=== PATIENT | female | born 1950 | race Caucasian/White ===

== ENCOUNTER 2017-05-28 10:41 | Day surgery (SDC) | payer MEDICARE, SELFPAY ==
[2017-05-28 11:19] VITALS: BP 169/75; PULSE 89; RESP 20; TEMP 37.3; O2SAT 96; BMI 43.7
[2017-05-28 11:46] LABS: Bedside Glucose 159 mg/dL (70-110)
--- NOTE | 2017-05-28 13:00 | COLBX_PTH ---
PATIENT: SAEID URBINA LOC: EN U#:[id number] AGE/SX: 66/F ROOM: RE05/28/[address]: Dr. Iona Azevedo MD : [id number] BED: DIS: 05/28/2017 SPEC #: [id number] RECD: 05/28/17 15:38 STATUS: CRYSTAL REMaykel #: [id number] TYLER: 05/28/17 13:[address]: Iona Azevedo DEPT: SURGICAL PATHOLOGY RECD BY: Yomi Carlin ENTERED: 05/29/17 09:26 SP TYPE: COLON BX OTHR DR: Dr. Yasemin Carney MD Tissues: Cecum, NOS Procedures: Surgery Specimen Level IV HEADER OPERATION: Colonoscopy PRE-OP DIAGNOSIS: Screening TISSUE SUBMITTED: Cecum polyp MICROSCOPIC DIAGNOSIS Cecal polyp, biopsy: Fragments of tubular adenoma. Fecal debris. AM:aniket 05/30/17 MICROSCOPIC DESCRIPTION Slides are reviewed. GROSS DESCRIPTION Received in fixative is one container labeled with the patient's name and designated cecal polyp. The specimen consists of multiple irregular fragments of light rodriguez soft tissue that in aggregate measure 1.5 x 0.5 x 0.1 cm. The specimen is totally submitted in one cassette. / AM:aniket 05/29/17 TC:5 CPT: 11209
[2017-05-28 13:31] VITALS: BP 131/66; BP 169/75; PULSE 97; RESP 18; TEMP 36.1; O2SAT 99
[2017-05-28 13:35] VITALS: BP 145/76; BP 169/75; PULSE 94; RESP 16; O2SAT 98
[2017-05-28 13:40] VITALS: BP 138/70; BP 169/75; PULSE 91; RESP 16; O2SAT 97
[2017-05-28 13:42] VITALS: BP 124/80; BP 169/75; PULSE 88; RESP 16; TEMP 36.8; O2SAT 99
[2017-05-28 14:27] VITALS: BP 169/75
--- NOTE | 2017-05-28 15:57 | OP.PCM_ITS ---
Report of Operation Date of Procedure: 05/28/17 Pre-Operative Diagnosis: history of colon polyps, family history of colon cancer in two first degree relatives (father and brother) (last colonoscopy 2012 ) Post-Operative Diagnosis: cecal polyp - pathology pending Surgery/Procedure Performed:: colonoscopy with polypectomy using hot loop cautery device Description of Surgical Findings:: poor colon cleansing preparation, tortuous colon, cecal polyp - 1 cm, diverticulosis, hemorrhoidal disease Type of Anesthesia:: MAC Anesthesiologist: El Cook Specimen's removed: cecal polyp Estimated Blood Loss (mL): minimal Fluids Replaced: see anesthesia note Description of Procedure: After informed consent was given, the patient was brought to the endoscopy suite and placed in the supine position. Appropriate time out protocol was followed. Appropriate cardiac, blood pressure, and pulse oximetry monitoring was placed. After stable vital signs were noted, the patient was given intravenous conscious sedation by the anesthesia provider. The patient was then placed in the left lateral decubitis position. The colonoscope was lubricated and carefully inserted into the patient?s anus. It was then advanced into the rectum, then into the sigmoid colon, then into the left descending colon, past the splenic flexure, into the transverse colon, past the hepatic flexure, then down into the right descending colon and into the cecum. The cecum was identified by: confluence of the tenae coli, identification of the ileocecal valve and appendiceal orifice. There was a semi-pedunculated polyp in the cecum which was removed completely using hot loop cautery device. It was about 1 cm in size. Of note, the colon cleansing preparation was poor. Despite copious lavage and aspiration of retained fecal material which took some time, polyps < 1 cm may be missed. Patient had a redundant, tortuous colon and is morbidly obese, also making reaching the cecum difficult, this required patient repositioning, pressure applied to the left lower quadrant of the abdomen and increased sedation. No further polyps were noted in the colon. There was no evidence of extrinsic compression and no inflammatory changes were noted. No intraluminal obstructing lesions, no strictures, and no ulcers were noted. Retroflex view in the rectum revealed no lesions in the rectal vault except for hemorrhoids. The colonoscope was removed intact. Patient tolerated procedure well. - Complications none noted
== END 2017-05-28 14:29 | disposition home or self-care (01) ==
LOC: EN 10:42 → ACINP 10:44
PROVIDERS: Family Provider Internal Medicine; PCP Internal Medicine; Visit Provider Surgery
PROC: 0DJD8ZZ Inspection of Lower Intestinal Tract, Via Natural or Artificial Opening Endoscopic (ICD-10-PCS; CPT 45378; principal; 2017-05-28 12:25)
DX: Z12.11 Encounter for screening for malignant neoplasm of colon (principal); D12.0 Benign neoplasm of cecum; K57.30 Diverticulosis of large intestine without perforation or abscess without bleeding; K64.9 Unspecified hemorrhoids; Q43.8 Other specified congenital malformations of intestine; Z86.010 Personal history of colon polyps; Z80.0 Family history of malignant neoplasm of digestive organs; E11.22 Type 2 diabetes mellitus with diabetic chronic kidney disease; I13.0 Hypertensive heart and chronic kidney disease with heart failure and stage 1 through stage 4 chronic kidney disease, or unspecified chronic kidney disease; N18.3 Chronic kidney disease, stage 3 (moderate); I50.9 Heart failure, unspecified; E66.01 Morbid (severe) obesity due to excess calories; E78.00 Pure hypercholesterolemia, unspecified; G47.33 Obstructive sleep apnea (adult) (pediatric); M06.9 Rheumatoid arthritis, unspecified; J44.9 Chronic obstructive pulmonary disease, unspecified; G43.909 Migraine, unspecified, not intractable, without status migrainosus; K21.9 Gastro-esophageal reflux disease without esophagitis; N28.1 Cyst of kidney, acquired; Z87.19 Personal history of other diseases of the digestive system; Z86.2 Personal history of diseases of the blood and blood-forming organs and certain disorders involving the immune mechanism; Z85.3 Personal history of malignant neoplasm of breast; Z92.3 Personal history of irradiation; Z90.49 Acquired absence of other specified parts of digestive tract; Z79.84 Long term (current) use of oral hypoglycemic drugs; Z79.82 Long term (current) use of aspirin; Z79.899 Other long term (current) drug therapy
CPT/HCPCS: 45384; 82962; 88305; J7120

== ENCOUNTER → 2017-05-31 12:35 | Outpatient (CLI) | payer MEDICARE, SELFPAY ==
[2017-05-31 13:45] LABS: Amphetamine Urine VISTA NEGATIVE (<1000 ng/mL); Barbiturate Urine VISTA NEGATIVE (< 200 ng/mL); Benzodiazepine Urine VISTA NEGATIVE (< 200 ng/mL); Cocaine Urine VISTA NEGATIVE (< 300 ng/mL); Ecstacy Urine VISTA NEGATIVE (< 500 ng/mL); Methadone Urine VISTA NEGATIVE (< 300 ng/mL); PCP Urine VISTA NEGATIVE (< 25 ng/mL); THC Urine VISTA NEGATIVE (< 50 ng/mL); Vista UDS pH Range 5
== END ==
PROVIDERS: Family Provider Internal Medicine; PCP Internal Medicine; Visit Provider Anesthesiology Pain Medicine
DX: F11.20 Opioid dependence, uncomplicated (principal)
CPT/HCPCS: 80307

== ENCOUNTER → 2017-06-05 15:07 | Outpatient (CLI) | payer MEDICARE, SELFPAY ==
[2017-06-05 18:10] LABS: Absolute Lymphocyte Count 1.25 X10^3/ul (0.83-4.51); Absolute Neutrophil Count 4.9 X10^3/uL (2.0-7.7); Basophil# 0.02 X10^3/uL; Basophil% 0.3 % (0-1); Eosinophil# 0.05 X10^3/uL; Eosinophils% 0.7 % (0-5); Hematocrit 39.6 % (37-47); Hemoglobin 12.9 g/dl (12.0-15.0); Lymphocyte # 1.25 X10^3/ul (4.0); Lymphocyte % 17.2 % (19-41); Mean Corp Hgb Conc 32.6 g/gl (32-36); Mean Corpuscular Hgb 30.6 pg (27.0-32.0); Mean Corpuscular Volume 93.8 fL (81-99); Mean Platelet Vol. 11.6 fl (6.2-12.0); Monocyte# 1.03 X10^3/uL; Monocyte% 14.2 % (0-10); Neutrophil # 4.86 X10^3/uL (2.7-7.7); Neutrophil % 66.8 % (47-70); Platelet Count 225 K/mm3 (150-450); RBC Distribution Width CV 13.4 % (11.6-14.6); RBC Distribution Width SD 44.7 fl (35.1-43.9); Red Blood Count 4.22 M/mm3 (4.2-5.4); White Blood Count 7.3 K/mm3 (4.4-11.0)
[2017-06-05 18:11] LABS: POSITIVE COUNT NO; POSITIVE DIFFERENTIAL NO; POSITIVE MORPHOLOGY NO
[2017-06-05 18:25] LABS: ALB/GLOB Ratio 1.1 RATIO (0.9-2.4); AST(SGOT) 23 U/L (15-37); Alanine Aminotransfer ALT/SGPT 26 U/L (13-56); Albumin, Serum 3.6 g/dL (3.2-5.0); Alkaline Phosphatase 91 U/L (45-117); Anion Gap 7 (5-15); BUN 25 mg/dL (7-18); BUN/Creat Ratio 19.8 RATIO (10-20); Calcium,Total 9.8 mg/dL (8.5-10.1); Chloride 108 mmol/L (98-107); Creatinine, Serum 1.26 mg/dL (0.55-1.02); EST Glomerular Filtration Rate 45 mL/min (>60); Est Glom Filt Rate - Afr Amer 54 mL/min (>60); Globulin 3.4 g/dL (2.2-4.2); Glucose 105 mg/dL (74-106); Potassium 4.2 mmol/L (3.5-5.1); Sodium Level 143 mmol/L (136-145)
== END ==
PROVIDERS: Family Provider Internal Medicine; PCP Internal Medicine; Visit Provider Internal Medicine Rheumatology
DX: M06.4 Inflammatory polyarthropathy (principal); Z79.899 Other long term (current) drug therapy; M79.7 Fibromyalgia; M15.9 Polyosteoarthritis, unspecified; M85.9 Disorder of bone density and structure, unspecified; M47.897 Other spondylosis, lumbosacral region; N18.9 Chronic kidney disease, unspecified; Z85.3 Personal history of malignant neoplasm of breast
CPT/HCPCS: 36415; 80053; 85025

== ENCOUNTER → 2017-07-25 12:51 | Outpatient (CLI) | payer MEDICARE, SELFPAY ==
--- NOTE | 2017-07-25 13:07 | MRI_ITS ---
STUDY: MRI LUMBAR SPINE WITHOUT CONTRAST REASON FOR EXAM: Female, 66 years old. Lower back pain TECHNIQUE: Standardized fat and water weighted pulse sequences were obtained in the sagittal and axial planes. COMPARISON: None FINDINGS: T12-L1: Normal endplates. Normal disc height, hydration and morphology. Normal bilateral facet joints. Normal central canal and bilateral lateral recesses. Normal bilateral intervertebral neural foramina. Normal lumbar lordosis. There is no substantial scoliosis. Normal conus medullaris that terminates at the L1 level. L1-2: Normal endplates. Normal disc height, hydration and morphology. Normal bilateral facet joints. Normal central canal and bilateral lateral recesses. Normal bilateral intervertebral neural foramina. L2-3: Endplate spondylosis. Decreased disc height and moderate circumferential disc bulge. Degenerative changes of the bilateral facet joints. Moderate narrowing of the central canal and bilateral intervertebral neural foramina. L3-4: Endplate spondylosis. Decreased disc height and moderate circumferential disc bulge. Degenerative changes of the bilateral facet joints. Moderate narrowing of the central canal and bilateral intervertebral neural foramina. L4-5: Endplate spondylosis. Decreased disc height and large circumferential disc bulge. Degenerative changes of the bilateral facet joints. 7 mm spondylolisthesis. Severe narrowing of the central canal and bilateral intervertebral neural foramina. L5-S1: Endplate spondylosis. Decreased disc height and moderate circumferential disc bulge. Degenerative changes of the bilateral facet joints. Mild narrowing of the central canal and bilateral intervertebral neural foramina. Normal visualized sacral ala. There are multiple bilateral parapelvic renal cysts. MRI/Spine Lumbar (Routine) IMPRESSION: Multilevel degenerative changes, as described above. Electronically Signed: Dg Marroquin MD at 7:52 EDT Tel , Service support ,
== END ==
PROVIDERS: Family Provider Internal Medicine; PCP Internal Medicine; Visit Provider Anesthesiology Pain Medicine
DX: M54.5 Low back pain (principal); M79.606 Pain in leg, unspecified
CPT/HCPCS: 72148

== ENCOUNTER → 2017-08-24 15:45 | Outpatient (CLI) | payer MEDICARE, SELFPAY ==
[2017-08-24 17:41] LABS: Absolute Lymphocyte Count 1.07 X10^3/ul (0.83-4.51); Absolute Neutrophil Count 8.4 X10^3/uL (2.0-7.7); Basophil# 0.01 X10^3/uL; Basophil% 0.1 % (0-1); Hematocrit 42.5 % (37-47); Hemoglobin 13.7 g/dl (12.0-15.0); Lymphocyte # 1.07 X10^3/ul (4.0); Lymphocyte % 10.2 % (19-41); Mean Corp Hgb Conc 32.2 g/gl (32-36); Mean Corpuscular Hgb 29.8 pg (27.0-32.0); Mean Corpuscular Volume 92.6 fL (81-99); Mean Platelet Vol. 11.1 fl (6.2-12.0); Monocyte# 0.91 X10^3/uL; Monocyte% 8.7 % (0-10); Neutrophil # 8.39 X10^3/uL (2.7-7.7); Neutrophil % 80.4 % (47-70); Platelet Count 253 K/mm3 (150-450); RBC Distribution Width CV 12.9 % (11.6-14.6); RBC Distribution Width SD 43.3 fl (35.1-43.9); Red Blood Count 4.59 M/mm3 (4.2-5.4); White Blood Count 10.4 K/mm3 (4.4-11.0)
[2017-08-24 17:45] LABS: POSITIVE COUNT NO; POSITIVE DIFFERENTIAL NO; POSITIVE MORPHOLOGY NO
[2017-08-24 17:57] LABS: AST(SGOT) 19 U/L (15-37); Alanine Aminotransfer ALT/SGPT 28 U/L (13-56); Alkaline Phosphatase 92 U/L (45-117); Anion Gap 8 (5-15); BUN 25 mg/dL (7-18); BUN/Creat Ratio 19.8 RATIO (10-20); Calcium,Total 10.7 mg/dL (8.5-10.1); Chloride 104 mmol/L (98-107); Creatinine, Serum 1.26 mg/dL (0.55-1.02); EST Glomerular Filtration Rate 45 mL/min (>60); Est Glom Filt Rate - Afr Amer 54 mL/min (>60); Globulin 3.9 g/dL (2.2-4.2); Glucose 128 mg/dL (74-106); Potassium 4.4 mmol/L (3.5-5.1); Protein, Total 7.9 g/dL (6.4-8.2); Sodium Level 140 mmol/L (136-145)
== END ==
PROVIDERS: Family Provider Internal Medicine; PCP Internal Medicine; Visit Provider Internal Medicine Rheumatology
DX: M06.4 Inflammatory polyarthropathy (principal); Z79.899 Other long term (current) drug therapy; M79.7 Fibromyalgia; M15.9 Polyosteoarthritis, unspecified; M85.9 Disorder of bone density and structure, unspecified; M47.897 Other spondylosis, lumbosacral region; N18.9 Chronic kidney disease, unspecified; Z85.3 Personal history of malignant neoplasm of breast
CPT/HCPCS: 36415; 80053; 85025

== ENCOUNTER → 2017-09-10 13:05 | Outpatient (CLI) | payer MEDICARE, SELFPAY ==
[2017-09-10 14:07] LABS: ALB/GLOB Ratio 0.9 RATIO (0.9-2.4); AST(SGOT) 18 U/L (15-37); Alanine Aminotransfer ALT/SGPT 23 U/L (13-56); Albumin, Serum 3.5 g/dL (3.2-5.0); Alkaline Phosphatase 67 U/L (45-117); Anion Gap 5 (5-15); BUN 30 mg/dL (7-18); BUN/Creat Ratio 19.7 RATIO (10-20); Calcium,Total 9.6 mg/dL (8.5-10.1); Chloride 107 mmol/L (98-107); Creatinine, Serum 1.52 mg/dL (0.55-1.02); EST Glomerular Filtration Rate 36 mL/min (>60); Est Glom Filt Rate - Afr Amer 44 mL/min (>60); Globulin 3.7 g/dL (2.2-4.2); Glucose 98 mg/dL (74-106); Potassium 4.4 mmol/L (3.5-5.1); Protein, Total 7.2 g/dL (6.4-8.2); Sodium Level 140 mmol/L (136-145)
[2017-09-10 14:11] LABS: PTHIN 114.8 pg/mL (18.4-80.1)
== END ==
PROVIDERS: Family Provider Internal Medicine; PCP Internal Medicine; Visit Provider Internal Medicine Rheumatology
DX: M06.4 Inflammatory polyarthropathy (principal); Z79.899 Other long term (current) drug therapy; M79.7 Fibromyalgia; M15.9 Polyosteoarthritis, unspecified; M85.9 Disorder of bone density and structure, unspecified; M47.897 Other spondylosis, lumbosacral region; N18.9 Chronic kidney disease, unspecified; Z85.3 Personal history of malignant neoplasm of breast
CPT/HCPCS: 36415; 80053; 83970

== ENCOUNTER → 2017-10-02 14:12 | Outpatient (CLI) | payer MEDICARE, SELFPAY | PROVIDERS: Family Provider Internal Medicine; PCP Internal Medicine; Visit Provider Orthopaedic Surgery | DX: M54.5 Low back pain (principal) | CPT/HCPCS: 72110 ==

== ENCOUNTER → 2017-10-17 16:34 | Outpatient (CLI) | payer MEDICARE, SELFPAY ==
[2017-10-17 17:27] LABS: Absolute Lymphocyte Count 1.38 X10^3/ul (0.83-4.51); Absolute Neutrophil Count 3.5 X10^3/uL (2.0-7.7); Basophil# 0.02 X10^3/uL; Basophil% 0.3 % (0-1); Eosinophil# 0.09 X10^3/uL; Eosinophils% 1.5 % (0-5); Hematocrit 42.2 % (37-47); Hemoglobin 13.7 g/dl (12.0-15.0); Lymphocyte # 1.38 X10^3/ul (4.0); Lymphocyte % 23.4 % (19-41); Mean Corp Hgb Conc 32.5 g/gl (32-36); Mean Corpuscular Hgb 30.2 pg (27.0-32.0); Mean Platelet Vol. 11.4 fl (6.2-12.0); Monocyte# 0.85 X10^3/uL; Monocyte% 14.4 % (0-10); Neutrophil % 59.4 % (47-70); Platelet Count 222 K/mm3 (150-450); RBC Distribution Width CV 13.4 % (11.6-14.6); RBC Distribution Width SD 44.2 fl (35.1-43.9); Red Blood Count 4.54 M/mm3 (4.2-5.4); White Blood Count 5.9 K/mm3 (4.4-11.0)
[2017-10-17 17:31] LABS: POSITIVE COUNT NO; POSITIVE DIFFERENTIAL NO; POSITIVE MORPHOLOGY NO
[2017-10-17 18:23] LABS: AST(SGOT) 27 U/L (15-37); Alanine Aminotransfer ALT/SGPT 35 U/L (13-56); Albumin, Serum 3.6 g/dL (3.2-5.0); Alkaline Phosphatase 82 U/L (45-117); Anion Gap 7 (5-15); BUN 21 mg/dL (7-18); BUN/Creat Ratio 14.8 RATIO (10-20); Calcium,Total 9.8 mg/dL (8.5-10.1); Chloride 106 mmol/L (98-107); Creatinine, Serum 1.42 mg/dL (0.55-1.02); EST Glomerular Filtration Rate 39 mL/min (>60); Est Glom Filt Rate - Afr Amer 47 mL/min (>60); Globulin 3.5 g/dL (2.2-4.2); Glucose 100 mg/dL (74-106); Potassium 3.8 mmol/L (3.5-5.1); Protein, Total 7.1 g/dL (6.4-8.2); Sodium Level 140 mmol/L (136-145)
== END ==
PROVIDERS: Family Provider Internal Medicine; PCP Internal Medicine; Visit Provider Internal Medicine Rheumatology
DX: M06.4 Inflammatory polyarthropathy (principal); Z79.899 Other long term (current) drug therapy; M79.7 Fibromyalgia; M15.9 Polyosteoarthritis, unspecified; M85.9 Disorder of bone density and structure, unspecified; M47.897 Other spondylosis, lumbosacral region; N18.9 Chronic kidney disease, unspecified; Z85.3 Personal history of malignant neoplasm of breast
CPT/HCPCS: 36415; 80053; 85025

== ENCOUNTER 2017-12-26 11:00 | Outpatient (RCR) | payer MEDICARE, SELFPAY ==
--- NOTE | 2017-10-11 13:10 | HP.PTEVAL_ITS ---
Patient's Visit Information SAEID URBINA is a 66 year old F referred to Physical Therapy by Mary Victoria with a diagnosis of LUMBAR SPINAL STENOSIS. Date of Evaluation: 10/11/17 Physical Therapist: Arina Bocanegra - Visit Plan Frequency: 2-3x /Week Duration: 4-6 Weeks Plan: PATIENT REPORTS SHE THINKS SHE CAN MANAGE 2X'S A WEEK RIGHT NOW. AQUATIC THERAPY FOR PAIN RELEIF, POSTURE CORRECTION/STRENGTHENING, INSTRUCTION IN APPROPRIATE BODY MECHANICS AND ACTIVITY MODIFICATIONS. DLS STARTING WITH A NEUTRAL SPINE PROGRESSING ROM TOLERATED. HAKAN LE ROM, STRETCHING AND STRENGTHENING. HEP INSTRUCTION. - Subjective Subjective: Work/Leisure: RETIRED. Disability: NO. Present symptoms: LOW BACK PAIN. HAKAN LE WEAKNESS. Present since: YEARS. Pain Scale: WORST 10/10, LEAST 0/10. Currently: 05/15. Commenced as a result of: ARTHRITIS. Symptoms at onset: BACK. Worse: TWISTING, STANDING UP REALLY STRAIGHT, WALKING, STANDING, PUSHING ON BACK, TRYING TO SLEEP IN THE BED. Better: RECLINER, HEATING PAD, HANGING IN DEEP END IN POOL IN PAST, MORPHINE. Disturbed sleep: YES. Previous history/Previous treatment: POOL THERAPY, LAND PT, PAIN MGMT INJECTIONS WITH ONE PENDING NEXT SUNDAY (SHOT 6-8 WEEKS AGO WTIH ABOUT ONE WEEK OF RELEIF). PATEINT REPORTS THE INSURANCE IS CONSIDERING RADIOFREQUENCY ABLATION. NO BACK SURGERY. CONSULT WITH DR VICTORIA - FOLLOW UP IN TWO MONTHS. PATIENT REPORTS DR. VICTORIA IS CONSIDERING RECOMMENDING SURGERY. SHE WANTS HER TO TRY PT AND WANTS HER TO LOSE MORE WEIGHT. PATIENT REPORTS SHE HAS LOST 20 LBS IN 6 MONTHS. Coughing/sneezing/straining: POSITIVE. Gait: INDEP GAIT SHORT DISTANCES WITH ROLLATOR OR CANE. HAS TO LEAN FORWARD. Difficulty initiating urinatin: NO. Accidents: NO FALLS. NO MAJOR ACCIDENTS. Unexplained weight loss: NO. Imaging: SEE [facility] EMR FOR RECENT LUMBAR X-RAYS AND MRI. PMH/Recent major surgery: SEE RECENT HISTORY AND PHYSICAL WITH DR. VICTORIA IN [facility] EMR AND INFO BELOW. OTHER: PATIENT REPORTS SHE REALLY ISN'T GETTING OUT MUCH OTHER THAN GOING TO MEDICAL APPOINTMENTS. - Objective Sitting/Standing Posture: POOR. SLOUCHED. FORWARD HEAD. ROUNDED SHOULDERS. Lordosis: REDUCED. Lateral shift: NO. Relevant shift: N/A. Active Correction of posture: WORSE. Other Observations: INDEP GAIT INTO PT WITH A ROLLATOR X APPROX 300 FEET. PATIENT WALKS WITH INCREASED TRUNK FLEXION AND STARTS TO REALLY LEAN OVER ON THE WALKER ABOUT 1/2 WAY BACK TO PT. SHE WALKS WITH DECREASED CADANCE AND DECREASED HAKAN STRIDE LENGTH. SHE WALKED A LITTLE BIT IN THE TREATMENT ROOM WITHOUT HER WALKER AND SHE COULD BEARELY PUT ONE FOOT IN FRONT OF THE OTHER. Motor deficit: HAKAN LE STRENGTH 5/5 WITH MMT'ING EXCEPT HIPS GRADED 4-/5. Sensory deficit: HAKAN LE LIGHT TOUCH SENSATION APPEARS TO BE INTACT AND SYMMETRICAL BUT FEET NT. ROM deficit: TIGHT HAKAN HIP FLEXORS, HAMSTRINGS AND GASTROC SOLEUS COMPLEX'S. Reflexes: UNABLE TO ELICIT HAKAN LE DTR 'S. Dural Signs: NEGATIVE HAKAN LE DURAL SIGNS. Lumbar mvmt loss: flex - MIN. ext - RADHA. R SG - RADHA. L SG - RADHA. PATIENT HAS C/O INCRASED PAIN WITH LUMBAR ROM TESTING ALL PLANES. Core strength: POOR. Palpation: TENDERNESS WITH LIGHT PALPATION OF LOWER THORACIC, LUMBAR AND SACRAL AREAS CENTRALLY AND INTO PARASPINALS. OTHER: GOOD RESPONSE TO LUMBAR SUPPORT IN SITTING IN CLINIC TODAY. - Goals Goal 1:: DECREASE C/O LBP Goal Time Frame: 4-6 Weeks Goal 2:: IMPROVE STANDING AND WALKING AND SLEEPING IN THE BED FUNCTION Goal Time Frame: 4-6 Weeks Goal 3:: INSTRUCT IN PROPHYLAXIS Goal Time Frame: 4-6 Weeks - Rehabilitation Potential Rehabilitation Potential: Fair - Anticipated Interventions Patient/Client Instruction: Educate patient on: Condition, Plan of Care, Risk Factors, Benefits of Fitness Program For the Purpose of:: To improve self management Therapeutic Exercise to Include: Strength training, Body mechanics, Postural training, Flexibilty training, Gait and locomotor training, In an aquatic setting, Active ROM, Dynamic Lumbar Stabilization For the Purpose of:: To decrease pain, To increase ROM, To improve muscle performance and motor function, To increase tolerance to activity/condition/ position, To improve performance and independence with ADL's, To improve ability of physical actions for home/community/work/leisure, To improve gait and locomotor functions Thank you for the opportunity to evaluate your patient. For Medicare and Medicare HMO plans, please review the plan of care and approve it. It will need to be FAXED BACK to us at [phone] for Medicare purposes. Please let me know if there are questions or concerns regarding this plan of care. Physician Signature: Date:
--- NOTE | 2017-11-19 16:38 | HP.PTREVAL_ITS ---
Mary Amin, It has been my pleasure to treat SAEID URBINA over the last 10 visits for LUMBAR SPINAL STENOSIS. Please see the progress note below for an update on the physical therapy plan of care! Subjective: PATIENT REPORTS RADIOFREQUENCY ABLATION HAS BEEN APPROVED AND SHE IS SCHEDULED TO HAVE IT DONE TOMORROW. PATIENT REPORTS THE WATER THERAPY HAS ABSOLUTELY BEEN HELPING. SHE REPORTS HER LAST SHOT HELPED A GOOD TWO WEEKS. IF SHE COMES TO PT FEELING BAD AND HAVING A HARD TIME MOVING ONCE SHE COMPLETED AN AQUATIC SESSION HER PAIN WAS LESS AND SHE COULD MOVE BETTER. PATIENT REPORTS SHE CAN GET TO THE BATHROOM QUICKER NOW. ALSO STATES SHE HAS EVEN BEEN ABLE TO DO A LITTLE LAUNDRY AND EVEN STRAIGHTEN UP AROUND THE HOUSE A LITTLE BIT. SHE REPORTS HER DAUGHTER WAS HELPING HER WITH THE LAUNDRY BEFORE BUT SHE WAS ABLE TO DO IT. HAS ALSO DONE SOME DRIVING. GETTING IN AND OUT OF THE CAR IS EASIER TO FAR GETTING HER LEGS IN/OUT. I ACTUALLY GOT OUT AND GOT THE MAIL A COUPLE TIMES. PATIENT REPORTS SHE ALSO ACTUALLY HAS STARTED TO BE ABLE TO ATTEND SOME REUNION MEETINGS SINCE STARTING PT AND ABLE TO DO THE STEPS AT THE HOUSE THE MEETING WAS HELD. BACK PAIN IS RANGING 2/10 TO 8/10 NOW. Objective/Function: PATIENT IS MAKING SLOW PROGRESS TOWARD ALL PT GOALS. PATIENT AGAIN DEMONSTRATES INDEP GAIT INTO PT WITH A ROLLATOR X APPROX 300 FEET. PATIENT WALKS WITH INCREASED TRUNK FLEXION BUT SHE IS NOW MORE ERECT THAN AT INITIAL EVAL, AND STARTS TO REALLY LEAN OVER ON THE WALKER ABOUT 1/2 WAY BACK TO PT. SHE WALKS WITH DECREASED CADANCE AND DECREASED HAKAN STRIDE LENGTH. SHE STILL HAS GREAT DIFFICULTY ADVANCING LE'S WITHOUT AD BUT THIS HAS ALSO IMPROVED SINCE EVAL. Motor deficit: HAKAN LE STRENGTH 5/5 WITH MMT'ING EXCEPT HIPS GRADED 4-/5. Sensory deficit: HAKAN LE LIGHT TOUCH SENSATION APPEARS TO BE INTACT AND SYMMETRICAL BUT FEET NT. ROM deficit: TIGHT HAKAN HIP FLEXORS, HAMSTRINGS AND GASTROC SOLEUS COMPLEX'S. Dural Signs: NEGATIVE HAKAN LE DURAL SIGNS. Lumbar mvmt loss: flex - NIL. ext - RADHA. R SG - RADHA. L SG - RADHA. PATIENT HAS C/O INCRASED PAIN WITH LUMBAR ROM TESTING INTO HAKAN SB AND A LITTLE BIT WITH POSTURE CORRECTION BUT NOT FLEX. Core strength: POOR. Palpation: NO ACUTE TENDERNESS WITH PALPATION OF THORACIC OR LUMBAR REGION NOW. PATIENT IS NOW ABLE TO TRANSFER INDEP'LY FROM SIT TO STAND WITHOUT UE ASSIST. OSWESTRY SCORE HAS ALSO IMPROVED Plan Plan: DECREASE AQUATIC THERAPY TO 1X/WEEK WITH PATIENT TRANSITIONING TO INDEP WATER EX 1-2 TIMES A WEEK ON HER OWN HERE AT [facility] WITH KARINA NELSON. CONT PER ORIGINAL POC WORKING TOWARD SAME GOALS. Goals Goal 1:: DECREASE C/O LBP Goal Time Frame: 4-6 Weeks Goal 2:: IMPROVE STANDING AND WALKING AND SLEEPING IN THE BED FUNCTION Goal Time Frame: 4-6 Weeks Goal 3:: INSTRUCT IN PROPHYLAXIS Goal Time Frame: 4-6 Weeks Anticipated Interventions Patient/Client Instruction: Educate patient on: Condition, Plan of Care, Risk Factors, Benefits of Fitness Program For the Purpose of:: To improve self management Therapeutic Exercise to Include: Strength training, Body mechanics, Postural training, Flexibilty training, Gait and locomotor training, In an aquatic setting, Active ROM, Dynamic Lumbar Stabilization For the Purpose of:: To decrease pain, To increase ROM, To improve muscle performance and motor function, To increase tolerance to activity/condition/position, To improve performance and independence with ADL's, To improve ability of physical actions for home/community/work/leisure, To improve gait and locomotor functions Please do not hesitate to contact me at [phone] by phone or if you have questions or concerns regarding this new plan of care! Sincerely, Arina Bocanegra
--- NOTE | 2017-12-26 11:33 | HP.PTDCSUM_ITS ---
HP - PT D/C Summary It has been my pleasure to treat SAEID URBINA under orders from Mary Amin, for the diagnosis of LUMBAR SPINAL STENOSIS for a total of 15 visit(s). Discharge Date: 12/26/17 Please see the following information for a summary of their discharge status. - Subjective Subjective: PATIENT REPORTS SHE IS A LOT BETTER. REPORTS SHE HAS BENEFITED FROM THE NEW EX'S SHE HAS BEEN ABLE TO LEARN OVER THE LAST FEW SESSIONS. AT FOLLOW UP WITH DR. AMIN PATIENT STATES DR. AMIN WAS REALLY PLEASED WITH THE PROGRESS SHE HAS MADE AND TOLD HER SHE LOOKS REALLY GOOD. DR. AMIN TOLD HER TO CONTINUE WITH HER WATER EX'S AND SEE HER AGAIN ONLY IF NEEDED. PATIENT REPORTS SHE WAS ABLE TO DO A WATER EX SESSION ON HER OWN WITH HER [employer] MEMBERSHIP AND IT WENT WELL. SAW DR. BROWN YESTERDAY AND WAS PRESCRIBED A CREAM FOR HER KNEES. LOW BACK PAIN NOW RANGES FROM 0/10 TO 4/10. - Pain Lumbar Spine Pain Intensity (Out of 10): 2 BLAT knees Pain Intensity (Out of 10): 6 - Overall Improvement % Improvement: 90 - Objective Objective/Function: ALL GOALS MET. PATIENT NOW HAS SOME PAINFREE TIME WITH HER BACK AND HER FUNCTION HAS IMPROVED. SHE ACTUALLY HAS SOME INCREASED LUMBAR ROM WHICH IS SOMEWHAT A SURPRISE. SHE IS INDEP WITH A POOL PROGRAM THAT SHE PLANS TO CONTINUE INDEP'LY WITH HER [employer] MEMBERSHIP. PATIENT DEMONSTRATES INDEP GAIT INTO PT WITH A FWW TODAY X APPROX 300 FEET. THIS IS NOT THE USUAL WALKER SHE COMES TO PT WITH AND IT IS A LITTLE TO HIGH. ADJUSTED FOR APPROPRIATE FIT. PATIENT WALKS WITH INCREASED TRUNK FLEXION BUT SHE IS NOW MORE ERECT THAN AT INITIAL EVAL, BUT STILL STARTS TO REALLY LEAN OVER ON THE WALKER ABOUT 1/2 WAY BACK TO PT. SHE WALKS WITH DECREASED CADANCE AND DECREASED HAKAN S TRIDE LENGTH. SHE STILL HAS DIFFICULTY ADVANCING LE'S WITHOUT AD BUT THIS HAS IMPROVED EVEN SINCE LAST RE-CHECK. Motor deficit: HAKAN LE STRENGTH 5/5 WITH MMT'ING EXCEPT HIPS GRADED 4/5. Sensory deficit: HAKAN LE LIGHT TOUCH SENSATION APPEARS TO BE INTACT AND SYMMETRICAL BUT FEET NT. Dural Signs: NEGATIVE HAKAN LE DURAL SIGNS. Lumbar mvmt loss: flex - NIL. ext - MOD TO RADHA. R SG - MOD TO RADHA. L SG - MOD TO RADHA. PATIENT HAS DENIES INCRASED PAIN WITH LUMBAR ROM TESTING ALL PLANES BUT SHE JUST FEELS MORE OF A STRETCH. Core strength: POOR. Palpation: NO ACUTE TENDERNESS WITH PALPATION OF THORACIC OR LUMBAR REGION NOW. INDEP TRANSFER FROM SIT TO STAND WITHOUT UE ASSIST. OSWESTRY SCORE HAS ALSO IMPROVED FROM 32 AT EVAL THEN 28 LAST RE-CHECK NOW IT IS 23. - Goals Goal 1:: DECREASE C/O LBP Goal Progress: Goal Met Goal 2:: IMPROVE STANDING AND WALKING AND SLEEPING IN THE BED FUNCTION Goal Progress: Goal Met Goal 3:: INSTRUCT IN PROPHYLAXIS Goal Progress: Goal Met - Plan Plan: D/C - D/C Information If there are questions or concerns regarding this patient's physical therapy, please feel free to call me at [phone]. Thank you for the referral of this patient. Sincerely, Arina Bocanegra
== END 2017-12-26 18:50 | disposition home or self-care (01) ==
LOC: PT 11:00
PROVIDERS: Family Provider Internal Medicine; PCP Internal Medicine; Visit Provider Orthopaedic Surgery
DX: M48.061 Spinal stenosis, lumbar region without neurogenic claudication (principal); M06.4 Inflammatory polyarthropathy; M79.7 Fibromyalgia; M15.9 Polyosteoarthritis, unspecified; M85.9 Disorder of bone density and structure, unspecified; M47.897 Other spondylosis, lumbosacral region; N18.9 Chronic kidney disease, unspecified; Z85.3 Personal history of malignant neoplasm of breast; Z79.899 Other long term (current) drug therapy
CPT/HCPCS: 36415; 80053; 85025; 97113; 97163; 97164; 97530

== ENCOUNTER → 2018-01-11 14:23 | Outpatient (CLI) | payer MEDICARE, SELFPAY ==
[2018-01-11 16:14] LABS: Absolute Lymphocyte Count 1.19 X10^3/ul (0.83-4.51); Absolute Neutrophil Count 2.8 X10^3/uL (2.0-7.7); Basophil# 0.03 X10^3/uL; Basophil% 0.6 % (0-1); Eosinophil# 0.11 X10^3/uL; Eosinophils% 2.2 % (0-5); Hematocrit 44.2 % (37-47); Hemoglobin 14.4 g/dl (12.0-15.0); Lymphocyte # 1.19 X10^3/ul (4.0); Lymphocyte % 23.7 % (19-41); Mean Corp Hgb Conc 32.6 g/gl (32-36); Mean Corpuscular Hgb 30.1 pg (27.0-32.0); Mean Corpuscular Volume 92.3 fL (81-99); Mean Platelet Vol. 11.8 fl (6.2-12.0); Monocyte# 0.82 X10^3/uL; Monocyte% 16.3 % (0-10); Neutrophil # 2.84 X10^3/uL (2.7-7.7); Neutrophil % 56.4 % (47-70); Platelet Count 216 K/mm3 (150-450); RBC Distribution Width CV 13.7 % (11.6-14.6); RBC Distribution Width SD 45.3 fl (35.1-43.9); Red Blood Count 4.79 M/mm3 (4.2-5.4)
[2018-01-11 16:28] LABS: POSITIVE COUNT NO; POSITIVE DIFFERENTIAL NO; POSITIVE MORPHOLOGY NO
[2018-01-11 16:47] LABS: AST(SGOT) 28 U/L (15-37); Alanine Aminotransfer ALT/SGPT 27 U/L (13-56); Albumin, Serum 3.5 g/dL (3.2-5.0); Alkaline Phosphatase 86 U/L (45-117); Anion Gap 8 (5-15); BUN 23 mg/dL (7-18); BUN/Creat Ratio 17.8 RATIO (10-20); Calcium,Total 9.5 mg/dL (8.5-10.1); Chloride 105 mmol/L (98-107); Creatinine, Serum 1.29 mg/dL (0.55-1.02); EST Glomerular Filtration Rate 44 mL/min (>60); Est Glom Filt Rate - Afr Amer 53 mL/min (>60); Globulin 3.6 g/dL (2.2-4.2); Glucose 104 mg/dL (74-106); Potassium 4.1 mmol/L (3.5-5.1); Protein, Total 7.1 g/dL (6.4-8.2); Sodium Level 142 mmol/L (136-145); T4 Free Direct 1.06 ng/dL (0.76-1.46); Thyroid Stim Hormone (TSH) 1.65 uIU/mL (0.358-3.74)
== END ==
PROVIDERS: Family Provider Internal Medicine; PCP Internal Medicine; Referring Provider Internal Medicine Rheumatology; Visit Provider Internal Medicine Rheumatology
DX: M06.4 Inflammatory polyarthropathy (principal); Z79.899 Other long term (current) drug therapy; M79.7 Fibromyalgia; M15.9 Polyosteoarthritis, unspecified; M47.897 Other spondylosis, lumbosacral region
CPT/HCPCS: 36415; 80053; 84439; 84443; 85025

== ENCOUNTER → 2018-02-18 14:38 | Outpatient (CLI) | payer MEDICARE, SELFPAY ==
[2018-02-18 16:01] LABS: Amphetamine Urine VISTA NEGATIVE (<1000 ng/mL); Barbiturate Urine VISTA NEGATIVE (< 200 ng/mL); Benzodiazepine Urine VISTA NEGATIVE (< 200 ng/mL); Cocaine Urine VISTA NEGATIVE (< 300 ng/mL); Ecstacy Urine VISTA NEGATIVE (< 500 ng/mL); Methadone Urine VISTA NEGATIVE (< 300 ng/mL); PCP Urine VISTA NEGATIVE (< 25 ng/mL); THC Urine VISTA NEGATIVE (< 50 ng/mL); Vista UDS pH Range 5
== END ==
PROVIDERS: Family Provider Internal Medicine; PCP Internal Medicine; Referring Provider Anesthesiology Pain Medicine; Visit Provider Anesthesiology Pain Medicine
DX: F11.20 Opioid dependence, uncomplicated (principal)
CPT/HCPCS: 80307

== ENCOUNTER → 2018-04-15 15:44 | Outpatient (CLI) | payer MEDICARE, SELFPAY ==
[2018-04-15 17:31] LABS: Absolute Neutrophil Count 3.3 X10^3/uL (2.0-7.7); Basophil# 0.03 X10^3/uL; Basophil% 0.6 % (0-1); Eosinophil# 0.11 X10^3/uL; Hematocrit 40.5 % (37-47); Hemoglobin 12.7 g/dl (12.0-15.0); Lymphocyte % 20.3 % (19-41); Mean Corp Hgb Conc 31.4 g/gl (32-36); Mean Corpuscular Hgb 29.1 pg (27.0-32.0); Mean Corpuscular Volume 92.9 fL (81-99); Mean Platelet Vol. 11.2 fl (6.2-12.0); Monocyte# 0.88 X10^3/uL; Monocyte% 16.2 % (0-10); Neutrophil # 3.26 X10^3/uL (2.7-7.7); Neutrophil % 60.2 % (47-70); Platelet Count 207 K/mm3 (150-450); RBC Distribution Width CV 14.2 % (11.6-14.6); RBC Distribution Width SD 46.6 fl (35.1-43.9); Red Blood Count 4.36 M/mm3 (4.2-5.4); White Blood Count 5.4 K/mm3 (4.4-11.0)
[2018-04-15 17:33] LABS: POSITIVE COUNT NO; POSITIVE DIFFERENTIAL NO; POSITIVE MORPHOLOGY NO
[2018-04-15 17:43] LABS: AST(SGOT) 27 U/L (15-37); Alanine Aminotransfer ALT/SGPT 32 U/L (13-56); Albumin, Serum 3.4 g/dL (3.2-5.0); Alkaline Phosphatase 82 U/L (45-117); Anion Gap 5 (5-15); BUN 26 mg/dL (7-18); Chloride 110 mmol/L (98-107); Creatinine, Serum 1.18 mg/dL (0.55-1.02); EST Glomerular Filtration Rate 48 mL/min (>60); Est Glom Filt Rate - Afr Amer 58 mL/min (>60); Globulin 3.4 g/dL (2.2-4.2); Glucose 121 mg/dL (74-106); Potassium 4.3 mmol/L (3.5-5.1); Protein, Total 6.8 g/dL (6.4-8.2); Sodium Level 142 mmol/L (136-145)
== END ==
PROVIDERS: Family Provider Internal Medicine; PCP Internal Medicine; Referring Provider Internal Medicine Rheumatology; Visit Provider Internal Medicine Rheumatology
DX: M06.4 Inflammatory polyarthropathy (principal); Z79.899 Other long term (current) drug therapy; M79.7 Fibromyalgia; M15.9 Polyosteoarthritis, unspecified
CPT/HCPCS: 36415; 80053; 85025

== ENCOUNTER → 2018-07-15 | Outpatient (CLI) | payer MEDICARE, SELFPAY ==
[2018-07-15 17:20] LABS: Absolute Lymphocyte Count 1.34 X10^3/ul (0.83-4.51); Absolute Neutrophil Count 4.1 X10^3/uL (2.0-7.7); Basophil# 0.04 X10^3/uL; Basophil% 0.6 % (0-1); Eosinophils% 1.5 % (0-5); Hemoglobin 13.1 g/dl (12.0-15.0); Lymphocyte # 1.34 X10^3/ul (4.0); Lymphocyte % 20.2 % (19-41); Mean Corpuscular Hgb 28.8 pg (27.0-32.0); Mean Corpuscular Volume 90.1 fL (81-99); Mean Platelet Vol. 11.5 fl (6.2-12.0); Monocyte# 1.01 X10^3/uL; Monocyte% 15.2 % (0-10); Neutrophil # 4.09 X10^3/uL (2.7-7.7); Neutrophil % 61.7 % (47-70); Platelet Count 196 K/mm3 (150-450); RBC Distribution Width SD 46.1 fl (35.1-43.9); Red Blood Count 4.55 M/mm3 (4.2-5.4); White Blood Count 6.6 K/mm3 (4.4-11.0)
[2018-07-15 17:31] LABS: POSITIVE COUNT NO; POSITIVE DIFFERENTIAL NO; POSITIVE MORPHOLOGY NO
[2018-07-15 17:39] LABS: ALB/GLOB Ratio 0.9 RATIO (0.9-2.4); AST(SGOT) 33 U/L (15-37); Alanine Aminotransfer ALT/SGPT 37 U/L (13-56); Albumin, Serum 3.3 g/dL (3.2-5.0); Alkaline Phosphatase 79 U/L (45-117); Anion Gap 10 (5-15); BUN 27 mg/dL (7-18); Calcium,Total 9.4 mg/dL (8.5-10.1); Chloride 107 mmol/L (98-107); Creatinine, Serum 1.59 mg/dL (0.55-1.02); EST Glomerular Filtration Rate 34 mL/min (>60); Est Glom Filt Rate - Afr Amer 41 mL/min (>60); Globulin 3.6 g/dL (2.2-4.2); Glucose 165 mg/dL (74-106); Potassium 4.4 mmol/L (3.5-5.1); Protein, Total 6.9 g/dL (6.4-8.2); Sodium Level 142 mmol/L (136-145)
== END | disposition home or self-care (01) ==
LOC: MTLAB 16:24
PROVIDERS: Family Provider Internal Medicine; PCP Internal Medicine; Referring Provider Internal Medicine Rheumatology; Visit Provider Internal Medicine Rheumatology
DX: M06.4 Inflammatory polyarthropathy (principal); Z79.899 Other long term (current) drug therapy; M79.7 Fibromyalgia; M15.9 Polyosteoarthritis, unspecified; M47.897 Other spondylosis, lumbosacral region; N18.9 Chronic kidney disease, unspecified; Z85.3 Personal history of malignant neoplasm of breast
CPT/HCPCS: 36415; 80053; 85025

== ENCOUNTER → 2018-10-01 | Outpatient (CLI) | payer MEDICARE, SELFPAY ==
[2018-10-01 17:39] LABS: Absolute Lymphocyte Count 0.89 X10^3/uL (0.83-4.51); Absolute Neutrophil Count 3.8 X10^3/uL (2.0-7.7); Basophil# 0.04 X10^3/uL; Basophil% 0.7 % (0-1); Eosinophil# 0.08 X10^3/uL; Eosinophils% 1.4 % (0-5); Hemoglobin 13.3 g/dL (12.0-15.0); Lymphocyte # 0.89 X10^3/ul (4.0); Lymphocyte % 15.4 % (19-41); Mean Corp Hgb Conc 31.7 g/dL (32-36); Mean Corpuscular Hgb 29.5 pg (27.0-32.0); Mean Corpuscular Volume 93.1 fL (81-99); Mean Platelet Vol. 11.9 fl (6.2-12.0); Monocyte# 0.92 X10^3/uL; Monocyte% 15.9 % (0-10); NRBC Flagged by Analyzer 0 % (0-5); Neutrophil % 65.6 % (47-70); Platelet Count 176 K/mm3 (150-450); RBC Distribution Width CV 13.8 % (11.6-14.6); RBC Distribution Width SD 47.5 fl (35.1-43.9); Red Blood Count 4.51 M/mm3 (4.2-5.4); White Blood Count 5.8 K/mm3 (4.4-11.0)
[2018-10-01 17:58] LABS: ALB/GLOB Ratio 0.9 RATIO (0.9-2.4); AST(SGOT) 32 U/L (15-37); Alanine Aminotransfer ALT/SGPT 37 U/L (13-56); Albumin, Serum 3.2 g/dL (3.2-5.0); Alkaline Phosphatase 77 U/L (45-117); Anion Gap 7 (5-15); BUN 21 mg/dL (7-18); Chloride 107 mmol/L (98-107); Creatinine, Serum 1.62 mg/dL (0.55-1.02); EST Glomerular Filtration Rate 33 mL/min (>60); Est Glom Filt Rate - Afr Amer 40 mL/min (>60); Globulin 3.5 g/dL (2.2-4.2); Glucose 159 mg/dL (74-106); Potassium 3.9 mmol/L (3.5-5.1); Protein, Total 6.7 g/dL (6.4-8.2); Sodium Level 143 mmol/L (136-145)
== END | disposition home or self-care (01) ==
LOC: MTLAB 14:49
PROVIDERS: Family Provider Internal Medicine; PCP Internal Medicine; Referring Provider Internal Medicine Rheumatology; Visit Provider Internal Medicine Rheumatology
DX: M06.4 Inflammatory polyarthropathy (principal); Z79.899 Other long term (current) drug therapy; M79.7 Fibromyalgia; M15.9 Polyosteoarthritis, unspecified; M47.897 Other spondylosis, lumbosacral region; N18.9 Chronic kidney disease, unspecified; Z85.3 Personal history of malignant neoplasm of breast
CPT/HCPCS: 36415; 80053; 85025

== ENCOUNTER → 2018-10-31 10:41 | Outpatient (CLI) | payer MEDICARE, SELFPAY ==
[2018-10-16 14:51] VITALS: BMI 43.4
--- NOTE | 2018-10-31 10:43 | ECHOD_ITS ---
Reason For Study: HYPERTENSION Procedure This was a 2D Doppler, Color Flow transthoracic echocardiogram. The study was technically difficult. Due to body habitus. Exam performed in department. Left Ventricle Normal LV size. The estimated ejection fraction is 60 %. Stage 1 diastolic dysfunction. No regional wall motion abnormalities noted. Right Ventricle Normal RV size. Normal systolic function. Atria Normal left atrium. Normal right atrium. Mitral Valve Normal mitral valve. Tricuspid Valve Normal tricuspid valve. Aortic Valve The aortic valve is not well visualized. Pulmonic Valve The pulmonic valve is not well visualized. Great Vessels Normal aortic root. Pericardium/Pleural No pericardial effusion. MMode/2D Measurements & Calculations LVIDd: 4.3 cm IVSd: 1.0 cm Ao root diam: 2.7 cm LVIDs: 2.8 cm LVPWd: 1.1 cm RVDd: 2.7 cm FS: 33.5 % LAV(MOD-bp): 52.8 ml LA A4 area: 17.4 cm2 LA dimension(2D): 4.3 cm LAV(MOD-bp) Indexed: 25.0 ml/m2 LAV(MOD-sp2): 45.3 ml LAV(MOD-sp4): 53.1 ml RA A4 area: 16.8 cm2 Time Measurements MV dec time: 0.14 sec Doppler Measurements & Calculations MV E max arturo: 69.9 cm/sec Lat Peak E' Arturo: 7.7 cm/sec Med Peak E' Arturo: 7.3 cm/sec MV A max arturo: 115.3 cm/sec E/E' lat: 9.0 E/E' med: 9.6 MV E/A: 0.61 Ao V2 max: 133.2 cm/sec LV V1 max: 119.4 cm/sec PA V2 max: 121.2 cm/sec Ao max P.1 mmHg LV V1 max P.7 mmHg TR max arturo: 221.3 cm/sec TR max P.6 mmHg Interpretation Summary Normal LV size. The estimated ejection fraction is 60 %. Stage 1 diastolic dysfunction. The global longitudinal strain is normal. The global longitudinal strain = -17.2 % (normal). Ordering Physician: Shailesh Thompson Referring Physician: Yasemin Carney Performed By: Lucy Vargas, NORMA, RVT
== END ==
PROVIDERS: Family Provider Internal Medicine; PCP Internal Medicine; Referring Provider Internal Medicine Cardiovascular Disease; Visit Provider Internal Medicine Cardiovascular Disease
DX: I50.32 Chronic diastolic (congestive) heart failure (principal)
CPT/HCPCS: 93306

== ENCOUNTER → 2019-01-01 13:57 | Outpatient (CLI) | payer MEDICARE, SELFPAY ==
[2018-10-16 14:51] VITALS: BMI 43.4
[2019-01-01 15:43] LABS: Absolute Neutrophil Count 3.3 X10^3/uL (2.0-7.7); Basophil# 0.05 X10^3/uL; Eosinophil# 0.08 X10^3/uL; Eosinophils% 1.5 % (0-5); Hematocrit 44.5 % (37-47); Lymphocyte % 17.3 % (19-41); Mean Corp Hgb Conc 31.5 g/dL (32-36); Mean Corpuscular Hgb 28.9 pg (27.0-32.0); Mean Corpuscular Volume 91.9 fL (81-99); Mean Platelet Vol. 12.2 fl (6.2-12.0); Monocyte% 15.4 % (0-10); NRBC Flagged by Analyzer 0 % (0-5); Neutrophil # 3.34 X10^3/uL (2.7-7.7); Platelet Count 204 K/mm3 (150-450); RBC Distribution Width CV 13.8 % (11.6-14.6); RBC Distribution Width SD 46.7 fl (35.1-43.9); Red Blood Count 4.84 M/mm3 (4.2-5.4); White Blood Count 5.2 K/mm3 (4.4-11.0)
[2019-01-01 16:22] LABS: ALB/GLOB Ratio 0.9 RATIO (0.9-2.4); AST(SGOT) 25 U/L (15-37); Alanine Aminotransfer ALT/SGPT 33 U/L (13-56); Albumin, Serum 3.6 g/dL (3.2-5.0); Alkaline Phosphatase 80 U/L (45-117); Anion Gap 6 (5-15); BUN 20 mg/dL (7-18); BUN/Creat Ratio 14.5 RATIO (10-20); Calcium,Total 10.1 mg/dL (8.5-10.1); Chloride 105 mmol/L (98-107); Creatinine, Serum 1.38 mg/dL (0.55-1.02); EST Glomerular Filtration Rate 40 mL/min (>60); Est Glom Filt Rate - Afr Amer 49 mL/min (>60); Globulin 3.8 g/dL (2.2-4.2); Glucose 117 mg/dL (74-106); Protein, Total 7.4 g/dL (6.4-8.2); Sodium Level 139 mmol/L (136-145)
== END ==
PROVIDERS: Family Provider Internal Medicine; PCP Internal Medicine; Referring Provider Internal Medicine Rheumatology; Visit Provider Internal Medicine Rheumatology
DX: M06.4 Inflammatory polyarthropathy (principal); Z79.899 Other long term (current) drug therapy; M79.7 Fibromyalgia; M15.9 Polyosteoarthritis, unspecified; M47.897 Other spondylosis, lumbosacral region; N18.9 Chronic kidney disease, unspecified; Z85.3 Personal history of malignant neoplasm of breast
CPT/HCPCS: 36415; 80053; 85025

== ENCOUNTER → 2019-03-26 16:03 | Outpatient (CLI) | payer MEDICARE, SELFPAY ==
[2018-10-16 14:51] VITALS: BMI 43.4
[2019-03-26 18:03] LABS: Absolute Lymphocyte Count 1.21 X10^3/uL (0.83-4.51); Absolute Neutrophil Count 3.9 X10^3/uL (2.0-7.7); Basophil# 0.04 X10^3/uL; Basophil% 0.6 % (0-1); Eosinophils% 1.6 % (0-5); Hematocrit 41.5 % (37-47); Hemoglobin 12.9 g/dL (12.0-15.0); Lymphocyte # 1.21 X10^3/ul (4.0); Lymphocyte % 19.2 % (19-41); Mean Corp Hgb Conc 31.1 g/dL (32-36); Mean Corpuscular Hgb 28.2 pg (27.0-32.0); Mean Corpuscular Volume 90.8 fL (81-99); Mean Platelet Vol. 12.2 fl (6.2-12.0); Monocyte# 0.97 X10^3/uL; Monocyte% 15.4 % (0-10); NRBC Flagged by Analyzer 0 % (0-5); Neutrophil # 3.93 X10^3/uL (2.7-7.7); Neutrophil % 62.4 % (47-70); Platelet Count 206 K/mm3 (150-450); RBC Distribution Width CV 13.7 % (11.6-14.6); RBC Distribution Width SD 45.5 fl (35.1-43.9); Red Blood Count 4.57 M/mm3 (4.2-5.4); White Blood Count 6.3 K/mm3 (4.4-11.0)
[2019-03-26 18:17] LABS: ALB/GLOB Ratio 0.9 RATIO (0.9-2.4); AST(SGOT) 37 U/L (15-37); Alanine Aminotransfer ALT/SGPT 34 U/L (13-56); Albumin, Serum 3.4 g/dL (3.2-5.0); Alkaline Phosphatase 78 U/L (45-117); Anion Gap 4 (5-15); BUN 25 mg/dL (7-18); BUN/Creat Ratio 17.5 RATIO (10-20); Calcium,Total 9.6 mg/dL (8.5-10.1); Chloride 109 mmol/L (98-107); Creatinine, Serum 1.43 mg/dL (0.55-1.02); EST Glomerular Filtration Rate 39 mL/min (>60); Est Glom Filt Rate - Afr Amer 47 mL/min (>60); Globulin 3.6 g/dL (2.2-4.2); Glucose 122 mg/dL (74-106); Potassium 4.1 mmol/L (3.5-5.1); Sodium Level 141 mmol/L (136-145)
== END ==
PROVIDERS: PCP Internal Medicine; Referring Provider Internal Medicine Rheumatology; Visit Provider Internal Medicine Rheumatology
DX: M06.4 Inflammatory polyarthropathy (principal); Z79.899 Other long term (current) drug therapy; M79.7 Fibromyalgia; M15.9 Polyosteoarthritis, unspecified; M47.897 Other spondylosis, lumbosacral region; N18.9 Chronic kidney disease, unspecified; Z85.3 Personal history of malignant neoplasm of breast
CPT/HCPCS: 36415; 80053; 85025

== ENCOUNTER → 2019-06-19 11:36 | Outpatient (CLI) | payer MEDICARE, SELFPAY ==
[2018-10-16 14:51] VITALS: BMI 43.4
[2019-06-19 15:17] LABS: Absolute Lymphocyte Count 1.16 X10^3/uL (0.83-4.51); Absolute Neutrophil Count 3.7 X10^3/uL (2.0-7.7); Basophil# 0.05 X10^3/uL; Basophil% 0.8 % (0-1); Eosinophil# 0.13 X10^3/uL; Eosinophils% 2.2 % (0-5); Hematocrit 39.6 % (37-47); Hemoglobin 12.9 g/dL (12.0-15.0); Lymphocyte # 1.16 X10^3/ul (4.0); Lymphocyte % 19.4 % (19-41); Mean Corp Hgb Conc 32.6 g/dL (32-36); Mean Corpuscular Volume 92.1 fL (81-99); Mean Platelet Vol. 11.8 fl (6.2-12.0); Monocyte# 0.85 X10^3/uL; Monocyte% 14.2 % (0-10); NRBC Flagged by Analyzer 0 % (0-5); Neutrophil # 3.74 X10^3/uL (2.7-7.7); Neutrophil % 62.7 % (47-70); Platelet Count 197 K/mm3 (150-450); RBC Distribution Width CV 14.1 % (11.6-14.6); RBC Distribution Width SD 47.1 fl (35.1-43.9)
[2019-06-19 15:34] LABS: ALB/GLOB Ratio 0.9 RATIO (0.9-2.4); AST(SGOT) 24 U/L (15-37); Alanine Aminotransfer ALT/SGPT 27 U/L (13-56); Albumin, Serum 3.4 g/dL (3.2-5.0); Alkaline Phosphatase 83 U/L (45-117); Anion Gap 8 (5-15); BUN 33 mg/dL (7-18); BUN/Creat Ratio 21.9 RATIO (10-20); Calcium,Total 9.6 mg/dL (8.5-10.1); Chloride 107 mmol/L (98-107); Creatinine, Serum 1.51 mg/dL (0.55-1.02); EST Glomerular Filtration Rate 36 mL/min (>60); Est Glom Filt Rate - Afr Amer 44 mL/min (>60); Globulin 3.7 g/dL (2.2-4.2); Glucose 127 mg/dL (74-106); Potassium 4.1 mmol/L (3.5-5.1); Protein, Total 7.1 g/dL (6.4-8.2); Sodium Level 141 mmol/L (136-145); Uric Acid 7.3 mg/dL (2.6-6.0)
== END ==
PROVIDERS: PCP Internal Medicine; Referring Provider Internal Medicine Rheumatology; Visit Provider Internal Medicine Rheumatology
DX: M06.4 Inflammatory polyarthropathy (principal); M79.7 Fibromyalgia; M15.9 Polyosteoarthritis, unspecified; M47.897 Other spondylosis, lumbosacral region; N18.9 Chronic kidney disease, unspecified; Z79.899 Other long term (current) drug therapy; Z85.3 Personal history of malignant neoplasm of breast
CPT/HCPCS: 36415; 80053; 84550; 85025

== ENCOUNTER → 2019-09-18 15:34 | Outpatient (CLI) | payer MEDICARE, SELFPAY ==
[2018-10-16 14:51] VITALS: BMI 43.4
[2019-09-18 17:57] LABS: Absolute Lymphocyte Count 0.87 X10^3/uL (0.83-4.51); Absolute Neutrophil Count 3.3 X10^3/uL (2.0-7.7); Basophil# 0.05 X10^3/uL; Eosinophil# 0.12 X10^3/uL; Eosinophils% 2.4 % (0-5); Hematocrit 38.8 % (37-47); Hemoglobin 12.2 g/dL (12.0-15.0); Lymphocyte # 0.87 X10^3/ul (4.0); Lymphocyte % 17.3 % (19-41); Mean Corp Hgb Conc 31.4 g/dL (32-36); Mean Corpuscular Volume 92.4 fL (81-99); Monocyte# 0.66 X10^3/uL; Monocyte% 13.1 % (0-10); NRBC Flagged by Analyzer 0 % (0-5); Neutrophil # 3.27 X10^3/uL (2.7-7.7); Platelet Count 217 K/mm3 (150-450); RBC Distribution Width CV 13.6 % (11.6-14.6); RBC Distribution Width SD 46.2 fl (35.1-43.9)
[2019-09-18 18:19] LABS: ALB/GLOB Ratio 0.9 RATIO (0.9-2.4); AST(SGOT) 28 U/L (15-37); Alanine Aminotransfer ALT/SGPT 25 U/L (13-56); Alkaline Phosphatase 73 U/L (45-117); Anion Gap 5 (5-15); BUN 24 mg/dL (7-18); BUN/Creat Ratio 17.9 RATIO (10-20); Calcium,Total 8.8 mg/dL (8.5-10.1); Chloride 108 mmol/L (98-107); Creatinine, Serum 1.34 mg/dL (0.55-1.02); EST Glomerular Filtration Rate 42 mL/min (>60); Est Glom Filt Rate - Afr Amer 50 mL/min (>60); Globulin 3.4 g/dL (2.2-4.2); Glucose 131 mg/dL (74-106); Potassium 4.5 mmol/L (3.5-5.1); Protein, Total 6.4 g/dL (6.4-8.2); Sodium Level 141 mmol/L (136-145); Uric Acid 7.1 mg/dL (2.6-6.0)
== END ==
LOC: LAB.FUTURE 15:35 → MTLAB 15:59
PROVIDERS: PCP Internal Medicine; Referring Provider Internal Medicine Rheumatology; Visit Provider Internal Medicine Rheumatology
DX: M06.4 Inflammatory polyarthropathy (principal); M15.9 Polyosteoarthritis, unspecified; M47.897 Other spondylosis, lumbosacral region; N18.9 Chronic kidney disease, unspecified; Z79.899 Other long term (current) drug therapy; Z85.3 Personal history of malignant neoplasm of breast
CPT/HCPCS: 36415; 80053; 84550; 85025

== ENCOUNTER → 2019-11-12 12:56 | Outpatient (CLI) | payer MEDICARE, SELFPAY ==
[2019-10-16 12:50] VITALS: BMI 39.8
[2019-11-12 13:37] LABS: Amphetamine Urine VISTA NEGATIVE (<1000 ng/mL); Barbiturate Urine VISTA NEGATIVE (< 200 ng/mL); Benzodiazepine Urine VISTA NEGATIVE (< 200 ng/mL); Cocaine Urine VISTA NEGATIVE (< 300 ng/mL); Ecstacy Urine VISTA NEGATIVE (< 500 ng/mL); Methadone Urine VISTA NEGATIVE (< 300 ng/mL); PCP Urine VISTA NEGATIVE (< 25 ng/mL); THC Urine VISTA NEGATIVE (< 50 ng/mL); Vista UDS pH Range 5
== END ==
PROVIDERS: PCP Internal Medicine; Referring Provider Anesthesiology Pain Medicine; Visit Provider Anesthesiology Pain Medicine
DX: F11.20 Opioid dependence, uncomplicated (principal)
CPT/HCPCS: 80307

== ENCOUNTER → 2019-11-26 14:53 | Outpatient (CLI) | payer MEDICARE, SELFPAY ==
[2019-10-16 12:50] VITALS: BMI 39.8
[2019-11-26 18:41] LABS: Absolute Lymphocyte Count 0.77 X10^3/uL (0.83-4.51); Absolute Neutrophil Count 3.6 X10^3/uL (2.0-7.7); Basophil# 0.03 X10^3/uL; Basophil% 0.6 % (0-1); Eosinophil# 0.09 X10^3/uL; Eosinophils% 1.7 % (0-5); Hemoglobin 11.7 g/dL (12.0-15.0); Lymphocyte # 0.77 X10^3/ul (4.0); Lymphocyte % 14.4 % (19-41); Mean Corpuscular Hgb 27.8 pg (27.0-32.0); Mean Corpuscular Volume 92.6 fL (81-99); Mean Platelet Vol. 11.8 fl (6.2-12.0); Monocyte# 0.74 X10^3/uL; Monocyte% 13.9 % (0-10); NRBC Flagged by Analyzer 0 % (0-5); Neutrophil # 3.64 X10^3/uL (2.7-7.7); Neutrophil % 68.3 % (47-70); Platelet Count 240 K/mm3 (150-450); RBC Distribution Width CV 14.4 % (11.6-14.6); RBC Distribution Width SD 48.8 fl (35.1-43.9); Red Blood Count 4.21 M/mm3 (4.2-5.4); White Blood Count 5.3 K/mm3 (4.4-11.0)
[2019-11-26 18:52] LABS: ALB/GLOB Ratio 0.9 RATIO (0.9-2.4); AST(SGOT) 37 U/L (15-37); Alanine Aminotransfer ALT/SGPT 32 U/L (13-56); Albumin, Serum 3.1 g/dL (3.2-5.0); Alkaline Phosphatase 84 U/L (45-117); Anion Gap 6 (5-15); BUN 26 mg/dL (7-18); BUN/Creat Ratio 22.6 RATIO (10-20); Calcium,Total 9.1 mg/dL (8.5-10.1); Chloride 108 mmol/L (98-107); Creatinine, Serum 1.15 mg/dL (0.55-1.02); EST Glomerular Filtration Rate 49 mL/min (>60); Est Glom Filt Rate - Afr Amer 60 mL/min (>60); Globulin 3.6 g/dL (2.2-4.2); Glucose 149 mg/dL (74-106); Protein, Total 6.7 g/dL (6.4-8.2); Sodium Level 141 mmol/L (136-145); Uric Acid 5.7 mg/dL (2.6-6.0)
== END ==
PROVIDERS: PCP Internal Medicine; Referring Provider Internal Medicine Rheumatology; Visit Provider Internal Medicine Rheumatology
DX: M06.4 Inflammatory polyarthropathy (principal); N18.9 Chronic kidney disease, unspecified; M79.7 Fibromyalgia; M15.9 Polyosteoarthritis, unspecified; M47.897 Other spondylosis, lumbosacral region; Z79.899 Other long term (current) drug therapy; Z85.3 Personal history of malignant neoplasm of breast
CPT/HCPCS: 36415; 80053; 84550; 85025

== ENCOUNTER 2020-01-16 13:16 | Day surgery (SDC) | payer MEDICARE, SELFPAY ==
[2019-10-16 12:50] VITALS: BMI 39.8
--- NOTE | 2020-01-10 15:37 | PCM.HP.BLA ---
History and Physical Date of Admission: 01/16/20 HISTORY AND PHYSICAL ? Nkechi Wong 1950 ? REFERRING PHYSICIAN: Melvin Reyes (Artificial Teeth Inspector), AP* ? CHIEF COMPLAINT: colon/EGD consult ? HPI: The patient is a 69 year old female referred for endoscopy. Nkechi notes early satiety, weight loss, nausea with bowel movements, epigastric pain x 6 monts. Patient denies any blood in stools or black tarry stools. NOTES family history of colon issues-mother. Patient also has a personal history of polyps. ? Nkechi has undergone prior endoscopy. Most recent endoscopy performed by Dr. Iona Azevedo at [facility] 05/28/17. She was noted to have a cecal polyp and retained stool at that time. ? Past medical history significant for chronic kidney disease, obesity, breast cancer, hypertension. Patient follows with Dr. Carney for her chronic medical conditions. ? ? PAST MEDICAL HISTORY PAST MEDICAL HISTORY Diagnosis Date ? Benign neoplasm of colon ? ? Benign polyps. ? Diaphragmatic hernia without mention of obstruction or gangrene ? ? Esophageal reflux ? ? Essential hypertension, benign ? ? Generalized osteoarthrosis, involving hand ? ? knees, hips ? Kidney disease ? ? CKDIII ? 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 Right. Lumpectomy, completed radiation 06/27/10. No chemotherapy. ? Myalgia and myositis, unspecified ? ? Obesity, unspecified ? ? Obesity ? Obstructive sleep apnea syndrome 05/24/2015 ? Pain in joint of right shoulder 09/03/2014 ? Plantar fascial fibromatosis ? ? Seborrheic dermatitis, unspecified ? ? Shortness of breath ? ? Type II or unspecified type diabetes mellitus without mention of complication, not stated as uncontrolled ? ? Unspecified hemorrhoids without mention of complication ? ? Hemorrhoids ? ? PAST SURGICAL HISTORY PAST SURGICAL HISTORY Procedure Laterality Date ? BX BREAST PERC NEED W/GUID ? 02/11/10 ? U/S Needle core UOQ right breast bx ? BX/REMV,LYMPH NODE,DEEP AXILL ? 03-16-10 ? RIGHT - [facility] Dr. Dung Mayo ? DELIVERY ONLY ? ? ? , low cervical x4 ? COLONOSCOP W/ OR W/O [facility] SPEC ? 08/30/01 ? Colonoscopy ? COLONOSCOP W/ OR W/O BRS SPEC ? 07/17/2012 ? Colonoscopy ? COLONOSCOP W/ OR W/O [facility] SPEC ? 12/02/15 ? Colonoscopy (Needs MAC next time) ? COLONOSCOPY W/BX ? 06/01/06 ? EGD W REM POLYP-HOT BX /CAUTERY ? 08/30/01 ? EGD W/O [facility] SPECIMEN W/BX ? 06/01/06 ? EGD W/O [facility] SPECIMEN W/BX ? 12/23/09 ? EGD W/O OR W/BRUSH/WASH ? 12/02/15 ? EGD ? LIGATE FALLOPIAN TUBE ? ? ? Tubal ligation ? MASTECTOMY, PARTIAL ? 03-16-10 ? RIGHT - [facility] Dr. Dung Mayo ? PREOP PLACEMENT NEEDLE LOC ? 03/16/10 ? U/S wire loc UOQ right breast ? PULMONARY FUNCTION TEST ? 05/22/05 ? REMOVAL ADENOIDS,PRIMARY,<12 Y/O ? age 3 ? Adenoidectomy ? REMOVAL GALLBLADDER ? 01/11/1981 ? Cholecystectomy ? REMOVAL OF TONSILS,<12 Y/O ? age 3 ? Tonsillectomy ? SIGMOIDOSCOPY FLEX DIAG ? 04/1999 ? Sigmoidoscopy, flexible ? ? ? CURRENT MEDICATIONS Current Outpatient Medications Medication Sig ? magnesium oxide (MAG-OX) 400 mg (241.3 mg magnesium) tablet Take 1 tablet by mouth once daily. ? blood sugar diagnostic (TupaloUCH ULTRA TEST) test strip TEST GLUCOSE 1 X DAILY, DX: E11.9, INSULIN USE: NO ? lancets (ONE TOUCH DELICA) 33 gauge Test blood sugar(s) 1 daily. Dx: Type 2 DM - Controlled E11.9 Insulin: No ? furosemide (LASIX) 20 mg tablet Take 0.5 tablets by mouth once daily. ? omeprazole (PRILOSEC) 20 mg capsule Take 1 capsule by mouth daily before breakfast. ? zoster vaccine, recombinant, adjuvanted, (SHINGRIX, PF,) 50 mcg/0.5 mL injection Inject 0.5 mL intramuscularly now and repeat 2nd dose in 2-6 months ? metoprolol succinate ER (TOPROL XL) 50 mg 24 hr tablet Take 1 tablet by mouth once daily. ? amLODIPine (NORVASC) 10 mg tablet Take 1 tablet by mouth once daily. ? valsartan (DIOVAN) 160 mg tablet Take 1 tablet by mouth once daily. ? metFORMIN ER (GLUCOPHAGE XR) 500 mg 24 hr tablet Take 2 tablets by mouth daily with breakfast. ? lovastatin (MEVACOR) 10 mg tablet Take 1 tablet by mouth once daily. ? Diclofenac Sodium (SOLARAZE) 3 % gel Apply to affected area three times daily as needed. ? tiotropium-olodaterol (STIOLTO RESPIMAT) 2.5-2.5 mcg/actuation mist Inhale 2 Puffs as instructed once daily. ? [place]-3 Fatty Acids (FISH OIL) 500 mg cap Take 1 capsule by mouth once daily. ? alpha tocopheryl acetate (VITAMIN E) 400 unit capsule Take 1 capsule by mouth twice daily. ? LEFLUNOMIDE (ARAVA ORAL) Take by mouth. ? morphine SR (MS CONTIN, ORAMORPH SR) 15 mg 12 hr tablet Take 15 mg by mouth every 8 hours as needed. ? CPAP Replace CPAP equipment: Cpap @ 11 cm of water without heated humidification. New Mask (per patient preference) optional chin strap (if indicated), head gear, filters, tubing, humidifier and other supplies. Length of need 12 months, or lifetime if able. Dx: G47.33 ? cyanocobalamin (VITAMIN B-12) 1,000 mcg tab Take 1,000 mcg by mouth once daily. ? COMPOUNDED PRESCRIPTION Wheeled Seated Walker. Dx: Chronic back pain M54.5, and RA M06.9 ? acetaminophen (TYLENOL EXTRA STRENGTH) 500 mg tablet Take 500 mg by mouth every 8 hours as needed. ? FOLIC ACID 800 MCG TAB Take one(1) tablet every other day ? ASPIRIN 81 MG TAB Take one (1) tablet daily . ? No current facility-administered medications for this visit. ? ? ALLERGIES: Ciprofloxacin, Claritin [Loratadine], Dicyclomine, E-Mycin [Erythromycin], Naproxen, Oruvail [Ketoprofen], Relafen [Nabumetone], and Statin [Other] ? PERSONAL HISTORY: SOCIAL HISTORY Social History ? Tobacco Use ? Smoking status: Never Smoker ? Smokeless tobacco: Never Used ? Tobacco comment: Household ETS for 50 years. Substance Use Topics ? Alcohol use: No ? Drug use: No ? FAMILY HISTORY: FAMILY HISTORY FAMILY HISTORY Problem Relation Age of Onset ? Diabetes Mother ? ? Colon Cancer Mother ? ? PASSED FROM THIS AT THE AGE OF 62 ? Heart Father ? ? HAD AN CA IN MID TO LATE 50s, FROM THIS. ? other (Other) Sister ? ? MVA ? Cancer Brother ? ? Lymphoma. Cancer free for 10 years. ? Coronary Artery Disease Brother ? ? Stent ? Arthritis Daughter ? ? Psoriactic ? Colon Cancer Brother ? ? No Known Problems Sister ? ? Hypertension Sister ? ? other (RHUMATOID ARTHRITIS) Sister ? ? SAME SISTER HYPERTENSION ? Asthma No Family History ? ? Emphysema No Family History ? ? Blood Clots No Family History ? ? No PE. ? ? REVIEW OF SYMPTOMS: The review of systems data was entered by the nurse and reviewed by me ? Nursing Notes: Melvin Cazares 12/22/2019 4:52 PM Signed REVIEW OF SYSTEMS: General: The patient NOTES fatigue, NOTES weight loss, denies weight gain, denies feeling hot, and denies feelings of cold. Eyes: The patient denies glaucoma, denies eye injury/surgery, wears glasses or contacts. Ear/Nose/Throat: The patient denies allergies, denies hayfever, denies ear infections, and denies bloody noses. Cardiovascular: The patient denies chest pain, denies heart disease, NOTES high blood pressure,denies cardiac stent, denies prior heart attack, denies irregular heart beat, NOTES high cholesterol, denies poor circulation, denies heart failure, other cardiac issues, denies claudication, denies cold feet, denies peripheral arterial stent. Respiratory: The patient denies tuberculosis, denies pneumonia, denies frequent cough, denies pulmonary embolism, NOTES shortness of breath, and denies coughing up blood. Gastrointestinal: The patient denies difficulty swallowing, NOTES acid reflux, denies ulcers, denies vomiting, denies jaundice/hepatitis, denies gallbladder problems, denies black or tarry stools, NOTES hemorrhoids, denies bleeding from rectum, denies diverticulitis, NOTES constipation, denies diarrhea, denies loss of stool control, and denies hernias. Kidney/Bladder: The patient denies kidney stones, denies urine infections, and denies bloody urine. Skin: The patient denies a history of skin cancer, denies bleeding/changing moles, and denies a history of skin rash. Neurologic: The patient denies a history of epilepsy/convulsions, denies headaches, denies head/spinal injuries, and denies stroke/TIA. Psychiatric: The patient denies psychiatric medications, denies depression, and denies voices, denies substance abuse. Endocrine: The patient denies thyroid disorders, NOTES diabetes, and denies hormonal problems. Hematologic: The patient denies a history of bruising, denies bleeding, and NOTES anemia, denies blood clots. Infections: The patient denies a history of measles and mumps, denies rheumatic fever, and denies sexually transmitted diseases. Musculoskeletal: The patient denies back pain/injury, NOTES back problems, NOTES sciatica, denies knee/foot trouble, NOTES arthritis, or denies gout. ? ? When was patient's last Mammogram screening? ? Last Colonoscopy: ? Melvin Cazares ? PHYSICAL EXAMINATION: ? General: The patient is 69 year old female, well nourished, well hydrated in no acute distress. The patient is oriented to time, place, and person. ? VITALS: Blood pressure 138/70, pulse 84, temperature 36.6 ?C (97.8 ?F), temperature source Tympanic, resp. rate 18, weight 101.2 kg (223 lb), SpO2 97 %. Body mass index is 41.45 kg/m?. ? HEENT: Normal cephalic, ataumatic, pupils are equally round, sclera are anicteric, mucous membranes are moist, oropharynx is clear. Neck has no masses, asymmetry or lymphadenopathy. ? Respiratory: Clear to auscultation and percussion. Normal respiratory excursion and pattern. ? Cardiac: Examination is regular rate and rhythm. Normal S1/S2 ? Abdominal exam: Soft, nontender, with no palpable masses. No hepatosplenomegaly. No palpable hernias. ? Extremities: no clubbing, cyanosis or edema. No adenopathy. ? LABORATORY VALUES: As Noted ? RADIOLOGIC STUDIES: As Noted ? ? IMPRESSION: history of colon polyps and poor bowel prep, epigastric and LUQ pain, nausea, hiatal hernia ? PLAN: I have reviewed my findings with the surgeon. Will plan for upper and lower endoscopy. We discussed the risks and benefits of the planned endoscopy. I have informed the patient that complications can occur including failure to complete the endoscopy and perforation. The patient had the opportunity to ask questions concerning the planned endoscopy. My staff has also explained the procedure to the patient in understandable terms and has given the patient printed material concerning the procedure. The patient freely consents to surgery. ? The patient was offered a surgery/procedure at a [facility] facility. I have counseled the patient regarding the risk of exposure to and/or potential harm posed by the COVID-19 virus with having a surgery/procedure at this time versus the risk of? delaying the surgery/procedure. It is not possible to know either the risk of delaying the surgery or procedure or chance of getting an infection with perfect accuracy, but a joint decision was made between the patient and myself?to proceed at this time with endoscopy. ? ? I plan to use Miralax/dulcolax bowel preparation ? Patient instructed to contact PCP for instructions regarding diabetic medication, which may require adjustment during bowel preparation and/or day of procedure ? ? We will plan for Monitored Anesthetic Care. ? ? ? Diagnoses: (R10.10) Upper abdominal pain (R63.4) Weight loss (Z80.0) Family hx of colon cancer (Z87.19) Hx of hiatal hernia ? ? Sarah Neumann PA-C
[2020-01-16] VITALS (7 sets, daily range): BP systolic 123–165; BP diastolic 70–89; PULSE 83–106; RESP 16–98; TEMP 36.3–37.1; O2SAT 18–100; BMI 38.1
[2020-01-16] MEDS: Lactated Ringers 1,000 ML 75 ML IV (14:01)
[2020-01-16 14:06] LABS: Bedside Glucose 157 mg/dL (70-110)
--- NOTE | 2020-01-16 14:30 | IMM_PTH ---
PATIENT: SAEID URBINA LOC: EN U#:[id number] AGE/SX: 69/F ROOM: RE01/16/[address]: Dr. Iona Azevedo MD : 1950 BED: DIS: 01/16/2020 SPEC #: [id number] RECD: 01/19/20 10:21 STATUS: CRYSTAL REQ #: [id number] TYLER: 01/16/20 14:[address]: Iona Azevedo DEPT: IMMUNOHISTOCHEMISTRY RECD BY: Roxanne Sandoval ENTERED: 01/19/20 10:21 SP TYPE: IMMUNO OTHR DR: Dr. Yasemin Carney MD Tissues: A - Stomach, NOS Procedures: H Pylori (initial) PHYSICIAN & INSTITUTION [place] [id number] SPECIMEN INFORMATION: Tissue Source: A - Antrum biopsy Clinical Info: Upper abdominal pain; weight loss; hiatal hernia Specimen Number: [id number] CPT code: 39107 METHODOLOGY: Deparaffinized sections of prefer/formalin-fixed tissue or PAP/DQ stained slides are incubated with monoclonal/polyclonal antibodies/oligonucleotide probes. Localization is made via biotin free immunoperoxidase method. Appropriate controls are performed and reacted as expected. Results on target cell population are indicated in the following table: RESULTS: ANTIBODY / CLONE RESULT Block A H Pylori (polyclonal) negative These tests were developed and their performance characteristics determined by [facility]. They may not have been cleared or approved by the U.S. Food and Drug Administration. The FDA has determined that such clearance or approval is not necessary. INTERPRETATION: A. Antrum, biopsy: Negative for Helicobacter pylori organisms. AM:aniket 01/20/20
--- NOTE | 2020-01-16 14:30 | EGD_PTH ---
PATIENT: SAEID URBINA LOC: EN U#:[id number] AGE/SX: 69/F ROOM: RE01/16/[address]: Dr. Iona Azevedo MD : 1950 BED: DIS: 01/16/2020 SPEC #: [id number] RECD: 01/16/20 16:27 STATUS: CRYSTAL REMaykel #: [id number] TYLER: 01/16/20 14:[address]: Iona Azevedo DEPT: SURGICAL PATHOLOGY RECD BY: Deborah Sanchez ENTERED: 01/19/20 09:48 SP TYPE: EGD BIOPSY OT DR: Dr. Yasemin Carney MD [facility] Tissues: A - Gastric mucous membrane B - Gastric mucous membrane C - COLON BIOPSY Procedures: Special Stain Group II Surgery Specimen Level IV Alcian Blue/PAS (control) HEADER OPERATION: Colonoscopy, EGD ([facility]) PRE-OP DIAGNOSIS: Upper abdominal pain; weight loss; hiatal hernia; family history colon cancer TISSUE SUBMITTED: A - Antrum biopsy for histo and H. pylori, B - GE junction biopsy, C - Hepatic flexure biopsy MICROSCOPIC DIAGNOSIS A. Gastric antrum, biopsy: Chronic gastritis. Focal acute gastritis. See comment. B. GE junction, biopsy: Fragment of gastric mucosa with chronic inflammation. No evidence of goblet cell metaplasia. See comment. C. Colon at hepatic flexure, biopsy: No pathologic change. No evidence of colitis. AM:aniket 01/20/20 COMMENT A. The results of immunohistochemistry for Helicobacter pylori will be reported separately ([id number]). B. Alcian blue/PAS stain with matched control supports the above diagnosis. MICROSCOPIC DESCRIPTION Slides are reviewed. GROSS DESCRIPTION A - Received in fixative is one container labeled with the patient's name and designated antrum biopsy. The specimen consists of two irregular fragments of light rodriguez soft tissue that in aggregate measure 0.5 x 0.5 x 0.1 cm. The specimen is totally submitted in one cassette. B - Received in fixative is one container labeled with the patient's name and designated GE junction biopsy. The specimen consists of one irregular fragment of light rodriguez soft tissue that measures 0.3 x 0.2 x 0.1 cm. The specimen is totally submitted in one cassette. C - Received in fixative is one container labeled with the patient's name and designated hepatic flexure biopsy. The specimen consists of multiple irregular fragments of light rodrgiuez soft tissue that in aggregate measure 1 x 0.7 x 0.1 cm. The specimen is totally submitted in one cassette. / AM:aniket 01/19/20 TC:2 CPT: 21782 x3, 00747
--- NOTE | 2020-01-16 15:15 | OP.EGD_ITS ---
Patient Name: Nkechi Wong Procedure Date: 01/16/2020 2:23 PM Date of : 1950 Age: 69 Procedure: Upper GI endoscopy Indications: Upper abdominal pain Providers: Iona Azevedo MD Referring MD: Yasemin Carney Medicines: See the Anesthesia note for documentation of the administered medications Patient Profile: Refer to note in patient chart for documentation of history and physical. Complications: No immediate complications. Procedure: Pre-Anesthesia Assessment: - see anesthesia note After obtaining informed consent, the endoscope was passed under direct vision. Throughout the procedure, the patient's blood pressure, pulse, and oxygen saturations were monitored continuously. The gastroscope was introduced through the mouth, and advanced to the second part of duodenum. The upper GI endoscopy was accomplished without difficulty. The patient tolerated the procedure well. Scope In: 2:47:15 PM Scope Out: 2:52:02 PM Total Procedure Duration Time 0 hours 4 minutes 47 seconds Findings: The first portion of the duodenum and second portion of the duodenum were normal. Striped mildly erythematous mucosa without bleeding was found in the gastric antrum. Biopsies were taken with a cold forceps for histology. Verification of patient identification for the specimen was done by the nurse. Estimated blood loss was minimal. The Z-line was irregular. Biopsies were taken with a cold forceps for histology. Verification of patient identification for the specimen was done by the nurse. Estimated blood loss was minimal. 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 very small hiatal hernia noted Impression: - Normal first portion of the duodenum and second portion of the duodenum. - Erythematous mucosa in the antrum. Biopsied. - Z-line very minimally irregular. Biopsied. Recommendation: - Discharge patient to home (ambulatory). - Resume previous diet. - Continue present medications. - Await pathology results. - My office will telephone with pathology results in 1-2 weeks Procedure Code(s): --- Professional --- 39341, Esophagogastroduodenoscopy, flexible, transoral; with biopsy, single or multiple Diagnosis Code(s): --- Professional --- K31.89, Other diseases of stomach and duodenum K22.8, Other specified diseases of esophagus R10.10, Upper abdominal pain, unspecified CPT copyright 2017 [employer]. All rights reserved. The codes documented in this report are preliminary and upon regional account manager review may be revised to meet current compliance requirements. MD Iona Kimbrough MD 01/16/2020 3:14:50 PM This report has been signed electronically. Number of Addenda: 0 Note Initiated On: 01/16/2020 2:23 PM
--- NOTE | 2020-01-16 15:15 | OP.CCLET_ITS ---
01/16/2020 Yasemin Carney [address] [id number] Re : Upper GI endoscopy procedure for Nkechi Wong Dear Dr. Carney This procedure was performed on Thursday, January 16, 2020. My impressions and recommendations are as follows: Impressions : - Normal first portion of the duodenum and second portion of the duodenum. - Erythematous mucosa in the antrum. Biopsied. - Z-line very minimally irregular. Biopsied. Recommendations : - Discharge patient to home (ambulatory). - Resume previous diet. - Continue present medications. - Await pathology results. - My office will telephone with pathology results in 1-2 weeks My findings are described in the full procedure note, which is enclosed. If I can be of further assistance, please feel free to contact me at Doctor phone number(s): , Work: . Sincerely, MD Iona Kimbrough MD 01/16/2020 3:14:50 PM This report has been signed electronically.
--- NOTE | 2020-01-16 15:20 | OP.CCLET_ITS ---
01/16/2020 Yasemin Carney [address] [phone] Re : Colonoscopy procedure for Nkechi Wong Dear Dr. Carney This procedure was performed on Thursday, January 16, 2020. My impressions and recommendations are as follows: Impressions : - Stricture at the hepatic flexure. Biopsied. Clip (MR conditional) was placed. - Non-bleeding internal hemorrhoids. Recommendations : - Repeat colonoscopy date to be determined after pending pathology results are reviewed for surveillance based on pathology results. - My office will telephone with pathology results in 1-2 weeks - Continue present medications. My findings are described in the full procedure note, which is enclosed. If I can be of further assistance, please feel free to contact me at Doctor phone number(s): , Work: . Sincerely, MD Iona Kimbrough MD 01/16/2020 3:20:14 PM This report has been signed electronically.
--- NOTE | 2020-01-16 15:20 | OP.COLON_ITS ---
Patient Name: Nkechi Wong Procedure Date: 01/16/2020 2:52 PM Date of : 1950 Age: 69 Procedure: Colonoscopy Indications: High risk colon cancer surveillance: Personal history of colonic polyps, Incidental - Upper abdominal pain Providers: Iona Azevedo MD Referring MD: Yasemin Carney Medicines: See the Anesthesia note for documentation of the administered medications Patient Profile: Refer to note in patient chart for documentation of history and physical. Last Colonoscopy: 2017. Complications: No immediate complications. Procedure: Pre-Anesthesia Assessment: - see anesthesia note After I obtained informed consent, the scope was passed under direct vision. Throughout the procedure, the patient's blood pressure, pulse, and oxygen saturations were monitored continuously. The Colonoscope was introduced through the anus and advanced to the hepatic flexure. The colonoscopy was performed without difficulty. The patient tolerated the procedure well. The quality of the bowel preparation was adequate. Scope In: 2:54:33 PM Scope Out: 3:09:04 PM Total Procedure Duration Time 0 hours 14 minutes 31 seconds Findings: The perianal and digital rectal examinations were normal. A no obvious malignant signs but could not traverse severe stenosis measuring of unknown length was found at the hepatic flexure and was non-traversed. Biopsies were taken with a cold forceps for histology. Estimated blood loss was minimal. Biopsies were taken with a cold forceps for histology. Verification of patient identification for the specimen was done by the nurse. Estimated blood loss was minimal. For location marking, one hemostatic clip was successfully placed (MR conditional). There was no bleeding at the end of the procedure. Non-bleeding internal hemorrhoids were found. A few small-mouthed diverticula were found in the sigmoid colon. 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 Biopsied. Clip (MR conditional) was placed. - Non-bleeding internal hemorrhoids. Recommendation: - Repeat colonoscopy date to be determined after pending pathology results are reviewed for surveillance based on pathology results. - My office will telephone with pathology results in 1-2 weeks - Continue present medications. Procedure Code(s): --- Professional --- 21557, 52, Colonoscopy, flexible; with biopsy, single or multiple 75875, Unlisted procedure, colon Diagnosis Code(s): --- Professional --- Z86.010, Personal history of colonic polyps K56.699, Other intestinal obstruction unspecified as to partial versus complete obstruction K64.8, Other hemorrhoids CPT copyright 2017 [employer]. All rights reserved. The codes documented in this report are preliminary and upon pta review may be revised to meet current compliance requirements. MD Iona Kimbrough MD 01/16/2020 3:20:14 PM This report has been signed electronically. Number of Addenda: 0 Note Initiated On: 01/16/2020 2:52 PM
--- NOTE | 2020-01-16 15:21 | RAD_ITS ---
STUDY: X-RAY - ABDOMEN/PELVIS REASON FOR EXAM: Female, 69 years old. CHECK MARKER CLIP POST OP COLONOSCOPY TECHNIQUE: Frontal views COMPARISON: None. FINDINGS: Normal visualized lung bases. There is an unremarkable bowel gas pattern. There is no demonstrated free abdominal air. A radiopaque marker is noted overlying the left lower quadrant. Normal soft tissue structures. Degenerative vertebral changes. RAD/Abdomen Single View (Portable) IMPRESSION: Radiopaque marker is noted over the left lower quadrant. Electronically Signed: Jeffery Low DO at 16:02 EST Tel [phone], Service support ,
== END 2020-01-16 16:22 | disposition home or self-care (01) ==
LOC: EN 13:17 → AC 13:18
PROVIDERS: PCP Internal Medicine; Referring Provider Internal Medicine; Visit Provider Surgery
PROC: 0DJD8ZZ Inspection of Lower Intestinal Tract, Via Natural or Artificial Opening Endoscopic (ICD-10-PCS; CPT 45378; principal; 2020-01-16 14:25)
DX: Z12.11 Encounter for screening for malignant neoplasm of colon (principal); K57.30 Diverticulosis of large intestine without perforation or abscess without bleeding; K29.00 Acute gastritis without bleeding; K29.50 Unspecified chronic gastritis without bleeding; K44.9 Diaphragmatic hernia without obstruction or gangrene; K56.699 Other intestinal obstruction unspecified as to partial versus complete obstruction; Z53.09 Procedure and treatment not carried out because of other contraindication; Z20.828 Contact with and (suspected) exposure to other viral communicable diseases; K21.00 Gastro-esophageal reflux disease with esophagitis, without bleeding; K64.8 Other hemorrhoids; K22.8 Other specified diseases of esophagus; K31.89 Other diseases of stomach and duodenum; E11.22 Type 2 diabetes mellitus with diabetic chronic kidney disease; I13.0 Hypertensive heart and chronic kidney disease with heart failure and stage 1 through stage 4 chronic kidney disease, or unspecified chronic kidney disease; I50.9 Heart failure, unspecified; N18.30 Chronic kidney disease, stage 3 unspecified; M15.9 Polyosteoarthritis, unspecified; M54.9 Dorsalgia, unspecified; G89.29 Other chronic pain; G47.33 Obstructive sleep apnea (adult) (pediatric); E66.9 Obesity, unspecified; Z68.41 Body mass index [BMI] 40.0-44.9, adult; Z78.0 Asymptomatic menopausal state; Z79.84 Long term (current) use of oral hypoglycemic drugs; Z79.82 Long term (current) use of aspirin; Z79.891 Long term (current) use of opiate analgesic; Z79.899 Other long term (current) drug therapy; Z86.010 Personal history of colon polyps; Z87.19 Personal history of other diseases of the digestive system; Z85.3 Personal history of malignant neoplasm of breast; Z92.3 Personal history of irradiation
CPT/HCPCS: 43239; 45380; 74018; 82962; 87426; 88305; 88313; 88342; C9803; J7120; J2405

== ENCOUNTER 2020-02-01 01:40 | Emergency (ER) | payer MEDICARE, SELFPAY ==
[2020-01-16 13:42] VITALS: BMI 38.1
[2020-02-01 01:41] VITALS: BP 132/99; PULSE 86; RESP 17; TEMP 37; O2SAT 97; BMI 38.4
[2020-02-01 01:51] LABS: Bedside Glucose 184 mg/dL (70-110)
[2020-02-01 01:59] LABS: Absolute Lymphocyte Count 0.93 X10^3/uL (0.83-4.51); Absolute Neutrophil Count 3.5 X10^3/uL (2.0-7.7); Basophil# 0.05 X10^3/uL; Basophil% 0.9 % (0-1); Eosinophil# 0.15 X10^3/uL; Eosinophils% 2.7 % (0-5); Hematocrit 35.1 % (37-47); Hemoglobin 10.6 g/dL (12.0-15.0); Lymphocyte # 0.93 X10^3/ul (4.0); Lymphocyte % 16.8 % (19-41); Mean Corp Hgb Conc 30.2 g/dL (32-36); Mean Corpuscular Hgb 25.9 pg (27.0-32.0); Mean Corpuscular Volume 85.6 fL (81-99); Monocyte% 14.4 % (0-10); NRBC Flagged by Analyzer 0 % (0-5); Neutrophil # 3.53 X10^3/uL (2.7-7.7); Neutrophil % 63.8 % (47-70); Platelet Count 213 K/mm3 (150-450); RBC Distribution Width CV 15.7 % (11.6-14.6); RBC Distribution Width SD 48.1 fl (35.1-43.9); White Blood Count 5.5 K/mm3 (4.4-11.0)
--- NOTE | 2020-02-01 02:03 | ED.VIS.GEN ---
History of Present Illness Chief Complaint: Hyperglycemia Narrative: This patient is a 69-year-old female who presents with hyperglycemia. She is a diabetic. She had surgery on Sunday. She had a colon resection for colonic mass pathology is pending. In the postoperative period she was not being given Metformin but has been treated with insulin. She was discharged on . Her blood sugars are usually very well controlled. She was concerned because she was feeling jittery tonight and when she checked her blood sugar was 257. Accu-Chek on arrival here is 180. She denies fevers nausea or vomiting. She does have flatus. Her abdominal pain is well controlled. Past Medical History - Allergies and Home Meds Allergies/Adverse Reactions: Allergies ciprofloxacin [From Cipro] Allergy (Verified 02/01/20 01:41) Rash WELTS ciprofloxacin HCl [From Cipro] Allergy (Verified 02/01/20 01:41) Rash WELTS dicyclomine Allergy (Verified 02/01/20 01:41) Rash erythromycin base [From E-Mycin] Allergy (Verified 02/01/20 01:41) Rash ketoprofen [From Oruvail] Allergy (Verified 02/01/20 01:41) Itching loratadine [From Claritin] Allergy (Verified 02/01/20 01:41) Rash nabumetone [From Relafen] Allergy (Verified 02/01/20 01:41) Rash naproxen Allergy (Verified 02/01/20 01:41) Swelling Iyjmtml-Qma-Qxr Reductase Inhibitor Allergy (Verified 02/01/20 01:41) Itching Primary Care Physician: Yasemin Carney MD [Primary Care Provider] - Past Medical History: - - Diabetes, hypertension Smoking Status: Never smoker - Family History Maternal Family History: Family History (Last Reviewed 10/16/19 @ 15:[address] Shailesh Thompson MD) Father Heart disease Myocardial infarction Mother Cancer Brother Cancer Sister Lupus Family History: Reports: No pertinent history Paternal Family History: Family History (Last Reviewed 10/16/19 @ 15:[address] Shailesh Thompson MD) Father Heart disease Myocardial infarction Mother Cancer Brother Cancer Sister Lupus Family History: Reports: No pertinent history Review of Systems All systems negative except as indicated General: Denies: Fever Eyes: Denies: Visual changes - bilaterally ENT: Denies: Bilateral ear pain Cardiovascular: Denies: Chest pain Respiratory: Denies: Dyspnea Gastrointestinal: Denies: Abdominal pain, Vomiting, Diarrhea Musculoskeletal: Denies: Myalgias, Arthralgias Skin: Denies: Rash Neurological: Denies: Headache Allergy: Denies: Uticaria Physical Exam Vital Signs/Narrative: Vital Signs Temp Pulse Resp BP Pulse Ox 02/01/20 01:41 98.6 F 86 17 132/99 H 97 Inital Vital Signs reviewed: Yes General: Obese Head: Normocephalic Eyes: EOMI ENT: Moist mucous membranes Neck: Supple Cardiovascular: Regular rate, Regular rhythm Respiratory: No distress, CTA bilaterally Abdomen: Soft, Nontender, - - Surgical wounds clean dry and intact Skin: Normal color Neurological: Alert Psychological: Normal affect Diagnostic/Tx/Re-eval Laboratory Results 02/01/20 02/01/20 02/01/20 01:47 01:55 01:55 WBC 5.5 RBC 4.10 L Hgb 10.6 L Hct 35.1 L MCV 85.6 MCH 25.9 L MCHC 30.2 L RDW Std Deviation 48.1 H RDW Coeff of Julianna 15.7 H Plt Count 213 MPV 11.0 Immature Gran % (Auto) 1.400 H Neut % (Auto) 63.8 Lymph % (Auto) 16.8 L Porter % (Auto) 14.4 H Eos % (Auto) 2.7 Baso % (Auto) 0.9 Absolute Neuts (auto) 3.5 Absolute Lymphs (auto) 0.93 Nucleated RBC % 0 Sodium 142 Potassium 3.9 Chloride 110 H Carbon Dioxide 26.0 Anion Gap 6 BUN 12 Creatinine 0.92 Estim Creat Clear Calc 46.40 Est GFR (MDRD) Af Amer 77 Est GFR (MDRD) Non-Af 64 BUN/Creatinine Ratio 13.0 Glucose 189 H Calcium 8.9 POC Glucose 184 H - Medical Decision Making Labs as above notable for glucose of 189. Patient advised to follow-up with her primary care for physician in regards to her hyperglycemia. Patient was discharged. She does understand to return for new or worsening symptoms. ED Disposition - Plan for ED Patient: Disposition: Home or Assisted Living Diagnosis: Hyperglycemia due to diabetes mellitus Instructions: ED Diabetic Hyperglycemia Referrals: Yasemin Carney MD [Primary Care Provider] -
[2020-02-01 02:42] LABS: Anion Gap 6 (5-15); BUN 12 mg/dL (7-18); Calcium,Total 8.9 mg/dL (8.5-10.1); Chloride 110 mmol/L (98-107); Creatinine, Serum 0.92 mg/dL (0.55-1.02); EST Glomerular Filtration Rate 64 mL/min (>60); Est Glom Filt Rate - Afr Amer 77 mL/min (>60); Glucose 189 mg/dL (74-106); Potassium 3.9 mmol/L (3.5-5.1); Sodium Level 142 mmol/L (136-145)
[2020-02-01 03:00] VITALS: BP 145/81
[2020-02-01 03:06] LABS: Bedside Glucose 174 mg/dL (70-110)
== END 2020-02-01 03:01 | disposition home or self-care (01) ==
PROVIDERS: Emergency Provider Emergency Medicine; PCP Internal Medicine
DX: E11.65 Type 2 diabetes mellitus with hyperglycemia (principal); I10 Essential (primary) hypertension; R10.9 Unspecified abdominal pain; E66.9 Obesity, unspecified; Z79.84 Long term (current) use of oral hypoglycemic drugs; Z79.82 Long term (current) use of aspirin; Z79.899 Other long term (current) drug therapy
CPT/HCPCS: 80048; 82962; 85025; 99283; A4216

== ENCOUNTER → 2020-02-09 15:38 | Outpatient (CLI) | payer MEDICARE, SELFPAY ==
[2020-02-01 01:41] VITALS: BMI 38.4
[2020-02-09 17:51] LABS: Absolute Lymphocyte Count 1.16 X10^3/uL (0.83-4.51); Absolute Neutrophil Count 4.3 X10^3/uL (2.0-7.7); Basophil# 0.04 X10^3/uL; Basophil% 0.6 % (0-1); Eosinophil# 0.12 X10^3/uL; Eosinophils% 1.8 % (0-5); Hematocrit 36.2 % (37-47); Hemoglobin 10.9 g/dL (12.0-15.0); Lymphocyte # 1.16 X10^3/ul (4.0); Lymphocyte % 17.8 % (19-41); Mean Corp Hgb Conc 30.1 g/dL (32-36); Mean Corpuscular Volume 86.2 fL (81-99); Mean Platelet Vol. 11.3 fl (6.2-12.0); Monocyte# 0.81 X10^3/uL; Monocyte% 12.4 % (0-10); NRBC Flagged by Analyzer 0 % (0-5); Neutrophil # 4.32 X10^3/uL (2.7-7.7); Neutrophil % 66.5 % (47-70); Platelet Count 313 K/mm3 (150-450); RBC Distribution Width CV 15.7 % (11.6-14.6); White Blood Count 6.5 K/mm3 (4.4-11.0)
[2020-02-09 18:07] LABS: ALB/GLOB Ratio 0.9 RATIO (0.9-2.4); AST(SGOT) 19 U/L (15-37); Alanine Aminotransfer ALT/SGPT 25 U/L (13-56); Albumin, Serum 3.2 g/dL (3.2-5.0); Alkaline Phosphatase 126 U/L (45-117); Anion Gap 5 (5-15); BUN 17 mg/dL (7-18); BUN/Creat Ratio 17.2 RATIO (10-20); Calcium,Total 9.6 mg/dL (8.5-10.1); Chloride 108 mmol/L (98-107); Creatinine, Serum 0.99 mg/dL (0.55-1.02); EST Glomerular Filtration Rate 59 mL/min (>60); Est Glom Filt Rate - Afr Amer 71 mL/min (>60); Globulin 3.6 g/dL (2.2-4.2); Glucose 96 mg/dL (74-106); Potassium 3.9 mmol/L (3.5-5.1); Protein, Total 6.8 g/dL (6.4-8.2); Sodium Level 141 mmol/L (136-145); Uric Acid 5.2 mg/dL (2.6-6.0)
== END ==
PROVIDERS: PCP Internal Medicine; Referring Provider Internal Medicine Rheumatology; Visit Provider Internal Medicine Rheumatology
DX: M06.4 Inflammatory polyarthropathy (principal); M79.7 Fibromyalgia; M15.9 Polyosteoarthritis, unspecified; M47.897 Other spondylosis, lumbosacral region; N18.9 Chronic kidney disease, unspecified; Z79.899 Other long term (current) drug therapy; Z85.3 Personal history of malignant neoplasm of breast
CPT/HCPCS: 36415; 80053; 84550; 85025

== ENCOUNTER → 2020-04-12 13:46 | Outpatient (CLI) | payer MEDICARE, SELFPAY ==
--- NOTE | 2020-04-12 13:48 | ECHOCS_ITS ---
Reason For Study: CHF Procedure This was a 2D Doppler, Color Flow transthoracic echocardiogram. Contrast injection was performed. Exam performed in department. Left Ventricle Normal LV size. Mild concentric left ventricular hypertrophy. Left ventricular systolic function is normal. The estimated ejection fraction is 60 %. Stage 1 diastolic dysfunction. No regional wall motion abnormalities noted. Right Ventricle Normal RV size. Normal systolic function. Atria Normal left atrium. Normal right atrium. Mitral Valve Normal mitral valve. Tricuspid Valve Normal tricuspid valve. Mild tricuspid valve insufficiency. Pulmonary artery systolic pressure is 34 mmHg. Aortic Valve Normal aortic valve. Pulmonic Valve Normal pulmonic valve. Great Vessels Normal aortic root. The pulmonary artery is normal size. Normal inferior vena cava. Pericardium/Pleural No pericardial effusion. Medication Diluted definity 2ml given slow IV push to enhance endocardial definition. MMode/2D Measurements & Calculations LVIDd: 4.1 cm IVSd: 1.2 cm Ao root diam: 2.7 cm LVIDs: 2.5 cm LVPWd: 1.2 cm RVDd: 3.3 cm FS: 38.6 % LAV(MOD-bp): 45.3 ml LVAd ap4: 30.0 cm2 SV(MOD-sp4): 54.5 ml LAV(MOD-bp) Indexed: 22.4 ml/m2 EDV(MOD-sp4): 80.8 ml LAV(MOD-sp2): 39.2 ml EDV(sp4-el): 84.6 ml LAV(MOD-sp4): 48.1 ml LVAs ap4: 14.0 cm2 ESV(MOD-sp4): 26.4 ml ESV(sp4-el): 26.5 ml EF(MOD-sp4): 67.4 % EF(sp4-el): 68.7 % SV(sp4-el): 58.1 ml LA A4 area: 18.8 cm2 LA dimension(2D): 4.2 cm RA A4 area: 12.4 cm2 Doppler Measurements & Calculations MV E max arturo: 91.0 cm/sec Lat Peak E' Arturo: 8.6 cm/sec Med Peak E' Arturo: 9.3 cm/sec MV A max arturo: 116.9 cm/sec E/E' lat: 10.6 E/E' med: 9.8 MV E/A: 0.78 Ao V2 max: 169.9 cm/sec LV V1 max: 133.0 cm/sec PA V2 max: 119.3 cm/sec Ao max P.5 mmHg LV V1 max P.1 mmHg Ao V2 mean: 116.3 cm/sec Ao mean P.0 mmHg Ao V2 VTI: 38.4 cm TR max arturo: 270.1 cm/sec TR max P.2 mmHg Interpretation Summary Normal LV size. Mild concentric left ventricular hypertrophy. Left ventricular systolic function is normal. The estimated ejection fraction is 60 %. Pulmonary artery systolic pressure is 34 mmHg. Stage 1 diastolic dysfunction. Ordering Physician: Chaparro Travis Referring Physician: Yasemin Carney Performed By: Leslye Travis, RDCS, RVT
== END ==
PROVIDERS: PCP Internal Medicine; Referring Provider Nurse Practitioner Family; Visit Provider Nurse Practitioner Family
DX: Z01.810 Encounter for preprocedural cardiovascular examination (principal); I11.0 Hypertensive heart disease with heart failure; I50.32 Chronic diastolic (congestive) heart failure; E78.5 Hyperlipidemia, unspecified
CPT/HCPCS: 93306; Q9957; A4216; C8929

== ENCOUNTER 2020-07-01 11:20 | Emergency (ER) | payer MEDICARE, SELFPAY ==
[2020-04-12 14:54] VITALS: BMI 43.0
[2020-07-01 11:20] VITALS: BP 150/70; PULSE 71; RESP 16; TEMP 36.3; O2SAT 96; BMI 40.8
--- NOTE | 2020-07-01 11:51 | CT_ITS ---
STUDY: CT ABDOMEN AND PELVIS WITH CONTRAST REASON FOR EXAM: Female, 69 years old. Upper abd pain. Recent liver ablation procedure for metastatic breast cancer. RADIATION DOSAGE (If Supplied By Facility): CTDIvol = ( 18.19 ) mGy, DLP = ( 1618.71 ) mGycm TECHNIQUE: Transaxial images were obtained from the dome of the diaphragm to the symphysis pubis without oral contrast. IV 100mL Isovue-300 was administered. Sagittal and coronal images were reconstructed. Individualized dose optimization techniques were used for this CT. COMPARISON: None. FINDINGS: Minimal increased linear markings at the right lung base suggestive of scarring. The visualized portions of the heart are within normal limits. There is decreased attenuation of the liver consistent with steatosis. There is a 6.7 cm x 6.3 cm predominantly cystic mass in the inferior aspect of the right lobe liver. Increased signal intensity is seen within the central portion of the mass. This may represent either a small amount of the blood or related to the ablation procedure. There is also evidence of a 3.2 cm x 1.9 cm cystic structure in the subcapsular region of the right lobe of the liver inferiorly. Normal gallbladder and extrahepatic biliary system. Normal spleen. Normal pancreas. Normal bilateral adrenal glands. Normal right kidney. Normal left kidney. Normal visualized stomach. Normal small intestine. Normal colon. The appendix is visualized and appears normal. There is scattered atherosclerotic calcification of the abdominal aorta and its major visceral branches, without a demonstrated aneurysm. Normal inferior vena cava. Normal retroperitoneum. Normal urinary bladder. Normal abdominal wall. There are diffuse degenerative changes of the visualized lumbar spine. CT/Abdomen/Pelvis W IV Cont ONLY IMPRESSION: 6.7 cm x 6.3 cm from the cystic mass in the inferior aspect of the right lobe of liver as described. 3.2 cm x 1.9 cm cystic structure in the subcapsular region of the right lobe of the liver inferiorly most likely related to the ablation procedure. Electronically Signed: Moses Orozco MD at 14:21 EDT , Service support ,
[2020-07-01 12:12] LABS: Absolute Lymphocyte Count 0.96 X10^3/uL (0.83-4.51); Absolute Neutrophil Count 5.9 X10^3/uL (2.0-7.7); Basophil# 0.04 X10^3/uL; Basophil% 0.5 % (0-1); Eosinophil# 0.06 X10^3/uL; Eosinophils% 0.8 % (0-5); Hemoglobin 12.8 g/dL (12.0-15.0); Lymphocyte # 0.96 X10^3/ul (0.83-4.51); Lymphocyte % 12.1 % (19-41); Mean Corpuscular Hgb 28.4 pg (27.0-32.0); Mean Corpuscular Volume 88.7 fL (81-99); Mean Platelet Vol. 10.1 fl (6.2-12.0); Monocyte# 0.89 X10^3/uL; Monocyte% 11.2 % (0-10); NRBC Flagged by Analyzer 0 % (0-5); Neutrophil # 5.93 X10^3/uL (2.7-7.7); Neutrophil % 74.5 % (47-70); Platelet Count 273 K/mm3 (150-450); RBC Distribution Width CV 14.4 % (11.6-14.6); RBC Distribution Width SD 45.9 fl (35.1-43.9); Red Blood Count 4.51 M/mm3 (4.2-5.4)
[2020-07-01 12:28] LABS: Bacteria 0 SEEN /hpf (None Seen); Mucous, Urine 0 SEEN /hpf (<or=2+); Red Blood Cells-Urine 0 SEEN /hpf (0-5)
[2020-07-01 12:29] LABS: ALB/GLOB Ratio 0.6 RATIO (0.9-2.4); AST(SGOT) 22 U/L (15-37); Alanine Aminotransfer ALT/SGPT 21 U/L (13-56); Albumin, Serum 2.9 g/dL (3.2-5.0); Alkaline Phosphatase 143 U/L (45-117); Anion Gap 7 (5-15); BUN 14 mg/dL (7-18); BUN/Creat Ratio 10.9 RATIO (10-20); Calcium,Total 10.4 mg/dL (8.5-10.1); Chloride 103 mmol/L (98-107); Creatinine, Serum 1.29 mg/dL (0.55-1.02); EST Glomerular Filtration Rate 43 mL/min (>60); Est Glom Filt Rate - Afr Amer 52 mL/min (>60); Estimated Creatinine Clearance 31.64 ml/min; Globulin 4.7 g/dL (2.2-4.2); Glucose 148 mg/dL (74-106); Lipase 30 U/L (73-393); Potassium 4.2 mmol/L (3.5-5.1); Protein, Total 7.6 g/dL (6.4-8.2); Sodium Level 136 mmol/L (136-145)
[2020-07-01 12:30] LABS: Color, Urine Yellow (Yellow); Glucose, Dipstick Normal (Normal); Ketone-Dipstick Negative (Negative); Leukocyte Esterase-Dipstick 25 /ul (Negative); Nitrite-Dipstick Negative (Negative); Occult Blood-Urine Negative /ul (Negative); Protein-Dipstick Negative (Negative); Specific Gravity, Urine 1.005 (1.002-1.030); Urine Bilirubin Dipstick Negative (Negative); Urine Clarity Sl. Cloudy (Clear); Urine Urobilinogen Normal (Normal)
[2020-07-01 12:36] LABS: Squamous Epithelial Cells - UA 0-5 SEEN /hpf (5-10); White Blood Cells 0-5 SEEN /hpf (0-5)
[2020-07-01 12:46] LABS: Lactic Acid 2.1 mmol/L (0.4-1.9)
[2020-07-01 13:23] VITALS: BP 134/70; PULSE 76; RESP 16; TEMP 36.7; O2SAT 97
[2020-07-01 14:08] VITALS: BP 134/70; PULSE 76; RESP 16; TEMP 36.7; O2SAT 97
--- NOTE | 2020-07-01 14:27 | EDS_ITS ---
HPI HPI - GI History of Present Illness Chief Complaint: Abd Pain Narrative Narrative: 69-year-old female patient of Dr. Vallejo. She has a history of colorectal cancer with a hemicolectomy in January. She began chemo this month and her last dose was June 21. Patient reports that she has right upper quad abdominal pain that began yesterday. Is a sharp pain stent and worse at 510 currently. Is worsened by movement or pushing on it. She taken morphine with relief. She is had nausea without vomiting. No diarrhea. Last bowel was yesterday. She is passing flatus. Denies any dysuria or frequency. Patient reports that this is similar to the pain she had prior to having a an ablation to a mass in her liver. [facility] Medical History Breast cancer Chronic diastolic (congestive) heart failure Chronic low back pain CKD (chronic kidney disease), stage III Colon cancer COPD (chronic obstructive pulmonary disease) Essential hypertension Fibromyalgia Gastroesophageal reflux disease Hyperlipidemia Morbid obesity Obstructive sleep apnea syndrome Rheumatoid arthritis Type 2 diabetes mellitus Home Medications amlodipine 10 mg PO QHS 05/10/14 [History Last Taken 05/09/14 22:00] aspirin 81 mg PO DAILY@0800 05/10/14 [History Last Taken 05/20/17] metformin 1,000 mg PO DAILY 05/10/14 [History Last Taken 05/09/14 22:00] metoprolol succinate 50 mg PO QHS 05/10/14 [History Last Taken 05/09/14 22:00] cyanocobalamin (vitamin B-12) 500 mcg PO DAILY 09/02/15 [History Last Taken Unknown] acetaminophen 1,000 mg PO TID PRN 10/29/15 [History Last Taken Unknown] folic acid 800 mg PO DAILY 05/23/17 [History Last Taken Unknown] omega-3 fatty acids-fish oil 1 ea PO QHS 05/23/17 [History Last Taken 05/20/17] morphine 30 mg capsule,extended release 24 hr multiphase 15 mg PO TID cap 10/09/18 [History Last Taken 01/16/20 09:30 15 MG] fenofibrate 54 mg tablet 54 mg PO DAILY #90 tab 10/16/19 [Rx Last Taken Unknown] hydroxychloroquine 200 mg tablet 200 mg PO DAILY tab 10/16/19 [History Last Taken Unknown] magnesium oxide 400 mg PO DAILY #90 tab 10/16/19 [Rx Last Taken Unknown] valsartan 160 mg tablet 160 mg PO DAILY tab 10/16/19 [History Last Taken 01/16/20 09:30 160 MG] furosemide 20 mg tablet 10 mg PO DAILY #45 tab 12/03/19 [Rx Last Taken Unknown] dquqjwztcg-ytrjyqcifyw-nolnuo 30 gm TP TID PRN 01/14/20 [History Last Taken Unknown] omeprazole 40 mg PO DAILY 01/14/20 [History Last Taken 01/16/20 09:30 20 MG] sennosides-docusate sodium 1 tab PO DAILY 01/14/20 [History Last Taken Unknown] promethazine [Phenergan] 25 mg PO Q6H PRN 07/01/20 [History Last Taken Unknown] Allergy/AdvReac Type Severity Reaction Status Date / Time ciprofloxacin [From Cipro] Allergy Rash Verified 07/01/20 11:24 ciprofloxacin HCl Allergy Rash Verified 07/01/20 11:24 [From Cipro] dicyclomine Allergy Rash Verified 07/01/20 11:24 erythromycin base Allergy Rash Verified 07/01/20 11:24 [From E-Mycin] ketoprofen [From Oruvail] Allergy Itching Verified 07/01/20 11:24 loratadine [From Claritin] Allergy Rash Verified 07/01/20 11:24 nabumetone [From Relafen] Allergy Rash Verified 07/01/20 11:24 naproxen Allergy Swelling Verified 07/01/20 11:24 Zomccbx-Rtn-Sfz Reductase Allergy Itching Verified 07/01/20 11:24 Inhibitor Family History Father Heart disease Myocardial infarction late 50's Mother Cancer Brother Cancer Sister Lupus Surgical History Ablation to lumbar spine (07/2017) History of History of cholecystectomy History of lumpectomy of right breast (2010) History of tonsillectomy History of tonsillectomy and adenoidectomy History of tubal ligation Hx of cholecystectomy Social History Smoking Status: Never smoker ROS ROS ED Constitutional Constitutional ED: Denies chills, fever(s) or sweats Eyes Eyes: Denies change in vision ENT ENT ED: Denies sore throat Cardiovascular Cardiovascular: Denies chest pain Respiratory/Chest Respiratory/Chest: Denies cough, dyspnea or dyspnea on exertion Gastrointestinal Gastrointestinal: Reports abdominal pain and nausea; Denies diarrhea, melena or vomiting Genitourinary Genitourinary ED: Denies dysuria or urinary frequency Musculoskeletal Musculoskeletal: Denies myalgias Integumentary Denies rash Neurologic Neurologic: Denies headache(s), paresthesias or weakness EXAM Physical Exam Const Vital Signs: 07/01/20 11:20 07/01/20 13:23 07/01/20 14:08 Temperature 97.3 F L 98.1 F 98.1 F Temperature Source Temporal Oral Oral Pulse Rate 71 76 76 Respiratory Rate 16 16 16 Blood Pressure 150/70 H 134/70 H 134/70 H Blood Pressure Mean 96 91 91 Pulse Ox 96 97 97 Oxygen Delivery Method Room Air Room Air Room Air Positive well nourished and well developed General Appearance ED: well developed HEENT Reports normocephalic and head/scalp atraumatic Eyes PERRL Neck no lymphadenopathy, supple and no JVD General: Negative for tenderness Resp normal respiratory effort and clear to auscultation bilaterally Cardio regular rate, regular rhythm and no murmurs GI normal to inspection, nondistended, normoactive bowel sounds and non-distended GI Narrative: No guarding, rebound, or peritoneal signs. Moderate tenderness palpation in the right upper quadrant epigastric regions. Auscultation: normoactive bowel sounds Palpation: soft Back/Spine Back/Spine Narrative: Nontender. Extremity General Extremety ED: Negative for edema or tenderness General Extremity: Negative for edema Neuro oriented x3, CN's II-XII intact bilaterally and no sensory deficits noted Sensorium / Orientation: alert Motor Exam: strength 5/5 throughout Psych mental status grossly normal Skin no rashes or lesions noted MDM MDM Lab Data Labs: Laboratory Results - last 24 hr 07/01/20 07/01/20 07/01/20 11:35 12:00 12:00 WBC 8.0 RBC 4.51 Hgb 12.8 Hct 40.0 MCV 88.7 MCH 28.4 MCHC 32.0 RDW Std Deviation 45.9 H RDW Coeff of Julianna 14.4 Plt Count 273 MPV 10.1 Immature Gran % (Auto) 0.900 Neut % (Auto) 74.5 H Lymph % (Auto) 12.1 L Dent % (Auto) 11.2 H Eos % (Auto) 0.8 Baso % (Auto) 0.5 Absolute Neuts (auto) 5.9 Absolute Lymphs (auto) 0.96 Nucleated RBC % 0 Sodium 136 Potassium 4.2 Chloride 103 Carbon Dioxide 26.0 Anion Gap 7 BUN 14 Creatinine 1.29 H Estim Creat Clear Calc 31.64 Est GFR (MDRD) Af Amer 52 L Est GFR (MDRD) Non-Af 43 L BUN/Creatinine Ratio 10.9 Glucose 148 H Lactic Acid Calcium 10.4 H Total Bilirubin 0.40 AST 22 ALT 21 Alkaline Phosphatase 143 H Total Protein 7.6 Albumin 2.9 L Globulin 4.7 H Albumin/Globulin Ratio 0.6 L Lipase 30 L Urine Color Yellow Urine Clarity Sl. Cloudy Urine pH 7.0 Ur Specific [place] 1.005 Urine Protein Negative Urine Glucose (UA) Normal Urine Ketones Negative Urine Occult Blood Negative Urine Nitrite Negative Urine Bilirubin Negative Urine Urobilinogen Normal Ur Leukocyte Esterase 25 H Urine RBC 0 SEEN Urine WBC 0-5 SEEN Ur Squamous Epith Cells 0-5 SEEN Urine Bacteria 0 SEEN Urine Mucus 0 SEEN 07/01/20 12:00 WBC RBC Hgb Hct MCV MCH MCHC RDW Std Deviation RDW Coeff of Julianna Plt Count MPV Immature Gran % (Auto) Neut % (Auto) Lymph % (Auto) Dent % (Auto) Eos % (Auto) Baso % (Auto) Absolute Neuts (auto) Absolute Lymphs (auto) Nucleated RBC % Sodium Potassium Chloride Carbon Dioxide Anion Gap BUN Creatinine Estim Creat Clear Calc Est GFR (MDRD) Af Amer Est GFR (MDRD) Non-Af BUN/Creatinine Ratio Glucose Lactic Acid 2.1 H* Calcium Total Bilirubin AST ALT Alkaline Phosphatase Total Protein Albumin Globulin Albumin/Globulin Ratio Lipase Urine Color Urine Clarity Urine pH Ur Specific [place] Urine Protein Urine Glucose (UA) Urine Ketones Urine Occult Blood Urine Nitrite Urine Bilirubin Urine Urobilinogen Ur Leukocyte Esterase Urine RBC Urine WBC Ur Squamous Epith Cells Urine Bacteria Urine Mucus Radiography Diagnostic Testing: Radiology Impression Abdomen/Pelvis CT 07/01/20 11:51 IMPRESSION: 6.7 cm x 6.3 cm from the cystic mass in the inferior aspect of the right lobe of liver as described. 3.2 cm x 1.9 cm cystic structure in the subcapsular region of the right lobe of the liver inferiorly most likely related to the ablation procedure. Electronically Signed: Moses Orozco MD at 14:21 EDT , Service support , Treatment and Re-Evaluation Comments:: Emergency department course: Patient had an IV placed. She was given a liter normal saline. She took her home Phenergan while here. She is resting comfortably. Treatment plan: The patient was discussed with Dr. Vallejo. She will be discharged with instructions to follow-up with him for further evaluation and treatment. He is going to send her CT onto the physician who did her liver ablation. Return to the emergency department for any worsening symptoms. Disposition: To home in improved and stable condition. This note was generated with [employer] dictation software. It may contain incorrect words, spelling, and punctuation that were not noted in review of the chart prior to signing. Discharge Plan Triage Chief Complaint: Abd Pain ED Provider: Edi Gray Dx/Rx/DC Orders Clinical Impression: Malignant neoplasm of colon metastatic to liver Instructions: ED Abdominal Pain Unkn Cause Fem Prescriptions: No Action morphine 30 mg capsule, ER multiphase 24 hr 15 mg PO TID RF: 0 valsartan 160 mg tablet 160 mg PO DAILY RF: 0 hydroxychloroquine 200 mg tablet 200 mg PO DAILY RF: 0 fenofibrate 54 mg tablet 54 mg PO DAILY Qty: 90 RF: 4 magnesium oxide 400 mg magnesium tablet 400 mg PO DAILY Qty: 90 RF: 4 metoprolol succinate 50 MG tablet 50 mg PO QHS RF: 0 amlodipine 10 MG tablet 10 mg PO QHS RF: 0 aspirin 81 MG tablet,chewable 81 mg PO DAILY@0800 RF: 0 metformin 500 MG tablet 1,000 mg PO DAILY RF: 0 cyanocobalamin (vitamin B-12) 2,000 MCG tablet 500 mcg PO DAILY RF: 0 acetaminophen 500 MG tablet 1,000 mg PO TID PRN (Reason: Pain 1-10 Or Fever) RF: 0 folic acid 0.8 MG tablet 800 mg PO DAILY RF: 0 omega-3 fatty acids-fish oil 1 EACH capsule 1 ea PO QHS RF: 0 sennosides-docusate sodium 1 TABLET tablet 1 tab PO DAILY RF: 0 omeprazole 20 MG capsule 40 mg PO DAILY RF: 0 umyrgsrdhi-zmrqhjbzsxu-vwxxhh 30 GM gel 30 gm TP TID PRN (Reason: arthritis pain) RF: 0 promethazine [Phenergan] 25 mg Tablet 25 mg PO Q6H PRN (Reason: Nausea) RF: 0 furosemide 20 mg tablet 10 mg PO DAILY Qty: 45 RF: 4 Primary Care Provider: Yasemin Carney Referrals: Yasemin Carney MD [Primary Care Provider] - Jerry Vallejo DO [STAFF PHYSICIAN] - 3-5 Days Disposition Disposition: Home, self care Discharge Date/Time: 07/01/20 16:08
[2020-07-01 16:08] LABS: Reflex Lactate? Y
== END 2020-07-01 16:08 | disposition home or self-care (01) ==
LOC: ED 12:02
PROVIDERS: Emergency Provider Emergency Medicine; PCP Internal Medicine
DX: C18.9 Malignant neoplasm of colon, unspecified (principal); C78.7 Secondary malignant neoplasm of liver and intrahepatic bile duct; E66.01 Morbid (severe) obesity due to excess calories; I13.0 Hypertensive heart and chronic kidney disease with heart failure and stage 1 through stage 4 chronic kidney disease, or unspecified chronic kidney disease; E11.22 Type 2 diabetes mellitus with diabetic chronic kidney disease; I50.32 Chronic diastolic (congestive) heart failure; N18.30 Chronic kidney disease, stage 3 unspecified; K21.9 Gastro-esophageal reflux disease without esophagitis; Z79.899 Other long term (current) drug therapy; Z79.84 Long term (current) use of oral hypoglycemic drugs; Z79.82 Long term (current) use of aspirin
CPT/HCPCS: 36591; 74177; 80053; 81001; 83605; 83690; 85025; 87040; 87086; 87088; 99284; Q9967; A4216

== ENCOUNTER 2020-08-02 21:41 | Emergency (ER) | payer MEDICARE, SELFPAY ==
[2020-08-02 21:43] VITALS: BP 120/66; PULSE 79; RESP 18; TEMP 37.5; O2SAT 97; BMI 37.9
--- NOTE | 2020-08-02 23:52 | EX.ED.DYSGE1 ---
HPI History of Present Illness Chief Complaint: Flank Pain Informant: patient Onset/Context/Timing Onset: Yesterday Context: Gradual Onset Timing: Continuous Current Severity: Moderate Maximum Severity: Severe Narrative Narrative: Patient is a 69-year-old female with medical history significant for colon cancer with liver metastasis. The patient states that she underwent colon resection last year. She was found to have liver mets. She states that they have been following it with CTs and ultrasounds over the past 3 months. She had a liver ablation in April. She states from time to time, she will get a burning pain in her right upper quadrant. She states that it started yesterday. Patient is on chronic pain medication for back pain. She states normally, this does help with her symptoms. She denies nausea or vomiting. She denies fevers or chills. Her last chemo was 6 weeks ago. Prior similar symptoms: No Recent Illness/Hospitalization: No PFSH PFSH Medical History Breast cancer Chronic diastolic (congestive) heart failure Chronic low back pain CKD (chronic kidney disease), stage III Colon cancer COPD (chronic obstructive pulmonary disease) Essential hypertension Fibromyalgia Gastroesophageal reflux disease Hyperlipidemia Morbid obesity Obstructive sleep apnea syndrome Rheumatoid arthritis Type 2 diabetes mellitus Home Medications amlodipine 10 mg PO QHS 05/10/14 [History Last Taken 05/09/14 22:00] aspirin 81 mg PO DAILY@0800 05/10/14 [History Last Taken 05/20/17] metformin 1,000 mg PO DAILY 05/10/14 [History Last Taken 05/09/14 22:00] metoprolol succinate 50 mg PO QHS 05/10/14 [History Last Taken 05/09/14 22:00] cyanocobalamin (vitamin B-12) 500 mcg PO DAILY 09/02/15 [History Last Taken Unknown] acetaminophen 1,000 mg PO TID PRN 10/29/15 [History Last Taken Unknown] folic acid 800 mg PO DAILY 05/23/17 [History Last Taken Unknown] omega-3 fatty acids-fish oil 1 ea PO QHS 05/23/17 [History Last Taken 05/20/17] morphine 30 mg capsule,extended release 24 hr multiphase 15 mg PO TID cap 10/09/18 [History Last Taken 01/16/20 09:30 15 MG] fenofibrate 54 mg tablet 54 mg PO DAILY #90 tab 10/16/19 [Rx Last Taken Unknown] hydroxychloroquine 200 mg tablet 200 mg PO DAILY tab 10/16/19 [History Last Taken Unknown] magnesium oxide 400 mg PO DAILY #90 tab 10/16/19 [Rx Last Taken Unknown] valsartan 160 mg tablet 160 mg PO DAILY tab 10/16/19 [History Last Taken 01/16/20 09:30 160 MG] furosemide 20 mg tablet 10 mg PO DAILY #45 tab 12/03/19 [Rx Last Taken Unknown] qeblswfnsc-cmvrqklratq-bhmugi 30 gm TP TID PRN 01/14/20 [History Last Taken Unknown] omeprazole 40 mg PO DAILY 01/14/20 [History Last Taken 01/16/20 09:30 20 MG] sennosides-docusate sodium 1 tab PO DAILY 01/14/20 [History Last Taken Unknown] promethazine [Phenergan] 25 mg PO Q6H PRN 07/01/20 [History Last Taken Unknown] Allergy/AdvReac Type Severity Reaction Status Date / Time ciprofloxacin [From Cipro] Allergy Rash Verified 07/01/20 11:24 ciprofloxacin HCl Allergy Rash Verified 07/01/20 11:24 [From Cipro] dicyclomine Allergy Rash Verified 07/01/20 11:24 erythromycin base Allergy Rash Verified 07/01/20 11:24 [From E-Mycin] ketoprofen [From Oruvail] Allergy Itching Verified 07/01/20 11:24 loratadine [From Claritin] Allergy Rash Verified 07/01/20 11:24 nabumetone [From Relafen] Allergy Rash Verified 07/01/20 11:24 naproxen Allergy Swelling Verified 07/01/20 11:24 Qgxhpdz-Yca-Xtf Reductase Allergy Itching Verified 07/01/20 11:24 Inhibitor Family History Father Heart disease Myocardial infarction late 50's Mother Cancer Brother Cancer Sister Lupus Surgical History (Updated 08/03/20 @ 00:25 by Ghassan Dan) Ablation to lumbar spine (07/2017) History of History of cholecystectomy History of lumpectomy of right breast (2010) History of tonsillectomy and adenoidectomy History of tubal ligation Social History Smoking Status: Never smoker ROS ROS ED Constitutional Constitutional ED: Denies chills or fever(s) Eyes Eyes: Denies blurry vision or change in vision ENT ENT ED: Denies ear pain or sore throat Cardiovascular Cardiovascular: Denies chest pain or palpitations Respiratory/Chest Respiratory/Chest: Denies cough, dyspnea or dyspnea on exertion Gastrointestinal Gastrointestinal: Reports abdominal pain; Denies nausea or vomiting Genitourinary Genitourinary ED: Denies dysuria or urinary frequency Musculoskeletal Musculoskeletal: Denies arthralgias or myalgias Integumentary Denies rash Neurologic Neurologic: Denies headache(s) or paresthesias Psychiatric Psychiatric: Denies anxiety or depression Endocrine Endocrinology: Denies polydipsia or polyuria Allergic/Immunologic Allergic/Immunologic ED: Denies urticaria EXAM Physical Exam Const Vital Signs: 08/02/20 21:43 08/03/20 00:11 08/03/20 00:27 Temperature 99.5 F H Temperature Source Temporal Pulse Rate 79 69 Respiratory Rate 18 15 Respiratory Effort Normal Respiratory Pattern Normal Blood Pressure 120/66 146/72 H Blood Pressure Mean 84 96 Pulse Ox 97 97 Oxygen Delivery Method Room Air Room Air Positive well nourished and well developed General Appearance ED: well developed HEENT Reports normocephalic, head/scalp atraumatic and moist mucous membranes Eyes PERRL and EOMs intact bilaterally Neck no lymphadenopathy and supple General: Negative for tenderness Chest Wall inspection of chest normal Resp normal respiratory effort and clear to auscultation bilaterally Cardio regular rate, regular rhythm and no murmurs GI normal to inspection, nondistended, normoactive bowel sounds GI Narrative: Tender in right upper quadrant without rebound or guarding Palpation: tender; Negative for guarding or rebound tenderness present Back/Spine no CVA tenderness Cervical Spine: Negative for cervical spine tenderness Thoracic Spine / Upper Back: Negative for thoracic spinal tenderness Extremity normal to inspection General Extremety ED: Negative for tenderness Neuro oriented x3 and CN's II-XII intact bilaterally Neuro Narrative: No focal deficits appreciated. Sensorium / Orientation: alert Psych mental status grossly normal Skin no rashes or lesions noted, no wounds and skin turgor normal MDM MDM MDM Narrative Medical decision making narrative: Patient presents with right upper quadrant pain. She has known hematoma and has had recent ablation a few months ago. I was able to review her ultrasound from 4 days ago. Lesions: Unchanged ablation defect in the right lobe measures approximately 7.4 x 7.5 x 4.6 cm. Hematoma along the lateral right lobe of the liver measures 5.5 x 3.2 x 4.9 cm and has not appreciably changed in size given differences in technique. Patient's port was accessed. She was given fluids and analgesics. She had marked improvement of her pain. She does have a mild leukocytosis however, her rest of her labs are at her baseline. I did obtain CT imaging which shows questionable enlargement of the ablation defect and hematoma. However, when I compare this to her ultrasound from 4 days ago based on technique, the size is the same. She is had no infectious symptoms. She is had no fever. Her pain is controlled. At this point, I do feel that she is safe to follow-up with her oncologist. She will be discharged home. Impression 1. Right upper quadrant abdominal pain secondary to hematoma Lab Data Attestation: I reviewed the patient's lab results. Labs: Laboratory Results - last 24 hr 08/02/20 08/02/20 23:58 23:58 WBC 13.2 H RBC 3.79 L Hgb 10.9 L Hct 34.3 L MCV 90.5 MCH 28.8 MCHC 31.8 L RDW Std Deviation 54.2 H RDW Coeff of Julianna 16.4 H Plt Count 282 MPV 10.1 Immature Gran % (Auto) 2.600 H Neut % (Auto) 70.4 H Lymph % (Auto) 12.3 L [place] % (Auto) 13.5 H Eos % (Auto) 0.5 Baso % (Auto) 0.7 Absolute Neuts (auto) 9.3 H Absolute Lymphs (auto) 1.62 Nucleated RBC % 0 Diff Path Review May foll Sodium 136 Potassium 4.3 Chloride 101 Carbon Dioxide 28.0 Anion Gap 7 BUN 14 Creatinine 1.22 H Estim Creat Clear Calc 34.99 Est GFR (MDRD) Af Amer 56 L Est GFR (MDRD) Non-Af 46 L BUN/Creatinine Ratio 11.5 Glucose 144 H Calcium 9.5 Total Bilirubin 0.30 AST 23 ALT 19 Alkaline Phosphatase 118 H Total Protein 6.9 Albumin 2.6 L Globulin 4.3 H Albumin/Globulin Ratio 0.6 L Lipase 23 L Radiography Diagnostic Testing: Radiology Impression Abdomen/Pelvis CT 08/03/20 23:49 IMPRESSION: Right liver lobe intraparenchymal cystic/fluid collection essentially stable in the interval currently measuring approximately 6.1 x 5.4 x 7.0 cm which may represent postprocedural changes. Interval enlargement of a second fluid collection now seen in the right abdominal wall with peripheral enhancement, cannot exclude an abscess. Clinical correlation recommended. Electronically Signed: Mary Palmer MD at 1:32 EDT , Service support , ADDENDUM: 08/03/20 0141 IMPRESSION: Right liver lobe intraparenchymal cystic/fluid collection essentially stable in the interval currently measuring approximately 6.1 x 5.4 x 7.0 cm which may represent postprocedural changes. Interval enlargement of a second fluid collection now seen in the right abdominal wall with peripheral enhancement, cannot exclude an abscess. Clinical correlation recommended. N.B. : The above Results were Read Back by Mary Palmer MD to Russel Colon MD, and understanding confirmed on 08/03/2020 01:34:42 (ET). Electronically Signed: Mary Palmer MD at 1:32 EDT , Service support , Discharge Plan Triage Chief Complaint: Flank Pain ED Provider: Russel Colon Dx/Rx/DC Orders Instructions: ED Abdominal Pain, Adhesions Prescriptions: No Action morphine 30 mg capsule, ER multiphase 24 hr 15 mg PO TID RF: 0 valsartan 160 mg tablet 160 mg PO DAILY RF: 0 hydroxychloroquine 200 mg tablet 200 mg PO DAILY RF: 0 fenofibrate 54 mg tablet 54 mg PO DAILY Qty: 90 RF: 4 magnesium oxide 400 mg magnesium tablet 400 mg PO DAILY Qty: 90 RF: 4 metoprolol succinate 50 MG tablet 50 mg PO QHS RF: 0 amlodipine 10 MG tablet 10 mg PO QHS RF: 0 aspirin 81 MG tablet,chewable 81 mg PO DAILY@0800 RF: 0 metformin 500 MG tablet 1,000 mg PO DAILY RF: 0 cyanocobalamin (vitamin B-12) 2,000 MCG tablet 500 mcg PO DAILY RF: 0 acetaminophen 500 MG tablet 1,000 mg PO TID PRN (Reason: Pain 1-10 Or Fever) RF: 0 folic acid 0.8 MG tablet 800 mg PO DAILY RF: 0 omega-3 fatty acids-fish oil 1 EACH capsule 1 ea PO QHS RF: 0 sennosides-docusate sodium 1 TABLET tablet 1 tab PO DAILY RF: 0 omeprazole 20 MG capsule 40 mg PO DAILY RF: 0 mlvkjbgszk-hdivanvgztc-bqafqn 30 GM gel 30 gm TP TID PRN (Reason: arthritis pain) RF: 0 promethazine [Phenergan] 25 mg Tablet 25 mg PO Q6H PRN (Reason: Nausea) RF: 0 furosemide 20 mg tablet 10 mg PO DAILY Qty: 45 RF: 4 Primary Care Provider: Yasemin Carney Referrals: Yasemin Carney MD [Primary Care Provider] -
[2020-08-03 00:02] LABS: Absolute Lymphocyte Count 1.62 X10^3/uL (0.83-4.51); Absolute Neutrophil Count 9.3 X10^3/uL (2.0-7.7); Basophil# 0.09 X10^3/uL; Basophil% 0.7 % (0-1); Differential Indicated SCAN CRITERIA MET; Eosinophil# 0.07 X10^3/uL; Eosinophils% 0.5 % (0-5); Hematocrit 34.3 % (37-47); Hemoglobin 10.9 g/dL (12.0-15.0); Lymphocyte # 1.62 X10^3/ul (0.83-4.51); Lymphocyte % 12.3 % (19-41); Mean Corp Hgb Conc 31.8 g/dL (32-36); Mean Corpuscular Hgb 28.8 pg (27.0-32.0); Mean Corpuscular Volume 90.5 fL (81-99); Mean Platelet Vol. 10.1 fl (6.2-12.0); Monocyte# 1.79 X10^3/uL; Monocyte% 13.5 % (0-10); NRBC Flagged by Analyzer 0 % (0-5); Neutrophil # 9.31 X10^3/uL (2.7-7.7); Neutrophil % 70.4 % (47-70); POSITIVE DIFFERENTIAL YES; Platelet Count 282 K/mm3 (150-450); RBC Distribution Width CV 16.4 % (11.6-14.6); RBC Distribution Width SD 54.2 fl (35.1-43.9); Red Blood Count 3.79 M/mm3 (4.2-5.4); White Blood Count 13.2 K/mm3 (4.4-11.0)
[2020-08-03 00:11] VITALS: BP 146/72; PULSE 69; RESP 15; O2SAT 97
[2020-08-03] MEDS: Ondansetron 4 MG/2 ML Vial IV (00:13)
[2020-08-03] MEDS: HYDROmorphone 1 MG/ML Syringe IV (00:14)
[2020-08-03 00:19] LABS: ALB/GLOB Ratio 0.6 RATIO (0.9-2.4); AST(SGOT) 23 U/L (15-37); Alanine Aminotransfer ALT/SGPT 19 U/L (13-56); Albumin, Serum 2.6 g/dL (3.2-5.0); Alkaline Phosphatase 118 U/L (45-117); Anion Gap 7 (5-15); BUN 14 mg/dL (7-18); BUN/Creat Ratio 11.5 RATIO (10-20); Calcium,Total 9.5 mg/dL (8.5-10.1); Chloride 101 mmol/L (98-107); Creatinine, Serum 1.22 mg/dL (0.55-1.02); EST Glomerular Filtration Rate 46 mL/min (>60); Est Glom Filt Rate - Afr Amer 56 mL/min (>60); Estimated Creatinine Clearance 34.99 ml/min; Globulin 4.3 g/dL (2.2-4.2); Glucose 144 mg/dL (74-106); Lipase 23 U/L (73-393); Potassium 4.3 mmol/L (3.5-5.1); Protein, Total 6.9 g/dL (6.4-8.2); Sodium Level 136 mmol/L (136-145)
[2020-08-03 01:59] VITALS: BP 118/57; PULSE 68; RESP 17; O2SAT 95
[2020-08-03 13:04] LABS: Pathologist Review Reviewed
--- NOTE | 2020-08-03 23:49 | CT_ITS ---
We are attempting to reach an attending provider to discuss findings. An addendum with communication details will be sent when the communication is complete. STUDY: CT ABDOMEN AND PELVIS WITH CONTRAST REASON FOR EXAM: Female, 69 years old. ruq pain, h/o hemangioma RADIATION DOSAGE (If Supplied By Facility): CTDIvol = ( 20.53 ) mGy, DLP = ( 1793.78 ) mGycm TECHNIQUE: Transaxial images were obtained from the dome of the diaphragm to the symphysis pubis without oral contrast. IV 100mL Isovue-370 was administered. Sagittal and coronal images were reconstructed. Individualized dose optimization techniques were used for this CT. COMPARISON: None. FINDINGS: Mild bilateral lower lobe, right middle lobe atelectasis. No pleural effusion or pneumothorax. Normal cardiac size. Redemonstrated is right liver lobe fluid collection currently measuring 6.1 x 5.4 cm in axial dimension by 7.0 cm in craniocaudal dimension, not significantly changed in the interval. This connects through a tract with a second fluid collection identified in the right lateral abdominal wall measuring approximately 3.9 x 3.5 cm in axial dimension by 4.0 cm in craniocaudal dimension. There is surrounding peripheral enhancement and concerning for an abscess. There are surrounding stranding/inflammatory changes with thickening of the abdominal wall. Gallbladder is not visualized suggestive of previous cholecystectomy. Normal spleen. Normal pancreas. Normal bilateral adrenal glands. Normal right kidney. Normal left kidney. Normal visualized stomach. Normal small intestine. Normal colon. There is non-visualization of the appendix. There is diffuse atherosclerotic calcification of the abdominal aorta, without a demonstrated aneurysm. Normal inferior vena cava. Normal retroperitoneum. Normal urinary bladder. There is atrophy of the uterus. Normal abdominal wall. There are diffuse degenerative changes of the visualized lumbar spine. CT/Abdomen/Pelvis W IV Cont ONLY IMPRESSION: Right liver lobe intraparenchymal cystic/fluid collection essentially stable in the interval currently measuring approximately 6.1 x 5.4 x 7.0 cm which may represent postprocedural changes. Interval enlargement of a second fluid collection now seen in the right abdominal wall with peripheral enhancement, cannot exclude an abscess. Clinical correlation recommended. Electronically Signed: Mary Palmer MD at 1:32 EDT , Service support ,
== END 2020-08-03 02:45 | disposition home or self-care (01) ==
LOC: ED 08-03 02:05
PROVIDERS: Emergency Provider Emergency Medicine; PCP Internal Medicine
DX: K76.89 Other specified diseases of liver (principal); R10.11 Right upper quadrant pain; M54.5 Low back pain; G89.29 Other chronic pain; I13.0 Hypertensive heart and chronic kidney disease with heart failure and stage 1 through stage 4 chronic kidney disease, or unspecified chronic kidney disease; I50.32 Chronic diastolic (congestive) heart failure; N18.30 Chronic kidney disease, stage 3 unspecified; E11.22 Type 2 diabetes mellitus with diabetic chronic kidney disease; J44.9 Chronic obstructive pulmonary disease, unspecified; M06.9 Rheumatoid arthritis, unspecified; M79.7 Fibromyalgia; E78.5 Hyperlipidemia, unspecified; K21.9 Gastro-esophageal reflux disease without esophagitis; G47.33 Obstructive sleep apnea (adult) (pediatric); E66.01 Morbid (severe) obesity due to excess calories; Z79.82 Long term (current) use of aspirin; Z79.84 Long term (current) use of oral hypoglycemic drugs; Z79.899 Other long term (current) drug therapy; Z85.038 Personal history of other malignant neoplasm of large intestine; Z85.05 Personal history of malignant neoplasm of liver
CPT/HCPCS: 36591; 74177; 80053; 83690; 85025; 96361; 96374; 96375; 99283; J7040; Q9967; A4216; J2405

== ENCOUNTER → 2020-08-10 15:41 | Outpatient (CLI) | payer MEDICARE, SELFPAY ==
[2020-08-02 21:43] VITALS: BMI 37.9
[2020-08-10 18:13] LABS: Basophil# 0.06 X10^3/uL; Basophil% 0.4 % (0-1); Eosinophil# 0.06 X10^3/uL; Eosinophils% 0.4 % (0-5); Hematocrit 36.7 % (37-47); Hemoglobin 11.3 g/dL (12.0-15.0); Lymphocyte % 7.3 % (19-41); Mean Corp Hgb Conc 30.8 g/dL (32-36); Mean Corpuscular Hgb 28.4 pg (27.0-32.0); Mean Corpuscular Volume 92.2 fL (81-99); Mean Platelet Vol. 10.7 fl (6.2-12.0); Monocyte# 1.55 X10^3/uL; Monocyte% 10.3 % (0-10); NRBC Flagged by Analyzer 0 % (0-5); Neutrophil % 79.4 % (47-70); POSITIVE DIFFERENTIAL YES; Platelet Count 361 K/mm3 (150-450); RBC Distribution Width CV 16.9 % (11.6-14.6); RBC Distribution Width SD 57.5 fl (35.1-43.9); Red Blood Count 3.98 M/mm3 (4.2-5.4); White Blood Count 15.1 K/mm3 (4.4-11.0)
[2020-08-10 18:28] LABS: ALB/GLOB Ratio 0.6 RATIO (0.9-2.4); AST(SGOT) 21 U/L (15-37); Alanine Aminotransfer ALT/SGPT 17 U/L (13-56); Albumin, Serum 2.7 g/dL (3.2-5.0); Alkaline Phosphatase 107 U/L (45-117); Anion Gap 6 (5-15); BUN 17 mg/dL (7-18); BUN/Creat Ratio 14.5 RATIO (10-20); Calcium,Total 9.7 mg/dL (8.5-10.1); Chloride 103 mmol/L (98-107); Creatinine, Serum 1.17 mg/dL (0.55-1.02); EST Glomerular Filtration Rate 48 mL/min (>60); Est Glom Filt Rate - Afr Amer 59 mL/min (>60); Globulin 4.4 g/dL (2.2-4.2); Glucose 122 mg/dL (74-106); Protein, Total 7.1 g/dL (6.4-8.2); Sodium Level 136 mmol/L (136-145); Uric Acid 5.6 mg/dL (2.6-6.0)
[2020-08-10 18:50] LABS: Differential Indicated SCAN CRITERIA MET
[2020-08-10 19:03] LABS: Differential Comment SCANNED
[2020-08-11 12:09] LABS: Pathologist Review Reviewed
== END ==
PROVIDERS: PCP Internal Medicine; Referring Provider Internal Medicine Rheumatology; Visit Provider Internal Medicine Rheumatology
DX: M06.4 Inflammatory polyarthropathy (principal); M79.7 Fibromyalgia; M15.9 Polyosteoarthritis, unspecified; M47.897 Other spondylosis, lumbosacral region; N18.9 Chronic kidney disease, unspecified; Z79.899 Other long term (current) drug therapy; Z85.3 Personal history of malignant neoplasm of breast
CPT/HCPCS: 36415; 80053; 84550; 85025

== ENCOUNTER 2020-09-28 20:36 | Emergency (ER) | payer MEDICARE, SELFPAY ==
[2020-09-28 20:39] VITALS: BP 162/92; PULSE 100; RESP 18; TEMP 36.6; O2SAT 97; BMI 38.6
--- NOTE | 2020-09-28 22:09 | EX.ED.DYSGE1 ---
HPI History of Present Illness Chief Complaint: Edema Informant: patient Narrative Narrative: Patient presents with discern for reaction to her third Maderna vaccine that she got today at about 230. She states she got the third shot in her left arm this afternoon. Few hours later she started get some itching of her eyes and then she noted that she had edema of her eyelids. She took a Benadryl at home but she now recalls that it could be many years old. She never had any reaction after taking it. She did not get tired or sleepy. She denies any chest pain palpitations shortness of breath nausea vomiting or abdominal cramping or diarrhea. She has no history of anaphylaxis. She does have multiple medication allergies that cause rashes. She has not developed a rash. She is on an ARB for high blood pressure. However she never had angioedema to JEFFREY inhibitors. She has been on valsartan for a long time. Cold compress on the eyes made it better. Nothing made it worse. [facility] Medical History Breast cancer Chronic diastolic (congestive) heart failure Chronic low back pain CKD (chronic kidney disease), stage III Colon cancer COPD (chronic obstructive pulmonary disease) Essential hypertension Fibromyalgia Gastroesophageal reflux disease Hyperlipidemia Morbid obesity Obstructive sleep apnea syndrome Rheumatoid arthritis Type 2 diabetes mellitus Home Medications amlodipine 10 mg PO QHS 05/10/14 [History Last Taken 05/09/14 22:00] aspirin 81 mg PO DAILY@0800 05/10/14 [History Last Taken 05/20/17] metformin 1,000 mg PO DAILY 05/10/14 [History Last Taken 05/09/14 22:00] metoprolol succinate 50 mg PO QHS 05/10/14 [History Last Taken 05/09/14 22:00] cyanocobalamin (vitamin B-12) 500 mcg PO DAILY 09/02/15 [History Last Taken Unknown] acetaminophen 1,000 mg PO TID PRN 10/29/15 [History Last Taken Unknown] folic acid 800 mg PO DAILY 05/23/17 [History Last Taken Unknown] omega-3 fatty acids-fish oil 1 ea PO QHS 05/23/17 [History Last Taken 05/20/17] morphine 30 mg capsule,extended release 24 hr multiphase 15 mg PO TID cap 09/04/19 [History Last Taken 01/16/20 09:30 15 MG] fenofibrate 54 mg tablet 54 mg PO DAILY #90 tab 10/16/19 [Rx Last Taken Unknown] hydroxychloroquine 200 mg tablet 200 mg PO DAILY tab 10/16/19 [History Last Taken Unknown] magnesium oxide 400 mg PO DAILY #90 tab 10/16/19 [Rx Last Taken Unknown] valsartan 160 mg tablet 160 mg PO DAILY tab 10/16/19 [History Last Taken 01/16/20 09:30 160 MG] furosemide 20 mg tablet 10 mg PO DAILY #45 tab 12/03/19 [Rx Last Taken Unknown] lgrtvmofhl-qktjonhvpif-jofpvo 30 gm TP TID PRN 01/14/20 [History Last Taken Unknown] omeprazole 40 mg PO DAILY 01/14/20 [History Last Taken 01/16/20 09:30 20 MG] sennosides-docusate sodium 1 tab PO DAILY 01/14/20 [History Last Taken Unknown] promethazine [Phenergan] 25 mg PO Q6H PRN 07/01/20 [History Last Taken Unknown] Allergy/AdvReac Type Severity Reaction Status Date / Time ciprofloxacin [From Cipro] Allergy Rash Verified 09/28/20 20:39 ciprofloxacin HCl Allergy Rash Verified 09/28/20 20:39 [From Cipro] dicyclomine Allergy Rash Verified 09/28/20 20:39 erythromycin base Allergy Rash Verified 09/28/20 20:39 [From E-Mycin] ketoprofen [From Oruvail] Allergy Itching Verified 09/28/20 20:39 loratadine [From Claritin] Allergy Rash Verified 09/28/20 20:39 nabumetone [From Relafen] Allergy Rash Verified 09/28/20 20:39 naproxen Allergy Swelling Verified 09/28/20 20:39 Efjjjpr-Umm-Bmz Reductase Allergy Itching Verified 09/28/20 20:39 Inhibitor Family History Father Heart disease Myocardial infarction late 50's Mother Cancer Brother Cancer Sister Lupus Surgical History Ablation to lumbar spine (07/2017) History of History of cholecystectomy History of lumpectomy of right breast (2010) History of tonsillectomy and adenoidectomy History of tubal ligation Social History Smoking Status: Never smoker ROS ROS ED Constitutional Constitutional ED: Denies chills or fever(s) Eyes Eyes: Reports other Details: Swollen eyelids as above. ; Denies blurry vision, change in vision or diplopia ENT ENT ED: Denies ear pain or rhinorrhea Cardiovascular Cardiovascular: Denies chest pain or palpitations Respiratory/Chest Respiratory/Chest: Denies cough, dyspnea or dyspnea on exertion Gastrointestinal Gastrointestinal: Denies diarrhea or vomiting Genitourinary Genitourinary ED: Denies dysuria Musculoskeletal Musculoskeletal: Denies arthralgias, back pain, myalgias or neck pain Integumentary Reports other Details: See history of present illness. No development of hives or rash. ; Denies rash Neurologic Neurologic: Denies headache(s) or weakness Endocrine Endocrinology: Denies polydipsia or polyuria Allergic/Immunologic Allergic/Immunologic ED: Denies mouth swelling, tongue swelling or urticaria EXAM Physical Exam Const Vital Signs: 09/28/20 20:39 09/28/20 22:00 Temperature 97.8 F Temperature Source Temporal Pulse Rate 100 Respiratory Rate 18 Respiratory Effort Normal Non-Labored Respiratory Pattern Normal Blood Pressure 162/92 H Blood Pressure Mean 115 Pulse Ox 97 Oxygen Delivery Method Room Air Positive well nourished General Appearance ED: NAD HEENT Reports moist mucous membranes HEENT Narrative: No intraoral swelling. No change in voice. Negative for trauma or tenderness Eyes PERRL and EOMs intact bilaterally Eyes Narrative: Mild swelling of the lower eyelid on the right. There may be a minimal amount on the left. No erythema. The eye itself is not injected or inflamed. No pain with motion. No proptosis. General Eye ED: Negative for pale conjunctiva or scleral icterus Neck no lymphadenopathy and supple Neck Narrative: No lymph nodes or stridor. Chest Wall inspection of chest normal Resp normal respiratory effort and clear to auscultation bilaterally Cardio regular rate, regular rhythm and no murmurs GI normal to inspection, nondistended, normoactive bowel sounds and non-tender Palpation: soft Back/Spine no CVA tenderness Extremity normal to inspection General Extremety ED: Negative for edema or tenderness General Extremity: Negative for edema Neuro oriented x3 Sensorium / Orientation: alert Psych mental status grossly normal Skin no rashes or lesions noted MDM MDM MDM Narrative Medical decision making narrative: Patient has a local reaction of her eyes. Temporally, this matches her new vaccine she got today. She is on an ARB but I think this is highly unlikely as a source. Her symptoms improved with 1 Benadryl and ice packs. I don't think she needs a further work-up. We did discuss things to watch for specifically further swelling, systemic reaction, trouble breathing or other concerns. Discharge Plan Triage Chief Complaint: Edema ED Provider: Gerry Lopez Dx/Rx/DC Orders Clinical Impression: Adverse effect of COVID-19 vaccine Instructions: ED Drug Reaction, Other Prescriptions: No Action morphine 30 mg capsule, ER multiphase 24 hr 15 mg PO TID RF: 0 valsartan 160 mg tablet 160 mg PO DAILY RF: 0 hydroxychloroquine 200 mg tablet 200 mg PO DAILY RF: 0 fenofibrate 54 mg tablet 54 mg PO DAILY Qty: 90 RF: 4 magnesium oxide 400 mg magnesium tablet 400 mg PO DAILY Qty: 90 RF: 4 metoprolol succinate 50 MG tablet 50 mg PO QHS RF: 0 amlodipine 10 MG tablet 10 mg PO QHS RF: 0 aspirin 81 MG tablet,chewable 81 mg PO DAILY@0800 RF: 0 metformin 500 MG tablet 1,000 mg PO DAILY RF: 0 cyanocobalamin (vitamin B-12) 2,000 MCG tablet 500 mcg PO DAILY RF: 0 acetaminophen 500 MG tablet 1,000 mg PO TID PRN (Reason: Pain 1-10 Or Fever) RF: 0 folic acid 0.8 MG tablet 800 mg PO DAILY RF: 0 omega-3 fatty acids-fish oil 1 EACH capsule 1 ea PO QHS RF: 0 sennosides-docusate sodium 1 TABLET tablet 1 tab PO DAILY RF: 0 omeprazole 20 MG capsule 40 mg PO DAILY RF: 0 dowsnbmdfm-dcmzdjbfwsf-yzymum 30 GM gel 30 gm TP TID PRN (Reason: arthritis pain) RF: 0 promethazine [Phenergan] 25 mg Tablet 25 mg PO Q6H PRN (Reason: Nausea) RF: 0 furosemide 20 mg tablet 10 mg PO DAILY Qty: 45 RF: 4 Primary Care Provider: Yasemin Carney Referrals: Yasemin Carney MD [Primary Care Provider] - 3-5 Days if not improving
== END 2020-09-28 22:57 | disposition home or self-care (01) ==
PROVIDERS: Emergency Provider Emergency Medicine; PCP Internal Medicine
DX: R22.0 Localized swelling, mass and lump, head (principal); T50.B95A Adverse effect of other viral vaccines, initial encounter; Y92.9 Unspecified place or not applicable; I13.0 Hypertensive heart and chronic kidney disease with heart failure and stage 1 through stage 4 chronic kidney disease, or unspecified chronic kidney disease; I50.32 Chronic diastolic (congestive) heart failure; E11.22 Type 2 diabetes mellitus with diabetic chronic kidney disease; N18.30 Chronic kidney disease, stage 3 unspecified; J44.9 Chronic obstructive pulmonary disease, unspecified; E78.5 Hyperlipidemia, unspecified; M06.9 Rheumatoid arthritis, unspecified; M79.7 Fibromyalgia; M54.5 Low back pain; G89.29 Other chronic pain; K21.9 Gastro-esophageal reflux disease without esophagitis; G47.33 Obstructive sleep apnea (adult) (pediatric); E66.01 Morbid (severe) obesity due to excess calories; Z79.82 Long term (current) use of aspirin; Z79.84 Long term (current) use of oral hypoglycemic drugs; Z79.899 Other long term (current) drug therapy
CPT/HCPCS: 99282

== ENCOUNTER → 2020-10-27 12:25 | Outpatient (CLI) | payer MEDICARE, SELFPAY ==
[2020-10-27 15:35] LABS: Amphetamine Urine VISTA NEGATIVE (<1000 ng/mL); Barbiturate Urine VISTA NEGATIVE (< 200 ng/mL); Benzodiazepine Urine VISTA NEGATIVE (< 200 ng/mL); Cocaine Urine VISTA NEGATIVE (< 300 ng/mL); Ecstacy Urine VISTA NEGATIVE (< 500 ng/mL); Methadone Urine VISTA NEGATIVE (< 300 ng/mL); PCP Urine VISTA NEGATIVE (< 25 ng/mL); THC Urine VISTA NEGATIVE (< 50 ng/mL); Vista UDS pH Range 6
== END ==
PROVIDERS: PCP Internal Medicine; Referring Provider Anesthesiology Pain Medicine; Visit Provider Anesthesiology Pain Medicine
DX: F11.20 Opioid dependence, uncomplicated (principal)
CPT/HCPCS: 80307

== ENCOUNTER → 2020-11-11 15:43 | Outpatient (CLI) | payer MEDICARE, SELFPAY ==
[2020-11-11 18:03] LABS: Absolute Neutrophil Count 2.5 X10^3/uL (2.0-7.7); Basophil# 0.03 X10^3/uL; Basophil% 0.6 % (0-1); Eosinophil# 0.05 X10^3/uL; Eosinophils% 1.1 % (0-5); Hematocrit 36.5 % (37-47); Hemoglobin 11.8 g/dL (12.0-15.0); Mean Corp Hgb Conc 32.3 g/dL (32-36); Mean Corpuscular Hgb 29.8 pg (27.0-32.0); Mean Corpuscular Volume 92.2 fL (81-99); Mean Platelet Vol. 10.5 fl (6.2-12.0); Monocyte# 0.66 X10^3/uL; Monocyte% 14.2 % (0-10); NRBC Flagged by Analyzer 0 % (0-5); Neutrophil # 2.51 X10^3/uL (2.7-7.7); Neutrophil % 53.9 % (47-70); Platelet Count 212 K/mm3 (150-450); RBC Distribution Width CV 14.8 % (11.6-14.6); RBC Distribution Width SD 49.7 fl (35.1-43.9); Red Blood Count 3.96 M/mm3 (4.2-5.4); White Blood Count 4.7 K/mm3 (4.4-11.0)
[2020-11-11 18:21] LABS: ALB/GLOB Ratio 0.9 RATIO (0.9-2.4); AST(SGOT) 28 U/L (15-37); Alanine Aminotransfer ALT/SGPT 32 U/L (13-56); Albumin, Serum 3.1 g/dL (3.2-5.0); Alkaline Phosphatase 110 U/L (45-117); Anion Gap 7 (5-15); BUN 23 mg/dL (7-18); BUN/Creat Ratio 19.5 RATIO (10-20); Calcium,Total 9.8 mg/dL (8.5-10.1); Chloride 106 mmol/L (98-107); Creatinine, Serum 1.18 mg/dL (0.55-1.02); EST Glomerular Filtration Rate 48 mL/min (>60); Est Glom Filt Rate - Afr Amer 58 mL/min (>60); Globulin 3.6 g/dL (2.2-4.2); Glucose 155 mg/dL (74-106); Potassium 3.7 mmol/L (3.5-5.1); Protein, Total 6.7 g/dL (6.4-8.2); Sodium Level 141 mmol/L (136-145); Uric Acid 5.6 mg/dL (2.6-6.0)
== END ==
PROVIDERS: PCP Internal Medicine; Referring Provider Internal Medicine Rheumatology; Visit Provider Internal Medicine Rheumatology
DX: M06.4 Inflammatory polyarthropathy (principal); M79.7 Fibromyalgia; M15.9 Polyosteoarthritis, unspecified; M47.897 Other spondylosis, lumbosacral region; N18.9 Chronic kidney disease, unspecified; Z79.899 Other long term (current) drug therapy; Z85.3 Personal history of malignant neoplasm of breast
CPT/HCPCS: 36415; 80053; 84550; 85025

== ENCOUNTER 2021-03-08 12:03 | Outpatient (CLI) | payer MEDICARE, SELFPAY ==
[2021-03-08 15:29] LABS: Absolute Lymphocyte Count 1.25 X10^3/uL (0.83-4.51); Absolute Neutrophil Count 4.1 X10^3/uL (2.0-7.7); Basophil# 0.05 X10^3/uL; Basophil% 0.8 % (0-1); Eosinophil# 0.12 X10^3/uL; Eosinophils% 1.9 % (0-5); Hematocrit 37.6 % (37-47); Hemoglobin 12.1 g/dL (12.0-15.0); Lymphocyte # 1.25 X10^3/ul (0.83-4.51); Lymphocyte % 19.6 % (19-41); Mean Corp Hgb Conc 32.2 g/dL (32-36); Mean Corpuscular Hgb 31.7 pg (27.0-32.0); Mean Corpuscular Volume 98.4 fL (81-99); Mean Platelet Vol. 11.6 fl (6.2-12.0); Monocyte# 0.78 X10^3/uL; Monocyte% 12.2 % (0-10); NRBC Flagged by Analyzer 0 % (0-5); Neutrophil % 64.2 % (47-70); Platelet Count 186 K/mm3 (150-450); RBC Distribution Width CV 13.2 % (11.6-14.6); Red Blood Count 3.82 M/mm3 (4.2-5.4); White Blood Count 6.4 K/mm3 (4.4-11.0)
[2021-03-08 15:40] LABS: AST(SGOT) 58 U/L (15-37); Alanine Aminotransfer ALT/SGPT 54 U/L (13-56); Albumin, Serum 3.3 g/dL (3.2-5.0); Alkaline Phosphatase 145 U/L (45-117); Anion Gap 4 (5-15); BUN 22 mg/dL (7-18); BUN/Creat Ratio 23.7 RATIO (10-20); Calcium,Total 10.1 mg/dL (8.5-10.1); Chloride 107 mmol/L (98-107); Creatinine, Serum 0.93 mg/dL (0.55-1.02); EST Glomerular Filtration Rate 63 mL/min (>60); Est Glom Filt Rate - Afr Amer 76 mL/min (>60); Globulin 3.4 g/dL (2.2-4.2); Glucose 106 mg/dL (74-106); Potassium 3.8 mmol/L (3.5-5.1); Protein, Total 6.7 g/dL (6.4-8.2); Sodium Level 140 mmol/L (136-145)
== END 2021-03-08 23:59 | disposition short-term general hospital (02) ==
LOC: MTLAB 12:05
PROVIDERS: PCP Internal Medicine; Referring Provider Internal Medicine Rheumatology; Visit Provider Internal Medicine Rheumatology
DX: M06.4 Inflammatory polyarthropathy (principal); C18.9 Malignant neoplasm of colon, unspecified; M79.7 Fibromyalgia; M15.9 Polyosteoarthritis, unspecified; M47.897 Other spondylosis, lumbosacral region; N18.9 Chronic kidney disease, unspecified; Z79.899 Other long term (current) drug therapy; Z85.3 Personal history of malignant neoplasm of breast
CPT/HCPCS: 36415; 80053; 85025

== ENCOUNTER → 2021-06-04 | Outpatient (CLI) | payer MEDICARE, SELFPAY ==
[2021-06-04 11:44] LABS: Absolute Lymphocyte Count 1.35 X10^3/uL (0.83-4.51); Basophil# 0.03 X10^3/uL; Basophil% 0.6 % (0-1); Eosinophils% 1.9 % (0-5); Hematocrit 40.5 % (37-47); Hemoglobin 12.9 g/dL (12.0-15.0); Lymphocyte # 1.35 X10^3/ul (0.83-4.51); Lymphocyte % 25.5 % (19-41); Mean Corp Hgb Conc 31.9 g/dL (32-36); Mean Corpuscular Hgb 29.3 pg (27.0-32.0); Mean Corpuscular Volume 91.8 fL (81-99); Mean Platelet Vol. 10.5 fl (6.2-12.0); Monocyte# 0.76 X10^3/uL; Monocyte% 14.3 % (0-10); NRBC Flagged by Analyzer 0 % (0-5); Neutrophil # 3.03 X10^3/uL (2.7-7.7); Neutrophil % 57.1 % (47-70); Platelet Count 168 K/mm3 (150-450); RBC Distribution Width CV 13.2 % (11.6-14.6); Red Blood Count 4.41 M/mm3 (4.2-5.4); White Blood Count 5.3 K/mm3 (4.4-11.0)
[2021-06-04 12:08] LABS: ALB/GLOB Ratio 1.1 RATIO (0.9-2.4); AST(SGOT) 25 U/L (15-37); Alanine Aminotransfer ALT/SGPT 34 U/L (13-56); Albumin, Serum 3.4 g/dL (3.2-5.0); Alkaline Phosphatase 92 U/L (45-117); Anion Gap 3 (5-15); BUN 24 mg/dL (7-18); BUN/Creat Ratio 20.5 RATIO (10-20); Calcium,Total 9.4 mg/dL (8.5-10.1); Chloride 107 mmol/L (98-107); Creatinine, Serum 1.17 mg/dL (0.55-1.02); EST Glomerular Filtration Rate 48 mL/min (>60); Est Glom Filt Rate - Afr Amer 58 mL/min (>60); Globulin 3.2 g/dL (2.2-4.2); Glucose 125 mg/dL (74-106); Protein, Total 6.6 g/dL (6.4-8.2); Sodium Level 140 mmol/L (136-145)
== END | disposition home or self-care (01) ==
LOC: LAB 11:30
PROVIDERS: PCP Internal Medicine; Visit Provider Internal Medicine Rheumatology
DX: M06.4 Inflammatory polyarthropathy (principal); C18.9 Malignant neoplasm of colon, unspecified; M79.7 Fibromyalgia; M15.9 Polyosteoarthritis, unspecified; M47.897 Other spondylosis, lumbosacral region; N18.9 Chronic kidney disease, unspecified; Z79.899 Other long term (current) drug therapy; Z85.3 Personal history of malignant neoplasm of breast
CPT/HCPCS: 36415; 80053; 85025

== ENCOUNTER 2021-06-15 13:39 | Outpatient (CLI) | payer MEDICARE, SELFPAY ==
[2021-06-15 15:37] LABS: Amphetamine Urine VISTA NEGATIVE (<1000 ng/mL); Barbiturate Urine VISTA NEGATIVE (< 200 ng/mL); Benzodiazepine Urine VISTA NEGATIVE (< 200 ng/mL); Cocaine Urine VISTA NEGATIVE (< 300 ng/mL); Ecstacy Urine VISTA NEGATIVE (< 500 ng/mL); Methadone Urine VISTA NEGATIVE (< 300 ng/mL); PCP Urine VISTA NEGATIVE (< 25 ng/mL); THC Urine VISTA NEGATIVE (< 50 ng/mL); Vista UDS pH Range 4
== END 2021-06-15 23:59 | disposition home or self-care (01) ==
LOC: LAB 13:40
PROVIDERS: PCP Internal Medicine; Referring Provider Anesthesiology Pain Medicine; Visit Provider Anesthesiology Pain Medicine
DX: F11.20 Opioid dependence, uncomplicated (principal)
CPT/HCPCS: 80307

== ENCOUNTER → 2021-09-02 | Outpatient (CLI) | payer MEDICARE, SELFPAY ==
[2021-09-02 18:15] LABS: Absolute Lymphocyte Count 1.17 X10^3/uL (0.83-4.51); Absolute Neutrophil Count 3.8 X10^3/uL (2.0-7.7); Basophil# 0.03 X10^3/uL; Basophil% 0.5 % (0-1); Eosinophil# 0.06 X10^3/uL; Eosinophils% 1.1 % (0-5); Hematocrit 38.9 % (37-47); Hemoglobin 13.1 g/dL (12.0-15.0); Lymphocyte # 1.17 X10^3/ul (0.83-4.51); Lymphocyte % 20.6 % (19-41); Mean Corp Hgb Conc 33.7 g/dL (32-36); Mean Corpuscular Hgb 30.9 pg (27.0-32.0); Mean Corpuscular Volume 91.7 fL (81-99); Mean Platelet Vol. 10.9 fl (6.2-12.0); Monocyte# 0.62 X10^3/uL; Monocyte% 10.9 % (0-10); NRBC Flagged by Analyzer 0 % (0-5); Neutrophil # 3.75 X10^3/uL (2.7-7.7); Platelet Count 160 K/mm3 (150-450); RBC Distribution Width CV 13.2 % (11.6-14.6); RBC Distribution Width SD 44.2 fl (35.1-43.9); Red Blood Count 4.24 M/mm3 (4.2-5.4); White Blood Count 5.7 K/mm3 (4.4-11.0)
[2021-09-02 18:47] LABS: AST(SGOT) 21 U/L (15-37); Alanine Aminotransfer ALT/SGPT 31 U/L (13-56); Albumin, Serum 3.3 g/dL (3.2-5.0); Alkaline Phosphatase 99 U/L (45-117); Anion Gap 5 (5-15); BUN 25 mg/dL (7-18); BUN/Creat Ratio 22.1 RATIO (10-20); Chloride 109 mmol/L (98-107); Creatinine, Serum 1.13 mg/dL (0.55-1.02); EST Glomerular Filtration Rate 50 mL/min (>60); Est Glom Filt Rate - Afr Amer 61 mL/min (>60); Globulin 3.2 g/dL (2.2-4.2); Glucose 140 mg/dL (74-106); Protein, Total 6.5 g/dL (6.4-8.2); Sodium Level 141 mmol/L (136-145)
== END | disposition home or self-care (01) ==
LOC: MTLAB 16:48
PROVIDERS: PCP Internal Medicine; Referring Provider Internal Medicine Rheumatology; Visit Provider Internal Medicine Rheumatology
DX: M06.4 Inflammatory polyarthropathy (principal); C18.9 Malignant neoplasm of colon, unspecified; M79.7 Fibromyalgia; M15.9 Polyosteoarthritis, unspecified; M47.897 Other spondylosis, lumbosacral region; N18.9 Chronic kidney disease, unspecified; Z85.3 Personal history of malignant neoplasm of breast; Z79.899 Other long term (current) drug therapy
CPT/HCPCS: 36415; 80053; 85025

== ENCOUNTER → 2021-11-11 | Outpatient (CLI) | payer MEDICARE, SELFPAY | END | disposition home or self-care (01) | LOC: SL 22:14 | PROVIDERS: PCP Internal Medicine; Visit Provider Psychiatry & Neurology Sleep Medicine | DX: G47.33 Obstructive sleep apnea (adult) (pediatric) (principal) | CPT/HCPCS: 95810 ==

== ENCOUNTER 2022-02-22 16:46 | Emergency (ER) | payer MEDICARE, SELFPAY ==
[2022-02-22 16:46] VITALS: BP 163/93; PULSE 67; RESP 16; TEMP 36.6; O2SAT 96; BMI 42.0
--- NOTE | 2022-02-22 17:58 | CT_ITS ---
INDICATION: headache EXAMINATION: CT BRAIN - CT Head or Brain W/O Contrast Injection TECHNIQUE: Multiple axial images were obtained of the head without intravenous contrast. A radiation dose optimization technique was used for this scan. IV Contrast dosage and agent: None. COMPARISON: None. FINDINGS: BRAIN PARENCHYMA: No intra- or extra-axial hemorrhage. No evidence of acute infarct. No intracranial mass or mass effect. There is preservation of the mcclelland/white matter interface. Posterior fossa structures are unremarkable. CSF SPACES: Appropriate for age. No hydrocephalus. Basal cisterns are patent. CALVARIUM, SKULL BASE, PARANASAL SINUSES AND MASTOID AIR CELLS: Clear. No discrete lytic or blastic abnormalities. ORBITS: Both globes, extraocular muscles, optic nerves and retrobulbar fat appear unremarkable. ASPECTS Score for Acute Strokes: 10 CT/Brain/Head without Contrast IMPRESSION: Negative Brain CT without contrast. Electronically Signed: Jerry Ward MD at 18:47 EST ,
--- NOTE | 2022-02-22 18:00 | EDS_ITS ---
HPI History of Present Illness Chief Complaint: Headache Informant: patient Onset/Context/Timing Onset: Month(s) Timing: Intermittent Current Severity: Moderate Maximum Severity: Moderate Narrative Narrative: Patient presents secondary to headache with nausea and vomiting. She states has had frequent headaches with occasional nausea and vomiting since having COVID in December. Today the headache was worse and she did not want to do so she came to the emergency room. She states the pain is always located just above and behind the left eye. She did take Tylenol 6+ hours ago with only minimal improvement. She was seen by her PCP yesterday secondary to headache and painful tongue. She states she had multiple blood tests drawn that were all unremarkable. [facility] Medical History Adverse effect of COVID-19 vaccine Breast cancer Chronic diastolic (congestive) heart failure Chronic low back pain CKD (chronic kidney disease), stage III Colon cancer COPD (chronic obstructive pulmonary disease) Essential hypertension Fibromyalgia Gastroesophageal reflux disease Hyperlipidemia Morbid obesity Obstructive sleep apnea syndrome Rheumatoid arthritis Type 2 diabetes mellitus Home Medications amlodipine 10 mg tablet 10 mg PO QHS 05/10/14 [History Last Taken 05/09/14 22:00] metformin 500 mg tablet,extended release 24 hr 1,000 mg PO DAILY 05/10/14 [H istory Last Taken 05/09/14 22:00] metoprolol succinate 50 mg tablet,extended release 24 hr 50 mg PO QHS 05/10/14 [History Last Taken 05/09/14 22:00] cyanocobalamin (vitamin B-12) 2,000 mcg tablet 500 mcg PO DAILY 09/02/15 [History Last Taken Unknown] acetaminophen 500 mg tablet 1,000 mg PO TID PRN Pain 1-10 Or Fever 10/29/15 [History Last Taken Unknown] folic acid 800 mcg tablet 800 mg PO DAILY 05/23/17 [History Last Taken Unknown] omega-3 fatty acids-fish oil 340 mg-1,000 mg capsule 1 ea PO QHS 05/23/17 [History Last Taken 05/20/17] morphine 30 mg capsule,extended release 24 hr multiphase 15 mg PO TID 10/09/18 [History Last Taken 01/16/20 09:30 15 MG] hydroxychloroquine 200 mg tablet 200 mg PO DAILY 10/16/19 [History Last Taken Unknown] magnesium oxide 400 mg PO DAILY #90 tabs 10/16/19 [Rx Last Taken Unknown] valsartan 160 mg tablet 160 mg PO DAILY 10/16/19 [History Last Taken 01/16/20 09:30 160 MG] furosemide 20 mg tablet 10 mg PO DAILY #45 tabs 12/03/19 [Rx Last Taken Unknown] omeprazole 20 mg capsule,delayed release 40 mg PO DAILY 01/14/20 [History Last Taken 01/16/20 09:30 20 MG] promethazine 25 mg tablet 25 mg PO Q6H PRN Nausea 07/01/20 [History Last Taken Unknown] ergocalciferol (vitamin D2) 1,250 mcg (50,000 unit) capsule (Vitamin D2) 1,250 mcg PO QWEEK 10/15/20 [History Last Taken Unknown] loperamide 2 mg capsule (Anti-Diarrheal (loperamide)) 2 mg PO Q4H PRN Diarrhea 0 10/15/20 [History Last Taken Unknown] insulin lispro 100 unit/mL subcutaneous solution 1 sliding scale dose subcut USEASDIRECTD 10/20/21 [History Last Taken Unknown] vibegron 75 mg tablet (Gemtesa) 75 mg PO DAILY 10/20/21 [History Last Taken Unknown] fenofibrate 54 mg tablet 54 mg PO DAILY #90 tabs 02/09/22 [Rx Last Taken Unknown] ondansetron 4 mg disintegrating tablet 4 mg PO BID PRN nausea and vomiting #10 tabs 02/22/22 [Rx Last Taken Unknown] Allergy/AdvReac Type Severity Reaction Status Date / Time ciprofloxacin [From Cipro] Allergy Rash Verified 02/22/22 16:50 ciprofloxacin HCl Allergy Rash Verified 02/22/22 16:50 [From Cipro] dicyclomine Allergy Rash Verified 02/22/22 16:50 erythromycin base Allergy Rash Verified 02/22/22 16:50 [From E-Mycin] ketoprofen [From Oruvail] Allergy Itching Verified 02/22/22 16:50 loratadine [From Claritin] Allergy Rash Verified 02/22/22 16:50 nabumetone [From Relafen] Allergy Rash Verified 02/22/22 16:50 naproxen Allergy Swelling Verified 02/22/22 16:50 Jcipqwv-FBL-PlU Reductase Allergy Itching Verified 02/22/22 16:50 Inhibitor [Gkkmwuy-Cea-Dyb Reductase Inhibitor] Family History Father Heart disease Myocardial infarction late 50's Mother Cancer Brother Cancer Sister Lupus Surgical History Ablation to lumbar spine (07/2017) History of History of cholecystectomy History of lumpectomy of right breast (2010) History of tonsillectomy and adenoidectomy History of tubal ligation Social History Smoking Status: Never smoker ROS ROS ED Constitutional Constitutional ED: Denies chills or fever(s) Eyes Eyes: Denies change in vision or discharge from eye(s) ENT ENT ED: Reports rhinorrhea and other Details: Sinus pressure ; Denies discharge from eye(s) or sore throat Cardiovascular Cardiovascular: Denies chest pain or palpitations Respiratory/Chest Respiratory/Chest: Denies cough or dyspnea Gastrointestinal Gastrointestinal: Reports nausea and vomiting; Denies abdominal pain or diarrhea Genitourinary Genitourinary ED: Denies difficulty urinating or dysuria Musculoskeletal Musculoskeletal: Denies back pain or extremity pain Integumentary Denies Abrasions or rash Neurologic Neurologic: Reports headache(s); Denies weakness Psychiatric Psychiatric: Denies anxiety or depression Allergic/Immunologic Allergic/Immunologic ED: Denies lip swelling or urticaria EXAM Physical Exam Const Vital Signs: 02/22/22 16:46 Temperature 97.8 F Temperature Source Temporal Pulse Rate 67 Respiratory Rate 16 Blood Pressure 163/93 H Blood Pressure Mean 116 Pulse Ox 96 Oxygen Delivery Method Room Air Positive well nourished and well developed General Appearance ED: well developed HEENT Reports normocephalic and head/scalp atraumatic HEENT Narrative: Tenderness of the left frontal and maxillary sinus. Eyes PERRL and EOMs intact bilaterally Neck supple Chest Wall inspection of chest normal and palpation of chest normal Resp normal respiratory effort and clear to auscultation bilaterally Cardio regular rate and regular rhythm GI normal to inspection, nondistended, normoactive bowel sounds Palpation: soft Back/Spine no CVA tenderness Extremity normal to inspection Neuro oriented x3 and no sensory deficits noted Sensorium / Orientation: alert Motor Exam: strength 5/5 throughout Psych mental status grossly normal Skin no rashes or lesions noted MDM MDM MDM Narrative Medical decision making narrative: Patient was given oral Tylenol, Benadryl, Zofran. CT of the head is obtained. Radiography Diagnostic Testing: Clinical Impression(s) from Imaging Studies Brain CT 02/22/22 17:58 IMPRESSION: Negative Brain CT without contrast. Electronically Signed: Jerry Ward MD at 18:47 EST , Treatment and Re-Evaluation Narrative: CT head reveals no acute findings. Sinuses are clear on imaging. Repeat evaluation patient does report improvement in her symptoms. I did discuss with her using Benadryl at home to help when she takes Tylenol as this does seem to help cephalgia. She has Phenergan at home but I will also write her for some Zofran to have during the day to help with nausea. Neuro exam remains normal. Discharge Plan Triage Chief Complaint: Headache ED Provider: Vi Quevedo Dx/Rx/DC Orders Clinical Impression: Cephalgia Instructions: ED Headache Unspecified Prescriptions: New ondansetron 4 mg tablet,disintegrating 4 mg PO BID PRN (Reason: nausea and vomiting) Qty: 10 0RF No Action morphine 30 mg capsule, ER multiphase 24 hr 15 mg PO TID valsartan 160 mg tablet 160 mg PO DAILY Label Comments: TAKE 1 TABLET BY MOUTH EVERY DAY hydroxychloroquine 200 mg tablet 200 mg PO DAILY magnesium oxide 400 mg magnesium tablet 400 mg PO DAILY Qty: 90 4RF ergocalciferol (vitamin D2) [Vitamin D2] 1,250 mcg (50,000 unit) capsule 1,250 mcg PO QWEEK loperamide [Anti-Diarrheal (loperamide)] 2 mg capsule 2 mg PO Q4H PRN (Reason: Diarrhea) Rx Instructions: administer after each loose stool until symptoms controlled; do not exceed 8 mg per 24 hrs insulin lispro 100 unit/mL solution 1 sliding scale dose subcut USEASDIRECTD Gemtesa 75 mg tablet 75 mg PO DAILY metoprolol succinate 50 MG tablet 50 mg PO QHS Label Comments: HEART/BLOOD PRESSURE amlodipine 10 MG tablet 10 mg PO QHS Label Comments: BLOOD PRESSURE metformin 500 MG tablet 1,000 mg PO DAILY Label Comments: DIABETES cyanocobalamin (vitamin B-12) 2,000 MCG tablet 500 mcg PO DAILY acetaminophen 500 MG tablet 1,000 mg PO TID PRN (Reason: Pain 1-10 Or Fever) folic acid 0.8 MG tablet 800 mg PO DAILY omega-3 fatty acids-fish oil 1 EACH capsule 1 ea PO QHS omeprazole 20 MG capsule 40 mg PO DAILY promethazine [Phenergan] 25 mg Tablet 25 mg PO Q6H PRN (Reason: Nausea) furosemide 20 mg tablet 10 mg PO DAILY Qty: 45 4RF fenofibrate 54 mg tablet 54 mg PO DAILY Qty: 90 4RF Primary Care Provider: Yasemin Carney Referrals: Yasemin Carney MD [Primary Care Provider] - 1-2 Weeks Disposition Disposition: Home, Self Care
[2022-02-22] MEDS: Acetaminophen 500 MG Tablet 1000 MG PO (18:05)
[2022-02-22] MEDS: Ondansetron ODT 4 MG Tablet PO (18:05)
[2022-02-22] MEDS: DiphenhydrAMINE 25 MG Capsule PO (18:05)
[2022-02-22 19:04] VITALS: RESP 18; O2SAT 99
== END 2022-02-22 19:04 | disposition home or self-care (01) ==
PROVIDERS: Emergency Provider Emergency Medicine; PCP Internal Medicine; Visit Provider Emergency Medicine
DX: R51.9 Headache, unspecified (principal); J44.9 Chronic obstructive pulmonary disease, unspecified; I13.0 Hypertensive heart and chronic kidney disease with heart failure and stage 1 through stage 4 chronic kidney disease, or unspecified chronic kidney disease; I50.32 Chronic diastolic (congestive) heart failure; E11.22 Type 2 diabetes mellitus with diabetic chronic kidney disease; N18.30 Chronic kidney disease, stage 3 unspecified; E78.5 Hyperlipidemia, unspecified; R11.2 Nausea with vomiting, unspecified
CPT/HCPCS: 70450; 99283

== ENCOUNTER → 2022-02-28 | Outpatient (CLI) | payer MEDICARE, SELFPAY ==
[2022-02-28 17:57] LABS: Absolute Lymphocyte Count 1.32 X10^3/uL (0.83-4.51); Basophil# 0.04 X10^3/uL; Basophil% 0.8 % (0-1); Eosinophil# 0.08 X10^3/uL; Eosinophils% 1.6 % (0-5); Hematocrit 41.8 % (37-47); Hemoglobin 13.6 g/dL (12.0-15.0); Lymphocyte # 1.32 X10^3/ul (0.83-4.51); Lymphocyte % 25.9 % (19-41); Mean Corp Hgb Conc 32.5 g/dL (32-36); Mean Corpuscular Hgb 29.8 pg (27.0-32.0); Mean Corpuscular Volume 91.5 fL (81-99); Mean Platelet Vol. 10.8 fl (6.2-12.0); Monocyte# 0.63 X10^3/uL; Monocyte% 12.4 % (0-10); NRBC Flagged by Analyzer 0 % (0-5); Neutrophil # 2.98 X10^3/uL (2.7-7.7); Neutrophil % 58.3 % (47-70); Platelet Count 177 K/mm3 (150-450); RBC Distribution Width CV 12.9 % (11.6-14.6); RBC Distribution Width SD 42.5 fl (35.1-43.9); Red Blood Count 4.57 M/mm3 (4.2-5.4); White Blood Count 5.1 K/mm3 (4.4-11.0)
[2022-02-28 19:00] LABS: ALB/GLOB Ratio 1.1 RATIO (0.9-2.4); AST(SGOT) 25 U/L (15-37); Alanine Aminotransfer ALT/SGPT 34 U/L (13-56); Albumin, Serum 3.5 g/dL (3.2-5.0); Alkaline Phosphatase 95 U/L (45-117); Anion Gap 5 (5-15); BUN 24 mg/dL (7-18); BUN/Creat Ratio 23.1 RATIO (10-20); Chloride 105 mmol/L (98-107); Creatinine, Serum 1.04 mg/dL (0.55-1.02); EST Glomerular Filtration Rate 55 mL/min (>60); Est Glom Filt Rate - Afr Amer 67 mL/min (>60); Globulin 3.2 g/dL (2.2-4.2); Glucose 108 mg/dL (74-106); Protein, Total 6.7 g/dL (6.4-8.2); Sodium Level 140 mmol/L (136-145)
== END | disposition home or self-care (01) ==
LOC: MTLAB 15:39
PROVIDERS: PCP Internal Medicine; Referring Provider Internal Medicine Rheumatology; Visit Provider Internal Medicine Rheumatology
DX: M06.4 Inflammatory polyarthropathy (principal); C18.9 Malignant neoplasm of colon, unspecified; M79.7 Fibromyalgia; M15.9 Polyosteoarthritis, unspecified; M47.897 Other spondylosis, lumbosacral region; N18.9 Chronic kidney disease, unspecified; Z85.3 Personal history of malignant neoplasm of breast; Z79.899 Other long term (current) drug therapy
CPT/HCPCS: 36415; 80053; 85025

== ENCOUNTER → 2022-04-14 | Outpatient (CLI) | payer MEDICARE, SELFPAY ==
--- NOTE | 2022-04-14 09:30 | TELEMED_ITS ---
[facility] has confirmed receipt of a request for visit. This document confirms receipt of the order initiating the consult. To find the results of the consultation, please view the patient's reports for the scanned Telemed Consult.
== END | disposition home or self-care (01) ==
LOC: PSN 08:17
PROVIDERS: PCP Internal Medicine
DX: R44.1 Visual hallucinations (principal)
CPT/HCPCS: 95819

== ENCOUNTER 2022-04-15 06:16 | Emergency (ER) | payer MEDICARE, SELFPAY ==
[2022-04-15 06:17] VITALS: BP 111/73; PULSE 131; RESP 20; TEMP 36.3; O2SAT 94; BMI 40.8
--- NOTE | 2022-04-15 06:30 | EDS_ITS ---
HPI HPI - GI History of Present Illness Chief Complaint: Nausea/Vomiting/Diarrhea Informant: patient Nausea/Vomiting/Emesis GI Symptom: Positive for Nausea and Vomiting Onset: Yesterday Quality: Positive for Nonbilious; Negative for Blood streaks, Coffee ground or Hematemesis Severity: Severe Diarrhea/Melena/Hematochezia GI Symptom: Positive for Diarrhea; Negative for Melena or Hematochezia Onset: Yesterday Stool Quality: Positive for Watery Severity: Severe Associated Symptoms Associated Symptoms: Negative for Dysuria, Frequency or Hematuria Narrative Narrative: Patient with about 12 hours of vomiting and diarrhea, she is having trouble keeping any fluids down and feeling malaised and ill. She has had some occasional lower abdominal cramping, it has been mild and brief right before she has diarrhea and then it resolves, no other abdominal pains. 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 She is scheduled to see Dr. Christina with neurology this coming week after having had those tests for consultation. She denies any history of C. difficile that she knows of in the past. No recent antibiotics. No travel out of the area or camping or suspicious food/water ingestion that could have caused this. [facility] Medical History Adverse effect of COVID-19 vaccine Breast cancer Chronic diastolic (congestive) heart failure Chronic low back pain CKD (chronic kidney disease), stage III Colon cancer COPD (chronic obstructive pulmonary disease) Essential hypertension Fibromyalgia Gastroesophageal reflux disease Hyperlipidemia Morbid obesity Obstructive sleep apnea syndrome Rheumatoid arthritis Type 2 diabetes mellitus Home Medications amlodipine 10 mg tablet 10 mg PO QHS 05/10/14 [History Last Taken 05/09/14 22:00] metformin 500 mg tablet,extended release 24 hr 1,000 mg PO DAILY 05/10/14 [History Last Taken 05/09/14 22:00] metoprolol succinate 50 mg tablet,extended release 24 hr 50 mg PO QHS 05/10/14 [History Last Taken 05/09/14 22:00] cyanocobalamin (vitamin B-12) 2,000 mcg tablet 500 mcg PO DAILY 09/02/15 [History Last Taken Unknown] acetaminophen 500 mg tablet 1,000 mg PO TID PRN Pain 1-10 Or Fever 10/29/15 [History Last Taken Unknown] folic acid 800 mcg tablet 800 mg PO DAILY 05/23/17 [History Last Taken Unknown] omega-3 fatty acids-fish oil 340 mg-1,000 mg capsule 1 ea PO QHS 05/23/17 [History Last Taken 05/20/17] morphine 30 mg capsule,extended release 24 hr multiphase 15 mg PO TID 10/09/18 [History Last Taken 01/16/20 09:30 15 MG] hydroxychloroquine 200 mg tablet 200 mg PO DAILY 10/16/19 [History Last Taken Unknown] magnesium oxide 400 mg PO DAILY #90 tabs 10/16/19 [Rx Last Taken Unknown] valsartan 160 mg tablet 160 mg PO DAILY 10/16/19 [History Last Taken 01/16/20 09:30 160 MG] furosemide 20 mg tablet 10 mg PO DAILY #45 tabs 12/03/19 [Rx Last Taken Unknown] omeprazole 20 mg capsule,delayed release 40 mg PO DAILY 01/14/20 [History Last Taken 01/16/20 09:30 20 MG] promethazine 25 mg tablet 25 mg PO Q6H PRN Nausea 07/01/20 [History Last Taken Unknown] ergocalciferol (vitamin D2) 1,250 mcg (50,000 unit) capsule (Vitamin D2) 1,250 mcg PO QWEEK 10/15/20 [History Last Taken Unknown] loperamide 2 mg capsule (Anti-Diarrheal (loperamide)) 2 mg PO Q4H PRN Diarrhea 10/15/20 [History Last Taken Unknown] insulin lispro 100 unit/mL subcutaneous solution 1 sliding scale dose subcut USEASDIRECTD 10/20/21 [History Last Taken Unknown] vibegron 75 mg tablet (Gemtesa) 75 mg PO DAILY 10/20/21 [History Last Taken Unknown] fenofibrate 54 mg tablet 54 mg PO DAILY #90 tabs 02/09/22 [Rx Last Taken Unknown] ondansetron 4 mg disintegrating tablet 4 mg PO BID PRN nausea and vomiting #10 tabs 02/22/22 [Rx Last Taken Unknown] ondansetron 4 mg disintegrating tablet 8 mg PO Q8H PRN PRN Nausea #12 tabs 04/15/22 [Rx Last Taken Unknown] Allergy/AdvReac Type Severity Reaction Status Date / Time ciprofloxacin [From Cipro] Allergy Rash Verified 04/15/22 06:17 ciprofloxacin HCl Allergy Rash Verified 04/15/22 06:17 [From Cipro] dicyclomine Allergy Rash Verified 04/15/22 06:17 erythromycin base Allergy Rash Verified 04/15/22 06:17 [From E-Mycin] ketoprofen [From Oruvail] Allergy Itching Verified 04/15/22 06:17 loratadine [From Claritin] Allergy Rash Verified 04/15/22 06:17 nabumetone [From Relafen] Allergy Rash Verified 04/15/22 06:17 naproxen Allergy Swelling Verified 04/15/22 06:17 Abvblwv-RVH-MzL Reductase Allergy Itching Verified 04/15/22 06:17 Inhibitor [Xzcnewz-Htp-Sni Reductase Inhibitor] Family History Father Heart disease Myocardial infarction late 50's Mother Cancer Brother Cancer Sister Lupus Surgical History Ablation to lumbar spine (07/2017) History of History of cholecystectomy History of lumpectomy of right breast (2010) History of tonsillectomy and adenoidectomy History of tubal ligation Social History Smoking Status: Never smoker ROS ROS ED Constitutional Constitutional ED: Reports weakness; Denies chills or fever(s) Eyes Eyes: Reports change in vision right; Denies diplopia ENT ENT ED: Denies rhinorrhea or sore throat Cardiovascular Cardiovascular: Denies chest pain or palpitations Respiratory/Chest Respiratory/Chest: Denies cough or dyspnea Gastrointestinal Gastrointestinal: Reports abdominal pain, diarrhea, nausea and vomiting; Denies hematemesis, hematochezia or melena Genitourinary Genitourinary ED: Denies dysuria, hematuria or urinary frequency Musculoskeletal Musculoskeletal: Denies back pain or neck pain Integumentary Denies abscess or rash Neurologic Neurologic: Denies headache(s), paresthesias or weakness Psychiatric Psychiatric: Denies anxiety or suicidal thoughts EXAM Physical Exam Const Vital Signs: 04/15/22 06:17 04/15/22 06:17 Temperature 97.4 F L 97.4 F L Temperature Source Temporal Temporal Pulse Rate 131 H 131 H Respiratory Rate 20 H 20 H Blood Pressure 111/73 111/73 Blood Pressure Mean 85 85 Pulse Ox 94 94 Oxygen Delivery Method Room Air Room Air Positive well nourished, well developed and obese General Appearance ED: well developed and NAD Nutritional Appearance: obese HEENT Reports moist mucous membranes normocephalic and atraumatic Eyes PERRL and EOMs intact bilaterally Neck full ROM and supple Resp normal respiratory effort and clear to auscultation bilaterally Cardio regular rate, regular rhythm and no murmurs Rate: tachycardic GI non-tender and non-distended Auscultation: normoactive bowel sounds Palpation: soft Back/Spine no CVA tenderness General Back: other FROM Extremity normal to inspection General Extremety ED: Negative for pulses abnormal or tenderness General Extremity: Negative for pulses abnormal Neuro oriented x3, CN's II-XII intact bilaterally, no sensory deficits noted and gait normal Sensorium / Orientation: awake and alert Motor Exam: strength 5/5 throughout Psych mental status grossly normal and thought process normal Skin no rashes or lesions noted and no wounds MDM MDM MDM Narrative Medical decision making narrative: Suspecting infectious etiology here, patient was treated with IV fluids and Zofran and felt much better on reevaluation. She is a little prerenal, her h eart rate went from 130 down to 95 with the IV fluids almost finished. I offered admission she declines and feels like she would be better to go home. We did send diarrhea for stool studies, those are all pending at this time but they should come back within the next 1 or 2 hours including a fecal white blood cell smear, C. difficile PCR, and enteric bacterial panel. She would like to wait for those. She usually takes morphine 15 mg orally every morning for her chronic low back pain, she did not get to take it last night because of the vomiting and she is asking for that if she can, so I am ordering her a dose of morphine 2 mg IV while she waits. Lab Data Attestation: I reviewed the patient's lab results. Labs: Laboratory Results - last 24 hr 04/15/22 04/15/22 06:40 06:40 WBC 7.4 RBC 4.80 Hgb 14.5 Hct 44.0 MCV 91.7 MCH 30.2 MCHC 33.0 RDW Std Deviation 42.5 RDW Coeff of Julianna 12.6 Plt Count 145 L MPV 10.7 Immature Gran % (Auto) 0.500 Neut % (Auto) 85.3 H Lymph % (Auto) 5.0 L [place] % (Auto) 8.6 Eos % (Auto) 0.3 Baso % (Auto) 0.3 Absolute Neuts (auto) 6.3 Absolute Lymphs (auto) 0.37 L Nucleated RBC % 0 Differential Comment SCANNED Sodium 138 Potassium 3.5 Chloride 106 Carbon Dioxide 21.0 Anion Gap 11 BUN 25 H Creatinine 1.06 H Estim Creat Clear Calc 33.95 Est GFR (MDRD) Af Amer 65 Est GFR (MDRD) Non-Af 54 L BUN/Creatinine Ratio 23.6 H Glucose 175 H Calcium 9.4 Total Bilirubin 0.50 AST 57 H ALT 52 Alkaline Phosphatase 95 Total Protein 6.6 Albumin 3.3 Globulin 3.3 Albumin/Globulin Ratio 1.0 Discharge Plan Triage Chief Complaint: Nausea/Vomiting/Diarrhea ED Provider: Luis Angel Smart Dx/Rx/DC Orders Clinical Impression: Gastroenteritis, Mild dehydration Instructions: ED FOOD POIS or G-ENTERITIS [id number] Prescriptions: New ondansetron [ondansetron] 4 mg tablet,disintegrating 8 mg PO Q8H PRN PRN (Reason: Nausea) Qty: 12 0RF No Action morphine 30 mg capsule, ER multiphase 24 hr 15 mg PO TID valsartan 160 mg tablet 160 mg PO DAILY Label Comments: TAKE 1 TABLET BY MOUTH EVERY DAY hydroxychloroquine 200 mg tablet 200 mg PO DAILY magnesium oxide 400 mg magnesium tablet 400 mg PO DAILY Qty: 90 4RF ergocalciferol (vitamin D2) [Vitamin D2] 1,250 mcg (50,000 unit) capsule 1,250 mcg PO QWEEK loperamide [Anti-Diarrheal (loperamide)] 2 mg capsule 2 mg PO Q4H PRN (Reason: Diarrhea) Rx Instructions: administer after each loose stool until symptoms controlled; do not exceed 8 mg per 24 hrs insulin lispro 100 unit/mL solution 1 sliding scale dose subcut USEASDIRECTD Gemtesa 75 mg tablet 75 mg PO DAILY metoprolol succinate 50 MG tablet 50 mg PO QHS Label Comments: HEART/BLOOD PRESSURE amlodipine 10 MG tablet 10 mg PO QHS Label Comments: BLOOD PRESSURE metformin 500 MG tablet 1,000 mg PO DAILY Label Comments: DIABETES cyanocobalamin (vitamin B-12) 2,000 MCG tablet 500 mcg PO DAILY acetaminophen 500 MG tablet 1,000 mg PO TID PRN (Reason: Pain 1-10 Or Fever) folic acid 0.8 MG tablet 800 mg PO DAILY omega-3 fatty acids-fish oil 1 EACH capsule 1 ea PO QHS omeprazole 20 MG capsule 40 mg PO DAILY promethazine [Phenergan] 25 mg Tablet 25 mg PO Q6H PRN (Reason: Nausea) ondansetron 4 mg tablet,disintegrating 4 mg PO BID PRN (Reason: nausea and vomiting) Qty: 10 0RF furosemide 20 mg tablet 10 mg PO DAILY Qty: 45 4RF fenofibrate 54 mg tablet 54 mg PO DAILY Qty: 90 4RF Primary Care Provider: Yasemin Carney Referrals: Yasemin Carney MD [Primary Care Provider] - 3-5 Days if not improving (or may return to ER if worse or trouble keeping down fluids) Disposition Disposition: Home, Self Care
[2022-04-15] MEDS: Ondansetron 4 MG/2 ML Vial IV (06:42)
[2022-04-15] MEDS: 0.9% Normal Saline 1,000 ML 999 ML IV (06:42)
[2022-04-15 06:53] LABS: Absolute Lymphocyte Count 0.37 X10^3/uL (0.83-4.51); Absolute Neutrophil Count 6.3 X10^3/uL (2.0-7.7); Basophil# 0.02 X10^3/uL; Basophil% 0.3 % (0-1); Eosinophil# 0.02 X10^3/uL; Eosinophils% 0.3 % (0-5); Hemoglobin 14.5 g/dL (12.0-15.0); Lymphocyte # 0.37 X10^3/ul (0.83-4.51); Mean Corpuscular Hgb 30.2 pg (27.0-32.0); Mean Corpuscular Volume 91.7 fL (81-99); Mean Platelet Vol. 10.7 fl (6.2-12.0); Monocyte# 0.63 X10^3/uL; Monocyte% 8.6 % (0-10); NRBC Flagged by Analyzer 0 % (0-5); Neutrophil # 6.27 X10^3/uL (2.7-7.7); Neutrophil % 85.3 % (47-70); POSITIVE DIFFERENTIAL YES; Platelet Count 145 K/mm3 (150-450); RBC Distribution Width CV 12.6 % (11.6-14.6); RBC Distribution Width SD 42.5 fl (35.1-43.9); White Blood Count 7.4 K/mm3 (4.4-11.0)
[2022-04-15 07:07] LABS: Differential Comment SCANNED; Differential Indicated SCAN CRITERIA MET
[2022-04-15 07:10] LABS: AST(SGOT) 57 U/L (15-37); Alanine Aminotransfer ALT/SGPT 52 U/L (13-56); Albumin, Serum 3.3 g/dL (3.2-5.0); Alkaline Phosphatase 95 U/L (45-117); Anion Gap 11 (5-15); BUN 25 mg/dL (7-18); BUN/Creat Ratio 23.6 RATIO (10-20); Calcium,Total 9.4 mg/dL (8.5-10.1); Chloride 106 mmol/L (98-107); Creatinine, Serum 1.06 mg/dL (0.55-1.02); EST Glomerular Filtration Rate 54 mL/min (>60); Est Glom Filt Rate - Afr Amer 65 mL/min (>60); Estimated Creatinine Clearance 33.95 ml/min; Globulin 3.3 g/dL (2.2-4.2); Glucose 175 mg/dL (74-106); Potassium 3.5 mmol/L (3.5-5.1); Protein, Total 6.6 g/dL (6.4-8.2); Sodium Level 138 mmol/L (136-145)
[2022-04-15] MEDS: Morphine 2 MG/ML Syringe IV (07:38)
[2022-04-15 07:42] VITALS: BP 150/79; PULSE 94; RESP 18; O2SAT 98
[2022-04-15 09:00] VITALS: BP 149/83; PULSE 92; RESP 16; O2SAT 96
[2022-04-15] MEDS: Acetaminophen 325 MG Tablet 650 MG PO (10:19)
[2022-04-15] MEDS: DiphenhydrAMINE 25 MG Capsule PO (10:19)
[2022-04-15 10:21] VITALS: BP 147/75; PULSE 99; RESP 18; TEMP 36.8; O2SAT 98
[2022-04-15 11:08] VITALS: BP 147/74; PULSE 103; RESP 18; O2SAT 96
[2022-04-15] MEDS: Vancomycin HCl 250 MG Capsule 500 MG PO (11:24)
== END 2022-04-15 10:40 | disposition home or self-care (01) ==
PROVIDERS: Emergency Provider Emergency Medicine; PCP Internal Medicine; Visit Provider Emergency Medicine
DX: K52.9 Noninfective gastroenteritis and colitis, unspecified (principal); J44.9 Chronic obstructive pulmonary disease, unspecified; I13.0 Hypertensive heart and chronic kidney disease with heart failure and stage 1 through stage 4 chronic kidney disease, or unspecified chronic kidney disease; I50.32 Chronic diastolic (congestive) heart failure; E11.22 Type 2 diabetes mellitus with diabetic chronic kidney disease; E66.01 Morbid (severe) obesity due to excess calories; N18.30 Chronic kidney disease, stage 3 unspecified; E78.5 Hyperlipidemia, unspecified; E86.0 Dehydration; M54.9 Dorsalgia, unspecified; G89.29 Other chronic pain
CPT/HCPCS: 36591; 80053; 83630; 85025; 87493; 87506; 96361; 96374; 96375; 99283; J7030; A4216; J2405

== ENCOUNTER 2022-06-29 21:15 | Emergency (ER) | payer MEDICARE, SELFPAY ==
[2022-06-29 21:16] VITALS: BP 183/91; PULSE 87; RESP 16; TEMP 36.7; O2SAT 98; BMI 37.8
--- NOTE | 2022-06-29 22:03 | CT_ITS ---
EXAM: CT ABDOMEN AND PELVIS WITHOUT INTRAVENOUS CONTRAST CLINICAL INDICATION: abdominal pain TECHNIQUE: Helically acquired images were obtained of the abdomen and pelvis without intravenous contrast. This CT exam was performed using one or more of the following dose reduction techniques: automated exposure control, adjustment of the mA and/or kV according to patient size, and/or use of iterative reconstruction technique. COMPARISON: 08/03/2020 FINDINGS: LOWER THORAX: Unremarkable. Lung bases are clear. No cardiomegaly. No significant pericardial effusion. ABDOMEN: LIVER: Fatty infiltration. Homogeneous. GALLBLADDER AND BILE DUCTS: The gallbladder is not identified and may be contracted or surgically absent.. No intra- or extrahepatic biliary ductal dilation. PANCREAS: Atrophy of the pancreas. No focal cystic mass. SPLEEN: Unremarkable. Normal size without focal cystic or solid mass. ADRENALS: Unremarkable. No nodules. KIDNEYS AND URETERS: Unremarkable. Normal renal size and position. No hydronephrosis. 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 No resulting obstruction. PELVIS: APPENDIX: Probable appendectomy changes. BLADDER: Unremarkable. REPRODUCTIVE: Unremarkable as visualized. No mass. ABDOMEN and PELVIS: INTRAPERITONEAL SPACE: Stranding in the omentum in the epigastric region surrounding an area of fat density, adjacent to the colon and anterior to the left hepatic lobe. No ascites or other fluid collection. BONES/JOINTS: Degenerative changes of the spine. Diffuse degenerative changes of the spine. No suspicious lytic or blastic abnormality. SOFT TISSUES: Diastases of the abdominal rectus muscles with bowel loops extending into a low ventral abdominal wall hernia. No resulting bowel obstruction. VASCULATURE: Unremarkable. Abdominal aorta is non-dilated. LYMPH NODES: Unremarkable. No enlarged lymph nodes. CT/Abdomen/Pelvis without Cont IMPRESSION: 1. Stranding in the omentum in the epigastric region surrounding an area of fat density, adjacent to the colon and anterior to the left hepatic lobe. This may indicate a small omental infarct or epiploic appendagitis. 2. Diastases of the abdominal rectus muscles with bowel loops extending into a low ventral abdominal wall hernia. No resulting bowel obstruction. Electronically Signed: Gerardo Saul MD at 23:13 EDT ,
--- NOTE | 2022-06-29 22:04 | EX.ED.DYSGE1 ---
HPI History of Present Illness Chief Complaint: Abd Pain Narrative Narrative: Patient presents with with epigastric pain since yesterday in fact its the entire upper abdomen. She has no lower abdominal pain the pain does not radiate to her back she has some nausea. No diarrhea. No recent fevers or chills. No chest pain. [facility] Medical History Adverse effect of COVID-19 vaccine Breast cancer Chronic diastolic (congestive) heart failure Chronic low back pain CKD (chronic kidney disease), stage III Colon cancer COPD (chronic obstructive pulmonary disease) Essential hypertension Fibromyalgia Gastroesophageal reflux disease Hyperlipidemia Morbid obesity Obstructive sleep apnea syndrome Rheumatoid arthritis Type 2 diabetes mellitus Home Medications metformin 500 mg tablet,extended release 24 hr 1,000 mg PO DAILY 05/10/14 [History Last Taken 05/09/14 22:00] cyanocobalamin (vitamin B-12) 2,000 mcg tablet 500 mcg PO DAILY 09/02/15 [History Last Taken Unknown] acetaminophen 500 mg tablet 1,000 mg PO TID PRN Pain 1-10 Or Fever 10/29/15 [History Last Taken Unknown] folic acid 800 mcg tablet 800 mg PO DAILY 05/23/17 [History Last Taken Unknown] omega-3 fatty acids-fish oil 340 mg-1,000 mg capsule 1 ea PO QHS 05/23/17 [History Last Taken 05/20/17] morphine 30 mg capsule,extended release 24 hr multiphase 15 mg PO TID 10/09/18 [History Last Taken 01/16/20 09:30 15 MG] hydroxychloroquine 200 mg tablet 200 mg PO DAILY 10/16/19 [History Last Taken Unknown] magnesium oxide 400 mg PO DAILY #90 tabs 10/16/19 [Rx Last Taken Unknown] valsartan 160 mg tablet 160 mg PO DAILY 10/16/19 [History Last Taken 01/16/20 09:30 160 MG] furosemide 20 mg tablet 10 mg PO DAILY #45 tabs 12/03/19 [Rx Last Taken Unknown] omeprazole 20 mg capsule,delayed release 40 mg PO DAILY 01/14/20 [History Last Taken 01/16/20 09:30 20 MG] promethazine 25 mg tablet 25 mg PO Q6H PRN Nausea 07/01/20 [History Last Taken Unknown] ergocalciferol (vitamin D2) 1,250 mcg (50,000 unit) capsule (Vitamin D2) 1,250 mcg PO QWEEK 10/15/20 [History Last Taken Unknown] loperamide 2 mg capsule (Anti-Diarrheal (loperamide)) 2 mg PO Q4H PRN Diarrhea 10/15/20 [History Last Taken Unknown] insulin lispro 100 unit/mL subcutaneous solution 1 sliding scale dose subcut USEASDIRECTD 10/20/21 [History Last Taken Unknown] vibegron 75 mg tablet (Gemtesa) 75 mg PO DAILY 10/20/21 [History Last Taken Unknown] fenofibrate 54 mg tablet 54 mg PO DAILY #90 tabs 02/09/22 [Rx Last Taken Unknown] ondansetron 4 mg disintegrating tablet 4 mg PO BID PRN nausea and vomiting #10 tabs 02/22/22 [Rx Last Taken Unknown] ondansetron 4 mg disintegrating tablet 8 mg PO Q8H PRN PRN Nausea #12 tabs 04/15/22 [Rx Last Taken Unknown] vancomycin 125 mg capsule 125 mg PO Q6H 10 days #40 caps 04/15/22 [Rx Last Taken Unknown] amlodipine 10 mg tablet 10 mg PO QHS #90 tabs 05/11/22 [Rx Last Taken Unknown] metoprolol succinate 50 mg tablet,extended release 24 hr 50 mg PO QHS #90 tabs 05/11/22 [Rx Last Taken Unknown] Allergy/AdvReac Type Severity Reaction Status Date / Time ciprofloxacin [From Cipro] Allergy Rash Verified 06/29/22 21:18 ciprofloxacin HCl Allergy Rash Verified 06/29/22 21:18 [From Cipro] dicyclomine Allergy Rash Verified 06/29/22 21:18 erythromycin base Allergy Rash Verified 06/29/22 21:18 [From E-Mycin] ketoprofen [From Oruvail] Allergy Itching Verified 06/29/22 21:18 loratadine [From Claritin] Allergy Rash Verified 06/29/22 21:18 nabumetone [From Relafen] Allergy Rash Verified 06/29/22 21:18 naproxen Allergy Swelling Verified 06/29/22 21:18 Tbepoom-WVI-CkF Reductase Allergy Itching Verified 06/29/22 21:18 Inhibitor [Geraifj-Wvh-Lvn Reductase Inhibitor] Family History Father Heart disease Myocardial infarction late 50's Mother Cancer Brother Cancer Sister Lupus Surgical History Ablation to lumbar spine (07/2017) History of History of cholecystectomy History of lumpectomy of right breast (2010) History of tonsillectomy and adenoidectomy History of tubal ligation Social History Smoking Status: Never smoker ROS ROS ED ROS Narrative Past medical history: Reviewed Medications: Reviewed Social history: Noncontributory Review of systems: All systems negative except as indicated General: No fever Cardiovascular: No chest pain Respiratory: No shortness of breath or cough Gastrointestinal: As in HPI Genitourinary: No dysuria Musculoskeletal: Denies myalgias no difficulty with ambulation Skin: No rash Neurological: No memory loss, confusion or any focal weakness EXAM Physical Exam Narrative Exam Narrative: Physical exam General: Patient appears somewhat uncomfortable Head: Normocephalic, Atraumatic Eyes: Conjunctiva not pale ENT: Slightly dry mucous membranes Neck: Supple, Nontender, No lymphadenopathy Cardiovascular: Regular rate, Regular rhythm Respiratory: No distress, CTA bilaterally Abdomen: Soft, mostly epigastric pain also some slight right upper quadrant and some left upper quadrant pain. She has multiple old scars from prior surgeries. There is no guarding or rebound no lower abdominal pain no pain at McBurney's. Back: Nontender, Normal Inspection. Negative for: CVA tenderness Extremities: Nontender, No edema Skin: Normal color, No rash l Const Vital Signs: 06/29/22 21:16 Temperature 98.0 F Temperature Source Temporal Pulse Rate 87 Respiratory Rate 16 Blood Pressure 183/91 H Blood Pressure Mean 121 Pulse Ox 98 Oxygen Delivery Method Room Air MDM MDM MDM Narrative Medical decision making narrative: Patient has a normal white count, no evidence of a UTI, no evidence of obstruction. CT is unremarkable except for possible epiploic appendagitis, she also has an abdominal wall defect which is likely chronic. There is no evidence of appendicitis, she already had her gallbladder out therefore I do not believe she needs an ultrasound of her gallbladder. No evidence of bowel obstruction. She received analgesia and improved. I believe she can be safely discharged home. There is no indication for admission at this time. She has an appoint with her surgeon she can discuss some of these findings. He is likely self-limited. I thought about analgesia for home but she gets morphine 3 times a day from her pain management doctor. Lab Data Labs: Laboratory Results - last 24 hr 06/29/22 06/29/22 06/29/22 21:34 22:25 22:25 WBC 7.6 RBC 3.91 L Hgb 11.9 L Hct 36.0 L MCV 92.1 MCH 30.4 MCHC 33.1 RDW Std Deviation 43.3 RDW Coeff of Julianna 12.9 Plt Count 147 L MPV 10.7 Immature Gran % (Auto) 0.500 Neut % (Auto) 71.8 H Lymph % (Auto) 13.4 L [place] % (Auto) 12.9 H Eos % (Auto) 0.9 Baso % (Auto) 0.5 Absolute Neuts (auto) 5.4 Absolute Lymphs (auto) 1.02 Nucleated RBC % 0 Sodium 142 Potassium 3.7 Chloride 110 H Carbon Dioxide 27.0 Anion Gap 5 BUN 22 H Creatinine 1.08 H Estim Creat Clear Calc 38.38 Est GFR (MDRD) Af Amer 64 Est GFR (MDRD) Non-Af 53 L BUN/Creatinine Ratio 20.4 H Glucose 155 H Calcium 9.5 Total Bilirubin 0.30 AST 18 ALT 25 Alkaline Phosphatase 85 Total Protein 6.2 L Albumin 3.0 L Globulin 3.2 Albumin/Globulin Ratio 0.9 Lipase 10 L Urine Color Yellow Urine Clarity Clear Urine pH 5.0 Ur Specific [place] 1.025 Urine Protein 30 H Urine Glucose (UA) Normal Urine Ketones Negative Urine Occult Blood 10 H Urine Nitrite Negative Urine Bilirubin Negative Urine Urobilinogen 1 H Ur Leukocyte Esterase 25 H Urine RBC 0-5 SEEN Urine WBC 0-5 SEEN Ur Squamous Epith Cells 0-5 SEEN Urine Bacteria RARE Urine Mucus 0 SEEN Radiography Diagnostic Testing: Clinical Impression(s) from Imaging Studies Abdomen/Pelvis CT 06/29/22 22:03 IMPRESSION: 1. Stranding in the omentum in the epigastric region surrounding an area of fat density, adjacent to the colon and anterior to the left hepatic lobe. This may indicate a small omental infarct or epiploic appendagitis. 2. Diastases of the abdominal rectus muscles with bowel loops extending into a low ventral abdominal wall hernia. No resulting bowel obstruction. Electronically Signed: Gerardo Saul MD at 23:13 EDT , Discharge Plan Triage Chief Complaint: Abd Pain ED Provider: Jerry Oliveira Dx/Rx/DC Orders Clinical Impression: Epiploic appendagitis, Abdominal pain Instructions: Abdominal Pain Prescriptions: No Action morphine 30 mg capsule, ER multiphase 24 hr 15 mg PO TID valsartan 160 mg tablet 160 mg PO DAILY Label Comments: TAKE 1 TABLET BY MOUTH EVERY DAY hydroxychloroquine 200 mg tablet 200 mg PO DAILY magnesium oxide 400 mg magnesium tablet 400 mg PO DAILY Qty: 90 4RF ergocalciferol (vitamin D2) [Vitamin D2] 1,250 mcg (50,000 unit) capsule 1,250 mcg PO QWEEK loperamide [Anti-Diarrheal (loperamide)] 2 mg capsule 2 mg PO Q4H PRN (Reason: Diarrhea) Rx Instructions: administer after each loose stool until symptoms controlled; do not exceed 8 mg per 24 hrs insulin lispro 100 unit/mL solution 1 sliding scale dose subcut USEASDIRECTD Gemtesa 75 mg tablet 75 mg PO DAILY metformin 500 MG tablet 1,000 mg PO DAILY Label Comments: DIABETES cyanocobalamin (vitamin B-12) 2,000 MCG tablet 500 mcg PO DAILY acetaminophen 500 MG tablet 1,000 mg PO TID PRN (Reason: Pain 1-10 Or Fever) folic acid 0.8 MG tablet 800 mg PO DAILY omega-3 fatty acids-fish oil 1 EACH capsule 1 ea PO QHS omeprazole 20 MG capsule 40 mg PO DAILY promethazine [Phenergan] 25 mg Tablet 25 mg PO Q6H PRN (Reason: Nausea) ondansetron 4 mg tablet,disintegrating 4 mg PO BID PRN (Reason: nausea and vomiting) Qty: 10 0RF ondansetron [ondansetron] 4 mg tablet,disintegrating 8 mg PO Q8H PRN PRN (Reason: Nausea) Qty: 12 0RF vancomycin 125 mg capsule 125 mg PO Q6H 10 Days Qty: 40 0RF furosemide 20 mg tablet 10 mg PO DAILY Qty: 45 4RF fenofibrate 54 mg tablet 54 mg PO DAILY Qty: 90 4RF amlodipine 10 mg tablet 10 mg PO QHS Qty: 90 3RF metoprolol succinate 50 mg tablet extended release 24 hr 50 mg PO QHS Qty: 90 3RF Primary Care Provider: Yasemin Carney Referrals: Yasemin Carney MD [Primary Care Provider] - 3-5 Days Disposition Disposition: Home, Self Care
[2022-06-29] MEDS: Ondansetron 4 MG/2 ML Vial IV (22:33)
[2022-06-29] MEDS: Morphine 4 MG/ML Syringe IV (22:33)
[2022-06-29 22:34] LABS: Mucous, Urine 0 SEEN /hpf (<or=2+)
[2022-06-29 22:35] LABS: Absolute Lymphocyte Count 1.02 X10^3/uL (0.83-4.51); Absolute Neutrophil Count 5.4 X10^3/uL (2.0-7.7); Basophil# 0.04 X10^3/uL; Basophil% 0.5 % (0-1); Eosinophil# 0.07 X10^3/uL; Eosinophils% 0.9 % (0-5); Hemoglobin 11.9 g/dL (12.0-15.0); Lymphocyte # 1.02 X10^3/ul (0.83-4.51); Lymphocyte % 13.4 % (19-41); Mean Corp Hgb Conc 33.1 g/dL (32-36); Mean Corpuscular Hgb 30.4 pg (27.0-32.0); Mean Corpuscular Volume 92.1 fL (81-99); Mean Platelet Vol. 10.7 fl (6.2-12.0); Monocyte# 0.98 X10^3/uL; Monocyte% 12.9 % (0-10); NRBC Flagged by Analyzer 0 % (0-5); Neutrophil # 5.44 X10^3/uL (2.7-7.7); Neutrophil % 71.8 % (47-70); Platelet Count 147 K/mm3 (150-450); RBC Distribution Width CV 12.9 % (11.6-14.6); RBC Distribution Width SD 43.3 fl (35.1-43.9); Red Blood Count 3.91 M/mm3 (4.2-5.4); White Blood Count 7.6 K/mm3 (4.4-11.0)
[2022-06-29 22:35] LABS: Color, Urine Yellow (Yellow); Glucose, Dipstick Normal (Normal); Ketone-Dipstick Negative (Negative); Leukocyte Esterase-Dipstick 25 /ul (Negative); Nitrite-Dipstick Negative (Negative); Occult Blood-Urine 10 /ul (Negative); Protein-Dipstick 30 mg/dl (Negative); Specific Gravity, Urine 1.025 (1.002-1.030); Urine Bilirubin Dipstick Negative (Negative); Urine Clarity Clear (Clear); Urine Urobilinogen 1 mg/dl (Normal)
[2022-06-29 22:44] LABS: Bacteria RARE /hpf (None Seen); Squamous Epithelial Cells - UA 0-5 SEEN /hpf (5-10); White Blood Cells 0-5 SEEN /hpf (0-5)
[2022-06-29 22:45] LABS: Red Blood Cells-Urine 0-5 SEEN /hpf (0-5)
[2022-06-29 22:55] LABS: ALB/GLOB Ratio 0.9 RATIO (0.9-2.4); AST(SGOT) 18 U/L (15-37); Alanine Aminotransfer ALT/SGPT 25 U/L (13-56); Alkaline Phosphatase 85 U/L (45-117); Anion Gap 5 (5-15); BUN 22 mg/dL (7-18); BUN/Creat Ratio 20.4 RATIO (10-20); Calcium,Total 9.5 mg/dL (8.5-10.1); Chloride 110 mmol/L (98-107); Creatinine, Serum 1.08 mg/dL (0.55-1.02); EST Glomerular Filtration Rate 53 mL/min (>60); Est Glom Filt Rate - Afr Amer 64 mL/min (>60); Estimated Creatinine Clearance 38.38 ml/min; Globulin 3.2 g/dL (2.2-4.2); Glucose 155 mg/dL (74-106); Lipase 10 U/L (13-75); Potassium 3.7 mmol/L (3.5-5.1); Protein, Total 6.2 g/dL (6.4-8.2); Sodium Level 142 mmol/L (136-145)
[2022-06-29] MEDS: Famotidine 200 MG/20 ML MDV 20 MG in 0.9% Normal Saline (Pres. free 8 ML 300 MG IV (23:32)
[2022-06-29] MEDS: Mag Hydrox/Al Hydrox/Simeth 30 ML UDC PO (23:33)
[2022-06-29] MEDS: oxyCODONE 5 MG Tablet PO (23:33)
[2022-06-29 23:48] VITALS: BP 157/89; PULSE 87; RESP 18; O2SAT 97
== END 2022-06-30 | disposition home or self-care (01) ==
PROVIDERS: Emergency Provider Emergency Medicine; PCP Internal Medicine; Visit Provider Emergency Medicine
DX: K63.89 Other specified diseases of intestine (principal); I50.32 Chronic diastolic (congestive) heart failure; I13.0 Hypertensive heart and chronic kidney disease with heart failure and stage 1 through stage 4 chronic kidney disease, or unspecified chronic kidney disease; E11.22 Type 2 diabetes mellitus with diabetic chronic kidney disease; N18.30 Chronic kidney disease, stage 3 unspecified; E78.5 Hyperlipidemia, unspecified; Q43.8 Other specified congenital malformations of intestine
CPT/HCPCS: 74176; 80053; 81001; 83690; 85025; 96361; 96374; 96375; 99285; J7040; A4216; J2405; J3490

== ENCOUNTER → 2022-08-10 | Outpatient (CLI) | payer MEDICARE, SELFPAY ==
[2022-08-10 17:41] LABS: Absolute Lymphocyte Count 0.97 X10^3/uL (0.83-4.51); Absolute Neutrophil Count 4.6 X10^3/uL (2.0-7.7); Basophil# 0.03 X10^3/uL; Basophil% 0.5 % (0-1); Eosinophil# 0.07 X10^3/uL; Eosinophils% 1.1 % (0-5); Hematocrit 40.6 % (37-47); Lymphocyte # 0.97 X10^3/ul (0.83-4.51); Lymphocyte % 15.2 % (19-41); Mean Corpuscular Hgb 30.1 pg (27.0-32.0); Mean Platelet Vol. 10.7 fl (6.2-12.0); Monocyte# 0.63 X10^3/uL; Monocyte% 9.9 % (0-10); NRBC Flagged by Analyzer 0 % (0-5); Neutrophil # 4.64 X10^3/uL (2.7-7.7); Neutrophil % 72.7 % (47-70); Platelet Count 185 K/mm3 (150-450); RBC Distribution Width CV 12.8 % (11.6-14.6); RBC Distribution Width SD 44.1 fl (35.1-43.9); Red Blood Count 4.32 M/mm3 (4.2-5.4); White Blood Count 6.4 K/mm3 (4.4-11.0)
[2022-08-10 18:23] LABS: AST(SGOT) 23 U/L (15-37); Alanine Aminotransfer ALT/SGPT 32 U/L (13-56); Albumin, Serum 3.3 g/dL (3.2-5.0); Alkaline Phosphatase 85 U/L (45-117); Anion Gap 5 (5-15); BUN 26 mg/dL (7-18); BUN/Creat Ratio 25.2 RATIO (10-20); Calcium,Total 9.8 mg/dL (8.5-10.1); Chloride 109 mmol/L (98-107); Creatinine, Serum 1.03 mg/dL (0.55-1.02); EST Glomerular Filtration Rate 56 mL/min (>60); Est Glom Filt Rate - Afr Amer 67 mL/min (>60); Globulin 3.3 g/dL (2.2-4.2); Glucose 130 mg/dL (74-106); Potassium 4.3 mmol/L (3.5-5.1); Protein, Total 6.6 g/dL (6.4-8.2); Sodium Level 140 mmol/L (136-145)
== END | disposition home or self-care (01) ==
LOC: MTLAB 15:55
PROVIDERS: PCP Internal Medicine; Referring Provider Internal Medicine Rheumatology; Visit Provider Internal Medicine Rheumatology
DX: M06.4 Inflammatory polyarthropathy (principal); Z79.899 Other long term (current) drug therapy
CPT/HCPCS: 36415; 80053; 85025

== ENCOUNTER → 2023-02-02 | Outpatient (CLI) | payer MEDICARE, SELFPAY ==
[2023-02-02 15:18] LABS: Absolute Lymphocyte Count 1.01 X10^3/uL (0.83-4.51); Absolute Neutrophil Count 3.4 X10^3/uL (2.0-7.7); Basophil# 0.03 X10^3/uL; Basophil% 0.6 % (0-1); Eosinophil# 0.09 X10^3/uL; Eosinophils% 1.8 % (0-5); Hematocrit 39.6 % (37-47); Hemoglobin 12.5 g/dL (12.0-15.0); Lymphocyte # 1.01 X10^3/ul (0.83-4.51); Lymphocyte % 20.2 % (19-41); Mean Corp Hgb Conc 31.6 g/dL (32-36); Mean Corpuscular Hgb 29.9 pg (27.0-32.0); Mean Corpuscular Volume 94.7 fL (81-99); Mean Platelet Vol. 10.7 fl (6.2-12.0); Monocyte# 0.47 X10^3/uL; Monocyte% 9.4 % (0-10); NRBC Flagged by Analyzer 0 % (0-5); Neutrophil # 3.37 X10^3/uL (2.7-7.7); Neutrophil % 67.4 % (47-70); Platelet Count 177 K/mm3 (150-450); RBC Distribution Width CV 13.4 % (11.6-14.6); RBC Distribution Width SD 47.2 fl (35.1-43.9); Red Blood Count 4.18 M/mm3 (4.2-5.4)
[2023-02-02 15:45] LABS: ALB/GLOB Ratio 0.9 RATIO (0.9-2.4); AST(SGOT) 19 U/L (15-37); Alanine Aminotransfer ALT/SGPT 20 U/L (13-56); Albumin, Serum 3.2 g/dL (3.2-5.0); Alkaline Phosphatase 80 U/L (45-117); Anion Gap 3 (5-15); BUN 25 mg/dL (7-18); BUN/Creat Ratio 26.2 RATIO (10-20); Chloride 108 mmol/L (98-107); Creatinine, Serum 0.95 mg/dL (0.55-1.02); EST Glomerular Filtration Rate 61 mL/min (>60); Est Glom Filt Rate - Afr Amer 74 mL/min (>60); Globulin 3.6 g/dL (2.2-4.2); Glucose 142 mg/dL (74-106); Protein, Total 6.8 g/dL (6.4-8.2); Sodium Level 140 mmol/L (136-145)
== END | disposition home or self-care (01) ==
LOC: MTLAB 13:15
PROVIDERS: PCP Internal Medicine; Referring Provider Internal Medicine Rheumatology; Visit Provider Internal Medicine Rheumatology
DX: M06.09 Rheumatoid arthritis without rheumatoid factor, multiple sites (principal); M79.7 Fibromyalgia; Z79.899 Other long term (current) drug therapy
CPT/HCPCS: 36415; 80053; 85025

== ENCOUNTER → 2023-03-07 | Outpatient (CLI) | payer MEDICARE, SELFPAY ==
[2023-03-07 15:19] LABS: Amphetamine Urine VISTA NEGATIVE (<1000 ng/mL); Barbiturate Urine VISTA NEGATIVE (< 200 ng/mL); Benzodiazepine Urine VISTA NEGATIVE (< 200 ng/mL); Cocaine Urine VISTA NEGATIVE (< 300 ng/mL); Ecstacy Urine VISTA NEGATIVE (< 500 ng/mL); Methadone Urine VISTA NEGATIVE (< 300 ng/mL); PCP Urine VISTA NEGATIVE (< 25 ng/mL); THC Urine VISTA NEGATIVE (< 50 ng/mL); Vista UDS pH Range 6
== END | disposition home or self-care (01) ==
LOC: LAB 14:24
PROVIDERS: PCP Internal Medicine; Referring Provider Anesthesiology Pain Medicine; Visit Provider Anesthesiology Pain Medicine
DX: F11.20 Opioid dependence, uncomplicated (principal)
CPT/HCPCS: 80307

== ENCOUNTER 2023-06-07 11:30 | Outpatient (RCR) | payer MEDICARE, SELFPAY ==
--- NOTE | 2023-05-10 14:30 | HP.PTEVAL_ITS ---
Patient's Visit Information Visit Information Visit Information: SAEID URBINA is a 72 year old F referred to Physical Therapy by Dr. Cesilia Brown MD with a diagnosis of BACK AND LEG PAIN. Date of Evaluation: 05/10/23 Physical Therapist: Arina Bocanegra PT, Cert MDT Visit Plan Frequency: 2-3x /Week Duration: 4-6 Weeks Plan: Gait training with progression to cane or LRD to help patient return to PLOF. Neutral Spine Core Stability Exercises and Hamstring and Calf Stretching to help reduce stress to the Lumbar Spine with all Daily Activities. Hakan LE Strengthening. Instruction in Proper Posture Control, Body Mechanics, and Appropriate Activity Modifications. HEP Instruction. Subjective Subjective: Work/Leisure: RETIRED. DAUGHTER LIVES WITH HER. Present symptoms: HAKAN LOW BACK PAIN. HAKAN BUTTOCK PAIN. H/O L THIGH PAIN ABOUT A MONTH AGO. HAKAN KNEE PAIN (PATIENT REPORTS SHE NEEDS KNEE REPLACEMENTS). HAKAN FOOT PAIN (PATIENT REPORTS SHE HAS NEUROPATHY). PATIENT DENIES HAKAN LE NUMBNESS AND TINGLING. Present since: CHRONIC LBP. BUTTOCK PAIN STARTED ABOUT 3 MONTHS AGO. Pain Scale: WORST 9/10, LEAST 4/10 Currently: 6/10 Is it getting better, worse or staying the same: STAYING THE SAME. Commenced as a result of: LIXB-GROEC-FE WITH PURGING, LIFTING, WASHING AC, CLEANING. Symptoms at onset: INCREASED BACK PAIN Worse: BENDING OVER WRONG, STANDING ON FEET TOO LONG, SITTING STRAIGHT TOO LONG, WALKING TOO LONG Better: HEATING PAD, TYLONOL, MORPHINE, SITTING Disturbed sleep: SLEEPING IN RECLINER FOR SEVERAL YEARS. 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 AQUATIC THERAPY A LONG TIME AGO. LAST BACK INJECTION WAS JAN 2023 AND THEY USUALLY HELP FOR A FEW MONTHS. NO LOW BACK SURGERY. Treatment this episode: PATIENT REPORTS WHEN SHE SAW DR. BROWN SHE ASKED ABOUT AQUATIC THERAPY BUT NOW SHE REALIZES SHE ISN'T STRONG ENOUGH AND DOESN'T FEEL CAPABLE OF DOING IT. IN ADDITION SHE IS INCONTINENT. Coughing/sneezing/straining: NEGATIVE FOR INCREASED BACK PAIN. Gait: USING FWW ALL THE TIME NOW THAT SHE OVER-DID IT. Bowel or Bladder Dysfunction: URINARY INCONTINENCE. Accidents: NO Unexplained weight loss: NO Imaging: PATIENT REPORTS RECENT CAT SCAN FOR CANCER IN MAR 2023 SHOWS INCREASED LUMBAR DEGENERATION. PMH/Recent major surgery: DX'D WITH COLON CANCER 2020 - TREATED WITH SURGERY, LIVER ABLASION, AND CHEMO. CURRENTLY HAS A NODULES IN LUNGS BEING MONITORED. H/O 6TH NERVE PALSY. Objective Objective: Sitting/Standing Posture: POOR. INCREASED TRUNK FLEXION. NO RELEVANT LATERAL SHIFT. Active Correction of posture: INCREASES BACK PAIN. ONLY ABLE TO PARTIALLY CORRECT AND DOES NOT MAINTAIN. LEANS ON WALKER FREQUENTLY IN STANDING AND WALKING. Other Observations: UNABLE TO TRANSFER SIT TO STAND WITHOUT UE ASSIST. DIFFICULTY INITIATING GAIT AFTER SITTING. AMBULATED INDEP'LY FROM LOBBY TO TREATMENT ROOM FOR EVAL AND BACK OUT AFTER EVAL TODAY BUT STOPS TO REST ON WALKER PERIODICALLY AND LEANDS FORWARD ON WALKER TO GET PAIN RELIEF. Sensory deficit: HAKAN LE LIGHT TOUCH SENSATION IS GROSSLY INTACT AND SYMM ETRICAL. FEET NT. ROM deficit: DECREASED HAKAN HIP ABD, EXTENSION, IR AND ER ROM. DECREASED HAKAN KNEE FLEXION. HAKAN CALF TIGHTNESS. Motor deficit: HAKAN HIPS GROSSLY 4/5, KNEE'S 4/5, ANKLES 5/5. Lumbar mvmt loss: flex - NIL ext - RADHA R SG - RADHA L SG - RADHA PATIENT C/O INCREASED BACK PAIN WITH LUMBAR ROM TESTING ALL PLANES. Core strength: POOR 30 SEC STS TEST: 3 WITH ONE UE ASSIST. TUG TIME: 25.23 SEC WITH FWW. Balance/Special Test Scores Oswestry Low Back Score: 26 Goals Goal 1:: PATIENT WILL REPORT AT LEAST 25% DECREASED BACK AND BUTTOCK PAIN WITH ADL'S. Goal Time Frame: 4-6 Weeks Goal 2:: PATIENT WILL COMPLETE 5 STANDS IN 30 SECS WITH ONE UE ASSIST TO DEMONSTRATE IMPROVED FUNCTIONAL STRENGTH Goal 3:: PATIENT WILL COMPLETE TUG IN < 15 SECS WITH CANE OR LEAST AD TO DEMONSTRATE IMPROVED GAIT STABILITY Goal Time Frame: 4-6 Weeks Goal 4:: PATIENT WILL SCORE AT LEAST 5 POINTS BETTER ON BACK OSWESTRY QUESTIONNAIRE Goal Time Frame: 4-6 Weeks Goal 5:: PATIENT WILL BE INDEP WITH A HEP FOR CONTINUED IMPROVEMENT ONCE FORMAL PHYSICAL THERAPY CONCLUDES. Goal Time Frame: 4-6 Weeks Rehabilitation Potential Physical Therapy Diagnosis: THIS PATIENT PRESENTS TO PT WITH BACK AND LEG PAIN, DIFFICULTY WITH GAIT, TRUNK AND LE WEAKNESS AND STIFFNESS. Rehabilitation Potential: Good Anticipated Interventions Patient/Client Instruction: Educate patient on: Condition, Plan of Care and Risk Factors For the Purpose of:: To improve self management Therapeutic Exercise to Include: Strength training, Body mechanics, Postural training, Flexibilty training, Neuromotor development and Dynamic Lumbar Stabilization For the Purpose of:: To decrease pain, To improve muscle performance and motor function, To increase tolerance to activity/condition/position, To improve ability of physical actions for home/community/work/leisure, To improve gait and locomotor functions and To decrease soft tissue restriction Text: Thank you for the opportunity to evaluate your patient. For Medicare and Medicare HMO plans, please review the plan of care and approve it. It will need to be FAXED BACK to us at [phone] for Medicare purposes. For Medicare only, by signing this I certify the plan of care. Please let me know if there are questions or concerns regarding this plan of care. Physician Signature: Date:
--- NOTE | 2023-06-07 14:25 | HP.PTDCSUM_ITS ---
Discharge Summary D/C summary: It has been my pleasure to treat SAEID URBINA referred by Dr. Cesilia Brown MD, with the diagnosis of BACK AND LEG PAIN for a total of 9 visit(s). Discharge Date: 06/07/23 Please see the following information for a summary of their discharge status. Subjective Subjective: PATIENT REPROTS SHE IS GETTING AROUND MUCH BETTER SINCE STARTING THERAPY. STATES SHE DOESN'T ALWAYS HAVE TO USE THE WALKER IN THE HOUSE NOW. I'M FINDING MYSELF GETTING UP AND GOING WITHOUT THE WALKER MORE AND I'm DOING MORE. PATIENT REPORTS SHE HAS SILVER SNEAKERS AND SHE WANTS TO CONTINUE ON HER OWN NOW. SHE STATES HER SISTER HAS SILVER SNEAKERS TOO AND THEY ARE GOING TO COME TO [facility]. SHE REPORTS SHE SAW DR. BROWN A WEEK AGO AND REC'D HAKAN KNEE INJECTIONS WHICH HAVE HELPED A LOT TOO. PATIENT STATES SHE IS REALLY HAPPY WITH HER PROGRESS. Pain Bilateral Knee: Pain Intensity (Out of 10): 0 LB: Pain Intensity (Out of 10): 0 Overall Improvement % Improvement: 65 Objective Objective/Function: PATIENT WAS SEEN TODAY FOR RE-ASSESSMENT OF PROGRESS TOWARD THE SET PT GOALS AND THE NEED FOR FURTHER PHYSICAL THERAPY VS READINESS FOR DISCHARGE. THIS PATIENT IS MAKING GOOD PROGRESS WITH PT. SHE APPEARS TO BE A GOOD CANDIDATE TO CONTINUE PT BASED ON PROGRESS MADE AND ROOM FOR FURTHER IMPROVEMENT. SHE WOULD PROBABLY ALSO BENEFIT FROM FURTHER INSTRUCTION IN APPROPRIATE GYM EQUIPMENT USE FOR SAFE TRANSITION TO [facility] BUT SHE IS DECLINING AT THIS TIME. SHE STATES SHE WILL JUST START SLOW. UPON EXAM TODAY: Motor deficit: HAKAN HIPS GROSSLY 4/5, KNEE'S 4/5, ANKLES 5/5. Lumbar mvmt loss: flex - NIL ext - RADHA R SG - MOD L SG - MOD PATIENT DENIES INCREASED PAIN WITH LUMBAR ROM TESTING ALL PLANES TODAY. Core strength: FAIR 30 SEC STS TEST: 7 WITHOUT UE ASSIST. TUG TIME: 14.91 SEC WITH ROLLATOR. Goals Goal 1:: PATIENT WILL REPORT AT LEAST 25% DECREASED BACK AND BUTTOCK PAIN WITH ADL'S. Goal Progress: Goal Met Goal 2:: PATIENT WILL COMPLETE 5 STANDS IN 30 SECS WITH ONE UE ASSIST TO DEMONSTRATE IMPROVED FUNCTIONAL STRENGTH Goal Progress: Goal Met Goal 3:: PATIENT WILL COMPLETE TUG IN < 15 SECS WITH CANE OR LEAST AD TO DEMONSTRATE IMPROVED GAIT STABILITY Goal Progress: Goal Met Goal 4:: PATIENT WILL SCORE AT LEAST 5 POINTS BETTER ON BACK OSWESTRY QUESTIONNAIRE Goal Progress: Goal Met Goal 5:: PATIENT WILL BE INDEP WITH A HEP FOR CONTINUED IMPROVEMENT ONCE FORMAL PHYSICAL THERAPY CONCLUDES. Goal Progress: Progressing Plan Plan: D/C AT PATIENTS REQUEST D/C Information d/c sentence: If there are questions or concerns regarding this patient's physical therapy, please feel free to call me at [phone]. Thank you for the referral of this patient. Sincerely, Arina Bocanegra, PT, Cert MDT Balance/Gait/Functional tests Balance/Special Test Scores Oswestry Low Back Score: 20 Improvement % Improvement: 65
== END 2023-06-07 19:00 | disposition home or self-care (01) ==
LOC: PT 11:30
PROVIDERS: PCP Internal Medicine; Referring Provider Anesthesiology Pain Medicine; Visit Provider Anesthesiology Pain Medicine
DX: M54.9 Dorsalgia, unspecified (principal); M79.606 Pain in leg, unspecified
CPT/HCPCS: 97110; 97162; 97164

== ENCOUNTER → 2023-08-01 | Outpatient (CLI) | payer MEDICARE, SELFPAY ==
[2023-08-01 17:45] LABS: Absolute Lymphocyte Count 1.56 X10^3/uL (0.83-4.51); Absolute Neutrophil Count 4.7 X10^3/uL (2.0-7.7); Basophil# 0.03 X10^3/uL; Basophil% 0.4 % (0-1); Eosinophil# 0.07 X10^3/uL; Hematocrit 41.4 % (37-47); Hemoglobin 13.4 g/dL (12.0-15.0); Lymphocyte # 1.56 X10^3/ul (0.83-4.51); Lymphocyte % 21.5 % (19-41); Mean Corp Hgb Conc 32.4 g/dL (32-36); Mean Corpuscular Hgb 29.8 pg (27.0-32.0); Mean Corpuscular Volume 92.2 fL (81-99); Mean Platelet Vol. 10.4 fl (6.2-12.0); Monocyte# 0.77 X10^3/uL; Monocyte% 10.6 % (0-10); NRBC Flagged by Analyzer 0 % (0-5); Neutrophil # 4.72 X10^3/uL (2.7-7.7); Neutrophil % 65.3 % (47-70); Platelet Count 194 K/mm3 (150-450); RBC Distribution Width CV 13.1 % (11.6-14.6); Red Blood Count 4.49 M/mm3 (4.2-5.4); White Blood Count 7.2 K/mm3 (4.4-11.0)
[2023-08-01 17:58] LABS: AST(SGOT) 18 U/L (15-37); Alanine Aminotransfer ALT/SGPT 22 U/L (13-56); Albumin, Serum 3.4 g/dL (3.2-5.0); Alkaline Phosphatase 69 U/L (45-117); Anion Gap 5 (5-15); BUN 36 mg/dL (7-18); BUN/Creat Ratio 34.6 RATIO (10-20); Calcium,Total 9.9 mg/dL (8.5-10.1); Chloride 106 mmol/L (98-107); Creatinine, Serum 1.04 mg/dL (0.55-1.02); EST Glomerular Filtration Rate 55 mL/min (>60); Est Glom Filt Rate - Afr Amer 67 mL/min (>60); Globulin 3.4 g/dL (2.2-4.2); Glucose 121 mg/dL (74-106); Potassium 4.1 mmol/L (3.5-5.1); Protein, Total 6.8 g/dL (6.4-8.2); Sodium Level 139 mmol/L (136-145)
== END | disposition home or self-care (01) ==
PROVIDERS: PCP Internal Medicine; Referring Provider Internal Medicine Rheumatology; Visit Provider Internal Medicine Rheumatology
DX: M06.09 Rheumatoid arthritis without rheumatoid factor, multiple sites (principal); M79.7 Fibromyalgia; M15.9 Polyosteoarthritis, unspecified; Z79.899 Other long term (current) drug therapy
CPT/HCPCS: 36415; 80053; 85025

== ENCOUNTER → 2023-10-17 | Outpatient (CLI) | payer MEDICARE, SELFPAY ==
[2023-10-17 11:58] LABS: Amphetamine Urine VISTA NEGATIVE (<1000 ng/mL); Barbiturate Urine VISTA NEGATIVE (< 200 ng/mL); Benzodiazepine Urine VISTA NEGATIVE (< 200 ng/mL); Cocaine Urine VISTA NEGATIVE (< 300 ng/mL); Ecstacy Urine VISTA NEGATIVE (< 500 ng/mL); Methadone Urine VISTA NEGATIVE (< 300 ng/mL); PCP Urine VISTA NEGATIVE (< 25 ng/mL); THC Urine VISTA NEGATIVE (< 50 ng/mL); Vista UDS pH Range 6
== END | disposition home or self-care (01) ==
PROVIDERS: PCP Internal Medicine; Referring Provider Anesthesiology Pain Medicine; Visit Provider Anesthesiology Pain Medicine
DX: F11.20 Opioid dependence, uncomplicated (principal)
CPT/HCPCS: 80307

== ENCOUNTER 2024-01-04 06:27 | Emergency (ER) | payer MEDICARE, SELFPAY ==
[2024-01-04 06:28] VITALS: BP 184/105; PULSE 56; RESP 18; TEMP 36.7; O2SAT 100; BMI 37.6
[2024-01-04 06:37] VITALS: O2SAT 98
--- NOTE | 2024-01-04 06:37 | RAD_ITS ---
EXAM: XR CHEST, 1 VIEW CLINICAL INDICATION: chest pain TECHNIQUE: Frontal view of the chest. COMPARISON: 01/23/2012 FINDINGS: LUNGS AND PLEURAL SPACES: Unremarkable. No consolidation or edema. No pneumothorax. No effusion. HEART: Unremarkable. Cardiac silhouette not enlarged. MEDIASTINUM: Central airways and mediastinal contour are unremarkable. BONES/JOINTS: Unremarkable. No acute fracture. SOFT TISSUES: There are surgical clips in the right axilla. TUBES, LINES AND DEVICES: Left-sided Port-A-Cath is in place with the distal tip overlying the superior vena cava. RAD/Chest 1 View (Portable) IMPRESSION: No acute pulmonary abnormality. Electronically Signed: Flavio Robertson MD at 8:14 EST ,
--- NOTE | 2024-01-04 06:37 | EKG12_ITS ---
Test Reason : Blood Pressure : */* mmHG Vent. Rate : 71 BPM Atrial Rate : 71 BPM P-R Int : 224 ms QRS Dur : 86 ms QT Int : 374 ms P-R-T Axes : 52 13 52 degrees QTcB Int : 406 ms Sinus rhythm with 1st degree A-V block Poor R wave progression Abnormal ECG Confirmed by Russel Olivera ([id number]), editorial writer JULIA MAY ([id number]) on 01/07/2024 11:28:15 AM Referred By: Confirmed By: Russel Olivera
--- NOTE | 2024-01-04 06:38 | EDS_ITS ---
HPI History of Present Illness Chief Complaint: Hypertension Narrative Narrative: 73-year-old female past medical history of hypertension, presents with left arm numbness that lasted about a minute. She noticed that her blood pressure was elevated in the 180s to 190s systolic. She denies any headache or chest pain, no shortness of breath. She feels fine currently. She got up because she sleeps in a recliner, and noticed that her hand was a little numb. She states that when she went to get up, her entire arm on the left went numb for approximately 1 minute. It felt more like [id number]. That resolved. They checked her blood pressure and it was elevated. Her blood sugar was acceptable and she states her pulse ox was normal. She is completely asymptomatic currently, but felt she needed checked because of the quick arm numbness. No headaches. She had to call EMS because her daughter was unable to drive her. [facility] Medical History Adverse effect of COVID-19 vaccine Colon cancer COPD (chronic obstructive pulmonary disease) Breast cancer Chronic diastolic (congestive) heart failure Hyperlipidemia Chronic low back pain Rheumatoid arthritis Obstructive sleep apnea syndrome Fibromyalgia Gastroesophageal reflux disease Morbid obesity Essential hypertension Type 2 diabetes mellitus CKD (chronic kidney disease), stage III Home Medications ?Medication ?Instructions ?Recorded ?Last Taken ?Type cyanocobalamin (vitamin B-12) 1,000 mcg PO DAILY 09/02/15 Unknown History 2,000 mcg tablet acetaminophen 500 mg tablet 1,000 mg PO TID PRN Pain 1-10 Or 10/29/15 Unknown History Fever folic acid 800 mcg tablet 800 mg PO DAILY 05/23/17 Unknown History omega-3 fatty acids-fish oil 340 1 ea PO QHS 05/23/17 05/20/17 History mg-1,000 mg capsule hydroxychloroquine 200 mg tablet 200 mg PO DAILY 10/16/19 Unknown History magnesium oxide 400 mg PO DAILY #90 tabs 10/16/19 Unknown Rx valsartan 160 mg tablet 160 mg PO DAILY 10/16/19 01/16/20 09:30 History 160 MG omeprazole 20 mg capsule,delayed 40 mg PO DAILY 01/14/20 01/16/20 09:30 History release 20 MG insulin lispro 100 unit/mL 1 sliding scale dose subcut 10/20/21 Unknown History subcutaneous solution USEASDIRECTD amlodipine 10 mg tablet 10 mg PO QHS #90 tabs 05/11/22 Unknown Rx metoprolol succinate 50 mg 50 mg PO QHS #90 tabs 05/11/22 Unknown Rx tablet,extended release 24 hr aspirin 81 mg tablet,delayed 81 mg PO DAILY 01/12/23 Unknown History release (Adult Low Dose Aspirin) fenofibrate 54 mg tablet 54 mg PO DAILY #90 tabs 01/12/23 Unknown Rx metformin 500 mg tablet,extended 500 mg PO DAILY 01/12/23 Unknown History release 24 hr morphine 30 mg capsule,extended 15 mg PO BID 01/12/23 Unknown History release 24 hr multiphase tiotropium 2.5 mcg-olodaterol 2.5 2 puff inhalation DAILY 01/12/23 Unknown History mcg/actuation mist for inhalation (Stiolto Respimat) amitriptyline 50 mg tablet 50 mg PO QDAY 01/01/24 Unknown History fesoterodine 4 mg tablet,extended 4 mg PO QDAY 01/01/24 Unknown History release 24 hr albuterol sulfate 90 mcg/actuation 2 puff inhalation Q4H PRN 01/04/24 Unknown History aerosol inhaler shortness of breath or wheezing cholecalciferol (vitamin D3) 25 25 mcg PO DAILY 01/04/24 Unknown History mcg (1,000 unit) capsule (Vitamin D3) diclofenac sodium 1 % topical gel 1 - 2 ea topical DAILY 01/04/24 Unknown History diclofenac sodium 3 % topical gel 1 applic topical BID 01/04/24 Unknown History furosemide 20 mg tablet 20 mg PO DAILY PRN edema 01/04/24 Unknown History ondansetron 4 mg disintegrating 4 mg PO Q6H PRN nausea and vomiting 01/04/24 Unknown History tablet Allergy/AdvReac Type Severity Reaction Status Date / Time ciprofloxacin (From Cipro) Allergy Rash Verified 01/04/24 06:41 ciprofloxacin HCl (From Allergy Rash Verified 01/04/24 06:41 Cipro) dicyclomine Allergy Rash Verified 01/04/24 06:41 erythromycin base (From Allergy Rash Verified 01/04/24 06:41 E-Mycin) ketoprofen (From Oruvail) Allergy Itching Verified 01/04/24 06:41 loratadine (From Claritin) Allergy Rash Verified 01/04/24 06:41 nabumetone (From Relafen) Allergy Rash Verified 01/04/24 06:41 naproxen Allergy Swelling Verified 01/04/24 06:41 Vauvqao-VPQ-CnX Reductase Allergy Itching Verified 01/04/24 06:41 Inhibitor (Ehnfnpd-Qst-Gpr Reductase Inhibitor) Family History Father Heart disease Myocardial infarction late 50's Mother Cancer Brother Cancer Sister Lupus Surgical History Ablation to lumbar spine (07/2017) History of tubal ligation History of tonsillectomy and adenoidectomy History of lumpectomy of right breast (2010) History of cholecystectomy History of Social History Smoking Status: Never smoker ROS ROS ED ROS Narrative Constitutional: No fever, no chills. Elevated blood pressure. HEENT: No sore throat. No neck pain. No loss of vision. No rhinorrhea. Cardiovascular: No chest pain. No palpitations. No pedal edema. Respiratory: No cough, no shortness of breath. Abdominal: No abdominal pain. No nausea. No vomiting. Genitourinary: No dysuria. No hematuria. Musculoskeletal: No myalgias. No arthralgias. Neurologic: No headaches. No dizziness. No lightheadedness. Positive paresthesia of left arm x 1 minute. Started in hand and traveled upward. Skin: No rash. No change in color. Psychiatric: No depression. No anxiety. EXAM Physical Exam Narrative Exam Narrative: Afebrile. Vital signs noted. Blood pressure 184/105. Cardiovascular examination reveals a bradycardia in the 50s. Lungs clear to auscultation bilaterally. Abdomen is soft, nontender, with positive bowel sounds. Neurological examination nonfocal and nonlateralizing. Neurovascular intact left upper extremity with palpable radial pulse. Full range of motion of left upper extremity. Const Vital Signs: 01/04/24 06:28 01/04/24 06:37 01/04/24 06:42 Temperature 98.1 F Temperature Source Oral Pulse Rate 56 L Respiratory Rate 18 Respiratory Effort Normal Respiratory Pattern Normal Blood Pressure 184/105 H Blood Pressure Mean 131 Pulse Ox 100 98 Oxygen Delivery Method Room Air Room Air MDM MDM MDM Narrative Medical decision making narrative: Differential diagnosis includes but not limited to ACS versus paresthesia from positioning versus TIA. I have very low suspicion for TIA based on the history and physical. I do not feel CT of the brain is indicated. EKG was obtained and interpreted by myself independently as normal sinus rhythm at 71 bpm with first- degree AV block, no acute ST changes. No STEMI. Hydralazine 5 mg was ordered although she is currently asymptomatic. I reviewed her laboratory work that has returned and she has a normal white count of 5.0, hemoglobin 13.2, hematocrit 39.2, platelet count low at 132. In review of her prior laboratories she has had intermittent thrombocytopenia in the past. I do not feel she requires platelet transfusion. In review of her remaining laboratories, chloride elevated at 111 with BUN of 24 and creatinine 0.86. Initial high-sensitivity troponin 6. At this point in time, patient will be signed out to the oncoming physician, Dr. Wilner Vu, to check a second troponin and ensure that the patient's blood pressure is adequately controlled. Disposition is pending. She is in stable condition. History & Record Review Discussion w/independent historian: Patient Lab Data Attestation: I reviewed the patient's lab results. Labs: Laboratory Results - last 24 hr 01/04/24 07:10 WBC 5.0 RBC 4.31 Hgb 13.2 Hct 39.2 MCV 91.0 MCH 30.6 MCHC 33.7 RDW Std Deviation 42.6 RDW Coeff of Julian[place] 12.9 Plt Count 132 L MPV 11.9 Immature Gran % (Auto) 0.600 Neut % (Auto) 63.8 Lymph % (Auto) 23.0 [place] % (Auto) 11.0 H Eos % (Auto) 1.2 Baso % (Auto) 0.4 Absolute Neuts (auto) 3.2 Absolute Lymphs (auto) 1.15 Nucleated RBC % 0 Sodium 143 Potassium 3.8 Chloride 111 H Carbon Dioxide 26.0 Anion Gap 6 BUN 24 H Creatinine 0.86 Estim Creat Clear Calc 62.46 Est GFR (MDRD) Af Amer 83 Est GFR (MDRD) Non-Af 69 BUN/Creatinine Ratio 27.9 H Glucose 143 H Calcium 9.5 Troponin I High Sens 6 Discharge Plan Triage Chief Complaint: Hypertension ED Provider: Dustin Newton Dx/Rx/DC Orders Prescriptions: No Action morphine 30 mg capsule, ER multiphase 24 hr 15 mg PO BID valsartan 160 mg tablet 160 mg PO DAILY Patient Comments: TAKE 1 TABLET BY MOUTH EVERY DAY hydroxychloroquine 200 mg tablet 200 mg PO DAILY magnesium oxide 400 mg magnesium tablet 400 mg PO DAILY Qty: 90 4RF insulin lispro 100 unit/mL solution 1 sliding scale dose subcut USEASDIRECTD aspirin [Adult Low Dose Aspirin] 81 mg tablet,delayed release (DR/EC) 81 mg PO DAILY Stiolto Respimat 2.5-2.5 mcg/actuation mist 2 puff inhalation DAILY amitriptyline 50 mg tablet 50 mg PO QDAY fesoterodine 4 mg tablet extended release 24 hr 4 mg PO QDAY metformin 500 mg tablet extended release 24 hr 500 mg PO DAILY Patient Comments: DIABETES cyanocobalamin (vitamin B-12) 2,000 MCG tablet 1,000 mcg PO DAILY acetaminophen 500 MG tablet 1,000 mg PO TID PRN (Reason: Pain 1-10 Or Fever) folic acid 0.8 MG tablet 800 mg PO DAILY omega-3 fatty acids-fish oil 1 EACH capsule 1 ea PO QHS omeprazole 20 MG capsule 40 mg PO DAILY cholecalciferol (vitamin D3) [Vitamin D3] 25 mcg (1,000 unit) capsule 25 mcg PO DAILY albuterol sulfate 90 mcg/actuation HFA aerosol inhaler 2 puff inhalation Q4H PRN (Reason: shortness of breath or wheezing) diclofenac sodium 1 % gel 1 - 2 ea topical DAILY diclofenac sodium 3 % gel 1 applic topical BID furosemide 20 mg tablet 20 mg PO DAILY PRN (Reason: edema) ondansetron 4 mg tablet,disintegrating 4 mg PO Q6H PRN (Reason: nausea and vomiting) amlodipine 10 mg tablet 10 mg PO QHS Qty: 90 3RF metoprolol succinate 50 mg tablet extended release 24 hr 50 mg PO QHS Qty: 90 3RF fenofibrate 54 mg tablet 54 mg PO DAILY Qty: 90 3RF Primary Care Provider: Yasemin Carney Referrals: Yasemin Carney MD [Primary Care Provider] - Print Language: Uzbek
[2024-01-04] MEDS: hydrALAZINE 20 MG/ML Vial 5 MG IV (07:13)
[2024-01-04 07:39] LABS: Absolute Lymphocyte Count 1.15 X10^3/uL (0.83-4.51); Absolute Neutrophil Count 3.2 X10^3/uL (2.0-7.7); Basophil# 0.02 X10^3/uL; Basophil% 0.4 % (0-1); Eosinophil# 0.06 X10^3/uL; Eosinophils% 1.2 % (0-5); Hematocrit 39.2 % (37-47); Hemoglobin 13.2 g/dL (12.0-15.0); Lymphocyte # 1.15 X10^3/ul (0.83-4.51); Mean Corp Hgb Conc 33.7 g/dL (32-36); Mean Corpuscular Hgb 30.6 pg (27.0-32.0); Mean Platelet Vol. 11.9 fl (6.2-12.0); Monocyte# 0.55 X10^3/uL; NRBC Flagged by Analyzer 0 % (0-5); Neutrophil # 3.18 X10^3/uL (2.7-7.7); Neutrophil % 63.8 % (47-70); Platelet Count 132 K/mm3 (150-450); RBC Distribution Width CV 12.9 % (11.6-14.6); RBC Distribution Width SD 42.6 fl (35.1-43.9); Red Blood Count 4.31 M/mm3 (4.2-5.4)
[2024-01-04 08:05] LABS: Anion Gap 6 (5-15); BUN 24 mg/dL (7-18); BUN/Creat Ratio 27.9 RATIO (10-20); Calcium,Total 9.5 mg/dL (8.5-10.1); Chloride 111 mmol/L (98-107); Creatinine, Serum 0.86 mg/dL (0.55-1.02); EST Glomerular Filtration Rate 69 mL/min (>60); Est Glom Filt Rate - Afr Amer 83 mL/min (>60); Estimated Creatinine Clearance 62.46 ml/min; Glucose 143 mg/dL (74-106); Potassium 3.8 mmol/L (3.5-5.1); Sodium Level 143 mmol/L (136-145); Troponin-I HS (w/2H Reflex) 6 pg/mL (3.0-54.0)
[2024-01-04 08:35] VITALS: BP 156/83; PULSE 71; RESP 16; O2SAT 97
[2024-01-04 09:31] LABS: Reflex Troponin-HS? (from REC) Y
[2024-01-04 10:40] LABS: Troponin-I HS 7 pg/mL (3.0-54.0)
[2024-01-04 10:41] VITALS: BP 151/75; PULSE 69; RESP 17; TEMP 36.4; O2SAT 99
--- NOTE | 2024-01-04 10:49 | EX.ED.DYSGE1 ---
HPI <Dr. Wilner Vu DO - Last Filed: 01/04/24 10:52> History of Present Illness Chief Complaint: Hypertension PFSH <Dr. Wilner Vu DO - Last Filed: 01/04/24 10:52> [facility] Medical History Adverse effect of COVID-19 vaccine Colon cancer COPD (chronic obstructive pulmonary disease) Breast cancer Chronic diastolic (congestive) heart failure Hyperlipidemia Chronic low back pain Rheumatoid arthritis Obstructive sleep apnea syndrome Fibromyalgia Gastroesophageal reflux disease Morbid obesity Essential hypertension Type 2 diabetes mellitus CKD (chronic kidney disease), stage III Home Medications ?Medication ?Instructions ?Recorded ?Last Taken ?Type cyanocobalamin (vitamin B-12) 1,000 mcg PO DAILY 09/02/15 Unknown History 2,000 mcg tablet acetaminophen 500 mg tablet 1,000 mg PO TID PRN Pain 1-10 Or 10/29/15 Unknown History Fever folic acid 800 mcg tablet 800 mg PO DAILY 05/23/17 Unknown History omega-3 fatty acids-fish oil 340 1 ea PO QHS 05/23/17 05/20/17 History mg-1,000 mg capsule hydroxychloroquine 200 mg tablet 200 mg PO DAILY 10/16/19 Unknown History magnesium oxide 400 mg PO DAILY #90 tabs 10/16/19 Unknown Rx valsartan 160 mg tablet 160 mg PO DAILY 10/16/19 01/16/20 09:30 History 160 MG omeprazole 20 mg capsule,delayed 40 mg PO DAILY 01/14/20 01/16/20 09:30 History release 20 MG insulin lispro 100 unit/mL 1 sliding scale dose subcut 10/20/21 Unknown History subcutaneous solution USEASDIRECTD amlodipine 10 mg tablet 10 mg PO QHS #90 tabs 05/11/22 Unknown Rx metoprolol succinate 50 mg 50 mg PO QHS #90 tabs 05/11/22 Unknown Rx tablet,extended release 24 hr aspirin 81 mg tablet,delayed 81 mg PO DAILY 01/12/23 Unknown History release (Adult Low Dose Aspirin) fenofibrate 54 mg tablet 54 mg PO DAILY #90 tabs 01/12/23 Unknown Rx metformin 500 mg tablet,extended 500 mg PO DAILY 01/12/23 Unknown History release 24 hr morphine 30 mg capsule,extended 15 mg PO BID 01/12/23 Unknown History release 24 hr multiphase tiotropium 2.5 mcg-olodaterol 2.5 2 puff inhalation DAILY 01/12/23 Unknown History mcg/actuation mist for inhalation (Stiolto Respimat) amitriptyline 50 mg tablet 50 mg PO QDAY 01/01/24 Unknown History fesoterodine 4 mg tablet,extended 4 mg PO QDAY 01/01/24 Unknown History release 24 hr albuterol sulfate 90 mcg/actuation 2 puff inhalation Q4H PRN 01/04/24 Unknown History aerosol inhaler shortness of breath or wheezing cholecalciferol (vitamin D3) 25 25 mcg PO DAILY 01/04/24 Unknown History mcg (1,000 unit) capsule (Vitamin D3) diclofenac sodium 1 % topical gel 1 - 2 ea topical DAILY 01/04/24 Unknown History diclofenac sodium 3 % topical gel 1 applic topical BID 01/04/24 Unknown History furosemide 20 mg tablet 20 mg PO DAILY PRN edema 01/04/24 Unknown History ondansetron 4 mg disintegrating 4 mg PO Q6H PRN nausea and vomiting 01/04/24 Unknown History tablet Allergy/AdvReac Type Severity Reaction Status Date / Time ciprofloxacin (From Cipro) Allergy Rash Verified 01/04/24 06:41 ciprofloxacin HCl (From Allergy Rash Verified 01/04/24 06:41 Cipro) dicyclomine Allergy Rash Verified 01/04/24 06:41 erythromycin base (From Allergy Rash Verified 01/04/24 06:41 E-Mycin) ketoprofen (From Oruvail) Allergy Itching Verified 01/04/24 06:41 loratadine (From Claritin) Allergy Rash Verified 01/04/24 06:41 nabumetone (From Relafen) Allergy Rash Verified 01/04/24 06:41 naproxen Allergy Swelling Verified 01/04/24 06:41 Kxpctja-VFO-VwI Reductase Allergy Itching Verified 01/04/24 06:41 Inhibitor (Yxhltiz-Dvg-Mbo Reductase Inhibitor) Family History Father Heart disease Myocardial infarction late 50's Mother Cancer Brother Cancer Sister Lupus Surgical History Ablation to lumbar spine (07/2017) History of tubal ligation History of tonsillectomy and adenoidectomy History of lumpectomy of right breast (2010) History of cholecystectomy History of Social History Smoking Status: Never smoker EXAM <Dr. Wilner Vu DO - Last Filed: 01/04/24 10:52> Physical Exam Const Vital Signs: 01/04/24 06:28 01/04/24 06:37 01/04/24 06:42 Temperature 98.1 F Temperature Source Oral Pulse Rate 56 L Respiratory Rate 18 Respiratory Effort Normal Respiratory Pattern Normal Blood Pressure 184/105 H Blood Pressure Mean 131 Pulse Ox 100 98 Oxygen Delivery Method Room Air Room Air 01/04/24 08:35 01/04/24 10:41 Temperature 97.6 F L Temperature Source Oral Pulse Rate 71 69 Respiratory Rate 16 17 Respiratory Effort Respiratory Pattern Blood Pressure 156/83 H 151/75 H Blood Pressure Mean 107 100 Pulse Ox 97 99 Oxygen Delivery Method Room Air Room Air <Dustin Newton MD - Last Filed: 01/12/24 01:46> Physical Exam Const Vital Signs: 01/04/24 06:28 01/04/24 06:37 01/04/24 06:42 Temperature 98.1 F Temperature Source Oral Pulse Rate 56 L Respiratory Rate 18 Respiratory Effort Normal Respiratory Pattern Normal Blood Pressure 184/105 H Blood Pressure Mean 131 Pulse Ox 100 98 Oxygen Delivery Method Room Air Room Air 01/04/24 08:35 01/04/24 10:41 Temperature 97.6 F L Temperature Source Oral Pulse Rate 71 69 Respiratory Rate 16 17 Respiratory Effort Respiratory Pattern Blood Pressure 156/83 H 151/75 H Blood Pressure Mean 107 100 Pulse Ox 97 99 Oxygen Delivery Method Room Air Room Air MDM <Dr. Wilner Vu DO - Last Filed: 01/04/24 10:52> [facility] Narrative Medical decision making narrative: Care of patient turned over to me awaiting results of delta troponin. Delta troponin was negative. Dr. Molina felt as long as patient's troponin was negative that patient could be discharged to home safely. She had received 5 mg of hydralazine IV and her pressure now 160 over 70s. She has not taken her blood pressure medicine yet normally takes around 10 AM. Clinically she feels well. Dr. Molina did not feel patient was having acute coronary syndrome or TIA or strokelike symptoms. Lab Data Attestation: I reviewed the patient's lab results. Labs: Laboratory Results - last 24 hr 01/04/24 01/04/24 07:10 09:23 WBC 5.0 RBC 4.31 Hgb 13.2 Hct 39.2 MCV 91.0 MCH 30.6 MCHC 33.7 RDW Std Deviation 42.6 RDW Coeff of [place] 12.9 Plt Count 132 L MPV 11.9 Immature Gran % (Auto) 0.600 Neut % (Auto) 63.8 Lymph % (Auto) 23.0 [place] % (Auto) 11.0 H Eos % (Auto) 1.2 Baso % (Auto) 0.4 Absolute Neuts (auto) 3.2 Absolute Lymphs (auto) 1.15 Nucleated RBC % 0 Sodium 143 Potassium 3.8 Chloride 111 H Carbon Dioxide 26.0 Anion Gap 6 BUN 24 H Creatinine 0.86 Estim Creat Clear Calc 62.46 Est GFR (MDRD) Af Amer 83 Est GFR (MDRD) Non-Af 69 BUN/Creatinine Ratio 27.9 H Glucose 143 H Calcium 9.5 Troponin I High Sens 6 7 Radiography Diagnostic Testing: Clinical Impression(s) from Imaging Studies Chest X-Ray 01/04/24 06:37 IMPRESSION: No acute pulmonary abnormality. Electronically Signed: Flavio Robertson MD at 8:14 EST , <Dustin Newton MD - Last Filed: 01/12/24 01:46> [facility] Narrative Medical decision making narrative: Care of patient turned over to me awaiting results of delta troponin. Delta troponin was negative. Dr. Newton felt as long as patient's troponin was negative that patient could be discharged to home safely. She had received 5 mg of hydralazine IV and her pressure now 160 over 70s. She has not taken her blood pressure medicine yet normally takes around 10 AM. Clinically she feels well. Dr. Newton did not feel patient was having acute coronary syndrome or TIA or strokelike symptoms. Lab Data Labs: Laboratory Results - last 24 hr 01/04/24 01/04/24 07:10 09:23 WBC 5.0 RBC 4.31 Hgb 13.2 Hct 39.2 MCV 91.0 MCH 30.6 MCHC 33.7 RDW Std Deviation 42.6 RDW Coeff of [place] 12.9 Plt Count 132 L MPV 11.9 Immature Gran % (Auto) 0.600 Neut % (Auto) 63.8 Lymph % (Auto) 23.0 [place] % (Auto) 11.0 H Eos % (Auto) 1.2 Baso % (Auto) 0.4 Absolute Neuts (auto) 3.2 Absolute Lymphs (auto) 1.15 Nucleated RBC % 0 Sodium 143 Potassium 3.8 Chloride 111 H Carbon Dioxide 26.0 Anion Gap 6 BUN 24 H Creatinine 0.86 Estim Creat Clear Calc 62.46 Est GFR (MDRD) Af Amer 83 Est GFR (MDRD) Non-Af 69 BUN/Creatinine Ratio 27.9 H Glucose 143 H Calcium 9.5 Troponin I High Sens 6 7 Radiography Diagnostic Testing: Clinical Impression(s) from Imaging Studies Chest X-Ray 01/04/24 06:37 IMPRESSION: No acute pulmonary abnormality. Electronically Signed: Flavio Robertson MD at 8:14 EST , Discharge Plan Triage Chief Complaint: Hypertension ED Provider: Dustin Newton Dx/Rx/DC Orders Clinical Impression: Hypertension, Paresthesia of left arm Instructions: Hypertension Dc, ED Paraesthesias Prescriptions: No Action morphine 30 mg capsule, ER multiphase 24 hr 15 mg PO BID valsartan 160 mg tablet 160 mg PO DAILY Patient Comments: TAKE 1 TABLET BY MOUTH EVERY DAY hydroxychloroquine 200 mg tablet 200 mg PO DAILY magnesium oxide 400 mg magnesium tablet 400 mg PO DAILY Qty: 90 4RF insulin lispro 100 unit/mL solution 1 sliding scale dose subcut USEASDIRECTD aspirin [Adult Low Dose Aspirin] 81 mg tablet,delayed release (DR/EC) 81 mg PO DAILY Stiolto Respimat 2.5-2.5 mcg/actuation mist 2 puff inhalation DAILY amitriptyline 50 mg tablet 50 mg PO QDAY fesoterodine 4 mg tablet extended release 24 hr 4 mg PO QDAY metformin 500 mg tablet extended release 24 hr 500 mg PO DAILY Patient Comments: DIABETES cyanocobalamin (vitamin B-12) 2,000 MCG tablet 1,000 mcg PO DAILY acetaminophen 500 MG tablet 1,000 mg PO TID PRN (Reason: Pain 1-10 Or Fever) folic acid 0.8 MG tablet 800 mg PO DAILY omega-3 fatty acids-fish oil 1 EACH capsule 1 ea PO QHS omeprazole 20 MG capsule 40 mg PO DAILY cholecalciferol (vitamin D3) [Vitamin D3] 25 mcg (1,000 unit) capsule 25 mcg PO DAILY albuterol sulfate 90 mcg/actuation HFA aerosol inhaler 2 puff inhalation Q4H PRN (Reason: shortness of breath or wheezing) diclofenac sodium 1 % gel 1 - 2 ea topical DAILY diclofenac sodium 3 % gel 1 applic topical BID furosemide 20 mg tablet 20 mg PO DAILY PRN (Reason: edema) ondansetron 4 mg tablet,disintegrating 4 mg PO Q6H PRN (Reason: nausea and vomiting) amlodipine 10 mg tablet 10 mg PO QHS Qty: 90 3RF metoprolol succinate 50 mg tablet extended release 24 hr 50 mg PO QHS Qty: 90 3RF fenofibrate 54 mg tablet 54 mg PO DAILY Qty: 90 3RF Primary Care Provider: Yasemin Carney Referrals: Yasemin Carney MD [Primary Care Provider] - Print Language: Icelandic Disposition Disposition: Home, Self Care Discharge Date/Time: 01/04/24 11:15
== END 2024-01-04 11:15 | disposition home or self-care (01) ==
PROVIDERS: Emergency Medicine; Emergency Provider Emergency Medicine; PCP Internal Medicine; Visit Provider Emergency Medicine
DX: I13.0 Hypertensive heart and chronic kidney disease with heart failure and stage 1 through stage 4 chronic kidney disease, or unspecified chronic kidney disease (principal); M06.9 Rheumatoid arthritis, unspecified; I50.32 Chronic diastolic (congestive) heart failure; J44.9 Chronic obstructive pulmonary disease, unspecified; E11.22 Type 2 diabetes mellitus with diabetic chronic kidney disease; Z79.4 Long term (current) use of insulin; N18.30 Chronic kidney disease, stage 3 unspecified; R20.0 Anesthesia of skin; R20.2 Paresthesia of skin; E78.5 Hyperlipidemia, unspecified; G89.29 Other chronic pain; M54.50 Low back pain, unspecified; G47.33 Obstructive sleep apnea (adult) (pediatric); Z79.82 Long term (current) use of aspirin; Z79.84 Long term (current) use of oral hypoglycemic drugs; Z79.899 Other long term (current) drug therapy
CPT/HCPCS: 36591; 71045; 80048; 84484; 85025; 93005; 96374; 99285; A4216

== ENCOUNTER → 2024-01-15 | Outpatient (CLI) | payer MEDICARE, SELFPAY ==
[2024-01-15 18:11] LABS: Absolute Neutrophil Count 3.2 X10^3/uL (2.0-7.7); Basophil# 0.04 X10^3/uL; Basophil% 0.8 % (0-1); Eosinophil# 0.13 X10^3/uL; Eosinophils% 2.5 % (0-5); Hematocrit 39.1 % (37-47); Hemoglobin 12.9 g/dL (12.0-15.0); Lymphocyte % 21.3 % (19-41); Mean Corpuscular Hgb 30.6 pg (27.0-32.0); Mean Corpuscular Volume 92.9 fL (81-99); Mean Platelet Vol. 11.8 fl (6.2-12.0); Monocyte# 0.62 X10^3/uL; NRBC Flagged by Analyzer 0 % (0-5); Neutrophil # 3.23 X10^3/uL (2.7-7.7); Neutrophil % 62.4 % (47-70); Platelet Count 168 K/mm3 (150-450); RBC Distribution Width CV 13.2 % (11.6-14.6); Red Blood Count 4.21 M/mm3 (4.2-5.4); White Blood Count 5.2 K/mm3 (4.4-11.0)
[2024-01-15 19:00] LABS: Vitamin D,25 Hydroxy 23.5 ng/mL
[2024-01-15 19:27] LABS: AST(SGOT) 53 U/L (15-37); Alanine Aminotransfer ALT/SGPT 56 U/L (13-56); Albumin, Serum 3.2 g/dL (3.2-5.0); Alkaline Phosphatase 99 U/L (45-117); Anion Gap 3 (5-15); BUN 23 mg/dL (7-18); BUN/Creat Ratio 21.5 RATIO (10-20); Calcium,Total 10.2 mg/dL (8.5-10.1); Chloride 108 mmol/L (98-107); Creatinine, Serum 1.07 mg/dL (0.55-1.02); EST Glomerular Filtration Rate 53 mL/min (>60); Est Glom Filt Rate - Afr Amer 64 mL/min (>60); Globulin 3.2 g/dL (2.2-4.2); Glucose 116 mg/dL (74-106); Potassium 4.1 mmol/L (3.5-5.1); Protein, Total 6.4 g/dL (6.4-8.2); Sodium Level 140 mmol/L (136-145)
[2024-01-16 10:46] LABS: PTHIN 95.3 pg/mL (18.4-80.1)
== END | disposition home or self-care (01) ==
LOC: MTLAB 15:38
PROVIDERS: Nurse Practitioner Gerontology; Physician Assistant Medical; PCP Internal Medicine; Referring Provider Internal Medicine Rheumatology; Visit Provider Internal Medicine Rheumatology
DX: M06.9 Rheumatoid arthritis, unspecified (principal); M79.7 Fibromyalgia; M15.9 Polyosteoarthritis, unspecified; Z79.899 Other long term (current) drug therapy; R53.83 Other fatigue; E55.9 Vitamin D deficiency, unspecified
CPT/HCPCS: 36415; 80053; 82306; 83970; 84443; 85025

== ENCOUNTER 2024-03-09 12:38 | Emergency (ER) | payer MEDICARE, SELFPAY ==
[2024-03-09 12:39] VITALS: BP 158/74; PULSE 88; RESP 16; TEMP 37.7; O2SAT 98
--- NOTE | 2024-03-09 13:09 | EX.ED.DYSGE1 ---
HPI <VALERI Garcia - Last Filed: 03/09/24 18:19> History of Present Illness Chief Complaint: Diarrhea Narrative Narrative: 73-year-old female with PMH of HTN, GERD, remote colon cancer s/p resection and chemotherapy, chronic back pain states last night after dinner she felt nauseated and this morning around 6 AM she had a large loose bowel movement. She is concerned she could have C. difficile as she had it about 2 years ago. She has only had 1 episode of nonbloody diarrhea. No fever, chills, or abdominal pain. She has not tried eating or drinking today. She takes p.o. morphine twice daily for chronic back pain but states she was worried about throwing up her medication so she did not try it. PFSH <VALERI Garcia - Last Filed: 03/09/24 18:19> PFSH Medical History Adverse effect of COVID-19 vaccine Colon cancer COPD (chronic obstructive pulmonary disease) Breast cancer Chronic diastolic (congestive) heart failure Hyperlipidemia Chronic low back pain Rheumatoid arthritis Obstructive sleep apnea syndrome Fibromyalgia Gastroesophageal reflux disease Morbid obesity Essential hypertension Type 2 diabetes mellitus CKD (chronic kidney disease), stage III Home Medications ?Medication ?Instructions ?Recorded ?Last Taken ?Type cyanocobalamin (vitamin B-12) 1,000 mcg PO DAILY 09/02/15 Unknown History 2,000 mcg tablet acetaminophen 500 mg tablet 1,000 mg PO TID PRN Pain 1-10 Or 10/29/15 Unknown History Fever folic acid 800 mcg tablet 800 mg PO DAILY 05/23/17 Unknown History omega-3 fatty acids-fish oil 340 1 ea PO QHS 05/23/17 05/20/17 History mg-1,000 mg capsule hydroxychloroquine 200 mg tablet 200 mg PO DAILY 10/16/19 Unknown History magnesium oxide 400 mg PO DAILY #90 tabs 10/16/19 Unknown Rx valsartan 160 mg tablet 160 mg PO DAILY 10/16/19 01/16/20 09:30 History 160 MG omeprazole 20 mg capsule,delayed 40 mg PO DAILY 01/14/20 01/16/20 09:30 History release 20 MG insulin lispro 100 unit/mL 1 sliding scale dose subcut 10/20/21 Unknown History subcutaneous solution USEASDIRECTD amlodipine 10 mg tablet 10 mg PO QHS #90 tabs 05/11/22 Unknown Rx metoprolol succinate 50 mg 50 mg PO QHS #90 tabs 05/11/22 Unknown Rx tablet,extended release 24 hr aspirin 81 mg tablet,delayed 81 mg PO DAILY 01/12/23 Unknown History release (Adult Low Dose Aspirin) fenofibrate 54 mg tablet 54 mg PO DAILY #90 tabs 01/12/23 Unknown Rx metformin 500 mg tablet,extended 500 mg PO DAILY 01/12/23 Unknown History release 24 hr morphine 30 mg capsule,extended 15 mg PO BID 01/12/23 Unknown History release 24 hr multiphase tiotropium 2.5 mcg-olodaterol 2.5 2 puff inhalation DAILY 01/12/23 Unknown History mcg/actuation mist for inhalation (Stiolto Respimat) amitriptyline 50 mg tablet 50 mg PO QDAY 01/01/24 Unknown History fesoterodine 4 mg tablet,extended 4 mg PO QDAY 01/01/24 Unknown History release 24 hr albuterol sulfate 90 mcg/actuation 2 puff inhalation Q4H PRN 01/04/24 Unknown History aerosol inhaler shortness of breath or wheezing cholecalciferol (vitamin D3) 25 25 mcg PO DAILY 01/04/24 Unknown History mcg (1,000 unit) capsule (Vitamin D3) diclofenac sodium 1 % topical gel 1 - 2 ea topical DAILY 01/04/24 Unknown History diclofenac sodium 3 % topical gel 1 applic topical BID 01/04/24 Unknown History furosemide 20 mg tablet 20 mg PO DAILY PRN edema 01/04/24 Unknown History ondansetron 4 mg disintegrating 4 mg PO Q8H PRN PRN Nausea #12 tabs 03/09/24 Unknown Rx tablet vancomycin 125 mg capsule 125 mg PO Q6H 10 days #40 caps 03/09/24 Unknown Rx (Vancocin) Allergy/AdvReac Type Severity Reaction Status Date / Time ciprofloxacin (From Cipro) Allergy Rash Verified 03/09/24 12:43 ciprofloxacin HCl (From Allergy Rash Verified 03/09/24 12:43 Cipro) dicyclomine Allergy Rash Verified 03/09/24 12:43 erythromycin base (From Allergy Rash Verified 03/09/24 12:43 E-Mycin) ketoprofen (From Oruvail) Allergy Itching Verified 03/09/24 12:43 loratadine (From Claritin) Allergy Rash Verified 03/09/24 12:43 nabumetone (From Relafen) Allergy Rash Verified 03/09/24 12:43 naproxen Allergy Swelling Verified 03/09/24 12:43 [id number]-DEV-[id number] Reductase Allergy Itching Verified 03/09/24 12:43 Inhibitor (Ayljikj-Gnj-Xtw Reductase Inhibitor) Family History Father Heart disease Myocardial infarction late 50's Mother Cancer Brother Cancer Sister Lupus Surgical History Ablation to lumbar spine (07/2017) History of tubal ligation History of tonsillectomy and adenoidectomy History of lumpectomy of right breast (2010) History of cholecystectomy History of Social History Smoking Status: Never smoker ROS <VALERI Garcia - Last Filed: 03/09/24 18:19> ROS ED ROS Narrative Constitutional: Negative for fever, chills, malaise. CVS: Negative for chest pain, syncope. Respiratory: Negative for shortness of breath, cough. GI: Positive for nausea, diarrhea. Negative for abdominal pain, vomiting, constipation, melena, hematochezia. : Negative for dysuria, hematuria or frequency. EXAM <VALERI Garcia - Last Filed: 03/09/24 18:19> Physical Exam Narrative Exam Narrative: CONST: Patient sitting in no acute distress. EYES: Normal inspection. ENT: Normal inspection, moist mucous membranes. NECK: Normal inspection. RESP: No respiratory distress, CTAB. CVS: Regular rate and rhythm, no murmur, no gallop. ABD: Soft and nontender, no guarding or rebound, nondistended. SKIN: Color normal, no rash, warm, dry, intact. EXTREMITIES: Normal appearance, no pedal edema. NEURO: Alert and answering questions appropriately. PSYCH: Normal affect. Const Vital Signs: 03/09/24 12:39 03/09/24 15:00 Temperature 99.9 F H Temperature Source Oral Pulse Rate 88 77 Respiratory Rate 16 18 Blood Pressure 158/74 H Blood Pressure Mean 102 Pulse Ox 98 97 Oxygen Delivery Method Room Air <Dr. Luis Angel Haynes DO - Last Filed: 03/09/24 22:02> Physical Exam Const Vital Signs: 03/09/24 12:39 03/09/24 15:00 Temperature 99.9 F H Temperature Source Oral Pulse Rate 88 77 Respiratory Rate 16 18 Blood Pressure 158/74 H Blood Pressure Mean 102 Pulse Ox 98 97 Oxygen Delivery Method Room Air MDM <VALERI Garcia - Last Filed: 03/09/24 18:19> [facility] Narrative Medical decision making narrative: History gathered from: Patient and her daughter Differential: Viral illness, C. difficile, less likely diverticulitis without pain 73-year-old female presents with nausea that started last night and 1 large episode of nonbloody diarrhea this morning. She denies fever, chills, abdominal pain. She is concerned about the diarrhea because she has had C. difficile in the past. She has had no recent risk factors for C. difficile. She is awake alert in no distress. Afebrile with stable vital signs. She has a benign exam and a soft, nontender abdomen. CBC and CMP are unremarkable. Stool sample is positive for C. difficile. Based on her vital signs and normal blood work and ability to tolerate p.o. intake she is appropriate for outpatient management with p.o. vancomycin. She states she has Zofran at home. I discussed return precautions and she was discharged in stable condition. Lab Data Attestation: I reviewed the patient's lab results. Labs: Laboratory Results - last 24 hr 03/09/24 13:30 WBC 6.0 RBC 4.05 L Hgb 12.3 Hct 37.4 MCV 92.3 MCH 30.4 MCHC 32.9 RDW Std Deviation 44.4 H RDW Coeff of Julianna 13.2 Plt Count 115 L MPV 11.3 Immature Gran % (Auto) 0.500 Neut % (Auto) 86.5 H Lymph % (Auto) 4.8 L Sampson % (Auto) 7.8 Eos % (Auto) 0.2 Baso % (Auto) 0.2 Absolute Neuts (auto) 5.2 Absolute Lymphs (auto) 0.29 L Nucleated RBC % 0 Sodium 141 Potassium 3.8 Chloride 112 H Carbon Dioxide 23.0 Anion Gap 6 BUN 22 H Creatinine 0.81 Est GFR (MDRD) Af Amer 88 Est GFR (MDRD) Non-Af 73 BUN/Creatinine Ratio 27.0 H Glucose 135 H Calcium 8.5 Total Bilirubin 0.40 AST 57 H ALT 45 Alkaline Phosphatase 85 Total Protein 5.7 L Albumin 2.7 L Globulin 3.0 Albumin/Globulin Ratio 0.9 <Dr. Luis Angel Haynes, DO - Last Filed: 03/09/24 22:02> [facility] Lab Data Labs: Laboratory Results - last 24 hr 03/09/24 13:30 WBC 6.0 RBC 4.05 L Hgb 12.3 Hct 37.4 MCV 92.3 MCH 30.4 MCHC 32.9 RDW Std Deviation 44.4 H RDW Coeff of Julianna 13.2 Plt Count 115 L MPV 11.3 Immature Gran % (Auto) 0.500 Neut % (Auto) 86.5 H Lymph % (Auto) 4.8 L Sampson % (Auto) 7.8 Eos % (Auto) 0.2 Baso % (Auto) 0.2 Absolute Neuts (auto) 5.2 Absolute Lymphs (auto) 0.29 L Nucleated RBC % 0 Sodium 141 Potassium 3.8 Chloride 112 H Carbon Dioxide 23.0 Anion Gap 6 BUN 22 H Creatinine 0.81 Est GFR (MDRD) Af Amer 88 Est GFR (MDRD) Non-Af 73 BUN/Creatinine Ratio 27.0 H Glucose 135 H Calcium 8.5 Total Bilirubin 0.40 AST 57 H ALT 45 Alkaline Phosphatase 85 Total Protein 5.7 L Albumin 2.7 L Globulin 3.0 Albumin/Globulin Ratio 0.9 Treatment and Re-Evaluation :: I have personally performed a face to face assessment of the patient and have reviewed the BOAZ Note. I performed a substantive portion of the visit including all aspects of the following. My mae findings include: History: Patient presents with diarrhea that began today. Patient states she had 1 episode of watery diarrhea. Patient states it was foul-smelling. Patient states it was similar to symptoms she had with C. difficile in the past. Patient denies any recent antibiotic use. Patient denies any abdominal pain. Patient denies any fevers or chills. Patient denies any recent hospitalization. Exam: Vital signs are stable. Patient is afebrile. Patient is in no acute distress. Oral mucosa is pink and moist. Neck is supple. Trachea is midline. There is no JVD noted. Heart was regular rate and rhythm. Lungs are clear and equal bilaterally. Abdomen is soft. Bowel sounds are normal. There is no tenderness. There is no rebound or guarding noted. Cranial nerves II through XII are intact. There are no focal motor or sensory deficits noted. Medical Decision Making: Differential diagnosis includes C. difficile colitis, dehydration, electrolyte abnormality, and viral illness. CBC will be obtained to assess for leukocytosis and anemia. Comprehensive metabolic profile will be obtained to assess for electrolyte abnormality, hepatic function, and renal function. C. difficile will be obtained to assess for C. difficile colitis. Patient was given Zofran. CBC was reviewed and showed a mild thrombocytopenia of 115. The remainder is within normal limits. Comprehensive metabolic profile was reviewed. BUN was slightly elevated at 22. Glucose slightly elevated at 135. The remainder was essentially within normal limits. C. difficile toxin was reviewed and was positive. Patient was advised of her findings. Patient was given prescriptions for oral vancomycin and Zofran. Patient was instructed to drink plenty of fluids. Patient was instructed to follow-up with her primary care physician in 5 to 7 days. Patient understood and was agreeable with the plan. All questions were answered. Discharge Plan Triage Chief Complaint: Diarrhea ED Midlevel Provider: Meghan Velez ED Provider: Luis Angel Haynes Dx/Rx/DC Orders Clinical Impression: C. difficile diarrhea, Nausea Instructions: Clostridium Difficile Infection Prescriptions: New vancomycin [Vancocin] 125 mg capsule 125 mg PO Q6H 10 Days Qty: 40 0RF ondansetron 4 mg tablet,disintegrating 4 mg PO Q8H PRN PRN (Reason: Nausea) Qty: 12 0RF Discontinued ondansetron 4 mg tablet,disintegrating 4 mg PO Q6H PRN (Reason: nausea and vomiting) No Action morphine 30 mg capsule, ER multiphase 24 hr 15 mg PO BID valsartan 160 mg tablet 160 mg PO DAILY Patient Comments: TAKE 1 TABLET BY MOUTH EVERY DAY hydroxychloroquine 200 mg tablet 200 mg PO DAILY magnesium oxide 400 mg magnesium tablet 400 mg PO DAILY Qty: 90 4RF insulin lispro 100 unit/mL solution 1 sliding scale dose subcut USEASDIRECTD aspirin [Adult Low Dose Aspirin] 81 mg tablet,delayed release (DR/EC) 81 mg PO DAILY Stiolto Respimat 2.5-2.5 mcg/actuation mist 2 puff inhalation DAILY amitriptyline 50 mg tablet 50 mg PO QDAY fesoterodine 4 mg tablet extended release 24 hr 4 mg PO QDAY metformin 500 mg tablet extended release 24 hr 500 mg PO DAILY Patient Comments: DIABETES cyanocobalamin (vitamin B-12) 2,000 MCG tablet 1,000 mcg PO DAILY acetaminophen 500 MG tablet 1,000 mg PO TID PRN (Reason: Pain 1-10 Or Fever) folic acid 0.8 MG tablet 800 mg PO DAILY omega-3 fatty acids-fish oil 1 EACH capsule 1 ea PO QHS omeprazole 20 MG capsule 40 mg PO DAILY cholecalciferol (vitamin D3) [Vitamin D3] 25 mcg (1,000 unit) capsule 25 mcg PO DAILY albuterol sulfate 90 mcg/actuation HFA aerosol inhaler 2 puff inhalation Q4H PRN (Reason: shortness of breath or wheezing) diclofenac sodium 1 % gel 1 - 2 ea topical DAILY diclofenac sodium 3 % gel 1 applic topical BID furosemide 20 mg tablet 20 mg PO DAILY PRN (Reason: edema) amlodipine 10 mg tablet 10 mg PO QHS Qty: 90 3RF metoprolol succinate 50 mg tablet extended release 24 hr 50 mg PO QHS Qty: 90 3RF fenofibrate 54 mg tablet 54 mg PO DAILY Qty: 90 3RF Primary Care Provider: Yasemin Carney Referrals: Yasemin Carney MD [Primary Care Provider] - Activity Restrictions/Additional Instructions: Your stool is positive for C. difficile. Please take all of the antibiotics as instructed. I prescribed Zofran as needed for nausea and vomiting. Follow-up with your PCP or GI doctor. If symptoms worsen or you develop a fever, are unable to keep down your medication, have severe abdominal pain, or blood in your bowel movements please come back to the ER. Print Language: Gambian Disposition Disposition: Home, Self Care
[2024-03-09 13:38] LABS: Absolute Lymphocyte Count 0.29 X10^3/uL (0.83-4.51); Absolute Neutrophil Count 5.2 X10^3/uL (2.0-7.7); Basophil# 0.01 X10^3/uL; Basophil% 0.2 % (0-1); Eosinophil# 0.01 X10^3/uL; Eosinophils% 0.2 % (0-5); Hematocrit 37.4 % (37-47); Hemoglobin 12.3 g/dL (12.0-15.0); Lymphocyte # 0.29 X10^3/ul (0.83-4.51); Lymphocyte % 4.8 % (19-41); Mean Corp Hgb Conc 32.9 g/dL (32-36); Mean Corpuscular Hgb 30.4 pg (27.0-32.0); Mean Corpuscular Volume 92.3 fL (81-99); Mean Platelet Vol. 11.3 fl (6.2-12.0); Monocyte# 0.47 X10^3/uL; Monocyte% 7.8 % (0-10); NRBC Flagged by Analyzer 0 % (0-5); Neutrophil # 5.19 X10^3/uL (2.7-7.7); Neutrophil % 86.5 % (47-70); POSITIVE DIFFERENTIAL YES; Platelet Count 115 K/mm3 (150-450); RBC Distribution Width CV 13.2 % (11.6-14.6); RBC Distribution Width SD 44.4 fl (35.1-43.9); Red Blood Count 4.05 M/mm3 (4.2-5.4)
[2024-03-09 13:53] LABS: ALB/GLOB Ratio 0.9 RATIO (0.9-2.4); AST(SGOT) 57 U/L (15-37); Alanine Aminotransfer ALT/SGPT 45 U/L (13-56); Albumin, Serum 2.7 g/dL (3.2-5.0); Alkaline Phosphatase 85 U/L (45-117); Anion Gap 6 (5-15); BUN 22 mg/dL (7-18); Calcium,Total 8.5 mg/dL (8.5-10.1); Chloride 112 mmol/L (98-107); Creatinine, Serum 0.81 mg/dL (0.55-1.02); EST Glomerular Filtration Rate 73 mL/min (>60); Est Glom Filt Rate - Afr Amer 88 mL/min (>60); Glucose 135 mg/dL (74-106); Potassium 3.8 mmol/L (3.5-5.1); Protein, Total 5.7 g/dL (6.4-8.2); Sodium Level 141 mmol/L (136-145)
[2024-03-09] MEDS: Ondansetron 4 MG/2 ML Vial IV (14:06)
[2024-03-09 15:00] VITALS: PULSE 77; RESP 18; O2SAT 97
[2024-03-09] MEDS: 0.9% Saline Lock 10 ML Syringe IV (16:05)
== END 2024-03-09 16:23 | disposition home or self-care (01) ==
PROVIDERS: Physician Assistant; Emergency Provider Emergency Medicine; PCP Internal Medicine; Visit Provider Emergency Medicine
DX: A04.71 Enterocolitis due to Clostridium difficile, recurrent (principal); M06.9 Rheumatoid arthritis, unspecified; I50.32 Chronic diastolic (congestive) heart failure; I13.0 Hypertensive heart and chronic kidney disease with heart failure and stage 1 through stage 4 chronic kidney disease, or unspecified chronic kidney disease; J44.9 Chronic obstructive pulmonary disease, unspecified; E11.22 Type 2 diabetes mellitus with diabetic chronic kidney disease; E11.65 Type 2 diabetes mellitus with hyperglycemia; N18.30 Chronic kidney disease, stage 3 unspecified; M54.50 Low back pain, unspecified; G89.29 Other chronic pain; E78.5 Hyperlipidemia, unspecified; G47.33 Obstructive sleep apnea (adult) (pediatric); Z79.82 Long term (current) use of aspirin; Z79.84 Long term (current) use of oral hypoglycemic drugs; Z79.899 Other long term (current) drug therapy; Z92.21 Personal history of antineoplastic chemotherapy; Z85.038 Personal history of other malignant neoplasm of large intestine
CPT/HCPCS: 36591; 80053; 85025; 87493; 96374; 99284; A4216; J2405

== ENCOUNTER → 2024-05-26 | Outpatient (CLI) | payer MEDICARE, SELFPAY ==
[2024-05-26 21:25] LABS: Amphetamine Urine NEGATIVE (<1000 ng/mL); Barbiturate Urine NEGATIVE (< 200 ng/mL); Benzodiazepine Urine NEGATIVE (< 200 ng/mL); Buprenorphine Urine NEGATIVE (< 200 ng/mL); Cocaine Urine NEGATIVE (< 300 ng/mL); Fentanyl, Urine NEGATIVE; Methadone Urine NEGATIVE (< 300 ng/mL); Opiates Urine PRESUMPTIVE POSITIVE (< 300 ng/mL); Oxycodone, Urine NEGATIVE (< 100 ng/mL); PCP Urine NEGATIVE (< 25 ng/mL); THC Urine NEGATIVE (< 50 ng/mL)
== END | disposition home or self-care (01) ==
LOC: LAB 13:35
PROVIDERS: PCP Internal Medicine; Referring Provider Anesthesiology Pain Medicine; Visit Provider Anesthesiology Pain Medicine
DX: F11.20 Opioid dependence, uncomplicated (principal)
CPT/HCPCS: 80307

== ENCOUNTER → 2024-07-07 | Outpatient (CLI) | payer MEDICARE, SELFPAY ==
[2024-07-07 18:02] LABS: Absolute Lymphocyte Count 1.74 X10^3/uL (0.83-4.51); Basophil# 0.03 X10^3/uL; Basophil% 0.4 % (0-1); Eosinophil# 0.07 X10^3/uL; Eosinophils% 0.9 % (0-5); Hematocrit 40.4 % (37-47); Hemoglobin 13.6 g/dL (12.0-15.0); Lymphocyte # 1.74 X10^3/ul (0.83-4.51); Lymphocyte % 22.8 % (19-41); Mean Corp Hgb Conc 33.7 g/dL (32-36); Mean Corpuscular Hgb 30.6 pg (27.0-32.0); Monocyte# 0.78 X10^3/uL; Monocyte% 10.2 % (0-10); NRBC Flagged by Analyzer 0 % (0-5); Neutrophil # 4.96 X10^3/uL (2.7-7.7); Neutrophil % 65.2 % (47-70); Platelet Count 184 K/mm3 (150-450); RBC Distribution Width CV 12.6 % (11.6-14.6); RBC Distribution Width SD 41.9 fl (35.1-43.9); Red Blood Count 4.44 M/mm3 (4.2-5.4); White Blood Count 7.6 K/mm3 (4.4-11.0)
[2024-07-07 18:48] LABS: Hemoglobin A1c 6.3 % (<=5.6)
[2024-07-07 18:50] LABS: ALB/GLOB Ratio 1.5 RATIO (0.9-2.4); AST(SGOT) 28 U/L (<=31); Alanine Aminotransfer ALT/SGPT 21 U/L (<=34); Alkaline Phosphatase 91 U/L (35-104); Anion Gap 8 (5-15); BUN 29 mg/dL (4-19); BUN/Creat Ratio 24.1 RATIO (10-20); Calcium,Total 10.1 mg/dL (7.6-11.0); Carbon Dioxide 29.2 mmol/L (21.0-32.0); Chloride 101 mmol/L (98-108); EST Glomerular Filtration Rate 47 (>60); Globulin 2.6 g/dL (2.2-4.2); Glucose 93 mg/dL (70-99); Potassium 4.6 mmol/L (3.3-5.1); Protein, Total 6.5 g/dL (5.9-8.4); Sodium Level 138 mmol/L (133-145); Total Bilirubin 0.37 mg/dL (0.00-1.30)
== END | disposition home or self-care (01) ==
PROVIDERS: PCP Internal Medicine; Referring Provider Nurse Practitioner; Visit Provider Nurse Practitioner
DX: M06.09 Rheumatoid arthritis without rheumatoid factor, multiple sites (principal); E11.40 Type 2 diabetes mellitus with diabetic neuropathy, unspecified; Z79.4 Long term (current) use of insulin; Z79.899 Other long term (current) drug therapy
CPT/HCPCS: 36415; 80053; 83036; 85025

== ENCOUNTER 2024-12-27 01:39 | Emergency (ER) | payer MEDICARE, SELFPAY ==
[2024-12-27] VITALS (14 sets, daily range): BP systolic 107–167; BP diastolic 59–100; PULSE 77–97; RESP 15–29; TEMP 36.6–37.5; O2SAT 92–98; BMI 37.9
--- NOTE | 2024-12-27 02:03 | EKG12_ITS ---
Test Reason : CP Blood Pressure : */* mmHG Vent. Rate : 97 BPM Atrial Rate : 97 BPM P-R Int : 188 ms QRS Dur : 92 ms QT Int : 348 ms P-R-T Axes : 57 39 53 degrees QTcB Int : 441 ms Normal sinus rhythm Nonspecific ST abnormality Abnormal ECG Confirmed by BEE HAMILTON, VINCENT ([id number]), editorial director JULIA MAY ([id number]) on 12/29/2024 1:36:46 PM Referred By: RASHAAD Confirmed By: VINCENT GAMBOA MD
--- NOTE | 2024-12-27 02:12 | RAD_ITS ---
PROCEDURE: CHEST 1 VIEW (PORTABLE) 12/27/2024 REASON FOR EXAM: CHEST PAIN TECHNIQUE: Frontal view of the chest. COMPARISON: 12-25 [facility] UPRIGHT PORTABLE CHEST RADIOGRAPH FINDINGS: Hardware: THERE ARE EKG LEADS PROJECTED AT THE ANTERIOR CHEST. Heart: Cardiac and mediastinal contours are stable. Lungs: No significant change in the appearance of the lungs. Bones: The bones are unremarkable. Other: There are vascular clips at the left axilla. RAD/Chest 1 View (Portable) IMPRESSION: Negative Chest. Reading Location: [id number]
[2024-12-27 02:15] LABS: Hematocrit 38.1 % (37-47); Hemoglobin 12.5 g/dL (12.0-15.0); Immature Granulocytes Count 0.050 X10^3/uL (0.0-0.0); Mean Corp Hgb Conc 32.8 g/dL (32-36); Mean Corpuscular Volume 90.9 fL (81-99); Mean Platelet Vol. 10.5 fl (6.2-12.0); NRBC Flagged by Analyzer 0 % (0-5); Platelet Count 221 K/mm3 (150-450); RBC Distribution Width CV 12.6 % (11.6-14.6); RBC Distribution Width SD 41.6 fl (35.1-43.9); Red Blood Count 4.19 M/mm3 (4.2-5.4); White Blood Count 11.7 K/mm3 (4.4-11.0)
[2024-12-27 02:35] LABS: D-Dimer Quantitative (DVT/PE) 1.14 FEU/ug/m (0.27-0.49)
--- OUTSIDE RECORDS SUMMARY | 2024-12-27 02:35 | XMS RPT_ITS | CCD ---
Author Organization [facility] CliniSyde Care Team Providers Care Informaticist Name Role Phone PRIETO WASHINGTON Unavailable Unavailable PRIETO WASHINGTON Unavailable Unavailable Yasemin Connors MD Primary Care Provider Alta RN, Rina Unavailable Unavailable Yasemin Connors MD Primary Care Provider Alta RN, Rina Unavailable Unavailable Yasemin Connors MD Primary Care Provider Dolisa RN, Rina Unavailable Unavailable Rachid RN, Leann Unavailable Unavailable YASEMIN CONNORS Primary Care Unavailable SUSY GOMEZADDHA Admitting Unavailable PATRICIA REJI Attending Unavailable VENTURA SCOTT Consulting Unavailable Yasemin Connors MD Primary Care Provider Alta RN, Rina Unavailable Unavailable Rachel CASH ANALYST.Geneva ARAGON Unavailable Dr. Yasemin Connors Primary Care Provider Dr. Yasemin Connors Referring Provider Guy VAZQUEZ, ABHISHEK Fernandez Attending Provider Yasemin Connors MD Primary Care Provider Older CASH ANALYST.MARGO Estefani Unavailable Leslye Galindo PA-C Unavailable Older CASH ANALYST.MARGO Estefani Unavailable Lisa Henderson PA-C Unavailable Dr. Yasemin Connors MD Primary Care Provider Dr. Luis Angel Haynes DO Attending Provider Dr. Luis Angel Haynes DO Emergency Provider Autumn HAMILTON Dr. Lomas Attending Provider Autumn HAMILTON, Dr. Lomas Referring Provider Josie QUIROZ, Leslye Casey Unavailable [phone] Lisa Henderson PA-C Unavailable Waylon HAMILTON, Dr. Hazel Primary Care Provider OLDER FITTER TACKER-C, ESTEFANI Attending Provider OLDER FITTER TACKER-C, ESTEFANI Referring Provider Felipe HAMILTON, Dr. Sullivan Other Provider OLDER, ESTEFANI Referring Unavailable ESTEFANI WILLARD Attending Unavailable Vellanki, Laurie Consulting Unavailable Ganta, Yasemin Primary Care Unavailable Cesilia Brown Referring Unavailable BasalCesilia wilder Attending Unavailable Ganta, Yasemin Primary Care Unavailable Ganta, Yasemin Primary Care Unavailable Ganta, Yasemin Referring Unavailable Guy VAZQUEZ, Rebecca Attending Unavailable Ganta, Yasemin Primary Care Unavailable Luis Angel Haynes Attending Unavailable Ganta, Yasemin Primary Care Unavailable Dustin Newton Attending Unavailable Ganta, Yasemin Primary Care Unavailable Vellanki, Laurie Referring Unavailable Felipe, Laurie Attending Unavailable Guy FITTER TACKER, Rebecca Consulting Unavailable Ganta, Yasemin Primary Care Unavailable Cesilia Brown Attending Unavailable Cesilia Brown Referring Unavailable Vellanki, Laurie Referring Unavailable Vellanki, Laurie Attending Unavailable Ganta, Yasemin Primary Care Unavailable GANTA, YASEMIN Primary Care Unavailable ORANTES, DANUTA Referring Unavailable RAMOS, GENEVA Referring Unavailable GANTA, YASEMIN Primary Care Unavailable GENEVA RAMOS Attending Unavailable RAMOS, GENEVA Referring Unavailable GANTA, YASEMIN Primary Care Unavailable GANTA, YASEMIN Primary Care Unavailable DAYAN SILVERMAN Referring Unavailable BRAULIO MAHIN T Attending Unavailable GANTA, YASEMIN Primary Care Unavailable DAYAN SILVERMAN Attending Unavailable BRAULIO, MAHIN T Referring Unavailable ORANTES, DANUTA Referring Unavailable GANTA, YASEMIN Primary Care Unavailable ESTEFANI WILLARD Attending Unavailable RAMOS, GENEVA Referring Unavailable GANTA, YASEMIN Primary Care Unavailable RAMOS, GENEVA Referring Unavailable GANTA, YASEMIN Primary Care Unavailable GANTA, YASEMIN Primary Care Unavailable SHANTELL LORENZANA Attending Unavailable GANTA, YASEMIN Primary Care Unavailable MAUREEN CLIFTON Referring Unavailable GANTA, YASEMIN Primary Care Unavailable RAMOS, GENEVA Attending Unavailable RAMOS, GENEVA Referring Unavailable GANTA, YASEMIN Primary Care Unavailable RAMOS, GENEVA Referring Unavailable GANTA, YASEMIN Primary Care Unavailable OLDER, ESTEFANI Referring Unavailable ORANTES, DANUTA Referring Unavailable GANTA, YASEMIN Primary Care Unavailable BRAULIOMAHIN LOCKWOOD Attending Unavailable GANTA, YASEMIN Primary Care Unavailable SHANTELL LORENZANA Attending Unavailable GANTA, YASEMIN Primary Care Unavailable OLDER, ESTEFANI Attending Unavailable GANTA, YASEMIN Primary Care Unavailable OLDER, ESTEFANI Referring Unavailable GANTA, YASEMIN Attending Unavailable GANTA, YASEMIN Primary Care Unavailable TESTRAKE, PATRICIA Referring Unavailable TESTRAKE, PATRICIA Attending Unavailable GANTA, YASEMIN Primary Care Unavailable GANTA, YASEMIN Primary Care Unavailable RAMOS, GENEVA Referring Unavailable GANTA, YASEMIN Primary Care Unavailable RAMOS, GENEVA Referring Unavailable GANTA, YASEMIN Primary Care Unavailable RAMOS, GENEVA Referring Unavailable GANTA, YASEMIN Primary Care Unavailable OLDER, ESTEFANI Attending Unavailable RAMOS, GENEVA Referring Unavailable GANTA, YASEMIN Primary Care Unavailable RAMOS, GENEVA Referring Unavailable GANTA, YASEMIN Primary Care Unavailable GANTA, YASEMIN Referring Unavailable GANTA, YASEMIN Primary Care Unavailable BRAULIO, MAHIN T Attending Unavailable GANTA, YASEMIN Primary Care Unavailable ORANTES, DANUTA Referring Unavailable Allergies Allergy Classification Reported Allergen(s) Allergy Type Date of Onset Reaction(s) Facility (20 sources) ciprofloxacin; Translations: [CIPROFLOXACIN] Drug Allergy 6 Hives [facility] Repository Comment on above: WELTS (20 sources) dicyclomine; Translations: [DICYCLOMINE] Drug Allergy 4 Other: See Comments, Unknown [facility] (20 sources) erythromycin; Translations: [ERYTHROMYCIN] Drug Allergy 5 GI Upset, Itching [facility] (20 sources) ketoprofen; Translations: [KETOPROFEN] Drug Allergy 5 Rash [facility] (20 sources) loratadine; Translations: [LORATADINE] Drug Allergy 5 Intolerance [facility] (20 sources) nabumetone; Translations: [NABUMETONE] Drug Allergy 8 Rash [facility] (20 sources) naproxen; Translations: [NAPROXEN] Drug Allergy 8 Swelling [facility] (2 sources) OTHER; Translations: [OTHER] Propensity to adverse reactions (disorder) 5 AOF [facility] (20 sources) statin [Other] Propensity to adverse reactions 5 Intolerance [facility] Work Phone: (13 sources) Ciprofloxacin; Translations: [ciprofloxacin HCl] Drug Allergy 1 [facility] Comment on above: WELTS (12 sources) Erythromycin Drug Allergy 1 Rash [facility] (13 sources) Hyyyesh-Irp-Dce Reductase Inhibitor; Translations: [Dnenuby-Oly-Ycl Reductase Inhibitor] Allergy to substance 1 Itching [facility] (20 sources) mirabegron; Translations: [MIRABEGRON] Drug Allergy 2 Swelling [facility] Work Phone: (20 sources) Vibegron; Translations: [VIBEGRON] Drug Allergy 2 Swelling [facility] (20 sources) NITROFURANTOIN, MACROCRYSTALS / Nitrofurantoin, Monohydrate; Translations: [NITROFURANTOIN MONOHYD/M-CRYST] Drug Allergy 3 Swelling, Itching [facility] Work Phone: (1 source) Erythromycin Drug Allergy 5 [facility] Repository Medications Current Medications Medication Drug Class(es) Dates Sig (Normalized) Sig (Original) [id number] 200 actuat albuterol 0.09 mg/actuat metered dose inhaler (20 sources) beta2-Adrenergic Agonist Start: 01-04-2024 Albuterol Sulfate 90 mcg/actuation HFA aerosol inhaler Active 2 NMA INHALATION Q4H as needed for shortness of breath or wheezing January 04, 2024 1:00am Start: 07-27-2023 take 2 puff(s) by in halation every four hours as needed albuterol HFA (PROVENTIL HFA, VENTOLIN HFA) 90 mcg/actuation inhaler Indications: COPD, mild (HCC) Inhale 2 Puffs as instructed every 4 hours as needed. 1 Each 5 07/27/2023 Active amitriptyline hydrochloride 50 mg oral tablet (20 sources) Tricyclic Antidepressant Start: 05-04-2023 take 1 tablet by mouth once daily at bedtime amitriptyline (ELAVIL) 50 mg tablet Take 50 mg by mouth daily at bedtime. 05/04/2023 Active Start: 05-04-2023 take 2 tablets by mo uth once daily at bedtime amitriptyline (ELAVIL) 25 mg tablet Take 50 mg by mouth daily at bedtime. 0 05/04/2023 Active Start: 05-04-2023 take 1 tablet by pillo th once daily at bedtime amitriptyline (ELAVIL) 25 mg tablet Take 25 mg by mouth daily at bedtime. 0 05/04/2023 Active amLODIPine 10 mg oral tablet (20 sources) Dihydropyridine Calcium Channel Bjorn Start: 08-14-2024 take 1 tablet by mouth once daily amLODIPine (NORVASC) 10 mg tablet Take 1 tablet by mouth once daily. 90 tablet 3 08/14/2024 Active Start: 07-18-2023 End: 08-09-2024 take 1 tablet by mouth once daily amLODIPine (NORVASC) 10 mg tablet Take 1 tablet by mouth once daily. 90 tablet 3 07/18/2023 08/09/2024 Discontinued Start: 05-10-2014 End: 07-16-2023 take 1 tablet by mouth once daily amLODIPine (NORVASC) 10 mg tablet Take 1 tablet by mouth once daily. 90 tablet 3 07/18/2023 Active Comment on above: Take 1 tablet by pillo th once daily. Take 10 mg by mouth once daily. aspirin 81 mg delayed release oral tablet (20 sources) Platelet Aggregation Inhibitor, Nonsteroidal Anti-inflammatory Drug Start: 06-09-2022 take 1 tablet by mouth once daily aspirin, enteric coated (ASPIRIN, ENTERIC COATED) 81 mg EC tablet Take 1 tablet by mouth once daily. 06/09/2022 Active Start: 05-10-2014 End: 10-15-2020 take 1 tablet by mouth once daily Aspirin 81 MG tablet,chewable Discontinued 81 mg PO DAILY@0800 May 10, 2014 12:00am October 15, 2020 1:07pm Comment on above: Take 1 tablet by pillo th once daily. cholecalciferol 0.025 mg oral capsule (20 sources) Vitamin D Start: 05-28-2024 take 1 capsule by mouth once daily Cholecalciferol, Vitamin D3, 25 mcg (1,000 unit) cap Take 1 capsule by mouth once daily. 90 capsule 3 05/28/2024 Active Start: 01-04-2024 take 1 capsule by [facility] once daily Cholecalciferol (Vitamin D3) (Vitamin D3) 25 mcg (1,000 unit) capsule Active 25 ug PO DAILY January 04, 2024 1:00am Start: 05-30-2023 take 1 capsule by [facility] once daily Cholecalciferol, Vitamin D3, 25 mcg (1,000 unit) cap Take 1 capsule by mouth once daily. 90 capsule 3 05/30/2023 Active diclofenac sodium 0.01 mg/mg topical gel (20 sources) Nonsteroidal Anti-inflammatory Drug Start: 01-04-2024 Diclofenac Sodium 1 % gel Active 1 - 2 NMA TOPICAL DAILY January 04, 2024 1:00am Start: 01-04-2024 Diclofenac Sod ium 3 % gel Active 1 NMA TOPICAL TWICE A DAY January 04, 2024 1:00am Start: 12-08-2022 End: 12-08-2023 diclofenac (VOLTAREN ARTHRIT IS PAIN) 1 % topical gel Apply 2 g to affected area four times daily. 240 g 11 12/08/2022 04/06/2023 Discontinued Start: 12-08-2021 diclofenac (VO LTAREN ARTHRITIS PAIN) 1 % topical gel Apply 2 g to affected area once daily. 200 g 11 12/08/2021 Active Start: 10-16-2018 End: 10-16-2019 Diclofenac Sodium 1 % gel Di scontinued TOPICAL 400 October 16, 2018 12:00am October 16, 2019 2:35pm Start: 10-16-2018 End: 10-16-2019 Diclofenac Sodium Discontinu ed TOPICAL 400 October 16, 2018 12:00am October 16, 2019 2:35pm Start: 06-12-2018 End: 03-03-2024 Diclofenac Sodium (SOLARAZE) 3 % gel Apply to affected area two times a day. 06/12/2018 03/03/2024 Discontinued Start: 06-12-2018 Diclofenac Sod ium (SOLARAZE) 3 % gel Apply to affected area three times daily as needed. 0 06/12/2018 Active Comment on above: Apply to affected ar ea three times daily as needed. Apply 2 g to affecte d area once daily. Apply 2 g to affecte d area four times daily. Apply to affected ar ea two times a day. Diclofenac-Hyaluronate -Niacin (10 sources) Start: 01-14-2020 Diclofenac-Hyaluronate- Niacin Active 30 GM TP THREE TIMES A DAY January 14, 2020 11:17am Start: 01-14-2020 End: 10-20-2021 Yrdpcbwzrr-Ltdceinkwue-Bcoin n Discontinued 30 GM TP THREE TIMES A DAY January 14, 2020 1:00am October 20, 2021 2:02pm Start: 01-14-2020 End: 10-20-2021 Rpwyciwupt-Xqdkaogzfdo-Nlcky n Discontinued 30 GM TP THREE TIMES A DAY January 14, 2020 12:00am October 20, 2021 1:02pm Start: 01-14-2020 Diclofenac-Hya luronate-Niacin Active 30 GM TP THREE TIMES A DAY January 14, 2020 1:00am enteric contrast (will be provided with radiology test) (20 sources) Start: 10-13-2024 End: 10-14-2024 enteric contrast (will be provided with radiology test) Indications: Encounter for follow-up surveillance of colon cancer , Metastases to the liver (HCC) , S/P laparoscopic surgery , Status post right hemicolectomy , Cancer of transverse colon (HCC) For CT CHESTABD/PEL W IVCON Routine order Administer, As Directed One Time Only, via Oral, Rectal, both Oral and Rectal, Enteric Tube, Stoma or Indwelling Catheter, Enteric Contrast as designated per enteric contrast guidelines 1 each 10/13/2024 10/14/2024 Active Start: 04-08-2024 End: 04-09-2024 enteric contrast (will be pr ovided with radiology test) Indications: Cancer of transverse colon (HCC) , Metastases to the liver (HCC) For CT CHESTABD/PEL W IVCON Routine order Administer, As Directed One Time Only, via Oral, Rectal, both Oral and Rectal, Enteric Tube, Stoma or Indwelling Catheter, Enteric Contrast as designated per enteric contrast guidelines 1 Each 04/08/2024 04/09/2024 Active Start: 10-02-2023 End: 10-03-2023 enteric contrast (will be pr ovided with radiology test) Indications: Cancer of transverse colon (HCC) , Lung nodules , Metastases to the liver (HCC) For CT CHESTABD/PEL W IVCON Routine order Administer, As Directed One Time Only, via Oral, Rectal, both Oral and Rectal, Enteric Tube, Stoma or Indwelling Catheter, Enteric Contrast as designated per enteric contrast guidelines 1 Each 10/02/2023 10/03/2023 Active Start: 04-06-2023 End: 04-07-2023 enteric contrast (will be pr ovided with radiology test) For CT CHESTABD/PEL W IVCON Routine order Administer, As Directed One Time Only, via Oral, Rectal, both Oral and Rectal, Enteric Tube, Stoma or Indwelling Catheter, Enteric Contrast as designated per enteric contrast guidelines 1 Each 0 04/06/2023 04/07/2023 Active Start: 01-10-2023 End: 01-11-2023 enteric contrast (will be pr ovided with radiology test) Indications: Lung nodules , Cancer of transverse colon (HCC) , Metastases to the liver (HCC) For CT CHESTABD/PEL W IVCON Routine order Administer, As Directed One Time Only, via Oral, Rectal, both Oral and Rectal, Enteric Tube, Stoma or Indwelling Catheter, Enteric Contrast as designated per enteric contrast guidelines 1 Each 0 01/10/2023 01/11/2023 Active Start: 10-05-2022 End: 10-06-2022 enteric contrast (will be pr ovided with radiology test) Indications: Malignant neoplasm of transverse colon (HCC) , Metastases to the liver (HCC) , Lung nodules For CT CHESTABD/PEL W IVCON Routine order Administer, As Directed One Time Only, via Oral, Rectal, both Oral and Rectal, Enteric Tube, Stoma or Indwelling Catheter, Enteric Contrast as designated per enteric contrast guidelines 1 Each 0 10/05/2022 10/06/2022 Start: 10-05-2022 End: 10-06-2022 enteric contrast (will be pr ovided with radiology test) Indications: Malignant neoplasm of transverse colon (HCC) , Metastases to the liver (HCC) , Lung nodules For CT CHESTABD/PEL W IVCON Routine order Administer, As Directed One Time Only, via Oral, Rectal, both Oral and Rectal, Enteric Tube, Stoma or Indwelling Catheter, Enteric Contrast as designated per enteric contrast guidelines 1 Each 0 10/05/2022 10/06/2022 Active Start: 04-03-2022 End: 04-04-2022 enteric contrast (will be pr ovided with radiology test) Indications: Malignant neoplasm of transverse colon (HCC) , Metastases to the liver (HCC) , Lung nodules For CT CHESTABD/PEL W IVCON Routine order Administer, As Directed One Time Only, via Oral, Rectal, both Oral and Rectal, Enteric Tube, Stoma or Indwelling Catheter, Enteric Contrast as designated per enteric contrast guidelines 1 Each 0 04/03/2022 04/04/2022 Active Start: 12-01-2021 End: 12-02-2021 enteric contrast (will be pr ovided with radiology test) Indications: Malignant neoplasm of transverse colon (HCC) , Metastases to the liver (HCC) , Lung nodules For CT CHESTABD/PEL W IVCON Routine order Administer, As Directed One Time Only, via Oral, Rectal, both Oral and Rectal, Enteric Tube, Stoma or Indwelling Catheter, Enteric Contrast as designated per enteric contrast guidelines 1 Each 0 12/01/2021 12/02/2021 Active Start: 03-30-2021 End: 06-09-2022 enteric contrast (will be pr ovided with radiology test) Indications: Secondary malignant neoplasm of chest wall (HCC) , Cancer of transverse colon (HCC) , Metastases to the liver (HCC) , Lung nodules For CT ABD/PEL W IVCON Routine order Administer, As Directed One Time Only, via Oral, Rectal, both Oral and Rectal, Enteric Tube, Stoma or Indwelling Catheter, Enteric Contrast as designated per enteric contrast guidelines 1 Each 0 03/30/2021 06/09/2022 Discontinued Start: 03-30-[address] (will be provided with radiology test) Indications: Secondary malignant neoplasm of chest wall (HCC) , Cancer of transverse colon (HCC) , Metastases to the liver (HCC) , Lung nodules For CT ABD/PEL W IVCON Routine order Administer, As Directed One Time Only, via Oral, Rectal, both Oral and Rectal, Enteric Tube, Stoma or Indwelling Catheter, Enteric Contrast as designated per enteric contrast guidelines 1 Each 0 03/30/2021 Active Comment on above: For CT ABD/PEL W IVC ON Routine order Administer, As Directed One Time Only, via Oral, Rectal, both Oral and Rectal, Enteric Tube, Stoma or Indwelling Catheter, Enteric Contrast as designated per enteric contrast guidelines For CT CHESTABD/PEL W IVCON Routine order Administer, As Directed One Time Only, via Oral, Rectal, both Oral and Rectal, Enteric Tube, Stoma or Indwelling Catheter, Enteric Contrast as designated per enteric contrast guidelines fenofibrate 54 mg oral tablet (20 sources) Peroxisome Proliferator Receptor alpha Agonist Start: 6 End: 4 take 1 tablet by mouth once daily Fenofibrate (LOFIBRA) 54 mg tablet Take 1 tablet by mouth once daily. 90 tablet 3 01/23/2024 Active Comment on above: Take 54 mg by mouth once daily. 24 hr fesoterodine fumarate 4 mg extended release oral tablet (20 sources) Start: 4 End: 5 take 1 tablet by mouth once daily Fesoterodine 4 mg tablet extended release 24 hr Active 4 mg PO daily January 01, 2024 1:00am folic acid 0.8 mg oral tablet (20 sources) Start: 8 Folic Acid 0.8 MG tablet Active 800 mg PO DAILY May 23, 2017 12:00am Start: 05-23-2017 take 800 mg by mouth once camila y Folic Acid Active 800 MG PO DAILY May 23, 2017 12:00am Start: 09-02-2015 End: 01-17-2017 take 1 tablet by mouth every other day Folic Acid 0.8 MG tablet Discontinued 0.8 mg PO EVERY OTHER DAY September 02, 2015 12:00am January 17, 2017 11:09am Start: 02-21-2005 FOLIC ACID 800 MCG TAB Take by mouth once daily. 0 02/21/2005 Active Comment on above: Take by mouth once d aily. furosemide 20 mg oral tablet (20 sources) Loop Diuretic Start: 01-01-2024 End: 01-04-2024 take 1 tablet by mouth once daily as needed for edema Furosemide 20 mg tablet Active 20 mg PO DAILY as needed for edema January 04, 2024 1:00am Start: 01-12-2023 End: 01-01-2024 take 10 mg by mouth every other day Furosemide 20 mg tablet Discontinued 10 mg PO every other day January 12, 2023 12:39pm January 12, 2023 1:13pm Start: 01-12-2023 End: 01-12-2023 take 10 mg by mouth every other day Furosemide Discontinued 10 MG PO every other day January 12, 2023 12:39pm January 12, 2023 1:13pm Start: 12-18-2019 End: 05-28-2023 take 0.5 tablet by mouth once daily furosemide (LASIX) 20 mg tablet Indications: Bilateral lower extremity edema Take 0.5 tablets by mouth once daily. 45 tablet 3 05/28/2023 Active Start: 12-03-2019 End: 01-12-2023 take 10 mg by mouth once daily Furosemide 20 mg tablet Discontinued 10 mg PO DAILY December 03, 2019 3:17pm January 12, 2023 12:26pm Start: 12-03-2019 End: 01-12-2023 take 10 mg by mouth once daily Furosemide Discontinued 10 MG PO DAILY December 03, 2019 3:17pm January 12, 2023 12:26pm Start: 05-10-2014 End: 12-03-2019 take 1 tablet by mouth once daily Furosemide 20 mg tablet Discontinued 20 mg PO DAILY October 16, 2019 2:36pm December 03, 2019 3:16pm Comment on above: Take 0.5 tablets by mouth once daily. hydroxychloroquine sulfate 200 mg oral tablet (20 sources) Antimalarial, Antirheumatic Agent Start: 2019 take 1 tablet by mouth once daily Hydroxychloroquine 200 mg tablet Active 200 mg PO DAILY October 16, 2019 12:00am Start: 05-10-2014 End: 10-09-2018 take 1 tablet by mouth once daily at mealtime Hydroxychloroquine 200 MG tablet Discontinued 200 mg PO DAILY WITH MEALS May 10, 2014 12:00am October 09, 2018 9:47am Comment on above: Take by mouth once d aily. Take 200 mg by mouth once daily. 3 ml insulin lispro 100 unt/ml pen injector (20 sources) Insulin Analog Start: 10-20-2021 Insulin Lispro 100 unit/mL solution Active 1 sliding scale dose SC Use as Directed October 20, 2021 12:00am Start: 10-20-2021 Insulin Lispro Active 1 sliding scale dose SC Use as Directed October 20, 2021 12:00am Start: 06-22-2020 End: 09-18-2022 insulin lispro (HUMALOG KWIK PEN INSULIN) 100 unit/mL Indications: 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) Sliding scale during chemotherapy for glucose readings with meals 151 - 200 2 units 201 - 250 4 units 251 - 300 6 units 301 - 350 8 units 351-400 10 units >400 contact office 1 Each 3 09/18/2022 Active Comment on above: Sliding scale during chemotherapy for glucose readings with meals 151 - 200 2 units 201 - 250 4 units 251 - 300 6 units 301 - 350 8 units 351-400 10 units >400 contact office iv contrast (will be provided with radiology test) (20 sources) Start: 10-13-2024 End: 10-14-2024 iv contrast (will be provided with radiology test) Indications: Encounter for follow-up surveillance of colon cancer , Metastases to the liver (HCC) , S/P laparoscopic surgery , Status post right hemicolectomy , Cancer of transverse colon (HCC) CT Chest ABD/PEL-Inject, intravenously, once for 1 dose.No IV access, insert saline lock prior to the beginning of sedation, infusion, injection of imaging exam. Discontinue saline lock post exam. If Pt. has a central line or IVAD, may access for administration according to line specific nursing protocol. Once exam is complete flush line and de-access according to line specific nursing protocol in the CT contrast administration guidelines link. 1 each 10/13/2024 10/14/2024 Active Start: 04-08-2024 End: 04-09-2024 iv contrast (will be provide d with radiology test) Indications: Cancer of transverse colon (HCC) , Metastases to the liver (HCC) CT Chest ABD/PEL-Inject, intravenously, once for 1 dose.No IV access, insert saline lock prior to the beginning of sedation, infusion, injection of imaging exam. Discontinue saline lock post exam. If Pt. has a central line or IVAD, may access for administration according to line specific nursing protocol. Once exam is complete flush line and de-access according to line specific nursing protocol in the CT contrast administration guidelines link. 1 Each 04/08/2024 04/09/2024 Active Start: 10-02-2023 End: 10-03-2023 iv contrast (will be provide d with radiology test) Indications: Cancer of transverse colon (HCC) , Lung nodules , Metastases to the liver (HCC) CT Chest ABD/PEL-Inject, intravenously, once for 1 dose.No IV access, insert saline lock prior to the beginning of sedation, infusion, injection of imaging exam. Discontinue saline lock post exam. If Pt. has a central line or IVAD, may access for administration according to line specific nursing protocol. Once exam is complete flush line and de-access according to line specific nursing protocol in the CT contrast administration guidelines link. 1 Each 10/02/2023 10/03/2023 Active Start: 04-06-2023 End: 04-07-2023 iv contrast (will be provide d with radiology test) CT Chest ABD/PEL-Inject, intravenously, once for 1 dose.No IV access, insert saline lock prior to the beginning of sedation, infusion, injection of imaging exam. Discontinue saline lock post exam. If Pt. has a central line or IVAD, may access for administration according to line specific nursing protocol. Once exam is complete flush line and de-access according to line specific nursing protocol in the CT contrast administration guidelines link. 1 Each 0 04/06/2023 04/07/2023 Active Start: 01-10-2023 End: 01-11-2023 iv contrast (will be provide d with radiology test) Indications: Lung nodules , Cancer of transverse colon (HCC) , Metastases to the liver (HCC) CT Chest ABD/PEL-Inject, intravenously, once for 1 dose.No IV access, insert saline lock prior to the beginning of sedation, infusion, injection of imaging exam. Discontinue saline lock post exam. If Pt. has a central line or IVAD, may access for administration according to line specific nursing protocol. Once exam is complete flush line and de-access according to line specific nursing protocol in the CT contrast administration guidelines link. 1 Each 0 01/10/2023 01/11/2023 Active Start: 10-05-2022 End: 10-06-2022 iv contrast (will be provide d with radiology test) Indications: Malignant neoplasm of transverse colon (HCC) , Metastases to the liver (HCC) , Lung nodules CT Chest ABD/PEL-Inject, intravenously, once for 1 dose.No IV access, insert saline lock prior to the beginning of sedation, infusion, injection of imaging exam. Discontinue saline lock post exam. If Pt. has a central line or IVAD, may access for administration according to line specific nursing protocol. Once exam is complete flush line and de-access according to line specific nursing protocol in the CT contrast administration guidelines link. 1 Each 0 10/05/2022 10/06/2022 Start: 10-05-2022 End: 10-06-2022 iv contrast (will be provide d with radiology test) Indications: Malignant neoplasm of transverse colon (HCC) , Metastases to the liver (HCC) , Lung nodules CT Chest ABD/PEL-Inject, intravenously, once for 1 dose.No IV access, insert saline lock prior to the beginning of sedation, infusion, injection of imaging exam. Discontinue saline lock post exam. If Pt. has a central line or IVAD, may access for administration according to line specific nursing protocol. Once exam is complete flush line and de-access according to line specific nursing protocol in the CT contrast administration guidelines link. 1 Each 0 10/05/2022 10/06/2022 Active Start: 04-07-2022 End: 04-08-2022 inject 1 dose intravenously once iv contrast (will be provided with radiology test) MRI Brain Inject, intravenously, once for 1 dose.No IV access, insert saline lock prior to beginning of sedation, infusion, injection of imaging exam.Discontinue saline lock post exam. If Pt. has a central line or IVAD, may access for administration according to line specific nursing protocol.Once exam is complete flush line and de-access according to line specific nursing protocol in the MR contrast administration guidelines link 1 Each 0 04/07/2022 04/08/2022 Active Start: 04-03-2022 End: 04-04-2022 iv contrast (will be provide d with radiology test) Indications: Malignant neoplasm of transverse colon (HCC) , Metastases to the liver (HCC) , Lung nodules CT Chest ABD/PEL-Inject, intravenously, once for 1 dose.No IV access, insert saline lock prior to the beginning of sedation, infusion, injection of imaging exam. Discontinue saline lock post exam. If Pt. has a central line or IVAD, may access for administration according to line specific nursing protocol. Once exam is complete flush line and de-access according to line specific nursing protocol in the CT contrast administration guidelines link. 1 Each 0 04/03/2022 04/04/2022 Active Start: 12-01-2021 End: 10-28-2022 iv contrast (will be provide d with radiology test) Indications: Malignant neoplasm of transverse colon (HCC) , Metastases to the liver (HCC) , Lung nodules CT Chest ABD/PEL-Inject, intravenously, once for 1 dose.No IV access, insert saline lock prior to the beginning of sedation, infusion, injection of imaging exam. Discontinue saline lock post exam. If Pt. has a central line or IVAD, may access for administration according to line specific nursing protocol. Once exam is complete flush line and de-access according to line specific nursing protocol in the CT contrast administration guidelines link. 1 Each 0 12/01/2021 12/02/2021 Active Start: 03-30-2021 End: 06-09-2022 iv contrast (will be provide d with radiology test) Indications: Secondary malignant neoplasm of chest wall (HCC) , Cancer of transverse colon (HCC) , Metastases to the liver (HCC) , Lung nodules CT Chest W -Inject, intravenously, once for 1 dose.No IV access, insert saline lock prior to the beginning of sedation, infusion, injection of imaging exam. Discontinue saline lock post exam. If Pt. has a central line or IVAD, may access for administration according to line specific nursing protocol. Once exam is complete flush line and de-access according to line specific nursing protocol in the CT contrast administration guidelines link. 1 Each 0 03/30/2021 06/09/2022 Discontinued Start: 03-30-2021 End: 06-09-2022 iv contrast (will be provide d with radiology test) Indications: Secondary malignant neoplasm of chest wall (HCC) , Cancer of transverse colon (HCC) , Metastases to the liver (HCC) , Lung nodules CT ABD/PEL -Inject, intravenously, once for 1 dose.No IV access, insert saline lock prior to the beginning of sedation, infusion, injection of imaging exam. Discontinue saline lock post exam. If Pt. has a central line or IVAD, may access for administration according to line specific nursing protocol. Once exam is complete flush line and de-access according to line specific nursing protocol in the CT contrast administration guidelines link. 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 Discontinue saline lock post exam. If Pt. has a central line or IVAD, may access for administration according to line specific nursing protocol. Once exam is complete flush line and de-access according to line specific nursing protocol in the CT contrast administration guidelines link. 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 Discontinue saline lock post exam. If Pt. has a central line or IVAD, may access for administration according to line specific nursing protocol. Once exam is complete flush line and de-access according to line specific nursing protocol in the CT contrast administration guidelines link. 1 Each 0 03/30/2021 Active Comment on above: CT Chest W -Inject, intravenously, once for 1 dose.No IV access, insert saline lock prior to the beginning of sedation, infusion, injection of imaging exam. Discontinue saline lock post exam. If Pt. has a central line or IVAD, may access for administration according to line specific nursing protocol. Once exam is complete flush line and de-access according to line specific nursing protocol in the CT contrast administration guidelines link. CT ABD/PEL -Inject, intravenously, once for 1 dose.No IV access, insert saline lock prior to the beginning of sedation, infusion, injection of imaging exam. Discontinue saline lock post exam. If Pt. has a central line or IVAD, may access for administration according to line specific nursing protocol. Once exam is complete flush line and de-access according to line specific nursing protocol in the CT contrast administration guidelines link. CT Chest ABD/PEL-Inj ect, intravenously, once for 1 dose.No IV access, insert saline lock prior to the beginning of sedation, infusion, injection of imaging exam. Discontinue saline lock post exam. If Pt. has a central line or IVAD, may access for administration according to line specific nursing protocol. Once exam is complete flush line and de-access according to line specific nursing protocol in the CT contrast administration guidelines link. MRI Brain Inject, in travenously, once for 1 dose.No IV access, insert saline lock prior to beginning of sedation, infusion, injection of imaging exam.Discontinue saline lock post exam. If Pt. has a central line or IVAD, may access for administration according to line specific nursing protocol.Once exam is complete flush line and de-access according to line specific nursing protocol in the MR contrast administration guidelines link lactobacillus comb no.10 (PROBIOTIC) 20 billion cell cap (13 sources) take 1 capsule by mouth once daily lactobacillus comb no.10 (PROBIOTIC) 20 billion cell cap Take 1 capsule by mouth once daily. Active magnesium oxide 400 mg oral tablet (20 sources) Start: 018 End: take 1 tablet by mouth once daily magnesium oxide (MAG-OX) 400 mg (241.3 mg magnesium) tablet Indications: Hypomagnesemia Take 1 tablet by mouth once daily. 90 tablet 3 12/19/2023 Active Comment on above: Take 1 tablet by pillo th once daily. 24 hr metFORMIN hydrochloride 500 mg extended release oral tablet (20 sources) Biguanide Start: 023 End: take 1 tablet by mouth once daily at breakfast metFORMIN ER (GLUCOPHAGE XR) 500 mg 24 hr tablet Take 1 tablet by mouth daily with breakfast. 90 tablet 3 10/25/2023 Active Start: 05-10-2014 End: 01-12-2023 take 2 tablets by mouth once daily Metformin 500 MG tablet Discontinued 1000 mg PO DAILY May 10, 2014 12:00am January 12, 2023 12:11pm Start: 05-10-2014 End: 01-12-2023 take 1000 mg by mouth once daily Metformin Discontinued 1000 MG PO DAILY May 10, 2014 12:00am January 12, 2023 12:11pm Comment on above: Take 2 tablets by mo uth daily with breakfast. TAKE 2 TABLETS DAILY WITH BREAKFAST Take 1 tablet by pillo th daily with breakfast. 24 hr metoprolol succinate 50 mg extended release oral tablet (20 sources) beta-Adrenergic Bjorn Start: 1 End: 5 take 1 tablet by mouth once daily metoprolol succinate ER (TOPROL XL) 50 mg 24 hr tablet Indications: Primary hypertension Take 1 tablet by mouth once daily. 90 tablet 3 06/02/2024 Active Start: 05-10-2014 End: 05-11-2022 take 1 tablet by mouth every twenty-four hours at bedtime Metoprolol Succinate 50 mg tablet extended release 24 hr Active 50 mg PO AT BEDTIME 90 May 11, 2022 3:37pm Comment on above: Take 1 tablet by pillo th once daily. mometasone furoate 1 mg/ml topical cream (3 sources) Corticosteroid Start: 3 End: 3 mometasone (ELOCON) 0.1 % cream Indications: Localized dermatitis Apply to affected area once daily for 14 days. 15 g 0 06/09/2022 06/23/2022 Active Comment on above: Apply to affected ar ea once daily for 14 days. 24 hr morphine sulfate 30 mg extended release oral capsule (20 sources) Opioid Agonist Start: 3 take 1 capsule by mouth twice daily Morphine 30 mg capsule, ER multiphase 24 hr Active 15 mg PO TWICE A DAY January 12, 2023 12:22pm Start: 10-09-2018 End: 01-12-2023 take 1 capsule by mouth three times daily Morphine 30 mg capsule, ER multiphase 24 hr Discontinued 15 mg PO THREE TIMES A DAY October 09, 2018 9:42am January 12, 2023 12:23pm Start: 01-17-2017 End: 10-09-2018 take 1 capsule by mouth three times daily Morphine 30 mg capsule, ER multiphase 24 hr Discontinued 30 mg PO THREE TIMES A DAY January 17, 2017 1:00am October 09, 2018 9:48am take 1 tablet by pillo th twice daily, then take 1 tablet by mouth every twelve hours morphine SR (MS CONTIN, ORAMORPH SR) 15 mg 12 hr tablet Take 15 mg by mouth two times a day. Active take 1 tablet by pillo th every eight hours as needed, then take 1 tablet by mouth every twelve hours as needed morphine SR (MS CONTIN, ORAMORPH SR) 15 mg 12 hr tablet Take 15 mg by mouth every 8 hours as needed. 0 Active Comment on above: Take 15 mg by mouth every 8 hours as needed. Take 15 mg by mouth two times a day. Tiotropium-Olodaterol (20 sources) Anticholinergic, beta2-Adrenergic Agonist Start: 01-12-2023 Tiotropium-Olodaterol (Stiolto Respimat) 2.5-2.5 mcg/actuation mist Active 2 NMA INHALATION DAILY January 12, 2023 1:00am Start: 01-12-2023 Tiotropium-Olo daterol (Stiolto Respimat) 2.5-2.5 mcg/actuation mist Active 2 PUFF INHALATION DAILY January 12, 2023 1:00am Start: 01-12-2023 Tiotropium-Olo daterol (Stiolto Respimat) 2.5-2.5 mcg/actuation mist Active 2 PUFF INHALATION DAILY January 12, 2023 12:00am Start: 01-01-2023 End: 04-06-2023 take 2 puff(s) by inhalation once daily tiotropium 2.5 mcg-olodateroL 2.5 mcg/actuation mist for inhalation (STIOLTO RESPIMAT) Indications: COPD (chronic obstructive pulmonary disease) with chronic bronchitis (HCC) Inhale 2 Puffs as instructed once daily. 4 g 5 01/01/2023 04/06/2023 Discontinued Start: 01-24-2021 End: 05-09-2022 take 2 puff(s) by inhalation once daily tiotropium 2.5 mcg-olodateroL 2.5 mcg/actuation mist for inhalation (STIOLTO RESPIMAT) Indications: COPD (chronic obstructive pulmonary disease) with chronic bronchitis Inhale 2 Puffs as instructed once daily. 4 g 5 05/09/2022 Active Start: 10-09-2018 End: 10-16-2019 Tiotropium-Olodaterol 2.5-2. 5 mcg/actuation mist Discontinued 2 NMA INHALATION DAILY October 09, 2018 12:00am October 16, 2019 2:35pm Start: 10-09-2018 End: 10-16-2019 take 1 puff(s) by inhalation once daily Tiotropium-Olodaterol Discontinued 2 PUFF INHALATION DAILY October 09, 2018 12:00am October 16, 2019 2:35pm Start: 10-09-2018 End: 10-16-2019 take 1 puff(s) by inhalation once daily Tiotropium-Olodaterol Discontinued 2 PUFF INHALATION DAILY October 08, 2018 11:00pm October 16, 2019 1:35pm Comment on above: Inhale 2 Puffs as in structed once daily. [place]-3 Fatty Acids 500 mg cap (20 sources) Start: 03-09-2017 take 1 capsule by mouth once daily [place]-3 Fatty Acids 500 mg cap Indications: Sciatica of right side Take 1 capsule by mouth once daily. 03/09/2017 Active Start: 03-09-2017 take 1 capsule by mo ut once daily [place]-3 Fatty Acids 500 mg cap Indications: Sciatica of right side Take 1 capsule by mouth once daily. 0 03/09/2017 Active Comment on above: Take 1 capsule by mo ut once daily. [place]-3 Fatty Acids-Fish Oil (10 sources) Start: 05-23-2017 [place]-3 Fatty Acids-Fish Oil Active 1 EACH PO AT BEDTIME May 23, 2017 9:30am Start: 05-23-2017 [place]-3 Fatty Acids-Fish Oil Active 1 EACH PO AT BEDTIME May 22, 2017 11:00pm Start: 05-23-2017 [place]-3 Fatty Acids-Fish Oil Active 1 EACH PO AT BEDTIME May 23, 2017 12:00am [place]-3 Fatty Acids-Fish Oil 1 EACH capsule (2 sources) Start: 05-23-2017 [place]-3 Fatty Acids-Fish Oil 1 EACH capsule Active 1 NMA PO AT BEDTIME May 23, 2017 12:00am omeprazole 40 mg delayed release oral capsule (20 sources) Proton Pump Inhibitor Start: 2021 End: 05-21-2025 take 1 capsule by mouth once daily omeprazole (PRILOSEC) 40 mg capsule Take 1 capsule by mouth once daily. 90 capsule 3 05/21/2024 05/21/2025 Active Start: 03-21-2021 End: 09-22-2021 take 1 capsule by mouth once daily omeprazole (PRILOSEC) 40 mg capsule Take 1 capsule by mouth once daily. 30 capsule 2 09/22/2021 Active Start: 01-14-2020 take 2 capsules by m out once daily Omeprazole 20 MG capsule Active 40 mg PO DAILY January 14, 2020 1:00am Start: 01-14-2020 take 40 mg by mouth once daily Omeprazole Active 40 MG PO DAILY January 14, 2020 1:00am Comment on above: TAKE 1 CAPSULE BY MO UT EVERY DAY Take 1 capsule by mo [facility] once daily. Take 1 capsule by mo uth once daily ondansetron 4 mg disintegrating oral tablet (20 sources) Serotonin-3 Receptor Antagonist Start: take 1 tablet by mouth every eight hours as needed for nausea Ondansetron 4 mg tablet,disintegrati ng Active 4 mg PO EVERY 8 HOURS NEEDED as needed for Nausea March 09, 2024 1:00am Start: 04-19-2022 End: 03-09-2024 take 1 tablet by mouth every six hours as needed ondansetron orally disintegrating (ZOFRAN ODT) 4 mg disintegrating tablet Take 1 tablet by mouth every 6 hours as needed for nausea/vomiting. 30 tablet 1 01/23/2024 Active Start: 04-15-2022 End: 01-12-2023 take 2 tablets by mouth every eight hours as needed for nausea Ondansetron 4 mg tablet,disintegrating Discontinued 8 mg PO EVERY 8 HOURS NEEDED as needed for Nausea April 15, 2022 1:00am January 12, 2023 12:10pm Start: 04-15-2022 End: 01-12-2023 take 8 mg by mouth every eight hours as needed Ondansetron Discontinued 8 MG PO EVERY 8 HOURS NEEDED April 15, 2022 1:00am January 12, 2023 12:10pm Start: 02-22-2022 End: 01-04-2024 take 1 tablet by mouth twice daily as needed for nausea and vomiting Ondansetron 4 mg tablet,disintegrating Discontinued 4 mg PO TWICE A DAY as needed for nausea and vomiting February 22, 2022 7:54pm January 04, 2024 7:40am Comment on above: Take 1 tablet by [facility] every 6 hours as needed for nausea/vomiting. perflutren lipid microspheres 1.3 mL in NaCl (PF) 0.9% 10 mL injection (DEFINITY) (10 sources) Start: 021 End: 022 perflutren lipid microspheres 1.3 mL in NaCl (PF) 0.9% 10 mL injection (DEFINITY) sulfamethoxazole 800 mg / trimethoprim 160 mg oral tablet (1 source) Dihydrofolate Reductase Inhibitor Antibacterial, Sulfonamide Antimicrobial Start: 023 End: 023 take 1 tablet by mouth twice daily sulfamethoxazole-tr imethoprim (BACTRIM DS) 800-160 mg per tablet Take 1 tablet by mouth twice daily for 10 days. 20 tablet 0 10/07/2022 10/17/2022 Active Comment on above: Take 1 tablet by pillo twice daily for 10 days. valsartan 160 mg oral tablet (20 sources) Angiotensin 2 Receptor Bjorn Start: 020 End: 025 take 1 tablet by mouth once daily valsartan (DIOVAN) 160 mg tablet Indications: Primary hypertension Take 1 tablet by mouth once daily. 90 tablet 3 06/02/2024 Active Start: 09-02-2015 End: 10-09-2018 take 1 tablet by mouth once daily Valsartan 320 MG tablet Discontinued 320 mg PO DAILY September 02, 2015 12:00am October 09, 2018 9:40am Comment on above: Take 1 tablet by pillo once daily. TAKE 1 TABLET DAILY vancomycin 125 mg oral capsule (9 sources) Glycopeptide Antibacterial Start: take 1 capsule by mouth every six hours Vancomycin (Vancocin) 125 mg capsule Active 125 mg PO EVERY 6 HOURS 40 March 09, 2024 1:00am Start: 04-15-2022 End: 01-12-2023 take 1 capsule by mouth every six hours Vancomycin 125 mg capsule Discontinued 125 mg PO EVERY 6 HOURS 40 April 15, 2022 1:00am January 12, 2023 12:10pm vitamin b12 2 mg oral tablet (20 sources) Vitamin B12 Start: 09-02-2015 Cyanocobalamin (Vitamin B-12) 2,000 MCG tablet Active 1000 ug PO DAILY September 02, 2015 12:00am Start: 09-02-2015 take 500 ug by mouth once daily Cyanocobalamin (Vitamin B-12) Active 500 MCG PO DAILY September 02, 2015 12:00am take 1 tablet by pillo once daily cyanocobalamin (VITAMIN B-12) 1,000 mcg tab Take 1,000 mcg by mouth once daily. Active Comment on above: Take 1,000 mcg by mo [facility] once daily. Completed/Discontinued Medications Medication Drug Class(es) Dates Sig (Normalized) Sig (Original) acetaminophen 500 mg oral tablet (20 sources) Start: 04-24-2020 End: 04-03-2022 take 500-1000 mg by mouth every six hours as needed acetaminophen (TYLENOL) 500 mg tablet Take 1-2 tablets by mouth every 6 hours as needed. 0 04/24/2020 04/03/2022 Discontinued Start: 10-29-2015 take 1-10 tablets by mouth three times daily as needed for pain Acetaminophen 500 MG tablet Active 1000 mg PO THREE TIMES A DAY as needed for Pain 1-10 Or Fever October 29, 2015 12:00am Start: 10-29-2015 take 1000 mg by mout h three times daily Acetaminophen Active 1000 MG PO THREE TIMES A DAY October 29, 2015 12:00am take 1 tablet by pillo th every eight hours as needed acetaminophen (TYLENOL) 500 mg tablet Take 500 mg by mouth every 8 hours as needed. Active Comment on above: Take 1-2 tablets by mouth every 6 hours as needed. Take 500 mg by mouth every 8 hours as needed. Benzocaine (1 source) Standardized Chemical Allergen Start: 01-09-2024 End: 01-09-[address] [place], TOPICAL, DIRECTED, Starting on Sun01/09/24 at 0930, Until Sun01/09/24 at 1329, Dosing as directed for intraprocedural use only - Pharmaceutical Waste: Aerosol -, Intraprocedure biotin 2.5 mg oral capsule (12 sources) Start: 05-10-2014 End: 10-16-2018 Biotin 2,500 MCG capsule Discontinued 1000 ug PO EVERY OTHER DAY May 10, 2014 12:00am October 16, 2018 2:54pm Start: 05-10-2014 End: 10-16-2018 take 1000 ug by mouth every other day Biotin Discontinued 1000 MCG PO EVERY OTHER DAY May 10, 2014 12:00am October 16, 2018 2:54pm bisacodyl 5 mg delayed release oral tablet (20 sources) Stimulant Laxative Start: 04-06-2021 End: 12-01-2021 Bisacodyl (DULCOLAX) 5 mg tab Use as directed for Miralax / Gatorade Bowel Prep Kit 4 tablet 0 04/06/2021 12/01/2021 Discontinued Comment on above: Use as directed for Miralax / Gatorade Bowel Prep Kit calcium chloride 0.0014 meq/ml / potassium chloride 0.004 meq/ml / sodium chloride 0.103 meq/ml / sodium lactate 0.028 meq/ml injectable solution (1 source) Start: 01-09-2024 End: 01-09-2024 take 30 mL intravenously every hour 30 mL/hr, INTRAVENOUS, CONTINUOUS, Starting on Sun01/09/24 at 0900, Until Sun01/09/24 at 0953, Preprocedure clotrimazole 10 mg oral lozenge (3 sources) Azole Antifungal Start: 06-09-2022 End: 06-16-2022 clotrimazole (MYCELEX) 10 mg mark Indications: Thrush Use 1 Mark as instructed four times daily for 7 days. 28 tablet 0 06/09/2022 06/16/2022 Discontinued Comment on above: Use 1 Mark as inst ructed four times daily for 7 days. CPAP (20 sources) Start: 11-10-2015 End: 04-03-2022 CPAP Indications: SHILPA on CPAP Replace CPAP equipment: Cpap @ 11 cm of water without heated humidification. New Mask (per patient preference) optional chin strap (if indicated), head gear, filters, tubing, humidifier and other supplies. Length of need 12 months, or lifetime if able. Dx: G47.33 1 Device 0 11/10/2015 04/03/2022 Discontinued Start: 11-10-2015 CPAP Indicatio ns: SHILPA on CPAP Replace CPAP equipment: Cpap @ 11 cm of water without heated humidification. New Mask (per patient preference) optional chin strap (if indicated), head gear, filters, tubing, humidifier and other supplies. Length of need 12 months, or lifetime if able. Dx: G47.33 1 Device 0 11/10/2015 Active Comment on above: Replace CPAP equipme nt: Cpap @ 11 cm of water without heated humidification. New Mask (per patient preference) optional chin strap (if indicated), head gear, filters, tubing, humidifier and other supplies. Length of need 12 months, or lifetime if able. Dx: G47.33 [id number] 2 mg oral tablet (12 sources) Benzodiazepine Start: End: take 1 tablet by mouth three times daily as needed for muscle spasms Diazepam 2 MG tablet Discontinued 2 mg PO 3 TIMES DAILY NEEDED as needed for Spasms May 10, 2014 12:00am May 11, 2014 1:11pm diphenhydrAMINE (20 sources) Histamine-1 Receptor Antagonist Start: End: 12.5-50 mg, INTRAVENOUS, DIRECTED, Starting on Sun01/09/24 at 0930, Until Sun01/09/24 at 1329, DOSING DIRECTED BY PHYSICIAN FOR PROCEDURAL SEDATION ONLY, Intraprocedure take 1 capsule by mo [facility] every six hours as needed diphenhydrAMINE (BENADRYL) 25 mg capsule Take 25 mg by mouth every 6 hours as needed. Active Comment on above: Take 25 mg by mouth every 6 hours as needed. docusate sodium 100 mg oral capsule (20 sources) Start: 07-01-2022 End: 03-03-2024 take 1 capsule by mouth twice daily as needed Docusate Sodium (Colace) 100 mg capsule Discontinued 100 mg PO TWICE A DAY as needed January 12, 2023 1:00am January 04, 2024 7:40am Comment on above: Take 1 capsule by mo ut twice daily as needed for constipation. Take 1 capsule by mo ut two times a day. Take 100 mg by mouth two times a day. docusate sodium 50 mg / sennosides, senior care 8.6 mg oral tablet (20 sources) Start: 01-14-2020 End: 10-15-2020 Sennosides-Docusate Sodium 1 TABLET tablet Discontinued 1 {tbl} PO DAILY January 14, 2020 1:00am October 15, 2020 1:08pm Start: 01-14-2020 End: 10-15-2020 take 1 tablet by mouth once daily Sennosides-Docusate Sodium Discontinued 1 TABLET PO DAILY January 14, 2020 1:00am October 15, 2020 1:08pm Start: 05-23-2017 End: 10-16-2019 Sennosides-Docusate Sodium 1 TABLET tablet Discontinued 1 {tbl} PO DAILY as needed for Constipation May 23, 2017 12:00am October 16, 2019 2:35pm Start: 05-23-2017 End: 10-16-2019 take 1 tablet by mouth once daily Sennosides-Docusate Sodium Discontinued 1 TABLET PO DAILY May 23, 2017 12:00am October 16, 2019 2:35pm DULoxetine 30 mg delayed release oral capsule (12 sources) Serotonin and Norepinephrine Reuptake Inhibitor Start: 01-17-2017 End: 10-16-2018 take 1 capsule by mouth every other day Duloxetine 30 mg capsule,delayed release(DR/EC) Discontinued 30 mg PO EVERY OTHER DAY January 17, 2017 1:00am October 16, 2018 2:55pm EPINEPHrine 0.01 mg/ml / lidocaine hydrochloride 10 mg/ml injectable solution (1 source) Antiarrhythmic, alpha-Adrenergic Agonist, beta-Adrenergic Agonist, Catecholamine, Amide Local Anesthetic Start: 04-03-2024 End: 04-03-2024 SUBCUTANEOUS, X (OR/PROCEDURE) PRN, Starting on Anai 04/03/24 at 1214, Until Anai 04/03/24 at 1214, Intraprocedure ergocalciferol 1.25 mg oral capsule (20 sources) Provitamin D2 Compound Start: 10-15-2020 End: 01-12-2023 Ergocalciferol (Vitamin D2) (Vitamin D2) 1,250 mcg (50,000 unit) capsule Discontinued 1250 ug PO EVERY WEEK October 15, 2020 12:00am January 12, 2023 12:11pm Comment on above: TAKE 2 CAPSULES A WE EK FOR 8 WEEKS. THEN 1 CAPSULE WEEKLY THEREAFTER. 1 ml fentaNYL 0.05 mg/ml injection (1 source) Opioid Agonist Start: 01-09-2024 End: 01-09-2024 25-100 mcg, INTRAVENOUS, DIRECTED, Starting on Sun01/09/24 at 0930, Until Sun01/09/24 at 1329, DOSING DIRECTED BY PHYSICIAN FOR PROCEDURAL SEDATION ONLY, Intraprocedure fluconazole 150 mg oral tablet (1 source) Azole Antifungal Start: 12-11-2022 End: 12-11-2022 fluconazole (DIFLUCAN) 150 mg tablet Take 1 tablet by mouth one time only for 1 dose. Repeat in 3 days as needed. 2 tablet 0 12/11/2022 12/11/2022 Comment on above: Take 1 tablet by [facility] one time only for 1 dose. Repeat in 3 days as needed. 120 actuat formoterol fumarate 0.005 mg/actuat / mometasone furoate 0.1 mg/actuat metered dose inhaler (12 sources) Corticosteroid, beta2-Adrenergic Agonist Start: 05-10-2014 End: 10-09-2018 Mometasone-Formotero l 8.8 GM HFA aerosol inhaler Discontinued 2 NMA IH DAILY May 10, 2014 12:00am October 09, 2018 9:43am Start: 05-10-2014 End: 10-09-2018 take 1 puff(s) by inhalation once daily Mometasone-Formoterol Discontinued 2 PUFF IH DAILY May 10, 2014 12:00am October 09, 2018 9:43am gabapentin 300 mg oral capsule (19 sources) Anti-epileptic Agent Start: 11-15-2022 End: 01-01-2024 take 1 capsule by mouth once daily Gabapentin 300 mg capsule Discontinued 300 mg PO DAILY January 12, 2023 1:00am January 01, 2024 2:39pm Comment on above: Take 300 mg by mouth once daily. Gatorade Sports Drink (15 sources) Start: 04-06-2021 Gatorade Sports Drink Use as directed for Miralax / Gatorade Bowel Prep Kit 0 04/06/2021 Active Comment on above: Use as directed for Miralax / Gatorade Bowel Prep Kit leflunomide 10 mg oral tablet (12 sources) Antirheumatic Agent Start: 10-16-2019 End: 04-12-2020 take 1 tablet by mouth once daily Leflunomide 10 mg tablet Discontinued 10 mg PO DAILY October 16, 2019 12:00am April 12, 2020 3:57pm 10 ml lidocaine hydrochloride 10 mg/ml injection (1 source) Antiarrhythmic, Amide Local Anesthetic Start: 04-03-2024 End: 04-03-2024 SUBCUTANEOUS, X (OR/PROCEDURE) PRN, Starting on Anai 04/03/24 at 1213, Until Anai 04/03/24 at 1213, Intraprocedure lidocaine 25 mg/ml / prilocaine 25 mg/ml topical cream (20 sources) Antiarrhythmic, Amide Local Anesthetic Start: 03-04-2020 End: 04-06-2023 lidocaine-prilocain e (EMLA) 2.5-2.5 % cream Apple to port site 60 minutes prior to accessing 15 g 2 03/04/2020 04/06/2023 Discontinued Comment on above: Apple to port site 6 0 minutes prior to accessing loperamide hydrochloride 2 mg oral capsule (20 sources) Opioid Agonist Start: 10-15-2020 End: 01-01-2024 Loperamide (Anti-Diarrheal (Loperamide)) 2 mg capsule Discontinued 2 mg PO Q4H as needed for Diarrhea October 15, 2020 12:00am January 01, 2024 2:40pm administer after each loose stool until symptoms controlled; do not exceed 8 mg per 24 hrs End: 06-16-2022 loperamide HCl (IMODIUM A-D ORAL) Take by mouth. Prn 0 06/16/2022 Discontinued loperamide HCl ( IMODIUM A-D ORAL) Take by mouth. Prn 0 Active Comment on above: Take by mouth. Prn losartan potassium 100 mg oral tablet (12 sources) Angiotensin 2 Receptor Bjorn Start: 10-10-19 End: 10-16-19 take 1 tablet by mouth once daily Losartan 100 mg tablet Discontinued 100 mg PO DAILY October 09, 2018 12:00am October 16, 2019 2:31pm 5 ml midazolam 1 mg/ml injection (1 source) Benzodiazepine Start: 01-09-20 End: 01-09-20 1-5 mg, INTRAVENOUS, DIRECTED, Starting on Sun01/09/24 at 0930, Until Sun01/09/24 at 1329, DOSING DIRECTED BY PHYSICIAN FOR PROCEDURAL SEDATION ONLY, Intraprocedure Multivitamin With Folic Acid (10 sources) Start: 05-11-19 End: 10-17-19 take 1 tablet by mouth twice daily Multivitamin With Folic Acid Discontinued 1 TABLET PO TWICE A DAY May 10, 2014 1:46am October 16, 2018 2:54pm Start: 05-10-2014 End: 10-16-2018 take 1 tablet by mouth twice daily Multivitamin With Folic Acid Discontinued 1 TABLET PO TWICE A DAY May 09, 2014 11:00pm October 16, 2018 1:54pm Start: 05-10-2014 End: 10-16-2018 take 1 tablet by mouth twice daily Multivitamin With Folic Acid Discontinued 1 TABLET PO TWICE A DAY May 10, 2014 12:00am October 16, 2018 2:54pm Multivitamin With Folic Acid 1 TABLET tablet (2 sources) Start: 05-10-2014 End: 10-16-2018 take 1 tablet by mouth twice daily Multivitamin With Folic Acid 1 TABLET tablet Discontinued 1 {tbl} PO TWICE A DAY May 10, 2014 12:00am October 16, 2018 2:54pm nitrofurantoin, macrocrystals 25 mg / nitrofurantoin, monohydrate 75 mg oral capsule (2 sources) Nitrofuran Antibacterial Start: 09-21-2022 End: 09-26-2022 take 1 capsule by mouth twice daily at mealtime nitrofurantoin monohydrate and macrocrystal (MACROBID) 100 mg capsule Take 1 capsule by mouth twice daily with meals for 5 days. 10 capsule 0 09/21/2022 09/22/2022 Discontinued Comment on above: Take 1 capsule by [facility] twice daily with meals for 5 days. [place]-3 Fatty Acids (FISH OIL) 500 mg cap (20 sources) Start: 03-09-2017 take 1 capsule by mouth once daily [place]-3 Fatty Acids (FISH OIL) 500 mg cap Indications: Sciatica of right side Take 1 capsule by mouth once daily. 0 03/09/2017 Active Comment on above: Take 1 capsule by [facility] once daily. polyethylene glycol 3350 80318 mg powder for oral solution (15 sources) Osmotic Laxative Start: 04-06-2021 polyethylene glycol 3350 (MIRALAX, GLYCOLAX) 17 gram/dose powder Use as directed for Miralax / Gatorade Bowel Prep Kit 238 g 0 04/06/2021 Active Comment on above: Use as directed for Miralax / Gatorade Bowel Prep Kit promethazine hydrochloride 25 mg oral tablet (20 sources) Phenothiazine Start: 07-01-2020 End: 01-01-2024 take 1 tablet by mouth every six hours as needed for nausea Promethazine (Phenergan) 25 mg Tablet Discontinued 25 mg PO EVERY 6 HOURS as needed for Nausea July 01, 2020 12:00am January 01, 2024 2:40pm Comment on above: Take 1 tablet by [facility] every 6 hours as needed (For chemotherapy induced nausea). FOR NAUSEA raNITIdine 150 mg oral tablet (12 sources) Histamine-2 Receptor Antagonist Start: 09-02-2015 End: 10-16-2019 take 1 tablet by mouth twice daily Ranitidine Hcl 150 MG tablet Discontinued 150 mg PO TWICE A DAY September 02, 2015 12:00am October 16, 2019 2:32pm Vibegron (9 sources) Start: 10-20-2021 End: 01-12-2023 take 1 tablet by mouth once daily Vibegron (Gemtesa) 75 mg tablet Discontinued 75 mg PO DAILY October 20, 2021 12:00am January 12, 2023 12:11pm Start: 10-20-2021 End: 01-12-2023 take 1 tablet by mouth once daily Vibegron (Gemtesa) 75 mg tablet Discontinued 75 MG PO DAILY October 20, 2021 12:00am January 12, 2023 12:11pm Start: 10-20-2021 End: 01-12-2023 take 1 tablet by mouth once daily Vibegron (Gemtesa) 75 mg tablet Discontinued 75 MG PO DAILY October 19, 2021 11:00pm January 12, 2023 11:11am Start: 10-20-2021 take 1 tablet by pillo th once daily Vibegron (Gemtesa) 75 mg tablet Active 75 MG PO DAILY October 20, 2021 12:00am Start: 10-20-2021 take 1 tablet by pillo th once daily Vibegron (Gemtesa) 75 mg tablet Active 75 MG PO DAILY October 19, 2021 11:00pm vibegron (GEMTESA) 75 mg tablet (20 sources) End: 12-01-2021 take 1 tablet by mouth once daily vibegron (GEMTESA) 75 mg tablet Take 75 mg by mouth once daily. 0 12/01/2021 Discontinued take 1 tablet by mouth once camila y vibegron (GEMTESA) 75 mg tablet Take 75 mg by mouth once daily. 0 Active Comment on above: Take 75 mg by mouth once daily. vitamin e 100 unt oral tablet (12 sources) Start: 05-23-2017 End: 10-16-2019 take 1 tablet by mouth once daily Vitamin E Succinate 100 UNIT tablet Discontinued 100 U PO DAILY May 23, 2017 12:00am October 16, 2019 2:35pm Problems Active Problems Problem Classification Problem Date Documented Da te Episodic/Chronic Acquired foot deformities (2 sources) Talipes planus; Translations: [Flat foot [pes planus] (acquired), right foot] Episodic Allergic reactions (1 source) Eczema; Translations: [Dermatitis, unspecified] Episodic Cancer of colon (20 sources) Malignant tumor of transverse colon; Translations: [Malignant neoplasm of transverse colon] Onset: Chronic Cancer of colon (10 sources) History of malignant neoplasm of colon; Translations: [Personal history of other malignant neoplasm of large intestine] Onset: 4 Episodic Chronic kidney disease (20 sources) Chronic kidney disease stage 3; Translations: [CKD (chronic kidney disease) stage 3, GFR 30-59 ml/min] Onset: 0 04-23-2020 Chronic Chronic kidney disease (2 sources) Chronic kidney disease; Translations: [Stage 3 chronic kidney disease, unspecified whether stage 3a or 3b CKD (HCC)] Onset: 3 Chronic obstructive pulmonary disease and bronchiectasis (20 sources) Chronic bronchitis; Translations: [Unspecified chronic bronchitis] Onset: 9 Resolved: 2 03-13-2018 Chronic Conditions associated with dizziness or vertigo (3 sources) Dizziness; Translations: [Dizziness and giddiness] Onset: 3 Episodic Congestive heart failure; nonhypertensive (20 sources) Acute exacerbation of chronic congestive heart failure; Translations: [Heart failure, unspecified] Onset: 6 Resolved: 2 08-12-2015 Chronic Coronary atherosclerosis and other heart disease (1 source) Atherosclerotic heart disease of [place] coronary artery without angina pectoris; Translations: [Atherosclerotic heart disease of [place] coronary artery without angina pectoris] Onset: 8 Chronic Deficiency and other anemia (20 sources) Iron deficiency anemia due to blood loss; Translations: [Iron deficiency anemia secondary to blood loss (chronic)] Onset: 1 03-01-2020 Chronic Diabetes mellitus with complications (20 sources) Chronic kidney disease stage 3 due to type 2 diabetes mellitus; Translations: [Type 2 diabetes mellitus with diabetic chronic kidney disease] Onset: 5 03-09-2017 Chronic Diabetes mellitus without complication (2 sources) Diabetes mellitus without complication; Translations: [Type 2 diabetes mellitus with stage 3b chronic kidney disease, with long-term current use of insulin ([facility])] Onset: 3 Diseases of mouth; excluding dental (1 source) Glossopyrosis ; Translations: [Glossodynia] Episodic E Codes: Adverse effects of medical drugs (12 sources) Adverse effect of other viral vaccines, initial encounter; Translations: [Adverse effect of COVID-19 vaccine] 10-19-2021 Episodic Esophageal disorders (20 sources) Gastroesophageal reflux disease; Translations: [Gastro-esophageal reflux disease without esophagitis] Onset: 0 12-23-2009 Chronic Essential hypertension (20 sources) Essential (primary) hypertension; Translations: [Hypertensive disorder] Onset: 5 01-31-2021 Chronic Fluid and electrolyte disorders (7 sources) Mild dehydration; Translations: [Dehydration] 04-15-2022 Episodic Gastritis and duodenitis (1 source) Chronic gastritis; Translations: [Unspecified chronic gastritis without bleeding] 01-17-2024 Chronic Genitourinary symptoms and ill-defined conditions (1 source) Total urinary incontinence; Translations: [Continuous leakage] 09-21-2023 Chronic Genitourinary symptoms and ill-defined conditions (5 sources) Dysuria; Translations: [Dysuria] Episodic Hypertension with complications and secondary hypertension (20 sources) 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 failure; Translations: [Hypertensive heart and chronic kidney disease with heart failure and stage 1 through stage 4 chronic kidney disease, or unspecified chronic kidney disease] Onset: 2 06-02-2021 Chronic Inflammation; infection of eye (except that caused by tuberculosis or sexually transmitteddisease) (1 source) Bilateral optic papillitis; 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, 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 Intestinal infection (17 sources) Clostridium difficile diarrhea; Translations: [Enterocolitis due to Clostridium difficile, not specified as recurrent] 04-15-2022 Episodic Menopausal disorders (3 sources) Postmenopausal bleeding; Translations: [Postmenopausal bleeding] 12-14-2022 Chronic Mycoses (1 source) Candidiasis of mouth; Translations: [Candidal stomatitis] Episodic Noninfectious gastroenteritis (7 sources) Gastroenteritis; Translations: [Noninfective gastroenteritis and colitis, unspecified] 04-15-2022 Episodic Nonmalignant breast conditions (2 sources) Heterogeneously dense breast composition; Translations: [Mammographic heterogeneous density, bilateral breasts] 05-22-2023 Episodic Nutritional deficiencies (2 sources) Cobalamin deficiency; Translations: [Deficiency of other specified B group vitamins] Episodic Osteoarthritis (3 sources) Arthritis of knee; Translations: [Unilateral primary osteoarthritis, unspecified knee] Chronic Other aftercare (1 source) Post-discharge follow-up; Translations: [Encounter for follow-up examination after completed treatment for conditions other than malignant neoplasm] Episodic Other aftercare (1 source) Encounter for follow-up examination after completed treatment for malignant neoplasm; Translations: [Encounter for follow-up surveillance of colon cancer] Onset: Episodic Other diseases of kidney and ureters (1 source) Abnormal renal function; Translations: [Disorder of kidney and ureter, unspecified] 07-25-2023 Episodic Other diseases of veins and lymphatics (1 source) Vascular insufficiency; Translations: [Venous insufficiency (chronic) (peripheral)] 12-18-2023 Episodic Other eye disorders (1 source) Abducens nerve palsy; Translations: [Sixth [abducent] nerve palsy, left eye] Episodic Other female genital disorders (1 source) Vaginal bleeding; Translations: [Abnormal uterine and vaginal bleeding, unspecified] 12-11-2022 Chronic Other female genital disorders (3 sources) Vaginal discharge; Translations: [Other specified noninflammatory disorders of vagina] 12-11-2022 Episodic Other female genital disorders (1 source) Finding of contents of uterus; Translations: [Noninflammatory disorder of uterus, unspecified] 12-19-2022 Episodic Other gastrointestinal disorders (20 sources) Malabsorption - iron; Translations: [Intestinal malabsorption, unspecified] Onset: 1 03-01-2020 Chronic Other gastrointestinal disorders (6 sources) Epiploic appendagitis; Translations: [Other specified diseases of intestine] Episodic Other gastrointestinal disorders (1 source) Constipation; Translations: [Constipation, unspecified] 09-21-2023 Episodic Other gastrointestinal disorders (2 sources) Altered bowel function; Translations: [Change in bowel habit] 11-29-2023 Episodic Other hereditary and degenerative nervous system conditions (2 sources) Restless legs; Translations: [Restless legs syndrome] 05-29-2023 Chronic Other liver diseases (1 source) Aspartate aminotransferase serum level raised; Translations: [Elevated AST (SGOT)] 01-23-2024 Episodic Other liver diseases (1 source) Elevated liver enzymes level; Translations: [Abnormal levels of other serum enzymes] 03-03-2024 Episodic Other lower respiratory disease (20 sources) Multiple nodules of lung; Translations: [Other nonspecific abnormal finding of lung field] Episodic Other lower respiratory disease (3 sources) Nodule of lung; Translations: [Solitary pulmonary nodule] Episodic Other nervous system disorders (20 sources) Chronic pain syndrome; Translations: [Chronic pain syndrome] Onset: 0 01-29-2020 Chronic Other nervous system disorders (1 source) Chronic pain syndrome; Translations: [Chronic pain syndrome] Onset: 3 Chronic Other nervous system disorders (1 source) H/O: respiratory disease; Translations: [Personal history of other diseases of the nervous system and sense organs] Episodic Other nervous system disorders (1 source) Numbness of upper limb; Translations: [Anesthesia of skin] 01-23-2024 Episodic Other nervous system disorders (2 sources) Paresthesia of left upper limb; Translations: [Paresthesia of skin] 01-12-2024 Episodic Other non-traumatic joint disorders (12 sources) Hip pain; Translations: [Pain in right hip] 01-10-2020 Episodic Other nutritional; endocrine; and metabolic disorders (20 sources) Metabolic syndrome X; Translations: [Metabolic syndrome] Onset: 6 08-22-2005 Chronic Other nutritional; endocrine; and metabolic disorders (20 sources) Hypercalcemia; Translations: [Hypercalcemia] Onset: 6 03-09-2017 Chronic Other nutritional; endocrine; and metabolic disorders (1 source) Hypercalcemia; Translations: [Hypercalcemia] Onset: 3 Chronic Other nutritional; endocrine; and metabolic disorders (3 sources) Obese class II; Translations: [Obesity, unspecified] 07-27-2023 Chronic Other nutritional; endocrine; and metabolic disorders (1 source) History of iron deficiency; Translations: [Personal history of other endocrine, nutritional and metabolic disease] 05-28-2023 Episodic Other screening for suspected conditions (not mental disorders or infectious disease) (20 sources) Endometrium thickened; Translations: [Abnormal findings on diagnostic imaging of other specified body structures] Onset: 6 12-10-2015 Chronic Other skin disorders (1 source) Eruption; Translations: [Rash and other nonspecific skin eruption] Episodic Residual codes; unclassified (1 source) Upper airway resistance syndrome; Translations: [Other sleep disorders] Chronic Residual codes; unclassified (20 sources) History of partial resection of colon; Translations: [Acquired absence of other specified parts of digestive tract] Onset: 0 01-27-2020 Episodic Residual codes; unclassified (20 sources) History of laparoscopy; Translations: [Other specified postprocedural states] Onset: 1 04-23-2020 Episodic Residual codes; unclassified (2 sources) Bilateral lower limb edema; Translations: [Localized edema] Episodic Rheumatoid arthritis and related disease (20 sources) Rheumatoid arthritis; Translations: [Rheumatoid arthritis, unspecified] Onset: 0 03-26-2009 Chronic Secondary malignancies (20 sources) Secondary malignant neoplasm of liver; Translations: [Secondary malignant neoplasm of liver and intrahepatic bile duct] Onset: 1 04-23-2020 Chronic Secondary malignancies (3 sources) Secondary malignant neoplasm of chest wall; Translations: [Secondary malignant neoplasm of other specified sites] Chronic Secondary malignancies (3 sources) Secondary malignant neoplasm of liver and intrahepatic bile duct; Translations: [Metastases to the liver (HCC)] Onset: 3 Chronic Substance-related disorders (1 source) Opioid dependence, uncomplicated; Translations: [Opioid dependence, uncomplicated] Onset: 5 Chronic Unclassified (1 source) Headaches; Translations: [Headaches] Onset: 3 Unclassified (1 source) Patient encounter status 04-23-2024 Unclassified (1 source) Class 2 obesity; Translations: [Class 2 obesity] Onset: 5 Past or Other Problems Problem Classification Problem Date Documented Da te Episodic/Chronic Abdominal hernia (20 sources) Diaphragmatic hernia; Translations: [Diaphragmatic hernia without obstruction or gangrene] Resolved: 2 02-26-2006 Episodic Abdominal pain (20 sources) Left inguinal pain; Translations: [Left lower quadrant pain] Onset: 1 Resolved: 2 02-17-2020 Episodic Asthma (20 sources) Allergic asthma; Translations: [Unspecified asthma, uncomplicated] Onset: 7 Resolved: 2 12-10-2015 Chronic Blindness and vision defects (20 sources) Diplopia; Translations: [Diplopia] Onset: 3 Episodic Cancer of breast (20 sources) Malignant tumor of breast ; Translations: [Malignant neoplasm of unspecified site of unspecified female breast] Onset: 1 Resolved: 2 02-17-2010 Chronic Comment on above: right breast, lumpec keena and radiation 2011 Cancer of breast (20 sources) History of malignant neoplasm of breast; Translations: [Personal history of malignant neoplasm of breast] Onset: 1 06-02-2021 Episodic Diabetes mellitus without complication (20 sources) Type 2 diabetes mellitus; Translations: [Type 2 diabetes mellitus without complications] Onset: 5 Resolved: 2 01-27-2020 Chronic Diabetes mellitus without complication (20 sources) Impaired fasting glycemia; Translations: [Impaired fasting glucose] Onset: 6 Resolved: 5 09-28-2014 Episodic Disorders of lipid metabolism (20 sources) Pure hypercholesterolemia; Translations: [Pure hypercholesterolemia, unspecified] Onset: 6 Resolved: 2 04-16-2020 Chronic Gastritis and duodenitis (20 sources) Acute gastritis; Translations: [Acute gastritis without bleeding] Onset: 7 Resolved: 2 06-01-2006 Episodic Headache; including migraine (20 sources) Headache; Translations: [Headache] Onset: 3 02-22-2022 Episodic Immunizations and screening for infectious disease (20 sources) Vaccination needed; Translations: [Encounter for immunization] Onset: 9 Resolved: 2 03-13-2018 Episodic Malaise and fatigue (3 sources) Fatigue; Translations: [Other fatigue] Onset: 4 01-01-2024 Episodic Nausea and vomiting (5 sources) Nausea; Translations: [Nausea] Onset: 4 11-29-2023 Episodic Nutritional deficiencies (20 sources) Undernutrition; Translations: [Mild protein-calorie malnutrition] Onset: 0 Resolved: 2 01-27-2020 Chronic Other aftercare (3 sources) long term care social worker (current) use of insulin; Translations: [Type 2 diabetes mellitus with stage 3b chronic kidney disease, with long-term current use of insulin (HCC)] Onset: 2 Episodic Other and unspecified benign neoplasm (20 sources) History of polyp of colon; Translations: [Personal history of colonic polyps] Onset: 6 Resolved: 6 12-02-2015 Episodic Other connective tissue disease (20 sources) Muscle pain; Translations: [Myalgia and myositis, unspecified] Onset: 5 Resolved: 2 01-21-2005 Episodic Other connective tissue disease (20 sources) Left rotator cuff syndrome; Translations: [Unspecified rotator cuff tear or rupture of left shoulder, not specified as traumatic] Onset: 8 Resolved: 2 05-14-2017 Episodic Other diseases of kidney and ureters (20 sources) Cyst of kidney; Translations: [Cyst of kidney, acquired] Onset: 1 04-16-2020 Episodic Other gastrointestinal disorders (1 source) Diarrhea, unspecified; Translations: [Diarrhea, unspecified] Onset: 5 Episodic Other gastrointestinal disorders (1 source) Change in bowel habit; Translations: [Change in bowel habits] Onset: 4 Episodic Other liver diseases (1 source) Abnormal levels of other serum enzymes; Translations: [Elevated liver enzymes] Onset: 5 Episodic Other lower respiratory disease (20 sources) Dyspnea; Translations: [Shortness of breath] Resolved: 5 01-25-2015 Episodic Other lower respiratory disease (1 source) Solitary pulmonary nodule; Translations: [Lung nodule] Onset: 5 Episodic Other lower respiratory disease (2 sources) Other nonspecific abnormal finding of lung field; Translations: [Pulmonary nodules] Onset: 4 Episodic Other nutritional; endocrine; and metabolic disorders (20 sources) Morbid obesity; Translations: [Morbid (severe) obesity due to excess calories] Onset: 0 Resolved: 2 01-27-2020 Chronic Other nutritional; endocrine; and metabolic disorders (20 sources) Hypomagnesemia; Translations: [Hypomagnesemia] Onset: 5 Resolved: 2 01-25-2015 Chronic Other nutritional; endocrine; and metabolic disorders (20 sources) Body mass index 40+ - severely obese; Translations: [Morbid (severe) obesity due to excess calories] Onset: 4 Resolved: 7 04-23-2020 Chronic Other nutritional; endocrine; and metabolic disorders (20 sources) Severe obesity; Translations: [Morbid (severe) obesity due to excess calories] Onset: 1 Resolved: 4 06-02-2021 Chronic Other screening for suspected conditions (not mental disorders or infectious disease) (20 sources) Patient encounter status; Translations: [Encounter for screening mammogram for malignant neoplasm of breast] Onset: 1 Resolved: 6 Episodic Residual codes; unclassified (20 sources) Obstructive sleep apnea syndrome; Translations: [Obstructive sleep apnea (adult) (pediatric)] Onset: 6 Resolved: 2 04-23-2020 Chronic Residual codes; unclassified (20 sources) Family history of malignant neoplasm of gastrointestinal tract; Translations: [Family history of malignant neoplasm of digestive organs] Resolved: 2 02-26-2006 Episodic Residual codes; unclassified (20 sources) Edema; Translations: [Edema, unspecified] Onset: 3 Resolved: 2 03-22-2012 Episodic Residual codes; unclassified (2 sources) Other specified postprocedural states; Translations: [S/P laparoscopic surgery] Onset: 3 Episodic Residual codes; unclassified (2 sources) Acquired absence of other specified parts of digestive tract; Translations: [Status post right hemicolectomy] Onset: 3 Episodic Residual codes; unclassified (20 sources) Family history of cancer of colon; Translations: [Family history of malignant neoplasm of digestive organs] Onset: 6 Resolved: 6 12-02-2015 Episodic Spondylosis; intervertebral disc disorders; other back problems (20 sources) Low back pain; Translations: [Lumbago] Onset: 7 Resolved: 2 08-21-2006 Episodic Results Test Name Value Interpretation Reference Range Facility Basic metabolic 2000 panelOr dered By: Jannet Ledesma on 10-09-2024 Anion gap [Moles/Vol] 6 mmol/L Low 8 - 15 mmol/L [facility] Calcium [Mass/Vol] 10.0 mg/dL 8.5 - 10. 2 mg/dL [facility] Chloride [Moles/Vol] 106 mmol/L 98 - 10 7 mmol/L [facility] CO2 [Moles/Vol] 25 mmol/L 22 - 30 mmol/L [facility] Creatinine [Mass/Vol] 0.93 mg/dL 0.58 - 0.96 mg/dL [facility] GFR/1.73 sq M.predicted among non-blacks MDRD (S/P/Bld) [Vol rate/Area] 64 mL/min/{1.73_m2} - PINF [facility] Comment on above: Estimated Glomerular Filtration Rate (eGFR) is calculated using the 2020 CKD-EPI creatinine equation. This equation utilizes serum creatinine, sex, and age as parameters. The creatinine assay has traceable calibration to isotope dilution-mass spectrometry. Refer to KDIGO guidelines for clinical interpretation. In patients with unstable renal function, e.g. those with acute kidney injury, the eGFR may not accurately reflect actual GFR. Glucose [Mass/Vol] 110 mg/dL High 74 - 99 mg/dL [facility] Comment on above: The [place] [employer] (ADA) provides guidance for cutoff values for fasting glucose and random glucose. The ADA defines fasting as no caloric intake for at least 8 hours. Fasting plasma glucose results between 100 to 125 mg/dL indicate increased risk for diabetes (prediabetes). Fasting plasma glucose results greater than or equal to 126 mg/dL meet the criteria for diagnosis of diabetes. In the absence of unequivocal hyperglycemia, results should be confirmed by repeat testing. In a patient with classic symptoms of hyperglycemia or hyperglycemic crisis, random plasma glucose results greater than or equal to 200 mg/dL meet the criteria for diagnosis of diabetes. Reference: Standards of Medical Care in Diabetes 2016, [employer]. Diabetes Care. 2016.39(Suppl 1). Interpretation and review of laboratory results Abnormal [facility] Potassium [Moles/Vol] 4.4 mmol/L 3.7 - 5.1 mmol/L [facility] Sodium [Moles/Vol] 137 mmol/L 136 - 144 mmol/L [facility] Urea nitrogen [Mass/Vol] 20 mg/dL 7 - 21 mg/dL [facility] CBC W Auto Differential pane l (Bld)on 10-09-2024 Basophils (Bld) [#/Vol] 0.03 10*3/uL NINF [facility] Basophils/100 WBC (Bld) 0.7 % [facility] Differential cell count method Nom (Bld) Auto [facility] Eosinophils (Bld) [#/Vol] 0.07 10*3/uL [facility] Eosinophils/100 WBC (Bld) 1.5 % [facility] Erythrocyte distribution width (RBC) [Ratio] 13.0 % 11.5 - 15.0 % [facility] Hematocrit (Bld) [Volume fraction] 38.3 % 36.0 - 46.0 % [facility] Hemoglobin (Bld) [Mass/Vol] 12.8 g/dL 11.5 - 15.5 g/dL [facility] Immature granulocytes (Bld) [#/Vol] 0.07 10*3/uL [facility] Immature granulocytes/100 WBC (Bld) 1.5 % [facility] Lymphocytes (Bld) [#/Vol] 1.18 10*3/uL [facility] Lymphocytes/100 WBC (Bld) 25.9 % [facility] MCH (RBC) [Entitic mass] 30.4 pg 26.0 - 34.0 pg [facility] MCHC (RBC) [Mass/Vol] 33.4 g/dL 30.5 - 36.0 g/dL [facility] MCV (RBC) [Entitic vol] 91.0 fL 80.0 - 100.0 fL [facility] Monocytes (Bld) [#/Vol] 0.65 10*3/uL [facility] Monocytes/100 WBC (Bld) 14.3 % [facility] Neutrophils (Bld) [#/Vol] 2.55 10*3/uL [facility] Neutrophils/100 WBC (Bld) 56.1 % [facility] Nucleated RBC (Bld) [#/Vol] [facility] Nucleated RBC/100 WBC (Bld) [Ratio] 0.0 % /100 WBC [facility] Platelet mean volume (Bld) [Entitic vol] 10.5 fL 9.0 - 12.7 fL [facility] Platelets (Bld) [#/Vol] 151 10*3/uL [facility] RBC (Bld) [#/Vol] 4.21 10*6/uL 3.90 - 5.20 m/uL [facility] WBC (Bld) [#/Vol] 4.55 10*3/uL [facility] Hepatic function 2000 panelo n 10-09-2024 Albumin [Mass/Vol] 3.9 g/dL 3.9 - 4.9 g/dL [facility] ALP [Catalytic activity/Vol] 85 U/L 34 - 123 U/L [facility] ALT [Catalytic activity/Vol] 17 U/L 7 - 38 U/L [facility] AST [Catalytic activity/Vol] 26 U/L 13 - 35 U/L [facility] Bilirubin [Mass/Vol] 0.3 mg/dL 0.2 - 1 .3 mg/dL [facility] Bilirubin.conjugated [Mass/Vol] 0.1 mg/dL NINF - 0.3 mg/dL [facility] Interpretation and review of laboratory results Normal [facility] Protein [Mass/Vol] 6.3 g/dL 6.3 - 8.0 g/dL [facility] No Panel InformationOrdered By: Jannet Ledesma on 10-09-2024 [facility] Creatinine and Glomerular fi ltration rate.predicted panel (S/P/Bld)Ordered By: Jojo Yang on 07-16-2024 Creatinine [Mass/Vol] 0.97 mg/dL High 0.58 - 0.96 mg/dL [facility] GFR/1.73 sq M.predicted among non-blacks MDRD (S/P/Bld) [Vol rate/Area] 61 mL/min/{1.73_m2} - PINF [facility] Comment on above: Estimated Glomerular Filtration Rate (eGFR) is calculated using the 2020 CKD-EPI creatinine equation. This equation utilizes serum creatinine, sex, and age as parameters. The creatinine assay has traceable calibration to isotope dilution-mass spectrometry. Refer to KDIGO guidelines for clinical interpretation. In patients with unstable renal function, e.g. those with acute kidney injury, the eGFR may not accurately reflect actual GFR. Interpretation and review of laboratory results Abnormal [facility] Absolute lymphocyte countOrd ered By: ESTEFANI WILLARD on 07-07-2024 Lymphocytes Auto (Unsp spec) [#/Vol] 1.74 10*3/uL 0.83-4.51 [facility] Absolute neutrophil countOrd ered By: ESTEFANI WILLARD on 07-07-2024 Neutrophils (Bld) [#/Vol] 5.0 10*3/uL 2.0-7.7 [facility] Anion gap in Serum or Plasma Ordered By: ESTEFANI WILLARD on 07-07-2024 Anion gap [Moles/Vol] 8 mmol/L 5-15 [facility] Automated lymphocyte count a s percentage of total leukocytesOrdered By: ESTEFANI WILLARD on 07-07-2024 Lymphocytes/100 WBC Auto (Unsp spec) 22.8 % 19- [facility] BUN/creatinine ratioOrdered By: ESTEFANI WILLARD on 07-07-2024 Urea nitrogen/Creatinine [Mass ratio] 24.1 mg/mg High 10-20 [facility] Basophil percentageOrdered B y: ESTEFANI WILLARD on 07-07-2024 Basophils/100 WBC (Bld) 0.4 % 0-1 [facility] Bilirubin, totalOrdered By: ESTEFANI WILLARD on 07-07-2024 Bilirubin [Mass/Vol] 0.37 mg/dL 0.00-1.30 [facility] CBC W/Diff, Automatedon Absolute Lymph 1.74 X10 3/uL Normal 0.83-4.51 [facility] Comment on above: Order Comment: RUN L OWEST TEST UNK Performed By: #### L 3410.9992, L505.5000 #### [facility] [address] [place], [address] Absolute Neut 5.0 X10 3/uL Normal 2.0-7.7 [facility] Comment on above: Order Comment: RUN L OWEST TEST UNK Performed By: #### L 3410.9992, L505.5000 #### [facility] [address] [place], [address] Basophils/100 WBC (Bld) 0.4 % Normal 0-1 [facility] Comment on above: Order Comment: RUN L OWEST TEST UNK Performed By: #### L 3410.9992, L505.5000 #### [facility] [address] [place], [address] Eosinophils/100 WBC (Bld) 0.9 % Normal 0-5 [facility] Comment on above: Order Comment: RUN L OWEST TEST UNK Performed By: #### L 3410.9992, L505.5000 #### [facility] [address] [place], [address] Erythrocyte distribution width (RBC) [Ratio] 12.6 % Normal 11.6-14.6 [facility] Comment on above: Order Comment: RUN L OWEST TEST UNK Performed By: #### L 3410.9992, L505.5000 #### [facility] [address] [place], [address] Hematocrit (Bld) [Volume fraction] 40.4 % Normal 37-47 [facility] Comment on above: Order Comment: RUN L OWEST TEST UNK Performed By: #### L 3410.9992, L505.5000 #### [facility] [address] [place], [address] Hemoglobin (Bld) [Mass/Vol] 13.6 g/dL Normal 12.0-15.0 [facility] Comment on above: Order Comment: RUN L OWEST TEST UNK Performed By: #### L 3410.9992, L505.5000 #### [facility] [address] [place], [address] IG% 0.500 Normal 0.0-0.9 [facility] Comment on above: Order Comment: RUN L OWEST TEST UNK Result Comment: IG% - Immature Granulocytes (promyelocytes, myelocytes and metamyelocytes) > 1% indicates that a LEFT SHIFT is Present. Performed By: #### L 3410.9992, L505.5000 #### [facility] [address] [place], [address] Lymphocytes/100 WBC (Bld) 22.8 % Normal 19-41 [facility] Comment on above: Order Comment: RUN L OWEST TEST UNK Performed By: #### L 3410.9992, L505.5000 #### [facility] [address] [place], [address] MCH (RBC) [Entitic mass] 30.6 pg Normal 27.0-32.0 [facility] Comment on above: Order Comment: RUN L OWEST TEST UNK Performed By: #### L 3410.9992, L505.5000 #### [facility] [address] [place], [address] MCHC (RBC) [Mass/Vol] 33.7 g/dL Normal 32-36 [facility] Comment on above: Order Comment: RUN L OWEST TEST UNK Performed By: #### L 3410.9992, L505.5000 #### [facility] [address] [place], [address] MCV (RBC) [Entitic vol] 91.0 fL Normal 81-99 [facility] Comment on above: Order Comment: RUN L OWEST TEST UNK Performed By: #### L 3410.9992, L505.5000 #### [facility] [address] [place], [address] Monocytes/100 WBC (Bld) 10.2 % High 0-10 [facility] Comment on above: Order Comment: RUN L OWEST TEST UNK Performed By: #### L 3410.9992, L505.5000 #### [facility] [address] [place], [address] Neutrophils/100 WBC (Bld) 65.2 % Normal 47-70 [facility] Comment on above: Order Comment: RUN L OWEST TEST UNK Performed By: #### L 3410.9992, L505.5000 #### [facility] [address] [place], [address] Nucleated RBC (Bld) [#/Vol] 0 10*3/uL Normal 0-5 [facility] Comment on above: Order Comment: RUN L OWEST TEST UNK Performed By: #### L 3410.9992, L505.5000 #### [facility] [address] [place], [address] Platelet mean volume (Bld) [Entitic vol] 11.0 fL Normal 6.2-12.0 [facility] Comment on above: Order Comment: RUN L OWEST TEST UNK Performed By: #### L 3410.9992, L505.5000 #### [facility] [address] [place], [address] Platelets (Bld) [#/Vol] 184 10*3/uL Normal 150-450 [facility] Comment on above: Order Comment: RUN L OWEST TEST UNK Performed By: #### L 3410.9992, L505.5000 #### [facility] [address] [place], [address] RBC (Bld) [#/Vol] 4.44 10*6/uL Normal 4.2-5.4 [facility] Comment on above: Order Comment: RUN L OWEST TEST UNK Performed By: #### L 3410.9992, L505.5000 #### [facility] [address] [place], [address] RDW SD 41.9 fl Normal 35.1-43.9 [facility] Comment on above: Order Comment: RUN L OWEST TEST UNK Performed By: #### L 3410.9992, L505.5000 #### [facility] [address] [place], [address] WBC (Bld) [#/Vol] 7.6 10*3/uL Normal 4.4-11.0 [facility] Comment on above: Order Comment: RUN L OWEST TEST UNK Performed By: #### L 3410.9992, L505.5000 #### [facility] [address] [place], [address] Carbon dioxide, total [Moles /volume] in Central venous bloodOrdered By: ESTEFANI WILLARD on 07-07-2024 CO2 [Moles/Vol] 29.2 mmol/L 21.0-32.0 [facility] Chloride assayOrdered By: SIENA WILLARD on 07-07-2024 Chloride [Moles/Vol] 101 mmol/L 98-108 [facility] Comprehensive Metabolic Prof ilon 07-07-2024 Albumin [Mass/Vol] 4.0 g/dL Normal 3.4-4.8 [facility] Comment on above: Order Comment: RUN L OWEST TEST UNK Performed By: #### L 3410.9992, L505.5000 #### [facility] [address] [place], [address] Albumin/Globulin [Mass ratio] 1.5 {ratio} Normal 0.9-2.4 [facility] Comment on above: Order Comment: RUN L OWEST TEST UNK Performed By: #### L 3410.9992, L505.5000 #### [facility] [address] [place], [address] ALK PHOS 91 U/L Normal 35-104 [facility] Comment on above: Order Comment: RUN L OWEST TEST UNK Performed By: #### L 3410.9992, L505.5000 #### [facility] [address] [place], [address] ALT [Catalytic activity/Vol] 21 U/L Normal <=34 [facility] Comment on above: Order Comment: RUN L OWEST TEST UNK Performed By: #### L 3410.9992, L505.5000 #### [facility] [address] [place], [address] AST [Catalytic activity/Vol] 28 U/L Normal <=31 [facility] Comment on above: Order Comment: RUN L OWEST TEST UNK Performed By: #### L 3410.9992, L505.5000 #### [facility] [address] [place], [address] Bilirubin [Mass/Vol] 0.37 mg/dL Normal 0.00-1.30 [facility] Comment on above: Order Comment: RUN L OWEST TEST UNK Performed By: #### L 3410.9992, L505.5000 #### [facility] [address] [place], [address] BUN/CRE 24.1 RATIO High 10-20 [facility] Comment on above: Order Comment: RUN L OWEST TEST UNK Performed By: #### L 3410.9992, L505.5000 #### [facility] [address] [place], [address] Calcium [Mass/Vol] 10.1 mg/dL Normal 7.6-11.0 [facility] Comment on above: Order Comment: RUN L OWEST TEST UNK Performed By: #### L 3410.9992, L505.5000 #### [facility] [address] [place], [address] Chloride [Moles/Vol] 101 mmol/L Normal 98-108 [facility] Comment on above: Order Comment: RUN L OWEST TEST UNK Performed By: #### L 3410.9992, L505.5000 #### [facility] [address] [place], [address] CO2 [Moles/Vol] 29.2 mmol/L Normal 21.0-32.0 [facility] Comment on above: Order Comment: RUN L OWEST TEST UNK Performed By: #### L 3410.9992, L505.5000 #### [facility] [address] [place], [address] Creatinine [Mass/Vol] 1.20 mg/dL Normal 0.70-1.20 [facility] Comment on above: Order Comment: RUN L OWEST TEST UNK Performed By: #### L 3410.9992, L505.5000 #### [facility] [address] [place], [address] GAP 8 Normal 5-15 [facility] Comment on above: Order Comment: RUN L OWEST TEST UNK Performed By: #### L 3410.9992, L505.5000 #### [facility] [address] [place], [address] GFR/1.73 sq M.predicted among non-blacks MDRD (S/P/Bld) [Vol rate/Area] 47 mL/min/{1.73_m2} Low >60 [facility] Comment on above: Order Comment: RUN L OWEST TEST UNK Result Comment: mL/m in/1.73m2 CKD-EPI Creatinine Equation (2020) Performed By: #### L 3410.9992, L505.5000 #### [facility] [address] [place], [address] Globulin (S) [Mass/Vol] 2.6 g/dL Normal 2.2-4.2 [facility] Comment on above: Order Comment: RUN L OWEST TEST UNK Performed By: #### L 3410.9992, L505.5000 #### [facility] [address] [place], [address] Glucose [Mass/Vol] 93 mg/dL Normal 70-99 [facility] Comment on above: Order Comment: RUN L OWEST TEST UNK Performed By: #### L 3410.9992, L505.5000 #### [facility] [address] [place], [address] Potassium [Moles/Vol] 4.6 mmol/L Normal 3.3-5.1 [facility] Comment on above: Order Comment: RUN L OWEST TEST UNK Performed By: #### L 3410.9992, L505.5000 #### [facility] [address] [place], [address] Sodium [Moles/Vol] 138 mmol/L Normal 133-145 [facility] Comment on above: Order Comment: RUN L OWEST TEST UNK Performed By: #### L 3410.9992, L505.5000 #### [facility] [address] [place], [address] T PROT 6.5 g/dL Normal 5.9-8.4 [facility] Comment on above: Order Comment: RUN L OWEST TEST UNK Performed By: #### L 3410.9992, L505.5000 #### [facility] [address] [place], [address] Urea nitrogen [Mass/Vol] 29 mg/dL High 4-19 [facility] Comment on above: Order Comment: RUN L OWEST TEST UNK Performed By: #### L 3410.9992, L505.5000 #### [facility] [address] [place], [address] Eosinophil percentageOrdered By: ESTEFANI WILLARD on 07-07-2024 Eosinophils/100 WBC (Bld) 0.9 % 0-5 [facility] Erythrocyte distribution wid th ratioOrdered By: ESTEFANI WILLARD on 07-07-2024 Erythrocyte distribution width (RBC) [Ratio] 12.6 % 11.6-14.6 [facility] Erythrocyte distribution wid th standard deviationOrdered By: ESTEFANI WILLARD on 07-07-2024 Erythrocyte distribution width (RBC) [Ratio] 41.9 fl 35.1-43.9 [facility] Glomerular filtration rate ( GFR) estimation/1.73 sq m using serum, plasma, or whole bOrdered By: ESTEFANI WILLARD on 07-07-2024 GFR/1.73 sq M.predicted among non-blacks MDRD (S/P/Bld) [Vol rate/Area] 47 mL/min/{1.73_m2} Low >60 [facility] Comment on above: mL/min/1.73m2 CKD-EP I Creatinine Equation (2020) Hematocrit Auto (Bld) [Volum e fraction]Ordered By: ESTEFANI WILLARD on 07-07-2024 Hematocrit (Bld) [Volume fraction] 40.4 % 37-47 [facility] Hemoglobin A1con 07-07-2024 HbA1c (Bld) [Mass fraction] 6.3 % High <=5.6 [facility] Comment on above: Order Comment: RUN L OWEST TEST UNK Result Comment: Norm al < 5.7 % Prediabetic 5.7 - 6.4 % Diabetic >or= 6.5 % Please note range changes. Performed By: #### L 3410.9992, L505.5000 #### [facility] [address] [place], [address] Hemoglobin A1c percentageOrd ered By: ESTEFANI WILLRAD on 07-07-2024 HbA1c (Bld) [Mass fraction] 6.3 % High <5.7 [facility] Comment on above: Normal < 5.7 % Predi abetic 5.7 - 6.4 % Diabetic >or= 6.5 % Please note range changes. Hemoglobin measurementOrdere d By: ESTEFANI WILLARD on 07-07-2024 Hemoglobin (Bld) [Mass/Vol] 13.6 g/dL 12.0-15.0 [facility] Immature granulocytes/100 WB C Auto (Bld)Ordered By: ESTEFANI WILLARD on 07-07-2024 Immature granulocytes/100 WBC (Bld) 0.500 % 0.0-0.9 [facility] Comment on above: IG% - Immature Granu locytes (promyelocytes, myelocytes and metamyelocytes) > 1% indicates that a LEFT SHIFT is Present. Laboratory - Chemistry and C hemistry - challengeOrdered By: ESTEFANI WILLARD on 07-07-2024 AST [Catalytic activity/Vol] 28 U/L <32 [facility] MCV (mean corpuscular volume ) determinationOrdered By: ESTEFANI WILLARD on 07-07-2024 MCV (RBC) [Entitic vol] 91.0 fL 81-99 [facility] Mean corpuscular hemoglobin (MCH) determinationOrdered By: ESTEFANI WILLARD on 07-07-2024 MCH (RBC) [Entitic mass] 30.6 pg 27.0-32.0 [facility] Mean corpuscular hemoglobin concentration (MCHC) determinationOrdered By: ESTEFANI WILLARD on 07-07-2024 MCHC (RBC) [Mass/Vol] 33.7 g/dL 32-36 [facility] Mean platelet volume determi nationOrdered By: ESTEFANI WILLARD on 07-07-2024 Platelet mean volume (Bld) [Entitic vol] 11.0 fL 6.2-12.0 [facility] Monocyte percentageOrdered B y: ESTEFANI WILLARD on 07-07-2024 Monocytes/100 WBC (Bld) 10.2 % High 0-10 [facility] Neutrophil percentageOrdered By: ESTEFANI WILLARD on 07-07-2024 Neutrophils/100 WBC (Bld) 65.2 % 47-70 [facility] Nucleated red blood cell per centageOrdered By: ESTEFANI WILLARD on 07-07-2024 Nucleated RBC/100 WBC (Bld) [Ratio] 0 % 0-5 [facility] Platelet countOrdered By: SIENA WILLARD on 07-07-2024 Platelets (Bld) [#/Vol] 184 10*3/uL 150-450 [facility] Potassium measurement (mass/ volume)Ordered By: ESTEFANI WILLARD on 07-07-2024 Potassium (Unsp spec) [Mass/Vol] 4.6 mmol/L 3.3-5.1 [facility] RBC Auto (Bld) [#/Vol]Ordere d By: ESTEFANI WILLARD on 07-07-2024 RBC (Bld) [#/Vol] 4.44 10*6/uL 4.2-5.4 [facility] Serum creatinine measurement (mass/volume)Ordered By: ESTEFANI WILLARD on 07-07-2024 Creatinine [Mass/Vol] 1.20 mg/dL 0.70-1.20 [facility] Serum globulin measurementOr dered By: ESTEFANI WILLARD on 07-07-2024 Globulin (S) [Mass/Vol] 2.6 g/dL 2.2-4.2 [facility] Serum glucose measurement (m ass/volume)Ordered By: ESTEFANI WILLARD on 07-07-2024 Glucose [Mass/Vol] 93 mg/dL 70-99 [facility] Serum or plasma alanine cox otransferase (ALT) measurementOrdered By: ESTEFANI WILLARD on 07-07-2024 ALT [Catalytic activity/Vol] 21 U/L <35 [facility] Serum or plasma albumin fredrick urement (mass/volume)Ordered By: ESTEFANI WILLARD on 07-07-2024 Albumin [Mass/Vol] 4.0 g/dL 3.4-4.8 [facility] Serum or plasma albumin/glob ulin mass ratioOrdered By: ESTEFANI SHEYLA on 07-07-2024 Albumin/Globulin [Mass ratio] 1.5 {ratio} 0.9-2.4 [facility] Serum or plasma alkaline maynor sphatase measurementOrdered By: ESTEFANI SHEYLA on 07-07-2024 ALP [Catalytic activity/Vol] 91 U/L 35-104 [facility] Serum or plasma calcium fredrick urement (mass/volume)Ordered By: ESTEFANI WILLARD on 07-07-2024 Calcium [Mass/Vol] 10.1 mg/dL 7.6-11.0 [facility] Serum or plasma urea nitroge n measurement (mass/volume)Ordered By: ESTEFANI WILLARD on 07-07-2024 Urea nitrogen [Mass/Vol] 29 mg/dL High 4-19 [facility] Sodium levelOrdered By: ESTEFANI WILLARD on 07-07-2024 Sodium [Moles/Vol] 138 mmol/L 133-145 [facility] Total proteinOrdered By: ESTEFANI WILLARD on 07-07-2024 Protein [Mass/Vol] 6.5 g/dL 5.9-8.4 [facility] White blood cell (WBC) count Ordered By: ESTEFANIAnuja WILLARD on 07-07-2024 WBC (Bld) [#/Vol] 7.6 10*3/uL 4.4-11.0 [facility] [id number] 05-28-2024 [facility] Misc. COMMENT Normal . [facility] Comment on above: Order Comment: [id number] URINE TOX Result Comment: Perf ormed at: - [facility] [address] [id number] Supervisor Photostat: Herman Goodwin PhD, Phone: [phone] Performed By: #### L 7087.9665, E855.8622 #### [facility] [place], [address] Amphetamine detection with 1 000 ng/mL as cutoffOrdered By: Cesilia Brown on 05-26-2024 Amphetamines Screen method >1000 ng/mL Ql (U) Negative < 200 ng/mL [facility] Amphetamines Screen method > 1000 ng/mL Ql (U)Ordered By: Cesilia Brown on 05-26-2024 Amphetamines Ql (U) Negative <1000 ng/mL [facility] Urine Barbiturates Screen Negative < 200 ng/mL [facility] Methadone, urineOrdered By: Cesilia Brown on 05-26-2024 Urine Methadone Screen Negative < 300 ng/mL [facility] Miscellaneous procedureOrder ed By: Cesilia Brown on 05-26-2024 Miscellaneous Test COMMENT . [facility] Comment on above: Performed at: [address] [id number] Director: Herman Goodwin PhD, Phone: [phone] No Panel InformationOrdered By: Cesilia Brown on 05-26-2024 Urine Buprenorphine Qualitative Negative < 200 ng/mL [facility] Urine Oxycodone Screen Negative < 100 ng/mL [facility] Quantitative urine opiates m easurementOrdered By: Cseilia Brown on 05-26-2024 Opiates Ql (U) Positive < 300 ng/mL [facility] Comment on above: If confirmation test ing is needed, a separate order will be required to send out testing to the reference laboratory. Screening urine fentanyl tereza surementOrdered By: Cesilia Brown on 05-26-2024 fentaNYL Screen Ql (U) Negative [facility] Urine Drug Screen (VIST[facility])on 05-26-2024 AMPHETAMINES Negative Normal <1000 ng/mL [facility] Comment on above: Order Comment: RUN L OWEST TEST UNK Performed By: #### L 3410.9992, L505.5000 #### [facility] [address] [facility] [address] BARBITIURATES Negative Normal < 200 ng/mL [facility] Comment on above: Order Comment: RUN L OWEST TEST UNK Performed By: #### L 3410.9992, L505.5000 #### [facility] [address] [place], [address] BENZODIAZIPINE Negative Normal < 200 ng/mL [facility] Comment on above: Order Comment: RUN L OWEST TEST UNK Performed By: #### L 3410.9992, L505.5000 #### [facility] [address] [facility] [address] BUP Ur Drug Scr Negative Normal < 200 ng/mL [facility] Comment on above: Order Comment: RUN L OWEST TEST UNK Performed By: #### L 3410.9992, L505.5000 #### [facility] [address] [place] [address] COCAINE Negative Normal < 300 ng/mL [facility] Comment on above: Order Comment: RUN L OWEST TEST UNK Performed By: #### L 3410.9992, L505.5000 #### [facility] [address] [place] [address] Fentanyl Negative Normal [facility] Comment on above: Order Comment: RUN L OWEST TEST UNK Performed By: #### L 3410.9992, L505.5000 #### [facility] [address] [place] [address] METHADONE Negative Normal < 300 ng/mL [facility] Comment on above: Order Comment: RUN L OWEST TEST UNK Performed By: #### L 3410.9992, L505.5000 #### [facility] [address] [facility] [address] OPIATES Positive Normal < 300 ng/mL [facility] Comment on above: Order Comment: RUN L OWEST TEST UNK Result Comment: If c onfirmation testing is needed, a separate order will be required to send out testing to the reference laboratory. Performed By: #### L 3410.9992, L505.5000 #### [facility] [address] [facility] [address] OXYCODONE Negative Normal < 100 ng/mL [facility] Comment on above: Order Comment: RUN L OWEST TEST UNK Performed By: #### L 3410.9992, L505.5000 #### [facility] [address] [place], [address] PCP Negative Normal < 25 ng/mL [facility] Comment on above: Order Comment: RUN L OWEST TEST UNK Performed By: #### L 3410.9992, L505.5000 #### [facility] [address] [place], [address] THC Negative Normal < 50 ng/mL [facility] Comment on above: Order Comment: RUN L OWEST TEST UNK Performed By: #### L 3410.9992, L505.5000 #### [facility] [address] [place], [address] Urine benzodiazepine levelOr dered By: Cesilia Brown on 05-26-2024 Benzodiazepines Ql (U) Negative < 200 ng/mL [facility] Urine cocaine levelOrdered B y: Cesilia Brown on 05-26-2024 Cocaine Ql (U) Negative < 300 ng/mL [facility] Urine [id number] abinol (THC) measurementOrdered By: Cesilia Brown on 05-26-2024 Cannabinoids Screen Ql (U) Negative < 50 ng/mL [facility] Urine phencyclidine (PCP) de tectionOrdered By: Cesilia Brown on 05-26-2024 Phencyclidine Ql (U) Negative < 25 ng/mL [facility] fentaNYL Screen Ql (U)Ordere d By: Cesilia Brown on 05-26-2024 Urine Fentanyl Screen Negative [facility] Basic metabolic 2000 panelOr dered By: Jojo Yang on 04-08-2024 Anion gap [Moles/Vol] 7 mmol/L Low 8 - 15 mmol/L [facility] Calcium [Mass/Vol] 9.9 mg/dL 8.5 - 10. 2 mg/dL [facility] Chloride [Moles/Vol] 105 mmol/L 98 - 10 7 mmol/L [facility] CO2 [Moles/Vol] 26 mmol/L 22 - 30 mmol/L [facility] Creatinine [Mass/Vol] 0.94 mg/dL 0.58 - 0.96 mg/dL [facility] GFR/1.73 sq M.predicted among non-blacks MDRD (S/P/Bld) [Vol rate/Area] 63 mL/min/{1.73_m2} - PINF [facility] Comment on above: Estimated Glomerular Filtration Rate (eGFR) is calculated using the 2020 CKD-EPI creatinine equation. This equation utilizes serum creatinine, sex, and age as parameters. The creatinine assay has traceable calibration to isotope dilution-mass spectrometry. Refer to KDIGO guidelines for clinical interpretation. In patients with unstable renal function, e.g. those with acute kidney injury, the eGFR may not accurately reflect actual GFR. Glucose [Mass/Vol] 94 mg/dL 74 - 99 mg/dL [facility] Comment on above: The [place] [employer] Association (ADA) provides guidance for cutoff values for fasting glucose and random glucose. The ADA defines fasting as no caloric intake for at least 8 hours. Fasting plasma glucose results between 100 to 125 mg/dL indicate increased risk for diabetes (prediabetes). Fasting plasma glucose results greater than or equal to 126 mg/dL meet the criteria for diagnosis of diabetes. In the absence of unequivocal hyperglycemia, results should be confirmed by repeat testing. In a patient with classic symptoms of hyperglycemia or hyperglycemic crisis, random plasma glucose results greater than or equal to 200 mg/dL meet the criteria for diagnosis of diabetes. Reference: Standards of Medical Care in Diabetes 2016, [employer]. Diabetes Care. 2016.39(Suppl 1). Interpretation and review of laboratory results Abnormal [facility] Potassium [Moles/Vol] 4.4 mmol/L 3.7 - 5.1 mmol/L [facility] Sodium [Moles/Vol] 138 mmol/L 136 - 144 mmol/L [facility] Urea nitrogen [Mass/Vol] 34 mg/dL High 7 - 21 mg/dL [facility] CBC W Auto Differential pane l (Bld)on 04-08-2024 Basophils (Bld) [#/Vol] 0.04 10*3/uL [facility] Basophils/100 WBC (Bld) 0.7 % [facility] Differential cell count method Nom (Bld) Auto [facility] Eosinophils (Bld) [#/Vol] 0.11 10*3/uL [facility] Eosinophils/100 WBC (Bld) 1.8 % [facility] Erythrocyte distribution width (RBC) [Ratio] 13.1 % 11.5 - 15.0 % [facility] Hematocrit (Bld) [Volume fraction] 37.9 % 36.0 - 46.0 % [facility] Hemoglobin (Bld) [Mass/Vol] 12.6 g/dL 11.5 - 15.5 g/dL [facility] Immature granulocytes (Bld) [#/Vol] 0.1 10*3/uL [facility] Immature granulocytes/100 WBC (Bld) 1.6 % [facility] Interpretation and review of laboratory results Abnormal [facility] Lymphocytes (Bld) [#/Vol] 1.62 10*3/uL [facility] Lymphocytes/100 WBC (Bld) 26.5 % [facility] MCH (RBC) [Entitic mass] 30.4 pg 26.0 - 34.0 pg [facility] MCHC (RBC) [Mass/Vol] 33.2 g/dL 30.5 - 36.0 g/dL [facility] MCV (RBC) [Entitic vol] 91.3 fL 80.0 - 100.0 fL [facility] Monocytes (Bld) [#/Vol] 0.64 10*3/uL [facility] Monocytes/100 WBC (Bld) 10.5 % [facility] Neutrophils (Bld) [#/Vol] 3.61 10*3/uL [facility] Neutrophils/100 WBC (Bld) 58.9 % [facility] Nucleated RBC (Bld) [#/Vol] [facility] Nucleated RBC/100 WBC (Bld) [Ratio] 0 % /100 WBC [facility] Platelet mean volume (Bld) [Entitic vol] 10.8 fL 9.0 - 12.7 fL [facility] Platelets (Bld) [#/Vol] 170 10*3/uL [facility] RBC (Bld) [#/Vol] 4.15 10*6/uL 3.90 - 5.20 m/uL [facility] WBC (Bld) [#/Vol] 6.12 10*3/uL [facility] Hepatic function 2000 panelo n 04-08-2024 Albumin [Mass/Vol] 3.8 g/dL Low 3.9 - 4.9 g/dL [facility] ALP [Catalytic activity/Vol] 96 U/L 34 - 123 U/L [facility] ALT [Catalytic activity/Vol] 29 U/L 7 - 38 U/L [facility] AST [Catalytic activity/Vol] 31 U/L 13 - 35 U/L [facility] Bilirubin [Mass/Vol] 0.3 mg/dL 0.2 - 1 .3 mg/dL [facility] Bilirubin.conjugated [Mass/Vol] 0.1 mg/dL NINF - 0.3 mg/dL [facility] Interpretation and review of laboratory results Abnormal [facility] Protein [Mass/Vol] 6.4 g/dL 6.3 - 8.0 g/dL [facility] MG stereo Guidance for biops y of Breast - righton 04-03-2024 IMPRESSION: STEREOTA CTIC GUIDED BIOPSY Site 1: Stereotactic biopsy of calcifications located in the right breast in the upper outer quadrant with placement of a stoplight biopsy marker. Procedure was successful. Waiting for pathology result. An amendment will be issued to this report when pathology results become available. The stoplight biopsy marker is displaced 5 cm lateral and 2 cm superior to the calcifications. The specimen radiograph includes calcifications. Interpreting Radiologist: Zoë Parry M.D. Electronically signed on: 04/03/2024 Pairer Inspector: JESSICA Transcribe Date/Time: Apr 03 2024 11:42A Dictated by : ZOË PARRY MD This examination was interpreted and the report reviewed and electronically signed by: ZOË PARRY MD on Apr 03 2024 1:41PM [facility] DIVISION OF RADIOLOGY * * *Final Report* * * DATE OF EXAM: Apr 03 2024 1:35PM [facility] [place] 0631 - TRENT STEREO BX BREAST RT / PROCEDURE REASON: Abnormal finding on radiology exam * * * * Physician Interpretation * * * * RESULT: [place] [address] #[id number] - TRENT STEREO BX BREAST RT HISTORY: 73 year old patient presents for a stereotactic biopsy of the following: Site 1: Calcifications located in the right breast in the upper outer quadrant PATIENT CONSENT: A time out was performed immediately prior to procedure start with the radiology team, correctly identifying the patient name, date of , procedure, anatomy (including marking of site and side), patient position, relevant diagnostic and radiology test results, safety precautions, and procedure-specific equipment needs. The procedure, along with the risks (including, but not limited to, infection and bleeding), benefits, and alternatives, was explained to the patient by the performing physician. The patient agreed to undergo the procedure. Medications and allergies were also reviewed. The radiologist and technologist were present throughout the entire procedure. PROCEDURE: Correlation is made to exams dated: 06/01/2021 (mammogram), 06/09/2022 (mammogram), 06/12/2023 (mammogram), 07/11/2023 (mammogram) and 01/15/2024 (mammogram). Site 1: Calcifications located in the right breast in the upper outer quadrant Audible Time Out: 1212 Procedure Start: 1213 Procedure End: 1217 A stereotactic biopsy was performed for the calcifications located in the right breast in the upper outer quadrant. This was described on the previous mammography report. The skin was prepped in the usual manner. The abnormality was approached from the lateral aspect using a prone table. 15 ml of local anesthetic agent was administered. A skin aime was made in the breast. A 9 gauge biopsy needle was placed adjacent to the calcifications under computer guidance and confirmatory stereotactic mammography images were obtained to document needle placement. Once the needle was documented to be in the correct location, 6 samples were obtained using the vacuum-assisted system. A stoplight biopsy marker was then placed under mammogram guidance. A skin closure strip and a sterile dressing were applied to the access site. There were no biopsy complications observed. The specimen was sent to the laboratory for pathological analysis. Post-procedure mammogram: The stoplight biopsy marker is displaced 5 cm lateral and 2 cm superior to the calcifications. There are few residual calcifications at site of biopsy. Post-procedure mammogram density: The breasts are heterogeneously dense, which may obscure small masses. DIVISION OF RADIOLOGY Provider, [facility] - 04/03/2024 * * *Final Report* * * DATE OF EXAM: Apr 03 2024 1:35PM [facility] 0631 - TRENT STEREO BX BREAST RT / PROCEDURE REASON: Abnormal finding on radiology exam * * * * Physician Interpretation * * * * RESULT: [address] [place] [address] #[id number] - [facility] STEREO BX BREAST RT HISTORY: 73 year old patient presents for a stereotactic biopsy of the following: Site 1: Calcifications located in the right breast in the upper outer quadrant PATIENT CONSENT: A time out was performed immediately prior to procedure start with the radiology team, correctly identifying the patient name, date of , procedure, anatomy (including marking of site and side), patient position, relevant diagnostic and radiology test results, safety precautions, and procedure-specific equipment needs. The procedure, along with the risks (including, but not limited to, infection and bleeding), benefits, and alternatives, was explained to the patient by the performing physician. The patient agreed to undergo the procedure. Medications and allergies were also reviewed. The radiologist and technologist were present throughout the entire procedure. PROCEDURE: Correlation is made to exams dated: 06/01/2021 (mammogram), 06/09/2022 (mammogram), 06/12/2023 (mammogram), 07/11/2023 (mammogram) and 01/15/2024 (mammogram). Site 1: Calcifications located in the right breast in the upper outer quadrant Audible Time Out: 1212 Procedure Start: 1213 Procedure End: 1217 A stereotactic biopsy was performed for the calcifications located in the right breast in the upper outer quadrant. This was described on the previous mammography report. The skin was prepped in the usual manner. The abnormality was approached from the lateral aspect using a prone table. 15 ml of local anesthetic agent was administered. A skin aime was made in the breast. A 9 gauge biopsy needle was placed adjacent to the calcifications under computer guidance and confirmatory stereotactic mammography images were obtained to document needle placement. Once the needle was documented to be in the correct location, 6 samples were obtained using the vacuum-assisted system. A stoplight biopsy marker was then placed under mammogram guidance. A skin closure strip and a sterile dressing were applied to the access site. There were no biopsy complications observed. The specimen was sent to the laboratory for pathological analysis. Post-procedure mammogram: The stoplight biopsy marker is displaced 5 cm lateral and 2 cm superior to the calcifications. There are few residual calcifications at site of biopsy. Post-procedure mammogram density: The breasts are heterogeneously dense, which may obscure small masses. IMPRESSION IMPRESSION: STEREOTACTIC GUIDED BIOPSY Site 1: Stereotactic biopsy of calcifications located in the right breast in the upper outer quadrant with placement of a stoplight biopsy marker. Procedure was successful. Waiting for pathology result. An amendment will be issued to this report when pathology results become available. The stoplight biopsy marker is displaced 5 cm lateral and 2 cm superior to the calcifications. The specimen radiograph includes calcifications. Interpreting Radiologist: Zoë Parry M.D. Electronically signed on: 04/03/2024 Pairer Inspector: JESSICA Transcribe Date/Time: Apr 03 2024 11:42A Dictated by : ZOË PARRY MD This examination was interpreted and the report reviewed and electronically signed by: ZOË PARRY MD on Apr 03 2024 1:41PM EST [facility] Radiology Study observation (narrative) [facility] MG stereo Guidance for biops y of Breast - rightOrdered By: [facility] Provider on 04-03-2024 [facility] Absolute neutrophil countOrd ered By: Meghan Velez on 03-09-2024 Neutrophils (Bld) [#/Vol] 5.2 10*3/uL 2.0-7.7 [facility] Albumin to globulin ratioOrd ered By: Meghan Velez on 03-09-2024 Albumin/Globulin [Mass ratio] 0.9 {ratio} 0.9-2.4 [facility] Basophil percentageOrdered B y: Meghan Velez on 03-09-2024 Basophils/100 WBC (Bld) 0.2 % 0-1 [facility] Bilirubin, totalOrdered By: Meghan Velez on 03-09-2024 Bilirubin [Mass/Vol] 0.40 mg/dL 0.20-1.00 [facility] Comment on above: For patients on eltr ombopag therapy, use of Dimension [place] TBIL is not recommended. Blood urea nitrogen (BUN)/cr eatinine ratioOrdered By: Meghan Velez on 03-09-2024 Urea nitrogen/Creatinine [Mass ratio] 27.0 mg/mg High 10-20 [facility] C. difficile DNA GUNNER+probe Q l (Unsp spec)Ordered By: Meghan Velez on 03-09-2024 Clostridioides difficile (PCR) [facility] C. difficile Ql (Stl)Ordered By: Meghan Velez on 03-09-2024 C. difficile GDH Antigen & Toxins [facility] CBC W/Diff, Automatedon 02-0 2-2024 Absolute Lymph 0.29 X10 3/uL Low 0.83-4.51 [facility] Comment on above: Performed By: #### L 3410.9992, L505.5000 #### [facility] [address] [place], [address] Absolute Neut 5.2 X10 3/uL Normal 2.0-7.7 [facility] Comment on above: Performed By: #### L 3410.9992, L505.5000 #### [facility] [address] [place], [address] Basophils/100 WBC (Bld) 0.2 % Normal 0-1 [facility] Comment on above: Performed By: #### L 3410.9992, L505.5000 #### [facility] [address] [place], [address] Eosinophils/100 WBC (Bld) 0.2 % Normal 0-5 [facility] Comment on above: Performed By: #### L 3410.9992, L505.5000 #### [facility] [address] [place], [address] Erythrocyte distribution width (RBC) [Ratio] 13.2 % Normal 11.6-14.6 [facility] Comment on above: Performed By: #### L 3410.9992, L505.5000 #### [facility] [address] [place], [address] Hematocrit (Bld) [Volume fraction] 37.4 % Normal 37-47 [facility] Comment on above: Performed By: #### L 3410.9992, L505.5000 #### [facility] [address] [place], [address] Hemoglobin (Bld) [Mass/Vol] 12.3 g/dL Normal 12.0-15.0 [facility] Comment on above: Performed By: #### L 3410.9992, L505.5000 #### [facility] [address] [place], [address] IG% 0.500 Normal 0.0-0.9 [facility] Comment on above: Result Comment: IG% - Immature Granulocytes (promyelocytes, myelocytes and metamyelocytes) > 1% indicates that a LEFT SHIFT is Present. Performed By: #### L 3410.9992, L505.5000 #### [facility] [address] [place], [address] Lymphocytes/100 WBC (Bld) 4.8 % Low 19-41 [facility] Comment on above: Performed By: #### L 3410.9992, L505.5000 #### [facility] [address] [place], [address] MCH (RBC) [Entitic mass] 30.4 pg Normal 27.0-32.0 [facility] Comment on above: Performed By: #### L 3410.9992, L505.5000 #### [facility] [address] [place], [address] MCHC (RBC) [Mass/Vol] 32.9 g/dL Normal 32-36 [facility] Comment on above: Performed By: #### L 3410.9992, L505.5000 #### [facility] [address] [place], [address] MCV (RBC) [Entitic vol] 92.3 fL Normal 81-99 [facility] Comment on above: Performed By: #### L 3410.9992, L505.5000 #### [facility] [address] [place], [address] Monocytes/100 WBC (Bld) 7.8 % Normal 0-10 [facility] Comment on above: Performed By: #### L 3410.9992, L505.5000 #### [facility] [address] [place], [address] Neutrophils/100 WBC (Bld) 86.5 % High 47-70 [facility] Comment on above: Performed By: #### L 3410.9992, L505.5000 #### [facility] [address] [place], [address] Nucleated RBC (Bld) [#/Vol] 0 10*3/uL Normal 0-5 [facility] Comment on above: Performed By: #### L 3410.9992, L505.5000 #### [facility] [address] [place], [address] Platelet mean volume (Bld) [Entitic vol] 11.3 fL Normal 6.2-12.0 [facility] Comment on above: Performed By: #### L 3410.9992, L505.5000 #### [facility] [address] [place], [address] Platelets (Bld) [#/Vol] 115 10*3/uL Low 150-450 [facility] Comment on above: Performed By: #### L 3410.9992, L505.5000 #### [facility] [address] [place], [address] RBC (Bld) [#/Vol] 4.05 10*6/uL Low 4.2-5.4 [facility] Comment on above: Performed By: #### L 3410.9992, L505.5000 #### [facility] [address] [place], [address] RDW SD 44.4 fl High 35.1-43.9 [facility] Comment on above: Performed By: #### L 3410.9992, L505.5000 #### [facility] [address] [place], [address] WBC (Bld) [#/Vol] 6.0 10*3/uL Normal 4.4-11.0 [facility] Comment on above: Performed By: #### L 3410.9992, L505.5000 #### [facility] [address] [place], [place], [id number] CDIFF (PCR)on 03-09-2024 CDIFF Is the patient recei ving laxatives? N New/unexplained onset of 3 or more stools in past 24 hrs? N A positive C. difficile molecular test does not differentiate between an active C. difficile infection and C. difficile colonization. Use clinical judgement and paired toxin/antigen testing to identify true infection and need for treatment. C diff DNA Spec Ql GUNNER+probe Reference Range: Negative [employer] GeneXpert: polymerase chain reaction (PCR) 027 027 NAP1-B1 Presumptive Negative *for epidemiolologic???use C. Diff PCR A Positive-Toxigenic C. Difficile Detected A Normal [facility] Comment on above: Performed By: #### L 3410.9992, L505.5000 #### [facility] [address] [place], [place], [id number] Carbon dioxide measurementOr dered By: Meghan Velez on 03-09-2024 CO2 [Moles/Vol] 23.0 mmol/L 21.0-32.0 [facility] Chloride measurementOrdered By: Meghan Velez on 03-09-2024 Chloride [Moles/Vol] 112 mmol/L High 98-107 [facility] Clostridium Diff Toxin/Agon 03-09-2024 CDIFF (EIA) Is the patient recei ving laxatives? N New/unexplained onset of 3 or more stools in past 24 hrs? N Interpretation of C. diff by EIA Method C diff Stl Ql POS for Antigen and NEG for Toxin = Positive for toxigenic C. Difficile gene but the active toxin production NOT detected. May be a colonized carrier or toxin level is below limit of detection. C. difficile Antigen A Positive C. diff A/B Antigen A C. difficile Toxin Negative C. diff Toxin Normal [facility] Comment on above: Performed By: #### L 3410.9992, L505.5000 #### [facility] [address] [place], [address] Comprehensive Metabolic Prof ilon 03-09-2024 Albumin [Mass/Vol] 2.7 g/dL Low 3.2-5.0 [facility] Comment on above: Performed By: #### L 3410.9992, L505.5000 #### [facility] [address] [place], [address] Albumin/Globulin [Mass ratio] 0.9 {ratio} Normal 0.9-2.4 [facility] Comment on above: Performed By: #### L 3410.9992, L505.5000 #### [facility] [address] [place], [address] ALK P 85 U/L Normal 45-117 [facility] Comment on above: Performed By: #### L 3410.9992, L505.5000 #### [facility] [address] [place], [address] ALT [Catalytic activity/Vol] 45 U/L Normal 13-56 [facility] Comment on above: Performed By: #### L 3410.9992, L505.5000 #### [facility] [address] [place], [address] AST [Catalytic activity/Vol] 57 U/L High 15-37 [facility] Comment on above: Performed By: #### L 3410.9992, L505.5000 #### [facility] [address] [place], [address] Bilirubin [Mass/Vol] 0.40 mg/dL Normal 0.20-1.00 [facility] Comment on above: Result Comment: For patients on eltrombopag therapy, use of Dimension [place] TBIL is not recommended. Performed By: #### L 3410.9992, L505.5000 #### [facility] [address] [place], [address] BUN/CRE 27.0 RATIO High 10-20 [facility] Comment on above: Performed By: #### L 3410.9992, L505.5000 #### [facility] [address] [place], [address] CA,Total 8.5 mg/dL Normal 8.5-10.1 [facility] Comment on above: Performed By: #### L 3410.9992, L505.5000 #### [facility] [address] [place], [address] Chloride [Moles/Vol] 112 mmol/L High 98-107 [facility] Comment on above: Performed By: #### L 3410.9992, L505.5000 #### [facility] [address] [place], [address] CO2 [Moles/Vol] 23.0 mmol/L Normal 21.0-32.0 [facility] Comment on above: Performed By: #### L 3410.9992, L505.5000 #### [facility] [address] [place], [address] Creatinine [Mass/Vol] 0.81 mg/dL Normal 0.55-1.02 [facility] Comment on above: Result Comment: The validity of the calculated GFR GFRAA in patients over 70 years has not been determined. Clinical correlation is essential. Performed By: #### L 3410.9992, L505.5000 #### [facility] [address] [place], [address] EST GFR - AA 88 mL/min Normal >60 [facility] Comment on above: Result Comment: Afri can [place] GFR Calc Performed By: #### L 3410.9992, L505.5000 #### [facility] [address] [place], [address] GAP 6 Normal 5-15 [facility] Comment on above: Performed By: #### L 3410.9992, L505.5000 #### [facility] [address] [place], [address] GFR/1.73 sq M.predicted among non-blacks MDRD (S/P/Bld) [Vol rate/Area] 73 mL/min/{1.73_m2} Normal >60 [facility] Comment on above: Result Comment: Non- GFR Calc Performed By: #### L 3410.9992, L505.5000 #### [facility] [address] [place], [address] Globulin (S) [Mass/Vol] 3.0 g/dL Normal 2.2-4.2 [facility] Comment on above: Performed By: #### L 3410.9992, L505.5000 #### [facility] [address] [place], [address] Glucose [Mass/Vol] 135 mg/dL High 74-106 [facility] Comment on above: Result Comment: Fast ing Glucose result greater than or equal to 126 mg/dL suggests DIABETES MELLITUS per A.D.A. criteria. Performed By: #### L 3410.9992, L505.5000 #### [facility] [address] [place], [address] Potassium [Moles/Vol] 3.8 mmol/L Normal 3.5-5.1 [facility] Comment on above: Performed By: #### L 3410.9992, L505.5000 #### [facility] [address] [place], [address] Sodium [Moles/Vol] 141 mmol/L Normal 136-145 [facility] Comment on above: Performed By: #### L 3410.9992, L505.5000 #### [facility] [address] [place], [address] T PROT 5.7 g/dL Low 6.4-8.2 [facility] Comment on above: Performed By: #### L 3410.9992, L505.5000 #### [facility] [address] [place], [address] Urea nitrogen [Mass/Vol] 22 mg/dL High 7-18 [facility] Comment on above: Performed By: #### L 3410.9992, L505.5000 #### [facility] [address] [place], [address] Emergency Department Summary on 03-09-2024 Emergency Department Summary [facility] Medical Records Department [address] [place] [address] Emergency Department Summary 03/09/24 MR#: [id number] Acct: [id number] Name: SAEID URBINA Rep #: [id number] : 1950 73 From: Meghan TRAMMELL PCP: Dr. Yasemin Connors MD Status:DEP ER Location: ED HPI History of Present Illness Chief Complaint: Diarrhea Narrative Narrative: 73-year-old female with PMH of HTN, GERD, remote colon cancer s/p resection and chemotherapy, chronic back pain states last night after dinner she felt nauseated and this morning around 6 AM she had a large loose bowel movement. She is concerned she could have C. difficile as she had it about 2 years ago. She has only had 1 episode of nonbloody diarrhea. No fever, chills, or abdominal pain. She has not tried eating or drinking today. She takes p.o. morphine twice daily for chronic back pain but states she was worried about throwing up her medication so she did not try it. [facility] Medical History Adverse effect of COVID-19 vaccine Colon cancer COPD (chronic obstructive pulmonary disease) Breast cancer Chronic diastolic (congestive) heart failure Hyperlipidemia Chronic low back pain Rheumatoid arthritis Obstructive sleep apnea syndrome Fibromyalgia Gastroesophageal reflux disease Morbid obesity Essential hypertension Type 2 diabetes mellitus CKD (chronic kidney disease), stage III Home Medications ???Medication ???Instructions ???Recorded ???Last Taken ???Type cyanocobalamin (vitamin B-12) 1,000 mcg PO DAILY 09/02/15 Unknow n History 2,000 mcg tablet acetaminophen 500 mg tablet 1,000 mg PO TID PRN Pain 1-10 Or 0 10/29/15 Unknown History Fever folic acid 800 mcg tablet 800 mg PO DAILY 05/23/17 Unknown H istory omega-3 fatty acids-fish oil 340 1 ea PO QHS 05/23/17 05/20/17 Hist ory mg-1,000 mg capsule hydroxychloroquine 200 mg tablet 200 mg PO DAILY 10/16/19 Unknown H istory magnesium oxide 400 mg PO DAILY #90 tabs 10/16/19 Unknown Rx valsartan 160 mg tablet 160 mg PO DAILY 10/16/19 01/16/20 09:30 History 160 MG omeprazole 20 mg capsule,delayed 40 mg PO DAILY 01/14/20 01/16/20 0 9:30 History release 20 MG insulin lispro 100 unit/mL 1 sliding scale dose subcut Unknown History subcutaneous solution USEASDIRECTD amlodipine 10 mg tablet 10 mg PO QHS #90 tabs 05/11/22 Unk nown Rx metoprolol succinate 50 mg 50 mg PO QHS #90 tabs 05/11/22 Unk nown Rx tablet,extended release 24 hr aspirin 81 mg tablet,delayed 81 mg PO DAILY 01/12/23 Unknown Hi story release (Adult Low Dose Aspirin) fenofibrate 54 mg tablet 54 mg PO DAILY #90 tabs 01/12/23 U nknown Rx metformin 500 mg tablet,extended 500 mg PO DAILY 01/12/23 Unknown H istory release 24 hr morphine 30 mg capsule,extended 15 mg PO BID 01/12/23 Unknown Hist ory release 24 hr multiphase tiotropium 2.5 mcg-olodaterol 2.5 2 puff inhalation DAILY 01/12/23 Unknown History mcg/actuation mist for inhalation (Stiolto Respimat) amitriptyline 50 mg tablet 50 mg PO QDAY 01/01/24 Unknown His tory fesoterodine 4 mg tablet,extended 4 mg PO QDAY 01/01/24 Unknown His tory release 24 hr albuterol sulfate 90 mcg/actuation 2 puff inhalation Q4H PRN Unknown History aerosol inhaler shortness of breath or wheezing cholecalciferol (vitamin D3) 25 25 mcg PO DAILY 01/04/24 Unknown H istory mcg (1,000 unit) capsule (Vitamin D3) diclofenac sodium 1 % topical gel 1 - 2 ea topical DAILY 01/04/24 U nknown History diclofenac sodium 3 % topical gel 1 applic topical BID 01/04/24 Unk nown History furosemide 20 mg tablet 20 mg PO DAILY PRN edema 01/04/24 Unknown History ondansetron 4 mg disintegrating 4 mg PO Q8H PRN PRN Nausea #12 tab s 03/09/24 Unknown Rx tablet vancomycin 125 mg capsule 125 mg PO Q6H 10 days #40 caps 04/01 Unknown Rx (Vancocin) Allergy/AdvReac Type Severity Reaction Status Date / Time ciprofloxacin (From Cipro) Allergy Rash Verified 03/09/24 12:43 ciprofloxacin HCl (From Allergy Rash Verified 03/09/24 12:43 Cipro) dicyclomine Allergy Rash Verified 03/09/24 12:43 erythromycin base (From Allergy Rash Verified 03/09/24 12:43 E-Mycin) ketoprofen (From Oruvail) Allergy Itching Verified 03/09/24 12:43 loratadine (From Claritin) Allergy Rash Verified 03/09/24 12:43 nabumetone (From Relafen) Allergy Rash Verified 03/09/24 12:43 naproxen Allergy Swelling Verified 03/09/24 12:43 Tqzuufn-[id number]-[id number] Reductase Allergy Itching Verified 03/09/24 12:43 Inhibitor (Zwdtbnq-Cdb-Vdl Reductase Inhibitor) Family History Father Heart disease Myocardial infarction late 50's Mother Cancer Brother (more content not included)... Normal [facility] Eosinophil percentageOrdered By: Meghan Velez on 03-09-2024 Eosinophils/100 WBC (Bld) 0.2 % 0-5 [facility] Erythrocyte distribution wid th (RBC) [Ratio]Ordered By: Meghan Velez on 03-09-2024 Erythrocyte distribution width (RBC) [Entitic vol] 44.4 fL High 35.1-43.9 [facility] Erythrocyte distribution wid th ratioOrdered By: Meghan Velez on 03-09-2024 Erythrocyte distribution width (RBC) [Ratio] 13.2 % 11.6-14.6 [facility] Estimated glomerular filtrat ion rate (GFR) AmericanOrdered By: Meghan Velez on 03-09-2024 Estimated GFR (MDRD) Amer 88 mL/min >60 [facility] Comment on above: GFR Calc Glomerular filtration rate ( GFR) estimationOrdered By: Meghan Velez on 03-09-2024 Estimated GFR (MDRD) Non-Af Amer 73 mL/min >60 [facility] Comment on above: Non- GFR Calc Glucose measurementOrdered B y: Meghan Velez on 03-09-2024 Glucose [Mass/Vol] 135 mg/dL High 74-106 [facility] Comment on above: Fasting Glucose resu lt greater than or equal to 126 mg/dL suggests DIABETES MELLITUS per A.D.A. criteria. Hematocrit Auto (Bld) [Volum e fraction]Ordered By: Meghan Velez on 03-09-2024 Hematocrit (Bld) [Volume fraction] 37.4 % 37-47 [facility] Hemoglobin measurementOrdere d By: Meghan Velez on 03-09-2024 Hemoglobin (Bld) [Mass/Vol] 12.3 g/dL 12.0-15.0 [facility] Immature granulocytes/100 WB C Auto (Bld)Ordered By: Meghan Velez on 03-09-2024 Immature granulocytes/100 WBC (Bld) 0.500 % 0.0-0.9 [facility] Comment on above: IG% - Immature Granu locytes (promyelocytes, myelocytes and metamyelocytes) > 1% indicates that a LEFT SHIFT is Present. Laboratory - Chemistry and C hemistry - challengeOrdered By: Meghan Velez on 03-09-2024 AST [Catalytic activity/Vol] 57 U/L High 15-37 [facility] Lymphocytes Auto (Unsp spec) [#/Vol]Ordered By: Meghan Velez on 03-09-2024 Lymphocytes (Bld) [#/Vol] 0.29 10*3/uL Low 0.83-4.51 [facility] Lymphocytes/100 WBC Auto (Un sp spec)Ordered By: Meghan Velez on 03-09-2024 Lymphocytes/100 WBC (Bld) 4.8 % Low 19-41 [facility] MCV (mean corpuscular volume ) determinationOrdered By: Meghan Velez on 03-09-2024 MCV (RBC) [Entitic vol] 92.3 fL 81-99 [facility] Mean corpuscular hemoglobin (MCH) determinationOrdered By: Meghan Velez on 03-09-2024 MCH (RBC) [Entitic mass] 30.4 pg 27.0-32.0 [facility] Mean corpuscular hemoglobin concentration (MCHC) determinationOrdered By: Meghan Velez on 03-09-2024 MCHC (RBC) [Mass/Vol] 32.9 g/dL 32-36 [facility] Mean platelet volume determi nationOrdered By: Meghan Velez on 03-09-2024 Platelet mean volume (Bld) [Entitic vol] 11.3 fL 6.2-12.0 [facility] Monocyte percentageOrdered B y: Meghan Velez on 03-09-2024 Monocytes/100 WBC (Bld) 7.8 % 0-10 [facility] Neutrophil percentageOrdered By: Meghan Velez on 03-09-2024 Neutrophils/100 WBC (Bld) 86.5 % High 47-70 [facility] Nucleated red blood cell per centageOrdered By: Meghan Velez on 03-09-2024 Nucleated RBC/100 WBC (Bld) [Ratio] 0 % 0-5 [facility] Platelet countOrdered By: Amy Velez on 03-09-2024 Platelets (Bld) [#/Vol] 115 10*3/uL Low 150-450 [facility] Potassium measurementOrdered By: Meghan Velez on 03-09-2024 Potassium [Moles/Vol] 3.8 mmol/L 3.5-5.1 [facility] RBC Auto (Bld) [#/Vol]Ordere d By: Meghan Velez on 03-09-2024 RBC (Bld) [#/Vol] 4.05 10*6/uL Low 4.2-5.4 [facility] Serum anion gap measurementO rdered By: Meghan Velez on 03-09-2024 Anion gap [Moles/Vol] 6 mmol/L 5-15 [facility] Serum globulin measurementOr dered By: Meghan Velez on 03-09-2024 Globulin (S) [Mass/Vol] 3.0 g/dL 2.2-4.2 [facility] Serum or plasma alanine cox otransferase (ALT) measurementOrdered By: Meghan Velez on 03-09-2024 ALT [Catalytic activity/Vol] 45 U/L 13-56 [facility] Serum or plasma albumin fredrick urement (mass/volume)Ordered By: Meghan Velez on 03-09-2024 Albumin [Mass/Vol] 2.7 g/dL Low 3.2-5.0 [facility] Serum or plasma alkaline maynor sphatase measurementOrdered By: Meghan Velez on 03-09-2024 ALP [Catalytic activity/Vol] 85 U/L 45-117 [facility] Serum or plasma calcium fredrick urement (mass/volume)Ordered By: Meghan Velez on 03-09-2024 Calcium [Mass/Vol] 8.5 mg/dL 8.5-10.1 [facility] Serum or plasma creatinine m easurement (mass/volume)Ordered By: Meghan Velez on 03-09-2024 Creatinine [Mass/Vol] 0.81 mg/dL 0.55-1.02 [facility] Comment on above: The validity of the calculated GFR & GFRAA in patients over 70 years has not been determined. Clinical correlation is essential. Serum or plasma urea nitroge n measurement (mass/volume)Ordered By: Meghan Velez on 03-09-2024 Urea nitrogen [Mass/Vol] 22 mg/dL High 7-18 [facility] Sodium levelOrdered By: Megahn Velez on 03-09-2024 Sodium [Moles/Vol] 141 mmol/L 136-145 [facility] Total proteinOrdered By: Ana Velez on 03-09-2024 Protein [Mass/Vol] 5.7 g/dL Low 6.4-8.2 [facility] White blood cell (WBC) count Ordered By: Meghan Velez on 03-09-2024 WBC (Bld) [#/Vol] 6.0 10*3/uL 4.4-11.0 [facility] PTHINon 01-16-2024 PTH 95.3 pg/mL High 18.4-80.1 [facility] Comment on above: Performed By: #### L 509.1000 #### [facility] [address] [place], [address] CBC W/Diff, Automatedon - 0-2023 Absolute Lymph 1.10 X10 3/uL Normal 0.83-4.51 [facility] Comment on above: Performed By: #### L 3410.9992, L505.5000 #### [facility] [address] [place], [address] Absolute Neut 3.2 X10 3/uL Normal 2.0-7.7 [facility] Comment on above: Performed By: #### L 3410.9992, L505.5000 #### [facility] [address] [place], [address] Basophils/100 WBC (Bld) 0.8 % Normal 0-1 [facility] Comment on above: Performed By: #### L 3410.9992, L505.5000 #### [facility] [address] [place], [address] Eosinophils/100 WBC (Bld) 2.5 % Normal 0-5 [facility] Comment on above: Performed By: #### L 3410.9992, L505.5000 #### [facility] [address] [place], [address] Erythrocyte distribution width (RBC) [Ratio] 13.2 % Normal 11.6-14.6 [facility] Comment on above: Performed By: #### L 3410.9992, L505.5000 #### [facility] [address] [place], [address] Hematocrit (Bld) [Volume fraction] 39.1 % Normal 37-47 [facility] Comment on above: Performed By: #### L 3410.9992, L505.5000 #### [facility] [address] [place], [address] Hemoglobin (Bld) [Mass/Vol] 12.9 g/dL Normal 12.0-15.0 [facility] Comment on above: Performed By: #### L 3410.9992, L505.5000 #### [facility] [address] [place], [address] IG% 1.000 High 0.0-0.9 [facility] Comment on above: Result Comment: IG% - Immature Granulocytes (promyelocytes, myelocytes and metamyelocytes) > 1% indicates that a LEFT SHIFT is Present. Performed By: #### L 3410.9992, L505.5000 #### [facility] [address] [place], [address] Lymphocytes/100 WBC (Bld) 21.3 % Normal 19-41 [facility] Comment on above: Performed By: #### L 3410.9992, L505.5000 #### [facility] [address] [place], [address] MCH (RBC) [Entitic mass] 30.6 pg Normal 27.0-32.0 [facility] Comment on above: Performed By: #### L 3410.9992, L505.5000 #### [facility] [address] [place], [address] MCHC (RBC) [Mass/Vol] 33.0 g/dL Normal 32-36 [facility] Comment on above: Performed By: #### L 3410.9992, L505.5000 #### [facility] [address] [place], [address] MCV (RBC) [Entitic vol] 92.9 fL Normal 81-99 [facility] Comment on above: Performed By: #### L 3410.9992, L505.5000 #### [facility] [address] [place], [address] Monocytes/100 WBC (Bld) 12.0 % High 0-10 [facility] Comment on above: Performed By: #### L 3410.9992, L505.5000 #### [facility] [address] [place], [address] Neutrophils/100 WBC (Bld) 62.4 % Normal 47-70 [facility] Comment on above: Performed By: #### L 3410.9992, L505.5000 #### [facility] [address] [place], [address] Nucleated RBC (Bld) [#/Vol] 0 10*3/uL Normal 0-5 [facility] Comment on above: Performed By: #### L 3410.9992, L505.5000 #### [facility] [address] [place], [address] Platelet mean volume (Bld) [Entitic vol] 11.8 fL Normal 6.2-12.0 [facility] Comment on above: Performed By: #### L 3410.9992, L505.5000 #### [facility] [address] [place], [address] Platelets (Bld) [#/Vol] 168 10*3/uL Normal 150-450 [facility] Comment on above: Performed By: #### L 3410.9992, L505.5000 #### [facility] [address] [place], [address] RBC (Bld) [#/Vol] 4.21 10*6/uL Normal 4.2-5.4 [facility] Comment on above: Performed By: #### L 3410.9992, L505.5000 #### [facility] [address] [place], [address] RDW SD 45.0 fl High 35.1-43.9 [facility] Comment on above: Performed By: #### L 3410.9992, L505.5000 #### [facility] [address] [place], [address] WBC (Bld) [#/Vol] 5.2 10*3/uL Normal 4.4-11.0 [facility] Comment on above: Performed By: #### L 3410.9992, L505.5000 #### [facility] [address] [place], [address] Comprehensive Metabolic Prof ilon 01-15-2024 Albumin [Mass/Vol] 3.2 g/dL Normal 3.2-5.0 [facility] Comment on above: Performed By: #### L 3410.9992, L505.5000 #### [facility] [address] [place], [address] Albumin/Globulin [Mass ratio] 1.0 {ratio} Normal 0.9-2.4 [facility] Comment on above: Performed By: #### L 3410.9992, L505.5000 #### [facility] [address] [place], [address] ALK P 99 U/L Normal 45-117 [facility] Comment on above: Performed By: #### L 3410.9992, L505.5000 #### [facility] [address] [place], [address] ALT [Catalytic activity/Vol] 56 U/L Normal 13-56 [facility] Comment on above: Performed By: #### L 3410.9992, L505.5000 #### [facility] [address] [place], [address] AST [Catalytic activity/Vol] 53 U/L High 15-37 [facility] Comment on above: Performed By: #### L 3410.9992, L505.5000 #### [facility] [address] [place], [address] Bilirubin [Mass/Vol] 0.30 mg/dL Normal 0.20-1.00 [facility] Comment on above: Result Comment: For patients on eltrombopag therapy, use of Dimension [place] TBIL is not recommended. Performed By: #### L 3410.9992, L505.5000 #### [facility] [address] [place], [address] BUN/CRE 21.5 RATIO High 10-20 [facility] Comment on above: Performed By: #### L 3410.9992, L505.5000 #### [facility] [address] [place], [address] CA,Total 10.2 mg/dL High 8.5-10.1 [facility] Comment on above: Performed By: #### L 3410.9992, L505.5000 #### [facility] [address] [place], [address] Chloride [Moles/Vol] 108 mmol/L High 98-107 [facility] Comment on above: Performed By: #### L 3410.9992, L505.5000 #### [facility] [address] [place], [address] CO2 [Moles/Vol] 30.0 mmol/L Normal 21.0-32.0 [facility] Comment on above: Performed By: #### L 3410.9992, L505.5000 #### [facility] [address] [place], [address] Creatinine [Mass/Vol] 1.07 mg/dL High 0.55-1.02 [facility] Comment on above: Result Comment: The validity of the calculated GFR GFRAA in patients over 70 years has not been determined. Clinical correlation is essential. Performed By: #### L 3410.9992, L505.5000 #### [facility] [address] [place], [address] EST GFR - AA 64 mL/min Normal >60 [facility] Comment on above: Result Comment: Afri can Iranian GFR Calc Performed By: #### L 3410.9992, L505.5000 #### [facility] [address] [place], [address] GAP 3 Low 5-15 [facility] Comment on above: Performed By: #### L 3410.9992, L505.5000 #### [facility] [address] [place], [address] GFR/1.73 sq M.predicted among non-blacks MDRD (S/P/Bld) [Vol rate/Area] 53 mL/min/{1.73_m2} Low >60 [facility] Comment on above: Result Comment: Non- GFR Calc Performed By: #### L 3410.9992, L505.5000 #### [facility] [address] [place], [address] Globulin (S) [Mass/Vol] 3.2 g/dL Normal 2.2-4.2 [facility] Comment on above: Performed By: #### L 3410.9992, L505.5000 #### [facility] [address] [place], [address] Glucose [Mass/Vol] 116 mg/dL High 74-106 [facility] Comment on above: Result Comment: Fast ing Glucose result from 100 to 125 mg/dL suggests IMPAIRED HOMEOSTASIS per A.D.A. criteria. Performed By: #### L 3410.9992, L505.5000 #### [facility] [address] [place], [address] Potassium [Moles/Vol] 4.1 mmol/L Normal 3.5-5.1 [facility] Comment on above: Performed By: #### L 3410.9992, L505.5000 #### [facility] [address] [place], [address] Sodium [Moles/Vol] 140 mmol/L Normal 136-145 [facility] Comment on above: Performed By: #### L 3410.9992, L505.5000 #### [facility] [address] [place], [address] T PROT 6.4 g/dL Normal 6.4-8.2 [facility] Comment on above: Performed By: #### L 3410.9992, L505.5000 #### [facility] [address] [place], [address] Urea nitrogen [Mass/Vol] 23 mg/dL High 7-18 [facility] Comment on above: Performed By: #### L 3410.9992, L505.5000 #### [facility] [address] [place], [address] DBT Breast - right diagnosti c for implanton 01-15-2024 IMPRESSION: Calcifications in the right breast are suspicious for malignancy. Stereotactic biopsy is recommended. BI-RADS Category 4: Suspicious Interpreting Radiologist: Ashlyn Siddiqui M.D. Electronically signed on: 01/15/2024 Pairer Inspector: JESSICA Transcribe Date/Time: Jan 15 2024 1:56P Dictated by: ASHLYN SIDDIQUI MD This examination was interpreted and the report reviewed and electronically signed by: ASHLYN SIDDIQUI MD on Jan 15 2024 2:41PM [facility] DIVISION OF RADIOLOGY * * *Final Report* * * DATE OF EXAM: Jan 15 2024 2:19PM W 0629 - TRENT OSITO BILL RT / PROCEDURE REASON: Abnormal mammogram * * * * Physician Interpretation * * * * RESULT: [facility] [address] [place] [address] #[id number] - TRENT OSITO BILL RT HISTORY: Patient is 73 years old and is seen for diagnostic evaluation of short term follow-up from a previous mammogram in the right breast. The patient has a history of colon cancer in 2019 and right breast cancer in 2010. COMPARISON STUDIES: The present examination has been compared to prior imaging studies dated 06/01/2021 (mammogram), 06/09/2022 (mammogram), 06/12/2023 (mammogram) and 07/11/2023 (mammogram). MAMMOGRAM TECHNIQUE: The study was acquired using full field digital technology and interpreted from soft copy. Digital Breast Tomosynthesis (DBT) images were obtained and used to assist in the interpretation of this examination. Computer-aided detection was utilized by the radiologist in the interpretation of this examination. MAMMOGRAM FINDINGS: The breast is heterogeneously dense, which may obscure small masses. There are grouped fine pleomorphic calcifications in the right breast at 10 o'clock, posterior depth. There are chronic and post operative findings. The area seen previously is not evident currently. DIVISION OF RADIOLOGY Provider, [facility] - 01/15/2024 * * *Final Report* * * DATE OF EXAM: Jan 15 2024 2:19PM [facility] 0629 - TRENT DIAG W FLY RT / PROCEDURE REASON: Abnormal mammogram * * * * Physician Interpretation * * * * RESULT: [place] [address] #[id number] - TRENT DIAG W FLY RT HISTORY: Patient is 73 years old and is seen for diagnostic evaluation of short term follow-up from a previous mammogram in the right breast. The patient has a history of colon cancer in 2019 and right breast cancer in 2010. COMPARISON STUDIES: The present examination has been compared to prior imaging studies dated 06/01/2021 (mammogram), 06/09/2022 (mammogram), 06/12/2023 (mammogram) and 07/11/2023 (mammogram). MAMMOGRAM TECHNIQUE: The study was acquired using full field digital technology and interpreted from soft copy. Digital Breast Tomosynthesis (DBT) images were obtained and used to assist in the interpretation of this examination. Computer-aided detection was utilized by the radiologist in the interpretation of this examination. MAMMOGRAM FINDINGS: The breast is heterogeneously dense, which may obscure small masses. There are grouped fine pleomorphic calcifications in the right breast at 10 o'clock, posterior depth. There are chronic and post operative findings. The area seen previously is not evident currently. IMPRESSION IMPRESSION: Calcifications in the right breast are suspicious for malignancy. Stereotactic biopsy is recommended. BI-RADS Category 4: Suspicious Interpreting Radiologist: Ashlyn Siddiqui M.D. Electronically signed on: 01/15/2024 Pairer Inspector: JESSICA Transcribe Date/Time: Jan 15 2024 1:56P Dictated by: ASHLYN SIDDIQUI MD This examination was interpreted and the report reviewed and electronically signed by: ASHLYN SIDDIQUI MD on Jan 15 2024 2:41PM EST [facility] Radiology Study observation (narrative) [facility] DBT Breast - right diagnosti c for implantOrdered By: [facility] Provider on 01-15-2024 [facility] Thyroid Stim Hormone (TSH)on 01-15-2024 TSH 1.960 uIU/mL Normal 0.358-3.74 0 [facility] Comment on above: Performed By: #### L 3410.9992, L505.5000 #### [facility] [address] [place], [address] Vitamin D,25 Hydroxyon 01-14 Vitamin D 25-OH 23.5 ng/mL Normal [facility] Comment on above: Result Comment: Briana min D 25(OH) Status Range Deficiency <20 ng/mL (50nmol/L) Insufficiency 20 - 30 ng/mL (50 - 75 nmol/L) Sufficiency 30 - 100 ng/mL (75 - 250 nmol/L) Toxicity >100 ng/mL (>250 nmol/L) Performed By: #### L 3410.9992, L505.5000 #### [facility] [address] [place], [place], [address] EGD Study observation Narrat iveon 01-09-2024 [facility] Gastrointestinal Endoscopy Patient Name: Saeid Urbina Procedure Date: 01/09/2024 8:41 AM Date of : 1950 Admit Type: Outpatient Age: 73 Gender: Female Note Status: Finalized Procedure: Upper GI endoscopy Indications: Epigastric abdominal pain Providers: Mahin Pérez MD Patient Profile: This is a 73 year old female. Refer to note in patient chart for documentation of history and physical. Patient has symptoms of acute epigastric abdominal pain. Referring Physician: Dayan Silverman (Referring MD) Medicines: Midazolam 5 mg IV, Fentanyl 75 micrograms IV, Diphenhydramine 50 mg IV Complications: No immediate complications. Requesting Provider: Procedure: Pre-Anesthesia Assessment: - Prior to the procedure, a History and Physical was performed, and patient medications and allergies were reviewed. The patient is competent. The risks and benefits of the procedure and the sedation options and risks were discussed with the patient. All questions were answered and informed consent was obtained. Patient identification and proposed procedure were verified by the physician and the nurse in the procedure room. Mental Status Examination: normal. Airway Examination: normal oropharyngeal airway and neck mobility. Respiratory Examination: clear to auscultation. Prophylactic Antibiotics: The patient does not require prophylactic antibiotics. Prior Anticoagulants: The patient has taken no anticoagulant or antiplatelet agents. ASA Grade Assessment: II - A patient with mild systemic disease. After reviewing the risks and benefits, the patient was deemed in satisfactory condition to undergo the procedure. The anesthesia plan was to use moderate sedation / analgesia (conscious sedation). Immediately prior to administration of medications, the patient was re-assessed for adequacy to receive sedatives. The heart rate, respiratory rate, oxygen saturations, blood pressure, adequacy of pulmonary ventilation, and response to care were monitored throughout the procedure. The physical status of the patient was re-assessed after the procedure. After obtaining informed consent, the endoscope was passed under direct vision. Throughout the procedure, the patient's blood pressure, pulse, and oxygen saturations were monitored continuously. The Endoscope was introduced through the mouth, and advanced to the jejunum. The upper GI endoscopy was accomplished without difficulty. The patient tolerated the procedure well. Moderate Sedation: Moderate (conscious) sedation was personally administered by the endoscopist. The following parameters were monitored: oxygen saturation, heart rate, blood pressure, and response to care. Total physician intraservice time was 23 minutes. The administration of moderate sedation was initiated at 09:13. Findings: The examined jejunum was normal. Biopsies for histology were taken with a cold forceps for evaluation of celiac disease. The examined duodenum was normal. Scattered moderate inflammation characterized by erythema, friability and nodularity was found in the entire examined stomach. Biopsies were taken with a cold forceps for histology. The examined esophagus was normal. Impression: - Normal examined jejunum. Biopsied. - Normal examined duodenum. - Gastritis, characterized by erythema, friability and nodularity. Biopsied. - Normal esophagus. Recommendation: - Discharge patient to home. - Resume previous diet. - Continue present medications. - Return to nurse practitioner in 1 week. Procedure Code(s): --- Professional --- 26293, Esophagogastroduodenoscopy, flexible, transoral; with biopsy, single or multipl (more content not included)... [facility]ATION [facility] [place] [facility] Flexible sigmoidoscopy study on 01-09-2024 [facility] Gastrointestinal Endoscopy Patient Name: Saeid Urbina Procedure Date: 01/09/2024 8:42 AM Date of : 1950 Admit Type: Outpatient Age: 73 Gender: Female Note Status: Finalized Procedure: Colonoscopy Indications: High risk colon cancer surveillance: Personal history of colon cancer Providers: Mahin Pérez MD Patient Profile: This is a 73 year old female. Refer to note in patient chart for documentation of history and physical. Last Colonoscopy: 3 years ago. Referring Physician: Dayan Silverman (Referring MD) Medicines: See the other procedure note for documentation of the administered medications Complications: No immediate complications. Requesting Provider: Procedure: Pre-Anesthesia Assessment: - Prior to the procedure, a History and Physical was performed, and patient medications and allergies were reviewed. The patient is competent. The risks and benefits of the procedure and the sedation options and risks were discussed with the patient. All questions were answered and informed consent was obtained. Patient identification and proposed procedure were verified by the physician and the nurse in the procedure room. Mental Status Examination: alert and oriented. Airway Examination: normal oropharyngeal airway and neck mobility. Respiratory Examination: clear to auscultation. CV Examination: normal. Prophylactic Antibiotics: The patient does not require prophylactic antibiotics. Prior Anticoagulants: The patient has taken no anticoagulant or antiplatelet agents. ASA Grade Assessment: II - A patient with mild systemic disease. After reviewing the risks and benefits, the patient was deemed in satisfactory condition to undergo the procedure. The anesthesia plan was to use moderate sedation / analgesia (conscious sedation). Immediately prior to administration of medications, the patient was re-assessed for adequacy to receive sedatives. The heart rate, respiratory rate, oxygen saturations, blood pressure, adequacy of pulmonary ventilation, and response to care were monitored throughout the procedure. The physical status of the patient was re-assessed after the procedure. After I obtained informed consent, the scope was passed under direct vision. Throughout the procedure, the patient's blood pressure, pulse, and oxygen saturations were monitored continuously. The Colonoscope was introduced through the anus and advanced to the cecum, identified by the appendiceal orifice, ileocecal valve and palpation. The colonoscopy was performed without difficulty. The patient tolerated the procedure well. The quality of the bowel preparation was good. The terminal ileum and the rectum were photographed. The ileocolonic anastomosis was photographed. Moderate Sedation: Moderate (conscious) sedation was personally administered by the endoscopist. The following parameters were monitored: oxygen saturation, heart rate, blood pressure, and response to care. Total physician intraservice time was 23 minutes. The administration of moderate sedation was initiated at 09:13. Findings: The perianal and digital rectal examinations were normal. There was evidence of a prior functional end-to-end ileo-colonic anastomosis in the mid transverse colon. This was patent and was characterized by healthy appearing mucosa. The anastomosis was traversed. The distal ileum appeared normal. A few small-mouthed diverticula were found in the sigmoid colon. The exam was otherwise without abnormality on direct and retroflexion views. Impression: - Patent functional end-to-end ileo-colonic anastomosis, characterized by healthy appearing mucosa. - The examined portion of the ileum (more content not included)... [facility] [place] [facility] GLUCOSE, BLOOD (POC)on 01-08 Glucose [Mass/Vol] 81 mg/dL 74 - 99 mg/dL [facility] [place] [facility] Comment on above: Location:[facility] [address] [place], [place], [address] The Accu-Chek Inform II glucose meter has not been approved for testing on patients receiving intensive medical intervention or therapy and results from this point of care glucose test should not be used for patient management decisions in these cases. Inaccurate results may also occur from other interfering factors, such as N-acetylcysteine (blood concentrations of greater than 5mg/dL), galactose, extremes of hematocrit (<10 or >65), or high doses of ascorbic acid (vitamin C) greater than 3mg/dL. Consider alternate testing mechanisms (e.g. core lab, blood gas instrument) in the above situations. [facility] [place] [facility] Glucose [Mass/Vol] 90 mg/dL 74 - 99 mg/dL [facility] [place] [facility] Comment on above: [facility], [address], [place], [place], [address] The Accu-Chek Inform II glucose meter has not been approved for testing on patients receiving intensive medical intervention or therapy and results from this point of care glucose test should not be used for patient management decisions in these cases. Inaccurate results may also occur from other interfering factors, such as N-acetylcysteine (blood concentrations of greater than 5mg/dL), galactose, extremes of hematocrit (<10 or >65), or high doses of ascorbic acid (vitamin C) greater than 3mg/dL. Consider alternate testing mechanisms (e.g. core lab, blood gas instrument) in the above situations. [facility] [place] [facility] No Panel Informationon 01-08 Radiology Study observation (narrative) [facility] [place] [facility] CREATININE BLDOrdered By: Nikolay Flores on 01-07-2024 Creatinine [Mass/Vol] 1.01 mg/dL High 0.58 - 0.96 mg/dL [facility] [place] [facility] GFR/1.73 sq M.predicted among non-blacks MDRD (S/P/Bld) [Vol rate/Area] 58 mL/min/{1.73_m2} Low - PINF [facility] [place] [facility] Comment on above: Estimated Glomerular Filtration Rate (eGFR) is calculated using the 2020 CKD-EPI creatinine equation. This equation utilizes serum creatinine, sex, and age as parameters. The creatinine assay has traceable calibration to isotope dilution-mass spectrometry. Refer to KDIGO guidelines for clinical interpretation. In patients with unstable renal function, e.g. those with acute kidney injury, the eGFR may not accurately reflect actual GFR. Interpretation and review of laboratory results Abnormal [facility] 12 Lead EKGon 01-04-2024 12 Lead EKG [facility] Cardiovascular Services [address] [place] [address] 12 Lead EKG 01/04/24 0658 MR#: [id number] Acct: [id number] Name: SAEID URBINA Rep #: [id number] : 1950 73 From: Russel Olivera MD Attending Dr: Status: DEP ER Ordering Dr: Dustin Newton MD Date: 01/04/24 Location: ED Sex: F C Admitted: Test Reason : Blood Pressure : */* mmHG Vent. Rate : 71 BPM Atrial Rate : 71 BPM P-R Int : 224 ms QRS Dur : 86 ms QT Int : 374 ms P-R-T Axes : 52 13 52 degrees QTcB Int : 406 ms Sinus rhythm with 1st degree A-V block Poor R wave progression Abnormal ECG Confirmed by Russel Olivera ([id number]), market editor JULIA MAY ([id number]) on 01/07/2024 11:28:15 AM Referred By: Confirmed By: Russel Olivera 01/07/24 1128 Date Russel Olivera MD CC: Dr. Dustin Newton MD; Dr. Yasemin Connors MD Signed Normal [facility] Basic Metabolic Profile (BMP )on 01-04-2024 BUN/CRE 27.9 RATIO High 10-20 [facility] Comment on above: Order Comment: 1 Y Performed By: #### L 500.2500, L501.5425, L100.0100 #### [facility] [address] [place], [address] CA,Total 9.5 mg/dL Normal 8.5-10.1 [facility] Comment on above: Order Comment: 1 Y Performed By: #### L 500.2500, L501.5425, L100.0100 #### [facility] [address] [place], [address] Chloride [Moles/Vol] 111 mmol/L High 98-107 [facility] Comment on above: Order Comment: 1 Y Performed By: #### L 500.2500, L501.5425, L100.0100 #### [facility] [address] [place], [address] CO2 [Moles/Vol] 26.0 mmol/L Normal 21.0-32.0 [facility] Comment on above: Order Comment: 1 Y Performed By: #### L 500.2500, L501.5425, L100.0100 #### [facility] [address] [place], [address] Creatinine [Mass/Vol] 0.86 mg/dL Normal 0.55-1.02 [facility] Comment on above: Order Comment: 1 Y Result Comment: The validity of the calculated GFR GFRAA in patients over 70 years has not been determined. Clinical correlation is essential. Performed By: #### L 500.2500, L501.5425, L100.0100 #### [facility] [address] [place], [address] ECRCL 62.46 ml/min Normal [facility] Comment on above: Order Comment: 1 Y Performed By: #### L 500.2500, L501.5425, L100.0100 #### [facility] [address] [place], [address] EST GFR - AA 83 mL/min Normal >60 [facility] Comment on above: Order Comment: 1 Y Result Comment: Afri can Iranian GFR Calc Performed By: #### L 500.2500, L501.5425, L100.0100 #### [facility] [address] [place], [address] GAP 6 Normal 5-15 [facility] Comment on above: Order Comment: 1 Y Performed By: #### L 500.2500, L501.5425, L100.0100 #### [facility] [address] [place], [address] GFR/1.73 sq M.predicted among non-blacks MDRD (S/P/Bld) [Vol rate/Area] 69 mL/min/{1.73_m2} Normal >60 [facility] Comment on above: Order Comment: 1 Y Result Comment: Non- GFR Calc Performed By: #### L 500.2500, L501.5425, L100.0100 #### [facility] [address] [place], [address] Glucose [Mass/Vol] 143 mg/dL High 74-106 [facility] Comment on above: Order Comment: 1 Y Result Comment: Fast ing Glucose result greater than or equal to 126 mg/dL suggests DIABETES MELLITUS per A.D.A. criteria. Performed By: #### L 500.2500, L501.5425, L100.0100 #### [facility] [address] [place], [address] Potassium [Moles/Vol] 3.8 mmol/L Normal 3.5-5.1 [facility] Comment on above: Order Comment: 1 Y Performed By: #### L 500.2500, L501.5425, L100.0100 #### [facility] [address] [place], [address] Sodium [Moles/Vol] 143 mmol/L Normal 136-145 [facility] Comment on above: Order Comment: 1 Y Performed By: #### L 500.2500, L501.5425, L100.0100 #### [facility] [address] [place], [address] Urea nitrogen [Mass/Vol] 24 mg/dL High 7-18 [facility] Comment on above: Order Comment: 1 Y Performed By: #### L 500.2500, L501.5425, L100.0100 #### [facility] [address] [place], [address] CBC W/Diff, Automatedon 11-2 Absolute Lymph 1.15 X10 3/uL Normal 0.83-4.51 [facility] Comment on above: Performed By: #### L 500.2500, L501.5425, L100.0100 #### [facility] [address] [place], [address] Absolute Neut 3.2 X10 3/uL Normal 2.0-7.7 [facility] Comment on above: Performed By: #### L 500.2500, L501.5425, L100.0100 #### [facility] [address] [place], [address] Basophils/100 WBC (Bld) 0.4 % Normal 0-1 [facility] Comment on above: Performed By: #### L 500.2500, L501.5425, L100.0100 #### [facility] [address] [place], [address] Eosinophils/100 WBC (Bld) 1.2 % Normal 0-5 [facility] Comment on above: Performed By: #### L 500.2500, L501.5425, L100.0100 #### [facility] [address] [place], [address] Erythrocyte distribution width (RBC) [Ratio] 12.9 % Normal 11.6-14.6 [facility] Comment on above: Performed By: #### L 500.2500, L501.5425, L100.0100 #### [facility] [address] [place], [address] Hematocrit (Bld) [Volume fraction] 39.2 % Normal 37-47 [facility] Comment on above: Performed By: #### L 500.2500, L501.5425, L100.0100 #### [facility] [address] [place], [address] Hemoglobin (Bld) [Mass/Vol] 13.2 g/dL Normal 12.0-15.0 [facility] Comment on above: Performed By: #### L 500.2500, L501.5425, L100.0100 #### [facility] [address] [place], [address] IG% 0.600 Normal 0.0-0.9 [facility] Comment on above: Result Comment: IG% - Immature Granulocytes (promyelocytes, myelocytes and metamyelocytes) > 1% indicates that a LEFT SHIFT is Present. Performed By: #### L 500.2500, L501.5425, L100.0100 #### [facility] [address] [place], [address] Lymphocytes/100 WBC (Bld) 23.0 % Normal 19-41 [facility] Comment on above: Performed By: #### L 500.2500, L501.5425, L100.0100 #### [facility] [address] [place], [address] MCH (RBC) [Entitic mass] 30.6 pg Normal 27.0-32.0 [facility] Comment on above: Performed By: #### L 500.2500, L501.5425, L100.0100 #### [facility] [address] [place], [address] MCHC (RBC) [Mass/Vol] 33.7 g/dL Normal 32-36 [facility] Comment on above: Performed By: #### L 500.2500, L501.5425, L100.0100 #### [facility] [address] [place], [address] MCV (RBC) [Entitic vol] 91.0 fL Normal 81-99 [facility] Comment on above: Performed By: #### L 500.2500, L501.5425, L100.0100 #### [facility] [address] [place], [address] Monocytes/100 WBC (Bld) 11.0 % High 0-10 [facility] Comment on above: Performed By: #### L 500.2500, L501.5425, L100.0100 #### [facility] [address] [place], [address] Neutrophils/100 WBC (Bld) 63.8 % Normal 47-70 [facility] Comment on above: Performed By: #### L 500.2500, L501.5425, L100.0100 #### [facility] [address] [place], [address] Nucleated RBC (Bld) [#/Vol] 0 10*3/uL Normal 0-5 [facility] Comment on above: Performed By: #### L 500.2500, L501.5425, L100.0100 #### [facility] [address] [place], [address] Platelet mean volume (Bld) [Entitic vol] 11.9 fL Normal 6.2-12.0 [facility] Comment on above: Performed By: #### L 500.2500, L501.5425, L100.0100 #### [facility] [address] [place], [address] Platelets (Bld) [#/Vol] 132 10*3/uL Low 150-450 [facility] Comment on above: Performed By: #### L 500.2500, L501.5425, L100.0100 #### [facility] [address] [place], [address] RBC (Bld) [#/Vol] 4.31 10*6/uL Normal 4.2-5.4 [facility] Comment on above: Performed By: #### L 500.2500, L501.5425, L100.0100 #### [facility] [address] [place], [address] RDW SD 42.6 fl Normal 35.1-43.9 [facility] Comment on above: Performed By: #### L 500.2500, L501.5425, L100.0100 #### [facility] [address] [place], [address] WBC (Bld) [#/Vol] 5.0 10*3/uL Normal 4.4-11.0 [facility] Comment on above: Performed By: #### L 500.2500, L501.5425, L100.0100 #### [facility] [address] [place], [address] Chest 1 View (Portable)on Chest 1 View (Portable) [facility] Imaging Services [address] [place] [address] Chest 1 View (Portable) MR#: [id number] Acct: [id number] Name: SAEID URBINA Rep #: [id number] : 1950 F 73 From: Flavio Robertson MD PCP: Dr. Yasemin Connors MD Status: REG ER Study: Chest 1 View (Portable) Date of Exam: 01/04/24 Exam# [id number] Ordering Dr: Dustin Newton MD [id number] EXAM: XR CHEST, 1 VIEW CLINICAL INDICATION: chest pain TECHNIQUE: Frontal view of the chest. COMPARISON: 01/23/2012 FINDINGS: LUNGS AND PLEURAL SPACES: Unremarkable. No consolidation or edema. No pneumothorax. No effusion. HEART: Unremarkable. Cardiac silhouette not enlarged. MEDIASTINUM: Central airways and mediastinal contour are unremarkable. BONES/JOINTS: Unremarkable. No acute fracture. SOFT TISSUES: There are surgical clips in the right axilla. TUBES, LINES AND DEVICES: Left-sided Port-A-Cath is in place with the distal tip overlying the superior vena cava. RAD/Chest 1 View (Portable) IMPRESSION: No acute pulmonary abnormality. Electronically Signed: Flavio Robertson MD at 8:14 EST , CC: Dr. Dustin Newton MD; Dr. Yasemin Connors MD Pairer Inspector: Signed Normal [facility] Emergency Department Summary on 01-04-2024 Emergency Department Summary [facility] Medical Records Department [address] [place] [address] Emergency Department Summary 01/04/24 MR#: [id number] Acct: [id number] Name: SAEID URBINA Rep #: [id number] : 1950 73 From: Dustin Newton MD PCP: Dr. Yasemin Connors MD Status:DEP ER Location: ED HPI History of Present Illness Chief Complaint: Hypertension [facility] Medical History Adverse effect of COVID-19 vaccine Colon cancer COPD (chronic obstructive pulmonary disease) Breast cancer Chronic diastolic (congestive) heart failure Hyperlipidemia Chronic low back pain Rheumatoid arthritis Obstructive sleep apnea syndrome Fibromyalgia Gastroesophageal reflux disease Morbid obesity Essential hypertension Type 2 diabetes mellitus CKD (chronic kidney disease), stage III Home Medications ???Medication ???Instructions ???Recorded ???Last Taken ???Type cyanocobalamin (vitamin B-12) 1,000 mcg PO DAILY 09/02/15 Unknown History 2,000 mcg tablet acetaminophen 500 mg tablet 1,000 mg PO TID PRN Pain 1- Or 10/29/15 Unknown History Fever folic acid 800 mcg tablet 800 mg PO DAILY 05/23/17 Unknown History omega-3 fatty acids-fish oil 340 1 ea PO QHS 05/23/17 05/20/17 History mg-1,000 mg capsule hydroxychloroquine 200 mg tablet 200 mg PO DAILY 10/16/19 Unknown History magnesium oxide 400 mg PO DAILY #90 tabs 10/16/19 Unknown Rx valsartan 160 mg tablet 160 mg PO DAILY 10/16/19 01/16/20 09:30 History 160 MG omeprazole 20 mg capsule,delayed 40 mg PO DAILY 01/14/20 01/16/20 09:30 History release 20 MG insulin lispro 100 unit/mL 1 sliding scale dose subcut 10/20/21 Unknown History subcutaneous solution USEASDIRECTD amlodipine 10 mg tablet 10 mg PO QHS #90 tabs 05/11/22 Unknown Rx metoprolol succinate 50 mg 50 mg PO QHS #90 tabs 05/11/22 Unknown Rx tablet,extended release 24 hr aspirin 81 mg tablet,delayed 81 mg PO DAILY 01/12/23 Unknown History release (Adult Low Dose Aspirin) fenofibrate 54 mg tablet 54 mg PO DAILY #90 tabs 01/12/23 Unknown Rx metformin 500 mg tablet,extended 500 mg PO DAILY 01/12/23 Unknown History release 24 hr morphine 30 mg capsule,extended 15 mg PO BID 01/12/23 Unknown History release 24 hr multiphase tiotropium 2.5 mcg-olodaterol 2.5 2 puff inhalation DAILY 01/12/23 Unknown History mcg/actuation mist for inhalation (Stiolto Respimat) amitriptyline 50 mg tablet 50 mg PO QDAY 01/01/24 Unknown History fesoterodine 4 mg tablet,extended 4 mg PO QDAY 01/01/24 Unknown History release 24 hr albuterol sulfate 90 mcg/actuation 2 puff inhalation Q4H PRN 01/04/24 Unknown History aerosol inhaler shortness of breath or wheezing cholecalciferol (vitamin D3) 25 25 mcg PO DAILY 01/04/24 Unknown History mcg (1,000 unit) capsule (Vitamin D3) diclofenac sodium 1 % topical gel 1 - 2 ea topical DAILY 01/04/24 Unknown History diclofenac sodium 3 % topical gel 1 applic topical BID 01/04/24 Unknown History furosemide 20 mg tablet 20 mg PO DAILY PRN edema 01/04/24 Unknown History ondansetron 4 mg disintegrating 4 mg PO Q6H PRN nausea and vomiting 01/04/24 Unknown History tablet Allergy/AdvReac Type Severity Reaction Status Date / Time ciprofloxacin (From Cipro) Allergy Rash Verified 01/04/24 06:41 ciprofloxacin HCl (From Allergy Rash Verified 01/04/24 06:41 Cipro) dicyclomine Allergy Rash Verified 01/04/24 06:41 erythromycin base (From Allergy Rash Verified 01/04/24 06:41 E-Mycin) ketoprofen (From Oruvail) Allergy Itching Verified 01/04/24 06:41 loratadine (From Claritin) Allergy Rash Verified 01/04/24 06:41 nabumetone (From Relafen) Allergy Rash Verified 01/04/24 06:41 naproxen Allergy Swelling Verified 01/04/24 06:41 Qsmbkmi-YUP-RuJ Reductase Allergy Itching Verified 01/04/24 06:41 Inhibitor (Doyafrq-Drj-Yle Reductase Inhibitor) Family History Father Heart disease Myocardial infarction late 50's Mother Cancer Brother Cancer Sister Lupus Surgical History Ablation to lumbar spine (07/2017) History of tubal ligation History of tonsillectomy and adenoidectomy History of lumpectomy of right breast (2010) History of cholecystectomy History of Social History Smoking Status: Never smoker EXAM Physical Exam Const Vital Signs: 01/04/24 06:28 01/04/24 06:37 01/04/24 06:42 Temperature 98.1 F Temperature Source Oral Pulse Rate 56 L Respiratory Rate 18 Respiratory Effort Normal Respiratory Pattern Normal Blood Pressure 184/105 H Blood Pressure Mean 131 Pulse Ox 100 98 Oxygen Delivery Me (more content not included)... Normal [facility] Emergency Department Summary [facility] Medical Records Department [address] [place] [address] Emergency Department Summary 01/04/24 MR#: [id number] Acct: [id number] Name: SAEID URBINA Rep #: [id number] : 1950 73 From: Dustin Newton MD PCP: Dr. Yasemin Connors MD Status:REG ER Location: ED HPI History of Present Illness Chief Complaint: Hypertension Narrative Narrative: 73-year-old female past medical history of hypertension, presents with left arm numbness that lasted about a minute. She noticed that her blood pressure was elevated in the 180s to 190s systolic. She denies any headache or chest pain, no shortness of breath. She feels fine currently. She got up because she sleeps in a recliner, and noticed that her hand was a little numb. She states that when she went to get up, her entire arm on the left went numb for approximately 1 minute. It felt more like [id number]. That resolved. They checked her blood pressure and it was elevated. Her blood sugar was acceptable and she states her pulse ox was normal. She is completely asymptomatic currently, but felt she needed checked because of the quick arm numbness. No headaches. She had to call EMS because her daughter was unable to drive her. [facility] Medical History Adverse effect of COVID-19 vaccine Colon cancer COPD (chronic obstructive pulmonary disease) Breast cancer Chronic diastolic (congestive) heart failure Hyperlipidemia Chronic low back pain Rheumatoid arthritis Obstructive sleep apnea syndrome Fibromyalgia Gastroesophageal reflux disease Morbid obesity Essential hypertension Type 2 diabetes mellitus CKD (chronic kidney disease), stage III Home Medications ???Medication ???Instructions ???Recorded ???Last Taken ???Type cyanocobalamin (vitamin B-12) 1,000 mcg PO DAILY 09/02/15 Unknown History 2,000 mcg tablet acetaminophen 500 mg tablet 1,000 mg PO TID PRN Pain 1- Or 10/29/15 Unknown History Fever folic acid 800 mcg tablet 800 mg PO DAILY 05/23/17 Unknown History omega-3 fatty acids-fish oil 340 1 ea PO QHS 05/23/17 05/20/17 History mg-1,000 mg capsule hydroxychloroquine 200 mg tablet 200 mg PO DAILY 10/16/19 Unknown History magnesium oxide 400 mg PO DAILY #90 tabs 10/16/19 Unknown Rx valsartan 160 mg tablet 160 mg PO DAILY 10/16/19 01/16/20 09:30 History 160 MG omeprazole 20 mg capsule,delayed 40 mg PO DAILY 01/14/20 01/16/20 09:30 History release 20 MG insulin lispro 100 unit/mL 1 sliding scale dose subcut 10/20/21 Unknown History subcutaneous solution USEASDIRECTD amlodipine 10 mg tablet 10 mg PO QHS #90 tabs 05/11/22 Unknown Rx metoprolol succinate 50 mg 50 mg PO QHS #90 tabs 05/11/22 Unknown Rx tablet,extended release 24 hr aspirin 81 mg tablet,delayed 81 mg PO DAILY 01/12/23 Unknown History release (Adult Low Dose Aspirin) fenofibrate 54 mg tablet 54 mg PO DAILY #90 tabs 01/12/23 Unknown Rx metformin 500 mg tablet,extended 500 mg PO DAILY 01/12/23 Unknown History release 24 hr morphine 30 mg capsule,extended 15 mg PO BID 01/12/23 Unknown History release 24 hr multiphase tiotropium 2.5 mcg-olodaterol 2.5 2 puff inhalation DAILY 01/12/23 Unknown History mcg/actuation mist for inhalation (Stiolto Respimat) amitriptyline 50 mg tablet 50 mg PO QDAY 01/01/24 Unknown History fesoterodine 4 mg tablet,extended 4 mg PO QDAY 01/01/24 Unknown History release 24 hr albuterol sulfate 90 mcg/actuation 2 puff inhalation Q4H PRN 01/04/24 Unknown History aerosol inhaler shortness of breath or wheezing cholecalciferol (vitamin D3) 25 25 mcg PO DAILY 01/04/24 Unknown History mcg (1,000 unit) capsule (Vitamin D3) diclofenac sodium 1 % topical gel 1 - 2 ea topical DAILY 01/04/24 Unknown History diclofenac sodium 3 % topical gel 1 applic topical BID 01/04/24 Unknown History furosemide 20 mg tablet 20 mg PO DAILY PRN edema 01/04/24 Unknown History ondansetron 4 mg disintegrating 4 mg PO Q6H PRN nausea and vomiting 01/04/24 Unknown History tablet Allergy/AdvReac Type Severity Reaction Status Date / Time ciprofloxacin (From Cipro) Allergy Rash Verified 01/04/24 06:41 ciprofloxacin HCl (From Allergy Rash Verified 01/04/24 06:41 Cipro) dicyclomine Allergy Rash Verified 01/04/24 06:41 erythromycin base (From Allergy Rash Verified 01/04/24 06:41 E-Mycin) ketoprofen (From Oruvail) Allergy Itching Verified 01/04/24 06:41 loratadine (From Claritin) Allergy Rash Verified 01/04/24 06:41 nabumetone (From Relafen) Allergy Rash Verified 01/04/24 06:41 naproxen Allergy Swelling Verified 01/04/24 06:41 Mfcaxcs-NXR-FbY Reductase Allergy Itching Verified 01/04/24 06:41 Inhibitor (Xshhlbx-Eks-Lpb Reductase Inhibitor) Family History ... Normal [facility] L501.4020on 01-04-2024 TROPONIN-I HS 7 pg/mL Normal 3.0-54.0 [facility] Comment on above: Order Comment: RUN L OWEST TEST UNK Result Comment: Plea Note: New Test Units and Gender Specific Reference Ranges. For more information see Policy Stat Procedure [place] High Sensitivity Troponin (TNIH) and attachments. Performed By: #### L 3410.9992, L505.5000 #### [facility] [address] [place], [address] L501.5495on 01-04-2024 TROPONIN-I HS 6 pg/mL Normal 3.0-54.0 [facility] Comment on above: Order Comment: 1 Y Result Comment: [place] Note: New Test Units and Gender Specific Reference Ranges. For more information see Policy Stat Procedure [place] High Sensitivity Troponin (TNIH) and attachments. Performed By: #### L 500.2500, L501.5425, L100.0100 #### [facility] [address] [place], [place], [address] Cardiology Visit Reporton Cardiology Visit Report [facility] [address] [place], [place] [address] OFFICE VISIT Date of Service: 01/01/24 MR#: [id number] Acct: [id number] Name: SAEID URBINA Rep #: [id number] : 1950 Provider: ABHISHEK Mcintyre rts Age/Sex: 73/F Location: [facility] [place] Status: Signed HPI HPI History of Present Illness Details: This is a pleasant 73-year-old lady who presents to the office today for a cardiovascular follow-up visit. She has a history of hypertension, diabetes mellitus, obesity, obstructive sleep apnea with CPAP therapy, chronic renal insufficiency, and diastolic heart failure. You also do remember that she underwent surgery for colon cancer and is a breast cancer survivor. Her most recent echocardiogram demonstrated an ejection fraction of 60% with stage I diastolic dysfunction. From a cardiac standpoint, the patient is doing well. She does use a walker to help with ambulation. She denies any palpitations, chest pain, pressure or heaviness. She does have occasional SOB with walking longer distances. This is nothing new or worsening. She denies Orthopnea, and PND. She does not have bleeding issues; no blood in urine, stool or nosebleeds. She does acknowledge fatigue. She denies myalgias, or claudication. She does have occasional edema on her left side. She denies sudden weight gain. She denies dizziness, lightheadedness, syncopal or near syncopal episodes, and headaches. 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 Is patient in pain?: No Allergies ciprofloxacin (From Cipro) Allergy (Verified 01/01/24 13:52) Rash ciprofloxacin HCl (From Cipro) Allergy (Verified 01/01/24 13:52) Rash dicyclomine Allergy (Verified 01/01/24 13:52) Rash erythromycin base (From E-Mycin) Allergy (Verified 01/01/24 13:52) Rash ketoprofen (From Oruvail) Allergy (Verified 01/01/24 13:52) Itching loratadine (From Claritin) Allergy (Verified 01/01/24 13:52) Rash nabumetone (From Relafen) Allergy (Verified 01/01/24 13:52) Rash naproxen Allergy (Verified 01/01/24 13:52) Swelling Kdegrth-XIW-AnB Reductase Inhibitor (Hftucpk-Lur-Iiv Reductase Inhibitor) Allergy (Verified 01/01/24 13:52) Itching Medications ???Medication ???Instructions ???Recorded ???Confirmed ???Type cyanocobalamin (vitamin B-12) 500 mcg PO DAILY 09/02/15 01/01/24 History 2,000 mcg tablet acetaminophen 500 mg tablet 1,000 mg PO TID PRN Pain 1-10 Or 10/29/15 01/01/24 History Fever folic acid 800 mcg tablet 800 mg PO DAILY 05/23/17 01/01/24 History omega-3 fatty acids-fish oil 340 1 ea PO QHS 05/23/17 01/01/24 History mg-1,000 mg capsule hydroxychloroquine 200 mg tablet 200 mg PO DAILY 10/16/19 01/01/24 History magnesium oxide 400 mg PO DAILY #90 tabs 10/16/19 01/01/24 Rx valsartan 160 mg tablet 160 mg PO DAILY 10/16/19 01/01/24 History omeprazole 20 mg capsule,delayed 40 mg PO DAILY 01/14/20 01/01/24 History release insulin lispro 100 unit/mL 1 sliding scale dose subcut 10/20/21 01/01/24 History subcutaneous solution USEASDIRECTD ondansetron 4 mg disintegrating 4 mg PO BID PRN nausea and 02/22/22 01/01/24 Rx tablet vomiting #10 tabs amlodipine 10 mg tablet 10 mg PO QHS #90 tabs 05/11/22 01/01/24 Rx metoprolol succinate 50 mg 50 mg PO QHS #90 tabs 05/11/22 01/01/24 Rx tablet,extended release 24 hr aspirin 81 mg tablet,delayed 81 mg PO DAILY 01/12/23 01/01/24 History release (Adult Low Dose Aspirin) docusate sodium 100 mg capsule 100 mg PO BID PRN 01/12/23 01/01/24 History (Colace) fenofibrate 54 mg tablet 54 mg PO DAILY #90 tabs 01/12/23 01/01/24 Rx metformin 500 mg tablet,extended 500 mg PO DAILY 01/12/23 01/01/24 History release 24 hr morphine 30 mg capsule,extended 15 mg PO BID 01/12/23 01/01/24 History release 24 hr multiphase tiotropium 2.5 mcg-olodaterol 2.5 2 puff inhalation DAILY 01/12/23 01/01/24 History mcg/actuation mist for inhalation (Stiolto Respimat) amitriptyline 50 mg tablet 50 mg PO QDAY 01/01/24 01/01/24 History fesoterodine 4 mg tablet,extended 4 mg PO QDAY 01/01/24 01/01/24 History release 24 hr furosemide 20 mg tablet 20 mg PO .PRN #45 tabs 01/01/24 01/01/24 Rx Have you fallen in the past year?: No PFSH Medical History Adverse effect of COVID-19 vaccine Colon cancer COPD (chronic obstructive pulmonary disease) Breast cancer Chronic diastolic (congestive) heart failure Hyperlipidemia Chronic low back pain Rheumatoid arthritis Obstructive (more content not included)... Normal [facility] Miscellaneous Lab Procedureo n 10-22-2023 MISC LAB TEST Normal [facility] Comment on above: Order Comment: [id number] URINE TOX Result Comment: [id number] 6+OXYCODONE-BUND (ng/mL) DRUG RESULT SCREEN CUTOFF ____ Amphetamines,Urine Negative ng/mL 1000 Amphetamine test includes Amphetamine and Methamphetamine. Barbiturates Negative ng/mL 200 Benzodiazepines Negative ng/mL 200 Cannabinoid Negative ng/mL 20 Cocaine (Metab) Negative ng/mL 300 Opiates Positive ng/mL 300 Opiates test includes Codeine, Morphine, Hydromorphone, Hydrocodone. Codeine Negative 300 Morphine Positive Morphine Conf,MS,UR >3000 ng/mL 300 Hydromorphone Negative 300 Hydrocodone Negative 300 Oxycodone/Oxymorphone,Urine Negative ng/mL 300 Test includes Oxycodone and Oxymorphone. TESTING PERFORMED AT [facility]. ORIGINAL REPORT ON FILE IN LAB CONTAINS ADDITIONAL TEST SITE INFORMATION. Performed By: #### L 801.1541, L505.4999 #### [facility] [address] [place], [place], [address] Urine Drug Screen (VISTA)on 10-17-2023 AMPHETAMINES Negative Normal <1000 ng/mL [facility] Comment on above: Order Comment: RUN L OWEST TEST MED TOX Performed By: #### L 801.1541, L505.5000 #### [facility] [address] [place], [place], [address] BARBITIURATES Negative Normal < 200 ng/mL [facility] Comment on above: Order Comment: RUN L OWEST TEST MED TOX Performed By: #### L 801.1541, L505.5000 #### [facility] [address] [place], [address] BENZODIAZIPINE Negative Normal < 200 ng/mL [facility] Comment on above: Order Comment: RUN L OWEST TEST MED TOX Performed By: #### L 801.1541, L505.5000 #### [facility] [address] [place], [address] COCAINE Negative Normal < 300 ng/mL [facility] Comment on above: Order Comment: RUN L OWEST TEST MED TOX Performed By: #### L 801.1541, L505.5000 #### [facility] [address] [place], [address] ECSTACY Negative Normal < 500 ng/mL [facility] Comment on above: Order Comment: RUN L OWEST TEST MED TOX Performed By: #### L 801.1541, L505.5000 #### [facility] [address] [place], [address] METHADONE Negative Normal < 300 ng/mL [facility] Comment on above: Order Comment: RUN L OWEST TEST MED TOX Performed By: #### L 801.1541, L505.5000 #### [facility] [address] [place], [address] OPIATES Positive Abnormal < 300 ng/mL [facility] Comment on above: Order Comment: RUN L OWEST TEST MED TOX Performed By: #### L 801.1541, L505.5000 #### [facility] [address] [place], [address] PCP Negative Normal < 25 ng/mL [facility] Comment on above: Order Comment: RUN L OWEST TEST MED TOX Performed By: #### L 801.1541, L505.5000 #### [facility] [address] [place], [address] THC Negative Normal < 50 ng/mL [facility] Comment on above: Order Comment: RUN L OWEST TEST MED TOX Performed By: #### L 801.1541, L505.5000 #### [facility] [address] [place], [address] VISTA UDS PH 6 Normal [facility] Comment on above: Order Comment: RUN L OWEST TEST MED TOX Performed By: #### L 801.1541, L505.5000 #### [facility] [address] [place], [address] Basic metabolic 2000 panelOr dered By: Jannet Ledesma on 10-02-2023 Anion gap [Moles/Vol] 10 mmol/L 8 - 15 mmol/L [facility] Calcium [Mass/Vol] 10.5 mg/dL High 8.5 - 10. 2 mg/dL [facility] Chloride [Moles/Vol] 105 mmol/L 98 - 10 7 mmol/L [facility] CO2 [Moles/Vol] 23 mmol/L 22 - 30 mmol/L [facility] Creatinine [Mass/Vol] 1.07 mg/dL High 0.58 - 0.96 mg/dL [facility] GFR/1.73 sq M.predicted among non-blacks MDRD (S/P/Bld) [Vol rate/Area] 55 mL/min/{1.73_m2} Low - PINF [facility] Comment on above: Estimated Glomerular Filtration Rate (eGFR) is calculated using the 2020 CKD-EPI creatinine equation. This equation utilizes serum creatinine, sex, and age as parameters. The creatinine assay has traceable calibration to isotope dilution-mass spectrometry. Refer to KDIGO guidelines for clinical interpretation. In patients with unstable renal function, e.g. those with acute kidney injury, the eGFR may not accurately reflect actual GFR. Glucose [Mass/Vol] 100 mg/dL High 74 - 99 mg/dL [facility] Comment on above: The [place] [employer] Association (ADA) provides guidance for cutoff values for fasting glucose and random glucose. The ADA defines fasting as no caloric intake for at least 8 hours. Fasting plasma glucose results between 100 to 125 mg/dL indicate increased risk for diabetes (prediabetes). Fasting plasma glucose results greater than or equal to 126 mg/dL meet the criteria for diagnosis of diabetes. In the absence of unequivocal hyperglycemia, results should be confirmed by repeat testing. In a patient with classic symptoms of hyperglycemia or hyperglycemic crisis, random plasma glucose results greater than or equal to 200 mg/dL meet the criteria for diagnosis of diabetes. Reference: Standards of Medical Care in Diabetes 2016, [employer]. Diabetes Care. 2016.39(Suppl 1). Potassium [Moles/Vol] 4.4 mmol/L 3.7 - 5.1 mmol/L [facility] Sodium [Moles/Vol] 138 mmol/L 136 - 144 mmol/L [facility] Urea nitrogen [Mass/Vol] 25 mg/dL High 7 - 21 mg/dL [facility] CBC W Auto Differential pane l (Bld)on 10-02-2023 Basophils (Bld) [#/Vol] 0.04 10*3/uL [facility] Basophils/100 WBC (Bld) 0.7 % [facility] Differential cell count method Nom (Bld) Auto [facility] Eosinophils (Bld) [#/Vol] 0.11 10*3/uL [facility] Eosinophils/100 WBC (Bld) 2.0 % [facility] Erythrocyte distribution width (RBC) [Ratio] 13.1 % 11.5 - 15.0 % [facility] Hematocrit (Bld) [Volume fraction] 38.4 % 36.0 - 46.0 % [facility] Hemoglobin (Bld) [Mass/Vol] 12.7 g/dL 11.5 - 15.5 g/dL [facility] Immature granulocytes (Bld) [#/Vol] 0.06 10*3/uL [facility] Immature granulocytes/100 WBC (Bld) 1.1 % [facility] Lymphocytes (Bld) [#/Vol] 1.18 10*3/uL [facility] Lymphocytes/100 WBC (Bld) 21.1 % [facility] MCH (RBC) [Entitic mass] 30.1 pg 26.0 - 34.0 pg [facility] MCHC (RBC) [Mass/Vol] 33.1 g/dL 30.5 - 36.0 g/dL [facility] MCV (RBC) [Entitic vol] 91.0 fL 80.0 - 100.0 fL [facility] Monocytes (Bld) [#/Vol] 0.61 10*3/uL NINF [facility] Monocytes/100 WBC (Bld) 10.9 % [facility] Neutrophils (Bld) [#/Vol] 3.60 10*3/uL [facility] Neutrophils/100 WBC (Bld) 64.2 % [facility] Nucleated RBC (Bld) [#/Vol] NINF [facility] Nucleated RBC/100 WBC (Bld) [Ratio] 0.0 % /100 WBC [facility] Platelet mean volume (Bld) [Entitic vol] 10.5 fL 9.0 - 12.7 fL [facility] Platelets (Bld) [#/Vol] 178 10*3/uL [facility] RBC (Bld) [#/Vol] 4.22 10*6/uL 3.90 - 5.20 m/uL [facility] WBC (Bld) [#/Vol] 5.60 10*3/uL [facility] Hepatic function 2000 panelo n 10-02-2023 Albumin [Mass/Vol] 4.2 g/dL 3.9 - 4.9 g/dL [facility] ALP [Catalytic activity/Vol] 103 U/L 34 - 123 U/L [facility] ALT [Catalytic activity/Vol] 26 U/L 7 - 38 U/L [facility] AST [Catalytic activity/Vol] 33 U/L 13 - 35 U/L [facility] Bilirubin [Mass/Vol] 0.4 mg/dL 0.2 - 1 .3 mg/dL [facility] Bilirubin.conjugated [Mass/Vol] 0.2 mg/dL High NINF - 0.2 mg/dL [facility] Protein [Mass/Vol] 6.9 g/dL 6.3 - 8.0 g/dL [facility] No Panel InformationOrdered By: Jannet Ledesma on 10-02-2023 Interpretation and review of laboratory results Abnormal [facility] CBC W/Diff, Automatedon 07-07 Absolute Lymph 1.56 X10 3/uL Normal 0.83-4.51 [facility] Comment on above: Performed By: #### L 500.4050, L100.0100 #### [facility] [address] [place], [address] Absolute Neut 4.7 X10 3/uL Normal 2.0-7.7 [facility] Comment on above: Performed By: #### L 500.4050, L100.0100 #### [facility] [address] [place], [address] Basophils/100 WBC (Bld) 0.4 % Normal 0-1 [facility] Comment on above: Performed By: #### L 500.4050, L100.0100 #### [facility] [address] [place], [address] Eosinophils/100 WBC (Bld) 1.0 % Normal 0-5 [facility] Comment on above: Performed By: #### L 500.4050, L100.0100 #### [facility] [address] [place], [address] Erythrocyte distribution width (RBC) [Ratio] 13.1 % Normal 11.6-14.6 [facility] Comment on above: Performed By: #### L 500.4050, L100.0100 #### [facility] [address] [place], [address] Hematocrit (Bld) [Volume fraction] 41.4 % Normal 37-47 [facility] Comment on above: Performed By: #### L 500.4050, L100.0100 #### [facility] [address] [place], [address] Hemoglobin (Bld) [Mass/Vol] 13.4 g/dL Normal 12.0-15.0 [facility] Comment on above: Performed By: #### L 500.4050, L100.0100 #### [facility] [address] [place], [address] IG% 1.200 High 0.0-0.9 [facility] Comment on above: Result Comment: IG% - Immature Granulocytes (promyelocytes, myelocytes and metamyelocytes) > 1% indicates that a LEFT SHIFT is Present. Performed By: #### L 500.4050, L100.0100 #### [facility] [address] [place], [address] Lymphocytes/100 WBC (Bld) 21.5 % Normal 19-41 [facility] Comment on above: Performed By: #### L 500.4050, L100.0100 #### [facility] [address] [place], [address] MCH (RBC) [Entitic mass] 29.8 pg Normal 27.0-32.0 [facility] Comment on above: Performed By: #### L 500.4050, L100.0100 #### [facility] [address] [place], [address] MCHC (RBC) [Mass/Vol] 32.4 g/dL Normal 32-36 [facility] Comment on above: Performed By: #### L 500.4050, L100.0100 #### [facility] [address] [place], [address] MCV (RBC) [Entitic vol] 92.2 fL Normal 81-99 [facility] Comment on above: Performed By: #### L 500.4050, L100.0100 #### [facility] [address] [place], [address] Monocytes/100 WBC (Bld) 10.6 % High 0-10 [facility] Comment on above: Performed By: #### L 500.4050, L100.0100 #### [facility] [address] [place], [address] Neutrophils/100 WBC (Bld) 65.3 % Normal 47-70 [facility] Comment on above: Performed By: #### L 500.4050, L100.0100 #### [facility] [address] [place], [address] Nucleated RBC (Bld) [#/Vol] 0 10*3/uL Normal 0-5 [facility] Comment on above: Performed By: #### L 500.4050, L100.0100 #### [facility] [address] [place], [address] Platelet mean volume (Bld) [Entitic vol] 10.4 fL Normal 6.2-12.0 [facility] Comment on above: Performed By: #### L 500.4050, L100.0100 #### [facility] [address] [place], [address] Platelets (Bld) [#/Vol] 194 10*3/uL Normal 150-450 [facility] Comment on above: Performed By: #### L 500.4050, L100.0100 #### [facility] [address] [place], [address] RBC (Bld) [#/Vol] 4.49 10*6/uL Normal 4.2-5.4 [facility] Comment on above: Performed By: #### L 500.4050, L100.0100 #### [facility] [address] [place], [address] RDW SD 44.0 fl High 35.1-43.9 [facility] Comment on above: Performed By: #### L 500.4050, L100.0100 #### [facility] [address] [place], [address] WBC (Bld) [#/Vol] 7.2 10*3/uL Normal 4.4-11.0 [facility] Comment on above: Performed By: #### L 500.4050, L100.0100 #### [facility] [address] [place], [address] Comprehensive Metabolic Prof [facility] 08-01-2023 Albumin [Mass/Vol] 3.4 g/dL Normal 3.2-5.0 [facility] Comment on above: Performed By: #### L 500.4050, L100.0100 #### [facility] [address] [place], [address] Albumin/Globulin [Mass ratio] 1.0 {ratio} Normal 0.9-2.4 [facility] Comment on above: Performed By: #### L 500.4050, L100.0100 #### [facility] [address] [place], [address] ALK P 69 U/L Normal 45-117 [facility] Comment on above: Performed By: #### L 500.4050, L100.0100 #### [facility] [address] [place], [address] ALT [Catalytic activity/Vol] 22 U/L Normal 13-56 [facility] Comment on above: Performed By: #### L 500.4050, L100.0100 #### [facility] [address] [place], [address] AST [Catalytic activity/Vol] 18 U/L Normal 15-37 [facility] Comment on above: Performed By: #### L 500.4050, L100.0100 #### [facility] [address] [place], [address] Bilirubin [Mass/Vol] 0.20 mg/dL Normal 0.20-1.00 [facility] Comment on above: Result Comment: For patients on eltrombopag therapy, use of Dimension [place] TBIL is not recommended. Performed By: #### L 500.4050, L100.0100 #### [facility] [address] [place], [address] BUN/CRE 34.6 RATIO High 10-20 [facility] Comment on above: Performed By: #### L 500.4050, L100.0100 #### [facility] [address] [place], [address] CA,Total 9.9 mg/dL Normal 8.5-10.1 [facility] Comment on above: Performed By: #### L 500.4050, L100.0100 #### [facility] [address] [place], [address] Chloride [Moles/Vol] 106 mmol/L Normal 98-107 [facility] Comment on above: Performed By: #### L 500.4050, L100.0100 #### [facility] [address] [place], [address] CO2 [Moles/Vol] 28.0 mmol/L Normal 21.0-32.0 [facility] Comment on above: Performed By: #### L 500.4050, L100.0100 #### [facility] [address] [place], [address] Creatinine [Mass/Vol] 1.04 mg/dL High 0.55-1.02 [facility] Comment on above: Result Comment: The validity of the calculated GFR GFRAA in patients over 70 years has not been determined. Clinical correlation is essential. Performed By: #### L 500.4050, L100.0100 #### [facility] [address] [place], [address] EST GFR - AA 67 mL/min Normal >60 [facility] Comment on above: Result Comment: Afri can [place] GFR Calc Performed By: #### L 500.4050, L100.0100 #### [facility] [address] [place], [address] GAP 5 Normal 5-15 [facility] Comment on above: Performed By: #### L 500.4050, L100.0100 #### [facility] [address] [place], [address] GFR/1.73 sq M.predicted among non-blacks MDRD (S/P/Bld) [Vol rate/Area] 55 mL/min/{1.73_m2} Low >60 [facility] Comment on above: Result Comment: Non- GFR Calc Performed By: #### L 500.4050, L100.0100 #### [facility] [address] [place], [address] Globulin (S) [Mass/Vol] 3.4 g/dL Normal 2.2-4.2 [facility] Comment on above: Performed By: #### L 500.4050, L100.0100 #### [facility] [address] [place], [address] Glucose [Mass/Vol] 121 mg/dL High 74-106 [facility] Comment on above: Result Comment: Fast ing Glucose result from 100 to 125 mg/dL suggests IMPAIRED HOMEOSTASIS per A.D.A. criteria. Performed By: #### L 500.4050, L100.0100 #### [facility] [address] [place], [address] Potassium [Moles/Vol] 4.1 mmol/L Normal 3.5-5.1 [facility] Comment on above: Performed By: #### L 500.4050, L100.0100 #### [facility] [address] [place], [address] Sodium [Moles/Vol] 139 mmol/L Normal 136-145 [facility] Comment on above: Performed By: #### L 500.4050, L100.0100 #### [facility] [address] [place], [address] T PROT 6.8 g/dL Normal 6.4-8.2 [facility] Comment on above: Performed By: #### L 500.4050, L100.0100 #### [facility] [address] [place], [place], [id number] Urea nitrogen [Mass/Vol] 36 mg/dL High 7-18 [facility] Comment on above: Performed By: #### L 500.4050, L100.0100 #### [facility] [address] [place], [place], [id number] UA DIP, URINE (POC)on 2023 BILIRUBIN UA (POCT) Negative Negative [facility] CLARITY UA (POCT) [facility] COLOR UA (POCT) Yellow [facility] GLUCOSE UA (POCT) Negative Negative mg/dL [facility] Hemoglobin Ql (U) Negative Negative [facility] Interpretation and review of laboratory results Abnormal [facility] KETONE UA (POCT) Negative Negative mg/dL [facility] LEUKOCYTES UA (POCT) Negative Negative [facility] NITRITE UA (POCT) Negative Negative [facility] PH UA (POCT) 5.5 4.5 - 8.0 [facility] Protein Ql (U) Trace Abnormal Negative mg/dL [facility] SPECIFIC GRAVITY UA (POCT) >=1.030 1.005 - 1.030 [facility] UROBILINOGEN UA (POCT) 0.2 Normal E.U./dL [facility] Location:[facility], [address] [place] [address], [place], [address] [facility] POINT OF CARE [facility] DBT Breast - right diagnosti c for implanton 07-11-2023 IMPRESSION: PROBABLY BENIGN - SHORT TERM INTERVAL FOLLOW-UP RECOMMENDED A follow-up mammogram in 6 months is recommended to demonstrate stability. Ashlyn chapman/david:07/11/2023 13:31:48 Road Roller Operator(s): RT Maria Alejandra(R)(M), [place] [facility] BI-RADS: 3 Probably benign finding - short term interval follow-up recommended Multiple national specialty organizations have released breast cancer screening guidelines for women at average risk for developing breast cancer - guidelines that are based on both evidence and opinion, yet differ on when to start and how often to screen for breast cancer. With representation from Breast Imaging, Internal Medicine, Women's Health, Family Medicine, and Medical/Surgical Oncology, the [facility] has carefully reviewed the data and reached the following consensus: 1) All women should engage in shared decision-making with their providers to decide when to start and how often to screen; 2) All women should have the opportunity to start screening mammography at age 40; 3) For women ages 45-55, we recommend annual screening mammograms; 4) For women ages 55 and over, we support both the transition from an annual to a biennial interval if this aligns more with patient's values and preferences, or continuation with annual screening; 5) All women should discuss with their providers when to stop screening mammograms. Pairer Inspector: David Transcribe Date/Time: Jul 11 2023 1:04P Dictated by: ASHLYN SIDDIQUI MD This examination was interpreted and the report reviewed and electronically signed by: ASHLYN SIDDIQUI MD on Jul 11 2023 1:31PM [facility] DIVISION OF RADIOLOGY * * *Final Report* * * DATE OF EXAM: Jul 11 2023 1:04PM W 0629 - TRENT OSITO BILL RT / PROCEDURE REASON: Abnormal mammogram * * * * Physician Interpretation * * * * RESULT: #[id number] - TRENT Bryant FLY RT UNILATERAL RIGHT DIGITAL DIAGNOSTIC MAMMOGRAM TOMOSYNTHESIS WITH CAD: 07/11/2023 HISTORY: / Call back/abnormal mamm: Right /priors available for comparison Abnormal Mammogram. RESULT: TECHNIQUE: The study was acquired using full field digital technology and interpreted from soft copy. Digital Breast Tomosynthesis (DBT) images were obtained and used to assist in the interpretation of this examination. Current study was also evaluated with a Computer Aided Detection (CAD). Comparison is made to exams dated: 06/12/2023 mammogram, 06/09/2022 mammogram, 06/01/2021 mammogram, and 05/21/2020 mammogram - [facility]. The right breast is heterogeneously dense, which may obscure small masses. Additional imaging reveals area of interest in the right breast on prior exam is not reproduced and presumably represents superimposed breast tissue. No significant masses, calcifications, or other findings are seen in the breast. DIVISION OF RADIOLOGY Provider, [facility] - 07/11/2023 * * *Final Report* * * DATE OF EXAM: Jul 11 2023 1:04PM WRW 0629 - TRENT OSITO Bryant FLY RT / PROCEDURE REASON: Abnormal mammogram * * * * Physician Interpretation * * * * RESULT: #[id number] - TRENT Bryant FLY RT UNILATERAL RIGHT DIGITAL DIAGNOSTIC MAMMOGRAM TOMOSYNTHESIS WITH CAD: 07/11/2023 HISTORY: / Call back/abnormal mamm: Right /priors available for comparison Abnormal Mammogram. RESULT: TECHNIQUE: The study was acquired using full field digital technology and interpreted from soft copy. Digital Breast Tomosynthesis (DBT) images were obtained and used to assist in the interpretation of this examination. Current study was also evaluated with a Computer Aided Detection (CAD). Comparison is made to exams dated: 06/12/2023 mammogram, 06/09/2022 mammogram, 06/01/2021 mammogram, and 05/21/2020 mammogram - [facility]. The right breast is heterogeneously dense, which may obscure small masses. Additional imaging reveals area of interest in the right breast on prior exam is not reproduced and presumably represents superimposed breast tissue. No significant masses, calcifications, or other findings are seen in the breast. IMPRESSION IMPRESSION: PROBABLY BENIGN - SHORT TERM INTERVAL FOLLOW-UP RECOMMENDED A follow-up mammogram in 6 months is recommended to demonstrate stability. Ashlyn chapman/david:07/11/2023 13:31:48 Road Roller Operator(s): Jackie Pennington RT(R)(M), [facility] Mammogram BI-RADS: 3 Probably benign finding - short term interval follow-up recommended Multiple national specialty organizations have released breast cancer screening guidelines for women at average risk for developing breast cancer - guidelines that are based on both evidence and opinion, yet differ on when to start and how often to screen for breast cancer. With representation from Breast Imaging, Internal Medicine, Women's Health, Family Medicine, and Medical/Surgical Oncology, the [facility] has carefully reviewed the data and reached the following consensus: 1) All women should engage in shared decision-making with their providers to decide when to start and how often to screen; 2) All women should have the opportunity to start screening mammography at age 40; 3) For women ages 45-55, we recommend annual screening mammograms; 4) For women ages 55 and over, we support both the transition from an annual to a biennial interval if this aligns more with patient's values and preferences, or continuation with annual screening; 5) All women should discuss with their providers when to stop screening mammograms. Pairer Inspector: David Transcribe Date/Time: Jul 11 2023 1:04P Dictated by: ASHLYN SIDDIQUI MD This examination was interpreted and the report reviewed and electronically signed by: ASHLYN SIDDIQUI MD on Jul 11 2023 1:31PM EST [facility] Radiology Study observation (narrative) [facility] DBT Breast - right diagnosti c for implantOrdered By: Ccf Provider on 07-11-2023 [facility] CREATININE BLDOrdered By: Nikolay Flores on 07-06-2023 Creatinine [Mass/Vol] 0.91 mg/dL 0.58 - 0.96 mg/dL [facility] GFR/1.73 sq M.predicted among non-blacks MDRD (S/P/Bld) [Vol rate/Area] 66 mL/min/{1.73_m2} - PINF [facility] Comment on above: Estimated Glomerular Filtration Rate (eGFR) is calculated using the 2020 CKD-EPI creatinine equation. This equation utilizes serum creatinine, sex, and age as parameters. The creatinine assay has traceable calibration to isotope dilution-mass spectrometry. Refer to KDIGO guidelines for clinical interpretation. In patients with unstable renal function, e.g. those with acute kidney injury, the eGFR may not accurately reflect actual GFR. Interpretation and review of laboratory results Normal [facility] DBT Breast - bilateral duglas zapientonio 06-12-2023 * * *Final Report* * * DATE OF EXAM: Jun 12 2023 1:19PM [facility] 0582 - TRENT SCREENING W FLY / PROCEDURE REASON: multiple diagnoses * * * * Physician Interpretation * * * * RESULT: #[id number] - TRENT SCREENING W FLY BILATERAL DIGITAL SCREENING MAMMOGRAM TOMOSYNTHESIS WITH CAD: 06/12/2023 HISTORY: Multiple Diagnoses / Screening Mammogram-Patient reports NO symptoms. /priors available for comparison. RESULT: TECHNIQUE: The study was acquired using full field digital technology and interpreted from soft copy. Digital Breast Tomosynthesis (DBT) images were obtained and used to assist in the interpretation of this examination. Current study was also evaluated with a Computer Aided Detection (CAD). Comparison is made to exams dated: 06/09/2022 mammogram, 06/01/2021 mammogram, and 05/21/2020 mammogram - [facility]. The breasts are heterogeneously dense, which may obscure small masses. There is an asymmetry in the right breast middle depth superior region seen on the mediolateral oblique view only. No other significant masses, calcifications, or other findings are seen in either breast. DIVISION OF RADIOLOGY Provider, [facility] - 06/12/2023 * * *Final Report* * * DATE OF EXAM: Jun 12 2023 1:19PM [facility] 0582 - [facility] SCREENING W FLY / PROCEDURE REASON: multiple diagnoses * * * * Physician Interpretation * * * * RESULT: #[id number] - [facility] SCREENING W FLY BILATERAL DIGITAL SCREENING MAMMOGRAM TOMOSYNTHESIS WITH CAD: 06/12/2023 HISTORY: Multiple Diagnoses / Screening Mammogram-Patient reports NO symptoms. /priors available for comparison. RESULT: TECHNIQUE: The study was acquired using full field digital technology and interpreted from soft copy. Digital Breast Tomosynthesis (DBT) images were obtained and used to assist in the interpretation of this examination. Current study was also evaluated with a Computer Aided Detection (CAD). Comparison is made to exams dated: 06/09/2022 mammogram, 06/01/2021 mammogram, and 05/21/2020 mammogram - [facility]. The breasts are heterogeneously dense, which may obscure small masses. There is an asymmetry in the right breast middle depth superior region seen on the mediolateral oblique view only. No other significant masses, calcifications, or other findings are seen in either breast. IMPRESSION IMPRESSION: INCOMPLETE: NEEDS ADDITIONAL IMAGING EVALUATION The asymmetry in the right breast is indeterminate. Additional views are recommended. Paola Guadalupe M.D., mc/david:06/12/2023 22:13:21 Road Roller Operator(s): Jamila Kirkpatrick [facility] letter sent: Additional Imaging Needed Mammogram BI-RADS: 0 Incomplete: needs additional imaging evaluation If this report indicates you need additional imaging, and it has NOT yet been performed, please call , to schedule. We sincerely thank you for choosing the [facility] for your breast imaging needs. Multiple national specialty organizations have released breast cancer screening guidelines for women at average risk for developing breast cancer - guidelines that are based on both evidence and opinion, yet differ on when to start and how often to screen for breast cancer. With representation from Breast Imaging, Internal Medicine, Women's Health, Family Medicine, and Medical/Surgical Oncology, the [facility] has carefully reviewed the data and reached the following consensus: 1) All women should engage in shared decision-making with their providers to decide when to start and how often to screen; 2) All women should have the opportunity to start screening mammography at age 40; 3) For women ages 45-55, we recommend annual screening mammograms; 4) For women ages 55 and over, we support both the transition from an annual to a biennial interval if this aligns more with patient's values and preferences, or continuation with annual screening; 5) All women should discuss with their providers when to stop screening mammograms. Pairer Inspector: David Transcribe Date/Time: Jun 12 2023 1:13P Dictated by: PAOLA GUADALUPE MD This examination was interpreted and the report reviewed and electronically signed by: PAOLA GUADALUPE MD on Jun 12 2023 10:13PM EST [facility] Radiology Study observation (narrative) [facility] DBT Breast - bilateral scree ningOrdered By: [facility]cf Provider on 06-12-2023 [facility] 25-hydroxyvitamin D3 [Mass/V ol]on 05-29-2023 Interpretation and review of laboratory results Abnormal [facility] The reference range interval was based on an analysis of samples from healthy adults and may not pertain to children from 0-18 years old. [facility] VITAMIN D 25 HYDROXYon 05-28 25-hydroxyvitamin D3 [Mass/Vol] 19.3 ng/mL Low 31.0 - 80.0 ng/mL [facility] Comment on above: Classification of 25 [place] Vitamin D status: Deficiency/Insufficiency: < or = 30 ng/ml. Sufficiency/Optimal Levels: 31-80 ng/mL Toxicity: > 100 ng/mL. Test performed by chemiluminescent immunoassay. CBC W Auto Differential pane l (Bld)on 04-22-2024 Basophils (Bld) [#/Vol] 0.03 10*3/uL [facility] Basophils/100 WBC (Bld) 0.6 % [facility] Differential cell count method Nom (Bld) Auto [facility] Eosinophils (Bld) [#/Vol] 0.08 10*3/uL [facility] Eosinophils/100 WBC (Bld) 1.5 % [facility] Erythrocyte distribution width (RBC) [Ratio] 13.0 % 11.5 - 15.0 % [facility] Hematocrit (Bld) [Volume fraction] 41.1 % 36.0 - 46.0 % [facility] Hemoglobin (Bld) [Mass/Vol] 13.5 g/dL 11.5 - 15.5 g/dL [facility] Immature granulocytes (Bld) [#/Vol] 0.06 10*3/uL [facility] Immature granulocytes/100 WBC (Bld) 1.1 % [facility] Lymphocytes (Bld) [#/Vol] 1.23 10*3/uL [facility] Lymphocytes/100 WBC (Bld) 23.3 % [facility] MCH (RBC) [Entitic mass] 30.2 pg 26.0 - 34.0 pg [facility] MCHC (RBC) [Mass/Vol] 32.8 g/dL 30.5 - 36.0 g/dL [facility] MCV (RBC) [Entitic vol] 91.9 fL 80.0 - 100.0 fL [facility] Monocytes (Bld) [#/Vol] 0.73 10*3/uL [facility] Monocytes/100 WBC (Bld) 13.9 % [facility] Neutrophils (Bld) [#/Vol] 3.14 10*3/uL [facility] Neutrophils/100 WBC (Bld) 59.6 % [facility] Nucleated RBC (Bld) [#/Vol] [facility] Nucleated RBC/100 WBC (Bld) [Ratio] 0.0 % /100 WBC [facility] Platelet mean volume (Bld) [Entitic vol] 10.9 fL 9.0 - 12.7 fL [facility] Platelets (Bld) [#/Vol] 170 10*3/uL [facility] RBC (Bld) [#/Vol] 4.47 10*6/uL 3.90 - 5.20 m/uL [facility] WBC (Bld) [#/Vol] 5.27 10*3/uL [facility] Cobalamin (Vitamin B12) [Mas s/Vol]on 05-28-2023 Interpretation and review of laboratory results Abnormal [facility] FERRITINon 05-28-2023 Ferritin [Mass/Vol] 126.0 ng/mL 14.7 - 205.1 ng/mL [facility] Ferritin [Mass/Vol]on 2023 Interpretation and review of laboratory results Normal [facility] Iron and Iron binding capaci ty panelon 05-28-2023 Iron [Mass/Vol] 87 ug/dL 41 - 186 ug/dL [facility] Iron binding capacity [Mass/Vol] 363 ug/dL 232 - 386 ug/dL [facility] Iron/TIBC [Molar ratio] 24.0 % 15.0 - 57.0 % [facility] MAGNESIUMon 05-28-2023 Magnesium [Mass/Vol] 1.8 mg/dL 1.7 - 2 .3 mg/dL [facility] No Panel Informationon 05-27 [facility] Interpretation and review of laboratory results Normal [facility] VITAMIN B12on 05-28-2023 Cobalamin (Vitamin B12) [Mass/Vol] pg/mL High 232 - 1245 pg/mL [facility] Basic metabolic 2000 panelon 04-06-2023 Anion gap [Moles/Vol] 6 mmol/L Low 9 - 18 mmol/L [facility] Calcium [Mass/Vol] 10.1 mg/dL 8.5 - 10. 2 mg/dL [facility] Chloride [Moles/Vol] 105 mmol/L 97 - 10 5 mmol/L [facility] CO2 [Moles/Vol] 27 mmol/L 22 - 30 mmol/L [facility] Creatinine [Mass/Vol] 0.93 mg/dL 0.58 - 0.96 mg/dL [facility] Estimated Glomerular Filtration Rate 65 mL/min/1.73m >=60 mL/min/1.7 3m [facility] Glucose [Mass/Vol] 92 mg/dL 74 - 99 mg/dL [facility] Potassium [Moles/Vol] 4.1 mmol/L 3.7 - 5.1 mmol/L [facility] Sodium [Moles/Vol] 138 mmol/L 136 - 144 mmol/L [facility] Urea nitrogen [Mass/Vol] 27 mg/dL High 7 - 21 mg/dL [facility] CBC W Auto Differential pane l (Bld)on 04-06-2023 Basophils (Bld) [#/Vol] 0.03 10*3/uL <0.11 k/uL [facility] Basophils/100 WBC (Bld) 0.6 % [facility] Differential cell count method Nom (Bld) Auto [facility] Eosinophils (Bld) [#/Vol] 0.10 10*3/uL <0.46 k/uL [facility] Eosinophils/100 WBC (Bld) 2.0 % [facility] Erythrocyte distribution width (RBC) [Ratio] 13.2 % 11.5 - 15.0 % [facility] Hematocrit (Bld) [Volume fraction] 39.4 % 36.0 - 46.0 % [facility] Hemoglobin (Bld) [Mass/Vol] 12.9 g/dL 11.5 - 15.5 g/dL [facility] Immature granulocytes (Bld) [#/Vol] 0.04 10*3/uL <0.10 k/uL [facility] Immature granulocytes/100 WBC (Bld) 0.8 % [facility] Lymphocytes (Bld) [#/Vol] 1.12 10*3/uL 1.00 - 4.00 k/uL [facility] Lymphocytes/100 WBC (Bld) 22.9 % [facility] MCH (RBC) [Entitic mass] 29.5 pg 26.0 - 34.0 pg [facility] MCHC (RBC) [Mass/Vol] 32.7 g/dL 30.5 - 36.0 g/dL [facility] MCV (RBC) [Entitic vol] 90.0 fL 80.0 - 100.0 fL [facility] Monocytes (Bld) [#/Vol] 0.56 10*3/uL <0.87 k/uL [facility] Monocytes/100 WBC (Bld) 11.5 % [facility] Neutrophils (Bld) [#/Vol] 3.04 10*3/uL 1.45 - 7.50 k/uL [facility] Neutrophils/100 WBC (Bld) 62.2 % [facility] Nucleated RBC (Bld) [#/Vol] <0.01 k/uL [facility] Nucleated RBC/100 WBC (Bld) [Ratio] 0.0 /100 WBC [facility] Platelet mean volume (Bld) [Entitic vol] 10.2 fL 9.0 - 12.7 fL [facility] Platelets (Bld) [#/Vol] 144 10*3/uL Low 150 - 400 k/uL [facility] RBC (Bld) [#/Vol] 4.38 10*6/uL 3.90 - 5.20 m/uL [facility] WBC (Bld) [#/Vol] 4.89 10*3/uL 3.70 - 11.00 k/uL [facility] HbA1c (Bld)on 04-06-2023 Average glucose Estimated from glycated hemoglobin (Bld) [Mass/Vol] 126 mg/dL [facility] HbA1c (Bld) [Mass fraction] 6.0 % High 4.3 - 5.6 % [facility] Hepatic function 2000 panelo n 04-06-2023 Albumin [Mass/Vol] 3.8 g/dL Low 3.9 - 4.9 g/dL [facility] ALP [Catalytic activity/Vol] 82 U/L 34 - 123 U/L [facility] ALT [Catalytic activity/Vol] 15 U/L 7 - 38 U/L [facility] AST [Catalytic activity/Vol] 21 U/L 13 - 35 U/L [facility] Bilirubin [Mass/Vol] 0.2 mg/dL 0.2 - 1 .3 mg/dL [facility] Bilirubin.conjugated [Mass/Vol] <0.2 mg/dL [facility] Protein [Mass/Vol] 6.1 g/dL Low 6.3 - 8.0 g/dL [facility] Lipid 1996 panelon Cholesterol [Mass/Vol] 134 mg/dL <200 mg/dL [facility] Cholesterol in HDL [Mass/Vol] 55 mg/dL >39 mg/dL [facility] Cholesterol in LDL [Mass/Vol] 59 mg/dL <100 mg/dL [facility] Cholesterol in LDL/Cholesterol in HDL [Mass ratio] 1.07 {ratio} <2.54 [facility] Cholesterol in VLDL [Mass/Vol] 20 mg/dL <30 mg/dL [facility] Cholesterol non HDL [Mass/Vol] 79 mg/dL <130 mg/dL [facility] Cholesterol.total/Cho lesterol in HDL [Mass ratio] 2.44 {ratio} <5.10 [facility] Fasting Time 15 hrs [facility] Triglyceride [Mass/Vol] 102 mg/dL <150 mg/dL [facility] TSH BLDon 04-06-2023 TSH Qn 2.580 m[IU]/L 0.270 - 4.200 mIU/L [facility] Laboratory - Drug toxicology Ordered By: Cesilia Brown on 03-07-2023 Amphetamines Ql (U) Negative <1000 ng/mL [facility] Benzodiazepines Ql (U) Negative < 200 ng/mL [facility] Cannabinoids Screen Ql (U) Negative < 50 ng/mL [facility] Cocaine Ql (U) Negative < 300 ng/mL [facility] Opiates Ql (U) Positive < 300 ng/mL [facility] No Panel InformationOrdered By: Cesilia Brown on 03-07-2023 MDMA (Ecstasy) Screen Negative < 500 ng/mL [facility] Miscellaneous Test See comment [facility] Comment on above: [id number] 6+OXYCODONE-B UND (ng/mL) DRUG RESULT SCREEN CUTOFF____ Amphetamines,Urine Negative ng/mL 1000 Amphetamine test includes Amphetamine and Methamphetamine.Barbiturates Negative ng/mL 200Benzodiazepines Negative ng/mL 200Cannabinoid Negative ng/mL 20Cocaine (Metab) Negative ng/mL 300Opiates Positive ng/mL 300 Opiates test includes Codeine, Morphine, Hydromorphone, Hydrocodone. Codeine Negative 300 Morphine PositiveMorphine Conf,MS,UR >3000 ng/mL 300 Hydromorphone Negative 300 Hydrocodone Negative 300Oxycodone/Oxymorphone,Urine Negative ng/mL 300 Test includes Oxycodone and Oxymorphone. TESTING PERFORMED AT [facility]. ORIGINAL REPORT ON FILE IN LAB CONTAINS ADDITIONAL TEST SITE INFORMATION. Urine Barbiturates Screen Negative < 200 ng/mL [facility] Urine Drug Screen Comment [facility] Comment on above: CONFIRMATORY TESTING FOR ALL POSITIVE URINE DRUG SCREENRESULTS WILL ONLY BE SENT OUT UPON PHYSICIAN ORDER. VISTA Urine Drug Screen methods provide only preliminaryanalytical test results. A more specific alternate chemicalmethod must be used in order to obtain a confirmedanalytical result. Gas chromatography/mass spectrometery(GC/MS) is the preferred confirmatory method. Clinicalconsideration and professional judgement should be appliedto any drug of abuse test result, particularly whenpreliminary positive results are used. URINE TCA TESTING MUST BE ORDERED SEPARATELY. USE TESTMNEMONIC: [facility] Urine Methadone Screen Negative < 300 ng/mL [facility] Urine phencyclidine (PCP) de tectionOrdered By: Cesilia Brown on 03-07-2023 Phencyclidine Ql (U) Negative < 25 ng/mL [facility] Absolute lymphocyte countOrd ered By: Laurie Wang on 02-02-2023 Lymphocytes Auto (Unsp spec) [#/Vol] 1.01 10*3/uL 0.83-4.51 [facility] Basophil percentageOrdered B y: Laurie Wang on 02-02-2023 Basophils/100 WBC (Bld) 0.6 % 0-1 [facility] Bilirubin [Mass/Vol] 0.20 mg/dL 0.20-1.00 [facility] Comment on above: For patients on eltr ombopag therapy, use of [place] TBIL is not recommended. Chloride [Moles/Vol] 108 mmol/L 98-107 [facility] Eosinophils/100 WBC (Bld) 1.8 % 0-5 [facility] Glucose [Mass/Vol] 142 mg/dL 74-106 [facility] Comment on above: Fasting Glucose resu lt greater than or equal to 126 mg/dL suggests DIABETES MELLITUS per A.D.A. criteria. Neutrophils (Bld) [#/Vol] 3.4 10*3/uL 2.0-7.7 [facility] Neutrophils/100 WBC (Bld) 67.4 % 47-70 [facility] Potassium [Moles/Vol] 4.0 mmol/L 3.5-5.1 [facility] Protein [Mass/Vol] 6.8 g/dL 6.4-8.2 [facility] Sodium [Moles/Vol] 140 mmol/L 136-145 [facility] WBC (Bld) [#/Vol] 5.0 10*3/uL 4.4-11.0 [facility] Blood erythrocytes count (nu mber/volume)Ordered By: Laurie Wang on 02-02-2023 RBC (Bld) [#/Vol] 4.18 10*6/uL 4.2-5.4 [facility] Blood hemoglobin measurement (mass/volume)Ordered By: Laurie Wang on 02-02-2023 Hemoglobin (Bld) [Mass/Vol] 12.5 g/dL 12.0-15.0 [facility] Blood lymphocytes/100 leukoc ytesOrdered By: Laurie Wang on 02-02-2023 Lymphocytes/100 WBC (Bld) 20.2 % 19-41 [facility] Blood monocytes/100 leukocyt esOrdered By: Laurie Wang on 02-02-2023 Monocytes/100 WBC (Bld) 9.4 % 0-10 [facility] Blood platelet mean volumeOr dered By: Laurie Wang on 02-02-2023 Platelet mean volume (Bld) [Entitic vol] 10.7 fL 6.2-12.0 [facility] Determination of erythrocyte mean corpuscular volume (MCV)Ordered By: Laurie Wang on 02-02-2023 MCV (RBC) [Entitic vol] 94.7 fL 81-99 [facility] Hematocrit Auto (Bld) [Volum e fraction]Ordered By: Laurie Wang on 02-02-2023 Hematocrit (Bld) [Volume fraction] 39.6 % 37-47 [facility] - Chemistry and C hemistry - challengeOrdered By: Laurie Wang on 02-02-2023 ALP [Catalytic activity/Vol] 80 U/L 45-117 [facility] ALT [Catalytic activity/Vol] 20 U/L 13-56 [facility] CO2 [Moles/Vol] 29.0 mmol/L 21.0-32.0 [facility] Globulin (S) [Mass/Vol] 3.6 g/dL 2.2-4.2 [facility] Urea nitrogen/Creatinine [Mass ratio] 26.2 mg/mg 10-20 [facility] - Hematology and Cell countsOrdered By: Laurie Wang on 02-02-2023 Erythrocyte distribution width (RBC) [Entitic vol] 47.2 fL 35.1-43.9 [facility] Erythrocyte distribution width (RBC) [Ratio] 13.4 % 11.6-14.6 [facility] Immature granulocytes/100 WBC (Bld) 0.600 % 0.0-0.9 [facility] Comment on above: IG% - Immature Granu locytes (promyelocytes, myelocytes and metamyelocytes) > 1% indicates that a LEFT SHIFT is Present. MCH (RBC) [Entitic mass] 29.9 pg 27.0-32.0 [facility] Nucleated RBC/100 WBC (Bld) [Ratio] 0 % 0-5 [facility] MCHC Auto (RBC) [Mass/Vol]Or dered By: Laurie Wang on 02-02-2023 MCHC (RBC) [Mass/Vol] 31.6 g/dL 32-36 [facility] No Panel InformationOrdered By: Laurie Wang on 02-02-2023 Estimated GFR (MDRD) Amer 74 mL/min >60 [facility] Comment on above: GFR Calc Estimated GFR (MDRD) Non-Af Amer 61 mL/min >60 [facility] Comment on above: Non- GFR Calc Platelets bldOrdered By: Zoë Wang on 02-02-2023 Platelets (Bld) [#/Vol] 177 10*3/uL 150-450 [facility] Serum or plasma albumin fredrick urement (mass/volume)Ordered By: Laurie Wang on 02-02-2023 Albumin [Mass/Vol] 3.2 g/dL 3.2-5.0 [facility] Serum or plasma albumin/glob ulin mass ratioOrdered By: Laurie Wang on 02-02-2023 Albumin/Globulin [Mass ratio] 0.9 {ratio} 0.9-2.4 [facility] Serum or plasma calcium fredrick urement (mass/volume)Ordered By: Laurie Wang on 02-02-2023 Calcium [Mass/Vol] 10.0 mg/dL 8.5-10.1 [facility] Serum or plasma creatinine m easurement (mass/volume)Ordered By: Laurie Wang on 02-02-2023 Creatinine [Mass/Vol] 0.95 mg/dL 0.55-1.02 [facility] Comment on above: The validity of the calculated GFR & GFRAA in patients over 70 years has not been determined. Clinical correlation is essential. Serum or plasma urea nitroge n measurement (mass/volume)Ordered By: Laurie Wang on 02-02-2023 Urea nitrogen [Mass/Vol] 25 mg/dL 7-18 [facility] Thin prep Papanicolaou smear with manual screeningOrdered By: Laurie Wang on 02-02-2023 Thin prep Papanicolaou smear with manual screening 19 U/L 15-37 [facility] Thin prep Papanicolaou smear with manual screening 3 5-15 [facility] CREATININE BLDon 01-04-2023 Creatinine [Mass/Vol] 1.32 mg/dL High 0.58 - 0.96 mg/dL [facility] Estimated Glomerular Filtration Rate 42 mL/min/1.73m Low >=60 mL/min/1.7 3m [facility] ALBUMIN/CREAT RATIO RND URon 12-12-2022 Albumin DL <= 20 mg/L (U) [Mass/Vol] 212.4 mg/L [facility] Albumin/Creatinine (U) [Mass ratio] 180 mg/g High <30 mg/g [facility] Creatinine (U) [Mass/Vol] 117.8 mg/dL 20.0 - 300.0 mg/dL [facility] Urinalysis complete panel (U )on 12-12-2022 Bacteria LM.HPF (Urine sed) [#/Area] Negative Negative /HPF [facility] Bil[facility] Ql (U) Negative [facility] Clarity (Unsp spec) Clear Clear [facility] Color (U) Yellow Yellow [facility] Epithelial cells LM.HPF (Urine sed) [#/Area] None Seen [facility] Glucose Test strip (U) [Mass/Vol] Negative Negative [facility] Hemoglobin Ql (U) Negative Negative [facility] Hyaline casts (Urine sed) [#/Area] 0 /[LPF] 0 /LPF [facility] Ketones Ql (U) Negative Negative [facility] Leukocyte esterase Test strip Ql (U) Trace Abnormal Negative [facility] Nitrite Ql (U) Negative Negative [facility] pH (U) 6.0 [pH] <8.5 [facility] Protein (U) [Mass/Vol] 2+ Abnormal Negative [facility] RBC LM.HPF (Urine sed) [#/Area] 0-2 /HPF 0-2 /HPF [facility] Specific gravity (U) [Rel density] 1.026 1.005 - 1.030 [facility] Urobilinogen Ql (U) 1.0 EU/dL 0.2-1.0 EU/dL [facility] WBC LM.HPF (Urine sed) [#/Area] 0-5 /HPF 0-5 /HPF [facility] Basic metabolic 2000 panelon 10-05-2022 Anion gap [Moles/Vol] 6 mmol/L Low 9 - 18 mmol/L [facility] Calcium [Mass/Vol] 10.2 mg/dL 8.5 - 10. 2 mg/dL [facility] Chloride [Moles/Vol] 108 mmol/L High 97 - 10 5 mmol/L [facility] CO2 [Moles/Vol] 24 mmol/L 22 - 30 mmol/L [facility] Creatinine [Mass/Vol] 1.21 mg/dL High 0.58 - 0.96 mg/dL [facility] Estimated Glomerular Filtration Rate 47 mL/min/1.73m Low >=60 mL/min/1.7 3m [facility] Glucose [Mass/Vol] 126 mg/dL High 74 - 99 mg/dL [facility] Potassium [Moles/Vol] 4.3 mmol/L 3.7 - 5.1 mmol/L [facility] Sodium [Moles/Vol] 138 mmol/L 136 - 144 mmol/L [facility] Urea nitrogen [Mass/Vol] 31 mg/dL High 7 - 21 mg/dL [facility] CBC W Auto Differential pane l (Bld)on 10-05-2022 Basophils (Bld) [#/Vol] <0.11 k/uL [facility] Basophils/100 WBC (Bld) 0.3 % [facility] Differential cell count method Nom (Bld) Auto [facility] Eosinophils (Bld) [#/Vol] 0.07 10*3/uL <0.46 k/uL [facility] Eosinophils/100 WBC (Bld) 1.1 % [facility] Erythrocyte distribution width (RBC) [Ratio] 13.0 % 11.5 - 15.0 % [facility] Hematocrit (Bld) [Volume fraction] 38.3 % 36.0 - 46.0 % [facility] Hemoglobin (Bld) [Mass/Vol] 12.7 g/dL 11.5 - 15.5 g/dL [facility] Immature granulocytes (Bld) [#/Vol] 0.03 10*3/uL <0.10 k/uL [facility] Immature granulocytes/100 WBC (Bld) 0.5 % [facility] Lymphocytes (Bld) [#/Vol] 1.23 10*3/uL 1.00 - 4.00 k/uL [facility] Lymphocytes/100 WBC (Bld) 20.0 % [facility] MCH (RBC) [Entitic mass] 30.1 pg 26.0 - 34.0 pg [facility] MCHC (RBC) [Mass/Vol] 33.2 g/dL 30.5 - 36.0 g/dL [facility] MCV (RBC) [Entitic vol] 90.8 fL 80.0 - 100.0 fL [facility] Monocytes (Bld) [#/Vol] 0.58 10*3/uL <0.87 k/uL [facility] Monocytes/100 WBC (Bld) 9.4 % [facility] Neutrophils (Bld) [#/Vol] 4.23 10*3/uL 1.45 - 7.50 k/uL [facility] Neutrophils/100 WBC (Bld) 68.7 % [facility] Nucleated RBC (Bld) [#/Vol] <0.01 k/uL [facility] Nucleated RBC/100 WBC (Bld) [Ratio] 0.0 /100 WBC [facility] Platelet mean volume (Bld) [Entitic vol] 10.4 fL 9.0 - 12.7 fL [facility] Platelets (Bld) [#/Vol] 154 10*3/uL 150 - 400 k/uL [facility] RBC (Bld) [#/Vol] 4.22 10*6/uL 3.90 - 5.20 m/uL [facility] WBC (Bld) [#/Vol] 6.16 10*3/uL 3.70 - 11.00 k/uL [facility] Hepatic function 2000 panelo n 10-05-2022 Albumin [Mass/Vol] 4.0 g/dL 3.9 - 4.9 g/dL [facility] ALP [Catalytic activity/Vol] 77 U/L 34 - 123 U/L [facility] ALT [Catalytic activity/Vol] 14 U/L 7 - 38 U/L [facility] AST [Catalytic activity/Vol] 17 U/L 13 - 35 U/L [facility] Bilirubin [Mass/Vol] 0.2 mg/dL 0.2 - 1 .3 mg/dL [facility] Bilirubin.conjugated [Mass/Vol] <0.2 mg/dL [facility] Protein [Mass/Vol] 6.4 g/dL 6.3 - 8.0 g/dL [facility] Urinalysis complete panel (U )on 09-19-2022 Bilirubin Ql (U) Negative Negative [facility] Clarity (Unsp spec) Clear Clear [facility] Color (U) Light Yellow Yellow [facility] Epithelial cells LM.HPF (Urine sed) [#/Area] Few [facility] Glucose Test strip (U) [Mass/Vol] Negative Trace, Negative [facility] Hemoglobin Ql (U) Trace Negative, Trace [facility] Ketones Ql (U) Negative Trace, Negative [facility] Leukocyte esterase Test strip Ql (U) 75 Gabriele/uL Abnormal Negative, 25 Gabriele/uL [facility] Nitrite Ql (U) Negative Negative [facility] pH (U) 6.5 [pH] 5.0 - 8.0 [facility] Protein (U) [Mass/Vol] Trace Trace, Negative [facility] RBC LM.HPF (Urine sed) [#/Area] 6-10 /HPF Abnormal 0-3 /HPF [facility] Specific gravity (U) [Rel density] 1.016 1.005 - 1.030 [facility] Urobilinogen Ql (U) Negative Negative [facility] WBC LM.HPF (Urine sed) [#/Area] 11-25 /HPF Abnormal 0-5 /HPF [facility] UA DIP, URINE (POC)on 2022 BILIRUBIN UA (POCT) Negative Negative [facility] CLARITY UA (POCT) Clear [facility] COLOR UA (POCT) Yellow [facility] GLUCOSE UA (POCT) Negative Negative mg/dL [facility] HEMOGLOBIN/BLOOD UA (POCT) Small Abnormal Negative [facility] KETONE UA (POCT) Negative Negative mg/dL [facility] LEUKOCYTES UA (POCT) Small Abnormal Negative [facility] NITRITE UA (POCT) Negative Negative [facility] PH UA (POCT) 6.5 4.5 - 8.0 [facility] Protein Ql (U) Trace Abnormal Negative mg/dL [facility] SPECIFIC GRAVITY UA (POCT) 1.015 1.005 - 1.030 [facility] UROBILINOGEN UA (POCT) 0.2 E.U./dL Normal E.U./dL [facility] Absolute lymphocyte countOrd ered By: Dr. Smart on 04-15-2022 Lymphocytes Auto (Unsp spec) [#/Vol] 0.37 10*3/uL 0.83-4.51 [facility] Basophil percentageOrdered B y: Dr. Smart on 04-15-2022 Basophils/100 WBC (Bld) 0.3 % 0-1 [facility] Bilirubin [Mass/Vol] 0.50 mg/dL 0.20-1.00 [facility] Comment on above: For patients on eltr ombopag therapy, use of [place] TBIL is not recommended. Chloride [Moles/Vol] 106 mmol/L 98-107 [facility] Eosinophils/100 WBC (Bld) 0.3 % 0-5 [facility] Glucose [Mass/Vol] 175 mg/dL 74-106 [facility] Comment on above: Fasting Glucose resu lt greater than or equal to 126 mg/dL suggests DIABETES MELLITUS per A.D.A. criteria. Neutrophils (Bld) [#/Vol] 6.3 10*3/uL 2.0-7.7 [facility] Neutrophils/100 WBC (Bld) 85.3 % 47-70 [facility] Potassium [Moles/Vol] 3.5 mmol/L 3.5-5.1 [facility] Protein [Mass/Vol] 6.6 g/dL 6.4-8.2 [facility] Sodium [Moles/Vol] 138 mmol/L 136-145 [facility] WBC (Bld) [#/Vol] 7.4 10*3/uL 4.4-11.0 [facility] Blood erythrocytes count (nu mber/volume)Ordered By: Dr. Smart on 04-15-2022 RBC (Bld) [#/Vol] 4.80 10*6/uL 4.2-5.4 [facility] Blood hemoglobin measurement (mass/volume)Ordered By: Dr. Smart on 04-15-2022 Hemoglobin (Bld) [Mass/Vol] 14.5 g/dL 12.0-15.0 [facility] Blood lymphocytes/100 leukoc ytesOrdered By: Dr. Smart on 04-15-2022 Lymphocytes/100 WBC (Bld) 5.0 % 19-41 [facility] Blood manual differential co mment interpretation (narrative result)Ordered By: Dr. Smart on 04-15-2022 Manual differential comment Umberto (Bld) [Interp] SCANNED [facility] Blood monocytes/100 leukocyt esOrdered By: Dr. Smart on 04-15-2022 Monocytes/100 WBC (Bld) 8.6 % 0-10 [facility] Blood platelet mean volumeOr dered By: Dr. Smart on 04-15-2022 Platelet mean volume (Bld) [Entitic vol] 10.7 fL 6.2-12.0 [facility] Clostridium difficile detect ion by polymerase chain reactionOrdered By: Dr. Smart on 04-15-2022 C. difficile DNA GUNNER+probe Ql (Unsp spec) [facility] Determination of erythrocyte mean corpuscular volume (MCV)Ordered By: Dr. Smart on 04-15-2022 MCV (RBC) [Entitic vol] 91.7 fL 81-99 [facility] Gastrointestinal pathogens p anshul GUNNER+probe (Stl)Ordered By: Dr. Smart on 04-15-2022 Enteric Bacteriology Rotavirus [facility] Hematocrit Auto (Bld) [Volum e fraction]Ordered By: Dr. Smart on 04-15-2022 Hematocrit (Bld) [Volume fraction] 44.0 % 37-47 [facility] - Chemistry and C hemistry - challengeOrdered By: Dr. Smart on 04-15-2022 ALP [Catalytic activity/Vol] 95 U/L 45-117 [facility] ALT [Catalytic activity/Vol] 52 U/L 13-56 [facility] CO2 [Moles/Vol] 21.0 mmol/L 21.0-32.0 [facility] Globulin (S) [Mass/Vol] 3.3 g/dL 2.2-4.2 [facility] Urea nitrogen/Creatinine [Mass ratio] 23.6 mg/mg 10-20 [facility] - Hematology and Cell countsOrdered By: Dr. Smart on 04-15-2022 Erythrocyte distribution width (RBC) [Entitic vol] 42.5 fL 35.1-43.9 [facility] Erythrocyte distribution width (RBC) [Ratio] 12.6 % 11.6-14.6 [facility] Immature granulocytes/100 WBC (Bld) 0.500 % 0.0-0.9 [facility] Comment on above: IG% - Immature Granu locytes (promyelocytes, myelocytes and metamyelocytes) > 1% indicates that a LEFT SHIFT is Present. MCH (RBC) [Entitic mass] 30.2 pg 27.0-32.0 [facility] Nucleated RBC/100 WBC (Bld) [Ratio] 0 % 0-5 [facility] MCHC Auto (RBC) [Mass/Vol]Or dered By: Dr. Smart on 04-15-2022 MCHC (RBC) [Mass/Vol] 33.0 g/dL 32-36 [facility] No Panel InformationOrdered By: Dr. Smart on 04-15-2022 Estimated Creatinine Clearance Calc 33.95 ml/min [facility] Estimated GFR (MDRD) Amer 65 mL/min >60 [facility] Comment on above: GFR Calc Estimated GFR (MDRD) Non-Af Amer 54 mL/min >60 [facility] Comment on above: Non- GFR Calc Platelets bldOrdered By: Dr. Smart on 04-15-2022 Platelets (Bld) [#/Vol] 145 10*3/uL 150-450 [facility] Serum or plasma albumin fredrick urement (mass/volume)Ordered By: Dr. Smart on 04-15-2022 Albumin [Mass/Vol] 3.3 g/dL 3.2-5.0 [facility] Serum or plasma albumin/glob ulin mass ratioOrdered By: Dr. Smart on 04-15-2022 Albumin/Globulin [Mass ratio] 1.0 {ratio} 0.9-2.4 [facility] Serum or plasma calcium fredrick urement (mass/volume)Ordered By: Dr. Smart on 04-15-2022 Calcium [Mass/Vol] 9.4 mg/dL 8.5-10.1 [facility] Serum or plasma creatinine m easurement (mass/volume)Ordered By: Dr. Smart on 04-15-2022 Creatinine [Mass/Vol] 1.06 mg/dL 0.55-1.02 [facility] Comment on above: The validity of the calculated GFR & GFRAA in patients over 70 years has not been determined. Clinical correlation is essential. Serum or plasma urea nitroge n measurement (mass/volume)Ordered By: Dr. Smart on 04-15-2022 Urea nitrogen [Mass/Vol] 25 mg/dL 7-18 [facility] Stool Clostridium difficile detectionOrdered By: Dr. Smart on 04-15-2022 C. difficile Ql (Stl) [facility] Stool lactoferrin detection by immunoassayOrdered By: Dr. Smart on 04-15-2022 Lactoferrin IA Ql (l) [facility] Thin prep Papanicolaou smear with manual screeningOrdered By: Dr. Smart on 04-15-2022 Thin prep Papanicolaou smear with manual screening 57 U/L 15-37 [facility] Thin prep Papanicolaou smear with manual screening 11 5-15 [facility] 25(OH)D3 SerPl-mCncon 2022 25-hydroxyvitamin D3 [Mass/Vol] 34.6 ng/mL Normal 31.0-80.0 [facility] Comment on above: Order Comment: Speci men Type: BLOOD SPECIMEN Ordering Facility: [facility] Address: [address] [place] [id number] Result Comment: Clas sification of 25 [place] Vitamin D status: Deficiency/Insufficiency: < or = 30 ng/ml. Sufficiency/Optimal Levels: 31-80 ng/mL Toxicity: > 100 ng/mL. Test performed by chemiluminescent immunoassay. Performed By: #### 1 989-3 #### [facility] CLIA [id number] [address] [facility] [address] [id number] [id number] [place] ACETYLCHO R MOD ABon 023 ACETYLCHOLINE RECEPT/MODULATING 0 % Normal <=45 [facility] Comment on above: Order Comment: Speci darren Type: BLOOD SPECIMENOrdering Facility: [facility] Address: [address] [address] Result Comment: INTE RPRETIVE INFORMATION: Acetylcholine Modulating Ab Negative .......... 0-45 percent modulating Positive .......... 46 percent or greater modulating Approximately 85-90 percent of patients with myasthenia gravis (MG) express antibodies to the acetylcholine receptor (AChR), which can be divided into binding, blocking, and modulating antibodies. Binding antibody can activate complement and lead to loss of AChR. Blocking antibody may impair binding of acetylcholine to the receptor, leading to poor muscle contraction. Modulating antibody causes receptor endocytosis resulting in loss of AChR expression, which correlates most closely with clinical severity of disease. Approximately 10-15 percent of individuals with confirmed myasthenia gravis have no measurable binding, blocking, or modulating antibodies. This test was developed and its performance characteristics determined by [facility]. It has not been cleared or approved by the [place] Food and Drug Administration. This test was performed in a CLIA certified laboratory and is intended for clinical purposes. Performed By: [facility] [address] [place] [address] City Bailiff: Jaden Hilton MD, PhD Performed By: #### A CEMOD ####[facility] [id number] [place] [address] ACETYLCHOLINE REC BINDING AB on 04-09-2022 ACETYLCHOLINE BINDING, QUAL Negative Normal Negative [facility] Comment on above: Order Comment: Fly darren Type: BLOOD SPECIMENOrdering Facility: [facility] Address: [address] [phone] Result Comment: Anti -acetylcholine receptor binding antibody test is used as an aid in diagnosis of myasthenia gravis. A negative result cannot exclude myasthenia gravis. Clinical correlation is required. Performed By: #### A CHRAB ####[facility] [id number] [address] Acetylcholine receptor binding Ab (S) [Moles/Vol] <0.02 Normal <0.21 [facility] Comment on above: Order Comment: Fly banks Type: BLOOD SPECIMENOrdering Facility: [facility] Address: [address] [place] [address] Performed By: #### A CHRAB ####[facility] [id number] [address] ACETYLCHOLINE REC BLOCKING A Bon 04-09-2022 ACETYLCHOLINE BLOCKING, QUAL Negative Normal Negative [facility] Comment on above: Order Comment: Fly banks Type: BLOOD SPECIMENOrdering Facility: [facility] Address: [address] [place] [address] Result Comment: Anti -acetylcholine receptor blocking antibody test is used as an aid in diagnosis of myasthenia gravis. A negative result cannot exclude myasthenia gravis. Clinical correlation is required. Performed By: #### A CEBAB ####[facility] [id number] [address] Acetylcholine receptor blocking Ab/Acetylcholine Ab.total (S) [Molar fraction] <13 Normal <21 [facility] Comment on above: Order Comment: Fly banks Type: BLOOD SPECIMENOrdering Facility: [facility] Address: [address] [place] [address] Performed By: #### A CEBAB ####[facility] [id number] [address] [place] CASE MANAGEMon 04-09-2022 CASE MANAGEM HNO ID: [id number] Author: TOMY Reed Service: ? Author Type: Personal Companion Type: Care Mgt Progress Note Filed: 04/09/2022 12:31 PM Note Text: CARE MANAGEMENT DISCHARGE NOTE SERVICE DATE: 04/09/2022 SERVICE TIME: 12:20 pm LOS: 1 day Admission Date: 04/07/2022 DISCHARGE ARRANGEMENT (list agency and phone number) Discharge Arrangement: Home with Relative, Home with Self Care CAREGIVER ASSESSMENT: Caregiver is ready, willing and able to meet the patient's needs as recommended by the inter-professional team:: Yes Patient's transition needs and plan for meeting these needs: Return home with daughter and self care HANDOFF COMMUNICATION: Handoff to: Primary Care Physician Primary Care Physician Name/Phone: Dr. Connors [phone] TRANSPORTATION ARRANGEMENTS: Transportation Arrangements: Car PT rec OP therapy and OT rec HHC. SW met with pt bedside. Pt reported she has numerous upcoming appointments and declined both at this time. Pt confirmed she lives with her 46 year old daughter and has a walker that she uses to help transfer into/out of the car. Discussed that if pt feels she needs OP therapy or HHC pt can call PCP to order. Pt confirmed understanding and confirmed daughter to transport. RN updated. Discharge Time Out Yes Bedside RN present No Does pt have transport home? Yes Did pt use bedside pharmacy? No SIGNATURE: TOMY Reed PATIENT NAME: Saeid Urbina DATE: April 09, 2022 TIME: 12:28 PM PAGER/CONTACT #: [phone] Normal [facility] CBC W Auto Differential pane l (Bld)on 04-09-2022 Basophils (Bld) [#/Vol] 0.04 10*3/uL Normal <0.11 [facility] Comment on above: Order Comment: Speci men Type: BLOOD SPECIMENOrdering Facility: [facility] Address: [address] [address] Performed By: #### 5 7021-8 ####[facility] [id number] [place] [address] [place] Basophils/100 WBC (Bld) 0.7 % Normal [facility] Comment on above: Order Comment: Fly banks Type: BLOOD SPECIMENOrdering Facility: [facility] Address: [address] [address] Performed By: #### 5 7021-8 ####[facility] [id number] [address] Differential cell count method Nom (Bld) Auto Normal [facility] Comment on above: Order Comment: Speci men Type: BLOOD SPECIMENOrdering Facility: [facility] Address: [address] [place] [address] Performed By: #### 5 7021-8 ####[facility] [id number] [place] [address] [place] Eosinophils (Bld) [#/Vol] 0.08 10*3/uL Normal <0.46 [facility] Comment on above: Order Comment: Speci men Type: BLOOD SPECIMENOrdering Facility: [facility] Address: [address] [place] [address] Performed By: #### 5 7021-8 ####[facility] [id number] [address] Eosinophils/100 WBC (Bld) 1.4 % Normal [facility] Comment on above: Order Comment: Speci men Type: BLOOD SPECIMENOrdering Facility: [facility] Address: [address] [place] [address] Performed By: #### 5 7021-8 ####[facility] [id number] [address] [place] Erythrocyte distribution width (RBC) [Ratio] 12.6 % Normal 11.5-15.0 [facility] Comment on above: Order Comment: Speci men Type: BLOOD SPECIMENOrdering Facility: [facility] Address: [address] [place] [address] Performed By: #### 5 7021-8 ####[facility] LABORATORYCLIA [id number] [address] [place] Hematocrit (Bld) [Volume fraction] 36.1 % Normal 36.0-46.0 [facility] Comment on above: Order Comment: Speci men Type: BLOOD SPECIMENOrdering Facility: [facility] Address: [address] [address] Performed By: #### 5 7021-8 ####[facility] LABORATORYCLIA [id number] [place] [address] [place] Hemoglobin (Bld) [Mass/Vol] 12.2 g/dL Normal 11.5-15.5 [facility] Comment on above: Order Comment: Speci men Type: BLOOD SPECIMENOrdering Facility: [facility] Address: [address] [place] [address] Performed By: #### 5 7021-8 ####[facility] LABORATORYCLIA [id number] [place] [address] [place] Immature granulocytes (Bld) [#/Vol] 0.04 10*3/uL Normal <0.10 [facility] Comment on above: Order Comment: Speci men Type: BLOOD SPECIMENOrdering Facility: [facility] Address: [address] [place] [address] Performed By: #### 5 7021-8 ####[facility] LABORATORYCLIA [id number] [address] [place] Immature granulocytes/100 WBC (Bld) 0.7 % Normal [facility] Comment on above: Order Comment: Speci men Type: BLOOD SPECIMENOrdering Facility: [facility] Address: [address] [place] [address] Performed By: #### 5 7021-8 ####[facility] LABORATORYCLIA [id number] [place] [address] [place] Lymphocytes (Bld) [#/Vol] 1.49 10*3/uL Normal 1.00-4.00 [facility] Comment on above: Order Comment: Speci men Type: BLOOD SPECIMENOrdering Facility: [facility] Address: [address] [place] [address] Performed By: #### 5 7021-8 ####[facility] LABORATORYCLIA [id number] [place] [address] [place] Lymphocytes/100 WBC (Bld) 26.7 % Normal [facility] Comment on above: Order Comment: Speci men Type: BLOOD SPECIMENOrdering Facility: [facility] Address: [address] [place] [address] Performed By: #### 5 7021-8 ####[facility] LABORATORYCLIA [id number] [address] MCH (RBC) [Entitic mass] 30.8 pg Normal 26.0-34.0 [facility] Comment on above: Order Comment: Speci men Type: BLOOD SPECIMENOrdering Facility: [facility] Address: [address] [place] [address] Performed By: #### 5 7021-8 ####[facility] LABORATORYCLIA [id number] [address] MCHC (RBC) [Mass/Vol] 33.8 g/dL Normal 30.5-36.0 [facility] Comment on above: Order Comment: Speci men Type: BLOOD SPECIMENOrdering Facility: [facility] Address: [address] [place] [address] Performed By: #### 5 7021-8 ####[facility] LABORATORYCLIA [id number] [address] MCV (RBC) [Entitic vol] 91.2 fL Normal 80.0-100.0 [facility] Comment on above: Order Comment: Speci men Type: BLOOD SPECIMENOrdering Facility: [facility] Address: [address] [place] [address] Performed By: #### 5 7021-8 ####[facility] LABORATORYCLIA [id number] [address] Monocytes (Bld) [#/Vol] 0.80 10*3/uL Normal <0.87 [facility] Comment on above: Order Comment: Speci men Type: BLOOD SPECIMENOrdering Facility: [facility] Address: [address] [place] [address] Performed By: #### 5 7021-8 ####[facility] LABORATORYCLIA [id number] [address] Monocytes/100 WBC (Bld) 14.3 % Normal [facility] Comment on above: Order Comment: Speci men Type: BLOOD SPECIMENOrdering Facility: [facility] Address: [address] [place] [address] Performed By: #### 5 7021-8 ####[facility] LABORATORYCLIA [id number] [place] [address] [place] Neutrophils (Bld) [#/Vol] 3.13 10*3/uL Normal 1.45-7.50 [facility] Comment on above: Order Comment: Speci men Type: BLOOD SPECIMENOrdering Facility: [facility] Address: [address] [place] [address] Performed By: #### 5 7021-8 ####[facility] LABORATORYCLIA [id number] [place] [address] [place] Neutrophils/100 WBC (Bld) 56.2 % Normal [facility] Comment on above: Order Comment: Speci men Type: BLOOD SPECIMENOrdering Facility: [facility] Address: [address] [place] [address] Performed By: #### 5 7021-8 ####[facility] LABORATORYCLIA [id number] [place] [address] [place] Nucleated RBC (Bld) [#/Vol] 10*3/uL Normal <0.01 [facility] Comment on above: Order Comment: Speci men Type: BLOOD SPECIMENOrdering Facility: [facility] Address: [address] [place] [address] Performed By: #### 5 7021-8 ####[facility] LABORATORYCLIA [id number] [address] [place] Nucleated RBC/100 WBC (Bld) [Ratio] 0.0 /100 WBC Normal [facility] Comment on above: Order Comment: Speci men Type: BLOOD SPECIMENOrdering Facility: [facility] Address: [address] [place] [address] Performed By: #### 5 7021-8 ####[facility] LABORATORYCLIA [id number] [place] [address] [place] Platelet mean volume (Bld) [Entitic vol] 10.9 fL Normal 9.0-12.7 [facility] Comment on above: Order Comment: Speci men Type: BLOOD SPECIMENOrdering Facility: [facility] Address: [address] [place] [address] Performed By: #### 5 7021-8 ####[facility] LABORATORYCLIA [id number] [place] [address] [facility] [place] Platelets (Bld) [#/Vol] 142 10*3/uL Low 150-400 [facility] Comment on above: Order Comment: Speci darren Type: BLOOD SPECIMENOrdering Facility: [facility] Address: [address] [place] [address] Performed By: #### 5 7021-8 ####[facility] LABORATORYCLIA [id number] [place] [address] [place] RBC (Bld) [#/Vol] 3.96 10*6/uL Normal 3.90-5.20 [facility] Comment on above: Order Comment: Speci men Type: BLOOD SPECIMENOrdering Facility: [facility] Address: [address] [place] [address] Performed By: #### 5 7021-8 ####JONES LABORATORYCLIA [id number] [place] [address] [place] WBC (Bld) [#/Vol] 5.58 10*3/uL Normal 3.70-11.00 [facility] Comment on above: Order Comment: Tracyi men Type: BLOOD SPECIMENOrdering Facility: [facility] Address: [address] [place] [address] Performed By: #### 5 7021-8 ####[facility] LABORATORYCLIA [id number] [address] [place] [id number] [facility] [place] CNDSon 04-09-2022 CNDS HNO ID: [id number] Author: Reji Gomez DO Service: Hospital Medicine Author Type: Physician Type: Discharge Summary Filed: 04/10/2022 4:02 PM Note Text: DISCHARGE SUMMARY PATIENT NAME: Saeid Urbina ADMISSION DATE: 04/07/2022 DISCHARGE DATE: 04/09/2022 ATTENDING PHYSICIAN: No att. providers found Code Status: Prior Highest Readmission Risk Score: 23 The 30 day readmissions risk score is derived from an internally validated risk model which evaluates patient level characteristics, utilization history, medication orders and lab results up until the day of discharge. Patients with a score of 40 or above are considered highest risk for readmission. Specific patient level drivers will be listed at the bottom of the summary. CONSULTING TEAMS DURING HOSPITALIZATION: Nephrology: Dr. Hayden Patterson Neurology: Dr. 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 * OPERATIONS DURING HOSPITALIZATION: None PROCEDURES DURING HOSPITALIZATION: EKG and MRI Discharge Instructions: -EEG ordered for Outpatient. 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 Christina (Neurology) as Outpatient within one week of discharge -You were seen by Nephrology for Hypercalcemia. -Nephrology recommended to discontinue vitamin D supplementation for now. Follow up with your family doctor regarding hypercalcemia. Nephrology recommended, If calcium level continues to trend higher than 11.5-12 then you need follow up with Nephrology for further work-up. 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 Patient has a history of chronic headaches associated with nausea. Earlier this week patient developed a headache over the left eye which is typical of her headaches associated with nausea. She then developed a headache again on evening that at this time is associated with double vision. Patient was seen by her PCP who recommended she come to the ED for an MRI. EKG showed normal sinus rhythm with nonspecific T wave inversion in leads V1 and V2 and isolated T wave inversion in lead III High sensitivity troponin are 8 > 9 Admitted for, Double vision POA: Yes Headaches POA: Yes -CTA head and neck showed Age expected head CT without any acute intracranial disease. V3 vertebral artery mild changes of uncomplicated fibromuscular dysplasia. Otherwise patent extracranial and intracranial CTA circulation. -3/4:in afternoon, patient complained of seeing colors, sarah, leaves -discussed with Neurology Dr. Mesa who recommended CT brain if MRI brain will be not done today. MRI brain scheduled at 5 pm, cancelled CT brain -MRI brain showed Age-appropriate brain without acute intracranial abnormality. -MG panel pending results- ACh R binding/blocking/modulating Abs, anti- MUSK antibody (not done, $500) and LRP4 ab per Neurology -follow up with ophthalmology upon discharge for possible R 6th nerve palsy and L esotropia -EEG ordered, but unable to get at [facility] over the weekend, Neurology ordered for Outpatient -eye patch -Neurology recommended outpatient follow up with Neurology for fibromuscular dysplasia on CTA -Follow up with neurology Dr. Christina in one week of discharge -patient cleared for discharge from Neurology stand point Hypercalcemia POA: Yes -Nephrology recommended avoid giving her vitamin D and If calcium lev (more content not included)... Normal [facility] CONSULT PROGon 04-09-2022 CONSULT PROG HNO ID: [id number] Author: Vi Mesa MD Service: Neurology General Author Type: Physician Type: Consult Progress Note Filed: 04/09/2022 1:09 PM Note Text: TELENEUROLOGY CONSULT PROGRESS NOTE Patient seen using [facility]. Recommendations are placed in the chart. Please review. For questions after hours, when teleneurologist is not available, for [place]: Please Page [phone] for the [facility] from 5pm to 8 am Please follow normal inpatient acute stroke procedures per routine as needed. SERVICE DATE: 04/09/2022 SERVICE TIME: 11:14 am ATTENDING: Reji Gomez DO Subjective Interval History: Saeid is stable. She continues to have double vision that corrects with closing either eye. Since yesterday, she started having visual hallucinations on either eye - green ferns/blue and pink sarah/ or just colors; looks like it is moving up until it goes away from her vision. These are less today. Eyes feel better to her. MRI brain w/wo contrast is negative. She mentions that she spoke with daughters, started acupuncture with electricity for bladder issues (needles are placed in the ankles) Objective PHYSICAL EXAM BP 156/70 Pulse 57 Temp (Src) 98.3 (Oral) Resp 18 Ht 5' 0" (1.52m) Wt 214 lb 1.1 oz (97.1kg) SpO2 98% BMI 41.81 kg/(m2). O2 Therapy: Room Air MSE: awake, alert, oriented, language is intact CN: PERRL, VFF, (+) L esotropia but may be less, (+) limited abduction in the R eye, (+) L ptosis not worse after 1 minute upgaze, unable to pry eyes open, cheek puffing good strength, normal hearing to communication, no dysarthria, good tongue strength when pushing against cheeks Motor: no drift, no focal weakness in UE and LE; no fatigability after exercising R deltoid Sensory: intact to LT, no extinction Cerebellar: intact FTN and HTS DATA: Diagnostic tests reviewed for today's visit: MRI brain w/wo contrast - 04/08/22 Age-appropriate brain without acute intracranial abnormality Impression/Recommendations Saeid Urbina is a 71 year old female with h/o colon cancer, diaphragmatic hernia, reflux, hypertension, osteoarthritis, kidney disease, lung nodule, breast cancer, myalgia, obesity, sleep apnea, diabetes; consulted for [place], double vision. Examination reveals L esotropia with weakness on abduction of the R eye with L ptosis and possible fatigability on up gaze, no weakness or fatigability on extremities. CT, CTA brain and neck show no acute changes or LVO but has mild findings for FMD. MRI brain w/wo contrast was negative. PLAN - EEG ordered, but unable to get at [facility] over the weekend, will schedule OP - MG panel pending- ACh R binding/blocking/modulating Abs, anti- MUSK antibody(not done, $500) and LRP4 ab - will f/u result with neuro clinic - follow up with ophthalmology upon discharge for possible R 6th nerve palsy and L esotropia - eye patch - f/u with Dr. Christina as OP I spent a total of 35 minutes on the date of the service which included preparing to see the patient, [id number] patient care (or video call virtual visit if indicated above), completing clinical documentation, obtaining and/or reviewing separately obtained history, performing a medically appropriate examination, counseling tand educating the patient/family/caregiver and ordering medications, tests or procedures. >50% of time in counseling Teleneurology will not follow this patient. Please call for additional assistance. SIGNATURE: Vi Mesa MD PATIENT NAME: Saeid Urbina DATE: April 09, 2022 TIME: 11:14 AM PAGER/CONTACT #: Normal [facility] Comprehensive metabolic 2000 panelon 04-09-2022 Albumin [Mass/Vol] 3.7 g/dL Low 3.9-4.9 [facility] Comment on above: Order Comment: Fly banks Type: BLOOD SPECIMENOrdering Facility: [facility] Address: [address] [place], [place] [id number] Performed By: #### 2 432 ####JONES LABORATORYCLIA [id number] [place] [address] [place] [facility] ALP [Catalytic activity/Vol] 83 U/L Normal 34-123 [facility] Comment on above: Order Comment: Fly banks Type: BLOOD SPECIMENOrdering Facility: [facility] Address: [address] [place], [place] [id number] Performed By: #### 2 4323 ####JONES LABORATORYCLIA [id number] [place] [address] [place] [facility] ALT [Catalytic activity/Vol] 18 U/L Normal 7-38 [facility] Comment on above: Order Comment: Speci men Type: BLOOD SPECIMENOrdering Facility: [facility] Address: [address] [place] [address] Performed By: #### 2 4322-8, ####[facility] LABORATORYCLIA [id number] [address] Anion gap [Moles/Vol] 7 mmol/L Low 9-18 [facility] Comment on above: Order Comment: Speci men Type: BLOOD SPECIMENOrdering Facility: [facility] Address: [address] [address] Performed By: #### 2 8, ####[facility] LABORATORYCLIA [id number] [address] AST [Catalytic activity/Vol] 20 U/L Normal 13-35 [facility] Comment on above: Order Comment: Speci men Type: BLOOD SPECIMENOrdering Facility: [facility] Address: [address] [address] Performed By: #### 2 8, ####[facility] LABORATORYCLIA [id number] [address] Bilirubin [Mass/Vol] 0.4 mg/dL Normal 0.2-1.3 [facility] Comment on above: Order Comment: Speci men Type: BLOOD SPECIMENOrdering Facility: [facility] Address: [address] [address] Performed By: #### 2 8, ####[facility] LABORATORYCLIA [id number] [address] Calcium [Mass/Vol] 10.0 mg/dL Normal 8.5-10.2 [facility] Comment on above: Order Comment: Speci men Type: BLOOD SPECIMENOrdering Facility: [facility] Address: [address] [address] Performed By: #### 2 432-8, ####LE[facility] LABORATORYCLIA [id number] [address] Chloride [Moles/Vol] 104 mmol/L Normal 97-105 [facility] Comment on above: Order Comment: Fly banks Type: BLOOD SPECIMENOrdering Facility: [facility] Address: [address] [place] [address] Performed By: #### 2 43238, ####LE[facility] LABORATORYCLIA [id number] [address] OF [facility] CO2 [Moles/Vol] 28 mmol/L Normal 22-30 [facility] Comment on above: Order Comment: Fly banks Type: BLOOD SPECIMENOrdering Facility: [facility] Address: [address] [place] [address] Performed By: #### 2 4328, ####LE[facility] LABORATORYCLIA [id number] [address] Creatinine [Mass/Vol] 0.94 mg/dL Normal 0.58-0.96 [facility] Comment on above: Order Comment: Fly banks Type: BLOOD SPECIMENOrdering Facility: [facility] Address: [address] [place] [address] Performed By: #### 2 8, ####LE[facility] LABORATORYCLIA [id number] [address] ESTIMATED GLOMERULAR FILTRATION RATE 64 mL/min/1.73m??? Normal >=60 [facility] Comment on above: Order Comment: Fly darren Type: BLOOD SPECIMENOrdering Facility: [facility] Address: [address] [place] [address] Result Comment: Susan mated Glomerular Filtration Rate (eGFR) is calculated using the 2020 CKD-EPI creatinine equation. This equation utilizes serum creatinine, sex, and age as parameters. The creatinine assay has traceable calibration to isotope dilution-mass spectrometry. Refer to KDIGO guidelines for clinical interpretation. In patients with unstable renal function, e.g. those with acute kidney injury, the eGFR may not accurately reflect actual GFR. Performed By: #### 2 4323-8, ####LE[facility] LABORATORYCLIA [id number] [place] [address] [place] Glucose [Mass/Vol] 138 mg/dL High 74-99 [facility] Comment on above: Order Comment: Fly banks Type: BLOOD SPECIMENOrdering Facility: [facility] Address: [address] [place] [address] Result Comment: The [place] [employer] (ADA) provides guidance for cutoff values for fasting glucose and random glucose. The ADA defines fasting as no caloric intake for at least 8 hours. Fasting plasma glucose results between 100 to 125 mg/dL indicate increased risk for diabetes (prediabetes). Fasting plasma glucose results greater than or equal to 126 mg/dL meet the criteria for diagnosis of diabetes. In the absence of unequivocal hyperglycemia, results should be confirmed by repeat testing. In a patient with classic symptoms of hyperglycemia or hyperglycemic crisis, random plasma glucose results greater than or equal to 200 mg/dL meet the criteria for diagnosis of diabetes. Reference: Standards of Medical Care in Diabetes 2016, [employer]. Diabetes Care. 2016.39(Suppl 1). Performed By: #### 2 43238, ####LE[facility] LABORATORYCLIA [id number] [place] [address] [place] Potassium [Moles/Vol] 3.9 mmol/L Normal 3.7-5.1 [facility] Comment on above: Order Comment: Fly banks Type: BLOOD SPECIMENOrdering Facility: [facility] Address: [address] [place] [address] Performed By: #### 2 4323-8, ####LEAVITT LABORATORYCLIA [id number] [place] [id number] [place] Protein [Mass/Vol] 5.8 g/dL Low 6.3-8.0 [facility] Comment on above: Order Comment: Fly banks Type: BLOOD SPECIMENOrdering Facility: [facility] Address: [address] [place] [address] Performed By: #### 2 43204-12, ####LEAVITT LABORATORYCLIA [id number] [place] [address] [place] Sodium [Moles/Vol] 139 mmol/L Normal 136-144 [facility] Comment on above: Order Comment: Fly banks Type: BLOOD SPECIMENOrdering Facility: [facility] Address: [address] [place] [address] Performed By: #### 2 4323-8, 79643-9 ####LEAVITT LABORATORYCLIA [id number] [place] [address] [place] Urea nitrogen [Mass/Vol] 20 mg/dL Normal 7-21 [facility] Comment on above: Order Comment: Fly banks Type: BLOOD SPECIMENOrdering Facility: [facility] Address: [address] [place] [address] Performed By: #### 2 4323-8, 18707-4 ####JONES LABORATORYCLIA [id number] [place] [address] [place] Magnesium SerPl-mCncon 04-09 Magnesium [Mass/Vol] 1.7 mg/dL Normal 1.7-2.3 [facility] Comment on above: Order Comment: Fly banks Type: BLOOD SPECIMENOrdering Facility: [facility] Address: [address] [place] [address] Performed By: #### 2 4323-8, 17040-5 ####JONES LABORATORYCLIA [id number] [place] [address] [place] PT panel Coag (PPP)on 2022 INR Coag (PPP) [Relative time] 1.0 {INR} Normal 0.9-1.3 [facility] Comment on above: Order Comment: Fly banks Type: BLOOD SPECIMEN Ordering Facility: [facility] Address: [address] [place] [address] Result Comment: Briana min K Antagonist (VKA) Therapeutic Range: INR 2 to 3 (Target INR of 2.5) Note: For patients treated with VKA drugs, such as warfarin, the [employer] 2012 Guideline recommends a therapeutic INR range of 2 to 3 (target INR of 2.5). This recommendation includes high-risk patients with antiphospholipid syndrome with previous arterial or venous thromboembolism, current-generation mechanical or bioprosthetic aortic heart valve replacement. Note: Patients with mechanical aortic valve replacement and additional risk factors for thromboembolic events (atrial fibrillation, previous thromboembolism, LV dysfunction, hypercoagulable conditions) or an older generation mechanical AVR (i.e., ball in-Cage) or any mechanical MVR should have a INR therapeutic range of 2.5 to 3.5 (target INR of 3). Kevin BURGESS, et al. Chest 2012, 141:7S-47S Swathi WING et al. [facility] 2017, 70: 252-289 Performed By: #### 3 4528-0 #### [facility] CLIA [id number] [place] [address] [place] PT Coag (PPP) [Time] 10.3 s Normal 9.7-13.0 [facility] Comment on above: Order Comment: Fly bakns Type: BLOOD SPECIMEN Ordering Facility: [facility] Address: [address] [place] [address] Performed By: #### 3 4528-0 #### [facility] CLIA [id number] [address] [place] PTH-Intact SerPl-ncon 03- Parathyrin.intact [Mass/Vol] 94 pg/mL High 15-65 [facility] Comment on above: Order Comment: Fly banks Type: BLOOD SPECIMENOrdering Facility: [facility] Address: [address] [place] [address] Performed By: #### 2 731-8 ####[facility] [id number] [facility] [id number] [address] [place] ALLIED HEALTHon 04-08-2022 ALLIED HEALTH HNO ID: [id number] Author: Isabelle Fowler, insurance territory manager Service: Radiology Author Type: Box Office Attendant Type: Allied Health Filed: 04/08/2022 5:34 PM Note Text: Radiology Service Progress Note DATE OF SERVICE: April 08, 2022 TIME: 5:33 PM PATIENT IDENTITY VERIFICATION COMPLETED USING TWO (2) STANDARD IDENTIFIERS: Name and Date of confirmed by patient verbally and Name and Date of confirmed by identification band. FALL SCREENING: Has the patient had 2 falls in the last year or 1 fall with injury or currently using an Ambulatory Assistive Device (Walker, Cane, Wheelchair, Crutches, etc.)? Inpatient: Screened on floor PATIENT GENDER DATA: Female. status: : No status: NO. PATIENT RELEVANT IMPLANT DATA REVIEWED: Yes ALLERGIES: Reviewed and unchanged CONTRAST ALLERGY: NO. EXAM: MRI - CONTRAST TYPE: GROUP II PERIPHERAL IV DATA: Inpatient - refer to LDA documentation sera fields rn via powerport left side of chest RADIOLOGY DEPARTMENT: MR; Exam(s) Completed: Head: Routine Brain SIGNATURE: ALIYA Alexis Tech PATIENT NAME: Saeid Urbina DATE: April 08, 2022 TIME: 5:33 PM [facility] CASE MANAGEMon 04-08-2022 CASE MANAGEM HNO ID: [id number] Author: TOMY Reed Service: ? Author Type: Personal Companion Type: Care Mgt Progress Note Filed: 04/08/2022 12:42 PM Note Text: CARE MANAGEMENT PROGRESS NOTE SERVICE DATE: 04/08/2022 SERVICE TIME: 12:40 pm LOS: 1 day [facility] Follow Up Copy Given: Yes Copy given to:: Patient Method: In Person SW met with pt bedside to provide [facility] letter. Pt refused to sign. Faxed form to admitting for scanning into EMR. Pt given original. SIGNATURE: TOMY Reed PATIENT NAME: Saeid Urbina DATE: April 08, 2022 TIME: 12:41 PM PAGER/CONTACT #: [phone] Normal [facility] CBC W Auto Differential pane l (Bld)on 04-08-2022 Basophils (Bld) [#/Vol] 0.03 10*3/uL Normal <0.11 [facility] Comment on above: Order Comment: Fly banks Type: BLOOD SPECIMEN Ordering Facility: [facility] Address: [address] [place] [address] Performed By: #### 1 989-3 #### [facility] CLIA [id number] [address] [facility] [address] [facility] Basophils/100 WBC (Bld) 0.4 % Normal [facility] Comment on above: Order Comment: Fly banks Type: BLOOD SPECIMEN Ordering Facility: [facility] Address: [address] [place], [place] [address] Performed By: #### 1 989-3 #### [facility] CLIA [id number] [address] [place] [address] [place] Differential cell count method Nom (Bld) Auto Normal [facility] Comment on above: Order Comment: Speci men Type: BLOOD SPECIMEN Ordering Facility: [facility] Address: [address] Performed By: #### 1 989-3 #### [facility] CLIA [id number] [address] [place] [address] [place] Eosinophils (Bld) [#/Vol] 0.07 10*3/uL Normal <0.46 [facility] Comment on above: Order Comment: Speci men Type: BLOOD SPECIMEN Ordering Facility: [facility] Address: [address] Performed By: #### 1 989-3 #### [facility] CLIA [id number] [address] [place] [address] [place] Eosinophils/100 WBC (Bld) 1.0 % Normal [facility] Comment on above: Order Comment: Speci men Type: BLOOD SPECIMEN Ordering Facility: [facility] Address: [address] [place] [address] Performed By: #### 1 989-3 #### [facility] CLIA [id number] [address] [place] [address] [place] Erythrocyte distribution width (RBC) [Ratio] 12.8 % Normal 11.5-15.0 [facility] Comment on above: Order Comment: Speci men Type: BLOOD SPECIMEN Ordering Facility: [facility] Address: [address] [place] [address] Performed By: #### 1 989-3 #### [facility] CLIA [id number] [address] [place] [address] [place] Hematocrit (Bld) [Volume fraction] 38.8 % Normal 36.0-46.0 [facility] Comment on above: Order Comment: Speci men Type: BLOOD SPECIMEN Ordering Facility: [facility] Address: [address] Performed By: #### 1 989-3 #### [facility] CLIA [id number] [address] [place] [address] [place] Hemoglobin (Bld) [Mass/Vol] 13.1 g/dL Normal 11.5-15.5 [facility] Comment on above: Order Comment: Speci men Type: BLOOD SPECIMEN Ordering Facility: [facility] Address: [address] [place], [place] [address] Performed By: #### 1 989-3 #### [facility] CLIA [id number] [address] [place] [address] [place] Immature granulocytes (Bld) [#/Vol] 0.03 10*3/uL Normal <0.10 [facility] Comment on above: Order Comment: Speci men Type: BLOOD SPECIMEN Ordering Facility: [facility] Address: [address] Performed By: #### 1 989-3 #### [facility] CLIA [id number] [address] [place] [address] [place] Immature granulocytes/100 WBC (Bld) 0.4 % Normal [facility] Comment on above: Order Comment: Speci men Type: BLOOD SPECIMEN Ordering Facility: [facility] Address: [address] Performed By: #### 1 989-3 #### [facility] CLIA [id number] [address] [place] [address] [place] Lymphocytes (Bld) [#/Vol] 1.35 10*3/uL Normal 1.00-4.00 [facility] Comment on above: Order Comment: Speci men Type: BLOOD SPECIMEN Ordering Facility: [facility] Address: [address] Performed By: #### 1 989-3 #### [facility] CLIA [id number] [address] [place] [address] [place] Lymphocytes/100 WBC (Bld) 20.0 % Normal [facility] Comment on above: Order Comment: Speci men Type: BLOOD SPECIMEN Ordering Facility: [facility] Address: [address] [place], [place] [address] Performed By: #### 1 989-3 #### [facility] CLIA [id number] [address] [place] [address] [place] MCH (RBC) [Entitic mass] 30.6 pg Normal 26.0-34.0 [facility] Comment on above: Order Comment: Speci men Type: BLOOD SPECIMEN Ordering Facility: [facility] Address: [address] [place], [place] [address] Performed By: #### 1 989-3 #### [facility] CLIA [id number] [address] [place] [address] [place] MCHC (RBC) [Mass/Vol] 33.8 g/dL Normal 30.5-36.0 [facility] Comment on above: Order Comment: Speci men Type: BLOOD SPECIMEN Ordering Facility: [facility] Address: [address] [place], [place] [address] Performed By: #### 1 989-3 #### [facility] CLIA [id number] [address] [place] [address] [place] MCV (RBC) [Entitic vol] 90.7 fL Normal 80.0-100.0 [facility] Comment on above: Order Comment: Speci men Type: BLOOD SPECIMEN Ordering Facility: [facility] Address: [address] [place], [place] [address] Performed By: #### 1 989-3 #### [facility] CLIA [id number] [address] [place] [address] [place] Monocytes (Bld) [#/Vol] 0.87 10*3/uL High <0.87 [facility] Comment on above: Order Comment: Speci men Type: BLOOD SPECIMEN Ordering Facility: [facility] Address: [address] Performed By: #### 1 989-3 #### [facility] CLIA [id number] [address] [place] Monocytes/100 WBC (Bld) 12.9 % Normal [facility] Comment on above: Order Comment: Speci men Type: BLOOD SPECIMEN Ordering Facility: [facility] Address: [address] Performed By: #### 1 989-3 #### [facility] CLIA [id number] [address] [place] [address] [place] Neutrophils (Bld) [#/Vol] 4.41 10*3/uL Normal 1.45-7.50 [facility] Comment on above: Order Comment: Speci men Type: BLOOD SPECIMEN Ordering Facility: [facility] Address: [address] Performed By: #### 1 989-3 #### [facility] CLIA [id number] [address] [place] Neutrophils/100 WBC (Bld) 65.3 % Normal [facility] Comment on above: Order Comment: Speci men Type: BLOOD SPECIMEN Ordering Facility: [facility] Address: [address] [place] [address] Performed By: #### 1 989-3 #### [facility] CLIA [id number] [address] [place] [address] [place] Nucleated RBC (Bld) [#/Vol] 10*3/uL Normal <0.01 [facility] Comment on above: Order Comment: Speci men Type: BLOOD SPECIMEN Ordering Facility: [facility] Address: [address] Performed By: #### 1 989-3 #### [facility] CLIA [id number] [address] [place] [address] [place] Nucleated RBC/100 WBC (Bld) [Ratio] 0.0 /100 WBC Normal [facility] Comment on above: Order Comment: Speci men Type: BLOOD SPECIMEN Ordering Facility: [facility] Address: [address] [place], [place] [address] Performed By: #### 1 989-3 #### [facility] CLIA [id number] [address] [place] [address] [place] Platelet mean volume (Bld) [Entitic vol] 11.0 fL Normal 9.0-12.7 [facility] Comment on above: Order Comment: Speci men Type: BLOOD SPECIMEN Ordering Facility: [facility] Address: [address] [place], [place] [address] Performed By: #### 1 989-3 #### [facility] CLIA [id number] [address] [place] [address] [place] Platelets (Bld) [#/Vol] 169 10*3/uL Normal 150-400 [facility] Comment on above: Order Comment: Speci men Type: BLOOD SPECIMEN Ordering Facility: [facility] Address: [address] [place] [address] Performed By: #### 1 989-3 #### [facility] CLIA [id number] [address] [place] [address] [place] RBC (Bld) [#/Vol] 4.28 10*6/uL Normal 3.90-5.20 [facility] Comment on above: Order Comment: Speci men Type: BLOOD SPECIMEN Ordering Facility: [facility] Address: [address] [place], [place] [address] Performed By: #### 1 989-3 #### [facility] CLIA [id number] [address] [place] [id number] [address] [place] WBC (Bld) [#/Vol] 6.76 10*3/uL Normal 3.70-11.00 [facility] Comment on above: Order Comment: Tracyi men Type: BLOOD SPECIMEN Ordering Facility: [facility] Address: [address] [place] [address] Performed By: #### 1 989-3 #### [facility] CLIA [id number] [address] [facility] [id number] [place] [address] [facility] CONSULTon 04-08-2022 CONSULT HNO ID: [id number] Author: Hayden Anderson MD Service: Nephrology Author Type: Physician Type: Consults Filed: 04/08/2022 1:49 PM Note Text: CONSULT: NEPHROLOGY SERVICE PATIENT NAME: Saeid Urbina DATE of SERVICE: 04/08/22 TIME of SERVICE: 1:42 PM REASON FOR CONSULT: Hypercalcemia REQUESTING PHYSICIAN: Dr. Reji Gomez PRIMARY CARE PHYSICIAN: Yasemin Connors MD CHIEF COMPLAINT: Blurred vision YAKUTAT: Ms. Urbina is a 71 year old female who presents with above chief complaint. She has had off-and-on headaches for several months but about 2 days ago she started noticing blurred vision she would see clearly if she closed one of her eyes as the symptoms persisted she came into the emergency room. She was noted to have calcium level of 10.7 and thereby nephrology consultation was requested. Patient states that she has CKD stage III. Her creatinine however is 0.95. She has had longstanding history of hypertension has had colon cancer for which she received chemotherapy but it had to be stopped after she developed hematoma of the liver. She did have mets to the liver which required her to go through ablation and subsequent chemotherapy. Patient's creatinine had been in the 1-1.5 range during the time that she was getting treated for the colon cancer. Lately her creatinine has been in the 1 range. She has longstanding history of hypertension. Patient had low vitamin D level and was taking 50,000 units of vitamin D once a week. Her last vitamin D level was normal which was checked just a month ago. She takes a loop diuretic. She is not on a thiazide diuretic. She does not take any calcium supplementation. She denies any fever or chills. No nausea. No vomiting. Complains of dizziness. Complains of headache. No nose bleed. No sore throat. No skin rash. No chest pain. No palpitation. No shortness of breath on exertion. No focal weakness. No abdominal pain. No distention. No diarrhea. Complains of constipation. No leg edema. No blood in urine or stool. Has chronic urinary frequency and is getting acupuncture for the incontinence. She has arthritis of the knee and is on Plaquenil but has not been diagnosed with rheumatoid arthritis. PAST MEDICAL HISTORY: PAST MEDICAL HISTORY Diagnosis Date Benign neoplasm of colon Benign polyps. 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 Lumpectomy, completed radiation 06/27/10. No chemotherapy. Myalgia and myositis, unspecified Obesity, unspecified Obesity Obstructive sleep apnea syndrome 05/24/2015 No longer needs CPAP Pain in joint of right shoulder 09/03/2014 Plantar fascial fibromatosis Seborrheic dermatitis, unspecified Shortness of breath Type II or unspecified type diabetes mellitus without mention of complication, not stated as uncontrolled Unspecified hemorrhoids without mention of complication Hemorrhoids Urinary incontinence overactive bladder PAST SURGICAL HISTORY: PAST SURGICAL HISTORY Procedure Laterality Date ADENOIDECTOMY PRIMARY Adenoidectomy BX BREAST PERC NEED W/GUID 02/11/2010 U/S Needle core UOQ right breast bx BX/EXC LYMPH NODE OPEN DEEP AXILLARY NODE 03/16/2010 RIGHT - [facility] Dr. Dung Mayo CATH IMPL VASC ACCESS PORTAL 03/03/2020 DELIVERY ONLY , low cervical x4 CHOLECYSTECTOMY 01/11/1981 Cholecystectomy COLONOSCOPY 06/21/2021 , repeat in 3 years COLONOSCOPY FLX DX W/COLLJ SPEC WHEN PFRMD 08/30/2001 Colonoscopy COLONOSCOPY FLX DX W/COLLJ SPEC WHEN PFRMD 07/17/2012 Colonoscopy COLONOSCOPY FLX DX W/COLLJ SPEC WHEN PFRMD 12/02/2015 Colonoscopy (Needs MAC next time) COLONOSCOPY GEN ANES 01/16/2020 COLONOSCOPY W/BIOPSY SINGLE/MULTIPLE 06/01/2006 EGD 01/16/2020 EGD FLEX REMOVAL LESION(S) BY HOT BIOPSY FORCEPS 08/30/2001 EGD TRANSORAL BIOPSY SINGLE/MULTIPLE 06/01/2006 EGD TRANSORAL BIOPSY SINGLE/MULTIPLE 12/23/2009 [facility]J 06/21/2021 ESOPHAGOGASTRODUODENOSCOPY TRANSORAL DIAGNOSTIC 12/02/2015 EGD IMAGING GUIDED RADIOFREQUENCY LIVER ABLATION 04/2020 ablation IR RADIO FREQUENCY ABLATION 11/2017 LAPAROSCOPIC HEMICOLECTOMY 01/26/2020 LIG/TRNSXJ FLP TUBE ABDL/VAG APPR UNI/BI Tubal ligation MASTECTOMY, PARTIAL 03/16/2010 RIGHT - [facility] Dr. Dung Mayo PREOP PLACEMENT NEEDLE LOC 03/16/2010 U/S wire loc UOQ right breast PULMONARY FUNCTION TEST 05/22/2005 SIGMOIDOSCOPY FLX DX W/COLLJ SPEC BR/WA IF PFRMD 04/06/1999 Sigmoidoscopy, flexible TONSILLECTOMY PRIMARY/SECONDARY Tonsillectomy FAMILY HISTORY: FAMILY HISTORY Problem Relation Age of Onset Diabetes Mother Colon Cancer Mother PASSED FROM THIS AT THE AGE OF 62 (more content not included)... Normal [facility] CONSULT HNO ID: [id number] Author: Vi Mesa MD Service: Neurology General Author Type: Physician Type: Consults Filed: 04/08/2022 5:54 PM Note Text: TELENEUROLOGY INITIAL CONSULT Patient seen using [facility]. Recommendations are placed in the chart. Please review. For questions after hours, when teleneurologist is not available, for [place]: Please Page [phone] for the [facility] from 5 pm to 8 am Please follow normal inpatient acute stroke procedures per routine as needed. SERVICE DATE: 04/08/2022 SERVICE TIME: 8:27 am PRIMARY CARE PHYSICIAN: Yasemin Connors MD CURRENT ATTENDING PROVIDER: Russel Lara MD Subjective REASON FOR EVALUATION: Headaches HISTORY OF PRESENT ILLNESS / CHIEF COMPLAINT: Saeid Urbina is a 71 year old right handed female with h/o colon cancer, diaphragmatic hernia, reflux, hypertension, osteoarthritis, kidney disease, lung nodule, breast cancer, myalgia, obesity, sleep apnea, diabetes. She has h/o breast cancer in 2010, s/p surgery and radiation. Colon cancer diagnosed in Jan 2020, was at stage 4(liver mets s/p ablation), s/p colon surgery and chemotherapy complicated with liver hematoma, chemotherapy changed. Last chemo was in jan 2021. She is currently in remission since Jul 2021. Since chemo, she would intermittent have nausea/vomiting; was told it may still be lingering effect of chemotherapy. For the past 2 months(feb 2022), she has been having L frontal/orbital FOSTER, throbbing in character, 10/10, may be accompanied by nausea/vomiting/light/sound sensitivity, may last 1.5 to 2 hours, may occur every 10 days; relieved by acetaminophen. She had a very bad attack of FOSTER on 02/22/22, unable to abort with acetaminophen, went to [facility], had CT brain that was reportedly negative, recommended to take benadryl and acetaminophen which was helping. Had recurrence of a bad FOSTER on 04/06/22 as she was driving from her oncology visit. Took acetaminophen/benadryl and felt better that night. She woke up with double vision yesterday; described as horizontal vision corrected by closing either eye. Had some FOSTER, took acetaminophen/benadryl which helped. She saw PCP yesterday and advised admission. She denies new ptosis, speech/swallowing/breathing, arm/leg weakness. Mentions she has issues remembering things the past few months. She lives with daughter but otherwise independent. FUNCTIONAL STATUS: Independent PAST MEDICAL HISTORY Diagnosis Date Benign neoplasm of colon Benign polyps. 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 Lumpectomy, completed radiation 06/27/10. No chemotherapy. Myalgia and myositis, unspecified Obesity, unspecified Obesity Obstructive sleep apnea syndrome 05/24/2015 No longer needs CPAP Pain in joint of right shoulder 09/03/2014 Plantar fascial fibromatosis Seborrheic dermatitis, unspecified Shortness of breath Type II or unspecified type diabetes mellitus without mention of complication, not stated as uncontrolled Unspecified hemorrhoids without mention of complication Hemorrhoids Urinary incontinence overactive bladder PAST SURGICAL HISTORY Procedure Laterality Date ADENOIDECTOMY PRIMARY Adenoidectomy BX BREAST PERC NEED W/GUID 02/11/2010 U/S Needle core UOQ right breast bx BX/EXC LYMPH NODE OPEN DEEP AXILLARY NODE 03/16/[address] [facility] [address] Dung Mayo CATH IMPL VASC ACCESS PORTAL 03/03/2020 DELIVERY ONLY , low cervical x4 CHOLECYSTECTOMY 01/11/1981 Cholecystectomy COLONOSCOPY 06/21/2021 , repeat in 3 years COLONOSCOPY FLX DX W/COLLJ SPEC WHEN PFRMD 08/30/2001 Colonoscopy COLONOSCOPY FLX DX W/COLLJ SPEC WHEN PFRMD 07/17/2012 Colonoscopy COLONOSCOPY FLX DX W/COLLJ SPEC WHEN PFRMD 12/02/2015 Colonoscopy (Needs MAC next time) COLONOSCOPY GEN ANES 01/16/2020 COLONOSCOPY W/BIOPSY SINGLE/MULTIPLE 06/01/2006 EGD 01/16/2020 EGD FLEX REMOVAL LESION(S) BY HOT BIOPSY FORCEPS 08/30/2001 EGD TRANSORAL BIOPSY SINGLE/MULTIPLE 06/01/2006 EGD TRANSORAL BIOPSY SINGLE/MULTIPLE 12/23/2009 EGD W/O [facility] SPEC VARICIES INJ 06/21/2021 ESOPHAGOGASTRODUODENOSCOPY TRANSORAL DIAGNOSTIC 12/02/2015 EGD IMAGING GUIDED RADIOFREQUENCY LIVER ABLATION 04/2020 ablation IR RADIO FREQUENCY ABLATION 11/2017 LAPAROSCOPIC HEMICOLECTOMY 01/26/2020 LIG/TRNSXJ FLP TUBE ABDL/VAG APPR UNI/BI Tubal ligation MASTECTOMY, PARTIAL 03/16/[address] [facility] [address] Dung Mayo PREOP PLACEMENT NEEDLE LOC 03/16/2010 U/S wire loc UOQ right breast PULMONARY FUNCTION TEST 05/22/2005 SIGMOIDOSCOPY FLX DX W/COLLJ SPEC BR/WA IF PFRMD 04/06/1999 Sigmoidoscopy, flexi (more content not included)... Normal [facility] Comprehensive metabolic 2000 panelon 04-08-2022 Albumin [Mass/Vol] 4.0 g/dL Normal 3.9-4.9 [facility] Comment on above: Order Comment: Speci men Type: BLOOD SPECIMEN Ordering Facility: [facility] Address: [address] [place] [id number] Performed By: #### 1 989-3 #### [facility] CLIA [id number] [address] [place], [place] [address] [place] [address] [place] ALP [Catalytic activity/Vol] 98 U/L Normal 34-123 [facility] Comment on above: Order Comment: Speci men Type: BLOOD SPECIMEN Ordering Facility: [facility] Address: [address] [place], [place] Performed By: #### 1 989-3 #### [facility] CLIA [id number] [address] [place] ALT [Catalytic activity/Vol] 23 U/L Normal 7-38 [facility] Comment on above: Order Comment: Speci men Type: BLOOD SPECIMEN Ordering Facility: [facility] Address: [address] Performed By: #### 1 989-3 #### [facility] CLIA [id number] [address] [place] Anion gap [Moles/Vol] 9 mmol/L Normal 9-18 [facility] Comment on above: Order Comment: Speci men Type: BLOOD SPECIMEN Ordering Facility: [facility] Address: [address] [place] [address] Performed By: #### 1 989-3 #### [facility] CLIA [id number] [address] [place] AST [Catalytic activity/Vol] 23 U/L Normal 13-35 [facility] Comment on above: Order Comment: Speci men Type: BLOOD SPECIMEN Ordering Facility: [facility] Address: [address] [place], [place] Performed By: #### 1 989-3 #### [facility] CLIA [id number] [address] [place] [address] [place] Bilirubin [Mass/Vol] 0.4 mg/dL Normal 0.2-1.3 [facility] Comment on above: Order Comment: Speci men Type: BLOOD SPECIMEN Ordering Facility: [facility] Address: [address] [place] [address] Performed By: #### 1 989-3 #### [facility] CLIA [id number] [address] [place] [address] [place] Calcium [Mass/Vol] 10.7 mg/dL High 8.5-10.2 [facility] Comment on above: Order Comment: Speci men Type: BLOOD SPECIMEN Ordering Facility: [facility] Address: [address] [place] [address] Performed By: #### 1 989-3 #### [facility] CLIA [id number] [address] [place] [address] [place] Chloride [Moles/Vol] 105 mmol/L Normal 97-105 [facility] Comment on above: Order Comment: Speci men Type: BLOOD SPECIMEN Ordering Facility: [facility] Address: [address] [place] [address] Performed By: #### 1 989-3 #### [facility] CLIA [id number] [address] [place] [address] [place] CO2 [Moles/Vol] 28 mmol/L Normal 22-30 [facility] Comment on above: Order Comment: Speci men Type: BLOOD SPECIMEN Ordering Facility: [facility] Address: [address] [place], [place] [id number] Performed By: #### 1 989-3 #### [facility] CLIA [id number] [address] [place] [address] [place] Creatinine [Mass/Vol] 0.95 mg/dL Normal 0.58-0.96 [facility] Comment on above: Order Comment: Speci men Type: BLOOD SPECIMEN Ordering Facility: [facility] Address: [address] [place], [place] [address] Performed By: #### 1 989-3 #### [facility] CLIA [id number] [address] [place] [address] [place] ESTIMATED GLOMERULAR FILTRATION RATE 63 mL/min/1.73m??? Normal >=60 [facility] Comment on above: Order Comment: Speci men Type: BLOOD SPECIMEN Ordering Facility: [facility] Address: [address] [place] [place] [id number] Result Comment: Susan mated Glomerular Filtration Rate (eGFR) is calculated using the 2020 CKD-EPI creatinine equation. This equation utilizes serum creatinine, sex, and age as parameters. The creatinine assay has traceable calibration to isotope dilution-mass spectrometry. Refer to KDIGO guidelines for clinical interpretation. In patients with unstable renal function, e.g. those with acute kidney injury, the eGFR may not accurately reflect actual GFR. Performed By: #### 1 989-3 #### [facility] CLIA [id number] [address] [place] [address] [place] Glucose [Mass/Vol] 149 mg/dL High 74-99 [facility] Comment on above: Order Comment: Fly banks Type: BLOOD SPECIMEN Ordering Facility: [facility] Address: [address] [place] [place] [address] Result Comment: The [place] Diabetes Association (ADA) provides guidance for cutoff values for fasting glucose and random glucose. The ADA defines fasting as no caloric intake for at least 8 hours. Fasting plasma glucose results between 100 to 125 mg/dL indicate increased risk for diabetes (prediabetes). Fasting plasma glucose results greater than or equal to 126 mg/dL meet the criteria for diagnosis of diabetes. In the absence of unequivocal hyperglycemia, results should be confirmed by repeat testing. In a patient with classic symptoms of hyperglycemia or hyperglycemic crisis, random plasma glucose results greater than or equal to 200 mg/dL meet the criteria for diagnosis of diabetes. Reference: Standards of Medical Care in Diabetes 2016, [place] Diabetes Association. Diabetes Care. 2016.39(Suppl 1). Performed By: #### 1 989-3 #### [facility] CLIA [id number] [address] [place] [address] [place] Potassium [Moles/Vol] 4.0 mmol/L Normal 3.7-5.1 [facility] Comment on above: Order Comment: Fly banks Type: BLOOD SPECIMEN Ordering Facility: [facility] Address: [address] [phone] Performed By: #### 1 989-3 #### [facility] CLIA [id number] [address] [place] [address] [place] Protein [Mass/Vol] 6.5 g/dL Normal 6.3-8.0 [facility] Comment on above: Order Comment: Speci men Type: BLOOD SPECIMEN Ordering Facility: [facility] Address: [address] [place] [address] Performed By: #### 1 989-3 #### [facility] CLIA [id number] [address] [place] [address] [place] Sodium [Moles/Vol] 142 mmol/L Normal 136-144 [facility] Comment on above: Order Comment: Speci men Type: BLOOD SPECIMEN Ordering Facility: [facility] Address: [address] [place] [address] Performed By: #### 1 989-3 #### [facility] CLIA [id number] [address] [place] Urea nitrogen [Mass/Vol] 20 mg/dL Normal 7-21 [facility] Comment on above: Order Comment: Speci men Type: BLOOD SPECIMEN Ordering Facility: [facility] Address: [address] [place] [address] Performed By: #### 1 989-3 #### [facility] CLIA [id number] [address] [place] ED NOTEon 04-08-2022 ED NOTE HNO ID: [id number] Author: Valeria Larson RN Service: Nursing Author Type: Registered Nurse Type: ED Notes Filed: 04/07/2022 11:14 PM Note Text: Pt report given to ELAINE Jorgensen. [facility] ED NOTE HNO ID: [id number] Author: Valeria Larson RN Service: Nursing Author Type: Registered Nurse Type: ED Notes Filed: 04/07/2022 11:14 PM Note Text: Verbal order from MD Luna for routine HS BP rx. [facility] HISTORY PHYSICALon HISTORY PHYSICAL HNO ID: [id number] Author: Rony Sweeney DO Service: Hospital Medicine Author Type: Physician Type: HANDP Filed: 04/08/2022 1:38 AM Note Text: DEPARTMENT OF HOSPITAL MEDICINE HISTORY AND PHYSICAL EXAM SERVICE DATE: 04/08/2022 SERVICE TIME: 1:37 AM Primary Care Physician: Yasemin Connors MD NIGHT AND WEEKEND COVERAGE: [place] [facility] [place] [phone] for any issues or concerns Subjective CHIEF COMPLAINT: Headache (Has been getting headaches for the past 2-3 months that usually causes dizziness and feels like she's spinning and gives her some nausea) and Eye Complaint (Most recent FOSTER started yesterday around 1500 and this time got some double vision with it that has been going on since ) HPI: This is a 71 year old female with PMH of hypertension, rheumatoid arthritis, CKD stage III, history of breast cancer, type 2 diabetes, 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 Patient has a history of chronic headaches associated with nausea. Earlier this week patient developed a headache over the left eye which is typical of her headaches associated with nausea. She then developed a headache again on evening that at this time is associated with blurry vision which has not happened in the past. Blurry vision is only noted with both eyes open, no blurry vision with only 1 eye. Patient states headache is currently gone. She usually takes Benadryl and Tylenol for headaches which seems to help. Patient has not noticed any facial asymmetry any weakness in her arms or legs. Patient was seen by her PCP who recommended she come to the ED for an MRI. In the ED: Afebrile, heart rate 72-87, respiratory rate 1331, blood pressure 159/74 to 223/100, SPO2 94 to 98% on room air WBC 5.6, HCT 38.9, Hgb 13.1, platelet 144 Total calcium 10.3, CK 53 High-sensitivity troponin 8 -> 9 COVID-negative CT Brain/CTA head/neck IMPRESSION: 1. Age expected head CT without any acute intracranial disease. 2. V3 vertebral artery mild changes of uncomplicated fibromuscular dysplasia. 3. Otherwise patent extracranial and intracranial CTA circulation. Labs Reviewed COMP METABOLIC PANEL - Abnormal; Notable for the following components: Result Value Calcium, Total 10.3 (*) All other components within normal limits CBC + DIFF - Abnormal; Notable for the following components: Platelet Count 144 (*) All other components within normal limits Narrative: This is an appended report. These results have been appended to a previously verified report. GLUCOSE, BLOOD (POC) - Abnormal; Notable for the following components: Glucose, Point of Care 179 (*) All other components within normal limits CK CREATINE KINASE - Normal HIGH SENSITIVITY TROPONIN T (INITIAL) - Normal HIGH SENSITIVITY TROPONIN T (SECOND) - Normal EXPEDITED COVID19 - Normal Narrative: This test has been authorized by FDA under an Emergency Use Authorization (EUA). PAST MEDICAL HISTORY Diagnosis Date Benign neoplasm of colon Benign polyps. 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 Lumpectomy, completed radiation 06/27/10. No chemotherapy. Myalgia and myositis, unspecified Obesity, unspecified Obesity Obstructive sleep apnea syndrome 05/24/2015 No longer needs CPAP Pain in joint of right shoulder 09/03/2014 Plantar fascial fibromatosis Seborrheic dermatitis, unspecified Shortness of breath Type II or unspecified type diabetes mellitus without mention of complication, not stated as uncontrolled Unspecified hemorrhoids without mention of complication Hemorrhoids Urinary incontinence overactive bladder PAST SURGICAL HISTORY Procedure Laterality Date ADENOIDECTOMY PRIMARY Adenoidectomy BX BREAST PERC NEED W/GUID 02/11/2010 U/S Needle core UOQ right breast bx BX/EXC LYMPH NODE OPEN DEEP AXILLARY NODE 03/16/2010 RIGHT - [facility] Dr. Dung Mayo CATH IMPL VASC ACCESS PORTAL 03/03/2020 DELIVERY ONLY , low cervical x4 CHOLECYSTECTOMY 01/11/1981 Cholecystectomy COLONOSCOPY 06/21/2021 , repeat in 3 years COLONOSCOPY FLX DX W/COLLJ SPEC WHEN PFRMD 08/30/2001 Colonoscopy COLONOSCOPY FLX DX W/COLLJ SPEC WHEN PFRMD 07/17/2012 Colonoscopy COLONOSCOPY FLX DX W/COLLJ SPEC WHEN PFRMD 12/02/2015 Colonoscopy (Needs MAC next time) COLONOSCOPY GEN ANES 01/16/2020 COLONOSCOPY W/BIOPSY SINGLE/MULTIPLE 06/01/2006 EGD 01/16/2020 EGD FLEX REMOVAL LESION(S) BY HOT BIOPSY FORCEPS 08/30/2001 EGD TRANSORAL BIOPSY SINGLE/MULTIPLE 06/01/2006 (more content not included)... Normal [facility] HbA1c (Bld)on 04-08-2022 Average glucose Estimated from glycated hemoglobin (Bld) [Mass/Vol] 128 mg/dL Normal [facility] Comment on above: Order Comment: Fly banks Type: BLOOD SPECIMENOrdering Facility: [facility] Address: [address] [address] Result Comment: eAG: (Estimated average glucose) is a calculated value from HgbA1c and is medical service representative of the average blood glucose level in the last 2-3 month period. Performed By: #### 5 5454-3 ####[facility] [id number] [place] [address] [place] HbA1c (Bld) [Mass fraction] 6.1 % High 4.3-5.6 [facility] Comment on above: Order Comment: Fly banks Type: BLOOD SPECIMENOrdering Facility: [facility] Address: [address] [address] Result Comment: [place] Diabetes Association guidelines indicate that patients with HgbA1c in the range 5.7-6.4% are at increased risk for development of diabetes, and intervention by lifestyle modification may be beneficial. HgbA1c greater or equal to 6.5% is considered diagnostic of diabetes. Performed By: #### 5 5454-3 ####[facility] [id number] [place] [address] [place] Lipid 1996 panelon Cholesterol [Mass/Vol] 110 mg/dL Normal <200 [facility] Comment on above: Order Comment: Fly banks Type: BLOOD SPECIMEN Ordering Facility: [facility] Address: [address] [address] Result Comment: <200 mg/dL, Desirable 200-239 mg/dL, Borderline high >239 mg/dL, High Performed By: #### 1 989-3 #### [facility] CLIA [id number] [address] Cholesterol in HDL [Mass/Vol] 43 mg/dL Normal >39 [facility] Comment on above: Order Comment: Fly darren Type: BLOOD SPECIMEN Ordering Facility: [facility] Address: [address] [address] Result Comment: 40-5 9 mg/dL, Acceptable >59 mg/dL, High: Negative risk factor for coronary heart disease <40 mg/dL, Low: Positive risk factor for coronary heart disease Performed By: #### 1 989-3 #### [facility] CLIA [id number] [address] Cholesterol in LDL [Mass/Vol] 38 mg/dL Normal <100 [facility] Comment on above: Order Comment: Fly [facility] Type: BLOOD SPECIMEN Ordering Facility: [facility] Address: [address] [address] Result Comment: <100 mg/dL, Optimal 100-129 mg/dL, Near optimal/above optimal 130-159 mg/dL, Borderline high 160-189 mg/dL, High >189 mg/dL, Very high Secondary prevention optimal LDL Cholesterol levels are recommended to be < 70 mg/dL Performed By: #### 1 989-3 #### [facility] CLIA [id number] [address] Cholesterol in LDL/Cholesterol in HDL [Mass ratio] 0.88 {ratio} Normal <2.54 [facility] Comment on above: Order Comment: Fly [facility] Type: BLOOD SPECIMEN Ordering Facility: [facility] Address: [address] [address] Result Comment: Refgudelia cooper: 1. National Cholesterol Education Program ATP III Guideline At-A-Glance Quick Desk Reference: National Heart, Lung, and Blood [place]. National Institutes of Health. 2001: NIH Publication No. 01-3305. 2. An International Atherosclerosis Society position paper: global recommendations for the management of dyslipidemia: executive summary, Atherosclerosis. 2014: 232(2):410-413. Performed By: #### 1 989-3 #### [facility] CLIA [id number] [address] [place] Cholesterol in VLDL [Mass/Vol] 29 mg/dL Normal <30 [facility] Comment on above: Order Comment: Speci men Type: BLOOD SPECIMEN Ordering Facility: [facility] Address: [address] [place] [address] Performed By: #### 1 989-3 #### [facility] CLIA [id number] [address] [place] [address] [place] Cholesterol non HDL [Mass/Vol] 67 mg/dL Normal <130 [facility] Comment on above: Order Comment: Speci men Type: BLOOD SPECIMEN Ordering Facility: [facility] Address: [address] [place] [address] Result Comment: <130 mg/dL, Optimal 130-159 mg/dL, Near optimal/above optimal 160-189 mg/dL, Borderline high 190-219 mg/dL, High >219 mg/dL, Very high Secondary prevention optimal non HDL Cholesterol levels are recommended to be <100 mg/dL Performed By: #### 1 989-3 #### [facility] CLIA [id number] [address] [place] [address] [place] Cholesterol.total/Cho lesterol in HDL [Mass ratio] 2.56 {ratio} Normal <5.10 [facility] Comment on above: Order Comment: Speci men Type: BLOOD SPECIMEN Ordering Facility: [facility] Address: [address] Performed By: #### 1 989-3 #### [facility] CLIA [id number] [address] [place] FASTING TIME 8 hrs Normal [facility] Comment on above: Order Comment: Speci men Type: BLOOD SPECIMEN Ordering Facility: [facility] Address: [address] [address] Performed By: #### 1 989-3 #### [facility] CLIA [id number] [address] [place] Triglyceride [Mass/Vol] 145 mg/dL Normal <150 [facility] Comment on above: Order Comment: Speci men Type: BLOOD SPECIMEN Ordering Facility: [facility] Address: [address] [place] [address] Result Comment: <150 mg/dL, Normal 150-199 mg/dL, Borderline high 200-499 mg/dL, High >499 mg/dL, Very high Performed By: #### 1 989-3 #### [facility] CLIA [id number] [address] [place] [address] [place] MRI BRAIN WO/W IVCONon 04-08 MRI BRAIN WO/W IVCON * * *Final Report* * * DATE OF EXAM: Apr 08 2022 6:05PM [facility] 0295 - MRI BRAIN WO/W IVCON / PROCEDURE REASON: Headache, sudden, severe * * * * Physician Interpretation * * * * COMPARISONS: Head CT from 04/07/2022. HISTORY: Headache. TECHNIQUE: MRI brain without and with contrast. MQ: [id number] CONTRAST: 19 mL [facility] IV. RESULT: MRI BRAIN: Acute abnormality: None. No restricted diffusion concerning for acute ischemia. No abnormal susceptibility concerning for acute hemorrhage. No acute intracranial abnormality is identified. Allowing for change in modality stable age expected sulci, gyri, ventricles, CSF spaces and brain with senescent volume loss, microvascular ischemia, accentuation of CSF spaces and ventricular dilation. No evidence for any acute infarct/hemorrhage, mass effect or collections. Normal bones and skull base soft tissues.. No acute intracranial disease. On contrast no abnormal enhancement in brain or meninges. IMPRESSION: Age-appropriate brain without acute intracranial abnormality. Pairer Inspector: PSCB Transcribe Date/Time: Apr 08 2022 6:57P Dictated by : NIDIA PATEL MD This examination was interpreted and the report reviewed and electronically signed by: NIDIA PATEL MD on Apr 08 2022 7:04PM EST [id number] Normal [facility] Magnesium SerPl-mCncon 04-08 Magnesium [Mass/Vol] 1.8 mg/dL Normal 1.7-2.3 [facility] Comment on above: Order Comment: Fly banks Type: BLOOD SPECIMENOrdering Facility: [facility] Address: [address] [place] [address] Performed By: #### 2 4323-8, 2777-1, 98302-3, 35091-8 ####[facility] [id number] [place] [id number] [facility] PT panel Coag (PPP)on 2022 INR Coag (PPP) [Relative time] 1.0 {INR} Normal 0.9-1.3 [facility] Comment on above: Order Comment: Fly banks Type: BLOOD SPECIMENOrdering Facility: [facility] Address: [address] [place] [address] Result Comment: Briana min K Antagonist (VKA) Therapeutic Range: INR 2 to 3 (Target INR of 2.5) Note: For patients treated with VKA drugs, such as warfarin, the [employer] College [employer] 2012 Guideline recommends a therapeutic INR range of 2 to 3 (target INR of 2.5). This recommendation includes high-risk patients with antiphospholipid syndrome with previous arterial or venous thromboembolism, current-generation mechanical or bioprosthetic aortic heart valve replacement. Note: Patients with mechanical aortic valve replacement and additional risk factors for thromboembolic events (atrial fibrillation, previous thromboembolism, LV dysfunction, hypercoagulable conditions) or an older generation mechanical AVR (i.e., ball in-Cage) or any mechanical MVR should have a INR therapeutic range of 2.5 to 3.5 (target INR of 3). Kevin BURGESS, et al. Chest 2012, 141:7S-47S Swathi RA, et al. [facility] 2017, 70: 252-289 Performed By: #### 3 4528-0 ####[facility] [id number] [place] [id number] [place] PT Coag (PPP) [Time] 10.0 s Normal 9.7-13.0 [facility] Comment on above: Order Comment: Fly banks Type: BLOOD SPECIMENOrdering Facility: [facility] Address: [address] [place] [id number] Performed By: #### 3 4528-0 ####[facility] [id number] [address] Phosphate SerPl-mCncon 04-08 Phosphate [Mass/Vol] 3.8 mg/dL Normal 2.7-4.8 [facility] Comment on above: Order Comment: Speci men Type: BLOOD SPECIMENOrdering Facility: [facility] Address: [address] [place] [address] Performed By: #### 2 4323-8, 2777-1, 12018-1, 50165-9 ####[facility] [id number] [address] [place] SARS-CoV-2 RNA Resp Ql GUNNER+p robeon 04-08-2022 SARS-CoV-2 (COVID-19) RNA GUNNER+probe Ql (Resp) COVID 19 RESULT: Not detected The method used is RT-PCR or an equivalent NAAT method. Reference Range(the expected result in uninfected individuals): Not detected Normal [facility] Comment on above: Performed By: #### 9 4500-6 ####[facility] [id number] [address] [place] THERAPY NTon 04-08-2022 THERAPY NT HNO ID: [id number] Author: OFELIA Barry/Carmela Service: Occupational Therapy Author Type: Occupational Therapist Type: Therapy (PT/OT/Speech/Resp) Filed: 04/08/2022 3:45 PM Note Text: Occupational Therapy Evaluation SERVICE DATE: 04/08/2022 SERVICE TIME: 1509 to 1534 ROOM: [place] [address] Recommended Discharge Disposition: Home OT Recommended Discharge Disposition Comments: Pt presents with visual deficits affecitng safety during functional transfers, self care, and IADL tasks. Pt would benefit from OT in the home for safe adaptive techniques to reduce risk of fall. Anticipated Discharge Needs: Physical Assist at Home, Supervision at Home Physical Assist at Home for: Cleaning, Laundry, Meals, Self Care, Shopping, Transportation, Safety Supervision at Home due to: Other: See Comment (wet shower transfer safety) OT 6 Clicks Score: 20 Precautions/Activity Restrictions: Diabetic, Fall Risk Precaution/Activity Restriction Comments: standard Current Hospital Course: MRI pending Reason for Hospital Admission: Headaches, nausea, blurred vision Relevant Past Medical History: colon cancer, diaphragmatic hernia, reflux, hypertension, osteoarthritis, kidney disease, lung nodule, breast cancer, myalgia, obesity, sleep apnea, diabetes., Response to Therapy Interventions: Good participation in activities, On-track to achieve discharge goals Continue skilled needs due to: Low vision impairment, Safety concerns, Functional impairment Occupational Therapy Problem List: Education Deficit, Safety Deficits, Impaired Self Care, Balance Impaired, Functional Mobility Impairment, Sensory Deficit, Impaired Visual Motor Skills Cognition/Communication Deficits Responsiveness: Alert, Awake Follows Commands: 3-step Commands Treatment Interventions: Education, Self Care / Home Management, Balance Training, Functional Mobility Training Home Environment Patient Lives With: Family Assistance Available: 24-Hour, Other: See Comment Entry To Home: Stairs, With Rail Number Of Stairs Into Home: 2 Number Of Stairs To Bed/Bath: 0 Tub/Shower Type: combo Laundry: main level - shared task with daughter Equipment Owned: Walker- Wheeled, Rollator, Shower Chair, Cane, Wheelchair- Manual Prior Functional Level: Within Functional Limits Prior Functional Level Comments: I for ADLs, she and daughter both complete IADLs based on preference of the day; occassional use of cane or RW in the home, w/c for long distances outside the home, or use of cane/RW for shorter distances, takes morphine 3x daily for degenerative disc disease Current and/or Former Occupation: [employer] Highest Level of Education: High School Occupational Factors Life Roles: Retired Identified Strengths: Good Support System Patient Report: Eveyrhing except the blurred vision has been going on for a couple of years, I've had migraines but this is different CURRENT FUNCTIONAL STATUS: Most recent performance Current Activities of Daily Living Assist Level Additional Information Feeding Independent Grooming Set Up, Additional Information seated EOB Bathing Upper Body Set Up, Additional Information seated EOB for sponge bathing Bathing Lower Body Contact Guard Assistance, Additional Information for balance cleansing buttocks based on visual deficit Dressing Upper Body Set Up, Additional Information seated EOB Dressing Lower Body Contact Guard Assistance, Additional Information for balance when pulling up pants based on visual deficit Toileting Additional Information, Stand By Assistance for safety while managing clothing, jefferson care Instrumental Activities of Daily Living Assist Level Additional Information Meal/Beverage Prep Stand By Assistance, Additional Information for safety based on visual deficits affecting balance Cleaning Stand By Assistance Laundry Stand By Assistance Medication Management with Strategies Modified Independent Functional Mobility Assist Level Additional Information Rolling Supine to Sit Sit to Supine Scooting Sit to Stand Contact Guard Assistance Stand to Sit Stand By Assistance Bed to Chair Supervision Stepping Wheeled Walker Toilet/Commode Shower Functional Mobility Supervision Wheeled Walker Blank barnett indicate activity not attempted Balance: Static Sitting, Dynamic Sitting, Static Standing, Dynamic Standing Static Sitting Balance: Good Patient able to maintain balance without handhold support, limited postural sway Dynamic Sitting Balance: Good Patient accepts moderate challenge, able to maintain balance while picking up object off floor Static Standing Balance: Fair Patient able to maintain balance with handhold support, may require occasional minimal assistance Dynamic Standing Balance: Fair Patient accepts minimal challenge, able to maintain balance while turning head/trunk Activity Tolerance: Sitting Activity, Standing Activity Sitting Act (more content not included)... [facility] THERAPY NT HNO ID: [id number] Author: Zoe Conley CCC-PARCEL WRAPPER Service: Speech/Swallow Author Type: Speech Language Pathologist Type: Therapy (PT/OT/Speech/Resp) Filed: 04/08/2022 12:30 PM Note Text: Speech Therapy Speech Evaluation, Clinical Swallow Evaluation SERVICE DATE: 04/08/2022 SERVICE TIME: 1115 to 1158 ROOM: [place] [address] IMPRESSION: Functional communication without limitations in: Speech, Language, Cognition Functional oropharyngeal phases of swallowing: without identified risk for aspiration Diet Recommendations: Regular Consistency, Thin Liquids IDDSI Level 0 Swallowing Precautions Recommendations: Anti-Reflux precautions, Feed / Eat at a slow rate, Sit upright 90 degrees for all PO, Maintain an upright position 20-30 minutes following all oral intake, Self-monitoring Nursing Recommendations: GERD Precautions, Reinforce an upright position during / after all PO, Reinforce use of swallowing strategies Recommended Discharge Disposition: No further skilled speech therapy services anticipated Current Hospital Course: MRI Pending Reason for Hospital Admission: Blurred vision Rehabilitation Precautions: Visual Deficits (double vision) Reason for Speech Therapy Consult: Rule out dysphagia / cognitive Relevant Past Medical History: Colon CA, Diaphragmatic hernia, reflux, HTN, Osteoarthritis, Kidney disease, lung nodule, Breat CA, myalgia, obesity, sleep apnea Response to Therapy Interventions: Good Participation in activities Continue skilled PARCEL WRAPPER services due to : (No skilled needs at this time.) Patient Report: "I am swallowing fine and my speech has been fine." Current Status Oral Hygiene: Clear, moist oral cavity Dentition: Retains Natural Dentition Current Feeding Method: Oral Current Diet Textures: Regular Consistency, Thin Liquids IDDSI Level 0 Current Level Of Communication: Verbal Current Management Of Secretions: Able to expectorate adequately, Able to self-manage Oral Motor Exam: Within Functional Limits Except Facial Symmetry Impaired: Left (Slight left at rest (pt indicated she thought that was her normal)) Cognition Cognitive Status: Within Functional Limits For Current Session Cognitive Clinical Tests and Screens: Mini Cog Clock Draw Test: 2-Normal Word Recall: 3-recalled words Mini Cog Score: 5 Speech/Voice/Language Speech Production: Within Functional Limits Expressive and Receptive Language: Within Functional Limits Swallow Position Of Patient During Assessment: Upright In Chair Consistencies Presented: Thin Liquids IDDSI Level 0, Pureed IDDSI Level 4, Solid Response to Consistencies Presented: -Pt. cooperative and pleasant during evaluation. -Pt. tolerated thin liquids via cup sips without overt clinical signs/symptoms of aspiration. -Pt. tolerated puree and solid textures without overt clinical signs/symptoms of aspiration/difficulty. -Pt. able to complete speech/language eval/ Mini Cog. without difficulty. Compensatory Strategies Utilized During Assessment: Anti-Reflux precautions, Feed / Eat at a slow rate, Maintain an upright position 20-30 minutes following all oral intake, Sit upright 90 degrees for all PO, Self-monitoring, Small Bite/Sip, Voice checks Clinical Swallow Jailyn Swallow Protocol: Pass Oral Pharyngeal Swallow Assessment: Within Functional Limits Preparatory / Oral Phase: Within Functional Limits Patient /Caregiver Goals: Go Home Goals for Plan of Care: Goals: (No skilled needs at this time.) Patient will be discontinued from speech therapy when no further skilled needs are identified in this setting. PLAN: ST Frequency: Discontinue therapy services Reasons Inpatient Therapy Services Discontinued: Patient appears safe and appropriate re: communication, cognition, and swallow function with the ability to return to a baseline level of function, No skilled needs Plan of Care Developed with: Patient, Caregiver (RN) Results and Recommendations Discussed With: Patient, Nurse TREATMENT INTERVENTIONS: Therapy Diagnosis: No Skilled Need Interventions Provided: Clinical Swallow Evaluation (36781), Speech Language Eval (39332) $ Speech Language Eval (39845) Billed Units: 1 unit $ Clinical Swallow Evaluation (75160) Billed Units: 1 unit Training and education provided in: Cognitive Linguistic Strategies, Swallowing Strategies The following therapeutic skills were used:: Education on role of discipline / importance of activity, Teach-back for confirmation of education provided Skilled Treatment Time (minutes): 43 Home Environment Patient Lives With: Family (Daughter) Assistance Available: Unable to determine at this time Prior Swallowing Function/Diet Textures: Regular Consistency, Thin Liquids IDDSI Level 0 Please see discipline specific clinical documentation flowsheet for complete details for this therapy evaluation/treatment. SIGNATURE: Zoe conley CCC-PARCEL WRAPPER PATIENT NAME: Saeid Childress (more content not included)... [facility] THERAPY NT HNO ID: [id number] Author: Isabelle Johnson, PT Service: Physical Therapy Author Type: Physical Therapist Type: Therapy (PT/OT/Speech/Resp) Filed: 04/08/2022 10:21 AM Note Text: Physical Therapy Evaluation SERVICE DATE: 04/08/2022 SERVICE TIME: 902 to 930 ROOM: [place] [address] Recommended Discharge Disposition: Outpatient Physical Therapy Recommended Discharge Disposition Comments: Pt currently functioning below baseline with HTN, blurred vision, and headaches. Pt awaiting MRI, demonstrating decreased activity tolerance, and decreased strength. Pt would benefit from skilled services post acute stay to address deficits. Pt reports preference to Outpatient Services with intentions to find transportation PRN. Anticipated Discharge Needs: Physical Assist at Home, Supervision at Home Physical Assist at Home for: Transportation, Medication Management, Meals, Laundry, Cleaning Supervision at Home due to: Decreased safety awareness (due to blurred vision) Recommended Discharge Equipment: No equipment needs anticipated PT 6 Clicks Score: 23 Precautions/Activity Restrictions: Diabetic, Fall Risk Precaution/Activity Restriction Comments: standard Current Hospital Course: MRI pending Reason for Hospital Admission: Blurred vision Relevant Past Medical History: colon cancer, diaphragmatic hernia, reflux, hypertension, osteoarthritis, kidney disease, lung nodule, breast cancer, myalgia, obesity, sleep apnea, diabetes. Response to Therapy Interventions: Good participation in activities, Improved tolerance for activity, Notable progression with functional activities/skills, On-track to achieve discharge goals, Requires additional time to complete activities, Labile vital signs Continue skilled needs due to: Safety concerns, Functional mobility/skill impairments, Continued monitoring of vital signs during mobility required Physical Therapy Problem List: Education Deficit, Pain, Safety Deficits, Impaired Self Care, Decreased Activity Tolerance, Decreased Range Of Motion, Decreased Strength, Functional Mobility Impairment, Balance Impaired, Sensory Deficit Treatment Interventions: Education, Self Care / Home Management, Energy Conservation Training, Joint Mobility, Strengthening, Functional Mobility Training, Balance Training, Edema Management, Pain Management, Orthotic Management and Training Plan for next visit: Bed mobility, Chair transfer training, Fall prevention, Family instruction, Gait training, Exercise instruction/handout, Pre-gait activities, Sit to Stand Transfers, Sitting balance, Stairs training, Standing Balance, Standing Tolerance, Walker Training Home Environment Patient Lives With: Family (Daughter) Assistance Available: 24-Hour Entry To Home: Stairs, With Rail Number Of Stairs Into Home: 2 Number Of Stairs To Bed/Bath: 0 Tub/Shower Type: combo Laundry: main level - shared task with daughter Equipment Owned: Walker- Wheeled, Rollator Prior Functional Level: Within Functional Limits Prior Functional Level Comments: Pt reports independence with ADLs and shared IADLs with daughter. Reports no use of AD within household due to small space, however uses FWW or rollator for community. Denies any falls in past 6 months, + driving, +self medical management. Reports often takes self to appointments or daughter can provide transportation if required. Patient Report: Pt reports onset of blurred vision this past + headaches. Agreeable to PT, cleared with RN. Eye patch noted on L eye upon approach and during session. CURRENT FUNCTIONAL STATUS: Most recent performance Current Functional Mobility Assist Level Additional Information Rolling Supine to Sit Additional Information OOB ambulating in bathroom independently upon approach with personal FWW Sit to Supine Additional Information OOB in bedside chair at session end Scooting Stand By Assistance Sit to Stand Stand By Assistance, Additional Information X 2 trials from lowest bed height Stand to Sit Stand By Assistance Bed to Chair Stand By Assistance Bed To Chair Transfer Type: Stepping Bed To Chair Transfer Equipment: Wheeled Walker Toilet/Commode Gait Stand By Assistance Gait Device: Wheeled Walker Gait Distance (feet): 1 X 80 Stairs Curb Step Car Transfer Blank barnett indicate activity not attempted General Deviations/Observations: Pascale decreased, Difficulty changing direction/turning, Lateral sway increased, Step length decreased Balance: Static Sitting, Dynamic Sitting, Static Standing, Dynamic Standing Static Sitting Balance: Good Patient able to maintain balance without handhold support, limited postural sway Dynamic Sitting Balance: Fair Patient accepts minimal challenge, able to maintain balance while turning head/trunk Static Standing Balance: Good Patient able to maintain balance without handhold support, limited postural sway Dynamic Standing Balance: Fair Patien (more content not included)... [facility] HEALTHon 04-07-2022 ALLIED HEALTH HNO ID: [id number] Author: Luke Manuel RT(R) Service: Radiology Author Type: Technologist Type: Allied Health Filed: 04/07/2022 8:49 PM Note Text: Radiology Service Progress Note DATE OF SERVICE: April 07, 2022 TIME: 8:47 PM PATIENT IDENTITY VERIFICATION COMPLETED USING TWO (2) STANDARD IDENTIFIERS: Name and Date of confirmed by patient verbally and Name and Date of confirmed by identification band. FALL SCREENING: Has the patient had 2 falls in the last year or 1 fall with injury or currently using an Ambulatory Assistive Device (Walker, Cane, Wheelchair, Crutches, etc.)? Emergency Room Patient: Screened in ED PATIENT GENDER DATA: Female. status: : No status: NO. PATIENT RELEVANT IMPLANT DATA REVIEWED: Not Applicable ALLERGIES: Reviewed and unchanged CONTRAST ALLERGY: NO. EXAM: CT -CONTRAST INDUCED NEPHROPATHY RISK FACTORS: Patient age > 60 years CREATININE: Creatinine Date Value Ref Range Status 04/07/2022 0.93 0.58 - 0.96 mg/dL Final 04/03/2022 0.98 (H) 0.58 - 0.96 mg/dL Final 02/21/2022 0.93 0.58 - 0.96 mg/dL Final Estimated Glomerular Filtration Rate Date Value Ref Range Status 04/07/2022 65 >=60 mL/min/1.73m? Final Comment: Estimated Glomerular Filtration Rate (eGFR) is calculated using the 2020 CKD-EPI creatinine equation. This equation utilizes serum creatinine, sex, and age as parameters. The creatinine assay has traceable calibration to isotope dilution-mass spectrometry. Refer to KDIGO guidelines for clinical interpretation. In patients with unstable renal function, e.g. those with acute kidney injury, the eGFR may not accurately reflect actual GFR. eGFR- Date Value Ref Range Status 03/28/2021 >60 Final P.O.C.T. RESULTS: POC done: Yes, See Lab Tab April 07, 2022 TREATMENT: N/A PERIPHERAL IV DATA: Inpatient - refer to LDA documentation RADIOLOGY DEPARTMENT: CT; Exam(s) Completed: Abdomen/Pelvis SIGNATURE: Luke Manuel RT(R) PATIENT NAME: Saeid Urbina DATE: April 07, 2022 TIME: 8:47 PM Normal [facility] CBC W Auto Differential pane l (Bld)on 04-07-2022 Basophils (Bld) [#/Vol] 0.03 10*3/uL Normal <0.11 [facility] Comment on above: Order Comment: Speci men Type: BLOOD SPECIMEN Ordering Facility: [facility] Address: [address] [place] [address] Performed By: #### 1 989-3 #### [facility] CLIA [id number] [address] [place] [address] [place] Basophils/100 WBC (Bld) 0.5 % Normal [facility] Comment on above: Order Comment: Speci men Type: BLOOD SPECIMEN Ordering Facility: [facility] Address: [address] [place] [address] Performed By: #### 1 989-3 #### [facility] CLIA [id number] [address] [place] [address] [place] Differential cell count method Nom (Bld) Auto Normal [facility] Comment on above: Order Comment: Speci men Type: BLOOD SPECIMEN Ordering Facility: [facility] Address: [address] [place] [address] Performed By: #### 1 989-3 #### [facility] CLIA [id number] [address] [place] [address] [place] Eosinophils (Bld) [#/Vol] 10*3/uL Normal <0.46 [facility] Comment on above: Order Comment: Speci men Type: BLOOD SPECIMEN Ordering Facility: [facility] Address: [address] [place] [address] Performed By: #### 1 989-3 #### [facility] CLIA [id number] [address] [place] [address] [place] Eosinophils/100 WBC (Bld) 0.4 % Normal [facility] Comment on above: Order Comment: Speci men Type: BLOOD SPECIMEN Ordering Facility: [facility] Address: [address] [place] [address] Performed By: #### 1 989-3 #### [facility] CLIA [id number] [address] [place] [address] [place] Erythrocyte distribution width (RBC) [Ratio] 12.7 % Normal 11.5-15.0 [facility] Comment on above: Order Comment: Speci men Type: BLOOD SPECIMEN Ordering Facility: [facility] Address: [address] [place] [address] Performed By: #### 1 989-3 #### [facility] CLIA [id number] [address] [place] [address] [place] Hematocrit (Bld) [Volume fraction] 38.9 % Normal 36.0-46.0 [facility] Comment on above: Order Comment: Speci men Type: BLOOD SPECIMEN Ordering Facility: [facility] Address: [address] [place], [place] [address] Performed By: #### 1 989-3 #### [facility] CLIA [id number] [address] [place] [address] [place] Hemoglobin (Bld) [Mass/Vol] 13.1 g/dL Normal 11.5-15.5 [facility] Comment on above: Order Comment: Speci men Type: BLOOD SPECIMEN Ordering Facility: [facility] Address: [address] [place], [place] [address] Performed By: #### 1 989-3 #### [facility] CLIA [id number] [address] [place] [address] [place] Immature granulocytes (Bld) [#/Vol] 0.03 10*3/uL Normal <0.10 [facility] Comment on above: Order Comment: Speci men Type: BLOOD SPECIMEN Ordering Facility: [facility] Address: [address] Performed By: #### 1 989-3 #### [facility] CLIA [id number] [address] [place] Immature granulocytes/100 WBC (Bld) 0.5 % Normal [facility] Comment on above: Order Comment: Speci men Type: BLOOD SPECIMEN Ordering Facility: [facility] Address: [address] Performed By: #### 1 989-3 #### [facility] CLIA [id number] [address] [place] [address] [place] Lymphocytes (Bld) [#/Vol] 1.25 10*3/uL Normal 1.00-4.00 [facility] Comment on above: Order Comment: Speci men Type: BLOOD SPECIMEN Ordering Facility: [facility] Address: [address] Performed By: #### 1 989-3 #### [facility] CLIA [id number] [address] [place] [address] STATES [facility] Lymphocytes/100 WBC (Bld) 22.0 % Normal [facility] Comment on above: Order Comment: Speci men Type: BLOOD SPECIMEN Ordering Facility: [facility] Address: [address] Performed By: #### 1 989-3 #### [facility] CLIA [id number] [address] [place] [address] [place] MCH (RBC) [Entitic mass] 30.5 pg Normal 26.0-34.0 [facility] Comment on above: Order Comment: Speci men Type: BLOOD SPECIMEN Ordering Facility: [facility] Address: [address] Performed By: #### 1 989-3 #### [facility] CLIA [id number] [address] [place] [address] [place] MCHC (RBC) [Mass/Vol] 33.7 g/dL Normal 30.5-36.0 [facility] Comment on above: Order Comment: Speci men Type: BLOOD SPECIMEN Ordering Facility: [facility] Address: [address] [place] [address] Performed By: #### 1 989-3 #### [facility] CLIA [id number] [address] [place] [address] [place] MCV (RBC) [Entitic vol] 90.7 fL Normal 80.0-100.0 [facility] Comment on above: Order Comment: Speci men Type: BLOOD SPECIMEN Ordering Facility: [facility] Address: [address] [place] [address] Performed By: #### 1 989-3 #### [facility] CLIA [id number] [address] [place] [address] [place] Monocytes (Bld) [#/Vol] 0.61 10*3/uL Normal <0.87 [facility] Comment on above: Order Comment: Speci men Type: BLOOD SPECIMEN Ordering Facility: [facility] Address: [address] [place], [place] [address] Performed By: #### 1 989-3 #### [facility] CLIA [id number] [address] [place] [address] [place] Monocytes/100 WBC (Bld) 10.7 % Normal [facility] Comment on above: Order Comment: Speci men Type: BLOOD SPECIMEN Ordering Facility: [facility] Address: [address] [place], [place] [address] Performed By: #### 1 989-3 #### [facility] CLIA [id number] [address] [place] [address] [place] Neutrophils (Bld) [#/Vol] 3.75 10*3/uL Normal 1.45-7.50 [facility] Comment on above: Order Comment: Speci men Type: BLOOD SPECIMEN Ordering Facility: [facility] Address: [address] Performed By: #### 1 989-3 #### [facility] CLIA [id number] [address] [place] Neutrophils/100 WBC (Bld) 65.9 % Normal [facility] Comment on above: Order Comment: Speci men Type: BLOOD SPECIMEN Ordering Facility: [facility] Address: [address] Performed By: #### 1 989-3 #### [facility] CLIA [id number] [address] [place] [address] [place] Nucleated RBC (Bld) [#/Vol] 10*3/uL Normal <0.01 [facility] Comment on above: Order Comment: Speci men Type: BLOOD SPECIMEN Ordering Facility: [facility] Address: [address] Performed By: #### 1 989-3 #### [facility] CLIA [id number] [address] [place] [address] [place] Nucleated RBC/100 WBC (Bld) [Ratio] 0.0 /100 WBC Normal [facility] Comment on above: Order Comment: Speci men Type: BLOOD SPECIMEN Ordering Facility: [facility] Address: [address] Performed By: #### 1 989-3 #### [facility] CLIA [id number] [address] [place] [address] [place] Platelet mean volume (Bld) [Entitic vol] 10.7 fL Normal 9.0-12.7 [facility] Comment on above: Order Comment: Speci men Type: BLOOD SPECIMEN Ordering Facility: [facility] Address: [address] Performed By: #### 1 989-3 #### [facility] CLIA [id number] [address] [place] [address] [place] Platelets (Bld) [#/Vol] 144 10*3/uL Low 150-400 [facility] Comment on above: Order Comment: Speci men Type: BLOOD SPECIMEN Ordering Facility: [facility] Address: [address] [place], [place] [address] Performed By: #### 1 989-3 #### [facility] CLIA [id number] [address] [place] [address] [place] RBC (Bld) [#/Vol] 4.29 10*6/uL Normal 3.90-5.20 [facility] Comment on above: Order Comment: Speci men Type: BLOOD SPECIMEN Ordering Facility: [facility] Address: [address] [place], [place] [address] Performed By: #### 1 989-3 #### [facility] CLIA [id number] [address] [place] [address] [place] WBC (Bld) [#/Vol] 5.69 10*3/uL Normal 3.70-11.00 [facility] Comment on above: Order Comment: Speci men Type: BLOOD SPECIMEN Ordering Facility: [facility] Address: [address] [place], [place] [address] Performed By: #### 1 989-3 #### [facility] CLIA [id number] [address] [place] [address] [place] CK SerPl-cCncon 04-07-2022 CK [Catalytic activity/Vol] 53 U/L Normal 42-196 [facility] Comment on above: Order Comment: Speci men Type: BLOOD SPECIMEN Ordering Facility: [facility] Address: [address] [place], [place] [address] Performed By: #### 1 989-3 #### [facility] CLIA [id number] [address] [place] [address] [place] CTA HEAD WO/W IVCONon 03-03- 2023 CTA HEAD WO/W IVCON * * *Final Report* * * DATE OF EXAM: Apr 07 2022 9:09PM [facility] 0023 - CTA HEAD WO/W IVCON / PROCEDURE REASON: Diplopia * * * * Physician Interpretation * * * * COMPARISON: None. HISTORY: Transient ischemic attack. TECHNIQUE: Head CT without contrast. Intra/extracranial CTA with contrast. 3-D reconstructions. MQ: CTABPlus_3 Contrast: IV 80 ml of Omnipaque 350 CT Radiation dose: Integrated Dose-length product (DLP) for this visit = 1522.25 mGy*cm CT Dose Reduction Employed: Automated exposure control(AEC) and iterative recon RESULTS: CT BRAIN: Age expected sulci, gyri, ventricles, brain and CSF spaces. No acute infarct/hemorrhage, mass effect or collections. Normal skull base and soft tissues. CT ARTERIOGRAM: Age-expected soft tissues, upper lungs, mediastinum and bones. No collections or pathological adenopathy or abnormal enhancement. CIRCULATION:. Appearance of bilateral vertebral arteries in V3 division without dissection or pseudoaneurysm formation compatible with fibromuscular dysplasia changes. No complications related to FMD. Minimal if any changes of FMD are identified within the extracranial bilateral ICA. Origin of bilateral common carotid, subclavian, vertebral and right innominate arteries are without significant disease. Origins of internal carotid arteries reveal 5% bilateral narrowing (by NASCET). Irregularity of vessels with vascular calcification suggests mild atherosclerosis. Remaining extracranial and intracranial carotids, vertebrobasilar and cerebral arteries are normal in course, caliber and branching without hemodynamically significant disease. IMPRESSION: 1. Age expected head CT without any acute intracranial disease. 2. V3 vertebral artery mild changes of uncomplicated fibromuscular dysplasia. 3. Otherwise patent extracranial and intracranial CTA circulation. Arterial blood flow was measured to detect acute large vessel occlusion by computer aided detection software: Not performed. Pairer Inspector: PSCB Transcribe Date/Time: Apr 07 2022 9:16P Dictated by : NIDIA PATEL MD This examination was interpreted and the report reviewed and electronically signed by: NIDIA PATEL MD on Apr 07 2022 9:23PM EST [id number] [facility] CTA NECK W IVCONon CTA NECK W IVCON * * *Final Report* * * DATE OF EXAM: Apr 07 2022 9:09PM [facility] 0024 - CTA NECK W IVCON / PROCEDURE REASON: Transient ischemic attack (TIA) * * * * Physician Interpretation * * * * COMPARISON: None. HISTORY: Transient ischemic attack. TECHNIQUE: Head CT without contrast. Intra/extracranial CTA with contrast. 3-D reconstructions. MQ: CTABPlus_3 Contrast: IV 80 ml of Omnipaque 350 CT Radiation dose: Integrated Dose-length product (DLP) for this visit = 1522.25 mGy*cm CT Dose Reduction Employed: Automated exposure control(AEC) and iterative recon RESULTS: CT BRAIN: Age expected sulci, gyri, ventricles, brain and CSF spaces. No acute infarct/hemorrhage, mass effect or collections. Normal skull base and soft tissues. CT ARTERIOGRAM: Age-expected soft tissues, upper lungs, mediastinum and bones. No collections or pathological adenopathy or abnormal enhancement. CIRCULATION:. Appearance of bilateral vertebral arteries in V3 division without dissection or pseudoaneurysm formation compatible with fibromuscular dysplasia changes. No complications related to FMD. Minimal if any changes of FMD are identified within the extracranial bilateral ICA. Origin of bilateral common carotid, subclavian, vertebral and right innominate arteries are without significant disease. Origins of internal carotid arteries reveal 5% bilateral narrowing (by NASCET). Irregularity of vessels with vascular calcification suggests mild atherosclerosis. Remaining extracranial and intracranial carotids, vertebrobasilar and cerebral arteries are normal in course, caliber and branching without hemodynamically significant disease. IMPRESSION: 1. Age expected head CT without any acute intracranial disease. 2. V3 vertebral artery mild changes of uncomplicated fibromuscular dysplasia. 3. Otherwise patent extracranial and intracranial CTA circulation. Arterial blood flow was measured to detect acute large vessel occlusion by computer aided detection software: Not performed. Pairer Inspector: PSCB Transcribe Date/Time: Apr 07 2022 9:16P Dictated by : NIDIA PATEL MD This examination was interpreted and the report reviewed and electronically signed by: NIDIA PATEL MD on Apr 07 2022 9:23PM EST [id number] Normal [facility] Comprehensive metabolic 2000 panelon 04-07-2022 Albumin [Mass/Vol] 3.9 g/dL Normal 3.9-4.9 [facility] Comment on above: Order Comment: Speci men Type: BLOOD SPECIMEN Ordering Facility: [facility] Address: [address] Performed By: #### 1 989-3 #### [facility] CLIA [id number] [address] [place] [address] [place] ALP [Catalytic activity/Vol] 94 U/L Normal 34-123 [facility] Comment on above: Order Comment: Speci men Type: BLOOD SPECIMEN Ordering Facility: [facility] Address: [address] Performed By: #### 1 989-3 #### [facility] CLIA [id number] [address] [place] [address] [place] ALT [Catalytic activity/Vol] 25 U/L Normal 7-38 [facility] Comment on above: Order Comment: Speci men Type: BLOOD SPECIMEN Ordering Facility: [facility] Address: [address] Performed By: #### 1 989-3 #### [facility] CLIA [id number] [address] [place] [address] [place] Anion gap [Moles/Vol] 10 mmol/L Normal 9-18 [facility] Comment on above: Order Comment: Speci men Type: BLOOD SPECIMEN Ordering Facility: [facility] Address: [address] Performed By: #### 1 989-3 #### [facility] CLIA [id number] [address] [place] [address] [place] AST [Catalytic activity/Vol] 25 U/L Normal 13-35 [facility] Comment on above: Order Comment: Speci men Type: BLOOD SPECIMEN Ordering Facility: [facility] Address: [address] Performed By: #### 1 989-3 #### [facility] CLIA [id number] [address] [place] [address] [place] Bilirubin [Mass/Vol] 0.4 mg/dL Normal 0.2-1.3 [facility] Comment on above: Order Comment: Speci men Type: BLOOD SPECIMEN Ordering Facility: [facility] Address: [place] [address] Performed By: #### 1 989-3 #### [facility] CLIA [id number] [address] [place] [address] [place] Calcium [Mass/Vol] 10.3 mg/dL High 8.5-10.2 [facility] Comment on above: Order Comment: Speci men Type: BLOOD SPECIMEN Ordering Facility: [facility] Address: [address] [place], [place] [address] Performed By: #### 1 989-3 #### [facility] CLIA [id number] [address] [place] [address] [place] Chloride [Moles/Vol] 104 mmol/L Normal 97-105 [facility] Comment on above: Order Comment: Speci men Type: BLOOD SPECIMEN Ordering Facility: [facility] Address: [address] [place], [place] [address] Performed By: #### 1 989-3 #### [facility] CLIA [id number] [address] [place] [address] [place] CO2 [Moles/Vol] 26 mmol/L Normal 22-30 [facility] Comment on above: Order Comment: Speci men Type: BLOOD SPECIMEN Ordering Facility: [facility] Address: [address] Performed By: #### 1 989-3 #### [facility] CLIA [id number] [address] [place] [address] [place] Creatinine [Mass/Vol] 0.93 mg/dL Normal 0.58-0.96 [facility] Comment on above: Order Comment: Speci men Type: BLOOD SPECIMEN Ordering Facility: [facility] Address: [address] Performed By: #### 1 989-3 #### [facility] CLIA [id number] [address] OF [facility] ESTIMATED GLOMERULAR FILTRATION RATE 65 mL/min/1.73m??? Normal >=60 [facility] Comment on above: Order Comment: Fly banks Type: BLOOD SPECIMEN Ordering Facility: [facility] Address: [address] [place] [address] Result Comment: Susan mated Glomerular Filtration Rate (eGFR) is calculated using the 2020 CKD-EPI creatinine equation. This equation utilizes serum creatinine, sex, and age as parameters. The creatinine assay has traceable calibration to isotope dilution-mass spectrometry. Refer to KDIGO guidelines for clinical interpretation. In patients with unstable renal function, e.g. those with acute kidney injury, the eGFR may not accurately reflect actual GFR. Performed By: #### 1 989-3 #### [facility] CLIA [id number] [address] [place] [address] OF [facility] Glucose [Mass/Vol] 99 mg/dL Normal 74-99 [facility] Comment on above: Order Comment: Fly banks Type: BLOOD SPECIMEN Ordering Facility: [facility] Address: [address] [place] [address] Result Comment: The [place] [employer] (ADA) provides guidance for cutoff values for fasting glucose and random glucose. The ADA defines fasting as no caloric intake for at least 8 hours. Fasting plasma glucose results between 100 to 125 mg/dL indicate increased risk for diabetes (prediabetes). Fasting plasma glucose results greater than or equal to 126 mg/dL meet the criteria for diagnosis of diabetes. In the absence of unequivocal hyperglycemia, results should be confirmed by repeat testing. In a patient with classic symptoms of hyperglycemia or hyperglycemic crisis, random plasma glucose results greater than or equal to 200 mg/dL meet the criteria for diagnosis of diabetes. Reference: Standards of Medical Care in Diabetes 2016, [employer] Diabetes Association. Diabetes Care. 2016.39(Suppl 1). Performed By: #### 1 989-3 #### [facility] CLIA [id number] [facility] [place] [address] [place] Potassium [Moles/Vol] 3.9 mmol/L Normal 3.7-5.1 [facility] Comment on above: Order Comment: Speci men Type: BLOOD SPECIMEN Ordering Facility: [facility] Address: [address] [place] [address] Performed By: #### 1 989-3 #### [facility] CLIA [id number] [address] [place] [address] [place] Protein [Mass/Vol] 6.4 g/dL Normal 6.3-8.0 [facility] Comment on above: Order Comment: Speci men Type: BLOOD SPECIMEN Ordering Facility: [facility] Address: [address] [place], [place] [address] Performed By: #### 1 989-3 #### [facility] CLIA [id number] [address] [place] [address] [place] Sodium [Moles/Vol] 140 mmol/L Normal 136-144 [facility] Comment on above: Order Comment: Speci men Type: BLOOD SPECIMEN Ordering Facility: [facility] Address: [address] [place], [place] [address] Performed By: #### 1 989-3 #### [facility] CLIA [id number] [address] [place] Urea nitrogen [Mass/Vol] 19 mg/dL Normal 7-21 [facility] Comment on above: Order Comment: Speci men Type: BLOOD SPECIMEN Ordering Facility: [facility] Address: [address] Performed By: #### 1 989-3 #### [facility] CLIA [id number] [address] [place] [address] [place] ECG COMPLETEon 04-07-2022 ECG COMPLETE Ventricular Rate : 7 7 BPM Atrial Rate : 77 BPM P-R Interval : 194 ms QRS Duration : 84 ms Q-T Interval : 390 ms QTC Calculation(Bazett) : 441 ms Calculated P Henderson : 40 degrees Calculated R Henderson : -6 degrees Calculated T Henderson : 20 degrees NORMAL SINUS RHYTHM POSSIBLE LEFT ATRIAL ENLARGEMENT POSSIBLE ANTEROLATERAL INFARCT , AGE UNDETERMINED ABNORMAL ECG no stemi Confirmed by Mitzy CARRILLO ERIKA ([id number]), market editor JONATHAN ZUNIGA (1944) on 04/08/2022 8:04:10 AM NAME : SAEID URBINA PID : [id number] : 1950 Gender : Female Race : ORD : [id number] Procedure Date : Apr 07 2022 20:06:46 Edit Date : Apr 08 2022 08:04:10 Diagnosis: NORMAL SINUS RHYTHM POSSIBLE LEFT ATRIAL ENLARGEMENT POSSIBLE ANTEROLATERAL INFARCT , AGE UNDETERMINED ABNORMAL ECG no stemi Confirmed by Mitzy CARRILLO ERIKA ([id number]), market editor JONATHAN ZUNIGA (1944) on 04/08/2022 8:04:10 AM Test Reason : Chest Pain Location : 1 : ER ED Overread By : Mitzy CARRILLO ERIKA Edited By : JONATHAN ZUNIGA Referred By : , Acquired by : ULISSES [facility] ED PROV NOTEon 04-07-2022 ED PROV NOTE HNO ID: [id number] Author: Teena Carrillo MD Service: ? Author Type: Physician Type: ED Provider Notes Filed: 04/07/2022 9:38 PM Note Text: ED Provider Note Patient Name: Saeid Urbina : 1950 SERVICE DATE: 04/07/22 History Patient presents with: Headache: Has been getting headaches for the past 2-3 months that usually causes dizziness and feels like she's spinning and gives her some nausea Eye Complaint: Most recent FOSTER started yesterday around 1500 and this time got some double vision with it that has been going on since Previous history: H/o hypertension, hypercholesterolemia, CHF, type 2 diabetes, obstructive sleep apnea on CPAP, COPD, reflux, chronic kidney disease stage III, rheumatoid arthritis and breast cancer (T1b (1 cm; grade 3; no AL invasion) N0 (0 of 7 LNs) MX ER/MD negative 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 She also had colorectal cancer in 2019. Patient had to be on chemo for it. Patient healed from that, she had a port put in. 15 months since patient had chemo. Patient with h/o Breast Ca 11', Colon Ca 20'- last chemo , DM, and CKD who presents with intermittent headaches behind her left eye and left forehead for two months. Yesterday, she began having double vision. She was at [facility] two weeks ago where she was given Tylenol and Benadryl. She has been taking this when she has a headache. Yesterday, ~ 1430 she developed a headache and double vision. The double vision is side by side when she looks out of both eyes and began at 1430 yesterday. When she closes one eye or another the double vision is gone. She awoke with the headache and double vision as well. It is associated with dizziness and nausea. Patient went to Dr. Connors today who advised her to come to ED for MRI brain. She denies speech difficulty, ataxia, numbness/weakness of extremities, chest pain, sob , fever/chills, or n/v/d. PAST MEDICAL HISTORY Diagnosis Date - Benign neoplasm of colon Benign polyps. - Colon cancer (HCC) 2019 - Diaphragmatic hernia without mention of obstruction or gangrene - Esophageal reflux - Essential hypertension, benign - Generalized osteoarthrosis, involving hand knees, hips - Kidney disease CKDIII - Lung nodule - Malignant neoplasm of upper-outer quadrant of female breast (HCC) 2010 Right. Lumpectomy, completed radiation 06/27/10. No chemotherapy. - Myalgia and myositis, unspecified - Obesity, unspecified Obesity - Obstructive sleep apnea syndrome 05/24/2015 No longer needs CPAP - Pain in joint of right shoulder 09/03/2014 - Plantar fascial fibromatosis - Seborrheic dermatitis, unspecified - Shortness of breath - Type II or unspecified type diabetes mellitus without mention of complication, not stated as uncontrolled - Unspecified hemorrhoids without mention of complication Hemorrhoids - Urinary incontinence overactive bladder PAST SURGICAL HISTORY Procedure Laterality Date - ADENOIDECTOMY PRIMARY Adenoidectomy - BX BREAST PERC NEED W/GUID 02/11/2010 U/S Needle core UOQ right breast bx - BX/EXC LYMPH NODE OPEN DEEP AXILLARY NODE 03/16/2010 RIGHT - [facility] Dr. Dung Mayo - CATH IMPL VASC ACCESS PORTAL 03/03/2020 - DELIVERY ONLY , low cervical x4 - CHOLECYSTECTOMY 01/11/1981 Cholecystectomy - COLONOSCOPY 06/21/2021 , repeat in 3 years - COLONOSCOPY FLX DX W/COLLJ SPEC WHEN PFRMD 08/30/2001 Colonoscopy - COLONOSCOPY FLX DX W/COLLJ SPEC WHEN PFRMD 07/17/2012 Colonoscopy - COLONOSCOPY FLX DX W/COLLJ SPEC WHEN PFRMD 12/02/2015 Colonoscopy (Needs MAC next time) - COLONOSCOPY GEN ANES 01/16/2020 - COLONOSCOPY W/BIOPSY SINGLE/MULTIPLE 06/01/2006 - EGD 01/16/2020 - EGD FLEX REMOVAL LESION(S) BY HOT BIOPSY FORCEPS 08/30/2001 - EGD TRANSORAL BIOPSY SINGLE/MULTIPLE 06/01/2006 - EGD TRANSORAL BIOPSY SINGLE/MULTIPLE 12/23/2009 - [facility] 06/21/2021 - ESOPHAGOGASTRODUODENOSCOPY TRANSORAL DIAGNOSTIC 12/02/2015 EGD - IMAGING GUIDED RADIOFREQUENCY LIVER ABLATION 04/2020 ablation - IR RADIO FREQUENCY ABLATION 11/2017 - LAPAROSCOPIC HEMICOLECTOMY 01/26/2020 - LIG/TRNSXJ FLP TUBE ABDL/VAG APPR UNI/BI Tubal ligation - MASTECTOMY, PARTIAL 03/16/2010 RIGHT - [facility] Dr. Dung Mayo - PREOP PLACEMENT NEEDLE LOC 03/16/2010 U/S wire loc UOQ right breast - PULMONARY FUNCTION TEST 05/22/2005 - SIGMOIDOSCOPY FLX DX W/COLLJ SPEC BR/WA IF PFRMD 04/06/1999 Sigmoidoscopy, flexible - TONSILLECTOMY PRIMARY/SECONDARY Tonsillectomy FAMILY HISTORY Problem Relation Age of Onset - Diabetes Mother - Colon Cancer Mother PASSED FROM THIS AT THE AGE OF 62 - Heart Father HAD AN [place] IN MID TO LATE 50s, FROM THIS. - other (Other) Sister MVA - No Known Problems Sister - Hype (more content not included)... Normal [facility] HIGH SENSITIVITY TROPONIN T (INITIAL)on 04-07-2022 HIGH SENSITIVITY MICHAEL 8 ng/L Normal <12 [facility] Comment on above: Order Comment: Speci men Type: BLOOD SPECIMEN Ordering Facility: [facility] Address: [facility] [place] [address] Result Comment: When assessing risk for acute coronary syndromes: In patients undergoing blood draw greater than or equal to 2 hours from symptom onset, with history of very low to moderate risk and non-ischemic ECG, an initial hs-Troponin T less than 12 ng/L AND a 1 hour delta hs-Troponin T less than 3 ng/L should be considered very low risk for 30 day MACE. Performed By: #### 1 989-3 #### [facility] CLIA [id number] [facility] [place] [address] [place] HIGH SENSITIVITY TROPONIN T (SECOND)on 04-07-2022 HIGH SENSITIVITY MICHAEL 9 ng/L Normal <12 [facility] Comment on above: Order Comment: Speci men Type: BLOOD SPECIMEN Ordering Facility: [facility] Address: [address] [place] [address] Result Comment: When assessing risk for acute coronary syndromes: In patients undergoing blood draw greater than or equal to 2 hours from symptom onset, with history of very low to moderate risk and non-ischemic ECG, an initial hs-Troponin T less than 12 ng/L AND a 1 hour delta hs-Troponin T less than 3 ng/L should be considered very low risk for 30 day MACE. Performed By: #### 1 989-3 #### [facility] CLIA [id number] [address] [place] [address] [place] Basic metabolic 2000 panelon 04-03-2022 Anion gap [Moles/Vol] 8 mmol/L Low 9 - 18 mmol/L [facility] Calcium [Mass/Vol] 9.7 mg/dL 8.5 - 10. 2 mg/dL [facility] Chloride [Moles/Vol] 104 mmol/L 97 - 10 5 mmol/L [facility] CO2 [Moles/Vol] 26 mmol/L 22 - 30 mmol/L [facility] Creatinine [Mass/Vol] 0.98 mg/dL High 0.58 - 0.96 mg/dL [facility] Estimated Glomerular Filtration Rate 61 mL/min/1.73m >=60 mL/min/1.7 3m [facility] Glucose [Mass/Vol] 109 mg/dL High 74 - 99 mg/dL [facility] Potassium [Moles/Vol] 4.3 mmol/L 3.7 - 5.1 mmol/L [facility] Sodium [Moles/Vol] 138 mmol/L 136 - 144 mmol/L [facility] Urea nitrogen [Mass/Vol] 25 mg/dL High 7 - 21 mg/dL [facility] CBC W Auto Differential pane l (Bld)on 04-03-2022 Basophils (Bld) [#/Vol] 0.03 10*3/uL <0.11 k/uL [facility] Basophils/100 WBC (Bld) 0.6 % [facility] Differential cell count method Nom (Bld) Auto [facility] Eosinophils (Bld) [#/Vol] 0.08 10*3/uL <0.46 k/uL [facility] Eosinophils/100 WBC (Bld) 1.6 % [facility] Erythrocyte distribution width (RBC) [Ratio] 12.8 % 11.5 - 15.0 % [facility] Hematocrit (Bld) [Volume fraction] 38.8 % 36.0 - 46.0 % [facility] Hemoglobin (Bld) [Mass/Vol] 13.0 g/dL 11.5 - 15.5 g/dL [facility] Immature granulocytes (Bld) [#/Vol] <0.10 k/uL [facility] Immature granulocytes/100 WBC (Bld) 0.4 % [facility] Lymphocytes (Bld) [#/Vol] 1.37 10*3/uL 1.00 - 4.00 k/uL [facility] Lymphocytes/100 WBC (Bld) 26.7 % [facility] MCH (RBC) [Entitic mass] 30.2 pg 26.0 - 34.0 pg [facility] MCHC (RBC) [Mass/Vol] 33.5 g/dL 30.5 - 36.0 g/dL [facility] MCV (RBC) [Entitic vol] 90.2 fL 80.0 - 100.0 fL [facility] Monocytes (Bld) [#/Vol] 0.63 10*3/uL <0.87 k/uL [facility] Monocytes/100 WBC (Bld) 12.3 % [facility] Neutrophils (Bld) [#/Vol] 3.00 10*3/uL 1.45 - 7.50 k/uL [facility] Neutrophils/100 WBC (Bld) 58.4 % [facility] Nucleated RBC (Bld) [#/Vol] <0.01 k/uL [facility] Nucleated RBC/100 WBC (Bld) [Ratio] 0.0 /100 WBC [facility] Platelet mean volume (Bld) [Entitic vol] 10.7 fL 9.0 - 12.7 fL [facility] Platelets (Bld) [#/Vol] 155 10*3/uL 150 - 400 k/uL [facility] RBC (Bld) [#/Vol] 4.30 10*6/uL 3.90 - 5.20 m/uL [facility] WBC (Bld) [#/Vol] 5.13 10*3/uL 3.70 - 11.00 k/uL [facility] Absolute lymphocyte countOrd ered By: Dr. Wang on 02-28-2022 Lymphocytes Auto (Unsp spec) [#/Vol] 1.32 10*3/uL 0.83-4.51 [facility] Basophil percentageOrdered B y: Dr. Wang on 02-28-2022 Basophils/100 WBC (Bld) 0.8 % 0-1 [facility] Bilirubin [Mass/Vol] 0.40 mg/dL 0.20-1.00 [facility] Comment on above: For patients on eltr ombopag therapy, use of Dimension [place] TBIL is not recommended. Chloride [Moles/Vol] 105 mmol/L 98-107 [facility] Eosinophils/100 WBC (Bld) 1.6 % 0-5 [facility] Glucose [Mass/Vol] 108 mg/dL 74-106 [facility] Comment on above: Fasting Glucose resu lt from 100 to 125 mg/dL suggests IMPAIRED HOMEOSTASIS per A.D.A. criteria. Neutrophils (Bld) [#/Vol] 3.0 10*3/uL 2.0-7.7 [facility] Neutrophils/100 WBC (Bld) 58.3 % 47-70 [facility] Potassium [Moles/Vol] 4.0 mmol/L 3.5-5.1 [facility] Protein [Mass/Vol] 6.7 g/dL 6.4-8.2 [facility] Sodium [Moles/Vol] 140 mmol/L 136-145 [facility] WBC (Bld) [#/Vol] 5.1 10*3/uL 4.4-11.0 [facility] Blood erythrocytes count (nu mber/volume)Ordered By: Dr. Wang on 02-28-2022 RBC (Bld) [#/Vol] 4.57 10*6/uL 4.2-5.4 [facility] Blood hemoglobin measurement (mass/volume)Ordered By: Dr. Wang on 02-28-2022 Hemoglobin (Bld) [Mass/Vol] 13.6 g/dL 12.0-15.0 [facility] Blood lymphocytes/100 leukoc ytesOrdered By: Dr. Wang on 02-28-2022 Lymphocytes/100 WBC (Bld) 25.9 % 19-41 [facility] Blood monocytes/100 leukocyt esOrdered By: Dr. Wang on 02-28-2022 Monocytes/100 WBC (Bld) 12.4 % 0-10 [facility] Blood platelet mean volumeOr dered By: Dr. Wang on 02-28-2022 Platelet mean volume (Bld) [Entitic vol] 10.8 fL 6.2-12.0 [facility] Determination of erythrocyte mean corpuscular volume (MCV)Ordered By: Dr. Wang on 02-28-2022 MCV (RBC) [Entitic vol] 91.5 fL 81-99 [facility] Hematocrit Auto (Bld) [Volum e fraction]Ordered By: Dr. Wang on 02-28-2022 Hematocrit (Bld) [Volume fraction] 41.8 % 37-47 [facility] - Chemistry and C hemistry - challengeOrdered By: Dr. Wang on 02-28-2022 ALP [Catalytic activity/Vol] 95 U/L 45-117 [facility] ALT [Catalytic activity/Vol] 34 U/L 13-56 [facility] CO2 [Moles/Vol] 30.0 mmol/L 21.0-32.0 [facility] Globulin (S) [Mass/Vol] 3.2 g/dL 2.2-4.2 [facility] Urea nitrogen/Creatinine [Mass ratio] 23.1 mg/mg 10-20 [facility] - Hematology and Cell countsOrdered By: Dr. Wang on 02-28-2022 Erythrocyte distribution width (RBC) [Entitic vol] 42.5 fL 35.1-43.9 [facility] Erythrocyte distribution width (RBC) [Ratio] 12.9 % 11.6-14.6 [facility] Immature granulocytes/100 WBC (Bld) 1.000 % 0.0-0.9 [facility] Comment on above: IG% - Immature Granu locytes (promyelocytes, myelocytes and metamyelocytes) > 1% indicates that a LEFT SHIFT is Present. MCH (RBC) [Entitic mass] 29.8 pg 27.0-32.0 [facility] Nucleated RBC/100 WBC (Bld) [Ratio] 0 % 0-5 [facility] MCHC Auto (RBC) [Mass/Vol]Or dered By: Dr. Wang on 02-28-2022 MCHC (RBC) [Mass/Vol] 32.5 g/dL 32-36 [facility] No Panel InformationOrdered By: Dr. Wang on 02-28-2022 Estimated GFR (MDRD) Amer 67 mL/min >60 [facility] Comment on above: GFR Calc Estimated GFR (MDRD) Non-Af Amer 55 mL/min >60 [facility] Comment on above: Non- GFR Calc Platelets bldOrdered By: Dr. Wang on 02-28-2022 Platelets (Bld) [#/Vol] 177 10*3/uL 150-450 [facility] Serum or plasma albumin fredrick urement (mass/volume)Ordered By: Dr. Wang on 02-28-2022 Albumin [Mass/Vol] 3.5 g/dL 3.2-5.0 [facility] Serum or plasma albumin/glob ulin mass ratioOrdered By: Dr. Wang on 02-28-2022 Albumin/Globulin [Mass ratio] 1.1 {ratio} 0.9-2.4 [facility] Serum or plasma calcium fredrick urement (mass/volume)Ordered By: Dr. Wang on 02-28-2022 Calcium [Mass/Vol] 10.0 mg/dL 8.5-10.1 [facility] Serum or plasma creatinine m easurement (mass/volume)Ordered By: Dr. Wang on 02-28-2022 Creatinine [Mass/Vol] 1.04 mg/dL 0.55-1.02 [facility] Comment on above: The validity of the calculated GFR & GFRAA in patients over 70 years has not been determined. Clinical correlation is essential. Serum or plasma urea nitroge n measurement (mass/volume)Ordered By: Dr. Wang on 02-28-2022 Urea nitrogen [Mass/Vol] 24 mg/dL 7- [facility] Thin prep Papanicolaou smear with manual screeningOrdered By: Dr. Wang on 02-28-2022 Thin prep Papanicolaou smear with manual screening 25 U/L 15 [facility] Thin prep Papanicolaou smear with manual screening 5 5-15 [facility] LUNG DIFFUSION CAPACITY (ALAN O)on 01-16-2022 [facility] SPIROMETRY BASELINE ONLYon 1 03-19-2021 DLCO (ml/min/mmHg) 18.29 ml/min/mmHg [facility] DLCO/VA (ml/min/mmHg/L) 4.30 ml/min/mmHg/L [facility] THY33-06% PRE (L/S) 0.77 L/S [facility] FEV1 PRE (L) 1.37 L [facility] FEV1/FVC PRE (%) 69 % [facility] FVC PRE (L) 2.00 L [facility] PEF PRE (L/S) 4.58 L/S [facility] VA (L) 4.25 L [facility] HEMOGLOBIN A1C (POC)on 12-09 HbA1c (Bld) [Mass fraction] 6.2 % 4.2 - 5.6 % [facility] Basic metabolic 2000 panelon 12-01-2021 Anion gap [Moles/Vol] 9 mmol/L 9 - 18 mmol/L [facility] Calcium [Mass/Vol] 9.9 mg/dL 8.5 - 10. 2 mg/dL [facility] Chloride [Moles/Vol] 105 mmol/L 97 - 10 5 mmol/L [facility] CO2 [Moles/Vol] 26 mmol/L 22 - 30 mmol/L [facility] Creatinine [Mass/Vol] 0.86 mg/dL 0.58 - 0.96 mg/dL [facility] Estimated Glomerular Filtration Rate 72 mL/min/1.73m >=60 mL/min/1.7 3m [facility] Glucose [Mass/Vol] 131 mg/dL High 74 - 99 mg/dL [facility] Potassium [Moles/Vol] 4.0 mmol/L 3.7 - 5.1 mmol/L [facility] Sodium [Moles/Vol] 140 mmol/L 136 - 144 mmol/L [facility] Urea nitrogen [Mass/Vol] 23 mg/dL High 7 - 21 mg/dL [facility] CBC W Auto Differential pane l (Bld)on 12-01-2021 Basophils (Bld) [#/Vol] <0.11 k/uL [facility] Basophils/100 WBC (Bld) 0.4 % [facility] Differential cell count method Nom (Bld) Auto [facility] Eosinophils (Bld) [#/Vol] 0.08 10*3/uL <0.46 k/uL [facility] Eosinophils/100 WBC (Bld) 1.5 % [facility] Erythrocyte distribution width (RBC) [Ratio] 12.8 % 11.5 - 15.0 % [facility] Hematocrit (Bld) [Volume fraction] 37.1 % 36.0 - 46.0 % [facility] Hemoglobin (Bld) [Mass/Vol] 12.4 g/dL 11.5 - 15.5 g/dL [facility] Immature granulocytes (Bld) [#/Vol] 0.06 10*3/uL <0.10 k/uL [facility] Immature granulocytes/100 WBC (Bld) 1.1 % [facility] Lymphocytes (Bld) [#/Vol] 1.18 10*3/uL 1.00 - 4.00 k/uL [facility] Lymphocytes/100 WBC (Bld) 21.5 % [facility] MCH (RBC) [Entitic mass] 30.4 pg 26.0 - 34.0 pg [facility] MCHC (RBC) [Mass/Vol] 33.4 g/dL 30.5 - 36.0 g/dL [facility] MCV (RBC) [Entitic vol] 90.9 fL 80.0 - 100.0 fL [facility] Monocytes (Bld) [#/Vol] 0.55 10*3/uL <0.87 k/uL [facility] Monocytes/100 WBC (Bld) 10.0 % [facility] Neutrophils (Bld) [#/Vol] 3.61 10*3/uL 1.45 - 7.50 k/uL [facility] Neutrophils/100 WBC (Bld) 65.5 % [facility] Nucleated RBC (Bld) [#/Vol] <0.01 k/uL [facility] Nucleated RBC/100 WBC (Bld) [Ratio] 0.0 /100 WBC [facility] Platelet mean volume (Bld) [Entitic vol] 10.7 fL 9.0 - 12.7 fL [facility] Platelets (Bld) [#/Vol] 154 10*3/uL 150 - 400 k/uL [facility] RBC (Bld) [#/Vol] 4.08 10*6/uL 3.90 - 5.20 m/uL [facility] WBC (Bld) [#/Vol] 5.50 10*3/uL 3.70 - 11.00 k/uL [facility] HEMOGLOBIN A1C (POC)on 09-06 HbA1c (Bld) [Mass fraction] 6.1 % 4.2 - 5.6 % [facility] Absolute lymphocyte counton 09-02-2021 Lymphocytes Auto (Unsp spec) [#/Vol] 1.17 10*3/uL 0.83-4.51 [facility] Work Phone: Basophil percentageon 2021 Basophils/100 WBC (Bld) 0.5 % 0-1 [facility] Work Phone: Bilirubin [Mass/Vol] 0.30 mg/dL 0.20-1.00 [facility] Work Phone: Comment on above: For patients on eltr ombopag therapy, use of Dim[place] TBIL is not recommended. Chloride [Moles/Vol] 109 mmol/L 98-107 [facility] Work Phone: Eosinophils/100 WBC (Bld) 1.1 % 0-5 [facility] Work Phone: Glucose [Mass/Vol] 140 mg/dL 74-106 [facility] Work Phone: Comment on above: Fasting Glucose resu lt greater than or equal to 126 mg/dL suggests DIABETES MELLITUS per A.D.A. criteria. Neutrophils (Bld) [#/Vol] 3.8 10*3/uL 2.0-7.7 [facility] Work Phone: Neutrophils/100 WBC (Bld) 66.0 % 47-70 [facility] Work Phone: Potassium [Moles/Vol] 4.0 mmol/L 3.5-5.1 [facility] Work Phone: Protein [Mass/Vol] 6.5 g/dL 6.4-8.2 [facility] Work Phone: Sodium [Moles/Vol] 141 mmol/L 136-145 [facility] Work Phone: WBC (Bld) [#/Vol] 5.7 10*3/uL 4.4-11.0 [facility] Work Phone: Blood erythrocytes count (nu mber/volume)on 09-02-2021 RBC (Bld) [#/Vol] 4.24 10*6/uL 4.2-5.4 [facility] Work Phone: Blood hemoglobin measurement (mass/volume)on 09-02-2021 Hemoglobin (Bld) [Mass/Vol] 13.1 g/dL 12.0-15.0 [facility] Work Phone: Blood lymphocytes/100 leukoc yteson 09-02-2021 Lymphocytes/100 WBC (Bld) 20.6 % 19-41 [facility] Work Phone: Blood monocytes/100 leukocyt eson 09-02-2021 Monocytes/100 WBC (Bld) 10.9 % 0-10 [facility] Work Phone: Blood platelet mean volumeon 09-02-2021 Platelet mean volume (Bld) [Entitic vol] 10.9 fL 6.2-12.0 [facility] Work Phone: [phone] Determination of erythrocyte mean corpuscular volume (MCV)on 09-02-2021 MCV (RBC) [Entitic vol] 91.7 fL 81-99 [facility] Work Phone: Hematocrit Auto (Bld) [Volum e fraction]on 09-02-2021 Hematocrit (Bld) [Volume fraction] 38.9 % 37-47 [facility] Work Phone: Laboratory - Chemistry and C hemistry - challengeon 09-02-2021 ALP [Catalytic activity/Vol] 99 U/L 45-117 [facility] Work Phone: ALT [Catalytic activity/Vol] 31 U/L 13-56 [facility] Work Phone: CO2 [Moles/Vol] 27.0 mmol/L 21.0-32.0 [facility] Work Phone: Globulin (S) [Mass/Vol] 3.2 g/dL 2.2-4.2 [facility] Work Phone: Urea nitrogen/Creatinine [Mass ratio] 22.1 mg/mg 10-20 [facility] Work Phone: Laboratory - Hematology and Cell countson 09-02-2021 Erythrocyte distribution width (RBC) [Entitic vol] 44.2 fL 35.1-43.9 [facility] Work Phone: Erythrocyte distribution width (RBC) [Ratio] 13.2 % 11.6-14.6 [facility] Work Phone: Immature granulocytes/100 WBC (Bld) 0.900 % 0.0-0.9 [facility] Work Phone: Comment on above: IG% - Immature Granu locytes (promyelocytes, myelocytes and metamyelocytes) > 1% indicates that a LEFT SHIFT is Present. MCH (RBC) [Entitic mass] 30.9 pg 27.0-32.0 [facility] Work Phone: Nucleated RBC/100 WBC (Bld) [Ratio] 0 % 0-5 [facility] Work Phone: MCHC Auto (RBC) [Mass/Vol]on 09-02-2021 MCHC (RBC) [Mass/Vol] 33.7 g/dL 32-36 [facility] Work Phone: No Panel Informationon 09-02 Estimated GFR (MDRD) Amer 61 mL/min >60 [facility] Work Phone: Comment on above: GFR Calc Estimated GFR (MDRD) Non-Af Amer 50 mL/min >60 [facility] Work Phone: Comment on above: Non- GFR Calc Platelets bldon 09-02-2021 Platelets (Bld) [#/Vol] 160 10*3/uL 150-450 [facility] Work Phone: Serum or plasma albumin fredrick urement (mass/volume)on 09-02-2021 Albumin [Mass/Vol] 3.3 g/dL 3.2-5.0 [facility] Work Phone: Serum or plasma albumin/glob ulin mass ratioon 09-02-2021 Albumin/Globulin [Mass ratio] 1.0 {ratio} 0.9-2.4 [facility] Work Phone: Serum or plasma calcium fredrick urement (mass/volume)on 09-02-2021 Calcium [Mass/Vol] 10.0 mg/dL 8.5-10.1 [facility] Work Phone: Serum or plasma creatinine m easurement (mass/volume)on 09-02-2021 Creatinine [Mass/Vol] 1.13 mg/dL 0.55-1.02 [facility] Work Phone: Comment on above: The validity of the calculated GFR & GFRAA in patients over 70 years has not been determined. Clinical correlation is essential. Serum or plasma urea nitroge n measurement (mass/volume)on 09-02-2021 Urea nitrogen [Mass/Vol] 25 mg/dL 7-18 [facility] Work Phone: Thin prep Papanicolaou smear with manual screeningon 09-02-2021 Thin prep Papanicolaou smear with manual screening 21 U/L 15-37 [facility] Work Phone: Thin prep Papanicolaou smear with manual screening 5 5-15 [facility] Work Phone: COLONOSCOPY SCREENINGon 06-05 [facility] EGD DIAGNOSTICon 06-21-2021 [facility] Laboratory - Drug toxicology on 06-15-2021 Amphetamines Ql (U) Negative <1000 ng/mL [facility] Work Phone: Benzodiazepines Ql (U) Negative < 200 ng/mL [facility] Work Phone: Cannabinoids Screen Ql (U) Negative < 50 ng/mL [facility] Work Phone: Cocaine Ql (U) Negative < 300 ng/mL [facility] Work Phone: Opiates Ql (U) Positive < 300 ng/mL [facility] Work Phone: No Panel Informationon 06-15 MDMA (Ecstasy) Screen Negative < 500 ng/mL [facility] Work Phone: Miscellaneous Test See comment [facility] Work Phone: Comment on above: [id number] 6+OXYCODONE-B UND (ng/mL) DRUG RESULT SCREEN CUTOFF____ Amphetamines,Urine Negative ng/mL 1000 Amphetamine test includes Amphetamine and Methamphetamine.Barbiturates Negative ng/mL 200Benzodiazepines Negative ng/mL 200Cannabinoid Negative ng/mL 20Cocaine (Metab) Negative ng/mL 300Opiates Positive ng/mL 300 Opiates test includes Codeine, Morphine, Hydromorphone, Hydrocodone. Please Note: Confirmation performed by Mass Spectrometry Codeine Negative 300 Morphine Positive Morphine Conf, MS, UR >3000 ng/mL 300 Hydromorphone Negative 300 Hydrocodone Negative 300Oxycodone/Oxymorphone,Urine Negative ng/mL 300 Test includes Oxydodone and Oxymorphone. TESTING PERFORMED AT [facility]. ORIGINAL REPORT ON FILE IN LAB CONTAINS ADDITIONAL TEST SITE INFORMATION. Urine Barbiturates Screen Negative < 200 ng/mL [facility] Work Phone: Urine Drug Screen Comment [facility] Work Phone: Comment on above: CONFIRMATORY TESTING FOR ALL POSITIVE URINE DRUG SCREENRESULTS WILL ONLY BE SENT OUT UPON PHYSICIAN ORDER. VISTA Urine Drug Screen methods provide only preliminaryanalytical test results. A more specific alternate chemicalmethod must be used in order to obtain a confirmedanalytical result. Gas chromatography/mass spectrometery(GC/MS) is the preferred confirmatory method. Clinicalconsideration and professional judgement should be appliedto any drug of abuse test result, particularly whenpreliminary positive results are used. URINE TCA TESTING MUST BE ORDERED SEPARATELY. USE TESTMNEMONIC: [facility] Urine Methadone Screen Negative < 300 ng/mL [facility] Work Phone: Urine phencyclidine (PCP) de tectionon 06-15-2021 Phencyclidine Ql (U) Negative < 25 ng/mL [facility] Work Phone: HEMOGLOBIN A1C (POC)on 06-06 HbA1c (Bld) [Mass fraction] 6.4 % 4.2 - 5.6 % [facility] Absolute lymphocyte counton 06-04-2021 Lymphocytes Auto (Unsp spec) [#/Vol] 1.35 10*3/uL 0.83-4.51 [facility] Work Phone: Basophil percentageon 2021 Basophils/100 WBC (Bld) 0.6 % 0-1 [facility] Work Phone: Bilirubin [Mass/Vol] 0.40 mg/dL 0.20-1.00 [facility] Work Phone: Comment on above: For patients on eltr ombopag therapy, use of Dim[place] TBIL is not recommended. Chloride [Moles/Vol] 107 mmol/L 98-107 [facility] Work Phone: Eosinophils/100 WBC (Bld) 1.9 % 0-5 [facility] Work Phone: Glucose [Mass/Vol] 125 mg/dL 74-106 [facility] Work Phone: Comment on above: Fasting Glucose resu lt from 100 to 125 mg/dL suggests IMPAIRED HOMEOSTASIS per A.D.A. criteria. Neutrophils (Bld) [#/Vol] 3.0 10*3/uL 2.0-7.7 [facility] Work Phone: Neutrophils/100 WBC (Bld) 57.1 % 47-70 [facility] Work Phone: Potassium [Moles/Vol] 4.0 mmol/L 3.5-5.1 [facility] Work Phone: Protein [Mass/Vol] 6.6 g/dL 6.4-8.2 [facility] Work Phone: Sodium [Moles/Vol] 140 mmol/L 136-145 [facility] Work Phone: WBC (Bld) [#/Vol] 5.3 10*3/uL 4.4-11.0 [facility] Work Phone: Blood erythrocytes count (nu mber/volume)on 06-04-2021 RBC (Bld) [#/Vol] 4.41 10*6/uL 4.2-5.4 [facility] Work Phone: Blood hemoglobin measurement (mass/volume)on 06-04-2021 Hemoglobin (Bld) [Mass/Vol] 12.9 g/dL 12.0-15.0 [facility] Work Phone: Blood lymphocytes/100 leukoc yteson 06-04-2021 Lymphocytes/100 WBC (Bld) 25.5 % 19-41 [facility] Work Phone: Blood monocytes/100 leukocyt eson 06-04-2021 Monocytes/100 WBC (Bld) 14.3 % 0-10 [facility] Work Phone: Blood platelet mean volumeon 06-04-2021 Platelet mean volume (Bld) [Entitic vol] 10.5 fL 6.2-12.0 [facility] Work Phone: [phone] Determination of erythrocyte mean corpuscular volume (MCV)on 06-04-2021 MCV (RBC) [Entitic vol] 91.8 fL 81-99 [facility] Work Phone: Hematocrit Auto (Bld) [Volum e fraction]on 06-04-2021 Hematocrit (Bld) [Volume fraction] 40.5 % 37-47 [facility] Work Phone: [phone] Laboratory - Chemistry and C hemistry - challengeon 06-04-2021 ALP [Catalytic activity/Vol] 92 U/L 45-117 [facility] Work Phone: ALT [Catalytic activity/Vol] 34 U/L 13-56 [facility] Work Phone: CO2 [Moles/Vol] 30.0 mmol/L 21.0-32.0 [facility] Work Phone: [phone] Globulin (S) [Mass/Vol] 3.2 g/dL 2.2-4.2 [facility] Work Phone: [phone] Urea nitrogen/Creatinine [Mass ratio] 20.5 mg/mg 10-20 [facility] Work Phone: Laboratory - Hematology and Cell countson 06-04-2021 Erythrocyte distribution width (RBC) [Entitic vol] 45.0 fL 35.1-43.9 [facility] Work Phone: Erythrocyte distribution width (RBC) [Ratio] 13.2 % 11.6-14.6 [facility] Work Phone: Immature granulocytes/100 WBC (Bld) 0.600 % 0.0-0.9 [facility] Work Phone: Comment on above: IG% - Immature Granu locytes (promyelocytes, myelocytes and metamyelocytes) > 1% indicates that a LEFT SHIFT is Present. MCH (RBC) [Entitic mass] 29.3 pg 27.0-32.0 [facility] Work Phone: Nucleated RBC/100 WBC (Bld) [Ratio] 0 % 0-5 [facility] Work Phone: MCHC Auto (RBC) [Mass/Vol]on 06-04-2021 MCHC (RBC) [Mass/Vol] 31.9 g/dL 32-36 [facility] Work Phone: No Panel Informationon 06-04 Estimated GFR (MDRD) Amer 58 mL/min >60 [facility] Work Phone: Comment on above: GFR Calc Estimated GFR (MDRD) Non-Af Amer 48 mL/min >60 [facility] Work Phone: Comment on above: Non- GFR Calc Platelets bldon 06-04-2021 Platelets (Bld) [#/Vol] 168 10*3/uL 150-450 [facility] Work Phone: Serum or plasma albumin fredrick urement (mass/volume)on 06-04-2021 Albumin [Mass/Vol] 3.4 g/dL 3.2-5.0 [facility] Work Phone: Serum or plasma albumin/glob ulin mass ratioon 06-04-2021 Albumin/Globulin [Mass ratio] 1.1 {ratio} 0.9-2.4 [facility] Work Phone: Serum or plasma calcium fredrick urement (mass/volume)on 06-04-2021 Calcium [Mass/Vol] 9.4 mg/dL 8.5-10.1 [facility] Work Phone: Serum or plasma creatinine m easurement (mass/volume)on 06-04-2021 Creatinine [Mass/Vol] 1.17 mg/dL 0.55-1.02 [facility] Work Phone: Comment on above: The validity of the calculated GFR & GFRAA in patients over 70 years has not been determined. Clinical correlation is essential. Serum or plasma urea nitroge n measurement (mass/volume)on 06-04-2021 Urea nitrogen [Mass/Vol] 24 mg/dL 7-18 [facility] Work Phone: Thin prep Papanicolaou smear with manual screeningon 06-04-2021 Thin prep Papanicolaou smear with manual screening 25 U/L 15-37 [facility] Work Phone: [phone] Thin prep Papanicolaou smear with manual screening 3 5-15 [facility] Work Phone: Absolute lymphocyte counton 03-08-2021 Lymphocytes Auto (Unsp spec) [#/Vol] 1.25 10*3/uL 0.83-4.51 [facility] Work Phone: Basophil percentageon 2021 Basophils/100 WBC (Bld) 0.8 % 0-1 [facility] Work Phone: Bilirubin [Mass/Vol] 0.40 mg/dL 0.20-1.00 [facility] Work Phone: Comment on above: For patients on eltr ombopag therapy, use of [place] TBIL is not recommended. Chloride [Moles/Vol] 107 mmol/L 98-107 [facility] Work Phone: Eosinophils/100 WBC (Bld) 1.9 % 0-5 [facility] Work Phone: Glucose [Mass/Vol] 106 mg/dL 74-106 [facility] Work Phone: Comment on above: Fasting Glucose resu lt from 100 to 125 mg/dL suggests IMPAIRED HOMEOSTASIS per A.D.A. criteria. Neutrophils (Bld) [#/Vol] 4.1 10*3/uL 2.0-7.7 [facility] Work Phone: [phone] Neutrophils/100 WBC (Bld) 64.2 % 47-70 [facility] Work Phone: Potassium [Moles/Vol] 3.8 mmol/L 3.5-5.1 [facility] Work Phone: Protein [Mass/Vol] 6.7 g/dL 6.4-8.[address] [facility] [facility] [facility] Work Phone: Sodium [Moles/Vol] 140 mmol/L 136-145 [facility] Work Phone: WBC (Bld) [#/Vol] 6.4 10*3/uL 4.4-11.0 [facility] Work Phone: Blood erythrocytes count (nu mber/volume)on 03-08-2021 RBC (Bld) [#/Vol] 3.82 10*6/uL 4.2-5.4 [facility]: Blood hemoglobin measurement (mass/volume)on 03-08-2021 Hemoglobin (Bld) [Mass/Vol] 12.1 g/dL 12.0-15.0 [facility] Work Phone: Blood lymphocytes/100 leukoc yteson 03-08-2021 Lymphocytes/100 WBC (Bld) 19.6 % 19-41 [facility] Work Phone: Blood monocytes/100 leukocyt eson 03-08-2021 Monocytes/100 WBC (Bld) 12.2 % 0-10 [facility] Work Phone: Blood platelet mean volumeon 03-08-2021 Platelet mean volume (Bld) [Entitic vol] 11.6 fL 6.2-12.0 [facility] Work Phone: Determination of erythrocyte mean corpuscular volume (MCV)on 03-08-2021 MCV (RBC) [Entitic vol] 98.4 fL 81-99 [facility] Work Phone: Hematocrit Auto (Bld) [Volum e fraction]on 03-08-2021 Hematocrit (Bld) [Volume fraction] 37.6 % 37-47 [facility] Work Phone: [phone] Laboratory - Chemistry and C hemistry - challengeon 03-08-2021 ALP [Catalytic activity/Vol] 145 U/L 45-117 [facility] Work Phone: ALT [Catalytic activity/Vol] 54 U/L 13-56 [facility] Work Phone: CO2 [Moles/Vol] 29.0 mmol/L 21.0-32.0 [facility] Work Phone: [phone] Globulin (S) [Mass/Vol] 3.4 g/dL 2.2-4.2 [facility] Work Phone: [phone] Urea nitrogen/Creatinine [Mass ratio] 23.7 mg/mg 10-20 [facility] Work Phone: [phone] Laboratory - Hematology and Cell countson 03-08-2021 Erythrocyte distribution width (RBC) [Entitic vol] 47.0 fL 35.1-43.9 [facility] Work Phone: [phone] Erythrocyte distribution width (RBC) [Ratio] 13.2 % 11.6-14.6 [facility] Work Phone: [phone] Immature granulocytes/100 WBC (Bld) 1.300 % 0.0-0.9 [facility] Work Phone: [phone] Comment on above: IG% - Immature Granu locytes (promyelocytes, myelocytes and metamyelocytes) > 1% indicates that a LEFT SHIFT is Present. MCH (RBC) [Entitic mass] 31.7 pg 27.0-32.0 [facility] Work Phone: [phone] Nucleated RBC/100 WBC (Bld) [Ratio] 0 % 0-5 [facility] Work Phone: [phone] MCHC Auto (RBC) [Mass/Vol]on 03-08-2021 MCHC (RBC) [Mass/Vol] 32.2 g/dL 32-36 [facility] Work Phone: [phone] No Panel Informationon 03-08 Estimated GFR (MDRD) Amer 76 mL/min >60 [facility] Work Phone: Comment on above: GFR Calc Estimated GFR (MDRD) Non-Af Amer 63 mL/min >60 [facility] Work Phone: Comment on above: Non- GFR Calc Platelets bldon 03-08-2021 Platelets (Bld) [#/Vol] 186 10*3/uL 150-450 [facility] Work Phone: Serum or plasma albumin fredrick urement (mass/volume)on 03-08-2021 Albumin [Mass/Vol] 3.3 g/dL 3.2-5.0 [facility] Work Phone: Serum or plasma albumin/glob ulin mass ratioon 03-08-2021 Albumin/Globulin [Mass ratio] 1.0 {ratio} 0.9-2.4 [facility] Work Phone: Serum or plasma calcium fredrick urement (mass/volume)on 03-08-2021 Calcium [Mass/Vol] 10.1 mg/dL 8.5-10.1 [facility] Work Phone: Serum or plasma creatinine m easurement (mass/volume)on 03-08-2021 Creatinine [Mass/Vol] 0.93 mg/dL 0.55-1.02 [facility] Work Phone: Comment on above: The validity of the calculated GFR & GFRAA in patients over 70 years has not been determined. Clinical correlation is essential. Serum or plasma urea nitroge n measurement (mass/volume)on 03-08-2021 Urea nitrogen [Mass/Vol] 22 mg/dL 7-18 [facility] Work Phone: Thin prep Papanicolaou smear with manual screeningon 03-08-2021 Thin prep Papanicolaou smear with manual screening 58 U/L 15-37 [facility] Work Phone: Thin prep Papanicolaou smear with manual screening 4 5-15 [facility] Work Phone: US EXT MASS/FLUID COLLECTION LTon 12-17-2018 US EXT MASS/FLUID COLLECTION LT * * *Final Report* * * DATE OF EXAM: Dec 17 2018 4:10PM LDU 1024 - US EXT MASS/FLUID COLLECTION LT / PROCEDURE REASON: Continuous leakage of urine * * * * Physician Interpretation * * * * Targeted ultrasound CLINICAL HISTORY:Left leg lump COMPARISON: None TECHNIQUE: Sonography of the left leg was performed. Images were obtained and stored in a permanent archive. FINDINGS: as impression. IMPRESSION: Targeted evaluation of the lateral aspect of the left knee, area of palpable abnormality described by the patient, demonstrates focal subcutaneous soft tissue swelling. No mass or loculated fluid collection. Pairer Inspector: PSCB Transcribe Date/Time: Dec 18 2018 8:06A Dictated by : LUIS KOLB MD This examination was interpreted and the report reviewed and electronically signed by: LUIS KOLB MD on Dec 18 2018 8:07AM EST Normal [facility] CNOVon 04-09-2017 CNOV Office Visit (AGCARDWST) ----SAEID URBINA ([id number]) 1950 [facility] Time Provider Department04/09/17 11:00 AM PRIETO WASHINGTON AGCARDWST During your visit today, we recorded the following information about you: Pulse Blood pressure Weight Height 76/minute 112/68 117.6 kg 1.6 Daniel Washington MD 04/09/2017 1:30 PM SignedPERTINENT CARDIAC HISTORYASHD - presumedHTNHLDMOSA - CPAPCHF - diastolicADHERENCE TO GUIDELINESACE-I or ARB for HF with prior LVEFANDlt;40 (NQF 0081) - N/AASA or Plavix for ASHD (NQF 0067) - metBeta bjorn for ASHD with prior [place] or prior LVEFANDlt;40 (NQF 0070) - N/ABeta bjorn for HF with prior LVEFANDlt;40 (NQF 0083) - N/AACE-I or ARB for ASHD with DM or prior LVEFANDlt;40 (NQF 0066) - metStatin therapy for ASHD or FHL or DM - metBMI documented and plan if ANDgt;25 (NQF 0421) - lifestyle recommendation formTobacco use screening and referral ([facility] 0028) - lifestyle recommendation formRecommendation for whole food, plant based diet - lifestyle recommendation formCLINICAL IMPRESSION/PLAN:Saeid Urbina has evidence of mild volume overload. This has been an issueintermittently and is likely related to diastolic heart failure. She wasadvised to check blood pressures to make sure that they are running in a goodrange at home.In the past, symptoms like this have been associated with urinary infection.She denies symptoms at this time, but I have recommended that she go to urgentcare for evaluationShe's been advised to increase Lasix and Aldactone to twice daily for the nextfew days to see if this helps with her sensations. I've asked her to contact meand let me know of her progress by the end of the week.I will see her in 6 months or as needed.Written and verbal health teaching given to patient, patient verbalizesunderstanding and agrees with treatment plan.This note was generated using [employer] voice recognition system, and there may besome incorrect words, spellings, and punctuation that were not noted inchecking the note before saving.DIAGNOSIS FOR VISIT:ASHDHypertensionHISTORY OF PRESENT ILLNESSSaeid Urbina returns for follow-up of her presumed coronary disease andhypertension.She did some water aerobics over the winter and tolerated this fairly well. Shehas been feeling lethargic over the last week. She's had no symptoms oflocalized infection and no fever or chills.She denies chest discomfort. She's had minimal shortness of breath. She's hadslight worsening of her edema. She denies syncope. She's had no palpitations,TIAs, amaurosis or claudication.ALLERGIES:ALLERG IESAllergen Reactions- Ciprofloxacin Hives- Claritin [Loratadin* Intolerance- Dicyclomine Other: See Comments, Unknown- E-Mycin [Erythromyc* GI Upset, Itching- Naproxen Swelling Feet swelled in 2 days- Oruvail [Ketoprofen] Rash- Relafen [Nabumetone] swelling- Statin [Other] Intolerance joint painCURRENT OUTPATIENT MEDICATIONS:spironolactone (ALDACTONE) 25 mg tablet Take 1 tablet by mouth once daily.lovastatin (MEVACOR) 10 mg tablet Take 1 tablet by mouth once daily.valsartan (DIOVAN) 320 mg tablet Take 1 tablet by mouth once daily.morphine SR (MS CONTIN, ORAMORPH SR) 30 mg 12 hr tablet Take 1 tablet by mouthtwice daily.Earliest Fill Date: 03/09/17Omega-3 Fatty Acids (FISH OIL) 500 mg cap Take 1 capsule by mouth once daily.alpha tocopheryl acetate (VITAMIN E) 400 unit capsule Take 1 capsule by mouthtwice daily.DULoxetine (CYMBALTA) 30 mg capsule Take 1 capsule by mouth once daily.dexamethasone (DECADRON) 0.5 mg/5 mL solution Take 5 mL by mouth once daily.Fenofibrate (LOFIBRA) 54 mg tablet TAKE 1 TABLET BY MOUTH EVERY DAYranitidine (ZANTAC) 150 mg tablet TAKE 1 TABLET BY MOUTH TWICE A DAYamLODIPine (NORVASC) 10 mg tablet TAKE 1 TABLET DAILYONETOUCH ULTRA TEST test strip TEST GLUCOSE 1 X DAILY, DX: E11.9, INSULIN USE:NOmagnesium oxide (MAG-OX) 400 mg tablet TAKE 1 TABLET BY MOUTH ONCE DAILY.LEFLUNOMIDE (ARAVA ORAL) Take by mouth.morphine SR (MS CONTIN, ORAMORPH SR) 15 mg 12 hr tablet Take 15 mg by mouthevery 8 hours as needed.Fenofibrate (LOFIBRA) 54 mg tablet Take 1 tablet by mouth once daily.furosemide (LASIX) 20 mg tablet TAKE 1 TABLET BY MOUTH ONCE DAILY.metoprolol succinate ER (TOPROL XL) 50 mg 24 hr tablet Take 1 tablet by mouthonce daily.metFORMIN ER (GLUCOPHAGE XR) 500 mg 24 hr tablet Take 2 tablets by mouth dailywith breakfast.selenium sulfide 2.5 % lotn Apply 1 application to affected area twice daily asneeded.lancets (ONE TOUCH DELICA) 33 gauge misc Test blood sugar(s) 1 daily. Dx: Type2 DM - Controlled E11.9 Insulin: NoBlood-Glucose Meter (ONETOUCH ULTRA2) monitoring kit 1 Each as needed. OneTouch Meter Kit Diagnosis: Type 2 DM - Controlled E11.9CPAP Replace CPAP equipment: Cpap @ 11 cm of water without heatedhumidification. New Mask (per patient preference) optional chin strap (ifindicated), head gear, filters, tubing, humidifier and other supplies. Lengthof need 12 months, or lifetime if able. Dx: G47.33albuterol HFA (PROAIR HFA) 90 mcg/actuation inhaler Inhale 2 Puffs asinstructed every 4 hours as needed for Wheezing/Shortness of Breath (Rescue).cyanocobalamin (VITAMIN B-12) 1,000 mcg tab Take 1,000 mcg by mouth once daily.GABAPENTIN ORAL Take 300 mg by mouth four times daily as needed (per Michele).mometasone-formoter ol (DULERA) 100-5 mcg/actuation inhaler Inhale 2 Puffs asinstructed twice daily.COMPOUNDED PRESCRIPTION Wheeled Seated Walker. Dx: Chronic back pain M54.5,and RA M06.9acetaminophen (TYLENOL EXTRA STRENGTH) 500 mg tablet Take 500 mg by mouth every8 hours as needed.Biotin 10 mg Tab 5000 mg dailymultivitamin ORAL tablet Take 1 tablet by mouth once daily.sennosides/docusate sodium(SENOKOT-S 8.6 MG-50 MG TAB) Take one(1) tablet dailyas needed.FOLIC ACID 800 MCG TAB Take one(1) tablet every other dayASPIRIN 81 MG TAB Take one (1) tablet daily .oxyCODONE-acetaminophen (PERCOCET) 7.5-325 mg tablet Take 1 tablet by mouthevery 8 hours as needed. iPHYSICAL EXAMINATION:VITAL SIGNS: BP 112/68 Pulse 76 Ht 5' 3ANDquot; (1.60m) Wt 259 lb 3.2 oz(117.6kg) BMI 45.93 kg/(m2).Chest: Clear to percussion and auscultation. Decreased breath sounds are notedat the left base. Trachea is midline. Air entry is equal. Cardiac: Regularrhythm. S1 and S2 are normal. PMI is nondisplaced. There is a soft systolicejection murmur. Carotids are brisk with soft bilateral bruits. JVP is lessthan 10 cm. Abdomen: Soft and nontender. There are no pulsatile masses orbruits. No liver enlargement. Bowel sounds are active. Extremities: Traceedema. Pulses are intact and symmetrical.EKG shows sinus rhythm. There is poor R-wave progression. There is nosignificant change from 08/11/15.Recent labs were reviewed. Renal function is moderately decreased, but stable.CBC was within normal limits. LDL was 46.Electronically Signed:Prieto Washington [facility] 2017 11:28 [facility]: Nadine BETH MD 04/09/2017 11:28 AM SignedLIFESTYLE CHANGEA healthy lifestyle is the most important component of your overall treatmentplan. Please give serious thought to the following areas and commit to makinglong term changes.EAT A WHOLE FOOD, PLANT BASED DIETThe nutrition your body gets is more important than the medicine you take.What matters most is the overall way you eat. We encourage you to minimize theuse of animal products (which include dairy and all meats except fatty fish)and use whole, unprocessed plant foods to provide your protein, vitamins andother nutrients. We have a lot of information to share with you on this topic. We also hold Shared Medical Appointments, where you can come visit with in the company of other patients and spend over an hour talking aboutthe challenges of changing the way you eat. This is not a ANDquot;dietANDquot;.It is a way of life that you will keep with you.EXERCISE REGULARLYIt is not important to spend hours in the gym, lifting weights and perspiringheavily. A total of 2-3 hours per week of aerobic (causing you to bemoderately short of breath) exercise is sufficient to improve your health.Talk to us before you begin a new exercise program, if you have heart diseaseor experience shortness of breath or chest pain.REDUCE STRESSChronic emotional and physical stress leads to disease. Ways of reducingstress include meditation, visualization, prayer, yoga and other forms ofrelaxation therapy. Consistency is the mae. Find a technique that works foryou and do it every day.CULTIVATE RELATIONSHIPSLoneliness and isolation have a major negative impact on health. Seek outothers who can love, care for and nurture you. Avoid hurtful relationships.MAINTAIN IDEAL BODY WEIGHTThe best way to do this is to do all the things above. Our bodies naturallyfind the right weight if we keep moving and feed ourselves the right food. Ifyour BMI is greater than 25, we strongly recommend a referral to a weightmanagement program. Please speak to us or your family physician aboutavailable programs.AVOID NICOTINE IN ALL FORMSThis includes all tobacco products, whether chewed, smoked, vaped, or rubbed onthe skin. Smoking cessation programs, which can make use of tobaccosubstitutes, medications to suppress cravings and behavior management, areavailable. Please contact your family physician about programs in your area.Referring Provider: PRIETO WASHINGTON [[id number]]Allergies As of Date: 04/09/2017 Noted Allergy ReactionCIPROFLOXACIN 08/12/2015 4 - HivesCLARITIN (LORATADINE) 12/08/2004 5 - IntoleranceDICYCLOMINE 03/13/2013 14 - Other: See Comments 16 - UnknownE-MYCIN (ERYTHROMYCIN) 12/08/2004 8 - GI Upset 9 - ItchingNAPROXEN 10/14/2007 7 - Swelling Comments: Feet swelled in 2 daysORUVAIL (KETOPROFEN) 12/08/2004 2 - RashRELAFEN (NABUMETONE) 05/24/2007 Comments: swellingstatin [Other] 12/08/2004 5 - Intolerance Comments: joint painDate Reviewed: 04/09/2017Reviewed by: Rachel ([facility]) Jamey - Fully AssessedReason for Visit: Follow Up [171]Primary Visit Diagnosis:ASHD (arteriosclerotic heart disease) [I25.10] Other Visit Diagnosis:Essential hypertension [I10]Order(s):spironolactone (ALDACTONE) 25 mg tabletTake 1 tablet by mouth once daily.Disp: 90 tabletRfl: 3 lovastatin (MEVACOR) 10 mg tabletTake 1 tablet by mouth once daily.Disp: 90 tabletRfl: 3 valsartan (DIOVAN) 320 mg tabletTake 1 tablet by mouth once daily.Disp: 90 tabletRfl: 3 ECG B/O W INTERP (MED OFFICE) [ECG06] Order #: [id number] as of 04/09/2017 Sig: SPIRONOLACTONE 25 MG TABLET Take 1 tablet by mouth once d* LOVASTATIN 10 MG TABLET Take 1 tablet by mouth once d* VALSARTAN 320 MG TABLET Take 1 tablet by mouth once d* MORPHINE ER 30 MG TABLET,EXTE* Take 1 tablet by mouth twice * OMEGA-3 FATTY ACIDS 500 MG CA* Take 1 capsule by mouth once * VITAMIN E 400 UNIT CAPSULE Take 1 capsule by mouth twice* DULOXETINE 30 MG CAPSULE,OSMIN* Take 1 capsule by mouth once * DEXAMETHASONE 0.5 MG/5 ML ORA* Take 5 mL by mouth once daily. FENOFIBRATE 54 MG TABLET TAKE 1 TABLET BY MOUTH EVERY * RANITIDINE 150 MG TABLET TAKE 1 TABLET BY MOUTH TWICE * AMLODIPINE 10 MG TABLET TAKE 1 TABLET DAILY ONETOUCH ULTRA TEST STRIPS TEST GLUCOSE 1 X DAILY, DX: E* MAGNESIUM OXIDE 400 MG TABLET TAKE 1 TABLET BY MOUTH ONCE D* ARAVA ORAL Take by mouth. MORPHINE ER 15 MG TABLET,EXTE* Take 15 mg by mouth every 8 h* FENOFIBRATE 54 MG TABLET Take 1 tablet by mouth once d* FUROSEMIDE 20 MG TABLET TAKE 1 TABLET BY MOUTH ONCE D* METOPROLOL SUCCINATE ER 50 MG* Take 1 tablet by mouth once d* METFORMIN ER 500 MG TABLET,EX* Take 2 tablets by mouth daily* SELENIUM SULFIDE 2.5 % LOTION Apply 1 application to affect* LANCETS 33 GAUGE Test blood sugar(s) 1 daily. * BLOOD-GLUCOSE METER KIT 1 Each as needed. One Touch M* CPAP Replace CPAP equipment: Cpap * ALBUTEROL SULFATE HFA 90 MCG/* Inhale 2 Puffs as instructed * CYANOCOBALAMIN (VIT B-12) 1,0* Take 1,000 mcg by mouth once * GABAPENTIN ORAL Take 300 mg by mouth four javier* MOMETASONE-FORMOTEROL HFA 100* Inhale 2 Puffs as instructed * COMPOUNDED PRESCRIPTION Wheeled Seated Walker. Dx: C* ACETAMINOPHEN 500 MG TABLET Take 500 mg by mouth every 8 * BIOTIN 10 MG TABLET 5000 mg daily * MULTIVITAMIN TABLET Take 1 tablet by mouth once d* * SENOKOT-S 8.6 MG-50 MG TABLET Take one(1) tablet daily as n* * FOLIC ACID 800 MCG TABLET Take one(1) tablet every othe* * ASPIRIN 81 MG TABLET Take one (1) tablet daily . OXYCODONE-ACETAMINOPHEN 7.5 M* Take 1 tablet by mouth every *Problem List As Of Date 04/09/2017 Noted Resolved MYALGIA AND MYOSITIS NOS [[id number]] INVALID FOR* Hypertension goal BP (blood pressure) < 150/90 *INVALID FOR* More... PURE HYPERCHOLESTEROLEM [E78.00] INVALID FOR* More... DYSMETABOLIC SYNDROME X [E88.81] INVALID FOR* Impaired fasting glucose [R73.01] INVALID FOR*09/28/2014 Impaired glucose tolerance test [R73.02] INVALID FOR*09/28/2014 HYPERCALCEMIA [E83.52] INVALID FOR* More... Shortness of breath [R06.02] 01/25/2015 Morbid obesity due to excess calories (HCC) [E6* More... Extrinsic asthma [J45.909] INVALID FOR* FAMILY HX GI MALIGNANCY [Z80.0] More... DIAPHRAGMATIC HERNIA [K44.9] ACUTE GASTRITIS W/O HEMORRHAGE [K29.00] INVALID FOR* LUMBAGO [M54.5] INVALID FOR* RA (Rheumatoid Arthritis) [M06.9] INVALID FOR* More... CKD (Chronic Kidney Disease) Stage 3, GFR 30-59*INVALID FOR* Esophageal reflux [K21.9] INVALID FOR* Abnormal mammogram, unspecified [R92.8] INVALID FOR*06/26/2014 Breast cancer [C50.919] INVALID FOR* Complex renal cyst [N28.1] INVALID FOR* Edema [R60.9] INVALID FOR* BMI 50.0-59.9, adult (HCC) [Z68.43] INVALID FOR*05/06/2016 Diabetes mellitus type 2, controlled, without c*INVALID FOR*01/25/2015 Breast screening, unspecified [Z12.31] INVALID FOR*09/24/2015 Well controlled type 2 diabetes mellitus with p*INVALID FOR* More... Hypomagnesemia [E83.42] INVALID FOR* CHF exacerbation (HCC) [I50.9] INVALID FOR* SHILPA on CPAP [G47.33, Z99.89] INVALID FOR* Hypertriglyceridemia [E78.1] INVALID FOR* More... History of colonic polyps [Z86.010] INVALID FOR*12/02/2015 Family history of colon cancer in mother [Z80.0]INVALID FOR*12/02/2015 Thickened endometrium [R93.8] INVALID FOR* 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 mellitus (HC*INVALID FOR* Other instructions from your clinician: LIFESTYLE CHANGE A healthy lifestyle is the most important component of your overall treatment plan. Please give serious thought to the following areas and commit to making long term care social worker changes. EAT A WHOLE FOOD, PLANT BASED DIET The nutrition your body gets is more important than the medicine you take. What matters most is the overall way you eat. We encourage you to minimize the use of animal products (which include dairy and all meats except fatty fish) and use whole, unprocessed plant foods to provide your protein, vitamins and other nutrients. We have a lot of information to share with you on this topic. We also hold Shared Medical Appointments, where you can come visit with Dr. Washington in the company of other patients and spend over an hour talking about the challenges of changing the way you eat. This is not a "diet". It is a way of life that you will keep with you. EXERCISE REGULARLY It is not important to spend hours in the gym, lifting weights and perspiring heavily. A total of 2-3 hours per week of aerobic (causing you to be moderately short of breath) exercise is sufficient to improve your health. Talk to us before you begin a new exercise program, if you have heart disease or experience shortness of breath or chest pain. REDUCE STRESS Chronic emotional and physical stress leads to disease. Ways of reducing stress include meditation, visualization, prayer, yoga and other forms of relaxation therapy. Consistency is the mae. Find a technique that works for you and do it every day. CULTIVATE RELATIONSHIPS Loneliness and isolation have a major negative impact on health. Seek out others who can love, care for and nurture you. Avoid hurtful relationships. MAINTAIN IDEAL BODY WEIGHT The best way to do this is to do all the things above. Our bodies naturally find the right weight if we keep moving and feed ourselves the right food. If your BMI is greater than 25, we strongly recommend a referral to a weight management program. Please speak to us or your family physician about available programs. AVOID NICOTINE IN ALL FORMS This includes all tobacco products, whether chewed, smoked, vaped, or rubbed on the skin. Smoking cessation programs, which can make use of tobacco substitutes, medications to suppress cravings and behavior management, are available. Please contact your family physician about programs in your area.Prescriptions ordered this encounter Disp Refills Start End SPIRONOLACTONE 25 MG TABLET 90 t* 3 04/09/2017 Route: ORAL Sig: Take 1 tablet by mouth once daily. LOVASTATIN 10 MG TABLET 90 t* 3 04/09/2017 Route: ORAL Sig: Take 1 tablet by mouth once daily. VALSARTAN 320 MG TABLET 90 t* 3 04/09/2017 Route: ORAL Sig: Take 1 tablet by mouth once daily.Medications Discontinued During This Encounter spironolactone (ALDACTONE) 25 mg tab* 06/26/2014 04/09/2017 Class: Med Update Route: ORAL Sig: Take 1 tablet by mouth once daily. Disc: Reason for discontinue is not on file. lovastatin (MEVACOR) 10 mg tablet 90 t* 1 04/09/2017 04/09/2017 Sig: TAKE 1 TABLET DAILY Disc: Reason for discontinue is not on file. valsartan (DIOVAN) 320 mg tablet 90 t* 1 04/09/2017 04/09/2017 Sig: TAKE 1 TABLET DAILY Disc: Reason for discontinue is not on file. Status:Closed by PRIETO WASHINGTON MD on 04/09/17 Normal [facility] PROGRESSon 04-09-2017 PROGRESS HNO ID: [id number] thor: Prieto Moore: (none)Author Type: PhysicianType: Progress NotesFiled: 04/09/2017 1:30 PMNote Text:PERTINENT CARDIAC HISTORYASHD - presumedHTNHLDMOSA - CPAPCHF - diastolicADHERENCE TO GUIDELINESACE-I or ARB for HF with prior LVEF<40 (NQF 0081) - N/AASA or Plavix for ASHD (NQF 0067) - metBeta bjorn for ASHD with prior [place] or prior LVEF<40 (NQF 0070) - N/ABeta bjorn for HF with prior LVEF<40 (NQF 0083) - N/AACE-I or ARB for ASHD with DM or prior LVEF<40 (NQF 0066) - metStatin therapy for ASHD or FHL or DM - metBMI documented and plan if >25 (NQF 0421) - lifestyle recommendation formTobacco use screening and referral (NQF 0028) - lifestyle recommendationformRecommendat ion for whole food, plant based diet - lifestyle recommendationformCLINICAL IMPRESSION/PLAN:Saeid Urbina has evidence of mild volume overload. This has been anissue intermittently and is likely related to diastolic heart failure. Shewas advised to check blood pressures to make sure that they are running navdeep good range at home.In the past, symptoms like this have been associated with urinaryinfection. She denies symptoms at this time, but I have recommended thatshe go to urgent care for evaluationShe's been advised to increase Lasix and Aldactone to twice daily for thenext few days to see if this helps with her sensations. I've asked her tocontact me and let me know of her progress by the end of the week.I will see her in 6 months or as needed.Written and verbal health teaching given to patient, patient verbalizesunderstanding and agrees with treatment plan.This note was generated using [employer] voice recognition system, and theremay be some incorrect words, spellings, and punctuation that were notnoted in checking the note before saving.DIAGNOSIS FOR VISIT:ASHDHypertensionHISTORY OF PRESENT ILLNESSSaeid Urbina returns for follow-up of her presumed coronary disease andhypertension.She did some water aerobics over the winter and tolerated this fairlywell. She has been feeling lethargic over the last week. She's had nosymptoms of localized infection and no fever or chills.She denies chest discomfort. She's had minimal shortness of breath. She'shad slight worsening of her edema. She denies syncope. She's had nopalpitations, TIAs, amaurosis or claudication.ALLERGIES:ALLERG IESAllergen Reactions- Ciprofloxacin Hives- Claritin [Loratadin* Intolerance- Dicyclomine Other: See Comments, Unknown- E-Mycin [Erythromyc* GI Upset, Itching- Naproxen Swelling Feet swelled in 2 days- Oruvail [Ketoprofen] Rash- Relafen [Nabumetone] swelling- Statin [Other] Intolerance joint painCURRENT OUTPATIENT MEDICATIONS:spironolactone (ALDACTONE) 25 mg tablet Take 1 tablet by mouth once daily.lovastatin (MEVACOR) 10 mg tablet Take 1 tablet by mouth once daily.valsartan (DIOVAN) 320 mg tablet Take 1 tablet by mouth once daily.morphine SR (MS CONTIN, ORAMORPH SR) 30 mg 12 hr tablet Take 1 tablet bymouth twice daily.Earliest Fill Date: 03/09/17Omega-3 Fatty Acids (FISH OIL) 500 mg cap Take 1 capsule by mouth oncedaily.alpha tocopheryl acetate (VITAMIN E) 400 unit capsule Take 1 capsule bymouth twice daily.DULoxetine (CYMBALTA) 30 mg capsule Take 1 capsule by mouth once daily.dexamethasone (DECADRON) 0.5 mg/5 mL solution Take 5 mL by mouth oncedaily.Fenofibrate (LOFIBRA) 54 mg tablet TAKE 1 TABLET BY MOUTH EVERY DAYranitidine (ZANTAC) 150 mg tablet TAKE 1 TABLET BY MOUTH TWICE A DAYamLODIPine (NORVASC) 10 mg tablet TAKE 1 TABLET DAILYONETOUCH ULTRA TEST test strip TEST GLUCOSE 1 X DAILY, DX: E11.9, INSULINUSE: NOmagnesium oxide (MAG-OX) 400 mg tablet TAKE 1 TABLET BY MOUTH ONCE DAILY.LEFLUNOMIDE (ARAVA ORAL) Take by mouth.morphine SR (MS CONTIN, ORAMORPH SR) 15 mg 12 hr tablet Take 15 mg bymouth every 8 hours as needed.Fenofibrate (LOFIBRA) 54 mg tablet Take 1 tablet by mouth once daily.furosemide (LASIX) 20 mg tablet TAKE 1 TABLET BY MOUTH ONCE DAILY.metoprolol succinate ER (TOPROL XL) 50 mg 24 hr tablet Take 1 tablet bymouth once daily.metFORMIN ER (GLUCOPHAGE XR) 500 mg 24 hr tablet Take 2 tablets by mouthdaily with breakfast.selenium sulfide 2.5 % lotn Apply 1 application to affected area twicedaily as needed.lancets (ONE TOUCH DELICA) 33 gauge misc Test blood sugar(s) 1 daily. Dx:Type 2 DM - Controlled E11.9 Insulin: NoBlood-Glucose Meter (ONETOUCH ULTRA2) monitoring kit 1 Each as needed. OneTouch Meter Kit Diagnosis: Type 2 DM - Controlled E11.9CPAP Replace CPAP equipment: Cpap @ 11 cm of water without heatedhumidification. New Mask (per patient preference) optional chin strap (ifindicated), head gear, filters, tubing, humidifier and other supplies.Length of need 12 months, or lifetime if able. Dx: G47.33albuterol HFA (PROAIR HFA) 90 mcg/actuation inhaler Inhale 2 Puffs asinstructed every 4 hours as needed for Wheezing/Shortness of Breath(Rescue).cyanocobalamin (VITAMIN B-12) 1,000 mcg tab Take 1,000 mcg by mouth oncedaily.GABAPENTIN ORAL Take 300 mg by mouth four times daily as needed (per Michele).mometasone-formoter ol (DULERA) 100-5 mcg/actuation inhaler Inhale 2 Puffsas instructed twice daily.COMPOUNDED PRESCRIPTION Wheeled Seated Walker. Dx: Chronic back painM54.5, and RA M06.9acetaminophen (TYLENOL EXTRA STRENGTH) 500 mg tablet Take 500 mg by mouthevery 8 hours as needed.Biotin 10 mg Tab 5000 mg dailymultivitamin ORAL tablet Take 1 tablet by mouth once daily.sennosides/docusate sodium(SENOKOT-S 8.6 MG-50 MG TAB) Take one(1) tabletdaily as needed.FOLIC ACID 800 MCG TAB Take one(1) tablet every other dayASPIRIN 81 MG TAB Take one (1) tablet daily .oxyCODONE-acetaminophen (PERCOCET) 7.5-325 mg tablet Take 1 tablet bymouth every 8 hours as needed. iPHYSICAL EXAMINATION:VITAL SIGNS: BP 112/68 Pulse 76 Ht 5' 3" (1.60m) Wt 259 lb 3.2 oz(117.6kg) BMI 45.93 kg/(m2).Chest: Clear to percussion and auscultation. Decreased breath sounds arenoted at the left base. Trachea is midline. Air entry is equal.Cardiac: Regular rhythm. S1 and S2 are normal. PMI is nondisplaced.There is a soft systolic ejection murmur. Carotids are brisk with softbilateral bruits. JVP is less than 10 cm. Abdomen: Soft and nontender.There are no pulsatile masses or bruits. No liver enlargement. Bowelsounds are active. Extremities: Trace edema. Pulses are intact andsymmetrical.EKG shows sinus rhythm. There is poor R-wave progression. There is nosignificant change from 08/11/15.Recent labs were reviewed. Renal function is moderately decreased, butstable. CBC was within normal limits. LDL was 46.Electronically Signed:Prieto Washington, [facility] 2017 11:28 [facility]: YASEMIN CONNORS MD [facility] Vital Signs Date Time Vital Sign Value Performing Clinician Facility 10-13-2024 13:01-0400 Body mass index (BMI) [Ratio] 37.86 kg/m2 Geneva Ramos CASH ANALYST.ADMINISTRATIVE PROCESSOR Work Phone: [facility] 10-13-2024 13:01-0400 Body temperature 98.6 [degF] Geneva Ramos CASH ANALYST.ADMINISTRATIVE PROCESSOR Work Phone: [facility] 10-13-2024 13:01-0400 Body weight 93.9 kg Geneva Ramos CASH ANALYST.ADMINISTRATIVE PROCESSOR Work Phone: [facility] 10-13-2024 13:01-0400 Diastolic blood pressure 80 mm[Hg] Geneva Moralesenter CASH ANALYST.ADMINISTRATIVE PROCESSOR Work Phone: [facility] 10-13-2024 13:01-0400 Heart rate 88 /min Geneva Moralesenter CASH ANALYST.ADMINISTRATIVE PROCESSOR Work Phone: [facility] 10-13-2024 13:01-0400 SaO2% (BldA) [Mass fraction] 96 % Geneva Moralesenter CASH ANALYST.ADMINISTRATIVE PROCESSOR Work Phone: [facility] 10-13-2024 13:01-0400 Systolic blood pressure 127 mm[Hg] Geneva Ramos CASH ANALYST.ADMINISTRATIVE PROCESSOR Work Phone: [facility] 10-09-2024 11:07-0400 Body mass index (BMI) [Ratio] 37.13 kg/m2 Lab[facility] Work Phone: [facility] 10-09-2024 11:07-0400 Body weight 92.08 kg Lab[facility] Work Phone: [facility] 08-21-2024 14:11-0400 Body mass index (BMI) [Ratio] 37.13 kg/m2 Shantell Lorenzana MD Work Phone: [facility] 08-21-2024 14:11-0400 Body weight 92.08 kg Shantell Lorenzana MD Work Phone: [facility] 08-21-2024 14:11-0400 Diastolic blood pressure 74 mm[Hg] Shantell Lorenzana MD Work Phone: [facility] 08-21-2024 14:11-0400 Heart rate 64 /min Shantell Lorenzana MD Work Phone: [facility] 08-21-2024 14:11-0400 Respiratory rate 16 /min Shantell Lorenzana MD Work Phone: [facility] 08-21-2024 14:11-0400 SaO2% (BldA) [Mass fraction] 94 % Shantell Lorenzana MD Work Phone: [facility] 08-21-2024 14:11-0400 Systolic blood pressure 120 mm[Hg] Shantell Lorenzana MD Work Phone: [facility] 06-02-2024 14:13-0400 Diastolic blood pressure 72 mm[Hg] Estefani Older CASH ANALYST.ADMINISTRATIVE PROCESSOR Work Phone: [facility] [facility] Comment on above: BP [facility] 06-02-2024 14:13-0400 Systolic blood pressure 113 mm[Hg] Estefani Older CASH ANALYST.ADMINISTRATIVE PROCESSOR Work Phone: [facility] Comment on above: BP [facility] 04-23-2024 14:32-0400 Body height 157.5 cm Mahin Pérez MD Work Phone: [facility] 04-23-2024 14:32-0400 Body mass index (BMI) [Ratio] 37.68 kg/m2 Mahin Pérez MD Work Phone: [facility] 04-23-2024 14:32-0400 Body temperature 98.91 [degF] Mahin Pérez MD Work Phone: [facility] 04-23-2024 14:32-0400 Body weight 93.44 kg Mahin Pérez MD Work Phone: [facility] 04-23-2024 14:32-0400 Diastolic blood pressure 76 mm[Hg] Mahin Pérez MD Work Phone: [facility] 04-23-2024 14:32-0400 Heart rate 86 /min Mahin Pérez MD Work Phone: [facility] 04-23-2024 14:32-0400 Respiratory rate 14 /min Mahin Pérez MD Work Phone: [facility] 04-23-2024 14:32-0400 SaO2% (BldA) [Mass fraction] 99 % Mahin Pérez MD Work Phone: [facility] 04-23-2024 14:32-0400 Systolic blood pressure 124 mm[Hg] Mahin Pérez MD Work Phone: [facility] 04-08-2024 13:04-0500 Body mass index (BMI) [Ratio] 37.1 kg/m2 Geneva Ramos CASH ANALYST.ADMINISTRATIVE PROCESSOR Work Phone: [facility] 04-08-2024 13:04-0500 Body temperature 98.01 [degF] Geneva Ramos CASH ANALYST.ADMINISTRATIVE PROCESSOR Work Phone: [facility] 04-08-2024 13:04-0500 Body weight 92 kg Geneva Ramos CASH ANALYST.ADMINISTRATIVE PROCESSOR Work Phone: [facility] 04-08-2024 13:04-0500 Diastolic blood pressure 78 mm[Hg] Geneva Ramos CASH ANALYST.ADMINISTRATIVE PROCESSOR Work Phone: [facility] 04-08-2024 13:04-0500 Heart rate 81 /min Geneva Ramos CASH ANALYST.ADMINISTRATIVE PROCESSOR Work Phone: [facility] 04-08-2024 13:04-0500 SaO2% (BldA) [Mass fraction] 98 % Geneva Ramos CASH ANALYST.ADMINISTRATIVE PROCESSOR Work Phone: [facility] 04-08-2024 13:04-0500 Systolic blood pressure 131 mm[Hg] Geneva Ramos CASH ANALYST.ADMINISTRATIVE PROCESSOR Work Phone: [facility] 04-08-2024 12:28-0500 Body mass index (BMI) [Ratio] 37.13 kg/m2 [facility] Work Phone: [facility] 04-08-2024 12:28-0500 Body weight 92.08 kg [facility] Work Phone: [facility] 03-24-2024 15:47-0500 Body mass index (BMI) [Ratio] 37.7 kg/m2 Yasemin Connors MD Work Phone: [facility] 03-24-2024 15:47-0500 Body weight 93.5 kg Yasemin Connors MD Work Phone: [facility] 03-24-2024 15:47-0500 Diastolic blood pressure 79 mm[Hg] Yasemin Connors MD Work Phone: 4(299)874-622577 [place] [address] 03-24-2024 15:47-0500 Heart rate 80 /min Yasemin Connors MD Work Phone: 7(588)101-433877 [place] [address] 03-24-2024 15:47-0500 Respiratory rate 20 /min Yasemin Connors MD Work Phone: 4(777)566-902477 [place] [address] 03-24-2024 15:47-0500 SaO2% (BldA) [Mass fraction] 98 % Yasemin Connors MD Work Phone: 9(389)901-928477 [place] [address] 03-24-2024 15:47-0500 Systolic blood pressure 137 mm[Hg] Yasemin Connors MD Work Phone: 6(878)237-423277 [place] [address] 03-09-2024 15:00-0500 Heart rate 77 /min Dr. Yasemin Connors MD Work Phone: 0(434)703-827941 [place] [address] 03-09-2024 15:00-0500 Respiratory rate 18 /min Dr. Yasemin Connors MD Work Phone: 7(040)029-808398 [place] [address] 03-09-2024 15:00-0500 SaO2% (BldA) [Mass fraction] 97 % Dr. Yasemin Connors MD Work Phone: 6(223)485-651741 [place] [address] 03-09-2024 12:39-0500 Body height 160.[address] Yasemin Connors MD Work Phone: 2(526)414-123998 [place] [address] 03-09-2024 12:39-0500 Body temperature 99.9 [degF] Dr. Yasemin Connors MD Work Phone: 8(356)557-925598 [place] [address] 03-09-2024 12:39-0500 Diastolic blood pressure 74 mm[Hg] Dr. Yasemin Connors MD Work Phone: [facility] 03-09-2024 12:39-0500 Systolic blood pressure 158 mm[Hg] Dr. Yasemin Connors MD Work Phone: [facility] 03-03-2024 14:12-0500 Body mass index (BMI) [Ratio] 38.41 kg/m2 Estefani Older CASH ANALYST.ADMINISTRATIVE PROCESSOR Work Phone: [facility] 03-03-2024 14:12-0500 Body weight 95.25 kg Estefani Older CASH ANALYST.ADMINISTRATIVE PROCESSOR Work Phone: [facility] 03-03-2024 14:12-0500 Diastolic blood pressure 74 mm[Hg] Estefani Older CASH ANALYST.ADMINISTRATIVE PROCESSOR Work Phone: [facility] 03-03-2024 14:12-0500 Heart rate 76 /min Estefani Older CASH ANALYST.ADMINISTRATIVE PROCESSOR Work Phone: [facility] 03-03-2024 14:12-0500 Respiratory rate 16 /min Estefani Older CASH ANALYST.ADMINISTRATIVE PROCESSOR Work Phone: [facility] 03-03-2024 14:12-0500 SaO2% (BldA) [Mass fraction] 95 % Estefani Older CASH ANALYST.ADMINISTRATIVE PROCESSOR Work Phone: [facility] 03-03-2024 14:12-0500 Systolic blood pressure 126 mm[Hg] Estefani Older CASH ANALYST.ADMINISTRATIVE PROCESSOR Work Phone: [facility] 02-14-2024 13:15-0500 Body height 157.5 cm Shantell Lorenzana MD Work Phone: [facility] 02-14-2024 13:15-0500 Body mass index (BMI) [Ratio] 38.04 kg/m2 Shantell Lorenzana MD Work Phone: [facility] 02-14-2024 13:15-0500 Body weight 94.35 kg Shantell Lorenzana MD Work Phone: [facility] 02-14-2024 13:15-0500 Diastolic blood pressure 72 mm[Hg] Shantell Lorenzana MD Work Phone: [facility] 02-14-2024 13:15-0500 Heart rate 69 /min Shantell Lorenzana MD Work Phone: [facility] 02-14-2024 13:15-0500 SaO2% (BldA) [Mass fraction] 96 % Shantell Lorenzana MD Work Phone: [facility] 02-14-2024 13:15-0500 Systolic blood pressure 104 mm[Hg] Shantell Lorenzana MD Work Phone: [facility] 01-23-2024 16:03-0500 Body mass index (BMI) [Ratio] 36.85 kg/m2 Mahin Pérez MD Work Phone: [facility] 01-23-2024 16:03-0500 Body weight 94.35 kg Mahin Pérez MD Work Phone: [facility] 01-23-2024 16:03-0500 Diastolic blood pressure 78 mm[Hg] Mahin Pérez MD Work Phone: [facility] Comment on above: per Intm appt today 01-23-2024 16:03-0500 Heart rate 74 /min Mahin Pérez MD Work Phone: [facility] 01-23-2024 16:03-0500 SaO2% (BldA) [Mass fraction] 96 % Mahin Pérez MD Work Phone: [facility] 01-23-2024 16:03-0500 Systolic blood pressure 136 mm[Hg] Mahin Pérez MD Work Phone: [facility] Comment on above: per Intm appt today 01-23-2024 11:33-0500 Body mass index (BMI) [Ratio] 36.85 kg/m2 Estefani Willard CASH ANALYST.ADMINISTRATIVE PROCESSOR Work Phone: [facility] 01-23-2024 11:33-0500 Body weight 94.35 kg Estefani Older CASH ANALYST.ADMINISTRATIVE PROCESSOR Work Phone: [facility] 01-23-2024 11:33-0500 Diastolic blood pressure 78 mm[Hg] Estefani Older CASH ANALYST.ADMINISTRATIVE PROCESSOR Work Phone: [facility] 01-23-2024 11:33-0500 Heart rate 74 /min Estefani Older CASH ANALYST.ADMINISTRATIVE PROCESSOR Work Phone: [facility] 01-23-2024 11:33-0500 Respiratory rate 16 /min Estefani Older CASH ANALYST.ADMINISTRATIVE PROCESSOR Work Phone: [facility] 01-23-2024 11:33-0500 SaO2% (BldA) [Mass fraction] 96 % Estefani Older CASH ANALYST.ADMINISTRATIVE PROCESSOR Work Phone: [facility] 01-23-2024 11:33-0500 Systolic blood pressure 136 mm[Hg] Estefani Older CASH ANALYST.ADMINISTRATIVE PROCESSOR Work Phone: [facility] 01-17-2024 12:58-0500 Body mass index (BMI) [Ratio] 37.2 kg/m2 Dayan Marek CASH ANALYST.ADMINISTRATIVE PROCESSOR Work Phone: [facility] 01-17-2024 12:58-0500 Body temperature 98.01 [degF] Dayan Marek CASH ANALYST.ADMINISTRATIVE PROCESSOR Work Phone: [facility] 01-17-2024 12:58-0500 Body weight 95.25 kg Dayan Marek CASH ANALYST.ADMINISTRATIVE PROCESSOR Work Phone: [facility] 01-17-2024 12:58-0500 Diastolic blood pressure 82 mm[Hg] Dayan Marek CASH ANALYST.ADMINISTRATIVE PROCESSOR Work Phone: [facility] 01-17-2024 12:58-0500 Heart rate 68 /min Dayan Marek CASH ANALYST.ADMINISTRATIVE PROCESSOR Work Phone: [facility] 01-17-2024 12:58-0500 Respiratory rate 14 /min Dayan Marek CASH ANALYST.ADMINISTRATIVE PROCESSOR Work Phone: [facility] 01-17-2024 12:58-0500 SaO2% (BldA) [Mass fraction] 95 % Dayan Marek CASH ANALYST.ADMINISTRATIVE PROCESSOR Work Phone: [facility] 01-17-2024 12:58-0500 Systolic blood pressure 130 mm[Hg] Dayan Marek CASH ANALYST.ADMINISTRATIVE PROCESSOR Work Phone: [facility] 01-09-2024 10:17-0500 Diastolic blood pressure 78 mm[Hg] Mahin Pérez MD Work Phone: [facility] 01-09-2024 10:17-0500 Heart rate 88 /min Mahin Pérez MD Work Phone: [facility] 01-09-2024 10:17-0500 Respiratory rate 16 /min Mahin Pérez MD Work Phone: [facility] 01-09-2024 10:17-0500 SaO2% (BldA) [Mass fraction] 97 % Mahin Pérez MD Work Phone: [facility] 01-09-2024 10:17-0500 Systolic blood pressure 146 mm[Hg] Mahin Pérez MD Work Phone: [facility] 01-09-2024 08:48-0500 Body mass index (BMI) [Ratio] 38.19 kg/m2 Mahin Pérez MD Work Phone: [facility] 01-09-2024 08:48-0500 Body temperature 98.71 [degF] Mahin Pérez MD Work Phone: [facility] 01-09-2024 08:48-0500 Body weight 97.8 kg Mahin Pérez MD Work Phone: [facility] 11-29-2023 13:19-0400 Body height 160 cm Dayan Marek CASH ANALYST.ADMINISTRATIVE PROCESSOR Work Phone: [facility] 11-29-2023 13:19-0400 Body mass index (BMI) [Ratio] 38.19 kg/m2 Dayan Marek CASH ANALYST.ADMINISTRATIVE PROCESSOR Work Phone: [facility] 11-29-2023 13:19-0400 Body temperature 97.59 [degF] Dayan Marek CASH ANALYST.ADMINISTRATIVE PROCESSOR Work Phone: [facility] 11-29-2023 13:19-0400 Body weight 97.8 kg Dayan Marek CASH ANALYST.ADMINISTRATIVE PROCESSOR Work Phone: [facility] 11-29-2023 13:19-0400 Diastolic blood pressure 83 mm[Hg] Dayan Marek CASH ANALYST.ADMINISTRATIVE PROCESSOR Work Phone: [facility] 11-29-2023 13:19-0400 Heart rate 76 /min Dayan Marek CASH ANALYST.ADMINISTRATIVE PROCESSOR Work Phone: [facility] 11-29-2023 13:19-0400 SaO2% (BldA) [Mass fraction] 98 % Dayan Marek CASH ANALYST.ADMINISTRATIVE PROCESSOR Work Phone: [facility] 11-29-2023 13:19-0400 Systolic blood pressure 132 mm[Hg] Dayan Marek CASH ANALYST.ADMINISTRATIVE PROCESSOR Work Phone: [facility] 10-25-2023 13:00-0400 Body mass index (BMI) [Ratio] 38.44 kg/m2 Estefani Older CASH ANALYST.ADMINISTRATIVE PROCESSOR Work Phone: [facility] 10-25-2023 13:00-0400 Body weight 98.43 kg Estefani Older CASH ANALYST.ADMINISTRATIVE PROCESSOR Work Phone: [facility] 10-25-2023 13:00-0400 Diastolic blood pressure 70 mm[Hg] Estefani Older CASH ANALYST.ADMINISTRATIVE PROCESSOR Work Phone: [facility] 10-25-2023 13:00-0400 Heart rate 68 /min Estefani Older CASH ANALYST.ADMINISTRATIVE PROCESSOR Work Phone: [facility] 10-25-2023 13:00-0400 Respiratory rate 16 /min Estefani Older CASH ANALYST.ADMINISTRATIVE PROCESSOR Work Phone: [facility] 10-25-2023 13:00-0400 SaO2% (BldA) [Mass fraction] 97 % Estefani Older CASH ANALYST.ADMINISTRATIVE PROCESSOR Work Phone: [facility] 10-25-2023 13:00-0400 Systolic blood pressure 122 mm[Hg] Estefani Older CASH ANALYST.ADMINISTRATIVE PROCESSOR Work Phone: [facility] 10-02-2023 13:36-0400 Body mass index (BMI) [Ratio] 38.82 kg/m2 Geneva Ramos APRN.ADMINISTRATIVE PROCESSOR Work Phone: [facility] 10-02-2023 13:36-0400 Body temperature 98.6 [degF] Geneva Ramos CASH ANALYST.ADMINISTRATIVE PROCESSOR Work Phone: [facility] 10-02-2023 13:36-0400 Body weight 99.4 kg Geneva Ramos CASH ANALYST.ADMINISTRATIVE PROCESSOR Work Phone: [facility] 10-02-2023 13:36-0400 Diastolic blood pressure 81 mm[Hg] Geneva Ramos CASH ANALYST.ADMINISTRATIVE PROCESSOR Work Phone: [facility] 10-02-2023 13:36-0400 Heart rate 73 /min Geneva Ramos APRN.ADMINISTRATIVE PROCESSOR Work Phone: [facility] 10-02-2023 13:36-0400 SaO2% (BldA) [Mass fraction] 95 % Geneva Ramos CASH ANALYST.ADMINISTRATIVE PROCESSOR Work Phone: [facility] 10-02-2023 13:36-0400 Systolic blood pressure 124 mm[Hg] Geneva Ramos CASH ANALYST.ADMINISTRATIVE PROCESSOR Work Phone: [facility] 09-21-2023 11:36-0400 Body mass index (BMI) [Ratio] 38.51 kg/m2 Danuta Orantes APRN.ADMINISTRATIVE PROCESSOR Work Phone: [facility] 09-21-2023 11:36-0400 Body weight 98.61 kg Danuta Orantes APRN.ADMINISTRATIVE PROCESSOR Work Phone: [facility] 09-21-2023 11:36-0400 Diastolic blood pressure 70 mm[Hg] Danuta Orantes APRN.ADMINISTRATIVE PROCESSOR Work Phone: [facility] 09-21-2023 11:36-0400 Systolic blood pressure 126 mm[Hg] Danuta Orantes APRN.ADMINISTRATIVE PROCESSOR Work Phone: [facility] 07-27-2023 13:14-0400 Body mass index (BMI) [Ratio] 37.91 kg/m2 Shantell Lorenzana MD Work Phone: [facility] 07-27-2023 13:14-0400 Body weight 97.07 kg Shantell Lorenzana MD Work Phone: [facility] 07-27-2023 13:14-0400 Diastolic blood pressure 82 mm[Hg] Shantell Lorenzana MD Work Phone: [facility] 07-27-2023 13:14-0400 Heart rate 67 /min Shantell Lorenzana MD Work Phone: [facility] 07-27-2023 13:14-0400 Respiratory rate 15 /min Shantell Lorenzana MD Work Phone: [facility] 07-27-2023 13:14-0400 SaO2% (BldA) [Mass fraction] 96 % Shantell Lorenzana MD Work Phone: [facility] 07-27-2023 13:14-0400 Systolic blood pressure 134 mm[Hg] Shantell Lorenzana MD Work Phone: [facility] 07-23-2023 13:21-0400 Body mass index (BMI) [Ratio] 37.91 kg/m2 Estefani Older CASH ANALYST.ADMINISTRATIVE PROCESSOR Work Phone: [facility] 07-23-2023 13:21-0400 Body weight 97.07 kg Estefani Older CASH ANALYST.ADMINISTRATIVE PROCESSOR Work Phone: [facility] 07-23-2023 13:21-0400 Diastolic blood pressure 70 mm[Hg] Estefani Older CASH ANALYST.ADMINISTRATIVE PROCESSOR Work Phone: [facility] 07-23-2023 13:21-0400 Heart rate 72 /min Estefani Older CASH ANALYST.ADMINISTRATIVE PROCESSOR Work Phone: [facility] 07-23-2023 13:21-0400 Respiratory rate 16 /min Estefani Older CASH ANALYST.ADMINISTRATIVE PROCESSOR Work Phone: [facility] 07-23-2023 13:21-0400 SaO2% (BldA) [Mass fraction] 96 % Estefani Older CASH ANALYST.ADMINISTRATIVE PROCESSOR Work Phone: [facility] 07-23-2023 13:21-0400 Systolic blood pressure 132 mm[Hg] Estefani Older CASH ANALYST.ADMINISTRATIVE PROCESSOR Work Phone: [facility] 05-28-2023 13:50-0400 Body mass index (BMI) [Ratio] 37.91 kg/m2 Estefani Older CASH ANALYST.ADMINISTRATIVE PROCESSOR Work Phone: [facility] 05-28-2023 13:50-0400 Body weight 97.07 kg Estefani Older CASH ANALYST.ADMINISTRATIVE PROCESSOR Work Phone: [facility] 05-28-2023 13:50-0400 Diastolic blood pressure 68 mm[Hg] Estefani Older CASH ANALYST.ADMINISTRATIVE PROCESSOR Work Phone: [facility] 05-28-2023 13:50-0400 Heart rate 72 /min Estefani Older CASH ANALYST.ADMINISTRATIVE PROCESSOR Work Phone: [facility] 05-28-2023 13:50-0400 Respiratory rate 16 /min Estefani Older CASH ANALYST.ADMINISTRATIVE PROCESSOR Work Phone: [facility] 05-28-2023 13:50-0400 SaO2% (BldA) [Mass fraction] 96 % Estefani Older CASH ANALYST.ADMINISTRATIVE PROCESSOR Work Phone: [facility] 05-28-2023 13:50-0400 Systolic blood pressure 128 mm[Hg] Estefani Older CASH ANALYST.ADMINISTRATIVE PROCESSOR Work Phone: [facility] 04-06-2023 11:06-0500 Body temperature 98.29 [degF] Geneva Moralesenter CASH ANALYST.ADMINISTRATIVE PROCESSOR Work Phone: [facility] 04-06-2023 11:06-0500 Body weight 97.43 kg Geneva Ramos CASH ANALYST.ADMINISTRATIVE PROCESSOR Work Phone: [facility] 04-06-2023 11:06-0500 Diastolic blood pressure 82 mm[Hg] Geneva Ramos CASH ANALYST.ADMINISTRATIVE PROCESSOR Work Phone: [facility] 04-06-2023 11:06-0500 Heart rate 62 /min [place] Ramos CASH ANALYST.ADMINISTRATIVE PROCESSOR Work Phone: [facility] 04-06-2023 11:06-0500 SaO2% (BldA) [Mass fraction] 95 % Geneva Ramos CASH ANALYST.ADMINISTRATIVE PROCESSOR Work Phone: [facility] 04-06-2023 11:06-0500 Systolic blood pressure 145 mm[Hg] Geneva Ramos CASH ANALYST.ADMINISTRATIVE PROCESSOR Work Phone: [facility] 04-06-2023 10:41-0500 Body weight 97.3 kg [facility] Work Phone: [facility] 01-19-2023 14:34-0500 Body temperature 96.8 [degF] Shantell Lorenzana MD Work Phone: [facility] 01-19-2023 14:34-0500 Body weight 95.53 kg Shantell Lorenzana MD Work Phone: [facility] 01-19-2023 14:34-0500 Diastolic blood pressure 82 mm[Hg] Shantell Lorenzana MD Work Phone: [facility] 01-19-2023 14:34-0500 Heart rate 69 /min Shantell Lorenzana MD Work Phone: [facility] 01-19-2023 14:34-0500 Respiratory rate 16 /min Shantell Lorenzana MD Work Phone: [facility] 01-19-2023 14:34-0500 SaO2% (BldA) [Mass fraction] 96 % Shantell Lorenzana MD Work Phone: [facility] 01-19-2023 14:34-0500 Systolic blood pressure 124 mm[Hg] Shantell Lorenzana MD Work Phone: [facility] 01-12-2023 11:04-0500 Body height 160.[address] Yasemin Connors Work Phone: [facility] 01-12-2023 11:04-0500 Body mass index (BMI) [Ratio] 37.2 kg/m2 Dr. Yasemin Connors Work Phone: [facility] 01-12-2023 11:04-0500 Body weight 95.[address] Yasemin Connors Work Phone: [facility] 01-12-2023 11:04-0500 Diastolic blood pressure 81 mm[Hg] Dr. Yasemin Connors Work Phone: [facility] 01-12-2023 11:04-0500 Heart rate 75 /min Dr. Yasemin Connors Work Phone: [facility] 01-12-2023 11:04-0500 Respiratory rate 22 /min Dr. Yasemin Connors Work Phone: [facility] 01-12-2023 11:04-0500 SaO2% (BldA) [Mass fraction] 98 % Dr. Yasemin Connors Work Phone: [facility] 01-12-2023 11:04-0500 Systolic blood pressure 130 mm[Hg] Dr. Yasemin Connors Work Phone: 2(535)155-0127[address] [place] [address] 12-14-2022 12:10-0500 Diastolic blood pressure 82 mm[Hg] Danuta Orantes APRN.ADMINISTRATIVE PROCESSOR Work Phone: [facility] 12-14-2022 12:10-0500 Heart rate 81 /min Danuta Orantes APRN.ADMINISTRATIVE PROCESSOR Work Phone: [facility] 12-14-2022 12:10-0500 SaO2% (BldA) [Mass fraction] 97 % Danuta Orantes APRN.ADMINISTRATIVE PROCESSOR Work Phone: [facility] 12-14-2022 12:10-0500 Systolic blood pressure 176 mm[Hg] Danuta Orantes APRN.ADMINISTRATIVE PROCESSOR Work Phone: [facility] 12-14-2022 11:41-0500 Body weight 95.71 kg Danuta Orantes APRN.ADMINISTRATIVE PROCESSOR Work Phone: [facility] 12-11-2022 14:23-0500 Body weight 96.16 kg Estefani Willard APRN.ADMINISTRATIVE PROCESSOR Work Phone: [facility] 12-11-2022 14:23-0500 Diastolic blood pressure 78 mm[Hg] Estefani Willard CASH ANALYST.ADMINISTRATIVE PROCESSOR Work Phone: [facility] 12-11-2022 14:23-0500 Heart rate 74 /min Estefani Older CASH ANALYST.ADMINISTRATIVE PROCESSOR Work Phone: [facility] 12-11-2022 14:23-0500 Respiratory rate 16 /min Estefani Older CASH ANALYST.ADMINISTRATIVE PROCESSOR Work Phone: [facility] 12-11-2022 14:23-0500 SaO2% (BldA) [Mass fraction] 96 % Estefani Older CASH ANALYST.ADMINISTRATIVE PROCESSOR Work Phone: [facility] 12-11-2022 14:23-0500 Systolic blood pressure 132 mm[Hg] Estefani Older CASH ANALYST.ADMINISTRATIVE PROCESSOR Work Phone: [facility] 10-05-2022 13:52-0400 Body temperature 98.8 [degF] Geneva Ramos CASH ANALYST.ADMINISTRATIVE PROCESSOR Work Phone: [facility] 10-05-2022 13:52-0400 Body weight 94.8 kg Geneva Ramos CASH ANALYST.ADMINISTRATIVE PROCESSOR Work Phone: [facility] 10-05-2022 13:52-0400 Diastolic blood pressure 76 mm[Hg] Geneva Ramos CASH ANALYST.ADMINISTRATIVE PROCESSOR Work Phone: [facility] 10-05-2022 13:52-0400 Heart rate 61 /min [place] Ramos CASH ANALYST.ADMINISTRATIVE PROCESSOR Work Phone: [facility] 10-05-2022 13:52-0400 SaO2% (BldA) [Mass fraction] 96 % Geneva Ramos CASH ANALYST.ADMINISTRATIVE PROCESSOR Work Phone: [facility] 10-05-2022 13:52-0400 Systolic blood pressure 118 mm[Hg] Geneva Ramos CASH ANALYST.ADMINISTRATIVE PROCESSOR Work Phone: [facility] 09-18-2022 11:43-0400 Body weight 95.71 kg Estefani Older CASH ANALYST.ADMINISTRATIVE PROCESSOR Work Phone: [facility] 09-18-2022 11:43-0400 Diastolic blood pressure 82 mm[Hg] Estefani Older CASH ANALYST.ADMINISTRATIVE PROCESSOR Work Phone: [facility] 09-18-2022 11:43-0400 Heart rate 68 /min Estefani Older CASH ANALYST.ADMINISTRATIVE PROCESSOR Work Phone: [facility] 09-18-2022 11:43-0400 Respiratory rate 16 /min Estefani Older CASH ANALYST.ADMINISTRATIVE PROCESSOR Work Phone: [facility] 09-18-2022 11:43-0400 SaO2% (BldA) [Mass fraction] 97 % Estefani Older CASH ANALYST.ADMINISTRATIVE PROCESSOR Work Phone: [facility] 09-18-2022 11:43-0400 Systolic blood pressure 144 mm[Hg] Estefani Older CASH ANALYST.ADMINISTRATIVE PROCESSOR Work Phone: [facility] 08-04-2022 13:35-0400 Body height 160 cm Mahin Pérez MD Work Phone: [facility] 08-04-2022 13:35-0400 Body temperature 97.5 [degF] Mahin Pérez MD Work Phone: [facility] 08-04-2022 13:35-0400 Body weight 97.07 kg Mahin Pérez MD Work Phone: [facility] 08-04-2022 13:35-0400 Diastolic blood pressure 68 mm[Hg] Mahin Pérez MD Work Phone: [facility] 08-04-2022 13:35-0400 Heart rate 72 /min Mahin Pérez MD Work Phone: [facility] 08-04-2022 13:35-0400 SaO2% (BldA) [Mass fraction] 97 % Mahin Pérez MD Work Phone: [facility] 08-04-2022 13:35-0400 Systolic blood pressure 112 mm[Hg] Mahin Pérez MD Work Phone: [facility] 06-16-2022 14:03-0400 Body height 152.4 cm Yasemin Connors MD Work Phone: [facility] 06-16-2022 14:03-0400 Body temperature 99.5 [degF] Yasemin Connors MD Work Phone: [facility] 06-16-2022 14:03-0400 Body weight 95.71 kg aYsemin Connors MD Work Phone: [facility] 06-16-2022 14:03-0400 Diastolic blood pressure 80 mm[Hg] Yasemin Connors MD Work Phone: [facility] 06-16-2022 14:03-0400 Heart rate 78 /min Yasemin Connors MD Work Phone: [facility] 06-16-2022 14:03-0400 Respiratory rate 14 /min Yasemin Connors MD Work Phone: [facility] 06-16-2022 14:03-0400 SaO2% (BldA) [Mass fraction] 95 % Yasemin Connors MD Work Phone: [facility] 06-16-2022 14:03-0400 Systolic blood pressure 140 mm[Hg] Yasemin Connors MD Work Phone: [facility] 04-28-2022 13:56-0400 Body temperature 98.01 [degF] Paola Deaner PA-C Work Phone: [facility] 04-28-2022 13:56-0400 Body weight 97.52 kg Paola Queener PA-C Work Phone: [facility] 04-28-2022 13:56-0400 Diastolic blood pressure 74 mm[Hg] Paola Deaner PA-C Work Phone: [facility] 04-28-2022 13:56-0400 Heart rate 59 /min Paola Queener PA-C Work Phone: [facility] 04-28-2022 13:56-0400 Respiratory rate 18 /min Paola Queener PA-C Work Phone: [facility] 04-28-2022 13:56-0400 SaO2% (BldA) [Mass fraction] 96 % Paola Queener PA-C Work Phone: [facility] 04-28-2022 13:56-0400 Systolic blood pressure 123 mm[Hg] Paola Gonzáles PA-C Work Phone: [facility] 04-15-2022 11:08-0500 Diastolic blood pressure 74 mm[Hg] [facility] 04-15-2022 11:08-0500 Heart rate 103 /min [facility] 04-15-2022 11:08-0500 Respiratory rate 18 /min [facility] 04-15-2022 11:08-0500 SaO2% (BldA) [Mass fraction] 96 % [facility] 04-15-2022 11:08-0500 Systolic blood pressure 147 mm[Hg] [facility] 04-15-2022 10:21-0500 Body temperature 98.3 [degF] [facility] 04-15-2022 06:17-0500 Body height 152.4 cm [facility] 04-15-2022 06:17-0500 Body mass index (BMI) [Ratio] 40.8 kg/m2 [facility] 04-15-2022 06:17-0500 Body weight 94.8 kg [facility] 04-11-2022 16:01-0500 Body height 152.4 cm Yasemin Connors MD Work Phone: [facility] 04-11-2022 16:01-0500 Body temperature 98.01 [degF] Yasemin Connors MD Work Phone: [facility] 04-11-2022 16:01-0500 Body weight 97.52 kg Yasemin Connors MD Work Phone: [facility] 04-11-2022 16:01-0500 Diastolic blood pressure 60 mm[Hg] Yasemin Connors MD Work Phone: [facility] 04-11-2022 16:01-0500 Heart rate 71 /min Yasemin Connors MD Work Phone: [facility] 04-11-2022 16:01-0500 Respiratory rate 14 /min Yasemin Connors MD Work Phone: [facility] 04-11-2022 16:01-0500 SaO2% (BldA) [Mass fraction] 97 % Yasemin Connors MD Work Phone: [facility] 04-11-2022 16:01-0500 Systolic blood pressure 140 mm[Hg] Yasemin Connors MD Work Phone: [facility] 04-07-2022 13:19-0500 Body height 152.4 cm Yasemin Connors MD Work Phone: [facility] 04-07-2022 13:19-0500 Body temperature 98.29 [degF] Yasemin Connors MD Work Phone: [facility] 04-07-2022 13:19-0500 Body weight 97.07 kg Yasemin Connors MD Work Phone: [facility] 04-07-2022 13:19-0500 Diastolic blood pressure 70 mm[Hg] Yasemin Connors MD Work Phone: [facility] 04-07-2022 13:19-0500 Heart rate 68 /min Yasemin Connors MD Work Phone: [facility] 04-07-2022 13:19-0500 Respiratory rate 14 /min Yasemin Connors MD Work Phone: [facility] 04-07-2022 13:19-0500 SaO2% (BldA) [Mass fraction] 94 % Yasemin Connors MD Work Phone: [facility] 04-07-2022 13:19-0500 Systolic blood pressure 122 mm[Hg] Yasemin Connors MD Work Phone: [facility] 04-03-2022 13:33-0500 Body temperature 98.01 [degF] Geneva Ramos CASH ANALYST.ADMINISTRATIVE PROCESSOR Work Phone: [facility] 04-03-2022 13:33-0500 Body weight 98.43 kg Geneva Ramos CASH ANALYST.ADMINISTRATIVE PROCESSOR Work Phone: [facility] 04-03-2022 13:33-0500 Diastolic blood pressure 61 mm[Hg] Geneva Ramos CASH ANALYST.ADMINISTRATIVE PROCESSOR Work Phone: [facility] 04-03-2022 13:33-0500 Heart rate 59 /min Geneva Ramos CASH ANALYST.ADMINISTRATIVE PROCESSOR Work Phone: [facility] 04-03-2022 13:33-0500 SaO2% (BldA) [Mass fraction] 97 % Geneva Moralesenter CASH ANALYST.ADMINISTRATIVE PROCESSOR Work Phone: [facility] 04-03-2022 13:33-0500 Systolic blood pressure 125 mm[Hg] Genevaaruna Ramos CASH ANALYST.ADMINISTRATIVE PROCESSOR Work Phone: [facility] 04-03-2022 13:18-0500 Body weight 98.43 kg Lab/Port Wstr Work Phone: [facility] 03-03-2022 14:04-0500 Body temperature 98.8 [degF] Skip Christina Jr., MD Work Phone: [facility] 03-03-2022 14:04-0500 Body weight 98.07 kg Skip Christina Jr., MD Work Phone: [facility] 03-03-2022 14:04-0500 Diastolic blood pressure 84 mm[Hg] Skip Christina Jr., MD Work Phone: [facility] 03-03-2022 14:04-0500 Heart rate 64 /min Skip Christina Jr., MD Work Phone: [facility] 03-03-2022 14:04-0500 Respiratory rate 16 /min Skip Christina Jr., MD Work Phone: [facility] 03-03-2022 14:04-0500 SaO2% (BldA) [Mass fraction] 97 % Skip Christina Jr., MD Work Phone: [facility] 03-03-2022 14:04-0500 Systolic blood pressure 132 mm[Hg] Skip Christina Jr., MD Work Phone: [facility] 02-22-2022 19:04-0500 Respiratory rate 18 /min [facility] 02-22-2022 19:04-0500 SaO2% (BldA) [Mass fraction] 99 % [facility] 02-22-2022 16:46-0500 Body height 152.4 cm [facility] 02-22-2022 16:46-0500 Body mass index (BMI) [Ratio] 42 kg/m2 [facility] 02-22-2022 16:46-0500 Body temperature 97.8 [degF] [facility] 02-22-2022 16:46-0500 Body weight 97.52 kg [facility] 02-22-2022 16:46-0500 Diastolic blood pressure 93 mm[Hg] [facility] 02-22-2022 16:46-0500 Heart rate 67 /min [facility] 02-22-2022 16:46-0500 Systolic blood pressure 163 mm[Hg] [facility] 02-21-2022 11:23-0500 Body height 152.4 cm Yasemin Connors MD Work Phone: [facility] 02-21-2022 11:23-0500 Body temperature 99 [degF] Yasemin Connors MD Work Phone: [facility] 02-21-2022 11:23-0500 Body weight 97.52 kg Yasemin Connors MD Work Phone: [facility] 02-21-2022 11:23-0500 Diastolic blood pressure 70 mm[Hg] Yasemin Connors MD Work Phone: [facility] 02-21-2022 11:23-0500 Heart rate 66 /min Yasemin Connors MD Work Phone: [facility] 02-21-2022 11:23-0500 Respiratory rate 16 /min Yasemin Connors MD Work Phone: [facility] 02-21-2022 11:23-0500 SaO2% (BldA) [Mass fraction] 98 % Yasemin Connors MD Work Phone: [facility] 02-21-2022 11:23-0500 Systolic blood pressure 128 mm[Hg] Yasemin Connors MD Work Phone: [facility] 01-16-2022 10:31-0500 Diastolic blood pressure 78 mm[Hg] Shantell Lorenzana MD Work Phone: [facility] 01-16-2022 10:31-0500 Systolic blood pressure 128 mm[Hg] Shantell Lorenzana MD Work Phone: [facility] 01-16-2022 10:11-0500 Body height 152.4 cm Pulm Wstr Work Phone: [facility] 01-16-2022 10:11-0500 Body weight 98.43 kg Pulm Wstr Work Phone: [facility] 01-16-2022 10:11-0500 Heart rate 68 /min Pulm Wstr Work Phone: [facility] 01-16-2022 10:11-0500 Respiratory rate 14 /min Pulm Wstr Work Phone: [facility] 01-16-2022 10:11-0500 SaO2% (BldA) [Mass fraction] 95 % Pulm Wstr Work Phone: [facility] 12-09-2021 14:37-0400 Body height 157.5 cm Yasemin Connors MD Work Phone: [facility] 12-09-2021 14:37-0400 Body temperature 97.39 [degF] Yasemin Connors MD Work Phone: [facility] 12-09-2021 14:37-0400 Body weight 99.34 kg Yasemin Connors MD Work Phone: [facility] 12-09-2021 14:37-0400 Diastolic blood pressure 70 mm[Hg] Yasemin Connors MD Work Phone: [facility] 12-09-2021 14:37-0400 Heart rate 64 /min Yasemin Connors MD Work Phone: [facility] 12-09-2021 14:37-0400 Respiratory rate 16 /min Yasemin Connors MD Work Phone: [facility] 12-09-2021 14:37-0400 SaO2% (BldA) [Mass fraction] 97 % Yasemin Connors MD Work Phone: [facility] 12-09-2021 14:37-0400 Systolic blood pressure 110 mm[Hg] Yasemin Connors MD Work Phone: [facility] 12-01-2021 11:06-0400 Body temperature 97.81 [degF] Geneva Ramos CASH ANALYST.ADMINISTRATIVE PROCESSOR Work Phone: [facility] 12-01-2021 11:06-0400 Body weight 100.7 kg Geneva Ramos CASH ANALYST.ADMINISTRATIVE PROCESSOR Work Phone: [facility] 12-01-2021 10:52-0400 Body weight 100.7 kg Lab/Port Wstr Work Phone: [facility] 09-06-2021 13:51-0400 Body height 157.5 cm Yasemin Connors MD Work Phone: [facility] 09-06-2021 13:51-0400 Body temperature 98.71 [degF] Yasemin Connors MD Work Phone: [facility] 09-06-2021 13:51-0400 Body weight 98.88 kg Yasemin Cononrs MD Work Phone: [facility] 09-06-2021 13:51-0400 Diastolic blood pressure 60 mm[Hg] Yasemin Connors MD Work Phone: [facility] 09-06-2021 13:51-0400 Heart rate 64 /min Yasemin Connors MD Work Phone: [facility] 09-06-2021 13:51-0400 Respiratory rate 18 /min Yasemin Connors MD Work Phone: [facility] 09-06-2021 13:51-0400 SaO2% (BldA) [Mass fraction] 96 % Yasemin Connors MD Work Phone: [facility] 09-06-2021 13:51-0400 Systolic blood pressure 118 mm[Hg] Yasemin Connors MD Work Phone: [facility] 06-21-2021 10:15-0400 Diastolic blood pressure 72 mm[Hg] Mahin Pérez MD Work Phone: [facility] 06-21-2021 10:15-0400 Heart rate 91 /min Mahin Pérez MD Work Phone: [facility] 06-21-2021 10:15-0400 Respiratory rate 16 /min Mahin Pérez MD Work Phone: [facility] 06-21-2021 10:15-0400 SaO2% (BldA) [Mass fraction] 93 % Mahin Pérez MD Work Phone: [facility] 06-21-2021 10:15-0400 Systolic blood pressure 157 mm[Hg] Mahin Pérez MD Work Phone: [facility] 06-21-2021 08:28-0400 Body temperature 98.91 [degF] Mahin Pérez MD Work Phone: [facility] 06-06-2021 11:38-0400 Body height 157.5 cm Yasemin Connors MD Work Phone: [facility] 06-06-2021 11:38-0400 Body temperature 98.8 [degF] Yasemin Connors MD Work Phone: [facility] 06-06-2021 11:38-0400 Body weight 97.07 kg Yasemin Connors MD Work Phone: [facility] 06-06-2021 11:38-0400 Diastolic blood pressure 68 mm[Hg] Yasemin Connors MD Work Phone: [facility] 06-06-2021 11:38-0400 Heart rate 64 /min Yasemin Connors MD Work Phone: [facility] 06-06-2021 11:38-0400 Respiratory rate 18 /min Yasemin Connors MD Work Phone: [facility] 06-06-2021 11:38-0400 SaO2% (BldA) [Mass fraction] 98 % Yasemin Connors MD Work Phone: [facility] 06-06-2021 11:38-0400 Systolic blood pressure 134 mm[Hg] Yasemin Connors MD Work Phone: [facility] Encounters Encounter Date Encounter Type Care Provider Facility Start: 10-13-2024 End: 10-13-2024 Follow-up encounter Geneva Moralesjoyce MARIN.ADMINISTRATIVE PROCESSOR Work Phone: Hematology/Oncology Comment on above: Encounter for follow -up surveillance of colon cancer (Primary Dx); Metastases to the liver (HCC); S/P Laparoscopic Liver ablation; Status post right hemicolectomy; Cancer of transverse colon (HCC) Start: 10-13-2024 End: 10-13-2024 Patient encounter procedure Geneva Ramos CASH ANALYST.ADMINISTRATIVE PROCESSOR Work Phone: Hematology/Oncology Start: 10-13-2024 End: 10-13-2024 ambulatory GENEVA FRIENDSHIP Facility:[facility] Start: 10-09-2024 End: 10-09-2024 ambulatory Lab/Port [facility] Work Phone: Hematology/Oncology Comment on above: Cancer of transverse colon (HCC); Metastases to the liver (HCC) Start: 09-25-2024 End: 09-25-2024 ambulatory [facility]emin Connors MD [facility] [place] Start: 09-25-2024 End: 09-25-2024 Patient encounter procedure Yasemin Connors MD Work Phone: [facility] Comment on above: Population Health Na vigation Outreach ([employer] [place]/) Start: 08-21-2024 End: 08-21-2024 Patient encounter procedure Shantell Lorenzana MD Work Phone: Pulmonary Medicine Comment on above: COPD, mild (HCC) (Pr imary Dx); Class 2 obesity; Lung nodule Start: 08-21-2024 End: 08-21-2024 ambulatory YASEMIN CONNORS Facility:[facility] Start: 08-09-2024 End: 08-14-2024 Refill Yasemin Connors MD Work Phone: [facility] [place] Comment on above: Refill Request Start: 07-18-2024 End: 09-17-2024 Follow-up encounter Estefani Willard APRN.CNP Work Phone: [facility] [place] Start: 07-16-2024 End: 07-16-2024 ambulatory [facility] Facility:[facility] Start: 07-16-2024 End: 07-16-2024 Subsequent hospital visit by physician Ary [facility] (I-Stat) Work Phone: Cat Scan Comment on above: 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] Start: 07-16-2024 End: 07-16-2024 ambulatory Lab/Port [facility] Work Phone: Hematology/Oncology Comment on above: Cancer of transverse colon (HCC) (Primary Dx); Metastases to the liver (HCC); Type 2 diabetes mellitus with diabetic neuropathy, with long-term current use of insulin (HCC) Start: 07-07-2024 End: 07-07-[address] Yasemin Connors MD Work Phone: [facility] Work Phone: Start: 07-07-2024 End: 07-07-2024 Patient encounter procedure ESTEFANI WILLARD FITTER TACKER-C -[facility] [place] Work Phone: Start: 07-07-2024 End: 07-07-2024 ambulatory ESTEFANI WILLARD Facility:[facility] Start: 07-02-2024 End: 07-02-2024 Telephone encounter Patricia Deluca Work Phone: Podiatry Start: 06-02-2024 End: 06-02-2024 Office outpatient visit 25 minutes Estefani Willard APRN.CNP Work Phone: [facility] [place] Comment on above: Primary hypertension (Primary Dx); Chronic diastolic CHF (congestive heart failure) (HCC); Type 2 diabetes mellitus with diabetic neuropathy, with long-term current use of insulin (HCC); Rheumatoid arthritis involving multiple sites, unspecified whether rheumatoid factor present (HCC) Start: 06-02-2024 End: 06-02-2024 ambulatory YASEMIN CONNORS Facility:[facility] Start: 05-26-2024 End: 05-26-[address] Yasemin Connors MD Work Phone: [facility] Work Phone: Start: 05-26-2024 End: 05-26-[address] Cesilia Brown MD -Laboratory Work Phone: Start: 05-26-2024 End: 05-26-2024 ambulatory Cesilia Brown Facility:[facility] Start: 05-20-2024 End: 05-21-2024 Refill Yasemin Connors MD Work Phone: [facility] [place] Comment on above: Refill Request Start: 04-23-2024 End: 04-23-2024 [facility] Start: 04-23-2024 End: 04-23-2024 Patient encounter procedure Mahin Pérez MD Work Phone: General Surgery Comment on above: History of breast ca ncer in female (Primary Dx); Breast screening Start: 04-09-2024 End: 06-09-2024 Follow-up encounter Geneva Ramos APRN.ADMINISTRATIVE PROCESSOR Work Phone: Hematology/Oncology Start: 04-09-2024 End: 04-09-2024 Telephone encounter Geneva Ramos APRN.ADMINISTRATIVE PROCESSOR Work Phone: Hematology/Oncology Start: 04-08-2024 End: 04-08-2024 Patient encounter procedure Geneva Ramos APRN.ADMINISTRATIVE PROCESSOR Work Phone: Hematology/Oncology Start: 04-08-2024 End: 04-08-2024 ambulatory Lab/Port [facility] Work Phone: Hematology/Oncology Comment on above: Cancer of transverse colon (HCC); Metastases to the liver (HCC) Cancer of transverse colon (HCC) (Primary Dx); Metastases to the liver (HCC) Start: 04-04-2024 End: 04-04-2024 Telephone encounter Adina Roa RN Mammography Comment on above: Results Start: 04-03-2024 End: 04-03-2024 [facility]ulatory [facility] Facility[facility] Start: 04-03-2024 End: 04-03-2024 Subsequent hospital visit by physician Procedure Mammo Main Mammography Comment on above: Abnormal finding on radiology exam [R93.89] Start: 03-31-2024 End: 03-31-2024 Telephone encounter Yasemin Connors MD Work Phone: Internal Medicine [place] Comment on above: Patient Question Start: 03-24-2024 End: 03-24-2024 [facility] Facility:[facility] Start: 03-24-2024 End: 03-24-2024 Office outpatient visit 25 minutes Yasemin Connors MD Work Phone: Internal Medicine [place] Comment on above: C. difficile diarrhe a (Primary Dx); Type 2 diabetes mellitus with stage 3b chronic kidney disease, with long-term current use of insulin (HCC); Hypertension goal BP (blood pressure) < 150/90; Stage 3 chronic kidney disease, unspecified whether stage 3a or 3b CKD (HCC); Chronic diastolic CHF (congestive heart failure) (HCC) Start: 03-10-2024 End: 03-10-2024 Telephone encounter Yasemin Connors MD Work Phone: [address] [place] [address] Comment on above: Patient Question Start: 03-09-2024 End: 03-09-2024 Emergency department patient visit Dr. Luis Angel Haynes DO -Emergency Department Work Phone: Start: 03-03-2024 End: 03-03-2024 Patient encounter procedure Estefani Willard APRN.CNP Work Phone: [facility] [place] Comment on above: Type 2 diabetes su itus with diabetic neuropathy, with long- term current use of insulin (HCC) (Primary Dx); Elevated liver enzymes Start: 03-03-2024 End: 03-03-2024 [facility] Facility:[facility] Start: 02-14-2024 End: 02-14-2024 Patient encounter procedure Shantell Lorenzana MD Work Phone: Pulmonary Medicine Comment on above: COPD, mild (HCC) (Pr imary Dx); Pulmonary nodules; Class 2 obesity Start: 02-14-2024 End: 02-14-2024 [facility]ulatory [facility] Start: 02-01-2024 End: 02-15-2024 Telephone encounter Mahin Pérez MD Work Phone: General Surgery Comment on above: Patient Question Start: 01-31-2024 End: 01-31-2024 Telephone encounter Maureen Clifton MD Work Phone: Mammography Comment on above: Mammogram Result Bam l Back (Right Breast Stereo Bx Prone 1 site per ws) Start: 01-29-2024 End: 01-29-2024 Orders Only Maureen Clifton MD Work Phone: Mammography Comment on above: Abnormal finding on radiology exam (Primary Dx) Radio Imaging Study Comments Start: 01-25-2024 End: 02-11-2024 Telephone encounter Mahin Pérez MD Work Phone: General Surgery Start: 01-23-2024 End: 01-23-2024 Patient encounter procedure Mahin Pérez MD Work Phone: General Surgery Comment on above: History of breast ca ncer (Primary Dx); Metastases to the liver (HCC); Cancer of transverse colon (HCC) Start: 01-23-2024 End: 01-23-2024 ambulatory DANUTA ORANTES Facility:[facility] Start: 01-23-2024 End: 01-23-2024 ambulatory [facility] Start: 01-23-2024 End: 01-23-2024 Patient encounter procedure Estefani Willard APRN.CNP Work Phone: [facility] [place] Comment on above: Elevated AST (SGOT) (Primary Dx); 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); Hypertension goal BP (blood pressure) < 150/90; Stage 3 chronic kidney disease, unspecified whether stage 3a or 3b CKD (HCC); Left arm numbness Start: 01-19-2024 End: 01-23-2024 Refill Yasemin Connors MD Work Phone: [address] [place] [address] Comment on above: Refill Request Start: 01-17-2024 End: 01-17-2024 ambulatory [facility] Facility:[facility] Start: 01-17-2024 End: 01-17-2024 Patient encounter procedure Dayan Silverman CASH ANALYST.ADMINISTRATIVE PROCESSOR Work Phone: General Surgery Comment on above: Chronic gastritis wi thout bleeding, unspecified gastritis type (Primary Dx) Start: 01-16-2024 End: 01-18-2024 Telephone encounter Yasemin Connors MD Work Phone: [facility] [place] Start: 01-15-2024 End: 01-15-2024 ambulatory [facility] Start: 01-15-2024 End: 01-15-2024 [facility] Work Phone: Rad[facility] Start: 01-15-2024 End: 01-15-2024 ambulatory [facility] Facility:[facility] Start: 01-09-2024 End: 01-09-2024 ambulatory [facility] Start: 01-09-2024 End: 01-09-2024 Subsequent hospital visit by physician Mahin Pérez MD Work Phone: Ambulatory Surgery Comment on above: Nausea [R11.0] Start: 01-07-2024 End: 01-07-2024 ambulatory Lab/Port [facility] Work Phone: Hematology/Oncology Comment on above: Cancer of transverse colon (HCC) Start: 01-07-2024 End: 01-07-2024 Subsequent hospital visit by physician [facility] (I-Stat) Work Phone: Cat Scan Comment on above: 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] Start: 01-04-2024 End: 01-04-2024 Emergency department patient visit [facility] Facility:[facility] Start: 01-01-2024 End: 01-01-2024 ambulatory [facility] Facility:[facility] Start: 12-27-2023 End: 09-16-2024 Telephone encounter Yasemin Connors MD Work Phone: Internal Medicine [place] Start: 12-18-2023 End: 12-18-2023 ambulatory PATRICIA DELUCA Facility:[facility] Start: 12-18-2023 End: 12-19-2023 Patient encounter procedure Patricia Riveraaditya Work Phone: Podiatry Comment on above: Type 2 diabetes su itus with diabetic neuropathy, with long- term current use of insulin (HCC) (Primary Dx); Arthritis of both feet; Venous insufficiency Refill Request Start: 11-29-2023 End: 11-29-2023 Patient encounter procedure Dayan Silverman APRN.ADMINISTRATIVE PROCESSOR Work Phone: General Surgery Comment on above: Nausea (Primary Dx); Change in bowel habits; History of colon cancer Start: 11-21-2023 End: 11-21-2023 Telephone encounter Ashlyn Siddiqui MD Work Phone: Mammography Comment on above: Mammogram Result Bam l Back Start: 11-05-2023 End: 11-05-2023 Refill Yasemin Connors MD Work Phone: [facility] [place] Comment on above: Refill Request Start: 10-30-2023 End: 10-31-2023 Refill Yasemin Connors MD Work Phone: Internal Medicine [place] Comment on above: Refill Request Start: 10-25-2023 End: 10-25-2023 Patient encounter procedure Estefani Willard APRN.ADMINISTRATIVE PROCESSOR Work Phone: Internal Medicine [place] Comment on above: Medicare annual well ness visit, subsequent (Primary Dx); Encounter for immunization; Screening for depression; Encounter for screening examination for other mental health and behavioral disorders Start: 10-17-2023 End: 10-17-2023 ambulatory Yasemin Connors Facility:[facility] Start: 10-12-2023 End: 10-15-2023 ambulatory María Elena Lan RN Work Phone: Senior Climate Advisor Management Comment on above: Community Monitoring Outreach Start: 10-02-2023 End: 10-02-2023 Patient encounter procedure Geneva Ramos APRN.ADMINISTRATIVE PROCESSOR Work Phone: Hematology/Oncology Start: 10-02-2023 End: 10-02-2023 ambulatory Lab/Port [facility] Work Phone: Hematology/Oncology Comment on above: Cancer of transverse colon (HCC); Lung nodules; Metastases to the liver (HCC) Cancer of transverse colon (HCC) (Primary Dx); Lung nodules; Metastases to the liver (HCC) Start: 09-21-2023 End: 09-21-2023 Patient encounter procedure Danuta Orantes APRN.ADMINISTRATIVE PROCESSOR Work Phone: OB/Gynecology Comment on above: Vaginal pain (Primar y Dx); Continuous leakage of urine; Constipation, unspecified constipation type Start: 08-17-2023 Telephone encounter Yasemin johnston MD Work Phone: Internal Medicine [place] Comment on above: Referral Request Start: 08-01-2023 End: 08-01-2023 ambulatory [facility] Facility:[facility] Start: 07-27-2023 End: 07-27-2023 Patient encounter procedure Shantell Lorenzana MD Work Phone: Pulmonary Medicine Comment on above: COPD, mild (HCC) (Pr imary Dx); Pulmonary nodules; Class 2 obesity Start: 07-26-2023 Telephone encounter Estefani Willard APRN.ADMINISTRATIVE PROCESSOR Work Phone: Internal Medicine [place] Comment on above: Results Start: 07-23-2023 End: 07-23-2023 Patient encounter procedure Estefani Willard APRN.ADMINISTRATIVE PROCESSOR Work Phone: Internal Medicine [place] Comment on above: Lower abdominal pain (Primary Dx); RLS (restless legs syndrome); Function kidney decreased Start: 07-16-2023 Refill Yasemin Ontiveros Work Phone: Internal Medicine [place] Comment on above: Refill Request Start: 07-11-2023 End: 07-11-2023 Subsequent hospital visit by physician [facility] Mob 1 Work Phone: Radiology Start: 07-06-2023 End: 07-06-2023 ambulatory Lab/[place] [facility] Work Phone: Hematology/Oncology Comment on above: Cancer of transverse colon (HCC); Lung nodules; Metastases to the liver (HCC) Start: 07-06-2023 End: 07-06-2023 Subsequent hospital visit by physician [facility] Cat Scan Comment on above: 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] Start: 06-12-2023 Documentation procedure Mammog carolyn Coordinator [facility] Department Start: 06-12-2023 Letter encounter Mammography Coordinator [facility] Department Start: 06-12-2023 End: 06-12-2023 Subsequent hospital visit by physician Screen Mammo [facility] Mammogram Comment on above: Encounter for screen ing mammogram for malignant neoplasm of breast [Z12.31] Start: 06-07-2023 End: 06-07-2023 ambulatory [facility] Work Phone: Start: 06-07-2023 End: 06-07-2023 Discharged Recurring [facility] Work Phone: Start: 05-30-2023 Telephone encounter Estefani Willard APRN.CNP Work Phone: Internal Medicine [place] Comment on above: Results Start: 05-28-2023 End: 05-28-2023 Patient encounter procedure Estefani Willard APRN.CNP Work Phone: Internal Medicine [place] Comment on above: RLS (restless legs s yndrome) (Primary Dx); History of iron deficiency; 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); Primary hypertension; Bilateral lower extremity edema; Hypomagnesemia; Vitamin B12 deficiency; Vitamin D deficiency Start: 05-21-2023 Telephone encounter Danuta kim APRN.CNP Work Phone: OB/Gynecology Comment on above: Orders Start: 05-07-2023 Telephone encounter Geneva cook APRN.ADMINISTRATIVE PROCESSOR Work Phone: Hematology/Oncology Comment on above: Blood Draw (CVAD) Start: 05-07-2023 End: 05-07-2023 ambulatory Lab/[place] [facility] Work Phone: Hematology/Oncology Comment on above: 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) (Primary Dx); Cancer of transverse colon (HCC) Start: 04-06-2023 End: 04-06-2023 Patient encounter procedure Geneva Ramos APRN.CNP Work Phone: [facility] Start: 04-06-2023 End: 04-06-2023 ambulatory Geneva Ramos APRN.ADMINISTRATIVE PROCESSOR Work Phone: Hematology/Oncology Comment on above: Cancer of transverse colon (HCC) (Primary Dx); Lung nodules; Metastases to the liver (HCC) Cancer of transverse colon (HCC) (Primary Dx); 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); Metastases to the liver (HCC); Lung nodules Start: 03-30-2023 End: 03-30-2023 ambulatory Lab/[place] [facility] Work Phone: Hematology/Oncology Comment on above: Cancer of transverse colon (HCC) (Primary Dx) Start: 03-30-2023 End: 03-30-2023 Subsequent hospital visit by physician Ary [facility] ([facility]) Work Phone: Cat Scan Comment on above: Lung nodules [R91.8] Start: 03-29-2023 Refill Estefani BargerADMINISTRATIVE PROCESSOR Work Phone: Internal Medicine [place] Comment on above: Refill Request Start: 03-07-2023 End: 03-07-[address] Yasemin Connors Work Phone: [facility] Work Phone: Start: 03-07-2023 End: 03-07-[address] Yasemin Connors Work Phone: [facility] Work Phone: Start: 02-21-2023 Telephone encounter Ansley licea APRN.ADMINISTRATIVE PROCESSOR Work Phone: OB/Gynecology Comment on above: Results Start: 02-02-2023 End: 02-02-[address] Yasemin Connors Work Phone: [facility] Work Phone: Start: 02-02-2023 End: 02-02-[address] Yasemin Connors Work Phone: [facility] Work Phone: Start: 01-19-2023 End: 01-19-2023 Patient encounter procedure Shantell Lorenzana MD Work Phone: Pulmonary Medicine Comment on above: COPD, mild (HCC) (Pr imary Dx); Lung nodules; History of colon cancer Start: 01-12-2023 End: 01-12-[address] Yasemin Connors Work Phone: [facility] Work Phone: Start: 01-10-2023 Telephone encounter Geneva cook APRN.ADMINISTRATIVE PROCESSOR Work Phone: Hematology/Oncology Start: 01-04-2023 End: 01-04-2023 ambulatory Lab/[facility] [place] Work Phone: Hematology/Oncology Comment on above: Malignant neoplasm o f transverse colon (HCC); Metastases to the liver (HCC); Lung nodules Start: 01-04-2023 End: 01-04-2023 Subsequent hospital visit by physician [facility] ([facility]) Work Phone: Cat Scan Comment on above: Malignant neoplasm o f transverse colon (HCC) [C18.4] Start: 12-19-2022 Telephone encounter Danuta kim APRN.ADMINISTRATIVE PROCESSOR Work Phone: OB/Gynecology Start: 12-15-2022 End: 12-15-2022 Subsequent hospital visit by physician [facility] Mob 1 Work Phone: Radiology Comment on above: Vaginal discharge [N 89.8] Start: 12-14-2022 End: 12-14-2022 Patient encounter procedure Danuta Orantes APRN.ADMINISTRATIVE PROCESSOR Work Phone: OB/Gynecology Comment on above: PMB (postmenopausal bleeding) (Primary Dx); Vaginal discharge; Hematuria, unspecified type Start: 12-11-2022 End: 12-11-2022 Patient encounter procedure Estefani Willard APRN.ADMINISTRATIVE PROCESSOR Work Phone: Internal Medicine [place] Comment on above: Type 2 diabetes su itus with stage 3a chronic kidney disease, with long-term current use of insulin (HCC) (Primary Dx); Hematuria, unspecified type; Vaginal discharge; Vagina bleeding; 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); Lipid screening; Hypomagnesemia; Need for influenza vaccination Start: 12-08-2022 End: 12-08-2022 Patient encounter procedure Patricia Deluca Work Phone: Podiatry Comment on above: Type 2 diabetes su itus with diabetic neuropathy, with long- term current use of insulin (HCC) (Primary Dx); Arthritis of foot Start: 11-30-2022 End: 11-30-2022 ambulatory Lab/[place] [facility] Work Phone: Hematology/Oncology Comment on above: Malignant neoplasm o f transverse colon (HCC) (Primary Dx) Start: 10-07-2022 Telephone encounter Yasemin johnston MD Work Phone: Internal Medicine [place] Comment on above: Results Start: 10-06-2022 Telephone encounter Yasemin johnston MD Work Phone: Internal Medicine [place] Comment on above: Patient Update Care Coordination (F ollow Up Note ) Start: 10-05-2022 End: 10-05-2022 Patient encounter procedure Geneva Ramos APRN.ADMINISTRATIVE PROCESSOR [facility] Start: 10-05-2022 End: 10-05-2022 ambulatory Lab/[place] [facility] Work Phone: Hematology/Oncology Comment on above: Malignant neoplasm o f transverse colon (HCC); Metastases to the liver (HCC); Lung nodules Malignant neoplasm o f transverse colon (HCC) (Primary Dx); Metastases to the liver (HCC); Lung nodules Start: 09-22-2022 ambulatory Yasemin Ontiveros Work Phone: Internal Medicine [place] Comment on above: Allergic Reaction Start: 09-21-2022 Telephone encounter Yasemin johnston MD Work Phone: Internal Medicine [place] Comment on above: urine results Start: 09-18-2022 End: 09-18-2022 Patient encounter procedure Estefani Willard APRN.ADMINISTRATIVE PROCESSOR Work Phone: Internal Medicine [place] Comment on above: 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) (Primary Dx); 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); Hematuria, unspecified type; Stage 3 chronic kidney disease, unspecified whether stage 3a or 3b CKD (HCC) Start: 08-17-2022 Telephone encounter Vi Smart PA-C Work Phone: Pulmonary Medicine Comment on above: Patient Assistance Start: 08-09-2022 Telephone encounter Deb Ramirez Comment on above: Patient Assistance Start: 08-04-2022 End: 08-04-2022 Patient encounter procedure Mahin Pérez MD Work Phone: General Surgery Comment on above: Epiploic appendagiti s (Primary Dx); Epigastric pain Start: 07-28-2022 Telephone encounter Estefani Willard APRN.ADMINISTRATIVE PROCESSOR Work Phone: Family Medicine [place] Comment on above: UTI Start: 07-25-2022 Telephone encounter Mahin Pérez MD Work Phone: General Surgery Comment on above: Request Outside [facility] Start: 07-07-2022 Orders Only Patricia burgess Work Phone: Podiatry Comment on above: Diabetic mononeuropa thy associated with diabetes mellitus due to underlying condition (HCC) (Primary Dx); Pes planus of both feet Start: 07-06-2022 Telephone encounter Patricia Holland Work Phone: Podiatry Comment on above: Orders (DM shoes) Start: 06-16-2022 End: 06-16-2022 Patient encounter procedure Yasemin Connors MD Work Phone: Internal Medicine [place] Comment on above: 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) (Primary Dx); Hypertension goal BP (blood pressure) < 150/90; Rash; Stage 3 chronic kidney disease, unspecified whether stage 3a or 3b CKD (HCC); Hypercalcemia Start: 06-12-2022 Documentation procedure Mammog carolyn Coordinator [facility] Start: 06-12-2022 Letter encounter Mammography Coordinator [facility] Department Start: 06-09-2022 ambulatory Iban Bradley RN NURSE SUPERVISOR [employer] Comment on above: Mouth/Lip Problem; R pantera Start: 06-09-2022 End: 06-09-2022 Patient encounter procedure Ollie Johnson MD Work Phone: Internal Medicine [place] Comment on above: Thrush (Primary Dx); Localized dermatitis Start: 05-30-2022 End: 05-30-2022 ambulatory Lab/[place] [facility] Work Phone: Hematology/Oncology Comment on above: Malignant neoplasm o f transverse colon (HCC) (Primary Dx) Start: 05-09-2022 Refill Shantell Lorenzana MD Work Phone: Pulmonary Medicine Comment on above: Refill Request Start: 05-08-2022 Refill Estefani Wlilard APRN .ADMINISTRATIVE PROCESSOR Work Phone: Internal Medicine [place] Comment on above: Refill Request Start: 05-04-2022 Telephone encounter Jerry davis DO Work Phone: Hematology/Oncology Comment on above: Patient Question Start: 05-02-2022 End: 05-02-2022 ambulatory Lab/[place] [facility] Work Phone: Hematology/Oncology Comment on above: Malignant neoplasm o f transverse colon (HCC) (Primary Dx) Start: 04-28-2022 End: 04-28-2022 Patient encounter procedure Paola Gonzáles PA-C Work Phone: Neurology Comment on above: Left abducens nerve palsy (Primary Dx) Start: 04-27-2022 Telephone encounter Lisa MELLO Hematology/Oncology Comment on above: Social Work Services Start: 04-19-2022 Refill Yasemin Ontiveros Work Phone: Internal Medicine [place] Comment on above: Refill Request Start: 04-17-2022 Refill Estefani Willard APRN .ADMINISTRATIVE PROCESSOR Work Phone: Internal Medicine [place] Comment on above: Refill Request Start: 04-17-2022 Telephone encounter Yasemin johnston MD Work Phone: Internal Medicine [place] Comment on above: C-dif pt update Start: 04-15-2022 End: 04-15-2022 Emergency department patient visit [facility] Start: 04-14-2022 End: 04-14-2022 ambulatory [facility] Work Phone: Start: 04-14-2022 End: 04-14-2022 Patient encounter procedure [facility]Neurology Start: 04-11-2022 End: 04-11-2022 Patient encounter procedure Yasemin Connors MD Work Phone: Internal Medicine [place] Comment on above: Double vision (Prima ry Dx); Nonintractable headache, unspecified chronicity pattern, unspecified headache type; Hospital discharge follow-up; Rheumatoid arthritis involving multiple sites, unspecified whether rheumatoid factor present (HCC); 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); Chronic diastolic CHF (congestive heart failure) (HCC) Start: 04-10-2022 Patient Outreach Janki Gutierrez RN Work Phone: Senior Climate Advisor Management Comment on above: Transition Of Care ( D/c [place] on 04/09/22 Initial TCM outreach) Start: 04-07-2022 End: 04-09-2022 ambulatory [facility] Start: 04-07-2022 End: 04-07-2022 Patient encounter procedure Yasemin Connors MD Work Phone: Internal Medicine [place] Comment on above: Double vision (Prima ry Dx); Dizziness; Vertigo; Intractable headache, unspecified chronicity pattern, unspecified headache type; Thunderclap headache; H/O colon cancer, stage IV Start: 04-03-2022 End: 04-03-2022 Patient encounter procedure Geneva Ramos APRN.ADMINISTRATIVE PROCESSOR Work Phone: [facility] Start: 04-03-2022 End: 04-03-2022 ambulatory Lab/[place] [facility] Work Phone: Hematology/Oncology Comment on above: Cancer of transverse colon (HCC) (Primary Dx); Malignant neoplasm of transverse colon (HCC); Metastases to the liver (HCC); Lung nodules Malignant neoplasm o f transverse colon (HCC) (Primary Dx); Metastases to the liver (HCC); Lung nodules Start: 03-31-2022 Refill Yasemin Ontiveros Work Phone: Internal Medicine [place] Comment on above: Refill Request Start: 03-03-2022 End: 03-03-2022 Patient encounter procedure Skip Christina MD Work Phone: Neurology Comment on above: UARS (upper airway r esistance syndrome) (Primary Dx); History of obstructive sleep apnea; Class 3 severe obesity with body mass index (BMI) of 40.0 to 44.9 in adult, unspecified obesity type, unspecified whether serious comorbidity present (HCC) Start: 02-28-2022 End: 02-28-2022 ambulatory [facility] Work Phone: Start: 02-28-2022 End: 02-28-2022 [facility] Start: 02-22-2022 End: 02-22-2022 Emergency department patient visit [facility] Start: 02-21-2022 End: 02-21-2022 Patient encounter procedure Yasemin Connors MD Work Phone: Internal Medicine [place] Comment on above: Burning tongue (Prim kamilah Dx); Optic papillitis of both eyes; Vitamin B12 deficiency; Vitamin D deficiency; 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) Start: 02-15-2022 End: 02-15-2022 ambulatory [facility] [place] [facility] Work Phone: Hematology/Oncology Comment on above: Malignant neoplasm o f transverse colon (HCC) (Primary Dx) Start: 01-16-2022 End: 01-16-2022 ambulatory [facility] Work Phone: PULM LAB [facility] Comment on above: Spirometry Refill Request Start: 01-16-2022 End: 01-16-2022 Patient encounter procedure Pulm Lab [facility] Work Phone: [facility] Comment on above: Lung nodule (Primary Dx); COPD, mild (HCC); Morbid obesity (HCC) Start: 12-19-2021 Refill Yasemin Ontiveros Work Phone: [facility] Comment on above: Refill Request Start: 12-15-2021 Telephone encounter Skip Christina MD Work Phone: Neurology Comment on above: Results Start: 12-15-2021 End: 12-15-2021 ambulatory Lab/[place] [facility] Work Phone: Hematology/Oncology Comment on above: Malignant neoplasm o f transverse colon (HCC) (Primary Dx) Start: 12-13-2021 Refill Yasemin Ontiveros Work Phone: Internal Medicine [place] Comment on above: Refill Request Start: 12-09-2021 End: 12-09-2021 Patient encounter procedure Yasemin Connors MD Work Phone: Internal Medicine [place] Comment on above: 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) (Primary Dx); Need for influenza vaccination; 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); SHILPA on CPAP; Hypertension goal BP (blood pressure) < 150/90 Start: 12-08-2021 End: 12-08-2021 Patient encounter procedure Patricia Deluca Work Phone: Podiatry Comment on above: Diabetic mononeuropa thy associated with diabetes mellitus due to underlying condition (HCC) (Primary Dx); Pes planus of both feet Start: 12-01-2021 Telephone encounter Geneva cook APRN.ADMINISTRATIVE PROCESSOR Work Phone: Hematology/Oncology Comment on above: prior authorization Start: 12-01-2021 End: 12-01-2021 Patient encounter procedure Geneva Ramos APRN.ADMINISTRATIVE PROCESSOR Work Phone: [place] [facility] Start: 12-01-2021 End: 12-01-2021 ambulatory Lab/[place] [facility] Work Phone: Hematology/Oncology Comment on above: Malignant neoplasm o f transverse colon (HCC) (Primary Dx); Type 2 diabetes mellitus with stage 3 chronic kidney disease, with long-term current use of insulin (HCC); Secondary malignant neoplasm of chest wall (HCC); Metastases to the liver (HCC); Lung nodules Malignant neoplasm o f transverse colon (HCC) (Primary Dx); Metastases to the liver (HCC); Lung nodules Start: 11-29-2021 Telephone encounter Skip Christina MD Work Phone: Neurology Comment on above: Results Start: 11-22-2021 ambulatory Yasemin Ontiveros Work Phone: Internal Medicine [facility] Start: 11-14-2021 Telephone encounter Yasemin johnston MD Work Phone: Internal Medicine [place] Comment on above: Results Start: 11-11-2021 End: 11-11-2021 Patient encounter procedure [facility] Start: 11-04-2021 Telephone encounter Yasemin johnston MD Work Phone: Internal Medicine [place] Comment on above: Letter Start: 10-31-2021 Telephone encounter Skip Christina MD Work Phone: Neurology Comment on above: Orders (Pap Titratio n order and information) Start: 10-27-2021 Telephone encounter Jerry davis DO Work Phone: Hematology/Oncology Comment on above: Letter Start: 10-18-2021 End: 10-18-2021 ambulatory Lab/[place] [facility] Work Phone: Hematology/Oncology Comment on above: Cancer of transverse colon (HCC) (Primary Dx) Start: 10-13-2021 End: 10-13-2021 Patient encounter procedure Vi Smart PA-C Work Phone: Pulmonary Medicine Comment on above: 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) (Primary Dx); SHILPA (obstructive sleep apnea); Lung nodule Start: 09-22-2021 Refill Jerry Holley Work Phone: Hematology/Oncology Comment on above: Refill Request Start: 09-20-2021 End: 09-20-2021 ambulatory Lab/[place] [facility] Work Phone: Hematology/Oncology Comment on above: Cancer of transverse colon (HCC) (Primary Dx) Start: 09-12-2021 Refill Geneva carrizales APRN.ADMINISTRATIVE PROCESSOR Work Phone: Hematology/Oncology Comment on above: Refill Request Start: 09-06-2021 End: 09-06-2021 Patient encounter procedure Yasemin Connors MD Work Phone: Internal Medicine [place] Comment on above: Arthritis of knee (P rimary Dx); Type 2 diabetes mellitus with diabetic neuropathy, with long-term current use of insulin (HCC); Hypertension goal BP (blood pressure) < 150/90; Stage 3 chronic kidney disease, unspecified whether stage 3a or 3b CKD (HCC) Start: 09-02-2021 End: 09-02-2021 Patient encounter procedure [facility] Start: 08-23-2021 End: 08-23-2021 ambulatory Lab/[place] [facility] Work Phone: Hematology/Oncology Comment on above: Cancer of transverse colon (HCC) (Primary Dx) Start: 07-26-2021 End: 07-26-2021 Subsequent hospital visit by physician [facility] ([facility]) Work Phone: Cat Scan Comment on above: Secondary malignant neoplasm of chest wall (HCC) [C79.89] Start: 07-25-2021 Orders Only Jerry Holley Work Phone: Hematology/Oncology Comment on above: Cancer of transverse colon (HCC) (Primary Dx); Metastases to the liver (HCC); Lung nodules; Secondary malignant neoplasm of chest wall (HCC) Start: 07-20-2021 Refill Melvin GRIGGSADMINISTRATIVE PROCESSOR Work Phone: Internal Medicine [place] Comment on above: Refill Request Start: 07-20-2021 Refill Yasemin Ontiveros Work Phone: Internal Medicine [place] Comment on above: Prescription Refills Start: 06-21-2021 End: 06-21-2021 Subsequent hospital visit by physician Mahin Pérez MD Work Phone: Ambulatory Surgery Comment on above: Personal history of colon cancer [Z85.038] Start: 06-17-2021 Telephone encounter Mahin Pérez MD Work Phone: General Surgery Comment on above: Patient Question Start: 06-16-2021 Refill Geneva carrizales APRN.ADMINISTRATIVE PROCESSOR Work Phone: Hematology/Oncology Comment on above: Refill Request Start: 06-15-2021 End: 06-15-2021 Patient encounter procedure [facility] Start: 06-06-2021 End: 06-06-2021 Patient encounter procedure Yasemin Connors MD Work Phone: Internal Medicine [place] Comment on above: Type 2 diabetes su itus with diabetic neuropathy, with long- term current use of insulin (HCC) (Primary Dx); Bilateral lower extremity edema; Hypertension goal BP (blood pressure) < 150/90; COPD (chronic obstructive pulmonary disease) with chronic bronchitis (HCC); Sleep apnea, obstructive; Stage 3 chronic kidney disease, unspecified whether stage 3a or 3b CKD (HCC); Chronic diastolic CHF (congestive heart failure) (HCC); Type 2 diabetes mellitus with stage 3b chronic kidney disease, with long-term current use of insulin (HCC) Start: 06-04-2021 End: 06-04-2021 Patient encounter procedure [facility] Start: 06-02-2021 Documentation procedure Mammog carolyn Coordinator [facility] Start: 06-02-2021 Letter encounter Mammography Coordinator [facility] Department Start: 06-01-2021 End: 06-01-2021 Subsequent hospital visit by physician Screen Mammo [facility] Mammogram Comment on above: Visit for screening mammogram [Z12.31] Start: 06-01-2021 End: 06-01-2021 ambulatory Lab/[place] [facility] Work Phone: Hematology/Oncology Comment on above: Cancer of transverse colon (HCC) (Primary Dx) Start: 05-27-2021 Orders Only Yasemin Ontiveros Work Phone: [facility] Comment on above: Visit for screening mammogram (Primary Dx) Start: 05-04-2021 End: 05-04-2021 ambulatory Lab/[place] [facility] Work Phone: Hematology/Oncology Comment on above: Cancer of transverse colon (HCC) (Primary Dx) Start: 04-06-2021 Telephone encounter Mahin Pérez MD Work Phone: General Surgery Comment on above: 06-21-2021 Colon [facility] Start: 03-08-2021 End: 03-08-2021 Patient encounter procedure [facility] Start: 04-09-2017 End: 04-09-2017 Ambulatory PRIETO TAYLORFER [facility] Procedures Date Procedure Procedure Detail Performing Clinician Start: 10-09-2024 Basic metabolic panel calcium total [place] Ramos CASH ANALYST.ADMINISTRATIVE PROCESSOR Work Phone: Start: 10-09-2024 Hepatic function panel Geneva Ramos CASH ANALYST.ADMINISTRATIVE PROCESSOR Work Phone: Start: 07-16-2024 CREATININE BLD [place] Ramos CASH ANALYST.ADMINISTRATIVE PROCESSOR Work Phone: Start: 05-26-2024 Methadone measurement, urine Dr. Yasemin Connors MD Work Phone: Start: 05-26-[address] Yasemin Connors MD Work Phone: Comment on above: Performed at: [address] Director: Herman Goodwin PhD, Phone: [phone] Start: 04-08-2024 Basic metabolic panel calcium total [place] Ramos CASH ANALYST.ADMINISTRATIVE PROCESSOR Work Phone: Start: 04-08-2024 Hepatic function panel Geneva Ramos CASH ANALYST.ADMINISTRATIVE PROCESSOR Work Phone: Start: 04-03-2024 Bx breast w/device 1st lesion stereotactic guid Maureen Clifton MD Work Phone: Start: 03-09-[address] Errol Connors MD Work Phone: Start: 01-15-2024 Digital breast tomosynthesis unilateral Ashlyn Siddiqui MD Work Phone: Start: 01-09-2024 Gluc bld gluc mntr dev cleared fda spec home use Mahin Pérez MD Work Phone: Start: 01-09-2024 Colonoscopy flx dx w/collj spec when pfrmd Dayan Silverman CASH ANALYST.ADMINISTRATIVE PROCESSOR Work Phone: Start: 01-09-2024 Esophagogastroduodenoscopy transoral diagnostic Dayan Silverman CASH ANALYST.ADMINISTRATIVE PROCESSOR Work Phone: Start: 01-09-2024 Gluc bld gluc mntr dev cleared fda spec home use Mahin Pérez MD Work Phone: Start: 01-09-2024 Colonoscopy Mahin Pérez MD Work Phone: Start: 01-07-2024 CREATININE BLD Geneva Ramos CASH ANALYST.ADMINISTRATIVE PROCESSOR Work Phone: Start: 10-25-2023 Adult depression screening assessment Estefani Willard CASH ANALYST.ADMINISTRATIVE PROCESSOR Work Phone: Start: 10-02-2023 Basic metabolic panel calcium total [place] Ramos CASH ANALYST.ADMINISTRATIVE PROCESSOR Work Phone: Start: 10-02-2023 Hepatic function panel [place] Ramos CASH ANALYST.ADMINISTRATIVE PROCESSOR Work Phone: Start: 07-23-2023 Urnls dip stick/tablet rgnt auto w/o microscopy Estefani Willard CASH ANALYST.ADMINISTRATIVE PROCESSOR Work Phone: Start: 07-11-2023 Digital breast tomosynthesis unilateral Danuta Orantes CASH ANALYST.ADMINISTRATIVE PROCESSOR Work Phone: Start: 07-06-2023 CREATININE BLD Geneva Ramos CASH ANALYST.ADMINISTRATIVE PROCESSOR Work Phone: Start: 06-12-2023 Screening digital breast tomosynthesis bi Danuta Orantes CASH ANALYST.ADMINISTRATIVE PROCESSOR Work Phone: Start: 04-06-2023 Basic metabolic panel calcium total Geneva Ramos CASH ANALYST.ADMINISTRATIVE PROCESSOR Work Phone: Start: 04-06-2023 Hepatic function panel Geneva Ramos CASH ANALYST.ADMINISTRATIVE PROCESSOR Work Phone: Start: 01-04-2023 CREATININE BLD Geneva Ramos CASH ANALYST.ADMINISTRATIVE PROCESSOR Work Phone: Start: 12-11-2022 INFLUENZA VACCINE, PRSV FREE, AGE 65+ YR, HIGH DOSE, QUADRIVALENT (FLUZONE HIGH-DOSE) Estefani Older CASH ANALYST.ADMINISTRATIVE PROCESSOR Work Phone: Start: 10-05-2022 Basic metabolic panel calcium total [place] Ramos CASH ANALYST.ADMINISTRATIVE PROCESSOR Work Phone: Start: 10-05-2022 Hepatic function panel [place] Ramos CASH ANALYST.ADMINISTRATIVE PROCESSOR Work Phone: Start: 09-18-2022 Urnls dip stick/tablet reagent auto microscopy Estefani Older CASH ANALYST.ADMINISTRATIVE PROCESSOR Work Phone: Start: 09-18-2022 Urnls dip stick/tablet rgnt auto w/o microscopy Estefani Older CASH ANALYST.ADMINISTRATIVE PROCESSOR Work Phone: Start: 06-09-2022 Mammography Mammography Coordinator Start: 04-03-2022 Basic metabolic panel calcium total Geneva Ramos CASH ANALYST.ADMINISTRATIVE PROCESSOR Work Phone: Start: 04-03-2022 HEPATIC FUNCTION PNL Geneva Ramos CASH ANALYST.ADMINISTRATIVE PROCESSOR Work Phone: Start: 02-22-2022 CT of head without contrast Start: 01-16-2022 Spmtry w/vc expiratory roque w/wo mxml vol vntj Vi Smart PA-C Work Phone: Start: 12-09-2021 Hemoglobin A1c/Hemoglobin.total in Blood Yasemin Connors MD Work Phone: Start: 12-09-2021 INFLUENZA SEASONAL QUADRIVALENT HIGH DOSE AGE 65+ Yasemin Connors MD Work Phone: Start: 12-01-2021 Basic metabolic panel calcium total Geneva Ramos CASH ANALYST.ADMINISTRATIVE PROCESSOR Work Phone: Start: 12-01-2021 HEPATIC FUNCTION PNL Geneva Moralesenter CASH ANALYST.ADMINISTRATIVE PROCESSOR Work Phone: Start: 09-06-2021 Hemoglobin A1c/Hemoglobin.total in Blood Yasemin Connors MD Work Phone: Start: 07-26-2021 Ct abdomen & pelvis w/contrast material Jerry A Masci DO Work Phone: Start: 07-26-2021 Ct thorax w/contrast material Jerry Rosenthal Essence davis DO Work Phone: Start: 06-21-2021 Esophagogastroduodenoscopy transoral diagnostic Mahin Pérez MD Work Phone: Start: 06-21-2021 Colon ca scrn not hi rsk ind Mahin espinoza MD Work Phone: Start: 06-21-2021 Colonoscopy Mahin Pérez MD Work Phone: Start: 06-06-2021 Hemoglobin A1c/Hemoglobin.total in Blood Yasemin Connors MD Work Phone: Start: 06-01-2021 End: 06-01-2021 Mammography Yasemin Connors MD Work Phone: Start: 03-30-2021 Adult depression screening assessment Lab/Port Wstr Work Phone: Start: 05-21-2020 Mammography Lab/Port Wstr Work Phone: Start: 01-16-2020 Colonoscopy Lab/Port Wstr Work Phone: Clostridium difficile detection Enteric Bacteriology Lactoferrin measurement Plan of Treatment Date Care Activity Detail Author Start: 01-08-2027 Screening for malignant neoplasm of colon [facility] Start: 06-21-2026 Colonoscopy COLONOSCOPY [facility] Start: 06-21-2026 COLORECTAL CANCER SCREENING COLORECTAL CANCER SCREENING [facility] Start: 10-09-2025 Creatinine measurement Serum Creatinine [facility] Start: 07-22-2025 Glaucoma screening Dilated Retinal Exam [facility] Start: 07-16-2025 Creatinine measurement Serum Creatinine [facility] Start: 06-02-2025 Annual PCP Team Chronic Disease Visit Annual PCP Team Chronic Disease Visit [facility] Start: 06-02-2025 BP Controlled (<130/80) BP Controlled (<130/80) [facility] in Start: 04-23-2025 BP Controlled (<130/80) BP Controlled (<130/80) [facility] in Start: 04-13-2025 End: 04-13-2025 ambulatory Hematology/Oncology Comment on above: CBC/BMP/LFT's/CEA 6 MO OV Start: 04-08-2025 Creatinine measurement Serum Creatinine [facility] Start: 03-24-2025 Annual PCP Team Chronic Disease Visit Annual PCP Team Chronic Disease Visit [facility] Start: 03-03-2025 Annual PCP Team Chronic Disease Visit Annual PCP Team Chronic Disease Visit [facility] Start: 03-03-2025 BP Controlled (<130/80) BP Controlled (<130/80) [facility] Start: 03-03-2025 Hepatitis B screening Urine Albumin:Creatinine Ratio [facility] Start: 03-03-2025 RSV Vaccine (1 - 1-dose 75+ series) RSV Vaccine (1 - 1-dose 75+ series) [facility] Comment on above: Postponed from 12/21/2023 (Declined at t his time) Start: 02-23-2025 End: 02-23-2025 Patient encounter procedure 02/23/2025 2:15 PM EST Office Visit Pulmonary Medicine [address] [place], [place] [id number] Shantell Lorenzana MD [address] [place] [address] 6 mo f/up Pulmonary Medicine Comment on above: 6 mo f/up Start: 02-16-2025 End: 05-23-2025 DBT Breast - bilateral screening TRENT SCREENING W FLY Radiology Routine History of breast cancer in female Breast screening Expected: 02/16/2025, Expires: 05/23/2025 [facility] Work Phone: Comment on above: Expected: 02/16/2025, Expires: Start: 02-16-2025 End: 02-16-2025 Patient encounter procedure 02/16/2025 12:30 PM EST Appointment Mammogram [address] [place] [phone] History of breast cancer in female [Z85.3]; Breast screening [Z12.39] Mammogram Comment on above: History of breast cancer in female [Z85. 3]; Breast screening [Z12.39] Start: 02-13-2025 BP Controlled (<130/80) BP Controlled (<130/80) [facility]ic Start: 01-22-2025 Annual PCP Team Chronic Disease Visit Annual PCP Team Chronic Disease Visit [facility] Start: 01-22-2025 Creatinine measurement Serum Creatinine [facility] Start: 01-15-2025 Colonoscopy COLONOSCOPY [facility] Start: 01-15-2025 COLORECTAL CANCER SCREENING COLORECTAL CANCER SCREENING [facility] Start: 01-15-2025 Hemoglobin A1c measurement HbA1C [facility] Start: 01-13-2025 End: 01-13-2025 Patient encounter procedure Cat Scan Comment on above: Encounter for follow-up surveillance of colon cancer [Z08, Z85.038]; Metastases to the liver (HCC) [C78.7]; S/P laparoscopic surgery [Z98.890]; Status post right hemicolectomy [Z90.49]; 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] Start: 01-13-2025 End: 01-13-2025 ambulatory 01/13/2025 11:45 AM [facility] Hematology/Oncology [address] [place] [address] Wstr, Lab/Port [facility] [address] [place] [address] CEA/PORT FLUSH/ACCESS FOR IMAGING* Hematology/Oncology Comment on above: CEA/PORT FLUSH/ACCESS FOR IMAGING* Start: 01-12-2025 End: 11-12-2025 CT Abdomen and Pelvis W contrast IV CT ABD/PEL W IVCON Radiology Routine Encounter for follow-up surveillance of colon cancer Metastases to the liver (HCC) S/P Laparoscopic Liver ablation Status post right hemicolectomy Cancer of transverse colon (HCC) Expected: 01/12/2025 (Approximate), Expires: 11/12/2025 [facility] Work Phone: Comment on above: Expected: 01/12/2025 (Approximate), Expi res: 11/12/2025 Start: 01-12-2025 End: 11-12-2025 CT Chest W contrast IV CT CHEST W IVCON Radiology Routine Encounter for follow-up surveillance of colon cancer Metastases to the liver (HCC) S/P Laparoscopic Liver ablation Status post right hemicolectomy Cancer of transverse colon (HCC) Expected: 01/12/2025 (Approximate), Expires: 11/12/2025 [facility] Comment on above: Expected: 01/12/2025 (Approximate), Expi res: 11/12/2025 Start: 01-06-2025 Creatinine measurement Serum Creatinine [facility] Start: 12-22-2024 End: 12-22-2024 Patient encounter procedure [facility] [place] Comment on above: 6 Month F/U 6 Month F/U *HCC & C are Gap Closure* Start: 12-18-2024 End: 12-18-2024 Patient encounter procedure Podiatry Comment on above: 1 year follow up Start: 12-17-2024 Diabetic foot examination Diabetic Foot Exam [facility] Start: 10-24-2024 Annual PCP Team Chronic Disease Visit Annual PCP Team Chronic Disease Visit [facility] Start: 10-24-2024 Anxiety Screening Anxiety Screening [facility] Start: 10-24-2024 BP Controlled (<130/80) BP Controlled (<130/80) [facility] Start: 10-24-2024 Covid-19 Vaccine () Covid-19 Vaccine () [facility] Comment on above: Postponed from 10/07/2023 (Declined at t his time) Start: 10-24-2024 Covid-19 Vaccine () Covid-19 Vaccine () [facility] Comment on above: Postponed from 10/07/2023 (Declined at t his time) Start: 10-24-2024 Depression Screening Depression Screening [facility] Start: 10-13-2024 End: 10-13-2024 ambulatory 10/13/2024 1:00 PM EDT Visit (SP) Office Hematology/Oncology [address] [place] [phone] Geneva Ramos APRN.ADMINISTRATIVE PROCESSOR [address] [place] [phone] 6 MO OV Hematology/Oncology Comment on above: 6 MO OV Start: 10-09-2024 End: 10-09-2024 ambulatory Hematology/Oncology Comment on above: CBC/BMP/LFT's/CEA OV TODAY* 6 MO OV Start: 10-06-2024 Influenza [facility] Start: 10-01-2024 Complete blood count Hemoglobin/Hematocrit [facility] Start: 10-01-2024 Creatinine measurement Serum Creatinine [facility] Start: 09-20-2024 BP Controlled (<130/80) BP Controlled (<130/80) [facility] Start: 08-21-2024 End: 08-21-2024 Patient encounter procedure 08/21/2024 2:15 PM EDT Office Visit Pulmonary Medicine [address] [place], [place] [id number] Shantell Lorenzana MD [address] [place] [address] 6 mo f/up Pulmonary Medicine Comment on above: 6 mo f/up Start: 08-09-2024 Creatinine measurement Serum Creatinine [facility] Start: 08-09-2024 Hepatitis B surface antibody level LDL Cholesterol [facility] Start: 07-23-2024 Hemoglobin A1c measurement HbA1C [facility] Start: 07-22-2024 Annual PCP Team Chronic Disease Visit Annual PCP Team Chronic Disease Visit [facility] Start: 07-19-2024 Complete blood count Hemoglobin/Hematocrit [facility] Start: 07-19-2024 Creatinine measurement Serum Creatinine [facility] Start: 07-16-2024 End: 07-16-2024 Patient encounter procedure Cat Scan Comment on above: 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] ; Metastases to the liver (HCC) [C78.7] Start: 07-16-2024 End: 07-16-2024 ambulatory 07/16/2024 1:00 PM EDT Results Only [place] [facility] [address] [place] [address] CEA [facility] Comment on above: CEA Start: 07-09-2024 End: 10-08-2024 CREATININE BLD CREATININE BLD Lab Routine Cancer of transverse colon (HCC) Metastases to the liver (HCC) Expected: 07/09/2024 (Approximate), Expires: 10/08/2024 [facility] Comment on above: Expected: 07/09/2024 (Approximate), Expi res: 10/08/2024 Start: 07-09-2024 End: 05-08-2025 CT Abdomen and Pelvis W contrast IV CT ABD/PEL W IVCON Radiology Routine Cancer of transverse colon (HCC) Metastases to the liver (HCC) Expected: 07/09/2024 (Approximate), Expires: 05/08/2025 [facility] Work Phone: Comment on above: Expected: 07/09/2024 (Approximate), Expi res: 05/08/2025 Start: 07-09-2024 End: 05-08-2025 CT Chest W contrast IV CT CHEST W IVCON Radiology Routine Cancer of transverse colon (HCC) Metastases to the liver (HCC) Expected: 07/09/2024 (Approximate), Expires: 05/08/2025 [facility] Comment on above: Expected: 07/09/2024 (Approximate), Expi res: 05/08/2025 Start: 07-05-2024 Creatinine measurement Serum Creatinine [facility] Start: 06-21-2024 Colonoscopy COLONOSCOPY [facility] Start: 06-21-2024 COLORECTAL CANCER SCREENING COLORECTAL CANCER SCREENING [facility] Start: 06-21-2024 Screening for malignant neoplasm of colon [facility] Start: 06-11-2024 Screening for malignant neoplasm of breast Mammogram Screening [facility] Start: 06-02-2024 End: 09-01-2024 Hemoglobin A1c in Blood HEMOGLOBIN A1C Lab Routine Type 2 diabetes mellitus with diabetic neuropathy, with long-term current use of insulin (HCC) Expected: 06/02/2024, Expires: 09/01/2024 [facility] Work Phone: Comment on above: Expected: 06/02/2024, Expires: Start: 06-02-2024 End: 06-02-2024 Patient encounter procedure 06/02/2024 1:40 PM EDT Office Visit Internal [facility] [place] [address] [place], [place] [address] Estefani Willard APRN.ADMINISTRATIVE PROCESSOR [address] [place], [place] [phone] 3 month follow up [facility] [place] Comment on above: 3 month follow up Start: 05-27-2024 Annual PCP Team Chronic Disease Visit Annual PCP Team Chronic Disease Visit [facility] Start: 05-27-2024 BP Controlled (<130/80) BP Controlled (<130/80) [facility] Start: 04-24-2024 End: 04-24-2024 Patient encounter procedure 04/24/2024 11:20 AM EDT Office Visit Internal Medicine [place] [address] [place] [address] Estefani Willard APRN.ADMINISTRATIVE PROCESSOR [address] [facility] [address] 6 month follow up [facility] [place] Comment on above: 6 month follow up Start: 04-23-2024 End: 04-23-2024 Patient encounter procedure 04/23/2024 2:30 PM EDT Office Visit General Surgery [address] [place] [address] Mahin Pérez MD [address] [facility] [address] follow up stereo biopsy General Surgery Comment on above: follow up stereo biopsy Start: 04-08-2024 End: 04-08-2024 ambulatory 04/08/2024 1:00 PM EST Visit (SP) Office Hematology/Oncology [address] [place] [address] [place] Ramos APRN.ADMINISTRATIVE PROCESSOR [address] [place] [address] 6 MO OV(PORT)LAB EARLY* Hematology/Oncology Comment on above: 6 MO OV(PORT)LAB EARLY* Start: 04-05-2024 Creatinine measurement Serum Creatinine [facility] Start: 04-05-2024 Hepatitis B surface antibody level LDL Cholesterol [facility] Start: 04-03-2024 End: 04-03-2024 Patient encounter procedure Mammography Comment on above: RIGHT BREAST STEREOTACT BIOPSY UOQ calcs, NEEDS CON SENT Start: 03-24-2024 End: 03-24-2024 Patient encounter procedure 03/24/2024 3:40 PM EST Office Visit Internal Medicine [place] [address] [place] [address] Yasemin Connors MD [address] [place] [address] er follow up Internal Medicine [place] Comment on above: er follow up Start: 03-21-2024 End: 03-21-2024 Patient encounter procedure 03/21/2024 2:15 PM EST Office Visit General Surgery [address] [place] [address] Mahin Pérez MD [address] [place] [address] follow up stereo biopsy General Surgery Comment on above: follow up stereo biopsy Start: 03-14-2024 End: 03-14-2024 Patient encounter procedure 03/14/2024 10:30 AM EST Appointment Mammography [address] [phone] RIGHT BREAST STEREOTACT BIOPSY Mammography Comment on above: RIGHT BREAST STEREOTACT BIOPSY Start: 03-12-2024 Glaucoma screening Dilated Retinal Exam [facility] Start: 03-09-2024 Venous catheter care management [facility] Start: 03-09-2024 [facility] Start: 03-09-2024 Enteric precautions [facility] Start: 03-09-2024 Respiratory secretion precautions [facility] Start: 03-03-2024 End: 06-02-2024 Chronic hepatitis differentiation between hepatitis B and C virus panel - Serum or Plasma [facility] Comment on above: Expected: 03/03/2024, Expires: Start: 03-03-2024 End: 06-02-2024 Hepatic function 2000 panel - Serum or Plasma [facility] Comment on above: Expected: 03/03/2024, Expires: Start: 03-03-2024 End: 06-02-2024 Microalbumin/Creatinine [Mass Ratio] in Urine [facility] Work Phone: Comment on above: Expected: 03/03/2024, Expires: Start: 02-29-2024 End: 02-29-2024 Patient encounter procedure 02/29/2024 3:15 PM EST Office Visit General Surgery [address] [place] [address] Mahin Pérez MD [address] [place] [address] follow up stereo biopsy General Surgery Comment on above: follow up stereo biopsy Start: 02-27-2024 End: 02-27-2024 Patient encounter procedure 02/27/2024 3:30 PM EST Office Visit General Surgery [address] [place] [address] Mahin Pérez MD [address] [place] [address] follow up stereo biopsy General Surgery Comment on above: follow up stereo biopsy Start: 02-22-2024 End: 02-22-2024 Patient encounter procedure 02/22/2024 11:40 AM EST Office Visit Internal Medicine [place] [address] [facility] [address] Estefani Willard APRN.ADMINISTRATIVE PROCESSOR [address] [place] [address] 4 week follow up [facility] [place] Comment on above: 4 week follow up Start: 02-21-2024 End: 02-21-2024 Patient encounter procedure [facility] [place] Comment on above: 4 week follow up Right Breast Stereo Bx Prone 1 site per ws Start: 02-14-2024 End: 02-14-2024 Patient encounter procedure 02/14/2024 1:15 PM EST Office Visit Pulmonary Medicine [address] [place] [address] Shantell Lorenzana MD [address] [place] [address] 6 mo f/up Pulmonary Medicine Comment on above: 6 mo f/up Start: 02-06-2024 Advance Directive Discussion Advance Directive Discussion [facility] Start: 02-06-2024 Medicare Advantage Annual Wellness Visit Medicare [facility] Annual Wellness Visit [facility] Start: 02-05-2024 End: 02-05-2024 Patient encounter procedure 02/05/2024 11:00 AM EST Office Visit Family Medicine [place] [address] [place] [address] Lisa Henderson PA-C [address] [facility] [address] Review Lab results--from [facility]. See TE from 01/16/2024. [facility] [place] Comment on above: Review Lab results--from [facility]. See TE fro 01/16/2024. Start: 01-23-2024 End: 01-23-2024 Patient encounter procedure General Surgery Comment on above: calcifications / breast consult calcifications / misael ast consult, 01/15/24 mammogram, mjs Start: 01-23-2024 End: 04-23-2024 Comprehensive metabolic 2000 panel - Serum or Plasma [facility] Work Phone: Comment on above: Expected: 01/23/2024, Expires: Start: 01-23-2024 End: 04-23-2024 Hemoglobin A1c in Blood [facility] Comment on above: Expected: 01/23/2024, Expires: 5 Start: 01-23-2024 End: 01-23-2024 Patient encounter procedure 01/23/2024 11:40 AM EST Office Visit Internal Medicine [place] [address] [place] [address] Estefani Willard APRN.ADMINISTRATIVE PROCESSOR [address] [facility] [place] [address] review labs from cardio Internal Medicine [place] Comment on above: review labs from cardio Start: 01-19-2024 Hemoglobin A1c measurement HbA1C [facility] Start: 01-17-2024 End: 01-17-2024 Patient encounter procedure General Surgery Comment on above: 01/08 colonoscopy follow up 01/08 colonoscopy fo llow up path in [facility] Start: 01-15-2024 End: 01-15-2024 Patient encounter procedure Mammogram Comment on above: TRENT DIAGNOSTIC RIGHT Comp- RT 6 MONTH F/U F/U Start: 01-09-2024 End: 01-09-2024 Patient encounter procedure Ambulatory Surgery Start: 01-07-2024 End: 01-07-2024 ambulatory 01/07/2024 10:30 AM EST [facility] Hematology/Oncology [address] [place] [address] Wstr, Lab/Port [facility] [address] [place] [address] PORT FLUSH* CBC/BMP/LFT's/CEA Hematology/Oncology Comment on above: PORT FLUSH* CBC/BMP/LFT's/CEA Start: 01-07-2024 End: 01-07-2024 Patient encounter procedure Cat Scan Comment on above: 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] Start: 01-05-2024 Creatinine measurement Serum Creatinine [facility] Start: 01-05-2024 Serum Creatinine Serum Creatinine [facility] Start: 12-21-2023 Annual PCP Team Chronic Disease Visit Annual PCP Team Chronic Disease Visit [facility] Start: 12-21-2023 RSV Vaccine (1 - 1-dose 75+ series) RSV Vaccine (1 - 1-dose 75+ series) [facility] Start: 12-18-2023 End: 12-18-2023 Patient encounter procedure 12/18/2023 1:30 PM EST Office Visit Podiatry [address] [place] [address] Patricia Deluca [address] [place] [address] 1 year follow up Podiatry Comment on above: 1 year follow up Start: 12-12-2023 Annual PCP Team Chronic Disease Visit Annual PCP Team Chronic Disease Visit [facility] Start: 12-12-2023 Covid-19 Vaccine () Covid-19 Vaccine () [facility] Comment on above: Postponed from 10/06/2022 (Declined at t his time) Start: 12-12-2023 Hepatitis B screening Urine Albumin:Creatinine Ratio [facility] Start: 12-12-2023 Hepatitis B Vaccine (1 of 3 - Risk 3-dose series) Hepatitis B Vaccine (1 of 3 - Risk 3-dose series) [facility] Comment on above: Postponed from 2008 (Declined at t his time) Start: 12-12-2023 RSV Vaccine (1 - 1-dose 60+ series) RSV Vaccine (1 - 1-dose 60+ series) [facility] Comment on above: Postponed from 2008 (Declined at t his time) Start: 12-12-2023 RSV Vaccine (1 - Risk 60-74 years 1-dose series) RSV Vaccine (1 - Risk 60-74 years 1-dose series) [facility] Comment on above: Postponed from 2008 (Declined at t his time) Start: 12-09-2023 3 comp foot exam completed Diabetic Foot Exam [facility] Start: 12-09-2023 Diabetic foot examination Diabetic Foot Exam [facility] Start: 12-07-2023 End: 12-07-2023 Patient encounter procedure 12/07/2023 11:30 AM EDT Office Visit Podiatry [address] [place] [address] Patricia Deluca [address] [place] [address] 1 year follow up Podiatry Comment on above: 1 year follow up Start: 12-06-2023 Complete blood count Hemoglobin/Hematocrit [facility] Start: 12-06-2023 Hemoglobin/Hematocrit Hemoglobin/Hematocrit [facility] Start: 12-06-2023 Serum Creatinine Serum Creatinine [facility] Start: 10-25-2023 End: 10-25-2023 Patient encounter procedure 10/25/2023 1:00 PM EDT Office Visit Internal Medicine [place] [address] [place] [address] Estefani Willard APRN.ADMINISTRATIVE PROCESSOR [address] [place] [address] 3 month follow up [facility] Medicine [place] Comment on above: 3 month follow up Start: 10-07-2023 Covid-19 Vaccine ( season) Covid-19 Vaccine () [facility] Start: 10-07-2023 Hemoglobin A1c measurement HbA1C [facility] Start: 10-07-2023 Influenza vaccination Influenza Vaccine (#1) [facility] Start: 10-06-2023 BP CONTROLLED (<130/80) BP CONTROLLED (<130/80) [facility] Start: 10-06-2023 HEMOGLOBIN/HEMATOCRIT HEMOGLOBIN/HEMATOCRIT [facility] Start: 10-06-2023 SERUM CREATININE SERUM CREATININE [facility] Start: 10-02-2023 End: 10-02-2023 ambulatory Hematology/Oncology Comment on above: CBC/BMP/LFT/CEA(PORT)OV TODAY* 6 MO OV(PORT)LAB EAR LY* Start: 09-23-2023 ANNUAL PCP TEAM CHRONIC DISEASE VISIT ANNUAL PCP TEAM CHRONIC DISEASE VISIT [facility] Start: 09-23-2023 BP CONTROLLED (<130/80) BP CONTROLLED (<130/80) [facility] Start: 09-21-2023 End: 09-21-2023 Patient encounter procedure 09/21/2023 11:30 AM EDT Office Visit OB/Gynecology [address] [place] [address] Danuta Orantes APRN.ADMINISTRATIVE PROCESSOR [address] [place] [address] feels intermitant twitches in vaginal and pelvic area OB/Gynecology Comment on above: feels intermitant twitches in vaginal an d pelvic area Start: 09-19-2023 ANNUAL PCP TEAM CHRONIC DISEASE VISIT ANNUAL PCP TEAM CHRONIC DISEASE VISIT [facility] Start: 08-08-2023 End: 11-07-2023 Basic metabolic 2000 panel - Serum or Plasma BASIC METABOLIC PANEL Lab Routine Function kidney decreased Expected: 08/08/2023 (Approximate), Expires: 11/07/2023 [facility] Comment on above: Expected: 08/08/2023 (Approximate), Expi res: 11/07/2023 Start: 08-05-2023 BP CONTROLLED (<130/80) BP CONTROLLED (<130/80) [facility] Start: 07-27-2023 End: 07-27-2023 Patient encounter procedure 07/27/2023 1:30 PM EDT Office Visit Pulmonary Medicine [address] [place] [address] Shantell Lorenzana MD [address] [place] [place] [address] six month follow up Pulmonary Medicine Comment on above: six month follow up Start: 07-25-2023 End: 10-24-2023 Urinalysis complete panel - Urine URINALYSIS WITH MICROSCOPIC, REFLEX CULTURE Lab Routine Lower abdominal pain Function kidney decreased Expected: 07/25/2023, Expires: 10/24/2023 [facility] Work Phone: Comment on above: Expected: 07/25/2023, Expires: Start: 07-23-2023 End: 07-23-2023 Patient encounter procedure 07/23/2023 1:20 PM EDT Office Visit Internal Medicine [place] [address] [place] [address] Estefani Willard APRN.ADMINISTRATIVE PROCESSOR [address] [place], [place] [id number] follow up [facility] [place] Comment on above: follow up Start: 07-18-2023 BP CONTROLLED (<130/80) BP CONTROLLED (<130/80) [facility] Start: 07-11-2023 End: 07-11-2023 Patient encounter procedure Mammogram Comment on above: Comp- TRENT DIAGNOSTIC RT for asym. Abnormal mammogram [ R92.8] Start: 07-07-2023 End: 10-06-2023 CREATININE BLD CREATININE BLD Lab STAT Cancer of transverse colon (HCC) Lung nodules Metastases to the liver (HCC) Expected: 07/07/2023 (Approximate), Expires: 10/06/2023 [facility] Work Phone: Comment on above: Expected: 07/07/2023 (Approximate), Expi res: 10/06/2023 Start: 07-06-2023 End: 07-06-2023 ambulatory 07/06/2023 1:30 PM EDT Infusion Center Hematology/Oncology [address] [place] [address] Wstr, Lab/Port [facility] [address] [place] [address]* Hematology/Oncology Comment on above: ACCESS PORT FOR CT* Start: 07-06-2023 End: 07-06-2023 Patient encounter procedure Cat Scan Comment on above: 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] Start: 07-02-2023 ANNUAL PCP TEAM CHRONIC DISEASE VISIT ANNUAL PCP TEAM CHRONIC DISEASE VISIT [facility] Start: 07-02-2023 BP CONTROLLED (<130/80) BP CONTROLLED (<130/80) [facility] Start: 06-27-2023 SERUM CREATININE SERUM CREATININE [facility] Start: 06-20-2023 HEMOGLOBIN/HEMATOCRIT HEMOGLOBIN/HEMATOCRIT [facility] Start: 06-20-2023 Hepatitis B surface antibody level LDL CHOLESTEROL [facility] Start: 06-17-2023 ANNUAL PCP TEAM CHRONIC DISEASE VISIT ANNUAL PCP TEAM CHRONIC DISEASE VISIT [facility] Start: 06-12-2023 End: 06-12-2023 Patient encounter procedure 06/12/2023 12:50 PM EDT Appointment Mammogram [address] [place] [address] Encounter for screening mammogram for malignant neoplasm of breast [Z12.31]; Mammographic heterogeneous density, bilateral breasts [R92.333 Mammogram Comment on above: Encounter for screening mammogram for ma lignant neoplasm of breast [Z12.31]; Mammographic heterogeneous density, bilateral breasts [R92.333 Start: 06-10-2023 ANNUAL PCP TEAM CHRONIC DISEASE VISIT ANNUAL PCP TEAM CHRONIC DISEASE VISIT [facility] Start: 06-10-2023 BP CONTROLLED (<130/80) BP CONTROLLED (<130/80) [facility] Start: 06-10-2023 Mammography [facility] Start: 06-10-2023 Screening for malignant neoplasm of breast Mammogram Screening [facility] Start: 06-05-2023 Hemoglobin A1c measurement HbA1C [facility] Start: 06-05-2023 Hemoglobin A1c/Hemoglobin.total in Blood HbA1C [facility] Start: 06-04-2023 End: 09-03-2023 CBC panel - Blood by Automated count CBC Lab Routine Type 2 diabetes mellitus with stage 3a chronic kidney disease, with long-term current use of insulin (HCC) 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) Expected: 06/04/2023 (Approximate), Expires: 09/03/2023 [facility] Work Phone: Comment on above: Expected: 06/04/2023 (Approximate), Expi res: 09/03/2023 Start: 06-04-2023 End: 09-03-2023 Comprehensive metabolic 2000 panel - Serum or Plasma COMP METABOLIC PANEL Lab Routine Type 2 diabetes mellitus with stage 3a chronic kidney disease, with long-term current use of insulin (HCC) Hematuria, unspecified type 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) Lipid screening Expected: 06/04/2023 (Approximate), Expires: 09/03/2023 [facility] Work Phone: Comment on above: Expected: 06/04/2023 (Approximate), Expi res: 09/03/2023 Start: 06-04-2023 End: 09-03-2023 Hemoglobin A1c in Blood HGB A1C Lab Routine Type 2 diabetes mellitus with stage 3a chronic kidney disease, with long-term current use of insulin (HCC) Expected: 06/04/2023 (Approximate), Expires: 09/03/2023 [facility] Work Phone: Comment on above: Expected: 06/04/2023 (Approximate), Expi res: 09/03/2023 Start: 06-04-2023 End: 09-03-2023 Lipid 1996 panel - Serum or Plasma LIPID PANEL BASIC Lab Routine Type 2 diabetes mellitus with stage 3a chronic kidney disease, with long-term current use of insulin (HCC) Lipid screening Expected: 06/04/2023 (Approximate), Expires: 09/03/2023 [facility] Work Phone: Comment on above: Expected: 06/04/2023 (Approximate), Expi res: 09/03/2023 Start: 06-04-2023 End: 09-03-2023 Magnesium [Mass/volume] in Serum or Plasma MAGNESIUM BLD Lab Routine Hypomagnesemia Expected: 06/04/2023, Expires: 09/03/2023 [facility] Work Phone: Comment on above: Expected: 06/04/2023, Expires: Start: 04-29-2023 BP CONTROLLED (<130/80) BP CONTROLLED (<130/80) [facility] Start: 04-15-2023 Hepatitis B surface antibody level LDL CHOLESTEROL [facility] Start: 04-15-2023 SERUM CREATININE SERUM CREATININE [facility] Start: 04-12-2023 ANNUAL PCP TEAM CHRONIC DISEASE VISIT ANNUAL PCP TEAM CHRONIC DISEASE VISIT [facility] Start: 04-11-2023 End: 07-11-2023 CREATININE BLD CREATININE BLD Lab STAT Lung nodules Cancer of transverse colon (HCC) Metastases to the liver (HCC) Expected: 04/11/2023 (Approximate), Expires: 07/11/2023 [facility] Work Phone: Comment on above: Expected: 04/11/2023 (Approximate), Expi res: 07/11/2023 Start: 04-10-2023 SERUM CREATININE SERUM CREATININE [facility] Start: 04-09-2023 Hepatitis B surface antibody level LDL CHOLESTEROL [facility] Start: 04-08-2023 ANNUAL PCP TEAM CHRONIC DISEASE VISIT ANNUAL PCP TEAM CHRONIC DISEASE VISIT [facility] Start: 04-08-2023 BP CONTROLLED (<130/80) BP CONTROLLED (<130/80) [facility] Start: 04-08-2023 SERUM CREATININE SERUM CREATININE [facility] Start: 04-03-2023 BP CONTROLLED (<130/80) BP CONTROLLED (<130/80) [facility] Start: 04-03-2023 SERUM CREATININE SERUM CREATININE [facility] Start: 03-07-2023 [facility] Start: 02-21-2023 ANNUAL PCP TEAM CHRONIC DISEASE VISIT ANNUAL PCP TEAM CHRONIC DISEASE VISIT [facility] Start: 02-21-2023 BP CONTROLLED (<130/80) BP CONTROLLED (<130/80) [facility] Start: 02-21-2023 SERUM CREATININE SERUM CREATININE [facility] Start: 02-21-2023 Urine microalbumin profile [facility] Comment on above: Postponed from 09/09/2020 (Declined at t his time) Start: 02-05-2023 Advance Directive Discussion Advance Directive Discussion [facility] Start: 02-05-2023 Behavioral Health Screening Behavioral Health Screening [facility] Start: 02-05-2023 Depression Assessment Depression Assessment [facility] Start: 01-16-2023 BP CONTROLLED (<130/80) BP CONTROLLED (<130/80) [facility] Start: 2022 End: 02-19-2023 CREATININE BLD CREATININE BLD Lab STAT Malignant neoplasm of transverse colon (HCC) Metastases to the liver (HCC) Lung nodules Expected: 2022 (Approximate), Expires: 02/19/2023 [facility] Work Phone: Comment on above: Expected: 2022 (Approximate), Expi res: 02/19/2023 Start: 2022 Hemoglobin A1c/Hemoglobin.total in Blood HBA1C [facility] Start: 12-19-2022 End: 2023 PELVIC US WHI PELVIC US WHI Anc Imaging Routine Fluid in endometrial cavity PMB (postmenopausal bleeding) Expected: 12/19/2022, Expires: 2023 [facility] Work Phone: Comment on above: Expected: 12/19/2022, Expires: Start: 12-18-2022 End: 02-17-2023 Basic metabolic 2000 panel - Serum or Plasma BASIC METABOLIC PNL Lab Routine 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) Stage 3 chronic kidney disease, unspecified whether stage 3a or 3b CKD (HCC) Expected: 12/18/2022 (Approximate), Expires: 02/17/2023 [facility] Work Phone: Comment on above: Expected: 12/18/2022 (Approximate), Expi res: 02/17/2023 Start: 12-18-2022 End: 02-17-2023 CBC panel - Blood by Automated count CBC Lab Routine 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) Stage 3 chronic kidney disease, unspecified whether stage 3a or 3b CKD (HCC) Expected: 12/18/2022 (Approximate), Expires: 02/17/2023 [facility] Work Phone: Comment on above: Expected: 12/18/2022 (Approximate), Expi res: 02/17/2023 Start: 12-18-2022 End: 02-17-2023 Hemoglobin A1c in Blood HGB A1C Lab Routine 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) Expected: 12/18/2022 (Approximate), Expires: 02/17/2023 [facility] Work Phone: Comment on above: Expected: 12/18/2022 (Approximate), Expi res: 02/17/2023 Start: 12-14-2022 End: 12-15-2023 PELVIC US WHI PELVIC US WHI Anc Imaging Routine Vaginal discharge PMB (postmenopausal bleeding) Expected: 12/14/2022, Expires: 12/15/2023 [facility] Work Phone: Comment on above: Expected: 12/14/2022, Expires: 4 Start: 12-09-2022 ANNUAL PCP TEAM CHRONIC DISEASE VISIT ANNUAL PCP TEAM CHRONIC DISEASE VISIT [facility] Start: 12-09-2022 BP CONTROLLED (<130/80) BP CONTROLLED (<130/80) [facility] Start: 12-08-2022 3 comp foot exam completed DIABETIC FOOT EXAM [facility] Start: 12-01-2022 Hepatitis B screening URINE ALBUMIN:CREATININE RATIO [facility] Start: 12-01-2022 Hepatitis B surface antibody level LDL CHOLESTEROL [facility] Start: 12-01-2022 SERUM CREATININE SERUM CREATININE [facility] Start: 10-15-2022 Hemoglobin A1c/Hemoglobin.total in Blood HBA1C [facility] Start: 10-09-2022 Hemoglobin A1c/Hemoglobin.total in Blood HBA1C [facility] Start: 10-06-2022 End: 12-06-2022 Bacteria identified in Urine by Culture [facility] Work Phone: Comment on above: Expected: 10/06/2022, Expires: 3 Start: 10-06-2022 Covid-19 Vaccine () Covid-19 Vaccine () [facility] Start: 10-06-2022 Influenza vaccination [facility] Start: 10-06-2022 End: 12-06-2022 Urinalysis complete panel - Urine [facility] Work Phone: Comment on above: Expected: 10/06/2022, Expires: 3 Start: 09-18-2022 End: 11-18-2022 Bacteria identified in Urine by Culture [facility] Work Phone: Comment on above: Expected: 09/18/2022, Expires: 3 Start: 09-06-2022 ANNUAL PCP TEAM CHRONIC DISEASE VISIT ANNUAL PCP TEAM CHRONIC DISEASE VISIT [facility] Start: 09-06-2022 BP CONTROLLED (<130/80) BP CONTROLLED (<130/80) [facility] Start: 08-21-2022 Hemoglobin A1c/Hemoglobin.total in Blood HBA1C [facility] Start: 07-31-2022 End: 09-30-2022 Bacteria identified in Urine by Culture [facility] Work Phone: Comment on above: Expected: 07/31/2022, Expires: 3 Start: 07-31-2022 End: 09-30-2022 Urinalysis complete panel - Urine [facility] Work Phone: Comment on above: Expected: 07/31/2022, Expires: 3 Start: 07-26-2022 SERUM CREATININE SERUM CREATININE [facility] Start: 06-16-2022 End: 08-16-2022 Basic metabolic 2000 panel - Serum or Plasma BASIC METABOLIC PNL Lab Routine 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) Expected: 06/16/2022, Expires: 08/16/2022 [facility] Work Phone: Comment on above: Expected: 06/16/2022, Expires: 3 Start: 06-14-2022 BP CONTROLLED (<130/80) BP CONTROLLED (<130/80) [facility] Start: 06-08-2022 Hemoglobin A1c/Hemoglobin.total in Blood HBA1C [facility] Start: 06-06-2022 ANNUAL PCP TEAM CHRONIC DISEASE VISIT ANNUAL PCP TEAM CHRONIC DISEASE VISIT [facility] Start: 06-01-2022 Mammography MAMMOGRAM [facility] Start: 04-15-2022 Venous catheter care management [facility] Start: 04-11-2022 End: 06-11-2022 C reactive protein [Mass/volume] in Serum or Plasma C-REACTIVE PROTEIN (CRP) Lab Routine Double vision Nonintractable headache, unspecified chronicity pattern, unspecified headache type Expected: 04/11/2022, Expires: 06/11/2022 [facility] Work Phone: Comment on above: Expected: 04/11/2022, Expires: 3 Start: 04-11-2022 End: 06-11-2022 Erythrocyte sedimentation rate SED RATE WESTERGREN Lab Routine Double vision Nonintractable headache, unspecified chronicity pattern, unspecified headache type Expected: 04/11/2022, Expires: 06/11/2022 [facility] Work Phone: Comment on above: Expected: 04/11/2022, Expires: 3 Start: 04-07-2022 BP CONTROLLED (<130/80) BP CONTROLLED (<130/80) [facility] Start: 03-30-2022 Adult depression screening assessment DEPRESSION SCREENING [facility] Start: 03-28-2022 HEMOGLOBIN/HEMATOCRIT HEMOGLOBIN/HEMATOCRIT [facility] Start: 03-28-2022 SERUM CREATININE SERUM CREATININE [facility] Start: 03-09-2022 Hemoglobin A1c/Hemoglobin.total in Blood HBA1C [facility] Start: 02-21-2022 End: 02-21-2023 25-hydroxyvitamin D3 [Mass/volume] in Serum or Plasma [facility] Work Phone: Comment on above: Expected: 02/21/2022, Expires: 4 Start: 02-21-2022 End: 04-23-2022 CBC W Auto Differential panel - Blood [facility] Work Phone: Comment on above: Expected: 02/21/2022, Expires: 3 Start: 02-21-2022 End: 04-23-2022 Cobalamin (Vitamin B12) [Mass/volume] in Serum or Plasma [facility] Work Phone: Comment on above: Expected: 02/21/2022, Expires: 3 Start: 02-21-2022 End: 04-23-2022 Comprehensive metabolic 2000 panel - Serum or Plasma [facility] Work Phone: Comment on above: Expected: 02/21/2022, Expires: 3 Start: 02-21-2022 End: 04-23-2022 Hemoglobin A1c in Blood [facility] Work Phone: Comment on above: Expected: 02/21/2022, Expires: 3 Start: 02-05-2022 ADVANCE DIRECTIVE DISCUSSION ADVANCE DIRECTIVE DISCUSSION [facility] Start: 02-05-2022 DEPRESSION ASSESSMENT DEPRESSION ASSESSMENT [facility] Start: 12-08-2021 End: 02-07-2022 CREATININE BLD CREATININE BLD Lab STAT Malignant neoplasm of transverse colon (HCC) Metastases to the liver (HCC) Lung nodules Expected: 12/08/2021, Expires: 02/07/2022 [facility] Work Phone: Comment on above: Expected: 12/08/2021, Expires: 3 Start: 12-07-2021 3 comp foot exam completed DIABETIC FOOT EXAM [facility] Start: 12-07-2021 Hemoglobin A1c/Hemoglobin.total in Blood HBA1C [facility] Start: 12-07-2021 Hepatitis B screening URINE ALBUMIN:CREATININE RATIO [facility] Start: 12-07-2021 Hepatitis B surface antibody level LDL CHOLESTEROL [facility] Start: 12-06-2021 ANNUAL PCP TEAM CHRONIC DISEASE VISIT ANNUAL PCP TEAM CHRONIC DISEASE VISIT [facility] Start: 12-06-2021 BP CONTROLLED (<130/80) BP CONTROLLED (<130/80) [facility] Start: 11-22-2021 End: 01-22-2022 ALBUMIN/CREAT RATIO RND UR ALBUMIN/CREAT RATIO RND UR Lab Routine Type 2 diabetes mellitus with stage 3 chronic kidney disease, with long-term current use of insulin (HCC) Expected: 11/22/2021, Expires: 01/22/2022 [facility] Work Phone: Comment on above: Expected: 11/22/2021, Expires: 2 Start: 11-22-2021 End: 01-22-2022 Lipid 1996 panel - Serum or Plasma LIPID PANEL BASIC Lab Routine Type 2 diabetes mellitus with stage 3 chronic kidney disease, with long-term current use of insulin (HCC) Expected: 11/22/2021, Expires: 01/22/2022 [facility] Work Phone: Comment on above: Expected: 11/22/2021, Expires: 2 Start: 11-22-2021 End: 01-22-2022 SCHEDULE LAB TESTING SCHEDULE LAB TESTING Lab Routine Expected: 11/22/2021, Expires: 01/22/2022 [facility] Work Phone: Comment on above: Expected: 11/22/2021, Expires: 2 Start: 10-25-2021 Glaucoma screening Dilated Retinal Exam [facility] Start: 10-25-2021 Hepatitis C antibody, confirmatory test DILATED RETINAL EXAM [facility] Start: 10-06-2021 Influenza vaccination INFLUENZA (#1) [facility] Start: 07-26-2021 End: 09-25-2021 Basic metabolic 2000 panel - Serum or Plasma BASIC METABOLIC PNL Lab STAT Cancer of transverse colon (HCC) Metastases to the liver (HCC) Lung nodules Secondary malignant neoplasm of chest wall (HCC) Expected: 07/26/2021, Expires: 09/25/2021 [facility] Work Phone: Comment on above: Expected: 07/26/2021, Expires: 2 Start: 07-26-2021 End: 09-25-2021 Carcinoembryonic Ag [Mass/volume] in Serum or Plasma CEA BLD Lab Routine Cancer of transverse colon (HCC) Metastases to the liver (HCC) Lung nodules Secondary malignant neoplasm of chest wall (HCC) Expected: 07/26/2021, Expires: 09/25/2021 [facility] Work Phone: Comment on above: Expected: 07/26/2021, Expires: 2 Start: 07-26-2021 End: 09-25-2021 CBC W Auto Differential panel - Blood CBC + DIFF Lab STAT Cancer of transverse colon (HCC) Metastases to the liver (HCC) Lung nodules Secondary malignant neoplasm of chest wall (HCC) Expected: 07/26/2021, Expires: 09/25/2021 [facility] Work Phone: Comment on above: Expected: 07/26/2021, Expires: 2 Start: 07-26-2021 End: 09-25-2021 Hepatic function 2000 panel - Serum or Plasma HEPATIC FUNCTION PNL Lab Routine Cancer of transverse colon (HCC) Metastases to the liver (HCC) Lung nodules Secondary malignant neoplasm of chest wall (HCC) Expected: 07/26/2021, Expires: 09/25/2021 [facility] Work Phone: Comment on above: Expected: 07/26/2021, Expires: 2 Start: 06-22-2021 ANNUAL PCP TEAM CHRONIC DISEASE VISIT ANNUAL PCP TEAM CHRONIC DISEASE VISIT [facility] Start: 06-06-2021 Hemoglobin A1c/Hemoglobin.total in Blood HBA1C [facility] Start: 05-21-2021 Mammography MAMMOGRAM [facility] Start: 02-05-2021 ADVANCE DIRECTIVE DISCUSSION ADVANCE DIRECTIVE DISCUSSION [facility] Start: 02-05-2021 DEPRESSION ASSESSMENT DEPRESSION ASSESSMENT [facility] Start: 12-29-2020 COVID-19 VACCINE (4 - Booster for Moderna series) COVID-19 VACCINE (4 - Booster for Moderna series) [facility] Start: 12-21-2020 COVID-19 VACCINE (4 - Booster for Moderna series) COVID-19 VACCINE (4 - Booster for Moderna series) [facility] Start: 11-23-2020 COVID-19 VACCINE (4 - Booster for Moderna series) COVID-19 VACCINE (4 - Booster for Moderna series) [facility] Start: 11-23-2020 COVID-19 VACCINE (4 - Moderna series) COVID-19 VACCINE (4 - Moderna series) [facility] Start: 11-23-2020 COVID-19 VACCINE (5 - Booster for Moderna series) COVID-19 VACCINE (5 - Booster for Moderna series) [facility] Start: 10-19-2021 COVID-19 VACCINE (5 - Booster) COVID-19 VACCINE (5 - Booster) [facility] Start: 09-09-2020 Urine microalbumin profile [facility] Start: 09-17-2012 FECAL OCCULT BLOOD FECAL OCCULT BLOOD [facility] Start: 09-17-2012 Screening for malignant neoplasm of colon Fecal Occult Blood [facility] Start: 2008 Hepatitis B Vaccine (1 of 3 - Risk 3-dose series) Hepatitis B Vaccine (1 of 3 - Risk 3-dose series) [facility] Start: 2008 RSV Vaccine (1 - 1-dose 60+ series) RSV Vaccine (1 - 1-dose 60+ series) [facility] Start: 2008 RSV Vaccine (1 - Risk 60-74 years 1-dose series) RSV Vaccine (1 - Risk 60-74 years 1-dose series) [facility] Start: 1993 COLOGUARD (FIT-DNA) COLOGUARD (FIT-DNA) [facility] Start: [address] COLONOGRAPHY [facility] Start: 1993 Screening for malignant neoplasm of colon [facility] Start: 1993 SIGMOIDOSCOPY SIGMOIDOSCOPY [facility] Start: 1978 Zoledronic acid therapy ALPHA-1 ANTITRYPSIN DEFICIENCY SCREENING [facility] Start: 1966 Anxiety Screening Anxiety Screening [facility] Start: 1966 Depression Screening Depression Screening [facility] ALBUMIN/CREAT RATIO RND UR ALBUMIN/CREAT RATIO RND UR Lab Routine Type 2 diabetes mellitus with stage 3 chronic kidney disease, with long-term current use of insulin (HCC) 12/01/2021 11:04 AM EDT [facility] Work Phone: Carcinoembryonic Ag [Mass/volume] in Serum or Plasma CEA BLD Lab Routine 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) Metastases to the liver (HCC) Lung nodules 12/01/2021 11:04 AM EDT [facility] Work Phone: Carcinoembryonic Ag [Mass/volume] in Serum or Plasma CEA BLD Lab Routine Malignant neoplasm of transverse colon (HCC) Metastases to the liver (HCC) Lung nodules 04/03/2022 1:17 PM EST [facility] Work Phone: Carcinoembryonic Ag [Mass/volume] in Serum or Plasma CEA BLD Lab Routine Malignant neoplasm of transverse colon (HCC) Metastases to the liver (HCC) Lung nodules 10/05/2022 1:45 PM [facility] Work Phone: Carcinoembryonic Ag [Mass/volume] in Serum or Plasma CEA BLD Lab Routine Cancer of transverse colon (HCC) Metastases to the liver (HCC) Lung nodules 04/06/2023 10:51 AM [facility] Work Phone: Carcinoembryonic Ag [Mass/volume] in Serum or Plasma CARCINOEMBRYONIC ANTIGEN Lab Routine Cancer of transverse colon (HCC) Lung nodules Metastases to the liver (HCC) 10/02/2023 1:19 PM [facility] Work Phone: Carcinoembryonic Ag [Mass/volume] in Serum or Plasma CARCINOEMBRYONIC ANTIGEN Lab Routine Cancer of transverse colon (HCC) Metastases to the liver (HCC) 04/08/2024 12:29 PM [facility] Work Phone: Carcinoembryonic Ag [Mass/volume] in Serum or Plasma CARCINOEMBRYONIC ANTIGEN Lab Routine Cancer of transverse colon (HCC) Metastases to the liver (HCC) 07/16/2024 1:01 PM [facility] Work Phone: Carcinoembryonic Ag [Mass/volume] in Serum or Plasma CARCINOEMBRYONIC ANTIGEN Lab Routine Cancer of transverse colon (HCC) Metastases to the liver (HCC) 10/09/2024 11:12 AM [facility] Work Phone: End: 12-09-2022 CBC panel - Blood by Automated count CBC Lab Routine 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) Every 6 months for 12 Occurrences starting 12/09/2021 until 12/09/2022 [facility] Work Phone: Comment on above: Every 6 months for 12 Occurrences starti ng 12/09/2021 until 12/09/2022 End: 06-17-2023 CBC panel - Blood by Automated count CBC Lab Routine 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) Every 6 months for 12 Occurrences starting 06/16/2022 until 06/17/2023 [facility] Work Phone: Comment on above: Every 6 months for 12 Occurrences starti ng 06/16/2022 until 06/17/2023 End: 12-09-2022 Comprehensive metabolic 2000 panel - Serum or Plasma COMP METABOLIC PANEL Lab Routine 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) Every 6 months for 12 Occurrences starting 12/09/2021 until 12/09/2022 [facility] Work Phone: Comment on above: Every 6 months for 12 Occurrences starti ng 12/09/2021 until 12/09/2022 End: 06-17-2023 Comprehensive metabolic 2000 panel - Serum or Plasma COMP METABOLIC PANEL Lab Routine 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) Every 6 months for 12 Occurrences starting 06/16/2022 until 06/17/2023 [facility] Work Phone: Comment on above: Every 6 months for 12 Occurrences starti ng 06/16/2022 until 06/17/2023 Ct abdomen & pelvis w/contrast material CT ABD/PEL W IVCON Radiology Routine 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 to the liver (HCC) Lung nodules 07/26/2021 11:03 AM EDT [facility] Work Phone: End: 12-31-2022 Ct abdomen & pelvis w/contrast material CT ABD/PEL W IVCON Radiology Routine Malignant neoplasm of transverse colon (HCC) Metastases to the liver (HCC) Lung nodules 1 Occurrences starting 12/01/2021 until 12/31/2022 [facility] Work Phone: Comment on above: 1 Occurrences starting 12/01/2021 until 12/31/2022 End: 05-03-2023 Ct abdomen & pelvis w/contrast material CT ABD/PEL W IVCON Radiology Routine Malignant neoplasm of transverse colon (HCC) Metastases to the liver (HCC) Lung nodules 1 Occurrences starting 04/03/2022 until 05/03/2023 [facility] Work Phone: Comment on above: 1 Occurrences starting 04/03/2022 until 05/03/2023 End: 11-04-2023 Ct abdomen & pelvis w/contrast material CT ABD/PEL W IVCON Radiology Routine Malignant neoplasm of transverse colon (HCC) Metastases to the liver (HCC) Lung nodules 1 Occurrences starting 10/05/2022 until 11/04/2023 [facility] Work Phone: Comment on above: 1 Occurrences starting 10/05/2022 until 11/04/2023 Ct abdomen & pelvis w/contrast material CT ABD/PEL W IVCON Radiology Routine Malignant neoplasm of transverse colon (HCC) Metastases to the liver (HCC) Lung nodules 01/04/2023 11:20 AM EST [facility] Work Phone: End: 05-05-2024 CT Abdomen and Pelvis W contrast IV CT ABD/PEL W IVCON Radiology Routine Cancer of transverse colon (HCC) Lung nodules Metastases to the liver (HCC) 1 Occurrences starting 04/06/2023 until 05/05/2024 [facility] Work Phone: Comment on above: 1 Occurrences starting 04/06/2023 until 05/05/2024 CT Abdomen and Pelvi s W contrast IV CT ABD/PEL W IVCON Radiology Routine Cancer of transverse colon (HCC) Lung nodules Metastases to the liver (HCC) 07/06/2023 2:41 PM EDT [facility] Work Phone: End: 10-31-2024 CT Abdomen and Pelvis W contrast IV CT ABD/PEL W IVCON Radiology Routine Cancer of transverse colon (HCC) Lung nodules Metastases to the liver (HCC) 1 Occurrences starting 10/02/2023 until 10/31/2024 [facility] Work Phone: Comment on above: 1 Occurrences starting 10/02/2023 until 10/31/2024 CT Abdomen and Pelvi s W contrast IV CT ABD/PEL W IVCON Radiology Routine Cancer of transverse colon (HCC) Lung nodules Metastases to the liver (HCC) 01/07/2024 11:54 AM EST [facility] Work Phone: CT Abdomen and Pelvi s W contrast IV CT ABD/PEL W IVCON Radiology Routine Cancer of transverse colon (HCC) Metastases to the liver (HCC) 07/16/2024 3:16 PM EDT [facility] Work Phone: CT Chest W contrast IV CT CHEST W IVCON Radiology Routine Lung nodules Cancer of transverse colon (HCC) Metastases to the liver (HCC) 03/30/2023 10:47 AM EST [facility] Work Phone: End: 05-05-2024 CT Chest W contrast IV CT CHEST W IVCON Radiology Routine Cancer of transverse colon (HCC) Lung nodules Metastases to the liver (HCC) 1 Occurrences starting 04/06/2023 until 05/05/2024 [facility] Work Phone: Comment on above: 1 Occurrences starting 04/06/2023 until 05/05/2024 CT Chest W contrast IV CT CHEST W IVCON Radiology Routine Cancer of transverse colon (HCC) Lung nodules Metastases to the liver (HCC) 07/06/2023 2:41 PM T [facility] End: 10-31-2024 CT Chest W contrast IV CT CHEST W IVCON Radiology Routine Cancer of transverse colon (HCC) Lung nodules Metastases to the liver (HCC) 1 Occurrences starting 10/02/2023 until 10/31/2024 [facility] Comment on above: 1 Occurrences starting 10/02/2023 until 10/31/2024 CT Chest W contrast IV CT CHEST W IVCON Radiology Routine Cancer of transverse colon (HCC) Lung nodules Metastases to the liver (HCC) 01/07/2024 11:54 AM [facility] CT Chest W contrast IV CT CHEST W IVCON Radiology Routine Cancer of transverse colon (HCC) Metastases to the liver (HCC) 07/16/2024 3:16 PM T [facility] End: 12-31-2022 CT CHEST W IVCON CT CHEST W IVCON Radiology Routine Malignant neoplasm of transverse colon (HCC) Metastases to the liver (HCC) Lung nodules 1 Occurrences starting 12/01/2021 until 12/31/2022 [facility] Work Phone: Comment on above: 1 Occurrences starting 12/01/2021 until 12/31/2022 End: 05-03-2023 CT CHEST W IVCON CT CHEST W IVCON Radiology Routine Malignant neoplasm of transverse colon (HCC) Metastases to the liver (HCC) Lung nodules 1 Occurrences starting 04/03/2022 until 05/03/2023 [facility] Work Phone: Comment on above: 1 Occurrences starting 04/03/2022 until 05/03/2023 End: 11-04-2023 CT CHEST W IVCON CT CHEST W IVCON Radiology Routine Malignant neoplasm of transverse colon (HCC) Metastases to the liver (HCC) Lung nodules 1 Occurrences starting 10/05/2022 until 11/04/2023 [facility] Work Phone: Comment on above: 1 Occurrences starting 10/05/2022 until 11/04/2023 CT CHEST W IVCON CT CHEST W IVCO N Radiology Routine Malignant neoplasm of transverse colon (HCC) Metastases to the liver (HCC) Lung nodules 01/04/2023 11:20 AM EST [facility] Work Phone: End: 02-09-2024 CT CHEST W IVCON CT CHEST W IVCON Radiology Routine Lung nodules Cancer of transverse colon (HCC) Metastases to the liver (HCC) 1 Occurrences starting 01/10/2023 until 02/09/2024 [facility] Work Phone: Comment on above: 1 Occurrences starting 01/10/2023 until 02/09/2024 Ct thorax w/contrast material CT CHEST W IVCON Radiology Routine 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 to the liver (HCC) Lung nodules 07/26/2021 11:03 AM EDT [facility] Work Phone: End: 06-19-2024 DBT Breast - bilateral screening TRENT SCREENING W LFY Radiology Routine Encounter for screening mammogram for malignant neoplasm of breast Mammographic heterogeneous density, bilateral breasts 1 Occurrences starting 05/22/2023 until 06/19/2024 [facility] Work Phone: Comment on above: 1 Occurrences starting 05/22/2023 until 06/19/2024 End: 06-20-2022 EGD DIAGNOSTIC EGD DIAGNOSTIC Endoscopy Routine LUQ abdominal pain 1 Occurrences starting 06/20/2021 until 06/20/2022 [facility] Work Phone: Comment on above: 1 Occurrences starting 06/20/2021 until 06/20/2022 End: 11-28-2024 EGD DIAGNOSTIC EGD DIAGNOSTIC Endoscopy Routine Nausea 1 Occurrences starting 11/29/2023 until 11/28/2024 [facility] Work Phone: Comment on above: 1 Occurrences starting 11/29/2023 until 11/28/2024 Endometrial bx w/wo endocervix bx w/o dilat spx ENDOMETRIAL BIOPSY Procedures Routine Vaginal discharge PMB (postmenopausal bleeding) Ordered: 12/14/2022 [facility] Work Phone: Comment on above: Ordered: 12/14/2022 End: 11-28-2024 Flexible sigmoidoscopy study COLONOSCOPY DIAGNOSTIC Endoscopy Routine Change in bowel habits History of colon cancer 1 Occurrences starting 11/29/2023 until 11/28/2024 [facility] Comment on above: 1 Occurrences starting 11/29/2023 until 11/28/2024 End: 12-09-2022 Hemoglobin A1c in Blood HGB A1C Lab Routine 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) Every 3 months for 24 Occurrences starting 12/09/2021 until 12/09/2022 [facility] Work Phone: Comment on above: Every 3 months for 24 Occurrences starti ng 12/09/2021 until 12/09/2022 End: 06-17-2023 Hemoglobin A1c in Blood HGB A1C Lab Routine 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) Every 3 months for 24 Occurrences starting 06/16/2022 until 06/17/2023 [facility] Work Phone: Comment on above: Every 3 months for 24 Occurrences starti ng 06/16/2022 until 06/17/2023 Hemoglobin A1c in Blood HEMOGLOB IN A1C Lab Routine Type 2 diabetes mellitus with diabetic neuropathy, with long-term current use of insulin (HCC) 07/16/2024 1:01 PM EDT [facility] Work Phone: Hemoglobin A1c/Hemoglobin.total in Blood HEMOGLOBIN A1C (POC) Lab Routine Type 2 diabetes mellitus with diabetic neuropathy, with long-term current use of insulin (HCC) Ordered: 09/06/2021 [facility] Work Phone: Comment on above: Ordered: 09/06/2021 Hemoglobin A1c/Hemoglobin.total in Blood HEMOGLOBIN A1C (POC) Lab Routine 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) Ordered: 12/09/2021 [facility] Work Phone: Comment on above: Ordered: 12/09/2021 Hepatic function 200 0 panel - Serum or Plasma HEPATIC FUNCTION PNL Lab Routine 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) Metastases to the liver (HCC) Lung nodules 12/01/2021 11:04 AM EDT [facility] Work Phone: Hepatic function 200 0 panel - Serum or Plasma HEPATIC FUNCTION PNL Lab Routine Malignant neoplasm of transverse colon (HCC) Metastases to the liver (HCC) Lung nodules 04/03/2022 1:17 PM EST [facility] Work Phone: Lipid 1996 panel - S jaquan or Plasma LIPID PANEL BASIC Lab Routine Type 2 diabetes mellitus with stage 3 chronic kidney disease, with long-term current use of insulin (HCC) 12/01/2021 11:04 AM EDT [facility] Work Phone: End: 12-09-2022 Lipid 1996 panel - Serum or Plasma LIPID PANEL BASIC Lab Routine 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) Every 6 months for 12 Occurrences starting 12/09/2021 until 12/09/2022 [facility] Work Phone: Comment on above: Every 6 months for 12 Occurrences starti ng 12/09/2021 until 12/09/2022 End: 06-17-2023 Lipid 1996 panel - Serum or Plasma LIPID PANEL BASIC Lab Routine 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) Every 6 months for 12 Occurrences starting 06/16/2022 until 06/17/2023 [facility] Work Phone: Comment on above: Every 6 months for 12 Occurrences starti ng 06/16/2022 until 06/17/2023 End: 11-12-2022 LUNG DIFFUSION CAPACITY (DLCO) LUNG DIFFUSION CAPACITY (DLCO) PFT Routine COPD (chronic obstructive pulmonary disease) with chronic bronchitis (HCC) 1 Occurrences starting 10/13/2021 until 11/12/2022 [facility] Work Phone: Comment on above: 1 Occurrences starting 10/13/2021 until 11/12/2022 End: 02-21-2025 MG stereo Guidance for biopsy of Breast - right TRENT STEREO BX BREAST RIGHT Radiology Routine History of breast cancer Metastases to the liver (HCC) Cancer of transverse colon (HCC) 1 Occurrences starting 01/24/2024 until 02/21/2025 [facility] Work Phone: Comment on above: 1 Occurrences starting 01/24/2024 until 02/21/2025 End: 02-27-2025 MG stereo Guidance for biopsy of Breast - right TRENT STEREO BX BREAST RIGHT Radiology Routine Abnormal finding on radiology exam 1 Occurrences starting 01/29/2024 until 02/27/2025 [facility] Work Phone: Comment on above: 1 Occurrences starting 01/29/2024 until 02/27/2025 End: 05-07-2023 Mri brain brain stem w/o w/contrast material MRI BRAIN WO/W IVCON Radiology STAT Double vision Dizziness Vertigo Intractable headache, unspecified chronicity pattern, unspecified headache type Thunderclap headache H/O colon cancer, stage IV 1 Occurrences starting 04/07/2022 until 05/07/2023 [facility] Work Phone: Comment on above: 1 Occurrences starting 04/07/2022 until 05/07/2023 End: 11-12-2022 PAP TITRATION PSG (CPAP, BIPAP, ASV) PAP TITRATION PSG (CPAP, BIPAP, ASV) Procedures Routine SHILPA (obstructive sleep apnea) 1 Occurrences starting 10/13/2021 until 11/12/2022 [facility] Work Phone: Comment on above: 1 Occurrences starting 10/13/2021 until 11/12/2022 Patient Education [facility] Work Phone: [facility] referral [facility] Work Phone: End: 10-13-2022 Polysomnogram POLYSOMNOGRAM (PSG) Procedures Routine SHILPA (obstructive sleep apnea) 1 Occurrences starting 10/13/2021 until 10/13/2022 [facility] Work Phone: Comment on above: 1 Occurrences starting 10/13/2021 until 10/13/2022 Screening mammograph y bi 2-view breast inc cad [facility] Work Phone: Comment on above: Ordered: 05/27/2021 End: 11-12-2022 SPIROMETRY BASELINE ONLY SPIROMETRY BASELINE ONLY PFT Routine COPD (chronic obstructive pulmonary disease) with chronic bronchitis (HCC) 1 Occurrences starting 10/13/2021 until 11/12/2022 [facility] Work Phone: Comment on above: 1 Occurrences starting 10/13/2021 until 11/12/2022 SURGICAL PATHOLOGY [facility] Work Phone: Comment on above: Release Upon Ordering for 1 Occurrences starting 06/21/2021, 1 completed SURGICAL PATHOLOGY SURGICAL PATH OLOGY Lab Routine Vaginal discharge PMB (postmenopausal bleeding) 12/14/2022 12:57 PM EST [facility] Work Phone: SURGICAL PATHOLOGY [facility] Work Phone: Comment on above: Release Upon Ordering for 1 Occurrences starting 01/09/2024, 1 completed End: 12-09-2022 Thyrotropin [Units/volume] in Serum or Plasma TSH BLD Lab Routine 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) Every 3 months for 24 Occurrences starting 12/09/2021 until 12/09/2022 [facility] Work Phone: Comment on above: Every 3 months for 24 Occurrences starti ng 12/09/2021 until 12/09/2022 End: 06-17-2023 Thyrotropin [Units/volume] in Serum or Plasma TSH BLD Lab Routine 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) Every 3 months for 24 Occurrences starting 06/16/2022 until 06/17/2023 [facility] Work Phone: Comment on above: Every 3 months for 24 Occurrences starti ng 06/16/2022 until 06/17/2023 Tissue Pathology bio psy report [facility] Work Phone: Comment on above: Release Upon Ordering for 1 Occurrences starting 04/03/2024, 1 completed End: 01-13-2024 Us transvaginal US FEMALE PELVIS TRANSVAG Radiology Routine Vaginal discharge PMB (postmenopausal bleeding) 1 Occurrences starting 12/14/2022 until 01/13/2024 [facility] Work Phone: Comment on above: 1 Occurrences starting 12/14/2022 until 01/13/2024 Us transvaginal US FEMALE PELVIS TRANSVAG Radiology Routine Vaginal discharge PMB (postmenopausal bleeding) 12/15/2022 3:34 PM EST [facility] Work Phone: [facility] Immunizations Immunization Date Immunization Notes Care Provider Mihir rubio 10-25-2023 influenza, high dose seasonal, preservative-free Estefani Older CASH ANALYST.ADMINISTRATIVE PROCESSOR Work Phone: [facility] 10-25-2023 influenza virus vacc ine, unspecified formulation Yasemin Connors MD Work Phone: [facility] 12-11-2022 influenza (HD-IIV4) vaccine, age 65+ yr, high dose, quadrivalent, PF (FLUZONE HIGH-DOSE) Estefani Older CASH ANALYST.ADMINISTRATIVE PROCESSOR Work Phone: [facility] 12-11-2022 influenza virus vacc ine, unspecified formulation Yasemin Connors MD Work Phone: [facility] 12-09-2021 influenza, high-dose , quadrivalent vaccine (FLUZONE HIGH DOSE QUADRIVALENT) Yasemin Connors MD Work Phone: [facility] Work Phone: 12-09-2021 influenza virus vacc ine, unspecified formulation [facility] Work Phone: [facility] 12-06-2020 influenza, high-dose , quadrivalent vaccine (FLUZONE HIGH DOSE QUADRIVALENT) [facility] Work Phone: [facility] Work Phone: 11-11-2020 zoster vaccine recombinant [facility] Work Phone: [facility] Work Phone: 09-01-2020 zoster vaccine recombinant [facility] Work Phone: [facility] Work Phone: 12-18-2019 influenza, high-dose , quadrivalent vaccine (FLUZONE HIGH DOSE QUADRIVALENT) [facility] Work Phone: [facility] 12-18-2019 zoster vaccine recombinant [facility] Work Phone: [facility] Work Phone: 12-16-2018 influenza, high dose seasonal, preservative-free [facility] Work Phone: [facility] 03-13-2018 influenza, high dose seasonal, preservative-free [facility] Work Phone: [facility] Work Phone: 03-09-2017 influenza, high dose seasonal, preservative-free [facility] Work Phone: [facility] Work Phone: 11-10-2015 influenza, high dose seasonal, preservative-free [facility] Work Phone: [facility] Work Phone: 01-25-2015 pneumococcal polysaccharide vaccine, 23 valent [facility] Work Phone: [facility] Work Phone: 12-18-2014 influenza, high dose seasonal, preservative-free [facility] Work Phone: [facility] 01-26-2014 pneumococcal conjuga te vaccine, 13 valent [facility] Work Phone: [facility] 11-19-2013 influenza, injectabl e, quadrivalent, preservative free Dr. Yasemin Connors Work Phone: [facility] 11-19-2013 influenza, seasonal, injectable [facility] 11-19-2013 influenza, seasonal, injectable, preservative free [facility] Work Phone: [facility] Work Phone: 11-30-2012 influenza virus vacc ine, unspecified formulation [facility] Work Phone: [facility] 11-11-2011 influenza virus vacc ine, unspecified formulation [facility] Work Phone: [facility] 01-16-2011 zoster vaccine, live [facility] Work Phone: [facility] 11-26-2010 influenza virus vacc ine, unspecified formulation [facility] Work Phone: [facility] 09-09-2010 tetanus toxoid, redu anupam diphtheria toxoid, and acellular pertussis vaccine, adsorbed [facility] Work Phone: [facility] 11-04-2009 influenza virus vacc ine, unspecified formulation [facility] Work Phone: [facility] Work Phone: 12-17-2008 novel influenza-H1N1 -09, all formulations [facility] Work Phone: [facility] 11-24-2008 influenza virus vacc ine, unspecified formulation [facility] Work Phone: [facility] 11-26-2007 influenza virus vacc ine, unspecified formulation [facility] Work Phone: [facility] 11-26-2007 pneumococcal polysaccharide vaccine, 23 valent [facility] Work Phone: [facility] 02-09-2006 pneumococcal conjuga te vaccine, 7 valent [facility] Work Phone: [facility] Work Phone: 12-07-2005 influenza virus vacc ine, unspecified formulation [facility] Work Phone: [facility] Work Phone: Payers Date Payer Category Payer Self-pay [id number] 2021 Medicare [employer] MEDICARE A ETNA MEDICARE PPO [id number] 2021-Present [phone] [address] [place] [address] PPO [id number] 2021 Medicare [employer] MEDICARE A ETNA MEDICARE PPO [id number] 2021-Present [phone] [address] [place] [address] PPO [id number] 2021 Medicare (Managed Care) [employer] [place] [id number] 2016 Private Health Insurance 101 [id number] Unknown [id number] Unknown [id number] Unknown [id number] Unknown [id number] Unknown [id number] Unknown [id number] Unknown [id number] Unknown [id number] Social History Date Type Detail Facility Start: 05-14-2018 End: 10-13-2021 Tobacco smoking status NHIS Never smoked tobacco [facility] Work Phone: Start: 04-07-2021 End: 12-18-2023 Alcohol intake Current non-drinker of alcohol (finding) [facility] Start: 06-21-2020 End: 04-23-2022 History SDOH Alcohol Frequency 1 [facility] Start: 06-21-2020 End: 04-23-2022 History SDOH Alcohol Std Drinks 98 [facility] Start: 06-21-2020 End: 04-23-2022 History SDOH Social Connections Phone 5 [facility] Start: 06-21-2020 End: 04-23-2022 History SDOH Social Connections Get Together 2 [facility] Start: 06-21-2020 End: 04-23-2022 History SDOH Social Connections Living 4 [facility] Start: 06-21-2020 End: 04-23-2022 History SDOH Physical Activity DPW 0 [facility] Start: 06-21-2020 Education 12 [facility] Start: 05-14-2018 End: 09-08-2022 Tobacco Comment Household ETS for 50 years. [facility] Start: 1950 Sex Assigned At Female [facility] Start: 04-24-2021 End: 12-09-2021 Exposure to SARS-CoV-2 (event) Not sure [facility] Start: 10-15-2020 End: 01-12-2023 Tobacco smoking status NHIS Unknown if ever smoked [facility] Start: 01-14-2020 Secondhand [facility] Start: 05-14-2018 End: 10-13-2021 Tobacco use and exposure Smokeless tobacco non-user [facility] Work Phone: Start: 04-22-2022 End: 06-09-2022 History of Social function [facility] Start: 04-22-2022 End: 06-09-2022 Social connection and isolation panel [facility] Start: 01-07-2012 How often do you attend baptist or episcopalian services? Patient refused [facility] Do you belong to any clubs or organizations such as baptist groups, unions, fraternal or athletic groups, or school groups? Yes [facility] Are you now , , , , never or living with a partner? [facility] How often to you hav e a drink containing alcohol? Never [facility] Do you feel stress - tense, restless, nervous, or anxious, or unable to sleep at night because your mind is troubled all the time - these days [OSQ] Not at all [facility] (I/We) worried wheth er (my/our) food would run out before (I/we) got money to buy more. Never true [facility] In the past 12 month s, was there a time when you were not able to pay the mortgage or rent on time? No [facility] Start: 03-04-2020 Gender identity Identifies as female gender (finding) [facility] Start: 03-04-2020 Sexual orientation Heterosexual (finding) [facility] Start: 05-10-2014 None [facility] Start: 05-10-2014 With Family [facility] Do you feel stress - tense, restless, nervous, or anxious, or unable to sleep at night because your mind is troubled all the time - these days [OSQ] Only a little [facility] Start: 01-17-2024 End: 08-21-2024 Alcoholic beverage intake [facility]-drinker (finding[facility] Start: 05-30-2024 Sex Female (finding) [facility] Procedure Code Equipment Code Equipment Origin al Text Equipment Identifier Dates Vivian Small ri 8fr Plastic Polyurethane Implantable Infusion - [id number] Start: 03-03-2020 [id number], [id number], [id number], [id number], [id number], [id number] Start: 06-22-2020 End: 11-05-2023 Comment on above: TEST ONCE DAILY Use one needle per d ose. 3 per day. Test blood sugar(s) 1 daily. Dx: Type 2 DM - Controlled E11.9 Insulin: No Test blood sugar(s) 4 times daily. Dx: Type 2 DM - Uncontrolled E11.65 Insulin: Yes use 1 TEST STRIP to TEST BLOOD SUGAR once daily Stereo Clip [id number] Start: 04-03-2024 Diclofenac-Hyalu belen ate-Niacin 30 GM gel Start: 01-14-2020 End: 10-20-2021 Diclofenac-Hyalu belen ate-Niacin 30 GM gel Start: 01-14-2020 End: 10-20-2021 Functional Status Date Assessment Result Facility 04-09-2022 Are you deaf, or do you have serious difficulty hearing No 04/09/2022 4:13 PM Paula Mahoney, ELAINE No [facility] 04-09-2022 Are you blind, or do you have serious difficulty seeing, even when wearing glasses Yes 04/09/2022 4:13 PM Paula Mahoney, ELAINE Yes [facility] 04-09-2022 Do you have serious difficulty walking or climbing stairs No 04/09/2022 4:13 PM Paula Mahoney, ELAINE No [facility] 04-09-2022 Do you have difficul ty dressing or bathing No 04/09/2022 4:13 PM Paula Mahoney, ELAINE No [facility] 04-09-2022 Because of a physica l, mental, or emotional condition, do you have difficulty doing errands alone such as visiting a physician's office or shopping Yes 04/09/2022 4:13 PM Paula Mahoney RN Yes [facility] Mental Status Date Assessment Result Facility 04-09-2022 Because of a physica l, mental, or emotional condition, do you have serious difficulty concentrating, remembering, or making decisions No 04/09/2022 4:13 PM Paula Mahoney RN No [facility] 02-22-2022 Cognitive function Level Of Cons ciousness Awake;Alert;Appropriate;Fol lows Commands [facility] Work Phone: Clinical Notes 12-02-2015 to 10-13-2024 Geneva Ramos APRN.MARGO - 10/13/2024 12:59 PM EDTJesusita Javed - 09/25/2024 12:45 PM Shantell Wang MD - 08/21/2024 2:15 PM EDGuillermina Reyes RT(Kehinde) - 07/16/2024 2:20 PM EDT Note Date & Type Note Facility 10-13-2024 History of Present illness Narrative Chief Complaint Patient presents with: Established Patient HPI: Saeid Urbina is a 73 year old female who presents here today for follow up colon cancer. Per Dr. 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 Patient developed symptoms of dyspepsia including upper abdominal discomfort and postprandial nausea. She also had early satiety and had been noted to have weight loss over the preceding 6 months. She underwent a colonoscopy and was observed to have a near obstructing lesion in the mid transverse colon highly suspicious for malignancy. The scope could not be advanced past this lesion. A clip was placed. Biopsies were performed but evidently nondiagnostic. CT A/P 01/19/2020: Liver: No mass. Biliary: The gallbladder is absent. There is mild dilation of the common bile duct/common hepatic duct. Spleen: No mass. No splenomegaly. Pancreas: No mass or duct dilation. Adrenals: No mass. Kidneys: 2-3 mm tiny attenuations in the bilateral kidneys, too small to progress. There appear to be a few parapelvic cyst. No hydronephrosis. GI tract: A 3 cm bowel wall thickening with narrowing of the lumen noted in the transverse colon, in appearance of apple core, concerning for malignancy. No bowel obstruction. Some fecal retention is noted. Lymph nodes: No abdominal or pelvic lymphadenopathy. Mesentery/Peritoneum: No ascites or mass or free abdominal air. Retroperitoneum: No mass. Vasculature: The celiac axis and SMA are patent. The portal vein and branches, splenic vein, SMV, and hepatic veins are patent. Pelvis: No mass, ascites or fluid collection. Bones/Soft Tissues: A 2 cm hyperdensity noted in the right anterior abdominal wall, likely presenting injection granuloma. There is a 2.5 x 3.8 cm fat-containing paraumbilical hernia. The spine shows degenerative changes with multilevel disc space narrowing. No definite destructive bony lesions seen. Lower thorax: No pleural effusions. Mild atelectatic changes noted in the right middle lobe and lingula. Field Account Director (topogram) images: No additional findings. Patient was admitted to [facility] on 01/26/2020. She underwent a laparoscopic colectomy partial right hemicolectomy and laparoscopic liver biopsy on the same day. Pathology: FINAL DIAGNOSIS 1. Right colon, terminal ileum, and appendix, extended right hemicolectomy (A): - Adenocarcinoma involving transverse colon and extending into pericolonic soft tissue, margins negative (see synoptic). - Metastatic adenocarcinoma in one lymph node (02/18). 2. Liver, biopsy (B): Metastatic adenocarcinoma, consistent with colorectal origin. COMMENT Immunohistochemistry was performed on the liver biopsy, and tumor cells strongly express CDX2 and CK7, while CK20 is negative. The features are consistent with metastatic spread of the patient's colorectal adenocarcinoma. SYNOPTIC REPORT OF MAE PATHOLOGIC FINDINGS EXTENDED RIGHT COLON: COLON AND RECTUM:RESECTION, INCLUDING TRANSANAL DISK EXCISION OF RECTAL NEOPLASMS WORKSHEET: Procedure: Right hemicolectomy Tumor Site: Transverse colon Tumor Size: Greatest dimension: 3.5 cm Macroscopic Tumor Perforation: Not identified Macroscopic Intactness of Mesorectum: Not applicable Histologic Type: Adenocarcinoma Histologic Grade: G2: Moderately differentiated Tumor Extension: Tumor invades through the muscularis propria into pericolorectal tissue Margins: All margins are uninvolved by invasive carcinoma, high-grade dysplasia, intramucosal adenocarcinoma, and adenoma Margins examined: proximal, distal, radial, mesenteric Proximal Margin: Uninvolved by invasive carcinoma Distal Margin: Uninvolved by invasive carcinoma Circumferential Radial Margin: Uninvolved by invasive carcinoma Mesenteric Margin: Uninvolved by invasive carcinoma Treatment Effect: No known presurgical therapy Lymphovascular Invasion: Present Perineural Invasion: Present Type of Polyp in which Invasive Carcinoma Arose: Tubular adenoma Tumor Deposits: Not identified Regional Lymph Nodes: Number of nodes involved: 1 Number of nodes examined: 14 Pathologic Stage Classification (pTNM,AJCC 8th ed) TNM Descriptors: Not applicable Pathologic Staging (pTNM): pT3: Tumor invades through the muscularis propria into pericolorectal tissues Regional Lymph Nodes (pN): pN1a: One regional lymph node is positive Distant Metastasis (pM): pM1: Metastasis to one or more distant sites or organs or peritoneal metastasis is identified Had MRI of the liver as well as CT scan of chest, abdomen pelvis. Underwent PET scan which suggested liver only metastasis. Laparoscopic microwave ablation of liver metastasis under ultrasound guidance on 04/23/2020. Previous therapy: 1) Adjuvant FOLFIRI. Completed 12 cycles as of 01/24/2021. Had egd/colonoscopy in June [address] Pérez. Next due in 3 years. Colonoscopy done 2023. Next due in 5 years. No new concerns today. Appetite:"Good. I eat like a horse. I've tried to cut back to lose weight." Wt. up 5# since last visit. Energy level:"Ok." Denies fevers or recent illness. Resp:denies cough or sob Cardiac:denies chest pain/palpitations GI:denies abd pain, occ. has nausea after meals, denies vomiting, moving bowels regularly :denies dysuria/hematuria Extrem:chronic hand/knee/low back pain-followed Dr. Wang and Dr. Brown pain mgmt. 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 Past medical history, appointments, medications, allergies reviewed. No changes. EXAM: BP 127/80 Pulse 88 Temp 37 C (98.6 F) (Temporal) Wt 93.9 kg (207 lb 0.2 oz) SpO2 96% BMI 37.86 kg/m APPEARANCE Well appearing, alert, in no acute distress, well-hydrated, well nourished. HEART RRR with normal S1 and S2, no murmurs LUNG clear to auscultation LYMPH NODES No cervical lymphadenopathy, No supraclavicular lymphadenopathy, and No axillary lymphadenopathy. ABDOMEN bowel sounds normoactive, soft, non-tender EXTREMITIES No edema NEURO Awake, alert and oriented x 3, using wheeled walker, and No involuntary motions. SKIN Skin color, texture, turgor normal, no suspicious rashes or lesions LABS: Latest Ref Rng 10/02/2023 04/08/2024 10/09/2024 WBC 3.70 - 11.00 k/uL 5.60 6.12 4.55 RBC 3.90 - 5.20 m/uL 4.22 4.15 4.21 Hemoglobin 11.5 - 15.5 g/dL 12.7 12.6 12.8 Hematocrit 36.0 - 46.0 % 38.4 37.9 38.3 MCV 80.0 - 100.0 fL 91.0 91.3 91.0 MCH 26.0 - 34.0 pg 30.1 30.4 30.4 MCHC 30.5 - 36.0 g/dL 33.1 33.2 33.4 RDW-CV 11.5 - 15.0 % 13.1 13.1 13.0 Platelet Count 150 - 400 k/uL 178 170 151 MPV 9.0 - 12.7 fL 10.5 10.8 10.5 Neut% % 64.2 58.9 56.1 Abs Neut (ANC) 1.45 - 7.50 k/uL 3.60 3.61 2.55 Lymph% % 21.1 26.5 25.9 Abs Lymph 1.00 - 4.00 k/uL 1.18 1.62 1.18 Cottle% % 10.9 10.5 14.3 Abs Cottle <0.87 k/uL 0.61 0.64 0.65 Eosin% % 2.0 1.8 1.5 Abs Eosin <0.46 k/uL 0.11 0.11 0.07 Baso% % 0.7 0.7 0.7 Abs Baso <0.11 k/uL 0.04 0.04 0.03 Immature Gran % % 1.1 1.6 1.5 IMMATURE GRANS (ABS) <0.10 k/uL 0.06 0.10 (H) 0.07 NRBC /100 WBC 0.0 0.0 0.0 Absolute nRBC <0.01 k/uL <0.01 <0.01 <0.01 DTYPE Auto Auto Auto Latest Ref Rng 04/08/2024 10/09/2024 Glucose 74 - 99 mg/dL 94 110 (H) BUN 7 - 21 mg/dL 34 (H) 20 Creatinine 0.58 - 0.96 mg/dL 0.94 0.93 Sodium 136 - 144 mmol/L 138 137 Potassium 3.7 - 5.1 mmol/L 4.4 4.4 Chloride 98 - 107 mmol/L 105 106 CO2 22 - 30 mmol/L 26 25 Anion Gap 8 - 15 mmol/L 7 (L) 6 (L) Calcium 8.5 - 10.2 mg/dL 9.9 10.0 eGFR >=60 mL/min/1.73m 63 64 Latest Ref Rng 03/03/2024 04/08/2024 10/09/2024 Albumin 3.9 - 4.9 g/dL 3.7 (L) 3.8 (L) 3.9 Bilirubin, Total 0.2 - 1.3 mg/dL 0.3 0.3 0.3 Bilirubin, Direct <0.3 mg/dL 0.1 0.1 0.1 Alkaline Phosphatase 34 - 123 U/L 98 96 85 AST 13 - 35 U/L 42 (H) 31 26 ALT 7 - 38 U/L 33 29 17 Protein, Total 6.3 - 8.0 g/dL 6.5 6.4 6.3 Latest Ref Rng 04/08/2024 07/16/2024 10/09/2024 CEA <=2.9 ng/mL 2.3 1.8 2.2 ASSESSMENT/PLAN: 1. Encounter for follow-up surveillance of colon cancer - ICD9: V67.9, V10.05, ICD10: Z08, Z85.[address] Vallejo's previous note 03/30/21: Assessment: -In summary the patient is a 70-year-old female who was diagnosed with metastatic adenocarcinoma the transverse colon after presenting with a several month history of early satiety and dyspepsia characterized by upper abdominal pain and postprandial nausea. Initial CT scan demonstrated an apple core filling defect in the transverse colon. During surgery, an approximate 1 cm nodule was appreciated on the liver. Biopsy tissue was consistent with metastatic adenocarcinoma the colon. CTs revealed a suspicious 8 x 6 mm KASHIF lung nodule. MRI suggested a single liver metastasis. Side branch pancreatic IPMNs. -Laparoscopic microwave ablation of liver metastasis under ultrasound guidance on 04/23/2020. -NRAS mutated. -MMR proficient. -HER2 negative. -She had pre-existing sensory neuropathy manifested as numbness in both toes and her ability to walk was compromised by chronic low back and knee pain--uses walker. -The 8 mm nodule in left upper lobe was suspicious but it was not a proven site of metastatic disease. SBRT could be considered for that at some point in the future. -Has now completed 12 cycles of adjuvant FOLFIRI. -Reviewed the results of the CT scans in detail. Stable pulmonary nodules. Unchanged 8 mm nodule in left adrenal gland dating back to 2009. Stable 1 cm short axis lymph node in the portacaval area. Diffusely hypoattenuating area of capsular retraction with heterogeneous enhancement and decreasing peripheral hyperdensity in keeping with posttreatment changes in the liver. Plan: -Due for colonoscopy. -Labs/CTs then OV in about 4 months. -Continue management under chronic pain management for arthritis and chronic low back pain. - No concerning findings on exam. - Reviewed labs with pt. - Colonoscopy due in 5 years-Dr. Pérez. - Follow up with PCP/Pulm/pain mgmt. - CT chest/abd/pelvis due in Jan. - Needs port flushes. - Follow up in 6 months CBC/BMP/LFT's/CEA. - Pt. aware to call office with any questions/concerns. The patient indicates understanding of these issues and agrees with the plan. All documentation from previous visit of 04/08/24-Dr. Vallejo/myself was copied and pasted, documentation has been reviewed and edited as necessary for today's visit. Geneva Ramos APRN.ADMINISTRATIVE PROCESSOR documented in this encounter [facility] 09-25-2024 History of Present illness Narrative POPULATION HEALTH NAVIGATION OUTREACH Action/ - HCC Wellness: Overdue since 02/06/2024 No outreach due to patient having cancer tx Reason for Outreach Care Gap/HCC or Scheduling Wellness Visits Care Gaps due: Medicare Annual Wellness Visit Patient Contacted: Patient in other facility or Active Cancer Treatment - End Outreach Navigation Signature: Jesusita Javed September 25, 2024 12:45 PM documented in this encounter [facility] 08-21-2024 History of Present illness Narrative Images from the original note were not included. . [facility] [place] Note Patient name: Saeid Urbina PCP: Yasemin Connors MD CC: Follow-up of obstructive lung disease HPI: Saeid Urbina 73 year old female non-smoker with PMH significant for obesity, HLD, SHILPA, DM, CKD, HTN, GERD, CHF, RA, mild COPD due to secondhand smoke exposure, triple negative breast cancer 2010, metastatic colon cancer to the liver 2019, lung nodule presenting for follow-up. She is supposed to be on Stiolto Respimat but cannot afford the inhaler and does not qualify for assistance. At her last office visit, her CT of the chest showed stability of her semisolid left upper lobe nodule and her most recent CT of the chest shows continued stability (lung nodule being followed by oncology). From a pulmonary standpoint she states she has been doing well. She has not had a recent upper respiratory infections. She denies any significant dyspnea, cough, wheezing, or chest pain. She has rare need for her albuterol. At her last office visit she had a bout of C. difficile colitis and March. DATA: Imaging / Diagnostic Studies: DATE OF EXAM: Jul 16 2024 3:16PM [facility] 0539 - CT CHEST W IVCON / IMPRESSION: 1. No convincing evidence of recurrent or metastatic colon cancer in the chest, abdomen, or pelvis. 2. Stable pulmonary nodules. 3. Hepatic steatosis. 2020: I personally reviewed the images which show stability of left upper lobe nodule PAST MEDICAL HISTORY Diagnosis Date Abdominal pain 2022 Arthritis Benign neoplasm of colon Benign polyps. 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 Lumpectomy, completed radiation 06/27/10. No chemotherapy. Myalgia and myositis, unspecified Obesity, unspecified Obesity Obstructive sleep apnea syndrome 05/24/2015 No longer needs CPAP Pain in joint of right shoulder 09/03/2014 Plantar fascial fibromatosis Primary hypertension Seborrheic dermatitis, unspecified Shortness of breath Type II or unspecified type diabetes mellitus without mention of complication, not stated as uncontrolled Unspecified hemorrhoids without mention of complication Hemorrhoids Urinary incontinence overactive bladder ALLERGIES Allergen Reactions Ciprofloxacin Hives Claritin [Loratadin* Intolerance Dicyclomine Other: See Comments, Unknown E-Mycin [Erythromyc* GI Upset, Itching Gemtesa [Vibegron] Swelling Facial swelling Macrobid [Nitrofura* Swelling, Itching Myrbetriq [Mirabegr* Swelling Naproxen Swelling Feet swelled in 2 days Oruvail [Ketoprofen] Rash Relafen [Nabumetone] swelling amLODIPine (NORVASC) 10 mg tablet Take 1 tablet by mouth once daily. metoprolol succinate ER (TOPROL XL) 50 mg 24 hr tablet Take 1 tablet by mouth once daily. valsartan (DIOVAN) 160 mg tablet Take 1 tablet by mouth once daily. Cholecalciferol, Vitamin D3, 25 mcg (1,000 unit) cap Take 1 capsule by mouth once daily. omeprazole (PRILOSEC) 40 mg capsule Take 1 capsule by mouth once daily. lactobacillus comb no.10 (PROBIOTIC) 20 billion cell cap Take 1 capsule by mouth once daily. ondansetron orally disintegrating (ZOFRAN ODT) 4 mg disintegrating tablet Take 1 tablet by mouth every 6 hours as needed for nausea/vomiting. Fenofibrate (LOFIBRA) 54 mg tablet Take 1 tablet by mouth once daily. magnesium oxide (MAG-OX) 400 mg (241.3 mg magnesium) tablet Take 1 tablet by mouth once daily. blood sugar diagnostic (EnerkemUCH ULTRA TEST) test strip use 1 TEST STRIP to TEST BLOOD SUGAR once daily metFORMIN ER (GLUCOPHAGE XR) 500 mg 24 hr tablet Take 1 tablet by mouth daily with breakfast. albuterol HFA (PROVENTIL HFA, VENTOLIN HFA) 90 mcg/actuation inhaler Inhale 2 Puffs as instructed every 4 hours as needed. Lancets Test blood sugar(s) 4 times daily. Dx: Type 2 DM - Uncontrolled E11.65 Insulin: Yes (Patient taking differently: Test blood sugar(s) 4 times daily. Dx: Type 2 DM - Uncontrolled E11.65 Insulin: Yes Takes blood sugar once daily and as neeed) amitriptyline (ELAVIL) 50 mg tablet Take 50 mg by mouth daily at bedtime. furosemide (LASIX) 20 mg tablet Take 0.5 tablets by mouth once daily. insulin lispro (HUMALOG KWIKPEN INSULIN) 100 unit/mL Sliding scale during chemotherapy for glucose readings with meals 151 - 200 2 units 201 - 250 4 units 251 - 300 6 units 301 - 350 8 units 351-400 10 units >400 contact office insulin needles, DISPOSABLE, (PEN NEEDLE) 31 gauge x 5/16" Use one needle per dose. 3 per day. aspirin, enteric coated (ASPIRIN, ENTERIC COATED) 81 mg EC tablet Take 1 tablet by mouth once daily. diphenhydrAMINE (BENADRYL) 25 mg capsule Take 25 mg by mouth every 6 hours as needed. (Patient taking differently: Take 25 mg by mouth every 6 hours as needed.) acetaminophen (TYLENOL) 500 mg tablet Take 500 mg by mouth every 8 hours as needed. diclofenac (VOLTAREN ARTHRITIS PAIN) 1 % topical gel Apply 2 g to affected area once daily. lancets (ONE TOUCH DELICA) 33 gauge Test blood sugar(s) 1 daily. Dx: Type 2 DM - Controlled E11.9 Insulin: No [DISCONTINUED] Omeprazole Magnesium (PRILOSEC OTC) 20 mg tablet Take 2 tablets by mouth once daily. hydrOXYchloroQUINE (PLAQUENIL) 200 mg tablet Take 200 mg by mouth once daily. [place]-3 Fatty Acids 500 mg cap Take 1 capsule by mouth once daily. morphine SR (MS CONTIN, ORAMORPH SR) 15 mg 12 hr tablet Take 15 mg by mouth two times a day. cyanocobalamin (VITAMIN B-12) 1,000 mcg tab Take 1,000 mcg by mouth once daily. FOLIC ACID 800 MCG TAB Take by mouth once daily. Social History Tobacco Use Smoking status: Never Smokeless tobacco: Never Tobacco comments: Household ETS for 50 years. Vaping Use Vaping status: Never Used Substance Use Topics Alcohol use: Not Currently Drug use: Never FAMILY HISTORY Problem Relation Age of Onset Diabetes Mother Colon Cancer Mother PASSED FROM THIS AT THE AGE OF 62 Heart Father HAD AN [place] IN MID TO LATE 50s, FROM THIS. other (Other) Sister MVA No Known Problems Sister Hypertension Sister Systemic Lupus Erythematosus Sister other (RHUMATOID ARTHRITIS) Sister SAME SISTER HYPERTENSION Cancer Brother Lymphoma. Cancer free for 10 years. Coronary Artery Disease Brother Stent other (Episodes of numbness) Brother having dx testing Colon Cancer Brother Bipolar disorder Daughter Arthritis Daughter Psoriactic other (Epilepsy) Daughter other (cerebral spinal fluid leak) Son other (colitis) Son Autism Grandchild Asthma No Family History Emphysema No Family History Blood Clots No Family History No PE. PAST SURGICAL HISTORY Procedure Laterality Date ADENOIDECTOMY PRIMARY <AGE 10 age 3 Adenoidectomy BX BREAST PERC NEED W/GUID 02/11/2010 U/S Needle core UOQ right breast bx BX/EXC LYMPH NODE OPEN DEEP AXILLARY NODE 03/16/2010 RIGHT - [facility] Dr. Dung Mayo CATH IMPL VASC ACCESS PORTAL 03/03/2020 DELIVERY ONLY , low cervical x4 CHOLECYSTECTOMY 01/11/1981 Cholecystectomy COLONOSCOPY 06/21/2021 , repeat in 3 years COLONOSCOPY 01/09/2024 COLONOSCOPY FLX DX W/COLLJ SPEC WHEN PFRMD 08/30/2001 Colonoscopy COLONOSCOPY FLX DX W/COLLJ SPEC WHEN PFRMD 07/17/2012 Colonoscopy COLONOSCOPY FLX DX W/COLLJ SPEC WHEN PFRMD 12/02/2015 Colonoscopy (Needs MAC next time) COLONOSCOPY GEN ANES 01/16/2020 COLONOSCOPY W/BIOPSY SINGLE/MULTIPLE 06/01/2006 EGD 01/16/2020 EGD 01/09/2024 EGD FLEX REMOVAL LESION(S) BY HOT BIOPSY FORCEPS 08/30/2001 EGD TRANSORAL BIOPSY SINGLE/MULTIPLE 06/01/2006 EGD TRANSORAL BIOPSY SINGLE/MULTIPLE 12/23/2009 EGD W/O [facility] SPEC VARICIES INJ 06/21/2021 EGD W/O [facility] SPEC VARICIES INJ 07/25/2022 ESOPHAGOGASTRODUODENOSCOPY TRANSORAL DIAGNOSTIC 12/02/2015 EGD IMAGING GUIDED RADIOFREQUENCY LIVER ABLATION 04/2020 ablation IR RADIO FREQUENCY ABLATION 11/2017 LAPAROSCOPIC HEMICOLECTOMY 01/26/2020 LIG/TRNSXJ FLP TUBE ABDL/VAG APPR UNI/BI Tubal ligation MASTECTOMY, PARTIAL 03/16/2010 RIGHT - [facility] Dr. Dung Mayo PREOP PLACEMENT NEEDLE LOC 03/16/2010 U/S wire loc UOQ right breast PULMONARY FUNCTION TEST 05/22/2005 SIGMOIDOSCOPY FLX DX W/COLLJ SPEC BR/WA IF PFRMD 04/06/1999 Sigmoidoscopy, flexible TONSILLECTOMY PRIMARY/SECONDARY <AGE 10 age 3 Tonsillectomy PMH, Social history, family history and surgical history reviewed and updated in EMR REVIEW OF SYSTEMS: CONSTITUTIONAL: No fevers, chills, nightsweats, unintended weight loss HEENT: Denies nasal congestion/sinus symptoms, allergy problems. CARDIOVASCULAR: No chest pain, palpitations, orthopnea. Edema PULM: See HPI GI: History of C. difficile colitis : Urinary incontinence NEURO: No new balance problems, peripheral weakness/paresthesias or numbness of concern. PHYSICAL EXAMINATION: BP 120/74 Pulse 64 Resp 16 Wt 203 lb (92.1kg) SpO2 94% General Appearance: Obese, elderly female, NAD. Skin: Skin color, texture, turgor normal, no suspicious rashes or lesions. Oropharynx: No oral lesions. Neck: No adenopathy, no masses. Lungs: Not labored, no wheezes, no crackles. Heart: RRR, systolic murmur at RUSB. Extremities: Edema, no clubbing. Assessment/Plan: COPD, mild -Mild COPD due to secondhand smoke exposure. She will continue with albuterol as needed Class 2 obesity -BMI 37 -Weight loss advised Lung nodule - 8 mm left upper lobe semisolid nodule stable since 2020 - Continued surveillance per oncology Shantell Lorenzana MD [facility] [place] documented in this encounter [facility] 08-09-2024 Telephone encounter Note Prescription Refill Information The patient has been identified by name and date of : Yes Caregiver verified no other encounters exist for this prescription request: Yes Caregiver confirmed with patient/requestor that no other refills are due, in the near future, with this provider at this time: Yes The last office visit in the department: 06/02/24 Does the patient have a future office visit with this provider/department: Yes 12/22/24 Requested Prescriptions Pending Prescriptions Disp Refills amLODIPine (NORVASC) 10 mg tablet 90 tablet 3 Sig: Take 1 tablet by mouth once daily. Sera Flor August 09, 2024 9:48 AM [facility] 08-09-2024 Miscellaneous Notes Prescription Refill Information The patient has been identified by name and date of : Yes Caregiver verified no other encounters exist for this prescription request: Yes Caregiver confirmed with patient/requestor that no other refills are due, in the near future, with this provider at this time: Yes The last office visit in the department: 06/02/24 Does the patient have a future office visit with this provider/department: Yes 12/22/24 Requested Prescriptions Pending Prescriptions Disp Refills amLODIPine (NORVASC) 10 mg tablet 90 tablet 3 Sig: Take 1 tablet by mouth once daily. Sera Flor August 09, 2024 9:48 AM documented in this encounter [facility] 07-16-2024 History of Present illness Narrative Radiology Service Progress Note PATIENT NAME: Saeid Urbina DATE OF SERVICE: July 16, 2024 TIME: 3:26 PM PATIENT IDENTITY VERIFICATION COMPLETED USING TWO (2) IDENTIFIERS: Name and Date of confirmed by patient verbally. FALL SCREENING: Has the patient had 2 falls in the last year or 1 fall with injury or currently using an Ambulatory Assistive Device (Walker, Cane, Wheelchair, Crutches, etc.)? No PATIENT GENDER DATA: Assigned female at . status: : No status: NO. PATIENT RELEVANT IMPLANT DATA REVIEWED: Yes PATIENT PRESENTS WITH AN IMPLANTABLE OR ATTACHED TILE SORTER: No RADIOLOGY DEPARTMENT: CT; Exam(s) Completed: Chest Abdomen Pelvis PERIPHERAL IV DATA: power port accessed by hemoc SIGNED BY: RT Farzana(R) July 16, 2024 3:26 PM documented in this encounter [facility] 07-16-2024 History of Present illness Narrative Patient is here for IVAD port flush/blood draw per Nursing [place] protocol. IVAD is located in left upper chest. Site cleansed with Chloraprep IVAD accessed with a #20 gauge 3/4" non-coring Gripper needle Flush with 5cc's Normal Saline. Blood Return: Good. 10 cc's blood aspirated and discarded. Blood drawn for Gold top. Flushed with: 20 ml Normal Saline. Non-coring needle left intact for further therapy. Opsite applied to puncture site. Site negative for redness, edema or tenderness. Patient tolerated procedure well. documented in this encounter [facility] 07-02-2024 Telephone encounter Note Called patient to inform her that since we have not seen her since 12/2023 she would need an office visit before we can prescribe a new order for diabetic shoes. Patient was offered an appointment. Patient declined. Patient states she will wait till er appointment in December. Mayra Paredes LPN [facility] Work Phone: 07-02-2024 Miscellaneous Notes Called patient to inform her that since we have not seen her since 12/2023 she would need an office visit before we can prescribe a new order for diabetic shoes. Patient was offered an appointment. Patient declined. Patient states she will wait till er appointment in December. Mayra Paredes LPN Patient calling in for new prescription for diabetic shoes to be sent to [facility]. Danii Toussaint LPN documented in this encounter [facility] 07-02-2024 Telephone encounter Note Patient calling in for new prescription for diabetic shoes to be sent to [facility]. Danii Toussaint LPN [facility] 06-02-2024 Instructions Estefani Willard APRN.MARGO - 06/02/2024 2:15 PM EDT Restart taking your furosemide as needed for swelling, especially if your left leg feels more swollen. Continue your current blood pressure and heart medications (amlodipine, metoprolol, and valsartan) as usual. Continue managing your diabetes with your sliding scale insulin dosing when your blood sugar is high and your metformin as prescribed. Keep taking your Plaquenil for rheumatoid arthritis as directed. Bring the printed hemoglobin A1c order with you when you have your blood work done at [facility] (to be completed about a week before your [facility] appointment with Dr. Singh). Attend your scheduled eye appointment in July. documented in this encounter [facility] 06-02-2024 History of Present illness Narrative CC: Patient presents with: Recheck: 3 month follow up HPI Saeid Urbina is a 73 year old female who presents today for routine follow up. Recording using Explorra software for draft documentation of the visit was discussed with the patient/authorized medical service representative; all questions welcomed and answered. Patient/authorized medical service representative agreed to proceed Hypertension and chronic CHF: - Home BP readings range from 120s-130s/70s. - Current medications: amlodipine, metoprolol, valsartan. - Furosemide taken PRN for edema; has not taken recently but reports swelling, especially in the left leg. - Denies chest pain palpitations or dyspnea. - Reports recurrent headaches above the left eye, particularly in the morning and late at night. This is chronic without change Diabetes Mellitus: - Home blood glucose readings range from 100s-130s. - Managed with metformin and sliding scale insulin (2 units for readings 150-200, 4 units for readings >200). - Uses insulin typically 1-2 times/month. - Denies hypoglycemic symptoms, polydipsia, polyphagia, or polyuria. - Reports regular bowel movements since C. diff infection in March. - Last eye exam was over a year ago; next appointment scheduled for July. Rheumatoid Arthritis: - Managed with Plaquenil. - Sees Dr. Buregss every 6 months, with blood work done prior to appointments. - Next appointment in July. REVIEW OF SYSTEMS See HPI PAST MEDICAL HISTORY Diagnosis Date Abdominal pain 2022 Arthritis Benign neoplasm of colon Benign polyps. 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 Lumpectomy, completed radiation 06/27/10. No chemotherapy. Myalgia and myositis, unspecified Obesity, unspecified Obesity Obstructive sleep apnea syndrome 05/24/2015 No longer needs CPAP Pain in joint of right shoulder 09/03/2014 Plantar fascial fibromatosis Primary hypertension Seborrheic dermatitis, unspecified Shortness of breath Type II or unspecified type diabetes mellitus without mention of complication, not stated as uncontrolled Unspecified hemorrhoids without mention of complication Hemorrhoids Urinary incontinence overactive bladder PAST SURGICAL HISTORY Procedure Laterality Date ADENOIDECTOMY PRIMARY <AGE 10 age 3 Adenoidectomy BX BREAST PERC NEED W/GUID 02/11/2010 U/S Needle core UOQ right breast bx BX/EXC LYMPH NODE OPEN DEEP AXILLARY NODE 03/16/2010 RIGHT - [facility] Dr. Dung Cebul CATH IMPL VASC ACCESS PORTAL 03/03/2020 DELIVERY ONLY , low cervical x4 CHOLECYSTECTOMY 01/11/1981 Cholecystectomy COLONOSCOPY 06/21/2021 , repeat in 3 years COLONOSCOPY 01/09/2024 COLONOSCOPY FLX DX W/COLLJ SPEC WHEN PFRMD 08/30/2001 Colonoscopy COLONOSCOPY FLX DX W/COLLJ SPEC WHEN PFRMD 07/17/2012 Colonoscopy COLONOSCOPY FLX DX W/COLLJ SPEC WHEN PFRMD 12/02/2015 Colonoscopy (Needs MAC next time) COLONOSCOPY GEN ANES 01/16/2020 COLONOSCOPY W/BIOPSY SINGLE/MULTIPLE 06/01/2006 EGD 01/16/2020 EGD 01/09/2024 EGD FLEX REMOVAL LESION(S) BY HOT BIOPSY FORCEPS 08/30/2001 EGD TRANSORAL BIOPSY SINGLE/MULTIPLE 06/01/2006 EGD TRANSORAL BIOPSY SINGLE/MULTIPLE 12/23/2009 EGD W/O BRSH SPEC VARICIES INJ 06/21/2021 EGD W/O BRSH SPEC VARICIES INJ 07/25/2022 ESOPHAGOGASTRODUODENOSCOPY TRANSORAL DIAGNOSTIC 12/02/2015 EGD IMAGING GUIDED RADIOFREQUENCY LIVER ABLATION 04/2020 ablation IR RADIO FREQUENCY ABLATION 11/2017 LAPAROSCOPIC HEMICOLECTOMY 01/26/2020 LIG/TRNSXJ FLP TUBE ABDL/VAG APPR UNI/BI Tubal ligation MASTECTOMY, PARTIAL 03/16/2010 RIGHT - [facility] Dr. Dung Mayo PREOP PLACEMENT NEEDLE LOC 03/16/2010 U/S wire loc UOQ right breast PULMONARY FUNCTION TEST 05/22/2005 SIGMOIDOSCOPY FLX DX W/COLLJ SPEC BR/WA IF PFRMD 04/06/1999 Sigmoidoscopy, flexible TONSILLECTOMY PRIMARY/SECONDARY <AGE 10 age 3 Tonsillectomy ALLERGIES Ciprofloxacin, Claritin [Loratadine], Dicyclomine, E-Mycin [Erythromycin], Gemtesa [Vibegron], Macrobid [Nitrofurantoin Monohyd/M-Cryst], Myrbetriq [Mirabegron], Naproxen, Oruvail [Ketoprofen], and Relafen [Nabumetone] MEDICATIONS metoprolol succinate ER (TOPROL XL) 50 mg 24 hr tablet Take 1 tablet by mouth once daily. valsartan (DIOVAN) 160 mg tablet Take 1 tablet by mouth once daily. Cholecalciferol, Vitamin D3, 25 mcg (1,000 unit) cap Take 1 capsule by mouth once daily. omeprazole (PRILOSEC) 40 mg capsule Take 1 capsule by mouth once daily. lactobacillus comb no.10 (PROBIOTIC) 20 billion cell cap Take 1 capsule by mouth once daily. ondansetron orally disintegrating (ZOFRAN ODT) 4 mg disintegrating tablet Take 1 tablet by mouth every 6 hours as needed for nausea/vomiting. Fenofibrate (LOFIBRA) 54 mg tablet Take 1 tablet by mouth once daily. magnesium oxide (MAG-OX) 400 mg (241.3 mg magnesium) tablet Take 1 tablet by mouth once daily. blood sugar diagnostic (KitBoost ULTRA TEST) test strip use 1 TEST STRIP to TEST BLOOD SUGAR once daily metFORMIN ER (GLUCOPHAGE XR) 500 mg 24 hr tablet Take 1 tablet by mouth daily with breakfast. albuterol HFA (PROVENTIL HFA, VENTOLIN HFA) 90 mcg/actuation inhaler Inhale 2 Puffs as instructed every 4 hours as needed. Lancets Test blood sugar(s) 4 times daily. Dx: Type 2 DM - Uncontrolled E11.65 Insulin: Yes (Patient taking differently: Test blood sugar(s) 4 times daily. Dx: Type 2 DM - Uncontrolled E11.65 Insulin: Yes Takes blood sugar once daily and as neeed) amLODIPine (NORVASC) 10 mg tablet Take 1 tablet by mouth once daily. amitriptyline (ELAVIL) 50 mg tablet Take 50 mg by mouth daily at bedtime. furosemide (LASIX) 20 mg tablet Take 0.5 tablets by mouth once daily. insulin lispro (HUMALOG KWIKPEN INSULIN) 100 unit/mL Sliding scale during chemotherapy for glucose readings with meals 151 - 200 2 units 201 - 250 4 units 251 - 300 6 units 301 - 350 8 units 351-400 10 units >400 contact office insulin needles, DISPOSABLE, (PEN NEEDLE) 31 gauge x 5/16" Use one needle per dose. 3 per day. aspirin, enteric coated (ASPIRIN, ENTERIC COATED) 81 mg EC tablet Take 1 tablet by mouth once daily. diphenhydrAMINE (BENADRYL) 25 mg capsule Take 25 mg by mouth every 6 hours as needed. (Patient taking differently: Take 25 mg by mouth every 6 hours as needed.) acetaminophen (TYLENOL) 500 mg tablet Take 500 mg by mouth every 8 hours as needed. diclofenac (VOLTAREN ARTHRITIS PAIN) 1 % topical gel Apply 2 g to affected area once daily. lancets (ONE TOUCH DELICA) 33 gauge Test blood sugar(s) 1 daily. Dx: Type 2 DM - Controlled E11.9 Insulin: No [DISCONTINUED] Omeprazole Magnesium (PRILOSEC OTC) 20 mg tablet Take 2 tablets by mouth once daily. hydrOXYchloroQUINE (PLAQUENIL) 200 mg tablet Take 200 mg by mouth once daily. [place]-3 Fatty Acids 500 mg cap Take 1 capsule by mouth once daily. morphine SR (MS CONTIN, ORAMORPH SR) 15 mg 12 hr tablet Take 15 mg by mouth two times a day. cyanocobalamin (VITAMIN B-12) 1,000 mcg tab Take 1,000 mcg by mouth once daily. FOLIC ACID 800 MCG TAB Take by mouth once daily. FAMILY HISTORY Problem Relation Age of Onset Diabetes Mother Colon Cancer Mother PASSED FROM THIS AT THE AGE OF 62 Heart Father HAD AN [place] IN MID TO LATE 50s, FROM THIS. other (Other) Sister MVA No Known Problems Sister Hypertension Sister Systemic Lupus Erythematosus Sister other (RHUMATOID ARTHRITIS) Sister SAME SISTER HYPERTENSION Cancer Brother Lymphoma. Cancer free for 10 years. Coronary Artery Disease Brother Stent other (Episodes of numbness) Brother having dx testing Colon Cancer Brother Bipolar disorder Daughter Arthritis Daughter Psoriactic other (Epilepsy) Daughter other (cerebral spinal fluid leak) Son other (colitis) Son Autism Grandchild Asthma No Family History Emphysema No Family History Blood Clots No Family History No PE. Social History Tobacco Use Smoking status: Never Smokeless tobacco: Never Tobacco comments: Household ETS for 50 years. Vaping Use Vaping status: Never Used Substance Use Topics Alcohol use: Not Currently Drug use: Never PHYSICAL EXAM BP 113/72 Pulse (P) 77 Resp (P) 16 Wt (P) 93.9 kg (207 lb) SpO2 (P) 96% BMI (P) 37.86 kg/m General Appearance: well appearing, in no acute distress, alert Pysch: mood and affect broad and appropriate Eyes: conjunctiva pink and moist, no icterus, sclera white, non-injected Lungs: Lungs clear to auscultation. No wheezing, rhonchi, rales. Heart: RRR without murmur, gallop, or rubs. No ectopy Health maintenance reviewed with patient: DTaP,Tdap,Td Vaccine(2 - Td or Tdap) due on 09/09/2020 Dilated Retinal Exam due on 03/12/2024 Covid-19 Vaccine( season) due on 10/24/2024 RSV Vaccine(1 - 1-dose 75+ series) due on 03/03/2025 HbA1C due on 07/23/2024 LDL Cholesterol due on 08/09/2024 Depression Screening due on 10/24/2024 Anxiety Screening due on 10/24/2024 Diabetic Foot Exam due on 12/17/2024 Urine Albumin:Creatinine Ratio due on 03/03/2025 Serum Creatinine due on 04/08/2025 Annual PCP Team Chronic Disease Visit due on 06/02/2025 BP Controlled (<130/80) due on 06/02/2025 Colorectal Cancer Screening due on 01/08/2027 Bone Density Screening Completed Spirometry Completed Influenza Vaccine Completed Advance Directive Discussion Completed Hepatitis C Screening Completed Shingrix Vaccine Completed Pneumococcal Vaccine: 50+ Completed Mammogram Screening Discontinued Alpha-1 Antitrypsin Deficiency Screening Discontinued DATA REVIEWED: No new labs Assessment/Plan 1. Primary hypertension (I10) 2. Chronic diastolic CHF (congestive heart failure) (HCC) (I50.32) - Blood pressure readings at home range from 120s to 130s systolic over 70s diastolic. Office BP today was 138/78 mmHg; rechecked after rest was 113/72. - Managed with amlodipine, metoprolol, and valsartan. Furosemide is taken as needed for edema, but has not been used recently. - No reports of chest pain or dyspnea. - Continue current antihypertensive regimen. - Advised to resume furosemide for edema, especially in the left leg. - Follow-up with [facility] - encourage low salt diet with regular exercise and weight loss to improve blood pressure and edema. 3. Type 2 diabetes mellitus with diabetic neuropathy, with long-term current use of insulin (HCC) (E11.40) - controlled at this time by reported FBS levels but need updated Hgba1c - Blood glucose levels range from 100s to 130s, with occasional readings requiring sliding scale insulin (2 units for 150-200 mg/dL, 4 units for >200 mg/dL). - Managed with metformin and sliding scale insulin. - No symptoms of hypoglycemia or polyuria. - Scheduled ophthalmology appointment. - Ordered hemoglobin A1c to be done with next blood work in July. 4. Rheumatoid arthritis involving multiple sites, unspecified whether rheumatoid factor present (HCC) (M06.9) - Managed with Plaquenil. - Follow-up with Dr. Singh in July; blood work to be done prior to appointment. - Continue current medication regimen and recommendations by rheumatology Prescription instructions reviewed with patient as applicable. Potential red flag symptoms discussed with the patient. Reviewed appropriate action plan to take if red flag symptoms occur. Patient agreeable to treatment plan. Estefani Willard APRN.CNP documented in this encounter [facility] 05-20-2024 Telephone encounter Note The patient has been identified by name and date of : Yes Caregiver verified no other encounters exist for this prescription request: Yes Caregiver confirmed with patient/requestor that no other refills are due, in the near future, with this provider at this time: Yes The last office visit in the department: 03/24/2024 Does the patient have a future office visit with this provider/department: Yes 06/02/2024 Requested Prescriptions Pending Prescriptions Disp Refills omeprazole (PRILOSEC) 40 mg capsule 90 capsule 3 Sig: Take 1 capsule by mouth once daily. Angela Louise RN May 20, 2024 4:51 PM [facility] 05-20-2024 Miscellaneous Notes The patient has been identified by name and date of : Yes Caregiver verified no other encounters exist for this prescription request: Yes Caregiver confirmed with patient/requestor that no other refills are due, in the near future, with this provider at this time: Yes The last office visit in the department: 03/24/2024 Does the patient have a future office visit with this provider/department: Yes 06/02/2024 Requested Prescriptions Pending Prescriptions Disp Refills omeprazole (PRILOSEC) 40 mg capsule 90 capsule 3 Sig: Take 1 capsule by mouth once daily. Angela Louise RN May 20, 2024 4:51 PM documented in this encounter [facility] 04-23-2024 History of Present illness Narrative FOLLOW UP VISIT - POST OP BREAST BIOPSY NAME: Saeid Casey [facility] NO.: [id number] DATE OF SERVICE: 04/23/2024 : 1950 REFERRING PHYSICIAN: Yasemin Connors MD The patient is a 73 year old female with a complaint of an abnormal mammogram. The patient had a mammogram on January 15, 2024 which demonstrated: IMPRESSION: Calcifications in the right breast are suspicious for malignancy. Stereotactic biopsy is recommended. BI-RADS Category 4: Suspicious. Just recently performed upper and lower endoscopy on January 09, 2024 for change in bowel habits and nausea. The patient was seen in follow-up by Guillermina Silverman was found to have a white open healthy anastomosis few diverticula and some gastritis. Saeid has a history of a right upper quadrant breast cancer [place] [address] Dung Mayo. She underwent a right lumpectomy with sentinel lymph node biopsy on March 16, 2010. This returned as a T1B N0 M0 lesion. She does not perform a self breast exam routinely. She notes no skin changes. She denies nipple discharge. She notes no axillary masses. She notes no family history of breast problems. She notes no significant breast trauma or breast difficulties in the past. She was scheduled for stereotactic biopsy but then had hospitalization for C. difficile colitis and the biopsy was deferred until April 03, 2024. The final pathology results of the patient's stereotactic core biopsy demonstrate the following: Site 1 - (right breast) A. Breast, Right Upper Outer Quadrant Calcifications, Stoplight Clip Placement, Stereotactic-Guided Core Needle Biopsy: - Calcifications Identified In Association With Fibroadenomatoid Change. Gl 04/04/2024 electronically Signed By Cris Blake MD On 04/04/2024 at 1040 Est This is benign concordant with the imaging findings. RECOMMENDATION Site 1: Annual mammogram recommended. Patient will be contacted by imaging nurses with benign results. Saeid notes no significant complaints since the procedure. Bruising has been minimal. VITALS: Blood pressure 124/76, pulse 86, temperature 37.2 C (98.9 F), temperature source Temporal, resp. rate 14, height 157.5 cm (5' 2"), weight 93.4 kg (206 lb), SpO2 99%. On examination, the right skin incision is clean, dry, and intact. There is minimal bruising at the biopsy site. Assessment IMPRESSION: Status Post stereotactic biopsy of the right breast for right breast microcalcifications with fibroadenomatous changes PLAN: Seaid may return to her regular activities as tolerated. We discussed the pathologic findings of her breast abnormality. The patient was reminded about the importance of self-breast exam. She was instructed on how to perform a complete self-breast exam. The patient was instructed to return immediately if she notes any change in her breast mass or if she has any concerns or notes other problems. If she notes any difficulties, she should contact me immediately. Diagnoses: (Z85.3) History of breast cancer in female (primary encounter diagnosis) (Z12.39) Breast screening Return to Clinic: The patient is instructed to follow-up with me in 1 year after mammogram. Mahin Pérez MD documented in this encounter [facility] 04-09-2024 Telephone encounter Note Patient informed [facility] Work Phone: 04-09-2024 Miscellaneous Notes Patient informed Scheduled lab appointment prior to CT. LVM for patient to return the call Priscila Krishnamurthy PSS- please contact patient to schedule a lab appointment for a CEA on 07/16/2024, while here for CT's. Paola Gonzales LPN documented in this encounter [facility] 04-09-2024 Telephone encounter Note Scheduled lab appointment prior to CT. LVM for patient to return the call Priscila Raghu [facility] 04-09-2024 Progress note Formatting of t his note might be different from the original. See phone note. Paola Gonzales LPN [facility] 04-09-2024 Miscellaneous Notes See phone note. Paola Gonzales LPN See phone note. Paola Gonzales LPN Re-check CEA in July when pt. here for CT's. Thank you. Geneva Ramos APRN.ADMINISTRATIVE PROCESSOR documented in this encounter [facility] 04-09-2024 Telephone encounter Note See phone note. Paola Gonzales LPN [facility] 04-09-2024 Telephone encounter Note PSS- please contact patient to schedule a lab appointment for a CEA on 07/16/2024, while here for CT's. Paola Gonzales LPN [facility] 04-09-2024 Telephone encounter Note Re-check CEA in July when pt. here for CT's. Thank you. Geneva Ramos APRN.ADMINISTRATIVE PROCESSOR [facility] Work Phone: 04-08-2024 History of Present illness Narrative Chief Complaint Patient presents with: Established Patient HPI: Saeid Urbina is a 73 year old female who presents here today for follow up colon cancer. Per Dr. 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 Patient developed symptoms of dyspepsia including upper abdominal discomfort and postprandial nausea. She also had early satiety and had been noted to have weight loss over the preceding 6 months. She underwent a colonoscopy and was observed to have a near obstructing lesion in the mid transverse colon highly suspicious for malignancy. The scope could not be advanced past this lesion. A clip was placed. Biopsies were performed but evidently nondiagnostic. CT A/P 01/19/2020: Liver: No mass. Biliary: The gallbladder is absent. There is mild dilation of the common bile duct/common hepatic duct. Spleen: No mass. No splenomegaly. Pancreas: No mass or duct dilation. Adrenals: No mass. Kidneys: 2-3 mm tiny attenuations in the bilateral kidneys, too small to progress. There appear to be a few parapelvic cyst. No hydronephrosis. GI tract: A 3 cm bowel wall thickening with narrowing of the lumen noted in the transverse colon, in appearance of apple core, concerning for malignancy. No bowel obstruction. Some fecal retention is noted. Lymph nodes: No abdominal or pelvic lymphadenopathy. Mesentery/Peritoneum: No ascites or mass or free abdominal air. Retroperitoneum: No mass. Vasculature: The celiac axis and SMA are patent. The portal vein and branches, splenic vein, SMV, and hepatic veins are patent. Pelvis: No mass, ascites or fluid collection. Bones/Soft Tissues: A 2 cm hyperdensity noted in the right anterior abdominal wall, likely presenting injection granuloma. There is a 2.5 x 3.8 cm fat-containing paraumbilical hernia. The spine shows degenerative changes with multilevel disc space narrowing. No definite destructive bony lesions seen. Lower thorax: No pleural effusions. Mild atelectatic changes noted in the right middle lobe and lingula. Field Account Director (topogram) images: No additional findings. Patient was admitted to [facility] on 01/26/2020. She underwent a laparoscopic colectomy partial right hemicolectomy and laparoscopic liver biopsy on the same day. Pathology: FINAL DIAGNOSIS 1. Right colon, terminal ileum, and appendix, extended right hemicolectomy (A): - Adenocarcinoma involving transverse colon and extending into pericolonic soft tissue, margins negative (see synoptic). - Metastatic adenocarcinoma in one lymph node (02/18). 2. Liver, biopsy (B): Metastatic adenocarcinoma, consistent with colorectal origin. COMMENT Immunohistochemistry was performed on the liver biopsy, and tumor cells strongly express CDX2 and CK7, while CK20 is negative. The features are consistent with metastatic spread of the patient's colorectal adenocarcinoma. SYNOPTIC REPORT OF MAE PATHOLOGIC FINDINGS EXTENDED RIGHT COLON: COLON AND RECTUM:RESECTION, INCLUDING TRANSANAL DISK EXCISION OF RECTAL NEOPLASMS WORKSHEET: Procedure: Right hemicolectomy Tumor Site: Transverse colon Tumor Size: Greatest dimension: 3.5 cm Macroscopic Tumor Perforation: Not identified Macroscopic Intactness of Mesorectum: Not applicable Histologic Type: Adenocarcinoma Histologic Grade: G2: Moderately differentiated Tumor Extension: Tumor invades through the muscularis propria into pericolorectal tissue Margins: All margins are uninvolved by invasive carcinoma, high-grade dysplasia, intramucosal adenocarcinoma, and adenoma Margins examined: proximal, distal, radial, mesenteric Proximal Margin: Uninvolved by invasive carcinoma Distal Margin: Uninvolved by invasive carcinoma Circumferential Radial Margin: Uninvolved by invasive carcinoma Mesenteric Margin: Uninvolved by invasive carcinoma Treatment Effect: No known presurgical therapy Lymphovascular Invasion: Present Perineural Invasion: Present Type of Polyp in which Invasive Carcinoma Arose: Tubular adenoma Tumor Deposits: Not identified Regional Lymph Nodes: Number of nodes involved: 1 Number of nodes examined: 14 Pathologic Stage Classification (pTNM,AJCC 8th ed) TNM Descriptors: Not applicable Pathologic Staging (pTNM): pT3: Tumor invades through the muscularis propria into pericolorectal tissues Regional Lymph Nodes (pN): pN1a: One regional lymph node is positive Distant Metastasis (pM): pM1: Metastasis to one or more distant sites or organs or peritoneal metastasis is identified Had MRI of the liver as well as CT scan of chest, abdomen pelvis. Underwent PET scan which suggested liver only metastasis. Laparoscopic microwave ablation of liver metastasis under ultrasound guidance on 04/23/2020. Previous therapy: 1) Adjuvant FOLFIRI. Completed 12 cycles as of 01/24/2021. Had egd/colonoscopy in June [address] Pérez. Next due in 3 years. Colonoscopy done 2023. Next due in 5 years. Pt. here today with her daughter. Dx with C.diff on Mar.09. Appetite:"Good. I'm eating like a horse." Wt. down. Energy level:"I'm gonna say fair." Denies fevers. Resp:denies cough or sob Cardiac:denies chest pain/palpitations GI:denies abd pain, n/v, moving bowels regularly now :denies dysuria/hematuria Extrem:chronic hand/knee/low back pain-followed Dr. Wang and Dr. Brown pain mgmt. 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 Past medical history, appointments, medications, allergies reviewed. No changes. EXAM: BP 131/78 Pulse 81 Temp 36.7 C (98 F) (Temporal) Wt 92 kg (202 lb 13.2 oz) SpO2 98% BMI 37.10 kg/m APPEARANCE Well appearing, alert, in no acute distress, well-hydrated, well nourished. HEART RRR with normal S1 and S2, no murmurs LUNG clear to auscultation LYMPH NODES No cervical lymphadenopathy, No supraclavicular lymphadenopathy, and No axillary lymphadenopathy. ABDOMEN bowel sounds normoactive, soft, non-tender EXTREMITIES No edema NEURO Awake, alert and oriented x 3, Normal gait, and No involuntary motions. SKIN Skin color, texture, turgor normal, no suspicious rashes or lesions LABS: Latest Ref Rng 07/20/2023 10/02/2023 04/08/2024 WBC 3.70 - 11.00 k/uL 6.37 5.60 6.12 RBC 3.90 - 5.20 m/uL 4.32 4.22 4.15 Hemoglobin 11.5 - 15.5 g/dL 13.0 12.7 12.6 Hematocrit 36.0 - 46.0 % 40.2 38.4 37.9 MCV 80.0 - 100.0 fL 93.1 91.0 91.3 MCH 26.0 - 34.0 pg 30.1 30.1 30.4 MCHC 30.5 - 36.0 g/dL 32.3 33.1 33.2 RDW-CV 11.5 - 15.0 % 12.7 13.1 13.1 Platelet Count 150 - 400 k/uL 164 178 170 MPV 9.0 - 12.7 fL 11.0 10.5 10.8 Neut% % 64.2 58.9 Abs Neut (ANC) 1.45 - 7.50 k/uL 3.60 3.61 Lymph% % 21.1 26.5 Abs Lymph 1.00 - 4.00 k/uL 1.18 1.62 Cottle% % 10.9 10.5 Abs Cottle <0.87 k/uL 0.61 0.64 Eosin% % 2.0 1.8 Abs Eosin <0.46 k/uL 0.11 0.11 Baso% % 0.7 0.7 Abs Baso <0.11 k/uL 0.04 0.04 Immature Gran % % 1.1 1.6 IMMATURE GRANS (ABS) <0.10 k/uL 0.06 0.10 (H) NRBC /100 WBC 0.0 0.0 Absolute nRBC <0.01 k/uL <0.01 <0.01 <0.01 DTYPE Auto Auto BMP/Hep func/CEA: Pending ASSESSMENT/PLAN: 1. Cancer of transverse colon (HCC) - ICD9: 153.1, ICD10: C18.4 (primary diagnosis) 2. Metastases to the liver (HCC) - ICD9: 197.7, ICD10: C78.[address] Vallejo's previous note 03/30/21: Assessment: -In summary the patient is a 70-year-old female who was diagnosed with metastatic adenocarcinoma the transverse colon after presenting with a several month history of early satiety and dyspepsia characterized by upper abdominal pain and postprandial nausea. Initial CT scan demonstrated an apple core filling defect in the transverse colon. During surgery, an approximate 1 cm nodule was appreciated on the liver. Biopsy tissue was consistent with metastatic adenocarcinoma the colon. CTs revealed a suspicious 8 x 6 mm KASHIF lung nodule. MRI suggested a single liver metastasis. Side branch pancreatic IPMNs. -Laparoscopic microwave ablation of liver metastasis under ultrasound guidance on 04/23/2020. -NRAS mutated. -MMR proficient. -HER2 negative. -She had pre-existing sensory neuropathy manifested as numbness in both toes and her ability to walk was compromised by chronic low back and knee pain--uses walker. -The 8 mm nodule in left upper lobe was suspicious but it was not a proven site of metastatic disease. SBRT could be considered for that at some point in the future. -Has now completed 12 cycles of adjuvant FOLFIRI. -Reviewed the results of the CT scans in detail. Stable pulmonary nodules. Unchanged 8 mm nodule in left adrenal gland dating back to 2009. Stable 1 cm short axis lymph node in the portacaval area. Diffusely hypoattenuating area of capsular retraction with heterogeneous enhancement and decreasing peripheral hyperdensity in keeping with posttreatment changes in the liver. Plan: -Due for colonoscopy. -Labs/CTs then OV in about 4 months. -Continue management under chronic pain management for arthritis and chronic low back pain. - No concerning findings on exam. - Reviewed labs/imaging with pt. and daughter. - Colonoscopy due in 5 years-Dr. Pérez. - Follow up with PCP/pain mgmt. - CT chest/abd/pelvis due in July. - Needs port flushes. - Follow up in 6 months CBC/BMP/LFT's/CEA-pending today's labs. - Pt. aware to call office with any questions/concerns. The patient indicates understanding of these issues and agrees with the plan. All documentation from previous visit of 10/02/23-Dr. Vallejo/myself was copied and pasted, documentation has been reviewed and edited as necessary for today's visit. Geneva Ramos APRN.ADMINISTRATIVE PROCESSOR documented in this encounter [facility] 04-08-2024 History of Present illness Narrative Patient is here for IVAD port flush/blood draw. IVAD is located in left upper chest. Site cleansed with Chloraprep IVAD accessed with a #20 gauge 3/4" non-coring Gripper needle Flush with 5cc's Normal Saline. Blood Return: Good. 10 cc's blood aspirated and discarded. Blood drawn for CBC, BMP, LDH, and CEA. Flushed with: 20 ml Normal Saline. Non-coring needle removed. Paper tape applied to puncture site. Site negative for redness, edema or tenderness. Patient tolerated procedure well. Ana Lara RN documented in this encounter [facility] 04-03-2024 Instructions Formatting of th is note might be different from the original. AMBULATORY PATIENT EDUCATION RADIOLOGY TOPIC: Pre- Procedure Teaching:Logistics / Protocols / Complication Prevention Post- Procedure Teaching: Symptom Management / Wound Care READINESS TO LEARN COGNITIVE ABILITY: Alert and oriented MOTIVATION TO LEARN: Interested FAMILY SUPPORT: Unable to assess - Family not present INSTRUCTION PROVIDED TO: Patient PATIENT LEARNS BEST BY: Individual Instruction Written Instruction - Hand-outs Verbal Instruction FACTORS AFFECTING LEARNING: None PHYSICAL LIMITATIONS AFFECTING LEARNING: None LEARNING RESPONSE Radiology Procedures Breast BX, Vacuum Assist and Clip Deployment METHOD OF INSTRUCTION: Individual instruction Written instruction - handouts Verbal instruction PATIENT / FAMILY RESPONSE: Performs skill independently: Wound care FOLLOW-UP PLAN: Follow up phone call. SUPPLEMENTAL MATERIAL: Homegoing instructions REFERRAL (RECOMMENDATION): None [facility] 04-03-2024 Miscellaneous Notes AMBULATORY PATIENT EDUCATION RADIOLOGY TOPIC: Pre- Procedure Teaching:Logistics / Protocols / Complication Prevention Post- Procedure Teaching: Symptom Management / Wound Care READINESS TO LEARN COGNITIVE ABILITY: Alert and oriented MOTIVATION TO LEARN: Interested FAMILY SUPPORT: Unable to assess - Family not present INSTRUCTION PROVIDED TO: Patient PATIENT LEARNS BEST BY: Individual Instruction Written Instruction - Hand-outs Verbal Instruction FACTORS AFFECTING LEARNING: None PHYSICAL LIMITATIONS AFFECTING LEARNING: None LEARNING RESPONSE Radiology Procedures Breast BX, Vacuum Assist and Clip Deployment METHOD OF INSTRUCTION: Individual instruction Written instruction - handouts Verbal instruction PATIENT / FAMILY RESPONSE: Performs skill independently: Wound care FOLLOW-UP PLAN: Follow up phone call. SUPPLEMENTAL MATERIAL: Homegoing instructions REFERRAL (RECOMMENDATION): None documented in this encounter [facility] 03-31-2024 Telephone encounter Note Pt called and is notified of providers message and instructions. Pt voices understanding and states so far she is holding her own. She reports she will call back if she starts having more diarrhea. Julia Cohen RN [facility] 03-31-2024 Miscellaneous Notes Pt called and is notified of providers message and instructions. Pt voices understanding and states so far she is holding her own. She reports she will call back if she starts having more diarrhea. Julia Cohen RN Called and left a voicemail for the Patient to call back and ask for a nurse to receive the providers message. Julia Cohen RN The diarrhea is very concerning but glad so far it was only one episode and she is lacking any other symptoms. If it occurs again she may need to return to treatment. Please let us know. Thank you Estefani Willard APRN.CNP Patient calling with question for Dr. Connors. Pt was seen by Dr. Connors recently on 03/24 for ER follow up after being treated for C.Diff. Patient states after completing her vancomycin for C. Diff, she had a good week of normal bowel movements and no C.Diff sx's. Patient states she had one "explosive episode" bowel movement yesterday and is concerned her C. Diff might be returning. Reports since it was only one episode she will monitor and see if it happens again but she is asking PCP if she will need more vanco? Denies any other sx's. Eating well, no abd pain or nausea. Please advise. Marie Kaufman RN documented in this encounter [facility] 03-31-2024 Telephone encounter Note Called and left a voicemail for the Patient to call back and ask for a nurse to receive the providers message. Julia Cohen RN [facility] 03-31-2024 Telephone encounter Note The diarrhea is very concerning but glad so far it was only one episode and she is lacking any other symptoms. If it occurs again she may need to return to treatment. Please let us know. Thank you Estefani Willard APRN.ADMINISTRATIVE PROCESSOR [facility] 03-31-2024 Telephone encounter Note Patient calling with question for Dr. Connors. Pt was seen by Dr. Connors recently on 03/24 for ER follow up after being treated for C.Diff. Patient states after completing her vancomycin for C. Diff, she had a good week of normal bowel movements and no C.Diff sx's. Patient states she had one "explosive episode" bowel movement yesterday and is concerned her C. Diff might be returning. Reports since it was only one episode she will monitor and see if it happens again but she is asking PCP if she will need more vanco? Denies any other sx's. Eating well, no abd pain or nausea. Please advise. Marie Kaufman RN [facility] 03-24-2024 History of Present illness Narrative Reason for Visit Patient presents with: ER F/U: [facility] 03/09/24 diarrhea; CDIFF Saeid Urbina is a 71 year old female who presents here today for Above Complaints.. Health Maintenance ALPHA-1 ANTITRYPSIN DEFICIENCY SCREENING COVID-19 VACCINE(5 - Booster) DILATED RETINAL EXAM HPI Saeid is here for follow-up of ER visit. She has a past medical history of diabetes mellitus type 2, hypertension, morbid obesity, chronic pain syndrome, history of transverse colon cancer, history of rheumatoid arthritis, CKD. She also recently had nerve palsy presented with double vision Seen in the ER for explosive diarrhea and similar to the symptoms she had when she has C. difficile. She was put on 10 days of vancomycin, her symptoms of all resolved right now. Reports not having been on antibiotics or or having known any triggers. Blood pressure is well-controlled. Reviewed recent labs that were done for investigating her liver issues. She has been losing weight and it is concerning because it is no obvious reason and she is not on medications will make her lose weight. No problem-specific Assessment & Plan notes found for this encounter. Reviewed past medical, surgery and family history. Social History Tobacco Use Smoking status: Never Smokeless tobacco: Never Tobacco comments: Household ETS for 50 years. Vaping Use Vaping status: Never Used Substance Use Topics Alcohol use: Not Currently Drug use: Never Past medical history, appointments, medications, allergies reviewed. Pertinent Lab/Diagnostic Studies are reviewed and discussed today Current Outpatient Medications: ondansetron orally disintegrating (ZOFRAN ODT) 4 mg disintegrating tablet Fenofibrate (LOFIBRA) 54 mg tablet magnesium oxide (MAG-OX) 400 mg (241.3 mg magnesium) tablet blood sugar diagnostic (N-of-OneTOUCH ULTRA TEST) test strip metFORMIN ER (GLUCOPHAGE XR) 500 mg 24 hr tablet albuterol HFA (PROVENTIL HFA, VENTOLIN HFA) 90 mcg/actuation inhaler Lancets amLODIPine (NORVASC) 10 mg tablet valsartan (DIOVAN) 160 mg tablet Cholecalciferol, Vitamin D3, 25 mcg (1,000 unit) cap amitriptyline (ELAVIL) 50 mg tablet omeprazole (PRILOSEC) 40 mg capsule metoprolol succinate ER (TOPROL XL) 50 mg 24 hr tablet furosemide (LASIX) 20 mg tablet insulin lispro (HUMALOG KWIKPEN INSULIN) 100 unit/mL insulin needles, DISPOSABLE, (PEN NEEDLE) 31 gauge x 5/16" aspirin, enteric coated (ASPIRIN, ENTERIC COATED) 81 mg EC tablet diphenhydrAMINE (BENADRYL) 25 mg capsule acetaminophen (TYLENOL) 500 mg tablet diclofenac (VOLTAREN ARTHRITIS PAIN) 1 % topical gel lancets (ONE TOUCH DELICA) 33 gauge hydrOXYchloroQUINE (PLAQUENIL) 200 mg tablet [place]-3 Fatty Acids 500 mg cap morphine SR (MS CONTIN, ORAMORPH SR) 15 mg 12 hr tablet cyanocobalamin (VITAMIN B-12) 1,000 mcg tab FOLIC ACID 800 MCG TAB Review of Systems CONSTITUTIONAL: No fevers, chills night sweats, unintended weight loss CARDIOVASCULAR: No chest pain, dyspnea, palpitations, orthopnea, PND, ankle edema. PULM: No dyspnea, unexplained cough. GI: No dysphagia/odynophagia, problematic reflux, constipation, diarrhea, changes in stool habits, hematochezia, melena. : No new urinary complaints, including dysuria, gross hematuria or pyuria. NEURO: No new balance problems, peripheral weakness/paresthesias or numbness of concern. Physical Exam BP 137/79 Pulse 80 Resp 20 Wt 93.5 kg (206 lb 1.9 oz) SpO2 98% BMI 37.70 kg/m General appearance: Well appearing, alert, in no acute distress, well nourished. Skin: a couple open lesion on the neck that look like burst impetigo with no signs of infection around it. Head: Normocephalic, no masses, lesions, tenderness or abnormalities Eyes: Anicteric sclera. Pupils are equally round and reactive to light. Extraocular movements are intact. Lungs: Lungs clear to auscultation. No wheezing, rhonchi, rales Heart: RRR without murmur, gallop, or rubs. Extremities: No deformities, edema, skin discoloration, clubbing or cyanosis. Good capillary refill. ASSESSMENT/PLAN: 1. C. difficile diarrhea - ICD9: 008.45, ICD10: A04.72 (primary diagnosis) Resolved 2. Type 2 diabetes mellitus with stage 3b chronic kidney disease, with long-term current use of insulin (HCC) - ICD9: 250.40, 585.3, V58.67, ICD10: E11.22, N18.32, Z79.4 - Controlled - will consider stopping all medications in the next visit 3. Hypertension goal BP (blood pressure) < 150/90 - ICD9: 401.9, ICD10: I10 - Controlled - Recommend home blood pressure monitoring, to bring results to next visit - Encouraged sodium restriction, DASH or Mediterranean diet - Recommend regular aerobic exercise 4. Stage 3 chronic kidney disease, unspecified whether stage 3a or 3b CKD (HCC) - ICD9: 585.3, ICD10: N18.30 - eGFR: 64 Stable - Counseled on avoiding NSAIDs, adequate hydration 5. Chronic diastolic CHF (congestive heart failure) ([facility]) - ICD9: 428.32, 428.0, ICD10: I50.32 Yasemin Connors MD documented in this encounter [facility] 03-10-2024 Telephone encounter Note Per PCP, 10-14 days. Pt scheduled for 03/24/24 Leslye Titus MA [facility] 03-10-2024 Miscellaneous Notes Per PCP, 10-14 days. Pt scheduled for 03/24/24 Leslye Titus MA Patient was at [facility] ER on 03/09/24 and is positive for C Diff and asking when she should follow up in office for this. Please advise the patient. documented in this encounter [facility] 03-10-2024 Telephone encounter Note Patient was at [facility] ER on 03/09/24 and is positive for C Diff and asking when she should follow up in office for this. Please advise the patient. [facility] 03-03-2024 History of Present illness Narrative CC: Patient presents with: Recheck: Follow up HPI Saeid Urbina is a 73 year old female who presents today for follow up on diabetes and lab review. DIABETES MELLITUS: Ms. Urbina denies excessive thirst or increased frequency of urination, chest pain or dyspnea , numbness, tingling or pain in extremities, new or unusual visual symptoms, low sugar/hypoglycemic reactions, weight loss/gain, lightheadedness/dizziness, and bowel changes/loose stools. Uses insulin if she gets an insulin injection but outside of that her glucose is typically well controlled. Follows a diabetic diet most of the time. She is compliant with medication(s) and is tolerating med(s) without any side effects. Patient's last HgA1C was Hemoglobin A1C (%) Date Value 01/23/2024 5.5 07/20/2023 6.4 12/07/2020 6.7 08/27/2020 6.4 Hemoglobin A1C (POCT) (%) Date Value 12/09/2021 6.2 09/06/2021 6.1 ) Elevated liver enzymes: Denies abdominal pain, bowel changes, vomiting, fever, or chills, occasional nausea after eating. Did have a liver ablation in 2020 for mets from colon cancer. CT of abdomen 4 weeks ago showing diffuse fatty infiltration of the liver. Cholecystectomy in the . REVIEW OF SYSTEMS See HPI PAST MEDICAL HISTORY Diagnosis Date Abdominal pain 2022 Arthritis Benign neoplasm of colon Benign polyps. 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 Lumpectomy, completed radiation 06/27/10. No chemotherapy. Myalgia and myositis, unspecified Obesity, unspecified Obesity Obstructive sleep apnea syndrome 05/24/2015 No longer needs CPAP Pain in joint of right shoulder 09/03/2014 Plantar fascial fibromatosis Seborrheic dermatitis, unspecified Shortness of breath Type II or unspecified type diabetes mellitus without mention of complication, not stated as uncontrolled Unspecified hemorrhoids without mention of complication Hemorrhoids Urinary incontinence overactive bladder PAST SURGICAL HISTORY Procedure Laterality Date ADENOIDECTOMY PRIMARY <AGE 10 age 3 Adenoidectomy BX BREAST PERC NEED W/GUID 02/11/2010 U/S Needle core UOQ right breast bx BX/EXC LYMPH NODE OPEN DEEP AXILLARY NODE 03/16/[address] [facility] [address] Dung Mayo CATH IMPL VASC ACCESS PORTAL 03/03/2020 DELIVERY ONLY , low cervical x4 CHOLECYSTECTOMY 01/11/1981 Cholecystectomy COLONOSCOPY 06/21/2021 , repeat in 3 years COLONOSCOPY 01/09/2024 COLONOSCOPY FLX DX W/COLLJ SPEC WHEN PFRMD 08/30/2001 Colonoscopy COLONOSCOPY FLX DX W/COLLJ SPEC WHEN PFRMD 07/17/2012 Colonoscopy COLONOSCOPY FLX DX W/COLLJ SPEC WHEN PFRMD 12/02/2015 Colonoscopy (Needs MAC next time) COLONOSCOPY GEN ANES 01/16/2020 COLONOSCOPY W/BIOPSY SINGLE/MULTIPLE 06/01/2006 EGD 01/16/2020 EGD 01/09/2024 EGD FLEX REMOVAL LESION(S) BY HOT BIOPSY FORCEPS 08/30/2001 EGD TRANSORAL BIOPSY SINGLE/MULTIPLE 06/01/2006 EGD TRANSORAL BIOPSY SINGLE/MULTIPLE 12/23/2009 EGD W/O [facility] SPEC VARICIES INJ 06/21/2021 EGD W/O [facility] SPEC VARICIES INJ 07/25/2022 ESOPHAGOGASTRODUODENOSCOPY TRANSORAL DIAGNOSTIC 12/02/2015 EGD IMAGING GUIDED RADIOFREQUENCY LIVER ABLATION 04/2020 ablation IR RADIO FREQUENCY ABLATION 11/2017 LAPAROSCOPIC HEMICOLECTOMY 01/26/2020 LIG/TRNSXJ FLP TUBE ABDL/VAG APPR UNI/BI Tubal ligation MASTECTOMY, PARTIAL 03/16/[address] [facility] [address] Dung Mayo PREOP PLACEMENT NEEDLE LOC 03/16/2010 U/S wire loc UOQ right breast PULMONARY FUNCTION TEST 05/22/2005 SIGMOIDOSCOPY FLX DX W/COLLJ SPEC BR/WA IF PFRMD 04/06/1999 Sigmoidoscopy, flexible TONSILLECTOMY PRIMARY/SECONDARY <AGE 10 age 3 Tonsillectomy ALLERGIES Ciprofloxacin, Claritin [Loratadine], Dicyclomine, E-Mycin [Erythromycin], Gemtesa [Vibegron], Macrobid [Nitrofurantoin Monohyd/M-Cryst], Myrbetriq [Mirabegron], Naproxen, Oruvail [Ketoprofen], and Relafen [Nabumetone] MEDICATIONS ondansetron orally disintegrating (ZOFRAN ODT) 4 mg disintegrating tablet Take 1 tablet by mouth every 6 hours as needed for nausea/vomiting. Fenofibrate (LOFIBRA) 54 mg tablet Take 1 tablet by mouth once daily. magnesium oxide (MAG-OX) 400 mg (241.3 mg magnesium) tablet Take 1 tablet by mouth once daily. blood sugar diagnostic (KitBoost ULTRA TEST) test strip use 1 TEST STRIP to TEST BLOOD SUGAR once daily metFORMIN ER (GLUCOPHAGE XR) 500 mg 24 hr tablet Take 1 tablet by mouth daily with breakfast. albuterol HFA (PROVENTIL HFA, VENTOLIN HFA) 90 mcg/actuation inhaler Inhale 2 Puffs as instructed every 4 hours as needed. Lancets Test blood sugar(s) 4 times daily. Dx: Type 2 DM - Uncontrolled E11.65 Insulin: Yes amLODIPine (NORVASC) 10 mg tablet Take 1 tablet by mouth once daily. valsartan (DIOVAN) 160 mg tablet Take 1 tablet by mouth once daily. Cholecalciferol, Vitamin D3, 25 mcg (1,000 unit) cap Take 1 capsule by mouth once daily. amitriptyline (ELAVIL) 50 mg tablet Take 50 mg by mouth daily at bedtime. omeprazole (PRILOSEC) 40 mg capsule Take 1 capsule by mouth once daily. metoprolol succinate ER (TOPROL XL) 50 mg 24 hr tablet Take 1 tablet by mouth once daily. furosemide (LASIX) 20 mg tablet Take 0.5 tablets by mouth once daily. (Patient taking differently: Take 10 mg by mouth as needed.) insulin lispro (HUMALOG KWIKPEN INSULIN) 100 unit/mL Sliding scale during chemotherapy for glucose readings with meals 151 - 200 2 units 201 - 250 4 units 251 - 300 6 units 301 - 350 8 units 351-400 10 units >400 contact office insulin needles, DISPOSABLE, (PEN NEEDLE) 31 gauge x 5/16" Use one needle per dose. 3 per day. aspirin, enteric coated (ASPIRIN, ENTERIC COATED) 81 mg EC tablet Take 1 tablet by mouth once daily. diphenhydrAMINE (BENADRYL) 25 mg capsule Take 25 mg by mouth every 6 hours as needed. acetaminophen (TYLENOL) 500 mg tablet Take 500 mg by mouth every 8 hours as needed. diclofenac (VOLTAREN ARTHRITIS PAIN) 1 % topical gel Apply 2 g to affected area once daily. lancets (ONE TOUCH DELICA) 33 gauge Test blood sugar(s) 1 daily. Dx: Type 2 DM - Controlled E11.9 Insulin: No [DISCONTINUED] Omeprazole Magnesium (PRILOSEC OTC) 20 mg tablet Take 2 tablets by mouth once daily. hydrOXYchloroQUINE (PLAQUENIL) 200 mg tablet Take 200 mg by mouth once daily. [place]-3 Fatty Acids 500 mg cap Take 1 capsule by mouth once daily. morphine SR (MS CONTIN, ORAMORPH SR) 15 mg 12 hr tablet Take 15 mg by mouth two times a day. cyanocobalamin (VITAMIN B-12) 1,000 mcg tab Take 1,000 mcg by mouth once daily. FOLIC ACID 800 MCG TAB Take by mouth once daily. FAMILY HISTORY Problem Relation Age of Onset Diabetes Mother Colon Cancer Mother PASSED FROM THIS AT THE AGE OF 62 Heart Father HAD AN [place] IN MID TO LATE 50s, FROM THIS. other (Other) Sister MVA No Known Problems Sister Hypertension Sister Systemic Lupus Erythematosus Sister other (RHUMATOID ARTHRITIS) Sister SAME SISTER HYPERTENSION Cancer Brother Lymphoma. Cancer free for 10 years. Coronary Artery Disease Brother Stent other (Episodes of numbness) Brother having dx testing Colon Cancer Brother Bipolar disorder Daughter Arthritis Daughter Psoriactic other (Epilepsy) Daughter other (cerebral spinal fluid leak) Son other (colitis) Son Autism Grandchild Asthma No Family History Emphysema No Family History Blood Clots No Family History No PE. Social History Tobacco Use Smoking status: Never Smokeless tobacco: Never Tobacco comments: Household ETS for 50 years. Vaping Use Vaping status: Never Used Substance Use Topics Alcohol use: Not Currently Drug use: Never PHYSICAL EXAM BP 126/74 Pulse 76 Resp 16 Wt 95.3 kg (210 lb) SpO2 95% BMI 38.41 kg/m General Appearance: well appearing, in no acute distress, alert Eyes: conjunctiva pink and moist, no icterus, sclera white, non-injected Lungs: Lungs clear to auscultation. No wheezing, rhonchi, rales. Heart: RRR without murmur, gallop, or rubs. No ectopy Abdomen: Abdomen soft, non-tender. Bowel sounds normal. No masses, organomegaly Health maintenance reviewed with patient: DTaP,Tdap,Td Vaccine(2 - Td or Tdap) due on 09/09/2020 Urine Albumin:Creatinine Ratio due on 12/12/2023 RSV Vaccine(1 - 1-dose 75+ series) Never done Advance Directive Discussion due on 02/06/2024 Dilated Retinal Exam due on 03/12/2024 Covid-19 Vaccine( season) due on 10/24/2024 HbA1C due on 07/23/2024 LDL Cholesterol due on 08/09/2024 Depression Screening due on 10/24/2024 Anxiety Screening due on 10/24/2024 Diabetic Foot Exam due on 12/17/2024 Annual PCP Team Chronic Disease Visit due on 01/22/2025 Serum Creatinine due on 01/22/2025 BP Controlled (<130/80) due on 02/13/2025 Colorectal Cancer Screening due on 01/08/2027 Bone Density Screening Completed Spirometry Completed Influenza Vaccine Completed Hepatitis C Screening Completed Shingrix Vaccine Completed Pneumococcal Vaccine: 50+ Completed HPV Vaccine Aged Out Mammogram Screening Discontinued Alpha-1 Antitrypsin Deficiency Screening Discontinued DATA REVIEWED: Most recent labs ASSESSMENT/PLAN: 1. Type 2 diabetes mellitus with diabetic neuropathy, with long-term current use of insulin (HCC) - ICD9: 250.60, 357.2, V58.67, ICD10: E11.40, Z79.4 (primary diagnosis) - Controlled - Continue current medications - Blood glucose monitoring on a once daily schedule - Counseled on healthy diet and regular exercise - Discussed need for and benefit of weight loss. BMI 38.41 kg/(m^2) - ALBUMIN/CREATININE RATIO, URINE 2. Elevated liver enzymes - ICD9: 790.5, ICD10: R74.8 Possibly from fatty liver but enzymes continuing to increase 4 weeks ago. Will recheck and do hepatitis panel. - HEPATIC FUNCTION PNL - HEP REMOTE PANEL BL Prescription instructions reviewed with patient as applicable. Potential red flag symptoms discussed with the patient. Reviewed appropriate action plan to take if red flag symptoms occur. Patient agreeable to treatment plan. Estefani Willard APRN.ADMINISTRATIVE PROCESSOR documented in this encounter [facility] 02-15-2024 Telephone encounter Note Scheduled at [facility] 02/20. Mya Tobin MA [facility] 02-15-2024 Miscellaneous Notes Scheduled at [facility] 02/20. Mya Tobin MA Pt calling with concerns about going to [place] for stereotactic biopsy. She found out that [facility] does them and called to get information. She was told that Dr. Pérez would need to refer her to their General Surgery Department for them to arrange the biopsy. Shared concerns about imaging being available and changing care to another provider. She asks that we check with Dr. Pérez to see if he can order the test at [facility] or if there are any other options aside from [facility]. Please review and advise. Mya Tobin MA documented in this encounter [facility] 02-14-2024 History of Present illness Narrative Images from the original note were not included. . [facility] [place] Note Patient name: Saeid Urbina PCP: Yasemin Connors MD CC: Follow-up lung nodules and COPD HPI: Saeid Urbina 73 year old female non-smoker with PMH significant for obesity, HLD, SHILPA, DM, CKD, HTN, GERD, CHF, RA, COPD (mild, second hand smoke), breast cancer triple negative 2010 (partial mastectomy, XRT), metastatic colon cancer to liver 2019 (hemicolectomy, FOLFIRI, liver mets ablation), lung nodule (8 mm semisolid KASHIF). Inhaled therapy with Stiolto but cannot afford and does not qualify for assistance so she has been using as needed albuterol. She states she has been doing well from a respiratory standpoint, she tends to require albuterol when she is very active or with changes in the weather. No recent upper respiratory infection, hospitalization for her lung disease. Denies any wheezing, cough or mucus production. Her most recent CT of her chest shows stability of her semisolid left upper lobe nodule. Since her last office visit, she has had a suspicious area of calcifications on her recent mammogram and is pending stereotactic biopsy. DATA: Imaging / Diagnostic Studies: DATE OF EXAM: Jan 07 2024 11:54AM [facility] 0539 - CT CHEST W IVCON / Lung parenchyma and airways: The central airways are patent. There are stable 3.5 mm solid nodule in the right upper lobe, series 10 image 72. A stable 8 mm nodule is again seen in the left upper lobe, series 10 image 42. Also seen is a stable triangular density in the anterior left upper lobe abutting the pleural surface, series 10 image 54. No new nodules identified. No masses. No consolidations. There are large pericardial fat pads. IMPRESSION Stable lung nodules. No new or enlarging nodules identified. No enlarged lymph nodes seen in the chest. I personally reviewed the images which shows a stable left upper lobe nodule PAST MEDICAL HISTORY Diagnosis Date Abdominal pain 2022 Arthritis Benign neoplasm of colon Benign polyps. 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 Lumpectomy, completed radiation 06/27/10. No chemotherapy. Myalgia and myositis, unspecified Obesity, unspecified Obesity Obstructive sleep apnea syndrome 05/24/2015 No longer needs CPAP Pain in joint of right shoulder 09/03/2014 Plantar fascial fibromatosis Seborrheic dermatitis, unspecified Shortness of breath Type II or unspecified type diabetes mellitus without mention of complication, not stated as uncontrolled Unspecified hemorrhoids without mention of complication Hemorrhoids Urinary incontinence overactive bladder ALLERGIES Allergen Reactions Ciprofloxacin Hives Claritin [Loratadin* Intolerance Dicyclomine Other: See Comments, Unknown E-Mycin [Erythromyc* GI Upset, Itching Gemtesa [Vibegron] Swelling Facial swelling Macrobid [Nitrofura* Swelling, Itching Myrbetriq [Mirabegr* Swelling Naproxen Swelling Feet swelled in 2 days Oruvail [Ketoprofen] Rash Relafen [Nabumetone] swelling ondansetron orally disintegrating (ZOFRAN ODT) 4 mg disintegrating tablet Take 1 tablet by mouth every 6 hours as needed for nausea/vomiting. Fenofibrate (LOFIBRA) 54 mg tablet Take 1 tablet by mouth once daily. magnesium oxide (MAG-OX) 400 mg (241.3 mg magnesium) tablet Take 1 tablet by mouth once daily. fesoterodine (TOVIAZ) 4 mg Tb24 extended release tablet Take 1 tablet by mouth every afternoon. blood sugar diagnostic (KitBoost ULTRA TEST) test strip use 1 TEST STRIP to TEST BLOOD SUGAR once daily metFORMIN ER (GLUCOPHAGE XR) 500 mg 24 hr tablet Take 1 tablet by mouth daily with breakfast. albuterol HFA (PROVENTIL HFA, VENTOLIN HFA) 90 mcg/actuation inhaler Inhale 2 Puffs as instructed every 4 hours as needed. docusate sodium (COLACE) 100 mg capsule Take 1 capsule by mouth two times a day as needed for constipation. Lancets Test blood sugar(s) 4 times daily. Dx: Type 2 DM - Uncontrolled E11.65 Insulin: Yes amLODIPine (NORVASC) 10 mg tablet Take 1 tablet by mouth once daily. valsartan (DIOVAN) 160 mg tablet Take 1 tablet by mouth once daily. Cholecalciferol, Vitamin D3, 25 mcg (1,000 unit) cap Take 1 capsule by mouth once daily. amitriptyline (ELAVIL) 50 mg tablet Take 50 mg by mouth daily at bedtime. omeprazole (PRILOSEC) 40 mg capsule Take 1 capsule by mouth once daily. metoprolol succinate ER (TOPROL XL) 50 mg 24 hr tablet Take 1 tablet by mouth once daily. furosemide (LASIX) 20 mg tablet Take 0.5 tablets by mouth once daily. (Patient taking differently: Take 10 mg by mouth as needed.) insulin lispro (HUMALOG KWIKPEN INSULIN) 100 unit/mL Sliding scale during chemotherapy for glucose readings with meals 151 - 200 2 units 201 - 250 4 units 251 - 300 6 units 301 - 350 8 units 351-400 10 units >400 contact office insulin needles, DISPOSABLE, (PEN NEEDLE) 31 gauge x 5/16" Use one needle per dose. 3 per day. aspirin, enteric coated (ASPIRIN, ENTERIC COATED) 81 mg EC tablet Take 1 tablet by mouth once daily. diphenhydrAMINE (BENADRYL) 25 mg capsule Take 25 mg by mouth every 6 hours as needed. acetaminophen (TYLENOL) 500 mg tablet Take 500 mg by mouth every 8 hours as needed. diclofenac (VOLTAREN ARTHRITIS PAIN) 1 % topical gel Apply 2 g to affected area once daily. lancets (ONE TOUCH DELICA) 33 gauge Test blood sugar(s) 1 daily. Dx: Type 2 DM - Controlled E11.9 Insulin: No hydrOXYchloroQUINE (PLAQUENIL) 200 mg tablet Take 200 mg by mouth once daily. Diclofenac Sodium (SOLARAZE) 3 % gel Apply to affected area two times a day. [place]-3 Fatty Acids 500 mg cap Take 1 capsule by mouth once daily. morphine SR (MS CONTIN, ORAMORPH SR) 15 mg 12 hr tablet Take 15 mg by mouth two times a day. cyanocobalamin (VITAMIN B-12) 1,000 mcg tab Take 1,000 mcg by mouth once daily. FOLIC ACID 800 MCG TAB Take by mouth once daily. [DISCONTINUED] Omeprazole Magnesium (PRILOSEC OTC) 20 mg tablet Take 2 tablets by mouth once daily. Social History Tobacco Use Smoking status: Never Smokeless tobacco: Never Tobacco comments: Household ETS for 50 years. Vaping Use Vaping status: Never Used Substance Use Topics Alcohol use: Not Currently Drug use: Never FAMILY HISTORY Problem Relation Age of Onset Diabetes Mother Colon Cancer Mother PASSED FROM THIS AT THE AGE OF 62 Heart Father HAD AN [place] IN MID TO LATE 50s, FROM THIS. other (Other) Sister MVA No Known Problems Sister Hypertension Sister Systemic Lupus Erythematosus Sister other (RHUMATOID ARTHRITIS) Sister SAME SISTER HYPERTENSION Cancer Brother Lymphoma. Cancer free for 10 years. Coronary Artery Disease Brother Stent other (Episodes of numbness) Brother having dx testing Colon Cancer Brother Bipolar disorder Daughter Arthritis Daughter Psoriactic other (Epilepsy) Daughter other (cerebral spinal fluid leak) Son other (colitis) Son Autism Grandchild Asthma No Family History Emphysema No Family History Blood Clots No Family History No PE. PAST SURGICAL HISTORY Procedure Laterality Date ADENOIDECTOMY PRIMARY <AGE 10 age 3 Adenoidectomy BX BREAST PERC NEED W/GUID 02/11/2010 U/S Needle core UOQ right breast bx BX/EXC LYMPH NODE OPEN DEEP AXILLARY NODE 03/16/[address] [facility] [address] Dung Mayo CATH IMPL VASC ACCESS PORTAL 03/03/2020 DELIVERY ONLY , low cervical x4 CHOLECYSTECTOMY 01/11/1981 Cholecystectomy COLONOSCOPY 06/21/2021 , repeat in 3 years COLONOSCOPY 01/09/2024 COLONOSCOPY FLX DX W/COLLJ SPEC WHEN PFRMD 08/30/2001 Colonoscopy COLONOSCOPY FLX DX W/COLLJ SPEC WHEN PFRMD 07/17/2012 Colonoscopy COLONOSCOPY FLX DX W/COLLJ SPEC WHEN PFRMD 12/02/2015 Colonoscopy (Needs MAC next time) COLONOSCOPY GEN ANES 01/16/2020 COLONOSCOPY W/BIOPSY SINGLE/MULTIPLE 06/01/2006 EGD 01/16/2020 EGD 01/09/2024 EGD FLEX REMOVAL LESION(S) BY HOT BIOPSY FORCEPS 08/30/2001 EGD TRANSORAL BIOPSY SINGLE/MULTIPLE 06/01/2006 EGD TRANSORAL BIOPSY SINGLE/MULTIPLE 12/23/2009 EGD W/O BRSH SPEC VARICIES INJ 06/21/2021 EGD W/O BRSH SPEC VARICIES INJ 07/25/2022 ESOPHAGOGASTRODUODENOSCOPY TRANSORAL DIAGNOSTIC 12/02/2015 EGD IMAGING GUIDED RADIOFREQUENCY LIVER ABLATION 04/2020 ablation IR RADIO FREQUENCY ABLATION 11/2017 LAPAROSCOPIC HEMICOLECTOMY 01/26/2020 LIG/TRNSXJ FLP TUBE ABDL/VAG APPR UNI/BI Tubal ligation MASTECTOMY, PARTIAL 03/16/[address] [facility] [address] Dung Mayo PREOP PLACEMENT NEEDLE LOC 03/16/2010 U/S wire loc UOQ right breast PULMONARY FUNCTION TEST 05/22/2005 SIGMOIDOSCOPY FLX DX W/COLLJ SPEC BR/WA IF PFRMD 04/06/1999 Sigmoidoscopy, flexible TONSILLECTOMY PRIMARY/SECONDARY <AGE 10 age 3 Tonsillectomy PMH, Social history, family history and surgical history reviewed and updated in EMR REVIEW OF SYSTEMS: CONSTITUTIONAL: No fevers, chills, nightsweats, unintended weight loss HEENT: Denies nasal congestion/sinus symptoms CARDIOVASCULAR: No chest pain palpitations. Chronic edema PULM: See HPI NEURO: No new balance problems, peripheral weakness/paresthesias or numbness of concern. Rolling walker MUSC-SKEL: Arthritis pain INTEGUMENTARY: No new skin changes PHYSICAL EXAMINATION: BP 104/72 Pulse 69 Ht 5' 2" (1.58m) Wt 208 lb (94.3kg) SpO2 96% BMI 38.03 kg/(m^2). General Appearance: Obese female, NAD. Skin: Skin color, texture, turgor normal, no suspicious rashes or lesions. Oropharynx: No oral lesions Neck: No masses or adenopathy. Lungs: Not labored, normal to percussion, no wheezes or crackles. Heart: Regular rate and rhythm, no murmurs or gallops. Extremities: Chronic edema, no clubbing. Assessment/Plan: 1. Mild COPD -Mild COPD due to secondhand smoke exposure -Clinically controlled with as needed albuterol 2. Pulmonary nodules -Stable pulmonary nodules -Follows with oncology 3. Class II obesity -BMI 38 -Weight loss advised Shantell Lorenzana MD [facility] [place] documented in this encounter [facility] 02-01-2024 Telephone encounter Note Pt calling with concerns about going to [place] for stereotactic biopsy. She found out that [facility] does them and called to get information. She was told that Dr. Pérez would need to refer her to their General Surgery Department for them to arrange the biopsy. Shared concerns about imaging being available and changing care to another provider. She asks that we check with Dr. Pérez to see if he can order the test at [facility] or if there are any other options aside from [facility] [place]. Please review and advise. Mya Tobin MA [facility] 01-29-2024 History of Present illness Narrative I reviewed 01/15/24 right mammogram compared to multiple older studies. There are grouped calcifications in the right upper outer quadrant that are likely dystrophic that are coarse and punctate. Right stereotactic biopsy has been ordered. documented in this encounter [facility] 01-25-2024 Telephone encounter Note Patient needs a stereotactic biopsy scheduled. Order is placed. Snow Graham [facility] 01-25-2024 Miscellaneous Notes Patient needs a stereotactic biopsy scheduled. Order is placed. Snow Graham documented in this encounter [facility] 01-23-2024 History of Present illness Narrative REVIEW OF SYSTEMS: General: The patient NOTES fatigue, denies weight loss, denies weight gain, denies feeling hot, and denies feelings of cold. Eyes: The patient denies glaucoma, NOTES eye injury/surgery, wears glasses or contacts. Ear/Nose/Throat: The patient denies allergies, denies hayfever, denies ear infections, and denies bloody noses. Cardiovascular: The patient denies chest pain, denies heart disease, NOTES high blood pressure,denies cardiac stent, denies prior heart attack, denies irregular heart beat, NOTES high cholesterol, denies poor circulation, denies heart failure, other cardiac issues, denies claudication, denies cold feet, denies peripheral arterial stent. Respiratory: The patient denies tuberculosis, denies pneumonia, denies frequent cough, denies pulmonary embolism, denies shortness of breath, and denies coughing up blood. Gastrointestinal: The patient denies difficulty swallowing, NOTES acid reflux, NOTES ulcers, denies vomiting, denies jaundice/hepatitis, NOTES gallbladder problems, denies black or tarry stools, NOTES hemorrhoids, denies bleeding from rectum, NOTES diverticulitis, NOTES constipation, denies diarrhea, denies loss of stool control, and NOTES hernias. Kidney/Bladder: The patient denies kidney stones, denies urine infections, NOTES kidney failure, and denies bloody urine. Skin: The patient denies a history of skin cancer, denies bleeding/changing moles, and denies a history of skin rash. Neurologic: The patient denies a history of epilepsy/convulsions, NOTES headaches, denies head/spinal injuries, and denies stroke/TIA. Psychiatric: The patient denies psychiatric medications, denies depression, and denies voices, denies substance abuse. Endocrine: The patient denies thyroid disorders, NOTES diabetes, and denies hormonal problems. Hematologic: The patient denies a history of bruising, denies bleeding, and NOTES anemia, denies blood clots. Infections: The patient denies a history of measles and mumps, denies rheumatic fever, and denies sexually transmitted diseases. Musculoskeletal: The patient NOTES back pain/injury, NOTES back problems, NOTES sciatica, NOTES knee/foot trouble, NOTES arthritis, or NOTES gout. When was patient's last Mammogram screening? 01/15/2024 Last Colonoscopy: 01/07/2024 Mya Tobin MA HISTORY AND PHYSICAL - BREAST COMPLAINT Saeid Casey [place]cas 1950 REFERRING PHYSICIAN: Danuta Orantes APRN.ADMINISTRATIVE PROCESSOR 3 CHIEF COMPLAINT: Right breast upper outer quadrant microcalcifications HPI: The patient is a 73 year old female with a complaint of an abnormal mammogram. The patient had a mammogram on January 15, 2024 which demonstrated: IMPRESSION: Calcifications in the right breast are suspicious for malignancy. Stereotactic biopsy is recommended. BI-RADS Category 4: Suspicious. Just recently performed upper and lower endoscopy on January 09, 2024 for change in bowel habits and nausea. The patient was seen in follow-up by Guillermina Avilesir was found to have a white open healthy anastomosis few diverticula and some gastritis. Saeid has a history of a right upper quadrant breast cancer [place] [address] Dung Mayo. She underwent a right lumpectomy with sentinel lymph node biopsy on March 16, 2010. This returned as a T1B N0 M0 lesion. She does not perform a self breast exam routinely. She notes no skin changes. She denies nipple discharge. She notes no axillary masses. She notes no family history of breast problems. She notes no significant breast trauma or breast difficulties in the past. The patient is being seen by me today at the request of Dr. Yasemin Connors MD for my opinion and advice regarding abnormal right breast imaging. PAST MEDICAL HISTORY Diagnosis Date Abdominal pain 2022 Arthritis Benign neoplasm of colon Benign polyps. 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 Lumpectomy, completed radiation 06/27/10. No chemotherapy. Myalgia and myositis, unspecified Obesity, unspecified Obesity Obstructive sleep apnea syndrome 05/24/2015 No longer needs CPAP Pain in joint of right shoulder 09/03/2014 Plantar fascial fibromatosis Seborrheic dermatitis, unspecified Shortness of breath Type II or unspecified type diabetes mellitus without mention of complication, not stated as uncontrolled Unspecified hemorrhoids without mention of complication Hemorrhoids Urinary incontinence overactive bladder PAST SURGICAL HISTORY Procedure Laterality Date ADENOIDECTOMY PRIMARY <AGE 10 age 3 Adenoidectomy BX BREAST PERC NEED W/GUID 02/11/2010 U/S Needle core UOQ right breast bx BX/EXC LYMPH NODE OPEN DEEP AXILLARY NODE 03/16/2010 RIGHT - [facility] Dr. Dung Mayo CATH IMPL VASC ACCESS PORTAL 03/03/2020 DELIVERY ONLY , low cervical x4 CHOLECYSTECTOMY 01/11/1981 Cholecystectomy COLONOSCOPY 06/21/2021 , repeat in 3 years COLONOSCOPY 01/09/2024 COLONOSCOPY FLX DX W/COLLJ SPEC WHEN PFRMD 08/30/2001 Colonoscopy COLONOSCOPY FLX DX W/COLLJ SPEC WHEN PFRMD 07/17/2012 Colonoscopy COLONOSCOPY FLX DX W/COLLJ SPEC WHEN PFRMD 12/02/2015 Colonoscopy (Needs MAC next time) COLONOSCOPY GEN ANES 01/16/2020 COLONOSCOPY W/BIOPSY SINGLE/MULTIPLE 06/01/2006 EGD 01/16/2020 EGD 01/09/2024 EGD FLEX REMOVAL LESION(S) BY HOT BIOPSY FORCEPS 08/30/2001 EGD TRANSORAL BIOPSY SINGLE/MULTIPLE 06/01/2006 EGD TRANSORAL BIOPSY SINGLE/MULTIPLE 12/23/2009 EGD W/O BRSH SPEC VARICIES INJ 06/21/2021 EGD W/O BRS SPEC VARICIES INJ 07/25/2022 ESOPHAGOGASTRODUODENOSCOPY TRANSORAL DIAGNOSTIC 12/02/2015 EGD IMAGING GUIDED RADIOFREQUENCY LIVER ABLATION 04/2020 ablation IR RADIO FREQUENCY ABLATION 11/2017 LAPAROSCOPIC HEMICOLECTOMY 01/26/2020 LIG/TRNSXJ FLP TUBE ABDL/VAG APPR UNI/BI Tubal ligation MASTECTOMY, PARTIAL 03/16/2010 RIGHT - [facility] Dr. Dung Mayo PREOP PLACEMENT NEEDLE LOC 03/16/2010 U/S wire loc UOQ right breast PULMONARY FUNCTION TEST 05/22/2005 SIGMOIDOSCOPY FLX DX W/COLLJ SPEC BR/WA IF PFRMD 04/06/1999 Sigmoidoscopy, flexible TONSILLECTOMY PRIMARY/SECONDARY <AGE 10 age 3 Tonsillectomy Current Outpatient Medications Medication Sig Dispense Refill ondansetron orally disintegrating (ZOFRAN ODT) 4 mg disintegrating tablet Take 1 tablet by mouth every 6 hours as needed for nausea/vomiting. 30 tablet 1 Fenofibrate (LOFIBRA) 54 mg tablet Take 1 tablet by mouth once daily. 90 tablet 3 magnesium oxide (MAG-OX) 400 mg (241.3 mg magnesium) tablet Take 1 tablet by mouth once daily. 90 tablet 3 fesoterodine (TOVIAZ) 4 mg Tb24 extended release tablet Take 1 tablet by mouth every afternoon. blood sugar diagnostic (N-of-OneTOUCH ULTRA TEST) test strip use 1 TEST STRIP to TEST BLOOD SUGAR once daily 100 Strip 3 metFORMIN ER (GLUCOPHAGE XR) 500 mg 24 hr tablet Take 1 tablet by mouth daily with breakfast. 90 tablet 3 albuterol HFA (PROVENTIL HFA, VENTOLIN HFA) 90 mcg/actuation inhaler Inhale 2 Puffs as instructed every 4 hours as needed. 1 Each 5 docusate sodium (COLACE) 100 mg capsule Take 1 capsule by mouth two times a day as needed for constipation. 180 capsule 1 Lancets Test blood sugar(s) 4 times daily. Dx: Type 2 DM - Uncontrolled E11.65 Insulin: Yes 100 Each 11 amLODIPine (NORVASC) 10 mg tablet Take 1 tablet by mouth once daily. 90 tablet 3 valsartan (DIOVAN) 160 mg tablet Take 1 tablet by mouth once daily. 90 tablet 3 Cholecalciferol, Vitamin D3, 25 mcg (1,000 unit) cap Take 1 capsule by mouth once daily. 90 capsule 3 amitriptyline (ELAVIL) 50 mg tablet Take 50 mg by mouth daily at bedtime. omeprazole (PRILOSEC) 40 mg capsule Take 1 capsule by mouth once daily. 90 capsule 3 metoprolol succinate ER (TOPROL XL) 50 mg 24 hr tablet Take 1 tablet by mouth once daily. 90 tablet 3 furosemide (LASIX) 20 mg tablet Take 0.5 tablets by mouth once daily. 45 tablet 3 insulin lispro (HUMALOG KWIKPEN INSULIN) 100 unit/mL Sliding scale during chemotherapy for glucose readings with meals 151 - 200 2 units 201 - 250 4 units 251 - 300 6 units 301 - 350 8 units 351-400 10 units >400 contact office 1 Each 3 insulin needles, DISPOSABLE, (PEN NEEDLE) 31 gauge x 5/16" Use one needle per dose. 3 per day. 100 Each 11 aspirin, enteric coated (ASPIRIN, ENTERIC COATED) 81 mg EC tablet Take 1 tablet by mouth once daily. diphenhydrAMINE (BENADRYL) 25 mg capsule Take 25 mg by mouth every 6 hours as needed. acetaminophen (TYLENOL) 500 mg tablet Take 500 mg by mouth every 8 hours as needed. diclofenac (VOLTAREN ARTHRITIS PAIN) 1 % topical gel Apply 2 g to affected area once daily. 200 g 11 lancets (ONE TOUCH DELICA) 33 gauge Test blood sugar(s) 1 daily. Dx: Type 2 DM - Controlled E11.9 Insulin: No 100 Each 3 hydrOXYchloroQUINE (PLAQUENIL) 200 mg tablet Take 200 mg by mouth once daily. Diclofenac Sodium (SOLARAZE) 3 % gel Apply to affected area two times a day. [place]-3 Fatty Acids 500 mg cap Take 1 capsule by mouth once daily. morphine SR (MS CONTIN, ORAMORPH SR) 15 mg 12 hr tablet Take 15 mg by mouth two times a day. cyanocobalamin (VITAMIN B-12) 1,000 mcg tab Take 1,000 mcg by mouth once daily. FOLIC ACID 800 MCG TAB Take by mouth once daily. 0 No current facility-administered medications for this visit. ALLERGIES: Ciprofloxacin, Claritin [Loratadine], Dicyclomine, E-Mycin [Erythromycin], Gemtesa [Vibegron], Macrobid [Nitrofurantoin Monohyd/M-Cryst], Myrbetriq [Mirabegron], Naproxen, Oruvail [Ketoprofen], and Relafen [Nabumetone] PERSONAL HISTORY: Social History Tobacco Use Smoking status: Never Smokeless tobacco: Never Tobacco comments: Household ETS for 50 years. Vaping Use Vaping status: Never Used Substance Use Topics Alcohol use: Not Currently Drug use: Never FAMILY HISTORY: FAMILY HISTORY Problem Relation Age of Onset Diabetes Mother Colon Cancer Mother PASSED FROM THIS AT THE AGE OF 62 Heart Father HAD AN [place] IN MID TO LATE 50s, FROM THIS. other (Other) Sister MVA No Known Problems Sister Hypertension Sister Systemic Lupus Erythematosus Sister other (RHUMATOID ARTHRITIS) Sister SAME SISTER HYPERTENSION Cancer Brother Lymphoma. Cancer free for 10 years. Coronary Artery Disease Brother Stent other (Episodes of numbness) Brother having dx testing Colon Cancer Brother Bipolar disorder Daughter Arthritis Daughter Psoriactic other (Epilepsy) Daughter other (cerebral spinal fluid leak) Son other (colitis) Son Autism Grandchild Asthma No Family History Emphysema No Family History Blood Clots No Family History No PE. REVIEW OF SYMPTOMS: The review of systems data was entered by the nurse and reviewed by me There are no exam notes on file for this visit. PHYSICAL EXAMINATION: General: The patient is 73 year old female, well nourished, well hydrated in no acute distress. The patient is oriented to time, place, and person. VITALS: There were no vitals taken for this visit. There is no height or weight on file to calculate BMI. HEENT: Normal cephalic, ataumatic, pupils are equally round, sclera are anicteric, mucous membranes are moist, oropharynx is clear. Neck has no masses, asymmetry or lymphadenopathy. Thyroid is unremarkable. Respiratory: Clear to auscultation and percussion. Normal respiratory excursion and pattern. Cardiac: Examination is regular rate and rhythm. Abdominal exam: Soft, nontender, with no palpable masses. No hepatosplenomegaly. No palpable hernias. Rectal exam: exam deferred Extremities: no clubbing, cyanosis or edema. No adenopathy. Breast: Visual inspection reveals no retractions, nipple inversion, or skin changes. Palpation of the right breast reveals no dominant or suspicious masses. Palpation of the left breast reveals no dominant or suspicious masses. Axillary exam demonstrates no suspicious masses in either the left or right axilla. There is no nipple discharge expressed from either the left or right breast. LABORATORY VALUES: As Noted RADIOLOGIC STUDIES: As Noted Assessment IMPRESSION: Abnormal right breast imaging with microcalcifications PLAN: I plan to refer her for radiologist performed stereotactic biopsy of the right breast. The planned surgical procedure was discussed extensively with the patient. The risks, benefits, anticipated outcomes and possible complications were mentioned. My staff has also explained the procedure in understandable terms and the patient was given the option to take printed material concerning the planned procedure. The patient had the opportunity to ask questions concerning the planned procedure. The patient freely consents to the planned procedure. 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 Yasemin Connors MD via shared medical record. This note will be forwarded to Dr. Yasemin Connors MD. Return to Clinic: The patient is instructed to follow-up with me after the testing has been completed. Mahin Pérez MD documented in this encounter [facility] 01-23-2024 History of Present illness Narrative CC: Patient presents with: Recheck: Follow up, abnormal labs from cardiology HPI Saeid Urbina is a 73 year old female who presents today for mutliple issues. Recent ER visit for left arm numbness that lasted a minute with negative cardiac workup but cardiology instructed her to follow up [facility] PCP to review labs. Went to [facility] 01/03 for the left arm numbness and elevated blood pressure. Arm numbness resolved on its own after a minute. CXR without concern and blood work unremarkable. Per patient was seen by cardiology without concern. AST elevation: Denies drinking alcohol and does not take tylenol. Haves ongoing nausea and bowel changes she is working with Gastrology and had recent scopes. CT of abdomen a few weeks ago showed fatty liver. History of Cholecystectomy and colon cancer. Still has appendix. HTN w/ CKD: Ms. Urbina indicates that she is feeling well and denies any symptoms referable to elevated blood pressure. Specifically denies headache, chest pain, palpitations, dyspnea, and peripheral edema. Patient denies any side effects of her medication(s) and is compliant with their regimen. She does check BP's away from this office with average BP's in the 120s/70s range. Last 3 Encounter BP Readings: Date: BP: 01/23/2024 136/78 01/17/2024 130/82 01/09/2024 146/78 Blood sugar has been ranging 90s-120s. REVIEW OF SYSTEMS See HPI PAST MEDICAL HISTORY Diagnosis Date Abdominal pain 2022 Arthritis Benign neoplasm of colon Benign polyps. 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 Lumpectomy, completed radiation 06/27/10. No chemotherapy. Myalgia and myositis, unspecified Obesity, unspecified Obesity Obstructive sleep apnea syndrome 05/24/2015 No longer needs CPAP Pain in joint of right shoulder 09/03/2014 Plantar fascial fibromatosis Seborrheic dermatitis, unspecified Shortness of breath Type II or unspecified type diabetes mellitus without mention of complication, not stated as uncontrolled Unspecified hemorrhoids without mention of complication Hemorrhoids Urinary incontinence overactive bladder PAST SURGICAL HISTORY Procedure Laterality Date ADENOIDECTOMY PRIMARY <AGE 10 age 3 Adenoidectomy BX BREAST PERC NEED W/GUID 02/11/2010 U/S Needle core UOQ right breast bx BX/EXC LYMPH NODE OPEN DEEP AXILLARY NODE 03/16/2010 RIGHT - [facility] Dr. Dung Mayo CATH IMPL VASC ACCESS PORTAL 03/03/2020 DELIVERY ONLY , low cervical x4 CHOLECYSTECTOMY 01/11/1981 Cholecystectomy COLONOSCOPY 06/21/2021 , repeat in 3 years COLONOSCOPY 01/09/2024 COLONOSCOPY FLX DX W/COLLJ SPEC WHEN PFRMD 08/30/2001 Colonoscopy COLONOSCOPY FLX DX W/COLLJ SPEC WHEN PFRMD 07/17/2012 Colonoscopy COLONOSCOPY FLX DX W/COLLJ SPEC WHEN PFRMD 12/02/2015 Colonoscopy (Needs MAC next time) COLONOSCOPY GEN ANES 01/16/2020 COLONOSCOPY W/BIOPSY SINGLE/MULTIPLE 06/01/2006 EGD 01/16/2020 EGD 01/09/2024 EGD FLEX REMOVAL LESION(S) BY HOT BIOPSY FORCEPS 08/30/2001 EGD TRANSORAL BIOPSY SINGLE/MULTIPLE 06/01/2006 EGD TRANSORAL BIOPSY SINGLE/MULTIPLE 12/23/2009 EGD W/O [facility] SPEC VARICIES INJ 06/21/2021 EGD W/O [facility] SPEC VARICIES INJ 07/25/2022 ESOPHAGOGASTRODUODENOSCOPY TRANSORAL DIAGNOSTIC 12/02/2015 EGD IMAGING GUIDED RADIOFREQUENCY LIVER ABLATION 04/2020 ablation IR RADIO FREQUENCY ABLATION 11/2017 LAPAROSCOPIC HEMICOLECTOMY 01/26/2020 LIG/TRNSXJ FLP TUBE ABDL/VAG APPR UNI/BI Tubal ligation MASTECTOMY, PARTIAL 03/16/2010 RIGHT - [facility] Dr. Dung Mayo PREOP PLACEMENT NEEDLE LOC 03/16/2010 U/S wire loc UOQ right breast PULMONARY FUNCTION TEST 05/22/2005 SIGMOIDOSCOPY FLX DX W/COLLJ SPEC BR/WA IF PFRMD 04/06/1999 Sigmoidoscopy, flexible TONSILLECTOMY PRIMARY/SECONDARY <AGE 10 age 3 Tonsillectomy ALLERGIES Ciprofloxacin, Claritin [Loratadine], Dicyclomine, E-Mycin [Erythromycin], Gemtesa [Vibegron], Macrobid [Nitrofurantoin Monohyd/M-Cryst], Myrbetriq [Mirabegron], Naproxen, Oruvail [Ketoprofen], and Relafen [Nabumetone] MEDICATIONS ondansetron orally disintegrating (ZOFRAN ODT) 4 mg disintegrating tablet Take 1 tablet by mouth every 6 hours as needed for nausea/vomiting. magnesium oxide (MAG-OX) 400 mg (241.3 mg magnesium) tablet Take 1 tablet by mouth once daily. fesoterodine (TOVIAZ) 4 mg Tb24 extended release tablet Take 1 tablet by mouth every afternoon. blood sugar diagnostic (N-of-OneTOUCH ULTRA TEST) test strip use 1 TEST STRIP to TEST BLOOD SUGAR once daily metFORMIN ER (GLUCOPHAGE XR) 500 mg 24 hr tablet Take 1 tablet by mouth daily with breakfast. albuterol HFA (PROVENTIL HFA, VENTOLIN HFA) 90 mcg/actuation inhaler Inhale 2 Puffs as instructed every 4 hours as needed. docusate sodium (COLACE) 100 mg capsule Take 1 capsule by mouth two times a day as needed for constipation. Lancets Test blood sugar(s) 4 times daily. Dx: Type 2 DM - Uncontrolled E11.65 Insulin: Yes amLODIPine (NORVASC) 10 mg tablet Take 1 tablet by mouth once daily. valsartan (DIOVAN) 160 mg tablet Take 1 tablet by mouth once daily. Cholecalciferol, Vitamin D3, 25 mcg (1,000 unit) cap Take 1 capsule by mouth once daily. amitriptyline (ELAVIL) 50 mg tablet Take 50 mg by mouth daily at bedtime. omeprazole (PRILOSEC) 40 mg capsule Take 1 capsule by mouth once daily. metoprolol succinate ER (TOPROL XL) 50 mg 24 hr tablet Take 1 tablet by mouth once daily. furosemide (LASIX) 20 mg tablet Take 0.5 tablets by mouth once daily. insulin lispro (HUMALOG KWIKPEN INSULIN) 100 unit/mL Sliding scale during chemotherapy for glucose readings with meals 151 - 200 2 units 201 - 250 4 units 251 - 300 6 units 301 - 350 8 units 351-400 10 units >400 contact office insulin needles, DISPOSABLE, (PEN NEEDLE) 31 gauge x 5/16" Use one needle per dose. 3 per day. aspirin, enteric coated (ASPIRIN, ENTERIC COATED) 81 mg EC tablet Take 1 tablet by mouth once daily. diphenhydrAMINE (BENADRYL) 25 mg capsule Take 25 mg by mouth every 6 hours as needed. acetaminophen (TYLENOL) 500 mg tablet Take 500 mg by mouth every 8 hours as needed. diclofenac (VOLTAREN ARTHRITIS PAIN) 1 % topical gel Apply 2 g to affected area once daily. lancets (ONE TOUCH DELICA) 33 gauge Test blood sugar(s) 1 daily. Dx: Type 2 DM - Controlled E11.9 Insulin: No [DISCONTINUED] Omeprazole Magnesium (PRILOSEC OTC) 20 mg tablet Take 2 tablets by mouth once daily. Fenofibrate (LOFIBRA) 54 mg tablet Take 54 mg by mouth once daily. hydrOXYchloroQUINE (PLAQUENIL) 200 mg tablet Take 200 mg by mouth once daily. Diclofenac Sodium (SOLARAZE) 3 % gel Apply to affected area two times a day. [place]-3 Fatty Acids 500 mg cap Take 1 capsule by mouth once daily. morphine SR (MS CONTIN, ORAMORPH SR) 15 mg 12 hr tablet Take 15 mg by mouth two times a day. cyanocobalamin (VITAMIN B-12) 1,000 mcg tab Take 1,000 mcg by mouth once daily. FOLIC ACID 800 MCG TAB Take by mouth once daily. FAMILY HISTORY Problem Relation Age of Onset Diabetes Mother Colon Cancer Mother PASSED FROM THIS AT THE AGE OF 62 Heart Father HAD AN [place] IN MID TO LATE 50s, FROM THIS. other (Other) Sister MVA No Known Problems Sister Hypertension Sister Systemic Lupus Erythematosus Sister other (RHUMATOID ARTHRITIS) Sister SAME SISTER HYPERTENSION Cancer Brother Lymphoma. Cancer free for 10 years. Coronary Artery Disease Brother Stent other (Episodes of numbness) Brother having dx testing Colon Cancer Brother Bipolar disorder Daughter Arthritis Daughter Psoriactic other (Epilepsy) Daughter other (cerebral spinal fluid leak) Son other (colitis) Son Autism Grandchild Asthma No Family History Emphysema No Family History Blood Clots No Family History No PE. Social History Tobacco Use Smoking status: Never Smokeless tobacco: Never Tobacco comments: Household ETS for 50 years. Vaping Use Vaping status: Never Used Substance Use Topics Alcohol use: Not Currently Drug use: Never PHYSICAL EXAM BP 136/78 Pulse 74 Resp 16 Wt 94.3 kg (208 lb) SpO2 96% BMI 36.85 kg/m General Appearance: well appearing, in no acute distress, alert Pysch: mood and affect broad and appropriate Eyes: conjunctiva pink and moist, no icterus, sclera white, non-injected Lungs: Lungs clear to auscultation. No wheezing, rhonchi, rales. Heart: RRR without murmur, gallop, or rubs. No ectopy Health maintenance reviewed with patient: DTaP,Tdap,Td Vaccine(2 - Td or Tdap) due on 09/09/2020 BP Controlled (<130/80) due on 12/06/2021 Urine Albumin:Creatinine Ratio due on 12/12/2023 RSV Vaccine(1 - 1-dose 75+ series) Never done HbA1C due on 01/19/2024 Covid-19 Vaccine(2023- season) due on 10/24/2024 Dilated Retinal Exam due on 03/12/2024 LDL Cholesterol due on 08/09/2024 Hemoglobin/Hematocrit due on 10/01/2024 Annual PCP Team Chronic Disease Visit due on 10/24/2024 Depression Screening due on 10/24/2024 Anxiety Screening due on 10/24/2024 Diabetic Foot Exam due on 12/17/2024 Serum Creatinine due on 01/06/2025 Colorectal Cancer Screening due on 01/08/2027 Bone Density Screening Completed Spirometry Completed Influenza Vaccine Completed Advance Directive Discussion Completed Hepatitis C Screening Completed Shingrix Vaccine Completed Pneumococcal Vaccine: 50+ Completed HPV Vaccine Aged Out Mammogram Screening Discontinued Alpha-1 Antitrypsin Deficiency Screening Discontinued DATA REVIEWED: Outside chart from [facility] reviewed. ASSESSMENT/PLAN: 1. Elevated AST (SGOT) - ICD9: 790.4, ICD10: R74.01 (primary diagnosis) Does have fatty liver - will double check Continue with seeing GI 2. 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) - ICD9: 250.60, 357.2, ICD10: E11.42 - Control undetermined, due for labs - will review at follow up appointment - Continue current medications - Blood glucose monitoring on a once daily schedule - Counseled on healthy diet and regular exercise - Discussed need for and benefit of weight loss. BMI 36.85 kg/(m^2) - COMPREHENSIVE METABOLIC PANEL - HEMOGLOBIN A1C 3. Hypertension goal BP (blood pressure) < 150/90 - ICD9: 401.9, ICD10: I10 - Controlled - Continue current medications - Recommend home blood pressure monitoring, to bring results to next visit - Encouraged sodium restriction, DASH or Mediterranean diet - Recommend regular aerobic exercise - COMPREHENSIVE METABOLIC PANEL 4. Stage 3 chronic kidney disease, unspecified whether stage 3a or 3b CKD (HCC) - ICD9: 585.3, ICD10: N18.30 - eGFR: 58 needs revaluated to identify stability. - Counseled on avoiding NSAIDs, adequate hydration - COMPREHENSIVE METABOLIC PANEL 5. Left arm numbness - ICD9: 782.0, ICD10: R20.0 Resolved quickly, unsure on cause and no further reoccurrences in a month If this occurs again, she needs evaluated in office for possible imaging or other further diagnostics. Prescription instructions reviewed with patient as applicable. Potential red flag symptoms discussed with the patient. Reviewed appropriate action plan to take if red flag symptoms occur. Patient agreeable to treatment plan. Estefani Willard APRN.CNP Medical Decision Making: Problems: Moderate: 2+ stable chronic illnesses and New problem with uncertain prognosis Data: Unique source(s) for external note(s) reviewed: 1 Unique test(s) ordered: 2 Risk: Low: Low risk from testing/treatment Medical Decision Making Level: 4 - Moderate documented in this encounter [facility] 01-19-2024 Telephone encounter Note Prescription Refill Information The patient has been identified by name and date of : Yes Caregiver verified no other encounters exist for this prescription request: Yes Caregiver confirmed with patient/requestor that no other refills are due, in the near future, with this provider at this time: Yes The last office visit in the department: 10/25/23 Does the patient have a future office visit with this provider/department: Yes Requested Prescriptions Pending Prescriptions Disp Refills ondansetron orally disintegrating (ZOFRAN ODT) 4 mg disintegrating tablet 30 tablet 1 Sig: Take 1 tablet by mouth every 6 hours as needed for nausea/vomiting. Vianney Cortez January 19, 2024 9:45 AM [facility] 01-19-2024 Miscellaneous Notes Prescription Refill Information The patient has been identified by name and date of : Yes Caregiver verified no other encounters exist for this prescription request: Yes Caregiver confirmed with patient/requestor that no other refills are due, in the near future, with this provider at this time: Yes The last office visit in the department: 10/25/23 Does the patient have a future office visit with this provider/department: Yes Requested Prescriptions Pending Prescriptions Disp Refills ondansetron orally disintegrating (ZOFRAN ODT) 4 mg disintegrating tablet 30 tablet 1 Sig: Take 1 tablet by mouth every 6 hours as needed for nausea/vomiting. Vianney Cortez January 19, 2024 9:45 AM documented in this encounter [facility] 01-17-2024 Instructions Dayan Silverman APRN.ADMINISTRATIVE PROCESSOR - 01/17/2024 1:12 PM EST GASTRITIS/GERD I discussed with you the findings of your upper endoscopy. Your upper endoscopy demonstrated signs of peptic ulcer disease or irritation. This can be seen as a range of issues from actual ulcers in the stomach or duodenum (first part of the small bowel) or irritation ranging from redness to more significant irritation with erosions of the stomach or duodenum. These conditions are usually caused from a combination of too much acid production or too little protective mucus production in the stomach. Factors that increase acid production include smoking and stress. If you smoke, stopping smoking will often cure these issues without needing other medications. Factors that decrease the stomach's production of protective mucus include alcohol consumption, smoking, aspirin and other anti-inflammatory use. Over the counter medications including antiacids and acid reducing medications including H2 blockers (Zantac and the like) and proton pump inhibitors (prilosec, prevacid and the like) neutralize or prevent acid production. Avoiding smoking, alcohol and antiinflammatory medications are important in the successful treatment of peptic diseases. Your esophagus can look normal at upper endoscopy and you still have GERD. Multiple factors effect GERD symptoms - acid production, obesity, smoking, food consumption, and time of meals Other factors that contribute to GERD and esophagitis are being overweight, eating large meals before laying down and certain foods. Weight loss will help improve many GERD complaints. Remaining upright after eating large meals and having a small supper will also help symptoms. Avoiding food that contribute to reflux - chocolate, caffeine, cheddar cheese may also help. New or worsening symptoms such are epigastric pain, burning, difficulty swallowing or food sticking should be relayed to your physician. Feeling full early after eating, or black, tarry, foul smelling stools are also worrisome. If you have any difficulties or concerns, you should contact our office immediately. documented in this encounter [facility] 01-17-2024 History of Present illness Narrative FOLLOW UP VISIT - ENDOSCOPY Saeid L Dorcas 1950 [id number] REFERRING PHYSICIAN: Mahin Pérez [address] [facility] [id number] Saeid Urbina is a patient I am following for nausea and change in bowel habits. Dr. Pérez performed upper & lower endoscopy on 01/09/24. The patient was found to have EGD mpression: - Normal examined jejunum. Biopsied. - Normal examined duodenum. - Gastritis, characterized by erythema, friability and nodularity. Biopsied. - Normal esophagus. COLONOSCOPY Impression: - Patent functional end-to-end ileo-colonic anastomosis, characterized by healthy appearing mucosa. - The examined portion of the ileum was normal. - Diverticulosis in the sigmoid colon. - The examination was otherwise normal on direct and retroflexion views. - No specimens collected. Pathology demonstrated: FINAL DIAGNOSIS A. Jejunum, biopsy: - Small bowel mucosa with no significant diagnostic alteration. B. Stomach, antrum, biopsy: - Chronic active antral gastritis. - Immunohistochemistry for Helicobacter pylori will be reported in an addendum. Immunohistochemical stain for Helicobacter pylori performed on the gastric biopsy is negative (Block B1). The patient notes continued intermittent nausea since the procedure.She notes she is unable to pin point when or what will cause it, it typically happens after eating. Last time she had eaten PB&J and chicken noodle soup. She does admit to being under stress with her daughter who is epileptic and switching medications. Saeid also notes that she has to have a breast biopsy. Saeid notes she uses spearmint gum to help relief the nausea. VITALS: There were no vitals taken for this visit. General: patient is alert, cooperative, pleasant and in no acute distress On examination, the abdomen is benign. Assessment ASSESSMENT/PLAN: 1. Chronic gastritis without bleeding, unspecified gastritis type - ICD9: 535.10, ICD10: K29.50 - Avoid aggravating factors as discussed - Continue prilosec - Use iván or peppermint for nausea relief The operative findings and pathology report were reviewed with the patient, and the patient has had the opportunity to ask questions and have questions answered. If the patient notes any problems or changes in bowel function, the patient should contact me immediately. Otherwise I recommend follow up endoscopy as symptoms dictate & colonoscopy in 5 years. updated and recall letter generated. Discussed treatment plan and patient voices understanding. Patient's questions answered appropriately. Medications and potential side effects were discussed and patient voices understanding. Return to the office as scheduled or as needed for worsening/no improvement. Dayan Silverman APRN.ADMINISTRATIVE PROCESSOR documented in this encounter [facility] 01-16-2024 Telephone encounter Note Snow Toth with [facility] calls to let provider know that patient was to see her and patient reported feeling fatigued so [facility] Abnormal labs included Calcium 10.2 mg/dL, Vitamin D 23.5 ng/mL, and Parathyroid 95.3 pg/mL. Snow wanted to refer to endocrinology for increased parathyroid but patient requesting to see PCP office first. Contacted patient and scheduled for 02/05/2024 with Lisa Henderson. Patient declined first available appointment on 01/21/2024. Lynette Keita RN [facility] 01-16-2024 Miscellaneous Notes Snow Toth with [facility] calls to let provider know that patient was to see her and patient reported feeling fatigued so she had labs done which are available in [facility]. Abnormal labs included Calcium 10.2 mg/dL, Vitamin D 23.5 ng/mL, and Parathyroid 95.3 pg/mL. Snow wanted to refer to endocrinology for increased parathyroid but patient requesting to see PCP office first. Contacted patient and scheduled for 02/05/2024 with Lisa Henderson. Patient declined first available appointment on 01/21/2024. Lynette Keita RN documented in this encounter [facility] 01-15-2024 History of Present illness Narrative Radiology Service Progress Note PATIENT NAME: Saeid Urbina DATE OF SERVICE: January 15, 2024 TIME: 1:54 PM PATIENT IDENTITY VERIFICATION COMPLETED USING TWO (2) IDENTIFIERS: Name and Date of confirmed by patient verbally. FALL SCREENING: Has the patient had 2 falls in the last year or 1 fall with injury or currently using an Ambulatory Assistive Device (Walker, Cane, Wheelchair, Crutches, etc.)? No PATIENT GENDER DATA: Female. status: : No status: NO. PATIENT RELEVANT IMPLANT DATA REVIEWED: Not Applicable PATIENT PRESENTS WITH AN IMPLANTABLE OR ATTACHED TILE SORTER: No RADIOLOGY DEPARTMENT: Mammography PERIPHERAL IV DATA: Not applicable SIGNED BY: Jhon Marroquin January 15, 2024 1:54 PM documented in this encounter [facility] 01-09-2024 Note Formatting of this n ote might be different from the original. The patient received a copy of Colonoscopy and EGD discharge instructions that contain information for how to contact the physician who performed the procedure and when to seek medical care. [facility] 01-09-2024 Miscellaneous Notes The patient received a copy of Colonoscopy and EGD discharge instructions that contain information for how to contact the physician who performed the procedure and when to seek medical care. documented in this encounter [facility] 01-09-2024 Nurse Note Abdomen soft non-distended. Will continue to monitor. [facility] 01-09-2024 Nurse Note Abdomen soft non-distended. Will continue to monitor. documented in this encounter [facility] 01-07-2024 History of Present illness Narrative Radiology Service Progress Note DATE OF SERVICE: January 07, 2024 TIME: 3:00 PM PATIENT IDENTITY VERIFICATION COMPLETED USING TWO (2) STANDARD IDENTIFIERS: Name and Date of confirmed by patient verbally. FALL SCREENING: Has the patient had 2 falls in the last year or 1 fall with injury or currently using an Ambulatory Assistive Device (Walker, Cane, Wheelchair, Crutches, etc.)? No PATIENT GENDER DATA: Female. status: : No status: NO. PATIENT RELEVANT IMPLANT DATA REVIEWED: Yes PATIENT PRESENTS WITH AN IMPLANTABLE OR ATTACHED TILE SORTER: No ALLERGIES: Reviewed and unchanged CONTRAST ALLERGY: NO. EXAM: CT -CONTRAST INDUCED NEPHROPATHY RISK FACTORS: Patient age > 60 years CREATININE: Creatinine Date Value Ref Range Status 01/07/2024 1.01 (H) 0.58 - 0.96 mg/dL Final 10/02/2023 1.07 (H) 0.58 - 0.96 mg/dL Final 08/10/2023 0.96 0.58 - 0.96 mg/dL Final Estimated Glomerular Filtration Rate Date Value Ref Range Status 01/07/2024 58 (L) >=60 mL/min/1.73m Final Comment: Estimated Glomerular Filtration Rate (eGFR) is calculated using the 2020 CKD-EPI creatinine equation. This equation utilizes serum creatinine, sex, and age as parameters. The creatinine assay has traceable calibration to isotope dilution-mass spectrometry. Refer to KDIGO guidelines for clinical interpretation. In patients with unstable renal function, e.g. those with acute kidney injury, the eGFR may not accurately reflect actual GFR. eGFR- Date Value Ref Range Status 03/28/2021 >60 Final P.O.C.T. RESULTS: POC done: Yes, See Lab Tab January 07, 2024 TREATMENT: N/A PERIPHERAL IV DATA: Ambulatory: A peripheral IV was started in the Left antecubital site with a Angio cath: 22 gauge. RADIOLOGY DEPARTMENT: CT; Exam(s) Completed: Chest Abdomen Pelvis SIGNATURE: RT Farzana(R) PATIENT NAME: Saeid Urbina DATE: January 07, 2024 TIME: 3:00 PM documented in this encounter [facility] 12-18-2023 Instructions Patricia Deluca - 12/18/2023 1:39 PM EST Diabetes Foot Care Instructions When you have diabetes, proper foot care is very important. Poor foot care may lead to amputation of a foot or leg. As a person with diabetes, you are more vulnerable to foot problems, because diabetes can damage your nerves and reduce blood flow to your feet. Here are some diabetes foot care tips to follow: Wash and Dry Your Feet Daily Use mild soaps Use warm water Pat your skin dry; do not rub. Thoroughly dry your feet. After washing, use lotion on your feet to prevent cracking. Do not put lotion between your toes. Examine Your Feet Each Day Check the tops and bottoms of your feet. Have someone else look at your feet if you cannot see them. Check for dry, cracked skin. Look for blisters, cuts, scratches, or other sores. Check for redness, increased warmth, or tenderness when touching any area of your feet. Check for ingrown toenails, corns, and calluses. If you get a blister or sore from your shoes, do not "pop" it. Apply a bandage and wear a different pair of shoes. Take Care of Your Toenails Cut toenails after bathing, when they are soft. Cut toenails straight across and smooth with a nail file. Avoid cutting into the corners of toes. Do not cut cuticles. If you have neuropathy (or decreased sensation in your feet) a head start assistant teacher should always cut your toenails. Be Careful When Exercising Walk and exercise in comfortable shoes. Do not exercise when you have open sores on your feet. Protect Your Feet With Shoes and Socks Never go barefoot. Always protect your feet by wearing shoes or hard-soled slippers or footwear. Avoid shoes with high heels and pointed toes. Avoid shoes that expose your toes or heels (such as open-toed shoes or sandals). These types of shoes increase your risk for injury and potential infections. Try on new footwear with the type of socks you usually wear. Do not wear new shoes for more than an hour at a time. Change your socks daily. Look and feel inside your shoes before putting them on to make sure there are no foreign objects or rough areas. Avoid tight socks. Wear natural-fiber socks (cotton, wool, or a cotton-wool blend). Wear special shoes if your health care provider recommends them. Wear shoes/boots that will protect your feet from various weather conditions (cold, moisture, etc.). Make sure your shoes fit properly. If you have neuropathy (nerve damage), you may not notice that your shoes are too tight. Perform the "footwear test" described below. Footwear Test Use this simple test to see if your shoes fit correctly: Stand on a piece of paper. (Make sure you are standing and not sitting, because your foot changes shape when you stand.) Trace the outline of your foot. Trace the outline of your shoe. Compare the tracings: Is the shoe too narrow? Is your foot crammed into the shoe? The shoe should be at least 1/2 inch longer than your longest toe and as wide as your foot. Proper Shoe Choices The following types of shoes are best for people with diabetes Closed toes and heels Leather uppers without a seam inside At least 1/2 inch extra space at the end of your longest toe Inside of shoe should be soft with no rough areas Outer sole should be made of stiff material Shoes should be at least as wide as your feet Tips for Foot Care in Diabetes Don't wait to treat a minor foot problem if you have diabetes. Follow your health care provider's guidelines and first aid guidelines. Report foot injuries and infections to your health care provider immediately. Check water temperature with your elbow, not your foot. Do not use a heating pad on your feet. Do not cross your legs. Do not self-treat your corns, calluses, or other foot problems. Go to your health care provider or head start assistant teacher to treat these conditions. documented in this encounter [facility] 12-18-2023 History of Present illness Narrative Images from the original note were not included. Subjective: This 72 year old female presents to clinic for diabetic foot check. Patient denies any foot complaints. Patient admits to being diabetic for multiple years now. Patient -B/T/N in feet at this time. Patient -pain in legs when walking. No other pedal complaints at this time. No change in medications or medical history since last visit. PAIN EVALUATION 12/17/2023 1137 Pain Level: 6 Pain Location: Foot-Left Description: Sharp Duration Amount of Time: 1 Duration Units: Minutes Frequency: Intermittent Intervention/Comfort measure: Medication;Relaxation Comments: On and off pain Hemoglobin A1C (%) Date Value 07/20/2023 6.4 04/06/2023 6.0 12/05/2022 5.7 06/19/2022 5.8 04/14/2022 6.1 12/07/2020 6.7 08/27/2020 6.4 04/14/2020 6.0 12/22/2019 6.0 06/10/2019 6.0 Hemoglobin A1C (POCT) (%) Date Value 12/09/2021 6.2 09/06/2021 6.1 06/06/2021 6.4 PCP: Yasemin Connors MD PAST MEDICAL HISTORY Diagnosis Date Abdominal pain 2022 Arthritis Benign neoplasm of colon Benign polyps. 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 Lumpectomy, completed radiation 06/27/10. No chemotherapy. Myalgia and myositis, unspecified Obesity, unspecified Obesity Obstructive sleep apnea syndrome 05/24/2015 No longer needs CPAP Pain in joint of right shoulder 09/03/2014 Plantar fascial fibromatosis Seborrheic dermatitis, unspecified Shortness of breath Type II or unspecified type diabetes mellitus without mention of complication, not stated as uncontrolled Unspecified hemorrhoids without mention of complication Hemorrhoids Urinary incontinence overactive bladder Current Outpatient Medications Medication Sig fesoterodine (TOVIAZ) 4 mg Tb24 extended release tablet Take 1 tablet by mouth every afternoon. metFORMIN ER (GLUCOPHAGE XR) 500 mg 24 hr tablet Take 1 tablet by mouth daily with breakfast. albuterol HFA (PROVENTIL HFA, VENTOLIN HFA) 90 mcg/actuation inhaler Inhale 2 Puffs as instructed every 4 hours as needed. docusate sodium (COLACE) 100 mg capsule Take 1 capsule by mouth two times a day as needed for constipation. amLODIPine (NORVASC) 10 mg tablet Take 1 tablet by mouth once daily. valsartan (DIOVAN) 160 mg tablet Take 1 tablet by mouth once daily. Cholecalciferol, Vitamin D3, 25 mcg (1,000 unit) cap Take 1 capsule by mouth once daily. amitriptyline (ELAVIL) 50 mg tablet Take 50 mg by mouth daily at bedtime. omeprazole (PRILOSEC) 40 mg capsule Take 1 capsule by mouth once daily. metoprolol succinate ER (TOPROL XL) 50 mg 24 hr tablet Take 1 tablet by mouth once daily. furosemide (LASIX) 20 mg tablet Take 0.5 tablets by mouth once daily. magnesium oxide (MAG-OX) 400 mg (241.3 mg magnesium) tablet Take 1 tablet by mouth once daily. insulin lispro (HUMALOG KWIKPEN INSULIN) 100 unit/mL Sliding scale during chemotherapy for glucose readings with meals 151 - 200 2 units 201 - 250 4 units 251 - 300 6 units 301 - 350 8 units 351-400 10 units >400 contact office aspirin, enteric coated (ASPIRIN, ENTERIC COATED) 81 mg EC tablet Take 1 tablet by mouth once daily. ondansetron orally disintegrating (ZOFRAN ODT) 4 mg disintegrating tablet Take 1 tablet by mouth every 6 hours as needed for nausea/vomiting. diphenhydrAMINE (BENADRYL) 25 mg capsule Take 25 mg by mouth every 6 hours as needed. acetaminophen (TYLENOL) 500 mg tablet Take 500 mg by mouth every 8 hours as needed. diclofenac (VOLTAREN ARTHRITIS PAIN) 1 % topical gel Apply 2 g to affected area once daily. Fenofibrate (LOFIBRA) 54 mg tablet Take 54 mg by mouth once daily. hydrOXYchloroQUINE (PLAQUENIL) 200 mg tablet Take 200 mg by mouth once daily. Diclofenac Sodium (SOLARAZE) 3 % gel Apply to affected area two times a day. [place]-3 Fatty Acids 500 mg cap Take 1 capsule by mouth once daily. morphine SR (MS CONTIN, ORAMORPH SR) 15 mg 12 hr tablet Take 15 mg by mouth two times a day. cyanocobalamin (VITAMIN B-12) 1,000 mcg tab Take 1,000 mcg by mouth once daily. FOLIC ACID 800 MCG TAB Take by mouth once daily. blood sugar diagnostic (ONETOUCH ULTRA TEST) test strip use 1 TEST STRIP to TEST BLOOD SUGAR once daily Lancets Test blood sugar(s) 4 times daily. Dx: Type 2 DM - Uncontrolled E11.65 Insulin: Yes insulin needles, DISPOSABLE, (PEN NEEDLE) 31 gauge x 5/16" Use one needle per dose. 3 per day. lancets (ONE TOUCH DELICA) 33 gauge Test blood sugar(s) 1 daily. Dx: Type 2 DM - Controlled E11.9 Insulin: No No current facility-administered medications for this visit. ALLERGIES Allergen Reactions Ciprofloxacin Hives Claritin [Loratadin* Intolerance Dicyclomine Other: See Comments, Unknown E-Mycin [Erythromyc* GI Upset, Itching Gemtesa [Vibegron] Swelling Facial swelling Macrobid [Nitrofura* Swelling, Itching Myrbetriq [Mirabegr* Swelling Naproxen Swelling Feet swelled in 2 days Oruvail [Ketoprofen] Rash Relafen [Nabumetone] swelling PAST SURGICAL HISTORY Procedure Laterality Date ADENOIDECTOMY PRIMARY <AGE 10 age 3 Adenoidectomy BX BREAST PERC NEED W/GUID 02/11/2010 U/S Needle core UOQ right breast bx BX/EXC LYMPH NODE OPEN DEEP AXILLARY NODE 03/16/[address] [facility] [address] Dung Mayo CATH IMPL VASC ACCESS PORTAL 03/03/2020 DELIVERY ONLY , low cervical x4 CHOLECYSTECTOMY 01/11/1981 Cholecystectomy COLONOSCOPY 06/21/2021 , repeat in 3 years COLONOSCOPY FLX DX W/COLLJ SPEC WHEN PFRMD 08/30/2001 Colonoscopy COLONOSCOPY FLX DX W/COLLJ SPEC WHEN PFRMD 07/17/2012 Colonoscopy COLONOSCOPY FLX DX W/COLLJ SPEC WHEN PFRMD 12/02/2015 Colonoscopy (Needs MAC next time) COLONOSCOPY GEN ANES 01/16/2020 COLONOSCOPY W/BIOPSY SINGLE/MULTIPLE 06/01/2006 EGD 01/16/2020 EGD FLEX REMOVAL LESION(S) BY HOT BIOPSY FORCEPS 08/30/2001 EGD TRANSORAL BIOPSY SINGLE/MULTIPLE 06/01/2006 EGD TRANSORAL BIOPSY SINGLE/MULTIPLE 12/23/2009 EGD W/O [facility] SPEC VARICIES INJ 06/21/2021 EGD W/O [facility] SPEC VARICIES INJ 07/25/2022 ESOPHAGOGASTRODUODENOSCOPY TRANSORAL DIAGNOSTIC 12/02/2015 EGD IMAGING GUIDED RADIOFREQUENCY LIVER ABLATION 04/2020 ablation IR RADIO FREQUENCY ABLATION 11/2017 LAPAROSCOPIC HEMICOLECTOMY 01/26/2020 LIG/TRNSXJ FLP TUBE ABDL/VAG APPR UNI/BI Tubal ligation MASTECTOMY, PARTIAL 03/16/[address] [facility] [address] Dung Mayo PREOP PLACEMENT NEEDLE LOC 03/16/2010 U/S wire loc UOQ right breast PULMONARY FUNCTION TEST 05/22/2005 SIGMOIDOSCOPY FLX DX W/COLLJ SPEC BR/WA IF PFRMD 04/06/1999 Sigmoidoscopy, flexible TONSILLECTOMY PRIMARY/SECONDARY <AGE 10 age 3 Tonsillectomy FAMILY HISTORY Problem Relation Age of Onset Diabetes Mother Colon Cancer Mother PASSED FROM THIS AT THE AGE OF 62 Heart Father HAD AN [place] IN MID TO LATE 50s, FROM THIS. other (Other) Sister MVA No Known Problems Sister Hypertension Sister Systemic Lupus Erythematosus Sister other (RHUMATOID ARTHRITIS) Sister SAME SISTER HYPERTENSION Cancer Brother Lymphoma. Cancer free for 10 years. Coronary Artery Disease Brother Stent other (Episodes of numbness) Brother having dx testing Colon Cancer Brother Bipolar disorder Daughter Arthritis Daughter Psoriactic other (Epilepsy) Daughter other (cerebral spinal fluid leak) Son other (colitis) Son Autism Grandchild Asthma No Family History Emphysema No Family History Blood Clots No Family History No PE. Social History Tobacco Use Smoking status: Never Smokeless tobacco: Never Tobacco comments: Household ETS for 50 years. Vaping Use Vaping status: Never Used Substance Use Topics Alcohol use: No Drug use: No REVIEW OF SYSTEMS GENERAL: Negative for Malaise, significant weight loss, fever RESPIRATORY: Negative for cough, wheezing and shortness of breath CARDIOVASCULAR: Negative for chest pain, leg swelling and palpitations GI: Negative for abdominal discomfort, blood in stools or black stools and change in bowel habits : Negative for dysuria, frequency and incontinence MUSCULOSKELETAL: Negative for joint pain or swelling, back pain, and muscle pain. SKIN: Negative for lesions, rash, and itching. HEMATOLOGY/LYMPHOLOGY Negative for prolonged bleeding, bruising easily, and swollen nodes. ENDOCRINE: Negative for cold or heat intolerance, polyuria, polydipsia and goiter. NEURO: negative The remainder of the review of systems is noncontributory. Objective: Patient presents to clinic ambulating in diabetic shoe Constitutional: Pt is a well developed 72 year old female who is alert, oriented, cooperative and in no apparent distress. Eyes: Following during examination. No redness or drainage. Respiratory: RR normal and nonlabored. Even breathing. No evidence of distress. Psychology: Patient is engaged during conversation. Normal affect and mood. Does not appear depressed or anxious. Vasc: DP and PT pulses are palpable bilateral. CFT is less than 5 seconds bilateral. Skin temperature is warm to warm proximal to distal bilateral. There is moderate edema or varicosities noted. Hair growth present. Neuro: Protective sensation is intact to the foot and toes when tested with the 5.07 SWM bilateral. Vibratory sensation is decreased at the hallux bilateral. + Significant neurological defecits. Derm: Inspection and palpation performed. Nails 1-5 b/l are normal in length and thickness. Skin is of normal turgor and texture. Hyperkeratosis noted to not present. NO ulcerations, scars, verruca or other lesions noted. Ortho: Ankle joint DF is full with the knee extended and full with knee flexed. No pain or crepitus noted. STJ, MTJ ROM are full and free of pain or crepitus. Muscle strength is 5/5 for dorsiflexors, plantarflexors, inverters, everters. Digital deformities include none. Midfoot spurring is noted b/l. Assessment: (E11.40, Z79.4) Type 2 diabetes mellitus with diabetic neuropathy, with long-term current use of insulin ([facility]) (primary encounter diagnosis) (M19.071, M19.072) Arthritis of both feet (I87.2) Venous insufficiency Plan: 1. Patient was seen and evaluated. 2. Patient was instructed on the continued importance of diabetic foot care along with proper diet and keeping their blood sugar under control to prevent complications. Stressed the importance of avoiding barefoot walking, wearing good shoes and inspection of feet daily. Does have swelling in both feet and sligth spurring of midfoot (arthritis). Would benefit from a diabetic custom shoe, one that accommodates foot deformity and lower extremity swelling Instructions given both oral and written. 3. Patient is to RTC in 1 year Patricia Deluca DPM Patient presents with: Left Foot - Established Patient, Follow Up Right Foot - Established Patient, Follow Up Martha Short RN documented in this encounter [facility] 12-18-2023 Telephone encounter Note Prescription Refill Information The patient has been identified by name and date of : Yes Caregiver verified no other encounters exist for this prescription request: Yes Caregiver confirmed with patient/requestor that no other refills are due, in the near future, with this provider at this time: Yes The last office visit in the department: 10/25/2023 Does the patient have a future office visit with this provider/department: Yes Requested Prescriptions Pending Prescriptions Disp Refills magnesium oxide (MAG-OX) 400 mg (241.3 mg magnesium) tablet 90 tablet 3 Sig: Take 1 tablet by mouth once daily. Sonya Ng December 18, 2023 9:23 AM [facility] 12-18-2023 Miscellaneous Notes Prescription Refill Information The patient has been identified by name and date of : Yes Caregiver verified no other encounters exist for this prescription request: Yes Caregiver confirmed with patient/requestor that no other refills are due, in the near future, with this provider at this time: Yes The last office visit in the department: 10/25/2023 Does the patient have a future office visit with this provider/department: Yes Requested Prescriptions Pending Prescriptions Disp Refills magnesium oxide (MAG-OX) 400 mg (241.3 mg magnesium) tablet 90 tablet 3 Sig: Take 1 tablet by mouth once daily. Sonya Ng December 18, 2023 9:23 AM documented in this encounter [facility] 11-29-2023 Nurse Note Patient provided copy of written instructions for colonoscopy with Miralax/Dulcolax prep. She declined education. The patient verbalized understanding and was given a number for questions.The patient was advised to hold her fish oil and contact Estefani Willard CNP regarding her diabetes medications by Ar Silverman CNP. Meme Chambers RN [facility] 11-29-2023 Nurse Note Patient provided copy of written instructions for colonoscopy with Miralax/Dulcolax prep. She declined education. The patient verbalized understanding and was given a number for questions.The patient was advised to hold her fish oil and contact Estefani Willard CNP regarding her diabetes medications by Ar Silverman CNP. Meme Chambers RN documented in this encounter [facility] 11-29-2023 History of Present illness Narrative HISTORY AND PHYSICAL Saeid Urbina : 1950 REFERRING PHYSICIAN: SELF CHIEF COMPLAINT: Patient presents with: Consult: Change in bowel habits, thinks she may need a colonoscopy. HPI: Saeid is a 72 year old female referred for endoscopy. Saeid notes recent changes in her bowel movements. Saeid refers for the last 6 months she has been struggling with constipation. She started using Miralax and corn which helped but now is having multiple soft stools, even after backing down on the Miralax to every couple of days. Saeid is concerned because some of the symptoms she is experiencing, the nausea specifically, are similar to what she had going on when she was dx with colon cancer. 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 Had colon resection and microwave ablation for liver metastasis. She completed 12 rounds of FOLFIRI. Follows with Dr. Genevieve Arboleda denies abdominal pain.. Saeid notes diarrhea. Multiple a day, non watery Saeid notes recent history of constipation. Saeid notes a change in bowel habits. Saeid denies melena. Saeid denies bright red blood per rectum. Saeid denies hemorrhoids. Saeid denies heartburn. Saeid denies dysphagia. Saeid notes a history of ulcers/ peptic ulcer disease. +nausea- with some episodes of vomiting over the last couple of months +has a rumbling in her low abd, not painful. Saeid states "it feels like a jackhammer vibrating my stomach". Has had MEDIA ANALYST & urology work up- both negative. Saeid notes family history of colon issues. Mother & brother with colon cancer. Other medical history is significant for hypertension, hypercholesterolemia, CHF, type 2 diabetes, COPD, reflux, chronic kidney disease stage III, rheumatoid arthritis, hx of breast cancer and chronic pain syndrome. She follows with [facility]. Last OV 01/2023 next appt 01/28. Last ECHO 2020 with EF of 60% Follows with Dr. Brown for chronic pain management. Takes MS contin twice a day. Saeid has undergone prior endoscopy. Last colonoscopy was 06/[address] Pérez at [facility]. Sedation:Midazolam 5 mg IV, Fentanyl 100 micrograms IV, Diphenhydramine 50 mg IV Impression: - The examined portion of the ileum was normal. - Patent end-to-side ileo-colonic anastomosis, characterized by healthy appearing mucosa. - One 6 mm polyp at the recto-sigmoid colon, removed with a cold snare. Resected and retrieved. Clip (MR conditional) was placed. - Diverticulosis in the left colon. - The examination was otherwise normal on direct and retroflexion views. Pathology: FINAL DIAGNOSIS A. Stomach, antrum, biopsy: - Antral type gastric mucosa with changes of chronic inactive gastritis. - An H. pylori immunohistochemical stain will be performed and reported as an addendum. B. Esophagus, distal, biopsy: - Squamous mucosa with no diagnostic abnormalities. - No prominence in eosinophils or lymphocytes and no intestinal metaplasia. C. Esophagus, MID, biopsy: - Squamous mucosa with no diagnostic abnormalities. - No prominence in eosinophils or lymphocytes and no intestinal metaplasia. D. Colon, rectosigmoid polyp, biopsy: - Tubular adenoma. Recommended 3 years for next scope. Had an EGD with Dr. Pérez [facility] 06/2022. Sedation: Midazolam 4 mg IV, Fentanyl 75 micrograms IV Impression: - Normal examined jejunum. - Normal examined duodenum. - Non-bleeding gastric ulcer with no stigmata of bleeding. Biopsied. - Normal gastroesophageal junction. - Non-severe reflux esophagitis with no bleeding. FINAL DIAGNOSIS A. Antrum, biopsy: - Superficial gastric mucosa with features of erosion and reactive epithelial changes. - No evidence of H. pylori Current Outpatient Medications Medication Sig fesoterodine (TOVIAZ) 4 mg Tb24 extended release tablet Take 1 tablet by mouth every afternoon. blood sugar diagnostic (KitBoost ULTRA TEST) test strip use 1 TEST STRIP to TEST BLOOD SUGAR once daily metFORMIN ER (GLUCOPHAGE XR) 500 mg 24 hr tablet Take 1 tablet by mouth daily with breakfast. albuterol HFA (PROVENTIL HFA, VENTOLIN HFA) 90 mcg/actuation inhaler Inhale 2 Puffs as instructed every 4 hours as needed. docusate sodium (COLACE) 100 mg capsule Take 1 capsule by mouth two times a day as needed for constipation. Lancets Test blood sugar(s) 4 times daily. Dx: Type 2 DM - Uncontrolled E11.65 Insulin: Yes amLODIPine (NORVASC) 10 mg tablet Take 1 tablet by mouth once daily. valsartan (DIOVAN) 160 mg tablet Take 1 tablet by mouth once daily. Cholecalciferol, Vitamin D3, 25 mcg (1,000 unit) cap Take 1 capsule by mouth once daily. amitriptyline (ELAVIL) 50 mg tablet Take 50 mg by mouth daily at bedtime. omeprazole (PRILOSEC) 40 mg capsule Take 1 capsule by mouth once daily. metoprolol succinate ER (TOPROL XL) 50 mg 24 hr tablet Take 1 tablet by mouth once daily. furosemide (LASIX) 20 mg tablet Take 0.5 tablets by mouth once daily. magnesium oxide (MAG-OX) 400 mg (241.3 mg magnesium) tablet Take 1 tablet by mouth once daily. insulin lispro (HUMALOG KWIKPEN INSULIN) 100 unit/mL Sliding scale during chemotherapy for glucose readings with meals 151 - 200 2 units 201 - 250 4 units 251 - 300 6 units 301 - 350 8 units 351-400 10 units >400 contact office insulin needles, DISPOSABLE, (PEN NEEDLE) 31 gauge x 5/16" Use one needle per dose. 3 per day. aspirin, enteric coated (ASPIRIN, ENTERIC COATED) 81 mg EC tablet Take 1 tablet by mouth once daily. ondansetron orally disintegrating (ZOFRAN ODT) 4 mg disintegrating tablet Take 1 tablet by mouth every 6 hours as needed for nausea/vomiting. diphenhydrAMINE (BENADRYL) 25 mg capsule Take 25 mg by mouth every 6 hours as needed. acetaminophen (TYLENOL) 500 mg tablet Take 500 mg by mouth every 8 hours as needed. diclofenac (VOLTAREN ARTHRITIS PAIN) 1 % topical gel Apply 2 g to affected area once daily. lancets (ONE TOUCH DELICA) 33 gauge Test blood sugar(s) 1 daily. Dx: Type 2 DM - Controlled E11.9 Insulin: No Fenofibrate (LOFIBRA) 54 mg tablet Take 54 mg by mouth once daily. hydrOXYchloroQUINE (PLAQUENIL) 200 mg tablet Take 200 mg by mouth once daily. Diclofenac Sodium (SOLARAZE) 3 % gel Apply to affected area two times a day. [place]-3 Fatty Acids 500 mg cap Take 1 capsule by mouth once daily. morphine SR (MS CONTIN, ORAMORPH SR) 15 mg 12 hr tablet Take 15 mg by mouth two times a day. cyanocobalamin (VITAMIN B-12) 1,000 mcg tab Take 1,000 mcg by mouth once daily. FOLIC ACID 800 MCG TAB Take by mouth once daily. No current facility-administered medications for this visit. ALLERGIES: Ciprofloxacin, Claritin [Loratadine], Dicyclomine, E-Mycin [Erythromycin], Gemtesa [Vibegron], Macrobid [Nitrofurantoin Monohyd/M-Cryst], Myrbetriq [Mirabegron], Naproxen, Oruvail [Ketoprofen], and Relafen [Nabumetone] PAST MEDICAL HISTORY Diagnosis Date Abdominal pain 2022 Arthritis Benign neoplasm of colon Benign polyps. 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 Lumpectomy, completed radiation 06/27/10. No chemotherapy. Myalgia and myositis, unspecified Obesity, unspecified Obesity Obstructive sleep apnea syndrome 05/24/2015 No longer needs CPAP Pain in joint of right shoulder 09/03/2014 Plantar fascial fibromatosis Seborrheic dermatitis, unspecified Shortness of breath Type II or unspecified type diabetes mellitus without mention of complication, not stated as uncontrolled Unspecified hemorrhoids without mention of complication Hemorrhoids Urinary incontinence overactive bladder PAST SURGICAL HISTORY Procedure Laterality Date ADENOIDECTOMY PRIMARY <AGE 10 age 3 Adenoidectomy BX BREAST PERC NEED W/GUID 02/11/2010 U/S Needle core UOQ right breast bx BX/EXC LYMPH NODE OPEN DEEP AXILLARY NODE 03/16/2010 RIGHT - [facility] Dr. Dung Mayo CATH IMPL VASC ACCESS PORTAL 03/03/2020 DELIVERY ONLY , low cervical x4 CHOLECYSTECTOMY 01/11/1981 Cholecystectomy COLONOSCOPY 06/21/2021 , repeat in 3 years COLONOSCOPY FLX DX W/COLLJ SPEC WHEN PFRMD 08/30/2001 Colonoscopy COLONOSCOPY FLX DX W/COLLJ SPEC WHEN PFRMD 07/17/2012 Colonoscopy COLONOSCOPY FLX DX W/COLLJ SPEC WHEN PFRMD 12/02/2015 Colonoscopy (Needs MAC next time) COLONOSCOPY GEN ANES 01/16/2020 COLONOSCOPY W/BIOPSY SINGLE/MULTIPLE 06/01/2006 EGD 01/16/2020 EGD FLEX REMOVAL LESION(S) BY HOT BIOPSY FORCEPS 08/30/2001 EGD TRANSORAL BIOPSY SINGLE/MULTIPLE 06/01/2006 EGD TRANSORAL BIOPSY SINGLE/MULTIPLE 12/23/2009 EGD W/O [facility] SPEC VARICIES INJ 06/21/2021 EGD W/O [facility] SPEC VARICIES INJ 07/25/2022 ESOPHAGOGASTRODUODENOSCOPY TRANSORAL DIAGNOSTIC 12/02/2015 EGD IMAGING GUIDED RADIOFREQUENCY LIVER ABLATION 04/2020 ablation IR RADIO FREQUENCY ABLATION 11/2017 LAPAROSCOPIC HEMICOLECTOMY 01/26/2020 LIG/TRNSXJ FLP TUBE ABDL/VAG APPR UNI/BI Tubal ligation MASTECTOMY, PARTIAL 03/16/2010 RIGHT - [facility] Dr. Dung Mayo PREOP PLACEMENT NEEDLE LOC 03/16/2010 U/S wire loc UOQ right breast PULMONARY FUNCTION TEST 05/22/2005 SIGMOIDOSCOPY FLX DX W/COLLJ SPEC BR/WA IF PFRMD 04/06/1999 Sigmoidoscopy, flexible TONSILLECTOMY PRIMARY/SECONDARY <AGE 10 age 3 Tonsillectomy FAMILY HISTORY Problem Relation Age of Onset Diabetes Mother Colon Cancer Mother PASSED FROM THIS AT THE AGE OF 62 Heart Father HAD AN [place] IN MID TO LATE 50s, FROM THIS. other (Other) Sister MVA No Known Problems Sister Hypertension Sister Systemic Lupus Erythematosus Sister other (RHUMATOID ARTHRITIS) Sister SAME SISTER HYPERTENSION Cancer Brother Lymphoma. Cancer free for 10 years. Coronary Artery Disease Brother Stent other (Episodes of numbness) Brother having dx testing Colon Cancer Brother Bipolar disorder Daughter Arthritis Daughter Psoriactic other (Epilepsy) Daughter other (cerebral spinal fluid leak) Son other (colitis) Son Autism Grandchild Asthma No Family History Emphysema No Family History Blood Clots No Family History No PE. Social History Tobacco Use Smoking status: Never Smokeless tobacco: Never Tobacco comments: Household ETS for 50 years. Vaping Use Vaping status: Never Used Substance Use Topics Alcohol use: No Drug use: No REVIEW OF SYMPTOMS: SEE HPI Nursing Notes: Meme Chambers, ELAINE 11/29/2023 4:00 PM Signed Patient provided copy of written instructions for colonoscopy with Miralax/Dulcolax prep. She declined education. The patient verbalized understanding and was given a number for questions.The patient was advised to hold her fish oil and contact Estefani Willard CNP regarding her diabetes medications by Ar Silverman CNP. Meme Chambers RN PHYSICAL EXAMINATION: General: The patient is 72 year old, female well nourished, well hydrated in no acute distress. The patient is oriented to time, place, and person. VITALS: Blood pressure 132/83, pulse 76, temperature 36.4 C (97.6 F), height 160 cm (5' 3"), weight 97.8 kg (215 lb 9.6 oz), SpO2 98%. Body mass index is 38.19 kg/m . HEENT: Normal cephalic, ataumatic, pupils are equally round, sclera are anicteric, mucous membranes are moist, oropharynx is clear. Neck has no masses, asymmetry or lymphadenopathy. Respiratory: Clear to auscultation and percussion. Normal respiratory excursion and pattern. Cardiac: Examination is regular rate and rhythm. Normal S1/S2 Abdominal exam: Soft, nontender, with no palpable masses. No hepatosplenomegaly. No palpable hernias. Extremities: no clubbing, cyanosis or edema. No adenopathy. LABORATORY VALUES: As Noted RADIOLOGIC STUDIES: As Noted Assessment IMPRESSION: nausea, history of colon cancer, change in bowel habits PLAN: I have reviewed my findings with the surgeon. Will plan for upper and lower endoscopy. We discussed the risks and benefits of the planned endoscopy. I have informed the patient that complications can occur including failure to complete the endoscopy and perforation. Saeid had the opportunity to ask questions concerning the planned endoscopy. My staff has also explained the procedure to the patient in understandable terms and has given the patient printed material concerning the procedure. Saeid freely consents to surgery. I plan to use Miralax bowel preparation Patient instructed to contact PCP for instructions regarding diabetic medication, which may require adjustment during bowel preparation and/or day of procedure. I have explained to the patient the difference between IV conscious sedation and MAC anesthesia - and I have offered either, according to the patient's wishes. I have explained that with IV conscious sedation there is no anesthesia provider available and therefore there is a limitation of the amount of IV medications that can be given and that the patient may wake up in the middle of the procedure and/or experience pain/discomfort during the procedure. Further discussion was done and the patient was given the opportunity to ask questions and all questions were answered. Saeid chooses IV conscious sedation. Saeid was counseled that if there are changes in his/her medical condition, to let the office know if surgery should proceed. If there are changes in patient's medical condition from time of this encounter to the day of the procedure that preclude anesthesia, patient may have procedure cancelled for patient's safety. Diagnoses: (R11.0) Nausea (primary encounter diagnosis) (R19.4) Change in bowel habits (Z85.038) History of colon cancer Portions of this documentation were copied and pasted from previous office visit notes in order to provide a cohesive continuity of the history. The note has been reviewed and edited and updated as necessary. Dayan Silverman APRN.MARGO documented in this encounter [facility] 11-05-2023 Telephone encounter Note The patient has been identified by name and date of : Yes Caregiver verified no other encounters exist for this prescription request: Yes Caregiver confirmed with patient/requestor that no other refills are due, in the near future, with this provider at this time: Yes The last office visit in the department: 10/25/2023 Does the patient have a future office visit with this provider/department: Yes 04/24/2024 Requested Prescriptions Pending Prescriptions Disp Refills blood sugar diagnostic (ONETOUCH ULTRA TEST) test strip 100 Strip 3 Sig: use 1 TEST STRIP to TEST BLOOD SUGAR once daily Angela Louise RN November 05, 2023 11:47 AM [facility] 11-05-2023 Miscellaneous Notes The patient has been identified by name and date of : Yes Caregiver verified no other encounters exist for this prescription request: Yes Caregiver confirmed with patient/requestor that no other refills are due, in the near future, with this provider at this time: Yes The last office visit in the department: 10/25/2023 Does the patient have a future office visit with this provider/department: Yes 04/24/2024 Requested Prescriptions Pending Prescriptions Disp Refills blood sugar diagnostic (ONETOUCH ULTRA TEST) test strip 100 Strip 3 Sig: use 1 TEST STRIP to TEST BLOOD SUGAR once daily Angela Louise RN November 05, 2023 11:47 AM documented in this encounter [facility] 10-25-2023 Instructions Estefani Willard APRN.[facility] - 10/25/2023 1:15 PM EDT Screening schedule The following prevention plan is recommended: Depression Screening Never done Anxiety Screening Never done DTaP,Tdap,Td Vaccine(2 - Td or Tdap) due on 09/09/2020 Advance Directive Discussion due on 02/05/2023 Influenza Vaccine(1) due on 10/07/2023 WHAT YOU CAN DO TO PREVENT FALLS Many falls can be prevented. By making some changes, you can lower your chances of falling. Four things YOU can do to prevent falls for you* and your caregiver 1. Begin a regular exercise program Exercise is one of the most important ways to lower your chances of falling. It makes you stronger and helps you feel better. Exercises that improve balance and coordination (like [place]ito Chi) are the most helpful. Lack of exercise leads to weakness and increases your chances of falling. Ask your doctor or health care provider about the best type of exercise program for you. 2. Have your health care provider review your medicines Have your doctor or pharmacist review all the medicines you take, even [id number] medicines. As you get older, the way medicines work in your body can change. Some medicines, or combinations of medicines, can make you sleepy or dizzy and can cause you to fall. 3. Have your vision checked Have your eyes checked by an eye doctor at least once a year. You may be wearing the wrong glasses or have a condition like glaucoma or cataracts that limits your vision. Poor vision can increase your chances of falling. 4. Make your home safer About half of all falls happen at home. To make your home safer: Remove things you can trip over (like papers, books, clothes, and shoes) from stairs and places where you walk. Remove small throw rugs or use double-sided tape to keep the rugs from slipping. Keep items you use often in cabinets you can reach easily without using a step stool. Have grab bars put in next to your toilet and in the tub or shower. Use non-slip mats in the bathtub and on shower floors. Improve the lighting in your home. As you get older, you need brighter lights to see well. Hang light-weight curtains or shades to reduce glare. Have handrails and lights put in on all staircases. Wear shoes both inside and outside the house. Avoid going barefoot or wearing slippers. For more information, contact: Centers for Disease Control and Prevention www.cdc.gov/injury * This information may not apply if you have certain medical conditions. documented in this encounter [facility] 10-25-2023 History of Present illness Narrative Images from the original note were not included. Saeid Urbina is a 72 year old female here for a Medicare wellness visit. Medicare Health Risk Assessment General Health Good Exercise: Minutes/Day 60 min Exercise: Days/Week 2 days Alcohol: Daily Use Never Alcohol: Drinks/Day Patient does not drink Alcohol: 6 or more drinks Never Feel off balance No concerns Concerns: Teeth/Dentures none Concerns: Sexual function none Troubled by feelings denies Frequency: Eating healthy diet Average of 75% of the time ADLs requiring help denies Safety precautions in home/vehicle Yes but no grab bars in the bathroom Smoke, vape, chews tobacco never Difficulty hearing Reports some decrease in hearing but does not want consult to audiology yet Difficulty seeing Normal. Current Providers Specialists: I have reviewed specialist-related care of the patient in the medical record. Optometry: Dr. Garrido sees yearly [employer] Consultant: Dr. Orantes Urology: Dr. Waldrop Nephrology: Dr. Kory Wang: Rheumatology. Dr. Brown: Pain Management Cardiology: Dr. Jay Medical/Family history review Reviewed and updated problem list, medical/surgical/family/social history, medications, and allergies. Opioid use review Opioid Medications (last 90 days) 07/28/2023 00:00 Opioid Medications morphine sulfate 15 mg BID ORAL (15 mg TbER) Details Medication marked as long-term Patient-reported medication Prescribed No opioid use on file in the last 90 days Does patient have risk factors for opioid abuse? No Pain overview Current pain concerns and treatment plan reviewed. Patient stable on current treatment plan. Anxiety/Depression screening PHQ-2 Score: 0 (Lower risk for depression) MURRAY-2 Score: 0 (Lower risk for anxiety) Recommendation: no further intervention at this time Cognitive screening Mini Cog Score: 4 Cognitive screening reviewed and No further action needed (score 3-5). Functional Observation Was the patient's Timed Up & Go test unsteady or ? 12 seconds? Yes but uses walker and at baseline. Advance Care Planning Surrogate decision maker documented and/or advance directives scanned in chart Measurements BP 122/70 Pulse 68 Resp 16 Wt 98.4 kg (217 lb) SpO2 97% BMI 38.44 kg/m Vision Screening: Follows with optometry/ophthalmology Assessment/Plan Medicare annual wellness visit, subsequent (Z00.00) - Counseled on healthy diet and regular exercise - Fall avoidance information provided - Personalized prevention plan provided - Discussed need for and benefit of weight loss. BMI 38.44 kg/(m^2) ASSESSMENT/PLAN: 1. Medicare annual wellness visit, subsequent - ICD9: V70.0, ICD10: Z00.00 (primary diagnosis) As above 2. Encounter for immunization - ICD9: V03.89, ICD10: Z23 - INFLUENZA VACCINE, PRSV FREE, AGE 65+ YR, HIGH DOSE, TRIVALENT (FLUZONE HIGH-DOSE) - TDAP PRINTED PHARMACY INSTRUCTIONS 3. Screening for depression - ICD9: V79.0, ICD10: Z13.31 - DEPRESSION SCREENING 4. Encounter for screening examination for other mental health and behavioral disorders - ICD9: V79.8, ICD10: Z13.39 - ANXIETY SCREENING Estefani Willard APRN.CNP documented in this encounter [facility] 10-12-2023 History of Present illness Narrative Value Hub Review Provider Action / FYI: H@H number given Upon review of patient chart, does patient meet exclusion criteria? Yes (select one of the following and end template) Active Cancer Treatment documented in this encounter [facility] 10-02-2023 History of Present illness Narrative Chief Complaint Patient presents with: Established Patient HPI: Saeid Urbina is a 72 year old female who presents here today for follow up colon cancer. Per Dr. 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 Patient developed symptoms of dyspepsia including upper abdominal discomfort and postprandial nausea. She also had early satiety and had been noted to have weight loss over the preceding 6 months. She underwent a colonoscopy and was observed to have a near obstructing lesion in the mid transverse colon highly suspicious for malignancy. The scope could not be advanced past this lesion. A clip was placed. Biopsies were performed but evidently nondiagnostic. CT A/P 01/19/2020: Liver: No mass. Biliary: The gallbladder is absent. There is mild dilation of the common bile duct/common hepatic duct. Spleen: No mass. No splenomegaly. Pancreas: No mass or duct dilation. Adrenals: No mass. Kidneys: 2-3 mm tiny attenuations in the bilateral kidneys, too small to progress. There appear to be a few parapelvic cyst. No hydronephrosis. GI tract: A 3 cm bowel wall thickening with narrowing of the lumen noted in the transverse colon, in appearance of apple core, concerning for malignancy. No bowel obstruction. Some fecal retention is noted. Lymph nodes: No abdominal or pelvic lymphadenopathy. Mesentery/Peritoneum: No ascites or mass or free abdominal air. Retroperitoneum: No mass. Vasculature: The celiac axis and SMA are patent. The portal vein and branches, splenic vein, SMV, and hepatic veins are patent. Pelvis: No mass, ascites or fluid collection. Bones/Soft Tissues: A 2 cm hyperdensity noted in the right anterior abdominal wall, likely presenting injection granuloma. There is a 2.5 x 3.8 cm fat-containing paraumbilical hernia. The spine shows degenerative changes with multilevel disc space narrowing. No definite destructive bony lesions seen. Lower thorax: No pleural effusions. Mild atelectatic changes noted in the right middle lobe and lingula. Field Account Director (topogram) images: No additional findings. Patient was admitted to [facility] on 01/26/2020. She underwent a laparoscopic colectomy partial right hemicolectomy and laparoscopic liver biopsy on the same day. Pathology: FINAL DIAGNOSIS 1. Right colon, terminal ileum, and appendix, extended right hemicolectomy (A): - Adenocarcinoma involving transverse colon and extending into pericolonic soft tissue, margins negative (see synoptic). - Metastatic adenocarcinoma in one lymph node (02/18). 2. Liver, biopsy (B): Metastatic adenocarcinoma, consistent with colorectal origin. COMMENT Immunohistochemistry was performed on the liver biopsy, and tumor cells strongly express CDX2 and CK7, while CK20 is negative. The features are consistent with metastatic spread of the patient's colorectal adenocarcinoma. SYNOPTIC REPORT OF MAE PATHOLOGIC FINDINGS EXTENDED RIGHT COLON: COLON AND RECTUM:RESECTION, INCLUDING TRANSANAL DISK EXCISION OF RECTAL NEOPLASMS WORKSHEET: Procedure: Right hemicolectomy Tumor Site: Transverse colon Tumor Size: Greatest dimension: 3.5 cm Macroscopic Tumor Perforation: Not identified Macroscopic Intactness of Mesorectum: Not applicable Histologic Type: Adenocarcinoma Histologic Grade: G2: Moderately differentiated Tumor Extension: Tumor invades through the muscularis propria into pericolorectal tissue Margins: All margins are uninvolved by invasive carcinoma, high-grade dysplasia, intramucosal adenocarcinoma, and adenoma Margins examined: proximal, distal, radial, mesenteric Proximal Margin: Uninvolved by invasive carcinoma Distal Margin: Uninvolved by invasive carcinoma Circumferential Radial Margin: Uninvolved by invasive carcinoma Mesenteric Margin: Uninvolved by invasive carcinoma Treatment Effect: No known presurgical therapy Lymphovascular Invasion: Present Perineural Invasion: Present Type of Polyp in which Invasive Carcinoma Arose: Tubular adenoma Tumor Deposits: Not identified Regional Lymph Nodes: Number of nodes involved: 1 Number of nodes examined: 14 Pathologic Stage Classification (pTNM,AJCC 8th ed) TNM Descriptors: Not applicable Pathologic Staging (pTNM): pT3: Tumor invades through the muscularis propria into pericolorectal tissues Regional Lymph Nodes (pN): pN1a: One regional lymph node is positive Distant Metastasis (pM): pM1: Metastasis to one or more distant sites or organs or peritoneal metastasis is identified Had MRI of the liver as well as CT scan of chest, abdomen pelvis. Underwent PET scan which suggested liver only metastasis. Laparoscopic microwave ablation of liver metastasis under ultrasound guidance on 04/23/2020. Previous therapy: 1) Adjuvant FOLFIRI. Completed 12 cycles as of 01/24/2021. Had egd/colonoscopy in June [address] Pérez. Next due in 3 years. Pt. here today with her daughter. No new concerns today. Appetite:"Good. I'm eating like a horse." Energy level:"I still will get tired sometimes." Denies fevers or recent illness. Resp:denies cough or sob Cardiac:denies chest pain/palpitations GI:denies abd pain, occ. nausea-takes zofran with relief, denies vomiting, occ. constipation taking miralax :denies dysuria/hematuria Extrem:chronic hand/knee/low back pain-followed Dr. Wang and Dr. Brown pain mgmt. 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 Past medical history, appointments, medications, allergies reviewed. No changes. EXAM: BP 124/81 Pulse 73 Temp 37 C (98.6 F) (Temporal) Wt 99.4 kg (219 lb 2.2 oz) SpO2 95% BMI 38.82 kg/m APPEARANCE Well appearing, alert, in no acute distress, well-hydrated, well nourished. HEART RRR with normal S1 and S2, no murmurs LUNG clear to auscultation LYMPH NODES No cervical lymphadenopathy, No supraclavicular lymphadenopathy, and No axillary lymphadenopathy. ABDOMEN bowel sounds normoactive, soft, non-tender EXTREMITIES No edema NEURO Awake, alert and oriented x 3, Normal gait, and No involuntary motions. SKIN Skin color, texture, turgor normal, no suspicious rashes or lesions LABS: Latest Ref Rng 07/20/2023 10/02/2023 WBC 3.70 - 11.00 k/uL 6.37 5.60 RBC 3.90 - 5.20 m/uL 4.32 4.22 Hemoglobin 11.5 - 15.5 g/dL 13.0 12.7 Hematocrit 36.0 - 46.0 % 40.2 38.4 MCV 80.0 - 100.0 fL 93.1 91.0 MCH 26.0 - 34.0 pg 30.1 30.1 MCHC 30.5 - 36.0 g/dL 32.3 33.1 RDW-CV 11.5 - 15.0 % 12.7 13.1 Platelet Count 150 - 400 k/uL 164 178 MPV 9.0 - 12.7 fL 11.0 10.5 Neut% % 64.2 Abs Neut (ANC) 1.45 - 7.50 k/uL 3.60 Lymph% % 21.1 Abs Lymph 1.00 - 4.00 k/uL 1.18 Cottle% % 10.9 Abs Cottle <0.87 k/uL 0.61 Eosin% % 2.0 Abs Eosin <0.46 k/uL 0.11 Baso% % 0.7 Abs Baso <0.11 k/uL 0.04 Immature Gran % % 1.1 IMMATURE GRANS (ABS) <0.10 k/uL 0.06 NRBC /100 WBC 0.0 Absolute nRBC <0.01 k/uL <0.01 <0.01 DTYPE Auto Latest Ref Rng 07/20/2023 10/02/2023 Protein, Total 6.3 - 8.0 g/dL 6.5 Albumin 3.9 - 4.9 g/dL 3.9 Calcium 8.5 - 10.2 mg/dL 10.2 10.5 (H) Bilirubin, Total 0.2 - 1.3 mg/dL 0.3 Alkaline Phosphatase 34 - 123 U/L 71 AST 13 - 35 U/L 24 ALT 7 - 38 U/L 18 Glucose 74 - 99 mg/dL 133 (H) 100 (H) BUN 7 - 21 mg/dL 27 (H) 25 (H) Creatinine 0.58 - 0.96 mg/dL 1.15 (H) 1.07 (H) Sodium 136 - 144 mmol/L 141 138 Potassium 3.7 - 5.1 mmol/L 4.5 4.4 Chloride 98 - 107 mmol/L 105 105 CO2 22 - 30 mmol/L 27 23 Anion Gap 8 - 15 mmol/L 9 10 eGFR >=60 mL/min/1.73m 50 (L) 55 (L) Latest Ref Rng 10/02/2023 Albumin 3.9 - 4.9 g/dL 4.2 Bilirubin, Total 0.2 - 1.3 mg/dL 0.4 Bilirubin, Conjug <0.2 mg/dL 0.2 (H) Alkaline Phosphatase 34 - 123 U/L 103 AST 13 - 35 U/L 33 ALT 7 - 38 U/L 26 Protein, Total 6.3 - 8.0 g/dL 6.9 CEA: Pending ASSESSMENT/PLAN: 1. Cancer of transverse colon (HCC) - ICD9: 153.1, ICD10: C18.4 (primary diagnosis) 2. Lung nodules - ICD9: 793.19, ICD10: R91.8 3. Metastases to the liver (HCC) - ICD9: 197.7, ICD10: C78.[address] Vallejo's previous note 03/30/21: Assessment: -In summary the patient is a 70-year-old female who was diagnosed with metastatic adenocarcinoma the transverse colon after presenting with a several month history of early satiety and dyspepsia characterized by upper abdominal pain and postprandial nausea. Initial CT scan demonstrated an apple core filling defect in the transverse colon. During surgery, an approximate 1 cm nodule was appreciated on the liver. Biopsy tissue was consistent with metastatic adenocarcinoma the colon. CTs revealed a suspicious 8 x 6 mm KASHIF lung nodule. MRI suggested a single liver metastasis. Side branch pancreatic IPMNs. -Laparoscopic microwave ablation of liver metastasis under ultrasound guidance on 04/23/2020. -NRAS mutated. -MMR proficient. -HER2 negative. -She had pre-existing sensory neuropathy manifested as numbness in both toes and her ability to walk was compromised by chronic low back and knee pain--uses walker. -The 8 mm nodule in left upper lobe was suspicious but it was not a proven site of metastatic disease. SBRT could be considered for that at some point in the future. -Has now completed 12 cycles of adjuvant FOLFIRI. -Reviewed the results of the CT scans in detail. Stable pulmonary nodules. Unchanged 8 mm nodule in left adrenal gland dating back to 2009. Stable 1 cm short axis lymph node in the portacaval area. Diffusely hypoattenuating area of capsular retraction with heterogeneous enhancement and decreasing peripheral hyperdensity in keeping with posttreatment changes in the liver. Plan: -Due for colonoscopy. -Labs/CTs then OV in about 4 months. -Continue management under chronic pain management for arthritis and chronic low back pain. - No concerning findings on exam. - Reviewed labs with pt. and daughter. - Colonoscopy due June 2024. - Follow up with PCP/pain mgmt. - CT chest/abd/pelvis due end of Dec/early Jan. - Needs port flushes. - Follow up in 6 months CBC/BMP/LFT's/CEA-pending today's labs. - Pt. aware to call office with any questions/concerns. The patient indicates understanding of these issues and agrees with the plan. All documentation from previous visit of 04/06/23-Dr. Vallejo/myself was copied and pasted, documentation has been reviewed and edited as necessary for today's visit. Geneva Ramos APRN.MARGO documented in this encounter [facility] 09-21-2023 History of Present illness Narrative Chemical Sales Representative offered: Patient declines. Saeid Urbina is a 72 year old female who presents for problem visit tingling/vibration in vagina HPI: Couple minutes of tingling deep inside vagina occurring a couple of times a day. If she does a Kegel, the vibration stops. Onset about 5 weeks ago. Chronic incontinence - wears protection. Is able to feel when bladder is full but does not feel there is a relation. Constipation for past 6-8 months - working with PCP for management. Taking Colace. Does not think constipation affects symptoms. OB History T4 L3 SAB1 IAB0 Ectopic0 Multiple0 Live Births0 Comment: ONE DAUGHTER PASSED AT THE AGE OF 8 MO. SEE STATIS [place] History LMP: Postmenopausal Age at Menarche: Age at First : Age at Menopause: [place] History Comments: Sexual Activity: Not Currently; No partner data on record Contraception: No contraception data on record PAST MEDICAL HISTORY 2022: Abdominal pain No date: Arthritis No date: Benign neoplasm of colon Comment: Benign polyps. 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 Lumpectomy, completed radiation 06/27/10. No chemotherapy. No date: Myalgia and myositis, unspecified No date: Obesity, unspecified Comment: Obesity 05/24/2015: Obstructive sleep apnea syndrome Comment: No longer needs CPAP 09/03/2014: Pain in joint of right shoulder No date: Plantar fascial fibromatosis No date: Seborrheic dermatitis, unspecified No date: Shortness of breath No date: Type II or unspecified type diabetes mellitus without mention of complication, not stated as uncontrolled No date: Unspecified hemorrhoids without mention of complication Comment: Hemorrhoids No date: Urinary incontinence Comment: "overactive bladder" PAST SURGICAL HISTORY age 3: ADENOIDECTOMY PRIMARY <AGE 10 Comment: Adenoidectomy 02/11/2010: BX BREAST PERC NEED W/GUID Comment: U/S Needle core UOQ right breast bx 03/16/2010: BX/EXC LYMPH NODE OPEN DEEP AXILLARY NODE Comment: RIGHT - [facility] Dr. Dung Rol 03/03/2020: CATH IMPL VASC ACCESS PORTAL No date: DELIVERY ONLY Comment: , low cervical x4 01/11/1981: CHOLECYSTECTOMY Comment: Cholecystectomy 06/21/2021: COLONOSCOPY Comment: , repeat in 3 years 08/30/2001: COLONOSCOPY FLX DX W/COLLJ SPEC WHEN PFRMD Comment: Colonoscopy 07/17/2012: COLONOSCOPY FLX DX W/COLLJ SPEC WHEN PFRMD Comment: Colonoscopy 12/02/2015: COLONOSCOPY FLX DX W/COLLJ SPEC WHEN PFRMD Comment: Colonoscopy (Needs MAC next time) 01/16/2020: COLONOSCOPY GEN ANES 06/01/2006: COLONOSCOPY W/BIOPSY SINGLE/MULTIPLE 01/16/2020: EGD 08/30/2001: EGD FLEX REMOVAL LESION(S) BY HOT BIOPSY FORCEPS 06/01/2006: EGD TRANSORAL BIOPSY SINGLE/MULTIPLE 12/23/2009: EGD TRANSORAL BIOPSY SINGLE/MULTIPLE 06/21/2021: EGD W/O BRSH SPEC VARICIES INJ Comment: 07/25/2022: EGD W/O BRSH SPEC VARICIES INJ 12/02/2015: ESOPHAGOGASTRODUODENOSCOPY TRANSORAL DIAGNOSTIC Comment: EGD 04/2020: IMAGING GUIDED RADIOFREQUENCY LIVER ABLATION Comment: ablation 11/2017: IR RADIO FREQUENCY ABLATION 01/26/2020: LAPAROSCOPIC HEMICOLECTOMY No date: LIG/TRNSXJ FLP TUBE ABDL/VAG APPR UNI/BI Comment: Tubal ligation 03/16/2010: MASTECTOMY, PARTIAL Comment: RIGHT - [facility] Dr. Dung Mayo 03/16/2010: PREOP PLACEMENT NEEDLE LOC Comment: U/S wire loc UOQ right breast 05/22/2005: PULMONARY FUNCTION TEST 04/06/1999: SIGMOIDOSCOPY FLX DX W/COLLJ SPEC BR/WA IF PFRMD Comment: Sigmoidoscopy, flexible age 3: TONSILLECTOMY PRIMARY/SECONDARY <AGE 10 Comment: Tonsillectomy FAMILY HISTORY Problem Relation Age of Onset Diabetes Mother Colon Cancer Mother PASSED FROM THIS AT THE AGE OF 62 Heart Father HAD AN [place] IN MID TO LATE 50s, FROM THIS. other (Other) Sister MVA No Known Problems Sister Hypertension Sister Systemic Lupus Erythematosus Sister other (RHUMATOID ARTHRITIS) Sister SAME SISTER HYPERTENSION Cancer Brother Lymphoma. Cancer free for 10 years. Coronary Artery Disease Brother Stent other (Episodes of numbness) Brother having dx testing Colon Cancer Brother Bipolar disorder Daughter Arthritis Daughter Psoriactic other (Epilepsy) Daughter other (cerebral spinal fluid leak) Son other (colitis) Son Autism Grandchild Asthma No Family History Emphysema No Family History Blood Clots No Family History No PE. Social History Tobacco Use Smoking status: Never Smokeless tobacco: Never Tobacco comments: Household ETS for 50 years. Vaping Use Vaping Use: Never used Substance Use Topics Alcohol use: No Drug use: No Current Outpatient Medications Medication Sig albuterol HFA (PROVENTIL HFA, VENTOLIN HFA) 90 mcg/actuation inhaler Inhale 2 Puffs as instructed every 4 hours as needed. docusate sodium (COLACE) 100 mg capsule Take 1 capsule by mouth two times a day as needed for constipation. Lancets Test blood sugar(s) 4 times daily. Dx: Type 2 DM - Uncontrolled E11.65 Insulin: Yes amLODIPine (NORVASC) 10 mg tablet Take 1 tablet by mouth once daily. valsartan (DIOVAN) 160 mg tablet Take 1 tablet by mouth once daily. Cholecalciferol, Vitamin D3, 25 mcg (1,000 unit) cap Take 1 capsule by mouth once daily. amitriptyline (ELAVIL) 25 mg tablet Take 25 mg by mouth daily at bedtime. omeprazole (PRILOSEC) 40 mg capsule Take 1 capsule by mouth once daily. metoprolol succinate ER (TOPROL XL) 50 mg 24 hr tablet Take 1 tablet by mouth once daily. furosemide (LASIX) 20 mg tablet Take 0.5 tablets by mouth once daily. blood sugar diagnostic (N-of-OneTOUCH ULTRA TEST) test strip use 1 TEST STRIP to TEST BLOOD SUGAR once daily magnesium oxide (MAG-OX) 400 mg (241.3 mg magnesium) tablet Take 1 tablet by mouth once daily. metFORMIN ER (GLUCOPHAGE XR) 500 mg 24 hr tablet Take 1 tablet by mouth daily with breakfast. insulin lispro (HUMALOG KWIKPEN INSULIN) 100 unit/mL Sliding scale during chemotherapy for glucose readings with meals 151 - 200 2 units 201 - 250 4 units 251 - 300 6 units 301 - 350 8 units 351-400 10 units >400 contact office insulin needles, DISPOSABLE, (PEN NEEDLE) 31 gauge x 5/16" Use one needle per dose. 3 per day. aspirin, enteric coated (ASPIRIN, ENTERIC COATED) 81 mg EC tablet Take 1 tablet by mouth once daily. ondansetron orally disintegrating (ZOFRAN ODT) 4 mg disintegrating tablet Take 1 tablet by mouth every 6 hours as needed for nausea/vomiting. diphenhydrAMINE (BENADRYL) 25 mg capsule Take 25 mg by mouth every 6 hours as needed. acetaminophen (TYLENOL) 500 mg tablet Take 500 mg by mouth every 8 hours as needed. diclofenac (VOLTAREN ARTHRITIS PAIN) 1 % topical gel Apply 2 g to affected area once daily. lancets (ONE TOUCH DELICA) 33 gauge Test blood sugar(s) 1 daily. Dx: Type 2 DM - Controlled E11.9 Insulin: No Fenofibrate (LOFIBRA) 54 mg tablet Take 54 mg by mouth once daily. hydrOXYchloroQUINE (PLAQUENIL) 200 mg tablet Take 200 mg by mouth once daily. Diclofenac Sodium (SOLARAZE) 3 % gel Apply to affected area two times a day. [place]-3 Fatty Acids 500 mg cap Take 1 capsule by mouth once daily. morphine SR (MS CONTIN, ORAMORPH SR) 15 mg 12 hr tablet Take 15 mg by mouth two times a day. cyanocobalamin (VITAMIN B-12) 1,000 mcg tab Take 1,000 mcg by mouth once daily. FOLIC ACID 800 MCG TAB Take by mouth once daily. No current facility-administered medications for this visit. Allergies As of Date: 09/21/2023 Allergen Noted Reaction CIPROFLOXACIN 08/12/2015 Hives CLARITIN [LORATADINE] 12/08/2004 Intolerance DICYCLOMINE 03/13/2013 Other: See Comments and Unknown E-MYCIN [ERYTHROMYCIN] 12/08/2004 GI Upset and Itching GEMTESA [VIBEGRON] 12/08/2021 Swelling MACROBID [NITROFURANTOIN MONOHYD/*09/22/2022 Swelling and Itching MYRBETRIQ [MIRABEGRON] 09/06/2021 Swelling NAPROXEN 10/14/2007 Swelling ORUVAIL [KETOPROFEN] 12/08/2004 Rash RELAFEN [NABUMETONE] 05/24/2007 Fully Assessed 07/27/2023 REVIEW OF SYSTEMS Abdomen: see HPI Bladder: incontinence Allergies and current medication updated:Yes EXAM: BP 126/70 Wt 217 lb 6.4 oz (98.6kg) GENERAL: pleasant, female in no apparent distress CHEST: Normal inspiratory effort ABDOMEN: soft, non-tender, and no masses PELVIC: external genitalia normal, normal Bartholin's glands, urethra, [place]'s glands, no vulvar lesions, no cervical lesions, physiologic discharge present, normal appearing perineal body and perianal region, cystocele minimal BIMANUAL: no adnexal masses and non-tender NEURO: alert and oriented x3,exam grossly non-focal ASSESSMENT/PLAN: 1. Vaginal pain - ICD9: 625.9, ICD10: R10.2 (primary diagnosis) -2-minute episodes of vibration deep in the vagina twice a day for around 5 weeks. She does not think it is related to her incontinence or chronic constipation.. -Unable to reproduce pain on exam. No cause found. -She sees Dr. Kemi Waldrop-recommend follow-up appointment with her for further evaluation. 2. Continuous leakage of urine - ICD9: 788.37, ICD10: N39.45 -Wears protection 28/08 - Is able to feel when bladder is full but has no control over urination. 3. Constipation, unspecified constipation type - ICD9: 564.00, ICD10: K59.00 -Working with PCP to manage.. Currently taking stool softener. Follow-up as needed. Danuta Orantes APRN.CNP I spent a total of 25 minutes on the date of the service which included preparing to see the patient, [id number] patient care, completing clinical documentation, obtaining and/or reviewing separately obtained history, performing a medically appropriate examination, and counseling and educating the patient/family/caregiver. documented in this encounter [facility] 08-17-2023 Telephone encounter Note Patient notified and referral faxed. [facility] 08-17-2023 Miscellaneous Notes Patient notified and referral faxed. Her last kidney function was improved taking her out of the CKD stage 3 range but as she is concerned and has been in and out of stage 3 over the past 10 years prior to this, I will put in consult. Please fax as requested and let patient know above information. Thank you Estefani Willard APRN.CNP Patient reports due to her diagnosis of chronic kidney disease, she feels seeing a Used Car Make Ready Worker, Dr. Horn, would be appropriate. Patient asking if PCP would be agreeable to faxing a nephrology referral to Dr. Horn's office, if agreeable. Please call patient with update at [phone] Thank you. documented in this encounter [facility] 08-17-2023 Telephone encounter Note Her last kidney function was improved taking her out of the CKD stage 3 range but as she is concerned and has been in and out of stage 3 over the past 10 years prior to this, I will put in consult. Please fax as requested and let patient know above information. Thank you Estefani Willard APRN.ADMINISTRATIVE PROCESSOR [facility] 08-17-2023 Telephone encounter Note Patient reports due to her diagnosis of chronic kidney disease, she feels seeing a Used Car Make Ready Worker, Dr. Horn, would be appropriate. Patient asking if PCP would be agreeable to faxing a nephrology referral to Dr. Horn's office, if agreeable. Please call patient with update at [phone] Thank you. [facility] 07-27-2023 History of Present illness Narrative Images from the original note were not included. . [facility] [place] Note Patient name: Saeid Urbina PCP: Yasemin Connors MD CC: Follow up COPD and lung nodules HPI: Saeid Urbina 72 year old female non-smoker with PMH significant for obesity, HLD, SHILPA, DM2, CKD, HTN, GERD, CHF, rheumatoid arthritis, mild COPD from secondhand smoke exposure, breast cancer ER/MD/HER2 negative s/p right mastectomy with radiation therapy 2010, metastatic colon cancer to the liver 2019 s/p hemicolectomy FOLFIRI and ablation of liver lesions, 8 mm left upper lobe semisolid pulmonary nodule presenting for follow-up. At [facility], CT of her chest in December showed stability of her left upper lobe nodule but a new 3 mm nodule in her right lower lobe. Follow-up CT in March showed resolution of her right lower lobe 3 mm nodule, stability of her 8 mm left upper lobe nodule and a new subpleural wedge-shaped area in her right lung suggestive of focal atelectasis. Her most recent chest CT shows stability of this new subpleural atelectasis and left upper lobe nodule. From a respiratory standpoint, she is supposed to be on Stiolto Respimat but was unable to afford medication and did not qualify for assistance. She denies any cough or wheezing but has some persistent dyspnea with exertion. She was ill with COVID at Thanksgiving time, only manifested as severe sore throat. She did not require hospitalization or therapy. DATA: COPD Assessment Test I never cough 0 1 2 3 4 5 I cough all the time; Score 0 I have no phlegm 0 1 2 3 4 5 My chest is completely full of phlegm; Score 0 My chest does not feel tight at all 0 1 2 3 4 5 My chest chest feels very tight; Score 0 When I walk up a hill or one flight of stairs I am not breathless 0 1 2 3 4 5 When I walk up a hill or one flight or stairs I am very breathless; Score 2 I am not limited doing any activities at home 0 1 2 3 4 5 I am very limited doing activities at home; Score 2 I am confident leaving my home despite my lung condition 0 1 2 3 4 5 I am not at all confident leaving my home because of my lung condition; Score 1 I sleep soundly 0 1 2 3 4 5 don't sleep soundly because of my lungs; Score 0 I have lots of energy 0 1 2 3 4 5 I have no energy at all; Score 1 Total Score: 6 Imaging / Diagnostic Studies: DATE OF EXAM: Jul 06 2023 2:41PM [facility] 0539 - CT CHEST W IVCON / PROCEDURE REASON: multiple diagnoses CLINICAL HISTORY: Colon cancer Comparison: CT chest 01/04/2023 RESULT: Limitations: None. Lines, tubes, and devices: Unchanged position of a left-sided MediPort Lung parenchyma and airways: Stable 8 mm nodule left upper lobe (10:47). Stable 3 mm nodule anterior right upper lobe (10:82). No new pulmonary nodules. Subsegmental atelectasis anterior right lung. No consolidation. Central airways are patent. Pleural space: No pleural effusion. No pleural thickening. Lower neck, lymph nodes, and mediastinum: The imaged thyroid gland is normal. No lymphadenopathy in the supraclavicular, axillary, mediastinal, or hilar regions. Heart, pericardium, and thoracic vessels: The thoracic aorta and main pulmonary artery are normal in caliber. The cardiac chambers are normal in size. No coronary artery atherosclerotic calcifications are noted, although the study is not optimized for coronary assessment. No pericardial effusion or thickening. Bones and soft tissues: No destructive bone lesion. No chest wall mass. Right axillary surgical clips. Upper abdomen: CT abdomen and pelvis is dictated separately IMPRESSION: 1. Stable pulmonary nodules. No new nodules are visualized. 2. No new thoracic lymphadenopathy Mar 2023: December 2022: I personally reviewed the images with description per HPI PAST MEDICAL HISTORY Diagnosis Date Abdominal pain 2022 Arthritis Benign neoplasm of colon Benign polyps. 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 Lumpectomy, completed radiation 06/27/10. No chemotherapy. Myalgia and myositis, unspecified Obesity, unspecified Obesity Obstructive sleep apnea syndrome 05/24/2015 No longer needs CPAP Pain in joint of right shoulder 09/03/2014 Plantar fascial fibromatosis Seborrheic dermatitis, unspecified Shortness of breath Type II or unspecified type diabetes mellitus without mention of complication, not stated as uncontrolled Unspecified hemorrhoids without mention of complication Hemorrhoids Urinary incontinence overactive bladder ALLERGIES Allergen Reactions Ciprofloxacin Hives Claritin [Loratadin* Intolerance Dicyclomine Other: See Comments, Unknown E-Mycin [Erythromyc* GI Upset, Itching Gemtesa [Vibegron] Swelling Facial swelling Macrobid [Nitrofura* Swelling, Itching Myrbetriq [Mirabegr* Swelling Naproxen Swelling Feet swelled in 2 days Oruvail [Ketoprofen] Rash Relafen [Nabumetone] swelling docusate sodium (COLACE) 100 mg capsule Take 1 capsule by mouth two times a day as needed for constipation. amLODIPine (NORVASC) 10 mg tablet Take 1 tablet by mouth once daily. valsartan (DIOVAN) 160 mg tablet Take 1 tablet by mouth once daily. Cholecalciferol, Vitamin D3, 25 mcg (1,000 unit) cap Take 1 capsule by mouth once daily. amitriptyline (ELAVIL) 25 mg tablet Take 25 mg by mouth daily at bedtime. omeprazole (PRILOSEC) 40 mg capsule Take 1 capsule by mouth once daily. metoprolol succinate ER (TOPROL XL) 50 mg 24 hr tablet Take 1 tablet by mouth once daily. furosemide (LASIX) 20 mg tablet Take 0.5 tablets by mouth once daily. magnesium oxide (MAG-OX) 400 mg (241.3 mg magnesium) tablet Take 1 tablet by mouth once daily. metFORMIN ER (GLUCOPHAGE XR) 500 mg 24 hr tablet Take 1 tablet by mouth daily with breakfast. insulin lispro (HUMALOG KWIKPEN INSULIN) 100 unit/mL Sliding scale during chemotherapy for glucose readings with meals 151 - 200 2 units 201 - 250 4 units 251 - 300 6 units 301 - 350 8 units 351-400 10 units >400 contact office aspirin, enteric coated (ASPIRIN, ENTERIC COATED) 81 mg EC tablet Take 1 tablet by mouth once daily. ondansetron orally disintegrating (ZOFRAN ODT) 4 mg disintegrating tablet Take 1 tablet by mouth every 6 hours as needed for nausea/vomiting. diphenhydrAMINE (BENADRYL) 25 mg capsule Take 25 mg by mouth every 6 hours as needed. acetaminophen (TYLENOL) 500 mg tablet Take 500 mg by mouth every 8 hours as needed. diclofenac (VOLTAREN ARTHRITIS PAIN) 1 % topical gel Apply 2 g to affected area once daily. Fenofibrate (LOFIBRA) 54 mg tablet Take 54 mg by mouth once daily. hydrOXYchloroQUINE (PLAQUENIL) 200 mg tablet Take 200 mg by mouth once daily. [place]-3 Fatty Acids 500 mg cap Take 1 capsule by mouth once daily. morphine SR (MS CONTIN, ORAMORPH SR) 15 mg 12 hr tablet Take 15 mg by mouth two times a day. cyanocobalamin (VITAMIN B-12) 1,000 mcg tab Take 1,000 mcg by mouth once daily. FOLIC ACID 800 MCG TAB Take by mouth once daily. albuterol HFA (PROVENTIL HFA, VENTOLIN HFA) 90 mcg/actuation inhaler Inhale 2 Puffs as instructed every 4 hours as needed. Lancets Test blood sugar(s) 4 times daily. Dx: Type 2 DM - Uncontrolled E11.65 Insulin: Yes blood sugar diagnostic (ONETOUCH ULTRA TEST) test strip use 1 TEST STRIP to TEST BLOOD SUGAR once daily insulin needles, DISPOSABLE, (PEN NEEDLE) 31 gauge x 5/16" Use one needle per dose. 3 per day. lancets (ONE TOUCH DELICA) 33 gauge Test blood sugar(s) 1 daily. Dx: Type 2 DM - Controlled E11.9 Insulin: No [DISCONTINUED] Omeprazole Magnesium (PRILOSEC OTC) 20 mg tablet Take 2 tablets by mouth once daily. Diclofenac Sodium (SOLARAZE) 3 % gel Apply to affected area two times a day. Social History Tobacco Use Smoking status: Never Smokeless tobacco: Never Tobacco comments: Household ETS for 50 years. Vaping Use Vaping Use: Never used Substance Use Topics Alcohol use: No Drug use: No FAMILY HISTORY Problem Relation Age of Onset Diabetes Mother Colon Cancer Mother PASSED FROM THIS AT THE AGE OF 62 Heart Father HAD AN [place] IN MID TO LATE 50s, FROM THIS. other (Other) Sister MVA No Known Problems Sister Hypertension Sister Systemic Lupus Erythematosus Sister other (RHUMATOID ARTHRITIS) Sister SAME SISTER HYPERTENSION Cancer Brother Lymphoma. Cancer free for 10 years. Coronary Artery Disease Brother Stent other (Episodes of numbness) Brother having dx testing Colon Cancer Brother Bipolar disorder Daughter Arthritis Daughter Psoriactic other (Epilepsy) Daughter other (cerebral spinal fluid leak) Son other (colitis) Son Autism Grandchild Asthma No Family History Emphysema No Family History Blood Clots No Family History No PE. PAST SURGICAL HISTORY Procedure Laterality Date ADENOIDECTOMY PRIMARY <AGE 10 age 3 Adenoidectomy BX BREAST PERC NEED W/GUID 02/11/2010 U/S Needle core UOQ right breast bx BX/EXC LYMPH NODE OPEN DEEP AXILLARY NODE 03/16/2010 RIGHT - [facility] Dr. Dung Mayo CATH IMPL VASC ACCESS PORTAL 03/03/2020 DELIVERY ONLY , low cervical x4 CHOLECYSTECTOMY 01/11/1981 Cholecystectomy COLONOSCOPY 06/21/2021 , repeat in 3 years COLONOSCOPY FLX DX W/COLLJ SPEC WHEN PFRMD 08/30/2001 Colonoscopy COLONOSCOPY FLX DX W/COLLJ SPEC WHEN PFRMD 07/17/2012 Colonoscopy COLONOSCOPY FLX DX W/COLLJ SPEC WHEN PFRMD 12/02/2015 Colonoscopy (Needs MAC next time) COLONOSCOPY GEN ANES 01/16/2020 COLONOSCOPY W/BIOPSY SINGLE/MULTIPLE 06/01/2006 EGD 01/16/2020 EGD FLEX REMOVAL LESION(S) BY HOT BIOPSY FORCEPS 08/30/2001 EGD TRANSORAL BIOPSY SINGLE/MULTIPLE 06/01/2006 EGD TRANSORAL BIOPSY SINGLE/MULTIPLE 12/23/2009 EGD W/O [facility] SPEC VARICIES INJ 06/21/2021 EGD W/O [facility] SPEC VARICIES INJ 07/25/2022 ESOPHAGOGASTRODUODENOSCOPY TRANSORAL DIAGNOSTIC 12/02/2015 EGD IMAGING GUIDED RADIOFREQUENCY LIVER ABLATION 04/2020 ablation IR RADIO FREQUENCY ABLATION 11/2017 LAPAROSCOPIC HEMICOLECTOMY 01/26/2020 LIG/TRNSXJ FLP TUBE ABDL/VAG APPR UNI/BI Tubal ligation MASTECTOMY, PARTIAL 03/16/2010 RIGHT - [facility] Dr. Dung Mayo PREOP PLACEMENT NEEDLE LOC 03/16/2010 U/S wire loc UOQ right breast PULMONARY FUNCTION TEST 05/22/2005 SIGMOIDOSCOPY FLX DX W/COLLJ SPEC BR/WA IF PFRMD 04/06/1999 Sigmoidoscopy, flexible TONSILLECTOMY PRIMARY/SECONDARY <AGE 10 age 3 Tonsillectomy PMH, Social history, family history and surgical history reviewed and updated in EMR REVIEW OF SYSTEMS: CONSTITUTIONAL: No fevers, chills, nightsweats, unintended weight loss HEENT: Denies nasal congestion/sinus symptoms, allergy problems. CARDIOVASCULAR: No chest pain, palpitations. Edema PULM: See HPI NEURO: No new balance problems, peripheral weakness/paresthesias or numbness of concern. MUSC-SKEL: Back pain INTEGUMENTARY: No new skin changes PHYSICAL EXAMINATION: BP 134/82 Pulse 67 Resp 15 Wt 214 lb (97.1kg) SpO2 96% General Appearance: Obese elderly female, NAD. Skin: Skin color, texture, turgor normal, no suspicious rashes or lesions. Head: Normocephalic, no masses, lesions, tenderness or abnormalities. Neck: No masses or adenopathy. Lungs: Not labored, normal to percussion, no wheezes or crackles. Heart: RRR, no murmur. Extremities: Edema, no clubbing. Assessment/Plan: Mild COPD -Only symptom is dyspnea on exertion which actually may be related to her obesity more so than her obstructive lung disease -Recommend albuterol as needed -Weight loss would be helpful Pulmonary nodules -Dominant pulmonary nodule in left upper lobe has been stable since 2020 -Continued surveillance in light of her underlying cancer history Class 2 obesity -BMI 37 -Weight loss advised Shantell Lorenzana MD Respiratory [place] documented in this encounter [facility] 07-26-2023 Telephone encounter Note Pt called and is notified of providers results and instructions. Pt voices understanding. Julia Cohen RN [facility] 07-26-2023 Miscellaneous Notes Pt called and is notified of providers results and instructions. Pt voices understanding. Julia Cohen RN Left message for return call. See message below. Please call patient and let her know since there was not enough urine to send for sample, I would like to recheck this along with her kidney function in two weeks. Stay hydrated and avoid and over the counter anti-inflammatories. Thank you Estefani Willard APRN.ADMINISTRATIVE PROCESSOR documented in this encounter [facility] 07-26-2023 Telephone encounter Note Left message for return call. See message below. Please call patient and let her know since there was not enough urine to send for sample, I would like to recheck this along with her kidney function in two weeks. Stay hydrated and avoid and over the counter anti-inflammatories. Thank you Estefani Willard APRN.ADMINISTRATIVE PROCESSOR [facility] 07-23-2023 History of Present illness Narrative CC: Patient presents with: Recheck: Follow up HPI Saeid Urbina is a 72 year old female who presents today for follow up on RLS but has some abdominal cramping. RLS: was placed on amitriptyline by her pain mgmt Which is working well. Does not need refill through PCP and will continue to get script through pain specialist. For the past few weeks is having spasms/cramping in her lower abdomen and even wakes her up. IS not there all the time and unable to identify any activity or position that causes it or relieves it. Alleviates with laying flat and wondering if it has to do with her back and has upcoming injection. Has history of constipation and takes miralax every other day but started a stool softener recently twice a day which works well. Is having a soft formed BM daily at this time. Denies fever, chills, nausea, vomiting, diarrhea, difficulty/pain urinating, blood in urine, dark/foul smelling urine, weakness, or numbness. REVIEW OF SYSTEMS General: no fevers, no chills, no night sweats, no recurrent infections, no change in appetite, no change in energy, and no significant changes in weight Respiratory: no cough, no wheezing, no shortness of breath, no hemoptysis Cardiovascular: no chest pain, no chest pressure, no palpitations, and no swelling PAST MEDICAL HISTORY Diagnosis Date Abdominal pain 2022 Arthritis Benign neoplasm of colon Benign polyps. 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 Lumpectomy, completed radiation 06/27/10. No chemotherapy. Myalgia and myositis, unspecified Obesity, unspecified Obesity Obstructive sleep apnea syndrome 05/24/2015 No longer needs CPAP Pain in joint of right shoulder 09/03/2014 Plantar fascial fibromatosis Seborrheic dermatitis, unspecified Shortness of breath Type II or unspecified type diabetes mellitus without mention of complication, not stated as uncontrolled Unspecified hemorrhoids without mention of complication Hemorrhoids Urinary incontinence overactive bladder PAST SURGICAL HISTORY Procedure Laterality Date ADENOIDECTOMY PRIMARY <AGE 10 age 3 Adenoidectomy BX BREAST PERC NEED W/GUID 02/11/2010 U/S Needle core UOQ right breast bx BX/EXC LYMPH NODE OPEN DEEP AXILLARY NODE 03/16/[address] [facility] [address] Dung Mayo CATH IMPL VASC ACCESS PORTAL 03/03/2020 DELIVERY ONLY , low cervical x4 CHOLECYSTECTOMY 01/11/1981 Cholecystectomy COLONOSCOPY 06/21/2021 , repeat in 3 years COLONOSCOPY FLX DX W/COLLJ SPEC WHEN PFRMD 08/30/2001 Colonoscopy COLONOSCOPY FLX DX W/COLLJ SPEC WHEN PFRMD 07/17/2012 Colonoscopy COLONOSCOPY FLX DX W/COLLJ SPEC WHEN PFRMD 12/02/2015 Colonoscopy (Needs MAC next time) COLONOSCOPY GEN ANES 01/16/2020 COLONOSCOPY W/BIOPSY SINGLE/MULTIPLE 06/01/2006 EGD 01/16/2020 EGD FLEX REMOVAL LESION(S) BY HOT BIOPSY FORCEPS 08/30/2001 EGD TRANSORAL BIOPSY SINGLE/MULTIPLE 06/01/2006 EGD TRANSORAL BIOPSY SINGLE/MULTIPLE 12/23/2009 EGD W/O [facility] SPEC VARICIES INJ 06/21/2021 EGD W/O [facility] SPEC VARICIES INJ 07/25/2022 ESOPHAGOGASTRODUODENOSCOPY TRANSORAL DIAGNOSTIC 12/02/2015 EGD IMAGING GUIDED RADIOFREQUENCY LIVER ABLATION 04/2020 ablation IR RADIO FREQUENCY ABLATION 11/2017 LAPAROSCOPIC HEMICOLECTOMY 01/26/2020 LIG/TRNSXJ FLP TUBE ABDL/VAG APPR UNI/BI Tubal ligation MASTECTOMY, PARTIAL 03/16/[address] [facility] [address] Dung Mayo PREOP PLACEMENT NEEDLE LOC 03/16/2010 U/S wire loc UOQ right breast PULMONARY FUNCTION TEST 05/22/2005 SIGMOIDOSCOPY FLX DX W/COLLJ SPEC BR/WA IF PFRMD 04/06/1999 Sigmoidoscopy, flexible TONSILLECTOMY PRIMARY/SECONDARY <AGE 10 age 3 Tonsillectomy ALLERGIES Ciprofloxacin, Claritin [Loratadine], Dicyclomine, E-Mycin [Erythromycin], Gemtesa [Vibegron], Macrobid [Nitrofurantoin Monohyd/M-Cryst], Myrbetriq [Mirabegron], Naproxen, Oruvail [Ketoprofen], and Relafen [Nabumetone] MEDICATIONS amLODIPine (NORVASC) 10 mg tablet Take 1 tablet by mouth once daily. valsartan (DIOVAN) 160 mg tablet Take 1 tablet by mouth once daily. Cholecalciferol, Vitamin D3, 25 mcg (1,000 unit) cap Take 1 capsule by mouth once daily. amitriptyline (ELAVIL) 25 mg tablet Take 25 mg by mouth daily at bedtime. omeprazole (PRILOSEC) 40 mg capsule Take 1 capsule by mouth once daily. metoprolol succinate ER (TOPROL XL) 50 mg 24 hr tablet Take 1 tablet by mouth once daily. furosemide (LASIX) 20 mg tablet Take 0.5 tablets by mouth once daily. blood sugar diagnostic (KitBoost ULTRA TEST) test strip use 1 TEST STRIP to TEST BLOOD SUGAR once daily docusate sodium (COLACE) 100 mg capsule Take 1 capsule by mouth two times a day. magnesium oxide (MAG-OX) 400 mg (241.3 mg magnesium) tablet Take 1 tablet by mouth once daily. metFORMIN ER (GLUCOPHAGE XR) 500 mg 24 hr tablet Take 1 tablet by mouth daily with breakfast. insulin lispro (HUMALOG KWIKPEN INSULIN) 100 unit/mL Sliding scale during chemotherapy for glucose readings with meals 151 - 200 2 units 201 - 250 4 units 251 - 300 6 units 301 - 350 8 units 351-400 10 units >400 contact office insulin needles, DISPOSABLE, (PEN NEEDLE) 31 gauge x 5/16" Use one needle per dose. 3 per day. aspirin, enteric coated (ASPIRIN, ENTERIC COATED) 81 mg EC tablet Take 1 tablet by mouth once daily. ondansetron orally disintegrating (ZOFRAN ODT) 4 mg disintegrating tablet Take 1 tablet by mouth every 6 hours as needed for nausea/vomiting. diphenhydrAMINE (BENADRYL) 25 mg capsule Take 25 mg by mouth every 6 hours as needed. acetaminophen (TYLENOL) 500 mg tablet Take 500 mg by mouth every 8 hours as needed. Lancets lancets Test blood sugar(s) 4 times daily. Dx: Type 2 DM - Uncontrolled E11.65 Insulin: Yes diclofenac (VOLTAREN ARTHRITIS PAIN) 1 % topical gel Apply 2 g to affected area once daily. lancets (ONE TOUCH DELICA) 33 gauge Test blood sugar(s) 1 daily. Dx: Type 2 DM - Controlled E11.9 Insulin: No [DISCONTINUED] Omeprazole Magnesium (PRILOSEC OTC) 20 mg tablet Take 2 tablets by mouth once daily. Fenofibrate (LOFIBRA) 54 mg tablet Take 54 mg by mouth once daily. hydrOXYchloroQUINE (PLAQUENIL) 200 mg tablet Take 200 mg by mouth once daily. Diclofenac Sodium (SOLARAZE) 3 % gel Apply to affected area two times a day. [place]-3 Fatty Acids 500 mg cap Take 1 capsule by mouth once daily. morphine SR (MS CONTIN, ORAMORPH SR) 15 mg 12 hr tablet Take 15 mg by mouth two times a day. cyanocobalamin (VITAMIN B-12) 1,000 mcg tab Take 1,000 mcg by mouth once daily. FOLIC ACID 800 MCG TAB Take by mouth once daily. FAMILY HISTORY Problem Relation Age of Onset Diabetes Mother Colon Cancer Mother PASSED FROM THIS AT THE AGE OF 62 Heart Father HAD AN [place] IN MID TO LATE 50s, FROM THIS. other (Other) Sister MVA No Known Problems Sister Hypertension Sister Systemic Lupus Erythematosus Sister other (RHUMATOID ARTHRITIS) Sister SAME SISTER HYPERTENSION Cancer Brother Lymphoma. Cancer free for 10 years. Coronary Artery Disease Brother Stent other (Episodes of numbness) Brother having dx testing Colon Cancer Brother Bipolar disorder Daughter Arthritis Daughter Psoriactic other (Epilepsy) Daughter other (cerebral spinal fluid leak) Son other (colitis) Son Autism Grandchild Asthma No Family History Emphysema No Family History Blood Clots No Family History No PE. Social History Tobacco Use Smoking status: Never Smokeless tobacco: Never Tobacco comments: Household ETS for 50 years. Vaping Use Vaping Use: Never used Substance Use Topics Alcohol use: No Drug use: No PHYSICAL EXAM BP 132/70 Pulse 72 Resp 16 Wt 97.1 kg (214 lb) SpO2 96% BMI 37.91 kg/m General Appearance: well appearing, in no acute distress, alert Pysch: mood and affect broad and appropriate Eyes: conjunctiva pink and moist, no icterus, sclera white, non-injected Back: No pain to palpation, Reflexes 2+ and symmetric Lungs: Lungs clear to auscultation. No wheezing, rhonchi, rales. Heart: RRR without murmur, gallop, or rubs. No ectopy Abdomen: Abdomen soft, non-tender. Bowel sounds normal. No masses, organomegaly, Negative CVA tenderness Health maintenance reviewed with patient: DTaP,Tdap,Td Vaccine(2 - Td or Tdap) due on 09/09/2020 Advance Directive Discussion due on 02/05/2023 RSV Vaccine(1 - 1-dose 60+ series) due on 12/12/2023 Covid-19 Vaccine( - season) due on 12/12/2023 Diabetic Foot Exam due on 12/09/2023 Urine Albumin:Creatinine Ratio due on 12/12/2023 HbA1C due on 01/19/2024 Dilated Retinal Exam due on 03/12/2024 LDL Cholesterol due on 04/05/2024 Annual PCP Team Chronic Disease Visit due on 05/27/2024 BP Controlled (<130/80) due on 05/27/2024 Mammogram Screening due on 06/11/2024 Colorectal Cancer Screening due on 06/21/2024 Serum Creatinine due on 07/19/2024 Hemoglobin/Hematocrit due on 07/19/2024 Bone Density Screening Completed Spirometry Completed Influenza Vaccine Completed Behavioral Health Screening Completed Hepatitis C Screening Completed Shingrix Vaccine Completed Pneumococcal Vaccine: 65+ Completed HPV Vaccine Aged Out Alpha-1 Antitrypsin Deficiency Screening Discontinued ASSESSMENT/PLAN: 1. Lower abdominal pain - ICD9: 789.09, ICD10: R10.30 (primary diagnosis) - assessment normal, ua with just trace protein but not enough to send for further evaluation, will repeat in a few weeks along with kidney function as this was decreased. - possibly from the stool softeners and miralax. Patient to decrease stool softener to once a day and then to PRN if possible with goal of BM soft large brown every 1-2 days. - go to ER for any increased pain, shortness of breath, or any urgent concern - UA DIP, URINE (POC) 2. RLS (restless legs syndrome) - ICD9: 333.94, ICD10: G25.81 Controlled with current treatment 3. Function kidney decreased - ICD9: 593.9, ICD10: N28.9 See #1 - increase water intake to stay hydrated and avoid any NSAIDs. - URINALYSIS WITH MICROSCOPIC, REFLEX CULTURE - BASIC METABOLIC PANEL Prescription instructions reviewed with patient as applicable. Potential red flag symptoms discussed with the patient. Reviewed appropriate action plan to take if red flag symptoms occur. Patient agreeable to treatment plan. Estefani Willard APRN.CNP documented in this encounter [facility] 07-16-2023 Telephone encounter Note Prescription Refill Information The patient has been identified by name and date of : Yes Caregiver verified no other encounters exist for this prescription request: Yes Caregiver confirmed with patient/requestor that no other refills are due, in the near future, with this provider at this time: Yes The last office visit in the department: 05/28/23 Does the patient have a future office visit with this provider/department: Yes Requested Prescriptions Pending Prescriptions Disp Refills amLODIPine (NORVASC) 10 mg tablet 90 tablet 3 Sig: Take 1 tablet by mouth once daily. valsartan (DIOVAN) 160 mg tablet 90 tablet 3 Sig: Take 1 tablet by mouth once daily. Koki Dow LPN July 16, 2023 2:57 PM [facility] 07-16-2023 Miscellaneous Notes Prescription Refill Information The patient has been identified by name and date of : Yes Caregiver verified no other encounters exist for this prescription request: Yes Caregiver confirmed with patient/requestor that no other refills are due, in the near future, with this provider at this time: Yes The last office visit in the department: 05/28/23 Does the patient have a future office visit with this provider/department: Yes Requested Prescriptions Pending Prescriptions Disp Refills amLODIPine (NORVASC) 10 mg tablet 90 tablet 3 Sig: Take 1 tablet by mouth once daily. valsartan (DIOVAN) 160 mg tablet 90 tablet 3 Sig: Take 1 tablet by mouth once daily. Koki Dow LPN July 16, 2023 2:57 PM Patient has been identified by name and date of : Patient phones for refill(s): Requested Prescriptions Pending Prescriptions Disp Refills amLODIPine (NORVASC) 10 mg tablet 90 tablet 3 Sig: Take 1 tablet by mouth once daily. valsartan (DIOVAN) 160 mg tablet 90 tablet 3 Sig: Take 1 tablet by mouth once daily. Date of last office visit in primary care: 05/28/2023 Date of next office visit in primary care: 07/23/2023 Please advise. Thank you. Doreen Sheikh. documented in this encounter [facility] 07-16-2023 Telephone encounter Note Patient has been identified by name and date of : Patient phones for refill(s): Requested Prescriptions Pending Prescriptions Disp Refills amLODIPine (NORVASC) 10 mg tablet 90 tablet 3 Sig: Take 1 tablet by mouth once daily. valsartan (DIOVAN) 160 mg tablet 90 tablet 3 Sig: Take 1 tablet by mouth once daily. Date of last office visit in primary care: 05/28/2023 Date of next office visit in primary care: 07/23/2023 Please advise. Thank you. Doreen Sheikh. [facility] 07-11-2023 History of Present illness Narrative Radiology Service Progress Note PATIENT NAME: Saeid Urbina DATE OF SERVICE: July 11, 2023 TIME: 1:19 PM PATIENT IDENTITY VERIFICATION COMPLETED USING TWO (2) IDENTIFIERS: Name and Date of confirmed by patient verbally. FALL SCREENING: Has the patient had 2 falls in the last year or 1 fall with injury or currently using an Ambulatory Assistive Device (Walker, Cane, Wheelchair, Crutches, etc.)? Yes, Patient High Risk for Falls What interventions were put in place to prevent falls during this visit? Increased Observations by Caregivers PATIENT GENDER DATA: Female. status: : No status: NO. PATIENT RELEVANT IMPLANT DATA REVIEWED: Not Applicable PATIENT PRESENTS WITH AN IMPLANTABLE OR ATTACHED TILE SORTER: No RADIOLOGY DEPARTMENT: Mammography PERIPHERAL IV DATA: Not applicable SIGNED BY: Tay BessSoundBetter July 11, 2023 1:19 PM documented in this encounter [facility] 07-06-2023 History of Present illness Narrative Radiology Service Progress Note PATIENT NAME: Saeid Urbina DATE OF SERVICE: July 06, 2023 TIME: 4:09 PM PATIENT IDENTITY VERIFICATION COMPLETED USING TWO (2) IDENTIFIERS: Name and Date of confirmed by patient verbally. FALL SCREENING: Has the patient had 2 falls in the last year or 1 fall with injury or currently using an Ambulatory Assistive Device (Walker, Cane, Wheelchair, Crutches, etc.)? No PATIENT GENDER DATA: Female. status: : No status: NO. PATIENT RELEVANT IMPLANT DATA REVIEWED: Yes PATIENT PRESENTS WITH AN IMPLANTABLE OR ATTACHED TILE SORTER: No RADIOLOGY DEPARTMENT: CT; Exam(s) Completed: Chest Abdomen Pelvis PERIPHERAL IV DATA: power port accessed by [employer] SIGNED BY: RT Farzana(R) July 06, 2023 4:09 PM documented in this encounter [facility] 06-12-2023 Note IMPRESSION: INCOMPLE TE: NEEDS ADDITIONAL IMAGING EVALUATION The asymmetry in the right breast is indeterminate. Additional views are recommended. Paola Guadalupe M.D., mc/david:06/12/2023 22:13:21 Road Roller Operator(s): Jamila Kirkpatrick [facility] letter sent: Additional Imaging Needed Mammogram BI-RADS: 0 Incomplete: needs additional imaging evaluation If this report indicates you need additional imaging, and it has NOT yet been performed, please call , to schedule. We sincerely thank you for choosing the [facility] for your breast imaging needs. Multiple national specialty organizations have released breast cancer screening guidelines for women at average risk for developing breast cancer - guidelines that are based on both evidence and opinion, yet differ on when to start and how often to screen for breast cancer. With representation from Breast Imaging, Internal Medicine, Women's Health, Family Medicine, and Medical/Surgical Oncology, the [facility] has carefully reviewed the data and reached the following consensus: 1) All women should engage in shared decision-making with their providers to decide when to start and how often to screen; 2) All women should have the opportunity to start screening mammography at age 40; 3) For women ages 45-55, we recommend annual screening mammograms; 4) For women ages 55 and over, we support both the transition from an annual to a biennial interval if this aligns more with patient's values and preferences, or continuation with annual screening; 5) All women should discuss with their providers when to stop screening mammograms. Pairer Inspector: David Transcribe Date/Time: Jun 12 2023 1:13P Dictated by: PAOLA GUADALUPE MD This examination was interpreted and the report reviewed and electronically signed by: PAOLA GUADALUPE MD on Jun 12 2023 10:13PM [facility] DIV[facility] OF RADIOLOGY 06-12-2023 Note Formatting of this n ote might be different from the original. June 13, 2023 PID: [id number] Saeid Urbina [address] [place], [place] [id number] [place] [address] Dear Ms. Urbina, Your recent breast imaging exam on 06/12/2023 showed a possible finding that requires additional imaging studies for a complete evaluation. Most such findings are probably benign (not cancer). Your mammogram demonstrates that you have dense breast tissue, which could hide abnormalities. Dense breast tissue, in and of itself, is a relatively common condition. Therefore, this information is not provided to cause undue concern; rather, it is to raise your awareness and promote discussion with your health care provider regarding the presence of dense breast tissue in addition to other risk factors. If you have a healthcare provider who ordered/prescribed your screening mammogram: Please call [phone] or EXT: [phone] to schedule an appointment for your additional imaging (if you have not already done so). If you DO NOT have a healthcare provider (ie you did not have an order/prescription for your screening mammogram): Please call to schedule an appointment for your additional imaging (if you have not already done so). You must have an order/prescription from your physician when calling to schedule your appointment. If your order/prescription is not electronic, you must bring the hard copy with you on the day of your exam to avoid delays. Your imaging studies and reports are kept on file at [facility] as part of your permanent medical record, and are available for your continuing care. Thank you for allowing us to help in meeting your health care needs. Sincerely, Dr. Guadalupe Interpreting Radiologist [facility] (Additional imaging) [facility] 06-12-2023 Miscellaneous Notes June 13, 2023 PID: [id number] Saeid Urbina [address] [place] [address] Dear Ms. Urbina, Your recent breast imaging exam on 06/12/2023 showed a possible finding that requires additional imaging studies for a complete evaluation. Most such findings are probably benign (not cancer). Your mammogram demonstrates that you have dense breast tissue, which could hide abnormalities. Dense breast tissue, in and of itself, is a relatively common condition. Therefore, this information is not provided to cause undue concern; rather, it is to raise your awareness and promote discussion with your health care provider regarding the presence of dense breast tissue in addition to other risk factors. If you have a healthcare provider who ordered/prescribed your screening mammogram: Please call [phone] or [phone]: [phone] to schedule an appointment for your additional imaging (if you have not already done so). If you DO NOT have a healthcare provider (ie you did not have an order/prescription for your screening mammogram): Please call to schedule an appointment for your additional imaging (if you have not already done so). You must have an order/prescription from your physician when calling to schedule your appointment. If your order/prescription is not electronic, you must bring the hard copy with you on the day of your exam to avoid delays. Your imaging studies and reports are kept on file at [facility] as part of your permanent medical record, and are available for your continuing care. Thank you for allowing us to help in meeting your health care needs. Sincerely, Dr. Guadalupe Interpreting Radiologist [facility] (Additional imaging) documented in this encounter [facility] 06-12-2023 History of Present illness Narrative Radiology Service Progress Note PATIENT NAME: Saeid Urbina DATE OF SERVICE: June 12, 2023 TIME: 1:18 PM PATIENT IDENTITY VERIFICATION COMPLETED USING TWO (2) IDENTIFIERS: Name and Date of confirmed by patient verbally. FALL SCREENING: Has the patient had 2 falls in the last year or 1 fall with injury or currently using an Ambulatory Assistive Device (Walker, Cane, Wheelchair, Crutches, etc.)? No PATIENT GENDER DATA: Female. status: : No status: NO. PATIENT RELEVANT IMPLANT DATA REVIEWED: Not Applicable PATIENT PRESENTS WITH AN IMPLANTABLE OR ATTACHED TILE SORTER: No RADIOLOGY DEPARTMENT: Mammography PERIPHERAL IV DATA: Not applicable SIGNED BY: RT Jennifer(R) June 12, 2023 1:18 PM documented in this encounter [facility] 06-07-2023 Discharge summary Note Date/Time June 07, 2023 2:25pm [facility] [address] [place] [address] [address] [place] [address] / REHABILITATION SERVICES DISCHARGE SUMMARY MR#: [id number] Acct: [id number] Name: SAEID URBINA Rep #: [id number] : 1950 72 From: Arina Bocanegra PT, Cert. MDT Referring Dr.: Dr. Cesilia Brown MD Status: REG RCR Insurance: [facility]URANCE Discharge Summary D/C summary: It has been my pleasure to treat SAEID URBINA referred by Dr. Cesilia Brown MD, with the diagnosis of BACK AND LEG PAIN for a total of 9 visit(s). Discharge Date: 06/07/23 Please see the following information for a summary of their discharge status. Subjective Subjective: PATIENT REPROTS SHE IS GETTING AROUND MUCH BETTER SINCE STARTING THERAPY. STATES SHE DOESN'T ALWAYS HAVE TO USE THE WALKER IN THE HOUSE NOW. "I'M FINDING MYSELF GETTING UP AND GOING WITHOUT THE WALKER MORE AND I'm DOING MORE". PATIENT REPORTS SHE HAS SILVER SNEAKERS AND SHE WANTS TO CONTINUE ON HEROWN NOW. SHE STATES HER SISTER HAS SILVER SNEAKERS TOO AND THEY ARE GOING TO COME TO [facility] TOGETHER. SHE REPORTS SHE SAW DR. BROWN A WEEK AGO AND REC'D HAKAN KNEE INJECTIONS WHICH HAVE HELPED A LOT TOO. PATIENT STATES SHE IS REALLY HAPPY WITH HER PROGRESS. Pain Bilateral Knee: Pain Intensity (Out of 10): 0 LB: Pain Intensity (Out of 10): 0 Overall Improvement % Improvement: 65 Objective Objective/Function: PATIENT WAS SEEN TODAY FOR RE-ASSESSMENT OF PROGRESS TOWARD THE SET PT GOALS AND THE NEED FOR FURTHER PHYSICAL THERAPY VS READINESS FOR DISCHARGE. THIS PATIENT IS MAKING GOOD PROGRESS WITH PT. SHE APPEARS TO BE A GOOD CANDIDATE TO CONTINUE PT BASED ON PROGRESS MADE AND ROOM FOR FURTHER IMPROVEMENT. SHE WOULD PROBABLY ALSO BENEFIT FROM FURTHER INSTRUCTION IN APPROPRIATE GYM EQUIPMENT USE FOR SAFE TRANSITION TO [facility] BUT SHE IS DECLINING AT THIS TIME. SHE STATES SHE WILL JUST START SLOW. UPON EXAM TODAY: Motor deficit: HAKAN HIPS GROSSLY 4/5, KNEE'S 4/5, ANKLES 5/5. Lumbar mvmt loss: flex - NIL ext - RADHA R SG - MOD L SG - MOD PATIENT DENIES INCREASED PAIN WITH LUMBAR ROM TESTING ALL PLANES TODAY. Core strength: FAIR 30 SEC STS TEST: 7 WITHOUT UE ASSIST. TUG TIME: 14.91 SEC WITH ROLLATOR. Goals Goal 1:: PATIENT WILL REPORT AT LEAST 25% DECREASED BACK AND BUTTOCK PAIN WITH ADL'S. Goal Progress: Goal Met Goal 2:: PATIENT WILL COMPLETE 5 STANDS IN 30 SECS WITH ONE UE ASSIST TO DEMONSTRATE IMPROVED FUNCTIONAL STRENGTH Goal Progress: Goal Met Goal 3:: PATIENT WILL COMPLETE TUG IN < 15 SECS WITH CANE OR LEAST AD TO DEMONSTRATE IMPROVED GAIT STABILITY Goal Progress: Goal Met Goal 4:: PATIENT WILL SCORE AT LEAST 5 POINTS BETTER ON BACK OSWESTRY QUESTIONNAIRE Goal Progress: Goal Met Goal 5:: PATIENT WILL BE INDEP WITH A HEP FOR CONTINUED IMPROVEMENT ONCE FORMAL PHYSICAL THERAPY CONCLUDES. Goal Progress: Progressing Plan Plan: D/C AT PATIENTS REQUEST D/C Information d/c sentence: If there are questions or concerns regarding this patient's physical therapy, please feel free to call me at [phone]. Thank you for the referral of thispatient. Sincerely, Arina Bocanegra, PT, Cert MDT Balance/Gait/Functional tests Balance/Special Test Scores Oswestry Low Back Score: 20 Improvement % Improvement: 65 <Electronically signed by Arina Bocanegra PT Cert. MDT> 06/07/23 1425 CC: Dr. Cesilia Brown MD; Dr. Yasemin Connors MD ~ ANGEL LUIS Signed [facility] Work Phone: [phone] 182-978804-25-2024 Telephone encounter Note* Telephone Encounter - Cherelle Mojica OCCA - 05/31/2023 8:21 AM EDT TC to patient who verbalized understanding of providers instructions below and has no questions at this time. ABDI Galvez [facility]04-25-2024 Miscellaneous Notes* Telephone Encounter - Cherelle Mojica OCCA - 05/31/2023 8:21 AM EDT TC to patient who verbalized understanding of providers instructions below and has no questions at this time. ABDI Galvez * Telephone Encounter - Estefani Willard APRN.CNP - 05/30/2023 1:37 PM EDT Take 1000 units of vit d daily. Prescription sent to pharmacy. We can discuss rechecking level at follow up appointment. .Thank you Estefani Willard APRN.CNP * Telephone Encounter - Angela Louise RN - 05/30/2023 10:54 AM EDT Patient calls and notified of results. Patient currently does not take any vitamin D. Please review and advise, Angela Louise RN * Telephone Encounter - Kristy Ribeiro MA - 05/30/2023 10:44 AM EDT Left message for return call. * Telephone Encounter - Estefani Willard APRN.CNP - 05/30/2023 9:20 AM EDT Vitamin D level is low. How much vit d is she getting daily? Thank you Estefani Willard APRN.CNP [facility] Telephone encounter Note * Telephone Encounter - Estefani Willard APRN.CNP - 05/30/2023 1:37 PM EDT Take 1000 units of vit d daily. Prescription sent to pharmacy. We can discuss rechecking level at follow up appointment. .Thank you Estefani Willard APRN.CNP [facility]04-24-2024 Telephone encounter Note* Telephone Encounter - Angela Louise RN - 05/30/2023 10:54 AM EDT Patient calls and notified of results. Patient currently does not take any vitamin D. Please review and advise, Angela Louise RN [address]24-2024 Telephone encounter Note* Telephone Encounter - Kristy Ribeiro MA - 05/30/2023 10:44 AM EDT Left message for return call. [address]24-2024 Telephone encounter Note* Telephone Encounter - Estefani Willard APRN.CNP - 05/30/2023 9:20 AM EDT Vitamin D level is low. How much vit d is she getting daily? Thank you Estefani Willard APRN.MARGO [facility]04-22-2024 History of Present illness Narrative* Estefani Willard APRN.CNP - 05/28/2023 2:08 PM EDT CC: Patient presents with: Recheck: 6 month follow up HPI Saeid Urbina is a 72 year old female who presents today for routine follow up. RLS symptoms reported with legs jumping and twitching since stopping morphine a few months ago. Pain mgmt started her amitriptyline which has helped her symptoms. Is sleeping well except last night. Is seeing pain mgmt in a few days. Is also continuing her magnesium and Vit B12 as ordered. Does have history of iron deficiency. DIABETES MELLITUS: Ms. Urbina denies excessive thirst or increased frequency of urination, chest pain or dyspnea , numbness, tingling or pain in extremities, new or unusual visual symptoms, low sugar/hypoglycemic reactions, weight loss/gain, lightheadedness/dizziness, and bowel changes/loose stools. Follows a diabetic diet most of the time. She is compliant with medication(s) and is tolerating med(s) without any side effects. She reports checking her glucose on a once a day schedule with sugars in the fasting 90s-120 range. Patient's last HgA1C was Hemoglobin A1C (%) Date Value 04/06/2023 6.0 12/05/2022 5.7 12/07/2020 6.7 08/27/2020 6.4 Hemoglobin A1C (POCT) (%) Date Value 12/09/2021 6.2 09/06/2021 6.1 ) HTN: Ms. Urbina indicates that she is feeling well and denies any symptoms referable to elevated blood pressure. Specifically denies headache, chest pain, palpitations, and dyspnea. Patient denies any side effects of her medication(s) and is compliant with their regimen. She does check BP's away from this office with average BP's in the 110s-120s/60s range. Saeid denies regular aerobic exercise.She watches her diet for sodium, low fat and low cholesterol most of the time. Sees [facility]. History of BLE edema controlled with current dose of lasix Last 3 Encounter BP Readings: Date: BP: 05/28/2023 128/68 04/06/2023 145/82 01/19/2023 124/82 REVIEW OF SYSTEMS See HPI PAST MEDICAL HISTORY Diagnosis Date Abdominal pain 2022 Arthritis Benign neoplasm of colon Benign polyps. 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 Lumpectomy, completed radiation 06/27/10. No chemotherapy. Myalgia and myositis, unspecified Obesity, unspecified Obesity Obstructive sleep apnea syndrome 05/24/2015 No longer needs CPAP Pain in joint of right shoulder 09/03/2014 Plantar fascial fibromatosis Seborrheic dermatitis, unspecified Shortness of breath Type II or unspecified type diabetes mellitus without mention of complication, not stated as uncontrolled Unspecified hemorrhoids without mention of complication Hemorrhoids Urinary incontinence overactive bladder PAST SURGICAL HISTORY Procedure Laterality Date ADENOIDECTOMY PRIMARY <AGE 10 age 3 Adenoidectomy BX BREAST PERC NEED W/GUID 02/11/2010 U/S Needle core UOQ right breast bx BX/EXC LYMPH NODE OPEN DEEP AXILLARY NODE 03/16/2010 RIGHT - [facility] Dr. Dung Mayo CATH IMPL VASC ACCESS PORTAL 03/03/2020 DELIVERY ONLY , low cervical x4 CHOLECYSTECTOMY 01/11/1981 Cholecystectomy COLONOSCOPY 06/21/2021 , repeat in 3 years COLONOSCOPY FLX DX W/COLLJ SPEC WHEN PFRMD 08/30/2001 Colonoscopy COLONOSCOPY FLX DX W/COLLJ SPEC WHEN PFRMD 07/17/2012 Colonoscopy COLONOSCOPY FLX DX W/COLLJ SPEC WHEN PFRMD 12/02/2015 Colonoscopy (Needs MAC next time) COLONOSCOPY GEN ANES 01/16/2020 COLONOSCOPY W/BIOPSY SINGLE/MULTIPLE 06/01/2006 EGD 01/16/2020 EGD FLEX REMOVAL LESION(S) BY HOT BIOPSY FORCEPS 08/30/2001 EGD TRANSORAL BIOPSY SINGLE/MULTIPLE 06/01/2006 EGD TRANSORAL BIOPSY SINGLE/MULTIPLE 12/23/2009 EGD W/O [facility] SPEC VARICIES INJ 06/21/2021 EGD W/O [facility] SPEC VARICIES INJ 07/25/2022 ESOPHAGOGASTRODUODENOSCOPY TRANSORAL DIAGNOSTIC 12/02/2015 EGD IMAGING GUIDED RADIOFREQUENCY LIVER ABLATION 04/2020 ablation IR RADIO FREQUENCY ABLATION 11/2017 LAPAROSCOPIC HEMICOLECTOMY 01/26/2020 LIG/TRNSXJ FLP TUBE ABDL/VAG APPR UNI/BI Tubal ligation MASTECTOMY, PARTIAL 03/16/2010 RIGHT - [facility] Dr. Dung Mayo PREOP PLACEMENT NEEDLE LOC 03/16/2010 U/S wire loc UOQ right breast PULMONARY FUNCTION TEST 05/22/2005 SIGMOIDOSCOPY FLX DX W/COLLJ SPEC BR/WA IF PFRMD 04/06/1999 Sigmoidoscopy, flexible TONSILLECTOMY PRIMARY/SECONDARY <AGE 10 age 3 Tonsillectomy ALLERGIES Ciprofloxacin, Claritin [Loratadine], Dicyclomine, E-Mycin [Erythromycin], Gemtesa [Vibegron], Macrobid [Nitrofurantoin Monohyd/M-Cryst], Myrbetriq [Mirabegron], Naproxen, Oruvail [Ketoprofen], Relafen [Nabumetone], and Statin [Other] MEDICATIONS amitriptyline (ELAVIL) 25 mg tablet Take 25 mg by mouth daily at bedtime. blood sugar diagnostic (N-of-OneTOUCH ULTRA TEST) test strip use 1 TEST STRIP to TEST BLOOD SUGAR once daily docusate sodium (COLACE) 100 mg capsule Take 1 capsule by mouth two times a day. magnesium oxide (MAG-OX) 400 mg (241.3 mg magnesium) tablet Take 1 tablet by mouth once daily. metFORMIN ER (GLUCOPHAGE XR) 500 mg 24 hr tablet Take 1 tablet by mouth daily with breakfast. insulin lispro (HUMALOG KWIKPEN INSULIN) 100 unit/mL Sliding scale during chemotherapy for glucose readings with meals 151 - 200 2 units 201 - 250 4 units 251 - 300 6 units 301 - 350 8 units 351-400 10 units >400 contact office valsartan (DIOVAN) 160 mg tablet Take 1 tablet by mouth once daily. insulin needles, DISPOSABLE, (PEN NEEDLE) 31 gauge x 5/16" Use one needle per dose. 3 per day. omeprazole (PRILOSEC) 40 mg capsule Take 1 capsule by mouth once daily. aspirin, enteric coated (ASPIRIN, ENTERIC COATED) 81 mg EC tablet Take 1 tablet by mouth once daily. metoprolol succinate ER (TOPROL XL) 50 mg 24 hr tablet Take 1 tablet by mouth once daily. ondansetron orally disintegrating (ZOFRAN ODT) 4 mg disintegrating tablet Take 1 tablet by mouth every 6 hours as needed for nausea/vomiting. diphenhydrAMINE (BENADRYL) 25 mg capsule Take 25 mg by mouth every 6 hours as needed. acetaminophen (TYLENOL) 500 mg tablet Take 500 mg by mouth every 8 hours as needed. Lancets lancets Test blood sugar(s) 4 times daily. Dx: Type 2 DM - Uncontrolled E11.65 Insulin: Yes diclofenac (VOLTAREN ARTHRITIS PAIN) 1 % topical gel Apply 2 g to affected area once daily. furosemide (LASIX) 20 mg tablet Take 0.5 tablets by mouth once daily. (Patient taking differently: Take 10 mg by mouth every other day.) amLODIPine (NORVASC) 10 mg tablet Take 1 tablet by mouth once daily. lancets (ONE TOUCH DELICA) 33 gauge Test blood sugar(s) 1 daily. Dx: Type 2 DM - Controlled E11.9 Insulin: No [DISCONTINUED] Omeprazole Magnesium (PRILOSEC OTC) 20 mg tablet Take 2 tablets by mouth once daily. Fenofibrate (LOFIBRA) 54 mg tablet Take 54 mg by mouth once daily. hydrOXYchloroQUINE (PLAQUENIL) 200 mg tablet Take 200 mg by mouth once daily. Diclofenac Sodium (SOLARAZE) 3 % gel Apply to affected area two times a day. [place]-3 Fatty Acids 500 mg cap Take 1 capsule by mouth once daily. morphine SR (MS CONTIN, ORAMORPH SR) 15 mg 12 hr tablet Take 15 mg by mouth two times a day. cyanocobalamin (VITAMIN B-12) 1,000 mcg tab Take 1,000 mcg by mouth once daily. FOLIC ACID 800 MCG TAB Take by mouth once daily. FAMILY HISTORY Problem Relation Age of Onset Diabetes Mother Colon Cancer Mother PASSED FROM THIS AT THE AGE OF 62 Heart Father HAD AN [place] IN MID TO LATE 50s, FROM THIS. other (Other) Sister MVA No Known Problems Sister Hypertension Sister Systemic Lupus Erythematosus Sister other (RHUMATOID ARTHRITIS) Sister SAME SISTER HYPERTENSION Cancer Brother Lymphoma. Cancer free for 10 years. Coronary Artery Disease Brother Stent other (Episodes of numbness) Brother having dx testing Colon Cancer Brother Bipolar disorder Daughter Arthritis Daughter Psoriactic other (Epilepsy) Daughter other (cerebral spinal fluid leak) Son other (colitis) Son Autism Grandchild Asthma No Family History Emphysema No Family History Blood Clots No Family History No PE. Social History Tobacco Use Smoking status: Never Smokeless tobacco: Never Tobacco comments: Household ETS for 50 years. Vaping Use Vaping Use: Never used Substance Use Topics Alcohol use: No Drug use: No PHYSICAL EXAM BP 128/68 Pulse 72 Resp 16 Wt 97.1 kg (214 lb) SpO2 96% BMI 37.91 kg/m General Appearance: well appearing, in no acute distress, alert Eyes: conjunctiva pink and moist, no icterus, sclera white, non-injected Lungs: Lungs clear to auscultation. No wheezing, rhonchi, rales. Heart: RRR without murmur, gallop, or rubs. No ectopy Health maintenance reviewed with patient: DTaP,Tdap,Td Vaccine(2 - Td or Tdap) due on 09/09/2020 BP Controlled (<130/80) due on 12/06/2021 Advance Directive Discussion due on 02/05/2023 Mammogram Screening due on 06/10/2023 RSV Vaccine(1 - 1-dose 60+ series) due on 12/12/2023 Covid-19 Vaccine(2022- season) due on 12/12/2023 HbA1C due on 10/07/2023 Diabetic Foot Exam due on 12/09/2023 Urine Albumin:Creatinine Ratio due on 12/12/2023 Annual PCP Team Chronic Disease Visit due on 12/21/2023 Dilated Retinal Exam due on 03/12/2024 LDL Cholesterol due on 04/05/2024 Serum Creatinine due on 04/05/2024 Colorectal Cancer Screening due on 06/21/2024 Bone Density Screening Completed Spirometry Completed Influenza Vaccine Completed Behavioral Health Screening Completed Hepatitis C Screening Completed Shingrix Vaccine Completed Pneumococcal Vaccine: 65+ Completed HPV Vaccine Aged Out Alpha-1 Antitrypsin Deficiency Screening Discontinued DATA REVIEWED: No new labs ASSESSMENT/PLAN: 1. RLS (restless legs syndrome) - ICD9: 333.94, ICD10: G25.81 (primary diagnosis) - continue amitriptyline as currently taking. Will evaluate for possible underlying cause - COMPLETE BLOOD COUNT AND DIFFERENTIAL - MAGNESIUM - VITAMIN B12 - IRON AND TIBC - FERRITIN 2. History of iron deficiency - ICD9: V12.3, ICD10: Z86.39 - COMPLETE BLOOD COUNT AND DIFFERENTIAL - IRON AND TIBC - FERRITIN 3. 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) - ICD9: 250.60, 357.2,ICD10: E11.42 - Controlled - Continue current medications - Blood glucose monitoring on a four times daily schedule - Counseled on healthy diet and regular exercise - Discussed need for and benefit of weight loss. BMI 37.91 kg/(m^2) 4. Primary hypertension - ICD9: 401.9, ICD10: I10 - Controlled - Continue current medications - Recommend home blood pressure monitoring, to bring results to next visit - Encouraged sodium restriction, DASH or Mediterranean diet - Recommend regular aerobic exercise - VALSARTAN 160 MG TABLET - METOPROLOL SUCCINATE ER 50 MG TABLET,EXTENDED RELEASE 24 HR 5. Bilateral lower extremity edema - ICD9: 782.3, ICD10: R60.0 Controlled with current treatment - FUROSEMIDE 20 MG TABLET 6. Hypomagnesemia - ICD9: 275.2, ICD10: E83.42 - MAGNESIUM 7. Vitamin B12 deficiency - ICD9: 266.2, ICD10: E53.8 - VITAMIN B12 8. Vitamin D deficiency - ICD9: 268.9, ICD10: E55.9 - VITAMIN D 25 HYDROXY Prescription instructions reviewed with patient as applicable. Potential red flag symptoms discussed with the patient. Reviewed appropriate action plan to take if red flag symptoms occur. Patient agreeable to treatment plan. Estefani Willard APRN.CNP [facility] Miscellaneous Notes* Telephone Encounter - Vi Penny RN - 05/21/2023 3:02 PM EDT Patient is needing Mamm with FLY order. Please file and then forward to PSS to contact patient andassist with scheduling. Thank you. Vi Penny RN [facility] Miscellaneous Notes* Telephone Encounter - Cara Rebolledo - 05/07/2023 1:55 PM EDT Schedule updated * Telephone Encounter - Angela Reynoso RN - 05/07/2023 1:30 PM EDT Port flushes will need to be rescheduled for every 3 months. She has a CT on 07/05 which requires port access. Please schedule all following flushes for 3 months after. Pt will need to be notified. Thank you. [facility] Miscellaneous Notes* Result Encounter Note - Christine Quintero APRN.CNS - 04/06/2023 4:38 PM EST Cholesterol panel is within normal limits. [facility] in [facility] History of Present illness Narrative* Geneva Ramos APRN.ADMINISTRATIVE PROCESSOR - 04/06/2023 10:23 AM EST Chief Complaint Patient presents with: Established Patient HPI: Saeid Urbina is a 72 year old female who presents here today for follow up colon cancer. Per Dr. 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 Patient developed symptoms of dyspepsia including upper abdominal discomfort and postprandial nausea. She also had early satiety and had been noted to have weight loss over the preceding 6 months. She underwent a colonoscopy and was observed to have a near obstructing lesion in the mid transverse colon highly suspicious for malignancy. The scope could not be advanced past this lesion. A clip was placed. Biopsies were performed but evidently nondiagnostic. CT A/P 01/19/2020: Liver: No mass. Biliary: The gallbladder is absent. There is mild dilation of the common bile duct/common hepatic duct. Spleen: No mass. No splenomegaly. Pancreas: No mass or duct dilation. Adrenals: No mass. Kidneys: 2-3 mm tiny attenuations in the bilateral kidneys, too small to progress. There appear to be a few parapelvic cyst. No hydronephrosis. GI tract: A 3 cm bowel wall thickening with narrowing of the lumen noted in the transverse colon, in appearance of apple core, concerning for malignancy. No bowel obstruction. Some fecal retention is noted. Lymph nodes: No abdominal or pelvic lymphadenopathy. Mesentery/Peritoneum: No ascites or mass or free abdominal air. Retroperitoneum: No mass. Vasculature: The celiac axis and SMA are patent. The portal vein and branches, splenic vein, SMV, and hepatic veins are patent. Pelvis: No mass, ascites or fluid collection. Bones/Soft Tissues: A 2 cm hyperdensity noted in the right anterior abdominal wall, likely presenting injection granuloma. There is a 2.5 x 3.8 cm fat-containing paraumbilical hernia. The spine shows degenerative changes with multilevel disc space narrowing. No definite destructive bony lesions seen. Lower thorax: No pleural effusions. Mild atelectatic changes noted in the right middle lobe and lingula. Field Account Director (topogram) images: No additional findings. Patient was [facility] to [facility] on 01/26/2020. She underwent a laparoscopic colectomy partial right hemicolectomy and laparoscopic liver biopsy onthe same day. Pathology: FINAL DIAGNOSIS 1. Right colon, terminal ileum, and appendix, extended right hemicolectomy (A): - Adenocarcinoma involving transverse colon and extending into pericolonic soft tissue, margins negative (see synoptic). - Metastatic adenocarcinoma in one lymph node (02/18). 2. Liver, biopsy (B): Metastatic adenocarcinoma, consistent with colorectal origin. COMMENT Immunohistochemistry was performed on the liver biopsy, and tumor cells strongly express CDX2 and CK7, while CK20 is negative. The features are consistent with metastatic spread of the patient's colorectal adenocarcinoma. SYNOPTIC REPORT OF MAE PATHOLOGIC FINDINGS EXTENDED RIGHT COLON: COLON AND RECTUM:RESECTION, INCLUDING TRANSANAL DISK EXCISION OF RECTAL NEOPLASMS WORKSHEET: Procedure: Right hemicolectomy Tumor Site: Transverse colon Tumor Size: Greatest dimension: 3.5 cm Macroscopic Tumor Perforation: Not identified Macroscopic Intactness of Mesorectum: Not applicable Histologic Type: Adenocarcinoma Histologic Grade: G2: Moderately differentiated Tumor Extension: Tumor invades through the muscularis propria into pericolorectal tissue Margins: All margins are uninvolved by invasive carcinoma, high-grade dysplasia, intramucosal adenocarcinoma, and adenoma Margins examined: proximal, distal, radial, mesenteric Proximal Margin: Uninvolved by invasive carcinoma Distal Margin: Uninvolved by invasive carcinoma Circumferential Radial Margin: Uninvolved by invasive carcinoma Mesenteric Margin: Uninvolved by invasive carcinoma Treatment Effect: No known presurgical therapy Lymphovascular Invasion: Present Perineural Invasion: Present Type of Polyp in which Invasive Carcinoma Arose: Tubular adenoma Tumor Deposits: Not identified Regional Lymph Nodes: Number of nodes involved: 1 Number of nodes examined: 14 Pathologic Stage Classification (pTNM,AJCC 8th ed) TNM Descriptors: Not applicable Pathologic Staging (pTNM): pT3: Tumor invades through the muscularis propria into pericolorectal tissues Regional Lymph Nodes (pN): pN1a: One regional lymph node is positive Distant Metastasis (pM): pM1: Metastasis to one or more distant sites or organs or peritoneal metastasis is identified --------- Had MRI of the liver as well as CT scan of chest, abdomen pelvis. Underwent PET scan which suggested liver only metastasis. Laparoscopic microwave ablation of liver metastasis under ultrasound guidance on 04/23/2020. Previous therapy: 1) Adjuvant FOLFIRI. Completed 12 cycles as of 01/24/2021. Had egd/colonoscopy in June [address] Pérez. Next due in 3 years. Pt. here today with her daughter. No new concerns today. Appetite:"Good. I'm eating like a horse." Energy level:"I still will get tired sometimes." Denies fevers or recent illness. Resp:denies cough or sob Cardiac:denies chest pain/palpitations GI:occ. R sided abd pain-after wearing tight pants, occ. nausea-takes zofran with relief, denies vomiting recently, +constipation-taking colace daily-not taking miralax :denies dysuria/hematuria Extrem:chronic hand/knee/low back pain-followed Dr. Wang and Dr. Brown pain mgmt. 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 Past medical history, appointments, medications, allergies reviewed. No changes. EXAM: BP 145/82 Pulse 62 Temp 36.8 C (98.3 F) (Temporal) Wt 97.4 kg (214 lb 12.8 oz) SpO2 95% BMI 38.05 kg/m APPEARANCE Well appearing, alert, in no acute distress, well-hydrated, well nourished. HEART RRR with normal S1 and S2, no murmurs LUNG clear to auscultation LYMPH NODES No cervical lymphadenopathy, No supraclavicular lymphadenopathy, and No axillary lymphadenopathy. ABDOMEN bowel sounds normoactive, soft, non-tender EXTREMITIES No edema RLE, chronic edema to LLE NEURO Awake, alert and oriented x 3, Normal gait, and No involuntary motions. SKIN Skin color, texture, turgor normal, no suspicious rashes or lesions LABS: Component Latest Ref Rng & Units 04/09/2022 10/05/2022 04/06/2023 WBC 3.70 - 11.00 k/uL 5.58 6.16 4.89 RBC 3.90 - 5.20 m/uL 3.96 4.22 4.38 Hemoglobin 11.5 - 15.5 g/dL 12.2 12.7 12.9 Hematocrit 36.0 - 46.0 % 36.1 38.3 39.4 MCV 80.0 - 100.0 fL 91.2 90.8 90.0 MCH 26.0 - 34.0 pg 30.8 30.1 29.5 MCHC 30.5 - 36.0 g/dL 33.8 33.2 32.7 RDW-CV 11.5 - 15.0 % 12.6 13.0 13.2 Platelet Count 150 - 400 k/uL 142 (L) 154 144 (L) MPV 9.0 - 12.7 fL 10.9 10.4 10.2 Neut% % 56.2 68.7 62.2 Abs Neut (ANC) 1.45 - 7.50 k/uL 3.13 4.23 3.04 Lymph% % 26.7 20.0 22.9 Abs Lymph 1.00 - 4.00 k/uL 1.49 1.23 1.12 Cottle% % 14.3 9.4 11.5 Abs Cottle <0.87 k/uL 0.80 0.58 0.56 Eosin% % 1.4 1.1 2.0 Abs Eosin <0.46 k/uL 0.08 0.07 0.10 Baso% % 0.7 0.3 0.6 Abs Baso <0.11 k/uL 0.04 <0.03 0.03 Immature Gran % % 0.7 0.5 0.8 IMMATURE GRANS (ABS) <0.10 k/uL 0.04 0.03 0.04 NRBC /100 WBC 0.0 0.0 0.0 Absolute nRBC <0.01 k/uL <0.01 <0.01 <0.01 DTYPE Auto Auto Auto BMP/Hep. func./CEA: Pending RADIOLOGY: CT chest 03/30/23: IMPRESSION: 1. There is a new 6 mm wedge-shaped subpleural nodular density in the anterior right upper lobe which may represent a developing pulmonary nodule or atelectasis. 2. Stable 8 mm nodule left upper lobe. Stable 3 mm nodule along the right minor fissure. Resolution of a previously described 3.5 mm nodule in the posterior right lower lobe. 3. No thoracic lymphadenopathy ASSESSMENT/PLAN: 1. Cancer of transverse colon (HCC) - ICD9: 153.1, ICD10: C18.4 (primary diagnosis) 2. Lung nodules - ICD9: 793.19, ICD10: R91.8 3. Metastases to the liver (HCC) - ICD9: 197.7, ICD10: C78.[address] Vallejo's previous note 03/30/21: Assessment: -In summary the patient is a 70-year-old female who was diagnosed with metastatic adenocarcinoma the transverse colon after presenting with a several month history of early satiety and dyspepsia characterized by upper abdominal pain and postprandial nausea. Initial CT scan demonstrated an apple core filling defect in the transverse colon. During surgery, an approximate 1 cm nodule was appreciatedon the liver. Biopsy tissue was consistent with metastatic adenocarcinoma the colon. CTs revealed asuspicious 8 x 6 mm KASHIF lung nodule. MRI suggested a single liver metastasis. Side branch pancreatic IPMNs. -Laparoscopic microwave ablation of liver metastasis under ultrasound guidance on 04/23/2020. -NRAS mutated. -MMR proficient. -HER2 negative. -She had pre-existing sensory neuropathy manifested as numbness in both toes and her ability to walk was compromised by chronic low back and knee pain--uses walker. -The 8 mm nodule in left upper lobe was suspicious but it was not a proven site of metastatic disease. SBRT could be considered for that at some point in the future. -Has now completed 12 cycles of adjuvant FOLFIRI. -Reviewed the results of the CT scans in detail. Stable pulmonary nodules. Unchanged 8 mm nodule inleft adrenal gland dating back to 2009. Stable 1 cm short axis lymph node in the portacaval area. Diffusely hypoattenuating area of capsular retraction with heterogeneous enhancement and decreasing peripheral hyperdensity in keeping with posttreatment changes in the liver. Plan: -Due for colonoscopy. -Labs/CTs then OV in about 4 months. -Continue management under chronic pain management for arthritis and chronic low back pain. - No concerning findings on exam. - Reviewed CBC/CT chest with pt. and daughter. - BMP/Hep. func/CEA pending. - Follow up with PCP/pain mgmt. - CT chest/abd/pelvis due end of June/early July. - Needs port flushes. - Follow up in 6 months CBC/BMP/LFT's/CEA-pending today's labs. - Pt. aware to call office with any questions/concerns. The patient indicates understanding of these issues and agrees with the plan. All documentation from previous visit of 10/05/22-Dr. Vallejo/myself was copied and pasted, documentation has been reviewed and edited as necessary for today's visit. Geneva Ramos APRN.MARGO documented in [facility] encounter[facility]02-[facility]24 History of Present illness Narrative* Guillermina Vera RT(R) - 03/30/2023 10:00 AM EST Radiology Service Progress Note PATIENT NAME: Saeid Urbina DATE OF SERVICE: March 30, 2023 TIME: 1:35 PM PATIENT IDENTITY VERIFICATION COMPLETED USING TWO (2) IDENTIFIERS: Name and Date of confirmedby patient verbally. FALL SCREENING: Has the patient had 2 falls in the last year or 1 fall with injury or currently using an Ambulatory Assistive Device (Walker, Cane, Wheelchair, Crutches, etc.)? No PATIENT GENDER DATA: Female. status: : No status: N/A PATIENT RELEVANT IMPLANT DATA REVIEWED: power port PATIENT PRESENTS WITH AN IMPLANTABLE OR ATTACHED TILE SORTER: power port RADIOLOGY DEPARTMENT: CT; Exam(s) Completed: Chest PERIPHERAL IV DATA: power port accessed by [employer] SIGNED BY: RT Farzana(R) March 30, 2023 1:35 PM documented in this encounterSouthern [facility]02-22-2024 Miscellaneous Notes* Telephone Encounter - Shtial Moser LPN - 03/29/2023 2:20 PM EST Patient has been identified by name and date of : Yes Patient phones for refill(s): Requested Prescriptions Pending Prescriptions Disp Refills blood sugar diagnostic (ONETOUCH ULTRA TEST) test strip [Pharmacy Med Name: ONETOUCH ULTRA TEST STRIP] 100 Strip 3 Sig: use 1 TEST STRIP to TEST BLOOD SUGAR once daily Date of last office visit in primary care: 12/11/2022 Date of next office visit in primary care: 06/13/2023 Please advise. Thank you. Shital Moser LPN. documented in this encounterSouthern [facility]02-09-2024 Miscellaneous Notes* Telephone Encounter - Danuta Orantes APRN.CNP - 03/16/2023 1:04 PM EST My chart message sent to Saeid. Danuta Orantes APRN.MARGO * Telephone Encounter - Ansley Blunt APRN.CNP - 02/21/2023 4:06 PM EST Will discuss case with AG upon her return. Ansley Blunt APRN.CNP * Telephone Encounter - Masha Curtis RN - 02/21/2023 9:53 AM EST Patient notified of results, verbalizes understanding of recommendations. Patient agreeable to EMB,only wants to see AG. Patient scheduled for first available on 04/23. Do you want patient to have cytotec? Masha Curtis RN * Telephone Encounter - Masha Curtis RN - 02/21/2023 9:39 AM EST Left message to call office. Masha Curtis RN * Telephone Encounter - Ansley Blunt APRN.CNP - 02/21/2023 9:23 AM EST Please call Saeid and inform: There is a simple appearing, unilocular left ovarian cyst present that measures 7 mm. ORADS 2, almost certainly benign. No follow up recommended for this cyst. However, endometrial thickness has increased to 3 mm. Reviewed AG's notes. Last EMB was insufficient to completely rule out endometrial malignancy with the postmenopausal bleeding. Would recommend repeat EMB to rule out malignancy. If she chooses to decline EMB, please make sure she understands risk of uterine malignancy. Can always follow up in person or virtually if she would like to discuss further. Ansley Blunt APRN.CNP documented in this encounterSouthern [facility]12-15-2023 History of Present illness Narrative* Shantell Lorenzana MD - 01/19/2023 2:45 PM EST Images from the original note were not included. . [facility] [place] Note Patient name: Saeid Urbina PCP: Yasemin Connors MD CC: Follow-up COPD HPI: Saeid Urbina 72 year old female non-smoker with PMH significant for morbid obesity, HLD, SHILPA, DM2, CKD, HTN, GERD, CHF, RA, COPD from secondhand smoke exposure, overactive bladder, breast cancer ER/MD/HER2 negative status post partial right mastectomy with radiation therapy 2010, metastaticcolon cancer to the liver 2019 status post hemicolectomy, FOLFIRI and ablation of liver lesions, and stable 8 mm KASHIF semisolid pulmonary nodule. Current therapy for COPD consists of Stiolto Respimat with as needed albuterol. Unfortunately she cannot afford her Stiolto Respimat so she has not been using her inhaler for several months. She had applied for assistance from the learning disabled teacher but has yet to hear whether she qualifies or not. Had documented COVID at [facility], manifesting as severe sore throat. No cough, fevers, myalgias, arthralgias, loss of taste or smell. She did not require treatment with Paxlovid. Despite her COVID infection, she did not have exacerbation of her COPD. Most recent CT of her chest shows stability of her left upper lobe nodule but she has a new 3 mm nodule in her right lower lobe. Retrospective review of her last CT shows a punctate nodule in the same area. She is set up for repeat CT at 3 months. DATA: Imaging / Diagnostic Studies: DATE OF EXAM: Jan 04 2023 11:20AM [facility] 0539 - CT CHEST W IVCON / Comparison: CT chest on 06/26/2022 RESULT: Limitations: None. Lines, tubes, and devices: No change in position of left chest port catheter. Lung parenchyma and airways: The central airways are patent. There is a stable solid/subsolid nodule in the left upper lobe measuring 8 mm, series 9 image 45. A 3.5 mm nodule in the right lower lobe,series 9 image 133, not previously visualized. No masses. Mild atelectasis noted in the right middle lobe and lingula, likely associated with large pericardial fat pads. Pleural space: No pleural effusion. No pleural thickening. Lower neck, lymph nodes, and mediastinum: The imaged thyroid gland is normal. No lymphadenopathy inthe supraclavicular, axillary, mediastinal, or hilar regions. Heart, pericardium, and thoracic vessels: The thoracic aorta and main pulmonary artery are normal in caliber. The cardiac chambers are normal in size. No coronary artery atherosclerotic calcifications are noted, although the study is not optimized for coronary assessment. No pericardial effusion or thickening. Bones and soft tissues: The chest wall soft tissue remains unremarkable. There are degenerative changes in the spine. No destructive bone lesions appreciated. Upper abdomen: A dedicated CT abdomen and pelvis was performed concurrently and will be reported separately. Field Account Director (topogram) images: No additional findings. IMPRESSION: Stable left lung nodule. Interval development of small right lung nodule. Continued surveillance is suggested in this patient with history of colon cancer. No CT evidence of lymphadenopathy in the chest. I personally reviewed the images as well as with the patient and her daughter who accompanied her today and agree with the above assessment. PAST MEDICAL HISTORY Diagnosis Date Abdominal pain 2022 Arthritis Benign neoplasm of colon Benign polyps. 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 Lumpectomy, completed radiation 06/27/10. No chemotherapy. Myalgia and myositis, unspecified Obesity, unspecified Obesity Obstructive sleep apnea syndrome 05/24/2015 No longer needs CPAP Pain in joint of right shoulder 09/03/2014 Plantar fascial fibromatosis Seborrheic dermatitis, unspecified Shortness of breath Type II or unspecified type diabetes mellitus without mention of complication, not stated as uncontrolled Unspecified hemorrhoids without mention of complication Hemorrhoids Urinary incontinence overactive bladder ALLERGIES Allergen Reactions Ciprofloxacin Hives Claritin [Loratadin* Intolerance Dicyclomine Other: See Comments, Unknown E-Mycin [Erythromyc* GI Upset, Itching Gemtesa [Vibegron] Swelling Facial swelling Macrobid [Nitrofura* Swelling, Itching Myrbetriq [Mirabegr* Swelling Naproxen Swelling Feet swelled in 2 days Oruvail [Ketoprofen] Rash Relafen [Nabumetone] swelling Statin [Other] Intolerance joint pain tiotropium 2.5 mcg-olodateroL 2.5 mcg/actuation mist for inhalation (STIOLTO RESPIMAT) Inhale 2 Puffs as instructed once daily. gabapentin (NEURONTIN) 300 mg capsule Take 300 mg by mouth once daily. docusate sodium (COLACE) 100 mg capsule Take 1 capsule by mouth two times a day. magnesium oxide (MAG-OX) 400 mg (241.3 mg magnesium) tablet Take 1 tablet by mouth once daily. metFORMIN ER (GLUCOPHAGE XR) 500 mg 24 hr tablet Take 1 tablet by mouth daily with breakfast. insulin lispro (HUMALOG KWIKPEN INSULIN) 100 unit/mL Sliding scale during chemotherapy for glucose readings with meals 151 - 200 2 units 201 - 250 4 units 251 - 300 6 units 301 - 350 8 units 351-400 10 units >400 contact office valsartan (DIOVAN) 160 mg tablet Take 1 tablet by mouth once daily. omeprazole (PRILOSEC) 40 mg capsule Take 1 capsule by mouth once daily. aspirin, enteric coated (ASPIRIN, ENTERIC COATED) 81 mg EC tablet Take 1 tablet by mouth once daily. metoprolol succinate ER (TOPROL XL) 50 mg 24 hr tablet Take 1 tablet by mouth once daily. ondansetron orally disintegrating (ZOFRAN ODT) 4 mg disintegrating tablet Take 1 tablet by mouth every 6 hours as needed for nausea/vomiting. diphenhydrAMINE (BENADRYL) 25 mg capsule Take 25 mg by mouth every 6 hours as needed. acetaminophen (TYLENOL) 500 mg tablet Take 500 mg by mouth every 8 hours as needed. diclofenac (VOLTAREN ARTHRITIS PAIN) 1 % topical gel Apply 2 g to affected area once daily. furosemide (LASIX) 20 mg tablet Take 0.5 tablets by mouth once daily. (Patient taking differently: Take 10 mg by mouth every other day.) amLODIPine (NORVASC) 10 mg tablet Take 1 tablet by mouth once daily. lidocaine-prilocaine (EMLA) 2.5-2.5 % cream Apple to port site 60 minutes prior to accessing Fenofibrate (LOFIBRA) 54 mg tablet Take 54 mg by mouth once daily. Diclofenac Sodium (SOLARAZE) 3 % gel Apply to affected area three times daily as needed. [place]-3 Fatty Acids 500 mg cap Take 1 capsule by mouth once daily. morphine SR (MS CONTIN, ORAMORPH SR) 15 mg 12 hr tablet Take 15 mg by mouth two times a day. cyanocobalamin (VITAMIN B-12) 1,000 mcg tab Take 1,000 mcg by mouth once daily. FOLIC ACID 800 MCG TAB Take by mouth once daily. diclofenac (VOLTAREN ARTHRITIS PAIN) 1 % topical gel Apply 2 g to affected area four times daily. insulin needles, DISPOSABLE, (PEN NEEDLE) 31 gauge x 5/16" Use one needle per dose. 3 per day. Lancets lancets Test blood sugar(s) 4 times daily. Dx: Type 2 DM - Uncontrolled E11.65 Insulin: Yes blood sugar diagnostic (ONETOUCH ULTRA TEST) test strip TEST ONCE DAILY lancets (ONE TOUCH DELICA) 33 gauge Test blood sugar(s) 1 daily. Dx: Type 2 DM - Controlled E11.9 Insulin: No [DISCONTINUED] Omeprazole Magnesium (PRILOSEC OTC) 20 mg tablet Take 2 tablets by mouth once daily. hydrOXYchloroQUINE (PLAQUENIL) 200 mg tablet Take 200 mg by mouth once daily. Social History Tobacco Use Smoking status: Never Smokeless tobacco: Never Tobacco comments: Household ETS for 50 years. Vaping Use Vaping Use: Never used Substance Use Topics Alcohol use: No Drug use: No FAMILY HISTORY Problem Relation Age of Onset Diabetes Mother Colon Cancer Mother PASSED FROM THIS AT THE AGE OF 62 Heart Father HAD AN [place] IN MID TO LATE 50s, FROM THIS. other (Other) Sister MVA No Known Problems Sister Hypertension Sister Systemic Lupus Erythematosus Sister other (RHUMATOID ARTHRITIS) Sister SAME SISTER HYPERTENSION Cancer Brother Lymphoma. Cancer free for 10 years. Coronary Artery Disease Brother Stent other (Episodes of numbness) Brother having dx testing Colon Cancer Brother Bipolar disorder Daughter Arthritis Daughter Psoriactic other (Epilepsy) Daughter other (cerebral spinal fluid leak) Son other (colitis) Son Autism Grandchild Asthma No Family History Emphysema No Family History Blood Clots No Family History No PE. PAST SURGICAL HISTORY Procedure Laterality Date ADENOIDECTOMY PRIMARY <AGE 10 age 3 Adenoidectomy BX BREAST PERC NEED W/GUID 02/11/2010 U/S Needle core UOQ right breast bx BX/EXC LYMPH NODE OPEN DEEP AXILLARY NODE 03/16/[address] [facility] [address] Dung Mayo CATH IMPL VASC ACCESS PORTAL 03/03/2020 DELIVERY ONLY , low cervical x4 CHOLECYSTECTOMY 01/11/1981 Cholecystectomy COLONOSCOPY 06/21/2021 , repeat in 3 years COLONOSCOPY FLX DX W/COLLJ SPEC WHEN PFRMD 08/30/2001 Colonoscopy COLONOSCOPY FLX DX W/COLLJ SPEC WHEN PFRMD 07/17/2012 Colonoscopy COLONOSCOPY FLX DX W/COLLJ SPEC WHEN PFRMD 12/02/2015 Colonoscopy (Needs MAC next time) COLONOSCOPY GEN ANES 01/16/2020 COLONOSCOPY W/BIOPSY SINGLE/MULTIPLE 06/01/2006 EGD 01/16/2020 EGD FLEX REMOVAL LESION(S) BY HOT BIOPSY FORCEPS 08/30/2001 EGD TRANSORAL BIOPSY SINGLE/MULTIPLE 06/01/2006 EGD TRANSORAL BIOPSY SINGLE/MULTIPLE 12/23/2009 EGD W/O BRSH SPEC VARICIES INJ 06/21/2021 EGD W/O BRSH SPEC VARICIES INJ 07/25/2022 ESOPHAGOGASTRODUODENOSCOPY TRANSORAL DIAGNOSTIC 12/02/2015 EGD IMAGING GUIDED RADIOFREQUENCY LIVER ABLATION 04/2020 ablation IR RADIO FREQUENCY ABLATION 11/2017 LAPAROSCOPIC HEMICOLECTOMY 01/26/2020 LIG/TRNSXJ FLP TUBE ABDL/VAG APPR UNI/BI Tubal ligation MASTECTOMY, PARTIAL 03/16/[address] [facility] [address] Dung Mayo PREOP PLACEMENT NEEDLE LOC 03/16/2010 U/S wire loc UOQ right breast PULMONARY FUNCTION TEST 05/22/2005 SIGMOIDOSCOPY FLX DX W/COLLJ SPEC BR/WA IF PFRMD 04/06/1999 Sigmoidoscopy, flexible TONSILLECTOMY PRIMARY/SECONDARY <AGE 10 age 3 Tonsillectomy PMH, Social history, family history and surgical history reviewed and updated in EMR REVIEW OF SYSTEMS: CONSTITUTIONAL: No fevers, chills, nightsweats, unintended weight loss HEENT: Denies nasal congestion/sinus symptoms EYES: Recent history of 6th cranial nerve palsy CARDIOVASCULAR: No chest pain, dyspnea, palpitations, orthopnea, PND. Mild edema PULM: See HPI GI: C. difficile colitis. : Overactive bladder with urinary incontinence. NEURO: No new balance problems, peripheral weakness/paresthesias or numbness of concern. MUSC-SKEL: No new joint pain, swelling, or erythema. Rheumatoid arthritis changes in her hands PSY: No concerns regarding depression INTEGUMENTARY: No new skin changes or rashes PHYSICAL EXAMINATION: BP 124/82 Pulse 69 Temp (Src) 96.8 (Temporal) Resp 16 Wt 210 lb 9.6 oz (95.5kg) SpO2 96% General Appearance: Obese female, NAD. Skin: Skin color, texture, turgor normal, no suspicious rashes or lesions. Head: Normocephalic, no masses, lesions, tenderness or abnormalities. Eyes: Sclera, conjunctiva normal. Neck: No JVD, no masses, no adenopathy. Lungs: Not labored, normal to percussion, no wheezes or crackles. Heart: Regular rate and rhythm, no murmurs or gallops. Extremities: Mild edema, no clubbing. Assessment/Plan: 1. Mild COPD -Recommending RSV vaccination. Patient up-to-date on yearly influenza vaccine and COVID booster -Recommending continued Stiolto Respimat with albuterol as needed. Will contact [employer] regarding application status 2. Lung nodules -Stable left upper lobe nodule new right lower lobe nodule. In retrospect nodule noted on CT chest May, thus this represents an enlarging small nodule 3. History of colon cancer -See #2. New enlarging nodule is concerning in the face of known colon cancer with liver metastases. Shantell Lorenzana MD [facility] [place] documented in this encounterSouthern [facility]12-06-2023 Miscellaneous Notes* Telephone Encounter - Cara Rebolledo - 01/10/2023 3:42 PM EST Patient confirmed * Telephone Encounter - Cara Rebolledo - 01/10/2023 2:31 PM EST 1st attempt. Message left for patient to contact office to confirm or reschedule at patient request- 03/30 CT and port access appts * Telephone Encounter - Shawnee Fajardo LPN - 01/10/2023 8:45 AM EST Pt notified and voices understanding. Pt states she already has an apt scheduled with [facility] on April 05. Please make CT at the end of Mar or very beginning of April. If OV needs pushed out 1 week to accommodate, that's OK. Shawnee Fajardo LPN * Telephone Encounter - Geneva Ramos APRN.ADMINISTRATIVE PROCESSOR - 01/10/2023 7:52 AM EST Please inform pt. that her CT abd/pelvis looks good. There is a very small lung nodule that we willneed to repeat a CT chest on in 3 months. Please schedule prior to next OV in April. Thank you. Geneva Ramos APRN.ADMINISTRATIVE PROCESSOR documented in this encounterSouthern [facility]11-30-2023 History of Present illness Narrative* Guillermina Vera RT(R) - 01/04/2023 10:40 AM EST Radiology Service Progress Note PATIENT NAME: Saeid Urbina DATE OF SERVICE: January 04, 2023 TIME: 11:55 AM PATIENT IDENTITY VERIFICATION COMPLETED USING TWO (2) IDENTIFIERS: Name and Date of confirmedby patient verbally. FALL SCREENING: Has the patient had 2 falls in the last year or 1 fall with injury or currently using an Ambulatory Assistive Device (Walker, Cane, Wheelchair, Crutches, etc.)? No PATIENT GENDER DATA: Female. status: : No status: NO. PATIENT RELEVANT IMPLANT DATA REVIEWED: Yes RADIOLOGY DEPARTMENT: CT; Exam(s) Completed: Chest Abdomen Pelvis PERIPHERAL IV DATA: power port accessed by [employer] SIGNED BY: RT Farzana(R) January 04, 2023 11:55 AM documented in this encounterSouthern [facility] Center11-15-2023 Miscellaneous Notes* Telephone Encounter - Hayley Stewart RN - 2022 10:52 AM EST Called patient to schedule pelvic u/s and she was unable to talk d/t being covid positive and shortof breath. SafetyWeb message sent with appointment date/time. Hayley Stewart RN * Telephone Encounter - Danuta Orantes APRN.CNP - 12/19/2022 5:00 PM EST Pt called per myself to discuss diagnostic testing results. EMB benign endocervix, fragments of superficial inactive endometrium but insufficient to evaluate for hyperplasia or carcinoma and pelvic US - ET 0.2 cm and endometrial fluid measuring 1 cm. History, EMB pathology and pelvic US images reviewed by Dr Lacey. Her recommendation is repeat pelvic US in 2 months in our gynecology department. Pt offered repeat EMB and/or repeat ultrasound. She prefers repeat US in mid-February. Please schedule mid-February any day and notify pt. Danuta Orantes APRN.MARGO documented in this [facility] History of Present illness Narrative* Danii Nicolas RDMS - 12/15/2022 1:45 PM EST Radiology Service Progress Note PATIENT NAME: Saeid Urbina DATE OF SERVICE: December 15, 2022 TIME: 2:46 PM PATIENT IDENTITY VERIFICATION COMPLETED USING TWO (2) IDENTIFIERS: Name and Date of confirmedby patient verbally. FALL SCREENING: Has the patient had 2 falls in the last year or 1 fall with injury or currently using an Ambulatory Assistive Device (Walker, Cane, Wheelchair, Crutches, etc.)? No PATIENT GENDER DATA: Female. status: : No status: NO. PATIENT RELEVANT IMPLANT DATA REVIEWED: Not Applicable RADIOLOGY DEPARTMENT: Ultrasound PERIPHERAL IV DATA: Not applicable SIGNED BY: Danii Nicolas RDMS RVT December 15, 2022 2:46 PM [facility] Instructions* Patient Instructions* Linda Obrien LPN - 12/14/2022 11:47 AM EST YOUR RECOVERY After your biopsy you may have: Vaginal bleeding (less than a normal menstrual period) Mild cramping Do NOT put anything in the vagina for 1 week after your endometrial biopsy. This includes: tampons douches and refraining from having sexual intercourse If you have any discomfort, you may take an over the counter pain medication (motrin, advil, ibuprofen, tylenol, etc). If this does not relieve your discomfort, contact the office. It is okay to wear a sanitary pad until the discharge and spotting stops. RISKS Although problems seldom occur with endometrial biopsies, there can be some complications. You may feel faint during and shortly after the procedure as well as have some bleeding after the procedure.There is also a risk of infection after the procedure. These complications are rare and can be easily treated. You should contact you doctor is you have any of the following: Heavy bleeding (more than your normal period) Bleeding with clots Severe abdominal pain Fever (more than 100.4F) Foul smelling vaginal discharge RESULTS We will have the results of your biopsy in 1-2 weeks. If you do not hear the results of your biopsyafter 2 weeks, please contact the office for the results. If you have any additional questions or concerns please do not hesitate to contact the office. [facility] History of Present illness Narrative* Danuta Orantes APRN.MARGO - 12/14/2022 11:41 AM EST Saeid is a 71 year old Female who presents today for an endometrial biopsy for post menopausal bleeding. Vaginal mucous x 5 days. Noticed pink only on day 1. When she has had blood in urine, she has notice a couple of drops on her pantyliner also. Previous UTI with blood in urine 2 months ago but none noted on UA 3 days ago. History colon cancer test: n/a UNIVERSAL PROTOCOL / SAFETY CHECKLIST Procedure to be Performed: EMB Sign In: A Moment of CARE was completed. Personnel directly involved with the procedure wore the appropriate PPE (Personal Protective Equipment). Patient/Surrogate Stated/Verified: PATIENT VERIFIED(optional for EMERGENT procedures): Patient name, Date of , Relevant allergies, and The intended procedure Time Out Communication: Intended patient and procedure match the source documents. Consent documented and matches the intended procedure. Sign Out: SIGN OUT (optional for EMERGENT procedures): All specimen containers correctly labeled. All instruments, equipment, possible retained foreign bodies accounted for. Post-procedure follow-up management communicated and Plan of Care Visit completed when applicable. Danuta Orantes APRN.MARGO PROCEDURE: EXTERNAL GENITALIA: Normal in appearance without lesions VAGINA: Normal in appearance without lesions BIOPSY: Speculum placed into the vagina with excellent visualization of the cervix. Cervix cleaned with betadine. Anterior lip of cervix grasped with single toothed tenaculum. Uterus sounded to 6 cm.Pipelle inserted into the uterus without difficulty and endometrial biopsy obtained. Specimen labeled and sent to pathology. Procedure Summary: Patient tolerated procedure well. ASSESSMENT: post menopausal bleeding PLAN: Specimens labeled and sent to Pathology. Will notify patient of results in 1-2 weeks. Post-procedure instructions reviewed and written material given to the patient. Danuta Orantes APRN.ADMINISTRATIVE PROCESSOR documented [facility] Evaluation note* Diagnosis Type 2 diabetes mellitus with stage 3a chronic kidney disease, with long-term current use of insulin (HCC)- Primary Hematuria, unspecified type Vaginal discharge Leukorrhea, not specified as infective Vagina bleeding Other specified noninflammatory disorder of vagina 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) Lipid screening Screening for lipoid disorders Hypomagnesemia Disorders of magnesium metabolism Need for influenza vaccination Need for prophylactic vaccination and inoculation against influenza documented [facility] History of Present illness Narrative* Estefani Willard APRN.CNP - 12/11/2022 2:29 PM EST CC: Patient presents with: Recheck: 3 month follow up Immunizations: Flu vaccination HPI Saeid Urbina is a 71 year old female who presents today for routine follow up but has urinary concerns. DIABETES MELLITUS: Ms. Urbina denies excessive thirst or increased frequency of urination, chest pain or dyspnea , numbness, tingling or pain in extremities, new or unusual visual symptoms, low sugar/hypoglycemic reactions, weight loss/gain, lightheadedness/dizziness, and bowel changes/loose stools. Follows a diabetic diet most of the time. She is compliant with medication(s) and is tolerating med(s) without any side effects. She reports checking her glucose on a once a day schedule with sugars in the fasting 90s-110s. Uses a sliding scale if greater than 150 but hasn't needed more then onceevery few weeks. Patient's last HgA1C was Hemoglobin A1C (%) Date Value 12/05/2022 5.7 06/19/2022 5.8 12/07/2020 6.7 08/27/2020 6.4 Hemoglobin A1C (POCT) (%) Date Value 12/09/2021 6.2 09/06/2021 6.1 ) Last Ophthalmology exam was over a year ago but has scheduled follow up at the end of this month Had symptoms of UTI with bleeding in her urine in September which was treated with macrobid, but had rash so treated with bactrim DS. Ended up being on this for 17 days. Last saw gynecology 1.5 years ago. Dysuria has resolved but yesterday morning had blood in her urine and noticed it on her pad as wellthat she uses for urinary incontinence. Intermittent lower abdominal cramping that is mild in nature. Also noticed she has been having mucousy clear to white discharge over the past few days. Noticesa different odor. Denies odor being foul or fishy but is just different. No new sexual partners and has not had sexual intercourse in over 20 years. Last vaginal exam was about 1.5 years ago. Denies difficulty or pain with urination fever, chills, or other new concerns. HTN: Ms. Urbina indicates that she is feeling well and denies any symptoms referable to elevated blood pressure. Specifically denies headache, chest pain, palpitations, dyspnea, and peripheral edema. Patient denies any side effects of her medication(s) and is compliant with their regimen. She doesnot check BP's generally. Last 3 Encounter BP Readings: Date: BP: 12/11/2022 132/78 10/05/2022 118/76 09/22/2022 128/60 REVIEW OF SYSTEMS General: no fevers, no chills, no night sweats, no recurrent infections, no change in appetite, no change in energy, and no significant changes in weight Respiratory: no cough, no wheezing, no shortness of breath, no hemoptysis Cardiovascular: no chest pain, no chest pressure, no palpitations, and no swelling Neurologic: No headache, weakness, numbness,dizziness, memory loss, syncope. PAST MEDICAL HISTORY Diagnosis Date Abdominal pain 2022 Arthritis Benign neoplasm of colon Benign polyps. 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 Lumpectomy, completed radiation 06/27/10. No chemotherapy. Myalgia and myositis, unspecified Obesity, unspecified Obesity Obstructive sleep apnea syndrome 05/24/2015 No longer needs CPAP Pain in joint of right shoulder 09/03/2014 Plantar fascial fibromatosis Seborrheic dermatitis, unspecified Shortness of breath Type II or unspecified type diabetes mellitus without mention of complication, not stated as uncontrolled Unspecified hemorrhoids without mention of complication Hemorrhoids Urinary incontinence overactive bladder PAST SURGICAL HISTORY Procedure Laterality Date ADENOIDECTOMY PRIMARY <AGE 10 age 3 Adenoidectomy BX BREAST PERC NEED W/GUID 02/11/2010 U/S Needle core UOQ right breast bx BX/EXC LYMPH NODE OPEN DEEP AXILLARY NODE 03/16/2010 RIGHT - [facility] Dr. Dung Mayo CATH IMPL VASC ACCESS PORTAL 03/03/2020 DELIVERY ONLY , low cervical x4 CHOLECYSTECTOMY 01/11/1981 Cholecystectomy COLONOSCOPY 06/21/2021 , repeat in 3 years COLONOSCOPY FLX DX W/COLLJ SPEC WHEN PFRMD 08/30/2001 Colonoscopy COLONOSCOPY FLX DX W/COLLJ SPEC WHEN PFRMD 07/17/2012 Colonoscopy COLONOSCOPY FLX DX W/COLLJ SPEC WHEN PFRMD 12/02/2015 Colonoscopy (Needs MAC next time) COLONOSCOPY GEN ANES 01/16/2020 COLONOSCOPY W/BIOPSY SINGLE/MULTIPLE 06/01/2006 EGD 01/16/2020 EGD FLEX REMOVAL LESION(S) BY HOT BIOPSY FORCEPS 08/30/2001 EGD TRANSORAL BIOPSY SINGLE/MULTIPLE 06/01/2006 EGD TRANSORAL BIOPSY SINGLE/MULTIPLE 12/23/2009 EGD W/O [facility] SPEC VARICIES INJ 06/21/2021 EGD W/O [facility] SPEC VARICIES INJ 07/25/2022 ESOPHAGOGASTRODUODENOSCOPY TRANSORAL DIAGNOSTIC 12/02/2015 EGD IMAGING GUIDED RADIOFREQUENCY LIVER ABLATION 04/2020 ablation IR RADIO FREQUENCY ABLATION 11/2017 LAPAROSCOPIC HEMICOLECTOMY 01/26/2020 LIG/TRNSXJ FLP TUBE ABDL/VAG APPR UNI/BI Tubal ligation MASTECTOMY, PARTIAL 03/16/2010 RIGHT - [facility] Dr. Dung Mayo PREOP PLACEMENT NEEDLE LOC 03/16/2010 U/S wire loc UOQ right breast PULMONARY FUNCTION TEST 05/22/2005 SIGMOIDOSCOPY FLX DX W/COLLJ SPEC BR/WA IF PFRMD 04/06/1999 Sigmoidoscopy, flexible TONSILLECTOMY PRIMARY/SECONDARY <AGE 10 age 3 Tonsillectomy ALLERGIES Ciprofloxacin, Claritin [Loratadine], Dicyclomine, E-Mycin [Erythromycin], Gemtesa [Vibegron], Macrobid [Nitrofurantoin Monohyd/M-Cryst], Myrbetriq [Mirabegron], Naproxen, Oruvail [Ketoprofen], Relafen [Nabumetone], and Statin [Other] MEDICATIONS gabapentin (NEURONTIN) 300 mg capsule Take 300 mg by mouth once daily. docusate sodium (COLACE) 100 mg capsule Take 100 mg by mouth two times a day. diclofenac (VOLTAREN ARTHRITIS PAIN) 1 % topical gel Apply 2 g to affected area four times daily. insulin lispro (HUMALOG KWIKPEN INSULIN) 100 unit/mL Sliding scale during chemotherapy for glucose readings with meals 151 - 200 2 units 201 - 250 4 units 251 - 300 6 units 301 - 350 8 units 351-400 10 units >400 contact office metFORMIN ER (GLUCOPHAGE XR) 500 mg 24 hr tablet Take 2 tablets by mouth daily with breakfast. valsartan (DIOVAN) 160 mg tablet Take 1 tablet by mouth once daily. insulin needles, DISPOSABLE, (PEN NEEDLE) 31 gauge x 5/16" Use one needle per dose. 3 per day. omeprazole (PRILOSEC) 40 mg capsule Take 1 capsule by mouth once daily. aspirin, enteric coated (ASPIRIN, ENTERIC COATED) 81 mg EC tablet Take 1 tablet by mouth once daily. tiotropium 2.5 mcg-olodateroL 2.5 mcg/actuation mist for inhalation (STIOLTO RESPIMAT) Inhale 2 Puffs as instructed once daily. (Patient taking differently: Inhale 2 Puffs as instructed once daily. Using every other day) metoprolol succinate ER (TOPROL XL) 50 mg 24 hr tablet Take 1 tablet by mouth once daily. ondansetron orally disintegrating (ZOFRAN ODT) 4 mg disintegrating tablet Take 1 tablet by mouth every 6 hours as needed for nausea/vomiting. diphenhydrAMINE (BENADRYL) 25 mg capsule Take 25 mg by mouth every 6 hours as needed. acetaminophen (TYLENOL) 500 mg tablet Take 500 mg by mouth every 8 hours as needed. Lancets lancets Test blood sugar(s) 4 times daily. Dx: Type 2 DM - Uncontrolled E11.65 Insulin: Yes blood sugar diagnostic (ONETOUCH ULTRA TEST) test strip TEST ONCE DAILY magnesium oxide (MAG-OX) 400 mg (241.3 mg magnesium) tablet Take 1 tablet by mouth once daily. diclofenac (VOLTAREN ARTHRITIS PAIN) 1 % topical gel Apply 2 g to affected area once daily. furosemide (LASIX) 20 mg tablet Take 0.5 tablets by mouth once daily. amLODIPine (NORVASC) 10 mg tablet Take 1 tablet by mouth once daily. lancets (ONE TOUCH DELICA) 33 gauge Test blood sugar(s) 1 daily. Dx: Type 2 DM - Controlled E11.9 Insulin: No [DISCONTINUED] Omeprazole Magnesium (PRILOSEC OTC) 20 mg tablet Take 2 tablets by mouth once daily. lidocaine-prilocaine (EMLA) 2.5-2.5 % cream Apple to port site 60 minutes prior to accessing Fenofibrate (LOFIBRA) 54 mg tablet Take 54 mg by mouth once daily. hydrOXYchloroQUINE (PLAQUENIL) 200 mg tablet Take 200 mg by mouth once daily. Diclofenac Sodium (SOLARAZE) 3 % gel Apply to affected area three times daily as needed. [place]-3 Fatty Acids 500 mg cap Take 1 capsule by mouth once daily. morphine SR (MS CONTIN, ORAMORPH SR) 15 mg 12 hr tablet Take 15 mg by mouth every 8 hours as needed. cyanocobalamin (VITAMIN B-12) 1,000 mcg tab Take 1,000 mcg by mouth once daily. FOLIC ACID 800 MCG TAB Take by mouth once daily. FAMILY HISTORY Problem Relation Age of Onset Diabetes Mother Colon Cancer Mother PASSED FROM THIS AT THE AGE OF 62 Heart Father HAD AN [place] IN MID TO LATE 50s, FROM THIS. other (Other) Sister MVA No Known Problems Sister Hypertension Sister Systemic Lupus Erythematosus Sister other (RHUMATOID ARTHRITIS) Sister SAME SISTER HYPERTENSION Cancer Brother Lymphoma. Cancer free for 10 years. Coronary Artery Disease Brother Stent other (Episodes of numbness) Brother having dx testing Colon Cancer Brother Bipolar disorder Daughter Arthritis Daughter Psoriactic other (Epilepsy) Daughter other (cerebral spinal fluid leak) Son other (colitis) Son Autism Grandchild Asthma No Family History Emphysema No Family History Blood Clots No Family History No PE. Social History Tobacco Use Smoking status: Never Smokeless tobacco: Never Tobacco comments: Household ETS for 50 years. Vaping Use Vaping Use: Never used Substance Use Topics Alcohol use: No Drug use: No PHYSICAL EXAM BP 132/78 Pulse 74 Resp 16 Wt 96.2 kg (212 lb) SpO2 96% BMI 37.55 kg/m General Appearance: well appearing, in no acute distress, alert Pysch: mood and affect broad and appropriate Skin: Skin color, texture, turgor normal for age; Eyes: conjunctiva pink and moist, no icterus, sclera white, non-injected Lungs: Lungs clear to auscultation. No wheezing, rhonchi, rales. Heart: RRR without murmur, gallop, or rubs. No ectopy Abdomen: Abdomen soft, non-tender. Bowel sounds normal. No masses, organomegaly Health maintenance reviewed with patient: Alpha-1 Antitrypsin Deficiency Screening Never done Hepatitis B Vaccine(1 of 3 - Risk 3-dose series) Never done RSV Vaccine(1 - 1-dose 60+ series) Never done Dilated Retinal Exam due on 10/25/2021 Influenza Vaccine(1) due on 10/06/2022 Covid-19 Vaccine(4 - 2022- season) due on 10/06/2022 Urine Albumin:Creatinine Ratio due on 12/01/2022 DTaP,Tdap,Td Vaccine(2 - Td or Tdap) due on 02/21/2023 HbA1C due on 06/05/2023 Mammogram Screening due on 06/10/2023 LDL Cholesterol due on 06/20/2023 Annual PCP Team Chronic Disease Visit due on 09/23/2023 BP Controlled (<130/80) due on 10/06/2023 Serum Creatinine due on 12/06/2023 Hemoglobin/Hematocrit due on 12/06/2023 Diabetic Foot Exam due on 12/09/2023 Colorectal Cancer Screening due on 06/21/2024 Bone Density Screening Completed Spirometry Completed Advance Directive Discussion Completed Depression Assessment Completed Hepatitis C Screening Completed Shingrix Vaccine Completed Pneumococcal Vaccine: 65+ Completed HPV Vaccine Aged Out DATA REVIEWED: Most recent labs ASSESSMENT/PLAN: 1. Type 2 diabetes mellitus with stage 3a chronic kidney disease, with long-term current use of insulin (HCC) - ICD9: 250.40, 585.3, V58.67, ICD10: E11.22, N18.31, Z79.4 (primary diagnosis) - Controlled - Continue current medications - decreasing metformin to once daily because of DM well controlled and has CKD - Blood glucose monitoring on a once daily schedule - Counseled on healthy diet and regular exercise - Discussed need for and benefit of weight loss. BMI 37.55 kg/(m^2) - eGFR: 49 Stable - Counseled on avoiding NSAIDs, adequate hydration - ALBUMIN/CREAT RATIO RND UR - LIPID PANEL BASIC - COMP METABOLIC PANEL - CBC - HGB A1C 2. Hematuria, unspecified type - ICD9: 599.70, ICD10: R31.9 - UTI versus vaginal cause. - CONSULT TO GYNECOLOGY - COMP METABOLIC PANEL - URINALYSIS WITH MICROSCOPIC, REFLEX CULTURE 3. Vaginal discharge - ICD9: 623.5, ICD10: N89.8 - with recent UTI will treat for possible candidiasis. - CONSULT TO GYNECOLOGY 4. Vagina bleeding - ICD9: 623.8, ICD10: N93.9 - CONSULT TO GYNECOLOGY 5. 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) - ICD9: 404.91, 428.32, 585.3, 428.0, ICD10: I13.0, I50.32, N18.31 - Controlled - Continue current medications - Recommend home blood pressure monitoring, to bring results to next visit - Encouraged sodium restriction, DASH or Mediterranean diet - Recommend regular aerobic exercise - eGFR: 49 Stable - Counseled on avoiding NSAIDs, adequate hydration - COMP METABOLIC PANEL - CBC 6. Lipid screening - ICD9: V77.91, ICD10: Z13.220 - LIPID PANEL BASIC - COMP METABOLIC PANEL 7. Hypomagnesemia - ICD9: 275.2, ICD10: E83.42 - MAGNESIUM OXIDE 400 MG (241.3 MG MAGNESIUM) TABLET - MAGNESIUM BLD 8. Need for influenza vaccination - ICD9: V04.81, ICD10: Z23 - INFLUENZA VACCINE, PRSV FREE, AGE 65+ YR, HIGH DOSE, QUADRIVALENT (FLUZONE HIGH-DOSE) Prescription instructions reviewed with patient as applicable. Potential red flag symptoms discussed with the patient. Reviewed appropriate action plan to take if red flag symptoms occur. Patient agreeable to treatment plan. Estefani Willard APRN.ADMINISTRATIVE PROCESSOR [facility] Instructions* Patient Instructions* Patricia Deluca - 12/08/2022 12:18 PM EDT Diabetes Foot Care Instructions When you have diabetes, proper foot care is very important. Poor foot care may lead to amputation of a foot or leg. As a person with diabetes, you are more vulnerable to foot problems, because diabetes can damage your nerves and reduce blood flow to your feet. Here are some diabetes foot care tips to follow: Wash and Dry Your Feet Daily Use mild soaps Use warm water Pat your skin dry; do not rub. Thoroughly dry your feet. After washing, use lotion on your feet to prevent cracking. Do not put lotion between your toes. Examine Your Feet Each Day Check the tops and bottoms of your feet. Have someone else look at your feet if you cannot see them. Check for dry, cracked skin. Look for blisters, cuts, scratches, or other sores. Check for redness, increased warmth, or tenderness when touching any area of your feet. Check for ingrown toenails, corns, and calluses. If you get a blister or sore from your shoes, do not "pop" it. Apply a bandage and wear a differentpair of shoes. Take Care of Your Toenails Cut toenails after bathing, when they are soft. Cut toenails straight across and smooth with a nail file. Avoid cutting into the corners of toes. Do not cut cuticles. If you have neuropathy (or decreased sensation in your feet) a head start assistant teacher should always cut your toenails. Be Careful When Exercising Walk and exercise in comfortable shoes. Do not exercise when you have open sores on your feet. Protect Your Feet With Shoes and Socks Never go barefoot. Always protect your feet by wearing shoes or hard-soled slippers or footwear. Avoid shoes with high heels and pointed toes. Avoid shoes that expose your toes or heels (such as open-toed shoes or sandals). These types of shoes increase your risk for injury and potential infections. Try on new footwear with the type of socks you usually wear. Do not wear new shoes for more than an hour at a time. Change your socks daily. Look and feel inside your shoes before putting them on to make sure there are no foreign objects orrough areas. Avoid tight socks. Wear natural-fiber socks (cotton, wool, or a cotton-wool blend). Wear special shoes if your health care provider recommends them. Wear shoes/boots that will protect your feet from various weather conditions (cold, moisture, etc.). Make sure your shoes fit properly. If you have neuropathy (nerve damage), you may not notice that your shoes are too tight. Perform the "footwear test" described below. Footwear Test Use this simple test to see if your shoes fit correctly: Stand on a piece of paper. (Make sure you are standing and not sitting, because your foot changes shape when you stand.) Trace the outline of your foot. Trace the outline of your shoe. Compare the tracings: Is the shoe too narrow? Is your foot crammed into the shoe? The shoe should be at least 1/2 inch longer than your longest toe and as wide as your foot. Proper Shoe Choices The following types of shoes are best for people with diabetes Closed toes and heels Leather uppers without a seam inside At least 1/2 inch extra space at the end of your longest toe Inside of shoe should be soft with no rough areas Outer sole should be made of stiff material Shoes should be at least as wide as your feet Tips for Foot Care in Diabetes Don't wait to treat a minor foot problem if you have diabetes. Follow your health care provider's guidelines and first aid guidelines. Report foot injuries and infections to your health care provider immediately. Check water temperature with your elbow, not your foot. Do not use a heating pad on your feet. Do not cross your legs. Do not self-treat your corns, calluses, or other foot problems. Go to your health care provider or head start assistant teacher to treat these conditions. documented [facility] this [facility] History of Present illness Narrative* Patricia Deluca - 12/08/2022 12:14 PM EDT Images from the original note were not included. Initial Office Visit Subjective: This 71 year old female presents to clinic for diabetic foot check. Patient has the following complaints: b/l foot pain related to arthritis. Patient uses voltaren gel and that does help.. Patient admits to being diabetic for multiple years now. Patient -B/T/N in feet at this time. Patient -pain in legs when walking. No other pedal complaints at this time. No change in medications or medical history since last visit. PAIN EVALUATION 12/08/2022 1201 Pain Level: 8 Pain Location: -- bilateral feet Description: Numbness;Stabbing;Aching Feel cold Duration Amount of Time: -- Ongoing Frequency: Intermittent Intervention/Comfort measure: Medication;Reposition Hemoglobin A1C (%) Date Value 12/05/2022 5.7 06/19/2022 5.8 04/14/2022 6.1 04/08/2022 6.1 02/21/2022 6.2 12/07/2020 6.7 08/27/2020 6.4 04/14/2020 6.0 12/22/2019 6.0 06/10/2019 6.0 Hemoglobin A1C (POCT) (%) Date Value 12/09/2021 6.2 09/06/2021 6.1 06/06/2021 6.4 PCP: Yasemin Connors MD PAST MEDICAL HISTORY Diagnosis Date Abdominal pain 2022 Arthritis Benign neoplasm of colon Benign polyps. 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 Lumpectomy, completed radiation 06/27/10. No chemotherapy. Myalgia and myositis, unspecified Obesity, unspecified Obesity Obstructive sleep apnea syndrome 05/24/2015 No longer needs CPAP Pain in joint of right shoulder 09/03/2014 Plantar fascial fibromatosis Seborrheic dermatitis, unspecified Shortness of breath Type II or unspecified type diabetes mellitus without mention of complication, not stated as uncontrolled Unspecified hemorrhoids without mention of complication Hemorrhoids Urinary incontinence overactive bladder Current Outpatient Medications Medication Sig insulin lispro (HUMALOG KWIKPEN INSULIN) 100 unit/mL Sliding scale during chemotherapy for glucose readings with meals 151 - 200 2 units 201 - 250 4 units 251 - 300 6 units 301 - 350 8 units 351-400 10 units >400 contact office metFORMIN ER (GLUCOPHAGE XR) 500 mg 24 hr tablet Take 2 tablets by mouth daily with breakfast. valsartan (DIOVAN) 160 mg tablet Take 1 tablet by mouth once daily. insulin needles, DISPOSABLE, (PEN NEEDLE) 31 gauge x 5/16" Use one needle per dose. 3 per day. omeprazole (PRILOSEC) 40 mg capsule Take 1 capsule by mouth once daily. aspirin, enteric coated (ASPIRIN, ENTERIC COATED) 81 mg EC tablet Take 1 tablet by mouth once daily. tiotropium 2.5 mcg-olodateroL 2.5 mcg/actuation mist for inhalation (STIOLTO RESPIMAT) Inhale 2 Puffs as instructed once daily. (Patient taking differently: Inhale 2 Puffs as instructed once daily. Using every other day) metoprolol succinate ER (TOPROL XL) 50 mg 24 hr tablet Take 1 tablet by mouth once daily. ondansetron orally disintegrating (ZOFRAN ODT) 4 mg disintegrating tablet Take 1 tablet by mouth every 6 hours as needed for nausea/vomiting. diphenhydrAMINE (BENADRYL) 25 mg capsule Take 25 mg by mouth every 6 hours as needed. acetaminophen (TYLENOL) 500 mg tablet Take 500 mg by mouth every 8 hours as needed. Lancets lancets Test blood sugar(s) 4 times daily. Dx: Type 2 DM - Uncontrolled E11.65 Insulin: Yes blood sugar diagnostic (N-of-OneTOUCH ULTRA TEST) test strip TEST ONCE DAILY magnesium oxide (MAG-OX) 400 mg (241.3 mg magnesium) tablet Take 1 tablet by mouth once daily. diclofenac (VOLTAREN ARTHRITIS PAIN) 1 % topical gel Apply 2 g to affected area once daily. furosemide (LASIX) 20 mg tablet Take 0.5 tablets by mouth once daily. amLODIPine (NORVASC) 10 mg tablet Take 1 tablet by mouth once daily. lancets (ONE TOUCH DELICA) 33 gauge Test blood sugar(s) 1 daily. Dx: Type 2 DM - Controlled E11.9 Insulin: No lidocaine-prilocaine (EMLA) 2.5-2.5 % cream Apple to port site 60 minutes prior to accessing Fenofibrate (LOFIBRA) 54 mg tablet Take 54 mg by mouth once daily. hydrOXYchloroQUINE (PLAQUENIL) 200 mg tablet Take 200 mg by mouth once daily. Diclofenac Sodium (SOLARAZE) 3 % gel Apply to affected area three times daily as needed. [place]-3 Fatty Acids 500 mg cap Take 1 capsule by mouth once daily. morphine SR (MS CONTIN, ORAMORPH SR) 15 mg 12 hr tablet Take 15 mg by mouth every 8 hours as needed. cyanocobalamin (VITAMIN B-12) 1,000 mcg tab Take 1,000 mcg by mouth once daily. FOLIC ACID 800 MCG TAB Take by mouth once daily. No current facility-administered medications for this visit. ALLERGIES Allergen Reactions Ciprofloxacin Hives Claritin [Loratadin* Intolerance Dicyclomine Other: See Comments, Unknown E-Mycin [Erythromyc* GI Upset, Itching Gemtesa [Vibegron] Swelling Facial swelling Macrobid [Nitrofura* Swelling, Itching Myrbetriq [Mirabegr* Swelling Naproxen Swelling Feet swelled in 2 days Oruvail [Ketoprofen] Rash Relafen [Nabumetone] swelling Statin [Other] Intolerance joint pain PAST SURGICAL HISTORY Procedure Laterality Date ADENOIDECTOMY PRIMARY <AGE 10 age 3 Adenoidectomy BX BREAST PERC NEED W/GUID 02/11/2010 U/S Needle core UOQ right breast bx BX/EXC LYMPH NODE OPEN DEEP AXILLARY NODE 03/16/[address] [facility] [address] Dung Mayo CATH IMPL VASC ACCESS PORTAL 03/03/2020 DELIVERY ONLY , low cervical x4 CHOLECYSTECTOMY 01/11/1981 Cholecystectomy COLONOSCOPY 06/21/2021 , repeat in 3 years COLONOSCOPY FLX DX W/COLLJ SPEC WHEN PFRMD 08/30/2001 Colonoscopy COLONOSCOPY FLX DX W/COLLJ SPEC WHEN PFRMD 07/17/2012 Colonoscopy COLONOSCOPY FLX DX W/COLLJ SPEC WHEN PFRMD 12/02/2015 Colonoscopy (Needs MAC next time) COLONOSCOPY GEN ANES 01/16/2020 COLONOSCOPY W/BIOPSY SINGLE/MULTIPLE 06/01/2006 EGD 01/16/2020 EGD FLEX REMOVAL LESION(S) BY HOT BIOPSY FORCEPS 08/30/2001 EGD TRANSORAL BIOPSY SINGLE/MULTIPLE 06/01/2006 EGD TRANSORAL BIOPSY SINGLE/MULTIPLE 12/23/2009 EGD W/O [facility] SPEC VARICIES INJ 06/21/2021 EGD W/O [facility] SPEC VARICIES INJ 07/25/2022 ESOPHAGOGASTRODUODENOSCOPY TRANSORAL DIAGNOSTIC 12/02/2015 EGD IMAGING GUIDED RADIOFREQUENCY LIVER ABLATION 04/2020 ablation IR RADIO FREQUENCY ABLATION 11/2017 LAPAROSCOPIC HEMICOLECTOMY 01/26/2020 LIG/TRNSXJ FLP TUBE ABDL/VAG APPR UNI/BI Tubal ligation MASTECTOMY, PARTIAL 03/16/[address] [facility] [address] Dung Mayo PREOP PLACEMENT NEEDLE LOC 03/16/2010 U/S wire loc UOQ right breast PULMONARY FUNCTION TEST 05/22/2005 SIGMOIDOSCOPY FLX DX W/COLLJ SPEC BR/WA IF PFRMD 04/06/1999 Sigmoidoscopy, flexible TONSILLECTOMY PRIMARY/SECONDARY <AGE 10 age 3 Tonsillectomy FAMILY HISTORY Problem Relation Age of Onset Diabetes Mother Colon Cancer Mother PASSED FROM THIS AT THE AGE OF 62 Heart Father HAD AN [place] IN MID TO LATE 50s, FROM THIS. other (Other) Sister MVA No Known Problems Sister Hypertension Sister Systemic Lupus Erythematosus Sister other (RHUMATOID ARTHRITIS) Sister SAME SISTER HYPERTENSION Cancer Brother Lymphoma. Cancer free for 10 years. Coronary Artery Disease Brother Stent other (Episodes of numbness) Brother having dx testing Colon Cancer Brother Bipolar disorder Daughter Arthritis Daughter Psoriactic other (Epilepsy) Daughter other (cerebral spinal fluid leak) Son other (colitis) Son Autism Grandchild Asthma No Family History Emphysema No Family History Blood Clots No Family History No PE. Social History Tobacco Use Smoking status: Never Smokeless tobacco: Never Tobacco comments: Household ETS for 50 years. Vaping Use Vaping Use: Never used Substance Use Topics Alcohol use: No Drug use: No REVIEW OF SYSTEMS GENERAL: Negative for Malaise, significant weight loss, fever RESPIRATORY: Negative for cough, wheezing and shortness of breath CARDIOVASCULAR: Negative for chest pain, leg swelling and palpitations GI: Negative for abdominal discomfort, blood in stools or black stools and change in bowel habits : Negative for dysuria, frequency and incontinence MUSCULOSKELETAL: Negative for joint pain or swelling, back pain, and muscle pain. SKIN: Negative for lesions, rash, and itching. HEMATOLOGY/LYMPHOLOGY Negative for prolonged bleeding, bruising easily, and swollen nodes. ENDOCRINE: Negative for cold or heat intolerance, polyuria, polydipsia and goiter. NEURO: negative The remainder of the review of systems is noncontributory. Objective: Patient presents to clinic ambulating in [facility] Constitutional: Pt is a well developed 71 year old female who is alert, oriented, cooperative and in no apparent distress. Eyes: Following during examination. No redness or drainage. Respiratory: RR normal and nonlabored. Even breathing. No evidence of distress. Psychology: Patient is engaged during conversation. Normal affect and mood. Does not appear depressed or anxious. Vasc: DP and PT pulses are palpable bilateral. CFT is less than 5 seconds bilateral. Skin temperature is warm to warm proximal to distal bilateral. There is no edema or varicosities noted. Hair growth present. Neuro: Protective sensation is intact to the foot and toes when tested with the 5.07 SWM bilateral.Vibratory sensation is decreased at the hallux bilateral. Significant neurological defecits. Derm: Inspection and palpation performed. Nails 1-5 b/l are normal in length and thickness. Skin isof normal turgor and texture. Hyperkeratosis noted to not present. NO ulcerations, scars, verruca or other lesions noted. Ortho: Ankle joint DF is full with the knee extended and full with knee flexed. No pain or crepitusnoted. STJ, MTJ ROM are full and free of pain or crepitus. Muscle strength is 5/5 for dorsiflexors,plantarflexors, inverters, everters. Digital deformities include none. Mild spurring of b/l midfoot Assessment: (E11.40, Z79.4) Type 2 diabetes mellitus with diabetic neuropathy, with long- term current use of insulin ([facility]) (primary encounter diagnosis) (M19.079) Arthritis of foot Plan: 1. Patient was seen and evaluated. 2. Patient was instructed on the continued importance of diabetic foot care along with proper diet and keeping their blood sugar under control to prevent complications. Instructions given both oral and written. Discussed the need to avoid barefoot walking. Discussed need for daily foot inspection. Use of lotion to help prevent dryness 3. Discussed arthritis of b/l foot. Recommend good supportive shoes. Discussed use of inserts. Voltaren gel prescribed. Patricia Deluca DPM * Key Grayson RN - 12/08/2022 12:01 PM EDT Patient presents with: Right Foot - Established Patient: Diabetic foot care Left Foot - Established Patient Patient here for her annual diabetic foot care. Needs a refill of the Voltaren arthritis 1% topicalgel. States it helps with her neuropathy pain. AMB ROOMING INTAKE FLOWSHEET DATA Pain Pain Level: 8 Pain Location: (bilateral feet) Description: Numbness, Stabbing, Aching (Feel cold) Duration Amount of Time: (Ongoing) Frequency: Intermittent Intervention/Comfort measure: Medication, Reposition Key Grayson RN documented [facility] Miscellaneous Notes* Telephone Encounter - Rica Hayward RN - 10/10/2022 8:52 AM EDT Patient following up with Dr. Kendrick. See phone note from Internal Med on 10/07/22 Doreen Hayward RN * Telephone Encounter - Geneva Ramos APRN.CNP - 10/10/2022 8:17 AM EDT Please advise pt. to follow up with who treated her UTI. Thank you. Geneva Ramos APRN.MARGO * Telephone Encounter - Rica Hayward RN - 10/06/2022 3:06 PM EDT [facility] Care Coordination FOLLOW-UP NOTE Patient identified by name and date of . YES Spoke to patient Summary: (Reason for follow-up) Hematuria Concerns: (New Barriers to care) Patient states she was just in to see Geneva yesterday and no issues with urine/hematuria. Had just finished antibiotics for a UTI prior to OV. Today, she has noticed some bleeding on the tissue and on her sanitary pad when she went to the bathroom. Not much but wanted to let us know. She is not having any urinary symptoms. No fever/chills. Patient verbalized when to seek Medical Attention and an understanding of after- hours phone numberand process: YES Care Coordination Plan: Will discuss with Dr. Vallejo (Geneva not in the office at this time) and callpatient back with further instructions. Addendum: noted that patient has also called her PCP regarding above prior to calling us. Rica Hayward RN October 06, 2022 documented in this [facility]-2023 Miscellaneous Notes* Telephone Encounter - Angela Louise RN - 10/07/2022 12:09 PM EDT Patient notified of results and provider's instructions. Patient verbalizes understanding. Angela Louise RN * Telephone Encounter - Froilan Kendrick MD - 10/07/2022 11:58 AM EDT Noted was treated with Bactrim 09/22 and symptoms improved but recurred after antibiotic completed. Treated for 7 days. UAWMIC showed lots of WBCs but not a lot of RBCs though was dipstick positive. Urine culture still pending. Several antibiotic allergies so will extend course of Bactrim. Noted Keflex ordered if 2016 but switched to Bactrim after a day--cannot tell why the change, but will stick with Bactrim for now since tolerated and was effective. Make adjustments if UCx shows need for changing antibiotic. Note that this med can interact with her Diovan and cause elevated potassium--she tolerated it before several times, but just make sure avoid too much potassium and stay well hydrated (which should be doing to prevent and treat UTI). The following approved medication requests have been transmitted electronically. Requested Prescriptions Signed Prescriptions Disp Refills sulfamethoxazole-trimethoprim (BACTRIM DS) 800-160 mg per tablet 20 tablet 0 Sig: Take 1 tablet by mouth twice daily for 10 days. Authorizing Provider: FROILAN KENDRICK MD * Telephone Encounter - Angela Louise RN - 10/07/2022 11:25 AM EDT Patient calls and is asking about urine results. [facility]. Please review and advise, Angela Louise RN documented in this encounterSouthern [facility]09-01-2023 Miscellaneous Notes* Telephone Encounter - Balbina Morillo APRN.CNP - 10/06/2022 4:07 PM EDT Orders signed, will watch for results. * Telephone Encounter - Janis Hobson LPN - 10/06/2022 3:34 PM EDT Patient states that she will come in to have urine check done. Please place orders. * Telephone Encounter - Balbina Morillo APRN.CNP - 10/06/2022 3:16 PM EDT Can we please return her call and see if she is able to do a repeat urine dip/culture to see if we can evaluate if this is a reoccurrence of the UTI or possibly a long chain beamer issue such as a yeast infection secondary to being on the antibiotics. I'm hoping she can come in today before the long weekend. * Telephone Encounter - Marie Kaufman RN - 10/06/2022 2:55 PM EDT Patient reports she was most recently treated for hematuria by Balbina Morillo CNP and states it resolved for 1 week. Reports hematuria has returned today. Noted light red on her urinary incontinence pad and when she wipes. Believes it to be bladder related but cannot rule out vaginal. Denies fever, back pain, abdominal pain or other sx's. Reports did have a quick pain to her left ovary area yesterday but none since. Asking for Balbina to advise if able. Pt states she can contact her [employer] as well if provider feels this is appropriate. Per copied portions of 09/22 OV note: Patient "was seen 09/18 and had a urine dip checked for some noted hematuria. Culture was positive for e coli infection with susceptibility to Macrobid. She has multiple medication allergies including cipro" -per 09/22 copied OV note by Balbina Morillo. ASSESSMENT/PLAN: Acute cystitis with hematuria - ICD9: 595.0, ICD10: N30.01 (primary diagnosis) Stop the Macrobid, added to allergy list, start Bactrim since culture shows susceptibility (notes in chart search show this was previously tolerated). - SULFAMETHOXAZOLE 800 MG-TRIMETHOPRIM 160 MG TABLET Please advise patient. Thank you. documented in this encounterSouthern [facility]08-31-2023 History of Present illness Narrative* Geneva Ramos, TANIA.ADMINISTRATIVE PROCESSOR - 10/05/2022 1:45 PM EDT Chief Complaint Patient presents with: 6 month check HPI: Saeid Urbina is a 71 year old female who presents here today for follow up colon cancer. Per Dr. 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 Patient developed symptoms of dyspepsia including upper abdominal discomfort and postprandial nausea. She also had early satiety and had been noted to have weight loss over the preceding 6 months. She underwent a colonoscopy and was observed to have a near obstructing lesion in the mid transverse colon highly suspicious for malignancy. The scope could not be advanced past this lesion. A clip was placed. Biopsies were performed but evidently nondiagnostic. CT A/P 01/19/2020: Liver: No mass. Biliary: The gallbladder is absent. There is mild dilation of the common bile duct/common hepatic duct. Spleen: No mass. No splenomegaly. Pancreas: No mass or duct dilation. Adrenals: No mass. Kidneys: 2-3 mm tiny attenuations in the bilateral kidneys, too small to progress. There appear to be a few parapelvic cyst. No hydronephrosis. GI tract: A 3 cm bowel wall thickening with narrowing of the lumen noted in the transverse colon, in appearance of apple core, concerning for malignancy. No bowel obstruction. Some fecal retention is noted. Lymph nodes: No abdominal or pelvic lymphadenopathy. Mesentery/Peritoneum: No ascites or mass or free abdominal air. Retroperitoneum: No mass. Vasculature: The celiac axis and SMA are patent. The portal vein and branches, splenic vein, SMV, and hepatic veins are patent. Pelvis: No mass, ascites or fluid collection. Bones/Soft Tissues: A 2 cm hyperdensity noted in the right anterior abdominal wall, likely presenting injection granuloma. There is a 2.5 x 3.8 cm fat-containing paraumbilical hernia. The spine shows degenerative changes with multilevel disc space narrowing. No definite destructive bony lesions seen. Lower thorax: No pleural effusions. Mild atelectatic changes noted in the right middle lobe and lingula. Field Account Director (topogram) images: No additional findings. Patient was [facility] to [facility] 01/[facility]. She underwent a laparoscopic colectomy partial right hemicolectomy and laparoscopic liver biopsy onthe same day. Pathology: FINAL DIAGNOSIS 1. Right colon, terminal ileum, and appendix, extended right hemicolectomy (A): - Adenocarcinoma involving transverse colon and extending into pericolonic soft tissue, margins negative (see synoptic). - Metastatic adenocarcinoma in one lymph node (02/18). 2. Liver, biopsy (B): Metastatic adenocarcinoma, consistent with colorectal origin. COMMENT Immunohistochemistry was performed on the liver biopsy, and tumor cells strongly express CDX2 and CK7, while CK20 is negative. The features are consistent with metastatic spread of the patient's colorectal adenocarcinoma. SYNOPTIC REPORT OF MAE PATHOLOGIC FINDINGS EXTENDED RIGHT COLON: COLON AND RECTUM:RESECTION, INCLUDING TRANSANAL DISK EXCISION OF RECTAL NEOPLASMS WORKSHEET: Procedure: Right hemicolectomy Tumor Site: Transverse colon Tumor Size: Greatest dimension: 3.5 cm Macroscopic Tumor Perforation: Not identified Macroscopic Intactness of Mesorectum: Not applicable Histologic Type: Adenocarcinoma Histologic Grade: G2: Moderately differentiated Tumor Extension: Tumor invades through the muscularis propria into pericolorectal tissue Margins: All margins are uninvolved by invasive carcinoma, high-grade dysplasia, intramucosal adenocarcinoma, and adenoma Margins examined: proximal, distal, radial, mesenteric Proximal Margin: Uninvolved by invasive carcinoma Distal Margin: Uninvolved by invasive carcinoma Circumferential Radial Margin: Uninvolved by invasive carcinoma Mesenteric Margin: Uninvolved by invasive carcinoma Treatment Effect: No known presurgical therapy Lymphovascular Invasion: Present Perineural Invasion: Present Type of Polyp in which Invasive Carcinoma Arose: Tubular adenoma Tumor Deposits: Not identified Regional Lymph Nodes: Number of nodes involved: 1 Number of nodes examined: 14 Pathologic Stage Classification (pTNM,AJCC 8th ed) TNM Descriptors: Not applicable Pathologic Staging (pTNM): pT3: Tumor invades through the muscularis propria into pericolorectal tissues Regional Lymph Nodes (pN): pN1a: One regional lymph node is positive Distant Metastasis (pM): pM1: Metastasis to one or more distant sites or organs or peritoneal metastasis is identified --------- Had MRI of the liver as well as CT scan of chest, abdomen pelvis. Underwent PET scan which suggested liver only metastasis. Laparoscopic microwave ablation of liver metastasis under ultrasound guidance on 04/23/2020. Previous therapy: 1) Adjuvant FOLFIRI. Completed 12 cycles as of 01/24/2021. Had egd/colonoscopy in June [address] Pérez. Next due in 3 years. Pt. here today with her daughter. No new concerns today. Appetite:"Good. I'm eating healthier." Energy level:"6. I get tired. I've been doing a lot more." Denies fevers. Resp:denies cough or sob Cardiac:denies chest pain/palpitations GI:denies abd pain, occ. nausea, denies vomiting recently, +constipation-taking colace daily :denies dysuria/hematuria Extrem:chronic hand/knee/low back pain-followed Dr. Wang and Dr. Brown pain mgmt. 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 Past medical history, appointments, medications, allergies reviewed. No changes. EXAM: BP 118/76 Pulse 61 Temp 37.1 C (98.8 F) (Temporal) Wt 94.8 kg (209 lb) SpO2 96% BMI 37.02kg/m APPEARANCE Well appearing, alert, in no acute distress, well-hydrated, well nourished. HEART RRR with normal S1 and S2, no murmurs LUNG clear to auscultation LYMPH NODES No cervical lymphadenopathy, No supraclavicular lymphadenopathy, and No axillary lymphadenopathy. ABDOMEN bowel sounds normoactive, soft, non-tender EXTREMITIES No edema NEURO Awake, alert and oriented x 3, Normal gait, and No involuntary motions. SKIN Skin color, texture, turgor normal, no suspicious rashes or lesions LABS: Component Latest Ref Rng & Units 04/09/2022 04/14/2022 06/19/2022 10/05/2022 WBC 3.70 - 11.00 k/uL 5.58 6.96 5.47 6.16 RBC 3.90 - 5.20 m/uL 3.96 4.52 4.10 4.22 Hemoglobin 11.5 - 15.5 g/dL 12.2 13.7 12.5 12.7 Hematocrit 36.0 - 46.0 % 36.1 40.9 38.3 38.3 MCV 80.0 - 100.0 fL 91.2 90.5 93.4 90.8 MCH 26.0 - 34.0 pg 30.8 30.3 30.5 30.1 MCHC 30.5 - 36.0 g/dL 33.8 33.5 32.6 33.2 RDW-CV 11.5 - 15.0 % 12.6 12.6 13.0 13.0 Platelet Count 150 - 400 k/uL 142 (L) 153 182 154 MPV 9.0 - 12.7 fL 10.9 11.3 11.4 10.4 Neut% % 56.2 68.7 Abs Neut (ANC) 1.45 - 7.50 k/uL 3.13 4.23 Lymph% % 26.7 20.0 Abs Lymph 1.00 - 4.00 k/uL 1.49 1.23 Cottle% % 14.3 9.4 Abs Cottle <0.87 k/uL 0.80 0.58 Eosin% % 1.4 1.1 Abs Eosin <0.46 k/uL 0.08 0.07 Baso% % 0.7 0.3 Abs Baso <0.11 k/uL 0.04 <0.03 Immature Gran % % 0.7 0.5 IMMATURE GRANS (ABS) <0.10 k/uL 0.04 0.03 NRBC /100 WBC 0.0 0.0 Absolute nRBC <0.01 k/uL <0.01 <0.01 <0.01 <0.01 DTYPE Auto Auto BMP/LFT's/CEA: Pending ASSESSMENT/PLAN: 1. Malignant neoplasm of transverse colon (HCC) - ICD9: 153.1, ICD10: C18.4 (primary diagnosis) 2. Metastases to the liver (HCC) - ICD9: 197.7, ICD10: C78.7 3. Lung nodules - ICD9: 793.19, ICD10: R91.[address] Vallejo's previous note 03/30/21: Assessment: -In summary the patient is a 70-year-old female who was diagnosed with metastatic adenocarcinoma the transverse colon after presenting with a several month history of early satiety and dyspepsia characterized by upper abdominal pain and postprandial nausea. Initial CT scan demonstrated an apple core filling defect in the transverse colon. During surgery, an approximate 1 cm nodule was appreciatedon the liver. Biopsy tissue was consistent with metastatic adenocarcinoma the colon. CTs revealed asuspicious 8 x 6 mm KASHIF lung nodule. MRI suggested a single liver metastasis. Side branch pancreatic IPMNs. -Laparoscopic microwave ablation of liver metastasis under ultrasound guidance on 04/23/2020. -NRAS mutated. -MMR proficient. -HER2 negative. -She had pre-existing sensory neuropathy manifested as numbness in both toes and her ability to walk was compromised by chronic low back and knee pain--uses walker. -The 8 mm nodule in left upper lobe was suspicious but it was not a proven site of metastatic disease. SBRT could be considered for that at some point in the future. -Has now completed 12 cycles of adjuvant FOLFIRI. -Reviewed the results of the CT scans in detail. Stable pulmonary nodules. Unchanged 8 mm nodule inleft adrenal gland dating back to 2009. Stable 1 cm short axis lymph node in the portacaval area. Diffusely hypoattenuating area of capsular retraction with heterogeneous enhancement and decreasing peripheral hyperdensity in keeping with posttreatment changes in the liver. Plan: -Due for colonoscopy. -Labs/CTs then OV in about 4 months. -Continue management under chronic pain management for arthritis and chronic low back pain. - No concerning findings on exam. - Reviewed CBC with pt. and daughter. - BMP/Hep. func/CEA pending. - Follow up with PCP. - CT chest/abd/pelvis due December 2022. - Needs port flushes. - Follow up in 6 months CBC/BMP/LFT's/CEA-pending today's labs. - Pt. aware to call office with any questions/concerns. The patient indicates understanding of these issues and agrees with the plan. All documentation from previous visit of 04/03/22-Dr. Vallejo/myself was copied and pasted, documentation has been reviewed and edited as necessary for today's visit. Geneva Ramos APRN.MARGO documented in this encounter[facility]08-18-2023 Miscellaneous Notes* Telephone Encounter - Balbina Morillo APRN.CNP - 09/22/2022 10:49 AM EDT Noted, will discuss at appt * Telephone Encounter - Julia Cohen RN - 09/22/2022 10:17 AM EDT Protocol recommends see provider in 3 days. Pt is scheduled with Balbina Morillo FITTER TACKER today at 1140 am. Care plan reviewed with patient. Patient voices understanding. Advised patient that if symptoms get worse to be evaluated in Urgent Care or ER. Reason for Disposition Lip swelling is main symptom [1] Mild lip swelling from food reaction AND [2] diagnosis never confirmed by a doctor (or FITTER TACKER/PA) Answer Assessment - Initial Assessment Questions 1. ONSET: The swelling started this morning around 830, 30 min after she took the Macrobid. 2. SEVERITY: States, "It's not real bad." It's just slightly swollen. 3. ITCHING: Denies, last night a couple of her fingers were itching really bad. 4. PAIN: Denies 5. CAUSE: Thinks the Macrobid is causing the lip swelling. 6. RECURRENT SYMPTOM: Had some hive types of things on the back of her neck and the tip of her tongue had been getting sore. Had seen Dr Connors in May or June. Had been happening off and on Dr Connors had wanted her to see a warehouse checker to see if she had an allergy to something. 7. OTHER SYMPTOMS: Denies. 8. : Postmenopausal Protocols used: Allergic Reactions - Guideline [id number], Lip [id number] documented in this encounterSouthern [facility] Center08-17-2023 Miscellaneous Notes* Telephone Encounter - Julia Cohen RN - 09/21/2022 12:42 PM EDT Pt called and is notified of providers results and instructions. Pt voices understanding. Julia Cohen RN * Telephone Encounter - Estefani Willard APRN.CNP - 09/21/2022 12:31 PM EDT Yes, I was waiting for the sensitivity to know what antibiotic to place her on. I ordered nitrofurantoin twice daily for 5 days. Follow up if symptoms do not fully resolve or worsen. Thank you Estefani Willard APRN.MARGO * Telephone Encounter - Mya Samuels LPN - 09/21/2022 10:53 AM EDT Pt calling for urine cultures results. Asking if she needs to be on an ATB. Please advise pt. Pharmacy updated if needed. Mya Samuels LPN documented in this encounterSouthern [facility] Center08-14-2023 History of Present illness Narrative* Estefani Willard APRN.CNP - 09/18/2022 11:57 AM EDT CC: Patient presents with: Recheck: 3 month DM follow up HPI Saeid Urbina is a 71 year old female who presents today for routine follow up. DIABETES MELLITUS: Ms. Urbina denies excessive thirst or increased frequency of urination, chest pain or dyspnea ,new numbness, new tingling or pain in extremities, new or unusual visual symptoms, low sugar/hypoglycemic reactions, weight loss/gain, lightheadedness/dizziness, and bowel changes/loose stools. Follows a diabetic diet most of the time. She is compliant with medication(s) and is tolerating med(s) without any side effects. She reports checking her glucose on a once a day schedule with sugars in the fasting 100s-120s range. Patient's last HgA1C was Hemoglobin A1C (%) Date Value 06/19/2022 5.8 04/14/2022 6.1 12/07/2020 6.7 08/27/2020 6.4 Hemoglobin A1C (POCT) (%) Date Value 12/09/2021 6.2 09/06/2021 6.1 ) Last Ophthalmology exam was within the past [address] Garrido at [facility]. HTN/CKD/Chronic diastolic heart failure: Ms. Urbina indicates that she is feeling well and denies any symptoms referable to elevated blood pressure. Specifically denies headache, chest pain, palpitations, dyspnea, and peripheral edema. Patient denies any side effects of her medication(s) and is compliant with their regimen. She does check BP's away from this office with average BP's in the 120s/60s-70s range. Last 3 Encounter BP Readings: Date: BP: 09/18/2022 144/82 08/04/2022 112/68 07/25/2022 145/[address] Thompson and has routine follow up next month. Noted a small amount of light pink blood on toilet paper this morning after urinating. Sometimes has burning urination and seems like her urine is "thicker" . Saw Dr. Waldrop this past February and they did a scope of her bladder, but unsure what it showed outside of it being normal. Denies fever, chills, or abdominal pain. Also reports she has been more tired then typical. History of colon cancer and breast cancer with mets in the liver in 2019. CT of abdomen and Pelvis wthout contrast in June completed for abdominal pain showing possible epiploic appendagitis. Had follow up with General Surgery to review this, had an EGD showing non severe reflux and non-bleeding gastric ulcer, and placed on a PPI. REVIEW OF SYSTEMS General: no fevers, no chills, no night sweats, no recurrent infections, no change in appetite, andno significant changes in weight Respiratory: no cough, no wheezing, no shortness of breath, no hemoptysis Cardiovascular: no chest pain, no chest pressure, no palpitations, and no swelling GI: No nausea, vomiting, or diarrhea : See HPI Endocrine: no weight gain, no weight loss, no polyuria, no polyphagia, and no polydipsia Neurologic: No headache, weakness, numbness, dizziness, syncope. PAST MEDICAL HISTORY Diagnosis Date Abdominal pain 2022 Arthritis Benign neoplasm of colon Benign polyps. 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 Lumpectomy, completed radiation 06/27/10. No chemotherapy. Myalgia and myositis, unspecified Obesity, unspecified Obesity Obstructive sleep apnea syndrome 05/24/2015 No longer needs CPAP Pain in joint of right shoulder 09/03/2014 Plantar fascial fibromatosis Seborrheic dermatitis, unspecified Shortness of breath Type II or unspecified type diabetes mellitus without mention of complication, not stated as uncontrolled Unspecified hemorrhoids without mention of complication Hemorrhoids Urinary incontinence overactive bladder PAST SURGICAL HISTORY Procedure Laterality Date ADENOIDECTOMY PRIMARY <AGE 10 age 3 Adenoidectomy BX BREAST PERC NEED W/GUID 02/11/2010 U/S Needle core UOQ right breast bx BX/EXC LYMPH NODE OPEN DEEP AXILLARY NODE 03/16/2010 RIGHT - [facility] Dr. Dung Mayo CATH IMPL VASC ACCESS PORTAL 03/03/2020 DELIVERY ONLY , low cervical x4 CHOLECYSTECTOMY 01/11/1981 Cholecystectomy COLONOSCOPY 06/21/2021 , repeat in 3 years COLONOSCOPY FLX DX W/COLLJ SPEC WHEN PFRMD 08/30/2001 Colonoscopy COLONOSCOPY FLX DX W/COLLJ SPEC WHEN PFRMD 07/17/2012 Colonoscopy COLONOSCOPY FLX DX W/COLLJ SPEC WHEN PFRMD 12/02/2015 Colonoscopy (Needs MAC next time) COLONOSCOPY GEN ANES 01/16/2020 COLONOSCOPY W/BIOPSY SINGLE/MULTIPLE 06/01/2006 EGD 01/16/2020 EGD FLEX REMOVAL LESION(S) BY HOT BIOPSY FORCEPS 08/30/2001 EGD TRANSORAL BIOPSY SINGLE/MULTIPLE 06/01/2006 EGD TRANSORAL BIOPSY SINGLE/MULTIPLE 12/23/2009 EGD W/O [facility] SPEC VARICIES INJ 06/21/2021 EGD W/O [facility] SPEC VARICIES INJ 07/25/2022 ESOPHAGOGASTRODUODENOSCOPY TRANSORAL DIAGNOSTIC 12/02/2015 EGD IMAGING GUIDED RADIOFREQUENCY LIVER ABLATION 04/2020 ablation IR RADIO FREQUENCY ABLATION 11/2017 LAPAROSCOPIC HEMICOLECTOMY 01/26/2020 LIG/TRNSXJ FLP TUBE ABDL/VAG APPR UNI/BI Tubal ligation MASTECTOMY, PARTIAL 03/16/2010 RIGHT - [facility] Dr. Dung Mayo PREOP PLACEMENT NEEDLE LOC 03/16/2010 U/S wire loc UOQ right breast PULMONARY FUNCTION TEST 05/22/2005 SIGMOIDOSCOPY FLX DX W/COLLJ SPEC BR/WA IF PFRMD 04/06/1999 Sigmoidoscopy, flexible TONSILLECTOMY PRIMARY/SECONDARY <AGE 10 age 3 Tonsillectomy ALLERGIES Ciprofloxacin, Claritin [Loratadine], Dicyclomine, E-Mycin [Erythromycin], Gemtesa [Vibegron], Myrbetriq [Mirabegron], Naproxen, Oruvail [Ketoprofen], Relafen [Nabumetone], and Statin [Other] MEDICATIONS docusate sodium (COLACE) 100 mg capsule Take 1 capsule by mouth twice daily as needed for constipation. metFORMIN ER (GLUCOPHAGE XR) 500 mg 24 hr tablet Take 2 tablets by mouth daily with breakfast. valsartan (DIOVAN) 160 mg tablet Take 1 tablet by mouth once daily. insulin needles, DISPOSABLE, (PEN NEEDLE) 31 gauge x 5/16" Use one needle per dose. 3 per day. omeprazole (PRILOSEC) 40 mg capsule Take 1 capsule by mouth once daily. aspirin, enteric coated (ASPIRIN, ENTERIC COATED) 81 mg EC tablet Take 1 tablet by mouth once daily. tiotropium 2.5 mcg-olodateroL 2.5 mcg/actuation mist for inhalation (STIOLTO RESPIMAT) Inhale 2 Puffs as instructed once daily. (Patient taking differently: Inhale 2 Puffs as instructed once daily. Using every other day) metoprolol succinate ER (TOPROL XL) 50 mg 24 hr tablet Take 1 tablet by mouth once daily. ondansetron orally disintegrating (ZOFRAN ODT) 4 mg disintegrating tablet Take 1 tablet by mouth every 6 hours as needed for nausea/vomiting. diphenhydrAMINE (BENADRYL) 25 mg capsule Take 25 mg by mouth every 6 hours as needed. acetaminophen (TYLENOL) 500 mg tablet Take 500 mg by mouth every 8 hours as needed. Lancets lancets Test blood sugar(s) 4 times daily. Dx: Type 2 DM - Uncontrolled E11.65 Insulin: Yes blood sugar diagnostic (ONETOUCH ULTRA TEST) test strip TEST ONCE DAILY magnesium oxide (MAG-OX) 400 mg (241.3 mg magnesium) tablet Take 1 tablet by mouth once daily. insulin lispro (HUMALOG KWIKPEN INSULIN) 100 unit/mL Sliding scale during chemotherapy for glucose readings with meals 151 - 200 2 units 201 - 250 4 units 251 - 300 6 units 301 - 350 8 units 351-400 10 units >400 contact office diclofenac (VOLTAREN ARTHRITIS PAIN) 1 % topical gel Apply 2 g to affected area once daily. promethazine (PHENERGAN) 25 mg tablet Take 1 tablet by mouth every 6 hours as needed (For chemotherapy induced nausea). FOR NAUSEA furosemide (LASIX) 20 mg tablet Take 0.5 tablets by mouth once daily. amLODIPine (NORVASC) 10 mg tablet Take 1 tablet by mouth once daily. lancets (ONE TOUCH DELICA) 33 gauge Test blood sugar(s) 1 daily. Dx: Type 2 DM - Controlled E11.9 Insulin: No [DISCONTINUED] Omeprazole Magnesium (PRILOSEC OTC) 20 mg tablet Take 2 tablets by mouth once daily. lidocaine-prilocaine (EMLA) 2.5-2.5 % cream Apple to port site 60 minutes prior to accessing Fenofibrate (LOFIBRA) 54 mg tablet Take 54 mg by mouth once daily. hydrOXYchloroQUINE (PLAQUENIL) 200 mg tablet Take 200 mg by mouth once daily. Diclofenac Sodium (SOLARAZE) 3 % gel Apply to affected area three times daily as needed. [place]-3 Fatty Acids 500 mg cap Take 1 capsule by mouth once daily. morphine SR (MS CONTIN, ORAMORPH SR) 15 mg 12 hr tablet Take 15 mg by mouth every 8 hours as needed. cyanocobalamin (VITAMIN B-12) 1,000 mcg tab Take 1,000 mcg by mouth once daily. FOLIC ACID 800 MCG TAB Take by mouth once daily. FAMILY HISTORY Problem Relation Age of Onset Diabetes Mother Colon Cancer Mother PASSED FROM THIS AT THE AGE OF 62 Heart Father HAD AN [place] IN MID TO LATE 50s, FROM THIS. other (Other) Sister MVA No Known Problems Sister Hypertension Sister Systemic Lupus Erythematosus Sister other (RHUMATOID ARTHRITIS) Sister SAME SISTER HYPERTENSION Cancer Brother Lymphoma. Cancer free for 10 years. Coronary Artery Disease Brother Stent other (Episodes of numbness) Brother having dx testing Colon Cancer Brother Bipolar disorder Daughter Arthritis Daughter Psoriactic other (Epilepsy) Daughter other (cerebral spinal fluid leak) Son other (colitis) Son Autism Grandchild Asthma No Family History Emphysema No Family History Blood Clots No Family History No PE. Social History Tobacco Use Smoking status: Never Smokeless tobacco: Never Tobacco comments: Household ETS for 50 years. Vaping Use Vaping Use: Never used Substance Use Topics Alcohol use: No Drug use: No PHYSICAL EXAM BP 144/82 Pulse 68 Resp 16 Wt 95.7 kg (211 lb) SpO2 97% BMI 37.38 kg/m General Appearance: well appearing, in no acute distress, alert Skin: Skin color, texture, turgor normal for age; Eyes: conjunctiva pink and moist, no icterus, sclera white, non-injected Neck: Thyroid normal size and symmetric without palpable nodules, No adenopathy Lymph nodes: No cervical lymphadenopathy and No supraclavicular lymphadenopathy Lungs: Lungs clear to auscultation. No wheezing, rhonchi, rales. Heart: RRR without murmur, gallop, or rubs. No ectopy Abdomen: Abdomen soft, non-tender. Bowel sounds normal. No masses, organomegaly BUE Extremities: No deformities, edema, skin discoloration, clubbing or cyanosis. Good capillary refill. Health maintenance reviewed with patient: ALPHA-1 ANTITRYPSIN DEFICIENCY SCREENING Never done COVID-19 VACCINE(4 - Moderna series) due on 11/23/2020 DILATED RETINAL EXAM due on 10/25/2021 DTAP,TDAP,TD(2 - Td or Tdap) due on 02/21/2023 INFLUENZA(1) due on 10/06/2022 URINE ALBUMIN:CREATININE RATIO due on 12/01/2022 DIABETIC FOOT EXAM due on 12/08/2022 HBA1C due on 2022 MAMMOGRAM due on 06/10/2023 LDL CHOLESTEROL due on 06/20/2023 HEMOGLOBIN/HEMATOCRIT due on 06/20/2023 SERUM CREATININE due on 06/27/2023 ANNUAL PCP TEAM CHRONIC DISEASE VISIT due on 07/02/2023 BP CONTROLLED (<130/80) due on 08/05/2023 COLORECTAL CANCER SCREENING due on 06/21/2024 BONE DENSITY Completed SPIROMETRY Completed ADVANCE DIRECTIVE DISCUSSION Completed DEPRESSION ASSESSMENT Completed HEPATITIS C SCREENING Completed SHINGRIX VACCINE Completed PNEUMOCOCCAL: 65+ Completed HPV VACCINE Aged Out DATA REVIEWED: Outside chart from [facility] reviewed. ASSESSMENT/PLAN: 1. 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) - ICD9: 250.60, 357.2,ICD10: E11.42 (primary diagnosis) - Controlled - Continue current medications - Blood glucose monitoring on a four times daily schedule - Counseled on healthy diet and regular exercise - Discussed need for and benefit of weight loss. BMI 37.38 kg/(m^2) - INSULIN LISPRO (U-100) 100 UNIT/ML SUBCUTANEOUS PEN - CBC - BASIC METABOLIC PNL - HGB A1C 2. 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) - ICD9: 404.91, 428.32, 585.3, 428.0, ICD10: I13.0, I50.32, N18.31 - Home blood pressure readings controlled - Continue current medications and recommendations by cardiology - Recommend home blood pressure monitoring, to bring results to next visit - Encouraged sodium restriction, DASH or Mediterranean diet - Recommend regular aerobic exercise - eGFR: Stable recent labs at [facility] - creatinine 1.03 GFR 56 - Counseled on avoiding NSAIDs, adequate hydration 3. Hematuria, unspecified type - ICD9: 599.70, ICD10: R31.9 - unsure on cause, if UTI possible cause of her tiredness - UA DIP, URINE (POC) - URINALYSIS, WITH MICROSCOPIC - URINE CULTURE 4. Stage 3 chronic kidney disease, unspecified whether stage 3a or 3b CKD (HCC) - ICD9: 585.3, ICD10: N18.30 - eGFR: Stable - Counseled on avoiding NSAIDs, adequate hydration - CBC - BASIC METABOLIC PNL Prescription instructions reviewed with patient as applicable. Potential red flag symptoms discussed with the patient. Reviewed appropriate action plan to take if red flag symptoms occur. Patient agreeable to treatment plan. Estefani Willard APRN.CNP documented in this encounter[facility]07-13-2023 Miscellaneous Notes* Telephone Encounter - Edna Mosqueda LPN - 08/17/2022 11:59 AM EDT Left message for patient, copy of 1040 should be appropriate for income verification. She may bringthis to the office at her convenience. Edna Mosqueda LPN * Telephone Encounter - Iona Rosas Ma - 08/17/2022 10:54 AM EDT Patient calling and states she got a message from Val regarding patient assistance for her Stiolto. Patient states she has copies of her tax forms and asking if she brings those in if copies can bemade and faxed to the insurance company. documented in this encounterSouthern [facility]07-05-2023 Miscellaneous Notes* Telephone Encounter - JESSIE Chirinos - 08/09/2022 11:58 AM EDT Patient called Kalli back and has her [employer] forms completed for Stiolto inhaler. Sw and patient discussed patient taking forms to [facility] [place] office for inhaler prescription completion on forms. Kalli notes that [facility] can then fax forms to [employer]. Patient notes that she also has pharmacy print out with how much she has spent year to date on medications to attach to [employer] application. documented in this encounterSouthern [facility] Center06-30-2023 History of Present illness Narrative* Mahin Pérez MD - 08/04/2022 1:33 PM EDT FOLLOW UP VISIT - ENDOSCOPY NAME: Saeid Carmela [facility] NO.: [id number] DATE OF SERVICE: 08/04/2022 : 1950 REFERRING PHYSICIAN: Yasemin Connors MD Saeid is a patient I am following for upper abdominal pain. The patient is a 71 year old female referred with a recent visit to the emergency department for upper abdominal pain. The patient presented to [facility] emergency department with a complaint of upper abdominal pain. The patient apparently noted she had been bending over repeatedly for 90 minutes and then noted significant pain in the upper abdominal area. The patient has a prior history of colon cancer in her mid transverse colon. The patient was initially seen by Julia Neumann. The patient noted early satiety weight loss and nausea after eating for approximately 6 months. The patient has a family history of colon cancer. The patient underwent colonoscopy by Dr. Iona Avina which demonstrated a near obstructing lesion inthe mid transverse colon highly suspicious for malignancy which she could not advance the scope beyond. Dr. Avina placed a clip adjacent to the abnormality. Biopsies were obtained but these did not return as positive for malignancy. A CT scan of the abdomen pelvis was obtained on January 19, 2020. This demonstrated: IMPRESSION: Bowel wall thickening and narrowing of the lumen of the transverse colon, concerning for malignancy. No CT evidence of liver mass. No lymphadenopathy in the abdomen and pelvis. Mild dilation of the common bile duct in the setting of cholecystectomy. Fat-containing paraumbilical hernia. My review of the CT scan demonstrated an apple core lesion consistent with colon cancer. The metallic clip was located right next to the spot. The lumen of the area was nearly obstructed. Given the fact that Dr. Avina was unable to advance the scope beyond the area highly suspicious for malignancy and given the size of the lumen on CT scan I asked her to urgently be brought to my office so we can schedule an urgent resection before she obstructs. I performed a laparoscopic right extended hemicolectomy and liver biopsy on January 27, 2020. While there were no other nodules noted in the liver, higher up on the right side of the liver there wasa superficial mass that I biopsied. The patient did well post operatively and was discharged on postoperatively day #3 The pathology demonstrated: FINAL DIAGNOSIS 1. Right colon, terminal ileum, and appendix, extended right hemicolectomy (A): - Adenocarcinoma involving transverse colon and extending into pericolonic soft tissue, margins negative (see synoptic). - Metastatic adenocarcinoma in one lymph node (02/18). 2. Liver, biopsy (B): Metastatic adenocarcinoma, consistent with colorectal origin. SYNOPTIC REPORT OF MAE PATHOLOGIC FINDINGS EXTENDED RIGHT COLON: COLON AND RECTUM:RESECTION, INCLUDING TRANSANAL DISK EXCISION OF RECTAL NEOPLASMS WORKSHEET: Procedure: Right hemicolectomy Tumor Site: Transverse colon Tumor Size: Greatest dimension: 3.5 cm Macroscopic Tumor Perforation: Not identified Macroscopic Intactness of Mesorectum: Not applicable Histologic Type: Adenocarcinoma Histologic Grade: G2: Moderately differentiated Tumor Extension: Tumor invades through the muscularis propria into pericolorectal tissue Margins: All margins are uninvolved by invasive carcinoma, high-grade dysplasia, intramucosal adenocarcinoma, and adenoma Margins examined: proximal, distal, radial, mesenteric Proximal Margin: Uninvolved by invasive carcinoma Distal Margin: Uninvolved by invasive carcinoma Circumferential Radial Margin: Uninvolved by invasive carcinoma Mesenteric Margin: Uninvolved by invasive carcinoma Treatment Effect: No known presurgical therapy Lymphovascular Invasion: Present Perineural Invasion: Present Type of Polyp in which Invasive Carcinoma Arose: Tubular adenoma Tumor Deposits: Not identified Regional Lymph Nodes: Number of nodes involved: 1 Number of nodes examined: 14 Pathologic Stage Classification (pTNM,AJCC 8th ed) TNM Descriptors: Not applicable Pathologic Staging (pTNM): pT3: Tumor invades through the muscularis propria into pericolorectal tissues Regional Lymph Nodes (pN): pN1a: One regional lymph node is positive Distant Metastasis (pM): pM1: Metastasis to one or more distant sites or organs or peritoneal metastasis is identified Saeid notes no complaints at surgery. Post operative pain has been well controlled. The patient denies nausea. The patient`s appetite has been good. I then placed a Port-A-Cath. Dr. Miguel Mccoy then performed a laparoscopic microwave ablation of her liver metastases along with intraoperative ultrasound and transversus abdominis block on April. She has then been getting chemotherapy. She has completed chemotherapy and is referred for follow-up colonoscopy. After discussion the patient also noted symptoms of reflux. I performed upper and lower endoscopy on June 21, 2021. The patient was found to have: Upper endoscopy Impression: - Normal examined jejunum. - Normal examined duodenum. - Gastritis. Biopsied. - Non-severe reflux esophagitis. - Normal middle third of esophagus. Biopsied. Lower endoscopy Impression: - The examined portion of the ileum was normal. - Patent end-to-side ileo-colonic anastomosis, characterized by healthy appearing mucosa. - One 6 mm polyp at the recto-sigmoid colon, removed with a cold snare. Resected and retrieved. Clip (MR conditional) was placed. - Diverticulosis in the left colon. - The examination was otherwise normal on direct and retroflexion views. Pathology demonstrated: FINAL DIAGNOSIS A. Stomach, antrum, biopsy: - Antral type gastric mucosa with changes of chronic inactive gastritis. - An H. pylori immunohistochemical stain will be performed and reported as an addendum. B. Esophagus, distal, biopsy: - Squamous mucosa with no diagnostic abnormalities. - No prominence in eosinophils or lymphocytes and no intestinal metaplasia. C. Esophagus, MID, biopsy: - Squamous mucosa with no diagnostic abnormalities. - No prominence in eosinophils or lymphocytes and no intestinal metaplasia. D. Colon, rectosigmoid polyp, biopsy: - Tubular adenoma. The patient notes occasional epigastric complaints but these are much better since she started Prilosec. She however is nervous given the fact that her colon cancer presented with similar symptoms. The patient had a CT scan of the chest abdomen pelvis on June 26, 2022 in follow- up to her diagnosisof colon cancer with metastases to the liver for which she had undergone ablation of the liver metastases. Results of her abdominal CT scan from this date were: IMPRESSION: Stable cystic lesion in the tail the pancreas. No developing mass or adenopathy. My review of the CT scan compared to previous scans were that there was some thickening in the antrum and likely duodenal region of the stomach. She presented to [facility] emergency department on June 29, 2022. The patient unremarkable laboratory studies. A CT scan of the abdomen pelvis was obtained. This was interpreted as: Stranding in the epigastric area near the colon which might of been interpreted as epiploic appendagitis. 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 The images were requested to be sent to the [facility] system but these are not in our computer as of yet. Since her visit, the patient notes the pain is improved she also notes early satiety. The patient is being seen by me today at the request of Dr. Yasemin Connors MD for my opinion and advice regarding upper abdominal pain. I performed upper endoscopy onJuly 25, 2022. The patient was found to have: Impression: - Normal examined jejunum. - Normal examined duodenum. - Non-bleeding gastric ulcer with no stigmata of bleeding. Biopsied. - Normal gastroesophageal junction. - Non-severe reflux esophagitis with no bleeding. Pathology demonstrated: FINAL DIAGNOSIS A. Antrum, biopsy: - Superficial gastric mucosa with features of erosion and reactive epithelial changes. - No evidence of H. pylori The patient was started on omeprazole. The patient notes good improvement in her epigastric complaints since the procedure. VITALS: There were no vitals taken for this visit. On examination, the abdomen is benign - asymptomatic hernias versus combination of hernias and thinabdominal wall. Assessment IMPRESSION: Gastritis with superficial ulcerations small hiatal hernia and distal esophagitis improved on proton pump inhibitor PLAN: If the patient notes any problems or changes in bowel function, the patient should contact me immediately. Otherwise I recommend follow up endoscopy as needed. Colonoscopy should be repeated in 2024. I discussed with the patient that given her hernias are asymptomatic at this time if they start becoming bothersome or growing then I would consider repairing them at this time given the laxity of her abdominal wall and the atrophy of abdominal musculature I think hernia repair would have a high risk of failure and recurrence. Diagnoses: (K63.89) Epiploic appendagitis (primary encounter diagnosis) (R10.13) Epigastric pain Return to Clinic: The patient is instructed to follow-up with me as needed. Mahin Pérez MD documented in this encounter[facility]06-[facility]23 Miscellaneous Notes* Telephone Encounter - Ita Cortez LPN - 07/31/2022 1:07 PM EDT Pt notified of lab orders. Ita Cortez LPN * Telephone Encounter - Steven Raza Ma - 07/31/2022 12:57 PM EDT Left message to call office. 07/31/2022 12:58 PM * Telephone Encounter - Estefani Willard APRN.MARGO - 07/31/2022 12:28 PM EDT Order placed. Please let patient know. Thank you Estefani Willard APRN.MARGO * Telephone Encounter - Irene Rey LPN - 07/28/2022 3:19 PM EDT Pt. is having burning with urination and a strong smell x 2 days. She would like order sent to lab.Please advise. documented in this encounterSouthern [facility] Center06-20-2023 Miscellaneous Notes* Telephone Encounter - Ana Miller RN - 07/25/2022 9:33 AM EDT 2nd request sent to [facility] to have images pushed into [place] from CT on 06/29.Ana Miller RN documented in this encounterSouthern [facility] Center06-02-2023 Miscellaneous Notes* Telephone Encounter - Mayra Paredes LPN - 07/07/2022 4:22 PM EDT Order for diabetic shoes were faxed to number provided below. Patient notified. Mayra Paredes LPN * Telephone Encounter - Mayra Paredes LPN - 07/07/2022 4:21 PM EDT Images from the original note were not included. Patricia Deluca [facility] Podiatry Pool 16 minutes ago (4:05 PM) Order for diabetic shoes made Patricia Deluca DPM * Telephone Encounter - Julia Sosa RN - 07/06/2022 2:14 PM EDT Last order was 12/08/2021 for diabetic shoes. * Telephone Encounter - Edna Moss LPN - 07/06/2022 2:05 PM EDT Patient called and needs a new order for diabetic shoes, faxed to [employer]. Patient stated previous order . Please review and advise. Thank you. attn: Paola Moss LPN documented in this encounterSouthern [facility] Center05-12-2023 History of Present illness Narrative* Yasemin Connors MD - 06/16/2022 2:07 PM EDT Reason for Visit Patient presents with: F/U 6 months: refills Saeid Urbina is a 71 year old female who presents here today for Above Complaints.. Health Maintenance ALPHA-1 ANTITRYPSIN DEFICIENCY SCREENING COVID-19 VACCINE(5 - Booster) DILATED RETINAL EXAM HPI Double vision has resolved after 7 weeks symptoms. One of the issues today is itchy rash on neck and sore mouth.She broke out in an itchy rash the back of the neck a couple week ago. Moisturizers were not helping. She had no new soaps, shampoo, or medication. The only change was that she increased her dose of norvasc. Diabetes was controlled. Last week did get to see Dr Sun, gave her clotrimazole troches for possible fungal infections. The troches made her have more itching in the face, so she stopped them , the issues have resolved since. She was also given some steroid creme which did not help her much She had a repeat cpap test and she does not need one anymore No problem-specific Assessment & Plan notes found for this encounter. PAST MEDICAL HISTORY Diagnosis Date Benign neoplasm of colon Benign polyps. 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 Lumpectomy, completed radiation 06/27/10. No chemotherapy. Myalgia and myositis, unspecified Obesity, unspecified Obesity Obstructive sleep apnea syndrome 05/24/2015 No longer needs CPAP Pain in joint of right shoulder 09/03/2014 Plantar fascial fibromatosis Seborrheic dermatitis, unspecified Shortness of breath Type II or unspecified type diabetes mellitus without mention of complication, not stated as uncontrolled Unspecified hemorrhoids without mention of complication Hemorrhoids Urinary incontinence overactive bladder PAST SURGICAL HISTORY Procedure Laterality Date ADENOIDECTOMY PRIMARY <AGE 10 age 3 Adenoidectomy BX BREAST PERC NEED W/GUID 02/11/2010 U/S Needle core UOQ right breast bx BX/EXC LYMPH NODE OPEN DEEP AXILLARY NODE 03/16/[address] [facility] [address] Dung Mayo CATH IMPL VASC ACCESS PORTAL 03/03/2020 DELIVERY ONLY , low cervical x4 CHOLECYSTECTOMY 01/11/1981 Cholecystectomy COLONOSCOPY 06/21/2021 , repeat in 3 years COLONOSCOPY FLX DX W/COLLJ SPEC WHEN PFRMD 08/30/2001 Colonoscopy COLONOSCOPY FLX DX W/COLLJ SPEC WHEN PFRMD 07/17/2012 Colonoscopy COLONOSCOPY FLX DX W/COLLJ SPEC WHEN PFRMD 12/02/2015 Colonoscopy (Needs MAC next time) COLONOSCOPY GEN ANES 01/16/2020 COLONOSCOPY W/BIOPSY SINGLE/MULTIPLE 06/01/2006 EGD 01/16/2020 EGD FLEX REMOVAL LESION(S) BY HOT BIOPSY FORCEPS 08/30/2001 EGD TRANSORAL BIOPSY SINGLE/MULTIPLE 06/01/2006 EGD TRANSORAL BIOPSY SINGLE/MULTIPLE 12/23/2009 EGD W/O BRSH SPEC VARICIES INJ 06/21/2021 ESOPHAGOGASTRODUODENOSCOPY TRANSORAL DIAGNOSTIC 12/02/2015 EGD IMAGING GUIDED RADIOFREQUENCY LIVER ABLATION 04/2020 ablation IR RADIO FREQUENCY ABLATION 11/2017 LAPAROSCOPIC HEMICOLECTOMY 01/26/2020 LIG/TRNSXJ FLP TUBE ABDL/VAG APPR UNI/BI Tubal ligation MASTECTOMY, PARTIAL 03/16/[address] [facility] [address] Dung Mayo PREOP PLACEMENT NEEDLE LOC 03/16/2010 U/S wire loc UOQ right breast PULMONARY FUNCTION TEST 05/22/2005 SIGMOIDOSCOPY FLX DX W/COLLJ SPEC BR/WA IF PFRMD 04/06/1999 Sigmoidoscopy, flexible TONSILLECTOMY PRIMARY/SECONDARY <AGE 10 age 3 Tonsillectomy FAMILY HISTORY Problem Relation Age of Onset Diabetes Mother Colon Cancer Mother PASSED FROM THIS AT THE AGE OF 62 Heart Father HAD AN [place] IN MID TO LATE 50s, FROM THIS. other (Other) Sister MVA No Known Problems Sister Hypertension Sister Systemic Lupus Erythematosus Sister other (RHUMATOID ARTHRITIS) Sister SAME SISTER HYPERTENSION Cancer Brother Lymphoma. Cancer free for 10 years. Coronary Artery Disease Brother Stent other (Episodes of numbness) Brother having dx testing Colon Cancer Brother Bipolar disorder Daughter Arthritis Daughter Psoriactic other (Epilepsy) Daughter other (cerebral spinal fluid leak) Son other (colitis) Son Autism Grandchild Asthma No Family History Emphysema No Family History Blood Clots No Family History No PE. Social History Tobacco Use Smoking status: Never Smokeless tobacco: Never Tobacco comments: Household ETS for 50 years. Vaping Use Vaping Use: Never used Substance Use Topics Alcohol use: No Drug use: No Past medical history, appointments, medications, allergies reviewed. Pertinent Lab/Diagnostic Studies are reviewed and discussed today Current Outpatient Medications: aspirin, enteric coated (ASPIRIN, ENTERIC COATED) 81 mg EC tablet clotrimazole (MYCELEX) 10 mg mark mometasone (ELOCON) 0.1 % cream tiotropium 2.5 mcg-olodateroL 2.5 mcg/actuation mist for inhalation (STIOLTO RESPIMAT) metoprolol succinate ER (TOPROL XL) 50 mg 24 hr tablet ondansetron orally disintegrating (ZOFRAN ODT) 4 mg disintegrating tablet diphenhydrAMINE (BENADRYL) 25 mg capsule acetaminophen (TYLENOL) 500 mg tablet Lancets lancets blood sugar diagnostic (EnerkemUCH ULTRA TEST) test strip magnesium oxide (MAG-OX) 400 mg (241.3 mg magnesium) tablet omeprazole (PRILOSEC) 40 mg capsule insulin lispro (HUMALOG KWIKPEN INSULIN) 100 unit/mL diclofenac (VOLTAREN ARTHRITIS PAIN) 1 % topical gel promethazine (PHENERGAN) 25 mg tablet metFORMIN ER (GLUCOPHAGE XR) 500 mg 24 hr tablet valsartan (DIOVAN) 160 mg tablet furosemide (LASIX) 20 mg tablet amLODIPine (NORVASC) 10 mg tablet insulin needles, DISPOSABLE, (PEN NEEDLE) 31 gauge x 5/16" lancets (ONE TOUCH DELICA) 33 gauge loperamide HCl (IMODIUM A-D ORAL) lidocaine-prilocaine (EMLA) 2.5-2.5 % cream Fenofibrate (LOFIBRA) 54 mg tablet hydrOXYchloroQUINE (PLAQUENIL) 200 mg tablet Diclofenac Sodium (SOLARAZE) 3 % gel [place]-3 Fatty Acids 500 mg cap morphine SR (MS CONTIN, ORAMORPH SR) 15 mg 12 hr tablet cyanocobalamin (VITAMIN B-12) 1,000 mcg tab FOLIC ACID 800 MCG TAB Review of Systems CONSTITUTIONAL: No fevers, chills night sweats, unintended weight loss CARDIOVASCULAR: No chest pain, dyspnea, palpitations, orthopnea, PND, ankle edema. PULM: No dyspnea, unexplained cough. GI: No dysphagia/odynophagia, problematic reflux, constipation, diarrhea, changes in stool habits, hematochezia, melena. : No new urinary complaints, including dysuria, gross hematuria or pyuria. NEURO: No new balance problems, peripheral weakness/paresthesias or numbness of concern. Physical Exam BP 140/80 (BP Site: Left Arm, BP Position: Sitting, BP Cuff Size: Large Adult) Pulse 78 Temp 37.5 C (99.5 F) Resp 14 Ht 152.4 cm (5') Wt 95.7 kg (211 lb) SpO2 95% BMI 41.21 kg/m General appearance: Well appearing, alert, in no acute distress, well nourished. Skin: a couple open lesion on the neck that look like burst impetigo with no signs of infection around it. Head: Normocephalic, no masses, lesions, tenderness or abnormalities Eyes: Anicteric sclera. Pupils are equally round and reactive to light. Extraocular movements are intact. Lungs: Lungs clear to auscultation. No wheezing, rhonchi, rales Heart: RRR without murmur, gallop, or rubs. Extremities: No deformities, edema, skin discoloration, clubbing or cyanosis. Good capillary refill. ASSESSMENT/PLAN: 1. 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) - ICD9: 250.60, 357.2,ICD10: E11.42 (primary diagnosis) - Controlled - Continue current medications - BASIC METABOLIC PNL - HGB A1C - COMP METABOLIC PANEL - CBC - TSH BLD - LIPID PANEL BASIC 2. Hypertension goal BP (blood pressure) < 150/90 - ICD9: 401.9, ICD10: I10 - good control - Recommended regular aerobic exercise. - Recommend home blood pressure monitoring, to bring results in on next visit - Goal of BP <130/80 - VALSARTAN 160 MG TABLET 3. Rash - ICD9: 782.1, ICD10: R21 - CONSULT TO DERMATOLOGY 4. Stage 3 chronic kidney disease, unspecified whether stage 3a or 3b CKD (HCC) - ICD9: 585.3, ICD10: N18.30 CKD: Stage 3, recent labs reviewed, shows GFR is stable, not significantly changed from previous labs. Discussed the importance of staying off the NSAIDs naproxen, motrin, brufen, aleve etc and contrast., adequate hydration Keeping blood pressure under control. 5. Hypercalcemia - ICD9: 275.42, ICD10: E83.52 Recheck bmp Yasemin Connors MD documented in this encounterSouthern [facility]05-08-2023 Miscellaneous Notes* Letter - Mammography Coordinator - 06/12/2022 8:45 AM EDT June 13, 2022 PID: [id number] Saeid Urbina [address] [address] Dear Ms. Urbina, We are pleased to inform you that the results of your recent breast imaging exam on 06/09/2022 are normal. Your mammogram demonstrates that you have dense breast tissue, which could hide abnormalities. Dense breast tissue, in and of itself, is a relatively common condition. Therefore, this information is not provided to cause undue concern; rather, it is to raise your awareness and promote discussion with your health care provider regarding the presence of dense breast tissue in addition to other riskfactors. Early detection of cancer is very important. We also understand recommendations regarding breast cancer screening are controversial. Please discuss with your primary care provider which strategy is best for you and whether a mammogram is right for you. Your imaging studies and report will be kept on file at [facility] as part of your permanent medical record and are available for your continuing care. Thank you for allowing us to help in meeting your health care needs. Sincerely, Dr. Cifuentes Interpreting Radiologist [facility] (Normal over 40) documented in this encounterSouthern [facility] Medical Center05-05-2023 History of Present illness Narrative* Ollie Johnson MD - 06/09/2022 10:58 AM EDT This note was created using [employer]. Subjective Saeid Urbina is a 71 year old female. She's had recurrent soreness of her tongue and month for a few months. Gargles were not helpful. She broke out in an itchy rash the back of the neck one week ago. Moisturizers were not helping. She had no new soaps, shampoo, or medication. Diabetes was controlled. Review of Systems Constitutional: Negative for fever. HENT: Negative for sore throat and trouble swallowing. Respiratory: Negative for shortness of breath. ACTIVE PROBLEM LIST Hypertension Goal Bp (Blood Pressure) < 150/90 Dysmetabolic Syndrome X Hypercalcemia Ra (Rheumatoid Arthritis) (Hcc) Ckd (Chronic Kidney Disease) Stage 3, Gfr 30-59 Ml/Min (Hcc) Esophageal Reflux History of Breast Cancer Bilateral Renal Cysts Type 2 Diabetes Mellitus With Diabetic Neuropathy, With Long-Term Current Use of Insulin (Hcc) Thickened Endometrium Type 2 Diabetes Mellitus With Stage 3 Chronic Kidney Disease, With Long-Term Current Use of Insulin(Hcc) Cancer of Transverse Colon (Hcc) Status Post Right Hemicolectomy Chronic Diastolic Chf (Congestive Heart Failure) (Hcc) Chronic Pain Syndrome Liver Metastases Iron Deficiency Anemia Due to Chronic Blood Loss 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 metoprolol succinate ER (TOPROL XL) 50 mg 24 hr tablet Take 1 tablet by mouth once daily. ondansetron orally disintegrating (ZOFRAN ODT) 4 mg disintegrating tablet Take 1 tablet by mouth every 6 hours as needed for nausea/vomiting. diphenhydrAMINE (BENADRYL) 25 mg capsule Take 25 mg by mouth every 6 hours as needed. acetaminophen (TYLENOL) 500 mg tablet Take 500 mg by mouth every 8 hours as needed. Lancets lancets Test blood sugar(s) 4 times daily. Dx: Type 2 DM - Uncontrolled E11.65 Insulin: Yes blood sugar diagnostic (N-of-OneTOUCH ULTRA TEST) test strip TEST ONCE DAILY magnesium oxide (MAG-OX) 400 mg (241.3 mg magnesium) tablet Take 1 tablet by mouth once daily. omeprazole (PRILOSEC) 40 mg capsule Take 1 capsule by mouth once daily insulin lispro (HUMALOG KWIKPEN INSULIN) 100 unit/mL Sliding scale during chemotherapy for glucose readings with meals 151 - 200 2 units 201 - 250 4 units 251 - 300 6 units 301 - 350 8 units 351-400 10 units >400 contact office diclofenac (VOLTAREN ARTHRITIS PAIN) 1 % topical gel Apply 2 g to affected area once daily. promethazine (PHENERGAN) 25 mg tablet Take 1 tablet by mouth every 6 hours as needed (For chemotherapy induced nausea). FOR NAUSEA metFORMIN ER (GLUCOPHAGE XR) 500 mg 24 hr tablet TAKE 2 TABLETS DAILY WITH BREAKFAST valsartan (DIOVAN) 160 mg tablet Take 1 tablet by mouth once daily. furosemide (LASIX) 20 mg tablet Take 0.5 tablets by mouth once daily. amLODIPine (NORVASC) 10 mg tablet Take 1 tablet by mouth once daily. insulin needles, DISPOSABLE, (PEN NEEDLE) 31 gauge x 5/16" Use one needle per dose. 3 per day. lancets (ONE TOUCH DELICA) 33 gauge Test blood sugar(s) 1 daily. Dx: Type 2 DM - Controlled E11.9 Insulin: No loperamide HCl (IMODIUM A-D ORAL) Take by mouth. Prn lidocaine-prilocaine (EMLA) 2.5-2.5 % cream Apple to port site 60 minutes prior to accessing Fenofibrate (LOFIBRA) 54 mg tablet Take 54 mg by mouth once daily. hydrOXYchloroQUINE (PLAQUENIL) 200 mg tablet Take 200 mg by mouth once daily. Diclofenac Sodium (SOLARAZE) 3 % gel Apply to affected area three times daily as needed. [place]-3 Fatty Acids 500 mg cap Take 1 capsule by mouth once daily. morphine SR (MS CONTIN, ORAMORPH SR) 15 mg 12 hr tablet Take 15 mg by mouth every 8 hours as needed. cyanocobalamin (VITAMIN B-12) 1,000 mcg tab Take 1,000 mcg by mouth once daily. FOLIC ACID 800 MCG TAB Take by mouth once daily. aspirin, enteric coated (ASPIRIN, ENTERIC COATED) 81 mg EC tablet Take 1 tablet by mouth once daily. clotrimazole (MYCELEX) 10 mg mark Use 1 Mark as instructed four times daily for 7 days. mometasone (ELOCON) 0.1 % cream Apply to affected area once daily for 14 days. No current facility-administered medications for this visit. Objective BP (P) 124/68 (BP Site: Left Arm, BP Position: Sitting, BP Cuff Size: Large Adult) Pulse (P) 78 Wt (P) 96.6 kg (213 lb) BMI (P) 41.60 kg/m Physical Exam Constitutional: General: She is not in acute distress. HENT: Nose: Nose normal. Mouth/Throat: Mouth: Mucous membranes are moist. Oral lesions present. Tongue: No lesions. Pharynx: Oropharynx is clear. Comments: White plaques in oral mucosa. Skin: Comments: Erythematous, eczematoid patch along the posterior hairline back of the neck. No drainage. Neurological: Mental Status: She is alert. Assessment and Plan 1. Thrush - ICD9: 112.0, ICD10: B37.0 (primary diagnosis) - CLOTRIMAZOLE 10 MG MARK 2. Localized dermatitis - ICD9: 692.9, ICD10: L30.9 - discussed skin care of rash - follow up if symptoms persist or worsen. - MOMETASONE 0.1 % TOPICAL CREAM Ollie Johnson MD documented in this encounterSouthern [facility]05-05-2023 Miscellaneous Notes* Telephone Encounter - Iban Bradley RN - 06/09/2022 8:42 AM EDT Reason for Call: Rash / tongue pain. Outcome: Conferenced to the Appointment Center for scheduling. Reason for Disposition Localized rash present > 7 days Answer Assessment - Initial Assessment Questions 1. APPEARANCE of RASH: Unable to visualize it. Feels like "welts". 2. LOCATION: Posterior neck 3. NUMBER: N/A 4. SIZE: NA 5. ONSET: Week or so 6. ITCHING: Yes 05/15 7. PAIN: Tongue "better this morning now" last night 1010 pain today 08/14. States tongue pain has been on/off for a few months, mentions seeing a provider about this. More recently has been "really bad" and will not let up. 8. OTHER SYMPTOMS: Left leg swelling but not a new symptom. Itching can occur to the arms and forehead, intermittent. Has been using peroxide wash for the mouth. DENIES facial swelling or lips swelling, states the inside feels like it could be. States able to swallow, denies difficulty breathing. Mentions Norvasc dosage changes, unsure if related. 9. : N/A Protocols used: Rash or Redness - [id number] documented in this encounterSouthern [facility] Center04-04-2023 Miscellaneous Notes* Telephone Encounter - Mayra Paredes LPN - 05/09/2022 11:21 AM EDT Physician: Shantell lorenzana Call from patient requesting refill. Please E-Scribe Requested Prescriptions Pending Prescriptions Disp Refills tiotropium 2.5 mcg-olodateroL 2.5 mcg/actuation mist for inhalation (STIOLTO RESPIMAT) 4 g 5 Sig: Inhale 2 Puffs as instructed once daily. Pharmacy Name: [facility] Phone #: [phone] Mayra Paredes LPN documented in this encounterSouthern [facility] Center03-30-2023 Miscellaneous Notes* Telephone Encounter - Rina Holm RN - 05/04/2022 5:03 PM EDT Patient informed of Dr. Vallejo's response, stated understanding. Rina Holm RN * Telephone Encounter - Jerry Vallejo DO - 05/04/2022 4:57 PM EDT Yes, okay for her to take ASA. Jerry Vallejo DO * Telephone Encounter - Cara Branch Pss - 05/04/2022 1:15 PM EDT Patient called stating she had recently seen Neurology, [facility] and due to some issues she is having they suggested she contact the office to see if it is okay for her to start back on low dose aspirin. Please advise. documented in this encounterSouthern [facility] Center03-24-2023 Instructions* Patient Instructions* Paola Gonzáles PA-C - 04/28/2022 2:33 PM EDT Follow with up with eye doctor next week Follow up in 3 months GO to the ER should you have any worsening vision, facial weakness, slurred speech, weakness documented in this encounterSouthern [facility] Center03-24-2023 History of Present illness Narrative* Paola Gonzáles PA-C - 04/28/2022 1:55 PM EDT Images from the original note were not included. Neurology Outpatient Clinic Date: April 28, 2022 Patient Name: Saeid Urbina Primary physician: [place] [address] Reason for Evaluation: Hospital follow up Subjective HPI * patient did show up 15 mintues late for appointment. Saeid Urbina is a 71 year old right-handed female with history of diabetes mellitus, chronic pain, HTN, CHF, CKD stage 3, breast cancer, colon cancer with mets to liver, RA who presents for evaluation of hospital follow up. Dr. Yasemin Connors MD is the PCP. Chart review: Patient admitted for double vision on 04/07/22 with course as follows, "HOSPITAL COURSE: Saeid Urbina is a 71 year old female presented with past medical history of hypertension, rheumatoid arthritis, CKD stage III, history of breast cancer, type 2 diabetes, 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 Patient has a history of chronic headaches associated with nausea. Earlier this week patient developed a headache over the left eye which is typical of her headaches associated with nausea. She then developed a headache again on ay evening that at this time is associated with double vision. Patient was seen by her PCP who recommended she come to the ED for an MRI." Patient has seen eye doctor since visit per PCP note, has been monitored closely. 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 Dr. Garrido wanted blood work done. EEG was done one week ago at [facility], records not sent. Patient reports that she has been doing well since she was discharged from the hospital. She describes the event as waking up with double vision, that resolved with covering 1 eye. The day prior to her admission, she felt mildly dizzy and had difficulty focusing her eyes, dizziness was attributed to her eye symptoms. She denies any strokelike symptoms associated with the double vision including slurred speech, facial droop, ptosis, weakness, numbness and tingling, gait change. 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 As many causes were ruled out, most likely cause was secondary to her longstanding diabetes as well as hypertension. Patient without any signs of papilledema from dilated eye exam with eye doctor as well as imaging. Patient also notes that she has had headaches since around the first of the year, states that her eye doctor told her this was likely secondary to her cranial nerve palsy. She notes that she has been having he adaches still, but notes significant improvement after wearing an eye patch. She does believe that these headaches are secondary to her double vision. She has been taking Tylenol and Benadryl as needed for this with significant benefit. Her headaches are noted to be slightly better with darkness, no consistent vertigo, nausea, vomiting, photophobia. Patient also notes that when she had double vision, she notes that she saw colors and shapes. She mentioned this to her eye doctor, who states thatthis was normal and secondary to her double vision. She notes that this is significantly improved since wearing the eye patch, notes that this only occurred a few times since. Patient notes that she has a chronically unstable gait secondary to bilateral knee pain, walks witha walker. This gait has been unchanged. No history of stroke, heart attack, or blood clots. Patientdoes have a history of breast cancer, colon cancer with metastatic disease to the liver. Patient was not told to take an aspirin, notes that her oncologist told her to not take aspirin secondary to bleed that she had on her liver. Labs/Imaging CTA head and neck IMPRESSION: 1. Age expected head CT without any acute intracranial disease. 2. V3 vertebral artery mild changes of uncomplicated fibromuscular dysplasia. 3. Otherwise patent extracranial and intracranial CTA circulation. Arterial blood flow was measured to detect acute large vessel occlusion by computer aided detection software: Not performed. MRI brain IMPRESSION: Age-appropriate brain without acute intracranial abnormality Medications: Current Outpatient Medications Medication Sig Dispense Refill metoprolol succinate ER (TOPROL XL) 50 mg 24 hr tablet Take 1 tablet by mouth once daily. 90 tablet3 ondansetron orally disintegrating (ZOFRAN ODT) 4 mg disintegrating tablet Take 1 tablet by mouth every 6 hours as needed for nausea/vomiting. 30 tablet 1 diphenhydrAMINE (BENADRYL) 25 mg capsule Take 25 mg by mouth every 6 hours as needed. acetaminophen (TYLENOL) 500 mg tablet Take 500 mg by mouth every 8 hours as needed. Lancets lancets Test blood sugar(s) 4 times daily. Dx: Type 2 DM - Uncontrolled E11.65 Insulin: Tww325 Each 11 blood sugar diagnostic (ONETOUCH ULTRA TEST) test strip TEST ONCE DAILY 100 Strip 3 magnesium oxide (MAG-OX) 400 mg (241.3 mg magnesium) tablet Take 1 tablet by mouth once daily. 90 tablet 3 omeprazole (PRILOSEC) 40 mg capsule Take 1 capsule by mouth once daily 30 capsule 5 insulin lispro (HUMALOG KWIKPEN INSULIN) 100 unit/mL Sliding scale during chemotherapy for glucose readings with meals 151 - 200 2 units 201 - 250 4 units 251 - 300 6 units 301 - 350 8 units 351-400 10 units >400 contact office 5 Each 0 diclofenac (VOLTAREN ARTHRITIS PAIN) 1 % topical gel Apply 2 g to affected area once daily. 200 g 11 promethazine (PHENERGAN) 25 mg tablet Take 1 tablet by mouth every 6 hours as needed (For chemotherapy induced nausea). FOR NAUSEA 30 tablet 2 metFORMIN ER (GLUCOPHAGE XR) 500 mg 24 hr tablet TAKE 2 TABLETS DAILY WITH BREAKFAST 180 tablet 3 valsartan (DIOVAN) 160 mg tablet Take 1 tablet by mouth once daily. 90 tablet 3 furosemide (LASIX) 20 mg tablet Take 0.5 tablets by mouth once daily. 90 tablet 3 amLODIPine (NORVASC) 10 mg tablet Take 1 tablet by mouth once daily. 90 tablet 3 insulin needles, DISPOSABLE, (PEN NEEDLE) 31 gauge x 5/16" Use one needle per dose. 3 per day. 100 Each 11 tiotropium 2.5 mcg-olodateroL 2.5 mcg/actuation mist for inhalation (STIOLTO RESPIMAT) Inhale 2 Puffs as instructed once daily. 4 g 5 lancets (ONE TOUCH DELICA) 33 gauge Test blood sugar(s) 1 daily. Dx: Type 2 DM - Controlled E11.9 Insulin: No 100 Each 3 lidocaine-prilocaine (EMLA) 2.5-2.5 % cream Apple to port site 60 minutes prior to accessing 15 g 2 Fenofibrate (LOFIBRA) 54 mg tablet Take 54 mg by mouth once daily. hydrOXYchloroQUINE (PLAQUENIL) 200 mg tablet Take 200 mg by mouth once daily. Diclofenac Sodium (SOLARAZE) 3 % gel Apply to affected area three times daily as needed. [place]-3 Fatty Acids 500 mg cap Take 1 capsule by mouth once daily. morphine SR (MS CONTIN, ORAMORPH SR) 15 mg 12 hr tablet Take 15 mg by mouth every 8 hours as needed. cyanocobalamin (VITAMIN B-12) 1,000 mcg tab Take 1,000 mcg by mouth once daily. iv contrast (will be provided with radiology test) CT Chest W -Inject, intravenously, once for 1 dose.No IV access, insert saline lock prior to the beginning of sedation, infusion, injection of imaging exam. Discontinue saline lock post exam. If Pt. has a central line or IVAD, may access for administration according to line specific nursing protocol. Once exam is complete flush line and de-accessaccording to line specific nursing protocol in the CT contrast administration guidelines link. (Patient not taking: Reported on 04/28/2022) 1 Each 0 iv contrast (will be provided with radiology test) CT ABD/PEL -Inject, intravenously, once for 1 dose.No IV access, insert saline lock prior to the beginning of sedation, infusion, injection of imaging exam. Discontinue saline lock post exam. If Pt. has a central line or IVAD, may access for administration according to line specific nursing protocol. Once exam is complete flush line and de-accessaccording to line specific nursing protocol in the CT contrast administration guidelines link. (Patient not taking: Reported on 12/08/2021) 1 Each 0 enteric contrast (will be provided with radiology test) For CT ABD/PEL W IVCON Routine order Administer, As Directed One Time Only, via Oral, Rectal, both Oral and Rectal, Enteric Tube, Stoma or Indwelling Catheter, Enteric Contrast as designated per enteric contrast guidelines (Patient not taking:No sig reported) 1 Each 0 loperamide HCl (IMODIUM A-D ORAL) Take by mouth. Prn FOLIC ACID 800 MCG TAB Take by mouth once daily. 0 No current facility-administered medications for this visit. ROS ROS: Her ROS was positive for that mentioned in the HPI. Otherwise a 10-point ROS was completed andwas negative. ALLERGIES Allergen Reactions Ciprofloxacin Hives Claritin [Loratadin* Intolerance Dicyclomine Other: See Comments, Unknown E-Mycin [Erythromyc* GI Upset, Itching Gemtesa [Vibegron] Swelling Facial swelling Myrbetriq [Mirabegr* Swelling Naproxen Swelling Feet swelled in 2 days Oruvail [Ketoprofen] Rash Relafen [Nabumetone] swelling Statin [Other] Intolerance joint pain Past Medical History: PAST MEDICAL HISTORY Diagnosis Date Benign neoplasm of colon Benign polyps. Colon cancer (HCC) 2019 Diaphragmatic hernia without mention of obstruction or gangrene Esophageal reflux Essential hypertension, benign Generalized osteoarthrosis, involving hand knees, hips Kidney disease CKDIII Lung nodule Malignant neoplasm of upper-outer quadrant of female breast (HCC) 2011 Right. Lumpectomy, completed radiation 06/27/10. No chemotherapy. Myalgia and myositis, unspecified Obesity, unspecified Obesity Obstructive sleep apnea syndrome 05/24/2015 No longer needs CPAP Pain in joint of right shoulder 09/03/2014 Plantar fascial fibromatosis Seborrheic dermatitis, unspecified Shortness of breath Type II or unspecified type diabetes mellitus without mention of complication, not stated as uncontrolled Unspecified hemorrhoids without mention of complication Hemorrhoids Urinary incontinence overactive bladder Family History: FAMILY HISTORY Problem Relation Age of Onset Diabetes Mother Colon Cancer Mother PASSED FROM THIS AT THE AGE OF 62 Heart Father HAD AN [place] IN MID TO LATE 50s, FROM THIS. other (Other) Sister MVA No Known Problems Sister Hypertension Sister Systemic Lupus Erythematosus Sister other (RHUMATOID ARTHRITIS) Sister SAME SISTER HYPERTENSION Cancer Brother Lymphoma. Cancer free for 10 years. Coronary Artery Disease Brother Stent other (Episodes of numbness) Brother having dx testing Colon Cancer Brother Bipolar disorder Daughter Arthritis Daughter Psoriactic other (Epilepsy) Daughter other (cerebral spinal fluid leak) Son other (colitis) Son Autism Grandchild Asthma No Family History Emphysema No Family History Blood Clots No Family History No PE. Social History: Social History Tobacco Use Smoking status: Never Smokeless tobacco: Never Tobacco comments: Household ETS for 50 years. Vaping Use Vaping Use: Never used Substance Use Topics Alcohol use: No Drug use: No Objective 04/28/22 1356 BP: 123/74 Pulse: (!) 59 Resp: 18 Temp: 36.7 C (98 F) SpO2: 96% Weight: 97.5 kg (215 lb) Physical Examination General Appearance: Well appearing, alert, in no acute distress, well-hydrated, well nourished. Head: Normocephalic Pulm: Breathing comfortably Neck: Supple Psych: Cooperative, appropriate affect Neurological Examination: Mental Status: Alert and Oriented to Place, Person, Time and Situation and Patient follows commands.. Language: Is intact to Comprehension, Fluency and Repetition Cranial Nerves: CNII: Double vision noted (resolved when closing one eye), saw double in left upper field CNIII, IV, : Pupils equal, round and reactive to light, without nystagmus. Cranial nerve 6 palsy to the left. CN V: Facial sensation intact bilaterally to fine touch CN VII: Facial muscles symmetric and strong, NO PTOSIS CN VIII: Hears finger rub well bilaterally CN IX: Gag Reflex not examined CN X: Palate elevates symmetrically CN XI: Full strength shoulder shrug bilaterally CN XII: Tongue protrusion full and midline Non-Dilated Fundiscopic Examination: No papilledema, limited Motor Exam: Tone - Normal Tone noted in all extremities Bulk - Normal bulk noted in all muscles tested. Inspection - Normal, no fasciculations or tremors noted. Power: MUSCLES Upper Extremity RIGHT LEFT Deltoid 5/5 5/5 Biceps 5/5 5/5 Triceps 5/5 5/5 Wrist Extension 5/5 5/5 Wrist Flexion 5/ 5/5 Finger Flexion 5/ 5/5 Finger Extension 5/ 5/5 Finger Abd 5/5 5/5 Finger Add / 5/5 MUSCLES Lower Extremity RIGHT LEFT Hip Flexion 5/5 5/5 Hip Extension /5 5/5 BiFem (Knee Flex) / 5/5 Quads (Knee Ext) 06/09 5/5 Gastroc (Plantflx) / 5/5 TibAnt (Dorsiflx) 06/09 5/5 FlxHLong (Toe Flex) 06/09 5 ExtHLong (Toe Ext) 06/09 55 Sensory Examination Sensation is intact to light touch Reflexes: 1/2 throughout Coordination: finger-to- nose-finger intact bilaterally and [id number] intact bilaterally. Gait: Patient's gait is slow and limp secondary to bilateral knee pain Romberg: Negative DATA REVIEWED Actual films/image/tracing reviewed and summarized as follows: MRI brain, CTA head and neck Old records reviewed and summarized as follows: Hospital admission, PCP Assessment/Plan Assessment & Plan: Saeid Urbina is a 71 year old right-handed female with a history of diabetes mellitus, chronic pain, HTN, CHF, CKD stage 3, breast cancer, colon cancer with mets to liver, RA. Her examination demonstrates cranial nerve 6 palsy of the left with vision field deficits to the left upper visual field. Patient with sudden onset double vision when she woke up on 04-07-2022. MRI was without any abnormality, CTA head and neck without any abnormality or cause of her symptoms. Patient followed up with [facility] doctor following discharge from the hospital, Dr. Garrido. She states he told her that this wasdefinitively cranial nerve palsy of the left eye, she was given an eye patch with close follow-up. Patient also with myasthenia gravis labs that were without any abnormality. EEG obtained as an outpatient did not show any abnormalities. Clear palsy of the 6th cranial nerve on the left was visualized on exam with left upper visual field deficit. Patient without any other signs or symptoms of a s troke at this time, but does have significant cancer history in the past. At this time will monitor, discussed that this will likely take 4 to 6 months on average to return to baseline. Should patient not fully recover, will consider LP in the future to rule out any other cause including cancerous,infectious, increased intracranial pressure. Patient without any signs of papilledema with dilated exam from eye doctor, no signs of increased intracranial pressure on MRI with and without contrast. Patient otherwise doing well, encouraged to continue close follow-up with her eye doctor Dr. Garrido. Strict instructions were given to patient and daughter to go to the emergency department should she experience any red flag signs or symptoms including but not limited to any worsening vision, facial weakness, slurred speech, weakness, or any other strokelike symptoms. Patient and daughter agree and acknowledged this. Patient to follow-up in 3 months or sooner should any symptoms change or worsen. Patient and daughter agreeable to treatment plan of care at this time. Saeid was seen today for follow up. Diagnoses and all orders for this visit: Left abducens nerve palsy She should return to see me in 3 months. I spent a total of 50 minutes on the date of the service which included preparing to see the patient, [id number] patient care, completing clinical documentation, obtaining and/or reviewing separately obtained history, performing a medically appropriate examination, and counseling and educating the patient/family/caregiver. Paola Gonzáles PA-C [facility] Neu[facility] This document has been created with the use of voice recognition technology. It may contain inaccuracies: (e.g. misspellings, inaccurate syntax or word sense) that have escaped review. documented in this encounterSouthern [facility] Center03-23-2023 Miscellaneous Notes* Telephone Encounter - RIAZ Hollis - 04/27/2022 11:26 AM EDT SOCIAL WORK DISTRESS ASSESSMENT Referral made due to: Recent PHQ results Contact was made: By telephone call with patient Problems Addressed: Practical: N/A Family: N/A Emotional: N/A Spiritual Concerns: N/A Physical Problems: Pt reports she has had an "eventful few weeks" reporting she was experiencing double vision and spent a couple days in [facility] to rule out potential stroke. After discharge, pt saw her e commerce web developer who diagnosed Nerve Palsy. The following weekend pt reports she was in the ED and diagnosed with C-Diff. She reports her youngest daughter lives with her and has been an immense help to her. Saeid reports she just finished her 10 days of antibiotics and is "on the mend." She reports she sees her e commerce web developer every 2 weeks to check on the nerve palsy and has to wear an eye patch over alternating eye until healed. Pt reports no needs or concerns at this time and reports she is "resting and healing." Pt very appreciative of SW's call and agreed to reach out to SW if needs or concerns arise. Exercising: No Stress Management: No Is the patient's distress related to a change in quality of life? No Patient with current Suicidal Ideation: No MENTAL HEALTH HISTORY: No Substance Use and Treatment History: denied History of Abuse: denied History of combat/trauma: No INTERVENTION/PLAN: Monitor patient response to treatment Communicate pertinent medical/psychosocial information to Cancer Center team Continue follow up as needed Resources and Referrals: Internal: NA External: N/A Follow up appointment with SW in: PRN Assigned SW listed in Care Team tab: Yes Assessment Completed RIAZ Hollis-Rosenda documented in this encounterSouthern [facility]03-15-2023 Miscellaneous Notes* Telephone Encounter - Koki Crabtree LPN - 04/19/2022 7:20 PM EDT Patient has been identified by name and date of : No Patient phones for refill(s): Requested Prescriptions Pending Prescriptions Disp Refills metoprolol succinate ER (TOPROL XL) 50 mg 24 hr tablet 90 tablet 3 Sig: Take 1 tablet by mouth once daily. Date of last office visit in primary care: 04/11/22 Last 2 Encounter Wt Readings: Date: Wt: 04/11/2022 97.5 kg (215 lb) 04/07/2022 97.1 kg (214 lb 1.1 oz) Previous labs/tests for medication: Blood Pressure: BUN (mg/dL) Date Value 04/14/2022 25 03/28/2021 23 Sodium (mmol/L) Date Value 04/14/2022 139 03/28/2021 140 Last 1 Encounter BP Readings: Date: BP: 04/11/2022 140/60 Please advise. Thank you. Koki Crabtree LPN * Telephone Encounter - Maureen Locke - 04/19/2022 3:20 PM EDT Patient has been identified by name and date of : Yes Requested Prescriptions Pending Prescriptions Disp Refills metoprolol succinate ER (TOPROL XL) 50 mg 24 hr tablet 90 tablet 3 Sig: Take 1 tablet by mouth once daily. RX INSTRUCTIONS: Patient aware RX will be sent to pharmacy. No need to notify patient. Maureen Locke documented in this encounterSouthern [facility] Center03-14-2023 Miscellaneous Notes* Telephone Encounter - Julia Cohen RN - 04/18/2022 10:06 AM EDT Pt called and is notified of providers message and instructions. Pt voices understanding. Pt has anappointment set up with provider on 04/26 for f/u. Julia Cohen RN * Telephone Encounter - Yasemin Connors MD - 04/18/2022 7:54 AM EDT The protocol is that you have to be hospitalized for 3 days to be eligible for any kind of rehab They would no admit in step down unless you are having dehydration or Extreme exhaution. If you are having the above go back to the Er and tell them that you cannot take care of yourself at home and they may admit you, It is a little tricky sometimes, they may just decide not to admit. If you cannot keep down water or food, if your bp is low or you feel dizzy, disoriented or you justdont feel right then you need to go to the ER Regards, Yasemin Connors MD * Telephone Encounter - Mya Samuels LPN - 04/17/2022 9:16 AM EDT Pt calling and she was to [facility] ER Sunday04-15-22. Pt dx with c-dif and they sent her home. Pt concerned because her daughter lives with her and has an autoimmune system. Pt is on an ATB Vancomycin. Pt feels she is not doing well, weak, exhausted, ringing in ears, decreased urinating. She is going and usually leaks and not doing any leaking. Pt asking if there is place where she can go. Asking for a step down unit somewhere. Have not set up for ER FU pt wanted above message sent to you first. Mya Samuels LPN documented in this encounterSouthern [facility] Center03-11-[address] [facility] April 15, 2022 10:47am Note Date/Time April 15, 2022 6:3 3am [facility] Medical Records Department [address] [place] [address] Emergency Department Summary 04/15/22 MR#: [id number] Acct: [id number] Name: SAEID URBINA Rep #:[id number] : 1950 71 From: Luis Angel Smart MD PCP: Dr. Yasemin Connors MD Status:REG E R Location: ED HPI HPI - GI History of Present Illness Chief Complaint: Nausea/Vomiting/Diarrhea Informant: patient Nausea/Vomiting/Emesis GI Symptom: Positive for Nausea and Vomiting Onset: Yesterday Quality: Positive for Nonbilious; Negative for Blood streaks, Coffee ground or Hematemesis Severity: Severe Diarrhea/Melena/Hematochezia GI Symptom: Positive for Diarrhea; Negative for Melena or Hematochezia Onset: Yesterday Stool Quality: Positive for Watery Severity: Severe Associated Symptoms Associated Symptoms: Negative for Dysuria, Frequency or Hematuria Narrative Narrative: Patient with about 12 hours of vomiting and diarrhea, she is having trouble keeping any fluids down and feeling malaised and ill. She has had some occasional lower abdominal cramping, it has been mild and brief right before shehas diarrhea and then it resolves, no other abdominal pains. She denies any known sick contacts, but she has been at hospitals recently getting outpatient tests, 1 of which was [facility] where she was admitted overnight to have that test according to her, she recently was diagnosed with a 6th nerve palsy in her right eye, so she had a brain MRI and an EEG scheduled. She is scheduled to seeDr. Christina with neurology this coming week after having had those tests for consultation. She denies any history of C. difficile that she knows of in the past. No recent antibiotics. No travel out of the area or camping or suspicious food/water ingestion that could have caused this. [facility] Medical History Adverse effect of COVID-19 vaccine Breast cancer Chronic diastolic (congestive) heart failure Chronic low back pain CKD (chronic kidney disease), stage III Colon cancer COPD (chronic obstructive pulmonary disease) Essential hypertension Fibromyalgia Gastroesophageal reflux disease Hyperlipidemia Morbid obesity Obstructive sleep apnea syndrome Rheumatoid arthritis Type 2 diabetes mellitus Home Medications amlodipine 10 mg tablet 10 mg PO QHS 05/10/14 [History Last Taken 05/09/14 22:00] metformin 500 mg tablet,extended release 24 hr 1,000 mg PO DAILY 05/10/14 [History Last Taken 05/09/14 22:00] metoprolol succinate 50 mg tablet,extended release 24 hr 50 mg PO QHS 05/10/14 [History Last Taken 05/09/14 22:00] cyanocobalamin (vitamin B-12) 2,000 mcg tablet 500 mcg PO DAILY 09/02/15 [History Last Taken Unknown] acetaminophen 500 mg tablet 1,000 mg PO TID PRN Pain 1-10 Or Fever 10/29/15 [History Last Taken Unknown] folic acid 800 mcg tablet 800 mg PO DAILY 05/23/17 [History Last Taken Unknown] omega-3 fatty acids-fish oil 340 mg-1,000 mg capsule 1 ea PO QHS 05/23/17 [History Last Taken 05/20/17] morphine 30 mg capsule,extended release 24 hr multiphase 15 mg PO TID 10/09/18 [History Last Taken 01/16/20 09:30 15 MG] hydroxychloroquine 200 mg tablet 200 mg PO DAILY 10/16/19 [History Last Taken Unknown] magnesium oxide 400 mg PO DAILY #90 tabs 10/16/19 [Rx Last Taken Unknown] valsartan 160 mg tablet 160 mg PO DAILY 10/16/19 [History Last Taken 01/16/20 09:30 160 MG] furosemide 20 mg tablet 10 mg PO DAILY #45 tabs 12/03/19 [Rx Last Taken Unknown] omeprazole 20 mg capsule,delayed release 40 mg PO DAILY 01/14/20 [History Last Taken 01/16/20 09:30 20 MG] promethazine 25 mg tablet 25 mg PO Q6H PRN Nausea 07/01/20 [History Last Taken Unknown] ergocalciferol (vitamin D2) 1,250 mcg (50,000 unit) capsule (Vitamin D2) 1,250 mcg PO QWEEK 10/15/20 [History Last Taken Unknown] loperamide 2 mg capsule (Anti-Diarrheal (loperamide)) 2 mg PO Q4H PRN Diarrhea 10/15/20 [History Last Taken Unknown] insulin lispro 100 unit/mL subcutaneous solution 1 sliding scale dose subcut USEASDIRECTD 10/20/21 [History Last Taken Unknown] vibegron 75 mg tablet (Gemtesa) 75 mg PO DAILY 10/20/21 [History Last Taken Unknown] fenofibrate 54 mg tablet 54 mg PO DAILY #90 tabs 02/09/22 [Rx Last Taken Unknown] ondansetron 4 mg disintegrating tablet 4 mg PO BID PRN nausea and vomiting #10 tabs 02/22/22 [Rx Last Taken Unknown] ondansetron 4 mg disintegrating tablet 8 mg PO Q8H PRN PRN Nausea #12 tabs 04/15/22 [Rx Last Taken Unknown] Allergy/AdvReac Type Severity Reaction Status Date / Time ciprofloxacin [From Cipro] Allergy Rash Verified 04/15/22 06:17 ciprofloxacin HCl Allergy Rash Verified 04/15/22 06:17 [From Cipro] dicyclomine Allergy Rash Verified 04/15/22 06:17 erythromycin base Allergy Rash Verified 04/15/22 06:17 [From E-Mycin] ketoprofen [From Oruvail] Allergy Itching Verified 04/15/22 06:17 loratadine [From Claritin] Allergy Rash Verified 04/15/22 06:17 nabumetone [From Relafen] Allergy Rash Verified 04/15/22 06:17 naproxen Allergy Swelling Verified 04/15/22 06:17 Tkbvmbo-HPF-JaA Reductase Allergy Itching Verified 04/15/22 06:17 Inhibitor [Fexeddh-Hap-Fqg Reductase Inhibitor] Family History Father Heart disease Myocardial infarction late 50's Mother Cancer Brother Cancer Sister Lupus Surgical History Ablation to lumbar spine (07/2017) History of History of cholecystectomy History of lumpectomy of right breast (2010) History of tonsillectomy and adenoidectomy History of tubal ligation Social History Smoking Status: Never smoker ROS ROS ED Constitutional Constitutional ED: Reports weakness; Denies chills or fever(s) Eyes Eyes: Reports change in vision right; Denies diplopia ENT ENT ED: Denies rhinorrhea or sore throat Cardiovascular Cardiovascular: Denies chest pain or palpitations Respiratory/Chest Respiratory/Chest: Denies cough or dyspnea Gastrointestinal Gastrointestinal: Reports abdominal pain, diarrhea, nausea and vomiting; Denies hematemesis, hematochezia or melena Genitourinary Genitourinary ED: Denies dysuria, hematuria or urinary frequency Musculoskeletal Musculoskeletal: Denies back pain or neck pain Integumentary Denies abscess or rash Neurologic Neurologic: Denies headache(s), paresthesias or weakness Psychiatric Psychiatric: Denies anxiety or suicidal thoughts EXAM Physical Exam Const Vital Signs: 04/15/22 06:17 04/15/22 06:17 Temperature 97.4 F L 97.4 F L Temperature Source Temporal Temporal Pulse Rate 131 H 131 H Respiratory Rate 20 H 20 H Blood Pressure 111/73 111/73 Blood Pressure Mean 85 85 Pulse Ox 94 94 Oxygen Delivery Method Room Air Room Air Positive well nourished, well developed and obese General Appearance ED: well developed and NAD Nutritional Appearance: obese HEENT Reports moist mucous membranes normocephalic and atraumatic Eyes PERRL and EOMs intact bilaterally Neck full ROM and supple Resp normal respiratory effort and clear to auscultation bilaterally Cardio regular rate, regular rhythm and no murmurs Rate: tachycardic GI non-tender and non-distended Auscultation: normoactive bowel sounds Palpation: soft Back/Spine no CVA tenderness General Back: other FROM Extremity normal to inspection General Extremety ED: Negative for pulses abnormal or tenderness General Extremity: Negative for pulses abnormal Neuro oriented x3, CN's II-XII intact bilaterally, no sensory deficits noted and gait normal Sensorium / Orientation: awake and alert Motor Exam: strength 5/5 throughout Psych mental status grossly normal and thought process normal Skin no rashes or lesions noted and no wounds MDM MDM MDM Narrative Medical decision making narrative: Suspecting infectious etiology here, patient was treated with IV fluids and Zofran and felt much better on reevaluation. She is a little prerenal, her heart rate went from 130 down to 95 with the IV fluids almost finished. I offered admission she declines and feels like she would be better to go home. We did send diarrhea for stool studies, those are all pending at this time but they should come back within the next 1 or 2 hours including a fecal white bloodcell smear, C. difficile PCR, and enteric bacterial panel. She would like to wait for those. She usually takes morphine 15 mg orally every morning for her chronic low back pain, she did not get to take it last night because of the vomiting and she is asking for that if she can, so I am ordering her a dose of morphine 2 mg IV while she waits. Lab Data Attestation: I reviewed the patient's lab results. Labs: Laboratory Results - last 24 hr 04/15/22 04/15/22 06:40 06:40 WBC 7.4 RBC 4.80 Hgb 14.5 Hct 44.0 MCV 91.7 MCH 30.2 MCHC 33.0 RDW Std Deviation 42.5 RDW Coeff of Julianna 12.6 Plt Count 145 L MPV 10.7 Immature Gran % (Auto) 0.500 Neut % (Auto) 85.3 H Lymph % (Auto) 5.0 L Cottle % (Auto) 8.6 Eos % (Auto) 0.3 Baso % (Auto) 0.3 Absolute Neuts (auto) 6.3 Absolute Lymphs (auto) 0.37 L Nucleated RBC % 0 Differential Comment SCANNED Sodium 138 Potassium 3.5 Chloride 106 Carbon Dioxide 21.0 Anion Gap 11 BUN 25 H Creatinine 1.06 H Estim Creat Clear Calc 33.95 Est GFR (MDRD) Af Amer 65 Est GFR (MDRD) Non-Af 54 L BUN/Creatinine Ratio 23.6 H Glucose 175 H Calcium 9.4 Total Bilirubin 0.50 AST 57 H ALT 52 Alkaline Phosphatase 95 Total Protein 6.6 Albumin 3.3 Globulin 3.3 Albumin/Globulin Ratio 1.0 Discharge Plan Triage Chief Complaint: Nausea/Vomiting/Diarrhea ED Provider: Luis Angel Smart Dx/Rx/DC Orders Clinical Impression: Gastroenteritis, Mild dehydration Instructions: ED FOOD POIS or G-ENTERITIS 6y-wolf Prescriptions: New ondansetron [ondansetron] 4 mg tablet,disintegrating 8 mg PO Q8H PRN PRN (Reason: Nausea) Qty: 12 0RF No Action morphine 30 mg capsule, ER multiphase 24 hr 15 mg PO TID valsartan 160 mg tablet 160 mg PO DAILY Label Comments: TAKE 1 TABLET BY MOUTH EVERY DAY hydroxychloroquine 200 mg tablet 200 mg PO DAILY magnesium oxide 400 mg magnesium tablet 400 mg PO DAILY Qty: 90 4RF ergocalciferol (vitamin D2) [Vitamin D2] 1,250 mcg (50,000 unit) capsule 1,250 mcg PO QWEEK loperamide [Anti-Diarrheal (loperamide)] 2 mg capsule 2 mg PO Q4H PRN (Reason: Diarrhea) Rx Instructions: administer after each loose stool until symptoms controlled; do not exceed 8 mg per 24 hrs insulin lispro 100 unit/mL solution 1 sliding scale dose subcut USEASDIRECTD Gemtesa 75 mg tablet 75 mg PO DAILY metoprolol succinate 50 MG tablet 50 mg PO QHS Label Comments: HEART/BLOOD PRESSURE amlodipine 10 MG tablet 10 mg PO QHS Label Comments: BLOOD PRESSURE metformin 500 MG tablet 1,000 mg PO DAILY Label Comments: DIABETES cyanocobalamin (vitamin B-12) 2,000 MCG tablet 500 mcg PO DAILY acetaminophen 500 MG tablet 1,000 mg PO TID PRN (Reason: Pain 1-10 Or Fever) folic acid 0.8 MG tablet 800 mg PO DAILY omega-3 fatty acids-fish oil 1 EACH capsule 1 ea PO QHS omeprazole 20 MG capsule 40 mg PO DAILY promethazine [Phenergan] 25 mg Tablet 25 mg PO Q6H PRN (Reason: Nausea) ondansetron 4 mg tablet,disintegrating 4 mg PO BID PRN (Reason: nausea and vomiting) Qty: 10 0RF furosemide 20 mg tablet 10 mg PO DAILY Qty: 45 4RF fenofibrate 54 mg tablet 54 mg PO DAILY Qty: 90 4RF Primary Care Provider: Yasemin Connors Referrals: Yasemin Connors MD [Primary Care Provider] - 3-5 Days if not improving (or may return to ER if worse or trouble keeping down fluids) Disposition Disposition: Home, Self Care What to do if you have Problems For any increased pain, shortness of breath, bleeding, nausea or vomiting, chestpain, or any unexpected problems, contact your Primary Care Provider. Call [facility] ([phone]) or report to the closest Emergency Room. Call 911 if necessary. 04/15/22 0737 <Electronically signed by Luis Angel Smart MD> Cosigner Signature (if applicable): CC: Dr. Yasemin Connors MD ~ Signed ADDENDUM by Dr. Clarisa Weir DO on 04/15/22 at 1047 Patient signed out to me pending stool studies. She did start to complain of a mild headache while in the emergency room which is nonacute. She is given a dose of Tylenol and Benadryl per her request. Patient ultimately test positive for rotavirus as well as positive C. difficile toxin on PCR. Patient will be treated with oral vancomycin. Is given first dose in the emergency room. Is still think can be treated outpatient. Is agreeable this plan of care. Counseled to not use Imodium as she does have positive C. difficile 04/15/22 1047<Electronically signed by Clarisa Weir DO> Cosigner Signature (if applicable): cc: Dr. Yasemin Connors MD ~* Signed [facility] Work Phone: 1(325) 676-238803-10-2023 Consult note Author Acute Doctor [facility] April 14, 2022 9:57am Note Date/Time April 14, 2022 9:5 7am [facility] Medical Records Department [address] [place] [address] Telemedicine Confirmation Receipt 04/14/22 MR#: [id number] Acct: [id number] Name: SAEID URBINA Rep #:[id number] : 1950 71 From: Acute Doctor PCP: Dr. Yasemin Connors MD Status:REG C LI [facility] has confirmed receipt of a request for visit. This document confirms receipt of the order initiating the consult. To find the results of the consultation, please view the patient's reports for the scanned Telemed Consult. [facility] Work Phone: 1(574) 678-165703-07-2023 History of Present illness Narrative* Yasemin Connors MD - 04/11/2022 5:44 PM EST Reason for Visit Patient presents with: Hospital F/U: double vision,vertigo needs ESR and CRP per Saeid Urbina is a 71 year old female who presents here today for Above Complaints.. 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 We had ordered an MRI stat outpatient when she came with the said complaints on Sunday but it could not be done so finally they sent her to the ER. In the ER they admitted her under observation and got her the MRI. Nothing abnormal or acute was going on in the MRI but during her stay this was the test that were done for the double vision Recommendations that were given by the hospitalist which was copy pasted here -EEG ordered for Outpatient. 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 Christina (Neurology) as Outpatient within one week of discharge -You were seen by Nephrology for Hypercalcemia. -Nephrology recommended to discontinue vitamin D supplementation for now. Follow up with your family doctor regarding hypercalcemia. Nephrology recommended, If calcium level continues to trend higherthan 11.5-12 then you need follow up with Nephrology for further work-up. -Follow up with your family doctor in one week of discharge Today patient notes that she was in to see Dr. Garrido who said this was 6 now palsy. The cause of the 6th nerve palsy was unclear but likely contributed by the diabetes hypertension and her age. He did not think anything ominous was going on. He did not want an ESR and CRP the possibility out temporal arteritis but otherwise her double vision her visions of color sarah etc. were all sitting within the 6 no palsy which is again from just chronic medical conditions. No problem-specific Assessment & Plan notes found for this encounter. PAST MEDICAL HISTORY Diagnosis Date Benign neoplasm of colon Benign polyps. 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 Lumpectomy, completed radiation 06/27/10. No chemotherapy. Myalgia and myositis, unspecified Obesity, unspecified Obesity Obstructive sleep apnea syndrome 05/24/2015 No longer needs CPAP Pain in joint of right shoulder 09/03/2014 Plantar fascial fibromatosis Seborrheic dermatitis, unspecified Shortness of breath Type II or unspecified type diabetes mellitus without mention of complication, not stated as uncontrolled Unspecified hemorrhoids without mention of complication Hemorrhoids Urinary incontinence overactive bladder PAST SURGICAL HISTORY Procedure Laterality Date ADENOIDECTOMY PRIMARY <AGE 10 age 3 Adenoidectomy BX BREAST PERC NEED W/GUID 02/11/2010 U/S Needle core UOQ right breast bx BX/EXC LYMPH NODE OPEN DEEP AXILLARY NODE 03/16/2010 RIGHT - [facility] Dr. Dung Mayo CATH IMPL VASC ACCESS PORTAL 03/03/2020 DELIVERY ONLY , low cervical x4 CHOLECYSTECTOMY 01/11/1981 Cholecystectomy COLONOSCOPY 06/21/2021 , repeat in 3 years COLONOSCOPY FLX DX W/COLLJ SPEC WHEN PFRMD 08/30/2001 Colonoscopy COLONOSCOPY FLX DX W/COLLJ SPEC WHEN PFRMD 07/17/2012 Colonoscopy COLONOSCOPY FLX DX W/COLLJ SPEC WHEN PFRMD 12/02/2015 Colonoscopy (Needs MAC next time) COLONOSCOPY GEN ANES 01/16/2020 COLONOSCOPY W/BIOPSY SINGLE/MULTIPLE 06/01/2006 EGD 01/16/2020 EGD FLEX REMOVAL LESION(S) BY HOT BIOPSY FORCEPS 08/30/2001 EGD TRANSORAL BIOPSY SINGLE/MULTIPLE 06/01/2006 EGD TRANSORAL BIOPSY SINGLE/MULTIPLE 12/23/2009 EGD W/O BRSH SPEC VARICIES INJ 06/21/2021 ESOPHAGOGASTRODUODENOSCOPY TRANSORAL DIAGNOSTIC 12/02/2015 EGD IMAGING GUIDED RADIOFREQUENCY LIVER ABLATION 04/2020 ablation IR RADIO FREQUENCY ABLATION 11/2017 LAPAROSCOPIC HEMICOLECTOMY 01/26/2020 LIG/TRNSXJ FLP TUBE ABDL/VAG APPR UNI/BI Tubal ligation MASTECTOMY, PARTIAL 03/16/2010 RIGHT - [facility] Dr. Dung Mayo PREOP PLACEMENT NEEDLE LOC 03/16/2010 U/S wire loc UOQ right breast PULMONARY FUNCTION TEST 05/22/2005 SIGMOIDOSCOPY FLX DX W/COLLJ SPEC BR/WA IF PFRMD 04/06/1999 Sigmoidoscopy, flexible TONSILLECTOMY PRIMARY/SECONDARY <AGE 10 age 3 Tonsillectomy FAMILY HISTORY Problem Relation Age of Onset Diabetes Mother Colon Cancer Mother PASSED FROM THIS AT THE AGE OF 62 Heart Father HAD AN [place] IN MID TO LATE 50s, FROM THIS. other (Other) Sister MVA No Known Problems Sister Hypertension Sister Systemic Lupus Erythematosus Sister other (RHUMATOID ARTHRITIS) Sister SAME SISTER HYPERTENSION Cancer Brother Lymphoma. Cancer free for 10 years. Coronary Artery Disease Brother Stent other (Episodes of numbness) Brother having dx testing Colon Cancer Brother Bipolar disorder Daughter Arthritis Daughter Psoriactic other (Epilepsy) Daughter other (cerebral spinal fluid leak) Son other (colitis) Son Autism Grandchild Asthma No Family History Emphysema No Family History Blood Clots No Family History No PE. Social History Tobacco Use Smoking status: Never Smokeless tobacco: Never Tobacco comments: Household ETS for 50 years. Vaping Use Vaping Use: Never used Substance Use Topics Alcohol use: No Drug use: No Past medical history, appointments, medications, allergies reviewed. Pertinent Lab/Diagnostic Studies are reviewed and discussed today Current Outpatient Medications: diphenhydrAMINE (BENADRYL) 25 mg capsule acetaminophen (TYLENOL) 500 mg tablet Lancets lancets blood sugar diagnostic (ONETOUCH ULTRA TEST) test strip magnesium oxide (MAG-OX) 400 mg (241.3 mg magnesium) tablet omeprazole (PRILOSEC) 40 mg capsule insulin lispro (HUMALOG KWIKPEN INSULIN) 100 unit/mL diclofenac (VOLTAREN ARTHRITIS PAIN) 1 % topical gel promethazine (PHENERGAN) 25 mg tablet metFORMIN ER (GLUCOPHAGE XR) 500 mg 24 hr tablet valsartan (DIOVAN) 160 mg tablet furosemide (LASIX) 20 mg tablet metoprolol succinate ER (TOPROL XL) 50 mg 24 hr tablet amLODIPine (NORVASC) 10 mg tablet insulin needles, DISPOSABLE, (PEN NEEDLE) 31 gauge x 5/16" iv contrast (will be provided with radiology test) iv contrast (will be provided with radiology test) enteric contrast (will be provided with radiology test) tiotropium 2.5 mcg-olodateroL 2.5 mcg/actuation mist for inhalation (STIOLTO RESPIMAT) lancets (ONE TOUCH DELICA) 33 gauge loperamide HCl (IMODIUM A-D ORAL) lidocaine-prilocaine (EMLA) 2.5-2.5 % cream Fenofibrate (LOFIBRA) 54 mg tablet hydrOXYchloroQUINE (PLAQUENIL) 200 mg tablet Diclofenac Sodium (SOLARAZE) 3 % gel [place]-3 Fatty Acids 500 mg cap morphine SR (MS CONTIN, ORAMORPH SR) 15 mg 12 hr tablet cyanocobalamin (VITAMIN B-12) 1,000 mcg tab FOLIC ACID 800 MCG TAB Review of Systems CONSTITUTIONAL: No fevers, chills night sweats, unintended weight loss CARDIOVASCULAR: No chest pain, dyspnea, palpitations, orthopnea, PND, ankle edema. PULM: No dyspnea, unexplained cough. GI: No dysphagia/odynophagia, problematic reflux, constipation, diarrhea, changes in stool habits, hematochezia, melena. : No new urinary complaints, including dysuria, gross hematuria or pyuria. NEURO: No new balance problems, peripheral weakness/paresthesias or numbness of concern. Physical Exam BP 140/60 (BP Site: Left Arm, BP Position: Sitting, BP Cuff Size: Large Adult) Pulse 71 Temp 36.7 C (98 F) Resp 14 Ht 152.4 cm (5') Wt 97.5 kg (215 lb) SpO2 97% BMI 41.99 kg/m General appearance: Well appearing, alert, in no acute distress, well nourished. Skin: Skin color, texture, turgor normal, no suspicious rashes or lesions Head: Normocephalic, no masses, lesions, tenderness or abnormalities Eyes: Anicteric sclera. Pupils are equally round and reactive to light. Extraocular movements are intact. Lungs: Lungs clear to auscultation. No wheezing, rhonchi, rales Heart: RRR without murmur, gallop, or rubs. Extremities: No deformities, edema, skin discoloration, clubbing or cyanosis. Good capillary refill. ASSESSMENT/PLAN: 1. Double vision - ICD9: 368.2, ICD10: H53.2 (primary diagnosis) Her myasthenia antibodies were negative, and the eye doctor is pretty sure this is 6 no palsy but wanted ESR and CRP which we have ordered. The need for EEG is not clear but I asked the patient to follow-up with Dr. Christina who is the neurologist to ask if he would need that. The treatment is having a patch on 1 . The patient was told that the left eye of the patient was dominant eye and was doing a lot of work and was was needed to be rested. So putting a patch on the eye will enable the right eye to take over and do more of the work and this fact has been alternated. - SED RATE WESTERGREN - C-REACTIVE PROTEIN (CRP) - SED RATE WESTERGREN - C-REACTIVE PROTEIN (CRP) 2. Nonintractable headache, unspecified chronicity pattern, unspecified headache type - ICD9: 784.0, ICD10: R51.9 - SED RATE WESTERGREN - C-REACTIVE PROTEIN (CRP) 3. Hospital discharge follow-up - ICD9: V67.59, ICD10: Z09 No changes in medications Yasmein Connors MD [facility] of Present illness Narrative* Janki Gutierrez RN - 04/10/2022 10:33 AM EST TCM Home Visit Referral Source of Stratification: [facility] Hospital Admission Status: Discharged Readmission Risk Score: 21 OPAL Score: 16 Patient meets program referral criteria: No Patient does not qualify for High Risk TCM Home Visit program due to: Discharged home, does not meet program criteria Janki Gutierrez RN April 10, 2022 10:35 AM TRANSITIONAL CARE MANAGEMENT (TCM) COMMUNITY MONITORING PROGRAM Provider Action/FYI: Doing a little better No further headaches Has f/u with opthalmology in am Wears eyes patch during the day alternating eyes.Still with double vision which gets worse towards end of day Daughter Angela has been sched all of pts f/u appts EEG on 04/17/22 and then await f/u with Dr Christina her neurologist SUMMARY: Pt discharged from [facility] on 04/09/22. Admitted for: Headache/Double Vision You presented with double vision when she looks out both eyes as well as headache, nausea and dizziness. Contact made with patient: Yes Hi my name is Janki Gutierrez RN and I am calling [facility] the [facility] on behalf of your PCP, Yasemin Connors MD I understand you were recently in the hospital so I am calling to check in with you to ensure you are feeling well now that you're home. May I ask you a few questions related to your hospital stay and well-being? Yes Contact with patient post discharge, spoke to patient. Patient identified by name and . Do you feel your health is BETTER, WORSE, or the SAME since leaving the hospital? Better ACTION TAKEN: Patient indicated symptoms are better or same, no action required. Continue outreach. MEDICATIONS: Many patients have questions or concerns about their medications once they are home. Do you have any questions about taking your medications or which medication you should be on? No Do you need any medication refills at this time, including any of the medications you might take only when needed? No ACTION TAKEN: No action required For RNs or Pharmacy completing outreach ONLY, was a medication review completed? Yes SOCIAL: We would like to make sure you have what you need so that your basics needs are met - including your personal safety, food, housing and medications. Would you like to speak with a social work prepared foods service team member to help give you support for any of these needs? No It can be normal to feel anxious or down during a time like this. Would you like to talk to a mental health professional about how you have been feeling? No ACTION TAKEN: No action taken DISCHARGE INTRUCTIONS: Your discharge instructions / After Visit Summary (AVS) are important in guiding you through the recovery process. Do you have any questions related to your discharge instructions? No Do you have all the necessary equipment and supplies at home? Yes ACTION TAKEN: No action required I would like to help you schedule a hospital follow-up virtual or telephone visit with your PCP. This is a great way for you to connect with your provider to ensure you have safely transitioned home.If you are agreeable, I will send your request to a ham trimmer who will contact and assist you with that appointment. This will give you an opportunity to ask any questions or address any concerns youmay have with your PCP. Inform the patient that if they have any questions or concerns prior to that appointment, to call their PCP's office right away. ACTION TAKEN: No action required, patient already has an appointment scheduled. Your doctor would like us to remind you of the recommendations regarding the coronavirus (Covid19) outbreak: Avoid public places as much as possible. Avoid close contact (within 6 feet) with others you don t live with, especially if they are sick. Stay home if you are sick. Wash your hands regularly for at least 20 seconds with soap and water. Wear a cloth mask in public places to help reduce community spread. Do not go to your Doctor s office unless instructed to do so. For any non- emergency symptoms, call your Doctor s office to get instructions on how to manage (we might recommend a telephone or virtualvisit). For emergency symptoms, proceed to Emergency Department as usual but inform them of cough and fever symptoms CARMEN if present (or call on the way if possible). TINY Education Ordered -: No [facility] NoteHNO ID: [id number] Author: Hayden Anderson MD Service: Nephrology Author Type: Physician Type: Progress Notes Filed: 04/09/2022 1:08 PM Note Text: INPATIENT CONSULT PROGRESS NOTES Patient Name: Saeid Urbina DATE of SERVICE: April 09, 2022 TIME of SERVICE: 1:06 PM CONSULTING SERVICE: Nephrology REASON FOR VISIT: Hypertension and hypercalcemia CC: Double vision SUBJECTIVE: She continues to have double vision and is supposed to see an eye doctor. She has been cleared by neurology to be discharged but she needs to get an EEG. Blood pressure is better controlled. Discussed with primary attending. ROS: no headache, no nausea, no vomiting, no diarrhea, no abdominal pain, no palpitations, no chest pain MEDICATIONS: reviewed PHYSICAL EXAM: Patient Vitals for the past 8 hrs: BP Temp Temp src Pulse Resp SpO2 04/09/22 1209 141/69 36.9 ?C (98.5 ?F) Oral 81 18 96 % 04/09/22 0805 156/70 -- -- (!) 57 -- 98 % 04/09/22 0800 175/74 -- -- 62 -- -- 04/09/22 0756 175/74 36.8 ?C (98.3 ?F) Oral 61 18 98 % Body mass index is 41.81 kg/m?. GENERAL: alert, no distress, cooperative LUNGS: Lungs clear to auscultation. Decreased air entry, no crackles CARDIAC: Normal S1 and S2; no rubs, murmurs, or gallops ABDOMEN: Abdomen soft, non-tender. BS normal. EXTREMITIES: No edema Intake/Output Summary (Last 24 hours) at 04/09/2022 1306 Last data filed at 04/09/2022 1100 Gross per 24 hour Intake 360 ml Output -- Net 360 ml DATA: Labs and images reviewed CBC, Coags, BMP, Mg, Phos Recent Labs 04/09/22 0528 04/08/22 0532 04/07/221956 WBC 5.58 6.76 5.69 HB 12.2 13.1 13.1 HCT 36.1 38.8 38.9 PLT 142* 169 144* INR 1.0 1.0 -- NA 139 142 140 K 3.9 4.0 3.9 CHLOR 104 105 104 CO2 28 28 26 BUN 20 20 19 CREAT 0.94 0.95 0.93 GLUC 138* 149* 99 CA 10.0 10.7* 10.3* MG 1.7 1.8 -- P -- 3.8 -- ASSESSMENT: 1. Hypercalcemia: Calcium level has normalized today at 10. She is off the vitamin D. PTH is elevated around 94. Creatinine is normal. She likely has primary hyperparathyroidism. No sestamibi scan has been done in the past. PTH was elevated few years ago. 2. Hypertension: Better controlled. On valsartan Lasix metoprolol and amlodipine. 3. CKD stage II: Baseline creatinine currently in the 0.9-1 range. It had gone up to mid 1 range while she was undergoing chemotherapy for the colon cancer. PLAN: 1. Stable for discharge from nephrology standpoint 2. Would avoid giving her vitamin D 3. If calcium level continues to trend higher than 11.5-12 then we can consider a sestamibi scan 4. Continue current antihypertensives Will continue to follow the patient during the hospital stay. SIGNATURE: Hayden Anderson MD DATE: April 09, 2022 TIME: 1:06 PMWayne [id number] NoteHNO ID: [id number] Author: Reji Gomez DO Service: Hospital Medicine Author Type: Physician Type: Progress Notes Filed: 04/08/2022 10:37 PM Note Text: DEPARTMENT OF HOSPITAL MEDICINE PROGRESS NOTE SERVICE DATE: 04/08/2022 SERVICE TIME: 10:28 AM Hospital Medicine/Primary Attending: Reji Gomez DO NIGHT AND WEEKEND COVERAGE: JONES COVERAGE: Days: [phone], please page attending physician. Nights: [phone], please page [facility] Night coverage pager [phone]. Subjective INTERVAL HPI: denies any chest pain or shortness of breath. Patient states that she has had it for 2 months. Patient states on she had a headache and she took Tylenol and Benadryl will have a little. Patient started having double vision on her left eye on at noon and on Sunday she started having headache and double vision on the left eye ever since she woke up at 6 AM. She denies any numbness, weakness, tingling, blurry vision, dysarthria or dysphagia. Patient states that she still drives and at times walks with a walker or cane. Denies any trauma, head or neck injury. Denies any chest pain or shortness of breath. Denies any fever, chills, cough, vomiting, abdominal pain or diarrhea. There is complaint of nausea. Current Facility-Administered Medications Medication Dose Route Frequency iv contrast (radiology procedure) INTRAVENOUS DIRECTED PRN NaCl 0.9% iv flush bag 20 mL INTRAVENOUS PRN atorvastatin 40 mg tab(s) (LIPITOR) 40 mg ORAL/FEEDING TUBE AT BEDTIME acetaminophen 650 mg tab(s) (TYLENOL) 650 mg ORAL/FEEDING TUBE q 4 H PRN ondansetron (PF) 4 mg injection (ZOFRAN) 4 mg INTRAVENOUS q 6 H PRN sodium chloride 0.9 % (flush) 2-10 mL (BD POSIFLUSH) 2-10 mL INTRAVENOUS DIRECTED PRN And perflutren lipid microspheres 1.1 mg/mL 1.3 mL injection (DEFINITY) 1.3 mL INTRAVENOUS DIRECTED PRN cyanocobalamin 1,000 mcg tab(s) (VITAMIN B-12) 1,000 mcg ORAL DAILY diclofenac 1 % 2 g topical gel (VOLTAREN) 2 g TOPICAL DAILY diphenhydrAMINE 25 mg (BENADRYL) 25 mg ORAL q 6 H PRN fenofibrate 67 mg cap(s) (LOFIBRA) 67 mg ORAL DAILY folic acid 1 mg tab(s) 1 mg ORAL DAILY furosemide 10 mg tab(s) (LASIX) 10 mg ORAL DAILY hydrOXYchloroQUINE 200 mg tab(s) (PLAQUENIL) 200 mg ORAL DAILY magnesium oxide 400 mg tab(s) (MAG-OX) 400 mg ORAL DAILY metoprolol succinate ER 50 mg tab(s) (TOPROL XL) 50 mg ORAL DAILY morphine SR 15 mg tab(s) (MS CONTIN, ORAMORPH SR) 15 mg ORAL q [address] 40 mg tab(s) (PROTONIX) 40 mg ORAL DAILY ipratropium-albuterol 3 mL nebulizer solution (DUONEB) 3 mL INHALATION q 6 H PRN aspirin 81 mg chewable tab(s) 81 mg ORAL DAILY iv contrast (radiology procedure) INTRAVENOUS DIRECTED PRN senna-docusate 8.6-50 mg 1 tablet (SENNA-S) 1 tablet ORAL DAILY Objective PHYSICAL EXAM: BP 158/71 Pulse 69 Temp (Src) 98.2 (Oral) Resp 18 Ht 5' 0" (1.52m) Wt 214 lb 1.1 oz (97.1kg) SpO2 97% BMI 41.81 kg/(m2). O2 Therapy: Room Air Physical Exam Performed GENERAL: Alert, no distress, cooperative HEAD/SINUSES: No significant findings EYES: PERRLA, EOMI NOSE: Nares normal. Septum midline. OROPHARYNX: Lips, mucosa, and tongue normal. Teeth and gums normal. Oropharynx normal. LUNGS: Lungs clear to auscultation, Good diaphragmatic excursion CARDIAC: Normal S1 and S2; no rubs, murmurs, or gallops ABDOMEN: Abdomen soft, non-tender, BS normal, No masses or organomegaly EXTREMITIES: Extremities normal, no deformities, edema, clubbing or skin discoloration. Good capillary refill., No ulcers NEURO: Cranial nerves II-XII intact, speech intact Lines, Drains, and Airways Line Duration Implanted Vascular Access Device Double Port 04/08/22 0204 Left Chest <1 day DATA: Diagnostic tests reviewed for today's visit: Most recent labs Most recent imaging Most recent EKG Assessment/Plan Problem List Double vision POA: Yes Hypertension goal BP (blood pressure) < 150/90 POA: Yes Hypercalcemia POA: Yes RA (rheumatoid arthritis) (HCC) POA: Yes CKD (chronic kidney disease) stage 3, GFR 30-59 ml/min (HCC) POA: Yes History of breast cancer POA: Yes Type 2 diabetes mellitus with stage 3 chronic kidney disease, with long-term current use of insulin (HCC) POA: Yes Cancer of transverse colon (HCC) POA: Yes Status post right hemicolectomy POA: Yes Chronic diastolic CHF (congestive heart failure) (HCC) POA: Yes Chronic pain syndrome POA: Yes Liver metastases (HCC) POA: Yes Metastases to the liver (HCC) POA: Yes S/P Laparoscopic Liver ablation POA: Yes Blurry vision POA: Yes Headaches POA: Yes HOSPITAL COURSE: Saeid Urbina is a 71 year old female presented with past medical history of hypertension, rheumatoid arthritis, CKD stage III, history of breast cancer, type 2 diabetes, 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 She also had colorectal cancer in 2019. Patient had to be on chemo for it. Patient healed from that, she had a port put in. 15 months since patient had chemo. She used to have migraines in the past griselda with the weather change. This was over the past 10 years. Used to have nausea with the headache and hence was told she has migraines. End of feb she had an episode of migraines, that was pretty severe. Struggled 3/4 hours, it was badenough she went ot the [facility] ER and there they gave her 2 extra strength tylenol with BEnadyrl and ithelped relieved the headache. She also had a ct scan there and then went home. When she has the headaches, other times it was thewhole head but right now it has been the in the left eye and left head frontal lobe'. She has takenthe benadyl and tylenol 4 hours a go and that is not helping her as much. From 9 to 6 /10 pain . She is feeling a little nausea, but is taking the promethazine for the nausea. Today the weather has provoked her to have a headache and nausea. This time what is different is double vision, she has double vision since last evening and not resolved. If she squints it gets a little better. The longer she was up she woke up and the double vision was present. The vertigo and spinning is almost there, she feels dizzi and needs to spin. She has ringing in her ears but that is not new , she has always had the ringing in the ears. No problem-specific Assessment & Plan notes found for this encounter. PAST MEDICAL HISTORY Diagnosis Date Benign neoplasm of colon Benign polyps. 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 Lumpectomy, completed radiation 06/27/10. No chemotherapy. Myalgia and myositis, unspecified Obesity, unspecified Obesity Obstructive sleep apnea syndrome 05/24/2015 No longer needs CPAP Pain in joint of right shoulder 09/03/2014 Plantar fascial fibromatosis Seborrheic dermatitis, unspecified Shortness of breath Type II or unspecified type diabetes mellitus without mention of complication, not stated as uncontrolled Unspecified hemorrhoids without mention of complication Hemorrhoids Urinary incontinence overactive bladder PAST SURGICAL HISTORY Procedure Laterality Date ADENOIDECTOMY PRIMARY <AGE 10 age 3 Adenoidectomy BX BREAST PERC NEED W/GUID 02/11/2010 U/S Needle core UOQ right breast bx BX/EXC LYMPH NODE OPEN DEEP AXILLARY NODE 03/16/2010 RIGHT - [facility] Dr. Dung Mayo CATH IMPL VASC ACCESS PORTAL 03/03/2020 DELIVERY ONLY , low cervical x4 CHOLECYSTECTOMY 01/11/1981 Cholecystectomy COLONOSCOPY 06/21/2021 , repeat in 3 years COLONOSCOPY FLX DX W/COLLJ SPEC WHEN PFRMD 08/30/2001 Colonoscopy COLONOSCOPY FLX DX W/COLLJ SPEC WHEN PFRMD 07/17/2012 Colonoscopy COLONOSCOPY FLX DX W/COLLJ SPEC WHEN PFRMD 12/02/2015 Colonoscopy (Needs MAC next time) COLONOSCOPY GEN ANES 01/16/2020 COLONOSCOPY W/BIOPSY SINGLE/MULTIPLE 06/01/2006 EGD 01/16/2020 EGD FLEX REMOVAL LESION(S) BY HOT BIOPSY FORCEPS 08/30/2001 EGD TRANSORAL BIOPSY SINGLE/MULTIPLE 06/01/2006 EGD TRANSORAL BIOPSY SINGLE/MULTIPLE 12/23/2009 EGD W/O BRSH SPEC VARICIES INJ 06/21/2021 ESOPHAGOGASTRODUODENOSCOPY TRANSORAL DIAGNOSTIC 12/02/2015 EGD IMAGING GUIDED RADIOFREQUENCY LIVER ABLATION 04/2020 ablation IR RADIO FREQUENCY ABLATION 11/2017 LAPAROSCOPIC HEMICOLECTOMY 01/26/2020 LIG/TRNSXJ FLP TUBE ABDL/VAG APPR UNI/BI Tubal ligation MASTECTOMY, PARTIAL 03/16/2010 RIGHT - [facility] Dr. Dung Mayo PREOP PLACEMENT NEEDLE LOC 03/16/2010 U/S wire loc UOQ right breast PULMONARY FUNCTION TEST 05/22/2005 SIGMOIDOSCOPY FLX DX W/COLLJ SPEC BR/WA IF PFRMD 04/06/1999 Sigmoidoscopy, flexible TONSILLECTOMY PRIMARY/SECONDARY <AGE 10 age 3 Tonsillectomy FAMILY HISTORY Problem Relation Age of Onset Diabetes Mother Colon Cancer Mother PASSED FROM THIS AT THE AGE OF 62 Heart Father HAD AN [place] IN MID TO LATE 50s, FROM THIS. other (Other) Sister MVA No Known Problems Sister Hypertension Sister Systemic Lupus Erythematosus Sister other (RHUMATOID ARTHRITIS) Sister SAME SISTER HYPERTENSION Cancer Brother Lymphoma. Cancer free for 10 years. Coronary Artery Disease Brother Stent other (Episodes of numbness) Brother having dx testing Colon Cancer Brother Bipolar disorder Daughter Arthritis Daughter Psoriactic other (Epilepsy) Daughter other (cerebral spinal fluid leak) Son other (colitis) Son Autism Grandchild Asthma No Family History Emphysema No Family History Blood Clots No Family History No PE. Social History Tobacco Use Smoking status: Never Smokeless tobacco: Never Tobacco comments: Household ETS for 50 years. Vaping Use Vaping Use: Never used Substance Use Topics Alcohol use: No Drug use: No Past medical history, appointments, medications, allergies reviewed. Pertinent Lab/Diagnostic Studies are reviewed and discussed today Current Outpatient Medications: diphenhydrAMINE (BENADRYL) 25 mg capsule acetaminophen (TYLENOL EXTRA STRENGTH) 500 mg tablet Lancets lancets blood sugar diagnostic (ONETOUCH ULTRA TEST) test strip magnesium oxide (MAG-OX) 400 mg (241.3 mg magnesium) tablet omeprazole (PRILOSEC) 40 mg capsule insulin lispro (HUMALOG KWIKPEN INSULIN) 100 unit/mL diclofenac (VOLTAREN ARTHRITIS PAIN) 1 % topical gel promethazine (PHENERGAN) 25 mg tablet metFORMIN ER (GLUCOPHAGE XR) 500 mg 24 hr tablet valsartan (DIOVAN) 160 mg tablet furosemide (LASIX) 20 mg tablet metoprolol succinate ER (TOPROL XL) 50 mg 24 hr tablet amLODIPine (NORVASC) 10 mg tablet insulin needles, DISPOSABLE, (PEN NEEDLE) 31 gauge x 5/16" iv contrast (will be provided with radiology test) iv contrast (will be provided with radiology test) enteric contrast (will be provided with radiology test) ergocalciferol 50,000 unit capsule (VITAMIN D2, DRISDOL) tiotropium 2.5 mcg-olodateroL 2.5 mcg/actuation mist for inhalation (STIOLTO RESPIMAT) lancets (ONE TOUCH DELICA) 33 gauge loperamide HCl (IMODIUM A-D ORAL) lidocaine-prilocaine (EMLA) 2.5-2.5 % cream Fenofibrate (LOFIBRA) 54 mg tablet hydrOXYchloroQUINE (PLAQUENIL) 200 mg tablet Diclofenac Sodium (SOLARAZE) 3 % gel [place]-3 Fatty Acids 500 mg cap morphine SR (MS CONTIN, ORAMORPH SR) 15 mg 12 hr tablet cyanocobalamin (VITAMIN B-12) 1,000 mcg tab FOLIC ACID 800 MCG TAB Review of Systems CONSTITUTIONAL: No fevers, chills night sweats, unintended weight loss CARDIOVASCULAR: No chest pain, dyspnea, palpitations, orthopnea, PND, ankle edema. PULM: No dyspnea, unexplained cough. GI: No dysphagia/odynophagia, problematic reflux, constipation, diarrhea, changes in stool habits, hematochezia, melena. : No new urinary complaints, including dysuria, gross hematuria or pyuria. NEURO: No new balance problems, peripheral weakness/paresthesias or numbness of concern. Physical Exam BP 122/70 (BP Site: Left Arm, BP Position: Sitting, BP Cuff Size: Large Adult) Pulse 68 Temp 36.8 C (98.3 F) Resp 14 Ht 152.4 cm (5') Wt 97.1 kg (214 lb) SpO2 94% BMI 41.79 kg/m General appearance: Well appearing, alert, in no acute distress, well nourished. Skin: Skin color, texture, turgor normal, no suspicious rashes or lesions Head: Normocephalic, no masses, lesions, tenderness or abnormalities Eyes: Anicteric sclera. Pupils are equally round and reactive to light. Extraocular movements are intact. Lungs: Lungs clear to auscultation. No wheezing, rhonchi, rales Heart: RRR without murmur, gallop, or rubs. Extremities: No deformities, edema, skin discoloration, clubbing or cyanosis. Good capillary refill. Neuro: Awake, alert and oriented x 3, patient had double vision in the right lateral areas when eyetracking was done, she did not have any nystagmus. Reflexes symmetrical,using the walker her gait was normal and No involuntary motions. ASSESSMENT/PLAN: 1. Double vision - ICD9: 368.2, ICD10: H53.2 (primary diagnosis) - MRI BRAIN WO/W IVCON 2. Dizziness - ICD9: 780.4, ICD10: R42 - MRI BRAIN WO/W IVCON 3. Vertigo - ICD9: 780.4, ICD10: R42 - MRI BRAIN WO/W IVCON 4. Intractable headache, unspecified chronicity pattern, unspecified headache type - ICD9: 784.0, ICD10: R51.9 - MRI BRAIN WO/W IVCON 5. Thunderclap headache - ICD9: 784.0, ICD10: G44.53 - MRI BRAIN WO/W IVCON 6. H/O colon cancer, stage IV - ICD9: V10.05, ICD10: Z85.038 - MRI BRAIN WO/W IVCON Yasemin Connors MD [facility] History of Present illness Narrative* Geneva Ramos APRN.ADMINISTRATIVE PROCESSOR - 04/03/2022 1:54 PM EST Chief Complaint Patient presents with: Established Patient HPI: Saeid Urbina is a 71 year old female who presents here today for follow up colon cancer. Per Dr. 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 Patient developed symptoms of dyspepsia including upper abdominal discomfort and postprandial nausea. She also had early satiety and had been noted to have weight loss over the preceding 6 months. She underwent a colonoscopy and was observed to have a near obstructing lesion in the mid transverse colon highly suspicious for malignancy. The scope could not be advanced past this lesion. A clip was placed. Biopsies were performed but evidently nondiagnostic. CT A/P 01/19/2020: Liver: No mass. Biliary: The gallbladder is absent. There is mild dilation of the common bile duct/common hepatic duct. Spleen: No mass. No splenomegaly. Pancreas: No mass or duct dilation. Adrenals: No mass. Kidneys: 2-3 mm tiny attenuations in the bilateral kidneys, too small to progress. There appear to be a few parapelvic cyst. No hydronephrosis. GI tract: A 3 cm bowel wall thickening with narrowing of the lumen noted in the transverse colon, in appearance of apple core, concerning for malignancy. No bowel obstruction. Some fecal retention is noted. Lymph nodes: No abdominal or pelvic lymphadenopathy. Mesentery/Peritoneum: No ascites or mass or free abdominal air. Retroperitoneum: No mass. Vasculature: The celiac axis and SMA are patent. The portal vein and branches, splenic vein, SMV, and hepatic veins are patent. Pelvis: No mass, ascites or fluid collection. Bones/Soft Tissues: A 2 cm hyperdensity noted in the right anterior abdominal wall, likely presenting injection granuloma. There is a 2.5 x 3.8 cm fat-containing paraumbilical hernia. The spine shows degenerative changes with multilevel disc space narrowing. No definite destructive bony lesions seen. Lower thorax: No pleural effusions. Mild atelectatic changes noted in the right middle lobe and lingula. Field Account Director (topogram) images: No additional findings. Patient was admitted to [facility] on 01/26/2020. She underwent a laparoscopic colectomy partial right hemicolectomy and laparoscopic liver biopsy onthe same day. Pathology: FINAL DIAGNOSIS 1. Right colon, terminal ileum, and appendix, extended right hemicolectomy (A): - Adenocarcinoma involving transverse colon and extending into pericolonic soft tissue, margins negative (see synoptic). - Metastatic adenocarcinoma in one lymph node (02/18). 2. Liver, biopsy (B): Metastatic adenocarcinoma, consistent with colorectal origin. COMMENT Immunohistochemistry was performed on the liver biopsy, and tumor cells strongly express CDX2 and CK7, while CK20 is negative. The features are consistent with metastatic spread of the patient's colorectal adenocarcinoma. SYNOPTIC REPORT OF MAE PATHOLOGIC FINDINGS EXTENDED RIGHT COLON: COLON AND RECTUM:RESECTION, INCLUDING TRANSANAL DISK EXCISION OF RECTAL NEOPLASMS WORKSHEET: Procedure: Right hemicolectomy Tumor Site: Transverse colon Tumor Size: Greatest dimension: 3.5 cm Macroscopic Tumor Perforation: Not identified Macroscopic Intactness of Mesorectum: Not applicable Histologic Type: Adenocarcinoma Histologic Grade: G2: Moderately differentiated Tumor Extension: Tumor invades through the muscularis propria into pericolorectal tissue Margins: All margins are uninvolved by invasive carcinoma, high-grade dysplasia, intramucosal adenocarcinoma, and adenoma Margins examined: proximal, distal, radial, mesenteric Proximal Margin: Uninvolved by invasive carcinoma Distal Margin: Uninvolved by invasive carcinoma Circumferential Radial Margin: Uninvolved by invasive carcinoma Mesenteric Margin: Uninvolved by invasive carcinoma Treatment Effect: No known presurgical therapy Lymphovascular Invasion: Present Perineural Invasion: Present Type of Polyp in which Invasive Carcinoma Arose: Tubular adenoma Tumor Deposits: Not identified Regional Lymph Nodes: Number of nodes involved: 1 Number of nodes examined: 14 Pathologic Stage Classification (pTNM,AJCC 8th ed) TNM Descriptors: Not applicable Pathologic Staging (pTNM): pT3: Tumor invades through the muscularis propria into pericolorectal tissues Regional Lymph Nodes (pN): pN1a: One regional lymph node is positive Distant Metastasis (pM): pM1: Metastasis to one or more distant sites or organs or peritoneal metastasis is identified --------- Had MRI of the liver as well as CT scan of chest, abdomen pelvis. Underwent PET scan which suggested liver only metastasis. Laparoscopic microwave ablation of liver metastasis under ultrasound guidance on 04/23/2020. Previous therapy: 1) Adjuvant FOLFIRI. Completed 12 cycles as of 01/24/2021. Had egd/colonoscopy in June [address] Pérez. Next due in 3 years. Pt. here today with her daughter. Appetite:"Good. I don't have trouble with food." Wt. down 5# since 2021 Energy level:"5-6." Per daughter she has been doing a lot more. Denies fevers or recent illness. Resp:denies cough or sob Cardiac:denies chest pain/palpitations GI:denies abd pain, occ. nausea, denies vomiting recently, +constipation :denies dysuria/hematuria Extrem:chronic hand/knee/low back pain-followed Dr. Wang and Dr. Brown pain mgmt. 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 Past medical history, appointments, medications, allergies reviewed. No changes. EXAM: BP 125/61 Pulse (!) 59 Temp 36.7 C (98 F) Wt 98.4 kg (217 lb) SpO2 97% BMI 42.38 kg/m APPEARANCE Well appearing, alert, in no acute distress, well-hydrated, well nourished. HEART RRR with normal S1 and S2, no murmurs LUNG clear to auscultation LYMPH NODES No cervical lymphadenopathy, No supraclavicular lymphadenopathy, and No axillary lymphadenopathy. ABDOMEN bowel sounds normoactive, soft, non-tender EXTREMITIES No edema NEURO Awake, alert and oriented x 3, Normal gait, and No involuntary motions. SKIN Skin color, texture, turgor normal, no suspicious rashes or lesions LABS: Component Latest Ref Rng & Units 12/01/2021 02/21/2022 04/03/2022 WBC 3.70 - 11.00 k/uL 5.50 4.79 5.13 RBC 3.90 - 5.20 m/uL 4.08 4.43 4.30 Hemoglobin 11.5 - 15.5 g/dL 12.4 13.5 13.0 Hematocrit 36.0 - 46.0 % 37.1 41.4 38.8 MCV 80.0 - 100.0 fL 90.9 93.5 90.2 MCH 26.0 - 34.0 pg 30.4 30.5 30.2 MCHC 30.5 - 36.0 g/dL 33.4 32.6 33.5 RDW-CV 11.5 - 15.0 % 12.8 12.9 12.8 Platelet Count 150 - 400 k/uL 154 149 (L) 155 MPV 9.0 - 12.7 fL 10.7 11.0 10.7 Neut% % 65.5 66.8 58.4 Abs Neut (ANC) 1.45 - 7.50 k/uL 3.61 3.20 3.00 Lymph% % 21.5 19.0 26.7 Abs Lymph 1.00 - 4.00 k/uL 1.18 0.91 (L) 1.37 Cottle% % 10.0 11.7 12.3 Abs Cottle <0.87 k/uL 0.55 0.56 0.63 Eosin% % 1.5 1.5 1.6 Abs Eosin <0.46 k/uL 0.08 0.07 0.08 Baso% % 0.4 0.4 0.6 Abs Baso <0.11 k/uL <0.03 <0.03 0.03 Immature Gran % % 1.1 0.6 0.4 IMMATURE GRANS (ABS) <0.10 k/uL 0.06 0.03 <0.03 NRBC /100 WBC 0.0 0.0 0.0 Absolute nRBC <0.01 k/uL <0.01 <0.01 <0.01 DTYPE Auto Auto Auto BMP/LFT's/CEA: Pending ASSESSMENT/PLAN: 1. Malignant neoplasm of transverse colon (HCC) - ICD9: 153.1, ICD10: C18.4 (primary diagnosis) 2. Metastases to the liver (HCC) - ICD9: 197.7, ICD10: C78.7 3. Lung nodules - ICD9: 793.19, ICD10: R91.[address] Vallejo's previous note 03/30/21: Assessment: -In summary the patient is a 70-year-old female who was diagnosed with metastatic adenocarcinoma the transverse colon after presenting with a several month history of early satiety and dyspepsia characterized by upper abdominal pain and postprandial nausea. Initial CT scan demonstrated an apple core filling defect in the transverse colon. During surgery, an approximate 1 cm nodule was appreciatedon the liver. Biopsy tissue was consistent with metastatic adenocarcinoma the colon. CTs revealed asuspicious 8 x 6 mm KASHIF lung nodule. MRI suggested a single liver metastasis. Side branch pancreatic IPMNs. -Laparoscopic microwave ablation of liver metastasis under ultrasound guidance on 04/23/2020. -NRAS mutated. -MMR proficient. -HER2 negative. -She had pre-existing sensory neuropathy manifested as numbness in both toes and her ability to walk was compromised by chronic low back and knee pain--uses walker. -The 8 mm nodule in left upper lobe was suspicious but it was not a proven site of metastatic disease. SBRT could be considered for that at some point in the future. -Has now completed 12 cycles of adjuvant FOLFIRI. -Reviewed the results of the CT scans in detail. Stable pulmonary nodules. Unchanged 8 mm nodule inleft adrenal gland dating back to 2009. Stable 1 cm short axis lymph node in the portacaval area. Diffusely hypoattenuating area of capsular retraction with heterogeneous enhancement and decreasing peripheral hyperdensity in keeping with posttreatment changes in the liver. Plan: -Due for colonoscopy. -Labs/CTs then OV in about 4 months. -Continue management under chronic pain management for arthritis and chronic low back pain. - No concerning findings on exam. Nausea as above. - Reviewed CBC with pt. and daughter. - BMP/Hep. func/CEA pending. - Scopes due June 2024. - Advised pt. to take morphine with food. - Follow up with PCP. - CT chest/abd/pelvis in June 2022. - Needs port flushes. - Follow up in 6 months CBC/BMP/LFT's/CEA-pending today's labs. - Pt. aware to call office with any questions/concerns. The patient indicates understanding of these issues and agrees with the plan. All documentation from previous visit of 12/01/21-Dr. Vallejo/myself was copied and pasted, documentation has been reviewed and edited as necessary for today's visit. Geneva Ramos APRN.MARGO documented in this encounterSouthern [facility]23 Miscellaneous Notes* Telephone Encounter - Vi Kay Pss - 03/31/2022 2:15 PM EST Saeid needs her lancets moved to the [facility]. Please resend the script. * Telephone Encounter - Vi Kay Pss - 03/31/2022 2:13 PM EST Pharmacy verified in [facility] Patient has been identified by name and date of : Yes Patient aware RX will be sent to pharmacy. No need to notify patient. Patient phones for refill(s): Requested Prescriptions Pending Prescriptions Disp Refills Lancets lancets 100 Each 11 Sig: Test blood sugar(s) 4 times daily. Dx: Type 2 DM - Uncontrolled E11.65 Insulin: Yes Date of last office visit : 02/21/2022 Date of next office visit : 06/16/2022 Last 2 Encounter Wt Readings: Date: Wt: 03/03/2022 98.1 kg (216 lb 3.2 oz) 02/21/2022 97.5 kg (215 lb) Please advise. Vi Kay Pss documented in this encounterSouthern [facility]01-27-2023 History of Present illness Narrative* Skip Christina Jr., MD - 03/03/2022 1:59 PM EST ESTABLISHED PATIENT VISIT CHIEF COMPLAINT: Sleep Follow Up HISTORY OF PRESENT ILLNESS: Saeid Urbina is a 71 year old female, There were no vitals taken forthis visit. with a PMH significant for and per last office visit note of 10/31/21: 1. Obstructive sleep apnea (adult) (pediatric) - ICD9: 327.23, ICD10: G47.33 (primary diagnosis) 2. Class 2 obesity with body mass index (BMI) of 39.0 to 39.9 in adult, unspecified obesity type, unspecified whether serious comorbidity present - ICD9: 278.00, V85.39, ICD10: E66.9, Z68.39 Patient with known history of SHILPA, but years since last sleep study as above. Now, no longer tolerating PAP despite trying to use nightly. Possible that difficulties with PAP are due to weight loss but also concern for CSA given use of Morphine for pain. Due to these concerns and since it has been so long since prior sleep study, feel appropriate to have patient be evaluate in the sleep lab. Thus, order will be placed for a split night study. Will split if patient has AHI >5 given known history of SHILPA as well as COPD. Pt agrees with plan. Will contact pt once results known and have her follow up 3 months later to determine how new PAP settings are working of her. Sleep study performed at [facility] and reviewed. Per CMS guidelines, the AHI was normal. Note that per AASM guidelines the overall AHI was mild due to REM related events suggesting UARS during REM sleep. Reviewed results with patient. Patient not using PAP. States she sleeps like a log. Does snore occasionally. Feels rested in the AM. Does have overactive bladder that can disrupt sleep. REVIEW OF SYSTEMS GENERAL:No weight loss, malaise or fevers. HEENT:Negative for frequent or significant headaches, No changes in hearing or vision, no nose bleeds or other nasal problems RESPIRATORY: Negative for cough, wheezing or shortness of breath. CARDIOVASCULAR: Negative for chest pain, leg swelling or palpitations. LAB/IMAGING: Those performed since patient's last visit have been reviewed. WBC (k/uL) Date Value 02/21/2022 4.79 RBC (m/uL) Date Value 02/21/2022 4.43 Hemoglobin (g/dL) Date Value 02/21/2022 13.5 Hematocrit (%) Date Value 02/21/2022 41.4 MCV (fL) Date Value 02/21/2022 93.5 MCH (pg) Date Value 02/21/2022 30.5 MCHC (g/dL) Date Value 02/21/2022 32.6 RDW-CV (%) Date Value 02/21/2022 12.9 Platelet Count (k/uL) Date Value 02/21/2022 149 (L) MPV (fL) Date Value 02/21/2022 11.0 Glucose (mg/dL) Date Value 02/21/2022 124 (H) BUN (mg/dL) Date Value 02/21/2022 19 Creatinine (mg/dL) Date Value 02/21/2022 0.93 Sodium (mmol/L) Date Value 02/21/2022 142 Potassium (mmol/L) Date Value 02/21/2022 4.0 Chloride (mmol/L) Date Value 02/21/2022 106 (H) CO2 (mmol/L) Date Value 02/21/2022 26 Protein, Total (g/dL) Date Value 02/21/2022 5.9 (L) Albumin (g/dL) Date Value 02/21/2022 3.9 Calcium, Total (mg/dL) Date Value 02/21/2022 10.3 (H) Alkaline Phosphatase (U/L) Date Value 02/21/2022 100 Bilirubin, Total (mg/dL) Date Value 02/21/2022 0.4 AST (U/L) Date Value 02/21/2022 20 ALT (U/L) Date Value 02/21/2022 24 Rheumatoid Factor (IU/mL) Date Value 02/19/2003 9 Hep C Antibody IA (no units) Date Value 01/20/2015 Negative MEDICATIONS: magnesium oxide (MAG-OX) 400 mg (241.3 mg magnesium) tablet Take 1 tablet by mouth once daily. omeprazole (PRILOSEC) 40 mg capsule Take 1 capsule by mouth once daily Lancets lancets Test blood sugar(s) 4 times daily. Dx: Type 2 DM - Uncontrolled E11.65 Insulin: Yes blood sugar diagnostic (EnerkemUCH ULTRA TEST) test strip TEST ONCE DAILY insulin lispro (HUMALOG KWIKPEN INSULIN) 100 unit/mL Sliding scale during chemotherapy for glucose readings with meals 151 - 200 2 units 201 - 250 4 units 251 - 300 6 units 301 - 350 8 units 351-400 10 units >400 contact office diclofenac (VOLTAREN ARTHRITIS PAIN) 1 % topical gel Apply 2 g to affected area once daily. promethazine (PHENERGAN) 25 mg tablet Take 1 tablet by mouth every 6 hours as needed (For chemotherapy induced nausea). FOR NAUSEA metFORMIN ER (GLUCOPHAGE XR) 500 mg 24 hr tablet TAKE 2 TABLETS DAILY WITH BREAKFAST valsartan (DIOVAN) 160 mg tablet Take 1 tablet by mouth once daily. furosemide (LASIX) 20 mg tablet Take 0.5 tablets by mouth once daily. metoprolol succinate ER (TOPROL XL) 50 mg 24 hr tablet Take 1 tablet by mouth once daily. amLODIPine (NORVASC) 10 mg tablet Take 1 tablet by mouth once daily. insulin needles, DISPOSABLE, (PEN NEEDLE) 31 gauge x 5/16" Use one needle per dose. 3 per day. iv contrast (will be provided with radiology test) CT Chest W -Inject, intravenously, once for 1 dose.No IV access, insert saline lock prior to the beginning of sedation, infusion, injection of imaging exam. Discontinue saline lock post exam. If Pt. has a central line or IVAD, may access for administration according to line specific nursing protocol. Once exam is complete flush line and de-accessaccording to line specific nursing protocol in the CT contrast administration guidelines link. (Patient not taking: Reported on 12/08/2021) iv contrast (will be provided with radiology test) CT ABD/PEL -Inject, intravenously, once for 1 dose.No IV access, insert saline lock prior to the beginning of sedation, infusion, injection of imaging exam. Discontinue saline lock post exam. If Pt. has a central line or IVAD, may access for administration according to line specific nursing protocol. Once exam is complete flush line and de-accessaccording to line specific nursing protocol in the CT contrast administration guidelines link. (Patient not taking: Reported on 12/08/2021) enteric contrast (will be provided with radiology test) For CT ABD/PEL W IVCON Routine order Administer, As Directed One Time Only, via Oral, Rectal, both Oral and Rectal, Enteric Tube, Stoma or Indwelling Catheter, Enteric Contrast as designated per enteric contrast guidelines (Patient not taking:No sig reported) ergocalciferol 50,000 unit capsule (VITAMIN D2, DRISDOL) TAKE 2 CAPSULES A WEEK FOR 8 WEEKS. THEN 1CAPSULE WEEKLY THEREAFTER. tiotropium 2.5 mcg-olodateroL 2.5 mcg/actuation mist for inhalation (STIOLTO RESPIMAT) Inhale 2 Puffs as instructed once daily. lancets (ONE TOUCH DELICA) 33 gauge Test blood sugar(s) 1 daily. Dx: Type 2 DM - Controlled E11.9 Insulin: No loperamide HCl (IMODIUM A-D ORAL) Take by mouth. Prn [DISCONTINUED] Omeprazole Magnesium (PRILOSEC OTC) 20 mg tablet Take 2 tablets by mouth once daily. acetaminophen (TYLENOL) 500 mg tablet Take 1-2 tablets by mouth every 6 hours as needed. lidocaine-prilocaine (EMLA) 2.5-2.5 % cream Apple to port site 60 minutes prior to accessing Fenofibrate (LOFIBRA) 54 mg tablet Take 54 mg by mouth once daily. hydrOXYchloroQUINE (PLAQUENIL) 200 mg tablet Take by mouth once daily. Diclofenac Sodium (SOLARAZE) 3 % gel Apply to affected area three times daily as needed. [place]-3 Fatty Acids 500 mg cap Take 1 capsule by mouth once daily. morphine SR (MS CONTIN, ORAMORPH SR) 15 mg 12 hr tablet Take 15 mg by mouth every 8 hours as needed. CPAP Replace CPAP equipment: Cpap @ 11 cm of water without heated humidification. New Mask (per patient preference) optional chin strap (if indicated), head gear, filters, tubing, humidifier and other supplies. Length of need 12 months, or lifetime if able. Dx: G47.33 (Patient taking differently: Re place CPAP equipment: Cpap @ 11 cm of water without heated humidification. New Mask (per patient preference) optional chin strap (if indicated), head gear, filters, tubing, humidifier and other supplies. Length of need 12 months, or lifetime if able. Dx: G47.33) cyanocobalamin (VITAMIN B-12) 1,000 mcg tab Take 1,000 mcg by mouth once daily. FOLIC ACID 800 MCG TAB Take by mouth once daily. HISTORIES PAST MEDICAL HISTORY Diagnosis Date Benign neoplasm of colon Benign polyps. 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 Lumpectomy, completed radiation 06/27/10. No chemotherapy. Myalgia and myositis, unspecified Obesity, unspecified Obesity Obstructive sleep apnea syndrome 05/24/2015 No longer needs CPAP Pain in joint of right shoulder 09/03/2014 Plantar fascial fibromatosis Seborrheic dermatitis, unspecified Shortness of breath Type II or unspecified type diabetes mellitus without mention of complication, not stated as uncontrolled Unspecified hemorrhoids without mention of complication Hemorrhoids Urinary incontinence overactive bladder FAMILY HISTORY Problem Relation Age of Onset Diabetes Mother Colon Cancer Mother PASSED FROM THIS AT THE AGE OF 62 Heart Father HAD AN NJ IN MID TO LATE 50s, FROM THIS. other (Other) Sister MVA No Known Problems Sister Hypertension Sister Systemic Lupus Erythematosus Sister other (RHUMATOID ARTHRITIS) Sister SAME SISTER HYPERTENSION Cancer Brother Lymphoma. Cancer free for 10 years. Coronary Artery Disease Brother Stent other (Episodes of numbness) Brother having dx testing Colon Cancer Brother Bipolar disorder Daughter Arthritis Daughter Psoriactic other (Epilepsy) Daughter other (cerebral spinal fluid leak) Son other (colitis) Son Autism Grandchild Asthma No Family History Emphysema No Family History Blood Clots No Family History No PE. SOCIAL HISTORY Social History Tobacco Use Smoking status: Never Smokeless tobacco: Never Tobacco comments: Household ETS for 50 years. Vaping Use Vaping Use: Never used Substance Use Topics Alcohol use: No Drug use: No PHYSICAL EXAMINATION There were no vitals taken for this visit. GENERAL EXAM: General appearance: NAD, pleasant. HEENT: NC/AT, nasal congestion absent, no oral lesions, membranes moist. Lungs: CTA bilaterally. No wheezes present. CV: RRR nl S1, S2 NEUROLOGICAL EXAM: General: Awake, alert, oriented x3 (person,place,time), speech fluent, no dysarthria; comprehension, naming, repetition intact. CN: PERRL, EOMI and without nystagmus, VFF to confrontation, facial sensation and strength are normal and symmetric, hearing is intact to finger rub bilaterally, palate and tongue movements are intact and symmetric. SCM and trapezius strength normal. Assessment and Plan: ASSESSMENT/PLAN: 1. UARS (upper airway resistance syndrome) - ICD9: 327.8, ICD10: G47.8 (primary diagnosis) 2. History of obstructive sleep apnea - ICD9: 327.23, ICD10: Z86.69 3. Class 3 severe obesity with body mass index (BMI) of 40.0 to 44.9 in adult, unspecified obesity type, unspecified whether serious comorbidity present (HCC) - ICD9: 278.01, V85.41, ICD10: E66.01, Z68.41 Patient with prior history of SHILPA, but following weight loss, and per most recent PSG as above, AHIhas normalized without other therapy. Discussed and explained to patient and her daughter that she essentially has UARS. She would not want oral appliance. Encouraged positional therapy. Currently nosymptoms to suggest a significant sleep related breathing disorder. She will follow up with us prn if symtoms were to worsen. Encouraged continued weight loss. Skip Christina MD I spent a total of 20+ minutes on the date of the service which included preparing to see the patient, [id number] patient care, completing clinical documentation, obtaining and/or reviewing separately obtained history, performing a medically appropriate examination, independently interpreting resu lts (not separately reported), and communicating results to the patient/family/caregiver. documented in this encounter[facility]01-17-2023 History of Present illness Narrative* Yasemin Connors MD - 02/21/2022 11:36 AM EST Reason for Visit No chief complaint on file. Saeid Urbina is a 71 year old female who presents here today for Above Complaints.. Health Maintenance ALPHA-1 ANTITRYPSIN DEFICIENCY SCREENING DTAP,TDAP,TD(2 - Td or Tdap) COVID-19 VACCINE(4 - Booster for Moderna series) DILATED RETINAL EXAM ADVANCE DIRECTIVE DISCUSSION DEPRESSION ASSESSMENT HPI Patient notes the last 3-4 days constant burning like sensation via the distal portion of her tongue. First noticed upon awakening. Gradual worsening but mild improvement with peroxide gargles. Previous episode in the fall of 2021. Also lasted for 3-4 days. Hx of chronic tongue sores on/off for the last couple of years. Denies any tongue sores at this time. Tongue is mildly swollen and red. Dry mouth in the morning. Small tongue papules visible at the distal end of her tongue - which are tender. Denies any food allergies or intolerances. Denies thrush or any white plaques. Denies any difficulty swallowing with both solids and liquids. Denies ETOH and or personal smoking hx. Second hand smoke for 50 years. Denies any recent medication changes. Denies any new OTC meds. No problem-specific Assessment & Plan notes found for this encounter. PAST MEDICAL HISTORY Diagnosis Date Benign neoplasm of colon Benign polyps. 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 Lumpectomy, completed radiation 06/27/10. No chemotherapy. Myalgia and myositis, unspecified Obesity, unspecified Obesity Obstructive sleep apnea syndrome 05/24/2015 No longer needs CPAP Pain in joint of right shoulder 09/03/2014 Plantar fascial fibromatosis Seborrheic dermatitis, unspecified Shortness of breath Type II or unspecified type diabetes mellitus without mention of complication, not stated as uncontrolled Unspecified hemorrhoids without mention of complication Hemorrhoids Urinary incontinence overactive bladder PAST SURGICAL HISTORY Procedure Laterality Date ADENOIDECTOMY PRIMARY <AGE 10 age 3 Adenoidectomy BX BREAST PERC NEED W/GUID 02/11/2010 U/S Needle core UOQ right breast bx BX/EXC LYMPH NODE OPEN DEEP AXILLARY NODE 03/16/[address] [facility] [address] Dung Mayo CATH IMPL VASC ACCESS PORTAL 03/03/2020 DELIVERY ONLY , low cervical x4 CHOLECYSTECTOMY 01/11/1981 Cholecystectomy COLONOSCOPY 06/21/2021 , repeat in 3 years COLONOSCOPY FLX DX W/COLLJ SPEC WHEN PFRMD 08/30/2001 Colonoscopy COLONOSCOPY FLX DX W/COLLJ SPEC WHEN PFRMD 07/17/2012 Colonoscopy COLONOSCOPY FLX DX W/COLLJ SPEC WHEN PFRMD 12/02/2015 Colonoscopy (Needs MAC next time) COLONOSCOPY GEN ANES 01/16/2020 COLONOSCOPY W/BIOPSY SINGLE/MULTIPLE 06/01/2006 EGD 01/16/2020 EGD FLEX REMOVAL LESION(S) BY HOT BIOPSY FORCEPS 08/30/2001 EGD TRANSORAL BIOPSY SINGLE/MULTIPLE 06/01/2006 EGD TRANSORAL BIOPSY SINGLE/MULTIPLE 12/23/2009 EGD W/O [facility] SPEC VARICIES INJ 06/21/2021 ESOPHAGOGASTRODUODENOSCOPY TRANSORAL DIAGNOSTIC 12/02/2015 EGD IMAGING GUIDED RADIOFREQUENCY LIVER ABLATION 04/2020 ablation IR RADIO FREQUENCY ABLATION 11/2017 LAPAROSCOPIC HEMICOLECTOMY 01/26/2020 LIG/TRNSXJ FLP TUBE ABDL/VAG APPR UNI/BI Tubal ligation MASTECTOMY, PARTIAL 03/16/[address] [facility] [address] Dung Mayo PREOP PLACEMENT NEEDLE LOC 03/16/2010 U/S wire loc UOQ right breast PULMONARY FUNCTION TEST 05/22/2005 SIGMOIDOSCOPY FLX DX W/COLLJ SPEC BR/WA IF PFRMD 04/06/1999 Sigmoidoscopy, flexible TONSILLECTOMY PRIMARY/SECONDARY <AGE 10 age 3 Tonsillectomy FAMILY HISTORY Problem Relation Age of Onset Diabetes Mother Colon Cancer Mother PASSED FROM THIS AT THE AGE OF 62 Heart Father HAD AN NJ IN MID TO LATE 50s, FROM THIS. other (Other) Sister MVA No Known Problems Sister Hypertension Sister Systemic Lupus Erythematosus Sister other (RHUMATOID ARTHRITIS) Sister SAME SISTER HYPERTENSION Cancer Brother Lymphoma. Cancer free for 10 years. Coronary Artery Disease Brother Stent other (Episodes of numbness) Brother having dx testing Colon Cancer Brother Bipolar disorder Daughter Arthritis Daughter Psoriactic other (Epilepsy) Daughter other (cerebral spinal fluid leak) Son other (colitis) Son Autism Grandchild Asthma No Family History Emphysema No Family History Blood Clots No Family History No PE. Social History Tobacco Use Smoking status: Never Smokeless tobacco: Never Tobacco comments: Household ETS for 50 years. Vaping Use Vaping Use: Never used Substance Use Topics Alcohol use: No Drug use: No Past medical history, appointments, medications, allergies reviewed. Pertinent Lab/Diagnostic Studies are reviewed and discussed today Current Outpatient Medications: magnesium oxide (MAG-OX) 400 mg (241.3 mg magnesium) tablet omeprazole (PRILOSEC) 40 mg capsule Lancets lancets blood sugar diagnostic (N-of-OneTOUCH ULTRA TEST) test strip insulin lispro (HUMALOG KWIKPEN INSULIN) 100 unit/mL diclofenac (VOLTAREN ARTHRITIS PAIN) 1 % topical gel promethazine (PHENERGAN) 25 mg tablet metFORMIN ER (GLUCOPHAGE XR) 500 mg 24 hr tablet valsartan (DIOVAN) 160 mg tablet furosemide (LASIX) 20 mg tablet metoprolol succinate ER (TOPROL XL) 50 mg 24 hr tablet amLODIPine (NORVASC) 10 mg tablet insulin needles, DISPOSABLE, (PEN NEEDLE) 31 gauge x 5/16" iv contrast (will be provided with radiology test) iv contrast (will be provided with radiology test) enteric contrast (will be provided with radiology test) ergocalciferol 50,000 unit capsule (VITAMIN D2, DRISDOL) tiotropium 2.5 mcg-olodateroL 2.5 mcg/actuation mist for inhalation (STIOLTO RESPIMAT) lancets (ONE TOUCH DELICA) 33 gauge loperamide HCl (IMODIUM A-D ORAL) acetaminophen (TYLENOL) 500 mg tablet lidocaine-prilocaine (EMLA) 2.5-2.5 % cream Fenofibrate (LOFIBRA) 54 mg tablet hydrOXYchloroQUINE (PLAQUENIL) 200 mg tablet Diclofenac Sodium (SOLARAZE) 3 % gel [place]-3 Fatty Acids 500 mg cap morphine SR (MS CONTIN, ORAMORPH SR) 15 mg 12 hr tablet CPAP cyanocobalamin (VITAMIN B-12) 1,000 mcg tab FOLIC ACID 800 MCG TAB Review of Systems CONSTITUTIONAL: No fevers, chills night sweats, unintended weight loss CARDIOVASCULAR: No chest pain, dyspnea, palpitations, orthopnea, PND, ankle edema. PULM: No dyspnea, unexplained cough. GI: No dysphagia/odynophagia, problematic reflux, constipation, diarrhea, changes in stool habits, hematochezia, melena. : No new urinary complaints, including dysuria, gross hematuria or pyuria. NEURO: No new balance problems, peripheral weakness/paresthesias or numbness of concern. Physical Exam BP 128/70 (BP Site: Left Arm, BP Position: Sitting, BP Cuff Size: Large Adult) Pulse 66 Temp 37.2 C (99 F) Resp 16 Ht 152.4 cm (5') Wt 97.5 kg (215 lb) SpO2 98% BMI 41.99 kg/m General appearance: Well appearing, alert, in no acute distress, well nourished. Skin: Skin color, texture, turgor normal, no suspicious rashes or lesions Tongue: papillitis in the left lateral border and medial border of the tongue Head: Normocephalic, no masses, lesions, tenderness or abnormalities Eyes: Anicteric sclera. Pupils are equally round and reactive to light. Extraocular movements are intact. Lungs: Lungs clear to auscultation. No wheezing, rhonchi, rales Heart: RRR without murmur, gallop, or rubs. Extremities: No deformities, edema, skin discoloration, clubbing or cyanosis. Good capillary refill. ASSESSMENT/PLAN: 1. Burning tongue - ICD9: 529.6, ICD10: K14.6 (primary diagnosis) - VITAMIN B12 BLOOD 2. Optic papillitis of both eyes - ICD9: 377.31, ICD10: H46.03 - VITAMIN B12 BLOOD 3. Vitamin B12 deficiency - ICD9: 266.2, ICD10: E53.8 - VITAMIN B12 BLOOD - CBC + DIFF - COMP METABOLIC PANEL 4. Vitamin D deficiency - ICD9: 268.9, ICD10: E55.9 - VITAMIN D 25 HYDROXY 5. 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) - ICD9: 250.60, 357.2,ICD10: E11.42 - HGB A1C Yasemin Connors MD documented in this encounterSouthern [facility]12-12-2022 History of Present illness Narrative* Shantell Lorenzana MD - 01/16/2022 10:30 AM EST Images from the original note were not included. . Respiratory [place] Note Patient name: Saeid Urbina PCP: Yasemin Connors MD CC: COPD/lung nodule HPI: Saeid Urbina 71 year old morbidly obese female non-smoker with PMH significant for HLD, OSAwas on CPAP (follows with [facility]), DM2, CKD, HTN, GERD, CHF, RA, COPD (second hand smoke exposure), breast cancer ER/MD/HER-2 negative (partial right mastectomy/XRT 2010), and metastatic colon cancer to the liver 2019 (hemicolectomy, s/p FOLFIRI, ablation of liver lesion), pulmonary nodule, former patient of Dr. Aranda. Current therapy with Stiolto Respimat. Using Stiolto every other day, which does seem to help her ROSE. No cough, sputum, wheezing. No history of asthma in past and is a never smoker but had significant second hand exposure to smoke. No recent hospitalizations, bronchitis or pne umonia. Per PA-C note, having issues with CPAP machine. Repeat study showed no significant SHILPA. Lost 80 lbs with surgery and chemotherapy. She is trying to maintain this weight. DATA: PFT: Spirometry shows small airways obstruction and normal diffusion Labs: Component Ref Range & Units 1 mo ago (12/01/21) CEA <=2.9 ng/mL 1.7 Imaging / Diagnostic Studies: DATE OF EXAM: Dec 15 2021 2:23PM [facility] 0539 - CT CHEST W IVCON / PROCEDURE REASON: multiple diagnoses CLINICAL HISTORY: Colon carcinoma Comparison: Type of study and date/time RESULT: Limitations: None. Lines, tubes, and devices: None. Lung parenchyma and airways: Stable 8 mm nodule within the left lung on image 45. No consolidation.No additional or developing pulmonary nodule. The central airways are patent. Pleural space: No pleural effusion. No pleural thickening. Lower neck, lymph nodes, and mediastinum: Stable subcentimeter thyroid nodules. No lymphadenopathy in the supraclavicular, axillary, mediastinal, or hilar regions. Heart, pericardium, and thoracic vessels: The thoracic aorta and main pulmonary artery are normal in caliber. The cardiac chambers are normal in size. No coronary artery atherosclerotic calcifications are noted, although the study is not optimized for coronary assessment. No pericardial effusion orthickening. Bones and soft tissues: No destructive bone lesion. Chest wall is unremarkable. Multilevel degenerative change and osteophytosis Upper abdomen: Scans through the abdomen and pelvis are dictated separately IMPRESSION: Stable left lung nodule. No developing mass or adenopathy in the chest Reviewed images with patient which shows mild mosaic pattern and stable 8 mm KASHIF nodule PAST MEDICAL HISTORY Diagnosis Date Benign neoplasm of colon Benign polyps. 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 Lumpectomy, completed radiation 06/27/10. No chemotherapy. Myalgia and myositis, unspecified Obesity, unspecified Obesity Obstructive sleep apnea syndrome 05/24/2015 No longer needs CPAP Pain in joint of right shoulder 09/03/2014 Plantar fascial fibromatosis Seborrheic dermatitis, unspecified Shortness of breath Type II or unspecified type diabetes mellitus without mention of complication, not stated as uncontrolled Unspecified hemorrhoids without mention of complication Hemorrhoids Urinary incontinence overactive bladder ALLERGIES Allergen Reactions Ciprofloxacin Hives Claritin [Loratadin* Intolerance Dicyclomine Other: See Comments, Unknown E-Mycin [Erythromyc* GI Upset, Itching Gemtesa [Vibegron] Swelling Facial swelling Myrbetriq [Mirabegr* Swelling Naproxen Swelling Feet swelled in 2 days Oruvail [Ketoprofen] Rash Relafen [Nabumetone] swelling Statin [Other] Intolerance joint pain omeprazole (PRILOSEC) 40 mg capsule Take 1 capsule by mouth once daily insulin lispro (HUMALOG KWIKPEN INSULIN) 100 unit/mL Sliding scale during chemotherapy for glucose readings with meals 151 - 200 2 units 201 - 250 4 units 251 - 300 6 units 301 - 350 8 units 351-400 10 units >400 contact office diclofenac (VOLTAREN ARTHRITIS PAIN) 1 % topical gel Apply 2 g to affected area once daily. promethazine (PHENERGAN) 25 mg tablet Take 1 tablet by mouth every 6 hours as needed (For chemotherapy induced nausea). FOR NAUSEA metFORMIN ER (GLUCOPHAGE XR) 500 mg 24 hr tablet TAKE 2 TABLETS DAILY WITH BREAKFAST valsartan (DIOVAN) 160 mg tablet Take 1 tablet by mouth once daily. furosemide (LASIX) 20 mg tablet Take 0.5 tablets by mouth once daily. metoprolol succinate ER (TOPROL XL) 50 mg 24 hr tablet Take 1 tablet by mouth once daily. amLODIPine (NORVASC) 10 mg tablet Take 1 tablet by mouth once daily. ergocalciferol 50,000 unit capsule (VITAMIN D2, DRISDOL) TAKE 2 CAPSULES A WEEK FOR 8 WEEKS. THEN 1CAPSULE WEEKLY THEREAFTER. tiotropium 2.5 mcg-olodateroL 2.5 mcg/actuation mist for inhalation (STIOLTO RESPIMAT) Inhale 2 Puffs as instructed once daily. magnesium oxide (MAG-OX) 400 mg (241.3 mg magnesium) tablet Take 1 tablet by mouth once daily. loperamide HCl (IMODIUM A-D ORAL) Take by mouth. Prn acetaminophen (TYLENOL) 500 mg tablet Take 1-2 tablets by mouth every 6 hours as needed. lidocaine-prilocaine (EMLA) 2.5-2.5 % cream Apple to port site 60 minutes prior to accessing Fenofibrate (LOFIBRA) 54 mg tablet Take 54 mg by mouth once daily. hydrOXYchloroQUINE (PLAQUENIL) 200 mg tablet Take by mouth once daily. Diclofenac Sodium (SOLARAZE) 3 % gel Apply to affected area three times daily as needed. [place]-3 Fatty Acids 500 mg cap Take 1 capsule by mouth once daily. morphine SR (MS CONTIN, ORAMORPH SR) 15 mg 12 hr tablet Take 15 mg by mouth every 8 hours as needed. cyanocobalamin (VITAMIN B-12) 1,000 mcg tab Take 1,000 mcg by mouth once daily. FOLIC ACID 800 MCG TAB Take by mouth once daily. Lancets lancets Test blood sugar(s) 4 times daily. Dx: Type 2 DM - Uncontrolled E11.65 Insulin: Yes blood sugar diagnostic (ONETOUCH ULTRA TEST) test strip TEST ONCE DAILY insulin needles, DISPOSABLE, (PEN NEEDLE) 31 gauge x 5/16" Use one needle per dose. 3 per day. iv contrast (will be provided with radiology test) CT Chest W -Inject, intravenously, once for 1 dose.No IV access, insert saline lock prior to the beginning of sedation, infusion, injection of imaging exam. Discontinue saline lock post exam. If Pt. has a central line or IVAD, may access for administration according to line specific nursing protocol. Once exam is complete flush line and de-accessaccording to line specific nursing protocol in the CT contrast administration guidelines link. (Patient not taking: Reported on 12/08/2021) iv contrast (will be provided with radiology test) CT ABD/PEL -Inject, intravenously, once for 1 dose.No IV access, insert saline lock prior to the beginning of sedation, infusion, injection of imaging exam. Discontinue saline lock post exam. If Pt. has a central line or IVAD, may access for administration according to line specific nursing protocol. Once exam is complete flush line and de-accessaccording to line specific nursing protocol in the CT contrast administration guidelines link. (Patient not taking: Reported on 12/08/2021) enteric contrast (will be provided with radiology test) For CT ABD/PEL W IVCON Routine order Administer, As Directed One Time Only, via Oral, Rectal, both Oral and Rectal, Enteric Tube, Stoma or Indwelling Catheter, Enteric Contrast as designated per enteric contrast guidelines (Patient not taking:No sig reported) lancets (ONE TOUCH DELICA) 33 gauge Test blood sugar(s) 1 daily. Dx: Type 2 DM - Controlled E11.9 Insulin: No [DISCONTINUED] Omeprazole Magnesium (PRILOSEC OTC) 20 mg tablet Take 2 tablets by mouth once daily. CPAP Replace CPAP equipment: Cpap @ 11 cm of water without heated humidification. New Mask (per patient preference) optional chin strap (if indicated), head gear, filters, tubing, humidifier and other supplies. Length of need 12 months, or lifetime if able. Dx: G47.33 (Patient taking differently: Re place CPAP equipment: Cpap @ 11 cm of water without heated humidification. New Mask (per patient preference) optional chin strap (if indicated), head gear, filters, tubing, humidifier and other supplies. Length of need 12 months, or lifetime if able. Dx: G47.33) Social History Tobacco Use Smoking status: Never Smokeless tobacco: Never Tobacco comments: Household ETS for 50 years. Vaping Use Vaping Use: Never used Substance Use Topics Alcohol use: No Drug use: No Pets: dog FAMILY HISTORY Problem Relation Age of Onset Diabetes Mother Colon Cancer Mother PASSED FROM THIS AT THE AGE OF 62 Heart Father HAD AN [place] IN MID TO LATE 50s, FROM THIS. other (Other) Sister MVA No Known Problems Sister Hypertension Sister Systemic Lupus Erythematosus Sister other (RHUMATOID ARTHRITIS) Sister SAME SISTER HYPERTENSION Cancer Brother Lymphoma. Cancer free for 10 years. Coronary Artery Disease Brother Stent other (Episodes of numbness) Brother having dx testing Colon Cancer Brother Bipolar disorder Daughter Arthritis Daughter Psoriactic other (Epilepsy) Daughter other (cerebral spinal fluid leak) Son other (colitis) Son Autism Grandchild Asthma No Family History Emphysema No Family History Blood Clots No Family History No PE. PAST SURGICAL HISTORY Procedure Laterality Date ADENOIDECTOMY PRIMARY <AGE 10 age 3 Adenoidectomy BX BREAST PERC NEED W/GUID 02/11/2010 U/S Needle core UOQ right breast bx BX/EXC LYMPH NODE OPEN DEEP AXILLARY NODE 03/16/[address] [facility] [address] Dung Mayo CATH IMPL VASC ACCESS PORTAL 03/03/2020 DELIVERY ONLY , low cervical x4 CHOLECYSTECTOMY 01/11/1981 Cholecystectomy COLONOSCOPY 06/21/2021 , repeat in 3 years COLONOSCOPY FLX DX W/COLLJ SPEC WHEN PFRMD 08/30/2001 Colonoscopy COLONOSCOPY FLX DX W/COLLJ SPEC WHEN PFRMD 07/17/2012 Colonoscopy COLONOSCOPY FLX DX W/COLLJ SPEC WHEN PFRMD 12/02/2015 Colonoscopy (Needs MAC next time) COLONOSCOPY GEN ANES 01/16/2020 COLONOSCOPY W/BIOPSY SINGLE/MULTIPLE 06/01/2006 EGD 01/16/2020 EGD FLEX REMOVAL LESION(S) BY HOT BIOPSY FORCEPS 08/30/2001 EGD TRANSORAL BIOPSY SINGLE/MULTIPLE 06/01/2006 EGD TRANSORAL BIOPSY SINGLE/MULTIPLE 12/23/2009 [facility] 06/21/2021 ESOPHAGOGASTRODUODENOSCOPY TRANSORAL DIAGNOSTIC 12/02/2015 EGD IMAGING GUIDED RADIOFREQUENCY LIVER ABLATION 04/2020 ablation IR RADIO FREQUENCY ABLATION 11/2017 LAPAROSCOPIC HEMICOLECTOMY 01/26/2020 LIG/TRNSXJ FLP TUBE ABDL/VAG APPR UNI/BI Tubal ligation MASTECTOMY, PARTIAL 03/16/[address] [facility] [address] Dung Mayo PREOP PLACEMENT NEEDLE LOC 03/16/2010 U/S wire loc UOQ right breast PULMONARY FUNCTION TEST 05/22/2005 SIGMOIDOSCOPY FLX DX W/COLLJ SPEC BR/WA IF PFRMD 04/06/1999 Sigmoidoscopy, flexible TONSILLECTOMY PRIMARY/SECONDARY <AGE 10 age 3 Tonsillectomy PMH, Social history, family history and surgical history reviewed and updated. REVIEW OF SYSTEMS: CONSTITUTIONAL: No fevers, chills, nightsweats, unintended weight loss HEENT: Denies nasal congestion/sinus symptoms, allergy problems. CARDIOVASCULAR: No chest pain, palpitations, orthopnea, PND. Chronic edema PULM: See HPI. GI: No dysphagia/odynophagia, problematic reflux, constipation, diarrhea, changes in stool habits, hematochezia, melena. : Urinary incontinence/overactive bladder NEURO: No new balance problems, peripheral weakness/paresthesias or numbness of concern. MUSC-SKEL: No new joint pain, swelling, or erythema. PSY: No concerns regarding depression, anxiety INTEGUMENTARY: No new skin changes or rashes PHYSICAL EXAMINATION: BP 128/78 General Appearance: Morbidly obese female, NAD Skin: Skin color, texture, turgor normal, no suspicious rashes or lesions. Head: Normocephalic, no masses, lesions, tenderness or abnormalities. Eyes: Sclera, conjunctiva normal Oropharynx: Dentition, no oral lesions or thrush Neck: No masses, no thyromegaly, no adenopathy Lungs: Not labored, normal to percussion, no wheezes or crackles Heart: Distant heart tones, regular rate and rhythm, no murmurs Extremities: Mild edema, no clubbing Assessment/Plan: 1. Solitary pulmonary nodule -No change -At risk for metastatic colon cancer to lung, being monitored by Dr. Vallejo 2. Mild COPD -Recommend daily use of Stiolto -Up to date with vaccinations including seasonal flu shot 3. Morbid obesity -Class 3 obesity, BMI 42 -Further weight loss advised Shantell Lorenzana MD Respiratory [place] [facility] History of Present illness Narrative* LO Mckeon - 01/16/2022 10:01 AM EST PULM FUNCTION SMARTBLOCK: Provider: Vi Smart PA-C Assisting Tech: LO Mckeon Spirometry: 1 DLCO: 1 [facility] Miscellaneous Notes* Telephone Encounter - Koki Bro CANDELARIO - 01/16/2022 8:58 AM EST Patient has been identified by name and date of : Yes Patient phones for refill(s): Requested Prescriptions Pending Prescriptions Disp Refills magnesium oxide (MAG-OX) 400 mg (241.3 mg magnesium) tablet 90 tablet 3 Sig: Take 1 tablet by mouth once daily. Date of last office visit in primary care: 12/09/2021 Last 2 Encounter Wt Readings: Date: Wt: 12/09/2021 99.3 kg (219 lb) 12/01/2021 100.7 kg (222 lb) Previous labs/tests for medication: Not applicable Please advise. Thank you. Koki Bro CANDELARIO * Telephone Encounter - Vi Kay Pss - 01/16/2022 8:55 AM EST Pharmacy verified in [facility] Patient has been identified by name and date of : Yes Patient aware RX will be sent to pharmacy. No need to notify patient. Patient phones for refill(s): Requested Prescriptions Pending Prescriptions Disp Refills magnesium oxide (MAG-OX) 400 mg (241.3 mg magnesium) tablet 90 tablet 3 Sig: Take 1 tablet by mouth once daily. Date of last office visit : 12/09/2021 Date of next office visit : 06/16/2022 Last 2 Encounter Wt Readings: Date: Wt: 12/09/2021 99.3 kg (219 lb) 12/01/2021 100.7 kg (222 lb) Not applicable Please advise. Vi Kay Pss [facility] Miscellaneous Notes* Telephone Encounter - Koki Crabtree LPN - 12/19/2021 4:12 PM EST Patient has been identified by name and date of : Yes Patient phones for refill(s): Requested Prescriptions Pending Prescriptions Disp Refills Lancets lancets 100 Each 11 Sig: Test blood sugar(s) 4 times daily. Dx: Type 2 DM - Uncontrolled E11.65 Insulin: Yes Date of last office visit in primary care: 12/09/2021 Last 2 Encounter Wt Readings: Date: Wt: 12/09/2021 99.3 kg (219 lb) 12/01/2021 100.7 kg (222 lb) Previous labs/tests for medication: Diabetes: Hemoglobin A1C (%) Date Value 12/07/2020 6.7 08/27/2020 6.4 Hemoglobin A1C (POCT) (%) Date Value 12/09/2021 6.2 09/06/2021 6.1 Please advise. Thank you. Koki Crabtree LPN * Telephone Encounter - Sonya Riberasec - 12/19/2021 11:55 AM EST Patient has been identified by name and date of : Yes Requested Prescriptions Pending Prescriptions Disp Refills Lancets lancets 100 Each 11 Sig: Test blood sugar(s) 4 times daily. Dx: Type 2 DM - Uncontrolled E11.65 Insulin: Yes RX INSTRUCTIONS: This will need to see sent locally to [facility] as [facility] no longer fills this type of RX Patient aware RX will be sent to pharmacy. No need to notify patient. Sonya Riberasec documented [facility]11-[facility]22 Miscellaneous Notes* Telephone Encounter - ARY Galvez - 12/15/2021 3:43 PM EST TC to patient with providers message below. Pt verbalizes understanding and will keep scheduled appointment to further discuss. ARY Galvez * Telephone Encounter - Skip Christina Jr., MD - 12/15/2021 3:10 PM EST Per report received the AHI was normal and the study did not show evidence of sleep apnea. Skip Christina MD * Telephone Encounter - Leatha Love LPN - 12/15/2021 9:54 AM EST Patient is calling regarding results of sleep study and the the need for a C-PAP machine. She does have a follow up scheduled 03/03/22 but was hoping to get started on C- PAP prior to that appointment. Asking that script be sent to [facility]. [facility]22 Miscellaneous Notes* Telephone Encounter - Koki Crabtree LPN - 12/13/2021 4:15 PM EST Patient has been identified by name and date of : Yes Patient phones for refill(s): Requested Prescriptions Pending Prescriptions Disp Refills blood sugar diagnostic (ONETOUCH ULTRA TEST) test strip 100 Strip 3 Sig: TEST ONCE DAILY Date of last office visit in primary care: 12/09/2021 Last 2 Encounter Wt Readings: Date: Wt: 12/09/2021 99.3 kg (219 lb) 12/01/2021 100.7 kg (222 lb) Previous labs/tests for medication: Diabetes: Hemoglobin A1C (%) Date Value 12/07/2020 6.7 08/27/2020 6.4 Hemoglobin A1C (POCT) (%) Date Value 12/09/2021 6.2 09/06/2021 6.1 Please advise. Thank you. Koki Crabtree LPN * Telephone Encounter - Irene Mac - 12/13/2021 9:14 AM EST Patient said [facility] told her they cannot fill her scripts for test strips and lancets because they are available OTC. She was shocked by this and said she wants the scripts sent to [facility] to see if they can fill it .Said she has never heard of lancets and test strips being available OTC. * Telephone Encounter - Irene Mac - 12/13/2021 9:13 AM EST Patient has been identified by name and date of : Yes Requested Prescriptions Pending Prescriptions Disp Refills blood sugar diagnostic (ONETOUCH ULTRA TEST) test strip 100 Strip 3 Sig: TEST ONCE DAILY RX INSTRUCTIONS: Patient requesting a call when RX is approved and sent to the pharmacy. Please call patient at: [phone] Irene Mac documented [facility]11-[facility]22 History of Present illness Narrative* Yasemin Connors MD - 12/09/2021 3:14 PM EDT Reason for Visit Patient presents with: F/U Diabetes 3 Month Immunizations: Flu vaccination Saeid Urbina is a 70 year old female who presents here today for Above Complaints. Health Maintenance ALPHA-1 ANTITRYPSIN DEFICIENCY SCREENING DTAP,TDAP,TD(2 - Td or Tdap) COVID-19 VACCINE(4 - Booster for Moderna series) ADVANCE DIRECTIVE DISCUSSION DEPRESSION ASSESSMENT DILATED RETINAL EXAM BP CONTROLLED (<130/80) HPI Left side of the body is larger than the right and this has been going on for the past 30 years. Her left knee has been giving her pain in the past few years and recently got the get injection andshe has felt much better since. She will consider knee replacement much later. Copd : seeing Pulm and her medication is optimized, she feels better on current regimen, more comfortable with the breathing on stioloto, she is not as sob as she was in the past.] For Diabetes Mellitus she is on metformin and insulin , checks sugars at least once a day Hba1c was 6.2, fasting usually runs less than 140. Patient usually does not use that much insulin. Patient had it for a while. Reviewed blood work , her anemia is resolved, lipids are normal, she continues the lofibra and the lipids Patient is being seen for arthritis every where by Df HTN: Compliant with medications. Denies any chest pain, palpitations, or edema. No SOB. Doesn't check BP at home generally. Careful with diet to avoid salt, trying to eat more fruits and vegetables, exercises regularly. Patient notes they had seen Dr martins in October. Patient was getting decent numbers. Uses her sleep machine regularly, she finally got for sleep study and they are ordering a new machine. 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 Patient got her washer done recently,they do dishes No problem-specific Assessment & Plan notes found for this encounter. PAST MEDICAL HISTORY Diagnosis Date Benign neoplasm of colon Benign polyps. 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 Lumpectomy, completed radiation 06/27/10. No chemotherapy. Myalgia and myositis, unspecified Obesity, unspecified Obesity Obstructive sleep apnea syndrome 05/24/2015 Pain in joint of right shoulder 09/03/2014 Plantar fascial fibromatosis Seborrheic dermatitis, unspecified Shortness of breath Type II or unspecified type diabetes mellitus without mention of complication, not stated as uncontrolled Unspecified hemorrhoids without mention of complication Hemorrhoids PAST SURGICAL HISTORY Procedure Laterality Date ADENOIDECTOMY PRIMARY <AGE 10 age 3 Adenoidectomy BX BREAST PERC NEED W/GUID 02/11/2010 U/S Needle core UOQ right breast bx BX/EXC LYMPH NODE OPEN DEEP AXILLARY NODE 03/16/2010 RIGHT - [facility] Dr. Dung Mayo CATH IMPL VASC ACCESS PORTAL 03/03/2020 DELIVERY ONLY , low cervical x4 CHOLECYSTECTOMY 01/11/1981 Cholecystectomy COLONOSCOPY 06/21/2021 , repeat in 3 years COLONOSCOPY FLX DX W/COLLJ SPEC WHEN PFRMD 08/30/2001 Colonoscopy COLONOSCOPY FLX DX W/COLLJ SPEC WHEN PFRMD 07/17/2012 Colonoscopy COLONOSCOPY FLX DX W/COLLJ SPEC WHEN PFRMD 12/02/2015 Colonoscopy (Needs MAC next time) COLONOSCOPY GEN ANES 01/16/2020 COLONOSCOPY W/BIOPSY SINGLE/MULTIPLE 06/01/2006 EGD 01/16/2020 EGD FLEX REMOVAL LESION(S) BY HOT BIOPSY FORCEPS 08/30/2001 EGD TRANSORAL BIOPSY SINGLE/MULTIPLE 06/01/2006 EGD TRANSORAL BIOPSY SINGLE/MULTIPLE 12/23/2009 EGD W/O [facility] SPEC VARICIES INJ 06/21/2021 ESOPHAGOGASTRODUODENOSCOPY TRANSORAL DIAGNOSTIC 12/02/2015 EGD IMAGING GUIDED RADIOFREQUENCY LIVER ABLATION 04/2020 ablation IR RADIO FREQUENCY ABLATION 11/2017 LAPAROSCOPIC HEMICOLECTOMY 01/26/2020 LIG/TRNSXJ FLP TUBE ABDL/VAG APPR UNI/BI Tubal ligation MASTECTOMY, PARTIAL 03/16/2010 RIGHT - [facility] Dr. Dung Mayo PREOP PLACEMENT NEEDLE LOC 03/16/2010 U/S wire loc UOQ right breast PULMONARY FUNCTION TEST 05/22/2005 SIGMOIDOSCOPY FLX DX W/COLLJ SPEC BR/WA IF PFRMD 04/06/1999 Sigmoidoscopy, flexible TONSILLECTOMY PRIMARY/SECONDARY <AGE 10 age 3 Tonsillectomy FAMILY HISTORY Problem Relation Age of Onset Diabetes Mother Colon Cancer Mother PASSED FROM THIS AT THE AGE OF 62 Heart Father HAD AN [place] IN MID TO LATE 50s, FROM THIS. other (Other) Sister MVA No Known Problems Sister Hypertension Sister Systemic Lupus Erythematosus Sister other (RHUMATOID ARTHRITIS) Sister SAME SISTER HYPERTENSION Cancer Brother Lymphoma. Cancer free for 10 years. Coronary Artery Disease Brother Stent other (Episodes of numbness) Brother having dx testing Colon Cancer Brother Bipolar disorder Daughter Arthritis Daughter Psoriactic other (Epilepsy) Daughter other (cerebral spinal fluid leak) Son other (colitis) Son Autism Grandchild Asthma No Family History Emphysema No Family History Blood Clots No Family History No PE. Social History Tobacco Use Smoking status: Never Smokeless tobacco: Never Tobacco comments: Household ETS for 50 years. Vaping Use Vaping Use: Never used Substance Use Topics Alcohol use: No Drug use: No Past medical history, appointments, medications, allergies reviewed. Pertinent Lab/Diagnostic Studies are reviewed and discussed today Current Outpatient Medications: diclofenac (VOLTAREN ARTHRITIS PAIN) 1 % topical gel promethazine (PHENERGAN) 25 mg tablet omeprazole (PRILOSEC) 40 mg capsule metFORMIN ER (GLUCOPHAGE XR) 500 mg 24 hr tablet valsartan (DIOVAN) 160 mg tablet furosemide (LASIX) 20 mg tablet metoprolol succinate ER (TOPROL XL) 50 mg 24 hr tablet amLODIPine (NORVASC) 10 mg tablet insulin needles, DISPOSABLE, (PEN NEEDLE) 31 gauge x 5/16" iv contrast (will be provided with radiology test) iv contrast (will be provided with radiology test) enteric contrast (will be provided with radiology test) ergocalciferol 50,000 unit capsule (VITAMIN D2, DRISDOL) tiotropium 2.5 mcg-olodateroL 2.5 mcg/actuation mist for inhalation (STIOLTO RESPIMAT) magnesium oxide (MAG-OX) 400 mg (241.3 mg magnesium) tablet blood sugar diagnostic (N-of-OneTOUCH ULTRA TEST) test strip lancets (ONE TOUCH DELICA) 33 gauge loperamide HCl (IMODIUM A-D ORAL) insulin lispro (HUMALOG KWIKPEN INSULIN) 100 unit/mL acetaminophen (TYLENOL) 500 mg tablet lidocaine-prilocaine (EMLA) 2.5-2.5 % cream Fenofibrate (LOFIBRA) 54 mg tablet hydrOXYchloroQUINE (PLAQUENIL) 200 mg tablet Diclofenac Sodium (SOLARAZE) 3 % gel [place]-3 Fatty Acids 500 mg cap morphine SR (MS CONTIN, ORAMORPH SR) 15 mg 12 hr tablet CPAP cyanocobalamin (VITAMIN B-12) 1,000 mcg tab FOLIC ACID 800 MCG TAB Review of Systems CONSTITUTIONAL: No fevers, chills night sweats, unintended weight loss CARDIOVASCULAR: No chest pain, dyspnea, palpitations, orthopnea, PND, ankle edema. PULM: No dyspnea, unexplained cough. GI: No dysphagia/odynophagia, problematic reflux, constipation, diarrhea, changes in stool habits, hematochezia, melena. : No new urinary complaints, including dysuria, gross hematuria or pyuria. NEURO: No new balance problems, peripheral weakness/paresthesias or numbness of concern. Physical Exam BP 110/70 (BP Site: Left Arm, BP Position: Sitting, BP Cuff Size: Large Adult) Pulse 64 Temp 36.3 C (97.4 F) Resp 16 Ht 157.5 cm (5' 2") Wt 99.3 kg (219 lb) SpO2 97% BMI 40.06 kg/m General appearance: Well appearing, alert, in no acute distress, well nourished. Skin: Skin color, texture, turgor normal, no suspicious rashes or lesions Head: Normocephalic, no masses, lesions, tenderness or abnormalities Eyes: Anicteric sclera. Pupils are equally round and reactive to light. Extraocular movements are intact. Lungs: Lungs clear to auscultation. No wheezing, rhonchi, rales Heart: RRR without murmur, gallop, or rubs. Extremities: No deformities, edema, skin discoloration, clubbing or cyanosis. Good capillary refill. ASSESSMENT/PLAN: 1. 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) - ICD9: 250.60, 357.2,ICD10: E11.42 (primary diagnosis) Controlled. - Continue current medications - HEMOGLOBIN A1C (POC) - INSULIN LISPRO (U-100) 100 UNIT/ML SUBCUTANEOUS PEN - EnerkemUCH ULTRA TEST STRIPS - LANCETS - HGB A1C - COMP METABOLIC PANEL - CBC - TSH BLD - LIPID PANEL BASIC 2. Need for influenza vaccination - ICD9: V04.81, ICD10: Z23 - INFLUENZA SEASONAL QUADRIVALENT HIGH DOSE AGE 65+ 3. 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) - ICD9: 404.91, 428.32, 585.3, 428.0, ICD10: I13.0, I50.32, N18.31 - good control - Recommended regular aerobic exercise. - Recommend home blood pressure monitoring, to bring results in on next visit - Goal of BP <130/80 - eGFR: Stable - Counseled on avoiding regular use of NSAIDs, adequate hydration, potential risk of IV dye 4. SHILPA on CPAP - ICD9: 327.23, V46.8, ICD10: G47.33, Z99.8 stable 5. Hypertension goal BP (blood pressure) < 150/90 - ICD9: 401.9, ICD10: I10 - good control - Recommended regular aerobic exercise. - Recommend home blood pressure monitoring, to bring results in on next visit - Goal of BP <130/80 Yasemin Connors MD [facility] Nurse Note* Koki Crabtree LPN - 12/09/2021 2:39 PM EDT seen last month - yearly exam currently documented in [facility] Instructions* Patient Instructions* Patricia Deluca - 12/08/2021 11:49 AM EDT Diabetes Foot Care Instructions When you have diabetes, proper foot care is very important. Poor foot care may lead to amputation of a foot or leg. As a person with diabetes, you are more vulnerable to foot problems, because diabetes can damage your nerves and reduce blood flow to your feet. Here are some diabetes foot care tips to follow: Wash and Dry Your Feet Daily Use mild soaps Use warm water Pat your skin dry; do not rub. Thoroughly dry your feet. After washing, use lotion on your feet to prevent cracking. Do not put lotion between your toes. Examine Your Feet Each Day Check the tops and bottoms of your feet. Have someone else look at your feet if you cannot see them. Check for dry, cracked skin. Look for blisters, cuts, scratches, or other sores. Check for redness, increased warmth, or tenderness when touching any area of your feet. Check for ingrown toenails, corns, and calluses. If you get a blister or sore from your shoes, do not "pop" it. Apply a bandage and wear a differentpair of shoes. Take Care of Your Toenails Cut toenails after bathing, when they are soft. Cut toenails straight across and smooth with a nail file. Avoid cutting into the corners of toes. Do not cut cuticles. If you have neuropathy (or decreased sensation in your feet) a head start assistant teacher should always cut your toenails. Be Careful When Exercising Walk and exercise in comfortable shoes. Do not exercise when you have open sores on your feet. Protect Your Feet With Shoes and Socks Never go barefoot. Always protect your feet by wearing shoes or hard-soled slippers or footwear. Avoid shoes with high heels and pointed toes. Avoid shoes that expose your toes or heels (such as open-toed shoes or sandals). These types of shoes increase your risk for injury and potential infections. Try on new footwear with the type of socks you usually wear. Do not wear new shoes for more than an hour at a time. Change your socks daily. Look and feel inside your shoes before putting them on to make sure there are no foreign objects orrough areas. Avoid tight socks. Wear natural-fiber socks (cotton, wool, or a cotton-wool blend). Wear special shoes if your health care provider recommends them. Wear shoes/boots that will protect your feet from various weather conditions (cold, moisture, etc.). Make sure your shoes fit properly. If you have neuropathy (nerve damage), you may not notice that your shoes are too tight. Perform the "footwear test" described below. Footwear Test Use this simple test to see if your shoes fit correctly: Stand on a piece of paper. (Make sure you are standing and not sitting, because your foot changes shape when you stand.) Trace the outline of your foot. Trace the outline of your shoe. Compare the tracings: Is the shoe too narrow? Is your foot crammed into the shoe? The shoe should be at least 1/2 inch longer than your longest toe and as wide as your foot. Proper Shoe Choices The following types of shoes are best for people with diabetes Closed toes and heels Leather uppers without a seam inside At least 1/2 inch extra space at the end of your longest toe Inside of shoe should be soft with no rough areas Outer sole should be made of stiff material Shoes should be at least as wide as your feet Tips for Foot Care in Diabetes Don't wait to treat a minor foot problem if you have diabetes. Follow your health care provider's guidelines and first aid guidelines. Report foot injuries and infections to your health care provider immediately. Check water temperature with your elbow, not your foot. Do not use a heating pad on your feet. Do not cross your legs. Do not self-treat your corns, calluses, or other foot problems. Go to your health care provider or head start assistant teacher to treat these conditions. documented [facility] History of Present illness Narrative* Patricia Deluca - 12/08/2021 11:43 AM EDT Images from the original note were not included. Subjective: This 70 year old female presents to clinic for diabetic foot check. Patient has the following complaints: neuropathic pain. Patient states the pain comes and goes. She does not do anything for the pain. Patient admits to being diabetic for 23-24 years now. Patient +B/T/N in feet at thistime. Patient -pain in legs when walking. No other pedal complaints at this time. No change in medications or medical history since last visit. PAIN EVALUATION 12/08/2021 1123 Pain Level: 10 Pain Location: Other: See Comment B/L feet Description: Aching Duration Amount of Time: 6 Duration Units: Months Frequency: Intermittent Intervention/Comfort measure: Relaxation;Reposition;Medication Hemoglobin A1C (%) Date Value 12/07/2020 6.7 08/27/2020 6.4 04/14/2020 6.0 12/22/2019 6.0 06/10/2019 6.0 Hemoglobin A1C (POCT) (%) Date Value 09/06/2021 6.1 06/06/2021 6.4 PCP: Yasemin Connors MD PAST MEDICAL HISTORY Diagnosis Date Benign neoplasm of colon Benign polyps. 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 Lumpectomy, completed radiation 06/27/10. No chemotherapy. Myalgia and myositis, unspecified Obesity, unspecified Obesity Obstructive sleep apnea syndrome 05/24/2015 Pain in joint of right shoulder 09/03/2014 Plantar fascial fibromatosis Seborrheic dermatitis, unspecified Shortness of breath Type II or unspecified type diabetes mellitus without mention of complication, not stated as uncontrolled Unspecified hemorrhoids without mention of complication Hemorrhoids Current Outpatient Medications Medication Sig promethazine (PHENERGAN) 25 mg tablet Take 1 tablet by mouth every 6 hours as needed (For chemotherapy induced nausea). FOR NAUSEA omeprazole (PRILOSEC) 40 mg capsule Take 1 capsule by mouth once daily. metFORMIN ER (GLUCOPHAGE XR) 500 mg 24 hr tablet TAKE 2 TABLETS DAILY WITH BREAKFAST valsartan (DIOVAN) 160 mg tablet Take 1 tablet by mouth once daily. furosemide (LASIX) 20 mg tablet Take 0.5 tablets by mouth once daily. metoprolol succinate ER (TOPROL XL) 50 mg 24 hr tablet Take 1 tablet by mouth once daily. amLODIPine (NORVASC) 10 mg tablet Take 1 tablet by mouth once daily. insulin needles, DISPOSABLE, (PEN NEEDLE) 31 gauge x 5/16" Use one needle per dose. 3 per day. ergocalciferol 50,000 unit capsule (VITAMIN D2, DRISDOL) TAKE 2 CAPSULES A WEEK FOR 8 WEEKS. THEN 1CAPSULE WEEKLY THEREAFTER. tiotropium 2.5 mcg-olodateroL 2.5 mcg/actuation mist for inhalation (STIOLTO RESPIMAT) Inhale 2 Puffs as instructed once daily. magnesium oxide (MAG-OX) 400 mg (241.3 mg magnesium) tablet Take 1 tablet by mouth once daily. blood sugar diagnostic (EnerkemUCH ULTRA TEST) test strip TEST ONCE DAILY lancets (ONE TOUCH DELICA) 33 gauge Test blood sugar(s) 1 daily. Dx: Type 2 DM - Controlled E11.9 Insulin: No loperamide HCl (IMODIUM A-D ORAL) Take by mouth. Prn insulin lispro (HUMALOG KWIKPEN INSULIN) 100 unit/mL Sliding scale during chemotherapy for glucose readings with meals 151 - 200 2 units 201 - 250 4 units 251 - 300 6 units 301 - 350 8 units 351-400 10 units >400 contact office acetaminophen (TYLENOL) 500 mg tablet Take 1-2 tablets by mouth every 6 hours as needed. lidocaine-prilocaine (EMLA) 2.5-2.5 % cream Apple to port site 60 minutes prior to accessing Fenofibrate (LOFIBRA) 54 mg tablet Take 54 mg by mouth once daily. hydrOXYchloroQUINE (PLAQUENIL) 200 mg tablet Take by mouth once daily. Diclofenac Sodium (SOLARAZE) 3 % gel Apply to affected area three times daily as needed. [place]-3 Fatty Acids 500 mg cap Take 1 capsule by mouth once daily. morphine SR (MS CONTIN, ORAMORPH SR) 15 mg 12 hr tablet Take 15 mg by mouth every 8 hours as needed. CPAP Replace CPAP equipment: Cpap @ 11 cm of water without heated humidification. New Mask (per patient preference) optional chin strap (if indicated), head gear, filters, tubing, humidifier and other supplies. Length of need 12 months, or lifetime if able. Dx: G47.33 (Patient taking differently: Re place CPAP equipment: Cpap @ 11 cm of water without heated humidification. New Mask (per patient preference) optional chin strap (if indicated), head gear, filters, tubing, humidifier and other supplies. Length of need 12 months, or lifetime if able. Dx: G47.33) cyanocobalamin (VITAMIN B-12) 1,000 mcg tab Take 1,000 mcg by mouth once daily. FOLIC ACID 800 MCG TAB Take by mouth once daily. iv contrast (will be provided with radiology test) CT Chest W -Inject, intravenously, once for 1 dose.No IV access, insert saline lock prior to the beginning of sedation, infusion, injection of imaging exam. Discontinue saline lock post exam. If Pt. has a central line or IVAD, may access for administration according to line specific nursing protocol. Once exam is complete flush line and de-accessaccording to line specific nursing protocol in the CT contrast administration guidelines link. (Patient not taking: Reported on 12/08/2021) iv contrast (will be provided with radiology test) CT ABD/PEL -Inject, intravenously, once for 1 dose.No IV access, insert saline lock prior to the beginning of sedation, infusion, injection of imaging exam. Discontinue saline lock post exam. If Pt. has a central line or IVAD, may access for administration according to line specific nursing protocol. Once exam is complete flush line and de-accessaccording to line specific nursing protocol in the CT contrast administration guidelines link. (Patient not taking: Reported on 12/08/2021) enteric contrast (will be provided with radiology test) For CT ABD/PEL W IVCON Routine order Administer, As Directed One Time Only, via Oral, Rectal, both Oral and Rectal, Enteric Tube, Stoma or Indwelling Catheter, Enteric Contrast as designated per enteric contrast guidelines (Patient not taking:No sig reported) No current facility-administered medications for this visit. ALLERGIES Allergen Reactions Ciprofloxacin Hives Claritin [Loratadin* Intolerance Dicyclomine Other: See Comments, Unknown E-Mycin [Erythromyc* GI Upset, Itching Gemtesa [Vibegron] Swelling Facial swelling Myrbetriq [Mirabegr* Swelling Naproxen Swelling Feet swelled in 2 days Oruvail [Ketoprofen] Rash Relafen [Nabumetone] swelling Statin [Other] Intolerance joint pain PAST SURGICAL HISTORY Procedure Laterality Date ADENOIDECTOMY PRIMARY <AGE 10 age 3 Adenoidectomy BX BREAST PERC NEED W/GUID 02/11/2010 U/S Needle core UOQ right breast bx BX/EXC LYMPH NODE OPEN DEEP AXILLARY NODE 03/16/[address] [facility] [address] Dung Mayo CATH IMPL VASC ACCESS PORTAL 03/03/2020 DELIVERY ONLY , low cervical x4 CHOLECYSTECTOMY 01/11/1981 Cholecystectomy COLONOSCOPY 06/21/2021 , repeat in 3 years COLONOSCOPY FLX DX W/COLLJ SPEC WHEN PFRMD 08/30/2001 Colonoscopy COLONOSCOPY FLX DX W/COLLJ SPEC WHEN PFRMD 07/17/2012 Colonoscopy COLONOSCOPY FLX DX W/COLLJ SPEC WHEN PFRMD 12/02/2015 Colonoscopy (Needs MAC next time) COLONOSCOPY GEN ANES 01/16/2020 COLONOSCOPY W/BIOPSY SINGLE/MULTIPLE 06/01/2006 EGD 01/16/2020 EGD FLEX REMOVAL LESION(S) BY HOT BIOPSY FORCEPS 08/30/2001 EGD TRANSORAL BIOPSY SINGLE/MULTIPLE 06/01/2006 EGD TRANSORAL BIOPSY SINGLE/MULTIPLE 12/23/2009 [facility] 06/21/2021 ESOPHAGOGASTRODUODENOSCOPY TRANSORAL DIAGNOSTIC 12/02/2015 EGD IMAGING GUIDED RADIOFREQUENCY LIVER ABLATION 04/2020 ablation IR RADIO FREQUENCY ABLATION 11/2017 LAPAROSCOPIC HEMICOLECTOMY 01/26/2020 LIG/TRNSXJ FLP TUBE ABDL/VAG APPR UNI/BI Tubal ligation MASTECTOMY, PARTIAL 03/16/[address] [facility] [address] Dung Mayo PREOP PLACEMENT NEEDLE LOC 03/16/2010 U/S wire loc UOQ right breast PULMONARY FUNCTION TEST 05/22/2005 SIGMOIDOSCOPY FLX DX W/COLLJ SPEC BR/WA IF PFRMD 04/06/1999 Sigmoidoscopy, flexible TONSILLECTOMY PRIMARY/SECONDARY <AGE 10 age 3 Tonsillectomy FAMILY HISTORY Problem Relation Age of Onset Diabetes Mother Colon Cancer Mother PASSED FROM THIS AT THE AGE OF 62 Heart Father HAD AN [place] IN MID TO LATE 50s, FROM THIS. other (Other) Sister MVA No Known Problems Sister Hypertension Sister Systemic Lupus Erythematosus Sister other (RHUMATOID ARTHRITIS) Sister SAME SISTER HYPERTENSION Cancer Brother Lymphoma. Cancer free for 10 years. Coronary Artery Disease Brother Stent other (Episodes of numbness) Brother having dx testing Colon Cancer Brother Bipolar disorder Daughter Arthritis Daughter Psoriactic other (Epilepsy) Daughter other (cerebral spinal fluid leak) Son other (colitis) Son Autism Grandchild Asthma No Family History Emphysema No Family History Blood Clots No Family History No PE. Social History Tobacco Use Smoking status: Never Smokeless tobacco: Never Tobacco comments: Household ETS for 50 years. Vaping Use Vaping Use: Never used Substance Use Topics Alcohol use: No Drug use: No REVIEW OF SYSTEMS GENERAL: Negative for Malaise, significant weight loss, fever RESPIRATORY: Negative for cough, wheezing and shortness of breath CARDIOVASCULAR: Negative for chest pain, leg swelling and palpitations GI: Negative for abdominal discomfort, blood in stools or black stools and change in bowel habits : Negative for dysuria, frequency and incontinence MUSCULOSKELETAL: Negative for joint pain or swelling, back pain, and muscle pain. SKIN: Negative for lesions, rash, and itching. HEMATOLOGY/LYMPHOLOGY Negative for prolonged bleeding, bruising easily, and swollen nodes. ENDOCRINE: Negative for cold or heat intolerance, polyuria, polydipsia and goiter. NEURO: negative The remainder of the review of systems is noncontributory. Objective: Patient presents to clinic ambulating in diabetic shoes Constitutional: Pt is a well developed 70 year old female who is alert, oriented, cooperative and in no apparent distress. Eyes: Following during examination. No redness or drainage. Respiratory: RR normal and nonlabored. Even breathing. No evidence of distress. Psychology: Patient is engaged during conversation. Normal affect and mood. Does not appear depressed or anxious. Vasc: DP and PT pulses are palpable bilateral. CFT is less than 5 seconds bilateral. Skin temperature is warm to warm proximal to distal bilateral. There is mild edema or varicosities noted. Hair growth present. Neuro: Protective sensation is intact to the foot and toes when tested with the 5.07 SWM bilateral.Vibratory sensation is decreased at the hallux bilateral. + Significant neurological defecits. Derm: Inspection and palpation performed. Nails 1-5 b/l are normal in length and thickness. Skin isof normal turgor and texture. Hyperkeratosis noted to not present. NO ulcerations, scars, verruca or other lesions noted. Ortho: Ankle joint DF is full with the knee extended and full with knee flexed. No pain or crepitusnoted. STJ, MTJ ROM are full and free of pain or crepitus. Muscle strength is 5/5 for dorsiflexors,plantarflexors, inverters, everters. Digital deformities include pes planus. Assessment: (E08.41) Diabetic mononeuropathy associated with diabetes mellitus due to underlying condition (HCC) (primary encounter diagnosis) (M21.41, M21.42) Pes planus of both feet Plan: 1. Patient was seen and evaluated. 2. Patient was instructed on the continued importance of diabetic foot care along with proper diet and keeping their blood sugar under control to prevent complications. Instructions given both oral and written. 3. Discussed pain in foot. Will order new shoes with inserts 4. Recommend voltaren gel 5. F/u in 1 year or sooner if problems arise. Patricia Deluca DPM * Joana Lara RN - 12/08/2021 11:23 AM EDT AMB ROOMING INTAKE FLOWSHEET DATA Risk Screening Do you have concerns about personal safety or safety in the home?: No Pain Pain Level: 10 Pain Location: Other: See Comment (B/L feet) Description: Aching Duration Amount of Time: 6 Duration Units: Months Frequency: Intermittent Intervention/Comfort measure: Relaxation, Reposition, Medication Patient presents with: Left Foot - Established Patient, Diabetic Foot Check Right Foot - Established Patient, Diabetic Foot Check [facility] Miscellaneous Notes* Telephone Encounter - Palak Cunha LPN - 12/01/2021 4:52 PM EDT Prior authorization submitted for John , awaiting decision. Fax response to skinny Cunha CLINICAL LIAISON documented in [facility] History of Present illness Narrative* Geneva Ramos APRN.ADMINISTRATIVE PROCESSOR - 12/01/2021 11:17 AM EDT Chief Complaint Patient presents with: Established Patient HPI: Saeid Urbina is a 70 year old female who presents here today for follow up colon cancer. Per Dr. 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 Patient developed symptoms of dyspepsia including upper abdominal discomfort and postprandial nausea. She also had early satiety and had been noted to have weight loss over the preceding 6 months. She underwent a colonoscopy and was observed to have a near obstructing lesion in the mid transverse colon highly suspicious for malignancy. The scope could not be advanced past this lesion. A clip was placed. Biopsies were performed but evidently nondiagnostic. CT A/P 01/19/2020: Liver: No mass. Biliary: The gallbladder is absent. There is mild dilation of the common bile duct/common hepatic duct. Spleen: No mass. No splenomegaly. Pancreas: No mass or duct dilation. Adrenals: No mass. Kidneys: 2-3 mm tiny attenuations in the bilateral kidneys, too small to progress. There appear to be a few parapelvic cyst. No hydronephrosis. GI tract: A 3 cm bowel wall thickening with narrowing of the lumen noted in the transverse colon, in appearance of apple core, concerning for malignancy. No bowel obstruction. Some fecal retention is noted. Lymph nodes: No abdominal or pelvic lymphadenopathy. Mesentery/Peritoneum: No ascites or mass or free abdominal air. Retroperitoneum: No mass. Vasculature: The celiac axis and SMA are patent. The portal vein and branches, splenic vein, SMV, and hepatic veins are patent. Pelvis: No mass, ascites or fluid collection. Bones/Soft Tissues: A 2 cm hyperdensity noted in the right anterior abdominal wall, likely presenting injection granuloma. There is a 2.5 x 3.8 cm fat-containing paraumbilical hernia. The spine shows degenerative changes with multilevel disc space narrowing. No definite destructive bony lesions seen. Lower thorax: No pleural effusions. Mild atelectatic changes noted in the right middle lobe and lingula. Field Account Director (topogram) images: No additional findings. Patient was admitted to [facility] on 01/26/2020. She underwent a laparoscopic colectomy partial right hemicolectomy and laparoscopic liver biopsy onthe same day. Pathology: FINAL DIAGNOSIS 1. Right colon, terminal ileum, and appendix, extended right hemicolectomy (A): - Adenocarcinoma involving transverse colon and extending into pericolonic soft tissue, margins negative (see synoptic). - Metastatic adenocarcinoma in one lymph node (02/18). 2. Liver, biopsy (B): Metastatic adenocarcinoma, consistent with colorectal origin. COMMENT Immunohistochemistry was performed on the liver biopsy, and tumor cells strongly express CDX2 and CK7, while CK20 is negative. The features are consistent with metastatic spread of the patient's colorectal adenocarcinoma. SYNOPTIC REPORT OF MAE PATHOLOGIC FINDINGS EXTENDED RIGHT COLON: COLON AND RECTUM:RESECTION, INCLUDING TRANSANAL DISK EXCISION OF RECTAL NEOPLASMS WORKSHEET: Procedure: Right hemicolectomy Tumor Site: Transverse colon Tumor Size: Greatest dimension: 3.5 cm Macroscopic Tumor Perforation: Not identified Macroscopic Intactness of Mesorectum: Not applicable Histologic Type: Adenocarcinoma Histologic Grade: G2: Moderately differentiated Tumor Extension: Tumor invades through the muscularis propria into pericolorectal tissue Margins: All margins are uninvolved by invasive carcinoma, high-grade dysplasia, intramucosal adenocarcinoma, and adenoma Margins examined: proximal, distal, radial, mesenteric Proximal Margin: Uninvolved by invasive carcinoma Distal Margin: Uninvolved by invasive carcinoma Circumferential Radial Margin: Uninvolved by invasive carcinoma Mesenteric Margin: Uninvolved by invasive carcinoma Treatment Effect: No known presurgical therapy Lymphovascular Invasion: Present Perineural Invasion: Present Type of Polyp in which Invasive Carcinoma Arose: Tubular adenoma Tumor Deposits: Not identified Regional Lymph Nodes: Number of nodes involved: 1 Number of nodes examined: 14 Pathologic Stage Classification (pTNM,AJCC 8th ed) TNM Descriptors: Not applicable Pathologic Staging (pTNM): pT3: Tumor invades through the muscularis propria into pericolorectal tissues Regional Lymph Nodes (pN): pN1a: One regional lymph node is positive Distant Metastasis (pM): pM1: Metastasis to one or more distant sites or organs or peritoneal metastasis is identified --------- Had MRI of the liver as well as CT scan of chest, abdomen pelvis. Underwent PET scan which suggested liver only metastasis. Laparoscopic microwave ablation of liver metastasis under ultrasound guidance on 04/23/2020. Previous therapy: 1) Adjuvant FOLFIRI. Completed 12 cycles as of 01/24/2021. Had egd/colonoscopy in June [address] Pérez. Next due in 3 years. Pt. here today with her daughter. Pt. is having nausea about every 10 days. I have thrown up before but as soon as I feel nauseated I take a phenergan and it stops it." Appetite:"Good." Wt. up Energy level:"Not the best." Denies fevers or recent illness. Resp:denies cough or sob Cardiac:denies chest pain/palpitations GI:denies abd pain, occ. nausea as above, denies vomiting recently, occ. constipation :denies dysuria/hematuria Extrem:chronic hand/knee/low back pain-followed Dr. Wang and pain mgmt. 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 Past medical history, appointments, medications, allergies reviewed. No changes. EXAM: BP (P) 151/67 Pulse (!) (P) 54 Temp 36.6 C (97.8 F) Wt 100.7 kg (222 lb) BMI 40.60 kg/m APPEARANCE Well appearing, alert, in no acute distress, well-hydrated, well nourished. HEART RRR with normal S1 and S2, no murmurs LUNG clear to auscultation LYMPH NODES No cervical lymphadenopathy, No supraclavicular lymphadenopathy, and No axillary lymphadenopathy. ABDOMEN bowel sounds normoactive, soft, non-tender, non-distended, without organomegaly or palpablemasses EXTREMITIES No edema NEURO Awake, alert and oriented x 3, Normal gait, and No involuntary motions. SKIN Skin color, texture, turgor normal, no suspicious rashes or lesions LABS: Component Latest Ref Rng & Units 03/28/2021 07/26/2021 12/01/2021 WBC 3.70 - 11.00 k/uL 5.11 8.72 5.50 RBC 3.90 - 5.20 m/uL 3.87 (L) 4.17 4.08 Hemoglobin 11.5 - 15.5 g/dL 12.2 12.7 12.4 Hematocrit 36.0 - 46.0 % 36.6 37.3 37.1 MCV 80.0 - 100.0 fL 94.6 89.4 90.9 MCH 26.0 - 34.0 pg 31.5 30.5 30.4 MCHC 30.5 - 36.0 g/dL 33.3 34.0 33.4 RDW-CV 11.5 - 15.0 % 12.6 13.3 12.8 Platelet Count 150 - 400 k/uL 153 156 154 MPV 9.0 - 12.7 fL 11.1 10.6 10.7 Neut% % 58.4 74.7 65.5 Abs Neut (ANC) 1.45 - 7.50 k/uL 2.98 6.51 3.61 Lymph% % 25.8 14.8 21.5 Abs Lymph 1.00 - 4.00 k/uL 1.32 1.29 1.18 Cottle% % 12.7 8.4 10.0 Abs Cottle <0.87 k/uL 0.65 0.73 0.55 Eosin% % 2.3 1.1 1.5 Abs Eosin <0.46 k/uL 0.12 0.10 0.08 Baso% % 0.8 0.2 0.4 Abs Baso <0.11 k/uL 0.04 <0.03 <0.03 Immature Gran % % 0.8 1.1 IMMATURE GRANS (ABS) <0.10 k/uL 0.07 0.06 NRBC /100 WBC 0.0 0.0 Absolute nRBC <0.01 k/uL <0.01 <0.01 <0.01 DTYPE Auto Auto Nucleated Reds 0 /100 WBC 0.0 Diff Type Auto Diff BMP/Hep. func/CEA: Pending ASSESSMENT/PLAN: 1. Malignant neoplasm of transverse colon (HCC) - ICD9: 153.1, ICD10: C18.4 (primary diagnosis) 2. Metastases to the liver (HCC) - ICD9: 197.7, ICD10: C78.7 3. Lung nodules - ICD9: 793.19, ICD10: R91.[address] Vallejo's previous note 03/30/21: Assessment: -In summary the patient is a 70-year-old female who was diagnosed with metastatic adenocarcinoma the transverse colon after presenting with a several month history of early satiety and dyspepsia characterized by upper abdominal pain and postprandial nausea. Initial CT scan demonstrated an apple core filling defect in the transverse colon. During surgery, an approximate 1 cm nodule was appreciatedon the liver. Biopsy tissue was consistent with metastatic adenocarcinoma the colon. CTs revealed asuspicious 8 x 6 mm KASHIF lung nodule. MRI suggested a single liver metastasis. Side branch pancreatic IPMNs. -Laparoscopic microwave ablation of liver metastasis under ultrasound guidance on 04/23/2020. -NRAS mutated. -MMR proficient. -HER2 negative. -She had pre-existing sensory neuropathy manifested as numbness in both toes and her ability to walk was compromised by chronic low back and knee pain--uses walker. -The 8 mm nodule in left upper lobe was suspicious but it was not a proven site of metastatic disease. SBRT could be considered for that at some point in the future. -Has now completed 12 cycles of adjuvant FOLFIRI. -Reviewed the results of the CT scans in detail. Stable pulmonary nodules. Unchanged 8 mm nodule inleft adrenal gland dating back to 2009. Stable 1 cm short axis lymph node in the portacaval area. Diffusely hypoattenuating area of capsular retraction with heterogeneous enhancement and decreasing peripheral hyperdensity in keeping with posttreatment changes in the liver. Plan: -Due for colonoscopy. -Labs/CTs then OV in about 4 months. -Continue management under chronic pain management for arthritis and chronic low back pain. - No concerning findings on exam. Nausea as above. - Reviewed CBC with pt. and daughter. - BMP/Hep. func/CEA pending. - Needs CT chest/abd/pelvis. - Needs port flushes. - Follow up in 4 months CBC/BMP/LFT's/CEA. - Pt. aware to call office with any questions/concerns. The patient indicates understanding of these issues and agrees with the plan. All documentation from previous visit of 07/29/21-Dr. Vallejo/myself was copied and pasted, documentation has been reviewed and edited as necessary for today's visit. Geneva Ramos APRN.MARGO documented in this [facility]22 Nurse Note* Palak Cunha LPN - 12/01/2021 11:11 AM EDT Est. Pt, discuss recent lab results, 4 month f/u Palak Cunha LPN documented [facility] this [facility] Miscellaneous Notes* Telephone Encounter - ARY Galvez - 11/29/2021 2:07 PM EDT Results of patients overnight PSG received from [facility]. Original sent to scanning with copy placed on providers desk for review on his return to office. ARY Galvez documented in this [facility]-10-2022 Miscellaneous Notes* Telephone Encounter - Estefani Willard APRN.CNP - 11/14/2021 3:50 PM EDT When results received please place on Dr. Arriaga desk to review at upcoming appointment. Thank you Estefani Willard APRN.MARGO * Telephone Encounter - Shital Moser LPN - 11/14/2021 3:27 PM EDT Patient calling to report she did have Sleep Study done at [facility] 11/11/2021. Shital Moser LPN documented in this [facility]09-30-2022 Miscellaneous Notes* Telephone Encounter - Lynette Keita RN - 11/04/2021 10:30 AM EDT Patient calls to ask if provider would be willing to write a letter to [employer] stating her daughter (Lisa Urbina) is her career transition specialist and assists patient to all appointments. Patient reports that it is for patient to continue getting her SNAP benefit (food stamps). Patient requesting letter today for appointment today with [employer]. Call back number to reach patient is [phone]. Lynette Keita RN documented in this [facility]09-30-2022 Miscellaneous Notes* Telephone Encounter - Palak Cunha LPN - 11/04/2021 10:21 AM EDT Spoke with pt. She stated our social insurance administrator had contacted her and informed that her PCP needs to doletter. Pt. Voiced understanding. Palak Cunha LPN * Telephone Encounter - Rina Holm RN - 11/04/2021 8:59 AM EDT Spoke to Dr. Vallejo regarding this; please refer patient to her PCP for letter. Patient is currentlyon surveillance and not on active treatment. Thank you. Rina Holm RN * Telephone Encounter - Sera Flor - 11/03/2021 1:11 PM EDT Patient calling to check on the status of the letter mentioned below. She states that this needs andrew delivered by tomorrow for her daughter's food stamps. Please contact the patient once the letteris completed. Thank you. * Telephone Encounter - Vi Arriaga - 10/27/2021 11:25 AM EDT Pt calling to request a letter stating that pts daughter Lisa Urbina is her supervisor core drilling and assists with appts for pt. She needs this for her food stamp program recertification. documented in this [facility]09-[facility]-2022 Miscellaneous Notes* Telephone Encounter - Shital Romero LPN - 10/31/2021 10:30 AM EDT Order and pertinent information faxed to the [facility] sleep disorder lab for patient to have Pap Titration PSG completed there. Patient to update NEUR office when procedure scheduled. Shital Romero LPN documented in this encounter[facility]09-08-2022 History of Present illness Narrative* Vi Smart PA-C - 10/13/2021 1:30 PM EDT [facility] [place], 10/13/2021: Name: Saeid Urbina : 1950 The patient is here today with Lisa, daughter, who attends the entire visit, exam and discussion. 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 The patient is here for follow up of COPD. Since the last Pulmonary Clinic visit 04/07/2021, the patient has not required ED care for exacerbation. There has been no hospital admission for exacerbation. Claims to be consistently compliant with prescribed maintenance Rx Stiolto 2 inhalations daily. Not requiring rescue bronchodilator use. No cough. No sputum or hemoptysis. No wheezing since starting Stiolto. No dyspnea at rest. Exertional dyspnea significantly improved since starting Stiolto and being moreactive. Chronic lower extremity edema. Currently not wearing PAP. Reports her machine broke. She has an appointment scheduled with Dr. Christina in November. PMH: Updated with patient today. FAMH: Updated with patient today. SOCH: Updated with patient today. IMMUNIZATIONS Prevnar - 01/26/2014 Pneumovax - 01/25/2015, 11/26/2007 Influenza - 12/06/2020 COVID-19 - 09/28/2020, 07/08/2020, 05/13/2020 ROS: General: Generally feels well. Appetite good. Eyes, Ears, nose, throat: No post nasal drip, rhinorrhea, purulent nasal discharge, epistaxis. No hoarseness. Vision stable. Cardiac: No angina, orthopnea. Resp: See HPI. GI: No heartburn, dysphagia, diarrhea. Musculoskeletal: Chronic pain. Neuro: No headache, focal weakness, tremor. Skin: No rash. Otherwise negative. Allergies were reviewed and updated, and medications were reconciled with the patient. PHYSICAL EXAMINATION: BP (P) 132/80 Pulse (P) 60 Resp (P) 15 SpO2 (P) 97% Gen: No acute distress. Cooperative with examination. ENT: Oral hygeine and dentition good. Pharynx clear. No halitosis. Resp: No stridor, accessory respiratory muscle use, supra-sternal or intercostal retractions. No wheezes, crackles. CV: Regular rythm. Heart tones normal. Radial pulses normal. Abd: Non distended. MSK: No kyphoscoliosis. Ext: Warm and well perfused. No clubbing, cyanosis, edema. Skin: No rash, ecchymoses. Neuro: Mental status normal. Affect normal. No tremor. DATA REVIEW: DATE: 01/12/2021 08/02/2018 04/02/2018 FVC 1.96, 81% 2.29, 79% 2.32, 80% FEV1 1.44, 76% 1.58, 72% 1.57, 71% +8% post BD FEV1/FVC 0.73 0.69 0.68 TLC xx xx 4.44 , 91% DLco 16.71, 89% xx xx CT chest, 07/26/2021 IMPRESSION: No significant interval change. RESULT: Limitations: None. Lines, tubes, and devices: None. Lung parenchyma and airways: Stable 8 mm LEFT upper lobe nodule and 3 mm RIGHT upper lobe nodule. Pleural space: No pleural effusion. No pleural thickening. Lower neck, lymph nodes, and mediastinum: The imaged thyroid gland is normal. No lymphadenopathy in the supraclavicular, axillary, mediastinal, or hilar regions. Heart, pericardium, and thoracic vessels: The thoracic aorta and main pulmonary artery are normal in caliber. The cardiac chambers are normal in size. No coronary artery atherosclerotic calcifications are noted, although the study is not optimized for coronary assessment. No pericardial effusion or thickening. Bones and soft tissues: No destructive bone lesion. Chest wall is unremarkable. Upper abdomen: CT abdomen pelvis dictated separately ASSESSMENT/PLAN: 1. COPD (chronic obstructive pulmonary disease) with chronic bronchitis (HCC) - ICD9: 491.20, ICD10: J44.9 (primary diagnosis) Symptomatically doing well on Stiolto. Need updated PFTs. Albuterol HFA inhaler, 2 inhalations 10-15 minutes prior to activities associated with shortness ofbreath, and as needed for rescue relief of shortness of breath or wheezing, up to 4 times daily. Up to date on pneumococcal and Covid 19 vaccines. Recommend annual influenza vaccine, ideally between November 19 and December 20. - SPIROMETRY BASELINE ONLY - LUNG DIFFUSION CAPACITY (DLCO) 2. SHILPA (obstructive sleep apnea) - ICD9: 327.23, ICD10: G47.33 Last PSG in 2005 at [facility] Patient typically compliant with PAP therapy, however, machine has broken. Will obtain updated PSG/titration - POLYSOMNOGRAM (PSG) - PAP TITRATION PSG (CPAP, BIPAP, ASV) 3. Lung nodule - ICD9: 793.11, ICD10: R91.[address] chest September, Stable on current CT chest July 2021. Further imaging per oncology. I addressed the questions of the patient and daughter, and they expressed understanding and acceptance of my answers. Vi Smart PA-C documented in this encounter[facility]08-18-2022 Miscellaneous Notes* Telephone Encounter - Sera Flor - 09/22/2021 10:04 AM EDT Patient has been identified by name and date of : Yes Last office visit in this department: 10/27/2013 RX INSTRUCTIONS: Patient aware RX will be sent to pharmacy. No need to notify patient. Patient phones requesting refills as follows: Requested Prescriptions Pending Prescriptions Disp Refills omeprazole (PRILOSEC) 40 mg capsule 30 capsule 2 Sig: Take 1 capsule by mouth once daily. Please review and advise. Sera Flor documented in this [facility]08-02-2022 History of Present illness Narrative* Yasemni Connors MD - 09/06/2021 2:13 PM EDT Reason for Visit Patient presents with: Established Patient: 3 month follow up- dm Saeid Urbina is a 70 year old female who presents here today for Above Complaints. 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 ablation in the liver, and she had chem otherapy. She had around 3 months of chemo therapy, patient says she was late getting started with the chemo therapy. She is now done with all her treatment and is given permission to have knee replacements. Never smoker but has copd. Currently knees are an issue- the knees hurt her, when she gets up to walk they hurt her. Sometimesthe pain goes down to the legs. She walks with a walker, out side, at home she does not need it as her house is small and she always finds something to lean on, She is considering Dr joshi for her replacement. Lives with her daughter who took care of her during her surgery. Patient took care of herself well and a lot. for copd she is seeing Pulm and her medication is optimized, she feels better on current regimen, more comfortable with the breathing on stioloto, she is not as sob as she was in the past. Right now her knees are the worst that they have been. She had a colonoscopy and then a scan and then knee replacement. Seeing Dr Brown for knee arthritis and she is getting steroids there. Needs refills of lasix, for her legs. She is not using her sleep machine currently - she is not sure if she is not working right or some adjustment needs to be done a she is just not feeling it is the right setting for her. She was tried on myrbetriq for urinary incontinence, but has an allergy to it And will try gemtesa. Diabetes Mellitus: her hba1c is better than before at 6.1, down from 6.4 Rheumatoid arthritis is being addressed with plaquenil. Patient has not had a sleep study for a long time. She has an appointment coming up in November. No problem-specific Assessment & Plan notes found for this encounter. PAST MEDICAL HISTORY Diagnosis Date Benign neoplasm of colon Benign polyps. 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 Lumpectomy, completed radiation 06/27/10. No chemotherapy. Myalgia and myositis, unspecified Obesity, unspecified Obesity Obstructive sleep apnea syndrome 05/24/2015 Pain in joint of right shoulder 09/03/2014 Plantar fascial fibromatosis Seborrheic dermatitis, unspecified Shortness of breath Type II or unspecified type diabetes mellitus without mention of complication, not stated as uncontrolled Unspecified hemorrhoids without mention of complication Hemorrhoids PAST SURGICAL HISTORY Procedure Laterality Date ADENOIDECTOMY PRIMARY <AGE 10 age 3 Adenoidectomy BX BREAST PERC NEED W/GUID 02/11/2010 U/S Needle core UOQ right breast bx BX/EXC LYMPH NODE OPEN DEEP AXILLARY NODE 03/16/2010 [facility] - [facility] Dr. Dung Mayo CATH IMPL VASC ACCESS PORTAL 03/03/2020 DELIVERY ONLY , low cervical x4 CHOLECYSTECTOMY 01/11/1981 Cholecystectomy COLONOSCOPY 06/21/2021 COLONOSCOPY FLX DX W/COLLJ SPEC WHEN PFRMD 08/30/2001 Colonoscopy COLONOSCOPY FLX DX W/COLLJ SPEC WHEN PFRMD 07/17/2012 Colonoscopy COLONOSCOPY FLX DX W/COLLJ SPEC WHEN PFRMD 12/02/2015 Colonoscopy (Needs MAC next time) COLONOSCOPY GEN ANES 01/16/2020 COLONOSCOPY W/BIOPSY SINGLE/MULTIPLE 06/01/2006 EGD 01/16/2020 EGD FLEX REMOVAL LESION(S) BY HOT BIOPSY FORCEPS 08/30/2001 EGD TRANSORAL BIOPSY SINGLE/MULTIPLE 06/01/2006 EGD TRANSORAL BIOPSY SINGLE/MULTIPLE 12/23/2009 EGD W/O BRSH SPEC VARICIES INJ 06/21/2021 ESOPHAGOGASTRODUODENOSCOPY TRANSORAL DIAGNOSTIC 12/02/2015 EGD IMAGING GUIDED RADIOFREQUENCY LIVER ABLATION 04/2020 ablation IR RADIO FREQUENCY ABLATION 11/2017 LAPAROSCOPIC HEMICOLECTOMY 01/26/2020 LIG/TRNSXJ FLP TUBE ABDL/VAG APPR UNI/BI Tubal ligation MASTECTOMY, PARTIAL 03/16/2010 RIGHT - [facility] Dr. Dung Mayo PREOP PLACEMENT NEEDLE LOC 03/16/2010 U/S wire loc UOQ right breast PULMONARY FUNCTION TEST 05/22/2005 SIGMOIDOSCOPY FLX DX W/COLLJ SPEC BR/WA IF PFRMD 04/06/1999 Sigmoidoscopy, flexible TONSILLECTOMY PRIMARY/SECONDARY <AGE 10 age 3 Tonsillectomy FAMILY HISTORY Problem Relation Age of Onset Diabetes Mother Colon Cancer Mother PASSED FROM THIS AT THE AGE OF 62 Heart Father HAD AN [place] IN MID TO LATE 50s, FROM THIS. other (Other) Sister MVA No Known Problems Sister Hypertension Sister Systemic Lupus Erythematosus Sister other (RHUMATOID ARTHRITIS) Sister SAME SISTER HYPERTENSION Cancer Brother Lymphoma. Cancer free for 10 years. Coronary Artery Disease Brother Stent other (Episodes of numbness) Brother having dx testing Colon Cancer Brother Bipolar disorder Daughter Arthritis Daughter Psoriactic other (Epilepsy) Daughter other (cerebral spinal fluid leak) Son other (colitis) Son Autism Grandchild Asthma No Family History Emphysema No Family History Blood Clots No Family History No PE. Social History Tobacco Use Smoking status: Never Smoker Smokeless tobacco: Never Used Tobacco comment: Household ETS for 50 years. Vaping Use Vaping Use: Never used Substance Use Topics Alcohol use: No Drug use: No Past medical history, appointments, medications, allergies reviewed. Pertinent Lab/Diagnostic Studies are reviewed and discussed today Current Outpatient Medications: metFORMIN ER (GLUCOPHAGE XR) 500 mg 24 hr tablet valsartan (DIOVAN) 160 mg tablet omeprazole (PRILOSEC) 40 mg capsule vibegron (GEMTESA) 75 mg tablet furosemide (LASIX) 20 mg tablet metoprolol succinate ER (TOPROL XL) 50 mg 24 hr tablet amLODIPine (NORVASC) 10 mg tablet insulin needles, DISPOSABLE, (PEN NEEDLE) 31 gauge x 5/16" Bisacodyl (DULCOLAX) 5 mg tab ergocalciferol 50,000 unit capsule (VITAMIN D2, DRISDOL) tiotropium 2.5 mcg-olodateroL 2.5 mcg/actuation mist for inhalation (STIOLTO RESPIMAT) magnesium oxide (MAG-OX) 400 mg (241.3 mg magnesium) tablet blood sugar diagnostic (N-of-OneTOUCH ULTRA TEST) test strip lancets (ONE TOUCH DELICA) 33 gauge loperamide HCl (IMODIUM A-D ORAL) promethazine (PHENERGAN) 25 mg tablet insulin lispro (HUMALOG KWIKPEN INSULIN) 100 unit/mL acetaminophen (TYLENOL) 500 mg tablet lidocaine-prilocaine (EMLA) 2.5-2.5 % cream Fenofibrate (LOFIBRA) 54 mg tablet hydrOXYchloroQUINE (PLAQUENIL) 200 mg tablet Diclofenac Sodium (SOLARAZE) 3 % gel [place]-3 Fatty Acids (FISH OIL) 500 mg cap morphine SR (MS CONTIN, ORAMORPH SR) 15 mg 12 hr tablet CPAP cyanocobalamin (VITAMIN B-12) 1,000 mcg tab FOLIC ACID 800 MCG TAB iv contrast (will be provided with radiology test) iv contrast (will be provided with radiology test) enteric contrast (will be provided with radiology test) Review of Systems CONSTITUTIONAL: No fevers, chills night sweats, unintended weight loss CARDIOVASCULAR: No chest pain, dyspnea, palpitations, orthopnea, PND, ankle edema. PULM: No dyspnea, unexplained cough. GI: No dysphagia/odynophagia, problematic reflux, constipation, diarrhea, changes in stool habits, hematochezia, melena. : No new urinary complaints, including dysuria, gross hematuria or pyuria. NEURO: No new balance problems, peripheral weakness/paresthesias or numbness of concern. Physical Exam BP 118/60 (BP Site: Left Arm, BP Position: Sitting, BP Cuff Size: Large Adult) Pulse 64 Temp 37.1 C (98.7 F) Resp 18 Ht 157.5 cm (5' 2") Wt 98.9 kg (218 lb) SpO2 96% BMI 39.87 kg/m General appearance: Well appearing, alert, in no acute distress, well nourished. Skin: Skin color, texture, turgor normal, no suspicious rashes or lesions Head: Normocephalic, no masses, lesions, tenderness or abnormalities Eyes: Anicteric sclera. Pupils are equally round and reactive to light. Extraocular movements are intact. Lungs: Lungs clear to auscultation. No wheezing, rhonchi, rales Heart: RRR without murmur, gallop, or rubs. Extremities: No deformities, edema, skin discoloration, clubbing or cyanosis. Good capillary refill. ASSESSMENT/PLAN: 1. Arthritis of knee - ICD9: 716.96, ICD10: M17.10 (primary diagnosis) She would like to see Dr Joshi - CONSULT TO ORTHOPAEDICS 2. Type 2 diabetes mellitus with diabetic neuropathy, with long-term current use of insulin (HCC) -ICD9: 250.60, 357.2, V58.67, ICD10: E11.40, Z79.4 Controlled. - Continue current medications - HEMOGLOBIN A1C (POC) 3. Hypertension goal BP (blood pressure) < 150/90 - ICD9: 401.9, ICD10: I10 - good control - Recommended regular aerobic exercise. - Recommend home blood pressure monitoring, to bring results in on next visit - Goal of BP <130/80 4. Stage 3 chronic kidney disease, unspecified whether stage 3a or 3b CKD (HCC) - ICD9: 585.3, ICD10: N18.30 CKD: Stage 3, recent labs reviewed, shows GFR is stable, not significantly changed from previous labs. Discussed the importance of staying off the NSAIDs naproxen, motrin, brufen, aleve etc and contrast., adequate hydration Keeping blood pressure under control. Yasemin Connors MD documented in this encounter[facility]06-21-2022 History of Present illness Narrative* RT James(R) - 07/26/2021 10:20 AM EDT Radiology Service Progress Note PATIENT NAME: Saeid Urbina DATE OF SERVICE: July 26, 2021 TIME: 1:28 PM PATIENT IDENTITY VERIFICATION COMPLETED USING TWO (2) IDENTIFIERS: Name and Date of confirmedby patient verbally. FALL SCREENING: Has the patient had 2 falls in the last year or 1 fall with injury or currently using an Ambulatory Assistive Device (Walker, Cane, Wheelchair, Crutches, etc.)? No PATIENT GENDER DATA: Female. status: : No status: NO. PATIENT RELEVANT IMPLANT DATA REVIEWED: Yes RADIOLOGY DEPARTMENT: CT; Exam(s) Completed: Chest Abdomen Pelvis PERIPHERAL IV DATA: power port accessed by [employer] SIGNED BY: RT Farzana(R) July 26, 2021 1:28 PM documented in this encounterSouthern [facility]06-15-2022 Miscellaneous Notes* Telephone Encounter - Melvin Riggs LPN - 07/20/2021 3:59 PM EDT LAURENCE 12/06/20 NOV 09/06/21 * Telephone Encounter - Cassi Mac - 07/20/2021 3:28 PM EDT Patient has been identified by name and date of : Yes Pending Prescriptions Disp Refills VALSARTAN 160 MG TABLET 90 tablet 3 Sig: Take 1 tablet by mouth once daily. JASON: No RX INSTRUCTIONS: Patient aware RX will be sent to pharmacy. No need to notify patient. Cassi Mac documented in this encounterSouthern [facility]06-15-2022 Miscellaneous Notes* Telephone Encounter - Johanny Gonzalez - 07/20/2021 8:35 AM EDT Pharmacy electronically sent a request for the following prescription(s) Pending Prescriptions Disp Refills METFORMIN ER 500 MG TABLET,EXTENDED RELEASE 24 HR 180 tablet 3 Sig: TAKE 2 TABLETS DAILY WITH BREAKFAST JASON: Yes VALSARTAN 160 MG TABLET 90 tablet 3 Sig: TAKE 1 TABLET DAILY JASON: Yes Patient aware RX will be sent to pharmacy. No need to notify patient. Last Office Visit: 06/06/2021 Next Office Visit: 09/06/2021 Please review. Johanny Gonzalez documented in this encounterSouthern [facility]05-17-2022 Nurse Note* Key Shelton RN - 06/21/2021 9:55 AM EDT Abdomen soft non-distended. Will continue to monitor. documented in this encounterSouthern [facility]05-17-2022 History and physical note * Mahin Pérez MD - 06/21/2021 8:45 AM EDT Images from the original note were not included. HISTORY AND PHYSICAL Saeid Urbina 1950 REFERRING PHYSICIAN: Jerry Vallejo DO CHIEF COMPLAINT: Consult (COLONOSCOPY) HPI: The patient is a 70 year old female referred for follow up endoscopy after a colon section andliver margin resection. The patient was initially seen by Julia Neumann. The patient noted early satiety weight loss and nausea after eating for approximately 6 months. The patient has a family history of colon cancer. The patient underwent colonoscopy by Dr. Iona Avina which demonstrated a near obstructing lesion inthe mid transverse colon highly suspicious for malignancy which she could not advance the scope beyond. Dr. Avina placed a clip adjacent to the abnormality. Biopsies were obtained but these did not return as positive for malignancy. A CT scan of the abdomen pelvis was obtained on January 19, 2020. This demonstrated: IMPRESSION: Bowel wall thickening and narrowing of the lumen of the transverse colon, concerning for malignancy. No CT evidence of liver mass. No lymphadenopathy in the abdomen and pelvis. Mild dilation of the common bile duct in the setting of cholecystectomy. Fat-containing paraumbilical hernia. My review of the CT scan demonstrated an apple core lesion consistent with colon cancer. The metallic clip was located right next to the spot. The lumen of the area was nearly obstructed. Given the fact that Dr. Avina was unable to advance the scope beyond the area highly suspicious for malignancy and given the size of the lumen on CT scan I asked her to urgently be brought to my office so we can schedule an urgent resection before she obstructs. I performed a laparoscopic right extended hemicolectomy and liver biopsy on January 27, 2020. While there were no other nodules noted in the liver, higher up on the right side of the liver there wasa superficial mass that I biopsied. The patient did well post operatively and was discharged on postoperatively day #3 The pathology demonstrated: FINAL DIAGNOSIS 1. Right colon, terminal ileum, and appendix, extended right hemicolectomy (A): - Adenocarcinoma involving transverse colon and extending into pericolonic soft tissue, margins negative (see synoptic). - Metastatic adenocarcinoma in one lymph node (02/18). 2. Liver, biopsy (B): Metastatic adenocarcinoma, consistent with colorectal origin. SYNOPTIC REPORT OF MAE PATHOLOGIC FINDINGS EXTENDED RIGHT COLON: COLON AND RECTUM:RESECTION, INCLUDING TRANSANAL DISK EXCISION OF RECTAL NEOPLASMS WORKSHEET: Procedure: Right hemicolectomy Tumor Site: Transverse colon Tumor Size: Greatest dimension: 3.5 cm Macroscopic Tumor Perforation: Not identified Macroscopic Intactness of Mesorectum: Not applicable Histologic Type: Adenocarcinoma Histologic Grade: G2: Moderately differentiated Tumor Extension: Tumor invades through the muscularis propria into pericolorectal tissue Margins: All margins are uninvolved by invasive carcinoma, high-grade dysplasia, intramucosal adenocarcinoma, and adenoma Margins examined: proximal, distal, radial, mesenteric Proximal Margin: Uninvolved by invasive carcinoma Distal Margin: Uninvolved by invasive carcinoma Circumferential Radial Margin: Uninvolved by invasive carcinoma Mesenteric Margin: Uninvolved by invasive carcinoma Treatment Effect: No known presurgical therapy Lymphovascular Invasion: Present Perineural Invasion: Present Type of Polyp in which Invasive Carcinoma Arose: Tubular adenoma Tumor Deposits: Not identified Regional Lymph Nodes: Number of nodes involved: 1 Number of nodes examined: 14 Pathologic Stage Classification (pTNM,AJCC 8th ed) TNM Descriptors: Not applicable Pathologic Staging (pTNM): pT3: Tumor invades through the muscularis propria into pericolorectal tissues Regional Lymph Nodes (pN): pN1a: One regional lymph node is positive Distant Metastasis (pM): pM1: Metastasis to one or more distant sites or organs or peritoneal metastasis is identified Saeid notes no complaints at surgery. Post operative pain has been well controlled. The patient denies nausea. The patient`s appetite has been good. I then placed a Port-A-Cath. Dr. Miguel Mccoy then performed a laparoscopic microwave ablation of her liver metastases along with intraoperative ultrasound and transversus abdominis block on April. She has then been getting chemotherapy. She has completed chemotherapy and is referred for follow-up colonoscopy. PAST MEDICAL HISTORY PAST MEDICAL HISTORY Diagnosis Date Benign neoplasm of colon Benign polyps. 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 Lumpectomy, completed radiation 06/27/10. No chemotherapy. Myalgia and myositis, unspecified Obesity, unspecified Obesity Obstructive sleep apnea syndrome 05/24/2015 Pain in joint of right shoulder 09/03/2014 Plantar fascial fibromatosis Seborrheic dermatitis, unspecified Shortness of breath Type II or unspecified type diabetes mellitus without mention of complication, not stated as uncontrolled Unspecified hemorrhoids without mention of complication Hemorrhoids PAST SURGICAL HISTORY PAST SURGICAL HISTORY Procedure Laterality Date ADENOIDECTOMY PRIMARY <AGE 10 age 3 Adenoidectomy BX BREAST PERC NEED W/GUID 02/11/2010 U/S Needle core UOQ right breast bx BX/EXC LYMPH NODE OPEN DEEP AXILLARY NODE 03/16/2010 RIGHT - [facility] Dr. Dung Mayo CATH IMPL VASC ACCESS PORTAL 03/03/2020 DELIVERY ONLY , low cervical x4 CHOLECYSTECTOMY 01/11/1981 Cholecystectomy COLONOSCOPY FLX DX W/COLLJ SPEC WHEN PFRMD 08/30/2001 Colonoscopy COLONOSCOPY FLX DX W/COLLJ SPEC WHEN PFRMD 07/17/2012 Colonoscopy COLONOSCOPY FLX DX W/COLLJ SPEC WHEN PFRMD 12/02/2015 Colonoscopy (Needs MAC next time) COLONOSCOPY GEN ANES 01/16/2020 COLONOSCOPY W/BIOPSY SINGLE/MULTIPLE 06/01/2006 EGD 01/16/2020 EGD FLEX REMOVAL LESION(S) BY HOT BIOPSY FORCEPS 08/30/2001 EGD TRANSORAL BIOPSY SINGLE/MULTIPLE 06/01/2006 EGD TRANSORAL BIOPSY SINGLE/MULTIPLE 12/23/2009 ESOPHAGOGASTRODUODENOSCOPY TRANSORAL DIAGNOSTIC 12/02/2015 EGD IR RADIO FREQUENCY ABLATION 11/2017 LAPAROSCOPIC HEMICOLECTOMY 01/26/2020 LIG/TRNSXJ FLP TUBE ABDL/VAG APPR UNI/BI Tubal ligation MASTECTOMY, PARTIAL 03/16/2010 RIGHT - [facility] Dr. Dung Mayo PREOP PLACEMENT NEEDLE LOC 03/16/2010 U/S wire loc UOQ right breast PULMONARY FUNCTION TEST 05/22/2005 SIGMOIDOSCOPY FLX DX W/COLLJ SPEC BR/WA IF PFRMD 04/06/1999 Sigmoidoscopy, flexible TONSILLECTOMY PRIMARY/SECONDARY <AGE 10 age 3 Tonsillectomy CURRENT MEDICATIONS Current Outpatient Medications Medication Sig omeprazole (PRILOSEC) 40 mg capsule TAKE 1 CAPSULE BY MOUTH EVERY DAY ergocalciferol 50,000 unit capsule (VITAMIN D2, DRISDOL) TAKE 2 CAPSULES A WEEK FOR 8 WEEKS. THEN 1CAPSULE WEEKLY THEREAFTER. tiotropium 2.5 mcg-olodateroL 2.5 mcg/actuation mist for inhalation (KazaanaOLLED Light Sense RESPIMAT) Inhale 2 Puffs as instructed once daily. magnesium oxide (MAG-OX) 400 mg (241.3 mg magnesium) tablet Take 1 tablet by mouth once daily. blood sugar diagnostic (ONETOUCH ULTRA TEST) test strip TEST ONCE DAILY lancets (ONE TOUCH DELICA) 33 gauge Test blood sugar(s) 1 daily. Dx: Type 2 DM - Controlled E11.9 Insulin: No loperamide HCl (IMODIUM A-D ORAL) Take by mouth. Prn amLODIPine (NORVASC) 10 mg tablet Take 10 mg by mouth once daily. metFORMIN ER (GLUCOPHAGE XR) 500 mg 24 hr tablet Take 2 tablets by mouth daily with breakfast. promethazine (PHENERGAN) 25 mg tablet Take 1 tablet by mouth every 6 hours as needed (For chemotherapy induced nausea). FOR NAUSEA valsartan (DIOVAN) 160 mg tablet Take 1 tablet by mouth once daily. metoprolol succinate ER (TOPROL XL) 50 mg 24 hr tablet Take 1 tablet by mouth once daily. insulin lispro (HUMALOG KWIKPEN INSULIN) 100 unit/mL Sliding scale during chemotherapy for glucose readings with meals 151 - 200 2 units 201 - 250 4 units 251 - 300 6 units 301 - 350 8 units 351-400 10 units >400 contact office insulin needles, DISPOSABLE, (PEN NEEDLE) 31 gauge x 5/16" Use one needle per dose. 3 per day. acetaminophen (TYLENOL) 500 mg tablet Take 1-2 tablets by mouth every 6 hours as needed. lidocaine-prilocaine (EMLA) 2.5-2.5 % cream Apple to port site 60 minutes prior to accessing Fenofibrate (LOFIBRA) 54 mg tablet Take 54 mg by mouth once daily. hydrOXYchloroQUINE (PLAQUENIL) 200 mg tablet Take by mouth once daily. furosemide (LASIX) 20 mg tablet Take 0.5 tablets by mouth once daily. Diclofenac Sodium (SOLARAZE) 3 % gel Apply to affected area three times daily as needed. [place]-3 Fatty Acids (FISH OIL) 500 mg cap Take 1 capsule by mouth once daily. morphine SR (MS CONTIN, ORAMORPH SR) 15 mg 12 hr tablet Take 15 mg by mouth every 8 hours as needed. CPAP Replace CPAP equipment: Cpap @ 11 cm of water without heated humidification. New Mask (per patient preference) optional chin strap (if indicated), head gear, filters, tubing, humidifier and other supplies. Length of need 12 months, or lifetime if able. Dx: G47.33 cyanocobalamin (VITAMIN B-12) 1,000 mcg tab Take 1,000 mcg by mouth once daily. FOLIC ACID 800 MCG TAB Take by mouth once daily. polyethylene glycol 3350 (MIRALAX, GLYCOLAX) 17 gram/dose powder Use as directed for Miralax / Gatorade Bowel Prep Kit Gatorade Sports Drink Use as directed for Miralax / Gatorade Bowel Prep Kit Bisacodyl (DULCOLAX) 5 mg tab Use as directed for Miralax / Gatorade Bowel Prep Kit iv contrast (will be provided with radiology test) CT Chest W -Inject, intravenously, once for 1 dose.No IV access, insert saline lock prior to the beginning of sedation, infusion, injection of imaging exam. Discontinue saline lock post exam. If Pt. has a central line or IVAD, may access for administration according to line specific nursing protocol. Once exam is complete flush line and de-accessaccording to line specific nursing protocol in the CT contrast administration guidelines link. (Patient not taking: Reported on 04/06/2021 ) iv contrast (will be provided with radiology test) CT ABD/PEL -Inject, intravenously, once for 1 dose.No IV access, insert saline lock prior to the beginning of sedation, infusion, injection of imaging exam. Discontinue saline lock post exam. If Pt. has a central line or IVAD, may access for administration according to line specific nursing protocol. Once exam is complete flush line and de-accessaccording to line specific nursing protocol in the CT contrast administration guidelines link. (Patient not taking: Reported on 04/06/2021 ) enteric contrast (will be provided with radiology test) For CT ABD/PEL W IVCON Routine order Administer, As Directed One Time Only, via Oral, Rectal, both Oral and Rectal, Enteric Tube, Stoma or Indwelling Catheter, Enteric Contrast as designated per enteric contrast guidelines (Patient not taking:Reported on 04/06/2021 ) Current Facility-Administered Medications Medication Dose Route Frequency perflutren lipid microspheres 1.3 mL in NaCl (PF) 0.9% 10 mL injection (DEFINITY) INTRAVENOUS DIRECTED PRN ALLERGIES: Ciprofloxacin, Claritin [Loratadine], Dicyclomine, E-Mycin [Erythromycin], Naproxen, Oruvail [Ketoprofen], Relafen [Nabumetone], and Statin [Other] PERSONAL HISTORY: SOCIAL HISTORY Social History Tobacco Use Smoking status: Never Smoker Smokeless tobacco: Never Used Tobacco comment: Household ETS for 50 years. Vaping Use Vaping Use: Never used Substance Use Topics Alcohol use: No Drug use: No FAMILY HISTORY: FAMILY HISTORY FAMILY HISTORY Problem Relation Age of Onset Diabetes Mother Colon Cancer Mother PASSED FROM THIS AT THE AGE OF 62 Heart Father HAD AN [place] IN MID TO LATE 50s, FROM THIS. other (Other) Sister MVA Cancer Brother Lymphoma. Cancer free for 10 years. Coronary Artery Disease Brother Stent Bipolar disorder Daughter Arthritis Daughter Psoriactic other (Epilepsy) Daughter other (cerebral spinal fluid leak) Son other (colitis) Son Autism Grandchild Colon Cancer Brother No Known Problems Sister Hypertension Sister Systemic Lupus Erythematosus Sister other (RHUMATOID ARTHRITIS) Sister SAME SISTER HYPERTENSION Asthma No Family History Emphysema No Family History Blood Clots No Family History No PE. REVIEW OF SYMPTOMS: The review of systems data was entered by the nurse and reviewed by me There are no exam notes on file for this visit. PHYSICAL EXAMINATION: General: The patient is 70 year old female, well nourished, well hydrated in no acute distress. Thepatient is oriented to time, place, and person. VITALS: Blood pressure 126/78, pulse 82, temperature 36.4 C (97.5 F), height 157.5 cm (5' 2"), weight 98.9 kg (218 lb), SpO2 99 %. Body mass index is 39.87 kg/m . HEENT: Normal cephalic, ataumatic, pupils are equally round, sclera are anicteric, mucous membranesare moist, oropharynx is clear. Neck has no masses, asymmetry or lymphadenopathy. Thyroid is unremarkable. Respiratory: Clear to auscultation and percussion. Normal respiratory excursion and pattern. Cardiac: Examination is regular rate and rhythm. Abdominal exam: Soft, nontender, with no palpable masses. No hepatosplenomegaly. No palpable hernias. Rectal exam: exam deferred Extremities: no clubbing, cyanosis or edema. No adenopathy. Other: LABORATORY VALUES: As Noted RADIOLOGIC STUDIES: As Noted Assessment IMPRESSION: Personal history of transverse colon cancer with liver metastases, need for follow-up colonoscopy PLAN: I plan to perform lower endoscopy. We discussed the risks and benefits of the planned endoscopy. I have informed the patient that complications can occur including failure to complete the endoscopy and perforation. The patient had the opportunity to ask questions concerning the planned endoscopy. My staff has also explained the procedure to the patient in understandable terms and has given the patient printed material concerning the procedure. The patient freely consents to surgery. I plan to use Miralax bowel preperation for endoscopy Diagnoses: (Z85.038) Personal history of colon cancer (primary encounter diagnosis) (C78.7) Liver metastases (HCC) My findings have been communicated to Dr. Yasemin Connors MD via shared medical record. This note will be forwarded to Dr. Yasemin Connors MD. Return to Clinic: The patient is instructed to follow-up with me after the testing has been completed. Mahin Pérez MD [facility] Miscellaneous Notes* Telephone Encounter - Melvin Cazares - 06/17/2021 4:32 PM EDT Patient called in and wondered if you would be willing to do an Upper the same day she is to have the coloscopy/ patient stated she is having some stomach pain and discomfort on the left side. Statedshe had one complete in [address] avina found her cancer. Please advise. Thank you Melvin Cazares documented [facility] Miscellaneous Notes* Telephone Encounter - Mya Samuels LPN - 06/16/2021 10:34 AM EDT Patient has been identified by name and date of : Yes Patient phones for refill(s): Pending Prescriptions Disp Refills OMEPRAZOLE 40 MG CAPSULE,DELAYED RELEASE 30 capsule 2 Sig: TAKE 1 CAPSULE BY MOUTH EVERY DAY JASON: Yes Date of last office visit in primary care: 01/21/21 next apt 07/29/21 Last 2 Encounter Wt Readings: Date: Wt: 06/14/2021 97.2 kg (214 lb 3.2 oz) 06/06/2021 97.1 kg (214 lb) Previous labs/tests for medication: Not applicable Please advise. Thank you. Mya Samuels LPN documented [facility] History of Present illness Narrative* Yasemin Connors MD - 06/06/2021 11:45 AM EDT Reason for Visit Patient presents with: Established Patient: 6 month follow up- med refill Saeid Urbina is a 70 year old female who presents here today for Above Complaints. Health Maintenance DTAP,TDAP,TD(2 - Td or Tdap) COVID-19 VACCINE(4 - Booster for Moderna series) ADVANCE DIRECTIVE DISCUSSION HBA1C HPI Saeid Urbina is a 70 yo female with pmh significant for GERD, HTN, hypercholesterolemia, CHF, OA, SHILPA on CPAP, DM, CKD, RA, breast cancer s/p partial mastectomy and completed radiation 2010, diagnosed 01/2020 transverse colon CA with mets to liver and COPD. She had surgery for colonoscopy, ablation in the liver. Never smoker but had copd. for copd she is seeing Pulm and her medication is optimized, she feels better on current regimen, more comfortable with the breathing on stioloto, she is not as sob as she was in the past. Right now her knees are the worst that they have been. She had a colonoscopy and then a scan and then knee replacement. Seeing Dr Brown for knee arthritis and she is getting steroids there. Needs refills of lasix, for her legs. She is not using her sleep machine currently - she is not sure if she is not working right or some adjustment needs to be done a she is just not feeling it is the right setting for her. No problem-specific Assessment & Plan notes found for this encounter. PAST MEDICAL HISTORY Diagnosis Date Benign neoplasm of colon Benign polyps. 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 Lumpectomy, completed radiation 06/27/10. No chemotherapy. Myalgia and myositis, unspecified Obesity, unspecified Obesity Obstructive sleep apnea syndrome 05/24/2015 Pain in joint of right shoulder 09/03/2014 Plantar fascial fibromatosis Seborrheic dermatitis, unspecified Shortness of breath Type II or unspecified type diabetes mellitus without mention of complication, not stated as uncontrolled Unspecified hemorrhoids without mention of complication Hemorrhoids PAST SURGICAL HISTORY Procedure Laterality Date ADENOIDECTOMY PRIMARY <AGE 10 age 3 Adenoidectomy BX BREAST PERC NEED W/GUID 02/11/2010 U/S Needle core UOQ right breast bx BX/EXC LYMPH NODE OPEN DEEP AXILLARY NODE 03/16/2010 RIGHT - [facility] Dr. Dung Mayo CATH IMPL VASC ACCESS PORTAL 03/03/2020 DELIVERY ONLY , low cervical x4 CHOLECYSTECTOMY 01/11/1981 Cholecystectomy COLONOSCOPY FLX DX W/COLLJ SPEC WHEN PFRMD 08/30/2001 Colonoscopy COLONOSCOPY FLX DX W/COLLJ SPEC WHEN PFRMD 07/17/2012 Colonoscopy COLONOSCOPY FLX DX W/COLLJ SPEC WHEN PFRMD 12/02/2015 Colonoscopy (Needs MAC next time) COLONOSCOPY GEN ANES 01/16/2020 COLONOSCOPY W/BIOPSY SINGLE/MULTIPLE 06/01/2006 EGD 01/16/2020 EGD FLEX REMOVAL LESION(S) BY HOT BIOPSY FORCEPS 08/30/2001 EGD TRANSORAL BIOPSY SINGLE/MULTIPLE 06/01/2006 EGD TRANSORAL BIOPSY SINGLE/MULTIPLE 12/23/2009 ESOPHAGOGASTRODUODENOSCOPY TRANSORAL DIAGNOSTIC 12/02/2015 EGD IR RADIO FREQUENCY ABLATION 11/2017 LAPAROSCOPIC HEMICOLECTOMY 01/26/2020 LIG/TRNSXJ FLP TUBE ABDL/VAG APPR UNI/BI Tubal ligation MASTECTOMY, PARTIAL 03/16/2010 RIGHT - [facility] Dr. Dung Mayo PREOP PLACEMENT NEEDLE LOC 03/16/2010 U/S wire loc UOQ right breast PULMONARY FUNCTION TEST 05/22/2005 SIGMOIDOSCOPY FLX DX W/COLLJ SPEC BR/WA IF PFRMD 04/06/1999 Sigmoidoscopy, flexible TONSILLECTOMY PRIMARY/SECONDARY <AGE 10 age 3 Tonsillectomy FAMILY HISTORY Problem Relation Age of Onset Diabetes Mother Colon Cancer Mother PASSED FROM THIS AT THE AGE OF 62 Heart Father HAD AN [place] IN MID TO LATE 50s, FROM THIS. other (Other) Sister MVA Cancer Brother Lymphoma. Cancer free for 10 years. Coronary Artery Disease Brother Stent Bipolar disorder Daughter Arthritis Daughter Psoriactic other (Epilepsy) Daughter other (cerebral spinal fluid leak) Son other (colitis) Son Autism Grandchild Colon Cancer Brother No Known Problems Sister Hypertension Sister Systemic Lupus Erythematosus Sister other (RHUMATOID ARTHRITIS) Sister SAME SISTER HYPERTENSION Asthma No Family History Emphysema No Family History Blood Clots No Family History No PE. Social History Tobacco Use Smoking status: Never Smoker Smokeless tobacco: Never Used Tobacco comment: Household ETS for 50 years. Vaping Use Vaping Use: Never used Substance Use Topics Alcohol use: No Drug use: No Past medical history, appointments, medications, allergies reviewed. Pertinent Lab/Diagnostic Studies are reviewed and discussed today Current Outpatient Medications: metoprolol succinate ER (TOPROL XL) 50 mg 24 hr tablet amLODIPine (NORVASC) 10 mg tablet insulin needles, DISPOSABLE, (PEN NEEDLE) 31 gauge x 5/16" polyethylene glycol 3350 (MIRALAX, GLYCOLAX) 17 gram/dose powder Gatorade Sports Drink Bisacodyl (DULCOLAX) 5 mg tab iv contrast (will be provided with radiology test) iv contrast (will be provided with radiology test) enteric contrast (will be provided with radiology test) omeprazole (PRILOSEC) 40 mg capsule ergocalciferol 50,000 unit capsule (VITAMIN D2, DRISDOL) tiotropium 2.5 mcg-olodateroL 2.5 mcg/actuation mist for inhalation (STIOLTO RESPIMAT) magnesium oxide (MAG-OX) 400 mg (241.3 mg magnesium) tablet blood sugar diagnostic (ONETOUCH ULTRA TEST) test strip lancets (ONE TOUCH DELICA) 33 gauge loperamide HCl (IMODIUM A-D ORAL) metFORMIN ER (GLUCOPHAGE XR) 500 mg 24 hr tablet promethazine (PHENERGAN) 25 mg tablet valsartan (DIOVAN) 160 mg tablet insulin lispro (HUMALOG KWIKPEN INSULIN) 100 unit/mL acetaminophen (TYLENOL) 500 mg tablet lidocaine-prilocaine (EMLA) 2.5-2.5 % cream Fenofibrate (LOFIBRA) 54 mg tablet hydrOXYchloroQUINE (PLAQUENIL) 200 mg tablet furosemide (LASIX) 20 mg tablet Diclofenac Sodium (SOLARAZE) 3 % gel [place]-3 Fatty Acids (FISH OIL) 500 mg cap morphine SR (MS CONTIN, ORAMORPH SR) 15 mg 12 hr tablet CPAP cyanocobalamin (VITAMIN B-12) 1,000 mcg tab FOLIC ACID 800 MCG TAB Current Facility-Administered Medications: perflutren lipid microspheres 1.3 mL in NaCl (PF) 0.9% 10 mL injection (DEFINITY) Review of Systems CONSTITUTIONAL: No fevers, chills night sweats, unintended weight loss CARDIOVASCULAR: No chest pain, dyspnea, palpitations, orthopnea, PND, ankle edema. PULM: No dyspnea, unexplained cough. GI: No dysphagia/odynophagia, problematic reflux, constipation, diarrhea, changes in stool habits, hematochezia, melena. : No new urinary complaints, including dysuria, gross hematuria or pyuria. NEURO: No new balance problems, peripheral weakness/paresthesias or numbness of concern. Physical Exam BP 134/68 (BP Site: Left Arm, BP Position: Sitting, BP Cuff Size: Large Adult) Pulse 64 Temp 37.1 C (98.8 F) Resp 18 Ht 157.5 cm (5' 2") Wt 97.1 kg (214 lb) SpO2 98% BMI 39.14 kg/m General appearance: Well appearing, alert, in no acute distress, well nourished. Skin: Skin color, texture, turgor normal, no suspicious rashes or lesions Head: Normocephalic, no masses, lesions, tenderness or abnormalities Eyes: Anicteric sclera. Pupils are equally round and reactive to light. Extraocular movements are intact. Lungs: Lungs clear to auscultation. No wheezing, rhonchi, rales Heart: RRR without murmur, gallop, or rubs. Extremities: No deformities, edema, skin discoloration, clubbing or cyanosis. Good capillary refill. ASSESSMENT/PLAN: 1. Type 2 diabetes mellitus with diabetic neuropathy, with long-term current use of insulin ([facility]) -ICD9: 250.60, 357.2, V58.67, ICD10: E11.40, Z79.4 (primary diagnosis) Controlled. Checked POC, hba1c is 6.4 - HEMOGLOBIN A1C (POC) 2. Bilateral lower extremity edema - ICD9: 782.3, ICD10: R60.0 - FUROSEMIDE 20 MG TABLET 3. Hypertension goal BP (blood pressure) < 150/90 - ICD9: 401.9, ICD10: I10 - good control - Recommended regular aerobic exercise. - Recommend home blood pressure monitoring, to bring results in on next visit - Goal of BP <130/80 4. COPD (chronic obstructive pulmonary disease) with chronic bronchitis ([facility]) - ICD9: 491.20, ICD10: J44.9 Cont the current regimen of medication etc 5. Sleep apnea, obstructive - ICD9: 327.23, ICD10: G47.33 - CONSULT TO SLEEP MEDICINE - ADULT 6. Stage 3 chronic kidney disease, unspecified whether stage 3a or 3b CKD ([facility]) - ICD9: 585.3, ICD10: N18.30 CKD: Stage 3, recent labs reviewed, shows GFR is stable, not significantly changed from previous labs. Discussed the importance of staying off the NSAIDs naproxen, motrin, brufen, aleve etc and contrast., adequate hydration Keeping blood pressure under control. 7. Chronic diastolic CHF (congestive heart failure) ([facility]) - ICD9: 428.32, 428.0, ICD10: I50.32 8. Type 2 diabetes mellitus with stage 3b chronic kidney disease, with long-term current use of insulin (HCC) - ICD9: 250.40, 585.3, V58.67, ICD10: E11.22, N18.32, Z79.4 Controlled. - Continue current medications Yasemin Connors MD [facility] Miscellaneous Notes* Letter - Mammography Coordinator - 06/02/2021 8:50 AM EDT June 02, 2021 PID: [id number] Saeid Urbina [address] [address] Dear Denita Dorcas, We are pleased to inform you that the results of your recent breast imaging exam on 06/01/2021 are normal. Your mammogram demonstrates that you have dense breast tissue, which could hide abnormalities. Dense breast tissue, in and of itself, is a relatively common condition. Therefore, this information is not provided to cause undue concern; rather, it is to raise your awareness and promote discussion with your health care provider regarding the presence of dense breast tissue in addition to other riskfactors. Early detection of cancer is very important. We also understand recommendations regarding breast cancer screening are controversial. Please discuss with your primary care provider which strategy is best for you and whether a mammogram is right for you. Your imaging studies and report will be kept on file at [facility] as part of your permanent medical record and are available for your continuing care. Thank you for allowing us to help in meeting your health care needs. Sincerely, Dr. Guadalupe Interpreting Radiologist [facility] (Normal over 40) documented in this [facility] History of Present illness Narrative* RT Jennifer(R) - 06/01/2021 2:40 PM EDT 2 Radiology Service Progress Note PATIENT NAME: Saeid Urbina DATE OF SERVICE: June 01, 2021 TIME: 2:13 PM PATIENT IDENTITY VERIFICATION COMPLETED USING TWO (2) IDENTIFIERS: Name and Date of confirmedby patient verbally. FALL SCREENING: Has the patient had 2 falls in the last year or 1 fall with injury or currently using an Ambulatory Assistive Device (Walker, Cane, Wheelchair, Crutches, etc.)? No PATIENT GENDER DATA: Female. status: : No status: NO. PATIENT RELEVANT IMPLANT DATA REVIEWED: Not Applicable RADIOLOGY DEPARTMENT: Mammography PERIPHERAL IV DATA: Not applicable SIGNED BY: RT Jennifer(R) June 01, 2021 2:13 PM [facility] Miscellaneous Notes* Telephone Encounter - Melvin Cazares - 04/06/2021 2:04 PM EST 06-21-2021 Colon ASC Patient has port and would like to use port Melvin Cazares [facility] History of Past illness Narrative* Problem Noted Date Resolved Date Left groin pain 02/17/2020 06/02/2021 Morbid obesity 01/29/2020 06/02/2021 Last Assessment & Plan: Assessment: Body mass index is 40.03 kg/m . Malnutrition of mild degree 01/27/202005/07 Type 2 diabetes mellitus 01/26/2020 022 Need for vaccination 03/13/2018 06/02/2021 Chronic bronchitis 03/13/2018 06/02/2021 Rotator cuff syndrome of left shoulder 8 06/02/2021 History of colonic polyps 12/02/20152015 Family history of colon cancer in mother 016 12/02/2015 Hypertriglyceridemia 10/06/2015 06/02/2021 Last Assessment & Plan: tgs are well controlled on the fenofibrate. 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 Lumpectomy, completed radiation 06/27/10. No chemotherapy. 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 06/02/2021 Last Assessment & Plan: Assessment: controlled, albuterol as needed Hypercalcemia 12/07/2005 06/02/2021 Last Assessment & Plan: Well controlled Pure hypercholesterolemia 08/22/20052021 Last Assessment & Plan: Assessment: c/w statin Impaired fasting glucose 08/22/2005 015 Impaired glucose tolerance test 08/22/2005 09/28/2014 Myalgia and myositis, unspecified 01/21/2005 06/02/2021 Shortness of breath 01/25/2015 Morbid obesity due to excess calories 06/02/2021 Overview: Obesity Family history of malignant neoplasm of gastrointestinal tract 06/02/2021 Overview: family history of colon cancer documented as of this encounter (statuses as of 06/04/2021) [facility] History of Past illness Narrative* Problem Noted Date Resolved Date Left groin pain 02/17/2020 06/02/2021 Morbid obesity 01/29/2020 06/02/2021 Last Assessment & Plan: Assessment: Body mass index is 40.03 kg/m . Malnutrition of mild degree 01/27/202005/07 Type 2 diabetes mellitus 01/26/2020 022 Need for vaccination 03/13/2018 06/02/2021 Chronic bronchitis 03/13/2018 06/02/2021 Rotator cuff syndrome of left shoulder 8 06/02/2021 History of colonic polyps 12/02/20152015 Family history of colon cancer in mother 016 12/02/2015 Hypertriglyceridemia 10/06/2015 06/02/2021 Last Assessment & Plan: tgs are well controlled on the fenofibrate. 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 Lumpectomy, completed radiation 06/27/10. No chemotherapy. 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 06/02/2021 Last Assessment & Plan: Assessment: controlled, albuterol as needed Hypercalcemia 12/07/2005 06/02/2021 Last Assessment & Plan: Well controlled Pure hypercholesterolemia 08/22/20052021 Last Assessment & Plan: Assessment: c/w statin Impaired fasting glucose 08/22/2005 015 Impaired glucose tolerance test 08/22/2005 09/28/2014 Myalgia and myositis, unspecified 01/21/2005 06/02/2021 Shortness of breath 01/25/2015 Morbid obesity due to excess calories 06/02/2021 Overview: Obesity Family history of malignant neoplasm of gastrointestinal tract 06/02/2021 Overview: family history of colon cancer documented as of this encounter (statuses as of 06/06/2021) [facility] History of Past illness Narrative* Problem Noted Date Resolved Date Left groin pain 02/17/2020 06/02/2021 Morbid obesity 01/29/2020 06/02/2021 Last Assessment & Plan: Assessment: Body mass index is 40.03 kg/m . Malnutrition of mild degree 01/27/202005/07 Type 2 diabetes mellitus 01/26/2020 022 Need for vaccination 03/13/2018 06/02/2021 Chronic bronchitis 03/13/2018 06/02/2021 Rotator cuff syndrome of left shoulder 8 06/02/2021 History of colonic polyps 12/02/20152015 Family history of colon cancer in mother 016 12/02/2015 Hypertriglyceridemia 10/06/2015 06/02/2021 Last Assessment & Plan: tgs are well controlled on the fenofibrate. 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 Lumpectomy, completed radiation 06/27/10. No chemotherapy. 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 06/02/2021 Last Assessment & Plan: Assessment: controlled, albuterol as needed Hypercalcemia 12/07/2005 06/02/2021 Last Assessment & Plan: Well controlled Pure hypercholesterolemia 08/22/20052021 Last Assessment & Plan: Assessment: c/w statin Impaired fasting glucose 08/22/2005 015 Impaired glucose tolerance test 08/22/2005 09/28/2014 Myalgia and myositis, unspecified 01/21/2005 06/02/2021 Shortness of breath 01/25/2015 Morbid obesity due to excess calories 06/02/2021 Overview: Obesity Family history of malignant neoplasm of gastrointestinal tract 06/02/2021 Overview: family history of colon cancer documented as of this encounter (statuses as of 06/15/2021) [facility] of Past illness Narrative* Problem Noted Date Resolved Date Left groin pain 02/17/2020 06/02/2021 Morbid obesity 01/29/2020 06/02/2021 Last Assessment & Plan: Assessment: Body mass index is 40.03 kg/m . Malnutrition of mild degree 01/27/2020 04/2 09/2021 Type 2 diabetes mellitus 01/26/2020 022 Need for vaccination 03/13/2018 06/02/2021 Chronic bronchitis 03/13/2018 06/02/2021 Rotator cuff syndrome of left shoulder 8 06/02/2021 History of colonic polyps 12/02/20152015 Family history of colon cancer in mother 016 12/02/2015 Hypertriglyceridemia 10/06/2015 06/02/2021 Last Assessment & Plan: tgs are well controlled on the fenofibrate. 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 Lumpectomy, completed radiation 06/27/10. No chemotherapy. 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 06/02/2021 Last Assessment & Plan: Assessment: controlled, albuterol as needed Hypercalcemia 12/07/2005 06/02/2021 Last Assessment & Plan: Well controlled Pure hypercholesterolemia 08/22/20052021 Last Assessment & Plan: Assessment: c/w statin Impaired fasting glucose 08/22/2005 015 Impaired glucose tolerance test 08/22/2005 09/28/2014 Myalgia and myositis, unspecified 01/21/2005 06/02/2021 Shortness of breath 01/25/2015 Morbid obesity due to excess calories 06/02/2021 Overview: Obesity Family history of malignant neoplasm of gastrointestinal tract 06/02/2021 Overview: family history of colon cancer documented as of this encounter (statuses as of 06/16/2021) [facility] Narrative* Problem Noted Date Resolved Date Left groin pain 02/17/2020 06/02/2021 Morbid obesity 01/29/2020 06/02/2021 Last Assessment & Plan: Assessment: Body mass index is 40.03 kg/m . Malnutrition of mild degree 01/27/202005/07 Type 2 diabetes mellitus 01/26/2020 022 Need for vaccination 03/13/2018 06/02/2021 Chronic bronchitis 03/13/2018 06/02/2021 Rotator cuff syndrome of left shoulder 8 06/02/2021 History of colonic polyps 12/02/20152015 Family history of colon cancer in mother 016 12/02/2015 Hypertriglyceridemia 10/06/2015 06/02/2021 Last Assessment & Plan: tgs are well controlled on the fenofibrate. 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 Lumpectomy, completed radiation 06/27/10. No chemotherapy. 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 06/02/2021 Last Assessment & Plan: Assessment: controlled, albuterol as needed Hypercalcemia 12/07/2005 06/02/2021 Last Assessment & Plan: Well controlled Pure hypercholesterolemia 08/22/20052021 Last Assessment & Plan: Assessment: c/w statin Impaired fasting glucose 08/22/2005 015 Impaired glucose tolerance test 08/22/2005 09/28/2014 Myalgia and myositis, unspecified 01/21/2005 06/02/2021 Shortness of breath 01/25/2015 Morbid obesity due to excess calories 06/02/2021 Overview: Obesity Family history of malignant neoplasm of gastrointestinal tract 06/02/2021 Overview: family history of colon cancer documented as of this encounter (statuses as of 06/20/2021) [facility] of Past illness Narrative* Problem Noted Date Resolved Date Left groin pain 02/17/2020 06/02/2021 Morbid obesity 01/29/2020 06/02/2021 Last Assessment & Plan: Assessment: Body mass index is 40.03 kg/m . Malnutrition of mild degree 01/27/202005/07 Type 2 diabetes mellitus 01/26/2020 022 Need for vaccination 03/13/2018 06/02/2021 Chronic bronchitis 03/13/2018 06/02/2021 Rotator cuff syndrome of left shoulder 8 06/02/2021 History of colonic polyps 12/02/20152015 Family history of colon cancer in mother 016 12/02/2015 Hypertriglyceridemia 10/06/2015 06/02/2021 Last Assessment & Plan: tgs are well controlled on the fenofibrate. 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 Lumpectomy, completed radiation 06/27/10. No chemotherapy. 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 06/02/2021 Last Assessment & Plan: Assessment: controlled, albuterol as needed Hypercalcemia 12/07/2005 06/02/2021 Last Assessment & Plan: Well controlled Pure hypercholesterolemia 08/22/20052021 Last Assessment & Plan: Assessment: c/w statin Impaired fasting glucose 08/22/2005 015 Impaired glucose tolerance test 08/22/2005 09/28/2014 Myalgia and myositis, unspecified 01/21/2005 06/02/2021 Shortness of breath 01/25/2015 Morbid obesity due to excess calories 06/02/2021 Overview: Obesity Family history of malignant neoplasm of gastrointestinal tract 06/02/2021 Overview: family history of colon cancer documented as of this encounter (statuses as of 06/22/2021) [facility] of Past illness Narrative* Problem Noted Date Resolved Date Left groin pain 02/17/2020 06/02/2021 Morbid obesity 01/29/2020 06/02/2021 Last Assessment & Plan: Assessment: Body mass index is 40.03 kg/m . Malnutrition of mild degree 01/27/202005/07 Type 2 diabetes mellitus 01/26/2020 022 Need for vaccination 03/13/2018 06/02/2021 Chronic bronchitis 03/13/2018 06/02/2021 Rotator cuff syndrome of left shoulder 8 06/02/2021 History of colonic polyps 12/02/20152015 Family history of colon cancer in mother 016 12/02/2015 Hypertriglyceridemia 10/06/2015 06/02/2021 Last Assessment & Plan: tgs are well controlled on the fenofibrate. 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 Lumpectomy, completed radiation 06/27/10. No chemotherapy. 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 06/02/2021 Last Assessment & Plan: Assessment: controlled, albuterol as needed Hypercalcemia 12/07/2005 06/02/2021 Last Assessment & Plan: Well controlled Pure hypercholesterolemia 08/22/20052021 Last Assessment & Plan: Assessment: c/w statin Impaired fasting glucose 08/22/2005 015 Impaired glucose tolerance test 08/22/2005 09/28/2014 Myalgia and myositis, unspecified 01/21/2005 06/02/2021 Shortness of breath 01/25/2015 Morbid obesity due to excess calories 06/02/2021 Overview: Obesity Family history of malignant neoplasm of gastrointestinal tract 06/02/2021 Overview: family history of colon cancer documented as of this encounter (statuses as of 07/20/2021) [facility] of Past illness Narrative* Problem Noted Date Resolved Date Left groin pain 02/17/2020 06/02/2021 Morbid obesity 01/29/2020 06/02/2021 Last Assessment & Plan: Assessment: Body mass index is 40.03 kg/m . Malnutrition of mild degree 01/27/202005/07 Type 2 diabetes mellitus 01/26/2020 022 Need for vaccination 03/13/2018 06/02/2021 Chronic bronchitis 03/13/2018 06/02/2021 Rotator cuff syndrome of left shoulder 8 06/02/2021 History of colonic polyps 12/02/20152015 Family history of colon cancer in mother 016 12/02/2015 Hypertriglyceridemia 10/06/2015 06/02/2021 Last Assessment & Plan: tgs are well controlled on the fenofibrate. 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 Lumpectomy, completed radiation 06/27/10. No chemotherapy. 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 06/02/2021 Last Assessment & Plan: Assessment: controlled, albuterol as needed Hypercalcemia 12/07/2005 06/02/2021 Last Assessment & Plan: Well controlled Pure hypercholesterolemia 08/22/20052021 Last Assessment & Plan: Assessment: c/w statin Impaired fasting glucose 08/22/2005 015 Impaired glucose tolerance test 08/22/2005 09/28/2014 Myalgia and myositis, unspecified 01/21/2005 06/02/2021 Shortness of breath 01/25/2015 Morbid obesity due to excess calories 06/02/2021 Overview: Obesity Family history of malignant neoplasm of gastrointestinal tract 06/02/2021 Overview: family history of colon cancer documented as of this encounter (statuses as of 07/20/2021) [facility] of Past illness Narrative* Problem Noted Date Resolved Date Left groin pain 02/17/2020 06/02/2021 Morbid obesity 01/29/2020 06/02/2021 Last Assessment & Plan: Assessment: Body mass index is 40.03 kg/m . Malnutrition of mild degree 01/27/202005/07 Type 2 diabetes mellitus 01/26/2020 022 Need for vaccination 03/13/2018 06/02/2021 Chronic bronchitis 03/13/2018 06/02/2021 Rotator cuff syndrome of left shoulder 8 06/02/2021 History of colonic polyps 12/02/20152015 Family history of colon cancer in mother 016 12/02/2015 Hypertriglyceridemia 10/06/2015 06/02/2021 Last Assessment & Plan: tgs are well controlled on the fenofibrate. 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 Lumpectomy, completed radiation 06/27/10. No chemotherapy. 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 06/02/2021 Last Assessment & Plan: Assessment: controlled, albuterol as needed Hypercalcemia 12/07/2005 06/02/2021 Last Assessment & Plan: Well controlled Pure hypercholesterolemia 08/22/20052021 Last Assessment & Plan: Assessment: c/w statin Impaired fasting glucose 08/22/2005 015 Impaired glucose tolerance test 08/22/2005 09/28/2014 Myalgia and myositis, unspecified 01/21/2005 06/02/2021 Shortness of breath 01/25/2015 Morbid obesity due to excess calories 06/02/2021 Overview: Obesity Family history of malignant neoplasm of gastrointestinal tract 06/02/2021 Overview: family history of colon cancer documented as of this encounter (statuses as of 07/25/2021) [facility] Past illness Narrative* Problem Noted Date Resolved Date Left groin pain 02/17/2020 06/02/2021 Morbid obesity 01/29/2020 06/02/2021 Last Assessment & Plan: Assessment: Body mass index is 40.03 kg/m . Malnutrition of mild degree 01/27/202005/07 Type 2 diabetes mellitus 01/26/2020 022 Need for vaccination 03/13/2018 06/02/2021 Chronic bronchitis 03/13/2018 06/02/2021 Rotator cuff syndrome of left shoulder 8 06/02/2021 History of colonic polyps 12/02/20152015 Family history of colon cancer in mother 016 12/02/2015 Hypertriglyceridemia 10/06/2015 06/02/2021 Last Assessment & Plan: tgs are well controlled on the fenofibrate. 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 Lumpectomy, completed radiation 06/27/10. No chemotherapy. 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 06/02/2021 Last Assessment & Plan: Assessment: controlled, albuterol as needed Hypercalcemia 12/07/2005 06/02/2021 Last Assessment & Plan: Well controlled Pure hypercholesterolemia 08/22/20052021 Last Assessment & Plan: Assessment: c/w statin Impaired fasting glucose 08/22/2005 015 Impaired glucose tolerance test 08/22/2005 09/28/2014 Myalgia and myositis, unspecified 01/21/2005 06/02/2021 Shortness of breath 01/25/2015 Morbid obesity due to excess calories 06/02/2021 Overview: Obesity Family history of malignant neoplasm of gastrointestinal tract 06/02/2021 Overview: family history of colon cancer documented as of this encounter (statuses as of 07/27/2021) [facility] of Past illness Narrative* Problem Noted Date Resolved Date Left groin pain 02/17/2020 06/02/2021 Morbid obesity 01/29/2020 06/02/2021 Last Assessment & Plan: Assessment: Body mass index is 40.03 kg/m . Malnutrition of mild degree 01/27/202005/07 Type 2 diabetes mellitus 01/26/2020 022 Need for vaccination 03/13/2018 06/02/2021 Chronic bronchitis 03/13/2018 06/02/2021 Rotator cuff syndrome of left shoulder 8 06/02/2021 History of colonic polyps 12/02/20152015 Family history of colon cancer in mother 016 12/02/2015 Hypertriglyceridemia 10/06/2015 06/02/2021 Last Assessment & Plan: tgs are well controlled on the fenofibrate. 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 Lumpectomy, completed radiation 06/27/10. No chemotherapy. 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 06/02/2021 Last Assessment & Plan: Assessment: controlled, albuterol as needed Hypercalcemia 12/07/2005 06/02/2021 Last Assessment & Plan: Well controlled Pure hypercholesterolemia 08/22/20052021 Last Assessment & Plan: Assessment: c/w statin Impaired fasting glucose 08/22/2005 015 Impaired glucose tolerance test 08/22/2005 09/28/2014 Myalgia and myositis, unspecified 01/21/2005 06/02/2021 Shortness of breath 01/25/2015 Morbid obesity due to excess calories 06/02/2021 Overview: Obesity Family history of malignant neoplasm of gastrointestinal tract 06/02/2021 Overview: family history of colon cancer documented as of this encounter (statuses as of 07/27/2021) [facility] Past illness Narrative* Problem Noted Date Resolved Date Left groin pain 02/17/2020 06/02/2021 Morbid obesity 01/29/2020 06/02/2021 Last Assessment & Plan: Assessment: Body mass index is 40.03 kg/m . Malnutrition of mild degree 01/27/202005/07 Type 2 diabetes mellitus 01/26/2020 022 Need for vaccination 03/13/2018 06/02/2021 Chronic bronchitis 03/13/2018 06/02/2021 Rotator cuff syndrome of left shoulder 8 06/02/2021 History of colonic polyps 12/02/20152015 Family history of colon cancer in mother 016 12/02/2015 Hypertriglyceridemia 10/06/2015 06/02/2021 Last Assessment & Plan: tgs are well controlled on the fenofibrate. 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 Lumpectomy, completed radiation 06/27/10. No chemotherapy. 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 06/02/2021 Last Assessment & Plan: Assessment: controlled, albuterol as needed Hypercalcemia 12/07/2005 06/02/2021 Last Assessment & Plan: Well controlled Pure hypercholesterolemia 08/22/20052021 Last Assessment & Plan: Assessment: c/w statin Impaired fasting glucose 08/22/2005 015 Impaired glucose tolerance test 08/22/2005 09/28/2014 Myalgia and myositis, unspecified 01/21/2005 06/02/2021 Shortness of breath 01/25/2015 Morbid obesity due to excess calories 06/02/2021 Overview: Obesity Family history of malignant neoplasm of gastrointestinal tract 06/02/2021 Overview: family history of colon cancer documented as of this encounter (statuses as of 08/23/2021) [facility]01-12-2021 History of Past illness Narrative* Problem Noted Date Resolved Date Left groin pain 02/17/2020 06/02/2021 Morbid obesity 01/29/2020 06/02/2021 Last Assessment & Plan: Assessment: Body mass index is 40.03 kg/m . Malnutrition of mild degree 01/27/202005/07 Type 2 diabetes mellitus 01/26/2020 022 Need for vaccination 03/13/2018 06/02/2021 Chronic bronchitis 03/13/2018 06/02/2021 Rotator cuff syndrome of left shoulder 8 06/02/2021 History of colonic polyps 12/02/20152015 Family history of colon cancer in mother 016 12/02/2015 Hypertriglyceridemia 10/06/2015 06/02/2021 Last Assessment & Plan: tgs are well controlled on the fenofibrate. 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 Lumpectomy, completed radiation 06/27/10. No chemotherapy. 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 06/02/2021 Last Assessment & Plan: Assessment: controlled, albuterol as needed Hypercalcemia 12/07/2005 06/02/2021 Last Assessment & Plan: Well controlled Pure hypercholesterolemia 08/22/20052021 Last Assessment & Plan: Assessment: c/w statin Impaired fasting glucose 08/22/2005 015 Impaired glucose tolerance test 08/22/2005 09/28/2014 Myalgia and myositis, unspecified 01/21/2005 06/02/2021 Shortness of breath 01/25/2015 Morbid obesity due to excess calories 06/02/2021 Overview: Obesity Family history of malignant neoplasm of gastrointestinal tract 06/02/2021 Overview: family history of colon cancer documented as of this encounter (statuses as of 09/06/2021) [facility]01-12-2021 History of Past illness Narrative* Problem Noted Date Resolved Date Left groin pain 02/17/2020 06/02/2021 Morbid obesity 01/29/2020 06/02/2021 Last Assessment & Plan: Assessment: Body mass index is 40.03 kg/m . Malnutrition of mild degree 01/27/202005/07 Type 2 diabetes mellitus 01/26/2020 022 Need for vaccination 03/13/2018 06/02/2021 Chronic bronchitis 03/13/2018 06/02/2021 Rotator cuff syndrome of left shoulder 8 06/02/2021 History of colonic polyps 12/02/20152015 Family history of colon cancer in mother 016 12/02/2015 Hypertriglyceridemia 10/06/2015 06/02/2021 Last Assessment & Plan: tgs are well controlled on the fenofibrate. 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 Lumpectomy, completed radiation 06/27/10. No chemotherapy. 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 06/02/2021 Last Assessment & Plan: Assessment: controlled, albuterol as needed Hypercalcemia 12/07/2005 06/02/2021 Last Assessment & Plan: Well controlled Pure hypercholesterolemia 08/22/20052021 Last Assessment & Plan: Assessment: c/w statin Impaired fasting glucose 08/22/2005 015 Impaired glucose tolerance test 08/22/2005 09/28/2014 Myalgia and myositis, unspecified 01/21/2005 06/02/2021 Shortness of breath 01/25/2015 Morbid obesity due to excess calories 06/02/2021 Overview: Obesity Family history of malignant neoplasm of gastrointestinal tract 06/02/2021 Overview: family history of colon cancer documented as of this encounter (statuses as of 09/12/2021) [facility]01-12-2021 History of Past illness Narrative* Problem Noted Date Resolved Date Left groin pain 02/17/2020 06/02/2021 Morbid obesity 01/29/2020 06/02/2021 Last Assessment & Plan: Assessment: Body mass index is 40.03 kg/m . Malnutrition of mild degree 01/27/202005/07 Type 2 diabetes mellitus 01/26/2020 022 Need for vaccination 03/13/2018 06/02/2021 Chronic bronchitis 03/13/2018 06/02/2021 Rotator cuff syndrome of left shoulder 8 06/02/2021 History of colonic polyps 12/02/20152015 Family history of colon cancer in mother 016 12/02/2015 Hypertriglyceridemia 10/06/2015 06/02/2021 Last Assessment & Plan: tgs are well controlled on the fenofibrate. 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 Lumpectomy, completed radiation 06/27/10. No chemotherapy. 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 06/02/2021 Last Assessment & Plan: Assessment: controlled, albuterol as needed Hypercalcemia 12/07/2005 06/02/2021 Last Assessment & Plan: Well controlled Pure hypercholesterolemia 08/22/20052021 Last Assessment & Plan: Assessment: c/w statin Impaired fasting glucose 08/22/2005 015 Impaired glucose tolerance test 08/22/2005 09/28/2014 Myalgia and myositis, unspecified 01/21/2005 06/02/2021 Shortness of breath 01/25/2015 Morbid obesity due to excess calories 06/02/2021 Overview: Obesity Family history of malignant neoplasm of gastrointestinal tract 06/02/2021 Overview: family history of colon cancer documented as of this encounter (statuses as of 09/20/2021) [facility]01-12-2021 History of Past illness Narrative* Problem Noted Date Resolved Date Left groin pain 02/17/2020 06/02/2021 Morbid obesity 01/29/2020 06/02/2021 Last Assessment & Plan: Assessment: Body mass index is 40.03 kg/m . Malnutrition of mild degree 01/27/202005/07 Type 2 diabetes mellitus 01/26/2020 022 Need for vaccination 03/13/2018 06/02/2021 Chronic bronchitis 03/13/2018 06/02/2021 Rotator cuff syndrome of left shoulder 8 06/02/2021 History of colonic polyps 12/02/20152015 Family history of colon cancer in mother 016 12/02/2015 Hypertriglyceridemia 10/06/2015 06/02/2021 Last Assessment & Plan: tgs are well controlled on the fenofibrate. 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 Lumpectomy, completed radiation 06/27/10. No chemotherapy. 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 06/02/2021 Last Assessment & Plan: Assessment: controlled, albuterol as needed Hypercalcemia 12/07/2005 06/02/2021 Last Assessment & Plan: Well controlled Pure hypercholesterolemia 08/22/20052021 Last Assessment & Plan: Assessment: c/w statin Impaired fasting glucose 08/22/2005 015 Impaired glucose tolerance test 08/22/2005 09/28/2014 Myalgia and myositis, unspecified 01/21/2005 06/02/2021 Shortness of breath 01/25/2015 Morbid obesity due to excess calories 06/02/2021 Overview: Obesity Family history of malignant neoplasm of gastrointestinal tract 06/02/2021 Overview: family history of colon cancer documented as of this encounter (statuses as of 09/22/2021) [facility]01-12-[facility]21 History of Past illness Narrative* Problem Noted Date Resolved Date Left groin pain 02/17/2020 06/02/2021 Morbid obesity 01/29/2020 06/02/2021 Last Assessment & Plan: Assessment: Body mass index is 40.03 kg/m . Malnutrition of mild degree 01/27/202005/07 Type 2 diabetes mellitus 01/26/2020 022 Need for vaccination 03/13/2018 06/02/2021 Chronic bronchitis 03/13/2018 06/02/2021 Rotator cuff syndrome of left shoulder 8 06/02/2021 History of colonic polyps 12/02/20152015 Family history of colon cancer in mother 016 12/02/2015 Hypertriglyceridemia 10/06/2015 06/02/2021 Last Assessment & Plan: tgs are well controlled on the fenofibrate. 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 Lumpectomy, completed radiation 06/27/10. No chemotherapy. 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 06/02/2021 Last Assessment & Plan: Assessment: controlled, albuterol as needed Hypercalcemia 12/07/2005 06/02/2021 Last Assessment & Plan: Well controlled Pure hypercholesterolemia 08/22/20052021 Last Assessment & Plan: Assessment: c/w statin Impaired fasting glucose 08/22/2005 015 Impaired glucose tolerance test 08/22/2005 09/28/2014 Myalgia and myositis, unspecified 01/21/2005 06/02/2021 Shortness of breath 01/25/2015 Morbid obesity due to excess calories 06/02/2021 Overview: Obesity Family history of malignant neoplasm of gastrointestinal tract 06/02/2021 Overview: family history of colon cancer documented as of this encounter (statuses as of 10/13/2021) [facility]01-12-[facility]21 History of Past illness Narrative* Problem Noted Date Resolved Date Left groin pain 02/17/2020 06/02/2021 Morbid obesity 01/29/2020 06/02/2021 Last Assessment & Plan: Assessment: Body mass index is 40.03 kg/m . Malnutrition of mild degree 01/27/202005/07 Type 2 diabetes mellitus 01/26/2020 022 Need for vaccination 03/13/2018 06/02/2021 Chronic bronchitis 03/13/2018 06/02/2021 Rotator cuff syndrome of left shoulder 8 06/02/2021 History of colonic polyps 12/02/20152015 Family history of colon cancer in mother 016 12/02/2015 Hypertriglyceridemia 10/06/2015 06/02/2021 Last Assessment & Plan: tgs are well controlled on the fenofibrate. 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 Lumpectomy, completed radiation 06/27/10. No chemotherapy. 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 06/02/2021 Last Assessment & Plan: Assessment: controlled, albuterol as needed Hypercalcemia 12/07/2005 06/02/2021 Last Assessment & Plan: Well controlled Pure hypercholesterolemia 08/22/20052021 Last Assessment & Plan: Assessment: c/w statin Impaired fasting glucose 08/22/2005 015 Impaired glucose tolerance test 08/22/2005 09/28/2014 Myalgia and myositis, unspecified 01/21/2005 06/02/2021 Shortness of breath 01/25/2015 Morbid obesity due to excess calories 06/02/2021 Overview: Obesity Family history of malignant neoplasm of gastrointestinal tract 06/02/2021 Overview: family history of colon cancer documented as of this encounter (statuses as of 10/18/2021) [facility]01[facility]12[facility]21 History of Past illness Narrative* Problem Noted Date Resolved Date Left groin pain 02/17/2020 06/02/2021 Morbid obesity 01/29/2020 06/02/2021 Last Assessment & Plan: Assessment: Body mass index is 40.03 kg/m . Malnutrition of mild degree 01/27/202005/07 Type 2 diabetes mellitus 01/26/2020 022 Need for vaccination 03/13/2018 06/02/2021 Chronic bronchitis 03/13/2018 06/02/2021 Rotator cuff syndrome of left shoulder 8 06/02/2021 History of colonic polyps 12/02/20152015 Family history of colon cancer in mother 016 12/02/2015 Hypertriglyceridemia 10/06/2015 06/02/2021 Last Assessment & Plan: tgs are well controlled on the fenofibrate. 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 Lumpectomy, completed radiation 06/27/10. No chemotherapy. 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 06/02/2021 Last Assessment & Plan: Assessment: controlled, albuterol as needed Hypercalcemia 12/07/2005 06/02/2021 Last Assessment & Plan: Well controlled Pure hypercholesterolemia 08/22/20052021 Last Assessment & Plan: Assessment: c/w statin Impaired fasting glucose 08/22/2005 015 Impaired glucose tolerance test 08/22/2005 09/28/2014 Myalgia and myositis, unspecified 01/21/2005 06/02/2021 Shortness of breath 01/25/2015 Morbid obesity due to excess calories 06/02/2021 Overview: Obesity Family history of malignant neoplasm of gastrointestinal tract 06/02/2021 Overview: family history of colon cancer documented as of this encounter (statuses as of 10/31/2021) [facility]01[facility] History of Past illness Narrative* Problem Noted Date Resolved Date Left groin pain 02/17/2020 06/02/2021 Morbid obesity 01/29/2020 06/02/2021 Last Assessment & Plan: Assessment: Body mass index is 40.03 kg/m . Malnutrition of mild degree 01/27/2020 0409/2021 Type 2 diabetes mellitus 01/26/2020 022 Need for vaccination 03/13/2018 06/02/2021 Chronic bronchitis 03/13/2018 06/02/2021 Rotator cuff syndrome of left shoulder 8 06/02/2021 History of colonic polyps 12/02/20152015 Family history of colon cancer in mother 016 12/02/2015 Hypertriglyceridemia 10/06/2015 06/02/2021 Last Assessment & Plan: tgs are well controlled on the fenofibrate. 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 Lumpectomy, completed radiation 06/27/10. No chemotherapy. 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 06/02/2021 Last Assessment & Plan: Assessment: controlled, albuterol as needed Hypercalcemia 12/07/2005 06/02/2021 Last Assessment & Plan: Well controlled Pure hypercholesterolemia 08/22/20052021 Last Assessment & Plan: Assessment: c/w statin Impaired fasting glucose 08/22/2005 015 Impaired glucose tolerance test 08/22/2005 09/28/2014 Myalgia and myositis, unspecified 01/21/2005 06/02/2021 Shortness of breath 01/25/2015 Morbid obesity due to excess calories 06/02/2021 Overview: Obesity Family history of malignant neoplasm of gastrointestinal tract 06/02/2021 Overview: family history of colon cancer documented as of this encounter (statuses as of 11/04/2021) [facility] History of Past illness Narrative* Problem Noted Date Resolved Date Left groin pain 02/17/2020 06/02/2021 Morbid obesity 01/29/2020 06/02/2021 Last Assessment & Plan: Assessment: Body mass index is 40.03 kg/m . Malnutrition of mild degree 01/27/202005/07 Type 2 diabetes mellitus 01/26/2020 022 Need for vaccination 03/13/2018 06/02/2021 Chronic bronchitis 03/13/2018 06/02/2021 Rotator cuff syndrome of left shoulder 8 06/02/2021 History of colonic polyps 12/02/20152015 Family history of colon cancer in mother 016 12/02/2015 Hypertriglyceridemia 10/06/2015 06/02/2021 Last Assessment & Plan: tgs are well controlled on the fenofibrate. 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 Lumpectomy, completed radiation 06/27/10. No chemotherapy. 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 06/02/2021 Last Assessment & Plan: Assessment: controlled, albuterol as needed Hypercalcemia 12/07/2005 06/02/2021 Last Assessment & Plan: Well controlled Pure hypercholesterolemia 08/22/20052021 Last Assessment & Plan: Assessment: c/w statin Impaired fasting glucose 08/22/2005 015 Impaired glucose tolerance test 08/22/2005 09/28/2014 Myalgia and myositis, unspecified 01/21/2005 06/02/2021 Shortness of breath 01/25/2015 Morbid obesity due to excess calories 06/02/2021 Overview: Obesity Family history of malignant neoplasm of gastrointestinal tract 06/02/2021 Overview: family history of colon cancer documented as of this encounter (statuses as of 11/14/2021) [facility] History of Past illness Narrative* Problem Noted Date Resolved Date Left groin pain 02/17/2020 06/02/2021 Morbid obesity 01/29/2020 06/02/2021 Last Assessment & Plan: Assessment: Body mass index is 40.03 kg/m . Malnutrition of mild degree 01/27/202005/07 Type 2 diabetes mellitus 01/26/2020 022 Need for vaccination 03/13/2018 06/02/2021 Chronic bronchitis 03/13/2018 06/02/2021 Rotator cuff syndrome of left shoulder 8 06/02/2021 History of colonic polyps 12/02/20152015 Family history of colon cancer in mother 016 12/02/2015 Hypertriglyceridemia 10/06/2015 06/02/2021 Last Assessment & Plan: tgs are well controlled on the fenofibrate. 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 Lumpectomy, completed radiation 06/27/10. No chemotherapy. 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 06/02/2021 Last Assessment & Plan: Assessment: controlled, albuterol as needed Hypercalcemia 12/07/2005 06/02/2021 Last Assessment & Plan: Well controlled Pure hypercholesterolemia 08/22/20052021 Last Assessment & Plan: Assessment: c/w statin Impaired fasting glucose 08/22/2005 015 Impaired glucose tolerance test 08/22/2005 09/28/2014 Myalgia and myositis, unspecified 01/21/2005 06/02/2021 Shortness of breath 01/25/2015 Morbid obesity due to excess calories 06/02/2021 Overview: Obesity Family history of malignant neoplasm of gastrointestinal tract 06/02/2021 Overview: family history of colon cancer documented as of this encounter (statuses as of 11/25/2021) [facility] History of Past illness Narrative* Problem Noted Date Resolved Date Left groin pain 02/17/2020 06/02/2021 Morbid obesity 01/29/2020 06/02/2021 Last Assessment & Plan: Assessment: Body mass index is 40.03 kg/m . Malnutrition of mild degree 01/27/202005/07 Type 2 diabetes mellitus 01/26/2020 022 Need for vaccination 03/13/2018 06/02/2021 Chronic bronchitis 03/13/2018 06/02/2021 Rotator cuff syndrome of left shoulder 8 06/02/2021 History of colonic polyps 12/02/20152015 Family history of colon cancer in mother 016 12/02/2015 Hypertriglyceridemia 10/06/2015 06/02/2021 Last Assessment & Plan: tgs are well controlled on the fenofibrate. 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 Lumpectomy, completed radiation 06/27/10. No chemotherapy. 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 06/02/2021 Last Assessment & Plan: Assessment: controlled, albuterol as needed Hypercalcemia 12/07/2005 06/02/2021 Last Assessment & Plan: Well controlled Pure hypercholesterolemia 08/22/20052021 Last Assessment & Plan: Assessment: c/w statin Impaired fasting glucose 08/22/2005 015 Impaired glucose tolerance test 08/22/2005 09/28/2014 Myalgia and myositis, unspecified 01/21/2005 06/02/2021 Shortness of breath 01/25/2015 Morbid obesity due to excess calories 06/02/2021 Overview: Obesity Family history of malignant neoplasm of gastrointestinal tract 06/02/2021 Overview: family history of colon cancer documented as of this encounter (statuses as of 11/29/2021) [facility]01-12-2021 History of Past illness Narrative* Problem Noted Date Resolved Date Left groin pain 02/17/2020 06/02/2021 Morbid obesity 01/29/2020 06/02/2021 Last Assessment & Plan: Assessment: Body mass index is 40.03 kg/m . Malnutrition of mild degree 01/27/202005/07 Type 2 diabetes mellitus 01/26/2020 022 Need for vaccination 03/13/2018 06/02/2021 Chronic bronchitis 03/13/2018 06/02/2021 Rotator cuff syndrome of left shoulder 8 06/02/2021 History of colonic polyps 12/02/20152015 Family history of colon cancer in mother 016 12/02/2015 Hypertriglyceridemia 10/06/2015 06/02/2021 Last Assessment & Plan: tgs are well controlled on the fenofibrate. 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 Lumpectomy, completed radiation 06/27/10. No chemotherapy. 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 06/02/2021 Last Assessment & Plan: Assessment: controlled, albuterol as needed Hypercalcemia 12/07/2005 06/02/2021 Last Assessment & Plan: Well controlled Pure hypercholesterolemia 08/22/20052021 Last Assessment & Plan: Assessment: c/w statin Impaired fasting glucose 08/22/2005 015 Impaired glucose tolerance test 08/22/2005 09/28/2014 Myalgia and myositis, unspecified 01/21/2005 06/02/2021 Shortness of breath 01/25/2015 Morbid obesity due to excess calories 06/02/2021 Overview: Obesity Family history of malignant neoplasm of gastrointestinal tract 06/02/2021 Overview: family history of colon cancer documented as of this encounter (statuses as of 12/01/2021) [facility]01-12-2021 History of Past illness Narrative* Problem Noted Date Resolved Date Left groin pain 02/17/2020 06/02/2021 Morbid obesity 01/29/2020 06/02/2021 Last Assessment & Plan: Assessment: Body mass index is 40.03 kg/m . Malnutrition of mild degree 01/27/2020 04/09/2021 Type 2 diabetes mellitus 01/26/2020 022 Need for vaccination 03/13/2018 06/02/2021 Chronic bronchitis 03/13/2018 06/02/2021 Rotator cuff syndrome of left shoulder 8 06/02/2021 History of colonic polyps 12/02/20152015 Family history of colon cancer in mother 016 12/02/2015 Hypertriglyceridemia 10/06/2015 06/02/2021 Last Assessment & Plan: tgs are well controlled on the fenofibrate. 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 Lumpectomy, completed radiation 06/27/10. No chemotherapy. 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 06/02/2021 Last Assessment & Plan: Assessment: controlled, albuterol as needed Hypercalcemia 12/07/2005 06/02/2021 Last Assessment & Plan: Well controlled Pure hypercholesterolemia 08/22/20052021 Last Assessment & Plan: Assessment: c/w statin Impaired fasting glucose 08/22/2005 015 Impaired glucose tolerance test 08/22/2005 09/28/2014 Myalgia and myositis, unspecified 01/21/2005 06/02/2021 Shortness of breath 01/25/2015 Morbid obesity due to excess calories 06/02/2021 Overview: Obesity Family history of malignant neoplasm of gastrointestinal tract 06/02/2021 Overview: family history of colon cancer documented as of this encounter (statuses as of 12/01/2021) [facility]01-12-2021 History of Past illness Narrative* Problem Noted Date Resolved Date Left groin pain 02/17/2020 06/02/2021 Morbid obesity 01/29/2020 06/02/2021 Last Assessment & Plan: Assessment: Body mass index is 40.03 kg/m . Malnutrition of mild degree 01/27/202005/07 Type 2 diabetes mellitus 01/26/2020 022 Need for vaccination 03/13/2018 06/02/2021 Chronic bronchitis 03/13/2018 06/02/2021 Rotator cuff syndrome of left shoulder 8 06/02/2021 History of colonic polyps 12/02/20152015 Family history of colon cancer in mother 016 12/02/2015 Hypertriglyceridemia 10/06/2015 06/02/2021 Last Assessment & Plan: tgs are well controlled on the fenofibrate. 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 Lumpectomy, completed radiation 06/27/10. No chemotherapy. 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 06/02/2021 Last Assessment & Plan: Assessment: controlled, albuterol as needed Hypercalcemia 12/07/2005 06/02/2021 Last Assessment & Plan: Well controlled Pure hypercholesterolemia 08/22/20052021 Last Assessment & Plan: Assessment: c/w statin Impaired fasting glucose 08/22/2005 015 Impaired glucose tolerance test 08/22/2005 09/28/2014 Myalgia and myositis, unspecified 01/21/2005 06/02/2021 Shortness of breath 01/25/2015 Morbid obesity due to excess calories 06/02/2021 Overview: Obesity Family history of malignant neoplasm of gastrointestinal tract 06/02/2021 Overview: family history of colon cancer documented as of this encounter (statuses as of 12/06/2021) [facility]01-12-2021 History of Past illness Narrative* Problem Noted Date Resolved Date Left groin pain 02/17/2020 06/02/2021 Morbid obesity 01/29/2020 06/02/2021 Last Assessment & Plan: Assessment: Body mass index is 40.03 kg/m . Malnutrition of mild degree 01/27/202005/07 Type 2 diabetes mellitus 01/26/2020 022 Need for vaccination 03/13/2018 06/02/2021 Chronic bronchitis 03/13/2018 06/02/2021 Rotator cuff syndrome of left shoulder 8 06/02/2021 History of colonic polyps 12/02/20152015 Family history of colon cancer in mother 016 12/02/2015 Hypertriglyceridemia 10/06/2015 06/02/2021 Last Assessment & Plan: tgs are well controlled on the fenofibrate. 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 Lumpectomy, completed radiation 06/27/10. No chemotherapy. 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 06/02/2021 Last Assessment & Plan: Assessment: controlled, albuterol as needed Hypercalcemia 12/07/2005 06/02/2021 Last Assessment & Plan: Well controlled Pure hypercholesterolemia 08/22/20052021 Last Assessment & Plan: Assessment: c/w statin Impaired fasting glucose 08/22/2005 015 Impaired glucose tolerance test 08/22/2005 09/28/2014 Myalgia and myositis, unspecified 01/21/2005 06/02/2021 Shortness of breath 01/25/2015 Morbid obesity due to excess calories 06/02/2021 Overview: Obesity Family history of malignant neoplasm of gastrointestinal tract 06/02/2021 Overview: family history of colon cancer documented as of this encounter (statuses as of 12/08/2021) [facility]01-12-[facility]21 History of Past illness Narrative* Problem Noted Date Resolved Date Left groin pain 02/17/2020 06/02/2021 Morbid obesity 01/29/2020 06/02/2021 Last Assessment & Plan: Assessment: Body mass index is 40.03 kg/m . Malnutrition of mild degree 01/27/202005/07 Type 2 diabetes mellitus 01/26/2020 022 Need for vaccination 03/13/2018 06/02/2021 Chronic bronchitis 03/13/2018 06/02/2021 Rotator cuff syndrome of left shoulder 8 06/02/2021 History of colonic polyps 12/02/20152015 Family history of colon cancer in mother 016 12/02/2015 Hypertriglyceridemia 10/06/2015 06/02/2021 Last Assessment & Plan: tgs are well controlled on the fenofibrate. 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 Lumpectomy, completed radiation 06/27/10. No chemotherapy. 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 06/02/2021 Last Assessment & Plan: Assessment: controlled, albuterol as needed Hypercalcemia 12/07/2005 06/02/2021 Last Assessment & Plan: Well controlled Pure hypercholesterolemia 08/22/20052021 Last Assessment & Plan: Assessment: c/w statin Impaired fasting glucose 08/22/2005 015 Impaired glucose tolerance test 08/22/2005 09/28/2014 Myalgia and myositis, unspecified 01/21/2005 06/02/2021 Shortness of breath 01/25/2015 Morbid obesity due to excess calories 06/02/2021 Overview: Obesity Family history of malignant neoplasm of gastrointestinal tract 06/02/2021 Overview: family history of colon cancer documented as of this encounter (statuses as of 12/09/2021) [facility]01-12-2021 History of Past illness Narrative* Problem Noted Date Resolved Date Left groin pain 02/17/2020 06/02/2021 Morbid obesity 01/29/2020 06/02/2021 Last Assessment & Plan: Assessment: Body mass index is 40.03 kg/m . Malnutrition of mild degree 01/27/202005/07 Type 2 diabetes mellitus 01/26/2020 022 Need for vaccination 03/13/2018 06/02/2021 Chronic bronchitis 03/13/2018 06/02/2021 Rotator cuff syndrome of left shoulder 8 06/02/2021 History of colonic polyps 12/02/20152015 Family history of colon cancer in mother 016 12/02/2015 Hypertriglyceridemia 10/06/2015 06/02/2021 Last Assessment & Plan: tgs are well controlled on the fenofibrate. 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 Lumpectomy, completed radiation 06/27/10. No chemotherapy. 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 06/02/2021 Last Assessment & Plan: Assessment: controlled, albuterol as needed Hypercalcemia 12/07/2005 06/02/2021 Last Assessment & Plan: Well controlled Pure hypercholesterolemia 08/22/20052021 Last Assessment & Plan: Assessment: c/w statin Impaired fasting glucose 08/22/2005 015 Impaired glucose tolerance test 08/22/2005 09/28/2014 Myalgia and myositis, unspecified 01/21/2005 06/02/2021 Shortness of breath 01/25/2015 Morbid obesity due to excess calories 06/02/2021 Overview: Obesity Family history of malignant neoplasm of gastrointestinal tract 06/02/2021 Overview: family history of colon cancer documented as of this encounter (statuses as of 12/14/2021) [facility]01-12-[facility]21 History of Past illness Narrative* Problem Noted Date Resolved Date Left groin pain 02/17/2020 06/02/2021 Morbid obesity 01/29/2020 06/02/2021 Last Assessment & Plan: Assessment: Body mass index is 40.03 kg/m . Malnutrition of mild degree 01/27/202005/07 Type 2 diabetes mellitus 01/26/2020 022 Need for vaccination 03/13/2018 06/02/2021 Chronic bronchitis 03/13/2018 06/02/2021 Rotator cuff syndrome of left shoulder 8 06/02/2021 History of colonic polyps 12/02/20152015 Family history of colon cancer in mother 016 12/02/2015 Hypertriglyceridemia 10/06/2015 06/02/2021 Last Assessment & Plan: tgs are well controlled on the fenofibrate. 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 Lumpectomy, completed radiation 06/27/10. No chemotherapy. 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 06/02/2021 Last Assessment & Plan: Assessment: controlled, albuterol as needed Hypercalcemia 12/07/2005 06/02/2021 Last Assessment & Plan: Well controlled Pure hypercholesterolemia 08/22/20052021 Last Assessment & Plan: Assessment: c/w statin Impaired fasting glucose 08/22/2005 015 Impaired glucose tolerance test 08/22/2005 09/28/2014 Myalgia and myositis, unspecified 01/21/2005 06/02/2021 Shortness of breath 01/25/2015 Morbid obesity due to excess calories 06/02/2021 Overview: Obesity Family history of malignant neoplasm of gastrointestinal tract 06/02/2021 Overview: family history of colon cancer documented as of this encounter (statuses as of 12/15/2021) [facility]01[facility]12[facility]21 History of Past illness Narrative* Problem Noted Date Resolved Date Left groin pain 02/17/2020 06/02/2021 Morbid obesity 01/29/2020 06/02/2021 Last Assessment & Plan: Assessment: Body mass index is 40.03 kg/m . Malnutrition of mild degree 01/27/202005/07 Type 2 diabetes mellitus 01/26/2020 022 Need for vaccination 03/13/2018 06/02/2021 Chronic bronchitis 03/13/2018 06/02/2021 Rotator cuff syndrome of left shoulder 8 06/02/2021 History of colonic polyps 12/02/20152015 Family history of colon cancer in mother 016 12/02/2015 Hypertriglyceridemia 10/06/2015 06/02/2021 Last Assessment & Plan: tgs are well controlled on the fenofibrate. 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 Lumpectomy, completed radiation 06/27/10. No chemotherapy. 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 06/02/2021 Last Assessment & Plan: Assessment: controlled, albuterol as needed Hypercalcemia 12/07/2005 06/02/2021 Last Assessment & Plan: Well controlled Pure hypercholesterolemia 08/22/20052021 Last Assessment & Plan: Assessment: c/w statin Impaired fasting glucose 08/22/2005 015 Impaired glucose tolerance test 08/22/2005 09/28/2014 Myalgia and myositis, unspecified 01/21/2005 06/02/2021 Shortness of breath 01/25/2015 Morbid obesity due to excess calories 06/02/2021 Overview: Obesity Family history of malignant neoplasm of gastrointestinal tract 06/02/2021 Overview: family history of colon cancer documented as of this encounter (statuses as of 12/15/2021) [facility] History of Past illness Narrative* Problem Noted Date Resolved Date Left groin pain 02/17/2020 06/02/2021 Morbid obesity 01/29/2020 06/02/2021 Last Assessment & Plan: Assessment: Body mass index is 40.03 kg/m . Malnutrition of mild degree 01/27/202005/07 Type 2 diabetes mellitus 01/26/2020 022 Need for vaccination 03/13/2018 06/02/2021 Chronic bronchitis 03/13/2018 06/02/2021 Rotator cuff syndrome of left shoulder 8 06/02/2021 History of colonic polyps 12/02/20152015 Family history of colon cancer in mother 016 12/02/2015 Hypertriglyceridemia 10/06/2015 06/02/2021 Last Assessment & Plan: tgs are well controlled on the fenofibrate. 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 Lumpectomy, completed radiation 06/27/10. No chemotherapy. 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 06/02/2021 Last Assessment & Plan: Assessment: controlled, albuterol as needed Hypercalcemia 12/07/2005 06/02/2021 Last Assessment & Plan: Well controlled Pure hypercholesterolemia 08/22/20052021 Last Assessment & Plan: Assessment: c/w statin Impaired fasting glucose 08/22/2005 015 Impaired glucose tolerance test 08/22/2005 09/28/2014 Myalgia and myositis, unspecified 01/21/2005 06/02/2021 Shortness of breath 01/25/2015 Morbid obesity due to excess calories 06/02/2021 Overview: Obesity Family history of malignant neoplasm of gastrointestinal tract 06/02/2021 Overview: family history of colon cancer documented as of this encounter (statuses as of 2021) [facility] History of Past illness Narrative* Problem Noted Date Resolved Date Left groin pain 02/17/2020 06/02/2021 Morbid obesity 01/29/2020 06/02/2021 Last Assessment & Plan: Assessment: Body mass index is 40.03 kg/m . Malnutrition of mild degree 01/27/202005/07 Type 2 diabetes mellitus 01/26/2020 022 COPD (chronic obstructive pu lmonary disease) with chronic bronchitis 01/26/2020 01/16/2022 Last Assessment & Plan: Assessment: albuterol as needed, non-smoker, 50 year household exposure Need for vaccination 03/13/2018 06/02/2021 Chronic bronchitis 03/13/2018 06/02/2021 Rotator cuff syndrome of left shoulder 8 06/02/2021 History of colonic polyps 12/02/20152015 Family history of colon cancer in mother 016 12/02/2015 Hypertriglyceridemia 10/06/2015 06/02/2021 Last Assessment & Plan: tgs are well controlled on the fenofibrate. 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 Lumpectomy, completed radiation 06/27/10. No chemotherapy. 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 06/02/2021 Last Assessment & Plan: Assessment: controlled, albuterol as needed Hypercalcemia 12/07/2005 06/02/2021 Last Assessment & Plan: Well controlled Pure hypercholesterolemia 08/22/20052021 Last Assessment & Plan: Assessment: c/w statin Impaired fasting glucose 08/22/2005 015 Impaired glucose tolerance test 08/22/2005 09/28/2014 Myalgia and myositis, unspecified 01/21/2005 06/02/2021 Shortness of breath 01/25/2015 Morbid obesity due to excess calories 06/02/2021 Overview: Obesity Family history of malignant neoplasm of gastrointestinal tract 06/02/2021 Overview: family history of colon cancer Diaphragmatic hernia without mention of obstruction or gangrene 01/16/2022 documented as of this encounter (statuses as of 01/16/2022) [facility] History of Past illness Narrative* Problem Noted Date Resolved Date Left groin pain 02/17/2020 06/02/2021 Morbid obesity 01/29/2020 06/02/2021 Last Assessment & Plan: Assessment: Body mass index is 40.03 kg/m . Malnutrition of mild degree 01/27/202005/07 Type 2 diabetes mellitus 01/26/2020 022 COPD (chronic obstructive pu lmonary disease) with chronic bronchitis 01/26/2020 01/16/2022 Last Assessment & Plan: Assessment: albuterol as needed, non-smoker, 50 year household exposure Need for vaccination 03/13/2018 06/02/2021 Chronic bronchitis 03/13/2018 06/02/2021 Rotator cuff syndrome of left shoulder 8 06/02/2021 History of colonic polyps 12/02/20152015 Family history of colon cancer in mother 016 12/02/2015 Hypertriglyceridemia 10/06/2015 06/02/2021 Last Assessment & Plan: tgs are well controlled on the fenofibrate. 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 Lumpectomy, completed radiation 06/27/10. No chemotherapy. 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 06/02/2021 Last Assessment & Plan: Assessment: controlled, albuterol as needed Hypercalcemia 12/07/2005 06/02/2021 Last Assessment & Plan: Well controlled Pure hypercholesterolemia 08/22/20052021 Last Assessment & Plan: Assessment: c/w statin Impaired fasting glucose 08/22/2005 015 Impaired glucose tolerance test 08/22/2005 09/28/2014 Myalgia and myositis, unspecified 01/21/2005 06/02/2021 Shortness of breath 01/25/2015 Morbid obesity due to excess calories 06/02/2021 Overview: Obesity Family history of malignant neoplasm of gastrointestinal tract 06/02/2021 Overview: family history of colon cancer Diaphragmatic hernia without mention of obstruction or gangrene 01/16/2022 documented as of this encounter (statuses as of 01/16/2022) [facility] History of Past illness Narrative* Problem Noted Date Resolved Date Left groin pain 02/17/2020 06/02/2021 Morbid obesity 01/29/2020 06/02/2021 Last Assessment & Plan: Assessment: Body mass index is 40.03 kg/m . Malnutrition of mild degree 01/27/202005/07 Type 2 diabetes mellitus 01/26/2020 022 COPD (chronic obstructive pu lmonary disease) with chronic bronchitis 01/26/2020 01/16/2022 Last Assessment & Plan: Assessment: albuterol as needed, non-smoker, 50 year household exposure Need for vaccination 03/13/2018 06/02/2021 Chronic bronchitis 03/13/2018 06/02/2021 Rotator cuff syndrome of left shoulder 8 06/02/2021 History of colonic polyps 12/02/20152015 Family history of colon cancer in mother 016 12/02/2015 Hypertriglyceridemia 10/06/2015 06/02/2021 Last Assessment & Plan: tgs are well controlled on the fenofibrate. 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 Lumpectomy, completed radiation 06/27/10. No chemotherapy. 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 06/02/2021 Last Assessment & Plan: Assessment: controlled, albuterol as needed Hypercalcemia 12/07/2005 06/02/2021 Last Assessment & Plan: Well controlled Pure hypercholesterolemia 08/22/20052021 Last Assessment & Plan: Assessment: c/w statin Impaired fasting glucose 08/22/2005 015 Impaired glucose tolerance test 08/22/2005 09/28/2014 Myalgia and myositis, unspecified 01/21/2005 06/02/2021 Shortness of breath 01/25/2015 Morbid obesity due to excess calories 06/02/2021 Overview: Obesity Family history of malignant neoplasm of gastrointestinal tract 06/02/2021 Overview: family history of colon cancer Diaphragmatic hernia without mention of obstruction or gangrene 01/16/2022 documented as of this encounter (statuses as of 01/16/2022) [facility]01-12-2021 History of Past illness Narrative* Problem Noted Date Resolved Date Left groin pain 02/17/2020 06/02/2021 Morbid obesity 01/29/2020 06/02/2021 Last Assessment & Plan: Assessment: Body mass index is 40.03 kg/m . Malnutrition of mild degree 01/27/202005/07 Type 2 diabetes mellitus 01/26/2020 022 COPD (chronic obstructive pu lmonary disease) with chronic bronchitis 01/26/2020 01/16/2022 Last Assessment & Plan: Assessment: albuterol as needed, non-smoker, 50 year household exposure Need for vaccination 03/13/2018 06/02/2021 Chronic bronchitis 03/13/2018 06/02/2021 Rotator cuff syndrome of left shoulder 8 06/02/2021 History of colonic polyps 12/02/20152015 Family history of colon cancer in mother 016 12/02/2015 Hypertriglyceridemia 10/06/2015 06/02/2021 Last Assessment & Plan: tgs are well controlled on the fenofibrate. 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 Lumpectomy, completed radiation 06/27/10. No chemotherapy. 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 06/02/2021 Last Assessment & Plan: Assessment: controlled, albuterol as needed Hypercalcemia 12/07/2005 06/02/2021 Last Assessment & Plan: Well controlled Pure hypercholesterolemia 08/22/20052021 Last Assessment & Plan: Assessment: c/w statin Impaired fasting glucose 08/22/2005 015 Impaired glucose tolerance test 08/22/2005 09/28/2014 Myalgia and myositis, unspecified 01/21/2005 06/02/2021 Shortness of breath 01/25/2015 Morbid obesity due to excess calories 06/02/2021 Overview: Obesity Family history of malignant neoplasm of gastrointestinal tract 06/02/2021 Overview: family history of colon cancer Diaphragmatic hernia without mention of obstruction or gangrene 01/16/2022 documented as of this encounter (statuses as of 01/19/2022) [facility]01-12-2021 History of Past illness Narrative* Problem Noted Date Resolved Date Left groin pain 02/17/2020 06/02/2021 Morbid obesity 01/29/2020 06/02/2021 Last Assessment & Plan: Assessment: Body mass index is 40.03 kg/m . Malnutrition of mild degree 01/27/202005/07 Type 2 diabetes mellitus 01/26/2020 022 COPD (chronic obstructive pu lmonary disease) with chronic bronchitis 01/26/2020 01/16/2022 Last Assessment & Plan: Assessment: albuterol as needed, non-smoker, 50 year household exposure Need for vaccination 03/13/2018 06/02/2021 Chronic bronchitis 03/13/2018 06/02/2021 Rotator cuff syndrome of left shoulder 8 06/02/2021 History of colonic polyps 12/02/20152015 Family history of colon cancer in mother 016 12/02/2015 Hypertriglyceridemia 10/06/2015 06/02/2021 Last Assessment & Plan: tgs are well controlled on the fenofibrate. 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 Lumpectomy, completed radiation 06/27/10. No chemotherapy. 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 06/02/2021 Last Assessment & Plan: Assessment: controlled, albuterol as needed Hypercalcemia 12/07/2005 06/02/2021 Last Assessment & Plan: Well controlled Pure hypercholesterolemia 08/22/20052021 Last Assessment & Plan: Assessment: c/w statin Impaired fasting glucose 08/22/2005 015 Impaired glucose tolerance test 08/22/2005 09/28/2014 Myalgia and myositis, unspecified 01/21/2005 06/02/2021 Shortness of breath 01/25/2015 Morbid obesity due to excess calories 06/02/2021 Overview: Obesity Family history of malignant neoplasm of gastrointestinal tract 06/02/2021 Overview: family history of colon cancer Diaphragmatic hernia without mention of obstruction or gangrene 01/16/2022 documented as of this encounter (statuses as of 02/15/2022) [facility]01-12-2021 History of Past illness Narrative* Problem Noted Date Resolved Date Left groin pain 02/17/2020 06/02/2021 Morbid obesity 01/29/2020 06/02/2021 Last Assessment & Plan: Assessment: Body mass index is 40.03 kg/m . Malnutrition of mild degree 01/27/202005/07 Type 2 diabetes mellitus 01/26/2020 022 COPD (chronic obstructive pu lmonary disease) with chronic bronchitis 01/26/2020 01/16/2022 Last Assessment & Plan: Assessment: albuterol as needed, non-smoker, 50 year household exposure Need for vaccination 03/13/2018 06/02/2021 Chronic bronchitis 03/13/2018 06/02/2021 Rotator cuff syndrome of left shoulder 8 06/02/2021 History of colonic polyps 12/02/20152015 Family history of colon cancer in mother 016 12/02/2015 Hypertriglyceridemia 10/06/2015 06/02/2021 Last Assessment & Plan: tgs are well controlled on the fenofibrate. 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 Lumpectomy, completed radiation 06/27/10. No chemotherapy. 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 06/02/2021 Last Assessment & Plan: Assessment: controlled, albuterol as needed Hypercalcemia 12/07/2005 06/02/2021 Last Assessment & Plan: Well controlled Pure hypercholesterolemia 08/22/20052021 Last Assessment & Plan: Assessment: c/w statin Impaired fasting glucose 08/22/2005 015 Impaired glucose tolerance test 08/22/2005 09/28/2014 Myalgia and myositis, unspecified 01/21/2005 06/02/2021 Shortness of breath 01/25/2015 Morbid obesity due to excess calories 06/02/2021 Overview: Obesity Family history of malignant neoplasm of gastrointestinal tract 06/02/2021 Overview: family history of colon cancer Diaphragmatic hernia without mention of obstruction or gangrene 01/16/2022 documented as of this encounter (statuses as of 02/21/2022) [facility]01-12-[facility]21 History of Past illness Narrative* Problem Noted Date Resolved Date Left groin pain 02/17/2020 06/02/2021 Morbid obesity 01/29/2020 06/02/2021 Last Assessment & Plan: Assessment: Body mass index is 40.03 kg/m . Malnutrition of mild degree 01/27/202005/07 Type 2 diabetes mellitus 01/26/2020 022 COPD (chronic obstructive pu lmonary disease) with chronic bronchitis 01/26/2020 01/16/2022 Last Assessment & Plan: Assessment: albuterol as needed, non-smoker, 50 year household exposure Need for vaccination 03/13/2018 06/02/2021 Chronic bronchitis 03/13/2018 06/02/2021 Rotator cuff syndrome of left shoulder 8 06/02/2021 History of colonic polyps 12/02/20152015 Family history of colon cancer in mother 016 12/02/2015 Hypertriglyceridemia 10/06/2015 06/02/2021 Last Assessment & Plan: tgs are well controlled on the fenofibrate. 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 Lumpectomy, completed radiation 06/27/10. No chemotherapy. 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 06/02/2021 Last Assessment & Plan: Assessment: controlled, albuterol as needed Hypercalcemia 12/07/2005 06/02/2021 Last Assessment & Plan: Well controlled Pure hypercholesterolemia 08/22/20052021 Last Assessment & Plan: Assessment: c/w statin Impaired fasting glucose 08/22/2005 015 Impaired glucose tolerance test 08/22/2005 09/28/2014 Myalgia and myositis, unspecified 01/21/2005 06/02/2021 Shortness of breath 01/25/2015 Morbid obesity due to excess calories 06/02/2021 Overview: Obesity Family history of malignant neoplasm of gastrointestinal tract 06/02/2021 Overview: family history of colon cancer Diaphragmatic hernia without mention of obstruction or gangrene 01/16/2022 documented as of this encounter (statuses as of 03/03/2022) [facility]01-12-[facility]21 History of Past illness Narrative* Problem Noted Date Resolved Date Left groin pain 02/17/2020 06/02/2021 Morbid obesity 01/29/2020 06/02/2021 Last Assessment & Plan: Assessment: Body mass index is 40.03 kg/m . Malnutrition of mild degree 01/27/202005/07 Type 2 diabetes mellitus 01/26/2020 022 COPD (chronic obstructive pu lmonary disease) with chronic bronchitis 01/26/2020 01/16/2022 Last Assessment & Plan: Assessment: albuterol as needed, non-smoker, 50 year household exposure Need for vaccination 03/13/2018 06/02/2021 Chronic bronchitis 03/13/2018 06/02/2021 Rotator cuff syndrome of left shoulder 8 06/02/2021 History of colonic polyps 12/02/20152015 Family history of colon cancer in mother 016 12/02/2015 Hypertriglyceridemia 10/06/2015 06/02/2021 Last Assessment & Plan: tgs are well controlled on the fenofibrate. 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 Lumpectomy, completed radiation 06/27/10. No chemotherapy. 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 06/02/2021 Last Assessment & Plan: Assessment: controlled, albuterol as needed Hypercalcemia 12/07/2005 06/02/2021 Last Assessment & Plan: Well controlled Pure hypercholesterolemia 08/22/20052021 Last Assessment & Plan: Assessment: c/w statin Impaired fasting glucose 08/22/2005 015 Impaired glucose tolerance test 08/22/2005 09/28/2014 Myalgia and myositis, unspecified 01/21/2005 06/02/2021 Shortness of breath 01/25/2015 Morbid obesity due to excess calories 06/02/2021 Overview: Obesity Family history of malignant neoplasm of gastrointestinal tract 06/02/2021 Overview: family history of colon cancer Diaphragmatic hernia without mention of obstruction or gangrene 01/16/2022 documented as of this encounter (statuses as of 04/01/2022) [facility]01[facility]21 History of Past illness Narrative* Problem Noted Date Resolved Date Left groin pain 02/17/2020 06/02/2021 Morbid obesity 01/29/2020 06/02/2021 Last Assessment & Plan: Assessment: Body mass index is 40.03 kg/m . Malnutrition of mild degree 01/27/20202 09/2021 Type 2 diabetes mellitus 01/26/2020 022 COPD (chronic obstructive pu lmonary disease) with chronic bronchitis 01/26/2020 01/16/2022 Last Assessment & Plan: Assessment: albuterol as needed, non-smoker, 50 year household exposure Need for vaccination 03/13/2018 06/02/2021 Chronic bronchitis 03/13/2018 06/02/2021 Rotator cuff syndrome of left shoulder 8 06/02/2021 History of colonic polyps 12/02/20152015 Family history of colon cancer in mother 016 12/02/2015 Hypertriglyceridemia 10/06/2015 06/02/2021 Last Assessment & Plan: tgs are well controlled on the fenofibrate. 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 Lumpectomy, completed radiation 06/27/10. No chemotherapy. 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 06/02/2021 Last Assessment & Plan: Assessment: controlled, albuterol as needed Hypercalcemia 12/07/2005 06/02/2021 Last Assessment & Plan: Well controlled Pure hypercholesterolemia 08/22/20052021 Last Assessment & Plan: Assessment: c/w statin Impaired fasting glucose 08/22/2005 015 Impaired glucose tolerance test 08/22/2005 09/28/2014 Myalgia and myositis, unspecified 01/21/2005 06/02/2021 Shortness of breath 01/25/2015 Morbid obesity due to excess calories 06/02/2021 Overview: Obesity Family history of malignant neoplasm of gastrointestinal tract 06/02/2021 Overview: family history of colon cancer Diaphragmatic hernia without mention of obstruction or gangrene 01/16/2022 documented as of this encounter (statuses as of 04/03/2022) [facility]01[facility] History of Past illness Narrative* Problem Noted Date Resolved Date Left groin pain 02/17/2020 06/02/2021 Morbid obesity 01/29/2020 06/02/2021 Last Assessment & Plan: Assessment: Body mass index is 40.03 kg/m . Malnutrition of mild degree 01/27/202005/07 Type 2 diabetes mellitus 01/26/2020 022 COPD (chronic obstructive pu lmonary disease) with chronic bronchitis 01/26/2020 01/16/2022 Last Assessment & Plan: Assessment: albuterol as needed, non-smoker, 50 year household exposure Need for vaccination 03/13/2018 06/02/2021 Chronic bronchitis 03/13/2018 06/02/2021 Rotator cuff syndrome of left shoulder 8 06/02/2021 History of colonic polyps 12/02/20152015 Family history of colon cancer in mother 016 12/02/2015 Hypertriglyceridemia 10/06/2015 06/02/2021 Last Assessment & Plan: tgs are well controlled on the fenofibrate. 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 Lumpectomy, completed radiation 06/27/10. No chemotherapy. 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 06/02/2021 Last Assessment & Plan: Assessment: controlled, albuterol as needed Hypercalcemia 12/07/2005 06/02/2021 Last Assessment & Plan: Well controlled Pure hypercholesterolemia 08/22/20052021 Last Assessment & Plan: Assessment: c/w statin Impaired fasting glucose 08/22/2005 015 Impaired glucose tolerance test 08/22/2005 09/28/2014 Myalgia and myositis, unspecified 01/21/2005 06/02/2021 Shortness of breath 01/25/2015 Morbid obesity due to excess calories 06/02/2021 Overview: Obesity Family history of malignant neoplasm of gastrointestinal tract 06/02/2021 Overview: family history of colon cancer Diaphragmatic hernia without mention of obstruction or gangrene 01/16/2022 documented as of this encounter (statuses as of 04/04/2022) [facility] History of Past illness Narrative* Problem Noted Date Resolved Date Left groin pain 02/17/2020 06/02/2021 Morbid obesity 01/29/2020 06/02/2021 Last Assessment & Plan: Assessment: Body mass index is 40.03 kg/m . Malnutrition of mild degree 01/27/202005/07 Type 2 diabetes mellitus 01/26/2020 022 COPD (chronic obstructive pu lmonary disease) with chronic bronchitis 01/26/2020 01/16/2022 Last Assessment & Plan: Assessment: albuterol as needed, non-smoker, 50 year household exposure Need for vaccination 03/13/2018 06/02/2021 Chronic bronchitis 03/13/2018 06/02/2021 Rotator cuff syndrome of left shoulder 8 06/02/2021 History of colonic polyps 12/02/20152015 Family history of colon cancer in mother 016 12/02/2015 Hypertriglyceridemia 10/06/2015 06/02/2021 Last Assessment & Plan: tgs are well controlled on the fenofibrate. 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 Lumpectomy, completed radiation 06/27/10. No chemotherapy. 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 06/02/2021 Last Assessment & Plan: Assessment: controlled, albuterol as needed Hypercalcemia 12/07/2005 06/02/2021 Last Assessment & Plan: Well controlled Pure hypercholesterolemia 08/22/20052021 Last Assessment & Plan: Assessment: c/w statin Impaired fasting glucose 08/22/2005 015 Impaired glucose tolerance test 08/22/2005 09/28/2014 Myalgia and myositis, unspecified 01/21/2005 06/02/2021 Shortness of breath 01/25/2015 Morbid obesity due to excess calories 06/02/2021 Overview: Obesity Family history of malignant neoplasm of gastrointestinal tract 06/02/2021 Overview: family history of colon cancer Diaphragmatic hernia without mention of obstruction or gangrene 01/16/2022 documented as of this encounter (statuses as of 04/07/2022) [facility] History of Past illness Narrative* Problem Noted Date Resolved Date Left groin pain 02/17/2020 06/02/2021 Morbid obesity 01/29/2020 06/02/2021 Last Assessment & Plan: Assessment: Body mass index is 40.03 kg/m . Malnutrition of mild degree 01/27/20202 09/2021 Type 2 diabetes mellitus 01/26/2020 022 COPD (chronic obstructive pu lmonary disease) with chronic bronchitis 01/26/2020 01/16/2022 Last Assessment & Plan: Assessment: albuterol as needed, non-smoker, 50 year household exposure Need for vaccination 03/13/2018 06/02/2021 Chronic bronchitis 03/13/2018 06/02/2021 Rotator cuff syndrome of left shoulder 8 06/02/2021 History of colonic polyps 12/02/20152015 Family history of colon cancer in mother 016 12/02/2015 Hypertriglyceridemia 10/06/2015 06/02/2021 Last Assessment & Plan: tgs are well controlled on the fenofibrate. 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 Lumpectomy, completed radiation 06/27/10. No chemotherapy. 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 06/02/2021 Last Assessment & Plan: Assessment: controlled, albuterol as needed Pure hypercholesterolemia 08/22/20052021 Last Assessment & Plan: Assessment: c/w statin Impaired fasting glucose 08/22/2005 015 Impaired glucose tolerance test 08/22/2005 09/28/2014 Myalgia and myositis, unspecified 01/21/2005 06/02/2021 Shortness of breath 01/25/2015 Morbid obesity due to excess calories 06/02/2021 Overview: Obesity Family history of malignant neoplasm of gastrointestinal tract 06/02/2021 Overview: family history of colon cancer Diaphragmatic hernia without mention of obstruction or gangrene 01/16/2022 documented as of this encounter (statuses as of 04/10/2022) [facility] History of Past illness Narrative* Problem Noted Date Resolved Date Left groin pain 02/17/2020 06/02/2021 Morbid obesity 01/29/2020 06/02/2021 Last Assessment & Plan: Assessment: Body mass index is 40.03 kg/m . Malnutrition of mild degree 01/27/202005/07 Type 2 diabetes mellitus 01/26/2020 022 COPD (chronic obstructive pu lmonary disease) with chronic bronchitis 01/26/2020 01/16/2022 Last Assessment & Plan: Assessment: albuterol as needed, non-smoker, 50 year household exposure Need for vaccination 03/13/2018 06/02/2021 Chronic bronchitis 03/13/2018 06/02/2021 Rotator cuff syndrome of left shoulder 8 06/02/2021 History of colonic polyps 12/02/20152015 Family history of colon cancer in mother 016 12/02/2015 Hypertriglyceridemia 10/06/2015 06/02/2021 Last Assessment & Plan: tgs are well controlled on the fenofibrate. 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 Lumpectomy, completed radiation 06/27/10. No chemotherapy. 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 06/02/2021 Last Assessment & Plan: Assessment: controlled, albuterol as needed Pure hypercholesterolemia 08/22/20052021 Last Assessment & Plan: Assessment: c/w statin Impaired fasting glucose 08/22/2005 015 Impaired glucose tolerance test 08/22/2005 09/28/2014 Myalgia and myositis, unspecified 01/21/2005 06/02/2021 Shortness of breath 01/25/2015 Morbid obesity due to excess calories 06/02/2021 Overview: Obesity Family history of malignant neoplasm of gastrointestinal tract 06/02/2021 Overview: family history of colon cancer Diaphragmatic hernia without mention of obstruction or gangrene 01/16/2022 documented as of this encounter (statuses as of 04/12/2022) [facility]01-12-2021 History of Past illness Narrative* Problem Noted Date Resolved Date Left groin pain 02/17/2020 06/02/2021 Morbid obesity 01/29/2020 06/02/2021 Last Assessment & Plan: Assessment: Body mass index is 40.03 kg/m . Malnutrition of mild degree 01/27/202005/07 Type 2 diabetes mellitus 01/26/2020 022 COPD (chronic obstructive pu lmonary disease) with chronic bronchitis 01/26/2020 01/16/2022 Last Assessment & Plan: Assessment: albuterol as needed, non-smoker, 50 year household exposure Need for vaccination 03/13/2018 06/02/2021 Chronic bronchitis 03/13/2018 06/02/2021 Rotator cuff syndrome of left shoulder 8 06/02/2021 History of colonic polyps 12/02/20152015 Family history of colon cancer in mother 016 12/02/2015 Hypertriglyceridemia 10/06/2015 06/02/2021 Last Assessment & Plan: tgs are well controlled on the fenofibrate. 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 Lumpectomy, completed radiation 06/27/10. No chemotherapy. 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 06/02/2021 Last Assessment & Plan: Assessment: controlled, albuterol as needed Pure hypercholesterolemia 08/22/20052021 Last Assessment & Plan: Assessment: c/w statin Impaired fasting glucose 08/22/2005 015 Impaired glucose tolerance test 08/22/2005 09/28/2014 Myalgia and myositis, unspecified 01/21/2005 06/02/2021 Shortness of breath 01/25/2015 Morbid obesity due to excess calories 06/02/2021 Overview: Obesity Family history of malignant neoplasm of gastrointestinal tract 06/02/2021 Overview: family history of colon cancer Diaphragmatic hernia without mention of obstruction or gangrene 01/16/2022 documented as of this encounter (statuses as of 04/17/2022) [facility]01-12-2021 History of Past illness Narrative* Problem Noted Date Resolved Date Left groin pain 02/17/2020 06/02/2021 Morbid obesity 01/29/2020 06/02/2021 Last Assessment & Plan: Assessment: Body mass index is 40.03 kg/m . Malnutrition of mild degree 01/27/202005/07 Type 2 diabetes mellitus 01/26/2020 022 COPD (chronic obstructive pu lmonary disease) with chronic bronchitis 01/26/2020 01/16/2022 Last Assessment & Plan: Assessment: albuterol as needed, non-smoker, 50 year household exposure Need for vaccination 03/13/2018 06/02/2021 Chronic bronchitis 03/13/2018 06/02/2021 Rotator cuff syndrome of left shoulder 8 06/02/2021 History of colonic polyps 12/02/20152015 Family history of colon cancer in mother 016 12/02/2015 Hypertriglyceridemia 10/06/2015 06/02/2021 Last Assessment & Plan: tgs are well controlled on the fenofibrate. 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 Lumpectomy, completed radiation 06/27/10. No chemotherapy. 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 06/02/2021 Last Assessment & Plan: Assessment: controlled, albuterol as needed Pure hypercholesterolemia 08/22/20052021 Last Assessment & Plan: Assessment: c/w statin Impaired fasting glucose 08/22/2005 015 Impaired glucose tolerance test 08/22/2005 09/28/2014 Myalgia and myositis, unspecified 01/21/2005 06/02/2021 Shortness of breath 01/25/2015 Morbid obesity due to excess calories 06/02/2021 Overview: Obesity Family history of malignant neoplasm of gastrointestinal tract 06/02/2021 Overview: family history of colon cancer Diaphragmatic hernia without mention of obstruction or gangrene 01/16/2022 documented as of this encounter (statuses as of 04/18/2022) [facility]01-12-2021 History of Past illness Narrative* Problem Noted Date Resolved Date Left groin pain 02/17/2020 06/02/2021 Morbid obesity 01/29/2020 06/02/2021 Last Assessment & Plan: Assessment: Body mass index is 40.03 kg/m . Malnutrition of mild degree 01/27/202005/07 Type 2 diabetes mellitus 01/26/2020 022 COPD (chronic obstructive pu lmonary disease) with chronic bronchitis 01/26/2020 01/16/2022 Last Assessment & Plan: Assessment: albuterol as needed, non-smoker, 50 year household exposure Need for vaccination 03/13/2018 06/02/2021 Chronic bronchitis 03/13/2018 06/02/2021 Rotator cuff syndrome of left shoulder 8 06/02/2021 History of colonic polyps 12/02/20152015 Family history of colon cancer in mother 016 12/02/2015 Hypertriglyceridemia 10/06/2015 06/02/2021 Last Assessment & Plan: tgs are well controlled on the fenofibrate. 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 Lumpectomy, completed radiation 06/27/10. No chemotherapy. 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 06/02/2021 Last Assessment & Plan: Assessment: controlled, albuterol as needed Pure hypercholesterolemia 08/22/20052021 Last Assessment & Plan: Assessment: c/w statin Impaired fasting glucose 08/22/2005 015 Impaired glucose tolerance test 08/22/2005 09/28/2014 Myalgia and myositis, unspecified 01/21/2005 06/02/2021 Shortness of breath 01/25/2015 Morbid obesity due to excess calories 06/02/2021 Overview: Obesity Family history of malignant neoplasm of gastrointestinal tract 06/02/2021 Overview: family history of colon cancer Diaphragmatic hernia without mention of obstruction or gangrene 01/16/2022 documented as of this encounter (statuses as of 04/20/2022) [facility]01-12-[facility]21 History of Past illness Narrative* Problem Noted Date Resolved Date Left groin pain 02/17/2020 06/02/2021 Morbid obesity 01/29/2020 06/02/2021 Last Assessment & Plan: Assessment: Body mass index is 40.03 kg/m . Malnutrition of mild degree 01/27/20202 09/2021 Type 2 diabetes mellitus 01/26/2020 022 COPD (chronic obstructive pu lmonary disease) with chronic bronchitis 01/26/2020 01/16/2022 Last Assessment & Plan: Assessment: albuterol as needed, non-smoker, 50 year household exposure Need for vaccination 03/13/2018 06/02/2021 Chronic bronchitis 03/13/2018 06/02/2021 Rotator cuff syndrome of left shoulder 8 06/02/2021 History of colonic polyps 12/02/20152015 Family history of colon cancer in mother 016 12/02/2015 Hypertriglyceridemia 10/06/2015 06/02/2021 Last Assessment & Plan: tgs are well controlled on the fenofibrate. 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 Lumpectomy, completed radiation 06/27/10. No chemotherapy. 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 06/02/2021 Last Assessment & Plan: Assessment: controlled, albuterol as needed Pure hypercholesterolemia 08/22/20052021 Last Assessment & Plan: Assessment: c/w statin Impaired fasting glucose 08/22/2005 015 Impaired glucose tolerance test 08/22/2005 09/28/2014 Myalgia and myositis, unspecified 01/21/2005 06/02/2021 Shortness of breath 01/25/2015 Morbid obesity due to excess calories 06/02/2021 Overview: Obesity Family history of malignant neoplasm of gastrointestinal tract 06/02/2021 Overview: family history of colon cancer Diaphragmatic hernia without mention of obstruction or gangrene 01/16/2022 documented as of this encounter (statuses as of 04/27/2022) [facility]01-12-[facility]21 History of Past illness Narrative* Problem Noted Date Resolved Date Left groin pain 02/17/2020 06/02/2021 Morbid obesity 01/29/2020 06/02/2021 Last Assessment & Plan: Assessment: Body mass index is 40.03 kg/m . Malnutrition of mild degree 01/27/2020 0409/2021 Type 2 diabetes mellitus 01/26/2020 022 COPD (chronic obstructive pu lmonary disease) with chronic bronchitis 01/26/2020 01/16/2022 Last Assessment & Plan: Assessment: albuterol as needed, non-smoker, 50 year household exposure Need for vaccination 03/13/2018 06/02/2021 Chronic bronchitis 03/13/2018 06/02/2021 Rotator cuff syndrome of left shoulder 8 06/02/2021 History of colonic polyps 12/02/20152015 Family history of colon cancer in mother 016 12/02/2015 Hypertriglyceridemia 10/06/2015 06/02/2021 Last Assessment & Plan: tgs are well controlled on the fenofibrate. 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 Lumpectomy, completed radiation 06/27/10. No chemotherapy. 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 06/02/2021 Last Assessment & Plan: Assessment: controlled, albuterol as needed Pure hypercholesterolemia 08/22/20052021 Last Assessment & Plan: Assessment: c/w statin Impaired fasting glucose 08/22/2005 015 Impaired glucose tolerance test 08/22/2005 09/28/2014 Myalgia and myositis, unspecified 01/21/2005 06/02/2021 Shortness of breath 01/25/2015 Morbid obesity due to excess calories 06/02/2021 Overview: Obesity Family history of malignant neoplasm of gastrointestinal tract 06/02/2021 Overview: family history of colon cancer Diaphragmatic hernia without mention of obstruction or gangrene 01/16/2022 documented as of this encounter (statuses as of 04/28/2022) [facility]01-12-[facility]21 History of Past illness Narrative* Problem Noted Date Resolved Date Left groin pain 02/17/2020 06/02/2021 Morbid obesity 01/29/2020 06/02/2021 Last Assessment & Plan: Assessment: Body mass index is 40.03 kg/m . Malnutrition of mild degree 01/27/2020 042 09/2021 Type 2 diabetes mellitus 01/26/2020 022 COPD (chronic obstructive pu lmonary disease) with chronic bronchitis 01/26/2020 01/16/2022 Last Assessment & Plan: Assessment: albuterol as needed, non-smoker, 50 year household exposure Need for vaccination 03/13/2018 06/02/2021 Chronic bronchitis 03/13/2018 06/02/2021 Rotator cuff syndrome of left shoulder 8 06/02/2021 History of colonic polyps 12/02/20152015 Family history of colon cancer in mother 016 12/02/2015 Hypertriglyceridemia 10/06/2015 06/02/2021 Last Assessment & Plan: tgs are well controlled on the fenofibrate. 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 Lumpectomy, completed radiation 06/27/10. No chemotherapy. 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 06/02/2021 Last Assessment & Plan: Assessment: controlled, albuterol as needed Pure hypercholesterolemia 08/22/20052021 Last Assessment & Plan: Assessment: c/w statin Impaired fasting glucose 08/22/2005 015 Impaired glucose tolerance test 08/22/2005 09/28/2014 Myalgia and myositis, unspecified 01/21/2005 06/02/2021 Shortness of breath 01/25/2015 Morbid obesity due to excess calories 06/02/2021 Overview: Obesity Family history of malignant neoplasm of gastrointestinal tract 06/02/2021 Overview: family history of colon cancer Diaphragmatic hernia without mention of obstruction or gangrene 01/16/2022 documented as of this encounter (statuses as of 05/02/2022) [facility]01[facility]12-[facility] History of Past illness Narrative* Problem Noted Date Resolved Date Left groin pain 02/17/2020 06/02/2021 Morbid obesity 01/29/2020 06/02/2021 Last Assessment & Plan: Assessment: Body mass index is 40.03 kg/m . Malnutrition of mild degree 01/27/20202 09/2021 Type 2 diabetes mellitus 01/26/2020 022 COPD (chronic obstructive pu lmonary disease) with chronic bronchitis 01/26/2020 01/16/2022 Last Assessment & Plan: Assessment: albuterol as needed, non-smoker, 50 year household exposure Need for vaccination 03/13/2018 06/02/2021 Chronic bronchitis 03/13/2018 06/02/2021 Rotator cuff syndrome of left shoulder 8 06/02/2021 History of colonic polyps 12/02/20152015 Family history of colon cancer in mother 016 12/02/2015 Hypertriglyceridemia 10/06/2015 06/02/2021 Last Assessment & Plan: tgs are well controlled on the fenofibrate. 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 Lumpectomy, completed radiation 06/27/10. No chemotherapy. 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 06/02/2021 Last Assessment & Plan: Assessment: controlled, albuterol as needed Pure hypercholesterolemia 08/22/20052021 Last Assessment & Plan: Assessment: c/w statin Impaired fasting glucose 08/22/2005 015 Impaired glucose tolerance test 08/22/2005 09/28/2014 Myalgia and myositis, unspecified 01/21/2005 06/02/2021 Shortness of breath 01/25/2015 Morbid obesity due to excess calories 06/02/2021 Overview: Obesity Family history of malignant neoplasm of gastrointestinal tract 06/02/2021 Overview: family history of colon cancer Diaphragmatic hernia without mention of obstruction or gangrene 01/16/2022 documented as of this encounter (statuses as of 05/04/2022) [facility] History of Past illness Narrative* Problem Noted Date Resolved Date Left groin pain 02/17/2020 06/02/2021 Morbid obesity 01/29/2020 06/02/2021 Last Assessment & Plan: Assessment: Body mass index is 40.03 kg/m . Malnutrition of mild degree 01/27/202005/07 Type 2 diabetes mellitus 01/26/2020 022 COPD (chronic obstructive pu lmonary disease) with chronic bronchitis 01/26/2020 01/16/2022 Last Assessment & Plan: Assessment: albuterol as needed, non-smoker, 50 year household exposure Need for vaccination 03/13/2018 06/02/2021 Chronic bronchitis 03/13/2018 06/02/2021 Rotator cuff syndrome of left shoulder 8 06/02/2021 History of colonic polyps 12/02/20152015 Family history of colon cancer in mother 016 12/02/2015 Hypertriglyceridemia 10/06/2015 06/02/2021 Last Assessment & Plan: tgs are well controlled on the fenofibrate. 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 Lumpectomy, completed radiation 06/27/10. No chemotherapy. 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 06/02/2021 Last Assessment & Plan: Assessment: controlled, albuterol as needed Pure hypercholesterolemia 08/22/20052021 Last Assessment & Plan: Assessment: c/w statin Impaired fasting glucose 08/22/2005 015 Impaired glucose tolerance test 08/22/2005 09/28/2014 Myalgia and myositis, unspecified 01/21/2005 06/02/2021 Shortness of breath 01/25/2015 Morbid obesity due to excess calories 06/02/2021 Overview: Obesity Family history of malignant neoplasm of gastrointestinal tract 06/02/2021 Overview: family history of colon cancer Diaphragmatic hernia without mention of obstruction or gangrene 01/16/2022 documented as of this encounter (statuses as of 05/09/2022) [facility] History of Past illness Narrative* Problem Noted Date Resolved Date Left groin pain 02/17/2020 06/02/2021 Morbid obesity 01/29/2020 06/02/2021 Last Assessment & Plan: Assessment: Body mass index is 40.03 kg/m . Malnutrition of mild degree 01/27/20202 09/2021 Type 2 diabetes mellitus 01/26/2020 022 COPD (chronic obstructive pu lmonary disease) with chronic bronchitis 01/26/2020 01/16/2022 Last Assessment & Plan: Assessment: albuterol as needed, non-smoker, 50 year household exposure Need for vaccination 03/13/2018 06/02/2021 Chronic bronchitis 03/13/2018 06/02/2021 Rotator cuff syndrome of left shoulder 8 06/02/2021 History of colonic polyps 12/02/20152015 Family history of colon cancer in mother 016 12/02/2015 Hypertriglyceridemia 10/06/2015 06/02/2021 Last Assessment & Plan: tgs are well controlled on the fenofibrate. 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 Lumpectomy, completed radiation 06/27/10. No chemotherapy. 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 06/02/2021 Last Assessment & Plan: Assessment: controlled, albuterol as needed Pure hypercholesterolemia 08/22/20052021 Last Assessment & Plan: Assessment: c/w statin Impaired fasting glucose 08/22/2005 015 Impaired glucose tolerance test 08/22/2005 09/28/2014 Myalgia and myositis, unspecified 01/21/2005 06/02/2021 Shortness of breath 01/25/2015 Morbid obesity due to excess calories 06/02/2021 Overview: Obesity Family history of malignant neoplasm of gastrointestinal tract 06/02/2021 Overview: family history of colon cancer Diaphragmatic hernia without mention of obstruction or gangrene 01/16/2022 documented as of this encounter (statuses as of 05/09/2022) [facility] History of Past illness Narrative* Problem Noted Date Resolved Date Left groin pain 02/17/2020 06/02/2021 Morbid obesity 01/29/2020 06/02/2021 Last Assessment & Plan: Assessment: Body mass index is 40.03 kg/m . Malnutrition of mild degree 01/27/202005/07 Type 2 diabetes mellitus 01/26/2020 022 COPD (chronic obstructive pu lmonary disease) with chronic bronchitis 01/26/2020 01/16/2022 Last Assessment & Plan: Assessment: albuterol as needed, non-smoker, 50 year household exposure Need for vaccination 03/13/2018 06/02/2021 Chronic bronchitis 03/13/2018 06/02/2021 Rotator cuff syndrome of left shoulder 8 06/02/2021 History of colonic polyps 12/02/20152015 Family history of colon cancer in mother 016 12/02/2015 Hypertriglyceridemia 10/06/2015 06/02/2021 Last Assessment & Plan: tgs are well controlled on the fenofibrate. 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 Lumpectomy, completed radiation 06/27/10. No chemotherapy. 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 06/02/2021 Last Assessment & Plan: Assessment: controlled, albuterol as needed Pure hypercholesterolemia 08/22/20052021 Last Assessment & Plan: Assessment: c/w statin Impaired fasting glucose 08/22/2005 015 Impaired glucose tolerance test 08/22/2005 09/28/2014 Myalgia and myositis, unspecified 01/21/2005 06/02/2021 Shortness of breath 01/25/2015 Morbid obesity due to excess calories 06/02/2021 Overview: Obesity Family history of malignant neoplasm of gastrointestinal tract 06/02/2021 Overview: family history of colon cancer Diaphragmatic hernia without mention of obstruction or gangrene 01/16/2022 documented as of this encounter (statuses as of 05/31/2022) [facility]01-12-2021 History of Past illness Narrative* Problem Noted Date Resolved Date Left groin pain 02/17/2020 06/02/2021 Morbid obesity 01/29/2020 06/02/2021 Last Assessment & Plan: Assessment: Body mass index is 40.03 kg/m . Malnutrition of mild degree 01/27/202005/07 Type 2 diabetes mellitus 01/26/2020 022 COPD (chronic obstructive pu lmonary disease) with chronic bronchitis 01/26/2020 01/16/2022 Last Assessment & Plan: Assessment: albuterol as needed, non-smoker, 50 year household exposure Need for vaccination 03/13/2018 06/02/2021 Chronic bronchitis 03/13/2018 06/02/2021 Rotator cuff syndrome of left shoulder 8 06/02/2021 History of colonic polyps 12/02/20152015 Family history of colon cancer in mother 016 12/02/2015 Hypertriglyceridemia 10/06/2015 06/02/2021 Last Assessment & Plan: tgs are well controlled on the fenofibrate. 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 Lumpectomy, completed radiation 06/27/10. No chemotherapy. 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 06/02/2021 Last Assessment & Plan: Assessment: controlled, albuterol as needed Pure hypercholesterolemia 08/22/20052021 Last Assessment & Plan: Assessment: c/w statin Impaired fasting glucose 08/22/2005 015 Impaired glucose tolerance test 08/22/2005 09/28/2014 Myalgia and myositis, unspecified 01/21/2005 06/02/2021 Shortness of breath 01/25/2015 Morbid obesity due to excess calories 06/02/2021 Overview: Obesity Family history of malignant neoplasm of gastrointestinal tract 06/02/2021 Overview: family history of colon cancer Diaphragmatic hernia without mention of obstruction or gangrene 01/16/2022 documented as of this encounter (statuses as of 06/09/2022) [facility]01-12-2021 History of Past illness Narrative* Problem Noted Date Resolved Date Left groin pain 02/17/2020 06/02/2021 Morbid obesity 01/29/2020 06/02/2021 Last Assessment & Plan: Assessment: Body mass index is 40.03 kg/m . Malnutrition of mild degree 01/27/202005/07 Type 2 diabetes mellitus 01/26/2020 022 COPD (chronic obstructive pu lmonary disease) with chronic bronchitis 01/26/2020 01/16/2022 Last Assessment & Plan: Assessment: albuterol as needed, non-smoker, 50 year household exposure Need for vaccination 03/13/2018 06/02/2021 Chronic bronchitis 03/13/2018 06/02/2021 Rotator cuff syndrome of left shoulder 8 06/02/2021 History of colonic polyps 12/02/20152015 Family history of colon cancer in mother 016 12/02/2015 Hypertriglyceridemia 10/06/2015 06/02/2021 Last Assessment & Plan: tgs are well controlled on the fenofibrate. 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 Lumpectomy, completed radiation 06/27/10. No chemotherapy. 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 06/02/2021 Last Assessment & Plan: Assessment: controlled, albuterol as needed Pure hypercholesterolemia 08/22/20052021 Last Assessment & Plan: Assessment: c/w statin Impaired fasting glucose 08/22/2005 015 Impaired glucose tolerance test 08/22/2005 09/28/2014 Myalgia and myositis, unspecified 01/21/2005 06/02/2021 Shortness of breath 01/25/2015 Morbid obesity due to excess calories 06/02/2021 Overview: Obesity Family history of malignant neoplasm of gastrointestinal tract 06/02/2021 Overview: family history of colon cancer Diaphragmatic hernia without mention of obstruction or gangrene 01/16/2022 documented as of this encounter (statuses as of 06/09/2022) [facility]01-12-2021 History of Past illness Narrative* Problem Noted Date Resolved Date Left groin pain 02/17/2020 06/02/2021 Morbid obesity 01/29/2020 06/02/2021 Last Assessment & Plan: Assessment: Body mass index is 40.03 kg/m . Malnutrition of mild degree 01/27/202005/07 Type 2 diabetes mellitus 01/26/2020 022 COPD (chronic obstructive pu lmonary disease) with chronic bronchitis 01/26/2020 01/16/2022 Last Assessment & Plan: Assessment: albuterol as needed, non-smoker, 50 year household exposure Need for vaccination 03/13/2018 06/02/2021 Chronic bronchitis 03/13/2018 06/02/2021 Rotator cuff syndrome of left shoulder 8 06/02/2021 History of colonic polyps 12/02/20152015 Family history of colon cancer in mother 016 12/02/2015 Hypertriglyceridemia 10/06/2015 06/02/2021 Last Assessment & Plan: tgs are well controlled on the fenofibrate. 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 Lumpectomy, completed radiation 06/27/10. No chemotherapy. 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 06/02/2021 Last Assessment & Plan: Assessment: controlled, albuterol as needed Pure hypercholesterolemia 08/22/20052021 Last Assessment & Plan: Assessment: c/w statin Impaired fasting glucose 08/22/2005 015 Impaired glucose tolerance test 08/22/2005 09/28/2014 Myalgia and myositis, unspecified 01/21/2005 06/02/2021 Shortness of breath 01/25/2015 Morbid obesity due to excess calories 06/02/2021 Overview: Obesity Family history of malignant neoplasm of gastrointestinal tract 06/02/2021 Overview: family history of colon cancer Diaphragmatic hernia without mention of obstruction or gangrene 01/16/2022 documented as of this encounter (statuses as of 06/14/2022) [facility]01-12-[facility]21 History of Past illness Narrative* Problem Noted Date Resolved Date Left groin pain 02/17/2020 06/02/2021 Morbid obesity 01/29/2020 06/02/2021 Last Assessment & Plan: Assessment: Body mass index is 40.03 kg/m . Malnutrition of mild degree 01/27/202005/07 Type 2 diabetes mellitus 01/26/2020 022 COPD (chronic obstructive pu lmonary disease) with chronic bronchitis 01/26/2020 01/16/2022 Last Assessment & Plan: Assessment: albuterol as needed, non-smoker, 50 year household exposure Need for vaccination 03/13/2018 06/02/2021 Chronic bronchitis 03/13/2018 06/02/2021 Rotator cuff syndrome of left shoulder 8 06/02/2021 History of colonic polyps 12/02/20152015 Family history of colon cancer in mother 016 12/02/2015 Hypertriglyceridemia 10/06/2015 06/02/2021 Last Assessment & Plan: tgs are well controlled on the fenofibrate. 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 Lumpectomy, completed radiation 06/27/10. No chemotherapy. 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 06/02/2021 Last Assessment & Plan: Assessment: controlled, albuterol as needed Pure hypercholesterolemia 08/22/20052021 Last Assessment & Plan: Assessment: c/w statin Impaired fasting glucose 08/22/2005 015 Impaired glucose tolerance test 08/22/2005 09/28/2014 Myalgia and myositis, unspecified 01/21/2005 06/02/2021 Shortness of breath 01/25/2015 Morbid obesity due to excess calories 06/02/2021 Overview: Obesity Family history of malignant neoplasm of gastrointestinal tract 06/02/2021 Overview: family history of colon cancer Diaphragmatic hernia without mention of obstruction or gangrene 01/16/2022 documented as of this encounter (statuses as of 06/17/2022) [facility]01-12-[facility]21 History of Past illness Narrative* Problem Noted Date Resolved Date Left groin pain 02/17/2020 06/02/2021 Morbid obesity 01/29/2020 06/02/2021 Last Assessment & Plan: Assessment: Body mass index is 40.03 kg/m . Malnutrition of mild degree 01/27/202005/07 Type 2 diabetes mellitus 01/26/2020 022 COPD (chronic obstructive pu lmonary disease) with chronic bronchitis 01/26/2020 01/16/2022 Last Assessment & Plan: Assessment: albuterol as needed, non-smoker, 50 year household exposure Need for vaccination 03/13/2018 06/02/2021 Chronic bronchitis 03/13/2018 06/02/2021 Rotator cuff syndrome of left shoulder 8 06/02/2021 History of colonic polyps 12/02/20152015 Family history of colon cancer in mother 016 12/02/2015 Hypertriglyceridemia 10/06/2015 06/02/2021 Last Assessment & Plan: tgs are well controlled on the fenofibrate. 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 Lumpectomy, completed radiation 06/27/10. No chemotherapy. 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 06/02/2021 Last Assessment & Plan: Assessment: controlled, albuterol as needed Pure hypercholesterolemia 08/22/20052021 Last Assessment & Plan: Assessment: c/w statin Impaired fasting glucose 08/22/2005 015 Impaired glucose tolerance test 08/22/2005 09/28/2014 Myalgia and myositis, unspecified 01/21/2005 06/02/2021 Shortness of breath 01/25/2015 Morbid obesity due to excess calories 06/02/2021 Overview: Obesity Family history of malignant neoplasm of gastrointestinal tract 06/02/2021 Overview: family history of colon cancer Diaphragmatic hernia without mention of obstruction or gangrene 01/16/2022 documented as of this encounter (statuses as of 07/07/2022) [facility]01-12-[facility] History of Past illness Narrative* Problem Noted Date Resolved Date Left groin pain 02/17/2020 06/02/2021 Morbid obesity 01/29/2020 06/02/2021 Last Assessment & Plan: Assessment: Body mass index is 40.03 kg/m . Malnutrition of mild degree 01/27/202005/07 Type 2 diabetes mellitus 01/26/2020 022 COPD (chronic obstructive pu lmonary disease) with chronic bronchitis 01/26/2020 01/16/2022 Last Assessment & Plan: Assessment: albuterol as needed, non-smoker, 50 year household exposure Need for vaccination 03/13/2018 06/02/2021 Chronic bronchitis 03/13/2018 06/02/2021 Rotator cuff syndrome of left shoulder 8 06/02/2021 History of colonic polyps 12/02/20152015 Family history of colon cancer in mother 016 12/02/2015 Hypertriglyceridemia 10/06/2015 06/02/2021 Last Assessment & Plan: tgs are well controlled on the fenofibrate. 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 Lumpectomy, completed radiation 06/27/10. No chemotherapy. 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 06/02/2021 Last Assessment & Plan: Assessment: controlled, albuterol as needed Pure hypercholesterolemia 08/22/20052021 Last Assessment & Plan: Assessment: c/w statin Impaired fasting glucose 08/22/2005 015 Impaired glucose tolerance test 08/22/2005 09/28/2014 Myalgia and myositis, unspecified 01/21/2005 06/02/2021 Shortness of breath 01/25/2015 Morbid obesity due to excess calories 06/02/2021 Overview: Obesity Family history of malignant neoplasm of gastrointestinal tract 06/02/2021 Overview: family history of colon cancer Diaphragmatic hernia without mention of obstruction or gangrene 01/16/2022 documented as of this encounter (statuses as of 07/08/2022) [facility]01[facility] History of Past illness Narrative* Problem Noted Date Resolved Date Left groin pain 02/17/2020 06/02/2021 Morbid obesity 01/29/2020 06/02/2021 Last Assessment & Plan: Assessment: Body mass index is 40.03 kg/m . Malnutrition of mild degree 01/27/20202 09/2021 Type 2 diabetes mellitus 01/26/2020 022 COPD (chronic obstructive pu lmonary disease) with chronic bronchitis 01/26/2020 01/16/2022 Last Assessment & Plan: Assessment: albuterol as needed, non-smoker, 50 year household exposure Need for vaccination 03/13/2018 06/02/2021 Chronic bronchitis 03/13/2018 06/02/2021 Rotator cuff syndrome of left shoulder 8 06/02/2021 History of colonic polyps 12/02/20152015 Family history of colon cancer in mother 016 12/02/2015 Hypertriglyceridemia 10/06/2015 06/02/2021 Last Assessment & Plan: tgs are well controlled on the fenofibrate. 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 Lumpectomy, completed radiation 06/27/10. No chemotherapy. 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 06/02/2021 Last Assessment & Plan: Assessment: controlled, albuterol as needed Pure hypercholesterolemia 08/22/20052021 Last Assessment & Plan: Assessment: c/w statin Impaired fasting glucose 08/22/2005 015 Impaired glucose tolerance test 08/22/2005 09/28/2014 Myalgia and myositis, unspecified 01/21/2005 06/02/2021 Shortness of breath 01/25/2015 Morbid obesity due to excess calories 06/02/2021 Overview: Obesity Family history of malignant neoplasm of gastrointestinal tract 06/02/2021 Overview: family history of colon cancer Diaphragmatic hernia without mention of obstruction or gangrene 01/16/2022 documented as of this encounter (statuses as of 07/25/2022) [facility] History of Past illness Narrative* Problem Noted Date Resolved Date Left groin pain 02/17/2020 06/02/2021 Morbid obesity 01/29/2020 06/02/2021 Last Assessment & Plan: Assessment: Body mass index is 40.03 kg/m . Malnutrition of mild degree 01/27/202005/07 Type 2 diabetes mellitus 01/26/2020 022 COPD (chronic obstructive pu lmonary disease) with chronic bronchitis 01/26/2020 01/16/2022 Last Assessment & Plan: Assessment: albuterol as needed, non-smoker, 50 year household exposure Need for vaccination 03/13/2018 06/02/2021 Chronic bronchitis 03/13/2018 06/02/2021 Rotator cuff syndrome of left shoulder 8 06/02/2021 History of colonic polyps 12/02/20152015 Family history of colon cancer in mother 016 12/02/2015 Hypertriglyceridemia 10/06/2015 06/02/2021 Last Assessment & Plan: tgs are well controlled on the fenofibrate. 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 Lumpectomy, completed radiation 06/27/10. No chemotherapy. 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 06/02/2021 Last Assessment & Plan: Assessment: controlled, albuterol as needed Pure hypercholesterolemia 08/22/20052021 Last Assessment & Plan: Assessment: c/w statin Impaired fasting glucose 08/22/2005 015 Impaired glucose tolerance test 08/22/2005 09/28/2014 Myalgia and myositis, unspecified 01/21/2005 06/02/2021 Shortness of breath 01/25/2015 Morbid obesity due to excess calories 06/02/2021 Overview: Obesity Family history of malignant neoplasm of gastrointestinal tract 06/02/2021 Overview: family history of colon cancer Diaphragmatic hernia without mention of obstruction or gangrene 01/16/2022 documented as of this encounter (statuses as of 07/31/2022) [facility] History of Past illness Narrative* Problem Noted Date Resolved Date Left groin pain 02/17/2020 06/02/2021 Morbid obesity 01/29/2020 06/02/2021 Last Assessment & Plan: Assessment: Body mass index is 40.03 kg/m . Malnutrition of mild degree 01/27/202005/07 Type 2 diabetes mellitus 01/26/2020 022 COPD (chronic obstructive pu lmonary disease) with chronic bronchitis 01/26/2020 01/16/2022 Last Assessment & Plan: Assessment: albuterol as needed, non-smoker, 50 year household exposure Need for vaccination 03/13/2018 06/02/2021 Chronic bronchitis 03/13/2018 06/02/2021 Rotator cuff syndrome of left shoulder 8 06/02/2021 History of colonic polyps 12/02/20152015 Family history of colon cancer in mother 016 12/02/2015 Hypertriglyceridemia 10/06/2015 06/02/2021 Last Assessment & Plan: tgs are well controlled on the fenofibrate. 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 Lumpectomy, completed radiation 06/27/10. No chemotherapy. 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 06/02/2021 Last Assessment & Plan: Assessment: controlled, albuterol as needed Pure hypercholesterolemia 08/22/20052021 Last Assessment & Plan: Assessment: c/w statin Impaired fasting glucose 08/22/2005 015 Impaired glucose tolerance test 08/22/2005 09/28/2014 Myalgia and myositis, unspecified 01/21/2005 06/02/2021 Shortness of breath 01/25/2015 Morbid obesity due to excess calories 06/02/2021 Overview: Obesity Family history of malignant neoplasm of gastrointestinal tract 06/02/2021 Overview: family history of colon cancer Diaphragmatic hernia without mention of obstruction or gangrene 01/16/2022 documented as of this encounter (statuses as of 08/04/2022) [facility] History of Past illness Narrative* Problem Noted Date Resolved Date Left groin pain 02/17/2020 06/02/2021 Morbid obesity 01/29/2020 06/02/2021 Last Assessment & Plan: Assessment: Body mass index is 40.03 kg/m . Malnutrition of mild degree 01/27/202005/07 Type 2 diabetes mellitus 01/26/2020 022 COPD (chronic obstructive pu lmonary disease) with chronic bronchitis 01/26/2020 01/16/2022 Last Assessment & Plan: Assessment: albuterol as needed, non-smoker, 50 year household exposure Need for vaccination 03/13/2018 06/02/2021 Chronic bronchitis 03/13/2018 06/02/2021 Rotator cuff syndrome of left shoulder 8 06/02/2021 History of colonic polyps 12/02/20152015 Family history of colon cancer in mother 016 12/02/2015 Hypertriglyceridemia 10/06/2015 06/02/2021 Last Assessment & Plan: tgs are well controlled on the fenofibrate. 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 Lumpectomy, completed radiation 06/27/10. No chemotherapy. 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 06/02/2021 Last Assessment & Plan: Assessment: controlled, albuterol as needed Pure hypercholesterolemia 08/22/20052021 Last Assessment & Plan: Assessment: c/w statin Impaired fasting glucose 08/22/2005 015 Impaired glucose tolerance test 08/22/2005 09/28/2014 Myalgia and myositis, unspecified 01/21/2005 06/02/2021 Shortness of breath 01/25/2015 Morbid obesity due to excess calories 06/02/2021 Overview: Obesity Family history of malignant neoplasm of gastrointestinal tract 06/02/2021 Overview: family history of colon cancer Diaphragmatic hernia without mention of obstruction or gangrene 01/16/2022 documented as of this encounter (statuses as of 08/10/2022) [facility] [facility] History of Past illness Narrative* Problem Noted Date Diagnosed Date Resolved Date Left groin pain 02/17/2020 06/02/2021 Morbid obesity 01/29/2020 06/02/2021 Last Assessment & Plan: Assessment: Body mass index is 40.03 kg/m . Malnutrition of mild degree 01/27/2020 06/02/2021 Type 2 diabetes mellitus 01/26/2020 COPD (chronic obstructive pu lmonary disease) with chronic bronchitis 01/26/2020 01/16/2022 Last Assessment & Plan: Assessment: albuterol as needed, non-smoker, 50 year household exposure Need for vaccination 03/13/2018 022 Chronic bronchitis 03/13/2018 Rotator cuff syndrome of left shoulder 05/14/2017 06/02/2021 History of colonic polyps 12/02/2015 Family history of colon cancer in mother 12/02/2015 12/02/2015 Hypertriglyceridemia 10/06/2015 022 Last Assessment & Plan: tgs are well controlled on the fenofibrate. 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 Lumpectomy, completed radiation 06/27/10. No chemotherapy. Lumbago 08/21/2006 06/02/2021 Acute gastritis without mention of hemorrhage 06/02/19 07 06/02/2021 Extrinsic asthma 02/09/2006 06/02/2021 Last Assessment & Plan: Assessment: controlled, albuterol as needed Pure hypercholesterolemia 08/22/2005 Last Assessment & Plan: Assessment: c/w statin Impaired fasting glucose 08/22/2005 Impaired glucose tolerance test 08/22/2005 09/28/2014 Myalgia and myositis, unspecified 01/21/2005 06/02/2021 Shortness of breath 01/26/20 15 Morbid obesity due to excess calories 06/02/2021 Overview: Obesity Family history of malignant neoplasm of gastrointestinal tract 06/02/2021 Overview: family history of colon cancer Diaphragmatic hernia without mention of obstruction or gangrene 01/16/2022 documented as of this encounter (statuses as of 08/17/2022) [facility]01-12[facility]21 History of Past illness Narrative* Problem Noted Date Diagnosed Date Resolved Date Left groin pain 02/17/2020 06/02/2021 Morbid obesity 01/29/2020 06/02/2021 Last Assessment & Plan: Assessment: Body mass index is 40.03 kg/m . Malnutrition of mild degree 01/27/2020 06/02/2021 Type 2 diabetes mellitus 01/26/2020 COPD (chronic obstructive pu lmonary disease) with chronic bronchitis 01/26/2020 01/16/2022 Last Assessment & Plan: Assessment: albuterol as needed, non-smoker, 50 year household exposure Need for vaccination 03/13/2018 022 Chronic bronchitis 03/13/2018 Rotator cuff syndrome of left shoulder 05/14/2017 06/02/2021 History of colonic polyps 12/02/2015 Family history of colon cancer in mother 12/02/2015 12/02/2015 Hypertriglyceridemia 10/06/2015 022 Last Assessment & Plan: tgs are well controlled on the fenofibrate. 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 Lumpectomy, completed radiation 06/27/10. No chemotherapy. Lumbago 08/21/2006 06/02/2021 Acute gastritis without mention of hemorrhage 06/02/19 07 06/02/2021 Extrinsic asthma 02/09/2006 06/02/2021 Last Assessment & Plan: Assessment: controlled, albuterol as needed Pure hypercholesterolemia 08/22/2005 Last Assessment & Plan: Assessment: c/w statin Impaired fasting glucose 08/22/2005 Impaired glucose tolerance test 08/22/2005 09/28/2014 Myalgia and myositis, unspecified 01/21/2005 06/02/2021 Shortness of breath 01/26/20 15 Morbid obesity due to excess calories 06/02/2021 Overview: Obesity Family history of malignant neoplasm of gastrointestinal tract 06/02/2021 Overview: family history of colon cancer Diaphragmatic hernia without mention of obstruction or gangrene 01/16/2022 documented as of this encounter (statuses as of 09/20/2022) [facility]01-12-[facility]21 History of Past illness Narrative* Problem Noted Date Diagnosed Date Resolved Date Left groin pain 02/17/2020 06/02/2021 Morbid obesity 01/29/2020 06/02/2021 Last Assessment & Plan: Assessment: Body mass index is 40.03 kg/m . Malnutrition of mild degree 01/27/2020 06/02/2021 Type 2 diabetes mellitus 01/26/2020 COPD (chronic obstructive pu lmonary disease) with chronic bronchitis 01/26/2020 01/16/2022 Last Assessment & Plan: Assessment: albuterol as needed, non-smoker, 50 year household exposure Need for vaccination 03/13/2018 022 Chronic bronchitis 03/13/2018 Rotator cuff syndrome of left shoulder 05/14/2017 06/02/2021 History of colonic polyps 12/02/2015 Family history of colon cancer in mother 12/02/2015 12/02/2015 Hypertriglyceridemia 10/06/2015 022 Last Assessment & Plan: tgs are well controlled on the fenofibrate. 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 Lumpectomy, completed radiation 06/27/10. No chemotherapy. Lumbago 08/21/2006 06/02/2021 Acute gastritis without mention of hemorrhage 06/02/19 07 06/02/2021 Extrinsic asthma 02/09/2006 06/02/2021 Last Assessment & Plan: Assessment: controlled, albuterol as needed Pure hypercholesterolemia 08/22/2005 Last Assessment & Plan: Assessment: c/w statin Impaired fasting glucose 08/22/2005 Impaired glucose tolerance test 08/22/2005 09/28/2014 Myalgia and myositis, unspecified 01/21/2005 06/02/2021 Shortness of breath 01/26/20 15 Morbid obesity due to excess calories 06/02/2021 Overview: Obesity Family history of malignant neoplasm of gastrointestinal tract 06/02/2021 Overview: family history of colon cancer Diaphragmatic hernia without mention of obstruction or gangrene 01/16/2022 documented as of this encounter (statuses as of 09/21/2022) [facility]01-12-[facility]21 History of Past illness Narrative* Problem Noted Date Diagnosed Date Resolved Date Left groin pain 02/17/2020 06/02/2021 Morbid obesity 01/29/2020 06/02/2021 Last Assessment & Plan: Assessment: Body mass index is 40.03 kg/m . Malnutrition of mild degree 01/27/2020 06/02/2021 Type 2 diabetes mellitus 01/26/2020 COPD (chronic obstructive pu lmonary disease) with chronic bronchitis 01/26/2020 01/16/2022 Last Assessment & Plan: Assessment: albuterol as needed, non-smoker, 50 year household exposure Need for vaccination 03/13/2018 022 Chronic bronchitis 03/13/2018 Rotator cuff syndrome of left shoulder 05/14/2017 06/02/2021 History of colonic polyps 12/02/2015 Family history of colon cancer in mother 12/02/2015 12/02/2015 Hypertriglyceridemia 10/06/2015 022 Last Assessment & Plan: tgs are well controlled on the fenofibrate. 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 Lumpectomy, completed radiation 06/27/10. No chemotherapy. Lumbago 08/21/2006 06/02/2021 Acute gastritis without mention of hemorrhage 06/02/19 07 06/02/2021 Extrinsic asthma 02/09/2006 06/02/2021 Last Assessment & Plan: Assessment: controlled, albuterol as needed Pure hypercholesterolemia 08/22/2005 Last Assessment & Plan: Assessment: c/w statin Impaired fasting glucose 08/22/2005 Impaired glucose tolerance test 08/22/2005 09/28/2014 Myalgia and myositis, unspecified 01/21/2005 06/02/2021 Shortness of breath 01/26/20 15 Morbid obesity due to excess calories 06/02/2021 Overview: Obesity Family history of malignant neoplasm of gastrointestinal tract 06/02/2021 Overview: family history of colon cancer Diaphragmatic hernia without mention of obstruction or gangrene 01/16/2022 documented as of this encounter (statuses as of 09/22/2022) [facility]01-12-[facility]21 History of Past illness Narrative* Problem Noted Date Diagnosed Date Resolved Date Left groin pain 02/17/2020 06/02/2021 Morbid obesity 01/29/2020 06/02/2021 Last Assessment & Plan: Assessment: Body mass index is 40.03 kg/m . Malnutrition of mild degree 01/27/2020 06/02/2021 Type 2 diabetes mellitus 01/26/2020 COPD (chronic obstructive pu lmonary disease) with chronic bronchitis 01/26/2020 01/16/2022 Last Assessment & Plan: Assessment: albuterol as needed, non-smoker, 50 year household exposure Need for vaccination 03/13/2018 022 Chronic bronchitis 03/13/2018 Rotator cuff syndrome of left shoulder 05/14/2017 06/02/2021 History of colonic polyps 12/02/2015 Family history of colon cancer in mother 12/02/2015 12/02/2015 Hypertriglyceridemia 10/06/2015 022 Last Assessment & Plan: tgs are well controlled on the fenofibrate. 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 Lumpectomy, completed radiation 06/27/10. No chemotherapy. Lumbago 08/21/2006 06/02/2021 Acute gastritis without mention of hemorrhage 06/02/19 07 06/02/2021 Extrinsic asthma 02/09/2006 06/02/2021 Last Assessment & Plan: Assessment: controlled, albuterol as needed Pure hypercholesterolemia 08/22/2005 Last Assessment & Plan: Assessment: c/w statin Impaired fasting glucose 08/22/2005 Impaired glucose tolerance test 08/22/2005 09/28/2014 Myalgia and myositis, unspecified 01/21/2005 06/02/2021 Shortness of breath 01/26/20 15 Morbid obesity due to excess calories 06/02/2021 Overview: Obesity Family history of malignant neoplasm of gastrointestinal tract 06/02/2021 Overview: family history of colon cancer Diaphragmatic hernia without mention of obstruction or gangrene 01/16/2022 documented as of this encounter (statuses as of 10/05/2022) [facility]01-12-[facility]21 History of Past illness Narrative* Problem Noted Date Diagnosed Date Resolved Date Left groin pain 02/17/2020 06/02/2021 Morbid obesity 01/29/2020 06/02/2021 Last Assessment & Plan: Assessment: Body mass index is 40.03 kg/m . Malnutrition of mild degree 01/27/2020 06/02/2021 Type 2 diabetes mellitus 01/26/2020 COPD (chronic obstructive pu lmonary disease) with chronic bronchitis 01/26/2020 01/16/2022 Last Assessment & Plan: Assessment: albuterol as needed, non-smoker, 50 year household exposure Need for vaccination 03/13/2018 022 Chronic bronchitis 03/13/2018 Rotator cuff syndrome of left shoulder 05/14/2017 06/02/2021 History of colonic polyps 12/02/2015 Family history of colon cancer in mother 12/02/2015 12/02/2015 Hypertriglyceridemia 10/06/2015 022 Last Assessment & Plan: tgs are well controlled on the fenofibrate. 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 Lumpectomy, completed radiation 06/27/10. No chemotherapy. Lumbago 08/21/2006 06/02/2021 Acute gastritis without mention of hemorrhage 06/02/19 07 06/02/2021 Extrinsic asthma 02/09/2006 06/02/2021 Last Assessment & Plan: Assessment: controlled, albuterol as needed Pure hypercholesterolemia 08/22/2005 Last Assessment & Plan: Assessment: c/w statin Impaired fasting glucose 08/22/2005 Impaired glucose tolerance test 08/22/2005 09/28/2014 Myalgia and myositis, unspecified 01/21/2005 06/02/2021 Shortness of breath 01/26/20 15 Morbid obesity due to excess calories 06/02/2021 Overview: Obesity Family history of malignant neoplasm of gastrointestinal tract 06/02/2021 Overview: family history of colon cancer Diaphragmatic hernia without mention of obstruction or gangrene 01/16/2022 documented as of this encounter (statuses as of 10/06/2022) [facility]01-12-[facility]21 History of Past illness Narrative* Problem Noted Date Diagnosed Date Resolved Date Left groin pain 02/17/2020 06/02/2021 Morbid obesity 01/29/2020 06/02/2021 Last Assessment & Plan: Assessment: Body mass index is 40.03 kg/m . Malnutrition of mild degree 01/27/2020 06/02/2021 Type 2 diabetes mellitus 01/26/2020 COPD (chronic obstructive pu lmonary disease) with chronic bronchitis 01/26/2020 01/16/2022 Last Assessment & Plan: Assessment: albuterol as needed, non-smoker, 50 year household exposure Need for vaccination 03/13/2018 022 Chronic bronchitis 03/13/2018 Rotator cuff syndrome of left shoulder 05/14/2017 06/02/2021 History of colonic polyps 12/02/2015 Family history of colon cancer in mother 12/02/2015 12/02/2015 Hypertriglyceridemia 10/06/2015 022 Last Assessment & Plan: tgs are well controlled on the fenofibrate. 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 Lumpectomy, completed radiation 06/27/10. No chemotherapy. Lumbago 08/21/2006 06/02/2021 Acute gastritis without mention of hemorrhage 06/02/19 07 06/02/2021 Extrinsic asthma 02/09/2006 06/02/2021 Last Assessment & Plan: Assessment: controlled, albuterol as needed Pure hypercholesterolemia 08/22/2005 Last Assessment & Plan: Assessment: c/w statin Impaired fasting glucose 08/22/2005 Impaired glucose tolerance test 08/22/2005 09/28/2014 Myalgia and myositis, unspecified 01/21/2005 06/02/2021 Shortness of breath 01/26/20 15 Morbid obesity due to excess calories 06/02/2021 Overview: Obesity Family history of malignant neoplasm of gastrointestinal tract 06/02/2021 Overview: family history of colon cancer Diaphragmatic hernia without mention of obstruction or gangrene 01/16/2022 documented as of this encounter (statuses as of 10/07/2022) [facility]01-12-[facility]21 History of Past illness Narrative* Problem Noted Date Diagnosed Date Resolved Date Left groin pain 02/17/2020 06/02/2021 Morbid obesity 01/29/2020 06/02/2021 Last Assessment & Plan: Assessment: Body mass index is 40.03 kg/m . Malnutrition of mild degree 01/27/2020 06/02/2021 Type 2 diabetes mellitus 01/26/2020 COPD (chronic obstructive pu lmonary disease) with chronic bronchitis 01/26/2020 01/16/2022 Last Assessment & Plan: Assessment: albuterol as needed, non-smoker, 50 year household exposure Need for vaccination 03/13/2018 022 Chronic bronchitis 03/13/2018 Rotator cuff syndrome of left shoulder 05/14/2017 06/02/2021 History of colonic polyps 12/02/2015 Family history of colon cancer in mother 12/02/2015 12/02/2015 Hypertriglyceridemia 10/06/2015 022 Last Assessment & Plan: tgs are well controlled on the fenofibrate. 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 Lumpectomy, completed radiation 06/27/10. No chemotherapy. Lumbago 08/21/2006 06/02/2021 Acute gastritis without mention of hemorrhage 06/02/19 07 06/02/2021 Extrinsic asthma 02/09/2006 06/02/2021 Last Assessment & Plan: Assessment: controlled, albuterol as needed Pure hypercholesterolemia 08/22/2005 Last Assessment & Plan: Assessment: c/w statin Impaired fasting glucose 08/22/2005 Impaired glucose tolerance test 08/22/2005 09/28/2014 Myalgia and myositis, unspecified 01/21/2005 06/02/2021 Shortness of breath 01/26/20 15 Morbid obesity due to excess calories 06/02/2021 Overview: Obesity Family history of malignant neoplasm of gastrointestinal tract 06/02/2021 Overview: family history of colon cancer Diaphragmatic hernia without mention of obstruction or gangrene 01/16/2022 documented as of this encounter (statuses as of 10/07/2022) [facility]01-12-[facility] History of Past illness Narrative* Problem Noted Date Diagnosed Date Resolved Date Left groin pain 02/17/2020 06/02/2021 Morbid obesity 01/29/2020 06/02/2021 Last Assessment & Plan: Assessment: Body mass index is 40.03 kg/m . Malnutrition of mild degree 01/27/2020 06/02/2021 Type 2 diabetes mellitus 01/26/2020 COPD (chronic obstructive pu lmonary disease) with chronic bronchitis 01/26/2020 01/16/2022 Last Assessment & Plan: Assessment: albuterol as needed, non-smoker, 50 year household exposure Need for vaccination 03/13/2018 022 Chronic bronchitis 03/13/2018 Rotator cuff syndrome of left shoulder 05/14/2017 06/02/2021 History of colonic polyps 12/02/2015 Family history of colon cancer in mother 12/02/2015 12/02/2015 Hypertriglyceridemia 10/06/2015 022 Last Assessment & Plan: tgs are well controlled on the fenofibrate. 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 Lumpectomy, completed radiation 06/27/10. No chemotherapy. Lumbago 08/21/2006 06/02/2021 Acute gastritis without mention of hemorrhage 06/02/19 07 06/02/2021 Extrinsic asthma 02/09/2006 06/02/2021 Last Assessment & Plan: Assessment: controlled, albuterol as needed Pure hypercholesterolemia 08/22/2005 Last Assessment & Plan: Assessment: c/w statin Impaired fasting glucose 08/22/2005 Impaired glucose tolerance test 08/22/2005 09/28/2014 Myalgia and myositis, unspecified 01/21/2005 06/02/2021 Shortness of breath 01/26/20 15 Morbid obesity due to excess calories 06/02/2021 Overview: Obesity Family history of malignant neoplasm of gastrointestinal tract 06/02/2021 Overview: family history of colon cancer Diaphragmatic hernia without mention of obstruction or gangrene 01/16/2022 documented as of this encounter (statuses as of 10/10/2022) [facility]01[facility]12[facility] History of Past illness Narrative* Problem Noted Date Diagnosed Date Resolved Date Left groin pain 02/17/2020 06/02/2021 Morbid obesity 01/29/2020 06/02/2021 Last Assessment & Plan: Assessment: Body mass index is 40.03 kg/m . Malnutrition of mild degree 01/27/2020 06/02/2021 Type 2 diabetes mellitus 01/26/2020 COPD (chronic obstructive pu lmonary disease) with chronic bronchitis 01/26/2020 01/16/2022 Last Assessment & Plan: Assessment: albuterol as needed, non-smoker, 50 year household exposure Need for vaccination 03/13/2018 022 Chronic bronchitis 03/13/2018 Rotator cuff syndrome of left shoulder 05/14/2017 06/02/2021 History of colonic polyps 12/02/2015 Family history of colon cancer in mother 12/02/2015 12/02/2015 Hypertriglyceridemia 10/06/2015 022 Last Assessment & Plan: tgs are well controlled on the fenofibrate. 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 Lumpectomy, completed radiation 06/27/10. No chemotherapy. Lumbago 08/21/2006 06/02/2021 Acute gastritis without mention of hemorrhage 06/02/19 07 06/02/2021 Extrinsic asthma 02/09/2006 06/02/2021 Last Assessment & Plan: Assessment: controlled, albuterol as needed Pure hypercholesterolemia 08/22/2005 Last Assessment & Plan: Assessment: c/w statin Impaired fasting glucose 08/22/2005 Impaired glucose tolerance test 08/22/2005 09/28/2014 Myalgia and myositis, unspecified 01/21/2005 06/02/2021 Shortness of breath 01/26/20 15 Morbid obesity due to excess calories 06/02/2021 Overview: Obesity Family history of malignant neoplasm of gastrointestinal tract 06/02/2021 Overview: family history of colon cancer Diaphragmatic hernia without mention of obstruction or gangrene 01/16/2022 documented as of this encounter (statuses as of 11/30/2022) [facility] History of Past illness Narrative* Problem Noted Date Diagnosed Date Resolved Date Left groin pain 02/17/2020 06/02/2021 Morbid obesity 01/29/2020 06/02/2021 Last Assessment & Plan: Assessment: Body mass index is 40.03 kg/m . Malnutrition of mild degree 01/27/2020 06/02/2021 Type 2 diabetes mellitus 01/26/2020 COPD (chronic obstructive pu lmonary disease) with chronic bronchitis 01/26/2020 01/16/2022 Last Assessment & Plan: Assessment: albuterol as needed, non-smoker, 50 year household exposure Need for vaccination 03/13/2018 022 Chronic bronchitis 03/13/2018 Rotator cuff syndrome of left shoulder 05/14/2017 06/02/2021 History of colonic polyps 12/02/2015 Family history of colon cancer in mother 12/02/2015 12/02/2015 Hypertriglyceridemia 10/06/2015 022 Last Assessment & Plan: tgs are well controlled on the fenofibrate. 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 Lumpectomy, completed radiation 06/27/10. No chemotherapy. Lumbago 08/21/2006 06/02/2021 Acute gastritis without mention of hemorrhage 06/02/19 07 06/02/2021 Extrinsic asthma 02/09/2006 06/02/2021 Last Assessment & Plan: Assessment: controlled, albuterol as needed Pure hypercholesterolemia 08/22/2005 Last Assessment & Plan: Assessment: c/w statin Impaired fasting glucose 08/22/2005 Impaired glucose tolerance test 08/22/2005 09/28/2014 Myalgia and myositis, unspecified 01/21/2005 06/02/2021 Shortness of breath 01/26/20 15 Morbid obesity due to excess calories 06/02/2021 Overview: Obesity Family history of malignant neoplasm of gastrointestinal tract 06/02/2021 Overview: family history of colon cancer Diaphragmatic hernia without mention of obstruction or gangrene 01/16/2022 documented as of this encounter (statuses as of 12/11/2022) [facility]01-12-2021 History of Past illness Narrative* Problem Noted Date Diagnosed Date Resolved Date Left groin pain 02/17/2020 06/02/2021 Morbid obesity 01/29/2020 06/02/2021 Last Assessment & Plan: Assessment: Body mass index is 40.03 kg/m . Malnutrition of mild degree 01/27/2020 06/02/2021 Type 2 diabetes mellitus 01/26/2020 COPD (chronic obstructive pu lmonary disease) with chronic bronchitis 01/26/2020 01/16/2022 Last Assessment & Plan: Assessment: albuterol as needed, non-smoker, 50 year household exposure Need for vaccination 03/13/2018 022 Chronic bronchitis 03/13/2018 Rotator cuff syndrome of left shoulder 05/14/2017 06/02/2021 History of colonic polyps 12/02/2015 Family history of colon cancer in mother 12/02/2015 12/02/2015 Hypertriglyceridemia 10/06/2015 022 Last Assessment & Plan: tgs are well controlled on the fenofibrate. SHIPLA on CPAP 09/24/2015 01/16/2022 Last Assessment & Plan: Assessment: c/w CPAP infrequently CHF exacerbation 08/12/2015 06/02/2021 Hypomagnesemia 01/25/2015 06/02/2021 Last Assessment & Plan: Assessment: on supplement Diabetes mellitus type 2, co ntrolled, without complications 09/28/2014 01/25/2015 Breast screening, unspecified 09/28/2014 09/24/2015 BMI 50.0-59.9, adult 01/26/2014 017 Edema 03/22/2012 06/02/2021 Last Assessment & Plan: Assessment: on rx Abnormal mammogram, unspecified 02/10/2010 06/26/2014 Malignant neoplasm of upper- outer quadrant of female breast 02/05/2010 06/02/2021 Overview: Right. Lumpectomy, completed radiation 06/27/10. No chemotherapy. Lumbago 08/21/2006 06/02/2021 Acute gastritis without mention of hemorrhage 06/02/19 07 06/02/2021 Extrinsic asthma 02/09/2006 06/02/2021 Last Assessment & Plan: Assessment: controlled, albuterol as needed Pure hypercholesterolemia 08/22/2005 Last Assessment & Plan: Assessment: c/w statin Impaired fasting glucose 08/22/2005 Impaired glucose tolerance test 08/22/2005 09/28/2014 Myalgia and myositis, unspecified 01/21/2005 06/02/2021 Shortness of breath 01/26/20 15 Morbid obesity due to excess calories 06/02/2021 Overview: Obesity Family history of malignant neoplasm of gastrointestinal tract 06/02/2021 Overview: family history of colon cancer Diaphragmatic hernia without mention of obstruction or gangrene 01/16/2022 documented as of this encounter (statuses as of 12/12/2022) [facility]01-12-2021 History of Past illness Narrative* Problem Noted Date Diagnosed Date Resolved Date Left groin pain 02/17/2020 06/02/2021 Morbid obesity 01/29/2020 06/02/2021 Last Assessment & Plan: Assessment: Body mass index is 40.03 kg/m . Malnutrition of mild degree 01/27/2020 06/02/2021 Type 2 diabetes mellitus 01/26/2020 COPD (chronic obstructive pu lmonary disease) with chronic bronchitis 01/26/2020 01/16/2022 Last Assessment & Plan: Assessment: albuterol as needed, non-smoker, 50 year household exposure Need for vaccination 03/13/2018 022 Chronic bronchitis 03/13/2018 Rotator cuff syndrome of left shoulder 05/14/2017 06/02/2021 History of colonic polyps 12/02/2015 Family history of colon cancer in mother 12/02/2015 12/02/2015 Hypertriglyceridemia 10/06/2015 022 Last Assessment & Plan: tgs are well controlled on the fenofibrate. 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 Lumpectomy, completed radiation 06/27/10. No chemotherapy. Lumbago 08/21/2006 06/02/2021 Acute gastritis without mention of hemorrhage 06/02/19 07 06/02/2021 Extrinsic asthma 02/09/2006 06/02/2021 Last Assessment & Plan: Assessment: controlled, albuterol as needed Pure hypercholesterolemia 08/22/2005 Last Assessment & Plan: Assessment: c/w statin Impaired fasting glucose 08/22/2005 Impaired glucose tolerance test 08/22/2005 09/28/2014 Myalgia and myositis, unspecified 01/21/2005 06/02/2021 Shortness of breath 01/26/20 15 Morbid obesity due to excess calories 06/02/2021 Overview: Obesity Family history of malignant neoplasm of gastrointestinal tract 06/02/2021 Overview: family history of colon cancer Diaphragmatic hernia without mention of obstruction or gangrene 01/16/2022 documented as of this encounter (statuses as of 12/15/2022) [facility]01-12-[facility]21 History of Past illness Narrative* Problem Noted Date Diagnosed Date Resolved Date Left groin pain 02/17/2020 06/02/2021 Morbid obesity 01/29/2020 06/02/2021 Last Assessment & Plan: Assessment: Body mass index is 40.03 kg/m . Malnutrition of mild degree 01/27/2020 06/02/2021 Type 2 diabetes mellitus 01/26/2020 COPD (chronic obstructive pu lmonary disease) with chronic bronchitis 01/26/2020 01/16/2022 Last Assessment & Plan: Assessment: albuterol as needed, non-smoker, 50 year household exposure Need for vaccination 03/13/2018 022 Chronic bronchitis 03/13/2018 Rotator cuff syndrome of left shoulder 05/14/2017 06/02/2021 History of colonic polyps 12/02/2015 Family history of colon cancer in mother 12/02/2015 12/02/2015 Hypertriglyceridemia 10/06/2015 022 Last Assessment & Plan: tgs are well controlled on the fenofibrate. 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 Lumpectomy, completed radiation 06/27/10. No chemotherapy. Lumbago 08/21/2006 06/02/2021 Acute gastritis without mention of hemorrhage 06/02/19 07 06/02/2021 Extrinsic asthma 02/09/2006 06/02/2021 Last Assessment & Plan: Assessment: controlled, albuterol as needed Pure hypercholesterolemia 08/22/2005 Last Assessment & Plan: Assessment: c/w statin Impaired fasting glucose 08/22/2005 Impaired glucose tolerance test 08/22/2005 09/28/2014 Myalgia and myositis, unspecified 01/21/2005 06/02/2021 Shortness of breath 01/26/20 15 Morbid obesity due to excess calories 06/02/2021 Overview: Obesity Family history of malignant neoplasm of gastrointestinal tract 06/02/2021 Overview: family history of colon cancer Diaphragmatic hernia without mention of obstruction or gangrene 01/16/2022 documented as of this encounter (statuses as of 12/16/2022) [facility]01-12-[facility]21 History of Past illness Narrative* Problem Noted Date Diagnosed Date Resolved Date Left groin pain 02/17/2020 06/02/2021 Morbid obesity 01/29/2020 06/02/2021 Last Assessment & Plan: Assessment: Body mass index is 40.03 kg/m . Malnutrition of mild degree 01/27/2020 06/02/2021 Type 2 diabetes mellitus 01/26/2020 COPD (chronic obstructive pu lmonary disease) with chronic bronchitis 01/26/2020 01/16/2022 Last Assessment & Plan: Assessment: albuterol as needed, non-smoker, 50 year household exposure Need for vaccination 03/13/2018 022 Chronic bronchitis 03/13/2018 Rotator cuff syndrome of left shoulder 05/14/2017 06/02/2021 History of colonic polyps 12/02/2015 Family history of colon cancer in mother 12/02/2015 12/02/2015 Hypertriglyceridemia 10/06/2015 022 Last Assessment & Plan: tgs are well controlled on the fenofibrate. 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 Lumpectomy, completed radiation 06/27/10. No chemotherapy. Lumbago 08/21/2006 06/02/2021 Acute gastritis without mention of hemorrhage 06/02/19 07 06/02/2021 Extrinsic asthma 02/09/2006 06/02/2021 Last Assessment & Plan: Assessment: controlled, albuterol as needed Pure hypercholesterolemia 08/22/2005 Last Assessment & Plan: Assessment: c/w statin Impaired fasting glucose 08/22/2005 Impaired glucose tolerance test 08/22/2005 09/28/2014 Myalgia and myositis, unspecified 01/21/2005 06/02/2021 Shortness of breath 01/26/20 15 Morbid obesity due to excess calories 06/02/2021 Overview: Obesity Family history of malignant neoplasm of gastrointestinal tract 06/02/2021 Overview: family history of colon cancer Diaphragmatic hernia without mention of obstruction or gangrene 01/16/2022 documented as of this encounter (statuses as of 2022) [facility]01-12-[facility]21 History of Past illness Narrative* Problem Noted Date Diagnosed Date Resolved Date Left groin pain 02/17/2020 06/02/2021 Morbid obesity 01/29/2020 06/02/2021 Last Assessment & Plan: Assessment: Body mass index is 40.03 kg/m . Malnutrition of mild degree 01/27/2020 06/02/2021 Type 2 diabetes mellitus 01/26/2020 COPD (chronic obstructive pu lmonary disease) with chronic bronchitis 01/26/2020 01/16/2022 Last Assessment & Plan: Assessment: albuterol as needed, non-smoker, 50 year household exposure Need for vaccination 03/13/2018 022 Chronic bronchitis 03/13/2018 Rotator cuff syndrome of left shoulder 05/14/2017 06/02/2021 History of colonic polyps 12/02/2015 Family history of colon cancer in mother 12/02/2015 12/02/2015 Hypertriglyceridemia 10/06/2015 022 Last Assessment & Plan: tgs are well controlled on the fenofibrate. 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 Lumpectomy, completed radiation 06/27/10. No chemotherapy. Lumbago 08/21/2006 06/02/2021 Acute gastritis without mention of hemorrhage 06/02/19 07 06/02/2021 Extrinsic asthma 02/09/2006 06/02/2021 Last Assessment & Plan: Assessment: controlled, albuterol as needed Pure hypercholesterolemia 08/22/2005 Last Assessment & Plan: Assessment: c/w statin Impaired fasting glucose 08/22/2005 Impaired glucose tolerance test 08/22/2005 09/28/2014 Myalgia and myositis, unspecified 01/21/2005 06/02/2021 Shortness of breath 01/26/20 15 Morbid obesity due to excess calories 06/02/2021 Overview: Obesity Family history of malignant neoplasm of gastrointestinal tract 06/02/2021 Overview: family history of colon cancer Diaphragmatic hernia without mention of obstruction or gangrene 01/16/2022 documented as of this encounter (statuses as of 01/04/2023) [facility]01[facility] History of Past illness Narrative* Problem Noted Date Diagnosed Date Resolved Date Left groin pain 02/17/2020 06/02/2021 Morbid obesity 01/29/2020 06/02/2021 Last Assessment & Plan: Assessment: Body mass index is 40.03 kg/m . Malnutrition of mild degree 01/27/2020 06/02/2021 Type 2 diabetes mellitus 01/26/2020 COPD (chronic obstructive pu lmonary disease) with chronic bronchitis 01/26/2020 01/16/2022 Last Assessment & Plan: Assessment: albuterol as needed, non-smoker, 50 year household exposure Need for vaccination 03/13/2018 022 Chronic bronchitis 03/13/2018 Rotator cuff syndrome of left shoulder 05/14/2017 06/02/2021 History of colonic polyps 12/02/2015 Family history of colon cancer in mother 12/02/2015 12/02/2015 Hypertriglyceridemia 10/06/2015 022 Last Assessment & Plan: tgs are well controlled on the fenofibrate. 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 Lumpectomy, completed radiation 06/27/10. No chemotherapy. Lumbago 08/21/2006 06/02/2021 Acute gastritis without mention of hemorrhage 06/02/19 07 06/02/2021 Extrinsic asthma 02/09/2006 06/02/2021 Last Assessment & Plan: Assessment: controlled, albuterol as needed Pure hypercholesterolemia 08/22/2005 Last Assessment & Plan: Assessment: c/w statin Impaired fasting glucose 08/22/2005 Impaired glucose tolerance test 08/22/2005 09/28/2014 Myalgia and myositis, unspecified 01/21/2005 06/02/2021 Shortness of breath 01/26/20 15 Morbid obesity due to excess calories 06/02/2021 Overview: Obesity Family history of malignant neoplasm of gastrointestinal tract 06/02/2021 Overview: family history of colon cancer Diaphragmatic hernia without mention of obstruction or gangrene 01/16/2022 documented as of this encounter (statuses as of 01/05/2023) [facility]01[facility] History of Past illness Narrative* Problem Noted Date Diagnosed Date Resolved Date Left groin pain 02/17/2020 06/02/2021 Morbid obesity 01/29/2020 06/02/2021 Last Assessment & Plan: Assessment: Body mass index is 40.03 kg/m . Malnutrition of mild degree 01/27/2020 06/02/2021 Type 2 diabetes mellitus 01/26/2020 COPD (chronic obstructive pu lmonary disease) with chronic bronchitis 01/26/2020 01/16/2022 Last Assessment & Plan: Assessment: albuterol as needed, non-smoker, 50 year household exposure Need for vaccination 03/13/2018 022 Chronic bronchitis 03/13/2018 Rotator cuff syndrome of left shoulder 05/14/2017 06/02/2021 History of colonic polyps 12/02/2015 Family history of colon cancer in mother 12/02/2015 12/02/2015 Hypertriglyceridemia 10/06/2015 022 Last Assessment & Plan: tgs are well controlled on the fenofibrate. 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 Lumpectomy, completed radiation 06/27/10. No chemotherapy. Lumbago 08/21/2006 06/02/2021 Acute gastritis without mention of hemorrhage 06/02/19 07 06/02/2021 Extrinsic asthma 02/09/2006 06/02/2021 Last Assessment & Plan: Assessment: controlled, albuterol as needed Pure hypercholesterolemia 08/22/2005 Last Assessment & Plan: Assessment: c/w statin Impaired fasting glucose 08/22/2005 Impaired glucose tolerance test 08/22/2005 09/28/2014 Myalgia and myositis, unspecified 01/21/2005 06/02/2021 Shortness of breath 01/26/20 15 Morbid obesity due to excess calories 06/02/2021 Overview: Obesity Family history of malignant neoplasm of gastrointestinal tract 06/02/2021 Overview: family history of colon cancer Diaphragmatic hernia without mention of obstruction or gangrene 01/16/2022 documented as of this encounter (statuses as of 01/05/2023) [facility] History of Past illness Narrative* Problem Noted Date Diagnosed Date Resolved Date Left groin pain 02/17/2020 06/02/2021 Morbid obesity 01/29/2020 06/02/2021 Last Assessment & Plan: Assessment: Body mass index is 40.03 kg/m . Malnutrition of mild degree 01/27/2020 06/02/2021 Type 2 diabetes mellitus 01/26/2020 COPD (chronic obstructive pu lmonary disease) with chronic bronchitis 01/26/2020 01/16/2022 Last Assessment & Plan: Assessment: albuterol as needed, non-smoker, 50 year household exposure Need for vaccination 03/13/2018 022 Chronic bronchitis 03/13/2018 Rotator cuff syndrome of left shoulder 05/14/2017 06/02/2021 History of colonic polyps 12/02/2015 Family history of colon cancer in mother 12/02/2015 12/02/2015 Hypertriglyceridemia 10/06/2015 022 Last Assessment & Plan: tgs are well controlled on the fenofibrate. 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 Lumpectomy, completed radiation 06/27/10. No chemotherapy. Lumbago 08/21/2006 06/02/2021 Acute gastritis without mention of hemorrhage 06/02/19 07 06/02/2021 Extrinsic asthma 02/09/2006 06/02/2021 Last Assessment & Plan: Assessment: controlled, albuterol as needed Pure hypercholesterolemia 08/22/2005 Last Assessment & Plan: Assessment: c/w statin Impaired fasting glucose 08/22/2005 Impaired glucose tolerance test 08/22/2005 09/28/2014 Myalgia and myositis, unspecified 01/21/2005 06/02/2021 Shortness of breath 01/26/20 15 Morbid obesity due to excess calories 06/02/2021 Overview: Obesity Family history of malignant neoplasm of gastrointestinal tract 06/02/2021 Overview: family history of colon cancer Diaphragmatic hernia without mention of obstruction or gangrene 01/16/2022 documented as of this encounter (statuses as of 01/11/2023) [facility] History of Past illness Narrative* Problem Noted Date Diagnosed Date Resolved Date Left groin pain 02/17/2020 06/02/2021 Morbid obesity 01/29/2020 06/02/2021 Last Assessment & Plan: Assessment: Body mass index is 40.03 kg/m . Malnutrition of mild degree 01/27/2020 06/02/2021 Type 2 diabetes mellitus 01/26/2020 COPD (chronic obstructive pu lmonary disease) with chronic bronchitis 01/26/2020 01/16/2022 Last Assessment & Plan: Assessment: albuterol as needed, non-smoker, 50 year household exposure Need for vaccination 03/13/2018 022 Chronic bronchitis 03/13/2018 2 Rotator cuff syndrome of left shoulder 05/14/2017 06/02/2021 History of colonic polyps 12/02/2015 Family history of colon cancer in mother 12/02/2015 12/02/2015 Hypertriglyceridemia 10/06/2015 022 Last Assessment & Plan: tgs are well controlled on the fenofibrate. 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 Lumpectomy, completed radiation 06/27/10. No chemotherapy. Lumbago 08/21/2006 06/02/2021 Acute gastritis without mention of hemorrhage 06/02/19 07 06/02/2021 Extrinsic asthma 02/09/2006 06/02/2021 Last Assessment & Plan: Assessment: controlled, albuterol as needed Pure hypercholesterolemia 08/22/2005 Last Assessment & Plan: Assessment: c/w statin Impaired fasting glucose 08/22/2005 Impaired glucose tolerance test 08/22/2005 09/28/2014 Myalgia and myositis, unspecified 01/21/2005 06/02/2021 Shortness of breath 01/26/20 15 Morbid obesity due to excess calories 06/02/2021 Overview: Obesity Family history of malignant neoplasm of gastrointestinal tract 06/02/2021 Overview: family history of colon cancer Diaphragmatic hernia without mention of obstruction or gangrene 01/16/2022 documented as of this encounter (statuses as of 01/20/2023) [facility] History of Past illness Narrative* Problem Noted Date Diagnosed Date Resolved Date Left groin pain 02/17/2020 06/02/2021 Morbid obesity 01/29/2020 06/02/2021 Last Assessment & Plan: Assessment: Body mass index is 40.03 kg/m . Malnutrition of mild degree 01/27/2020 06/02/2021 Type 2 diabetes mellitus 01/26/2020 COPD (chronic obstructive pu lmonary disease) with chronic bronchitis 01/26/2020 01/16/2022 Last Assessment & Plan: Assessment: albuterol as needed, non-smoker, 50 year household exposure Need for vaccination 03/13/2018 022 Chronic bronchitis 03/13/2018 Rotator cuff syndrome of left shoulder 05/14/2017 06/02/2021 History of colonic polyps 12/02/2015 Family history of colon cancer in mother 12/02/2015 12/02/2015 Hypertriglyceridemia 10/06/2015 022 Last Assessment & Plan: tgs are well controlled on the fenofibrate. 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 Lumpectomy, completed radiation 06/27/10. No chemotherapy. Lumbago 08/21/2006 06/02/2021 Acute gastritis without mention of hemorrhage 06/02/19 07 06/02/2021 Extrinsic asthma 02/09/2006 06/02/2021 Last Assessment & Plan: Assessment: controlled, albuterol as needed Pure hypercholesterolemia 08/22/2005 Last Assessment & Plan: Assessment: c/w statin Impaired fasting glucose 08/22/2005 Impaired glucose tolerance test 08/22/2005 09/28/2014 Myalgia and myositis, unspecified 01/21/2005 06/02/2021 Shortness of breath 01/26/20 15 Morbid obesity due to excess calories 06/02/2021 Overview: Obesity Family history of malignant neoplasm of gastrointestinal tract 06/02/2021 Overview: family history of colon cancer Diaphragmatic hernia without mention of obstruction or gangrene 01/16/2022 documented as of this encounter (statuses as of 03/16/2023) [facility]01-12-[facility]21 History of Past illness Narrative* Problem Noted Date Diagnosed Date Resolved Date Left groin pain 02/17/2020 06/02/2021 Morbid obesity 01/29/2020 06/02/2021 Last Assessment & Plan: Assessment: Body mass index is 40.03 kg/m . Malnutrition of mild degree 01/27/2020 06/02/2021 Type 2 diabetes mellitus 01/26/2020 COPD (chronic obstructive pu lmonary disease) with chronic bronchitis 01/26/2020 01/16/2022 Last Assessment & Plan: Assessment: albuterol as needed, non-smoker, 50 year household exposure Need for vaccination 03/13/2018 022 Chronic bronchitis 03/13/2018 Rotator cuff syndrome of left shoulder 05/14/2017 06/02/2021 History of colonic polyps 12/02/2015 Family history of colon cancer in mother 12/02/2015 12/02/2015 Hypertriglyceridemia 10/06/2015 022 Last Assessment & Plan: tgs are well controlled on the fenofibrate. 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 Lumpectomy, completed radiation 06/27/10. No chemotherapy. Lumbago 08/21/2006 06/02/2021 Acute gastritis without mention of hemorrhage 06/02/19 07 06/02/2021 Extrinsic asthma 02/09/2006 06/02/2021 Last Assessment & Plan: Assessment: controlled, albuterol as needed Pure hypercholesterolemia 08/22/2005 Last Assessment & Plan: Assessment: c/w statin Impaired fasting glucose 08/22/2005 Impaired glucose tolerance test 08/22/2005 09/28/2014 Myalgia and myositis, unspecified 01/21/2005 06/02/2021 Shortness of breath 01/26/20 15 Morbid obesity due to excess calories 06/02/2021 Overview: Obesity Family history of malignant neoplasm of gastrointestinal tract 06/02/2021 Overview: family history of colon cancer Diaphragmatic hernia without mention of obstruction or gangrene 01/16/2022 documented as of this encounter (statuses as of 03/29/2023) [facility]01-[facility] History of Past illness Narrative* Problem Noted Date Diagnosed Date Resolved Date Left groin pain 02/17/2020 06/02/2021 Morbid obesity 01/29/2020 06/02/2021 Last Assessment & Plan: Assessment: Body mass index is 40.03 kg/m . Malnutrition of mild degree 01/27/2020 06/02/2021 Type 2 diabetes mellitus 01/26/2020 COPD (chronic obstructive pu lmonary disease) with chronic bronchitis 01/26/2020 01/16/2022 Last Assessment & Plan: Assessment: albuterol as needed, non-smoker, 50 year household exposure Need for vaccination 03/13/2018 022 Chronic bronchitis 03/13/2018 Rotator cuff syndrome of left shoulder 05/14/2017 06/02/2021 History of colonic polyps 12/02/2015 Family history of colon cancer in mother 12/02/2015 12/02/2015 Hypertriglyceridemia 10/06/2015 022 Last Assessment & Plan: tgs are well controlled on the fenofibrate. 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 Lumpectomy, completed radiation 06/27/10. No chemotherapy. Lumbago 08/21/2006 06/02/2021 Acute gastritis without mention of hemorrhage 06/02/19 07 06/02/2021 Extrinsic asthma 02/09/2006 06/02/2021 Last Assessment & Plan: Assessment: controlled, albuterol as needed Pure hypercholesterolemia 08/22/2005 Last Assessment & Plan: Assessment: c/w statin Impaired fasting glucose 08/22/2005 Impaired glucose tolerance test 08/22/2005 09/28/2014 Myalgia and myositis, unspecified 01/21/2005 06/02/2021 Shortness of breath 01/26/20 15 Morbid obesity due to excess calories 06/02/2021 Overview: Obesity Family history of malignant neoplasm of gastrointestinal tract 06/02/2021 Overview: family history of colon cancer Diaphragmatic hernia without mention of obstruction or gangrene 01/16/2022 documented as of this encounter (statuses as of 03/30/2023) [facility]01[facility] History of Past illness Narrative* Problem Noted Date Diagnosed Date Resolved Date Left groin pain 02/17/2020 06/02/2021 Morbid obesity 01/29/2020 06/02/2021 Last Assessment & Plan: Assessment: Body mass index is 40.03 kg/m . Malnutrition of mild degree 01/27/2020 06/02/2021 Type 2 diabetes mellitus 01/26/2020 COPD (chronic obstructive pu lmonary disease) with chronic bronchitis 01/26/2020 01/16/2022 Last Assessment & Plan: Assessment: albuterol as needed, non-smoker, 50 year household exposure Need for vaccination 03/13/2018 022 Chronic bronchitis 03/13/2018 Rotator cuff syndrome of left shoulder 05/14/2017 06/02/2021 History of colonic polyps 12/02/2015 Family history of colon cancer in mother 12/02/2015 12/02/2015 Hypertriglyceridemia 10/06/2015 022 Last Assessment & Plan: tgs are well controlled on the fenofibrate. 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 Lumpectomy, completed radiation 06/27/10. No chemotherapy. Lumbago 08/21/2006 06/02/2021 Acute gastritis without mention of hemorrhage 06/02/19 07 06/02/2021 Extrinsic asthma 02/09/2006 06/02/2021 Last Assessment & Plan: Assessment: controlled, albuterol as needed Pure hypercholesterolemia 08/22/2005 Last Assessment & Plan: Assessment: c/w statin Impaired fasting glucose 08/22/2005 Impaired glucose tolerance test 08/22/2005 09/28/2014 Myalgia and myositis, unspecified 01/21/2005 06/02/2021 Shortness of breath 01/26/20 15 Morbid obesity due to excess calories 06/02/2021 Overview: Obesity Family history of malignant neoplasm of gastrointestinal tract 06/02/2021 Overview: family history of colon cancer Diaphragmatic hernia without mention of obstruction or gangrene 01/16/2022 documented as of this encounter (statuses as of 03/31/2023) [facility]01-[facility] History of Past illness Narrative* Problem Noted Date Diagnosed Date Resolved Date Left groin pain 02/17/2020 06/02/2021 Morbid obesity 01/29/2020 06/02/2021 Last Assessment & Plan: Assessment: Body mass index is 40.03 kg/m . Malnutrition of mild degree 01/27/2020 06/02/2021 Type 2 diabetes mellitus 01/26/2020 COPD (chronic obstructive pu lmonary disease) with chronic bronchitis 01/26/2020 01/16/2022 Last Assessment & Plan: Assessment: albuterol as needed, non-smoker, 50 year household exposure Need for vaccination 03/13/2018 022 Chronic bronchitis 03/13/2018 Rotator cuff syndrome of left shoulder 05/14/2017 06/02/2021 History of colonic polyps 12/02/2015 Family history of colon cancer in mother 12/02/2015 12/02/2015 Hypertriglyceridemia 10/06/2015 022 Last Assessment & Plan: tgs are well controlled on the fenofibrate. 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 Lumpectomy, completed radiation 06/27/10. No chemotherapy. Lumbago 08/21/2006 06/02/2021 Acute gastritis without mention of hemorrhage 06/02/19 07 06/02/2021 Extrinsic asthma 02/09/2006 06/02/2021 Last Assessment & Plan: Assessment: controlled, albuterol as needed Pure hypercholesterolemia 08/22/2005 Last Assessment & Plan: Assessment: c/w statin Impaired fasting glucose 08/22/2005 Impaired glucose tolerance test 08/22/2005 09/28/2014 Myalgia and myositis, unspecified 01/21/2005 06/02/2021 Shortness of breath 01/26/20 15 Morbid obesity due to excess calories 06/02/2021 Overview: Obesity Family history of malignant neoplasm of gastrointestinal tract 06/02/2021 Overview: family history of colon cancer Diaphragmatic hernia without mention of obstruction or gangrene 01/16/2022 documented as of this encounter (statuses as of 04/06/2023) [facility]01[facility]21 History of Past illness Narrative* Problem Noted Date Diagnosed Date Resolved Date Left groin pain 02/17/2020 06/02/2021 Morbid obesity 01/29/2020 06/02/2021 Last Assessment & Plan: Assessment: Body mass index is 40.03 kg/m . Malnutrition of mild degree 01/27/2020 06/02/2021 Type 2 diabetes mellitus 01/26/2020 COPD (chronic obstructive pu lmonary disease) with chronic bronchitis 01/26/2020 01/16/2022 Last Assessment & Plan: Assessment: albuterol as needed, non-smoker, 50 year household exposure Need for vaccination 03/13/2018 022 Chronic bronchitis 03/13/2018 Rotator cuff syndrome of left shoulder 05/14/2017 06/02/2021 History of colonic polyps 12/02/2015 Family history of colon cancer in mother 12/02/2015 12/02/2015 Hypertriglyceridemia 10/06/2015 022 Last Assessment & Plan: tgs are well controlled on the fenofibrate. 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 Lumpectomy, completed radiation 06/27/10. No chemotherapy. Lumbago 08/21/2006 06/02/2021 Acute gastritis without mention of hemorrhage 06/02/19 07 06/02/2021 Extrinsic asthma 02/09/2006 06/02/2021 Last Assessment & Plan: Assessment: controlled, albuterol as needed Pure hypercholesterolemia 08/22/2005 Last Assessment & Plan: Assessment: c/w statin Impaired fasting glucose 08/22/2005 Impaired glucose tolerance test 08/22/2005 09/28/2014 Myalgia and myositis, unspecified 01/21/2005 06/02/2021 Shortness of breath 01/26/20 15 Morbid obesity due to excess calories 06/02/2021 Overview: Obesity Family history of malignant neoplasm of gastrointestinal tract 06/02/2021 Overview: family history of colon cancer Diaphragmatic hernia without mention of obstruction or gangrene 01/16/2022 documented as of this encounter (statuses as of 04/06/2023) [facility]01[facility] History of Past illness Narrative* Problem Noted Date Diagnosed Date Resolved Date Left groin pain 02/17/2020 06/02/2021 Morbid obesity 01/29/2020 06/02/2021 Last Assessment & Plan: Assessment: Body mass index is 40.03 kg/m . Malnutrition of mild degree 01/27/2020 06/02/2021 Type 2 diabetes mellitus 01/26/2020 COPD (chronic obstructive pu lmonary disease) with chronic bronchitis 01/26/2020 01/16/2022 Last Assessment & Plan: Assessment: albuterol as needed, non-smoker, 50 year household exposure Need for vaccination 03/13/2018 022 Chronic bronchitis 03/13/2018 Rotator cuff syndrome of left shoulder 05/14/2017 06/02/2021 History of colonic polyps 12/02/2015 Family history of colon cancer in mother 12/02/2015 12/02/2015 Hypertriglyceridemia 10/06/201506/02/2 022 Last Assessment & Plan: tgs are well controlled on the fenofibrate. 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 Lumpectomy, completed radiation 06/27/10. No chemotherapy. Lumbago 08/21/2006 06/02/2021 Acute gastritis without mention of hemorrhage 06/02/19 07 06/02/2021 Extrinsic asthma 02/09/2006 06/02/2021 Last Assessment & Plan: Assessment: controlled, albuterol as needed Pure hypercholesterolemia 08/22/2005 Last Assessment & Plan: Assessment: c/w statin Impaired fasting glucose 08/22/2005 Impaired glucose tolerance test 08/22/2005 09/28/2014 Myalgia and myositis, unspecified 01/21/2005 06/02/2021 Shortness of breath 01/26/20 15 Morbid obesity due to excess calories 06/02/2021 Overview: Obesity Family history of malignant neoplasm of gastrointestinal tract 06/02/2021 Overview: family history of colon cancer Diaphragmatic hernia without mention of obstruction or gangrene 01/16/2022 documented as of this encounter (statuses as of 05/08/2023) [facility] History of Past illness Narrative* Problem Noted Date Diagnosed Date Resolved Date Left groin pain 02/17/2020 06/02/2021 Morbid obesity 01/29/2020 06/02/2021 Last Assessment & Plan: Assessment: Body mass index is 40.03 kg/m . Malnutrition of mild degree 01/27/2020 06/02/2021 Type 2 diabetes mellitus 01/26/2020 COPD (chronic obstructive pu lmonary disease) with chronic bronchitis 01/26/2020 01/16/2022 Last Assessment & Plan: Assessment: albuterol as needed, non-smoker, 50 year household exposure Need for vaccination 03/13/2018 022 Chronic bronchitis 03/13/2018 Rotator cuff syndrome of left shoulder 05/14/2017 06/02/2021 History of colonic polyps 12/02/2015 Family history of colon cancer in mother 12/02/2015 12/02/2015 Hypertriglyceridemia 10/06/2015 022 Last Assessment & Plan: tgs are well controlled on the fenofibrate. 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 Lumpectomy, completed radiation 06/27/10. No chemotherapy. Lumbago 08/21/2006 06/02/2021 Acute gastritis without mention of hemorrhage 06/02/19 07 06/02/2021 Extrinsic asthma 02/09/2006 06/02/2021 Last Assessment & Plan: Assessment: controlled, albuterol as needed Pure hypercholesterolemia 08/22/2005 Last Assessment & Plan: Assessment: c/w statin Impaired fasting glucose 08/22/2005 Impaired glucose tolerance test 08/22/2005 09/28/2014 Myalgia and myositis, unspecified 01/21/2005 06/02/2021 Shortness of breath 01/26/20 15 Morbid obesity due to excess calories 06/02/2021 Overview: Obesity Family history of malignant neoplasm of gastrointestinal tract 06/02/2021 Overview: family history of colon cancer Diaphragmatic hernia without mention of obstruction or gangrene 01/16/2022 documented as of this encounter (statuses as of 05/10/2023) [facility] History of Past illness Narrative* Problem Noted Date Diagnosed Date Resolved Date Left groin pain 02/17/2020 06/02/2021 Morbid obesity 01/29/2020 06/02/2021 Last Assessment & Plan: Assessment: Body mass index is 40.03 kg/m . Malnutrition of mild degree 01/27/2020 06/02/2021 Type 2 diabetes mellitus 01/26/2020 COPD (chronic obstructive pu lmonary disease) with chronic bronchitis 01/26/2020 01/16/2022 Last Assessment & Plan: Assessment: albuterol as needed, non-smoker, 50 year household exposure Need for vaccination 03/13/2018 022 Chronic bronchitis 03/13/2018 Rotator cuff syndrome of left shoulder 05/14/2017 06/02/2021 History of colonic polyps 12/02/2015 Family history of colon cancer in mother 12/02/2015 12/02/2015 Hypertriglyceridemia 10/06/2015 022 Last Assessment & Plan: tgs are well controlled on the fenofibrate. 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 Lumpectomy, completed radiation 06/27/10. No chemotherapy. Lumbago 08/21/2006 06/02/2021 Acute gastritis without mention of hemorrhage 06/02/19 07 06/02/2021 Extrinsic asthma 02/09/2006 06/02/2021 Last Assessment & Plan: Assessment: controlled, albuterol as needed Pure hypercholesterolemia 08/22/2005 Last Assessment & Plan: Assessment: c/w statin Impaired fasting glucose 08/22/2005 Impaired glucose tolerance test 08/22/2005 09/28/2014 Myalgia and myositis, unspecified 01/21/2005 06/02/2021 Shortness of breath 01/26/20 15 Morbid obesity due to excess calories 06/02/2021 Overview: Obesity Family history of malignant neoplasm of gastrointestinal tract 06/02/2021 Overview: family history of colon cancer Diaphragmatic hernia without mention of obstruction or gangrene 01/16/2022 documented as of this encounter (statuses as of 05/24/2023) [facility] History of Past illness Narrative* Problem Noted Date Resolved Date History of colonic polyps 12/02/20152015 Family history of colon cancer in mother 016 12/02/2015 Diabetes mellitus type 2, controlled, without co mplications 09/28/2014 01/25/2015 Breast screening, unspecified 09/28/2014 BMI 50.0-59.9, adult 01/26/2014 05/06/2016 Abnormal mammogram, unspecified 02/10/2010 06/26/2014 Impaired fasting glucose 08/22/2005 015 Impaired glucose tolerance test 08/22/2005 09/28/2014 Shortness of breath 01/25/2015 documented as of this encounter (statuses as of 05/04/2021) [facility] of Past illness Narrative* Problem Noted Date Resolved Date History of colonic polyps 12/02/20152015 Family history of colon cancer in mother 016 12/02/2015 Diabetes mellitus type 2, controlled, without co mplications 09/28/2014 01/25/2015 Breast screening, unspecified 09/28/2014 BMI 50.0-59.9, adult 01/26/2014 05/06/2016 Abnormal mammogram, unspecified 02/10/2010 06/26/2014 Impaired fasting glucose 08/22/2005 015 Impaired glucose tolerance test 08/22/2005 09/28/2014 Shortness of breath 01/25/2015 documented as of this encounter (statuses as of 05/27/2021) [facility] of Past illness Narrative* Problem Noted Date Resolved Date History of colonic polyps 12/02/20152015 Family history of colon cancer in mother 016 12/02/2015 Diabetes mellitus type 2, controlled, without co mplications 09/28/2014 01/25/2015 Breast screening, unspecified 09/28/2014 BMI 50.0-59.9, adult 01/26/2014 05/06/2016 Abnormal mammogram, unspecified 02/10/2010 06/26/2014 Impaired fasting glucose 08/22/2005 015 Impaired glucose tolerance test 08/22/2005 09/28/2014 Shortness of breath 01/25/2015 documented as of this encounter (statuses as of 06/01/2021) [facility] of [facility] illness Narrative* Problem Noted Date Resolved Date History of colonic polyps 12/02/20152015 Family history of colon cancer in mother 016 12/02/2015 Diabetes mellitus type 2, controlled, without co mplications 09/28/2014 01/25/2015 Breast screening, unspecified 09/28/2014 BMI 50.0-59.9, adult 01/26/2014 05/06/2016 Abnormal mammogram, unspecified 02/10/2010 06/26/2014 Impaired fasting glucose 08/22/2005 015 Impaired glucose tolerance test 08/22/2005 09/28/2014 Shortness of breath 01/25/2015 documented as of this encounter (statuses as of 06/02/2021) [facility] Diagnosis 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 of transverse colon documented in this encounter [facility] note* Diagnosis Visit for screening mammogram- Primary Other screening mamm[facility]* Diagnosis Type 2 diabetes mellitus with diabetic neuropathy, with long-term current use of insulin (HCC)- Primary Bilateral lower extremity edema Edema Hypertension goal BP (blood pressure) < 150/90 Unspecified essential hypertension COPD (chronic obstructive pulmonary disease) with chronic bronchitis (HCC) Obstructive chronic bronchitis without exacerbation Sleep apnea, obstructive Obstructive sleep apnea (adult) (pediatric) Stage 3 chronic kidney disease, unspecified whether stage 3a or 3b CKD (HCC) Chronic diastolic CHF (congestive heart failure) (HCC) Chronic diastolic heart failure Type 2 diabetes mellitus with stage 3b chronic kidney disease, with long-term current use of insulin (HCC) [facility] noteNo assessment information availableWReg[facility] Work Phone: Evaluation note* Diagnosis LUQ abdominal pain- Primary Abdominal pain, left upper quadrant [facility] Personal history of colon cancer Personal history of malignant neoplasm of large intestine LUQ abdominal pain Abdominal pain, left upper quadrant [facility] Hypertension goal BP (blood pressure) < 150/90 Unspecified essential hypertension [facility] 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 Lung nodules Other nonspecific abnormal finding of lung field Secondary malignant neoplasm of chest wall (HCC) Secondary malignant neoplasm of other specified sites [facility] Secondary malignant neoplasm of chest wall (HCC) Secondary malignant neoplasm of other specified sites 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 Lung nodules Other nonspecific abnormal finding of lung field [facility] Diagnosis 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 of transverse colon [facility] Diagnosis Arthritis of knee- Primary Unspecified arthropathy, lower leg Type 2 diabetes mellitus with diabetic neuropathy, with long-term current use of insulin (HCC) Hypertension goal BP (blood pressure) < 150/90 Unspecified essential hypertension Stage 3 chronic kidney disease, unspecified whether stage 3a or 3b CKD (HCC) [facility] Diagnosis 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 of transverse colon [facility] Diagnosis COPD (chronic obstructive pulmonary disease) with chronic bronchitis (HCC)- Primary Obstructive chronic bronchitis without exacerbation SHILPA (obstructive sleep apnea) Obstructive sleep apnea (adult) (pediatric) Lung nodule Solitary pulmonary nodule [facility] Diagnosis 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 of transverse colon [facility] Diagnosis Type 2 diabetes mellitus with stage 3 chronic kidney disease, with long-term current use of insulin (HCC) [facility] Diagnosis 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 Type 2 diabetes mellitus with stage 3 chronic kidney disease, with long-term current use of insulin (HCC) Secondary malignant neoplasm of chest wall (HCC) Secondary malignant neoplasm of other specified sites 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 Lung nodules Other nonspecific abnormal finding of lung field [facility] Diagnosis 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 Lung nodules Other nonspecific abnormal finding of lung field [facility] Diagnosis Diabetic mononeuropathy associated with diabetes mellitus due to underlying condition (HCC)- Primary Pes planus of both feet [facility] Diagnosis 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)- Primary Type II or unspecified type diabetes mellitus with neurological manifestations, not stated as uncontrolled Need for influenza vaccination Need for prophylactic vaccination and inoculation against influenza 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) SHILPA on CPAP Obstructive sleep apnea (adult) (pediatric) Hypertension goal BP (blood pressure) < 150/90 Unspecified essential hypertension [facility] 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) Type II or unspecified type diabetes mellitus with neurological manifestations, not stated as uncontrolled [facility] Diagnosis 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 [facility] Diagnosis 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) Type II or unspecified type diabetes mellitus with neurological manifestations, not stated as uncontrolled [facility] Diagnosis COPD (chronic obstructive pulmonary disease) with chronic bronchitis (HCC) Obstructive chronic bronchitis without exacerbation [facility] Diagnosis COPD (chronic obstructive pulmonary disease) with chronic bronchitis (HCC) Obstructive chronic bronchitis without exacerbation [facility] Diagnosis Lung nodule- Primary Solitary pulmonary nodule COPD, mild (HCC) Chronic airway obstruction, not elsewhere classified Morbid obesity (HCC) Morbid obesity [facility] Diagnosis Hypomagnesemia Disorders of magnesium metabolism [facility] Diagnosis 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 [facility] Diagnosis Burning tongue- Primary Glossodynia Optic papillitis of both eyes Optic papillitis Vitamin B12 deficiency Other B-complex deficiencies Vitamin D deficiency Unspecified vitamin D deficiency 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) Type II or unspecified type diabetes mellitus with neurological manifestations, not stated as uncontrolled [facility] Diagnosis UARS (upper airway resistance syndrome)- Primary Other organic sleep disorders History of obstructive sleep apnea Class 3 severe obesity with body mass index (BMI) of 40.0 to 44.9 in adult, unspecified obesity type, unspecified whether serious comorbidity present (HCC) [facility] Diagnosis 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) Type II or unspecified type diabetes mellitus with neurological manifestations, not stated as uncontrolled [facility] 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 Lung nodules Other nonspecific abnormal finding of lung field [facility] 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 Lung nodules Other nonspecific abnormal finding of lung field [facility] Double vision- Primary Diplopia Dizziness Dizziness and giddiness Vertigo Dizziness and giddiness Intractable headache, unspecified chronicity pattern, unspecified headache type Thunderclap headache Headache H/O colon cancer, stage IV Personal history of malignant neoplasm of large intestine [facility] Diagnosis Double vision- Primary Diplopia Nonintractable headache, unspecified chronicity pattern, unspecified headache type Hospital discharge follow-up Other follow-up examination Rheumatoid arthritis involving multiple sites, unspecified whether rheumatoid factor present (HCC) 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) Chronic diastolic CHF (congestive heart failure) (HCC) Chronic diastolic heart failure [facility] Hypertension goal BP (blood pressure) < 150/90 Unspecified essential hypertension [facility] Diagnosis Hypertension goal BP (blood pressure) < 150/90 Unspecified essential hypertension [facility] Diagnosis Left abducens nerve palsy- Primary [facility]* Diagnosis 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 [facility] Diagnosis COPD (chronic obstructive pulmonary disease) with chronic bronchitis (HCC) Obstructive chronic bronchitis without exacerbation [facility]* Diagnosis 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 [facility]* Diagnosis Thrush- Primary Candidiasis of mouth Localized dermatitis Contact dermatitis and other eczema, due to unspecified cause [facility]* Diagnosis 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)- Primary Type II or unspecified type diabetes mellitus with neurological manifestations, not stated as uncontrolled Hypertension goal BP (blood pressure) < 150/90 Unspecified essential hypertension Rash Rash and other nonspecific skin eruption Stage 3 chronic kidney disease, unspecified whether stage 3a or 3b CKD (HCC) Hypercalcemia [facility]* Diagnosis Diabetic mononeuropathy associated with diabetes mellitus due to underlying condition (HCC)- Primary Pes planus of both feet [facility]* Diagnosis Dysuria- Primary [facility]* Diagnosis Epiploic appendagitis- Primary Other and unspecified noninfectious gastroenteritis and colitis Epigastric pain Abdominal pain, epigastric [facility]* Diagnosis 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)- Primary Type II or unspecified type diabetes mellitus with neurological manifestations, not stated as uncontrolled 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) Hematuria, unspecified type Stage 3 chronic kidney disease, unspecified whether stage 3a or 3b CKD (HCC) [facility]* Diagnosis 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 Lung nodules Other nonspecific abnormal finding of lung field [facility] Diagnosis 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 Lung nodules Other nonspecific abnormal finding of lung field [facility]* Diagnosis Hematuria, unspecified type- Primary [facility] Diagnosis 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 [facility] Diagnosis Type 2 diabetes mellitus with diabetic neuropathy, with long-term current use of insulin (HCC)- Primary Arthritis of foot Unspecified arthropathy, ankle and foot [facility] Diagnosis PMB (postmenopausal bleeding)- Primary Postmenopausal bleeding Vaginal discharge Leukorrhea, not specified as infective Hematuria, unspecified type [facility] Diagnosis Vaginal discharge Leukorrhea, not specified as infective PMB (postmenopausal bleeding) Postmenopausal bleeding [facility] Diagnosis Fluid in endometrial cavity- Primary Other specified disorders of uterus, not elsewhere classified PMB (postmenopausal bleeding) Postmenopausal bleeding [facility]* Diagnosis 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 Lung nodules Other nonspecific abnormal finding of lung field [facility] Diagnosis 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 Lung nodules Other nonspecific abnormal finding of lung field [facility] Diagnosis Lung nodules- Primary Other nonspecific abnormal finding of lung field 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 [facility] Diagnosis COPD, mild (HCC)- Primary Chronic airway obstruction, not elsewhere classified Lung nodules Other nonspecific abnormal finding of lung field History of colon cancer Personal history of malignant neoplasm of large intestine [facility]* Diagnosis Onset Date Resolution Status Chronic diastolic (congestive) heart failure chronic Essential hypertension chron ic Hyperlipidemia chronic [facility] Work Phone: Evaluation note* Diagnosis 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) Type II or unspecified type diabetes mellitus with neurological manifestations, not stated as uncontrolled [facility] Diagnosis 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 of transverse colon [facility] Diagnosis Lung nodules Other nonspecific abnormal finding of lung field 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 [facility] Diagnosis 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 of transverse colon Lung nodules Other nonspecific abnormal finding of lung field 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 [facility] Diagnosis 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 of transverse colon 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) Type II or unspecified type diabetes mellitus with neurological manifestations, not stated as uncontrolled 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 Lung nodules Other nonspecific abnormal finding of lung field [facility] Diagnosis 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)- Primary Type II or unspecified type diabetes mellitus with neurological manifestations, not stated as uncontrolled 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 [facility]* Diagnosis Encounter for screening mammogram for malignant neoplasm of breast- Primary Other screening mammogram Mammographic heterogeneous density, bilateral breasts [facility]* Diagnosis RLS (restless legs syndrome)- Primary Restless legs syndrome (RLS) History of iron deficiency Personal history of diseases of blood and blood-forming organs 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) Type II or unspecified type diabetes mellitus with neurological manifestations, not stated as uncontrolled Primary hypertension Unspecified essential hypertension Bilateral lower extremity edema Edema Hypomagnesemia Disorders of magnesium metabolism Vitamin B12 deficiency Other B-complex deficiencies Vitamin D deficiency Unspecified vitamin D deficiency [facility]* Diagnosis Encounter for screening mammogram for malignant neoplasm of breast Other screening mammogram Mammographic heterogeneous density, bilateral breasts [facility]* Diagnosis 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 Lung nodules Other nonspecific abnormal finding of lung field 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 [facility]* Diagnosis 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 Lung nodules Other nonspecific abnormal finding of lung field 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 [facility]* Diagnosis Abnormal mammogram Abnormal mammogram, unspecified [facility]* Diagnosis Abnormal mammogram Abnormal mammogram, unspecified [facility] Diagnosis Primary hypertension Unspecified essential hypertension [facility] Diagnosis Lower abdominal pain- Primary Abdominal pain, other specified site RLS (restless legs syndrome) Restless legs syndrome (RLS) Function kidney decreased Unspecified disorder of kidney and ureter [facility] Diagnosis COPD, mild (HCC)- Primary Chronic airway obstruction, not elsewhere classified Pulmonary nodules Other nonspecific abnormal finding of lung field Class 2 obesity [facility] Diagnosis Type 2 diabetes mellitus with diabetic neuropathy, with long-term current use of insulin (HCC)- Primary Stage 3 chronic kidney disease, unspecified whether stage 3a or 3b CKD (HCC) Chronic diastolic CHF (congestive heart failure) (HCC) Chronic diastolic heart failure [facility] Diagnosis Vaginal pain- Primary Unspecified symptom associated with female genital organs Continuous leakage of urine Continuous leakage Constipation, unspecified constipation type [facility] Diagnosis Hypertension goal BP (blood pressure) < 150/90- Primary Unspecified essential hypertension Need for vaccination Need for prophylactic vaccination and inoculation against unspecified single disease Hypercalcemia Hypertriglyceridemia Pure hyperglyceridemia Pure hypercholesterolemia 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) Type II or unspecified type diabetes mellitus with neurological manifestations, not stated as uncontrolled Sciatica of right side Sciatica Encounter for screening mammogram for breast cancer 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) Rheumatoid arthritis involving multiple sites, unspecified rheumatoid factor presence Morbid obesity due to excess calories (HCC) Pre-operative examination- Primary Preoperative examination, unspecified 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 Status post right hemicolectomy Other postprocedural status Chronic diastolic CHF (congestive heart failure) (HCC) Chronic diastolic heart failure Hypertension goal BP (blood pressure) < 150/90 Unspecified essential hypertension Pure hypercholesterolemia SHILPA on CPAP Obstructive sleep apnea (adult) (pediatric) Extrinsic asthma without complication, unspecified asthma severity, unspecified whether persistent COPD (chronic obstructive pulmonary disease) with chronic bronchitis (HCC) Obstructive chronic bronchitis without exacerbation Gastroesophageal reflux disease without esophagitis Esophageal reflux Iron malabsorption Other specified intestinal malabsorption Stage 3 chronic kidney disease, unspecified whether stage 3a or 3b CKD (HCC) Hypomagnesemia Disorders of magnesium metabolism Bilateral renal cysts Unspecified congenital cystic kidney disease Malignant neoplasm of right breast in female, estrogen receptor positive, unspecified site of breast (HCC) Rheumatoid arthritis involving multiple sites, unspecified whether rheumatoid factor present (HCC) Edema, unspecified type Morbid obesity (HCC) Morbid obesity Chronic pain syndrome 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 Lung nodules Other nonspecific abnormal finding of lung field 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 [facility] Diagnosis Hypertension goal BP (blood pressure) < 150/90- Primary Unspecified essential hypertension Need for vaccination Need for prophylactic vaccination and inoculation against unspecified single disease Hypercalcemia Hypertriglyceridemia Pure hyperglyceridemia Pure hypercholesterolemia 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) Type II or unspecified type diabetes mellitus with neurological manifestations, not stated as uncontrolled Sciatica of right side Sciatica Encounter for screening mammogram for breast cancer 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) Rheumatoid arthritis involving multiple sites, unspecified rheumatoid factor presence Morbid obesity due to excess calories (HCC) Pre-operative examination- Primary Preoperative examination, unspecified 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 Status post right hemicolectomy Other postprocedural status Chronic diastolic CHF (congestive heart failure) (HCC) Chronic diastolic heart failure Hypertension goal BP (blood pressure) < 150/90 Unspecified essential hypertension Pure hypercholesterolemia SHILPA on CPAP Obstructive sleep apnea (adult) (pediatric) Extrinsic asthma without complication, unspecified asthma severity, unspecified whether persistent COPD (chronic obstructive pulmonary disease) with chronic bronchitis (HCC) Obstructive chronic bronchitis without exacerbation Gastroesophageal reflux disease without esophagitis Esophageal reflux Iron malabsorption Other specified intestinal malabsorption Stage 3 chronic kidney disease, unspecified whether stage 3a or 3b CKD (HCC) Hypomagnesemia Disorders of magnesium metabolism Bilateral renal cysts Unspecified congenital cystic kidney disease Malignant neoplasm of right breast in female, estrogen receptor positive, unspecified site of breast (HCC) Rheumatoid arthritis involving multiple sites, unspecified whether rheumatoid factor present (HCC) Edema, unspecified type Morbid obesity (HCC) Morbid obesity Chronic pain syndrome 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 of transverse colon Lung nodules Other nonspecific abnormal finding of lung field 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 [facility] Diagnosis Hypertension goal BP (blood pressure) < 150/90- Primary Unspecified essential hypertension Need for vaccination Need for prophylactic vaccination and inoculation against unspecified single disease Hypercalcemia Hypertriglyceridemia Pure hyperglyceridemia Pure hypercholesterolemia 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) Type II or unspecified type diabetes mellitus with neurological manifestations, not stated as uncontrolled Sciatica of right side Sciatica Encounter for screening mammogram for breast cancer 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) Rheumatoid arthritis involving multiple sites, unspecified rheumatoid factor presence Morbid obesity due to excess calories (HCC) Pre-operative examination- Primary Preoperative examination, unspecified 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 Status post right hemicolectomy Other postprocedural status Chronic diastolic CHF (congestive heart failure) (HCC) Chronic diastolic heart failure Hypertension goal BP (blood pressure) < 150/90 Unspecified essential hypertension Pure hypercholesterolemia SHILPA on CPAP Obstructive sleep apnea (adult) (pediatric) Extrinsic asthma without complication, unspecified asthma severity, unspecified whether persistent COPD (chronic obstructive pulmonary disease) with chronic bronchitis (HCC) Obstructive chronic bronchitis without exacerbation Gastroesophageal reflux disease without esophagitis Esophageal reflux Iron malabsorption Other specified intestinal malabsorption Stage 3 chronic kidney disease, unspecified whether stage 3a or 3b CKD (HCC) Hypomagnesemia Disorders of magnesium metabolism Bilateral renal cysts Unspecified congenital cystic kidney disease Malignant neoplasm of right breast in female, estrogen receptor positive, unspecified site of breast (HCC) Rheumatoid arthritis involving multiple sites, unspecified whether rheumatoid factor present (HCC) Edema, unspecified type Morbid obesity (HCC) Morbid obesity Chronic pain syndrome Medicare annual wellness visit, subsequent- Primary Routine general medical examination at a health care facility Encounter for immunization Need for other specified prophylactic vaccination against single bacterial disease Screening for depression Encounter for screening examination for other mental health and behavioral disorders documented in this encounter [facility] note* Diagnosis Hypertension goal BP (blood pressure) < 150/90- Primary Unspecified essential hypertension Need for vaccination Need for prophylactic vaccination and inoculation against unspecified single disease Hypercalcemia Hypertriglyceridemia Pure hyperglyceridemia Pure hypercholesterolemia 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) Type II or unspecified type diabetes mellitus with neurological manifestations, not stated as uncontrolled Sciatica of right side Sciatica Encounter for screening mammogram for breast cancer 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) Rheumatoid arthritis involving multiple sites, unspecified rheumatoid factor presence Morbid obesity due to excess calories (HCC) Pre-operative examination- Primary Preoperative examination, unspecified 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 Status post right hemicolectomy Other postprocedural status Chronic diastolic CHF (congestive heart failure) (HCC) Chronic diastolic heart failure Hypertension goal BP (blood pressure) < 150/90 Unspecified essential hypertension Pure hypercholesterolemia SHILPA on CPAP Obstructive sleep apnea (adult) (pediatric) Extrinsic asthma without complication, unspecified asthma severity, unspecified whether persistent COPD (chronic obstructive pulmonary disease) with chronic bronchitis (HCC) Obstructive chronic bronchitis without exacerbation Gastroesophageal reflux disease without esophagitis Esophageal reflux Iron malabsorption Other specified intestinal malabsorption Stage 3 chronic kidney disease, unspecified whether stage 3a or 3b CKD (HCC) Hypomagnesemia Disorders of magnesium metabolism Bilateral renal cysts Unspecified congenital cystic kidney disease Malignant neoplasm of right breast in female, estrogen receptor positive, unspecified site of breast (HCC) Rheumatoid arthritis involving multiple sites, unspecified whether rheumatoid factor present (HCC) Edema, unspecified type Morbid obesity (HCC) Morbid obesity Chronic pain syndrome 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) Type II or unspecified type diabetes mellitus with neurological manifestations, not stated as uncontrolled [facility] Hypertension goal BP (blood pressure) < 150/90- Primary Unspecified essential hypertension Need for vaccination Need for prophylactic vaccination and inoculation against unspecified single disease Hypercalcemia Hypertriglyceridemia Pure hyperglyceridemia Pure hypercholesterolemia 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) Type II or unspecified type diabetes mellitus with neurological manifestations, not stated as uncontrolled Sciatica of right side Sciatica Encounter for screening mammogram for breast cancer 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) Rheumatoid arthritis involving multiple sites, unspecified rheumatoid factor presence Morbid obesity due to excess calories (HCC) Pre-operative examination- Primary Preoperative examination, unspecified 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 Status post right hemicolectomy Other postprocedural status Chronic diastolic CHF (congestive heart failure) (HCC) Chronic diastolic heart failure Hypertension goal BP (blood pressure) < 150/90 Unspecified essential hypertension Pure hypercholesterolemia SHILPA on CPAP Obstructive sleep apnea (adult) (pediatric) Extrinsic asthma without complication, unspecified asthma severity, unspecified whether persistent COPD (chronic obstructive pulmonary disease) with chronic bronchitis (HCC) Obstructive chronic bronchitis without exacerbation Gastroesophageal reflux disease without esophagitis Esophageal reflux Iron malabsorption Other specified intestinal malabsorption Stage 3 chronic kidney disease, unspecified whether stage 3a or 3b CKD (HCC) Hypomagnesemia Disorders of magnesium metabolism Bilateral renal cysts Unspecified congenital cystic kidney disease Malignant neoplasm of right breast in female, estrogen receptor positive, unspecified site of breast (HCC) Rheumatoid arthritis involving multiple sites, unspecified whether rheumatoid factor present (HCC) Edema, unspecified type Morbid obesity (HCC) Morbid obesity Chronic pain syndrome Nausea- Primary Nausea alone Change in bowel habits Other symptoms involving digestive system History of colon cancer Personal history of malignant neoplasm of large [facility] Hypertension goal BP (blood pressure) < 150/90- Primary Unspecified essential hypertension Need for vaccination Need for prophylactic vaccination and inoculation against unspecified single disease Hypercalcemia Hypertriglyceridemia Pure hyperglyceridemia Pure hypercholesterolemia 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) Type II or unspecified type diabetes mellitus with neurological manifestations, not stated as uncontrolled Sciatica of right side Sciatica Encounter for screening mammogram for breast cancer 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) Rheumatoid arthritis involving multiple sites, unspecified rheumatoid factor presence Morbid obesity due to excess calories (HCC) Pre-operative examination- Primary Preoperative examination, unspecified 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 Status post right hemicolectomy Other postprocedural status Chronic diastolic CHF (congestive heart failure) (HCC) Chronic diastolic heart failure Hypertension goal BP (blood pressure) < 150/90 Unspecified essential hypertension Pure hypercholesterolemia SHILPA on CPAP Obstructive sleep apnea (adult) (pediatric) Extrinsic asthma without complication, unspecified asthma severity, unspecified whether persistent COPD (chronic obstructive pulmonary disease) with chronic bronchitis (HCC) Obstructive chronic bronchitis without exacerbation Gastroesophageal reflux disease without esophagitis Esophageal reflux Iron malabsorption Other specified intestinal malabsorption Stage 3 chronic kidney disease, unspecified whether stage 3a or 3b CKD (HCC) Hypomagnesemia Disorders of magnesium metabolism Bilateral renal cysts Unspecified congenital cystic kidney disease Malignant neoplasm of right breast in female, estrogen receptor positive, unspecified site of breast (HCC) Rheumatoid arthritis involving multiple sites, unspecified whether rheumatoid factor present (HCC) Edema, unspecified type Morbid obesity (HCC) Morbid obesity Chronic pain syndrome Type 2 diabetes mellitus with diabetic neuropathy, with long-term current use of insulin (HCC)- Primary Arthritis of both feet Venous insufficiency Unspecified venous (peripheral) insufficiency [facility] Hypertension goal BP (blood pressure) < 150/90- Primary Unspecified essential hypertension Need for vaccination Need for prophylactic vaccination and inoculation against unspecified single disease Hypercalcemia Hypertriglyceridemia Pure hyperglyceridemia Pure hypercholesterolemia 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) Type II or unspecified type diabetes mellitus with neurological manifestations, not stated as uncontrolled Sciatica of right side Sciatica Encounter for screening mammogram for breast cancer 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) Rheumatoid arthritis involving multiple sites, unspecified rheumatoid factor presence Morbid obesity due to excess calories (HCC) Pre-operative examination- Primary Preoperative examination, unspecified 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 Status post right hemicolectomy Other postprocedural status Chronic diastolic CHF (congestive heart failure) (HCC) Chronic diastolic heart failure Hypertension goal BP (blood pressure) < 150/90 Unspecified essential hypertension Pure hypercholesterolemia SHILPA on CPAP Obstructive sleep apnea (adult) (pediatric) Extrinsic asthma without complication, unspecified asthma severity, unspecified whether persistent COPD (chronic obstructive pulmonary disease) with chronic bronchitis (HCC) Obstructive chronic bronchitis without exacerbation Gastroesophageal reflux disease without esophagitis Esophageal reflux Iron malabsorption Other specified intestinal malabsorption Stage 3 chronic kidney disease, unspecified whether stage 3a or 3b CKD (HCC) Hypomagnesemia Disorders of magnesium metabolism Bilateral renal cysts Unspecified congenital cystic kidney disease Malignant neoplasm of right breast in female, estrogen receptor positive, unspecified site of breast (HCC) Rheumatoid arthritis involving multiple sites, unspecified whether rheumatoid factor present (HCC) Edema, unspecified type Morbid obesity (HCC) Morbid obesity Chronic pain syndrome Hypomagnesemia Disorders of magnesium metabolism [facility] Hypertension goal BP (blood pressure) < 150/90- Primary Unspecified essential hypertension Need for vaccination Need for prophylactic vaccination and inoculation against unspecified single disease Hypercalcemia Hypertriglyceridemia Pure hyperglyceridemia Pure hypercholesterolemia 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) Type II or unspecified type diabetes mellitus with neurological manifestations, not stated as uncontrolled Sciatica of right side Sciatica Encounter for screening mammogram for breast cancer 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) Rheumatoid arthritis involving multiple sites, unspecified rheumatoid factor presence Morbid obesity due to excess calories (HCC) Pre-operative examination- Primary Preoperative examination, unspecified 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 Status post right hemicolectomy Other postprocedural status Chronic diastolic CHF (congestive heart failure) (HCC) Chronic diastolic heart failure Hypertension goal BP (blood pressure) < 150/90 Unspecified essential hypertension Pure hypercholesterolemia SHILPA on CPAP Obstructive sleep apnea (adult) (pediatric) Extrinsic asthma without complication, unspecified asthma severity, unspecified whether persistent COPD (chronic obstructive pulmonary disease) with chronic bronchitis (HCC) Obstructive chronic bronchitis without exacerbation Gastroesophageal reflux disease without esophagitis Esophageal reflux Iron malabsorption Other specified intestinal malabsorption Stage 3 chronic kidney disease, unspecified whether stage 3a or 3b CKD (HCC) Hypomagnesemia Disorders of magnesium metabolism Bilateral renal cysts Unspecified congenital cystic kidney disease Malignant neoplasm of right breast in female, estrogen receptor positive, unspecified site of breast (HCC) Rheumatoid arthritis involving multiple sites, unspecified whether rheumatoid factor present (HCC) Edema, unspecified type Morbid obesity (HCC) Morbid obesity Chronic pain syndrome 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 [facility] Hypertension goal BP (blood pressure) < 150/90- Primary Unspecified essential hypertension Need for vaccination Need for prophylactic vaccination and inoculation against unspecified single disease Hypercalcemia Hypertriglyceridemia Pure hyperglyceridemia Pure hypercholesterolemia 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) Type II or unspecified type diabetes mellitus with neurological manifestations, not stated as uncontrolled Sciatica of right side Sciatica Encounter for screening mammogram for breast cancer 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) Rheumatoid arthritis involving multiple sites, unspecified rheumatoid factor presence Morbid obesity due to excess calories (HCC) Pre-operative examination- Primary Preoperative examination, unspecified 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 Status post right hemicolectomy Other postprocedural status Chronic diastolic CHF (congestive heart failure) (HCC) Chronic diastolic heart failure Hypertension goal BP (blood pressure) < 150/90 Unspecified essential hypertension Pure hypercholesterolemia SHILPA on CPAP Obstructive sleep apnea (adult) (pediatric) Extrinsic asthma without complication, unspecified asthma severity, unspecified whether persistent COPD (chronic obstructive pulmonary disease) with chronic bronchitis (HCC) Obstructive chronic bronchitis without exacerbation Gastroesophageal reflux disease without esophagitis Esophageal reflux Iron malabsorption Other specified intestinal malabsorption Stage 3 chronic kidney disease, unspecified whether stage 3a or 3b CKD (HCC) Hypomagnesemia Disorders of magnesium metabolism Bilateral renal cysts Unspecified congenital cystic kidney disease Malignant neoplasm of right breast in female, estrogen receptor positive, unspecified site of breast (HCC) Rheumatoid arthritis involving multiple sites, unspecified whether rheumatoid factor present (HCC) Edema, unspecified type Morbid obesity (HCC) Morbid obesity Chronic pain syndrome 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 Lung nodules Other nonspecific abnormal finding of lung field 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 [facility] Hypertension goal BP (blood pressure) < 150/90- Primary Unspecified essential hypertension Need for vaccination Need for prophylactic vaccination and inoculation against unspecified single disease Hypercalcemia Hypertriglyceridemia Pure hyperglyceridemia Pure hypercholesterolemia 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) Type II or unspecified type diabetes mellitus with neurological manifestations, not stated as uncontrolled Sciatica of right side Sciatica Encounter for screening mammogram for breast cancer 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) Rheumatoid arthritis involving multiple sites, unspecified rheumatoid factor presence Morbid obesity due to excess calories (HCC) Pre-operative examination- Primary Preoperative examination, unspecified 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 Status post right hemicolectomy Other postprocedural status Chronic diastolic CHF (congestive heart failure) (HCC) Chronic diastolic heart failure Hypertension goal BP (blood pressure) < 150/90 Unspecified essential hypertension Pure hypercholesterolemia SHILPA on CPAP Obstructive sleep apnea (adult) (pediatric) Extrinsic asthma without complication, unspecified asthma severity, unspecified whether persistent COPD (chronic obstructive pulmonary disease) with chronic bronchitis (HCC) Obstructive chronic bronchitis without exacerbation Gastroesophageal reflux disease without esophagitis Esophageal reflux Iron malabsorption Other specified intestinal malabsorption Stage 3 chronic kidney disease, unspecified whether stage 3a or 3b CKD (HCC) Hypomagnesemia Disorders of magnesium metabolism Bilateral renal cysts Unspecified congenital cystic kidney disease Malignant neoplasm of right breast in female, estrogen receptor positive, unspecified site of breast (HCC) Rheumatoid arthritis involving multiple sites, unspecified whether rheumatoid factor present (HCC) Edema, unspecified type Morbid obesity (HCC) Morbid obesity Chronic pain syndrome Gastroesophageal reflux disease, unspecified whether esophagitis present- Primary Nausea Nausea alone Change in bowel habits Other symptoms involving digestive system History of colon cancer Personal history of malignant neoplasm of large intestine [facility] Diagnosis Hypertension goal BP (blood pressure) < 150/90- Primary Unspecified essential hypertension Need for vaccination Need for prophylactic vaccination and inoculation against unspecified single disease Hypercalcemia Hypertriglyceridemia Pure hyperglyceridemia Pure hypercholesterolemia 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) Type II or unspecified type diabetes mellitus with neurological manifestations, not stated as uncontrolled Sciatica of right side Sciatica Encounter for screening mammogram for breast cancer 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) Rheumatoid arthritis involving multiple sites, unspecified rheumatoid factor presence Morbid obesity due to excess calories (HCC) Pre-operative examination- Primary Preoperative examination, unspecified 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 Status post right hemicolectomy Other postprocedural status Chronic diastolic CHF (congestive heart failure) (HCC) Chronic diastolic heart failure Hypertension goal BP (blood pressure) < 150/90 Unspecified essential hypertension Pure hypercholesterolemia SHILPA on CPAP Obstructive sleep apnea (adult) (pediatric) Extrinsic asthma without complication, unspecified asthma severity, unspecified whether persistent COPD (chronic obstructive pulmonary disease) with chronic bronchitis (HCC) Obstructive chronic bronchitis without exacerbation Gastroesophageal reflux disease without esophagitis Esophageal reflux Iron malabsorption Other specified intestinal malabsorption Stage 3 chronic kidney disease, unspecified whether stage 3a or 3b CKD (HCC) Hypomagnesemia Disorders of magnesium metabolism Bilateral renal cysts Unspecified congenital cystic kidney disease Malignant neoplasm of right breast in female, estrogen receptor positive, unspecified site of breast (HCC) Rheumatoid arthritis involving multiple sites, unspecified whether rheumatoid factor present (HCC) Edema, unspecified type Morbid obesity (HCC) Morbid obesity Chronic pain syndrome Abnormal mammogram Abnormal mammogram, unspecified [facility] Hypertension goal BP (blood pressure) < 150/90- Primary Unspecified essential hypertension Need for vaccination Need for prophylactic vaccination and inoculation against unspecified single disease Hypercalcemia Hypertriglyceridemia Pure hyperglyceridemia Pure hypercholesterolemia 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) Type II or unspecified type diabetes mellitus with neurological manifestations, not stated as uncontrolled Sciatica of right side Sciatica Encounter for screening mammogram for breast cancer 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) Rheumatoid arthritis involving multiple sites, unspecified rheumatoid factor presence Morbid obesity due to excess calories (HCC) Pre-operative examination- Primary Preoperative examination, unspecified 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 Status post right hemicolectomy Other postprocedural status Chronic diastolic CHF (congestive heart failure) (HCC) Chronic diastolic heart failure Hypertension goal BP (blood pressure) < 150/90 Unspecified essential hypertension Pure hypercholesterolemia SHILPA on CPAP Obstructive sleep apnea (adult) (pediatric) Extrinsic asthma without complication, unspecified asthma severity, unspecified whether persistent COPD (chronic obstructive pulmonary disease) with chronic bronchitis (HCC) Obstructive chronic bronchitis without exacerbation Gastroesophageal reflux disease without esophagitis Esophageal reflux Iron malabsorption Other specified intestinal malabsorption Stage 3 chronic kidney disease, unspecified whether stage 3a or 3b CKD (HCC) Hypomagnesemia Disorders of magnesium metabolism Bilateral renal cysts Unspecified congenital cystic kidney disease Malignant neoplasm of right breast in female, estrogen receptor positive, unspecified site of breast (HCC) Rheumatoid arthritis involving multiple sites, unspecified whether rheumatoid factor present (HCC) Edema, unspecified type Morbid obesity (HCC) Morbid obesity Chronic pain syndrome Chronic gastritis without bleeding, unspecified gastritis type- Primary [facility] Hypertension goal BP (blood pressure) < 150/90- Primary Unspecified essential hypertension Need for vaccination Need for prophylactic vaccination and inoculation against unspecified single disease Hypercalcemia Hypertriglyceridemia Pure hyperglyceridemia Pure hypercholesterolemia 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) Type II or unspecified type diabetes mellitus with neurological manifestations, not stated as uncontrolled Sciatica of right side Sciatica Encounter for screening mammogram for breast cancer 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) Rheumatoid arthritis involving multiple sites, unspecified rheumatoid factor presence Morbid obesity due to excess calories (HCC) Pre-operative examination- Primary Preoperative examination, unspecified 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 Status post right hemicolectomy Other postprocedural status Chronic diastolic CHF (congestive heart failure) (HCC) Chronic diastolic heart failure Hypertension goal BP (blood pressure) < 150/90 Unspecified essential hypertension Pure hypercholesterolemia SHILPA on CPAP Obstructive sleep apnea (adult) (pediatric) Extrinsic asthma without complication, unspecified asthma severity, unspecified whether persistent COPD (chronic obstructive pulmonary disease) with chronic bronchitis (HCC) Obstructive chronic bronchitis without exacerbation Gastroesophageal reflux disease without esophagitis Esophageal reflux Iron malabsorption Other specified intestinal malabsorption Stage 3 chronic kidney disease, unspecified whether stage 3a or 3b CKD (HCC) Hypomagnesemia Disorders of magnesium metabolism Bilateral renal cysts Unspecified congenital cystic kidney disease Malignant neoplasm of right breast in female, estrogen receptor positive, unspecified site of breast (HCC) Rheumatoid arthritis involving multiple sites, unspecified whether rheumatoid factor present (HCC) Edema, unspecified type Morbid obesity (HCC) Morbid obesity Chronic pain syndrome Elevated AST (SGOT)- Primary Nonspecific elevation of levels of transaminase or lactic acid dehydrogenase (LDH) 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) Type II or unspecified type diabetes mellitus with neurological manifestations, not stated as uncontrolled Hypertension goal BP (blood pressure) < 150/90 Unspecified essential hypertension Stage 3 chronic kidney disease, unspecified whether stage 3a or 3b CKD (HCC) Left arm numbness Disturbance of skin sensation [facility] Hypertension goal BP (blood pressure) < 150/90- Primary Unspecified essential hypertension Need for vaccination Need for prophylactic vaccination and inoculation against unspecified single disease Hypercalcemia Hypertriglyceridemia Pure hyperglyceridemia Pure hypercholesterolemia 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) Type II or unspecified type diabetes mellitus with neurological manifestations, not stated as uncontrolled Sciatica of right side Sciatica Encounter for screening mammogram for breast cancer 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) Rheumatoid arthritis involving multiple sites, unspecified rheumatoid factor presence Morbid obesity due to excess calories (HCC) Pre-operative examination- Primary Preoperative examination, unspecified 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 Status post right hemicolectomy Other postprocedural status Chronic diastolic CHF (congestive heart failure) (HCC) Chronic diastolic heart failure Hypertension goal BP (blood pressure) < 150/90 Unspecified essential hypertension Pure hypercholesterolemia SHILPA on CPAP Obstructive sleep apnea (adult) (pediatric) Extrinsic asthma without complication, unspecified asthma severity, unspecified whether persistent COPD (chronic obstructive pulmonary disease) with chronic bronchitis (HCC) Obstructive chronic bronchitis without exacerbation Gastroesophageal reflux disease without esophagitis Esophageal reflux Iron malabsorption Other specified intestinal malabsorption Stage 3 chronic kidney disease, unspecified whether stage 3a or 3b CKD (HCC) Hypomagnesemia Disorders of magnesium metabolism Bilateral renal cysts Unspecified congenital cystic kidney disease Malignant neoplasm of right breast in female, estrogen receptor positive, unspecified site of breast (HCC) Rheumatoid arthritis involving multiple sites, unspecified whether rheumatoid factor present (HCC) Edema, unspecified type Morbid obesity (HCC) Morbid obesity Chronic pain syndrome History of breast cancer- Primary Personal history of malignant neoplasm of breast 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 [facility] in [facility]* Diagnosis Hypertension goal BP (blood pressure) < 150/90- Primary Unspecified essential hypertension Need for vaccination Need for prophylactic vaccination and inoculation against unspecified single disease Hypercalcemia Hypertriglyceridemia Pure hyperglyceridemia Pure hypercholesterolemia 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) Type II or unspecified type diabetes mellitus with neurological manifestations, not stated as uncontrolled Sciatica of right side Sciatica Encounter for screening mammogram for breast cancer 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) Rheumatoid arthritis involving multiple sites, unspecified rheumatoid factor presence Morbid obesity due to excess calories (HCC) Pre-operative examination- Primary Preoperative examination, unspecified 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 Status post right hemicolectomy Other postprocedural status Chronic diastolic CHF (congestive heart failure) (HCC) Chronic diastolic heart failure Hypertension goal BP (blood pressure) < 150/90 Unspecified essential hypertension Pure hypercholesterolemia SHILPA on CPAP Obstructive sleep apnea (adult) (pediatric) Extrinsic asthma without complication, unspecified asthma severity, unspecified whether persistent COPD (chronic obstructive pulmonary disease) with chronic bronchitis (HCC) Obstructive chronic bronchitis without exacerbation Gastroesophageal reflux disease without esophagitis Esophageal reflux Iron malabsorption Other specified intestinal malabsorption Stage 3 chronic kidney disease, unspecified whether stage 3a or 3b CKD (HCC) Hypomagnesemia Disorders of magnesium metabolism Bilateral renal cysts Unspecified congenital cystic kidney disease Malignant neoplasm of right breast in female, estrogen receptor positive, unspecified site of breast (HCC) Rheumatoid arthritis involving multiple sites, unspecified whether rheumatoid factor present (HCC) Edema, unspecified type Morbid obesity (HCC) Morbid obesity Chronic pain syndrome Abnormal finding on radiology exam- Primary Other nonspecific (abnormal) findings on radiological and other examinations of body structure documented in this encounter [facility]* Diagnosis Hypertension goal BP (blood pressure) < 150/90- Primary Unspecified essential hypertension Need for vaccination Need for prophylactic vaccination and inoculation against unspecified single disease Hypercalcemia Hypertriglyceridemia Pure hyperglyceridemia Pure hypercholesterolemia 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) Type II or unspecified type diabetes mellitus with neurological manifestations, not stated as uncontrolled Sciatica of right side Sciatica Encounter for screening mammogram for breast cancer 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) Rheumatoid arthritis involving multiple sites, unspecified rheumatoid factor presence Morbid obesity due to excess calories (HCC) Pre-operative examination- Primary Preoperative examination, unspecified 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 Status post right hemicolectomy Other postprocedural status Chronic diastolic CHF (congestive heart failure) (HCC) Chronic diastolic heart failure Hypertension goal BP (blood pressure) < 150/90 Unspecified essential hypertension Pure hypercholesterolemia SHILPA on CPAP Obstructive sleep apnea (adult) (pediatric) Extrinsic asthma without complication, unspecified asthma severity, unspecified whether persistent COPD (chronic obstructive pulmonary disease) with chronic bronchitis (HCC) Obstructive chronic bronchitis without exacerbation Gastroesophageal reflux disease without esophagitis Esophageal reflux Iron malabsorption Other specified intestinal malabsorption Stage 3 chronic kidney disease, unspecified whether stage 3a or 3b CKD (HCC) Hypomagnesemia Disorders of magnesium metabolism Bilateral renal cysts Unspecified congenital cystic kidney disease Malignant neoplasm of right breast in female, estrogen receptor positive, unspecified site of breast (HCC) Rheumatoid arthritis involving multiple sites, unspecified whether rheumatoid factor present (HCC) Edema, unspecified type Morbid obesity (HCC) Morbid obesity Chronic pain syndrome COPD, mild (HCC)- Primary Chronic airway obstruction, not elsewhere classified Pulmonary nodules Other nonspecific abnormal finding of lung field Class 2 obesity [facility] Hypertension goal BP (blood pressure) < 150/90- Primary Unspecified essential hypertension Need for vaccination Need for prophylactic vaccination and inoculation against unspecified single disease Hypercalcemia Hypertriglyceridemia Pure hyperglyceridemia Pure hypercholesterolemia 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) Type II or unspecified type diabetes mellitus with neurological manifestations, not stated as uncontrolled Sciatica of right side Sciatica Encounter for screening mammogram for breast cancer 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) Rheumatoid arthritis involving multiple sites, unspecified rheumatoid factor presence Morbid obesity due to excess calories (HCC) Pre-operative examination- Primary Preoperative examination, unspecified 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 Status post right hemicolectomy Other postprocedural status Chronic diastolic CHF (congestive heart failure) (HCC) Chronic diastolic heart failure Hypertension goal BP (blood pressure) < 150/90 Unspecified essential hypertension Pure hypercholesterolemia SHILPA on CPAP Obstructive sleep apnea (adult) (pediatric) Extrinsic asthma without complication, unspecified asthma severity, unspecified whether persistent COPD (chronic obstructive pulmonary disease) with chronic bronchitis (HCC) Obstructive chronic bronchitis without exacerbation Gastroesophageal reflux disease without esophagitis Esophageal reflux Iron malabsorption Other specified intestinal malabsorption Stage 3 chronic kidney disease, unspecified whether stage 3a or 3b CKD (HCC) Hypomagnesemia Disorders of magnesium metabolism Bilateral renal cysts Unspecified congenital cystic kidney disease Malignant neoplasm of right breast in female, estrogen receptor positive, unspecified site of breast (HCC) Rheumatoid arthritis involving multiple sites, unspecified whether rheumatoid factor present (HCC) Edema, unspecified type Morbid obesity (HCC) Morbid obesity Chronic pain syndrome Type 2 diabetes mellitus with diabetic neuropathy, with long-term current use of insulin (HCC)- Primary Elevated liver enzymes Other nonspecific abnormal serum enzyme levels [facility] Hypertension goal BP (blood pressure) < 150/90- Primary Unspecified essential hypertension Need for vaccination Need for prophylactic vaccination and inoculation against unspecified single disease Hypercalcemia Hypertriglyceridemia Pure hyperglyceridemia Pure hypercholesterolemia 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) Type II or unspecified type diabetes mellitus with neurological manifestations, not stated as uncontrolled Sciatica of right side Sciatica Encounter for screening mammogram for breast cancer 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) Rheumatoid arthritis involving multiple sites, unspecified rheumatoid factor presence Morbid obesity due to excess calories (HCC) Pre-operative examination- Primary Preoperative examination, unspecified 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 Status post right hemicolectomy Other postprocedural status Chronic diastolic CHF (congestive heart failure) (HCC) Chronic diastolic heart failure Hypertension goal BP (blood pressure) < 150/90 Unspecified essential hypertension Pure hypercholesterolemia SHILPA on CPAP Obstructive sleep apnea (adult) (pediatric) Extrinsic asthma without complication, unspecified asthma severity, unspecified whether persistent COPD (chronic obstructive pulmonary disease) with chronic bronchitis (HCC) Obstructive chronic bronchitis without exacerbation Gastroesophageal reflux disease without esophagitis Esophageal reflux Iron malabsorption Other specified intestinal malabsorption Stage 3 chronic kidney disease, unspecified whether stage 3a or 3b CKD (HCC) Hypomagnesemia Disorders of magnesium metabolism Bilateral renal cysts Unspecified congenital cystic kidney disease Malignant neoplasm of right breast in female, estrogen receptor positive, unspecified site of breast (HCC) Rheumatoid arthritis involving multiple sites, unspecified whether rheumatoid factor present (HCC) Edema, unspecified type Morbid obesity (HCC) Morbid obesity Chronic pain syndrome C. difficile diarrhea- Primary Intestinal infection due to clostridium difficile Type 2 diabetes mellitus with stage 3b chronic kidney disease, with long-term current use of insulin (HCC) Hypertension goal BP (blood pressure) < 150/90 Unspecified essential hypertension Stage 3 chronic kidney disease, unspecified whether stage 3a or 3b CKD (HCC) Chronic diastolic CHF (congestive heart failure) (HCC) Chronic diastolic heart failure [facility] Hypertension goal BP (blood pressure) < 150/90- Primary Unspecified essential hypertension Need for vaccination Need for prophylactic vaccination and inoculation against unspecified single disease Hypercalcemia Hypertriglyceridemia Pure hyperglyceridemia Pure hypercholesterolemia 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) Type II or unspecified type diabetes mellitus with neurological manifestations, not stated as uncontrolled Sciatica of right side Sciatica Encounter for screening mammogram for breast cancer 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) Rheumatoid arthritis involving multiple sites, unspecified rheumatoid factor presence Morbid obesity due to excess calories (HCC) Pre-operative examination- Primary Preoperative examination, unspecified 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 Status post right hemicolectomy Other postprocedural status Chronic diastolic CHF (congestive heart failure) (HCC) Chronic diastolic heart failure Hypertension goal BP (blood pressure) < 150/90 Unspecified essential hypertension Pure hypercholesterolemia SHILPA on CPAP Obstructive sleep apnea (adult) (pediatric) Extrinsic asthma without complication, unspecified asthma severity, unspecified whether persistent COPD (chronic obstructive pulmonary disease) with chronic bronchitis (HCC) Obstructive chronic bronchitis without exacerbation Gastroesophageal reflux disease without esophagitis Esophageal reflux Iron malabsorption Other specified intestinal malabsorption Stage 3 chronic kidney disease, unspecified whether stage 3a or 3b CKD (HCC) Hypomagnesemia Disorders of magnesium metabolism Bilateral renal cysts Unspecified congenital cystic kidney disease Malignant neoplasm of right breast in female, estrogen receptor positive, unspecified site of breast (HCC) Rheumatoid arthritis involving multiple sites, unspecified whether rheumatoid factor present (HCC) Edema, unspecified type Morbid obesity (HCC) Morbid obesity Chronic pain syndrome Abnormal finding on radiology exam Other nonspecific (abnormal) findings on radiological and other examinations of body structure [facility] Hypertension goal BP (blood pressure) < 150/90- Primary Unspecified essential hypertension Need for vaccination Need for prophylactic vaccination and inoculation against unspecified single disease Hypercalcemia Hypertriglyceridemia Pure hyperglyceridemia Pure hypercholesterolemia 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) Type II or unspecified type diabetes mellitus with neurological manifestations, not stated as uncontrolled Sciatica of right side Sciatica Encounter for screening mammogram for breast cancer 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) Rheumatoid arthritis involving multiple sites, unspecified rheumatoid factor presence Morbid obesity due to excess calories (HCC) Pre-operative examination- Primary Preoperative examination, unspecified 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 Status post right hemicolectomy Other postprocedural status Chronic diastolic CHF (congestive heart failure) (HCC) Chronic diastolic heart failure Hypertension goal BP (blood pressure) < 150/90 Unspecified essential hypertension Pure hypercholesterolemia SHILPA on CPAP Obstructive sleep apnea (adult) (pediatric) Extrinsic asthma without complication, unspecified asthma severity, unspecified whether persistent COPD (chronic obstructive pulmonary disease) with chronic bronchitis (HCC) Obstructive chronic bronchitis without exacerbation Gastroesophageal reflux disease without esophagitis Esophageal reflux Iron malabsorption Other specified intestinal malabsorption Stage 3 chronic kidney disease, unspecified whether stage 3a or 3b CKD (HCC) Hypomagnesemia Disorders of magnesium metabolism Bilateral renal cysts Unspecified congenital cystic kidney disease Malignant neoplasm of right breast in female, estrogen receptor positive, unspecified site of breast (HCC) Rheumatoid arthritis involving multiple sites, unspecified whether rheumatoid factor present (HCC) Edema, unspecified type Morbid obesity (HCC) Morbid obesity Chronic pain syndrome 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 [facility] Hypertension goal BP (blood pressure) < 150/90- Primary Unspecified essential hypertension Need for vaccination Need for prophylactic vaccination and inoculation against unspecified single disease Hypercalcemia Hypertriglyceridemia Pure hyperglyceridemia Pure hypercholesterolemia 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) Type II or unspecified type diabetes mellitus with neurological manifestations, not stated as uncontrolled Sciatica of right side Sciatica Encounter for screening mammogram for breast cancer 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) Rheumatoid arthritis involving multiple sites, unspecified rheumatoid factor presence Morbid obesity due to excess calories (HCC) Pre-operative examination- Primary Preoperative examination, unspecified 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 Status post right hemicolectomy Other postprocedural status Chronic diastolic CHF (congestive heart failure) (HCC) Chronic diastolic heart failure Hypertension goal BP (blood pressure) < 150/90 Unspecified essential hypertension Pure hypercholesterolemia SHILPA on CPAP Obstructive sleep apnea (adult) (pediatric) Extrinsic asthma without complication, unspecified asthma severity, unspecified whether persistent COPD (chronic obstructive pulmonary disease) with chronic bronchitis (HCC) Obstructive chronic bronchitis without exacerbation Gastroesophageal reflux disease without esophagitis Esophageal reflux Iron malabsorption Other specified intestinal malabsorption Stage 3 chronic kidney disease, unspecified whether stage 3a or 3b CKD (HCC) Hypomagnesemia Disorders of magnesium metabolism Bilateral renal cysts Unspecified congenital cystic kidney disease Malignant neoplasm of right breast in female, estrogen receptor positive, unspecified site of breast (HCC) Rheumatoid arthritis involving multiple sites, unspecified whether rheumatoid factor present (HCC) Edema, unspecified type Morbid obesity (HCC) Morbid obesity Chronic pain syndrome 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 [facility] Hypertension goal BP (blood pressure) < 150/90- Primary Unspecified essential hypertension Need for vaccination Need for prophylactic vaccination and inoculation against unspecified single disease Hypercalcemia Hypertriglyceridemia Pure hyperglyceridemia Pure hypercholesterolemia 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) Type II or unspecified type diabetes mellitus with neurological manifestations, not stated as uncontrolled Sciatica of right side Sciatica Encounter for screening mammogram for breast cancer 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) Rheumatoid arthritis involving multiple sites, unspecified rheumatoid factor presence Morbid obesity due to excess calories (HCC) Pre-operative examination- Primary Preoperative examination, unspecified 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 Status post right hemicolectomy Other postprocedural status Chronic diastolic CHF (congestive heart failure) (HCC) Chronic diastolic heart failure Hypertension goal BP (blood pressure) < 150/90 Unspecified essential hypertension Pure hypercholesterolemia SHILPA on CPAP Obstructive sleep apnea (adult) (pediatric) Extrinsic asthma without complication, unspecified asthma severity, unspecified whether persistent COPD (chronic obstructive pulmonary disease) with chronic bronchitis (HCC) Obstructive chronic bronchitis without exacerbation Gastroesophageal reflux disease without esophagitis Esophageal reflux Iron malabsorption Other specified intestinal malabsorption Stage 3 chronic kidney disease, unspecified whether stage 3a or 3b CKD (HCC) Hypomagnesemia Disorders of magnesium metabolism Bilateral renal cysts Unspecified congenital cystic kidney disease Malignant neoplasm of right breast in female, estrogen receptor positive, unspecified site of breast (HCC) Rheumatoid arthritis involving multiple sites, unspecified whether rheumatoid factor present (HCC) Edema, unspecified type Morbid obesity (HCC) Morbid obesity Chronic pain syndrome History of breast cancer in female- Primary Personal history of malignant neoplasm of breast Breast screening Breast screening, unspecified [facility] Diagnosis Hypertension goal BP (blood pressure) < 150/90- Primary Unspecified essential hypertension Need for vaccination Need for prophylactic vaccination and inoculation against unspecified single disease Hypercalcemia Hypertriglyceridemia Pure hyperglyceridemia Pure hypercholesterolemia 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) Type II or unspecified type diabetes mellitus with neurological manifestations, not stated as uncontrolled Sciatica of right side Sciatica Encounter for screening mammogram for breast cancer 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) Rheumatoid arthritis involving multiple sites, unspecified rheumatoid factor presence Morbid obesity due to excess calories (HCC) Pre-operative examination- Primary Preoperative examination, unspecified 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 Status post right hemicolectomy Other postprocedural status Chronic diastolic CHF (congestive heart failure) (HCC) Chronic diastolic heart failure Hypertension goal BP (blood pressure) < 150/90 Unspecified essential hypertension Pure hypercholesterolemia SHILPA on CPAP Obstructive sleep apnea (adult) (pediatric) Extrinsic asthma without complication, unspecified asthma severity, unspecified whether persistent (HCC) COPD (chronic obstructive pulmonary disease) with chronic bronchitis (HCC) Obstructive chronic bronchitis without exacerbation Gastroesophageal reflux disease without esophagitis Esophageal reflux Iron malabsorption (HCC) Other specified intestinal malabsorption Stage 3 chronic kidney disease, unspecified whether stage 3a or 3b CKD (HCC) Hypomagnesemia Disorders of magnesium metabolism Bilateral renal cysts Unspecified congenital cystic kidney disease Malignant neoplasm of right breast in female, estrogen receptor positive, unspecified site of breast (HCC) Rheumatoid arthritis involving multiple sites, unspecified whether rheumatoid factor present (HCC) Edema, unspecified type Morbid obesity (HCC) Morbid obesity Chronic pain syndrome Primary hypertension- Primary Unspecified essential hypertension Chronic diastolic CHF (congestive heart failure) (HCC) Chronic diastolic heart failure Type 2 diabetes mellitus with diabetic neuropathy, with long-term current use of insulin (HCC) Rheumatoid arthritis involving multiple sites, unspecified whether rheumatoid factor present (HCC) documented in this encounter [facility] note* Diagnosis Hypertension goal BP (blood pressure) < 150/90- Primary Unspecified essential hypertension Need for vaccination Need for prophylactic vaccination and inoculation against unspecified single disease Hypercalcemia Hypertriglyceridemia Pure hyperglyceridemia Pure hypercholesterolemia 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) Type II or unspecified type diabetes mellitus with neurological manifestations, not stated as uncontrolled Sciatica of right side Sciatica Encounter for screening mammogram for breast cancer 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) Rheumatoid arthritis involving multiple sites, unspecified rheumatoid factor presence Morbid obesity due to excess calories (HCC) Pre-operative examination- Primary Preoperative examination, unspecified 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 Status post right hemicolectomy Other postprocedural status Chronic diastolic CHF (congestive heart failure) (HCC) Chronic diastolic heart failure Hypertension goal BP (blood pressure) < 150/90 Unspecified essential hypertension Pure hypercholesterolemia SHILPA on CPAP Obstructive sleep apnea (adult) (pediatric) Extrinsic asthma without complication, unspecified asthma severity, unspecified whether persistent (HCC) COPD (chronic obstructive pulmonary disease) with chronic bronchitis (HCC) Obstructive chronic bronchitis without exacerbation Gastroesophageal reflux disease without esophagitis Esophageal reflux Iron malabsorption (HCC) Other specified intestinal malabsorption Stage 3 chronic kidney disease, unspecified whether stage 3a or 3b CKD (HCC) Hypomagnesemia Disorders of magnesium metabolism Bilateral renal cysts Unspecified congenital cystic kidney disease Malignant neoplasm of right breast in female, estrogen receptor positive, unspecified site of breast (HCC) Rheumatoid arthritis involving multiple sites, unspecified whether rheumatoid factor present (HCC) Edema, unspecified type Morbid obesity (HCC) Morbid obesity Chronic pain syndrome 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 Type 2 diabetes mellitus with diabetic neuropathy, with long-term current use of insulin (HCC) [facility] Diagnosis Hypertension goal BP (blood pressure) < 150/90- Primary Unspecified essential hypertension Need for vaccination Need for prophylactic vaccination and inoculation against unspecified single disease Hypercalcemia Hypertriglyceridemia Pure hyperglyceridemia Pure hypercholesterolemia 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) Type II or unspecified type diabetes mellitus with neurological manifestations, not stated as uncontrolled Sciatica of right side Sciatica Encounter for screening mammogram for breast cancer 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) Rheumatoid arthritis involving multiple sites, unspecified rheumatoid factor presence Morbid obesity due to excess calories (HCC) Pre-operative examination- Primary Preoperative examination, unspecified 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 Status post right hemicolectomy Other postprocedural status Chronic diastolic CHF (congestive heart failure) (HCC) Chronic diastolic heart failure Hypertension goal BP (blood pressure) < 150/90 Unspecified essential hypertension Pure hypercholesterolemia SHILPA on CPAP Obstructive sleep apnea (adult) (pediatric) Extrinsic asthma without complication, unspecified asthma severity, unspecified whether persistent (HCC) COPD (chronic obstructive pulmonary disease) with chronic bronchitis (HCC) Obstructive chronic bronchitis without exacerbation Gastroesophageal reflux disease without esophagitis Esophageal reflux Iron malabsorption (HCC) Other specified intestinal malabsorption Stage 3 chronic kidney disease, unspecified whether stage 3a or 3b CKD (HCC) Hypomagnesemia Disorders of magnesium metabolism Bilateral renal cysts Unspecified congenital cystic kidney disease Malignant neoplasm of right breast in female, estrogen receptor positive, unspecified site of breast (HCC) Rheumatoid arthritis involving multiple sites, unspecified whether rheumatoid factor present (HCC) Edema, unspecified type Morbid obesity (HCC) Morbid obesity Chronic pain syndrome 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 [facility] Diagnosis Hypertension goal BP (blood pressure) < 150/90- Primary Unspecified essential hypertension Need for vaccination Need for prophylactic vaccination and inoculation against unspecified single disease Hypercalcemia Hypertriglyceridemia Pure hyperglyceridemia Pure hypercholesterolemia 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) Type II or unspecified type diabetes mellitus with neurological manifestations, not stated as uncontrolled Sciatica of right side Sciatica Encounter for screening mammogram for breast cancer 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) Rheumatoid arthritis involving multiple sites, unspecified rheumatoid factor presence Morbid obesity due to excess calories (HCC) Pre-operative examination- Primary Preoperative examination, unspecified 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 Status post right hemicolectomy Other postprocedural status Chronic diastolic CHF (congestive heart failure) (HCC) Chronic diastolic heart failure Hypertension goal BP (blood pressure) < 150/90 Unspecified essential hypertension Pure hypercholesterolemia SHILPA on CPAP Obstructive sleep apnea (adult) (pediatric) Extrinsic asthma without complication, unspecified asthma severity, unspecified whether persistent (HCC) COPD (chronic obstructive pulmonary disease) with chronic bronchitis (HCC) Obstructive chronic bronchitis without exacerbation Gastroesophageal reflux disease without esophagitis Esophageal reflux Iron malabsorption (HCC) Other specified intestinal malabsorption Stage 3 chronic kidney disease, unspecified whether stage 3a or 3b CKD (HCC) Hypomagnesemia Disorders of magnesium metabolism Bilateral renal cysts Unspecified congenital cystic kidney disease Malignant neoplasm of right breast in female, estrogen receptor positive, unspecified site of breast (HCC) Rheumatoid arthritis involving multiple sites, unspecified whether rheumatoid factor present (HCC) Edema, unspecified type Morbid obesity (HCC) Morbid obesity Chronic pain syndrome COPD, mild (HCC)- Primary Chronic airway obstruction, not elsewhere classified Class 2 obesity Lung nodule Solitary pulmonary nodule [facility] Diagnosis Hypertension goal BP (blood pressure) < 150/90- Primary Unspecified essential hypertension Need for vaccination Need for prophylactic vaccination and inoculation against unspecified single disease Hypercalcemia Hypertriglyceridemia Pure hyperglyceridemia Pure hypercholesterolemia 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) Type II or unspecified type diabetes mellitus with neurological manifestations, not stated as uncontrolled Sciatica of right side Sciatica Encounter for screening mammogram for breast cancer 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) Rheumatoid arthritis involving multiple sites, unspecified rheumatoid factor presence Morbid obesity due to excess calories (HCC) Pre-operative examination- Primary Preoperative examination, unspecified 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 Status post right hemicolectomy Other postprocedural status Chronic diastolic CHF (congestive heart failure) (HCC) Chronic diastolic heart failure Hypertension goal BP (blood pressure) < 150/90 Unspecified essential hypertension Pure hypercholesterolemia SHILPA on CPAP Obstructive sleep apnea (adult) (pediatric) Extrinsic asthma without complication, unspecified asthma severity, unspecified whether persistent (HCC) COPD (chronic obstructive pulmonary disease) with chronic bronchitis (HCC) Obstructive chronic bronchitis without exacerbation Gastroesophageal reflux disease without esophagitis Esophageal reflux Iron malabsorption (HCC) Other specified intestinal malabsorption Stage 3 chronic kidney disease, unspecified whether stage 3a or 3b CKD (HCC) Hypomagnesemia Disorders of magnesium metabolism Bilateral renal cysts Unspecified congenital cystic kidney disease Malignant neoplasm of right breast in female, estrogen receptor positive, unspecified site of breast (HCC) Rheumatoid arthritis involving multiple sites, unspecified whether rheumatoid factor present (HCC) Edema, unspecified type Morbid obesity (HCC) Morbid obesity Chronic pain syndrome 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 [facility] Diagnosis Hypertension goal BP (blood pressure) < 150/90- Primary Unspecified essential hypertension Need for vaccination Need for prophylactic vaccination and inoculation against unspecified single disease Hypercalcemia Hypertriglyceridemia Pure hyperglyceridemia Pure hypercholesterolemia 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) Type II or unspecified type diabetes mellitus with neurological manifestations, not stated as uncontrolled Sciatica of right side Sciatica Encounter for screening mammogram for breast cancer 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) Rheumatoid arthritis involving multiple sites, unspecified rheumatoid factor presence Morbid obesity due to excess calories (HCC) Pre-operative examination- Primary Preoperative examination, unspecified 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 Status post right hemicolectomy Other postprocedural status Chronic diastolic CHF (congestive heart failure) (HCC) Chronic diastolic heart failure Hypertension goal BP (blood pressure) < 150/90 Unspecified essential hypertension Pure hypercholesterolemia SHILPA on CPAP Obstructive sleep apnea (adult) (pediatric) Extrinsic asthma without complication, unspecified asthma severity, unspecified whether persistent (HCC) COPD (chronic obstructive pulmonary disease) with chronic bronchitis (HCC) Obstructive chronic bronchitis without exacerbation Gastroesophageal reflux disease without esophagitis Esophageal reflux Iron malabsorption (HCC) Other specified intestinal malabsorption Stage 3 chronic kidney disease, unspecified whether stage 3a or 3b CKD (HCC) Hypomagnesemia Disorders of magnesium metabolism Bilateral renal cysts Unspecified congenital cystic kidney disease Malignant neoplasm of right breast in female, estrogen receptor positive, unspecified site of breast (HCC) Rheumatoid arthritis involving multiple sites, unspecified whether rheumatoid factor present (HCC) Edema, unspecified type Morbid obesity (HCC) Morbid obesity Chronic pain syndrome Encounter for follow-up surveillance of colon cancer- Primary Unspecified follow-up examination 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 difficile toxin on PCR. Because of the positive C. difficile do not take Imodium. You may take Pepto-Bismol. Try to drink fluids to keep yourself hydrated. Take the entire course of antibiotics.[facility] Work Phone: Reason for referral (narrative)* Diagnostic Procedure Only (Routine) - Authorized Specialty Diagnoses / Procedures Referred By Dion garay Referred To Contact [facility] Diagnoses Visit for screening mammogram Procedures TRENT SCREENING SCREENING MAMMOGRAPHY BI 2-VIEW BREAST INC Yasemin Shaikh MD [address] [place] [address] [facility] [address] [place] [phone] Referral ID Status Reason Start Date Expiration Date Visits Requested Visits Authorized [id number] Authorized Auto-Generat ed Referral 05/27/2021 06/26/2022 1 1 T [facility] for referral (narrative)* Outpatient Procedure (Routine) - Authorized Specialty Diagnoses / Procedures Referred By Dion garay Referred To Contact [facility] Diagnoses LUQ abdominal pain Procedures EGD DIAGNOSTIC ESOPHAGOGASTRODUODENOSC OPY TRANSORAL DIAGNOSTIC Mahin Pérez MD [address] [place] [address] [facility] [place] [address] [place] [address] Referral ID Status Reason Start Date Expiration Date Visits Requested Visits Authorized [id number] Authorized Auto-Generat ed Referral 06/20/2021 06/20/2022 1 1 T [facility] for referral (narrative)* Outpatient Procedure (Routine) - Closed Specialty Diagnoses / Procedures Referred By Dion garay Referred To Contact [facility] Diagnoses LUQ abdominal pain Procedures EGD DIAGNOSTIC ESOPHAGOGASTRODUODENOSC OPY TRANSORAL DIAGNOSTIC Mahin Pérez MD [address] [place] [address] [address] Referral ID Status Reason Start Date Expiration Date V isits Requested Visits Authorized [id number] Closed Auto-Generate d Referral 06/20/2021 06/20/2022 1 1 * Outpatient Procedure (Routine) - Closed Specialty Diagnoses / Procedures Referred By Dion garay Referred To Contact [facility] Diagnoses Personal history of colon cancer Procedures COLONOSCOPY SCREENING COLONOSCOPY FLX DX W/COLLJ SPEC WHEN PFRMD Mahin Pérez MD [address] [place] [address] [facility] Disease [address] [address] Referral ID Status Reason Start Date Expiration Date V isits Requested Visits Authorized [id number] Closed Auto-Generate d Referral 04/06/2021 04/06/2022 1 1 [facility] for referral (narrative)* Outpatient Procedure (Routine) - Authorized Specialty Diagnoses / Procedures Referred By Dion garay Referred To Contact [facility] Diagnoses COPD (chronic obstructive pulmonary disease) with chronic bronchitis (HCC) Procedures LUNG DIFFUSION CAPACITY (DLCO) DIFFUSING CAPACITY Vi Smart PA-C [address] [place] [address] [address] Referral ID Status Reason Start Date Expiration Date Visits Requested Visits Authorized [id number] Authorized Auto-Generat ed Referral 10/13/2021 11/12/2022 1 1 * Outpatient Procedure (Routine) - Authorized Specialty Diagnoses / Procedures Referred By Contac t Referred To Contact [facility] Diagnoses COPD (chronic obstructive pulmonary disease) with chronic bronchitis (HCC) Procedures SPIROMETRY BASELINE ONLY SPMTRY W/VC EXPIRATORY ROQUE W/WO MXML VOL VNTJ Vi Smart PA-C [address] [place] [address] [facility] [place] [address] [place] [address] Referral ID Status Reason Start Date Expiration Date Visits Requested Visits Authorized [id number] Authorized Auto-Generat ed Referral 10/13/2021 11/12/2022 1 1 [facility] for referral (narrative)* Diagnostic Procedure Only (Routine) - Authorized Specialty Diagnoses / Procedures Referred By Contac t Referred To Contact [facility] Diagnoses Vaginal discharge PMB (postmenopausal bleeding) Procedures US FEMALE PELVIS TRANSVAG US TRANSVAGINAL Danuta Orantes APRN.CNP [address] [place] [address] [place] [address] Referral ID Status Reason Start Date Expiration Date Visits Requested Visits Authorized [id number] Authorized Auto-Generat ed Referral 12/14/2022 01/13/2024 1 1 * Diagnostic Procedure Only (Routine) - Pending Review Specialty Diagnoses / Procedures Referred By Contac t Referred To Contact [facility] Diagnoses Vaginal discharge PMB (postmenopausal bleeding) Procedures PELVIC US WHI US PELVIC NONOBSTETRIC REAL-TIME IMAGE COMPLETE Danuta Orantes APRN.CNP [address] [place] [address] [facility] [address] [place] [id number] Referral ID Status Reason Start Date Expiration Date Visits Requested Visits Authorized [id number] Pending Review Auto-Generat ed Referral 12/14/2022 12/14/2023 1 1 * Outpatient Procedure (Routine) - Pending Review Specialty Diagnoses / Procedures Referred By Contac t Referred To Contact [facility] Diagnoses Vaginal discharge PMB (postmenopausal bleeding) Procedures ENDOMETRIAL BIOPSY ENDOMETRIAL BX W/WO ENDOCERVIX BX W/O DILAT SPX Danuta Orantes APRN.CNP [address] [place] [address] [place] [id number] Referral ID Status Reason Start Date Expiration Date Visits Requested Visits Authorized [id number] Pending Review Auto-Generat ed Referral 12/14/2022 12/14/2023 1 1 [facility] for referral (narrative)* Diagnostic Procedure Only (Routine) - Authorized Specialty Diagnoses / Procedures Referred By Contac t Referred To Contact [facility] Diagnoses Fluid in endometrial cavity PMB (postmenopausal bleeding) Procedures PELVIC US I US PELVIC NONOBSTETRIC REAL-TIME IMAGE COMPLETE Danuta Orantes APRN.ADMINISTRATIVE PROCESSOR [address] [place] [address] [address] Referral ID Status Reason Start Date Expiration Date Visits Requested Visits Authorized [id number] Authorized Auto-Generat ed Referral 3 12/19/2023 1 1 [facility] for referral (narrative)* Diagnostic Procedure Only (Routine) - Authorized Specialty Diagnoses / Procedures Referred By Contac t Referred To Contact [facility] Diagnoses Encounter for screening mammogram for malignant neoplasm of breast Mammographic heterogeneous density, bilateral breasts Procedures TRENT SCREENING W FLY SCREENING DIGITAL BREAST TOMOSYNTHESIS BI SCREENING MAMMOGRAPHY BI 2-VIEW BREAST INC CAD Danuta Orantes APRN.CNP [address] [place] [address] [facility] [address] [place] [phone] Referral ID Status Reason Start Date Expiration Date Visits Requested Visits Authorized [id number] Authorized Auto-Generat ed Referral 05/22/2023 06/19/2024 1 1 [facility] for referral (narrative)* Diagnostic Procedure Only (Routine) - Closed Specialty Diagnoses / Procedures Referred By Contac t Referred To Contact [facility] Diagnoses Encounter for screening mammogram for malignant neoplasm of breast Mammographic heterogeneous density, bilateral breasts Procedures TRENT SCREENING W FLY SCREENING DIGITAL BREAST TOMOSYNTHESIS BI SCREENING MAMMOGRAPHY BI 2-VIEW BREAST INC Danuta Torres APRN.ADMINISTRATIVE PROCESSOR [address] [place] [address] [place] [phone] Referral ID Status Reason Start Date Expiration Date V isits Requested Visits Authorized [id number] Closed Auto-Generate d Referral 05/22/2023 06/19/2024 1 1 [facility] for referral (narrative)* Outpatient Procedure (Routine) - Authorized Specialty Diagnoses / Procedures [facility] To [facility] Diagnoses Change in bowel habits History of colon cancer Procedures COLONOSCOPY DIAGNOSTIC COLONOSCOPY FLX DX W/COLLJ SPEC WHEN Dayan Collins APRN.ADMINISTRATIVE PROCESSOR [address] [place] [address] [facility] [place] [address] [place] [address] Referral ID Status Reason Start Date Expiration Date Visits Requested Visits Authorized [id number] Authorized Auto-Generat ed Referral 11/28/2024 1 1 * Outpatient Procedure (Routine) - Authorized Specialty Diagnoses / Procedures Referred By Contac t Referred To Contact [facility] Diagnoses Nausea Procedures EGD DIAGNOSTIC ESOPHAGOGASTRODUODENOSC OPY TRANSORAL DIAGNOSTIC Marek, Dayan, CASH ANALYST.ADMINISTRATIVE PROCESSOR [address] [place] [address] [facility] Disease [address] [address] Referral ID Status Reason Start Date Expiration Date Visits Requested Visits Authorized [id number] Authorized Auto-Generat ed Referral 11/28/2024 1 1 [facility] for referral (narrative)* Outpatient Procedure (Routine) - Closed Specialty Diagnoses / Procedures Referred By Dion t Referred To Contact [facility] Diagnoses Change in bowel habits History of colon cancer Procedures COLONOSCOPY DIAGNOSTIC COLONOSCOPY FLX DX W/COLLJ SPEC WHEN Dayan Collins APRN.ADMINISTRATIVE PROCESSOR [address] [place] [address] [facility] [address] [address] Referral ID Status Reason Start Date Expiration Date V isits Requested Visits Authorized [id number] Closed Auto-Generate d Referral 11/29/2023 11/28/2024 1 1 * Outpatient Procedure (Routine) - Closed Specialty Diagnoses / Procedures Referred By Dion garay Referred To Contact [facility] Diagnoses Nausea Procedures EGD DIAGNOSTIC ESOPHAGOGASTRODUODENOSC OPY TRANSORAL DIAGNOSTIC Dayan Silverman APRN.ADMINISTRATIVE PROCESSOR [address] [place] [address] [facility] Disease [address] [address] Referral ID Status Reason Start Date Expiration Date V isits Requested Visits Authorized [id number] Closed Auto-Generate d Referral 11/29/2023 11/28/2024 1 1 [facility] for referral (narrative)* Diagnostic Procedure Only (Routine) - New Request Specialty Diagnoses / Procedures Referred By Contac t Referred To Contact [facility] Diagnoses History of breast cancer Metastases to the liver (HCC) Cancer of transverse colon (HCC) Procedures TRENT STEREO BX BREAST RIGHT BX BREAST W/DEVICE [facility]ST [facility] Maihn Kan MD [address] [place] [address] [facility] [address] [place] [phone] Referral ID Status Reason Start Date Expiration Date Visits Requested Visits Authorized [id number] New Request Auto-Generat ed Referral 4 02/21/2025 1 1 [facility] for referral (narrative)* Diagnostic Procedure Only (Routine) - New Request Specialty Diagnoses / Procedures Referred By Dion garay Referred To Contact [facility] Diagnoses Abnormal finding on radiology exam Procedures TRENT STEREO BX BREAST RIGHT BX BREAST W/DEVICE [facility]ST [facility] Maureen Chiang MD [address] [place] [address] [facility] [address] [place] [address] Referral ID Status Reason Start Date Expiration Date Visits Requested Visits Authorized [id number] New Request Auto-Generat ed Referral 4 02/27/2025 1 1 [facility] for referral (narrative)No reason for referral [facility]: Reason for visit Narrative* Diagnostic Procedure Only (Routine) - Closed Specialty Diagnoses / Procedures Referred By Dion garay Referred To Contact [facility] Diagnoses Visit for screening mammogram Procedures TRENT SCREENING SCREENING MAMMOGRAPHY BI 2-VIEW BREAST INC Yasemin Shaikh MD [address] [place] [address] [facility] Imaging [address] [place] [address] Referral ID Status Reason Start Date Expiration Date V isits Requested Visits Authorized [id number] Closed Auto-Generate d Referral 05/27/2021 06/26/2022 1 1 [facility] for visit Narrative* Outpatient Procedure (Routine) - Closed Specialty Diagnoses / Procedures Referred By Dion garay Referred To Contact [facility] Diagnoses LUQ abdominal pain Procedures EGD DIAGNOSTIC ESOPHAGOGASTRODUODENOSC OPY TRANSORAL DIAGNOSTIC Mahin Pérez MD [address] [place] [address] [facility] [address] [place] [address] Referral ID Status Reason Start Date Expiration Date V isits Requested Visits Authorized [id number] Closed Auto-Generate d Referral 06/20/2021 06/20/2022 1 1 [facility] for visit Narrative* Diagnostic Procedure Only (Routine) - Closed Specialty Diagnoses / Procedures Referred By Dion garay Referred To Contact [facility] Diagnoses Encounter for screening mammogram for malignant neoplasm of breast Mammographic heterogeneous density, bilateral breasts Procedures TRENT SCREENING W FLY SCREENING DIGITAL BREAST TOMOSYNTHESIS BI SCREENING MAMMOGRAPHY BI 2-VIEW BREAST INC Danuta Torres, CASH ANALYST.ADMINISTRATIVE PROCESSOR [address] [place] [address] [facility] [address] [place] [phone] Referral ID Status Reason Start Date Expiration Date V isits Requested Visits Authorized [id number] Closed Auto-Generate d Referral 05/22/2023 06/19/2024 1 1 [facility] for visit Narrative* Diagnostic Procedure Only (Routine) - Closed Specialty Diagnoses / Procedures Referred By Dion garay Referred To Contact [facility] Diagnoses Abnormal mammogram Procedures TRENT DIAGNOSTIC RIGHT DIAGNOSTIC MAMMOGRAPHY COMPUTER-AIDED DETCJ UNI Danuta Orantes, CASH ANALYST.ADMINISTRATIVE PROCESSOR [address] [place] [address] [facility] [address] [place] [phone] Referral ID Status Reason Start Date Expiration Date V isits Requested Visits Authorized [id number] Closed Auto-Generate d Referral 06/13/2023 07/12/2024 1 1 [facility] for visit Narrative* Outpatient Procedure (Routine) - Closed Specialty Diagnoses / Procedures Referred By Dion garay Referred To Contact [facility] Diagnoses Change in bowel habits History of colon cancer Procedures COLONOSCOPY DIAGNOSTIC COLONOSCOPY FLX DX W/COLLJ SPEC WHEN PFDayan Azul, CASH ANALYST.ADMINISTRATIVE PROCESSOR [address] [place] [address] [facility] [address] [place] [address] Referral ID Status Reason Start Date Expiration Date V isits Requested Visits Authorized [id number] Closed Auto-Generate d Referral 11/29/2023 11/28/2024 1 1 [facility] for visit Narrative* Diagnostic Procedure Only (Routine) - Closed Specialty Diagnoses / Procedures Referred By Contac t Referred To Contact [facility] Diagnoses Abnormal mammogram Procedures TRENT DIAGNOSTIC RIGHT DIAGNOSTIC MAMMOGRAPHY COMPUTER-AIDED DETCJ Danuta Seals CASH ANALYST.ADMINISTRATIVE PROCESSOR [address] [place] [address] [facility] [address] [place] [phone] Referral ID Status Reason Start Date Expiration Date V isits Requested Visits Authorized [id number] Closed Auto-Generate d Referral 01/11/2024 08/10/2024 1 1 [facility] for visit Narrative* Diagnostic Procedure Only (Routine) - Closed Specialty Diagnoses / Procedures Referred By Contac t Referred To Contact [facility] Diagnoses Abnormal finding on radiology exam Procedures TRENT STEREO BX BREAST RIGHT BX BREAST W/DEVICE [facility]ST [facility] Maureen Chiang MD [address] [place] [address] Phone: tel: fax: [facility] [address] [place] [phone] Referral ID Status Reason Start Date Expiration Date V isits Requested Visits Authorized [id number] Closed Auto-Generate d Referral 01/29/2024 02/27/2025 1 1 [facility] for visit Narrative* MRI/CT (Routine) - Closed Specialty Diagnoses / Procedures Referred By Contac t Referred To Contact CT IMAGING Diagnoses Cancer of transverse colon (HCC) Metastases to the liver (HCC) Procedures CT CHEST W IVCON DIAGNOSTIC COMPUTED TOMOGRAPHY THORAX W/CONTRAST Geneva Ramos, CASH ANALYST.ADMINISTRATIVE PROCESSOR [address] [place] [address] Phone: tel: fax: [place] [address] Referral ID Status Reason Start Date Expiration Date V isits Requested Visits Authorized [id number] Closed Auto-Generate d Referral 07/09/2024 05/08/2025 1 1 [facility] Summary Purpose Family History No Family History Records Found Relationship Condition Age at Onset Recorded Date/T marlon father Cardiac disease Unknown Myocardial infarction Unknown mother Malignant neoplasm Unknown brother Malignant neoplasm Unknown sister Lupus erythematosus Unknown Advance Directives No Advanced Directives Records FoundDocuments on File Type Date Recorded Patient Social Insurance Administrator Expl anation Advance Directive(s) 04/20/2020 3:12 PM Date Activated Date Inactivated Comments 04/08/2022 1:09 AM 04/09/2022 7:22 PM Question Answer Comments Full Code Order Discussed With: Patient Latest Code Status on File Code Status Date Activated Date Inactivated Comments Full Code 04/08/2022 1:09 AM 04/09/2022 7:22 PM Full Code Order Discussed With: Patient Documents on File Type Date Recorded Patient Social Insurance Administrator Expl anation Advance Directive(s) 04/20/2020 3:12 PM Advance Directive(s) 04/05/2020 10:23 AM Advance Directive(s) 02/20/2020 1:58 PM Advance Directive(s) 01/22/2020 11:44 AM Advance Directive(s) 12/02/2015 2:01 PM Advance Directive(s) 12/01/2015 9:30 AM Documents on File Type Date Recorded Patient Social Insurance Administrator Expl anation Advance Directive(s) 04/20/2020 3:12 PM Advance Directive(s) 04/05/2020 10:23 AM Advance Directive(s) 02/20/2020 1:58 PM Advance Directive(s) 01/22/2020 11:44 AM Advance Directive(s) 12/02/2015 2:01 PM Advance Directive(s) 12/01/2015 9:30 AM Advance Directive Response Recorded Date/ Time Advance Directives No October 8:29am Living Will No September 28 10:00pm Power of Vending Machine Operator No September 28, 10:00pm Documents on File Type Date Recorded Patient Social Insurance Administrator Expl anation Advance Directive(s) 04/20/2020 3:12 PM Advance Directive Response Recorded Date/ Time Name of Medical Power of Vending Machine Operator Jannet winter, darling dorcas, Lisa dorcas February 22, 2022 5:34pm Advance Directives No October 7:29am Living Will Yes February 22 5:34pm Power of Vending Machine Operator Yes February 22, 2022 5:34pm Advance Directive Response Recorded Date/ Time Advance Directives No October 7:29am Living Will Yes February 22 5:34pm Power of Vending Machine Operator Yes February 22, 2022 5:34pm Name of Medical Power of Vending Machine Operator Jannet winter, darling dorcas, Lisa dorcas February 22, 2022 5:34pm Advance Directive Response Recorded Date/ Time Name of Medical Power of Vending Machine Operator Jannet winter, darling dorcas, Lisa dorcas February 22, 2022 5:34pm Name of Medical Power of Vending Machine Operator kids April 15, 2022 6:29am Advance Directives No October 7:29am Living Will Yes April 15, 2022 6:29am Power of Vending Machine Operator Yes April 15 6:29am Advance Directive Response Recorded Date/ Time Name of Medical Power of Vending Machine Operator Jannet winter, darling dorcas, Lisa dorcas February 22, 2022 6:34pm Name of Medical Power of Vending Machine Operator kids April 15, 2022 7:29am Advance Directives No October 8:29am Living Will Yes April 15, 2022 7:29am Power of Vending Machine Operator Yes April 15 7:29am Latest Code Status on File Code Status Date Activated Date Inactivated Comments Full Code 04/08/2022 1:09 AM 04/09/2022 7:22 PM Latest Code Status on File Code Status Date Activated Date Inactivated Comments Full Code 04/08/2022 1:09 AM 04/09/2022 7:22 PM Question Answer Comments Full Code Order Discussed With: Patient Latest Code Status on File Code Status Date Activated Date Inactivated Comments Full Code 04/08/2022 1:09 AM 04/09/2022 7:22 PM Question Answer Comments Full Code Order Discussed With: Patient Latest Code Status on File Code Status Date Activated Date Inactivated Comments Full Code 04/08/2022 1:09 AM 04/09/2022 7:22 PM Question Answer Comments Full Code Order Discussed With: Patient Latest Code Status on File Code Status Date Activated Date Inactivated Comments Full Code 04/08/2022 1:09 AM 04/09/2022 7:22 PM Question Answer Comments Full Code Order Discussed With: Patient Advance Directive Response Recorded Date/ Time Advance Directives No October 7:29am Living Will Yes June 29, 2022 8 :33pm Power of Vending Machine Operator Yes June 29, 2022 8:33pm Date Activated Date Inactivated Comments 04/08/2022 1:09 AM 04/09/2022 7:22 PM Question Answer Comments Full Code Order Discussed With: Patient Advance Directive Response Recorded Date/ Time Advance Directives No October 8:29am Living Will Yes June 29, 2022 9 :33pm Power of Vending Machine Operator Yes June 29, 2022 9:33pm Advance Directive Response Recorded Date/ Time Living Will No March 09 1:39pm Do you have a Healthcare Power of Vending Machine Operator? No March 09, 2024 1:39pm Advance Directives No October 8:29am Advance Directive Response Recorded Date/ Time Advance Directives No October 8:29am Reason for Referral Specialty Diagnoses / Procedures Referred By Dion garay Referred To Contact Diagnoses Sleep apnea, obstructive Procedures CONSULT TO SLEEP MEDICINE - ADULT OFFICE/OUTPATIENT [facility] 60-74 MINUTES Yasemin Connors MD [address] [place] [address] Referral ID Status Reason Start Date Expiration Date Visits Requested Visits Authorized [id number] Pending Review PCP Requested Referral 06/06/2021 06/06/2022 1 1 Specialty Diagnoses / Procedures Referred By Dion garay Referred To Contact CT IMAGING Diagnoses 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 to the liver (HCC) Lung nodules Procedures CT ABD/PEL W IVCON CT ABD & PELVIS W/CONTRAST Jerry Vallejo DO [address] [place] [address] Ct Imaging Referral ID Status Reason Start Date Expiration Date V isits Requested Visits Authorized [id number] Closed Auto-Generate d Referral 03/30/2021 04/29/2022 1 1 Specialty Diagnoses / Procedures Referred By Contac t Referred To Contact CT IMAGING Diagnoses 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 to the liver (HCC) Lung nodules Procedures CT CHEST W IVCON DIAGNOSTIC COMPUTED TOMOGRAPHY THORAX W/CONTRAST Jerry Vallejo DO [address] [place] [address] Ct Imaging Referral ID Status Reason Start Date Expiration Date V isits Requested Visits Authorized [id number] Closed Auto-Generate d Referral 03/30/2021 04/29/2022 1 1 Specialty Diagnoses / Procedures Referred By Contac t Referred To Contact Orthopedics Diagnoses Arthritis of knee Procedures CONSULT TO ORTHOPAEDICS OFFICE/OUTPATIENT [facility] 60-74 MINUTES Yasemin Connors MD [address] [place] [address] Referral ID Status Reason Start Date Expiration Date Visits Requested Visits Authorized [id number] Pending Review PCP Requested Referral 09/06/2021 09/06/2022 1 1 Specialty Diagnoses / Procedures Referred By Contac t Referred To Contact CT IMAGING Diagnoses Malignant neoplasm of transverse colon (HCC) Metastases to the liver (HCC) Lung nodules Procedures CT CHEST W IVCON DIAGNOSTIC COMPUTED TOMOGRAPHY THORAX W/CONTRAST Geneva Ramos APRN.ADMINISTRATIVE PROCESSOR [address] [place] [address] Ct Imaging Referral ID Status Reason Start Date Expiration Date Visits Requested Visits Authorized [id number] Additional Clinical Info Needed Auto-Generat ed Referral 12/31/2022 1 1 Specialty Diagnoses / Procedures Referred By Contac t Referred To Contact CT IMAGING Diagnoses Malignant neoplasm of transverse colon (HCC) Metastases to the liver (HCC) Lung nodules Procedures CT ABD/PEL W IVCON CT ABD & PELVIS W/CONTRAST Geneva Ramos, TANIA.ADMINISTRATIVE PROCESSOR [address] [place] [address] Ct Imaging Referral ID Status Reason Start Date Expiration Date Visits Requested Visits Authorized [id number] Additional Clinical Info Needed Auto-Generat ed Referral 12/31/2022 1 1 Referral ID Status Reason Start Date Expiration Date Visits Requested Visits Authorized [id number] Authorized Auto-Generat ed Referral 04/03/2022 05/03/2023 1 1 Referral ID Status Reason Start Date Expiration Date Visits Requested Visits Authorized [id number] Authorized Auto-Generat ed Referral 04/03/2022 05/03/2023 1 1 Specialty Diagnoses / Procedures Referred By Contac t Referred To Contact [facility] IMAGING Diagnoses Double vision Dizziness Vertigo Intractable headache, unspecified chronicity pattern, unspecified headache type Thunderclap headache H/O colon cancer, stage IV Procedures MRI BRAIN WO/W IVCON MRI BRAIN BRAIN STEM W/O W/CONTRAST MATERIAL Yasemin Connors MD [address] [place] [address] Mr Imaging Referral ID Status Reason Start Date Expiration Date Visits Requested Visits Authorized [id number] Authorized Auto-Generat ed Referral 04/07/2022 05/07/2023 1 1 Specialty Diagnoses / Procedures Referred By Contac t Referred To Contact Dermatology Diagnoses Rash Procedures CONSULT TO DERMATOLOGY Yasemin Connors MD [address] [place] [address] Referral ID Status Reason Start Date Expiration Date Visits Requested Visits Authorized [id number] Ref Not Required PCP Requested Referral 06/16/2022 06/16/2023 1 1 Specialty Diagnoses / Procedures Referred By Contac t Referred To Contact CT IMAGING Diagnoses Malignant neoplasm of transverse colon (HCC) Metastases to the liver (HCC) Lung nodules Procedures CT CHEST W IVCON DIAGNOSTIC COMPUTED TOMOGRAPHY THORAX W/CONTRAST Geneva Ramos APRN.MARGO [address] [place] [address] [place] [address] Referral ID Status Reason Start Date Expiration Date Visits Requested Visits Authorized [id number] Authorized Auto-Generat ed Referral 10/05/2022 11/04/2023 1 1 Specialty Diagnoses / Procedures Referred By Contac t Referred To Contact CT IMAGING Diagnoses Malignant neoplasm of transverse colon (HCC) Metastases to the liver (HCC) Lung nodules Procedures CT ABD/PEL W IVCON CT ABD & PELVIS W/CONTRAST Geneva Ramos APRN.ADMINISTRATIVE PROCESSOR [address] [place] [address] [place] [address] Referral ID Status Reason Start Date Expiration Date Visits Requested Visits Authorized [id number] Authorized Auto-Generat ed Referral 10/05/2022 11/04/2023 1 1 Specialty Diagnoses / Procedures Referred By Contac t Referred To Contact Gynecology Diagnoses Hematuria, unspecified type Vaginal discharge Vagina bleeding Procedures CONSULT TO GYNECOLOGY OFFICE/OUTPATIENT [facility] MDM 60-74 MINUTES Older, TANIA Devlin.ADMINISTRATIVE PROCESSOR [address] [place] [address] Referral ID Status Reason Start Date Expiration Date Visits Requested Visits Authorized [id number] Pending Review PCP Requested Referral Auto-Generate d Referral 12/11/2022 12/11/2023 1 1 Specialty Diagnoses / Procedures Referred By Contac t Referred To Contact CT IMAGING Diagnoses Lung nodules Cancer of transverse colon (HCC) Metastases to the liver (HCC) Procedures CT CHEST W IVCON DIAGNOSTIC COMPUTED TOMOGRAPHY THORAX W/CONTRAST Geneva Ramos APRN.ADMINISTRATIVE PROCESSOR [address] [place] [address] [place] [address] Referral ID Status Reason Start Date Expiration Date Visits Requested Visits Authorized [id number] Authorized Auto-Generat ed Referral 01/10/2023 02/09/2024 1 1 Specialty Diagnoses / Procedures Referred By Contac t Referred To Contact CT IMAGING Diagnoses Cancer of transverse colon (HCC) Lung nodules Metastases to the liver (HCC) Procedures CT CHEST W IVCON DIAGNOSTIC COMPUTED TOMOGRAPHY THORAX W/CONTRAST Geneva Ramos APRN.ADMINISTRATIVE PROCESSOR [address] [place] [address] [place] [address] Referral ID Status Reason Start Date Expiration Date Visits Requested Visits Authorized [id number] Authorized Auto-Generat ed Referral 04/06/2023 05/05/2024 1 1 Specialty Diagnoses / Procedures Referred By Contac t Referred To Contact CT IMAGING Diagnoses Cancer of transverse colon (HCC) Lung nodules Metastases to the liver (HCC) Procedures CT ABD/PEL W IVCON CT ABD & PELVIS W/CONTRAST Geneva Ramos APRN.ADMINISTRATIVE PROCESSOR [address] [place] [address] [place] [address] Referral ID Status Reason Start Date Expiration Date Visits Requested Visits Authorized [id number] Authorized Auto-Generat ed Referral 04/06/2023 05/05/2024 1 1 Specialty Diagnoses / Procedures Referred By Contac t Referred To Contact Nephrology Diagnoses Type 2 diabetes mellitus with diabetic neuropathy, with long-term current use of insulin (HCC) Stage 3 chronic kidney disease, unspecified whether stage 3a or 3b CKD (HCC) Chronic diastolic CHF (congestive heart failure) (HCC) Procedures CONSULT TO NEPHROLOGY OFFICE/OUTPATIENT [facility] 60 MINUTES Estefani Willard APRN.ADMINISTRATIVE PROCESSOR [address] [place] [address] Referral ID Status Reason Start Date Expiration Date Visits Requested Visits Authorized [id number] Authorized PCP Requested Referral 08/17/2023 08/16/2024 1 1 Referral ID Status Reason Start Date Expiration Date Visits Requested Visits Authorized [id number] Authorized Auto-Generat ed Referral 10/02/2023 10/31/2024 1 1 Referral ID Status Reason Start Date Expiration Date Visits Requested Visits Authorized [id number] Authorized Auto-Generat ed Referral 10/02/2023 10/31/2024 1 1 Medications Administered Section Inactive Administered Medications - up to 3 most recent administrations Medication Order MAR Action Action Date Dose Rate Site benzocaine 20% [address] [place] (TOPEX) [address] [place], TOPICAL, DIRECTED, Starting on Sun06/21/21 at 0930, Until Sun06/21/21 at 1329, DOSING DIRECTED BY PHYSICIAN FOR PROCEDURAL SEDATION ONLY - Pharmaceutical Waste: Aerosol -, Intraprocedure Given 06/21/2021 9:16 AM EDT 5 Sprays diphenhydrAMINE 12.5-50 mg injection (BENADRYL) 12.5-50 mg, INTRAVENOUS, DIRECTED, Starting on Sun06/21/21 at 0930, Until Sun06/21/21 at 1329, DOSING DIRECTED BY PHYSICIAN FOR PROCEDURAL SEDATION ONLY, Intraprocedure Given 06/21/2021 9:34 AM EDT 50 mg fentaNYL 50 mcg/mL 25-100 mcg injection (SUBLIMAZE) 25-100 mcg, INTRAVENOUS, DIRECTED, Starting on Sun06/21/21 at 0930, Until Sun06/21/21 at 1329, DOSING DIRECTED BY PHYSICIAN FOR PROCEDURAL SEDATION ONLY, Intraprocedure Given 06/21/2021 9:31 AM EDT 25 mcg Given 06/21/2021 9:20 AM EDT 50 mcg heparin 100 unit/mL 400 Units injection 400 Units, INTRAVENOUS, ONCE, 1 dose, On Sun06/21/21 at 1030 Given 06/21/2021 10:26 AM EDT 400 Units lactated ringers iv infusion 30 mL/hr, INTRAVENOUS, CONTINUOUS, Starting on Sun06/21/21 at 0800, Until Sun06/21/21 at 0955, Preprocedure New Bag/Syringe/Fernandez le 06/21/2021 8:30 AM EDT 30 mL/hr 30 mL/hr Port midazolam (PF) 1-5 mg injection (VERSED) 1-5 mg, INTRAVENOUS, DIRECTED, Starting on Sun06/21/21 at 0930, Until Sun06/21/21 at 1329, DOSING DIRECTED BY PHYSICIAN FOR PROCEDURAL SEDATION ONLY, Intraprocedure Given 06/21/2021 9:24 AM EDT 1 mg Given 06/21/2021 9:22 AM EDT 1 mg Given 06/21/2021 9:20 AM EDT 3 mg Chief Complaint and Reason for Visit Chief Complaint PAIN- COPY PCP Chief Complaint SHILPA HEADACHE Chief Complaint HEADACHE PAIN- COPY PCP Chief Complaint HEADACHE PAIN- COPY PCP VISUAL HALLUCINATIONS nausea, vomiting, diarrhea Chief Complaint 1 Y FU PAIN- COPY PCP Reason for Visit Chronic diastolic (c ongestive) heart failure Essential hypertension Hyperlipidemia Chief Complaint BACK AND LEG PAIN. R X HERE Chief Complaint Admit Date DIARRHEA March 09, 2024 1 2:38pm Health Concerns Infection Onset Date Last Indicated Resolved Time COVID-19 Rule-Out 12/19/2022 12/19/2022 2022 2:33 AM EST COVID-19 Confirmed 12/19/2022 12/19/2022 Additional Source Comments INFORMATION SOURCE (unrecogn ized section and content) DATE CREATED AUTHOR 07/27/2017 [facility] DATE CREATED AUTHOR AUTHOR'S ORGANIZ ATION 12/18/2018 [facility] DATE CREATED AUTHOR AUTHOR'S ORGANIZ ATION 04/14/2022 [facility] DATE CREATED AUTHOR AUTHOR'S ORGANIZ ATION 07/12/2024 [facility] DATE CREATED AUTHOR AUTHOR'S ORGANIZ ATION 12/13/2024 [facility] Source Comments (unrecognize d section and content) In the event this informatio n is protected by the Federal Confidentiality of Alcohol and Drug Abuse Patient Records regulations: The Federal rules restrict any use of the information to criminally investigate or prosecute any alcohol or drug abuse patient.[facility] the event this information is protected by the Federal Confidentiality of Alcohol and Drug Abuse Patient Records regulations: The Federal rules restrict any use of the information to criminally investigate or prosecute any alcohol or drug abuse patient.[facility] Center[facility] the event this information is protected by the Federal Confidentiality of Alcohol and Drug Abuse Patient Records regulations: The Federal rules restrict any use of the information to criminally investigate or prosecute any alcohol or drug abuse patient.[facility] the event this information is protected by the Federal Confidentiality of Alcohol and Drug Abuse Patient Records regulations: The Federal rules restrict any use of the information to criminally investigate or prosecute any alcohol or drug abuse patient.[facility] Center[facility] the event this information is protected by the Federal Confidentiality of Alcohol and Drug Abuse Patient Records regulations: The Federal rules restrict any use of the information to criminally investigate or prosecute any alcohol or drug abuse patient.[facility] Center[facility] the event this information is protected by the Federal Confidentiality of Alcohol and Drug Abuse Patient Records regulations: The Federal rules restrict any use of the information to criminally investigate or prosecute any alcohol or drug abuse patient.[facility] Center[facility] the event this information is protected by the Federal Confidentiality of Alcohol and Drug Abuse Patient Records regulations: The Federal rules restrict any use of the information to criminally investigate or prosecute any alcohol or drug abuse patient.[facility] Center[facility] the event this information is protected by the Federal Confidentiality of Alcohol and Drug Abuse Patient Records regulations: The Federal rules restrict any use of the information to criminally investigate or prosecute any alcohol or drug abuse patient.[facility] the event this information is protected by the Federal Confidentiality of Alcohol and Drug Abuse Patient Records regulations: The Federal rules restrict any use of the information to criminally investigate or prosecute any alcohol or drug abuse patient.[facility] Center[facility] the event this information is protected by the Federal Confidentiality of Alcohol and Drug Abuse Patient Records regulations: The Federal rules restrict any use of the information to criminally investigate or prosecute any alcohol or drug abuse patient.[facility] CenterIn the event this information is protected by the Federal Confidentiality of Alcohol and Drug Abuse Patient Records regulations: The Federal rules restrict any use of the information to criminally investigate or prosecute any alcohol or drug abuse patient.[facility] [facility] the event this information is protected by the Federal Confidentiality of Alcohol and Drug Abuse Patient Records regulations: The Federal rules restrict any use of the information to criminally investigate or prosecute any alcohol or drug abuse patient.[facility]In the event this information is protected by the Federal Confidentiality of Alcohol and Drug Abuse Patient Records regulations: The Federal rules restrict any use of the information to criminally investigate or prosecute any alcohol or drug abuse patient.[facility]In the event this information is protected by the Federal Confidentiality of Alcohol and Drug Abuse Patient Records regulations: The Federal rules restrict any use of the information to criminally investigate or prosecute any alcohol or drug abuse patient.[facility]In the event this information is protected by the Federal Confidentiality of Alcohol and Drug Abuse Patient Records regulations: The Federal rules restrict any use of the information to criminally investigate or prosecute any alcohol or drug abuse patient.[facility]In the event this information is protected by the Federal Confidentiality of Alcohol and Drug Abuse Patient Records regulations: The Federal rules restrict any use of the information to criminally investigate or prosecute any alcohol or drug abuse patient.[facility]In the event this information is protected by the Federal Confidentiality of Alcohol and Drug Abuse Patient Records regulations: The Federal rules restrict any use of the information to criminally investigate or prosecute any alcohol or drug abuse patient.[facility]In the event this information is protected by the Federal Confidentiality of Alcohol and Drug Abuse Patient Records regulations: The Federal rules restrict any use of the information to criminally investigate or prosecute any alcohol or drug abuse patient.[facility]In the event this information is protected by the Federal Confidentiality of Alcohol and Drug Abuse Patient Records regulations: The Federal rules restrict any use of the information to criminally investigate or prosecute any alcohol or drug abuse patient.[facility]In the event this information is protected by the Federal Confidentiality of Alcohol and Drug Abuse Patient Records regulations: The Federal rules restrict any use of the information to criminally investigate or prosecute any alcohol or drug abuse patient.[facility]In the event this information is protected by the Federal Confidentiality of Alcohol and Drug Abuse Patient Records regulations: The Federal rules restrict any use of the information to criminally investigate or prosecute any alcohol or drug abuse patient.[facility]In the event this information is protected by the Federal Confidentiality of Alcohol and Drug Abuse Patient Records regulations: The Federal rules restrict any use of the information to criminally investigate or prosecute any alcohol or drug abuse patient.[facility]In the event this information is protected by the Federal Confidentiality of Alcohol and Drug Abuse Patient Records regulations: The Federal rules restrict any use of the information to criminally investigate or prosecute any alcohol or drug abuse patient.[facility]In the event this information is protected by the Federal Confidentiality of Alcohol and Drug Abuse Patient Records regulations: The Federal rules restrict any use of the information to criminally investigate or prosecute any alcohol or drug abuse patient.[facility]In the event this information is protected by the Federal Confidentiality of Alcohol and Drug Abuse Patient Records regulations: The Federal rules restrict any use of the information to criminally investigate or prosecute any alcohol or drug abuse patient.[facility]In the event this information is protected by the Federal Confidentiality of Alcohol and Drug Abuse Patient Records regulations: The Federal rules restrict any use of the information to criminally investigate or prosecute any alcohol or drug abuse patient.[facility]In the event this information is protected by the Federal Confidentiality of Alcohol and Drug Abuse Patient Records regulations: The Federal rules restrict any use of the information to criminally investigate or prosecute any alcohol or drug abuse patient.[facility]In the event this information is protected by the Federal Confidentiality of Alcohol and Drug Abuse Patient Records regulations: The Federal rules restrict any use of the information to criminally investigate or prosecute any alcohol or drug abuse patient.[facility]In the event this information is protected by the Federal Confidentiality of Alcohol and Drug Abuse Patient Records regulations: The Federal rules restrict any use of the information to criminally investigate or prosecute any alcohol or drug abuse patient.[facility]In the event this information is protected by the Federal Confidentiality of Alcohol and Drug Abuse Patient Records regulations: The Federal rules restrict any use of the information to criminally investigate or prosecute any alcohol or drug abuse patient.[facility]In the event this information is protected by the Federal Confidentiality of Alcohol and Drug Abuse Patient Records regulations: The Federal rules restrict any use of the information to criminally investigate or prosecute any alcohol or drug abuse patient.[facility]In the event this information is protected by the Federal Confidentiality of Alcohol and Drug Abuse Patient Records regulations: The Federal rules restrict any use of the information to criminally investigate or prosecute any alcohol or drug abuse patient.[facility]In the event this information is protected by the Federal Confidentiality of Alcohol and Drug Abuse Patient Records regulations: The Federal rules restrict any use of the information to criminally investigate or prosecute any alcohol or drug abuse patient.[facility]In the event this information is protected by the Federal Confidentiality of Alcohol and Drug Abuse Patient Records regulations: The Federal rules restrict any use of the information to criminally investigate or prosecute any alcohol or drug abuse patient.[facility]In the event this information is protected by the Federal Confidentiality of Alcohol and Drug Abuse Patient Records regulations: The Federal rules restrict any use of the information to criminally investigate or prosecute any alcohol or drug abuse patient.[facility]In the event this information is protected by the Federal Confidentiality of Alcohol and Drug Abuse Patient Records regulations: The Federal rules restrict any use of the information to criminally investigate or prosecute any alcohol or drug abuse patient.[facility]In the event this information is protected by the Federal Confidentiality of Alcohol and Drug Abuse Patient Records regulations: The Federal rules restrict any use of the information to criminally investigate or prosecute any alcohol or drug abuse patient.[facility]In the event this information is protected by the Federal Confidentiality of Alcohol and Drug Abuse Patient Records regulations: The Federal rules restrict any use of the information to criminally investigate or prosecute any alcohol or drug abuse patient.[facility]In the event this information is protected by the Federal Confidentiality of Alcohol and Drug Abuse Patient Records regulations: The Federal rules restrict any use of the information to criminally investigate or prosecute any alcohol or drug abuse patient.[facility]In the event this information is protected by the Federal Confidentiality of Alcohol and Drug Abuse Patient Records regulations: The Federal rules restrict any use of the information to criminally investigate or prosecute any alcohol or drug abuse patient.[facility]In the event this information is protected by the Federal Confidentiality of Alcohol and Drug Abuse Patient Records regulations: The Federal rules restrict any use of the information to criminally investigate or prosecute any alcohol or drug abuse patient.[facility]In the event this information is protected by the Federal Confidentiality of Alcohol and Drug Abuse Patient Records regulations: The Federal rules restrict any use of the information to criminally investigate or prosecute any alcohol or drug abuse patient.[facility]In the event this information is protected by the Federal Confidentiality of Alcohol and Drug Abuse Patient Records regulations: The Federal rules restrict any use of the information to criminally investigate or prosecute any alcohol or drug abuse patient.[facility]In the event this information is protected by the Federal Confidentiality of Alcohol and Drug Abuse Patient Records regulations: The Federal rules restrict any use of the information to criminally investigate or prosecute any alcohol or drug abuse patient.[facility]In the event this information is protected by the Federal Confidentiality of Alcohol and Drug Abuse Patient Records regulations: The Federal rules restrict any use of the information to criminally investigate or prosecute any alcohol or drug abuse patient.[facility]In the event this information is protected by the Federal Confidentiality of Alcohol and Drug Abuse Patient Records regulations: The Federal rules restrict any use of the information to criminally investigate or prosecute any alcohol or drug abuse patient.[facility]In the event this information is protected by the Federal Confidentiality of Alcohol and Drug Abuse Patient Records regulations: The Federal rules restrict any use of the information to criminally investigate or prosecute any alcohol or drug abuse patient.[facility]In the event this information is protected by the Federal Confidentiality of Alcohol and Drug Abuse Patient Records regulations: The Federal rules restrict any use of the information to criminally investigate or prosecute any alcohol or drug abuse patient.[facility]In the event this information is protected by the Federal Confidentiality of Alcohol and Drug Abuse Patient Records regulations: The Federal rules restrict any use of the information to criminally investigate or prosecute any alcohol or drug abuse patient.[facility]In the event this information is protected by the Federal Confidentiality of Alcohol and Drug Abuse Patient Records regulations: The Federal rules restrict any use of the information to criminally investigate or prosecute any alcohol or drug abuse patient.[facility]In the event this information is protected by the Federal Confidentiality of Alcohol and Drug Abuse Patient Records regulations: The Federal rules restrict any use of the information to criminally investigate or prosecute any alcohol or drug abuse patient.[facility]In the event this information is protected by the Federal Confidentiality of Alcohol and Drug Abuse Patient Records regulations: The Federal rules restrict any use of the information to criminally investigate or prosecute any alcohol or drug abuse patient.[facility]In the event this information is protected by the Federal Confidentiality of Alcohol and Drug Abuse Patient Records regulations: The Federal rules restrict any use of the information to criminally investigate or prosecute any alcohol or drug abuse patient.[facility]In the event this information is protected by the Federal Confidentiality of Alcohol and Drug Abuse Patient Records regulations: The Federal rules restrict any use of the information to criminally investigate or prosecute any alcohol or drug abuse patient.[facility]In the event this information is protected by the Federal Confidentiality of Alcohol and Drug Abuse Patient Records regulations: The Federal rules restrict any use of the information to criminally investigate or prosecute any alcohol or drug abuse patient.[facility]In the event this information is protected by the Federal Confidentiality of Alcohol and Drug Abuse Patient Records regulations: The Federal rules restrict any use of the information to criminally investigate or prosecute any alcohol or drug abuse patient.[facility]In the event this information is protected by the Federal Confidentiality of Alcohol and Drug Abuse Patient Records regulations: The Federal rules restrict any use of the information to criminally investigate or prosecute any alcohol or drug abuse patient.[facility]In the event this information is protected by the Federal Confidentiality of Alcohol and Drug Abuse Patient Records regulations: The Federal rules restrict any use of the information to criminally investigate or prosecute any alcohol or drug abuse patient.[facility]In the event this information is protected by the Federal Confidentiality of Alcohol and Drug Abuse Patient Records regulations: The Federal rules restrict any use of the information to criminally investigate or prosecute any alcohol or drug abuse patient.[facility]In the event this information is protected by the Federal Confidentiality of Alcohol and Drug Abuse Patient Records regulations: The Federal rules restrict any use of the information to criminally investigate or prosecute any alcohol or drug abuse patient.[facility]In the event this information is protected by the Federal Confidentiality of Alcohol and Drug Abuse Patient Records regulations: The Federal rules restrict any use of the information to criminally investigate or prosecute any alcohol or drug abuse patient.[facility]In the event this information is protected by the Federal Confidentiality of Alcohol and Drug Abuse Patient Records regulations: The Federal rules restrict any use of the information to criminally investigate or prosecute any alcohol or drug abuse patient.[facility]In the event this information is protected by the Federal Confidentiality of Alcohol and Drug Abuse Patient Records regulations: The Federal rules restrict any use of the information to criminally investigate or prosecute any alcohol or drug abuse patient.[facility]In the event this information is protected by the Federal Confidentiality of Alcohol and Drug Abuse Patient Records regulations: The Federal rules restrict any use of the information to criminally investigate or prosecute any alcohol or drug abuse patient.[facility]In the event this information is protected by the Federal Confidentiality of Alcohol and Drug Abuse Patient Records regulations: The Federal rules restrict any use of the information to criminally investigate or prosecute any alcohol or drug abuse patient.[facility]In the event this information is protected by the Federal Confidentiality of Alcohol and Drug Abuse Patient Records regulations: The Federal rules restrict any use of the information to criminally investigate or prosecute any alcohol or drug abuse patient.[facility]In the event this information is protected by the Federal Confidentiality of Alcohol and Drug Abuse Patient Records regulations: The Federal rules restrict any use of the information to criminally investigate or prosecute any alcohol or drug abuse patient.[facility]In the event this information is protected by the Federal Confidentiality of Alcohol and Drug Abuse Patient Records regulations: The Federal rules restrict any use of the information to criminally investigate or prosecute any alcohol or drug abuse patient.[facility]In the event this information is protected by the Federal Confidentiality of Alcohol and Drug Abuse Patient Records regulations: The Federal rules restrict any use of the information to criminally investigate or prosecute any alcohol or drug abuse patient.[facility]In the event this information is protected by the Federal Confidentiality of Alcohol and Drug Abuse Patient Records regulations: The Federal rules restrict any use of the information to criminally investigate or prosecute any alcohol or drug abuse patient.[facility]In the event this information is protected by the Federal Confidentiality of Alcohol and Drug Abuse Patient Records regulations: The Federal rules restrict any use of the information to criminally investigate or prosecute any alcohol or drug abuse patient.[facility]In the event this information is protected by the Federal Confidentiality of Alcohol and Drug Abuse Patient Records regulations: The Federal rules restrict any use of the information to criminally investigate or prosecute any alcohol or drug abuse patient.[facility]In the event this information is protected by the Federal Confidentiality of Alcohol and Drug Abuse Patient Records regulations: The Federal rules restrict any use of the information to criminally investigate or prosecute any alcohol or drug abuse patient.[facility]In the event this information is protected by the Federal Confidentiality of Alcohol and Drug Abuse Patient Records regulations: The Federal rules restrict any use of the information to criminally investigate or prosecute any alcohol or drug abuse patient.[facility]In the event this information is protected by the Federal Confidentiality of Alcohol and Drug Abuse Patient Records regulations: The Federal rules restrict any use of the information to criminally investigate or prosecute any alcohol or drug abuse patient.[facility]In the event this information is protected by the Federal Confidentiality of Alcohol and Drug Abuse Patient Records regulations: The Federal rules restrict any use of the information to criminally investigate or prosecute any alcohol or drug abuse patient.[facility]In the event this information is protected by the Federal Confidentiality of Alcohol and Drug Abuse Patient Records regulations: The Federal rules restrict any use of the information to criminally investigate or prosecute any alcohol or drug abuse patient.[facility]In the event this information is protected by the Federal Confidentiality of Alcohol and Drug Abuse Patient Records regulations: The Federal rules restrict any use of the information to criminally investigate or prosecute any alcohol or drug abuse patient.[facility]In the event this information is protected by the Federal Confidentiality of Alcohol and Drug Abuse Patient Records regulations: The Federal rules restrict any use of the information to criminally investigate or prosecute any alcohol or drug abuse patient.[facility]In the event this information is protected by the Federal Confidentiality of Alcohol and Drug Abuse Patient Records regulations: The Federal rules restrict any use of the information to criminally investigate or prosecute any alcohol or drug abuse patient.[facility]In the event this information is protected by the Federal Confidentiality of Alcohol and Drug Abuse Patient Records regulations: The Federal rules restrict any use of the information to criminally investigate or prosecute any alcohol or drug abuse patient.[facility]In the event this information is protected by the Federal Confidentiality of Alcohol and Drug Abuse Patient Records regulations: The Federal rules restrict any use of the information to criminally investigate or prosecute any alcohol or drug abuse patient.[facility]In the event this information is protected by the Federal Confidentiality of Alcohol and Drug Abuse Patient Records regulations: The Federal rules restrict any use of the information to criminally investigate or prosecute any alcohol or drug abuse patient.[facility]In the event this information is protected by the Federal Confidentiality of Alcohol and Drug Abuse Patient Records regulations: The Federal rules restrict any use of the information to criminally investigate or prosecute any alcohol or drug abuse patient.[facility]In the event this information is protected by the Federal Confidentiality of Alcohol and Drug Abuse Patient Records regulations: The Federal rules restrict any use of the information to criminally investigate or prosecute any alcohol or drug abuse patient.[facility]In the event this information is protected by the Federal Confidentiality of Alcohol and Drug Abuse Patient Records regulations: The Federal rules restrict any use of the information to criminally investigate or prosecute any alcohol or drug abuse patient.[facility]In the event this information is protected by the Federal Confidentiality of Alcohol and Drug Abuse Patient Records regulations: The Federal rules restrict any use of the information to criminally investigate or prosecute any alcohol or drug abuse patient.[facility]In the event this information is protected by the Federal Confidentiality of Alcohol and Drug Abuse Patient Records regulations: The Federal rules restrict any use of the information to criminally investigate or prosecute any alcohol or drug abuse patient.[facility]In the event this information is protected by the Federal Confidentiality of Alcohol and Drug Abuse Patient Records regulations: The Federal rules restrict any use of the information to criminally investigate or prosecute any alcohol or drug abuse patient.[facility]In the event this information is protected by the Federal Confidentiality of Alcohol and Drug Abuse Patient Records regulations: The Federal rules restrict any use of the information to criminally investigate or prosecute any alcohol or drug abuse patient.[facility]In the event this information is protected by the Federal Confidentiality of Alcohol and Drug Abuse Patient Records regulations: The Federal rules restrict any use of the information to criminally investigate or prosecute any alcohol or drug abuse patient.[facility]In the event this information is protected by the Federal Confidentiality of Alcohol and Drug Abuse Patient Records regulations: The Federal rules restrict any use of the information to criminally investigate or prosecute any alcohol or drug abuse patient.[facility]In the event this information is protected by the Federal Confidentiality of Alcohol and Drug Abuse Patient Records regulations: The Federal rules restrict any use of the information to criminally investigate or prosecute any alcohol or drug abuse patient.[facility]In the event this information is protected by the Federal Confidentiality of Alcohol and Drug Abuse Patient Records regulations: The Federal rules restrict any use of the information to criminally investigate or prosecute any alcohol or drug abuse patient.[facility]In the event this information is protected by the Federal Confidentiality of Alcohol and Drug Abuse Patient Records regulations: The Federal rules restrict any use of the information to criminally investigate or prosecute any alcohol or drug abuse patient.[facility]In the event this information is protected by the Federal Confidentiality of Alcohol and Drug Abuse Patient Records regulations: The Federal rules restrict any use of the information to criminally investigate or prosecute any alcohol or drug abuse patient.[facility] CenterIn the event this information is protected by the Federal Confidentiality of Alcohol and Drug Abuse Patient Records regulations: The Federal rules restrict any use of the information to criminally investigate or prosecute any alcohol or drug abuse patient.[facility] CenterIn the event this information is protected by the Federal Confidentiality of Alcohol and Drug Abuse Patient Records regulations: The Federal rules restrict any use of the information to criminally investigate or prosecute any alcohol or drug abuse patient.[facility] CenterIn the event this information is protected by the Federal Confidentiality of Alcohol and Drug Abuse Patient Records regulations: The Federal rules restrict any use of the information to criminally investigate or prosecute any alcohol or drug abuse patient.[facility] CenterIn the event this information is protected by the Federal Confidentiality of Alcohol and Drug Abuse Patient Records regulations: The Federal rules restrict any use of the information to criminally investigate or prosecute any alcohol or drug abuse patient.[facility] CenterIn the event this information is protected by the Federal Confidentiality of Alcohol and Drug Abuse Patient Records regulations: The Federal rules restrict any use of the information to criminally investigate or prosecute any alcohol or drug abuse patient.[facility] CenterIn the event this information is protected by the Federal Confidentiality of Alcohol and Drug Abuse Patient Records regulations: The Federal rules restrict any use of the information to criminally investigate or prosecute any alcohol or drug abuse patient.[facility] CenterIn the event this information is protected by the Federal Confidentiality of Alcohol and Drug Abuse Patient Records regulations: The Federal rules restrict any use of the information to criminally investigate or prosecute any alcohol or drug abuse patient.[facility] CenterIn the event this information is protected by the Federal Confidentiality of Alcohol and Drug Abuse Patient Records regulations: The Federal rules restrict any use of the information to criminally investigate or prosecute any alcohol or drug abuse patient.[facility] CenterIn the event this information is protected by the Federal Confidentiality of Alcohol and Drug Abuse Patient Records regulations: The Federal rules restrict any use of the information to criminally investigate or prosecute any alcohol or drug abuse patient.[facility] CenterIn the event this information is protected by the Federal Confidentiality of Alcohol and Drug Abuse Patient Records regulations: The Federal rules restrict any use of the information to criminally investigate or prosecute any alcohol or drug abuse patient.[facility] CenterIn the event this information is protected by the Federal Confidentiality of Alcohol and Drug Abuse Patient Records regulations: The Federal rules restrict any use of the information to criminally investigate or prosecute any alcohol or drug abuse patient.[facility] CenterIn the event this information is protected by the Federal Confidentiality of Alcohol and Drug Abuse Patient Records regulations: The Federal rules restrict any use of the information to criminally investigate or prosecute any alcohol or drug abuse patient.[facility] CenterIn the event this information is protected by the Federal Confidentiality of Alcohol and Drug Abuse Patient Records regulations: The Federal rules restrict any use of the information to criminally investigate or prosecute any alcohol or drug abuse patient.[facility] CenterIn the event this information is protected by the Federal Confidentiality of Alcohol and Drug Abuse Patient Records regulations: The Federal rules restrict any use of the information to criminally investigate or prosecute any alcohol or drug abuse patient.[facility] CenterIn the event this information is protected by the Federal Confidentiality of Alcohol and Drug Abuse Patient Records regulations: The Federal rules restrict any use of the information to criminally investigate or prosecute any alcohol or drug abuse patient.[facility] CenterIn the event this information is protected by the Federal Confidentiality of Alcohol and Drug Abuse Patient Records regulations: The Federal rules restrict any use of the information to criminally investigate or prosecute any alcohol or drug abuse patient.[facility] CenterIn the event this information is protected by the Federal Confidentiality of Alcohol and Drug Abuse Patient Records regulations: The Federal rules restrict any use of the information to criminally investigate or prosecute any alcohol or drug abuse patient.[facility] CenterIn the event this information is protected by the Federal Confidentiality of Alcohol and Drug Abuse Patient Records regulations: The Federal rules restrict any use of the information to criminally investigate or prosecute any alcohol or drug abuse patient.[facility] CenterIn the event this information is protected by the Federal Confidentiality of Alcohol and Drug Abuse Patient Records regulations: The Federal rules restrict any use of the information to criminally investigate or prosecute any alcohol or drug abuse patient.[facility] CenterIn the event this information is protected by the Federal Confidentiality of Alcohol and Drug Abuse Patient Records regulations: The Federal rules restrict any use of the information to criminally investigate or prosecute any alcohol or drug abuse patient.[facility] CenterIn the event this information is protected by the Federal Confidentiality of Alcohol and Drug Abuse Patient Records regulations: The Federal rules restrict any use of the information to criminally investigate or prosecute any alcohol or drug abuse patient.[facility] CenterIn the event this information is protected by the Federal Confidentiality of Alcohol and Drug Abuse Patient Records regulations: The Federal rules restrict any use of the information to criminally investigate or prosecute any alcohol or drug abuse patient.[facility] CenterIn the event this information is protected by the Federal Confidentiality of Alcohol and Drug Abuse Patient Records regulations: The Federal rules restrict any use of the information to criminally investigate or prosecute any alcohol or drug abuse patient.[facility] CenterIn the event this information is protected by the Federal Confidentiality of Alcohol and Drug Abuse Patient Records regulations: The Federal rules restrict any use of the information to criminally investigate or prosecute any alcohol or drug abuse patient.[facility] CenterIn the event this information is protected by the Federal Confidentiality of Alcohol and Drug Abuse Patient Records regulations: The Federal rules restrict any use of the information to criminally investigate or prosecute any alcohol or drug abuse patient.[facility] CenterIn the event this information is protected by the Federal Confidentiality of Alcohol and Drug Abuse Patient Records regulations: The Federal rules restrict any use of the information to criminally investigate or prosecute any alcohol or drug abuse patient.[facility] CenterIn the event this information is protected by the Federal Confidentiality of Alcohol and Drug Abuse Patient Records regulations: The Federal rules restrict any use of the information to criminally investigate or prosecute any alcohol or drug abuse patient.[facility] CenterIn the event this information is protected by the Federal Confidentiality of Alcohol and Drug Abuse Patient Records regulations: The Federal rules restrict any use of the information to criminally investigate or prosecute any alcohol or drug abuse patient.[facility] CenterIn the event this information is protected by the Federal Confidentiality of Alcohol and Drug Abuse Patient Records regulations: The Federal rules restrict any use of the information to criminally investigate or prosecute any alcohol or drug abuse patient.[facility] CenterIn the event this information is protected by the Federal Confidentiality of Alcohol and Drug Abuse Patient Records regulations: The Federal rules restrict any use of the information to criminally investigate or prosecute any alcohol or drug abuse patient.[facility] CenterIn the event this information is protected by the Federal Confidentiality of Alcohol and Drug Abuse Patient Records regulations: The Federal rules restrict any use of the information to criminally investigate or prosecute any alcohol or drug abuse patient.[facility] CenterIn the event this information is protected by the Federal Confidentiality of Alcohol and Drug Abuse Patient Records regulations: The Federal rules restrict any use of the information to criminally investigate or prosecute any alcohol or drug abuse patient.[facility] CenterIn the event this information is protected by the Federal Confidentiality of Alcohol and Drug Abuse Patient Records regulations: The Federal rules restrict any use of the information to criminally investigate or prosecute any alcohol or drug abuse patient.[facility] CenterIn the event this information is protected by the Federal Confidentiality of Alcohol and Drug Abuse Patient Records regulations: The Federal rules restrict any use of the information to criminally investigate or prosecute any alcohol or drug abuse patient.[facility] CenterIn the event this information is protected by the Federal Confidentiality of Alcohol and Drug Abuse Patient Records regulations: The Federal rules restrict any use of the information to criminally investigate or prosecute any alcohol or drug abuse patient.[facility] CenterIn the event this information is protected by the Federal Confidentiality of Alcohol and Drug Abuse Patient Records regulations: The Federal rules restrict any use of the information to criminally investigate or prosecute any alcohol or drug abuse patient.[facility] CenterIn the event this information is protected by the Federal Confidentiality of Alcohol and Drug Abuse Patient Records regulations: The Federal rules restrict any use of the information to criminally investigate or prosecute any alcohol or drug abuse patient.[facility] CenterIn the event this information is protected by the Federal Confidentiality of Alcohol and Drug Abuse Patient Records regulations: The Federal rules restrict any use of the information to criminally investigate or prosecute any alcohol or drug abuse patient.[facility] CenterIn the event this information is protected by the Federal Confidentiality of Alcohol and Drug Abuse Patient Records regulations: The Federal rules restrict any use of the information to criminally investigate or prosecute any alcohol or drug abuse patient.[facility] CenterIn the event this information is protected by the Federal Confidentiality of Alcohol and Drug Abuse Patient Records regulations: The Federal rules restrict any use of the information to criminally investigate or prosecute any alcohol or drug abuse patient.[facility] CenterIn the event this information is protected by the Federal Confidentiality of Alcohol and Drug Abuse Patient Records regulations: The Federal rules restrict any use of the information to criminally investigate or prosecute any alcohol or drug abuse patient.[facility] CenterIn the event this information is protected by the Federal Confidentiality of Alcohol and Drug Abuse Patient Records regulations: The Federal rules restrict any use of the information to criminally investigate or prosecute any alcohol or drug abuse patient.[facility] CenterIn the event this information is protected by the Federal Confidentiality of Alcohol and Drug Abuse Patient Records regulations: The Federal rules restrict any use of the information to criminally investigate or prosecute any alcohol or drug abuse patient.[facility] CenterIn the event this information is protected by the Federal Confidentiality of Alcohol and Drug Abuse Patient Records regulations: The Federal rules restrict any use of the information to criminally investigate or prosecute any alcohol or drug abuse patient.[facility] CenterIn the event this information is protected by the Federal Confidentiality of Alcohol and Drug Abuse Patient Records regulations: The Federal rules restrict any use of the information to criminally investigate or prosecute any alcohol or drug abuse patient.[facility] CenterIn the event this information is protected by the Federal Confidentiality of Alcohol and Drug Abuse Patient Records regulations: The Federal rules restrict any use of the information to criminally investigate or prosecute any alcohol or drug abuse patient.[facility] CenterIn the event this information is protected by the Federal Confidentiality of Alcohol and Drug Abuse Patient Records regulations: The Federal rules restrict any use of the information to criminally investigate or prosecute any alcohol or drug abuse patient.[facility] CenterIn the event this information is protected by the Federal Confidentiality of Alcohol and Drug Abuse Patient Records regulations: The Federal rules restrict any use of the information to criminally investigate or prosecute any alcohol or drug abuse patient.[facility] CenterIn the event this information is protected by the Federal Confidentiality of Alcohol and Drug Abuse Patient Records regulations: The Federal rules restrict any use of the information to criminally investigate or prosecute any alcohol or drug abuse patient.[facility] CenterIn the event this information is protected by the Federal Confidentiality of Alcohol and Drug Abuse Patient Records regulations: The Federal rules restrict any use of the information to criminally investigate or prosecute any alcohol or drug abuse patient.[facility] CenterIn the event this information is protected by the Federal Confidentiality of Alcohol and Drug Abuse Patient Records regulations: The Federal rules restrict any use of the information to criminally investigate or prosecute any alcohol or drug abuse patient.[facility] CenterIn the event this information is protected by the Federal Confidentiality of Alcohol and Drug Abuse Patient Records regulations: The Federal rules restrict any use of the information to criminally investigate or prosecute any alcohol or drug abuse patient.[facility] CenterIn the event this information is protected by the Federal Confidentiality of Alcohol and Drug Abuse Patient Records regulations: The Federal rules restrict any use of the information to criminally investigate or prosecute any alcohol or drug abuse patient.[facility] CenterIn the event this information is protected by the Federal Confidentiality of Alcohol and Drug Abuse Patient Records regulations: The Federal rules restrict any use of the information to criminally investigate or prosecute any alcohol or drug abuse patient.[facility] CenterIn the event this information is protected by the Federal Confidentiality of Alcohol and Drug Abuse Patient Records regulations: The Federal rules restrict any use of the information to criminally investigate or prosecute any alcohol or drug abuse patient.[facility] CenterIn the event this information is protected by the Federal Confidentiality of Alcohol and Drug Abuse Patient Records regulations: The Federal rules restrict any use of the information to criminally investigate or prosecute any alcohol or drug abuse patient.[facility] CenterIn the event this information is protected by the Federal Confidentiality of Alcohol and Drug Abuse Patient Records regulations: The Federal rules restrict any use of the information to criminally investigate or prosecute any alcohol or drug abuse patient.[facility] CenterIn the event this information is protected by the Federal Confidentiality of Alcohol and Drug Abuse Patient Records regulations: The Federal rules restrict any use of the information to criminally investigate or prosecute any alcohol or drug abuse patient.[facility] CenterIn the event this information is protected by the Federal Confidentiality of Alcohol and Drug Abuse Patient Records regulations: The Federal rules restrict any use of the information to criminally investigate or prosecute any alcohol or drug abuse patient.[facility] CenterIn the event this information is protected by the Federal Confidentiality of Alcohol and Drug Abuse Patient Records regulations: The Federal rules restrict any use of the information to criminally investigate or prosecute any alcohol or drug abuse patient.[facility] CenterIn the event this information is protected by the Federal Confidentiality of Alcohol and Drug Abuse Patient Records regulations: The Federal rules restrict any use of the information to criminally investigate or prosecute any alcohol or drug abuse patient.[facility] CenterIn the event this information is protected by the Federal Confidentiality of Alcohol and Drug Abuse Patient Records regulations: The Federal rules restrict any use of the information to criminally investigate or prosecute any alcohol or drug abuse patient.[facility] CenterIn the event this information is protected by the Federal Confidentiality of Alcohol and Drug Abuse Patient Records regulations: The Federal rules restrict any use of the information to criminally investigate or prosecute any alcohol or drug abuse patient.[facility] CenterIn the event this information is protected by the Federal Confidentiality of Alcohol and Drug Abuse Patient Records regulations: The Federal rules restrict any use of the information to criminally investigate or prosecute any alcohol or drug abuse patient.[facility] CenterIn the event this information is protected by the Federal Confidentiality of Alcohol and Drug Abuse Patient Records regulations: The Federal rules restrict any use of the information to criminally investigate or prosecute any alcohol or drug abuse patient.[facility] CenterIn the event this information is protected by the Federal Confidentiality of Alcohol and Drug Abuse Patient Records regulations: The Federal rules restrict any use of the information to criminally investigate or prosecute any alcohol or drug abuse patient.[facility] CenterIn the event this information is protected by the Federal Confidentiality of Alcohol and Drug Abuse Patient Records regulations: The Federal rules restrict any use of the information to criminally investigate or prosecute any alcohol or drug abuse patient.[facility] CenterIn the event this information is protected by the Federal Confidentiality of Alcohol and Drug Abuse Patient Records regulations: The Federal rules restrict any use of the information to criminally investigate or prosecute any alcohol or drug abuse patient.[facility] CenterIn the event this information is protected by the Federal Confidentiality of Alcohol and Drug Abuse Patient Records regulations: The Federal rules restrict any use of the information to criminally investigate or prosecute any alcohol or drug abuse patient.[facility] Reason for Visit (unrecogniz ed section and content) Reason Comments [place] Reason Comments Established Patient 6 month follow up- m ed refill Reason Comments 06-21-2021 Colon [facility] Reason Comments Refill Request Reason Comments Patient Question Reason Comments Prescription Refills Reason Comments Radiology CT Special[facility] Diagnoses / [facility] Diagnoses 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 to the liver (HCC) Lung nodules Procedures CT ABD/PEL W IVCON CT ABD & PELVIS W/CONTRAST Jerry Vallejo, [address] [place] [address] Ct Imaging Referral ID Status Reason Start Date Expiration Date V isits Requested Visits Authorized [id number] Closed Auto-Generate d Referral 03/30/2021 04/29/2022 1 1 Reason Comments Established Patient 3 month follow up- d m Reason Onset Date Comments Refill Request 09/22/2021 Reason Comments Established Patient 6 month follow up Reason Comments Orders Pap Titration order and information Reason Comments Letter Reason Comments Results Reason Comments Blood Draw (CVAD) Reason Comments Established Patient Reason Comments prior authorization Reason Comments Established Patient Diabetic Foot Check Reason Onset Date Comments F/U Diabetes 3 Month Immunizations 12/09/2021 Flu vaccination Reason Onset Date Comments Refill Request 12/13/2021 Reason Comments Spirometry Specialty Diagnoses / Procedures [facility] Diagnoses COPD (chronic obstructive pulmonary disease) with chronic bronchitis (HCC) Procedures SPIROMETRY BASELINE ONLY SPMTRY W/VC EXPIRATORY ROQUE W/WO MXML VOL VNTJ Vi Smart, PA-C [address] [address] [facility] [place] [address] [place] [address] Referral ID Status Reason Start Date Expiration Date V isits Requested Visits Authorized [id number] Closed Auto-Generate d Referral 10/13/2021 11/12/2022 1 1 Specialty Diagnoses / Procedures Referred By [facility] Referred To [facility] Diagnoses COPD (chronic obstructive pulmonary disease) with chronic bronchitis (HCC) Procedures LUNG DIFFUSION CAPACITY (DLCO) DIFFUSING CAPACITY Vi Smart PA-C [address] [place] [address] [facility] [place] [address] [place] [address] Referral ID Status Reason Start Date Expiration Date V isits Requested Visits Authorized [id number] Closed Auto-Generate d Referral 10/13/2021 11/12/2022 1 1 Reason Comments Follow Up chest CT Reason Onset Date Comments Refill Request 01/16/2022 Reason Comments Follow Up 4 month follow up Reason Onset Date Comments Refill Request 03/31/2022 Reason Comments Same Day Appointment headache off and on x 2 months Reason Onset Date Comments Transition Of Care 04/10/2022 D/c [place] on 04/09/22 Initial TCM outreach Reason Comments Hospital F/U double vision,vertig o needs ESR and CRP per Reason Comments C-dif pt update Reason Onset Date Comments Refill Request 04/19/2022 Reason Comments Social Work Services Reason Comments Follow Up Reason Comments Patient Question Reason Onset Date Comments Refill Request 05/09/2022 Reason Comments Mouth/Lip Problem Rash Reason Comments Rash Back of neck x1 week Reason Comments F/U 6 months refills Reason Comments Orders DM shoes Reason Comments Request Outside Medical Records Reason Comments UTI Reason Comments Follow Up EGD Reason Comments Patient Assistance Reason Comments Recheck 3 month DM follow up Reason Comments urine results Reason Comments Allergic Reaction Reason Comments Established Patient Reason Comments 6 month check Reason Comments Patient Update Reason Comments Care Coordination Follow Up Note Reason Comments Established Patient Diabetic foot care Established Patient Reason Onset Date Comments Recheck 3 month follow u p Immunizations 12/11/2022 Flu vaccination Reason Comments Post Menopausal Bleeding Blood In Urine Specialty Diagnoses / Procedures Referred By [facility] t Referred To Contact Gynecology Diagnoses Hematuria, unspecified type Vaginal discharge Vagina bleeding Procedures CONSULT TO GYNECOLOGY OFFICE/OUTPATIENT NEW HIGH MDM 60-74 MINUTES Older, TANIA Devlin.ADMINISTRATIVE PROCESSOR [address] [place] [address] Referral ID Status Reason Start Date Expiration Date Visits Requested Visits Authorized [id number] Pending Review PCP Requested Referral Auto-Generate d Referral 12/11/2022 12/11/2023 1 1 Reason Comments Radiology US Specialty Diagnoses / Procedures Referred By Contac t Referred To Contact US IMAGING Diagnoses Vaginal discharge PMB (postmenopausal bleeding) Procedures US FEMALE PELVIS TRANSVAG US TRANSVAGINAL Danuta Orantes APRN.ADMINISTRATIVE PROCESSOR [address] [place] [address] [place] [address] Referral ID Status Reason Start Date Expiration Date V isits Requested Visits Authorized [id number] Closed Auto-Generate d Referral 12/14/2022 01/13/2024 [address] Specialty Diagnoses / Procedures Referred By Contac t Referred To Contact CT IMAGING Diagnoses Malignant neoplasm of transverse colon (HCC) Metastases to the liver (HCC) Lung nodules Procedures CT CHEST W IVCON DIAGNOSTIC COMPUTED TOMOGRAPHY THORAX W/CONTRAST Geneva Ramos, CASH ANALYST.ADMINISTRATIVE PROCESSOR [address] [place] [address] [place] [address] Referral ID Status Reason Start Date Expiration Date V isits Requested Visits Authorized [id number] Closed Auto-Generate d Referral 10/05/2022 11/04/2023 1 1 Specialty Diagnoses / Procedures Referred By Contac t Referred To Contact CT IMAGING Diagnoses Malignant neoplasm of transverse colon (HCC) Metastases to the liver (HCC) Lung nodules Procedures CT CHEST W IVCON DIAGNOSTIC COMPUTED TOMOGRAPHY THORAX W/CONTRAST Geneva Ramos, CASH ANALYST.ADMINISTRATIVE PROCESSOR [address] [place] [address] [place] [address] Reason Comments CVAD Access Specialty Diagnoses / Procedures Referred By Contac t Referred To Contact CT IMAGING Diagnoses Lung nodules Cancer of transverse colon (HCC) Metastases to the liver (HCC) Procedures CT CHEST W IVCON DIAGNOSTIC COMPUTED TOMOGRAPHY THORAX W/CONTRAST Geneva Ramos, CASH ANALYST.ADMINISTRATIVE PROCESSOR [address] [place] [address] [place] [address] Referral ID Status Reason Start Date Expiration Date V isits Requested Visits Authorized [id number] Closed Auto-Generate d Referral 01/10/2023 02/09/2024 1 1 Reason Comments Orders Reason Comments Recheck 6 month follow up Specialty Diagnoses / Procedures Referred By Contac t Referred To Contact CT IMAGING Diagnoses Cancer of transverse colon (HCC) Lung nodules Metastases to the liver (HCC) Procedures CT CHEST W IVCON DIAGNOSTIC COMPUTED TOMOGRAPHY THORAX W/CONTRAST Geneva Ramos, TANIA.ADMINISTRATIVE PROCESSOR [address] [place] [address] [place] [address] Referral ID Status Reason Start Date Expiration Date V isits Requested Visits Authorized [id number] Closed Auto-Generate d Referral 04/06/2023 05/05/2024 1 1 Specialty Diagnoses / Procedures Referred By Contac t Referred To Contact CT IMAGING Diagnoses Cancer of transverse colon (HCC) Lung nodules Metastases to the liver (HCC) Procedures CT CHEST W IVCON DIAGNOSTIC COMPUTED TOMOGRAPHY THORAX W/CONTRAST Geneva Ramos, CASH ANALYST.ADMINISTRATIVE PROCESSOR [address] [place] [address] [place] [address] Reason Onset Date Comments Refill Request 07/16/2023 Reason Comments Recheck Follow up Reason Comments Referral Request Reason Comments Acute Visit pelvic/vaginal pain Reason Onset Date Comments Community Monitoring Outreach 10/12/2023 Reason Comments Medicare Wellness Exam Annual Medicare W ellness Reason Onset Date Comments Refill Request 10/30/2023 Reason Onset Date Comments Refill Request 11/05/2023 Reason Comments Mammogram Result Call Back Reason Comments Consult Change in bowel habi ts, thinks she may need a colonoscopy. Reason Comments Established Patient Follow Up Referral ID Status Reason Start Date Expiration Date V isits Requested Visits Authorized [id number] Closed Auto-Generate d Referral 10/02/2023 10/31/2024 1 1 Reason Onset Date Comments Refill Request 01/19/2024 Reason Comments Recheck Follow up, abnormal labs from cardiology Reason Comments Consult Breast Consult /calc ifications Reason Comments Radio Imaging Study Comments Reason Comments Mammogram Result Call Back Right Breast Stereo Bx Prone 1 site per ws Reason Comments Recheck 6 month Nodule COPD Reason Comments ER F/U WC 03/09/24 diarrhea; CDIFF Reason Comments Follow Up Reason Onset Date Comments Refill Request 05/20/2024 Reason Comments Recheck 3 month follow up Specialty Diagnoses / Procedures Referred By Dion garay Referred To Contact CT IMAGING Diagnoses Cancer of transverse colon (HCC) Metastases to the liver (HCC) Procedures CT CHEST W IVCON DIAGNOSTIC COMPUTED TOMOGRAPHY THORAX W/CONTRAST Geneva Ramos APRN.MARGO [address] [place] [address] Phone: tel: fax: [place] [phone] Referral ID Status Reason Start Date Expiration Date V isits Requested Visits Authorized [id number] Closed Auto-Generate d Referral 07/09/2024 05/08/2025 1 1 Reason Onset Date Comments Refill Request 08/09/2024 Reason Comments routine 6 mo follow up Reason Onset Date Comments Population Health Navigation Outreach 09/25/2024 [employer] [facility] (unrecognized sec tion and content) Informaticist Relationship Specialty Start Date End Date Yasemin Connors MD [address] [place], [place] [id number] PCP - General Internal Medicine 01/30/17 Rina Holm RN Specialty [employer] Oncology 03/04/20 Informaticist Relationship Specialty Start Date End Date Yasemin Connors MD [address] [place], [place] [id number] PCP - General Internal Medicine 01/30/17 Rina Holm RN Specialty [employer] Oncology 03/04/20 Informaticist Relationship Specialty Start Date End Date Yasemin Connors MD [address] [place], [place] [id number] PCP - General Internal Medicine 01/30/17 Rina Holm RN Specialty [employer] Oncology 03/04/20 Informaticist Relationship Specialty Start Date End Date Yasemin Connors MD [address] [place], [place] [address] PCP - General Internal Medicine 01/30/17 Rina Holm RN Specialty [employer] Oncology 03/04/20 Informaticist Relationship Specialty Start Date End Date Yasemin Connors MD [address] [place] [address] PCP - General Internal Medicine 01/30/17 Rina Holm RN Specialty [employer] Oncology 03/04/20 Informaticist Relationship Specialty Start Date End Date Yasemin Connors MD [address] [facility] [place] [address] PCP - General Internal Medicine 01/30/17 Rina Holm RN Specialty [employer] Oncology 03/04/20 Informaticist Relationship Specialty Start Date End Date Yasemin Connors MD [address] [facility] [place] [address] PCP - General Internal Medicine 01/30/17 Rina Holm RN Specialty [employer] Oncology 03/04/20 Informaticist Relationship Specialty Start Date End Date Yasemin Connors MD [address] [facility] [place] [address] PCP - General Internal Medicine 01/30/17 Rina Holm RN Specialty [employer] Oncology 03/04/20 Informaticist Relationship Specialty Start Date End Date Yasemin Connors MD [address] [facility] [place] [address] PCP - General Internal Medicine 01/30/17 Rina Holm RN Specialty [employer] Oncology 03/04/20 Informaticist Relationship Specialty Start Date End Date Yasemin Connors MD [address] [facility] [place] [address] PCP - General Internal Medicine 01/30/17 Rina Holm RN Specialty [employer] Oncology 03/04/20 Informaticist Relationship Specialty Start Date End Date Yasemin Connors MD [address] [facility] [place] [address] PCP - General Internal Medicine 01/30/17 Rina Holm RN Specialty [employer] Oncology 03/04/20 Informaticist Relationship Specialty Start Date End Date Yasemin Connors MD [address] [facility] [place] [address] PCP - General Internal Medicine 01/30/17 Rina Holm RN Specialty [employer] Oncology 03/04/20 Informaticist Relationship Specialty Start Date End Date Yasemin Connors MD [address] [facility] [place] [address] PCP - General Internal Medicine 01/30/17 Rina Holm RN Specialty [employer] Oncology 03/04/20 Informaticist Relationship Specialty Start Date End Date Yasemin Connors MD [address] [facility] [place] [address] PCP - General Internal Medicine 01/30/17 Rina Holm RN Specialty [employer] Oncology 03/04/20 Informaticist Relationship Specialty Start Date End Date Yasemin Connors MD [address] [facility] [place] [address] PCP - General Internal Medicine 01/30/17 Rina Holm RN Specialty [employer] Oncology 03/04/20 Informaticist Relationship Specialty Start Date End Date Yasemin Connors MD [address] [facility] [place] [address] PCP - General Internal Medicine 01/30/17 Rina Holm RN Specialty [employer] Oncology 03/04/20 Informaticist Relationship Specialty Start Date End Date Yasemin Connors MD [address] [facility] [place] [address] PCP - General Internal Medicine 01/30/17 Rina Holm RN Specialty [employer] Oncology 03/04/20 Informaticist Relationship Specialty Start Date End Date Yasemin Connors MD [address] [facility] [place] [address] PCP - General Internal Medicine 01/30/17 Rina Holm RN Specialty [employer] Oncology 03/04/20 Informaticist Relationship Specialty Start Date End Date Yasemin Connors MD [address] [facility] [place] [address] PCP - General Internal Medicine 01/30/17 Rina Holm RN Specialty [employer] Oncology 03/04/20 Informaticist Relationship Specialty Start Date End Date Yasemin Connors MD [address] [facility] [place] [address] PCP - General Internal Medicine 01/30/17 Rina Holm RN Specialty [employer] Oncology 03/04/20 Informaticist Relationship Specialty Start Date End Date Yasemin Connors MD [address] [facility] [place] [address] PCP - General Internal Medicine 01/30/17 Rina Holm RN Specialty [employer] Oncology 03/04/20 Informaticist Relationship Specialty Start Date End Date Yasemin Connors MD [address] [facility] [place] [address] PCP - General Internal Medicine 01/30/17 Rina Holm RN Specialty [employer] Oncology 03/04/20 Informaticist Relationship Specialty Start Date End Date Yasemin Connors MD [address] [facility] [place] [address] PCP - General Internal Medicine 01/30/17 Rina Holm RN Specialty [employer] Oncology 03/04/20 Informaticist Relationship Specialty Start Date End Date Yasemin Connors MD [address] [facility] [place] [address] PCP - General Internal Medicine 01/30/17 Rina Holm RN Specialty [employer] Oncology 03/04/20 Informaticist Relationship Specialty Start Date End Date Yasemin Connors MD [address] [facility] [place] [address] PCP - General Internal Medicine 01/30/17 Rina Holm RN Specialty [employer] Oncology 03/04/20 Team Status: Active Member Role Status Dates Dr. Yasemin Connors MD Family Provider Active Dr. Yasemin Connors MD Primary Care Provider Active Team Status: Inactive Member Role Status Dates Dr. Yasemin Connors MD Primary Care Provider Active Dr. Skip Christina MD Attending Provider Active Team Status: Inactive Member Role Status Dates Dr. Yasemin Connors MD Primary Care Provider Active Dr. Vi Quevedo MD Emergency Provider Active Informaticist Relationship Specialty Start Date End Date Yasemin Connors MD [address] [facility] [place] [address] PCP - General Internal Medicine 01/30/17 Rina Holm RN Specialty [employer] Oncology 03/04/20 Team Status: Inactive Member Role Status Dates Dr. Yasemin Connors MD Primary Care Provider Active Dr. Vi Quevedo MD Attending Provider, Emergency Provider Active Team Status: Inactive Member Role Status Dates Dr. Yasemin Connors MD Primary Care Provider Active Dr. Laurie Wang MD Attending Provider, Referring Provider Active Informaticist Relationship Specialty Start Date End Date Yasemin Connors MD [address] [facility] [place] [address] PCP - General Internal Medicine 01/30/17 Rina Holm RN Specialty [employer] Oncology 03/04/20 Informaticist Relationship Specialty Start Date End Date Yasemin Connors MD [address] [facility] [place] [address] PCP - General Internal Medicine 01/30/17 Rina Holm RN Specialty [employer] Oncology 03/04/20 Informaticist Relationship Specialty Start Date End Date Yasemin Connors MD [address] [facility] [place] [address] PCP - General Internal Medicine 01/30/17 Rina Holm RN Specialty [employer] Oncology 03/04/20 Leann Rashid RN 04/10/22 05/11/22 Informaticist Relationship Specialty Start Date End Date Yasemin Connors MD [address] [facility] [place] [address] PCP - General Internal Medicine 01/30/17 Rina Holm RN Specialty [employer] Oncology 03/04/20 Leann Rashid, ELAINE 04/10/22 05/11/22 Team Status: Active Member Role Status Dates Dr. Yasemin Connors MD Primary Care Provider Active SLOANE ADRIAN Attending Provider, Referring Provi lucila Active Team Status: Inactive Member Role Status Dates Dr. Yasemin Connors MD Primary Care Provider Active Dr. Luis Angel Smart MD Emergency Provider Active Informaticist Relationship Specialty Start Date End Date Yasemin Connors MD [address] [facility] [place] [address] PCP - General Internal Medicine 01/30/17 Rina Holm RN Specialty [employer] Oncology 03/04/20 Leann Rashid RN 04/10/22 05/11/22 Informaticist Relationship Specialty Start Date End Date Yasemin Connors MD [address] [facility] [place] [address] PCP - General Internal Medicine 01/30/17 Rina Holm RN Specialty [employer] Oncology 03/04/20 Leann Rashid, ELAINE 04/10/22 05/11/22 Informaticist Relationship Specialty Start Date End Date Yasemin Connors MD [address] [facility] [place] [address] PCP - General Internal Medicine 01/30/17 Rina Holm RN Specialty [employer] Oncology 03/04/20 Leann Rashid RN 04/10/22 05/11/22 Team Status: Inactive Member Role Status Dates Dr. Yasemin Connors MD Primary Care Provider Active SLOANE ADRIAN Attending Provider, Referring Provi lucila Active Team Status: Inactive Member Role Status Dates Dr. Yasemin Connors MD Primary Care Provider Active Dr. Luis Angel Smart MD Attending Provider, Emergency Provider Active Informaticist Relationship Specialty Start Date End Date Yasemin Connors MD [address] [facility] [place] [address] PCP - General Internal Medicine 01/30/17 Rina Holm RN Specialty [employer] Oncology 03/04/20 Leann Rashid RN 04/10/22 05/11/22 Informaticist Relationship Specialty Start Date End Date Yasemin Connors MD [address] [facility] [place] [address] PCP - General Internal Medicine 01/30/17 Rina Holm RN Specialty [employer] Oncology 03/04/20 Leann Rashid RN 04/10/22 05/11/22 Informaticist Relationship Specialty Start Date End Date Yasemin Connors MD [address] [facility] [place] [address] PCP - General Internal Medicine 01/30/17 Rina Holm RN Specialty [employer] Oncology 03/04/20 Informaticist Relationship Specialty Start Date End Date Yasemin Connors MD [address] [facility] [place] [address] PCP - General Internal Medicine 01/30/17 Rina Holm RN Specialty [employer] Oncology 03/04/20 Informaticist Relationship Specialty Start Date End Date Yasemin Connors MD [address] [facility] [place] [address] PCP - General Internal Medicine 01/30/17 Rina Holm RN Specialty [employer] Oncology 03/04/20 Informaticist Relationship Specialty Start Date End Date Yasemin Connors MD [address] [facility] [place] [address] PCP - General Internal Medicine 01/30/17 Rina Holm RN Specialty [employer] Oncology 03/04/20 Informaticist Relationship Specialty Start Date End Date Yasemin Connors MD [address] [facility] [place] [address] PCP - General Internal Medicine 01/30/17 Rina Holm RN Specialty [employer] Oncology 03/04/20 Informaticist Relationship Specialty Start Date End Date Yasemin Connors MD [address] [facility] [place] [address] PCP - General Internal Medicine 01/30/17 Rina Holm RN Specialty [employer] Oncology 03/04/20 Informaticist Relationship Specialty Start Date End Date Yasemin Connors MD [address] [place] [address] PCP - General Internal Medicine 01/30/17 Rina Holm RN Specialty [employer] Oncology 03/04/20 Informaticist Relationship Specialty Start Date End Date Yasemin Connors MD [address] [place] [address] PCP - General Internal Medicine 01/30/17 Rina Holm RN Specialty [employer] Oncology 03/04/20 Informaticist Relationship Specialty Start Date End Date Yasemin Connors MD [address] [place] [address] PCP - General Internal Medicine 01/30/17 Rina Holm RN Specialty [employer] Oncology 03/04/20 Informaticist Relationship Specialty Start Date End Date Yasemin Connors MD [address] [facility] [address] PCP - General Internal Medicine 01/30/17 Rina Holm RN Specialty [employer] Oncology 03/04/20 Geneva Ramos, TANIA.ADMINISTRATIVE PROCESSOR [address] [place] [address] Hematology/Oncology 10/05/22 Informaticist Relationship Specialty Start Date End Date Yasemin Connors MD [address] [place] [address] PCP - General Internal Medicine 01/30/17 Rina Holm RN Specialty [employer] Oncology 03/04/20 Geneva Ramos, TANIA.ADMINISTRATIVE PROCESSOR [address] [place] [address] Hematology/Oncology 10/05/22 Informaticist Relationship Specialty Start Date End Date Yasemin Connors MD [address] [place] [address] PCP - General Internal Medicine 01/30/17 Rina Holm, RN Specialty [employer] Oncology 03/04/20 Geneva Ramos, CASH ANALYST.ADMINISTRATIVE PROCESSOR [address] [place] [address] Hematology/Oncology 10/05/22 Informaticist Relationship Specialty Start Date End Date Yasemin Connors MD [address] [place] [address] PCP - General Internal Medicine 01/30/17 Rina Holm RN Specialty [employer] Oncology 03/04/20 Geneva Ramos, CASH ANALYST.ADMINISTRATIVE PROCESSOR [address] [place] [address] Hematology/Oncology 10/05/22 Informaticist Relationship Specialty Start Date End Date Yasemin Connors MD [address] [place] [address] PCP - General Internal Medicine 01/30/17 Rina Holm RN Specialty [employer] Oncology 03/04/20 Geneva Ramos, CASH ANALYST.ADMINISTRATIVE PROCESSOR [address] [place] [address] Hematology/Oncology 10/05/22 Informaticist Relationship Specialty Start Date End Date Yasemin Connors MD [address] [place] [address] PCP - General Internal Medicine 01/30/17 Rina Holm, RN Specialty [employer] Oncology 03/04/20 Geneva Ramos APRN.ADMINISTRATIVE PROCESSOR [address] [place] [address] Hematology/Oncology 10/05/22 Informaticist Relationship Specialty Start Date End Date Yasemin Connors MD [address] [place] [address] PCP - General Internal Medicine 01/30/17 Rina Holm, RN Specialty [employer] Oncology 03/04/20 Geneva Ramos, TANIA.ADMINISTRATIVE PROCESSOR [address] [place] [address] Hematology/Oncology 10/05/22 Informaticist Relationship Specialty Start Date End Date Yasemin Connors MD [address] [place] [address] PCP - General Internal Medicine 01/30/17 Rina Holm RN Specialty [employer] Oncology 03/04/20 Geneva Ramos, TANIA.ADMINISTRATIVE PROCESSOR [address] [place] [address] Hematology/Oncology 10/05/22 Informaticist Relationship Specialty Start Date End Date Yasemin Connors MD [address] [place] [address] PCP - General Internal Medicine 01/30/17 Rina Holm, RN Specialty [employer] Oncology 03/04/20 Geneva Ramos, TANIA.ADMINISTRATIVE PROCESSOR [address] [place] [address] Hematology/Oncology 10/05/22 Informaticist Relationship Specialty Start Date End Date Yasemin Connors MD [address] [facility] [place] [address] PCP - General Internal Medicine 01/30/17 Rina Holm RN Specialty [employer] Oncology 03/04/20 Geneva Ramos, CASH ANALYST.ADMINISTRATIVE PROCESSOR [address] [place] [address] Hematology/Oncology 10/05/22 Informaticist Relationship Specialty Start Date End Date Yasemin Connors MD [address] [place] [address] PCP - General Internal Medicine 01/30/17 Rina Holm RN Specialty [employer] Oncology 03/04/20 Geneva Ramos, CASH ANALYST.ADMINISTRATIVE PROCESSOR [address] [place] [address] Hematology/Oncology 10/05/22 Informaticist Relationship Specialty Start Date End Date Yasemin Connors MD [address] [facility] [place] [address] PCP - General Internal Medicine 01/30/17 Rina Holm RN Specialty [employer] Oncology 03/04/20 Geneva Ramos, CASH ANALYST.ADMINISTRATIVE PROCESSOR [address] [place] [address] Hematology/Oncology 10/05/22 Team Status: Inactive Member Role Status Dates Dr. Yasemin Connors MD Primary Care Provider, Referring Provider Active Rebecca Tovar FITTER TACKER, FITTER TACKER-C Attending Provider Active Team Status: Inactive Member Role Status Dates Dr. Yasemin Connors MD Primary Care Provider Active Dr. Cesilia Brown MD Attending Provider, Referring Pr ovider Active Informaticist Relationship Specialty Start Date End Date Yasemin Connors MD [address] [place] [address] PCP - General Internal Medicine 01/30/17 Rina Holm, RN Specialty [employer] Oncology 03/04/20 Geneva Ramos, CASH ANALYST.ADMINISTRATIVE PROCESSOR [address] [place] [address] Hematology/Oncology 10/05/22 Informaticist Relationship Specialty Start Date End Date Yasemin Connors MD [address] [place] [address] PCP - General Internal Medicine 01/30/17 Rina Holm RN Specialty [employer] Oncology 03/04/20 Geneva Ramos, CASH ANALYST.ADMINISTRATIVE PROCESSOR [address] [place] [address] Hematology/Oncology 10/05/22 Informaticist Relationship Specialty Start Date End Date Yasemin Connors MD [address] [place] [address] PCP - General Internal Medicine 01/30/17 Rina Holm RN Specialty [employer] Oncology 03/04/20 Geneva Ramos, CASH ANALYST.ADMINISTRATIVE PROCESSOR [address] [place] [address] Hematology/Oncology 10/05/22 Informaticist Relationship Specialty Start Date End Date Yasemin Connors MD [address] [place] [address] PCP - General Internal Medicine 01/30/17 Rina Holm RN Specialty [employer] Oncology 03/04/20 Geneva Ramos, CASH ANALYST.ADMINISTRATIVE PROCESSOR [address] [place] [address] Hematology/Oncology 10/05/22 Informaticist Relationship Specialty Start Date End Date Yasemin Connors MD [address] [place] [address] PCP - General Internal Medicine 01/30/17 Rina Holm, RN Specialty [employer] Oncology 03/04/20 Geneva Ramos, CASH ANALYST.ADMINISTRATIVE PROCESSOR [address] [place] [address] Hematology/Oncology 10/05/22 Informaticist Relationship Specialty Start Date End Date Yasemin Connors MD [address] [place] [address] PCP - General Internal Medicine 01/30/17 Rina Holm RN Specialty [employer] Oncology 03/04/20 Geneva Ramos, CASH ANALYST.ADMINISTRATIVE PROCESSOR [address] [place] [address] Hematology/Oncology 10/05/22 Informaticist Relationship Specialty Start Date End Date Yasemin Connors MD [address] [place] [address] PCP - General Internal Medicine 01/30/17 Rina Holm RN Specialty [employer] Oncology 03/04/20 Geneva Ramos, CASH ANALYST.ADMINISTRATIVE PROCESSOR [address] [place] [address] Hematology/Oncology 10/05/22 Informaticist Relationship Specialty Start Date End Date Yasemin Connors MD [address] [place] [address] PCP - General Internal Medicine 01/30/17 Rina Holm, RN Specialty [employer] Oncology 03/04/20 Geneva Ramos APRN.ADMINISTRATIVE PROCESSOR [address] [place] [address] Hematology/Oncology 10/05/22 Informaticist Relationship Specialty Start Date End Date Yasemin Connors MD [address] [place] [address] PCP - General Internal Medicine 01/30/17 Rina Holm, RN Specialty [employer] Oncology 03/04/20 Geneva Ramos, TANIA.ADMINISTRATIVE PROCESSOR [address] [place] [address] Hematology/Oncology 10/05/22 Informaticist Relationship Specialty Start Date End Date Yasemin Connors MD [address] [place] [address] PCP - General Internal Medicine 01/30/17 Rina Holm RN Specialty [employer] Oncology 03/04/20 Geneva Ramos, CASH ANALYST.ADMINISTRATIVE PROCESSOR [address] [place] [address] Hematology/Oncology 10/05/22 Informaticist Relationship Specialty Start Date End Date Yasemin Connors MD [address] [place] [address] PCP - General Internal Medicine 01/30/17 Rina Holm RN Specialty [employer] Oncology 03/04/20 Geneva Ramos, TANIA.ADMINISTRATIVE PROCESSOR [address] [place] [address] Hematology/Oncology 10/05/22 Informaticist Relationship Specialty Start Date End Date Yasemin Connors MD [address] [place] [address] PCP - General Internal Medicine 01/30/17 Rina Holm RN Specialty [employer] Oncology 03/04/20 Geneva Ramos, CASH ANALYST.ADMINISTRATIVE PROCESSOR [address] [place] [address] Hematology/Oncology 10/05/22 Informaticist Relationship Specialty Start Date End Date Yasemin Connors MD [address] [place] [address] PCP - General Internal Medicine 01/30/17 Rina Holm RN Specialty [employer] Oncology 03/04/20 Geneva Ramos, CASH ANALYST.ADMINISTRATIVE PROCESSOR [address] [place] [address] Hematology/Oncology 10/05/22 Informaticist Relationship Specialty Start Date End Date Yasemin Connors MD [address] [place] [address] PCP - General Internal Medicine 01/30/17 Rina Holm RN Specialty [employer] Oncology 03/04/20 Geneva Ramos, CASH ANALYST.ADMINISTRATIVE PROCESSOR [address] [place] [address] Hematology/Oncology 10/05/22 Informaticist Relationship Specialty Start Date End Date Yasemin Connors MD [address] [place] [address] PCP - General Internal Medicine 01/30/17 Rina oHlm RN Specialty [employer] Oncology 03/04/20 Geneva Ramos, CASH ANALYST.ADMINISTRATIVE PROCESSOR [address] [place] [address] Hematology/Oncology 10/05/22 Informaticist Relationship Specialty Start Date End Date Yasemin Connors MD [address] [place] [address] PCP - General Internal Medicine 01/30/17 Rina Holm RN Specialty [employer] Oncology 03/04/20 Geneva Ramos, CASH ANALYST.ADMINISTRATIVE PROCESSOR [address] [place] [address] Hematology/Oncology 10/05/22 Informaticist Relationship Specialty Start Date End Date Yasemin Connors MD [address] [place] [address] PCP - General Internal Medicine 01/30/17 Rina Holm RN Specialty [employer] Oncology 03/04/20 Geneva Ramos, CASH ANALYST.ADMINISTRATIVE PROCESSOR [address] [place] [address] Hematology/Oncology 10/05/22 Informaticist Relationship Specialty Start Date End Date Yasemin Connors MD [address] [place] [address] PCP - General Internal Medicine 01/30/17 Rina Holm, RN Specialty [employer] Oncology 03/04/20 Geneva Ramos, CASH ANALYST.ADMINISTRATIVE PROCESSOR [address] [place] [address] Hematology/Oncology 10/05/22 Estefani Willard CASH ANALYST.ADMINISTRATIVE PROCESSOR [address] [place] [address] Nurse Practitioner Internal Medicine 02/05/23 Informaticist Relationship Specialty Start Date End Date Yasemin Connors MD [address] [place] [address] PCP - General Internal Medicine 01/30/17 Rina Holm RN Specialty [employer] Oncology 03/04/20 Geneva Ramos, CASH ANALYST.ADMINISTRATIVE PROCESSOR [address] [place] [address] Hematology/Oncology 10/05/22 Estefani Willard CASH ANALYST.ADMINISTRATIVE PROCESSOR [address] [place] [address] Nurse Practitioner Internal Medicine 02/05/23 Informaticist Relationship Specialty Start Date End Date Yasemin Connors MD [address] [place] [address] PCP - General Internal Medicine 01/30/17 Rina Holm RN Specialty [employer] Oncology 03/04/20 Geneva Ramos, CASH ANALYST.ADMINISTRATIVE PROCESSOR [address] [place] [address] Hematology/Oncology 10/05/22 Estefani Willard CASH ANALYST.ADMINISTRATIVE PROCESSOR [address] [place] [address] Nurse Practitioner Internal Medicine 02/05/23 Informaticist Relationship Specialty Start Date End Date Yasemin Connors MD [address] [place] [address] PCP - General Internal Medicine 01/30/17 Rina Holm RN Specialty [employer] Oncology 03/04/20 Geneva Ramos APRN.ADMINISTRATIVE PROCESSOR [address] [place] [address] Hematology/Oncology 10/05/22 Estefani Willard APRN.ADMINISTRATIVE PROCESSOR [address] [place] [address] Nurse Practitioner Internal Medicine 02/05/23 Informaticist Relationship Specialty Start Date End Date Yasemin Connors MD [address] [place] [address] PCP - General Internal Medicine 01/30/17 Rina Holm RN Specialty [employer] Oncology 03/04/20 Geneva Ramos APRN.ADMINISTRATIVE PROCESSOR [address] [place] [address] Hematology/Oncology 10/05/22 Estefani Willard APRN.ADMINISTRATIVE PROCESSOR [address] [place] [address] Nurse Practitioner Internal Medicine 02/05/23 Informaticist Relationship Specialty Start Date End Date Yasemin Connors MD [address] [place] [address] PCP - General Internal Medicine 01/30/17 Rina Holm RN Specialty [employer] Oncology 03/04/20 Geneva Ramos APRN.ADMINISTRATIVE PROCESSOR [address] [place] [address] Hematology/Oncology 10/05/22 Estefani Willard APRN.ADMINISTRATIVE PROCESSOR [address] [place] [address] Nurse Practitioner Internal Medicine 02/05/23 Informaticist Relationship Specialty Start Date End Date Yasemin Connors MD [address] [place] [address] PCP - General Internal Medicine 01/30/17 Rina Holm, RN Specialty [employer] Oncology 03/04/20 Geneva Ramos, CASH ANALYST.ADMINISTRATIVE PROCESSOR [address] [place] [address] Hematology/Oncology 10/05/22 Estefani Willard APRN.ADMINISTRATIVE PROCESSOR [address] [place] [address] Nurse Practitioner Internal Medicine 02/05/23 Informaticist Relationship Specialty Start Date End Date Yasemin Connors MD [address] [place] [address] PCP - General Internal Medicine 01/30/17 Rina Holm, RN Specialty [employer] Oncology 03/04/20 Geneva Ramos, CASH ANALYST.ADMINISTRATIVE PROCESSOR [address] [place] [address] Hematology/Oncology 10/05/22 Estefani Willard APRN.ADMINISTRATIVE PROCESSOR [address] [place] [address] Nurse Practitioner Internal Medicine 02/05/23 Leslye Galindo PA-C [address] [place] [address] First Aid Teacher Family Medicine 01/13/24 Estefani Willard APRN.ADMINISTRATIVE PROCESSOR [address] [facility] [place] [address] First Aid Teacher Internal Medicine 01/13/24 Lisa Henderson PA-C [address] [facility] [place] [address] First Aid Teacher Family Medicine 01/13/24 Informaticist Relationship Specialty Start Date End Date Yasemin Connors MD [address] [place] [address] PCP - General Internal Medicine 01/30/17 Rina Holm, ELAINE Specialty [employer] Oncology 03/04/20 Geneva Ramos, CASH ANALYST.ADMINISTRATIVE PROCESSOR [address] [place] [address] Hematology/Oncology 10/05/22 Estefani Willard, CASH ANALYST.ADMINISTRATIVE PROCESSOR [address] [place] [address] Nurse Practitioner Internal Medicine 02/05/23 Leslye Galindo PA-C [address] [place] [address] First Aid Teacher Family Medicine 01/13/24 Estefani Willard, CASH ANALYST.ADMINISTRATIVE PROCESSOR [address] [place] [address] First Aid Teacher Internal Medicine 01/13/24 Lisa eHnderson PA-C [address] [facility] [place] [address] First Aid Teacher Family Medicine 01/13/24 Informaticist Relationship Specialty Start Date End Date Yasemin Connors MD [address] [place] [address] PCP - General Internal Medicine 01/30/17 Rina Holm, RN Specialty [employer] Oncology 03/04/20 Geneva Ramos APRN.ADMINISTRATIVE PROCESSOR [address] [place] [address] Hematology/Oncology 10/05/22 Estefani Willard APRN.ADMINISTRATIVE PROCESSOR [address] [place] [address] Nurse Practitioner Internal Medicine 02/05/23 Leslye Galindo PA-C [address] [place] [address] First Aid Teacher Family Medicine 01/13/24 Estefani Willard APRN.ADMINISTRATIVE PROCESSOR [address] [place] [address] First Aid Teacher Internal Medicine 01/13/24 Lisa Henderson PA-C [address] [place] [address] First Aid Teacher Family Medicine 01/13/24 Informaticist Relationship Specialty Start Date End Date Yasemin Connors MD [address] [place] [address] PCP - General Internal Medicine 01/30/17 Rina Hlom, RN Specialty [employer] Oncology 03/04/20 Geneva Ramos APRN.ADMINISTRATIVE PROCESSOR [address] [place] [address] Hematology/Oncology 10/05/22 Estefani Willard APRN.ADMINISTRATIVE PROCESSOR [address] [place] [address] Nurse Practitioner Internal Medicine 02/05/23 Leslye Galindo PA-C [address] [place] [address] First Aid Teacher Family Medicine 01/13/24 Estefani Willard APRN.ADMINISTRATIVE PROCESSOR [address] [place] [address] First Aid Teacher Internal Medicine 01/13/24 Lisa Henderson PA-C [address] [place] [address] [facility] 01/13/[facility] Informaticist Relationship Specialty Start Date End Date Yasemin Connors MD [address] [place] [address] PCP - General Internal Medicine 01/30/17 Rina Holm, ELAINE Specialty [employer] Oncology 03/04/20 Geneva Ramos APRN.ADMINISTRATIVE PROCESSOR [address] [place] [address] Hematology/Oncology 10/05/22 Estefani Willard APRN.ADMINISTRATIVE PROCESSOR [address] [place] [address] Nurse Practitioner Internal Medicine 02/05/23 Leslye Galindo PA-C [address] [place] [address] First Aid Teacher Family [facility] 01/13/24 Estefani Willard APRN.ADMINISTRATIVE PROCESSOR [address] [place] [address] First Aid Teacher Internal Medicine 01/13/24 Lisa Henderson PA-C [address] [place] [address] First Aid Teacher Family Medicine 01/13/24 Informaticist Relationship Specialty Start Date End Date Yasemin Connors MD [address] [facility] [place] [address] PCP - General Internal Medicine 01/30/17 Rina Holm, RN Specialty [employer] Oncology 03/04/20 Geneva Ramos, CASH ANALYST.ADMINISTRATIVE PROCESSOR [address] [facility] [place] [address] Hematology/Oncology 10/05/22 Estefani Willard APRN.ADMINISTRATIVE PROCESSOR [address] [place] [address] Nurse Practitioner Internal Medicine 02/05/23 Leslye Galindo PA-C [address] [place] [address] First Aid Teacher Family Medicine 01/13/24 Etsefani Willard, CASH ANALYST.ADMINISTRATIVE PROCESSOR [address] [place] [address] First Aid Teacher Internal Medicine 01/13/24 iLsa Henderson PA-C [address] [place] [address] First Aid Teacher Family Medicine 01/13/24 Informaticist Relationship Specialty Start Date End Date Yasemin Connors MD [address] [facility] [place] [address] PCP - General Internal Medicine 01/30/17 Rina Holm, RN Specialty [employer] Oncology 03/04/20 Geneva Ramos APRN.ADMINISTRATIVE PROCESSOR [address] [place] [address] Hematology/Oncology 10/05/22 Estefani Willard APRN.ADMINISTRATIVE PROCESSOR [address] [place] [address] Nurse Practitioner Internal Medicine 02/05/23 Leslye Galindo PA-C [address] [place] [address] First Aid Teacher Family [facility] 01/13/24 Estefani Willard APRN.ADMINISTRATIVE PROCESSOR [address] [place] [address] First Aid Teacher Internal Medicine 01/13/24 Lisa Henderson PA-C [address] [place] [address] [facility] 01/13/24 Informaticist Relationship Specialty Start Date End Date Yasemin Connors MD [address] [place] [address] PCP - General Internal Medicine 01/30/17 Rina Holm, RN Specialty [employer] Oncology 03/04/20 Geneva Ramos APRN.ADMINISTRATIVE PROCESSOR [address] [place] [address] Hematology/Oncology 10/05/22 Estefani Willard APRN.ADMINISTRATIVE PROCESSOR [address] [facility] [place] [address] Nurse Practitioner Internal Medicine 02/05/23 Leslye Galindo PA-C [address] [place] [address] First Aid Teacher [facility] 01/13/24 Estefani Willard APRN.ADMINISTRATIVE PROCESSOR [address] [place] [address] First Aid Teacher Internal Medicine 01/13/24 Lisa Henderson PA-C [address] [place] [address] [facility] 01/13/24 Informaticist Relationship Specialty Start Date End Date Yasemin Connors MD [address] [place] [address] PCP - General Internal Medicine 01/30/17 Rina Holm RN Specialty [employer] Oncology 03/04/20 Geneva Ramos, TANIA.ADMINISTRATIVE PROCESSOR [address] [place] [address] Hematology/Oncology 10/05/22 Estefani Willard APRN.ADMINISTRATIVE PROCESSOR [address] [place] [address] Nurse Practitioner Internal Medicine 02/05/23 Leslye Galindo PA-C [address] [place] [address] [facility] 01/13/24 Estefani Willard APRN.ADMINISTRATIVE PROCESSOR [address] [place] [address] First Aid Teacher Internal Medicine 01/13/24 Lisa Henderson PA-C [address] [facility] [place] [place] [address] First Aid Teacher Family Medicine 01/13/24 Informaticist Relationship Specialty Start Date End Date Yasemin Connors MD [address] [place] [address] PCP - General Internal Medicine 01/30/17 Rina Holm RN Specialty [employer] Oncology 03/04/20 Geneva Ramos, CASH ANALYST.ADMINISTRATIVE PROCESSOR [address] [facility] [place] [address] Hematology/Oncology 10/05/22 Estefani Willard APRN.ADMINISTRATIVE PROCESSOR [address] [facility] [place] [address] Nurse Practitioner Internal Medicine 02/05/23 Leslye Galindo PA-C [address] [place] [address] First Aid Teacher Family Medicine 01/13/24 Estefani Willard APRN.ADMINISTRATIVE PROCESSOR [address] [facility] [address] First Aid Teacher Internal Medicine 01/13/24 Lisa Henderson PA-C [address] [place] [address] First Aid Teacher Family Medicine 01/13/24 Informaticist Relationship Specialty Start Date End Date Yasemin Connors MD [address] [address] PCP - General Internal Medicine 01/30/17 Rina Holm RN Specialty [employer] Oncology 03/04/20 Geneva Ramos, CASH ANALYST.ADMINISTRATIVE PROCESSOR [address] [place] [address] Hematology/Oncology 10/05/22 Estefani Willard APRN.ADMINISTRATIVE PROCESSOR [address] [facility] [place] [address] Nurse Practitioner Internal Medicine 02/05/23 Leslye Galindo PA-C [address] [place], [place] [address] First Aid Teacher Family Medicine 01/13/24 Estefani Willard APRN.ADMINISTRATIVE PROCESSOR [address] [place] [address] First Aid Teacher Internal Medicine 01/13/24 Lisa Henderson PA-C [address] [place] [address] First Aid Teacher [facility] 01/13/24 Informaticist Relationship Specialty Start Date End Date Yasemin Connors MD [address] [place] [address] PCP - General Internal Medicine 01/30/17 Rina Holm, ELAINE Specialty [employer] Oncology 03/04/20 Geneva Ramos APRN.ADMINISTRATIVE PROCESSOR [address] [place] [address] Hematology/Oncology 10/05/22 Estefani Willard APRN.ADMINISTRATIVE PROCESSOR [address] [place] [address] Nurse Practitioner Internal Medicine 02/05/23 Leslye Galindo PA-C [address] [place] [address] First Aid Teacher Family Medicine 01/13/24 Estefani Willard APRN.ADMINISTRATIVE PROCESSOR [address] [facility] [address] First Aid Teacher Internal Medicine 01/13/24 Lisa Henderson PA-C [address] [facility] [place] [address] [facility] Family [facility] 01/13/24 Informaticist Relationship Specialty Start Date End Date Yasemin Connors MD [address] [facility] [place] [address] PCP - General Internal Medicine 01/30/17 Rina Holm RN Specialty [employer] Oncology 03/04/20 Geneva Ramos APRN.ADMINISTRATIVE PROCESSOR [address] [facility] [place] [address] Hematology/Oncology 10/05/22 Estefani Willard APRN.ADMINISTRATIVE PROCESSOR [address] [facility] [place] [address] Nurse Practitioner Internal Medicine 02/05/23 Leslye Galindo PA-C [address] [place] [address] First Aid Teacher Family Medicine 01/13/24 Estefani Willard APRN.ADMINISTRATIVE PROCESSOR [address] [facility] [place] [address] First Aid Teacher Internal Medicine 01/13/24 Lisa Henderson PA-C [address] [place] [address] First Aid Teacher Family Medicine 01/13/24 Informaticist Relationship Specialty Start Date End Date Yasemin Connors MD [address] [place], [place] [address] PCP - General Internal Medicine 01/30/17 Rina Holm, RN Specialty [employer] Oncology 03/04/20 Geneva Ramos, CASH ANALYST.ADMINISTRATIVE PROCESSOR [address] [place] [address] Hematology/Oncology 10/05/22 Estefani Willard APRN.ADMINISTRATIVE PROCESSOR [address] [place] [address] Nurse Practitioner Internal Medicine 02/05/23 Leslye Galindo PA-C [address] [place] [address] First Aid Teacher Family Medicine 01/13/24 Estefani Willard, CASH ANALYST.ADMINISTRATIVE PROCESSOR [address] [place] [address] First Aid Teacher Internal Medicine 01/13/24 Lisa Henderson PA-C [address] [place] [address] First Aid Teacher Family [facility] 01/13/24 Informaticist Relationship Specialty Start Date End Date Yasemin Connors MD [address] [place] [address] PCP - General Internal Medicine 01/30/17 Rina Holm, RN Specialty [employer] Oncology 03/04/20 Geneva Ramos, CASH ANALYST.ADMINISTRATIVE PROCESSOR [address] [place] [address] Hematology/Oncology 10/05/22 Estefani Willard APRN.ADMINISTRATIVE PROCESSOR [address] [place], [place] [address] Nurse Practitioner Internal Medicine 02/05/23 Leslye Galindo PA-C [address] [place] [address] First Aid Teacher Family Medicine 01/13/24 Estefani Willard, CASH ANALYST.ADMINISTRATIVE PROCESSOR [address] [place], [place] [address] First Aid Teacher Internal Medicine 01/13/24 Lisa Henderson PA-C [address] [place], [place] [address] [facility] 01/13/24 Informaticist Relationship Specialty Start Date End Date Yasemin Connors MD [address] [place], [place] [address] PCP - General Internal Medicine 01/30/17 Rina Holm, RN Specialty [employer] Oncology 03/04/20 Geneva Ramos APRN.ADMINISTRATIVE PROCESSOR [address], [place] [address] Hematology/Oncology 10/05/22 Estefani Willard CASH ANALYST.ADMINISTRATIVE PROCESSOR [address] [place], [place] [address] Nurse Practitioner Internal Medicine 02/05/23 Leslye Galindo PA-C [address] [place] [address] First Aid Teacher Family Medicine 01/13/24 Estefani Willard APRN.ADMINISTRATIVE PROCESSOR [address] [facility] [place] [address] Internal Medicine 01/13/24 Lisa Henderson PA-C [address] [facility] [place] [address]31 [facility] 01/13/24 Informaticist Relationship Specialty Start Date End Date Yasemin oCnnors MD [address] [facility] [place] [address] PCP - General Internal Medicine 01/30/17 Rina Holm RN Specialty [employer] Oncology 03/04/20 Geneva Ramos APRN.ADMINISTRATIVE PROCESSOR [address] [facility] [place] [address] Hematology/Oncology 10/05/22 Estefani Willard APRN.ADMINISTRATIVE PROCESSOR [address] [facility] [place] [address] Nurse Practitioner Internal Medicine 02/05/23 Estefani Willard APRN.ADMINISTRATIVE PROCESSOR [address] [facility] [place] [address] [facility] Internal Medicine 01/13/24 Team Status: Active Member Role Status Dates Dr. Yasemin Connors MD Primary Care Provider Active Team Status: Inactive Member Role Status Dates Dr. Yasemin Connors MD Primary Care Provider Active Start: March 09, 2024 End: March 09, 2024 Dr. Luis Angel Haynes DO Attending Provider Active Start: March 09, 2024 End: March 09, 2024 Dr. Luis Angel Haynes DO Emergency Provider Active Start: March 09, 2024 End: March 09, 2024 Team Status: Inactive Member Role Status Dates Dr. Yasemin Connors MD Primary Care Provider Active Start: May 26, 2024 End: May 26, 2024 Dr. Cesilia Brown MD Attending Provider Active Start: May 26, 2024 End: May 26, 2024 Dr. Cesilia Brown MD Referring Provider Active Start: May 26, 2024 End: May 26, 2024 Informaticist Relationship Specialty Start Date End Date Yasemin Connors MD [address] [place] [address] PCP - General Internal Medicine 01/30/17 Rina Holm, RN Specialty [employer] Oncology 03/04/20 Geneva Ramos, CASH ANALYST.ADMINISTRATIVE PROCESSOR [address] [place] [address] Hematology/Oncology 10/05/22 Estefani Willard APRN.ADMINISTRATIVE PROCESSOR [address] [facility] [address] Nurse Practitioner Internal Medicine 02/05/23 Estefani Willard CASH ANALYST.ADMINISTRATIVE PROCESSOR [address] [place] [address] First Aid Teacher Internal Medicine 01/13/24 Informaticist Relationship Specialty Start Date End Date Yasemin Connors MD [address] [place] [address] PCP - General Internal Medicine 01/30/17 Rina Holm RN Specialty [employer] Oncology 03/04/20 Geneva Ramos, CASH ANALYST.ADMINISTRATIVE PROCESSOR [address] [place] [address] Hematology/Oncology 10/05/22 Estefani Willard APRN.ADMINISTRATIVE PROCESSOR [address] [facility] [address] Nurse Practitioner Internal Medicine 02/05/23 Leslye Galindo PA-C [address] [place] [address] First Aid Teacher Family Medicine 01/13/24 04/27/24 Estefani Willard APRN.ADMINISTRATIVE PROCESSOR [address] [place], [place] [address] [facility] Internal Medicine 01/13/24 Lisa Henderson PA-C [address] [place], [place] [address] [facility] 01/13/24 04/27/24 Informaticist Relationship Specialty Start Date End Date Yasemin Connors MD [address] [place] [address] PCP - General Internal Medicine 01/30/17 Rina Holm RN Specialty [employer] Oncology 03/04/20 Geneva Ramos APRN.ADMINISTRATIVE PROCESSOR [address], [place] [address] Hematology/Oncology 10/05/22 Estefani Willard APRN.ADMINISTRATIVE PROCESSOR [address] [place] [address] Nurse Practitioner Internal Medicine 02/05/23 Estefani Willard APRN.ADMINISTRATIVE PROCESSOR [address] [place], [place] [address] [facility] Internal Medicine 01/13/24 Team Status: Inactive Member Role Status Dates Dr. Yasemin Connors MD Primary Care Provider Active Start: July 07, 2024 End: July 07, 2024 ABHISHEK MARIEE Attending Provider Active Start : July 07, 2024 End: July 07, 2024 ABHISHEK MARIEE Referring Provider Active Start : July 07, 2024 End: July 07, 2024 Dr. Laurie Wang MD Other Provider Active St art: July 07, 2024 End: July 07, 2024 Informaticist Relationship Specialty Start Date End Date Yasemin Connors MD [address] [place] [address] PCP - General Internal Medicine 01/30/17 Rina Holm, RN Specialty [employer] Oncology 03/04/20 Geneva Ramos, CASH ANALYST.ADMINISTRATIVE PROCESSOR [address] [place] [address] Hematology/Oncology 10/05/22 Estefani Willard APRN.ADMINISTRATIVE PROCESSOR [address] [facility] [place] [address] Nurse Practitioner Internal Medicine 02/05/23 Estefani Willard APRN.ADMINISTRATIVE PROCESSOR [address] [facility] [address] First Aid Teacher Internal Medicine 01/13/24 Informaticist Relationship Specialty Start Date End Date Yasemin Connors MD [address] [facility] [facility] [place] [address] PCP - General Internal Medicine 01/30/17 Rina Holm, RN Specialty [employer] Oncology 03/04/20 Geneva Ramos, CASH ANALYST.ADMINISTRATIVE PROCESSOR [address] [place] [address] Hematology/Oncology 10/05/22 Estefani Willard APRN.ADMINISTRATIVE PROCESSOR [address] [place] [address] Nurse Practitioner Internal Medicine 02/05/23 Estefani Willard APRN.ADMINISTRATIVE PROCESSOR [address] [place] [address] First Aid Teacher Internal Medicine 01/13/24 Informaticist Relationship Specialty Start Date End Date Yasemin Connors MD [address] [place] [address] PCP - General Internal Medicine 01/30/17 Rina Holm, RN Specialty [employer] Oncology 03/04/20 Geneva Ramos, CASH ANALYST.ADMINISTRATIVE PROCESSOR [address] [place] [address] Hematology/Oncology 10/05/22 Estefani Willard APRN.ADMINISTRATIVE PROCESSOR [address] [place] [address] Nurse Practitioner Internal Medicine 02/05/23 Estefani Willard APRN.ADMINISTRATIVE PROCESSOR [address] [place] [address] First Aid Teacher Internal Medicine 01/13/24 Informaticist Relationship Specialty Start Date End Date Yasemin Connors MD [address] [place] [address] PCP - General Internal Medicine 01/30/17 Rina Holm RN Specialty [employer] Oncology 03/04/20 Geneva Ramos, CASH ANALYST.ADMINISTRATIVE PROCESSOR [address] [place] [address] Hematology/Oncology 10/05/22 Estefani Willard APRN.ADMINISTRATIVE PROCESSOR [address] [place] [address] Nurse Practitioner Internal Medicine 02/05/23 Estefani Willard APRN.ADMINISTRATIVE PROCESSOR [address] [facility] [place] [address] First Aid Teacher Internal Medicine 01/13/24 Informaticist Relationship Specialty Start Date End Date Yasemin Connors MD [address] [facility] [place] [address] PCP - General Internal Medicine 01/30/17 Rina Holm, RN Specialty [employer] Oncology 03/04/20 Geneva Ramos, CASH ANALYST.ADMINISTRATIVE PROCESSOR [address] [facility] [place] [address] Hematology/Oncology 10/05/22 Estefani Willard APRN.ADMINISTRATIVE PROCESSOR [address] [place] [address] Nurse Practitioner Internal Medicine 02/05/23 Leslye Galindo PA-C [address] [place] [address] First Aid Teacher Family Medicine 01/13/24 04/27/24 Estefani Willard, CASH ANALYST.ADMINISTRATIVE PROCESSOR [address] [place] [address] First Aid Teacher Internal Medicine 01/13/24 Lisa Henderson PA-C [address] [place], [place] [id number] First Aid Teacher Family Medicine 01/13/24 04/27/24 Informaticist Relationship Specialty Start Date End Date Yasemin Connors MD [address] [place], [place] [id number] PCP - General Internal Medicine 01/30/17 Rina Holm, RN Specialty [employer] Oncology 03/04/20 Geneva Ramos APRN.ADMINISTRATIVE PROCESSOR [address] [place] [address] Hematology/Oncology 10/05/22 Estefani Willard APRN.ADMINISTRATIVE PROCESSOR [address] [place] [address] Nurse Practitioner Internal Medicine 02/05/23 Estefani Willard APRN.ADMINISTRATIVE PROCESSOR [address] [place] [address] First Aid Teacher Internal Medicine 01/13/24 Informaticist Relationship Specialty Start Date End Date Yasemin Connors MD [address] [place] [address] PCP - General Internal Medicine 01/30/17 Rina Holm, RN Specialty [employer] Oncology 03/04/20 Geneva Ramos, CASH ANALYST.ADMINISTRATIVE PROCESSOR [address] [place] [address] Hematology/Oncology 10/05/22 Estefani Willard APRN.ADMINISTRATIVE PROCESSOR [address] [place] [address] Nurse Practitioner Internal Medicine 02/05/23 Estefani Willard CASH ANALYST.ADMINISTRATIVE PROCESSOR [address] [place] [address] First Aid Teacher Internal Medicine 01/13/24 Informaticist Relationship Specialty Start Date End Date Yasemin Connors MD [address] [place] [address] PCP - General Internal Medicine 01/30/17 Rina Holm, RN Specialty [employer] Oncology 03/04/20 Geneva Ramos APRN.ADMINISTRATIVE PROCESSOR [address] [place], [place] [address] Hematology/Oncology 10/05/22 Estefani Willard APRN.ADMINISTRATIVE PROCESSOR [address] [place], [place] [address] Nurse Practitioner Internal Medicine 02/05/23 Estefani Willard APRN.ADMINISTRATIVE PROCESSOR [address] [place] [address] First Aid Teacher Internal Medicine 01/13/24 Goals (unrecognized section and content) Goals may be documented in a n alternate sectionGoals may be documented in an alternate sectionGoals may be documented in an alternate sectionGoals may be documented in an alternate sectionGoals may be documented in an alternate sectionGoals may be documented in an alternate sectionGoals may be documented in an alternate sectionGoals may be documented in an alternate sectionGoals may be documented in an alternate sectionGoals may be documented in an alternate sectionGoals may be documented in an alternate sectionGoals may be documented in an alternate section FOR RECORDS PERTAINING TO PATIENTS WHO ARE OR HAVE BEEN ENROLLED IN A CHEMICAL DEPENDENCY/SUBSTANCEABUSE PROGRAM, SOME INFORMATION MAY BE OMITTED. This clinical summary was aggregated from multiple sources. Caution should be exercised in using it in the provision of clinical care. This summary normalizes information from multiple sources, and as a consequence, information in this document may materially change the coding, format and clinical context of patient data. In addition, data may be omitted in some cases. CLINICAL DECISIONS SHOULD BE BASED ON THE PRIMARY CLINICAL RECORDS. [facility]. provides no warranty or guarantee of the accuracy or completeness of information in this document.
--- NOTE | 2024-12-27 02:40 | CT_ITS ---
PROCEDURE: CTA CHST, ABD, PEL W AND/OR WO 12/27/2024 REASON FOR EXAM: CHEST/AND PAIN WITH ELEVATED D-DIMER TECHNIQUE: Procedure Code: CTCTA.CHAP.2 Modality: CT Procedure: CTA CHST, ABD, PEL W AND/OR WO Coronal and Sagittal reconstruction series were provided. One or more dose reduction techniques were used (e.g., Automated exposure control, adjustment of the mA and/or kV according to patient size, use of iterative reconstruction technique. CONTRAST: Isovue 370 VOLUME: 100 mL RADIATION DOSE SUMMARY: CTDlvol: 17.77 mGy DLP: 1107 mGycm COMPARISON: Chest radiograph on 12/27/2024. CT scan on 06/29/2022. FINDINGS: 8.7 mm nodule in the left upper lobe, possibly metastatic. Left Port-A-Cath is in good position with its tip in the superior vena cava. Mild pericardial effusion. Bilateral scattered hypodense thyroid nodules are noted with the largest measuring 1 cm. No tracheal narrowing or deviation is seen. Minimal left pleural effusion. Passive atelectatic airspace disease of the left lower lobe. Surgical changes of the right axilla. Bilateral basilar atelectatic pulmonary changes. Mild cardiomegaly. Mild pericardial effusion. Mild hepatomegaly with hepatic steatosis. Prior cholecystectomy. Mildly prominent common bile duct, unchanged. Surgical changes of the colon. 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 Interposition of the small bowels between the colon in the anterior abdominal wall representing a chronic internal hernia without associated acute changes or incarceration. No secondary bowel obstruction. Mild diffuse thickening of the bladder, probably mild cystitis. Mild bilateral fullness of the collecting systems, probably reflux. Normal enhancement of the main pulmonary artery and right and left pulmonary arteries. Normal enhancement of the bilateral peripheral pulmonary arteries. There is no demonstrated pulmonary embolism. Normal thoracic aorta and visualized great vessels. There is no demonstrated aortic dissection. Normal heart and pericardium. Normal mediastinum. Normal hilar regions. Normal visualized trachea and bronchi. Normal spleen. Normal pancreas. Normal bilateral adrenal glands. Normal size of the right kidney. There is no right renal mass. There are no right renal calculi. Normal size of the left kidney. There is no left renal mass. There are no left renal calculi. Normal small intestine. There is no demonstrated peritoneal fluid. Normal abdominal aorta. Normal inferior vena cava. Normal retroperitoneum. There is no pelvic mass lesion or lymphadenopathy. There is no pelvic fluid. CT/CTA Chst, Abd, Pel W and/or WO IMPRESSION: 8.7 mm nodule in the left upper lobe, possibly metastatic. Left Port-A-Cath is in good position with its tip in the superior vena cava. Mild pericardial effusion. Bilateral scattered hypodense thyroid nodules are noted with the largest measur ing 1 cm. No tracheal narrowing or deviation is seen. Minimal left pleural effusion. Passive atelectatic airspace disease of the left lower lobe. Surgical changes of the right axilla. Bilateral basilar atelectatic pulmonary changes. Mild cardiomegaly. Mild pericardial effusion. Mild hepatomegaly with hepatic steatosis. Prior cholecystectomy. Mildly prominent common bile duct, unchanged. Surgical changes of the colon. Chronic omental infarction adjacent to the anterior edge of the left hepatic lo be, unchanged benign chronic finding. Interposition of the small bowels between the colon in the anterior abdominal w all representing a chronic internal hernia without associated acute changes or incarceration. No secondary bowel obstruction. Mild diffuse thickening of the bladder, probably mild cystitis. Mild bilateral fullness of the collecting systems, probably reflux. [facility]
[2024-12-27 02:45] LABS: Troponin T High Sensitivity 7 ng/L (<=14)
[2024-12-27 02:48] LABS: AST(SGOT) 22 U/L (<=31); Alanine Aminotransfer ALT/SGPT 15 U/L (<=34); Albumin, Serum 3.8 g/dL (3.4-4.8); Alkaline Phosphatase 71 U/L (35-104); Anion Gap 11 (5-15); BUN 18 mg/dL (4-19); BUN/Creat Ratio 16.0 RATIO (10-20); Bilirubin, Direct 0.19 mg/dL (0.00-0.30); Calcium,Total 10.0 mg/dL (7.6-11.0); Carbon Dioxide 25.8 mmol/L (21.0-32.0); Chloride 101 mmol/L (98-108); Estimated Creatinine Clearance 48.30 ml/min (50-250); Globulin 3.0 g/dL (2.2-4.2); Glucose 170 mg/dL (70-99); Lipase 8 U/L (13-75); Magnesium 1.8 mg/dL (1.5-2.2); Potassium 4.3 mmol/L (3.3-5.1); Pro- Brain NATRIURETIC PEPTIDE 318 pg/mL (<=1800)
[2024-12-27] MEDS: 0.9% Normal Saline (500mL Bag) 500 ML 999 ML IV (03:13)
[2024-12-27 04:17] LABS: Troponin T High Sens 2 HR 8 ng/L (<=14)
--- NOTE | 2024-12-27 05:50 | EX.ED.DYSGE1 ---
HPI History of Present Illness Chief Complaint: Chest Pain Informant: patient and EMS Narrative Narrative: Patient is a 74-year-old female with past med history of hypertension hyperlipidemia and chronic diastolic heart failure. She states roughly 5 hours ago she was at home when she developed a vague pain around her upper abdomen/chest which then seemed to radiate up towards her neck/face. She states there was no recent trauma or excessive activity. She states that when she developed the pain she felt hot and flushed. However she denies any diaphoresis. She states she was nauseated when the symptoms occurred but denies any vomiting or increased shortness of breath. She states that she was unsure of what was causing the symptoms and felt they would go away with time as she does get recurrent abdominal symptoms from her previous multiple abdominal surgeries but they have not done so in order to make sure this is not cardiac in nature EMS was called and she was brought in for evaluation. Upon arrival to the ER the patient does report spontaneous improvement of symptoms [facility] Medical History Adverse effect of COVID-19 vaccine Colon cancer COPD (chronic obstructive pulmonary disease) Breast cancer Chronic diastolic (congestive) heart failure Hyperlipidemia Chronic low back pain Rheumatoid arthritis Obstructive sleep apnea syndrome Fibromyalgia Gastroesophageal reflux disease Morbid obesity Essential hypertension Type 2 diabetes mellitus CKD (chronic kidney disease), stage III Home Medications Medication Instructions Recorded Last Taken Type cyanocobalamin (vitamin B-12) 1,000 mcg PO DAILY 09/02/15 Unknown History 2,000 mcg tablet acetaminophen 500 mg tablet 1,000 mg PO TID PRN Pain 1-10 Or 10/29/15 Unknown History Fever folic acid 800 mcg tablet 800 mg PO DAILY 05/23/17 Unknown History omega-3 fatty acids-fish oil 340 1 ea PO QHS 05/23/17 05/20/17 History mg-1,000 mg capsule hydroxychloroquine 200 mg tablet 200 mg PO DAILY 10/16/19 Unknown History magnesium oxide 400 mg PO DAILY #90 tabs 10/16/19 Unknown Rx valsartan 160 mg tablet 160 mg PO DAILY 10/16/19 01/16/20 09:30 History 160 MG omeprazole 20 mg capsule,delayed 40 mg PO DAILY 01/14/20 01/16/20 09:30 History release 20 MG insulin lispro 100 unit/mL 1 sliding scale dose subcut 10/20/21 Unknown History subcutaneous solution USEASDIRECTD amlodipine 10 mg tablet 10 mg PO QHS #90 tabs 05/11/22 Unknown Rx metoprolol succinate 50 mg 50 mg PO QHS #90 tabs 05/11/22 Unknown Rx tablet,extended release 24 hr aspirin 81 mg tablet,delayed 81 mg PO DAILY 01/12/23 Unknown History release (Adult Low Dose Aspirin) fenofibrate 54 mg tablet 54 mg PO DAILY #90 tabs 01/12/23 Unknown Rx metformin 500 mg tablet,extended 500 mg PO DAILY 01/12/23 Unknown History release 24 hr amitriptyline 50 mg tablet 50 mg PO QDAY 01/01/24 Unknown History albuterol sulfate 90 mcg/actuation 2 puff inhalation Q4H PRN 01/04/24 Unknown History aerosol inhaler shortness of breath or wheezing cholecalciferol (vitamin D3) 25 25 mcg PO DAILY 01/04/24 Unknown History mcg (1,000 unit) capsule (Vitamin D3) diclofenac sodium 1 % topical gel 1 - 2 ea topical DAILY 01/04/24 Unknown History diclofenac sodium 3 % topical gel 1 applic topical BID 01/04/24 Unknown History ondansetron 4 mg disintegrating 4 mg PO Q8H PRN PRN Nausea #12 tabs 03/09/24 Unknown Rx tablet furosemide 20 mg tablet 20 mg PO DAILY PRN edema #90 tabs 10/07/24 Unknown Rx morphine 15 mg tablet,extended 15 mg PO BID 12/27/24 Unknown History release Allergy/AdvReac Type Severity Reaction Status Date / Time ciprofloxacin (From Cipro) Allergy Rash Verified 12/27/24 01:39 ciprofloxacin HCl (From Allergy Rash Verified 12/27/24 01:39 Cipro) dicyclomine Allergy Rash Verified 12/27/24 01:39 erythromycin base (From Allergy Rash Verified 12/27/24 01:39 E-Mycin) ketoprofen (From Oruvail) Allergy Itching Verified 12/27/24 01:39 loratadine (From Claritin) Allergy Rash Verified 12/27/24 01:39 nabumetone (From Relafen) Allergy Rash Verified 12/27/24 01:39 naproxen Allergy Swelling Verified 12/27/24 01:39 Muamfvk-AZG-TbV Reductase Allergy Itching Verified 12/27/24 01:39 Inhibitor (Uymwxtu-Byu-Dng Reductase Inhibitor) Family History Father Heart disease Myocardial infarction late 50's Mother Cancer Brother Cancer Sister Lupus Surgical History Ablation to lumbar spine (07/2017) History of tubal ligation History of tonsillectomy and adenoidectomy History of lumpectomy of right breast (2010) History of cholecystectomy History of Social History Smoking Status: Never smoker ROS ROS ED Constitutional Constitutional ED: Denies chills, fever(s) or sweats Eyes Eyes: Denies blurry vision or change in vision ENT ENT ED: Denies sore throat Cardiovascular Cardiovascular: Reports chest pain; Denies palpitations or racing heartbeat Respiratory/Chest Respiratory/Chest: Denies cough or dyspnea Gastrointestinal Gastrointestinal: Reports abdominal pain and nausea; Denies diarrhea or vomiting Genitourinary Genitourinary ED: Denies dysuria Musculoskeletal Musculoskeletal: Reports back pain Integumentary Denies rash Neurologic Neurologic: Denies headache(s) Hematologic/Lymphatic Hematologic/Lymphatic: Denies easy bleeding or easy bruising EXAM Physical Exam Const Vital Signs: 12/27/24 01:39 12/27/24 01:45 12/27/24 02:39 Temperature 99.5 F H Temperature Source Oral Pulse Rate 97 Respiratory Rate 18 Respiratory Effort Normal Blood Pressure 157/74 H 167/100 H Blood Pressure Mean 101 122 Pulse Ox 98 Oxygen Delivery Method 12/27/24 03:00 12/27/24 03:15 12/27/24 03:30 Temperature Temperature Source Pulse Rate 83 85 82 Respiratory Rate 24 H 24 H 15 Respiratory Effort Blood Pressure 122/60 H 122/60 H 112/60 Blood Pressure Mean 80 78 75 Pulse Ox 96 95 94 Oxygen Delivery Method Room Air 12/27/24 03:45 12/27/24 04:00 12/27/24 04:15 Temperature Temperature Source Pulse Rate 82 84 84 Respiratory Rate 22 H 25 H 23 H Respiratory Effort Blood Pressure 107/59 L 110/63 Blood Pressure Mean 73 78 Pulse Ox 95 92 93 Oxygen Delivery Method 12/27/24 04:30 12/27/24 04:45 12/27/24 05:00 Temperature Temperature Source Pulse Rate 84 80 80 Respiratory Rate 22 H 29 H 21 H Respiratory Effort Blood Pressure 114/67 117/63 123/61 H Blood Pressure Mean 81 80 80 Pulse Ox 93 92 95 Oxygen Delivery Method 12/27/24 05:15 12/27/24 05:30 Temperature Temperature Source Pulse Rate 78 77 Respiratory Rate 24 H 25 H Respiratory Effort Blood Pressure 112/64 116/63 Blood Pressure Mean 79 78 Pulse Ox 95 96 Oxygen Delivery Method Positive well nourished, well developed and obese General Appearance ED: well developed; Negative for pallor Nutritional Appearance: obese HEENT Reports moist mucous membranes HEENT Narrative: Normocephalic atraumatic No tongue or lip swelling no oral lesions no airway edema or compromise; no secondary findings in the posterior pharynx to suggest infection Eyes PERRL and EOMs intact bilaterally General Eye ED: Negative for scleral icterus Neck supple and no JVD Chest Wall palpation of chest normal Resp normal respiratory effort and clear to auscultation bilaterally Resp Narrative: Breath sounds are diminished throughout but overall clear to auscultation without signs of respiratory distress Cardio regular rate and regular rhythm Rate: other Other Details: Heart is regular rate and rhythm Radial and carotid pulses are equal and symmetric No carotid bruit noted GI non-tender, non-distended and no masses GI Narrative: Abdomen is soft nontender and nondistended with hypoactive bowel sounds No voluntary guarding or rigidity or pulsatile mass No peritoneal signs No increased tympany Auscultation: hypoactive bowel sounds Palpation: soft Extremity Extremity Narrative: +1 pitting edema to the bilateral lower extremities that is equal and symmetric Negative Homans' sign bilaterally Neuro oriented x3, CN's II-XII intact bilaterally and no sensory deficits noted Sensorium / Orientation: alert Motor Exam: strength 5/5 throughout Psych mental status grossly normal Skin no rashes or lesions noted General Skin Exam: Negative for jaundice or pallor MDM MDM MDM Narrative Medical decision making narrative: Patient arrived to the ER hypertensive but otherwise with stable vitals. She reported a nondescript pain around the upper abdomen/chest that radiated towards her neck and back. In order to assess for acute coronary syndrome versus cardiac dysrhythmia versus pulmonary embolus versus dissection versus atypical presentation for pancreatitis or abdominal pathology such as small bowel obstruction or ileus I did elect to perform basic laboratory studies with D-dimer. Labs revealed initial troponin of 7 and a delta troponin of 8 going against acute coronary syndrome. This correlates with her EKG. on a monitoring specialist she did not have any cardiac dysrhythmia changes either. Her D-dimer was elevated for her age at 1.14 and therefore CTA of the chest abdomen and pelvis was performed. This revealed no PE or dissection or abdominal pathology such as pancreatitis or obstruction. On reevaluation her vitals are stabilized and she has reported spontaneous resolution of pain. Therefore with overall negative workup and spontaneous improvement of symptoms I do not feel the need for further evaluation in the ER and she is otherwise safe for discharge. History & Record Review Discussion w/independent historian: EMS personnel and Patient Lab Data Attestation: I reviewed the patient's lab results. Labs: Laboratory Results - last 24 hr 12/27/24 12/27/24 01:50 03:48 WBC 11.7 H RBC 4.19 L Hgb 12.5 Hct 38.1 MCV 90.9 MCH 29.8 MCHC 32.8 RDW Std Deviation 41.6 RDW Coeff of Julianna 12.6 Plt Count 221 MPV 10.5 Immature Gran % (Auto) 0.400 Neut % (Auto) 80.0 H Lymph % (Auto) 8.4 L Gladwin % (Auto) 10.7 H Eos % (Auto) 0.3 Baso % (Auto) 0.2 Absolute Neuts (auto) 9.3 H Absolute Lymphs (auto) 0.98 Nucleated RBC % 0 D-Dimer Quant (PE/DVT) 1.14 H* Sodium 138 Potassium 4.3 Chloride 101 Carbon Dioxide 25.8 Anion Gap 11 BUN 18 Creatinine 1.10 Estim Creat Clear Calc 48.30 L Est GFR (MDRD) Non-Af 52 L BUN/Creatinine Ratio 16.0 Glucose 170 H Calcium 10.0 Magnesium 1.8 Total Bilirubin 0.36 Direct Bilirubin 0.19 AST 22 ALT 15 Alkaline Phosphatase 71 Troponin T High Sens 7 Troponin T Hi Sens 2 Hr 8 NT pro BNP II 318 Total Protein 6.9 Albumin 3.8 Globulin 3.0 Lipase 8 L Radiography Diagnostic Testing: Clinical Impression(s) from Imaging Studies Chest X-Ray 12/27/24 02:12 IMPRESSION: Negative Chest. Reading Location: [id number] Chest/Abdomen/Pelvis CTA 12/27/24 02:40 IMPRESSION: 8.7 mm nodule in the left upper lobe, possibly metastatic. Left Port-A-Cath is in good position with its tip in the superior vena cava. Mild pericardial effusion. Bilateral scattered hypodense thyroid nodules are noted with the largest measuring 1 cm. No tracheal narrowing or deviation is seen. Minimal left pleural effusion. Passive atelectatic airspace disease of the left lower lobe. Surgical changes of the right axilla. Bilateral basilar atelectatic pulmonary changes. Mild cardiomegaly. Mild pericardial effusion. Mild hepatomegaly with hepatic steatosis. Prior cholecystectomy. Mildly prominent common bile duct, unchanged. Surgical changes of the colon. 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 Interposition of the small bowels between the colon in the anterior abdominal wall representing a chronic internal hernia without associated acute changes or incarceration. No secondary bowel obstruction. Mild diffuse thickening of the bladder, probably mild cystitis. Mild bilateral fullness of the collecting systems, probably reflux. Reading Location: [place] [address] Chest x-ray as interpreted by the emergency medicine physician reveals no acute infiltrate pneumothorax or pleural effusion Discharge Plan Triage Chief Complaint: Chest Pain ED Provider: Navneet Jovel Dx/Rx/DC Orders Clinical Impression: Nonspecific chest pain, Essential hypertension, Hyperlipidemia, Chronic diastolic (congestive) heart failure Instructions: ED Chest Pain, Uncertain Cause Prescriptions: No Action valsartan 160 mg tablet 160 mg PO DAILY Patient Comments: TAKE 1 TABLET BY MOUTH EVERY DAY hydroxychloroquine 200 mg tablet 200 mg PO DAILY magnesium oxide 400 mg magnesium tablet 400 mg PO DAILY Qty: 90 4RF insulin lispro 100 unit/mL solution 1 sliding scale dose subcut USEASDIRECTD aspirin [Adult Low Dose Aspirin] 81 mg tablet,delayed release (DR/EC) 81 mg PO DAILY amitriptyline 50 mg tablet 50 mg PO QDAY metformin 500 mg tablet extended release 24 hr 500 mg PO DAILY Patient Comments: DIABETES cyanocobalamin (vitamin B-12) 2,000 MCG tablet 1,000 mcg PO DAILY acetaminophen 500 MG tablet 1,000 mg PO TID PRN (Reason: Pain 1-10 Or Fever) folic acid 0.8 MG tablet 800 mg PO DAILY omega-3 fatty acids-fish oil 1 EACH capsule 1 ea PO QHS omeprazole 20 MG capsule 40 mg PO DAILY cholecalciferol (vitamin D3) [Vitamin D3] 25 mcg (1,000 unit) capsule 25 mcg PO DAILY albuterol sulfate 90 mcg/actuation HFA aerosol inhaler 2 puff inhalation Q4H PRN (Reason: shortness of breath or wheezing) diclofenac sodium 1 % gel 1 - 2 ea topical DAILY diclofenac sodium 3 % gel 1 applic topical BID ondansetron 4 mg tablet,disintegrating 4 mg PO Q8H PRN PRN (Reason: Nausea) Qty: 12 0RF morphine 15 mg tablet extended release 15 mg PO BID amlodipine 10 mg tablet 10 mg PO QHS Qty: 90 3RF metoprolol succinate 50 mg tablet extended release 24 hr 50 mg PO QHS Qty: 90 3RF fenofibrate 54 mg tablet 54 mg PO DAILY Qty: 90 3RF furosemide 20 mg tablet 20 mg PO DAILY PRN (Reason: edema) Qty: 90 3RF Primary Care Provider: Yasemin Carney Referrals: Yasemin Carney MD [Primary Care Provider, Internal Medicine] Activity Restrictions/Additional Instructions: Your workup today revealed no sign of active heart damage or abnormal heart rhythm. The CT scan also showed no sign of blood clot or tear or secondary infection. Please continue all of your home medications as directed by your doctor and follow-up with him/her for repeat evaluation. Return to the ER should you have any further concern Print Language: Iranian Disposition Disposition: Home, Self Care Discharge Date/Time: 12/27/24 05:56
== END 2024-12-27 05:56 | disposition home or self-care (01) ==
PROVIDERS: Emergency Provider Emergency Medicine; PCP Internal Medicine; Visit Provider Emergency Medicine
DX: R07.89 Other chest pain (principal); I13.0 Hypertensive heart and chronic kidney disease with heart failure and stage 1 through stage 4 chronic kidney disease, or unspecified chronic kidney disease; I50.32 Chronic diastolic (congestive) heart failure; J44.9 Chronic obstructive pulmonary disease, unspecified; E11.22 Type 2 diabetes mellitus with diabetic chronic kidney disease; N18.30 Chronic kidney disease, stage 3 unspecified; E78.5 Hyperlipidemia, unspecified
CPT/HCPCS: 71045; 71275; 74174; 80048; 80076; 83690; 83735; 83880; 84484; 85025; 85379; 93005; 96360; 96361; 99285; Q9967; A4216

== ENCOUNTER → 2024-12-30 | Outpatient (CLI) | payer MEDICARE, SELFPAY ==
[2024-12-30 18:00] LABS: AST(SGOT) 19 U/L (<=31); Alanine Aminotransfer ALT/SGPT 12 U/L (<=34); Albumin, Serum 3.5 g/dL (3.4-4.8); Alkaline Phosphatase 65 U/L (35-104); Anion Gap 7 (5-15); BUN 20 mg/dL (4-19); BUN/Creat Ratio 17.9 RATIO (10-20); Calcium,Total 10.1 mg/dL (7.6-11.0); Carbon Dioxide 27.1 mmol/L (21.0-32.0); Chloride 104 mmol/L (98-108); Globulin 3.1 g/dL (2.2-4.2); Glucose 103 mg/dL (70-99); Potassium 4.7 mmol/L (3.3-5.1)
[2024-12-30 18:18] LABS: Hematocrit 35.0 % (37-47); Hemoglobin 11.3 g/dL (12.0-15.0); Immature Granulocytes Count 0.070 X10^3/uL (0.0-0.0); Mean Corp Hgb Conc 32.3 g/dL (32-36); Mean Corpuscular Volume 91.4 fL (81-99); Mean Platelet Vol. 11.4 fl (6.2-12.0); NRBC Flagged by Analyzer 0 % (0-5); Platelet Count 234 K/mm3 (150-450); RBC Distribution Width CV 12.7 % (11.6-14.6); RBC Distribution Width SD 42.3 fl (35.1-43.9); Red Blood Count 3.83 M/mm3 (4.2-5.4); White Blood Count 6.5 K/mm3 (4.4-11.0)
== END | disposition home or self-care (01) ==
LOC: MTLAB 15:54
PROVIDERS: PCP Internal Medicine; Referring Provider Internal Medicine Rheumatology; Visit Provider Internal Medicine Rheumatology
DX: M06.09 Rheumatoid arthritis without rheumatoid factor, multiple sites (principal); Z79.899 Other long term (current) drug therapy; M79.7 Fibromyalgia; M15.9 Polyosteoarthritis, unspecified
CPT/HCPCS: 36415; 80053; 85025

== ENCOUNTER 2025-01-19 11:54 | Emergency (ER) | payer MEDICARE, SELFPAY ==
[2025-01-19 11:54] VITALS: BP 147/79; PULSE 99; RESP 22; TEMP 36.2; O2SAT 97; BMI 37.0
--- NOTE | 2025-01-19 12:15 | EKG12_ITS ---
Test Reason : SOB Blood Pressure : */* mmHG Vent. Rate : 89 BPM Atrial Rate : 89 BPM P-R Int : 230 ms QRS Dur : 98 ms QT Int : 334 ms P-R-T Axes : 28 10 -7 degrees QTcB Int : 406 ms Sinus rhythm with 1st degree A-V block Nonspecific T wave abnormality Abnormal ECG Confirmed by BEE HAMILTON, VINCENT ([id number]), film editor JULIA MAY ([id number]) on 01/20/2025 1:22:01 PM Referred By: SARAH Confirmed By: VINCENT GAMBOA MD
--- NOTE | 2025-01-19 12:17 | ED.VIS.DYS ---
HPI History of Present Illness Chief Complaint: Shortness of Breath Detail of Chief Complaint: Shortness of breath and concern for pericardial effusion Informant: patient Narrative Narrative: Patient brought to the emergency department by her son with concern for pericardial effusion. Patient apparently was seen in the emergency department for some chest discomfort on December 27 at which time she had negative cardiac workup and had a CTA of the chest that showed a small pericardial effusion. She was following up with her cancer specialist and they noted on CT that she had a small pericardial effusion and was instructed come to the ER to be evaluated. Patient also sees cardiology locally and is scheduled to have a stress test in echocardiogram on February 09. Patient denies any significant exertional dyspnea. She did feel slightly short of breath walking in the ER today. Denies chest pain currently. Denies fever or recent illness. [facility] Medical History Adverse effect of COVID-19 vaccine Colon cancer COPD (chronic obstructive pulmonary disease) Breast cancer Chronic diastolic (congestive) heart failure Hyperlipidemia Chronic low back pain Rheumatoid arthritis Obstructive sleep apnea syndrome Fibromyalgia Gastroesophageal reflux disease Morbid obesity Essential hypertension Type 2 diabetes mellitus CKD (chronic kidney disease), stage III Home Medications ?Medication ?Instructions ?Recorded ?Last Taken ?Type cyanocobalamin (vitamin B-12) 2,000 mcg PO DAILY 09/02/15 01/19/25 History 2,000 mcg tablet acetaminophen 500 mg tablet 1,000 mg PO TID PRN Pain 1-10 Or 10/29/15 Unknown History Fever folic acid 800 mcg tablet 800 mg PO DAILY 05/23/17 01/19/25 History omega-3 fatty acids-fish oil 340 1 ea PO QHS 05/23/17 01/18/25 History mg-1,000 mg capsule hydroxychloroquine 200 mg tablet 200 mg PO DAILY 10/16/19 Unknown History valsartan 160 mg tablet 160 mg PO DAILY 10/16/19 01/19/25 History amlodipine 10 mg tablet 10 mg PO QHS #90 tabs 05/11/22 01/18/25 Rx metoprolol succinate 50 mg 50 mg PO QHS #90 tabs 05/11/22 01/18/25 Rx tablet,extended release 24 hr aspirin 81 mg tablet,delayed 81 mg PO DAILY 01/12/23 Unknown History release (Adult Low Dose Aspirin) fenofibrate 54 mg tablet 54 mg PO DAILY #90 tabs 01/12/23 Unknown Rx metformin 500 mg tablet,extended 500 mg PO DAILY 01/12/23 01/19/25 History release 24 hr amitriptyline 50 mg tablet 50 mg PO QDAY 01/01/24 Unknown History albuterol sulfate 90 mcg/actuation 2 puff inhalation Q4H PRN 01/04/24 Unknown History aerosol inhaler shortness of breath or wheezing cholecalciferol (vitamin D3) 25 25 mcg PO DAILY 01/04/24 Unknown History mcg (1,000 unit) capsule (Vitamin D3) diclofenac sodium 3 % topical gel 1 applic topical BID 01/04/24 Unknown History ondansetron 4 mg disintegrating 4 mg PO Q8H PRN PRN Nausea #12 tabs 03/09/24 Unknown Rx tablet furosemide 20 mg tablet 20 mg PO DAILY PRN edema #90 tabs 10/07/24 Unknown Rx morphine 15 mg tablet,extended 15 mg PO BID 12/27/24 01/19/25 History release lactobacillus combination no.9 4 4,000 mmu cells PO DAILY 01/05/25 01/19/25 History billion cell capsule (Adult 50 Plus Probiotic) mirabegron 50 mg tablet,extended 50 mg PO QDAY #90 tabs 01/05/25 01/19/25 Rx release 24 hr (Myrbetriq) insulin lispro 100 unit/mL See Protocol subcut .COMPLEX 01/19/25 01/18/25 History subcutaneous pen magnesium oxide 400 mg (241.3 mg 400 mg PO DAILY 01/19/25 01/18/25 History magnesium) tablet (MagOx) omeprazole 40 mg capsule,delayed 40 mg PO DAILY 01/19/25 01/19/25 History release Allergy/AdvReac Type Severity Reaction Status Date / Time ciprofloxacin (From Cipro) Allergy Rash Verified 01/19/25 11:55 ciprofloxacin HCl (From Allergy Rash Verified 01/19/25 11:55 Cipro) dicyclomine Allergy Rash Verified 01/19/25 11:55 erythromycin base (From Allergy Rash Verified 01/19/25 11:55 E-Mycin) ketoprofen (From Oruvail) Allergy Itching Verified 01/19/25 11:55 loratadine (From Claritin) Allergy Rash Verified 01/19/25 11:55 nabumetone (From Relafen) Allergy Rash Verified 01/19/25 11:55 naproxen Allergy Swelling Verified 01/19/25 11:55 Ginquxw-OCB-FmM Reductase Allergy Itching Verified 01/19/25 11:55 Inhibitor (Dhnwiri-Qyj-Xrz Reductase Inhibitor) Family History Father Heart disease Myocardial infarction late 50's Mother Cancer Brother Cancer Sister Lupus Surgical History Ablation to lumbar spine (07/2017) History of tubal ligation History of tonsillectomy and adenoidectomy History of lumpectomy of right breast (2010) History of cholecystectomy History of Social History Smoking Status: Never smoker ROS ROS ED Review of Systems ROS Unobtainable: other Constitutional Constitutional ED: Reports lethargy; Denies chills, fever(s), sweats or weight loss Eyes Eyes: Denies blurry vision, change in vision or diplopia ENT ENT ED: Denies rhinorrhea or sore throat Cardiovascular Cardiovascular: Denies chest pain, orthopnea or racing heartbeat Respiratory/Chest Respiratory/Chest: Reports dyspnea and dyspnea on exertion; Denies cough, orthopnea or sputum Gastrointestinal Gastrointestinal: Denies abdominal pain, diarrhea, nausea or vomiting Genitourinary Genitourinary ED: Denies dysuria, hematuria or urinary frequency Musculoskeletal Musculoskeletal: Denies arthralgias, back pain, myalgias or neck pain Integumentary Denies abscess, Abrasions or rash Neurologic Neurologic: Denies headache(s) or weakness Psychiatric Psychiatric: Denies anxiety, depression or suicidal thoughts Endocrine Endocrinology: Denies polydipsia, polyphagia or polyuria Hematologic/Lymphatic Hematologic/Lymphatic: Denies easy bleeding, easy bruising or lymphadenopathy Allergic/Immunologic Allergic/Immunologic ED: Denies mouth swelling, tongue swelling or urticaria EXAM Physical Exam Const Vital Signs: 01/19/25 11:54 01/19/25 12:24 01/19/25 12:25 Temperature 97.1 F L Temperature Source Temporal Pulse Rate 99 Respiratory Rate 22 H Respiratory Depth Normal Respiratory Pattern Normal Blood Pressure 147/79 H Blood Pressure Mean 101 Pulse Ox 97 Oxygen Delivery Method Room Air Room Air 01/19/25 12:54 01/19/25 13:00 Temperature Temperature Source Pulse Rate 93 93 Respiratory Rate Respiratory Depth Respiratory Pattern Blood Pressure 150/74 H 150/74 H Blood Pressure Mean 99 99 Pulse Ox Oxygen Delivery Method Positive well nourished and well developed General Appearance ED: well developed and NAD HEENT Reports TM's clear and moist mucous membranes normocephalic and atraumatic; Negative for trauma or tenderness Tympanic Membrane ED: Yes TM's clear Eyes PERRL and EOMs intact bilaterally General Eye ED: Negative for pale conjunctiva or scleral icterus Neck no lymphadenopathy, supple and no JVD General: Negative for tenderness Chest Wall inspection of chest normal and palpation of chest normal Chest: Negative for tenderness Resp normal respiratory effort and clear to auscultation bilaterally Effort and Inspection: Negative for respiratory distress or pain with movement Auscultation: Negative for rhonchi, wheezes or diminished lung sounds Cardio regular rate, regular rhythm, S1 normal heart sound, S2 normal heart sound and no murmurs Peripheral Pulses: pulses 2+ throughout GI normal to inspection, nondistended, normoactive bowel sounds, soft to palpation, non-tender, non-distended and no masses Back/Spine no CVA tenderness and no thoracic nor lumbar tenderness Extremity normal to inspection Extremity Narrative: +1 edema both lower extremities General Extremety ED: Yes edema General Extremity: edema Neuro oriented x3, CN's II-XII intact bilaterally, no sensory deficits noted and gait normal Sensorium / Orientation: awake, alert, oriented to person, oriented to place and oriented to time Motor Exam: strength 5/5 throughout and strength abnormal Psych mental status grossly normal Skin no rashes or lesions noted and no wounds MDM MDM MDM Narrative Medical decision making narrative: Patient presents the emergency department at the request of oncology to evaluate for her pericardial effusion that was diagnosed on CT scan on December 27. At that time she had some chest discomfort. Currently is essentially asymptomatic. She had some minimal emotional dyspnea while coming to the emergency department but prior to that had been feeling well and she feels well otherwise. Patient has scheduled outpatient echocardiogram as well as stress test for February 09. EKG obtained on arrival shows sinus rhythm with first-degree AV block with ventricular rate of [address] changes. CBC with differential obtained showed white count 6.6 with hemoglobin 11 and platelet count of 200. Chemistries were unremarkable. Troponin was normal at 8. BT [employer] was 380. 1 view chest x-ray obtained interpreted by myself as no evidence of infiltrate or pneumothorax or acute disease process. Radiology felt there was either atelectasis or pneumonia in left lung base. Patient has no clinical signs or symptoms of pneumonia and do not think patient has pneumonia. Discussed results with patient and her son. Also discussed with cardiology on-call Dr. Calles who recommended that patient follow-up with their office within the next week. Did not feel she warranted admission and emergent echo. I am in agreement with this as I do not believe the patient has any evidence of tamponade or acute significant process. Patient and her son are comfortable with plan. Lab Data Attestation: I reviewed the patient's lab results. Labs: Laboratory Results - last 24 hr 01/19/25 12:23 WBC 6.6 RBC 3.76 L Hgb 11.0 L Hct 34.6 L MCV 92.0 MCH 29.3 MCHC 31.8 L RDW Std Deviation 43.0 RDW Coeff of [place] 13.0 Plt Count 200 MPV 10.4 Immature Gran % (Auto) 0.800 Neut % (Auto) 71.0 H Lymph % (Auto) 12.7 L [place] % (Auto) 13.7 H Eos % (Auto) 1.2 Baso % (Auto) 0.6 Absolute Neuts (auto) 4.7 Absolute Lymphs (auto) 0.84 Nucleated RBC % 0 Sodium 137 Potassium 4.1 Chloride 104 Carbon Dioxide 25.6 Anion Gap 8 BUN 18 Creatinine 0.92 Estim Creat Clear Calc 57.02 Est GFR (MDRD) Non-Af 65 BUN/Creatinine Ratio 19.9 Glucose 123 H Calcium 10.1 Troponin T High Sens 8 D NT pro BNP II 380 Radiography Diagnostic Testing: Clinical Impression(s) from Imaging Studies Chest X-Ray 01/19/25 12:25 IMPRESSION: Atelectasis or pneumonia in the left lung base. Other findings as noted. Reading Location: [place] [address] Discharge Plan Triage Chief Complaint: Shortness of Breath ED Provider: Wilner Vu Dx/Rx/DC Orders Clinical Impression: Dyspnea, Pericardial effusion Instructions: Treatment for Pericardial Effusion, Understanding Pericardial Effusion, ED Dyspnea Prescriptions: No Action valsartan 160 mg tablet 160 mg PO DAILY Patient Comments: TAKE 1 TABLET BY MOUTH EVERY DAY hydroxychloroquine 200 mg tablet 200 mg PO DAILY aspirin [Adult Low Dose Aspirin] 81 mg tablet,delayed release (DR/EC) 81 mg PO DAILY amitriptyline 50 mg tablet 50 mg PO QDAY Adult 50 Plus Probiotic 4 billion cell capsule 4,000 mmu cells PO DAILY Rx Instructions: administer with a meal mirabegron [Myrbetriq] 50 mg tablet extended release 24 hr 50 mg PO QDAY Qty: 90 3RF metformin 500 mg tablet extended release 24 hr 500 mg PO DAILY Patient Comments: DIABETES cyanocobalamin (vitamin B-12) 2,000 MCG tablet 2,000 mcg PO DAILY acetaminophen 500 MG tablet 1,000 mg PO TID PRN (Reason: Pain 1-10 Or Fever) folic acid 0.8 MG tablet 800 mg PO DAILY omega-3 fatty acids-fish oil 1 EACH capsule 1 ea PO QHS cholecalciferol (vitamin D3) [Vitamin D3] 25 mcg (1,000 unit) capsule 25 mcg PO DAILY albuterol sulfate 90 mcg/actuation HFA aerosol inhaler 2 puff inhalation Q4H PRN (Reason: shortness of breath or wheezing) diclofenac sodium 3 % gel 1 applic topical BID ondansetron 4 mg tablet,disintegrating 4 mg PO Q8H PRN PRN (Reason: Nausea) Qty: 12 0RF morphine 15 mg tablet extended release 15 mg PO BID omeprazole 40 mg capsule,delayed release(DR/EC) 40 mg PO DAILY magnesium oxide [MagOx] 400 mg (241.3 mg magnesium) tablet 400 mg PO DAILY insulin lispro 100 unit/mL insulin pen See Protocol SUBCUT .COMPLEX Protocol: 6. Sliding Scale Insulin Custom Condition: 151-200 Dose/Route: 2 Instruction: DURING CHEMO Condition: 201-250 Dose/Route: 4 Instruction: DURING CHEMO Condition: 251-300 Dose/Route: 6 Instruction: DURING CHEMO Condition: 301-350 Dose/Route: 8 Instruction: DURING CHEMO Condition: 351-400 Dose/Route: 10 Instruction: DURING CHEMO Protocol Text: Custom Sliding Scale Patient Comments: PLEASE SEE ATTACHED FOR DETAILED DIRECTIONS Rx Instructions: subcutaneously DURING CHEMO; amlodipine 10 mg tablet 10 mg PO QHS Qty: 90 3RF metoprolol succinate 50 mg tablet extended release 24 hr 50 mg PO QHS Qty: 90 3RF fenofibrate 54 mg tablet 54 mg PO DAILY Qty: 90 3RF furosemide 20 mg tablet 20 mg PO DAILY PRN (Reason: edema) Qty: 90 3RF Primary Care Provider: Yasemin Carney Referrals: Yasemin Carney MD [Primary Care Provider, Internal Medicine] Shailesh Thompson MD [Med Staff - Active Staff, Cardiology] - 1 Week Activity Restrictions/Additional Instructions: Follow-up with cardiology within the next 5 to 7 days. Print Language: [place] Citizen Disposition Disposition: Home, Self Care
--- NOTE | 2025-01-19 12:25 | RAD_ITS ---
PROCEDURE: CHEST 1 VIEW (PORTABLE) 01/19/2025 REASON FOR EXAM: DYSPNEA TECHNIQUE: Frontal view of the chest. COMPARISON: Portable chest 12/27/2024. FINDINGS: There is questionable airspace consolidation in the left lung base consistent with atelectasis or pneumonia. There is no lobar consolidation or pleural effusion. The heart size is upper limits of normal. There is calcific vascular disease of the thoracic aorta. There is a left subclavian Port-A-Cath. RAD/Chest 1 View (Portable) IMPRESSION: Atelectasis or pneumonia in the left lung base. Other findings as noted. Reading Location: [place] [id number]
[2025-01-19 12:31] LABS: Hematocrit 34.6 % (37-47); Hemoglobin 11.0 g/dL (12.0-15.0); Immature Granulocytes Count 0.050 X10^3/uL (0.0-0.0); Mean Corp Hgb Conc 31.8 g/dL (32-36); Mean Corpuscular Volume 92.0 fL (81-99); Mean Platelet Vol. 10.4 fl (6.2-12.0); NRBC Flagged by Analyzer 0 % (0-5); Platelet Count 200 K/mm3 (150-450); RBC Distribution Width CV 13.0 % (11.6-14.6); RBC Distribution Width SD 43.0 fl (35.1-43.9); Red Blood Count 3.76 M/mm3 (4.2-5.4); White Blood Count 6.6 K/mm3 (4.4-11.0)
[2025-01-19 12:54] VITALS: BP 150/74; PULSE 93
[2025-01-19 12:56] LABS: Anion Gap 8 (5-15); BUN 18 mg/dL (4-19); BUN/Creat Ratio 19.9 RATIO (10-20); Calcium,Total 10.1 mg/dL (7.6-11.0); Carbon Dioxide 25.6 mmol/L (21.0-32.0); Chloride 104 mmol/L (98-108); Estimated Creatinine Clearance 57.02 ml/min (50-250); Glucose 123 mg/dL (70-99); Potassium 4.1 mmol/L (3.3-5.1); Pro- Brain NATRIURETIC PEPTIDE 380 pg/mL (<=1800); Troponin T High Sensitivity 8 ng/L (<=14)
[2025-01-19 13:00] VITALS: BP 150/74; PULSE 93
[2025-01-19 15:12] VITALS: BP 150/74; PULSE 93; RESP 22; TEMP 36.2; O2SAT 97
== END 2025-01-19 15:13 | disposition home or self-care (01) ==
PROVIDERS: Emergency Provider Emergency Medicine; PCP Internal Medicine; Visit Provider Emergency Medicine
DX: R06.00 Dyspnea, unspecified (principal); I50.32 Chronic diastolic (congestive) heart failure; I13.0 Hypertensive heart and chronic kidney disease with heart failure and stage 1 through stage 4 chronic kidney disease, or unspecified chronic kidney disease; J44.9 Chronic obstructive pulmonary disease, unspecified; E11.22 Type 2 diabetes mellitus with diabetic chronic kidney disease; Z79.4 Long term (current) use of insulin; N18.30 Chronic kidney disease, stage 3 unspecified; I31.39 Other pericardial effusion (noninflammatory); E78.5 Hyperlipidemia, unspecified; Z85.038 Personal history of other malignant neoplasm of large intestine; Z85.3 Personal history of malignant neoplasm of breast; Z79.899 Other long term (current) drug therapy; Z79.82 Long term (current) use of aspirin; Z79.84 Long term (current) use of oral hypoglycemic drugs; K21.9 Gastro-esophageal reflux disease without esophagitis; Z98.51 Tubal ligation status; Z90.49 Acquired absence of other specified parts of digestive tract
CPT/HCPCS: 36591; 71045; 80048; 83880; 84484; 85025; 93005; 99284; A4216